=== PATIENT | male | born 1965 | race Caucasian/White ===

== ENCOUNTER 2017-11-21 07:10 | Inpatient (IN) | payer MEDICAID, SELFPAY ==
[2017-11-21] VITALS (30 sets, daily range): BP systolic 102–178; BP diastolic 50–126; PULSE 73–110; RESP 14–24; TEMP 36.2–36.7; O2SAT 95–100; BMI 32.4; BMI 33.5; BMI 33.6; BMI 32.3
--- NOTE | 2017-11-21 07:19 | EKG12_ITS ---
Test Reason : REPEAT-CP Blood Pressure : / mmHG Vent. Rate : 110 BPM Atrial Rate : 110 BPM P-R Int : 156 ms QRS Dur : 086 ms QT Int : 342 ms P-R-T Axes : 049 007 014 degrees QTc Int : 462 ms Sinus tachycardia Otherwise normal ECG Confirmed by MERRITT ANSARI, ETTA ([id number]), subeditor ANDRE DURAN ([id number]) on 11/25/2017 2:25:28 PM Referred By: VISHAL Confirmed By:ETTA BANG MD
--- NOTE | 2017-11-21 07:20 | EKG12_ITS ---
Test Reason : CP Blood Pressure : / mmHG Vent. Rate : 101 BPM Atrial Rate : 101 BPM P-R Int : 168 ms QRS Dur : 088 ms QT Int : 348 ms P-R-T Axes : 063 010 020 degrees QTc Int : 451 ms Sinus tachycardia Otherwise normal ECG Confirmed by MERRITT ANSARI, ETTA ([id number]), state editor ANDRE DURAN ([id number]) on 11/25/2017 2:25:56 PM Referred By: VISHAL Confirmed By:ETTA BANG MD
[2017-11-21] MEDS: 0.9% Normal Saline 1,000 ML 1000 ML IV (07:26)
--- NOTE | 2017-11-21 07:28 | RAD_ITS ---
STUDY: X-RAY CHEST REASON FOR EXAM: Male, 51 years old. Chest pain since last night TECHNIQUE: Single AP portable view of the chest. COMPARISON: None. FINDINGS: There are superimposed monitor leads. There is no demonstrated pneumothorax. The lungs are clear and expanded. There is no demonstrated pleural abnormality. Normal size heart. Normal mediastinum and bud. Normal visualized pulmonary arteries. Normal visualized aortic arch and descending thoracic aorta. Normal visualized thoracic spine. Normal visualized ribs, clavicles, and shoulders. There is no demonstrated abnormality of the visualized soft tissue structures of the upper abdomen. RAD/Chest 1 View (Portable) IMPRESSION: No pulmonary edema, congestive heart failure or confluent pneumonia. Electronically Signed: Fabiola Lund MD at 7:48 EDT , Service support ,
--- NOTE | 2017-11-21 07:32 | ED.VISSUMM ---
- ER Visit Summary Date of Service: 11/21/17 Chief Complaint: Chest pain History of Present Illness: The patient is a [address] Rowdy Davies. He reports that he does not have a primary care physician at this time. Patient reports that 11 PM yesterday while watching TV he had the onset of a left-sided chest pain. Is a continuous sharp pain that is 10 out of 10 in severity. Radiates into his scapula and up into his neck. It it is worsened by laying down or breathing. Is unchanged with exertion. Is relieved by massaging my back. He has been nauseated and short of breath with this. Patient denies any personal or family history of DVT. No recent travel. No ankle swelling or calf pain. Does report that he had 5 or 6 episodes of diarrhea yesterday. No blood in his stools or black tarry stools. Physical Examination: Vitals: Stable. Afebrile. General: Well-nourished and well-developed. Head: Normocephalic atraumatic. Neck: Supple, no lymphadenopathy. No JVD. Nontender. Cardiovascular: Regular rate and rhythm. No murmurs. Respiratory: No respiratory distress. Clear to auscultation bilaterally. Mild tenderness palpation to the left side of his chest that does reproduce his pain. Abdominal: Soft, nontender, nondistended, normal bowel sounds. No guarding, rebound, or peritoneal signs. Back: Nontender. Extremities: Nontender, no edema. Skin: Normal color, no rash. Neurologic: Alert and oriented ?3. Cranial nerves II through XII are intact. Normal strength and sensation. Psych: Normal affect. Test Results: EKG is sinus tachycardia at 101 with half a millimeter of ST elevation in leads I and aVL and V6. This is similar to prior EKGs in 2016 and 2017. He is normal. Chem-7 is more for sodium 134, CO2 20, BUN of 27, creatinine 1.70, glucose 112. Blood alcohol level 0. Troponin is 2.23. Emergency Department Course and Treatment: Patient had taken aspirin at home prior to arrival. He was given a dose of morphine and Zofran IV. He was given a GI cocktail. He was given sublingual nitroglycerin and his pain has improved. Treatment Plan: Patient was discussed with Dr. Martin. He asked that we hold off on giving him heparin or Brilinta at this time. He is going to be taken to the [facility] for further evaluation. Disposition: Admitted in serious condition. Impression: 1. Atypical chest pain. 2. Non-ST elevation PR. 3. STEPHEN score of 2. This note was generated with [employer] dictation software. It may contain incorrect words, spelling, and punctuation that were not noted in review of the chart prior to signing ED Disposition - Plan for ED Patient: Chief Complaint: Chest Pain Referrals: Desmond Tejeda MD [NON-STAFF] -
--- NOTE | 2017-11-21 07:36 | ED.DCSUM_ITS ---
- ER Visit Summary Date of Service: 11/21/17 Chief Complaint: Chest pain History of Present Illness: The patient is a [address] Rowdy Davies. He reports that he does not have a primary care physician at this time. Patient reports that 11 PM yesterday while watching TV he had the onset of a left-sided chest pain. Is a continuous sharp pain that is 10 out of 10 in severity. Radiates into his scapula and up into his neck. It it is worsened by laying down or breathing. Is unchanged with exertion. Is relieved by massaging my back. He has been nauseated and short of breath with this. Patient denies any personal or family history of DVT. No recent travel. No ankle swelling or calf pain. Does report that he had 5 or 6 episodes of diarrhea yesterday. No blood in his stools or black tarry stools. Physical Examination: Vitals: Stable. Afebrile. General: Well-nourished and well-developed. Head: Normocephalic atraumatic. Neck: Supple, no lymphadenopathy. No JVD. Nontender. Cardiovascular: Regular rate and rhythm. No murmurs. Respiratory: No respiratory distress. Clear to auscultation bilaterally. Mild tenderness palpation to the left side of his chest that does reproduce his pain. Abdominal: Soft, nontender, nondistended, normal bowel sounds. No guarding, rebound, or peritoneal signs. Back: Nontender. Extremities: Nontender, no edema. Skin: Normal color, no rash. Neurologic: Alert and oriented ?3. Cranial nerves II through XII are intact. Normal strength and sensation. Psych: Normal affect. Test Results: EKG is sinus tachycardia at 101 with half a millimeter of ST elevation in leads I and aVL and V6. This is similar to prior EKGs in 2016 and 2017. He is normal. Chem-7 is more for sodium 134, CO2 20, BUN of 27, creatinine 1.70, glucose 112. Blood alcohol level 0. Troponin is 2.23. Emergency Department Course and Treatment: Patient had taken aspirin at home prior to arrival. He was given a dose of morphine and Zofran IV. He was given a GI cocktail. He was given sublingual nitroglycerin and his pain has improved. Treatment Plan: Patient was discussed with Dr. Martin. He asked that we hold off on giving him heparin or Brilinta at this time. He is going to be taken to the [facility] for further evaluation. Disposition: Admitted in serious condition. Impression: 1. Atypical chest pain. 2. Non-ST elevation ME. 3. STEPHEN score of 2. This note was generated with [employer] dictation software. It may contain incorrect words, spelling, and punctuation that were not noted in review of the chart prior to signing ED Disposition - Plan for ED Patient: Chief Complaint: Chest Pain Referrals: Desmond Tejeda MD [NON-STAFF] -
[2017-11-21] MEDS: Morphine 4 MG/ML Syringe IV (07:39)
[2017-11-21] MEDS: Ondansetron 4 MG/2 ML Vial IV (07:39)
[2017-11-21 07:41] LABS: Absolute Lymphocyte Count 2.51 X10^3/ul (0.83-4.51); Absolute Neutrophil Count 5.6 X10^3/uL (2.0-7.7); Basophil# 0.02 X10^3/uL; Basophil% 0.2 % (0-1); Eosinophil# 0.17 X10^3/uL; Eosinophils% 1.9 % (0-5); Lymphocyte # 2.51 X10^3/ul (4.0); Lymphocyte % 27.5 % (19-41); Mean Platelet Vol. 9.5 fl (6.2-12.0); Monocyte# 0.79 X10^3/uL; Monocyte% 8.6 % (0-10); Neutrophil # 5.63 X10^3/uL (2.7-7.7); Neutrophil % 61.6 % (47-70); POSITIVE COUNT NO; POSITIVE DIFFERENTIAL NO; POSITIVE MORPHOLOGY NO; Platelet Count 228 K/mm3 (150-450); RBC Distribution Width CV 12.4 % (11.6-14.6); Red Blood Count 5.23 M/mm3 (4.6-6.2); White Blood Count 9.1 K/mm3 (4.4-11.0)
[2017-11-21 07:42] LABS: Hemoglobin 15.8 g/dl (13.0-16.5); Mean Corp Hgb Conc 35.1 g/gl (32-36); Mean Corpuscular Hgb 30.2 pg (27.0-32.0)
--- NOTE | 2017-11-21 07:42 | ED.RN ---
PT STATES HE TOOK [address] RODGERS NOTIFIED AND INSTRUCTED TO NOT GIVE ORDERED DOSE/
--- NOTE | 2017-11-21 07:52 | ED.RN ---
LAB CALLED TROPON[facility] 2.230. DR MARIN
[2017-11-21 07:53] LABS: Alcohol, Blood (Medical)-Serum < 3.0 mg/dL; Anion Gap 11 (5-15); BUN 27 mg/dL (7-18); BUN/Creat Ratio 15.9 RATIO (10-20); Calcium,Total 9.5 mg/dL (8.5-10.1); Chloride 103 mmol/L (98-107); EST Glomerular Filtration Rate 45 mL/min (>60); Est Glom Filt Rate - Afr Amer 55 mL/min (>60); Estimated Creatinine Clearance 53.68 ml/min; Glucose 112 mg/dL (74-106); Potassium 4.2 mmol/L (3.5-5.1); Sodium Level 134 mmol/L (136-145)
[2017-11-21 08:10] LABS: Erythrocyte Sedimentation Rate 13 mm/hr (0-20)
[2017-11-21 08:37] LABS: D-Dimer Quantitative (DVT/PE) < 0.27 FEU/ug/m (0.27-0.49)
--- NOTE | 2017-11-21 09:37 | CL.I_ITS ---
Patient Name: BETHANY MONTALVO Study Date: 11/21/2017 Performing: Chris Martin MD Ht: 70.07 inches 178 cm : 1965 Wt: 227.08 lbs 103 kg Age: 51 Gender: male BSA: 2.2 PROCEDURE(S) PERFORMED UT83-YQS/COR/LV IK36-MGU W OR WO PTCA, SINGLE CORONARY ARTERY CLINICAL PROFILE AND CO-MORBIDITIES Patient presents with NSTEMI for urgent cardiac cath Indications: ACS <= 24 hrs, Worsening Angina, Suspected CAD Heart Failure: None Stress/Imaging Stress/Image Study Performed: No Angina Classification Anginal Classification w/in 2 Weeks: No symptoms CAD Presentations: Unstable angina. Non-STEMI. Symptom onset Date/Time: 11/20/2017 22:00:00 Time Estimated Comorbidities/Risk Factors: Hypertension Dyslipidemia Family History of Premature CAD CONCLUSIONS Single vessel CAD of the occluded LCX most likely source of pt's chest pain. Normal LV size, wall motion,and systolic function Elevated Left Ventricular End Diastolic Pressure Successful PTCA/JUSTIN of the of occluded mid LCX with thrombectomy; utilizing a 2.5 x 12 Promus Synergy stent; 100%-->0%, no dissection. Pt had delayed presentation of chest pain with symptoms more c/w pericarditis. ST elevation on prese nting ECG was diffuse and did not reach criteria for STEMI alert. No reciprical changes on ECG. RECOMMENDATIONS Referred for immediate PCI Highly recommend quitting all tobacco products Follow up with primary deck mechanic Risk factor modification ASA Indefinitley Plavix for at least 12 months Routine post interventional care Refer for Outpatient Cardiac Rehab Manual sheath removal per protocol Follow up with Dr. Mario Becker for at least 12 months DESCRIPTION OF PROCEDURE The patient arrived to the procedure lab. The risks and benefits of the procedure as well as a full d escription of our services here and lack of surgical backup were fully explained to the patient and/o r their significant other prior to the catheterization. The Timeout was completed, verifying the ignacia ect patient and procedure. The patient's procedural site was prepped and draped in the usual fashion. Local anesthetic was given subcutaneously to right groin region with Lidocaine 2%. Using a modified Seldinger technique, arterial access was obtained via the right femoral artery, a 4Fr sheath was inse rted. Left Coronary Artery selective angiography was performed in multiple views using a 4 Fr. JL5 c atheter. Right Coronary Artery selective angiography was then performed in multiple views using a 4 F r. 3DRC catheter. Left Ventriculography was performed in OCAMPO projection using a 4 Fr. Pigtail cathete r. LV to AO pullback pressures were then recordedThe images were reviewed and options discussed. A de cision was then made to proceed with an Intervention, IVUS or other adjunct procedure. Arterial sheath was exchanged for a 6 Fr Sheath EBU 3.75 Guide catheter was inserted and engaged into the LCA. Runthrough Guide wire was advanced to the Circumflex. [place] AP inserted Pass # 1 [place] AP Removed PTCA balloon inflated at 8 atms for 10 secs Angiogram performed post balloon dilatation. Ang iogram performed post stent deployment.. Contrast was injected through the sheath and the Right Iliac and Femoral artery were assessed for possible closure device.. The arterial sheath was pulled and a Mynx closure device was deployed for hemostasis. CORONARY ANGIOGRAPHY DOMINANCE: Right Dominant LEFT HEART ASSESSMENT Left Ventricular Ejection Fraction: by LV Gram 60 % Normal Left Ventricular systolic function Elevated Left Ventricular End Diastolic Pressure Normal LV wall motion LEFT MAIN: Angiographically normal LEFT ANTERIOR DECENDING ARTERY: Mild luminal irregularities less than 30% CIRCUMFLEX ARTERY: MID CIRC: is occluded RIGHT CORONARY ARTERY: No significant disease noted INTERVENTION INFORMATION LESION SITE: Circumflex (Mid) Lesion Complexity: High/C, lesion at bifurcation: No, thrombus present: Yes, lesion length: 12 mm, cu lprit lesion: Yes Pre Stenosis: 100 % Pre intervention STEPHEN flow: 0 PROCEDURE: Thrombectomy, Drug Eluting Stent with pre dilatation. Post Stenosis: 0 % Post intervention STEPHEN flow: 3 Lesion Devices: Terumo .014 Runthrough Extra Floppy 180cm straight Medtronic 6 Fr EBU3.75 100cm Guide Catheter Medtronic 6 Fr. [place] AP Aspiration Catheter Ki Sci EMERGE MR 2.00x08 BALLOON Ki Sci Synergy MR JUSTIN 2.50x12 COMPLICATIONS No Complications PROCEDURE MEDICATIONS Oxygen: 2 L/min via nasal cannula Brilinta 180 mg PO @ 11/21/2017 08:53:52 Heparin 6000 unit(s) IV 11/21/2017 08:53:45 Nitro 200 mcg IC 11/21/2017 08:59:17 Nitro 200 mcg IC 11/21/2017 08:59:17 IV Bolus: .9 NaCl 700 ml total 11/21/2017 09:19:23 IV Fluids: .9 NaCl increased to WO ml/hr 11/21/2017 08:48:19 IV Fluids: .9 NaCl decreased to 150 ml/hr 11/21/2017 09:19:36 SUMMARY OF HEMODYNAMIC DATA Time AIR REST ECG 08:36:31 AO 89/70 (78) SA 08:47:33 AO 111/78 (93) 08:55:13 LV 133/-11, 24 09:10:38 LV 133/-13, 21 09:10:45 LVp 134/-11, 23 09:10:52 AOp 118/72 (91) 09:10:58 Signed By Chris Martin MD On 11/21/2017 09:36:56 Chris Martin MD
[2017-11-21 09:51] LABS: ACT Activated Clotting Time 202 sec (74-137)
--- NOTE | 2017-11-21 09:56 | EKG12_ITS ---
Test Reason : Blood Pressure : / mmHG Vent. Rate : 092 BPM Atrial Rate : 092 BPM P-R Int : 156 ms QRS Dur : 084 ms QT Int : 368 ms P-R-T Axes : 047 -08 016 degrees QTc Int : 455 ms Normal sinus rhythm Inferior infarct , age undetermined Abnormal ECG Confirmed by MERRITT ANSARI, ETTA ([id number]), editor book ANDRE DURAN ([id number]) on 11/25/2017 2:39:30 PM Referred By: AKBAR Confirmed By:ETTA BANG MD
[2017-11-21 10:09] LABS: Hematocrit 39.3 % (40-54); Hemoglobin 13.6 g/dl (13.0-16.5); Mean Corp Hgb Conc 34.6 g/gl (32-36); Mean Corpuscular Hgb 30.6 pg (27.0-32.0); Mean Corpuscular Volume 88.3 fL (80-94); Mean Platelet Vol. 9.4 fl (6.2-12.0); Platelet Count 117 K/mm3 (150-450); RBC Distribution Width CV 12.7 % (11.6-14.6); RBC Distribution Width SD 40.8 fl (35.1-43.9); Red Blood Count 4.45 M/mm3 (4.6-6.2); White Blood Count 10.2 K/mm3 (4.4-11.0)
[2017-11-21 10:11] LABS: Scan Indicated on CBC? Y/N NO
[2017-11-21 10:41] LABS: CPK Total, Creatine Kinase 1763 U/L (39-308)
[2017-11-21] MEDS: TICAGRELOR 90 MG TABLET 180 MG PO (10:57)
--- NOTE | 2017-11-21 12:45 | CRPHASE1 ---
Patient Data/Charges Contract Administration Coordinator:: Chris Martin Refer Phase II:: Yes Admit Date:: 11/21/17 Phase II Referral:: [facility] Start Phase II:: after follow up with Contract Administration Coordinator in office Phase I Charge:: Level I - Education Risk Factors/Lifestyle Smoking Status: Current every day smoker Hx Hypertension: Yes Hx Diabetes Mellitus Type 1: No Hx Diabetes Mellitus Type 2: No Hx Metabolic Disorders: Yes Hx Obesity: Yes Height: 1.78 m Weight:: 102.058 kg BMI: 32.3 Stress: Recent, Work-related ETOH: Yes Risk Factor for Sedentary Lifestyle: Highest Risk Family History: Heart Disease Phase I Education Given On:: [place], Nutrition, Antiplatelet medication, CHF, Smoking cessation Issues Affecting Care:: None Knowledge of Condition:: Yes Learning Preferences: Verbal, Written, Audio/Visual, Demonstration Hospital Course Presenting Symptoms:: Left chest, shoulder ache/pain. Medical/Surgical History Hypertension:: Yes Dyslipidemia:: Yes
--- NOTE | 2017-11-21 12:51 | CRPHASE1_ITS ---
Patient Data/Charges Clinical Biostatistics Director:: Chris Martin Refer Phase II:: Yes Admit Date:: 11/21/17 Phase II Referral:: [facility] Start Phase II:: after follow up with Clinical Biostatistics Director in office Phase I Charge:: Level I - Education Risk Factors/Lifestyle Smoking Status: Current every day smoker Hx Hypertension: Yes Hx Diabetes Mellitus Type 1: No Hx Diabetes Mellitus Type 2: No Hx Metabolic Disorders: Yes Hx Obesity: Yes Height: 1.78 m Weight:: 102.058 kg BMI: 32.3 Stress: Recent, Work-related ETOH: Yes Risk Factor for Sedentary Lifestyle: Highest Risk Family History: Heart Disease Phase I Education Given On:: [place], Nutrition, Antiplatelet medication, CHF, Smoking cessation Issues Affecting Care:: None Knowledge of Condition:: Yes Learning Preferences: Verbal, Written, Audio/Visual, Demonstration Hospital Course Presenting Symptoms:: Left chest, shoulder ache/pain. Medical/Surgical History Hypertension:: Yes Dyslipidemia:: Yes
--- NOTE | 2017-11-21 12:53 | CRPH1.INST_ITS ---
General Education CAD and cardiac anatomy and function:: Patient communicates acknowledgment, Needs reinforcement Explanation of diagnoses and procedures:: Patient communicates acknowledgment, Needs reinforcement Sign/Symptoms of LA:: Patient communicates acknowledgment, Needs reinforcement Antiplatelet therapy: Patient communicates acknowledgment, Needs reinforcement Proper use of NTG-SL: Patient communicates acknowledgment, Needs reinforcement Emergency procedures and activation of EMS: Patient communicates acknowledgment , Needs reinforcement Compliance of all prescribed medications: Patient communicates acknowledgment, Needs reinforcement Smoking Patient Nicotine/Smoking Risk Factors Are:: Cigarettes Recommendations Include:: Smoking cessation strategies/Smoking packet, Second- hand smoke recommendation, Participation in a smoking cessation program Nicotine/Smoking Response Code:: Patient communicates acknowledgment, Needs reinforcement Dyslipidemia Patient Dyslipidemia Risk Factors Are:: Total Cholesterol, Triglycerides, HDL, LDL Recommendations Include:: Lipid profile not available, Reviewed NCEP/ATP guidelines, Therapeutic Lifestyle Change dietary guidelines Dyslipidemia Response Code:: Patient communicates acknowledgment, Needs reinforcement Overweight/Obesity Patient Overweight/Obesity Risk Factors Are:: Obesity - > or = 30 Recommendations Include:: Weight loss of 5-10%, Reduced calorie diet, Exercise 5 -7 times/week Overweight/Obesity:: Patient communicates acknowledgment, Needs reinforcement Hypertension Recommendations Include:: Maintain BP <130/85, DASH dietary guidelines, Decrease /maintain normal body weight, Moderation of ETOH Hypertension:: Patient communicates acknowledgment, Needs reinforcement Heart Disease Patient Heart Disease Risk Factors Are:: Family history of heart disease < 65 years old Recommendations Include:: Educated family members of their risk, Educated family members of importance of prevention of heart disease Heart Disease Response Code:: Patient communicates acknowledgment, Needs reinforcement Diabetes Patient Diabetes Risk Factors Are:: No documented hx of diabetes Metabolic Syndrome Patient Metabolic Syndrome Risk Factors Are [3 of 5]:: Waist circumference > 35 [female] or 40 [male], High triglyceride >150, Hypertension, Low HDL <40 [ male] or < 50 [female] Recommendations Include:: Reinforce compliance to risk factor modifications, Encouraged follow-up with Primary Care Physician Metabolic Syndrome Response Code:: Patient communicates acknowledgment, Needs reinforcement Sedentary Patient Sedentary Risk Factors Are:: Lack of regular exercise Recommendations Include:: Aerobic exercise 5-7 times/week for 20-30 minutes continuously, Benefits of regular exercise, Discussed home walking program, Monitored Outpatient Cardiac Rehab Sedentary Response Code:: Patient communicates acknowledgment, Needs reinforcement Stress Recommendations Include:: Identification of stressors, and assessment of coping skills, Stress management techniques Stress Response Code:: Patient communicates acknowledgment, Needs reinforcement
--- NOTE | 2017-11-21 13:03 | HP.PCM_ITS ---
Problem List (1) NSTEMI (non-ST elevated myocardial infarction) Status: Acute (2) Obesity (BMI 30.0-34.9) Status: Chronic (3) Hyperlipidemia Status: Chronic Qualifiers: Hyperlipidemia type: unspecified Qualified Code(s): E78.5 - Hyperlipidemia , unspecified (4) Hypertension Status: Chronic Qualifiers: Hypertension type: essential hypertension Qualified Code(s): I10 - Essential (primary) hypertension (5) Chest pain Status: Acute Qualifiers: Chest pain type: unspecified Qualified Code(s): R07.9 - Chest pain, unspecified (6) Depression Status: Chronic Qualifiers: Depression Type: unspecified Qualified Code(s): F32.9 - Major depressive disorder, single episode, unspecified History of Present Illness Date of Admission: 11/21/17 Chief Complaint: Chest pain - 1 day The patient is a 51 year old male with past medical history of hypertension, hyperlipidemia, positive family history of CAD(mother, father, brother), depression comes in with complaints of chest pain since the night before admission. Patient states he was in his usual state of health and was watching TV when at 11 PM prior to admission, he had sudden onset of abdominal discomfort that was associated with some nausea and radiated to his left shoulder and interscapular region. This was described as pressure, not associated with diaphoresis or dizziness or palpitation. This abdominal discomfort seem to be worse when he lies down or take in deep breaths. It seems to get better when he massaged the shoulders. It got worse with exertion. He it persisted the whole night and he came to the ED. His vitals in the ED showed blood pressure 140/113, heart rate of 105, respiratory 24, temperature 97.2. Admitting blood work was remarkable for white cell count 1, Hb 16.8, platelet of 228. His d-dimer was less than 0.27. His sodium was 134, potassium 142, chloride 102, bicarbonate 20, anion gap is 11 , BUN was 27, creatinine is 1.72 (appears to be his baseline). EKG showed mild ST segment elevations in Lead I, II, aVL, V5 and V6. Initial troponin was 2.23. He was seen by cardiology and sent to the cardiac cath. Findings during the cardiac cath showed occluded nondominant left circumflex, thrombectomy was done, EF was normal, patient received a JUSTIN. Patient was seen post cardiac cath in the ICU. He looks depressed, admits to depression and is on Lexapro 10 mg p.o. daily, he follows up with Dr. Machuca in the counseling center. Past Medical History Past Medical History (Chronic Problems): Chronic Problems Depression (Chronic) Obesity (BMI 30.0-34.9) (Chronic) Hyperlipidemia (Chronic) Hypertension (Chronic) Alcohol abuse (Chronic) Allergies pseudoephedrine Adverse Reaction (Verified 11/21/17 07:16) Other CAUSES PROSTATE TO ENLARGE AND UNABLE TO URINATE Home Medications: Ambulatory Orders Medication Instructions Recorded Metoprolol Tartrate [Lopressor 50 mg PO BID 06/17/14 (beta mandy)] Omeprazole [Prilosec] 20 mg PO DAILY 06/17/14 Aspirin [Adult Low Dose Aspirin EC] 81 mg PO DAILY 06/17/16 Cyclobenzaprine [Flexeril] 10 mg PO PRN PRN 06/17/16 Losartan/Hydrochlorothiazide 1 each PO DAILY 06/17/16 [Losartan-Hctz 100-25 mg Tab] Nitroglycerin [Nitrostat] 0.4 mg SUBLINGUAL Q5M PRN 03/14/17 Amino Acids 700 mg PO 11/21/17 Atorvastatin Calcium 40 mg PO DAILY 11/21/17 L.acidoph,Paracasei, B.lactis 1 each PO 11/21/17 [Probiotic] Melatonin [Melatin] 3 mg PO 11/21/17 Surgical History: no surgical history Psychiatric History: No pertinent psych hx Smoking Status: Current every day smoker - *Family History Paternal History Items: Heart Disease - MD before age 55yrs Maternal History Items: Heart Disease - MD before age 55yrs Review of Systems Constitutional: Denies: Anorexia, Chills, Fever, Night Sweats, Malaise, Weakness , Weight Change Eyes: Denies: Blurred vision, Cataracts, Conjunctivae Inflammation, Pain, Redness HEENT: Denies: Difficulty Hearing, Difficulty Swallowing, Head Aches, Hearing Changes, Sinus Congestion, Sinus Drainage Cardiovascular: Reports: Chest Pain, Chest Pressure, Chest Tightness, Light Headedness. Denies: Orthopnea, Palpitations, Paroxysmal Noc. Dyspnea Respiratory: Reports: Shortness of Breath, Shortness of breath at rest, Shortness of breath upon exertion. Denies: Cough, Hemoptysis, Pleuritic Pain, Sputum production Gastrointestinal: Reports: Nausea. Denies: Abdominal Pain, Constipation, Hematemesis, Melena, Vomiting Genitourinary: Denies: Dysuria, Frequency, Incontinence Musculoskeletal: Denies: Arm Pain, Joint Pain, Joint stiffness, Joint swelling, Joint Tenderness Skin: Denies: Dryness, Jaundice, Rash, Wounds Neurological: Denies: Balance problems, Blurred vision, Difficulty swallowing, Focal weakness, Numbness, Tingling Psychiatric: Denies: Anxiety, Depression, Homicidal Ideations, Suicidal Ideations Hematologic/ Lymphatic: Denies: Easy Bruising, Easy Bleeding VTE Information - Inpt Only VTE Present on Admission: No VTE Pharm Prophylaxis ordered?: Yes Patient Problems: Active and Suspected Problems NSTEMI (non-ST elevated myocardial infarction) (Acute) - Physical Exam General: Alert, Oriented x3, Cooperative HEENT: Atraumatic, PERRLA, EOMI, Normocephalic Neck: Supple, No JVD, Negative Carotid Bruits Lungs: Clear to auscultation, Normal air movement Cardiovascular: Regular rate, No murmurs Abdomen: Bowel Sounds Present, Soft, Non Tender Extremities: No edema, Capillary Refill Less than 3 Seconds Skin: No rashes, No breakdown Musculoskeletal: No Tenderness to Palpation of Joints or Extremities Neurological: Cranial nerves II-XII grossly intact Psych/Mental Status: Normal Affect, Appropriate Vital Signs Temp Pulse Resp BP Pulse Ox 97.8 F 86 17 124/86 H 100 11/21/17 10:00 11/21/17 11:00 11/21/17 11:00 11/21/17 11:00 11/21/17 11:00 Oxygen Delivery Method Room Air Weight: 102.058 kg Body Mass Index (BMI) 33.5 Laboratory Tests Past 24 Hrs 11/21/17 11/21/17 10:05 10:05 WBC 10.2 RBC 4.45 L Hgb 13.6 Hct 39.3 L MCV 88.3 MCH 30.6 MCHC 34.6 RDW 12.7 RDW Differential 40.8 Plt Count 117 L MPV 9.4 Total Creatine Kinase 1763 H Assessment/Plan Active and Suspected Problems NSTEMI (non-ST elevated myocardial infarction) (Acute) 51 year old male with past medical history of hypertension, hyperlipidemia, positive family history of CAD(mother, father, brother), depression comes in with complaints of chest pain since the night before admission. 1. Acute NSTEMI, STEPHEN score of 5, status post cardiac cath, findings were occluded nondominant left circumflex artery, status post thrombectomy and JUSTIN, EF was normal, stable vitals, on aspirin, Brilinta, statins, mandy, EMILY inhibitor, managed currently in ICU per protocol, cardiology consulted, following, lipid profile and HbA1c in the morning. 2. Hypertension, controlled, continue on beta-mandy, EMILY inhibitor, hold home Losartan and hydrochlorothiazide 3. Hyperlipidemia, on statins, lipid profile in a.m. 4. Depression, patient appears to present with a flat affect, patient follows up with Dr. Machuca in the outpatient, on Lexapro 10 mg p.o. daily, will increase to 20 mg p.o. daily, pastoral care consult. 5. Obesity, diet and exercise recommended 6. Chronic nicotine use disorder, he smokes less than half a pack a day, smoking cessation recommended, will put on replacement with patch and gum as needed 7. DVT prophylaxis with Lovenox subcu Code Visit Inpatient E&M: 46754 Init Hosp L3
[2017-11-21] MEDS: Metoprolol Tartrate 25 MG Tablet 12.5 MG PO ×2 (14:44→21:41)
[2017-11-21] MEDS: Lisinopril 5 MG Tablet PO (14:45)
[2017-11-21 15:13] LABS: Hemoglobin A1c 5.6 % (4.2-6.3)
[2017-11-21 15:28] LABS: Hematocrit 39.2 % (40-54); Hemoglobin 13.4 g/dl (13.0-16.5); Mean Corp Hgb Conc 34.2 g/gl (32-36); Mean Corpuscular Hgb 30.5 pg (27.0-32.0); Mean Corpuscular Volume 89.1 fL (80-94); Mean Platelet Vol. 9.4 fl (6.2-12.0); Platelet Count 111 K/mm3 (150-450); RBC Distribution Width CV 12.9 % (11.6-14.6); RBC Distribution Width SD 41.7 fl (35.1-43.9); White Blood Count 7.7 K/mm3 (4.4-11.0)
[2017-11-21 15:33] LABS: Scan Indicated on CBC? Y/N NO
--- NOTE | 2017-11-21 15:51 | CHAPLAIN ---
Type of Pastoral Visit _x__ Initial Visit ___ Follow-up Visit ___ On-call Visit ___ General Patient Visit ___ Spiritual Assessment ___ Family Conference ___ Bereavement ___ Rapid Response ___ Code Blue ___ Other (describe below) Pastoral Care Referral From _x__ Patient ___ Family _x__ Nurse ___ Physician ___ Ear Nose Throat Physician ___ Lpn Medical Assistant ___ Other (describe below) Sacrament/Intervention _x__ Active listening ___ Anointing ___ Christianity ___ Bereavement ___ Communion ___ Christi exploration ___ _x__ Life review _x__ Prayer ___ Reconciliation ___ Sacrament of Sick _x__ Supportive presence ___ Wedding ___ Other (describe below) Pastoral Comments patient has exhibited high anxiety according to RN; RN asked pt if he would be willing to talk with the industrial plant custodian; patient agreed
[2017-11-21 16:07] LABS: CPK Total, Creatine Kinase 2160 U/L (39-308)
--- NOTE | 2017-11-21 16:38 | CASEMGMT ---
DC PLAN: home on discharge. F/U with PCP. Pritesh TSANGN RN ACM
[2017-11-21] MEDS: Escitalopram Oxalate 20 MG Tablet PO (18:01)
[2017-11-21] MEDS: MELATONIN 3 MG TABLET PO (21:41)
[2017-11-21] MEDS: TICAGRELOR 90 MG TABLET PO (21:41)
[2017-11-21] MEDS: Atorvastatin Calcium 80 MG Tablet PO (21:41)
[2017-11-21 22:09] LABS: Hematocrit 39.8 % (40-54); Hemoglobin 13.6 g/dl (13.0-16.5); Mean Corp Hgb Conc 34.2 g/gl (32-36); Mean Corpuscular Hgb 30.6 pg (27.0-32.0); Mean Corpuscular Volume 89.4 fL (80-94); Mean Platelet Vol. 9.7 fl (6.2-12.0); Platelet Count 118 K/mm3 (150-450); RBC Distribution Width SD 42.4 fl (35.1-43.9); Red Blood Count 4.45 M/mm3 (4.6-6.2); White Blood Count 8.3 K/mm3 (4.4-11.0)
[2017-11-21 22:10] LABS: Scan Indicated on CBC? Y/N NO
[2017-11-21 22:36] LABS: CPK Total, Creatine Kinase 1415 U/L (39-308)
[2017-11-22] VITALS (21 sets, daily range): BP systolic 89–139; BP diastolic 66–85; PULSE 67–91; RESP 14–18; TEMP 36.3–36.8; O2SAT 95–98
[2017-11-22] MEDS: 0.9% NaCl Peripheral Flush Adult/Peds IV (04:06)
[2017-11-22 04:18] LABS: Hemoglobin 13.9 g/dl (13.0-16.5); Mean Corp Hgb Conc 34.8 g/gl (32-36); Mean Corpuscular Hgb 31.2 pg (27.0-32.0); Mean Corpuscular Volume 89.9 fL (80-94); Mean Platelet Vol. 9.8 fl (6.2-12.0); Platelet Count 127 K/mm3 (150-450); RBC Distribution Width CV 12.9 % (11.6-14.6); RBC Distribution Width SD 41.5 fl (35.1-43.9); Red Blood Count 4.45 M/mm3 (4.6-6.2); White Blood Count 8.2 K/mm3 (4.4-11.0)
[2017-11-22 04:20] LABS: Scan Indicated on CBC? Y/N NO
[2017-11-22 04:31] LABS: Anion Gap 9 (5-15); BUN 20 mg/dL (7-18); BUN/Creat Ratio 13.9 RATIO (10-20); Calcium,Total 8.8 mg/dL (8.5-10.1); Chloride 106 mmol/L (98-107); Cholesterol 168 mg/dL (200); Creatinine, Serum 1.44 mg/dL (0.70-1.30); EST Glomerular Filtration Rate 55 mL/min (>60); Est Glom Filt Rate - Afr Amer 67 mL/min (>60); Estimated Creatinine Clearance 63.37 ml/min; Glucose 101 mg/dL (74-106); High Density Lipoprotein 15 mg/dL; Potassium 4.3 mmol/L (3.5-5.1); Sodium Level 139 mmol/L (136-145); Triglycerides 274 mg/dL; Very Low Density Lipoprotein 55 mg/dL (5-40)
--- NOTE | 2017-11-22 07:11 | PN_ITS ---
Patient Problems: Active and Suspected Problems NSTEMI (non-ST elevated myocardial infarction) (Acute) Subjective: Patient was seen and examined. No acute events overnight. Feels improved. Vitals have remained stable. No events on telemetry Objective: Physical Exam General: Alert, Oriented x3, Cooperative, not pale, not jaundiced HEENT: Atraumatic, PERRLA, EOMI, Normocephalic Neck: Supple, No JVD, Negative Carotid Bruits Lungs: Clear to auscultation, Normal air movement Cardiovascular: Regular rate, No murmurs Abdomen: Bowel Sounds Present, Soft, Non Tender Extremities: No edema, Capillary Refill Less than 3 Seconds Skin: No rashes, No breakdown Musculoskeletal: No Tenderness to Palpation of Joints or Extremities Neurological: Cranial nerves II-XII grossly intact Psych/Mental Status: Normal Affect, Appropriate Vitals/I&O's: Vital Signs Temp Pulse Resp BP Pulse Ox 97.9 F 67 14 106/85 H 96 11/22/17 00:00 11/22/17 06:00 11/22/17 06:00 11/22/17 06:00 11/22/17 06:00 Oxygen Delivery Method Room Air Weight: 101.4 kg Body Mass Index (BMI) 33.5 Intake and Output for Last 24 Hours 11/20/17 11/21/17 11/22/17 23:59 23:59 23:59 Intake Total 1640 / 1640 240 / 240 Output Total 1475 / 1475 600 / 600 Balance 165 / 165 -360 / -360 Laboratory Results 11/21/17 10:05: Total Creatine Kinase 1763 H 11/21/17 10:05: WBC 10.2, RBC 4.45 L, Hgb 13.6, Hct 39.3 L, MCV 88.3, MCH 30.6, MCHC 34.6, RDW 12.7, RDW Differential 40.8, Plt Count 117 L, MPV 9.4 11/21/17 10:05: Troponin I 57.40 H* 11/21/17 10:05: Hemoglobin A1c 5.6 11/21/17 15:16: Total Creatine Kinase 2160 H 11/21/17 15:16: WBC 7.7, RBC 4.40 L, Hgb 13.4, Hct 39.2 L, MCV 89.1, MCH 30.5, MCHC 34.2, RDW 12.9, RDW Differential 41.7, Plt Count 111 L, MPV 9.4 11/21/17 15:16: Troponin I 66.90 H* 11/21/17 21:50: Total Creatine Kinase 1415 H 11/21/17 21:50: WBC 8.3, RBC 4.45 L, Hgb 13.6, Hct 39.8 L, MCV 89.4, MCH 30.6, MCHC 34.2, RDW 13.0, RDW Differential 42.4, Plt Count 118 L, MPV 9.7 11/21/17 21:50: Troponin I 39.20 H* 11/22/17 04:05: Sodium 139, Potassium 4.3, Chloride 106, Carbon Dioxide 24.0, Anion Gap 9, BUN 20 H, Creatinine 1.44 H, Estim Creat Clear Calc 63.37, Est GFR (MDRD) Af Amer 67, Est GFR (MDRD) Non-Af 55 L, BUN/Creatinine Ratio 13.9, Glucose 101, Calcium 8.8, Triglycerides 274 H, Cholesterol 168, LDL Cholesterol 98, VLDL Cholesterol 55 H, HDL Cholesterol 15 L 11/22/17 04:05: WBC 8.2, RBC 4.45 L, Hgb 13.9, Hct 40.0, MCV 89.9, MCH 31.2, MCHC 34.8, RDW 12.9, RDW Differential 41.5, Plt Count 127 L, MPV 9.8 Current Medications Aspirin (Ecotrin) 81 mg PO DAILY@0800 [facility] Atorvastatin Calcium (Lipitor) 80 mg PO QHS [facility] Last Admin: 11/21/17 21:41 Dose: 80 mg Atropine Sulfate () 0.5 mg IV UD PRN PRN Reason: HR <50 bpm Diazepam (Valium) 5 mg PO Q6H PRN PRN PRN Reason: BACK SPASMS/ANXIETY Escitalopram Oxalate (Lexapro) 20 mg PO DAILY [facility] Last Admin: 11/21/17 18:01 Dose: 20 mg Lisinopril (Zestril) 5 mg PO DAILY [facility] Last Admin: 11/21/17 14:45 Dose: 5 mg Melatonin (Melatonin) 3 mg PO DAILY@1900 [facility] Last Admin: 11/21/17 21:41 Dose: 3 mg Metoclopramide HCl (Reglan) 5 mg IV Q6 PRN PRN Reason: NAUSEA/VOMITING Metoprolol Tartrate (Lopressor (Beta Kehinde)) 12.5 mg PO BID [facility] Last Admin: 11/21/17 21:41 Dose: 12.5 mg Nicotine (Nicoderm Cq (Pbkc)) 14 mg TRANSDERM. DAILY [facility] Nicotine Polacrilex (Rugby Nicotine (Bkc)) 2 mg PO Q2H PRN PRN PRN Reason: Nicotine Craving Nitroglycerin (Nitrostat) 0.4 mg SUBLINGUAL Q5M PRN PRN Reason: CARDIAC/CHEST PAIN Last Admin: 11/21/17 08:26 Dose: 0.4 mg Pantoprazole Sodium (Protonix) 20 mg PO DAILY [facility] Sodium Chloride () 5 - 30 ml IV UD PRN PRN Reason: SALINE FLUSH Last Admin: 11/22/17 04:06 Dose: 20 ml Sodium Chloride () 500 ml IV BOLUS PRN PRN Reason: VASO-VAGAL PROTOCOL Ticagrelor (Brilinta) 90 mg PO BID [facility] Last Admin: 11/21/17 21:41 Dose: 90 mg Medical Necessity - Tobacco Use Smoking Status: Current every day smoker Assessment/Plan Active and Suspected Problems NSTEMI (non-ST elevated myocardial infarction) (Acute) 51 year old male with past medical history of hypertension, hyperlipidemia, positive family history of CAD(mother, father, brother), depression comes in with complaints of chest pain since the night before admission. 1. Acute NSTEMI, STEPHEN score of 5, status post cardiac cath, findings were occluded nondominant left circumflex artery, status post thrombectomy and JUSTIN, EF was normal, stable vitals, on aspirin, Brilinta, statins, kehinde, EMILY inhibitor, managed currently in ICU per protocol, cardiology consulted, following, lipid profile and HbA1c in the morning. 2. Hypertension, controlled, continue on beta-kehinde, EMILY inhibitor, hold home Losartan and hydrochlorothiazide 3. LUZ MARIA on CKD stage 3, his creatinine appears to be gradually creeping up since 2013, last creatinine was 1.79 in 2017, creatinine improved 1.44 today, to trend this with repeat BMP in a.m. 4. Hyperlipidemia, uncontrolled, triglycerides are 274, total cholesterol 168, LDL 98, HDL is 15, started on statin, will need repeat lipid profile in 6 weeks. 5. Depression, on lexapro 20mg daily 6. Obesity, diet and exercise recommended 7. Chronic nicotine use disorder, on nicotine replacement with patch and gum as needed 8. DVT prophylaxis with Lovenox subcu 9. Disposition: Patient will be kept one more day in ICU under PCU status. Will be possibly discharged tomorrow. Code Visit Inpatient E&M: 95353 Subs Hosp L2
--- NOTE | 2017-11-22 08:26 | ECHOCS_ITS ---
Reason For Study: S/P HI Procedure This was a 2D Doppler, Color Flow transthoracic echocardiogram. Contrast injection was performed. Exam performed portable in ICU/CCU. Left Ventricle Normal size and thickness. The estimated ejection fraction is 60 %. Stage 1 diastolic dysfunction. Posterior-Basal: Mildly hypokinetic. Lateral-Basal: Mildly hypokinetic. Right Ventricle Normal size and thickness. Normal systolic function. Atria Normal left atrium. Normal right atrium. Normal atrial septum. Mitral Valve The mitral valve is structurally normal. No prolapse or stenosis seen. Tricuspid Valve Normal tricuspid valve. Trivial tricuspid valve insufficiency. Right ventricular systolic pressure estimated to be 29 mmHg. Aortic Valve Normal aortic valve. Trisinus/trileaflet aortic valve. Pulmonic Valve Normal pulmonic valve. Trivial pulmonic valve insufficiency. Great Vessels Normal aortic root. Normal arch. Normal inferior vena cava. Inferior vena cava collapse with sniff. Pericardium/Pleural No pericardial effusion. Medication Diluted definity 2.0ml given slow IV push to enhance endocardial definition. MMode/2D Measurements & Calculations LVIDd: 4.5 cm IVSd: 0.98 cm Ao root diam: 2.9 cm LVIDs: 3.3 cm LVPWd: 1.0 cm LA dimension: 3.6 cm RVDd: 3.4 cm FS: 26.9 % LAV(MOD-bp): 46.0 ml LA A4 area: 17.2 cm2 RA A4 area: 13.7 cm2 LAV(MOD-bp) Indexed: 21.0 ml/m2 LAV(MOD-sp2): 43.3 ml LAV(MOD-sp4): 43.1 ml Doppler Measurements & Calculations MV E max henry: 73.6 cm/sec Lat Peak E' Henry: 9.0 cm/sec Med Peak E' Henry: 8.0 cm/sec MV A max henry: 91.6 cm/sec E/E' lat: 8.2 E/E' med: 9.2 MV E/A: 0.80 Ao V2 max: 126.3 cm/sec LV V1 max: 97.2 cm/sec PA V2 max: 106.6 cm/sec Ao max P.4 mmHg LV V1 max P.8 mmHg TR max henry: 239.4 cm/sec TR max P.0 mmHg Interpretation Summary The estimated ejection fraction is 60 %. Stage 1 diastolic dysfunction. Posterior-Basal: Mildly hypokinetic Lateral-Basal: Mildly hypokinetic Trivial tricuspid valve insufficiency. Right ventricular systolic pressure estimated to be 29 mmHg. Compared to echo report dated 03/14/2017, LV function is about the same, with minimal new postero- lateral hypokinesis. Ordering Physician: Chris Martin MD Referring Physician: NO PCP Performed By: Vanessa Bolivar RDCS, RVT
[2017-11-22] MEDS: Escitalopram Oxalate 20 MG Tablet PO (08:56)
[2017-11-22] MEDS: Aspirin E.C. 81 MG Tablet PO (08:56)
[2017-11-22] MEDS: TICAGRELOR 90 MG TABLET PO ×2 (08:56→21:42)
[2017-11-22] MEDS: Metoprolol Tartrate 25 MG Tablet 12.5 MG PO ×2 (08:56→21:42)
[2017-11-22] MEDS: Pantoprazole Sodium 20 MG Tablet PO (08:57)
[2017-11-22] MEDS: Lisinopril 5 MG Tablet PO (08:57)
--- NOTE | 2017-11-22 08:59 | NURSING ---
Echo in progress
--- NOTE | 2017-11-22 09:15 | NURSING ---
PCU called, attempted to give report to [place], will call back
--- NOTE | 2017-11-22 09:29 | CASEMGMT ---
RN CM Note: DC Plan, home. Intro role of CM to patient in room. He is independent, no DME use. Discussed No PCP. Pt states he had been pt of Dr. Tejeda who has moved practice to [place]. PCP list given and questions answered. pt plans to call on dc, but will be f/u with cardiology on discharge. Scarlet TSANGN RN ACM
--- NOTE | 2017-11-22 09:56 | PN.CARD_ITS ---
Subjectve: Patient doing well this morning, no further chest pain. EKG has normalized. Telemetry negative. Right groin is clean/dry/intact. Hemoglobin and creatinine are within nominal limits. Peak troponin 66.9 and trending downwards. Objective: Vital Signs Temp Pulse Resp BP Pulse Ox 97.7 F L 80 18 109/66 95 11/22/17 09:49 11/22/17 09:49 11/22/17 09:49 11/22/17 09:49 11/22/17 09:49 Oxygen Delivery Method Room Air Weight: 223 lb 8.78 oz Body Mass Index (BMI) 33.5 Intake and Output for Last 24 Hours 11/20/17 11/21/17 11/22/17 23:59 23:59 23:59 Intake Total 1640 / 1640 240 / 240 Output Total 1475 / 1475 600 / 600 Balance 165 / 165 -360 / -360 General: Awake, Alert, Oriented x 3 HEENT: PERRL, EOMI, Sclera Non Icteric Neck: Supple, Good ROM, No Lymph Node Enlargement Lungs: Clear to auscultation Cardiovascular: Regular Rhythm, Normal S1, Normal S2, No Murmurs, No Rubs, No Gallops Vascular: No Carotid Bruits, Normal Femoral Pulses, Normal Radial Pulses, Normal Dorsalis Pedal Pulse, Normal Posterior Tibial Pulses Abdomen: Bowel Sounds Present, Soft, Non Tender, No HSM, No Organomegaly Extremities: No Cyanosis, No Clubbing, No edema Neurological: No Focal Motor or Sensory Deficit 11/21/17 10:05: WBC 10.2, RBC 4.45 L, Hgb 13.6, Hct 39.3 L, MCV 88.3, MCH 30.6, MCHC 34.6, RDW 12.7, RDW Differential 40.8, Plt Count 117 L, MPV 9.4 11/21/17 10:05: Troponin I 57.40 H* 11/21/17 10:05: Hemoglobin A1c 5.6 11/21/17 15:16: WBC 7.7, RBC 4.40 L, Hgb 13.4, Hct 39.2 L, MCV 89.1, MCH 30.5, MCHC 34.2, RDW 12.9, RDW Differential 41.7, Plt Count 111 L, MPV 9.4 11/21/17 15:16: Troponin I 66.90 H* 11/21/17 21:50: WBC 8.3, RBC 4.45 L, Hgb 13.6, Hct 39.8 L, MCV 89.4, MCH 30.6, MCHC 34.2, RDW 13.0, RDW Differential 42.4, Plt Count 118 L, MPV 9.7 11/21/17 21:50: Troponin I 39.20 H* 11/22/17 04:05: Sodium 139, Potassium 4.3, Chloride 106, Carbon Dioxide 24.0, Anion Gap 9, BUN 20 H, Creatinine 1.44 H, Est GFR (MDRD) Af Amer 67, Est GFR ( MDRD) Non-Af 55 L, BUN/Creatinine Ratio 13.9, Glucose 101, Calcium 8.8, Triglycerides 274 H, Cholesterol 168, LDL Cholesterol 98, VLDL Cholesterol 55 H , HDL Cholesterol 15 L 11/22/17 04:05: WBC 8.2, RBC 4.45 L, Hgb 13.9, Hct 40.0, MCV 89.9, MCH 31.2, MCHC 34.8, RDW 12.9, RDW Differential 41.5, Plt Count 127 L, MPV 9.8 Rhythm: EKG: ECHO: Pending Stress Test: Cardiac Cath: PCI: CT Surgery: Holter monitor: EPS: PPM: CXR: Chest CT Scan: Medical Necessity - Tobacco Use Smoking Status: Current every day smoker Assessment/Plan 1. Acute coronary syndrome: The patient presented with delayed presentation chest pain starting the night before, had subtle lateral ST segment elevation but did not reach criteria for STEMI, urgent catheterization demonstrated occluded left circumflex and underwent successful thrombectomy and angioplasty and stenting with drug-eluting stent. Peak troponin 66.9 and trending downwards. EKG and telemetry are normal. At this point I recommend continuing aspirin, Brilinta, beta-mandy, EMILY inhibitor. We will obtain a 2D echo with Doppler to document his LV function medially post procedure and repeat this in 3 months time after cardiac rehab. Recommend continuing the patient on telemetry monitoring for 1 more day, and then if there are no arrhythmias will proceed with discharge tomorrow morning. He will follow-up with me going forward. 2. Tobacco cessation: I strongly encouraged the patient to discontinue all tobacco related products. 3. Hyperlipidemia: Continue Lipitor therapy. Repeat lipid profile in 6 weeks time. 4. Thank you very much for the opportunity to participate in the cardiac care of your patient. Code Visit Inpatient E&M: 90435 Subs Hosp L2
--- NOTE | 2017-11-22 09:56 | EKG12_ITS ---
Test Reason : AM EKG Blood Pressure : / mmHG Vent. Rate : 072 BPM Atrial Rate : 072 BPM P-R Int : 154 ms QRS Dur : 082 ms QT Int : 408 ms P-R-T Axes : 060 000 027 degrees QTc Int : 446 ms Normal sinus rhythm Normal ECG When compared with ECG of 21-NOV-2017 09:46, MANUAL COMPARISON REQUIRED, DATA IS UNCONFIRMED Confirmed by MERRITT ANSARI, ETTA ([id number]), editor producer ANDRE DURAN ([id number]) on 11/25/2017 2:39:16 PM Referred By: AKBAR Confirmed By:ETTA BANG MD
[2017-11-22 11:08] LABS: Hematocrit 42.1 % (40-54); Hemoglobin 14.8 g/dl (13.0-16.5); Mean Corp Hgb Conc 35.2 g/gl (32-36); Mean Corpuscular Hgb 31.5 pg (27.0-32.0); Mean Corpuscular Volume 89.6 fL (80-94); Mean Platelet Vol. 9.9 fl (6.2-12.0); Platelet Count 145 K/mm3 (150-450); RBC Distribution Width CV 12.8 % (11.6-14.6); RBC Distribution Width SD 41.7 fl (35.1-43.9); White Blood Count 8.3 K/mm3 (4.4-11.0)
[2017-11-22 11:11] LABS: Scan Indicated on CBC? Y/N NO
[2017-11-22] MEDS: Atorvastatin Calcium 80 MG Tablet PO (21:41)
[2017-11-22] MEDS: MELATONIN 3 MG TABLET PO (21:41)
[2017-11-22] MEDS: diazePAM 5 MG Tablet PO (21:46)
[2017-11-23] VITALS (7 sets, daily range): BP systolic 124–139; BP diastolic 73–85; PULSE 73–112; RESP 18; TEMP 36.2–36.8; O2SAT 97–98
--- NOTE | 2017-11-23 05:55 | EKG12_ITS ---
Test Reason : AM EKG Blood Pressure : / mmHG Vent. Rate : 073 BPM Atrial Rate : 073 BPM P-R Int : 148 ms QRS Dur : 080 ms QT Int : 396 ms P-R-T Axes : 021 -09 058 degrees QTc Int : 436 ms Normal sinus rhythm Normal ECG When compared with ECG of 22-NOV-2017 05:02, MANUAL COMPARISON REQUIRED, DATA IS UNCONFIRMED Confirmed by MERRITT ANSARI, ETTA ([id number]), video news editor ANDRE DURAN ([id number]) on 11/27/2017 2:29:49 PM Referred By: DR WEBBER Confirmed By:ETTA BANG MD
[2017-11-23 07:26] LABS: Anion Gap 6 (5-15); BUN 19 mg/dL (7-18); BUN/Creat Ratio 14.5 RATIO (10-20); Calcium,Total 9.4 mg/dL (8.5-10.1); Chloride 101 mmol/L (98-107); Creatinine, Serum 1.31 mg/dL (0.70-1.30); EST Glomerular Filtration Rate 61 mL/min (>60); Est Glom Filt Rate - Afr Amer 74 mL/min (>60); Estimated Creatinine Clearance 69.66 ml/min; Glucose 99 mg/dL (74-106); Potassium 4.1 mmol/L (3.5-5.1); Sodium Level 136 mmol/L (136-145)
[2017-11-23] MEDS: Aspirin E.C. 81 MG Tablet PO (08:27)
--- NOTE | 2017-11-23 09:09 | DCINST_ITS ---
- Discharge Diagnoses Current Active Problems: Current Active and Chronic Problems NSTEMI (non-ST elevated myocardial infarction) (Acute) Depression (Chronic) Reason(s) for Visit for Discharge Instructions: Chest pain You will use the following diet at home:: Calorie/Carbohydrate Controlled ( specify 1200, 1400, etc) Your food should be the consistency of: Regular Your liquids should be the consistency of: Regular/Thin Discharge Activity: Return to Normal Activity Additional Instructions: Take all your medications as prescribed and follow-up as scheduled. Allergies/Adverse Reactions: Allergies pseudoephedrine Adverse Reaction (Verified 11/21/17 07:16) Other CAUSES PROSTATE TO ENLARGE AND UNABLE TO URINATE Medications to take at Discharge Omeprazole [Prilosec] 20 mg PO DAILY 06/17/14 Aspirin [Adult Low Dose Aspirin EC] 81 mg PO DAILY 06/17/16 Cyclobenzaprine [Flexeril] 10 mg PO PRN PRN 06/17/16 Nitroglycerin [Nitrostat] 0.4 mg SUBLINGUAL Q5M PRN 03/14/17 L.acidoph,Paracasei, B.lactis [Probiotic] 1 each PO 11/21/17 Melatonin [Melatin] 3 mg PO 11/21/17 Atorvastatin Calcium [Lipitor] 80 mg PO QHS #30 tab 11/23/17 Escitalopram Oxalate [Lexapro] 20 mg PO DAILY #30 tab 11/23/17 Lisinopril [Zestril] 5 mg PO DAILY #30 tab 11/23/17 Metoprolol Tartrate [Lopressor (beta mandy)] 12.5 mg PO BID #60 tab 11/23/17 Nicotine [Nicoderm] 14 mg TRANSDERM. DAILY #30 patch 11/23/17 Ticagrelor [Brilinta] 90 mg PO BID #30 tab 11/23/17 The following prescriptions were given: Atorvastatin Calcium [Lipitor] 80 mg PO QHS #30 tab Escitalopram Oxalate [Lexapro] 20 mg PO DAILY #30 tab Lisinopril [Zestril] 5 mg PO DAILY #30 tab Nicotine [Nicoderm] 14 mg TRANSDERM. DAILY #30 patch Metoprolol Tartrate [Lopressor (beta mandy)] 12.5 mg PO BID #60 tab Ticagrelor [Brilinta] 90 mg PO BID #30 tab Primary Care Physician: Desmond Tejeda MD [NON-STAFF] - Please follow up with your Primary Care Physician in: within 2 weeks Please Follow Up With: Chris Martin MD When: within 2 weeks or as scheduled When: Dr. Lewis within 2 weeks Proposed Discharge Date: 11/23/17
[2017-11-23] MEDS: Metoprolol Tartrate 25 MG Tablet 12.5 MG PO (10:10)
[2017-11-23] MEDS: Lisinopril 5 MG Tablet PO (10:11)
[2017-11-23] MEDS: TICAGRELOR 90 MG TABLET PO (10:11)
[2017-11-23] MEDS: Escitalopram Oxalate 20 MG Tablet PO (10:11)
[2017-11-23] MEDS: Pantoprazole Sodium 20 MG Tablet PO (10:11)
--- NOTE | 2017-11-23 10:30 | PCM.DC.SUM ---
Discharge Date and Diagnosis Date of Admission: 11/21/17 Date of Discharge: 11/23/17 - Primary Discharge Diagnosis Active and Suspected Problems NSTEMI (non-ST elevated myocardial infarction) (Acute) Hyperlipidemia - Secondary Discharge Diagnosis Chronic Problems Depression (Chronic) Obesity (BMI 30.0-34.9) (Chronic) Hyperlipidemia (Chronic) Hypertension (Chronic) Alcohol abuse (Chronic) Hospital Course and Treatment Imaging Results: Clinical Impression(s) from Imaging Studies Chest X-Ray 11/21/17 07:28 IMPRESSION: No pulmonary edema, congestive heart failure or confluent pneumonia. Electronically Signed: Fabiola Lund MD at 7:48 EDT , Service support , Cardiology Operations: None Procedures: None Summary of Care Provided: 51 year old male with past medical history of hypertension, hyperlipidemia, positive family history of CAD(mother, father, brother), depression comes in with complaints of chest pain since the night before admission. 1. Acute NSTEMI, STEPHEN score of 5, status post cardiac cath, findings were occluded nondominant left circumflex artery, status post thrombectomy and JUSTIN, EF was normal, stable vitals, on aspirin, Brilinta, statins, kehinde, YOSSI inhibitor, managed initially in ICU per protocol, cardiology consulted/ Patient continued to improve with no events on telemetry in PCU. He was discharged and asked to follow-up with cardiology in the outpatient as scheduled. 2. Hypertension, controlled, on beta-kehinde, YOSSI inhibitor, home Losartan and hydrochlorothiazide discontinued. 3. LUZ MARIA on CKD stage 3, improving, discharge CR was 1.31, will follow-up with PCP. 4. Hyperlipidemia, uncontrolled, triglycerides are 274, total cholesterol 168, LDL 98, HDL is 15, started on statin, will need repeat lipid profile in 6 weeks. 5. Depression, on lexapro 20mg daily 6. Obesity, diet and exercise recommended 7. Chronic nicotine use disorder, on nicotine replacement with patch and gum as needed Discharge Diet: Low fat/ Low Cholesterol, 2000 mg Sodium Diet Discharge Activity: Return to Normal Activity Home Medications: Medications to take at Discharge Omeprazole [Prilosec] 20 mg PO DAILY 06/17/14 Aspirin [Adult Low Dose Aspirin EC] 81 mg PO DAILY 06/17/16 Cyclobenzaprine [Flexeril] 10 mg PO PRN PRN 06/17/16 Nitroglycerin [Nitrostat] 0.4 mg SUBLINGUAL Q5M PRN 03/14/17 L.acidoph,Nati, B.lactis [Probiotic] 1 each PO 11/21/17 Melatonin [Melatin] 3 mg PO 11/21/17 Atorvastatin Calcium [Lipitor] 80 mg PO QHS #30 tab 11/23/17 Escitalopram Oxalate [Lexapro] 20 mg PO DAILY #30 tab 11/23/17 Lisinopril [Zestril] 5 mg PO DAILY #30 tab 11/23/17 Metoprolol Tartrate [Lopressor (beta kehinde)] 12.5 mg PO BID #60 tab 11/23/17 Nicotine [Nicoderm] 14 mg TRANSDERM. DAILY #30 patch 11/23/17 Ticagrelor [Brilinta] 90 mg PO BID #30 tab 11/23/17 Following Prescrptions Were Given to Patient: Atorvastatin Calcium [Lipitor] 80 mg PO QHS #30 tab Escitalopram Oxalate [Lexapro] 20 mg PO DAILY #30 tab Lisinopril [Zestril] 5 mg PO DAILY #30 tab Nicotine [Nicoderm] 14 mg TRANSDERM. DAILY #30 patch Metoprolol Tartrate [Lopressor (beta kehinde)] 12.5 mg PO BID #60 tab Ticagrelor [Brilinta] 90 mg PO BID #30 tab Primary Care Physician: Desmond Tejeda MD [NON-STAFF] - Please follow up with your Primary Care Physician in: within 2 weeks Please Follow Up With: Chris Martin MD When: within 2 weeks or as scheduled When: Dr. Lewis within 2 weeks Disposition: Home Minutes spent on discharge:: 45 Patient Condition:: Stable Medical Necessity - Tobacco Use Smoking Status: Current every day smoker Meaningful Use Info Meaningful Use Diagnoses (Choose all that apply): AMI - AMI Aspirin given w/in 24hrs of arrival?: Yes ASA at discharge?: Yes Statins at discharge?: Yes Yossi/ARB at discharge?: Yes Beta Kehinde at discharge?: Yes Done w/ Acute [place] measure.: Yes Code Visit Inpatient E&M: 87765 Disch Hosp
== END 2017-11-23 12:56 | disposition home or self-care (01) | DRG 116 ==
LOC: ED 07:41 → CLSP 08:18 → ICU 09:15 → CLSP 10:42 → PCU 11-22 09:47
PROVIDERS: Internal Medicine; Admitting Provider Internal Medicine Cardiovascular Disease; Emergency Provider Emergency Medicine; Visit Provider Internal Medicine Cardiovascular Disease
DX: I21.4 Non-ST elevation (NSTEMI) myocardial infarction (principal); N17.9 Acute kidney failure, unspecified; N18.3 Chronic kidney disease, stage 3 (moderate); F10.20 Alcohol dependence, uncomplicated; E66.9 Obesity, unspecified; E78.5 Hyperlipidemia, unspecified; F32.9 Major depressive disorder, single episode, unspecified; F17.210 Nicotine dependence, cigarettes, uncomplicated; I12.9 Hypertensive chronic kidney disease with stage 1 through stage 4 chronic kidney disease, or unspecified chronic kidney disease; K21.9 Gastro-esophageal reflux disease without esophagitis; Y90.0 Blood alcohol level of less than 20 mg/100 ml; Z68.33 Body mass index [BMI] 33.0-33.9, adult; Z79.82 Long term (current) use of aspirin; Z79.899 Other long term (current) drug therapy
CPT/HCPCS: 36415; 71045; 80048; 80061; 80320; 82550; 83036; 84484; 85025; 85027; 85347; 85379; 85652; 86140; 92928; 93005; 93306; 93458; 97802; 99285; C1760; J7030; Q9957; Q9967; A4216; C1725; C1757; C1769; C1887; C1894; C8929; C9600; G0480; J1327; J2405

== ENCOUNTER → 2017-11-26 11:20 | Outpatient (CLI) | payer MEDICAID, SELFPAY ==
[2017-11-21 12:50] VITALS: BMI 32.3
[2017-11-26 13:10] LABS: Anion Gap 8 (5-15); BUN 20 mg/dL (7-18); BUN/Creat Ratio 9.9 RATIO (10-20); Calcium,Total 9.5 mg/dL (8.5-10.1); Chloride 102 mmol/L (98-107); Creatinine, Serum 2.03 mg/dL (0.70-1.30); EST Glomerular Filtration Rate 37 mL/min (>60); Est Glom Filt Rate - Afr Amer 45 mL/min (>60); Glucose 103 mg/dL (74-106); Potassium 4.2 mmol/L (3.5-5.1); Sodium Level 137 mmol/L (136-145)
== END ==
PROVIDERS: Visit Provider Internal Medicine
DX: Z04.8 Encounter for examination and observation for other specified reasons (principal)
CPT/HCPCS: 36415; 80048

== ENCOUNTER → 2017-12-23 20:45 | Emergency (ER) | payer MEDICAID, SELFPAY ==
[2017-11-21 12:50] VITALS: BMI 32.3
--- NOTE | 2017-12-23 20:45 | DT_ITS ---
This patient was seen during an EMR downtime December 23, 2017 - December 30, 2017. This patient may have a combination of paper and electronic documentation or all paper documentation. All documentation is viewable within the e-chart portion of [facility] for each patient visit.
== END | disposition left against medical advice (07) ==
LOC: ED 12-25 14:57
PROVIDERS: Emergency Provider Emergency Medicine
DX: Z53.21 Procedure and treatment not carried out due to patient leaving prior to being seen by health care provider (principal)

== ENCOUNTER 2018-03-19 16:37 | Inpatient (IN) | payer MEDICAID, SELFPAY ==
[2017-11-21 12:50] VITALS: BMI 32.3
[2018-03-19 16:41] VITALS: BP 154/114; PULSE 113; RESP 18; TEMP 35.8; O2SAT 98; BMI 30.5
[2018-03-19 17:37] LABS: Absolute Lymphocyte Count 1.77 X10^3/ul (0.83-4.51); Absolute Neutrophil Count 4.2 X10^3/uL (2.0-7.7); Basophil# 0.01 X10^3/uL; Basophil% 0.1 % (0-1); Eosinophil# 0.18 X10^3/uL; Eosinophils% 2.7 % (0-5); Hematocrit 40.3 % (40-54); Hemoglobin 14.1 g/dl (13.0-16.5); Lymphocyte # 1.77 X10^3/ul (4.0); Lymphocyte % 26.3 % (19-41); Mean Corpuscular Hgb 31.9 pg (27.0-32.0); Mean Corpuscular Volume 91.2 fL (80-94); Mean Platelet Vol. 9.2 fl (6.2-12.0); Monocyte# 0.53 X10^3/uL; Monocyte% 7.9 % (0-10); Neutrophil # 4.24 X10^3/uL (2.7-7.7); Neutrophil % 62.9 % (47-70); Platelet Count 196 K/mm3 (150-450); RBC Distribution Width CV 13.2 % (11.6-14.6); RBC Distribution Width SD 43.8 fl (35.1-43.9); Red Blood Count 4.42 M/mm3 (4.6-6.2); White Blood Count 6.7 K/mm3 (4.4-11.0)
[2018-03-19 17:41] LABS: POSITIVE COUNT NO; POSITIVE DIFFERENTIAL NO; POSITIVE MORPHOLOGY NO
[2018-03-19 17:44] LABS: Anion Gap 12 (5-15); BUN 16 mg/dL (7-18); BUN/Creat Ratio 11.3 RATIO (10-20); Calcium,Total 8.2 mg/dL (8.5-10.1); Chloride 106 mmol/L (98-107); Creatinine, Serum 1.41 mg/dL (0.70-1.30); EST Glomerular Filtration Rate 56 mL/min (>60); Est Glom Filt Rate - Afr Amer 68 mL/min (>60); Glucose 87 mg/dL (74-106); Potassium 4.1 mmol/L (3.5-5.1); Sodium Level 140 mmol/L (136-145)
--- NOTE | 2018-03-19 17:44 | ED.RN ---
PT AMBULATED TO EMS DOOR, STOPPED BY SECURITY AND RESOURCE OFFICER. PT STATED I JUST NEED TO TAKE A CRAP. PT REDIRECTED TO BATHROOM.
[2018-03-19 17:55] LABS: Amphetamine Urine VISTA NEGATIVE (<1000 ng/mL); Barbiturate Urine VISTA NEGATIVE (< 200 ng/mL); Benzodiazepine Urine VISTA NEGATIVE (< 200 ng/mL); Cocaine Urine VISTA NEGATIVE (< 300 ng/mL); Ecstacy Urine VISTA NEGATIVE (< 500 ng/mL); Methadone Urine VISTA NEGATIVE (< 300 ng/mL); PCP Urine VISTA NEGATIVE (< 25 ng/mL); THC Urine VISTA POSITIVE (< 50 ng/mL); Vista UDS pH Range 5
--- NOTE | 2018-03-19 18:14 | ED.VISSUMM ---
- ER Visit Summary Date of Service: 03/19/18 Chief Complaint: Suicidal ideation History of Present Illness: The patient is a 52 M presenting with suicidal ideation. Patient states that he has sensation that the world is coming to an end. He states that this has come to him in multiple dreams. Today he decided that he did not want to watch the world end and put a crossbow in his mouth. His neighbor called the police. He was brought in by the police. He has history of previous suicide attempts. Physical Examination: Vitals are stable. Patient is afebrile. Alert no acute distress. HEENT exam is unremarkable. Neck is supple. Lungs are clear and equal bilaterally. Heart is regular rate and rhythm. Abdomen is soft nontender nondistended. Extremities are unremarkable. Skin is warm and dry. No focal neurologic deficit. Depressed affect, suicidal ideation Remainder of exam is unremarkable. Emergency Department Course and Treatment: CBC, chemistries unremarkable other than creatinine 1.41. Tox positive for THC. Alcohol 315. Patient will be observed until sober. Will discuss with the counseling center for evaluation. Disposition: Per counseling center Impression: Suicidal ideation This note was generated with [employer] dictation software. It may contain incorrect words, spelling, and punctuation that were not noted in review of the chart prior to signing ED Disposition - Plan for ED Patient: Chief Complaint: Suicidal Referrals: Care Physician,No Primary [Primary Care Provider] -
--- NOTE | 2018-03-19 18:17 | ED.RN ---
PT'S FATHER, SMILEY MONTALVO REQUESTS TO BE NOTIFIED IF PT IS TRANSFERRED OR DISCHARGED HOME. [phone], OK TO LEAVE MESSAGE.
[2018-03-19 18:18] VITALS: PULSE 91; RESP 16; O2SAT 97
[2018-03-19 19:03] VITALS: RESP 14
[2018-03-19] MEDS: LORazepam 1 MG Tablet PO (19:03)
[2018-03-19 21:54] VITALS: BP 111/72; PULSE 104; RESP 18; O2SAT 98
[2018-03-20] VITALS (20 sets, daily range): BP systolic 128–155; BP diastolic 81–101; PULSE 75–105; RESP 12–24; TEMP 36.1–37.2; O2SAT 96–100; BMI 30.6
--- NOTE | 2018-03-20 04:20 | ED.RN ---
CALLED [facility]. HIDE DYER STATED SHE WILL LET ALEXY KNOW PT NEEDS TO BE SEEN.
--- NOTE | 2018-03-20 05:01 | ED.RN ---
ALEXY FROM [facility] IS HERE TO SEE PT.
[2018-03-20] MEDS: LORazepam 2 MG/ML Syringe 1 MG IV ×2 (05:53→21:11)
[2018-03-20] MEDS: Escitalopram Oxalate 20 MG Tablet PO (06:05)
[2018-03-20] MEDS: Metoprolol Tartrate 25 MG Tablet 12.5 MG PO ×2 (06:05→21:14)
[2018-03-20] MEDS: Lisinopril 5 MG Tablet PO (06:06)
[2018-03-20] MEDS: Aspirin 81 MG TAB.CHEW PO (06:07)
[2018-03-20] MEDS: Clopidogrel Bisulfate 75 MG Tablet PO (06:07)
[2018-03-20] MEDS: Pantoprazole Sodium 20 MG Tablet PO (06:17)
--- NOTE | 2018-03-20 06:18 | ED.RN ---
HOSE STRIPPER IS AT THE BEDSIDE. DR. HOOKS ORDERED HIS HOME MEDICATIONS AND THOSE WERE GIVEN. REGULAR DIET ORDERED AND TRAY ORDERED FROM [facility]. THIS NURSE STILL NOTICES A FINE HAND TREMOR IN HIS BILATERAL HANDS. WILL SEE HOW HE DOES AND LET THE DOCTOR KNOW IF [facility] IS NOT LASTING.
--- NOTE | 2018-03-20 07:07 | ED.RN ---
BREAKFAST TRAY GIVEN TO PT. DENIES FURTHER NEEDS AT THIS TIME. CALL LIGHT IN REACH.
[2018-03-20 08:25] LABS: Absolute Lymphocyte Count 1.47 X10^3/ul (0.83-4.51); Absolute Neutrophil Count 5.1 X10^3/uL (2.0-7.7); Basophil# 0.02 X10^3/uL; Basophil% 0.3 % (0-1); Eosinophil# 0.11 X10^3/uL; Eosinophils% 1.5 % (0-5); Hematocrit 39.7 % (40-54); Hemoglobin 13.5 g/dl (13.0-16.5); Lymphocyte # 1.47 X10^3/ul (4.0); Lymphocyte % 20.2 % (19-41); Mean Corpuscular Hgb 31.4 pg (27.0-32.0); Mean Corpuscular Volume 92.3 fL (80-94); Mean Platelet Vol. 9.1 fl (6.2-12.0); Monocyte# 0.59 X10^3/uL; Monocyte% 8.1 % (0-10); Neutrophil # 5.07 X10^3/uL (2.7-7.7); Neutrophil % 69.8 % (47-70); Platelet Count 175 K/mm3 (150-450); RBC Distribution Width CV 13.4 % (11.6-14.6); RBC Distribution Width SD 44.6 fl (35.1-43.9); White Blood Count 7.3 K/mm3 (4.4-11.0)
--- NOTE | 2018-03-20 08:36 | PCM.HP.STD ---
Problem List (1) Suicidal ideation Status: Acute (2) Alcohol intoxication Status: Acute History of Present Illness Date of Admission: 03/20/18 Chief Complaint: suicidal ideations The patient is a 52 year old M with a history of CAD, depression, hyperlipidemia, hypertension and anxiety disorder. He was admitted via the ED with a complaitn of suicidal ideation. Her admitting ED note, patient was found with the Cortisporin his mouth by his neighbor after he said he believes the world was coming to an end. He said he had come to them and multiple dreams and so he did not want towards the water and put a course bowl in his mouth. His neighbor called the police and was brought in. He has several previous attempts at suicide. Patient also takes a lot of alcohol and states he drinks about 6-10 cans of beer a day. His last drink was yesterday he states he drank about 6 months. Alcohol level was above 300 on admission. He could not be admitted by mental health service on account of elevated alcohol levels will was admitted to be managed for alcohol detox and then to be seen by mental health crisis appetite was stable. At time of review vitals were temperature 97.7?F, blood pressure is 150/94, pulse rate of 97 and respiratory rate of 18. He has been admitted to be managed for his suicidal ideations and alcohol detox. [] Past Medical History Past Medical History (Chronic Problems): Chronic Problems Depression (Chronic) Obesity (BMI 30.0-34.9) (Chronic) Hyperlipidemia (Chronic) Hypertension (Chronic) Alcohol abuse (Chronic) Medical History: Medical History NSTEMI (non-ST elevated myocardial infarction) (Acute) I21.4 S/P PTCA/JUSTIN to LCx in November 2017; Depression (Chronic) F32.9 Obesity (BMI 30.0-34.9) (Chronic) E66.9 Hyperlipidemia (Chronic) E78.5 Hypertension (Chronic) I10 Alcohol abuse (Chronic) F10.10 Chest pain (Acute) R07.9 Allergies pseudoephedrine Adverse Reaction (Verified 03/19/18 16:40) Other CAUSES PROSTATE TO ENLARGE AND UNABLE TO URINATE Home Medications: Ambulatory Orders Medication Instructions Recorded Omeprazole [Prilosec] 20 mg PO DAILY 06/17/14 Aspirin [Adult Low Dose Aspirin EC] 81 mg PO DAILY 06/17/16 Cyclobenzaprine [Flexeril] 10 mg PO PRN PRN 06/17/16 Nitroglycerin [Nitrostat] 0.4 mg SUBLINGUAL Q5M PRN 03/14/17 L.acidoph,Paracasei, B.lactis 1 ea PO DAILY 11/21/17 [Probiotic] Melatonin [Melatin] 3 mg PO DAILY 11/21/17 Escitalopram Oxalate [Lexapro] 20 mg PO DAILY #30 tab 11/23/17 atorvastatin 80 mg tablet 80 mg PO QHS #30 tab 12/20/17 clopidogrel 75 mg tablet 75 mg PO QDAY #30 tab 12/20/17 lisinopril 5 mg tablet 5 mg PO DAILY #30 tab 12/20/17 metoprolol tartrate 25 mg tablet 12.5 mg PO BID #60 tab 12/20/17 Surgical History: Surgical History (Last Updated 12/20/17 @ 10:57 by Trudy Van) Stented coronary artery (Resolved) Z95.5 November [id number] at [facility] History of tonsillectomy (Resolved) Z90.89 Hx of eye surgery (Resolved) Z98.890 Surgical History: no surgical history Psychiatric History: No pertinent psych hx Smoking Status: Current every day smoker - *Family History Paternal Family History: Family History (Last Updated 12/20/17 @ 10:58 by Trudy Van) Mother CAD (coronary artery disease) Father CAD (coronary artery disease) Brother CAD (coronary artery disease) Myocardial infarction Sister CAD (coronary artery disease) History Items: Heart Disease - [place] before age 55yrs Maternal Family History: Family History (Last Updated 12/20/17 @ 10:58 by Trudy Van) Mother CAD (coronary artery disease) Father CAD (coronary artery disease) Brother CAD (coronary artery disease) Myocardial infarction Sister CAD (coronary artery disease) History Items: Heart Disease - [place] before age 55yrs Review of Systems Constitutional: Denies: Chills, Fever, Weight Change Eyes: Denies: Blurred vision HEENT: Denies: Head Aches, Sinus Congestion, Sinus Drainage Cardiovascular: Denies: Chest Pain, Heaviness, Light Headedness, Palpitations, Paroxysmal Noc. Dyspnea Respiratory: Denies: Cough, Shortness of Breath, Shortness of breath at rest, Sputum production, Wheezing Gastrointestinal: Denies: Abdominal Pain, Constipation, Diarrhea, Nausea, Vomiting Genitourinary: Denies: Dysuria, Frequency Musculoskeletal: Denies: Joint Pain, Joint Tenderness Skin: Denies: Rash, Wounds Neurological: Denies: Numbness, Tingling, Focal weakness Psychiatric: Denies: Anxiety, Depression, Homicidal Ideations, Suicidal Ideations Hematologic/ Lymphatic: Denies: Easy Bruising, Easy Bleeding VTE Information - Inpt Only VTE Present on Admission: No VTE Mechan Device Prophylaxis: None VTE Pharm Prophylaxis ordered?: Yes Patient Problems: Active and Suspected Problems Suicidal ideation (Acute) Alcohol intoxication (Acute) - Physical Exam General: Alert, Oriented x3, Cooperative, - - mild distress HEENT: Atraumatic, PERRLA, EOMI, Normocephalic Oral: Moist Mucosa Neck: Supple, No JVD, Negative Carotid Bruits Lungs: Clear to auscultation, Normal air movement, No rhonchi, No wheeze, No rales Cardiovascular: Regular rate, Regular Rhythm, Normal S1, Normal S2, No murmurs Abdomen: Bowel Sounds Present, Soft, Non Tender, Non-Distended, No Hepato-splenomegaly Extremities: No clubbing, No cyanosis, No edema, Capillary Refill Less than 3 Seconds Skin: No rashes, No breakdown Musculoskeletal: No Tenderness to Palpation of Joints or Extremities, No Muscle Wasting Lymphatic: No Cervical, Supraclavicular, or Inguinal Adenopathy Neurological: Cranial nerves II-XII grossly intact, Motor Exam 5/5 strength throughout Psych/Mental Status: Depressed, - - denies any suicidal ideation at time of review, but does admit to feeling depressed., Alert and oriented to time, place, person, mood and affect Vital Signs Temp Pulse Resp BP Pulse Ox 97.7 F L 97 18 150/94 H 100 03/20/18 06:53 03/20/18 06:53 03/20/18 06:53 03/20/18 06:53 03/20/18 06:53 Weight: 213 lb 13.574 oz Body Mass Index (BMI) 30.6 Laboratory Tests Past 24 Hrs 03/20/18 03/20/18 03/20/18 08:10 08:10 08:10 WBC 7.3 RBC 4.30 L Hgb 13.5 Hct 39.7 L MCV 92.3 MCH 31.4 MCHC 34.0 RDW 13.4 RDW Differential 44.6 H Plt Count 175 MPV 9.1 Immature Gran % (Auto) 0.100 Neut % (Auto) 69.8 Lymph % (Auto) 20.2 [place] % (Auto) 8.1 Eos % (Auto) 1.5 Baso % (Auto) 0.3 Absolute Neuts (auto) 5.1 Absolute Lymphs (auto) 1.47 Total Counted Not Reportable Sodium Pending Potassium Pending Chloride Pending Carbon Dioxide Pending Anion Gap Pending BUN Pending Creatinine Pending Est GFR (MDRD) Af Amer Pending Est GFR (MDRD) Non-Af Pending BUN/Creatinine Ratio Pending Glucose Pending Calcium Pending Phosphorus Pending Magnesium Pending Assessment/Plan All Active Problems Suicidal ideation (Acute) Alcohol intoxication (Acute) Atherosclerosis of coronary artery of [place] heart without angina pectoris (Acute) Stented coronary artery (Resolved) History of tonsillectomy (Resolved) Hx of eye surgery (Resolved) NSTEMI (non-ST elevated myocardial infarction) (Acute) Chest pain (Acute) 52-year-old male with a history of multiple suicide attempts, depression and anxiety as well as hypertension hyperlipidemia presenting with a complaint of suicidal ideation and was found to have elevated alcohol level. 1. Alcohol detox had 6 drinks yesterday; usually drinks ~ 6-10 cans of beer daily. alcohol level was >300 on admission alcohol withdrawal protocol with librium monitor CIWA score oral thiamine, folic acid and multivite daily will check Mg and potassium and replace as needed. 2. Suicidal ideation and attempt tried to kill himself with questionable yesterday as he felt the world was coming to 1 and answered and went to which to see the old component. Has tried suicide in the past. Denies access to guns. Admits to feeling depressed. Could not be admitted to mental health facility on account of elevated alcohol level. To detox from alcohol and to be evaluated by mental health crisis once medically stable. 3. Depression and anxiety on lexapro and trazodone. 4. Hypertension: on metoprolol. Will continue and monitor 5. Hyperlipidemia: on statin 6. CAD: on aspirin, plavix and statin. DVT prophylaxis: lovenox Code status: Full code. This note was generated with [employer] software. It may contain incorrect words, spelling, and punctuation that were not noted in checking the note before signing. Code Visit Inpatient E&M: 63735 Init Hosp L3
--- NOTE | 2018-03-20 08:40 | HP.PCM_ITS ---
Problem List (1) Suicidal ideation Status: Acute (2) Alcohol intoxication Status: Acute History of Present Illness Date of Admission: 03/20/18 Chief Complaint: suicidal ideations The patient is a 52 year old M with a history of CAD, depression, hyperlipidemia , hypertension and anxiety disorder. He was admitted via the ED with a complaitn of suicidal ideation. Her admitting ED note, patient was found with the Cortisporin his mouth by his neighbor after he said he believes the world was coming to an end. He said he had come to them and multiple dreams and so he did not want towards the water and put a course bowl in his mouth. His neighbor called the police and was brought in. He has several previous attempts at suicide. Patient also takes a lot of alcohol and states he drinks about 6-10 cans of beer a day. His last drink was yesterday he states he drank about 6 months. Alcohol level was above 300 on admission. He could not be admitted by mental health service on account of elevated alcohol levels will was admitted to be managed for alcohol detox and then to be seen by mental health crisis appetite was stable. At time of review vitals were temperature 97.7?F, blood pressure is 150/94, pulse rate of 97 and respiratory rate of 18. He has been admitted to be managed for his suicidal ideations and alcohol detox. [] Past Medical History Past Medical History (Chronic Problems): Chronic Problems Depression (Chronic) Obesity (BMI 30.0-34.9) (Chronic) Hyperlipidemia (Chronic) Hypertension (Chronic) Alcohol abuse (Chronic) Medical History: Medical History NSTEMI (non-ST elevated myocardial infarction) (Acute) I21.4 S/P PTCA/JUSTIN to LCx in November 2017; Depression (Chronic) F32.9 Obesity (BMI 30.0-34.9) (Chronic) E66.9 Hyperlipidemia (Chronic) E78.5 Hypertension (Chronic) I10 Alcohol abuse (Chronic) F10.10 Chest pain (Acute) R07.9 Allergies pseudoephedrine Adverse Reaction (Verified 03/19/18 16:40) Other CAUSES PROSTATE TO ENLARGE AND UNABLE TO URINATE Home Medications: Ambulatory Orders Medication Instructions Recorded Omeprazole [Prilosec] 20 mg PO DAILY 06/17/14 Aspirin [Adult Low Dose Aspirin EC] 81 mg PO DAILY 06/17/16 Cyclobenzaprine [Flexeril] 10 mg PO PRN PRN 06/17/16 Nitroglycerin [Nitrostat] 0.4 mg SUBLINGUAL Q5M PRN 03/14/17 L.acidoph,Paracasei, B.lactis 1 ea PO DAILY 11/21/17 [Probiotic] Melatonin [Melatin] 3 mg PO DAILY 11/21/17 Escitalopram Oxalate [Lexapro] 20 mg PO DAILY #30 tab 11/23/17 atorvastatin 80 mg tablet 80 mg PO QHS #30 tab 12/20/17 clopidogrel 75 mg tablet 75 mg PO QDAY #30 tab 12/20/17 lisinopril 5 mg tablet 5 mg PO DAILY #30 tab 12/20/17 metoprolol tartrate 25 mg tablet 12.5 mg PO BID #60 tab 12/20/17 Surgical History: Surgical History (Last Updated 12/20/17 @ 10:57 by Trudy Van) Stented coronary artery (Resolved) Z95.[id number] [facility] History of tonsillectomy (Resolved) Z90.89 Hx of eye surgery (Resolved) Z98.890 Surgical History: no surgical history Psychiatric History: No pertinent psych hx Smoking Status: Current every day smoker - *Family History Paternal Family History: Family History (Last Updated 12/20/17 @ 10:58 by Trudy Van) Mother CAD (coronary artery disease) Father CAD (coronary artery disease) Brother CAD (coronary artery disease) Myocardial infarction Sister CAD (coronary artery disease) History Items: Heart Disease - [place] before age 55yrs Maternal Family History: Family History (Last Updated 12/20/17 @ 10:58 by Trudy Van) Mother CAD (coronary artery disease) Father CAD (coronary artery disease) Brother CAD (coronary artery disease) Myocardial infarction Sister CAD (coronary artery disease) History Items: Heart Disease - [place] before age 55yrs Review of Systems Constitutional: Denies: Chills, Fever, Weight Change Eyes: Denies: Blurred vision HEENT: Denies: Head Aches, Sinus Congestion, Sinus Drainage Cardiovascular: Denies: Chest Pain, Heaviness, Light Headedness, Palpitations, Paroxysmal Noc. Dyspnea Respiratory: Denies: Cough, Shortness of Breath, Shortness of breath at rest, Sputum production, Wheezing Gastrointestinal: Denies: Abdominal Pain, Constipation, Diarrhea, Nausea, Vomiting Genitourinary: Denies: Dysuria, Frequency Musculoskeletal: Denies: Joint Pain, Joint Tenderness Skin: Denies: Rash, Wounds Neurological: Denies: Numbness, Tingling, Focal weakness Psychiatric: Denies: Anxiety, Depression, Homicidal Ideations, Suicidal Ideations Hematologic/ Lymphatic: Denies: Easy Bruising, Easy Bleeding VTE Information - Inpt Only VTE Present on Admission: No VTE Mechan Device Prophylaxis: None VTE Pharm Prophylaxis ordered?: Yes Patient Problems: Active and Suspected Problems Suicidal ideation (Acute) Alcohol intoxication (Acute) - Physical Exam General: Alert, Oriented x3, Cooperative, - - mild distress HEENT: Atraumatic, PERRLA, EOMI, Normocephalic Oral: Moist Mucosa Neck: Supple, No JVD, Negative Carotid Bruits Lungs: Clear to auscultation, Normal air movement, No rhonchi, No wheeze, No rales Cardiovascular: Regular rate, Regular Rhythm, Normal S1, Normal S2, No murmurs Abdomen: Bowel Sounds Present, Soft, Non Tender, Non-Distended, No Hepato- splenomegaly Extremities: No clubbing, No cyanosis, No edema, Capillary Refill Less than 3 Seconds Skin: No rashes, No breakdown Musculoskeletal: No Tenderness to Palpation of Joints or Extremities, No Muscle Wasting Lymphatic: No Cervical, Supraclavicular, or Inguinal Adenopathy Neurological: Cranial nerves II-XII grossly intact, Motor Exam 5/5 strength throughout Psych/Mental Status: Depressed, - - denies any suicidal ideation at time of review, but does admit to feeling depressed., Alert and oriented to time, place , person, mood and affect Vital Signs Temp Pulse Resp BP Pulse Ox 97.7 F L 97 18 150/94 H 100 03/20/18 06:53 03/20/18 06:53 03/20/18 06:53 03/20/18 06:53 03/20/18 06:53 Weight: 213 lb 13.574 oz Body Mass Index (BMI) 30.6 Laboratory Tests Past 24 Hrs 03/20/18 03/20/18 03/20/18 08:10 08:10 08:10 WBC 7.3 RBC 4.30 L Hgb 13.5 Hct 39.7 L MCV 92.3 MCH 31.4 MCHC 34.0 RDW 13.4 RDW Differential 44.6 H Plt Count 175 MPV 9.1 Immature Gran % (Auto) 0.100 Neut % (Auto) 69.8 Lymph % (Auto) 20.2 [place] % (Auto) 8.1 Eos % (Auto) 1.5 Baso % (Auto) 0.3 Absolute Neuts (auto) 5.1 Absolute Lymphs (auto) 1.47 Total Counted Not Reportable Sodium Pending Potassium Pending Chloride Pending Carbon Dioxide Pending Anion Gap Pending BUN Pending Creatinine Pending Est GFR (MDRD) Af Amer Pending Est GFR (MDRD) Non-Af Pending BUN/Creatinine Ratio Pending Glucose Pending Calcium Pending Phosphorus Pending Magnesium Pending Assessment/Plan All Active Problems Suicidal ideation (Acute) Alcohol intoxication (Acute) Atherosclerosis of coronary artery of [place] heart without angina pectoris ( Acute) Stented coronary artery (Resolved) History of tonsillectomy (Resolved) Hx of eye surgery (Resolved) NSTEMI (non-ST elevated myocardial infarction) (Acute) Chest pain (Acute) 52-year-old male with a history of multiple suicide attempts, depression and anxiety as well as hypertension hyperlipidemia presenting with a complaint of suicidal ideation and was found to have elevated alcohol level. 1. Alcohol detox * had 6 drinks yesterday; usually drinks ~ 6-10 cans of beer daily. * alcohol level was >300 on admission * alcohol withdrawal protocol with librium * monitor CIWA score * oral thiamine, folic acid and multivite daily * will check Mg and potassium and replace as needed. * 2. Suicidal ideation and attempt * tried to kill himself with questionable yesterday as he felt the world was coming to 1 and answered and went to which to see the old component. * Has tried suicide in the past. Denies access to guns. Admits to feeling depressed. * Could not be admitted to mental health facility on account of elevated alcohol level. To detox from alcohol and to be evaluated by mental health crisis once medically stable. * 3. Depression and anxiety * on lexapro and trazodone. * 4. Hypertension: on metoprolol. Will continue and monitor 5. Hyperlipidemia: on statin 6. CAD: on aspirin, plavix and statin. DVT prophylaxis: lovenox Code status: Full code. This note was generated with [employer] software. It may contain incorrect words, spelling, and punctuation that were not noted in checking the note before signing. Code Visit Inpatient E&M: 78945 Init Hosp L3
[2018-03-20 08:42] LABS: Anion Gap 12 (5-15); BUN 21 mg/dL (7-18); BUN/Creat Ratio 11.5 RATIO (10-20); Calcium,Total 8.5 mg/dL (8.5-10.1); Chloride 105 mmol/L (98-107); Creatinine, Serum 1.83 mg/dL (0.70-1.30); EST Glomerular Filtration Rate 42 mL/min (>60); Est Glom Filt Rate - Afr Amer 50 mL/min (>60); Estimated Creatinine Clearance 49.31 ml/min; Glucose 92 mg/dL (74-106); Magnesium 1.4 mg/dL (1.6-2.6); Phosphorus 2.5 mg/dL (2.5-4.9); Potassium 4.5 mmol/L (3.5-5.1); Sodium Level 140 mmol/L (136-145)
--- NOTE | 2018-03-20 09:36 | CASEMGMT ---
Crisis saw pt already in the emergency room. Pt now is in ICU, and is going through alcohol withdrawal. Crisis will need to see pt again once pt is through withdrawal and medically stable. CONSTANCE Whtie, BUSINESS SYSTEM MANAGER
[2018-03-20] MEDS: Lactated Ringers 1,000 ML 125 ML IV (10:06)
[2018-03-20] MEDS: chlordiazePOXIDE 25 MG Capsule 50 MG PO ×3 (10:06→20:12)
[2018-03-20] MEDS: Multivitamins,Therapeutic Tablet 1 TABLET PO (10:07)
[2018-03-20] MEDS: Folic Acid 1 MG Tablet PO (10:07)
[2018-03-20] MEDS: Thiamine Hydrochloride 100 MG Tablet PO (10:07)
[2018-03-20] MEDS: Enoxaparin 40 MG/0.4 ML Syringe SC (10:08)
[2018-03-20] MEDS: Acetaminophen 500 MG Tablet PO ×2 (17:10→21:12)
[2018-03-20] MEDS: MELATONIN 3 MG TABLET PO (21:14)
[2018-03-20] MEDS: Atorvastatin Calcium 80 MG Tablet PO (21:14)
[2018-03-20] MEDS: traZODone 50 MG Tablet PO (21:14)
[2018-03-21] VITALS (10 sets, daily range): BP systolic 115–172; BP diastolic 76–105; PULSE 76–105; RESP 10–21; TEMP 36.1–36.4; O2SAT 96–100
[2018-03-21] MEDS: chlordiazePOXIDE 25 MG Capsule 50 MG PO ×3 (02:26→18:11)
[2018-03-21] MEDS: 0.9% NaCl Peripheral Flush Adult/Peds IV (04:09)
[2018-03-21 04:19] LABS: Absolute Lymphocyte Count 1.55 X10^3/ul (0.83-4.51); Absolute Neutrophil Count 3.1 X10^3/uL (2.0-7.7); Basophil# 0.02 X10^3/uL; Basophil% 0.4 % (0-1); Eosinophil# 0.13 X10^3/uL; Eosinophils% 2.4 % (0-5); Hematocrit 38.9 % (40-54); Hemoglobin 13.1 g/dl (13.0-16.5); Lymphocyte # 1.55 X10^3/ul (4.0); Lymphocyte % 29.1 % (19-41); Mean Corp Hgb Conc 33.7 g/gl (32-36); Mean Corpuscular Hgb 31.3 pg (27.0-32.0); Mean Corpuscular Volume 93.1 fL (80-94); Mean Platelet Vol. 9.1 fl (6.2-12.0); Monocyte# 0.52 X10^3/uL; Monocyte% 9.8 % (0-10); Neutrophil % 58.1 % (47-70); Platelet Count 159 K/mm3 (150-450); RBC Distribution Width CV 13.3 % (11.6-14.6); RBC Distribution Width SD 44.9 fl (35.1-43.9); Red Blood Count 4.18 M/mm3 (4.6-6.2); White Blood Count 5.3 K/mm3 (4.4-11.0)
[2018-03-21 04:20] LABS: POSITIVE COUNT NO; POSITIVE DIFFERENTIAL NO; POSITIVE MORPHOLOGY NO
[2018-03-21 04:39] LABS: Anion Gap 9 (5-15); BUN 20 mg/dL (7-18); BUN/Creat Ratio 11.8 RATIO (10-20); Calcium,Total 8.3 mg/dL (8.5-10.1); Chloride 104 mmol/L (98-107); EST Glomerular Filtration Rate 45 mL/min (>60); Est Glom Filt Rate - Afr Amer 55 mL/min (>60); Estimated Creatinine Clearance 53.08 ml/min; Glucose 95 mg/dL (74-106); Potassium 4.6 mmol/L (3.5-5.1); Sodium Level 142 mmol/L (136-145)
--- NOTE | 2018-03-21 08:45 | NURSING ---
Dr Bishop stated pt is medically cleared and ok for crisis to come evaluate patient.
[2018-03-21 11:11] LABS: Magnesium 2.7 mg/dL (1.6-2.6)
[2018-03-21] MEDS: Folic Acid 1 MG Tablet PO (12:02)
[2018-03-21] MEDS: Multivitamins,Therapeutic Tablet 1 TABLET PO (12:02)
[2018-03-21] MEDS: Thiamine Hydrochloride 100 MG Tablet PO (12:02)
[2018-03-21] MEDS: Aspirin E.C. 81 MG Tablet PO (12:03)
[2018-03-21] MEDS: Metoprolol Tartrate 25 MG Tablet 12.5 MG PO (12:03)
[2018-03-21] MEDS: Escitalopram Oxalate 20 MG Tablet PO (12:03)
[2018-03-21] MEDS: Enoxaparin 40 MG/0.4 ML Syringe SC (12:03)
[2018-03-21] MEDS: Lisinopril 5 MG Tablet PO (12:04)
[2018-03-21] MEDS: Clopidogrel Bisulfate 75 MG Tablet PO (12:04)
--- NOTE | 2018-03-21 12:50 | PCM.PN.HOSP ---
Patient Problems: Active and Suspected Problems Suicidal ideation (Acute) Alcohol intoxication (Acute) Subjective: Patient seen and examined. He had an uneventful night. He still admits to being depressed but denies any suicidal ideation. Denies any fever or chills, and cough or chest pain, shortness of breath, abdominal pain, any diarrhea vomiting. 12 point Review of systems otherwise negative. Vitals/I&O's: Vital Signs Temp Pulse Resp BP Pulse Ox 97.6 F L 98 13 126/92 H 100 03/21/18 06:00 03/21/18 12:03 03/21/18 06:00 03/21/18 06:00 03/21/18 03:00 Oxygen Delivery Method Room Air Weight: 213 lb 13.574 oz Body Mass Index (BMI) 30.6 Intake and Output for Last 24 Hours 03/19/18 03/20/18 03/21/18 23:59 23:59 23:59 Intake Total 1801 / 1801 0 / 0 Output Total 0 / 0 Balance 1801 / 1801 0 / 0 General: Alert, Oriented x3, Cooperative HEENT: Atraumatic, PERRLA, EOMI, Normocephalic Oral: Moist Mucosa Neck: Supple, No JVD, Negative Carotid Bruits Lungs: Clear to auscultation, Normal air movement, No rhonchi, No wheeze, No rales Cardiovascular: Regular rate, Regular Rhythm, Normal S1, Normal S2, No murmurs Abdomen: Bowel Sounds Present, Soft, Non Tender, Non-Distended, No Hepato-splenomegaly Extremities: No clubbing, No cyanosis, No edema, Capillary Refill Less than 3 Seconds Skin: No rashes, No breakdown Musculoskeletal: No Tenderness to Palpation of Joints or Extremities Lymphatic: No Cervical, Supraclavicular, or Inguinal Adenopathy Neurological: Cranial nerves II-XII grossly intact, Neuro grossly intact, Motor Exam 5/5 strength throughout, - - has mild tremors of the UEs Psych/Mental Status: Depressed, Alert and oriented to time, place, person, mood and affect Laboratory Results 03/21/18 04:08: WBC 5.3, RBC 4.18 L, Hgb 13.1, Hct 38.9 L, MCV 93.1, MCH 31.3, MCHC 33.7, RDW 13.3, RDW Differential 44.9 H, Plt Count 159, MPV 9.1, Immature Gran % (Auto) 0.200, Neut % (Auto) 58.1, Lymph % (Auto) 29.1, [place] % (Auto) 9.8, Eos % (Auto) 2.4, Baso % (Auto) 0.4, Absolute Neuts (auto) 3.1, Absolute Lymphs (auto) 1.55, Total Counted Not Reportable 03/21/18 04:08: Sodium 142, Potassium 4.6, Chloride 104, Carbon Dioxide 29.0, Anion Gap 9, BUN 20 H, Creatinine 1.70 H, Estim Creat Clear Calc 53.08, Est GFR (MDRD) Af Amer 55 L, Est GFR (MDRD) Non-Af 45 L, BUN/Creatinine Ratio 11.8, Glucose 95, Calcium 8.3 L 03/21/18 04:08: Magnesium 2.7 H Current Medications Acetaminophen (Tylenol) 500 mg PO Q4H PRN PRN PRN Reason: Temp > 100.4 F Last Admin: 03/20/18 21:12 Dose: 500 mg Al Hydroxide/Mg Hydroxide (Mylanta Ii) 30 ml PO Q6H PRN PRN PRN Reason: Gastric burning Aspirin (Ecotrin) 81 mg PO DAILY [facility] Last Admin: 03/21/18 12:03 Dose: 81 mg Atorvastatin Calcium (Lipitor) 80 mg PO QHS [facility] Last Admin: 03/20/18 21:14 Dose: 80 mg Bisacodyl (Dulcolax) 10 mg RECTAL DAILY PRN PRN Reason: Constipation Chlordiazepoxide (Librium) 50 mg PO Q8H [facility] PRN Reason: Taper Stop: 03/23/18 09:59 Last Admin: 03/21/18 12:01 Dose: 50 mg Clopidogrel Bisulfate (Plavix) 75 mg PO DAILY [facility] Last Admin: 03/21/18 12:04 Dose: 75 mg Dicyclomine HCl (Bentyl) 20 mg PO Q6H PRN PRN PRN Reason: abdominal discomfort Enoxaparin Sodium (Lovenox) 40 mg SC DAILY@1000 [facility] Last Admin: 03/21/18 12:03 Dose: 40 mg Escitalopram Oxalate (Lexapro) 20 mg PO DAILY [facility] Last Admin: 03/21/18 12:03 Dose: 20 mg [facility]olic [facility] ([facility] Acid) [facility] Last Admin: 03/21/18 12:02 Dose: 1 mg Hydroxyzine Pamoate (Vistaril Pamoate Capsule) 50 mg PO Q6H PRN PRN PRN Reason: Mild Anxiety (score 1/3) Lisinopril (Zestril) 5 mg PO DAILY [facility] Last Admin: 03/21/18 12:04 Dose: 5 mg Loperamide HCl (Imodium) 2 - 4 mg PO UD PRN PRN Reason: LOOSE STOOLS Lorazepam (Ativan) 1 mg IV Q4H PRN PRN PRN Reason: Severe Anxiety Last Admin: 03/20/18 21:11 Dose: 1 mg Lorazepam (Ativan) 2 mg IV X1 PRN PRN Reason: Seizure Magnesium Hydroxide (Milk Of Magnesia) 30 ml PO DAILY PRN PRN PRN Reason: Constipation Melatonin (Melatonin) 3 mg PO QHS [facility] Last Admin: 03/20/18 21:14 Dose: 3 mg Methocarbamol (Methocarbamol) 750 mg PO Q6H PRN PRN PRN Reason: Muscle Aches Metoprolol Tartrate (Lopressor (Beta Kehinde)) 12.5 mg PO BID [facility] Last Admin: 03/21/18 12:03 Dose: 12.5 mg Multivitamins (Multivitamin) 1 tablet [facility] Last Admin: 03/21/18 12:02 Dose: 1 tablet Nitroglycerin (Nitrostat) 0.4 mg SUBLINGUAL Q5M PRN PRN Reason: Chest Pain Ondansetron HCl (Zofran Odt) 4 mg PO Q6H PRN PRN PRN Reason: NAUSEA Senna (Senokot) 1 tablet PO QHS PRN PRN Reason: Constipation Sodium Chloride () 5 - 30 ml IV UD PRN PRN Reason: SALINE FLUSH Last Admin: 03/21/18 04:09 Dose: 10 ml Thiamine HCl (Vitamin B1) [facility] Last Admin: 03/21/18 12:02 Dose: 100 mg Trazodone HCl (Desyrel) 50 mg PO QHS [facility] Last Admin: 03/20/18 21:14 Dose: 50 mg Medical Necessity - Tobacco Use Smoking Status: Current every day smoker Assessment/Plan All Active Problems Suicidal ideation (Acute) Alcohol intoxication (Acute) Atherosclerosis of coronary artery of [place] heart without angina pectoris (Acute) Stented coronary artery (Resolved) History of tonsillectomy (Resolved) Hx of eye surgery (Resolved) NSTEMI (non-ST elevated myocardial infarction) (Acute) Chest pain (Acute) 52-year-old male with a history of multiple suicide attempts, depression and anxiety as well as hypertension hyperlipidemia presenting with a complaint of suicidal ideation and was found to have elevated alcohol level. 1. Alcohol detox CIWA score was 0 at time of review. on alcohol withdrawal protocol with librium oral thiamine, folic acid and multivite daily Mg and potassium WNL 2. Suicidal ideation and attempt denies any suicidal ideation or homicidal ideation today. However, he admits to still feeling very depressed evaluated by mental health crises counselor- I spoke to counselor on the phone. Counselor stated that [facility] facility [facility] accept patient as he is in DTs. I explained to the counseled that patient was not into DTs as patient was not hypertensive, delirious nor tachycardic and did not have any other point to source DTs. Patient only has mild tremors of his upper extremities which is to be expected for somebody was been a chronic alcoholic for majority of his life. However, it appears that patient wont be accepted by Psychiatric facility despite his suicidal ideations and severe depression. patient to be evaluated daily by crisis counselor until they admit him to Psych facility. per assessment by crises counselor, patient is still suicidal. He also told me he is severely depressed. I feel that patient is not getting any help with these active issues of suicidal ideation and severe depression. In my opinion, patient needs to be urgently seen by psych unit for these active issues to be treated. I communicated my concerns to the business case analyst also, who will see if there is any way we can get any help for the patient with his suicidal ideation and depression. 3. hypomagnesemia: Mg was 1.4 and was replaced. Has now resolved. 4. Depression and anxiety on lexapro and trazodone. 5. Hypertension: on metoprolol. Will continue and monitor 6. Hyperlipidemia: on statin 7. CAD: on aspirin, plavix and statin. DVT prophylaxis: lovenox Code status: Full code. This note was generated with [email or web address] software. It may contain incorrect words, spelling, and punctuation that were not noted in checking the note before signing. Code Visit Inpatient E&M: 71971 Subs Hosp L3
[2018-03-21] MEDS: Acetaminophen 500 MG Tablet PO (15:54)
[2018-03-21 16:49] LABS: AST(SGOT) 55 U/L (15-37); Alanine Aminotransfer ALT/SGPT 71 U/L (16-61); Albumin, Serum 3.4 g/dL (3.2-5.0); Alkaline Phosphatase 76 U/L (45-117); Bilirubin, Direct 0.32 mg/dL (0.00-0.30); Globulin 3.5 g/dL (2.2-4.2); Protein, Total 6.9 g/dL (6.4-8.2)
--- NOTE | 2018-03-22 07:06 | PCM.DC.SUM ---
Discharge Date and Diagnosis Date of Admission: 03/20/18 Date of Discharge: 03/22/18 - Primary Discharge Diagnosis suicidal attempt severe depression alcohol intoxication - Secondary Discharge Diagnosis Chronic Problems Depression (Chronic) Obesity (BMI 30.0-34.9) (Chronic) Hyperlipidemia (Chronic) Hypertension (Chronic) Alcohol abuse (Chronic) Hospital Course and Treatment Imaging Results: Laboratory Tests 03/19/18 03/19/18 03/19/18 17:10 17:10 17:10 WBC 6.7 RBC 4.42 L Hgb 14.1 Hct 40.3 MCV 91.2 MCH 31.9 MCHC 35.0 RDW 13.2 RDW Differential 43.8 Plt Count 196 MPV 9.2 Immature Gran % (Auto) 0.100 Neut % (Auto) 62.9 Lymph % (Auto) 26.3 [place] % (Auto) 7.9 Eos % (Auto) 2.7 Baso % (Auto) 0.1 Absolute Neuts (auto) 4.2 Absolute Lymphs (auto) 1.77 Total Counted Not Reportable Sodium 140 Potassium 4.1 Chloride 106 Carbon Dioxide 22.0 Anion Gap 12 BUN 16 Creatinine 1.41 H Estim Creat Clear Calc 64.00 Est GFR (MDRD) Af Amer 68 Est GFR (MDRD) Non-Af 56 L BUN/Creatinine Ratio 11.3 Glucose 87 Calcium 8.2 L Phosphorus Magnesium Total Bilirubin Direct Bilirubin AST ALT Alkaline Phosphatase Total Protein Albumin Globulin Urine Opiates Screen Urine Methadone Screen Ur Barbiturates Screen Ur Phencyclidine Scrn Ur Amphetamines Screen U Methamphetamin-MDMA U Benzodiazepines Scrn Urine Cocaine Screen U Cannabinoids Screen Ur Drug Screen Comment Ethyl Alcohol 315.0 H* 03/19/18 03/20/18 03/20/18 17:20 05:40 08:10 WBC RBC Hgb Hct MCV MCH MCHC RDW RDW Differential Plt Count MPV Immature Gran % (Auto) Neut % (Auto) Lymph % (Auto) [place] % (Auto) Eos % (Auto) Baso % (Auto) Absolute Neuts (auto) Absolute Lymphs (auto) Total Counted Sodium Potassium Chloride Carbon Dioxide Anion Gap BUN Creatinine Estim Creat Clear Calc Est GFR (MDRD) Af Amer Est GFR (MDRD) Non-Af BUN/Creatinine Ratio Glucose Calcium Phosphorus 2.5 Magnesium 1.4 L Total Bilirubin Direct Bilirubin AST ALT Alkaline Phosphatase Total Protein Albumin Globulin Urine Opiates Screen NEGATIVE Urine Methadone Screen NEGATIVE Ur Barbiturates Screen NEGATIVE Ur Phencyclidine Scrn NEGATIVE Ur Amphetamines Screen NEGATIVE U Methamphetamin-MDMA NEGATIVE U Benzodiazepines Scrn NEGATIVE Urine Cocaine Screen NEGATIVE U Cannabinoids Screen POSITIVE H Ur Drug Screen Comment Ethyl Alcohol 40.0 03/20/18 03/20/18 03/21/18 08:10 08:10 04:08 WBC 7.3 5.3 RBC 4.30 L 4.18 L Hgb 13.5 13.1 Hct 39.7 L 38.9 L MCV 92.3 93.1 MCH 31.4 31.3 MCHC 34.0 33.7 RDW 13.4 13.3 RDW Differential 44.6 H 44.9 H Plt Count 175 159 MPV 9.1 9.1 Immature Gran % (Auto) 0.100 0.200 Neut % (Auto) 69.8 58.1 Lymph % (Auto) 20.2 29.1 [place] % (Auto) 8.1 9.8 Eos % (Auto) 1.5 2.4 Baso % (Auto) 0.3 0.4 Absolute Neuts (auto) 5.1 3.1 Absolute Lymphs (auto) 1.47 1.55 Total Counted Not Reportable Not Reportable Sodium 140 Potassium 4.5 Chloride 105 Carbon Dioxide 23.0 Anion Gap 12 BUN 21 H Creatinine 1.83 H Estim Creat Clear Calc 49.31 Est GFR (MDRD) Af Amer 50 L Est GFR (MDRD) Non-Af 42 L BUN/Creatinine Ratio 11.5 Glucose 92 Calcium 8.5 Phosphorus Magnesium Total Bilirubin Direct Bilirubin AST ALT Alkaline Phosphatase Total Protein Albumin Globulin Urine Opiates Screen Urine Methadone Screen Ur Barbiturates Screen Ur Phencyclidine Scrn Ur Amphetamines Screen U Methamphetamin-MDMA U Benzodiazepines Scrn Urine Cocaine Screen U Cannabinoids Screen Ur Drug Screen Comment Ethyl Alcohol 03/21/18 03/21/18 03/21/18 04:08 04:08 04:08 WBC RBC Hgb Hct MCV MCH MCHC RDW RDW Differential Plt Count MPV Immature Gran % (Auto) Neut % (Auto) Lymph % (Auto) [place] % (Auto) Eos % (Auto) Baso % (Auto) Absolute Neuts (auto) Absolute Lymphs (auto) Total Counted Sodium 142 Potassium 4.6 Chloride 104 Carbon Dioxide 29.0 Anion Gap 9 BUN 20 H Creatinine 1.70 H Estim Creat Clear Calc 53.08 Est GFR (MDRD) Af Amer 55 L Est GFR (MDRD) Non-Af 45 L BUN/Creatinine Ratio 11.8 Glucose 95 Calcium 8.3 L Phosphorus Magnesium 2.7 H Total Bilirubin 1.10 H Direct Bilirubin 0.32 H AST 55 H ALT 71 H Alkaline Phosphatase 76 Total Protein 6.9 Albumin 3.4 Globulin 3.5 Urine Opiates Screen Urine Methadone Screen Ur Barbiturates Screen Ur Phencyclidine Scrn Ur Amphetamines Screen U Methamphetamin-MDMA U Benzodiazepines Scrn Urine Cocaine Screen U Cannabinoids Screen Ur Drug Screen Comment Ethyl Alcohol Consultations 03/20/18 09:00 Consult: Mental Health/Crisis Routine Reason for consult?: Suicidal ideation and attempt Date Notified:: 03/20/18 Time notified:: 04:20 Operations: None Procedures: None Summary of Care Provided: The patient is a 52 year old M with a history of CAD, depression, hyperlipidemia, hypertension and anxiety disorder. He was admitted via the ED with a complaint of suicidal ideation. Per admitting ED note, patient was found with a crossbow in his mouth by his neighbor after he said he believes the world was coming to an end. He said had had multiple dreams to this effect and so he did not want to wait for the work to end; he therefore put a crossbow in his mouth to kill himself. His neighbor called the police and he was brought in. He has several previous attempts at suicide. Patient also takes a lot of alcohol and states he drinks about 6-10 cans of beer a day. His last drink was the day before admission, he states he drank about 6 cans of beer.. Alcohol level was above 300 on admission. He could not be admitted by mental health service on account of elevated alcohol levels will was admitted to be managed for alcohol detox and then to be seen by mental health crisis facility when he was stable. At time of review vitals were temperature 97.7?F, blood pressure is 150/94, pulse rate of 97 and respiratory rate of 18. He has been admitted to be managed for his suicidal ideations and alcohol detox. Patient remained suicidal and severely depressed. He was evaluated by mental health crisis who felt that he was still severely depressed and suicidal. However they could not initially place him in a psych facility because was told that he was in delirium tremens. Patient however had mild bilateral tremors. His CIWA score did fluctuate to around 0 at time of review 2 around 13-16 when he had not received his Librium. However I will stress to mental health team that it was urgent and the patient was evaluated for his main problem which was suicidal ideation and severe depression as he was not getting any care for that also [facility]. It was imperative that patient got into a psych facility that could take care of his alcohol detox as well as handle his suicidal and severe depression. Patient was eventually accepted into [facility] in [facility]. [] Discharge Diet: 2000 mg Sodium Diet Discharge Activity: Return to Normal Activity Weight Bearing Status: Weight bearing as tolerated Home Medications: Medications to take at Discharge Omeprazole [Prilosec] 20 mg PO DAILY 06/17/14 Aspirin [Adult Low Dose Aspirin EC] 81 mg PO DAILY 06/17/16 Cyclobenzaprine [Flexeril] 10 mg PO PRN PRN 06/17/16 Nitroglycerin [Nitrostat] 0.4 mg SUBLINGUAL Q5M PRN 03/14/17 L.acidoph,Paracasei, B.lactis [Probiotic] 1 ea PO DAILY 11/21/17 Melatonin [Melatin] 3 mg PO DAILY 11/21/17 Escitalopram Oxalate [Lexapro] 20 mg PO DAILY #30 tab 11/23/17 atorvastatin 80 mg tablet 80 mg PO QHS #30 tab 12/20/17 clopidogrel 75 mg tablet 75 mg PO QDAY #30 tab 12/20/17 lisinopril 5 mg tablet 5 mg PO DAILY #30 tab 12/20/17 metoprolol tartrate 25 mg tablet 12.5 mg PO BID #60 tab 12/20/17 Primary Care Physician: Care Physician,No Primary [Primary Care Provider] - Please follow up with your Primary Care Physician in: one week Disposition: Psych Hospital or Unit Minutes spent on discharge:: 35 Patient Condition:: Stable Medical Necessity - Tobacco Use Smoking Status: Current every day smoker Meaningful Use Info Meaningful Use Diagnoses (Choose all that apply): None applicable Code Visit Inpatient E&M: 60638 Disch Hosp
--- NOTE | 2018-03-22 11:31 | CASEMGMT ---
Pt was transferred to [facility] on 03/21/18. CONSTANCE White, RUBÉN
== END 2018-03-21 19:10 | disposition designated cancer center or children's hospital (05) | DRG 467 ==
LOC: ED 03-20 04:58 → ICU 03-20 07:16
PROVIDERS: Emergency Medicine; Family Medicine; Admitting Provider Student in an Organized Health Care Education/Training Program; Emergency Provider Emergency Medicine; Visit Provider Student in an Organized Health Care Education/Training Program
DX: R45.851 Suicidal ideations (principal); F10.229 Alcohol dependence with intoxication, unspecified; E83.42 Hypomagnesemia; I25.10 Atherosclerotic heart disease of native coronary artery without angina pectoris; E78.5 Hyperlipidemia, unspecified; I10 Essential (primary) hypertension; F41.9 Anxiety disorder, unspecified; Y90.8 Blood alcohol level of 240 mg/100 ml or more; E66.9 Obesity, unspecified; Z68.30 Body mass index [BMI] 30.0-30.9, adult; F17.200 Nicotine dependence, unspecified, uncomplicated
CPT/HCPCS: 80048; 80076; 80307; 80320; 83735; 84100; 85025; 93005; 99284; J7120; A4216; G0480

== ENCOUNTER → 2018-11-24 12:25 | Outpatient (CLI) | payer MEDICAID, SELFPAY ==
[2017-11-21 12:50] VITALS: BMI 32.3
[2018-09-29 13:01] VITALS: BMI 31.7
--- NOTE | 2018-11-24 12:28 | STEWCON_ITS ---
Reason For Study: Chest Pain Stress Results Protocol: Will Protocol Maximum Predicted HR: 169 bpm Target HR: 144 bpm % Maximum Predicted HR: 91 % Heart Stage Duration Rate BP Comment (mm:ss) (bpm) No Chest Pain; Diluted Definity 6 ML Given; Prior to Test, HR 133 BPM Sinus Tachycardia and BP 184/120-Patient Baseline 105 138/82Shaking/Anxious/Diaphoretic, Metoprolol 5 MG Given Slow IVP Per order; BP 138/82 and HR 105 BPM After Metoprolol Given Will Protocol 3:00 136 146/72No Chest Pain; Mild to Moderate Dyspnea; Anxious; Shaking Stage I Will Protocol 3:00 153 160/72No Chest Pain; Moderate to Severe Dyspnea; Anxious; Shaking Stage II Recovery 126 146/90No Chest Pain; No Dyspnea; Less Anxious Stress Duration: 6:00 mm:ss Maximum Stress HR: 153 bpm METS: 7 Baseline Echocardiogram Findings The estimated ejection fraction is 65 %. Stress Echo Wall motion Data Resting WM Intermediate WM Stress WM Resting Wall Motion Wall Motion Stress Lateral-Basal: Mildly No regional wall motion hypokinetic. abnormalities noted. EKG Data The baseline ECG displays normal sinus rhythm. The patient exercised according to the regular Will protocol for a total duration of 6:00. The maximum heart rate attained was 171 beats per minute. This was 101% of maximum predicted heart rate. The patient exercised into stage 3 of the Will protocol. During stress, there were no ST or T wave changes noted to suggest ischemia. No clinical angina was noted. No arrhythmias noted. Interpretation Summary The estimated ejection fraction is 65 %. Lateral-Basal: Mildly hypokinetic Normal, adequate, treadmill echocardiogram. Negative for ischemia by EKG and echocardiographic criteria. No anginal symptoms noted. No arrhythmias noted. Appropriate blood pressure response to exercise. Below average exercise capacity for age. Patient had baseline posterior lateral hypokinesis which augmented with exercise. Final LVEF is 75%. Decreased sensitivity due to poor echo windows requiring Definity agent. No complications. Recommend alternative mode of testing or cardiac catheterization if coronary artery disease is strongly suspected. The study was technically difficult. Contrast injection was performed. Ordering Physician: Chris Martin Referring Physician: Keren Kwon Performed By: Olivier Mckeon RCS
== END ==
PROVIDERS: Family Provider Registered Nurse; PCP Registered Nurse; Referring Provider Internal Medicine Cardiovascular Disease; Visit Provider Internal Medicine Cardiovascular Disease
DX: I25.10 Atherosclerotic heart disease of native coronary artery without angina pectoris (principal); I25.2 Old myocardial infarction; R07.9 Chest pain, unspecified; Z95.5 Presence of coronary angioplasty implant and graft
CPT/HCPCS: 93017; 93350; Q9957; A4216; C8928

== ENCOUNTER 2019-01-12 11:58 | Day surgery (SDC) | payer MEDICAID, SELFPAY ==
[2017-11-21 12:50] VITALS: BMI 32.3
[2018-09-29 13:01] VITALS: BMI 31.7
--- NOTE | 2019-01-08 18:28 | PCM.HP.BLA ---
History and Physical Date of Admission: 01/12/19 HISTORY AND PHYSICAL ? [address] Rol[address] Garcia 1965 ? REFERRING PHYSICIAN: ??Keren Kwon (Supervisor [employer]), * ? CHIEF COMPLAINT: ??Consult (Consult GERD/ diarrhea) ? HPI: The patient is a 52 year old male referred for endoscopy. ?Rd notes the following GI complaints:???Rd?denies abdominal pain.. ?Rd notes very occasional diarrhea. ??Rd denies?constipation. ?Rd denies?a change in bowel habits. ?Rd denies?melena. ?Rd denies?bright red blood per rectum. ???Rd denies?hemorrhoids. ? ? The patient??notes the following upper complaints:???Rd?denies true?abdominal pain. ???Rd?notes?heartburn. ??Rd denies?dysphagia. ?Rd denies?a history of ulcers/ peptic ulcer disease. ? ? Rd?has not?undergone prior endoscopy. ?His father was diagnosed with colon cancer at age 65 ? The patient is being seen by me today at the request of?Keren Kwon APRN.[employer]??for my opinion and advice regarding chronic reflux and a family history of colon cancer. ? The patient had a non-ST segment elevation myocardial infarction with a stent placed in September 2017. ?His signals collector/analyst is Dr. Martin. ?He is currently scheduled for a stress test but that had to be postponed. ?He is currently taking Brillenta?but that may be stopped after the stress test. ? The patient has a history of alcoholism. ?He drank up to 48 beers per week. ?He has now no longer drinking. ?He is taking a long injectable nalaxone?to like medication - Vivitrol - which is indicated to prevent remission for chronic alcohol abuser's and I understand is a partial opiate antagonist. ? ? PAST?MEDICAL?HISTORY PAST MEDICAL HISTORY Diagnosis Date ? Alcohol abuse ? ? CSF abnormal ? ? GERD (gastroesophageal reflux disease) ? ? HTN (hypertension) ? ? Syncope ? ? ? PAST?SURGICAL?HISTORY PAST SURGICAL HISTORY Procedure Laterality Date ? CRANIO/MAXILLO-FACIAL SURGERY ? 1989 ? orbital blow out fracture/ [place] ? PTCA SNGL VSSL LC ? 11/21/2017 ? JUSTIN left circ ? TONSILLECTOMY HX ? ? ? TREAT SHOULDERBLADE FRACTURE ? CURRENT?MEDICATIONS ? Current Outpatient Medications: naltrexone ER (VIVITROL) 380 mg injection Inject 380 mg intramuscularly one time only. peg 3350-Electrolytes (GOLYTELY) 236-22.74-6.74 -5.86 gram suspension Take 4,000 mL by mouth one time only for 1 dose. quetiapine fumarate (SEROQUEL ORAL) Take 75 mg by mouth. sertraline (ZOLOFT) 50 mg tablet Take 1 tablet by mouth once daily. metoprolol tartrate, short acting, (LOPRESSOR) 25 mg tablet Take 1 tablet by mouth twice daily. ticagrelor (BRILINTA) 90 mg tablet Take 1 tablet by mouth twice daily. cyclobenzaprine (FLEXERIL) 10 mg tablet Take 1 tablet by mouth once daily. thiamine (VITAMIN B1) 100 mg tablet Take 1 tablet by mouth once daily. acetaminophen (TYLENOL EXTRA STRENGTH) 500 mg tablet Take 1 tablet by mouth every 6 hours as needed for Pain. lisinopril (ZESTRIL, PRINIVIL) 5 mg tablet Take 1 tablet by mouth once daily. atorvastatin (LIPITOR) 80 mg tablet Take 1 tablet by mouth daily at bedtime. omeprazole (PRILOSEC) 20 mg capsule Take 1 capsule by mouth daily before breakfast. 1/2 hr before meal. nitroglycerin sublingual (NITROQUICK) 0.4 mg SL tablet Dissolve 1 tablet under the tongue as needed. FOR CHEST PAIN. IF NO RELIEF CALL 911 polyethylene glycol 3350 (MIRALAX) 17 gram/dose powder Take 17 g by mouth once daily. ? No current facility-administered medications for this visit.? ? ALLERGIES:?Sudafed [Pseudoephedrine] ? PERSONAL HISTORY:? SOCIAL?HISTORY Social History ??Socioeconomic History ?Marital status: Single ?Spouse name: Not on file ?Number of children: Not on file ?Years of education: Not on file ?Highest education level: Not on file ??Social Needs ?Financial resource strain: Not on file ?Food insecurity - worry: Not on file ?Food insecurity - inability: Not on file ?Transportation needs - medical: Not on file ?Transportation needs - non-medical: Not on file ??Occupational History ?Not on file ??Tobacco Use ?Smoking status: Former Smoker ?Packs/day: 0.50 ?Start date: 12/30/1983 ?Quit date: 05/30/2014 ?Years since quittin.4 ?Smokeless tobacco: Former User ?Types: Snuff ?Tobacco comment: Very few, very infrequently. Father smoked in childhood home. ??Substance and Sexual Activity ?Alcohol use: Yes ?Alcohol/week: 126.0 oz ?Types: 84 Cans of Beer (12oz) per week ?Comment: Binge drinking at times, worse with stress. ?Drug use: Yes ?Comment: Occassional marijuana, 03/2014. Huffed spray paint and glue briefly, ages [age]. Whippets in mid to late teens. TO ?Sexual activity: Never ??Other Topics ?Concerns: ?Not on file ??Social History Narrative ?Lives with his father. ?Since ~2006. 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 ? FAMILY HISTORY:? FAMILY?HISTORY FAMILY HISTORY Problem Relation Age of Onset ? Psychiatry Mother ? ? Heart Mother ?IN 53 ? Heart Father ?IN 51 ? Colon Cancer Father ? ? REVIEW OF SYMPTOMS: ??The review of systems data was entered by the nurse and reviewed by me ? There are no exam notes on file for this visit. ? ? PHYSICAL EXAMINATION: ? General: ?The patient is 52 year old male, well nourished, well hydrated in no acute distress. ?The patient is oriented to time, place, and person. ? VITALS:?Blood pressure 124/94, pulse 107, temperature 36.2 ?C (97.2 ?F), temperature source Temporal Artery, height 177.8 cm (5' 10), weight 100.2 kg (220 lb 12.8 oz), SpO2 98 %.?Body mass index is 31.68 kg/m?.? ? HEENT: ?Normal cephalic, ataumatic, pupils are equally round, sclera are anicteric, mucous membranes are moist, oropharynx is clear. ?Neck has no masses, asymmetry or lymphadenopathy. ?Thyroid is unremarkable. ? Respiratory: ?Clear to auscultation and percussion. ?Normal respiratory excursion and pattern. ? Cardiac: ?Examination is regular rate and rhythm. ? Abdominal exam: ?Soft, nontender, ?with no palpable masses. ?No hepatosplenomegaly. ?No palpable hernias. ? Rectal exam:?exam deferred ? Extremities: ?no clubbing, cyanosis or edema. ?No adenopathy. ? Other: ? LABORATORY VALUES: As Noted ? RADIOLOGIC STUDIES: ?As Noted ? Assessment ? IMPRESSION: Long-standing history of reflux, family history of colon cancer, previous IN, opiate antagonist use ? PLAN: ?I plan to perform upper and lower?endoscopy. ??We discussed the risks and benefits of the planned endoscopy. ?I have informed the patient that complications can occur including failure to complete the endoscopy and perforation. ?The patient had the opportunity to ask questions concerning the planned endoscopy. ?My staff has also explained the procedure to the patient in understandable terms and has given the patient printed material concerning the procedure. ?The patient freely consents to surgery. ? I plan to use golytely bowel preparation for endoscopy ? The patient has medical comorbidities for which I plan to perform the procedure under monitored anesthetic care. ? We'll plan for endoscopy following the patient's stress test and approval by Dr. Martin. ? Diagnoses:?(Z80.0) Family history of colon cancer in father ?(primary encounter diagnosis) (K21.9) Gastroesophageal reflux disease without esophagitis ? My findings have been communicated to??Doyle?via shared medical record. ?This note will be forwarded to Keren Kwon APRN.[employer]. ?? Return to Clinic: The patient is instructed to follow-up with me?after the testing has been completed. ? Deric Payton MD
--- NOTE | 2019-01-12 | IMM_PTH ---
PATIENT: BETHANY MONTALVO LOC: EN U#:[id number] AGE/SX: 53/M ROOM: RE01/12/[address]: Dr. Deric Payton MD : 1965 BED: DIS: 01/12/2019 SPEC #: [id number] RECD: 01/14/19 10:39 STATUS: MOISES REYael #: [id number] JEN: 01/12/19 00:[address]: Deric Payton DEPT: IMMUNOHISTOCHEMISTRY RECD BY: Mayda Encarnacion ENTERED: 01/14/19 10:40 SP TYPE: IMMUNO OTHR DR: Keren Kwon, XUAN Tissues: A - Stomach, NOS Procedures: H Pylori (initial) PHYSICIAN & INSTITUTION [place] [id number] SPECIMEN INFORMATION: Tissue Source: A - Antral biopsy Clinical Info: Reflux Specimen Number: [id number] CPT code: 87991 METHODOLOGY: Deparaffinized sections of prefer/formalin-fixed tissue or PAP/DQ stained slides are incubated with monoclonal/polyclonal antibodies/oligonucleotide probes. Localization is made via biotin free immunoperoxidase method. Appropriate controls are performed and reacted as expected. Results on target cell population are indicated in the following table: RESULTS: ANTIBODY / CLONE RESULT Block A H Pylori (polyclonal) negative These tests were developed and their performance characteristics determined by [facility]. They may not have been cleared or approved by the U.S. Food and Drug Administration. The FDA has determined that such clearance or approval is not necessary. INTERPRETATION: A. Antral biopsy: Negative for Helicobacter pylori organisms. FA:jono 01/14/19
[2019-01-12 12:42] VITALS: BP 144/88; PULSE 88; RESP 16; TEMP 36.3; O2SAT 100; BMI 30.1
--- NOTE | 2019-01-12 12:45 | GASB_PTH ---
PATIENT: BETHANY MONTALVO LOC: EN U#:[id number] AGE/SX: 53/M ROOM: RE01/12/[address]: Dr. Deric Payton MD : 1965 BED: DIS: 01/12/2019 SPEC #: [id number] RECD: 01/12/19 15:01 STATUS: MOISES MARY #: [id number] JEN: 01/12/19 12:[address]: Deric Payton DEPT: SURGICAL PATHOLOGY RECD BY: Ashok Gomez ENTERED: 01/13/19 09:30 SP TYPE: Gastric Bx OTHR DR: Keren Kwon, XUAN Tissues: A - Gastric mucous membrane B - Gastric fundus C - Gastric mucous membrane D - Ileum, NOS E - COLON BIOPSY F - COLON BIOPSY Procedures: Special Stain Group II Surgery Specimen Level IV Alcian Blue/PAS (control) HEADER OPERATION: Colonoscopy, EGD ([facility]) PRE-OP DIAGNOSIS: Reflux, family history colon cancer TISSUE SUBMITTED: A - Antral biopsy, B - Fundic polyp, C - GE junction biopsy, D - Terminal ileum biopsy, E - Random colonic biopsies, F - Polyps at 30 cm MICROSCOPIC DIAGNOSIS A. Stomach, antral biopsy: Gastric antral mucosa with no significant pathologic changes. Negative for Helicobacter pylori organisms. See comment. B. Fundic polyp: Fundic gland polyp. C. GE junction biopsy: Squamogastric GE junction mucosa with mild chronic inflammation. Special stain Alcian blue/PAS negative for intestinal goblet cells (Alvarenga's esophagus). Negative for dysplasia. D. Terminal ileum biopsy: Small bowel mucosa with mild chronic nonspecific inflammation in the lamina propria. Surface villi intact. E. Random colonic biopsies: Fragments of colonic mucosa with mild chronic nonspecific inflammation in the lamina propria. Negative for active colitis or dysplasia.. F. Polyp at 30 cm: Fragments of tubular adenoma and hyperplastic polyps. FA:jono 01/14/19 COMMENT A. The results of immunohistochemistry for Helicobacter pylori will be reported separately ([id number]). MICROSCOPIC DESCRIPTION Slides are reviewed. GROSS DESCRIPTION A - Received in fixative is one container labeled with the patient's name and designated antral biopsy. The specimen consists of a single pinkish-garcia biopsy fragment measuring up to 3 mm in greatest dimension. The specimen is totally submitted in one cassette. B - Received in fixative is one container labeled with the patient's name and designated fundic polyp. The specimen consists of a single pinkish-garcia biopsy fragment measuring up to 2 mm in greatest dimension. The specimen is totally submitted in one cassette. C - Received in fixative is one container labeled with the patient's name and designated GE junction biopsy. The specimen consists of a single pinkish-garcia biopsy fragment measuring up to 2 mm in greatest dimension. The specimen is totally submitted in one cassette. D - Received in fixative is one container labeled with the patient's name and designated terminal ileum biopsy. The specimen consists of a single pinkish-garcia biopsy fragment measuring up to 2 mm in greatest dimension. The specimen is totally submitted in one cassette. E - Received in fixative is one container labeled with the patient's name and designated random colonic biopsies. The specimen consists of two pinkish-garcia biopsy fragments measuring up to 3 mm in greatest dimension. The specimen is totally submitted in one cassette. F - Received in fixative is one container labeled with the patient's name and designated polyp at 30 cm. The specimen consists of multiple pinkish-garcia polypoid tissue fragments ranging from 2 to 3 mm in greatest dimension. The specimen is totally submitted in one cassette. / FA:jono 01/13/19 TC:1 CPT: 00000 x6, 17704
--- NOTE | 2019-01-12 13:50 | OP.ENDO_ITS ---
01/12/2019 Keren Kwon Re : Upper GI endoscopy procedure for Rd Garcia Dear Doyle This procedure was performed on Saturday, January 12, 2019. My impressions and recommendations are as follows: Impressions : - Normal examined jejunum. - Normal examined duodenum. - Gastritis. Biopsied. - A few gastric polyps. Resected and retrieved. - Mildly severe reflux esophagitis. Biopsied. Recommendations : - Return to physician planning assistant in 1 week. - Continue present medications. My findings are described in the full procedure note, which is enclosed. If I can be of further assistance, please feel free to contact me at Doctor phone number(s): , Work: . Sincerely, Deric Payton MD 01/12/2019 1:49:27 PM This report has been signed electronically.
[2019-01-12 13:51] VITALS: BP 101/63; BP 144/88; PULSE 86; RESP 16; TEMP 36.6; O2SAT 95
[2019-01-12 13:55] VITALS: BP 144/88; BP 99/66; PULSE 81; RESP 16; O2SAT 96
[2019-01-12 14:02] VITALS: BP 101/72; BP 144/88; PULSE 80; RESP 18; O2SAT 97
--- NOTE | 2019-01-12 14:03 | OP.ENDO_ITS ---
01/12/2019 Keren Kwon Re : Colonoscopy procedure for Rd Guadalupe Doyle This procedure was performed on Saturday, January 12, 2019. My impressions and recommendations are as follows: Impressions : - The examined portion of the ileum was normal. Biopsied. - The entire examined colon is normal. Biopsied. - Two small polyps at the recto-sigmoid colon, removed with a cold snare. Resected and retrieved. - The distal rectum and anal verge are normal on retroflexion view. - Diverticulosis in the sigmoid colon. Recommendations : - Discharge patient to home. - Resume previous diet. - Continue present medications. - Return to physician information technology assistant in 1 week. - Repeat colonoscopy is recommended. The colonoscopy date will be determined after pathology results from today's exam become available for review. My findings are described in the full procedure note, which is enclosed. If I can be of further assistance, please feel free to contact me at Doctor phone number(s): , Work: . Sincerely, Deric Payton MD 01/12/2019 2:03:20 PM This report has been signed electronically.
[2019-01-12 14:10] VITALS: BP 113/79; BP 144/88; PULSE 80; RESP 18; O2SAT 98
[2019-01-12 14:19] VITALS: BP 144/88
== END 2019-01-12 14:54 | disposition home or self-care (01) ==
LOC: EN 11:59 → AC 12:00
PROVIDERS: Family Provider Registered Nurse; PCP Registered Nurse; Referring Provider Surgery; Visit Provider Surgery
PROC: 0DJD8ZZ Inspection of Lower Intestinal Tract, Via Natural or Artificial Opening Endoscopic (ICD-10-PCS; CPT 45378; principal; 2019-01-12 12:40)
DX: K21.0 Gastro-esophageal reflux disease with esophagitis (principal); K29.70 Gastritis, unspecified, without bleeding; K31.7 Polyp of stomach and duodenum; D12.7 Benign neoplasm of rectosigmoid junction; K57.30 Diverticulosis of large intestine without perforation or abscess without bleeding; R10.84 Generalized abdominal pain; R19.7 Diarrhea, unspecified; I25.2 Old myocardial infarction; I10 Essential (primary) hypertension; N28.9 Disorder of kidney and ureter, unspecified; F32.9 Major depressive disorder, single episode, unspecified; F41.9 Anxiety disorder, unspecified; F12.90 Cannabis use, unspecified, uncomplicated; F10.20 Alcohol dependence, uncomplicated; Z95.5 Presence of coronary angioplasty implant and graft; Z79.899 Other long term (current) drug therapy; Z87.891 Personal history of nicotine dependence; Z80.0 Family history of malignant neoplasm of digestive organs
CPT/HCPCS: 43239; 45380; 45385; 88305; 88313; 88342; J7120

== ENCOUNTER 2019-02-09 14:55 | Emergency (ER) | payer MEDICAID, SELFPAY ==
[2017-11-21 12:50] VITALS: BMI 32.3
[2019-02-09 14:56] VITALS: BP 120/82; PULSE 109; RESP 18; TEMP 37.3; O2SAT 97; BMI 31.5
--- NOTE | 2019-02-09 17:00 | CT_ITS ---
STUDY: CT ABDOMEN AND PELVIS WITHOUT CONTRAST REASON FOR EXAM: Male, 53 years old. Pain RADIATION DOSAGE (If Supplied By Facility): DLP = ( 881.92 ) mGycm TECHNIQUE: Transaxial images were obtained from the dome of the diaphragm to the symphysis pubis without oral contrast, and without intravenous contrast. Sagittal and coronal images were reconstructed. Individualized dose optimization techniques were used for this CT. COMPARISON: None. FINDINGS: Evaluation of the abdominal viscera is limited in the absence of intravenous contrast. The visualized lung bases are clear. The visualized portions of the heart and pericardium are within normal limits. There are no calcified gallstones present. The liver demonstrates an unremarkable unenhanced appearance. The spleen is normal in size. The pancreas demonstrates an unremarkable unenhanced appearance. The adrenal glands are within normal limits. There are no obstructing renal stones. There is no hydronephrosis. Normal visualized stomach. There is no bowel obstruction or inflammation. The appendix is normal. The aorta is normal in caliber. There is no abdominal or pelvic free air, free fluid, fluid collection or lymphadenopathy. There are no destructive osseous lesions. CT/Abdomen/Pelvis without Cont IMPRESSION: No acute abdominal or pelvic pathology demonstrated on this noncontrast CT. Electronically Signed: Desmond Waldron, at 18:23 EDT Tel , Service support ,
--- NOTE | 2019-02-09 17:18 | ED.VISSUMM ---
- ER Visit Summary Date of Service: 02/09/19 Chief Complaint: Abdominal pain History of Present Illness: The patient is a 53 M who presents the emergency department with right lower quadrant abdominal pain. Patient states for the past week he has had pain in the right hip right lower quadrant. Is steadily worsened. Was intermittent but became constant last night. Radiate into his testicles. He last had Tylenol 1130. He gets Vivitrol injections last one was 1 month ago. No urinary symptoms. Last bowel movement was today. Nausea no vomiting. Physical Examination: Afebrile vital signs are stable Gen: Well-nourished well-developed Head: Normocephalic atraumatic Eyes: Perrl EOMI ENT: TMs clear no rhinorrhea moist mucous membranes Neck: Supple no lymphadenopathy no JVD nontender CVS: Regular rate rhythm no murmurs normal S1-S2 Respiratory: No distress clear to auscultation bilaterally chest nontender Abdomen: Soft tender palpation right lower quadrant nondistended normal bowel sounds no masses Back: Nontender Extremity: Nontender no edema Skin: Normal color no rash Neuro: alert orientated ?3 CN II-XII intact normal strength sensation reflexes gait cerebellar Psych: Normal affect normal mood Test Results: CBC sent chemistry showed a creatinine 1.32. Urinalysis negative. CT of the flank was negative hip x-rays negative Emergency Department Course and Treatment: Received Toradol for pain. I do not have a etiology for the patient's pain. However it has been present for at least a week and he is having a negative evaluation in the emergency department. I think he is safe for outpatient follow-up. Impression: 1. Acute abdominal pain 2. Left hip pain This note was generated with [employer] dictation software. It may contain incorrect words, spelling, and punctuation that were not noted in review of the chart prior to signing ED Disposition - Plan for ED Patient: Disposition: Home or Assisted Living Instructions: ABDOMINAL PAIN, Unkown Cause, (Male) Referrals: Keren Kwon NP-C [Primary Care Provider] - 1 Day for another exam Additional Instructions: Motrin 600 mg every 6-8 hours as needed for pain
[2019-02-09] MEDS: 0.9% Normal Saline 1,000 ML 250 ML IV (17:42)
[2019-02-09] MEDS: Ketorolac 30 MG/ML Syringe IV (17:43)
[2019-02-09] MEDS: Ondansetron 4 MG/2 ML Vial IV (17:43)
[2019-02-09 17:48] VITALS: BP 144/92; PULSE 85; RESP 16; O2SAT 97
[2019-02-09 17:51] LABS: Absolute Lymphocyte Count 2.04 X10^3/uL (0.83-4.51); Absolute Neutrophil Count 5.8 X10^3/uL (2.0-7.7); Basophil# 0.04 X10^3/uL; Basophil% 0.4 % (0-1); Eosinophil# 0.31 X10^3/uL; Eosinophils% 3.5 % (0-5); Hematocrit 49.3 % (40-54); Hemoglobin 16.9 g/dL (13.0-16.5); Lymphocyte # 2.04 X10^3/ul (4.0); Lymphocyte % 22.8 % (19-41); Mean Corp Hgb Conc 34.3 g/dL (32-36); Mean Corpuscular Hgb 30.7 pg (27.0-32.0); Mean Corpuscular Volume 89.5 fL (80-94); Mean Platelet Vol. 9.4 fl (6.2-12.0); Monocyte# 0.69 X10^3/uL; Monocyte% 7.7 % (0-10); NRBC Flagged by Analyzer 0 % (0-5); Neutrophil # 5.83 X10^3/uL (2.7-7.7); Neutrophil % 65.2 % (47-70); Platelet Count 169 K/mm3 (150-450); RBC Distribution Width SD 42.6 fl (35.1-43.9); Red Blood Count 5.51 M/mm3 (4.6-6.2)
[2019-02-09 17:58] LABS: Bacteria 0 SEEN /hpf (None Seen); Red Blood Cells-Urine 0 SEEN /hpf (0-5); Squamous Epithelial Cells - UA 0 SEEN /hpf (0-5)
[2019-02-09 18:02] LABS: Anion Gap 9 (5-15); BUN 17 mg/dL (7-18); BUN/Creat Ratio 12.9 RATIO (10-20); Calcium,Total 9.3 mg/dL (8.5-10.1); Chloride 103 mmol/L (98-107); Creatinine, Serum 1.32 mg/dL (0.70-1.30); EST Glomerular Filtration Rate 61 mL/min (>60); Est Glom Filt Rate - Afr Amer 73 mL/min (>60); Estimated Creatinine Clearance 67.59 ml/min; Glucose 104 mg/dL (74-106); Potassium 4.5 mmol/L (3.5-5.1); Sodium Level 140 mmol/L (136-145)
[2019-02-09 18:24] LABS: Color, Urine Yellow (Yellow); Glucose, Dipstick Normal (Normal); Ketone-Dipstick 5 mg/dl (Negative); Leukocyte Esterase-Dipstick 25 /ul (Negative); Nitrite-Dipstick Negative (Negative); Occult Blood-Urine 10 /ul (Negative); Protein-Dipstick 30 mg/dl (Negative); Urine Clarity Clear (Clear); Urine Urobilinogen 1 mg/dl (Normal)
[2019-02-09 18:25] LABS: Urine Bilirubin Dipstick 1 mg/dL (Negative); White Blood Cells 0-5 SEEN /hpf (0-5)
[2019-02-09 18:26] LABS: Hyaline Cast 0-5 SEEN /lpf (0-5); Mucous, Urine 3+ /hpf (<or=2+)
[2019-02-09 18:31] LABS: Calcium Oxalate Crystals Ur 1+ /hpf (<or=2+)
--- NOTE | 2019-02-09 18:47 | RAD_ITS ---
STUDY: X-RAY - PELVIS AND RIGHT HIP REASON FOR EXAM: Male, 53 years old. Right lower quadrant pain TECHNIQUE: 3 views of the pelvis and hip. COMPARISON: None. FINDINGS: There is a non-specific bowel gas pattern. Normal visualized soft tissue structures. Normal bilateral iliac wings, sacroiliac joints and visualized sacrum. Normal bilateral superior and inferior pubic rami. Normal pubic symphysis. Normal bilateral ischial tuberosities. Normal visualized femoral head. Normal acetabulum. Normal hip joint. Right femoral neck bone island noted. RAD/HIP, UNI W/ Pelvis 2-3 Views IMPRESSION: Normal x-ray examination of the pelvis and hip. Electronically Signed: Desmond Waldron, at 19:10 EDT Tel , Service support ,
[2019-02-09 19:03] VITALS: RESP 17
[2019-02-09 19:57] VITALS: BP 122/71; PULSE 68; RESP 17; O2SAT 98
== END 2019-02-09 19:58 | disposition home or self-care (01) ==
PROVIDERS: Emergency Provider Emergency Medicine; Family Provider Registered Nurse; PCP Registered Nurse
DX: R10.31 Right lower quadrant pain (principal); M25.551 Pain in right hip; I25.10 Atherosclerotic heart disease of native coronary artery without angina pectoris; I10 Essential (primary) hypertension; K21.9 Gastro-esophageal reflux disease without esophagitis; Z72.89 Other problems related to lifestyle; Z79.82 Long term (current) use of aspirin; Z79.899 Other long term (current) drug therapy
CPT/HCPCS: 73502; 74176; 80048; 81001; 85025; 96361; 96374; 96375; 99284; J7030; A4216; J2405

== ENCOUNTER 2019-05-28 13:33 | Emergency (ER) | payer MEDICAID, SELFPAY ==
[2017-11-21 12:50] VITALS: BMI 32.3
[2019-05-28 13:35] VITALS: BP 172/130; PULSE 104; RESP 20; TEMP 36.6; O2SAT 98; BMI 32.6
[2019-05-28 13:59] VITALS: BP 190/126; PULSE 105; RESP 14; TEMP 36.7; O2SAT 98
--- NOTE | 2019-05-28 14:01 | EKG12_ITS ---
Test Reason : GEN ILLNESS Blood Pressure : / mmHG Vent. Rate : 100 BPM Atrial Rate : 100 BPM P-R Int : 142 ms QRS Dur : 084 ms QT Int : 366 ms P-R-T Axes : 046 005 046 degrees QTc Int : 472 ms Normal sinus rhythm Normal ECG Confirmed by MERRITT ANSARI, ETTA ([id number]), associate entertainment editor SHAHID BARRON ([id number]) on 06/02/2019 2:34:11 PM Referred By: ALFREDITO Confirmed By:ETTA BANG MD
--- NOTE | 2019-05-28 14:04 | ED.VIS.GEN ---
History of Present Illness Chief Complaint: General Illness Detail of Chief Complaint: Cough, congestion, body aches Informant: Patient Onset: Days - 4 days Context: Gradual Onset Timing: Waxes and wanes Current Severity: Moderate Maximum Severity: Moderate Narrative: Patient presents with cough with yellow to green sputum. Congestion, generalized body aches. He denies fever. He states that he was at a bonfire the evening prior to symptom onset and believe that triggered his illness. He reportedly has a history of lung problems and states things like that tend to trigger his congestion and cough. He does have a history of COPD but does not use a inhalers regularly. He has history of coronary artery disease with one cardiac stent. Patient initially went to urgent care but was told to come to the emergency room secondary to his cardiac history. Past Medical History - Allergies and Home Meds Allergies/Adverse Reactions: Allergies pseudoephedrine Adverse Reaction (Verified 05/28/19 13:35) Other CAUSES PROSTATE TO ENLARGE AND UNABLE TO URINATE Primary Care Physician: Keren Kwon NP-C [Primary Care Provider] - 3-5 Days if not improving Prior records reviewed: Yes Past Medical History: - - Reviewed Surgical History: no surgical history Smoking Status: Former smoker Alcohol: Occasional - Family History Paternal Family History: Family History (Last Reviewed 09/29/18 @ 12:54 by Madisyn Moss) Mother CAD (coronary artery disease) Father CAD (coronary artery disease) Brother CAD (coronary artery disease) Myocardial infarction Sister CAD (coronary artery disease) Family History: Reports: Heart Disease Maternal Family History: Family History (Last Reviewed 09/29/18 @ 12:54 by Madisyn Moss) Mother CAD (coronary artery disease) Father CAD (coronary artery disease) Brother CAD (coronary artery disease) Myocardial infarction Sister CAD (coronary artery disease) Family History: Reports: Heart Disease Review of Systems General: Denies: Chills, Fever Eyes: Denies: Visual changes - bilaterally ENT: Denies: Bilateral ear pain Cardiovascular: Reports: Chest pain - Lungs feel tight Respiratory: Reports: Dyspnea, Cough, Sputum Gastrointestinal: Denies: Abdominal pain, Vomiting, Diarrhea Musculoskeletal: Reports: Myalgias. Denies: Swelling, Extremity Pain Skin: Denies: Rash Neurological: Denies: Headache Hematologic: Denies: Easy bruising Allergy: Denies: Uticaria Physical Exam Vital Signs/Narrative: Vital Signs Temp Pulse Resp BP Pulse Ox 05/28/19 13:59 98.0 F 105 H 14 190/126 H 98 05/28/19 13:35 98 F 104 H 20 H 172/130 H 98 Inital Vital Signs reviewed: Yes General: Well nourished, Well developed Head: Normocephalic ENT: Moist mucous membranes Neck: Supple Cardiovascular: Tachycardia Respiratory: Diminished - Slight diminished air movement throughout. No wheezes appreciated. Abdomen: Soft, Nontender Skin: Normal color Neurological: Alert, Oriented x3 Psychological: Normal affect Diagnostic/Tx/Re-eval Impressions Chest X-Ray 05/28/19 14:14 IMPRESSION: Mild increased interstitial markings at the lung bases suggestive of a viral infection. Follow-up is recommended. Electronically Signed: Jose F Restrepo, at 14:32 EST , Service support , 05/28/19 14:14 Chest 1 View (Portable) [RAD] Stat Laboratory Results 05/28/19 05/28/19 14:22 14:22 WBC 8.8 RBC 4.97 Hgb 15.4 Hct 45.4 MCV 91.3 MCH 31.0 MCHC 33.9 RDW Std Deviation 42.1 RDW Coeff of Rosalee 12.6 Plt Count 184 MPV 9.4 Immature Gran % (Auto) 0.200 Neut % (Auto) 71.3 H Lymph % (Auto) 15.7 L [place] % (Auto) 8.3 Eos % (Auto) 3.9 Baso % (Auto) 0.6 Absolute Neuts (auto) 6.3 Absolute Lymphs (auto) 1.38 Nucleated RBC % 0 Sodium 141 Potassium 4.2 Chloride 102 Carbon Dioxide 29.0 Anion Gap 10 BUN 17 Creatinine 1.28 Estim Creat Clear Calc 69.70 Est GFR (MDRD) Af Amer 76 Est GFR (MDRD) Non-Af 63 BUN/Creatinine Ratio 13.3 Glucose 94 Calcium 8.3 L Total Bilirubin 1.00 Direct Bilirubin 0.23 AST 69 H ALT 89 H Alkaline Phosphatase 132 H Troponin I < 0.015 Total Protein 7.4 Albumin 3.7 Globulin 3.7 - EKG Initial EKG Interpretation: Sinus Rhythm - Sinus at 100 with no acute ischemia. - Medical Decision Making Patient was given IV fluids and Toradol here. He was given a dose of labetalol for blood pressure. He was given a DuoNeb treatment. On repeat evaluation he does report and feeling improved. When I am in the room heart rate is 105, but I been watching him on the monitor at nurses station and heart rate had improved to 89. Systolic blood pressure is still 160. Test results are discussed with the patient. I believe he has a viral syndrome. He will be given a prescription for an inhaler and written off work today and tomorrow. Patient is comfortable with this plan. I did specifically asked the patient if he drinks alcohol. He does admit to this, but states it is been several days since his last drink. He states this does not feel like alcohol withdrawal and he has had similar illness to this several times in the past. ED Disposition - Plan for ED Patient: Disposition: Home or Assisted Living Diagnosis: Viral syndrome Instructions: VIRAL SYNDROME (Adult) Prescriptions: Ketorolac [Toradol] 10 mg PO Q6H PRN #14 tab PRN Reason: Pain Score 1-10/10 Prescription Printed Albuterol Inhaler [Ventolin Hfa] 1 - 2 puff INHALATION Q4H PRN PRN #1 inhaler PRN Reason: Wheezing Prescription Printed Referrals: Keren Kwon NP-C [Primary Care Provider] - 3-5 Days if not improving
--- NOTE | 2019-05-28 14:14 | RAD_ITS ---
STUDY: X-RAY CHEST REASON FOR EXAM: Male, 53 years old. Cough, chest congestion and body aches. TECHNIQUE: Single AP portable view of the chest. COMPARISON: Comparison is made with prior examination dated November 21, 2017. FINDINGS: EKG electrodes are seen. At this time, there is a mild degree of increased interstitial markings at the lung bases. This may represent viral type of infection. Follow-up is recommended. There is no demonstrated pleural abnormality. Normal size heart. Normal mediastinum and bud. Normal visualized pulmonary arteries. Normal visualized aortic arch and descending thoracic aorta. Normal visualized thoracic spine. Normal visualized ribs, clavicles, and shoulders. There is no demonstrated abnormality of the visualized soft tissue structures of the upper abdomen. RAD/Chest 1 View (Portable) IMPRESSION: Mild increased interstitial markings at the lung bases suggestive of a viral infection. Follow-up is recommended. Electronically Signed: Jose F Restrepo, at 14:32 EST , Service support ,
[2019-05-28 14:30] LABS: Absolute Lymphocyte Count 1.38 X10^3/uL (0.83-4.51); Absolute Neutrophil Count 6.3 X10^3/uL (2.0-7.7); Basophil# 0.05 X10^3/uL; Basophil% 0.6 % (0-1); Eosinophil# 0.34 X10^3/uL; Eosinophils% 3.9 % (0-5); Hematocrit 45.4 % (40-54); Hemoglobin 15.4 g/dL (13.0-16.5); Lymphocyte # 1.38 X10^3/ul (4.0); Lymphocyte % 15.7 % (19-41); Mean Corp Hgb Conc 33.9 g/dL (32-36); Mean Corpuscular Volume 91.3 fL (80-94); Mean Platelet Vol. 9.4 fl (6.2-12.0); Monocyte# 0.73 X10^3/uL; Monocyte% 8.3 % (0-10); NRBC Flagged by Analyzer 0 % (0-5); Neutrophil # 6.25 X10^3/uL (2.7-7.7); Neutrophil % 71.3 % (47-70); Platelet Count 184 K/mm3 (150-450); RBC Distribution Width CV 12.6 % (11.6-14.6); RBC Distribution Width SD 42.1 fl (35.1-43.9); Red Blood Count 4.97 M/mm3 (4.6-6.2); White Blood Count 8.8 K/mm3 (4.4-11.0)
[2019-05-28] MEDS: Ketorolac 30 MG/ML Syringe IV (14:46)
[2019-05-28] MEDS: 0.9% Normal Saline 1,000 ML 150 ML IV (14:46)
[2019-05-28 14:48] VITALS: BP 180/127; PULSE 104; RESP 15; TEMP 36.8; O2SAT 98
[2019-05-28 14:51] LABS: AST(SGOT) 69 U/L (15-37); Alanine Aminotransfer ALT/SGPT 89 U/L (16-61); Albumin, Serum 3.7 g/dL (3.2-5.0); Alkaline Phosphatase 132 U/L (45-117); Anion Gap 10 (5-15); BUN 17 mg/dL (7-18); BUN/Creat Ratio 13.3 RATIO (10-20); Bilirubin, Direct 0.23 mg/dL (0.00-0.30); Calcium,Total 8.3 mg/dL (8.5-10.1); Chloride 102 mmol/L (98-107); Creatinine, Serum 1.28 mg/dL (0.70-1.30); EST Glomerular Filtration Rate 63 mL/min (>60); Est Glom Filt Rate - Afr Amer 76 mL/min (>60); Globulin 3.7 g/dL (2.2-4.2); Glucose 94 mg/dL (74-106); Potassium 4.2 mmol/L (3.5-5.1); Protein, Total 7.4 g/dL (6.4-8.2); Sodium Level 141 mmol/L (136-145)
[2019-05-28 15:21] VITALS: PULSE 105; RESP 14; O2SAT 99
[2019-05-28] MEDS: Ipratropium/Albuterol Sulfate 3 ML AMPUL.NEB INHALATION (15:21)
[2019-05-28 16:28] VITALS: BP 163/93; PULSE 101; RESP 16; O2SAT 96
== END 2019-05-28 16:29 | disposition home or self-care (01) ==
PROVIDERS: Emergency Provider Emergency Medicine; Family Provider Registered Nurse; PCP Registered Nurse
DX: B34.9 Viral infection, unspecified (principal); J44.9 Chronic obstructive pulmonary disease, unspecified; I25.10 Atherosclerotic heart disease of native coronary artery without angina pectoris; Z95.5 Presence of coronary angioplasty implant and graft; Z87.891 Personal history of nicotine dependence
CPT/HCPCS: 71045; 80048; 80076; 84484; 85025; 93005; 94640; 96361; 96374; 96375; 99284; J7030; A4216

== ENCOUNTER 2019-05-31 03:02 | Inpatient (IN) | payer MEDICAID, SELFPAY ==
[2017-11-21 12:50] VITALS: BMI 32.3
[2019-05-31] VITALS (19 sets, daily range): BP systolic 159–191; BP diastolic 91–124; PULSE 103–119; RESP 18–22; TEMP 35.7–37.1; O2SAT 93–98; BMI 35.9; BMI 33.5; BMI 33.6
--- NOTE | 2019-05-31 03:07 | EKG12_ITS ---
Test Reason : Blood Pressure : / mmHG Vent. Rate : 110 BPM Atrial Rate : 110 BPM P-R Int : 136 ms QRS Dur : 080 ms QT Int : 366 ms P-R-T Axes : 063 019 055 degrees QTc Int : 495 ms Sinus tachycardia Otherwise normal ECG Confirmed by MERRITT ANSARI, ETTA ([id number]), commercial production editor ELIOT ESCOBEDO ([id number]) on 06/02/2019 2:13:32 PM Referred By: Abraham Sanches Confirmed By:ETTA BANG MD
--- NOTE | 2019-05-31 03:07 | RAD_ITS ---
STUDY: X-RAY CHEST REASON FOR EXAM: Male, 53 years old. Shortness of breath with cough. TECHNIQUE: PA and lateral views of the chest. COMPARISON: 11/21/2017. FINDINGS: The lungs are normally expanded with fullness of the central vessels and Evelyn B-lines compatible with early congestive heart failure. There is a minimal left-sided effusion. Normal size heart. Normal mediastinum and bud. Normal visualized pulmonary arteries. Normal visualized aortic arch and descending thoracic aorta. Normal visualized thoracic spine. Normal visualized ribs, clavicles, and shoulders. There is no demonstrated abnormality of the visualized soft tissue structures of the upper abdomen. RAD/Chest PA and Lateral IMPRESSION: Early congestive heart failure as described above. Differential diagnosis includes bilateral lower lobe pneumonia. Electronically Signed: Sherri Ybarra MD at 5:11 EST , Service support ,
[2019-05-31 03:23] LABS: Absolute Lymphocyte Count 1.67 X10^3/uL (0.83-4.51); Basophil# 0.03 X10^3/uL; Basophil% 0.5 % (0-1); Eosinophil# 0.31 X10^3/uL; Eosinophils% 4.8 % (0-5); Hematocrit 44.8 % (40-54); Hemoglobin 15.2 g/dL (13.0-16.5); Lymphocyte # 1.67 X10^3/ul (4.0); Lymphocyte % 25.8 % (19-41); Mean Corp Hgb Conc 33.9 g/dL (32-36); Mean Corpuscular Volume 91.2 fL (80-94); Mean Platelet Vol. 9.7 fl (6.2-12.0); Monocyte% 6.2 % (0-10); NRBC Flagged by Analyzer 0 % (0-5); Neutrophil # 4.04 X10^3/uL (2.7-7.7); Neutrophil % 62.4 % (47-70); Platelet Count 157 K/mm3 (150-450); RBC Distribution Width CV 12.7 % (11.6-14.6); RBC Distribution Width SD 42.3 fl (35.1-43.9); Red Blood Count 4.91 M/mm3 (4.6-6.2); White Blood Count 6.5 K/mm3 (4.4-11.0)
[2019-05-31] MEDS: predniSONE 20 MG Tablet 60 MG PO (03:25)
[2019-05-31] MEDS: Ipratropium/Albuterol Sulfate 3 ML AMPUL.NEB INHALATION (03:26)
[2019-05-31] MEDS: Albuterol 2.5 MG/3 ML VIAL.NEB. INHALATION ×2 (03:26)
[2019-05-31 04:05] LABS: Anion Gap 8 (5-15); BUN 19 mg/dL (7-18); BUN/Creat Ratio 13.9 RATIO (10-20); Calcium,Total 7.6 mg/dL (8.5-10.1); Chloride 108 mmol/L (98-107); Creatinine, Serum 1.37 mg/dL (0.70-1.30); EST Glomerular Filtration Rate 58 mL/min (>60); Est Glom Filt Rate - Afr Amer 70 mL/min (>60); Estimated Creatinine Clearance 65.13 ml/min; Glucose 106 mg/dL (74-106); Potassium 3.9 mmol/L (3.5-5.1); Sodium Level 144 mmol/L (136-145)
--- NOTE | 2019-05-31 04:47 | ED.VIS.GEN ---
History of Present Illness Chief Complaint: Shortness of Breath Narrative: Patient presenting for evaluation secondary to shortness of breath. Patient has an underlying history of COPD and coronary artery disease. Patient states that he has been developing some issues with shortness of breath cough and wheezing over the course the last week. He was seen in the emergency department a couple days ago, and was discharged with breathing treatments. Patient states that he woke up tonight and felt as if he was in severe respiratory distress. Upon EMS arrival he was noted to be hypoxic and diaphoretic. He was given breathing treatments was placed on supplemental oxygen and was brought to the emergency department. He denies any presence of chest pain associated with this. Denies any fevers. He does report that his shortness of breath is associated with wheezing. No nausea vomiting or diarrhea associated with this. Review of systems otherwise negative. Past Medical History - Allergies and Home Meds Allergies/Adverse Reactions: Allergies pseudoephedrine Adverse Reaction (Verified 05/31/19 03:09) Other CAUSES PROSTATE TO ENLARGE AND UNABLE TO URINATE Primary Care Physician: Keren Kwon NP-C [Primary Care Provider] - Past Medical History: - - COPD, coronary artery disease Surgical History: no surgical history Smoking Status: Former smoker - Family History Paternal Family History: Family History (Last Reviewed 09/29/18 @ 12:54 by Madisyn Moss) Mother CAD (coronary artery disease) Father CAD (coronary artery disease) Brother CAD (coronary artery disease) Myocardial infarction Sister CAD (coronary artery disease) Family History: Reports: Heart Disease Maternal Family History: Family History (Last Reviewed 09/29/18 @ 12:54 by Madisyn Moss) Mother CAD (coronary artery disease) Father CAD (coronary artery disease) Brother CAD (coronary artery disease) Myocardial infarction Sister CAD (coronary artery disease) Family History: Reports: Heart Disease Review of Systems All systems negative except as indicated General: Denies: Chills, Fever, Sweats Eyes: Denies: Visual changes - bilaterally, Diplopia ENT: Denies: Rhinorrhea, Sore throat Cardiovascular: Denies: Chest pain, Palpitations Respiratory: Reports: Dyspnea. Denies: Cough, Dyspnea on exertion Gastrointestinal: Denies: Abdominal pain, Nausea, Vomiting, Diarrhea, Melena, Hematochezia Genitourinary: Denies: Dysuria, Hematuria, Frequency Musculoskeletal: Denies: Back pain, Extremity Pain Skin: Denies: Rash, Wounds Neurological: Denies: Headache, Weakness, Numbness Psych: Denies: Depression Endocrine: Denies: Polyuria Hematologic: Denies: Easy bruising Allergy: Denies: Uticaria Physical Exam Vital Signs/Narrative: Vital Signs Temp Pulse Resp BP Pulse Ox 05/31/19 04:13 115 H 20 H 05/31/19 03:27 110 H 20 H 98 05/31/19 03:10 96.2 F L 05/31/19 03:03 96.2 F L 116 H 22 H 191/124 H 93 Inital Vital Signs reviewed: Yes General: Well nourished, Well developed, Acute Distress, - - Diaphoretic Head: Normocephalic, Atraumatic Eyes: Perrl, EOMI ENT: Moist mucous membranes, No rhinorrhea Neck: Supple, Nontender Cardiovascular: Regular rate, No murmurs, Tachycardia, - - 2+ radial pulses bilaterally symmetric Respiratory: Chest nontender, Wheezing, Decreased Air Movement. Negative for: Retractions Abdomen: Soft, Nontender, Nondistended, Normal bowel sounds Back: Nontender, Normal Inspection Extremities: Nontender, No edema Skin: Normal color, No rash Neurological: Alert, Oriented x3, Cranial nerves II-XII grossly intact, Normal Strength, Normal Sensation Psychological: Normal affect, Normal Mood Diagnostic/Tx/Re-eval Chest X-Ray - ED: 2 View, Read by ED Physician, Left Infiltrate - EKG Initial EKG Interpretation: - - Sinus tachycardia with a rate of [address] segments normal T waves no evidence of acute ischemia or arrhythmia - Medical Decision Making Patient presented secondary to shortness of breath. He did seem to have some obstructive lung disease upon presentation, he was given breathing treatments in the emergency department as well as prednisone. Patient's laboratory work-up is unremarkable, PA and lateral chest x-ray demonstrates evidence of left lower lobe infiltrate by my personal interpretation. Blood cultures and lactic acid were obtained, patient was given fluid resuscitation was started on Rocephin and azithromycin. Given the patient's hypoxia, pneumonia, and respiratory distress with COPD exacerbation I believe he requires admission. ED Disposition - Plan for ED Patient: Disposition: Acute Care [facility] Diagnosis: Community acquired pneumonia, Hypoxia, COPD exacerbation Referrals: Keren Kwon NP-C [Primary Care Provider] -
--- NOTE | 2019-05-31 04:49 | PCM.HP.STD ---
Problem List (1) Heart failure Status: Suspected (2) Hypoxia Status: Acute (3) Atherosclerosis of coronary artery of [place] heart without angina pectoris Status: Chronic (4) Stented coronary artery Status: Chronic Comment: November [id number] at [facility] (5) History of tonsillectomy Status: Chronic (6) Hx of eye surgery Status: Chronic (7) Depression Status: Chronic Qualifiers: Depression Type: unspecified Qualified Code(s): F32.9 - Major depressive disorder, single episode, unspecified (8) Obesity (BMI 30.0-34.9) Status: Chronic (9) Hyperlipidemia Status: Chronic Qualifiers: Hyperlipidemia type: unspecified Qualified Code(s): E78.5 - Hyperlipidemia, unspecified (10) Hypertension Status: Chronic Qualifiers: Hypertension type: essential hypertension Qualified Code(s): I10 - Essential (primary) hypertension (11) Alcohol abuse Status: Chronic History of Present Illness Date of Admission: 05/31/19 Chief Complaint: shortness of breath The patient is a 53 year old M with a significant history of COPD; hypertension; CAD status post coronary stent; former tobacco abuse and alcoholism who presented with shortness of breath that started few hours before presentation. Patient woke up very short of breath. His shortness of breath scared him to the point that he thought that he was going to . Associated with symptoms is a productive cough of greenish-yellow sputum. Further he reports some chills. He was noted to be hypoxic at the emergency department and required oxygen supplementation. Patient was also at our emergency department on 05/28/2019 where he was diagnosed with viral syndrome and he was given a prescription dose for Toradol and albuterol inhaler. Past Medical History Past Medical History (Chronic Problems): Chronic Problems (Last Reviewed 05/31/19 @ 05:57 by Abraham Sanches MD) Atherosclerosis of coronary artery of [place] heart without angina pectoris (Chronic) Stented coronary artery (Chronic) November [id number] at [facility] History of tonsillectomy (Chronic) Hx of eye surgery (Chronic) Depression (Chronic) Obesity (BMI 30.0-34.9) (Chronic) Hyperlipidemia (Chronic) Hypertension (Chronic) Alcohol abuse (Chronic) Medical History: Medical History (Last Reviewed 05/31/19 @ 07:44 by Abraham Sanches MD) NSTEMI (non-ST elevated myocardial infarction) (Inactive) I21.4 S/P PTCA/JUSTIN to LCx in November 2017; Depression (Chronic) F32.9 Obesity (BMI 30.0-34.9) (Chronic) E66.9 Hyperlipidemia (Chronic) E78.5 Hypertension (Chronic) I10 Alcohol abuse (Chronic) F10.10 Chest pain (Inactive) R07.9 Allergies pseudoephedrine Adverse Reaction (Verified 05/31/19 03:09) Other CAUSES PROSTATE TO ENLARGE AND UNABLE TO URINATE Home Medications: Ambulatory Orders Medication Instructions Recorded Omeprazole [Prilosec] 20 mg PO DAILY 06/17/14 Aspirin [Adult Low Dose Aspirin EC] 81 mg PO DAILY 06/17/16 cycloBENZAPRine HCl [Flexeril] 10 mg PO PRN PRN 06/17/16 Nitroglycerin (INPATIENT USE) 0.4 mg SUBLINGUAL Q5M PRN 03/14/17 [Nitrostat] L.acidoph,Paracasei, B.lactis 1 ea PO DAILY 11/21/17 [Probiotic] atorvastatin 80 mg tablet 80 mg PO QHS #30 tab 12/20/17 lisinopril 5 mg tablet 5 mg PO DAILY #30 tab 12/20/17 famotidine 20 mg tablet 20 mg PO DAILY 09/29/18 metoprolol tartrate 25 mg tablet 25 mg PO BID tab 09/29/18 quetiapine 50 mg tablet 50 mg PO QHS PRN tab 09/29/18 thiamine HCl (vitamin B1) 100 mg 100 mg PO DAILY 09/29/18 tablet Naltrexone Microspheres [Vivitrol] 380 mg IM QMONTH 01/12/19 Albuterol Inhaler [Ventolin Hfa] 1 - 2 puff INHALATION Q4H PRN PRN 05/28/19 #1 inhaler Buspirone HCl 10 mg PO TID 05/28/19 Ketorolac [Toradol] 10 mg PO Q6H PRN #14 tab 05/28/19 Sertraline HCl 100 mg PO DAILY 05/28/19 Surgical History: Surgical History (Last Reviewed 05/31/19 @ 07:44 by Abraham Sanches MD) Stented coronary artery (Chronic) Z95.5 November [id number] at [facility] History of tonsillectomy (Chronic) Z90.89 Hx of eye surgery (Chronic) Z98.890 Psychiatric History: No pertinent psych hx Lives: With Family Smoking Status: Former smoker Alcohol: Occasional - INCONSISTENT HISTORY. Goes to 180 and gets vivitrol - *Family History Paternal Family History: Family History (Last Reviewed 05/31/19 @ 05:59 by Abraham Sanches MD) Mother CAD (coronary artery disease) Father CAD (coronary artery disease) Brother CAD (coronary artery disease) Myocardial infarction Sister CAD (coronary artery disease) History Items: Heart Disease Maternal Family History: Family History (Last Reviewed 05/31/19 @ 05:59 by Abraham Sanches MD) Mother CAD (coronary artery disease) Father CAD (coronary artery disease) Brother CAD (coronary artery disease) Myocardial infarction Sister CAD (coronary artery disease) History Items: Heart Disease Review of Systems Constitutional: Reports: Chills. Denies: Fever HEENT: Denies: Head Aches, Sinus Congestion, Sinus Drainage Cardiovascular: Reports: Paroxysmal Noc. Dyspnea. Denies: Chest Pain, Palpitations Respiratory: Reports: Cough, Shortness of breath at rest, Sputum production Gastrointestinal: Denies: Abdominal Pain, Nausea, Vomiting Genitourinary: Denies: Dysuria Musculoskeletal: Denies: Joint Pain, Joint Tenderness Skin: Denies: Rash, Wounds Neurological: Denies: Numbness, Tingling, Focal weakness Psychiatric: Reports: Anxiety, Depression Hematologic/ Lymphatic: Denies: Easy Bruising, Easy Bleeding VTE Information - Inpt Only VTE Present on Admission: No VTE Mechan Device Prophylaxis: None VTE Pharm Prophylaxis ordered?: Yes Patient Problems: Active and Suspected Problems (Last Reviewed 05/31/19 @ 05:57 by Abraham Sanches MD) Hypoxia (Acute) Heart failure (Suspected) - Physical Exam Vitals/I&O's: Vital Signs Temp Pulse Resp BP Pulse Ox 96.2 F L 115 H 20 H 191/124 H 98 05/31/19 03:10 05/31/19 04:13 05/31/19 04:13 05/31/19 03:03 05/31/19 03:27 Oxygen Flow Rate (L/min) 4 Oxygen Delivery Method Nasal Cannula Weight: 113.6 kg Body Mass Index (BMI) 35.9 Finger Stick Blood Glucose 54 General: Alert, Oriented x3, Cooperative HEENT: Atraumatic, PERRLA, EOMI, Normocephalic Neck: Supple, No JVD, Negative Carotid Bruits Lungs: Diminished, Tachypneic, Wheezes - mild Cardiovascular: Normal S1, Normal S2, No murmurs, Tachycardic Abdomen: Bowel Sounds Present, Soft, Non Tender Extremities: No edema, Capillary Refill Less than 3 Seconds Skin: No rashes, No breakdown Musculoskeletal: No Tenderness to Palpation of Joints or Extremities Neurological: Cranial nerves II-XII grossly intact, - - Tremors Psych/Mental Status: Anxious Laboratory Results 05/31/19 03:12: WBC 6.5, RBC 4.91, Hgb 15.2, Hct 44.8, MCV 91.2, MCH 31.0, MCHC 33.9, RDW Std Deviation 42.3, RDW Coeff of Rosalee 12.7, Plt Count 157, MPV 9.7, Immature Gran % (Auto) 0.300, Neut % (Auto) 62.4, Lymph % (Auto) 25.8, [place] % (Auto) 6.2, Eos % (Auto) 4.8, Baso % (Auto) 0.5, Absolute Neuts (auto) 4.0, Absolute Lymphs (auto) 1.67, Nucleated RBC % 0 05/31/19 03:12: Sodium 144, Potassium 3.9, Chloride 108 H, Carbon Dioxide 28.0, Anion Gap 8, BUN 19 H, Creatinine 1.37 H, Estim Creat Clear Calc 65.13, Est GFR (MDRD) Af Amer 70, Est GFR (MDRD) Non-Af 58 L, BUN/Creatinine Ratio 13.9, Glucose 106, Calcium 7.6 L, Troponin I < 0.015 Current Medications Ceftriaxone Sodium (Rocephin) 1 gm in 50 mls @ 100 mls/hr IV X1 ONE Stop: 05/31/19 05:14 Azithromycin 500 mg/ Dextrose 255 mls @ 250 mls/hr IV X1 ONE Stop: 05/31/19 05:46 Sodium Chloride () 1,000 mls @ 999 mls/hr IV .Q1H1M MAGDA Stop: 05/31/19 06:50 Assessment/Plan All Active Problems (Last Reviewed 05/31/19 @ 05:57 by Abraham Sanches MD) Hypoxia (Acute) The patient is a 53 year old M with a significant history of COPD; hypertension; CAD status post coronary stent; former tobacco abuse and alcoholism who presented with shortness; and found to have tachycardia and tachypnea as well as wheezing and with radiographic evidence of bilateral infiltrates consistent with probable heart failure with different diagnosis as bilateral pneumonia. Probable new onset heart failure Patient with shortness of breath; hypoxic; tachycardia; and tachypnea and with radiographic evidence of a fullness of central vessels and Evelyn B-lines compatible with early congestive heart failure symptoms and with minimal left-sided effusion. Different diagnoses include bilateral lower lobe pneumonia. Patient was treated at the emergency department for probable COPD exacerbation and pneumonia. He received ceftriaxone and azithromycin. Also a normal saline bolus was ordered emergency department. Further he received steroids and breathing treatments. Will hold off treatment for pneumonia and COPD at this time although pneumonia remains on the differential diagnosis. Of note he does not have a fever nor leukocytosis. We will go ahead and give patient a one-time dose of Lasix 40 mg IV and potassium 40 mEq p.o. Will order BNP and echocardiogram. Will put patient on a fluid restriction for now. Strict intake and outputs and 2 g sodium diet ordered. If BNP is low consider resuming treatment for pneumonia. Lactic acid is pending. If lactic acid is elevated it will still not rule out heart failure. Patient already received 60 mg of prednisone at the emergency department for probable COPD as the patient. Will hold off further prednisone for now. Hypertensive urgency On presentation his blood pressure was not within goal. His systolic blood pressure was 191 and diastolic blood pressure was 124 Continue lisinopril and metoprolol. We will add PRN labetalol Hypocalcemia On presentation his calcium was 7.6 Will get albumin level. Alcoholism At the emergency department his statements on last time he drank alcohol was not consistent. Although earlier on he reported drinking alcohol a couple of months ago; on further probe he admitted drinking alcohol about a week ago. At his visit to the emergency department on 05/28/2019 emergency department doctor asked the patient whether he drinks alcohol. Per emergency department doctor's notes patient stated that it has been several days since he drank. We will continue on home thiamine On Vivitrol which he takes monthly next dose is 06/01/2019 at 180 CKD stage III Stable Depression and anxiety Scheduled buspirone and quetiapine prn continued DVT prophylaxis Subcutaneous Lovenox. Code Visit Inpatient E&M: 41944 Init Hosp L3
[2019-05-31] MEDS: 0.9% Normal Saline 1,000 ML 999 ML IV (05:13)
[2019-05-31] MEDS: Ceftriaxone 1 GM/50 ML BAG IV (05:13)
--- NOTE | 2019-05-31 05:44 | ECHOCS_ITS ---
Reason For Study: Dyspnea/SOB Procedure This was a 2D Doppler, Color Flow transthoracic echocardiogram. The study was technically difficult. Contrast injection was performed. Exam performed portable in patient room. Left Ventricle Normal LV size. Left ventricular systolic function is normal. The estimated ejection fraction is 60 %. No regional wall motion abnormalities noted. Right Ventricle Normal RV size. Normal systolic function. Atria Normal left atrium. Normal right atrium. Mitral Valve Normal mitral valve. Mild (1+) eccentric mitral valve insufficiency. Tricuspid Valve Normal tricuspid valve. Aortic Valve Trisinus/trileaflet aortic valve. Mild focal aortic valve calcification. Pulmonic Valve Normal pulmonic valve. Great Vessels Normal aortic root. The pulmonary artery is normal size. Normal inferior vena cava. Pericardium/Pleural No pericardial effusion. Medication Diluted definity 2ml given slow IV push to enhance endocardial definition. MMode/2D Measurements & Calculations LVIDd: 4.7 cm IVSd: 1.2 cm LA dimension: 4.2 cm LVIDs: 3.4 cm LVPWd: 1.1 cm RVDd: 3.4 cm FS: 27.6 % LAV(MOD-bp): 56.4 ml LA A4 area: 18.6 cm2 RA A4 area: 16.6 cm2 LAV(MOD-bp) Indexed: 24.6 ml/m2 LAV(MOD-sp2): 59.8 ml LAV(MOD-sp4): 50.7 ml Time Measurements MV dec time: 0.15 sec Doppler Measurements & Calculations MV E max henry: 93.2 cm/sec Lat Peak E' Henry: 10.9 cm/sec Med Peak E' Henry: 8.8 cm/sec MV A max henry: 95.9 cm/sec E/E' lat: 8.5 E/E' med: 10.5 MV E/A: 0.97 Ao V2 max: 113.2 cm/sec LV V1 max: 82.3 cm/sec MR max henry: 572.9 cm/sec Ao max P.1 mmHg LV V1 max P.7 mmHg MR max P.3 mmHg MR mean henry: 453.4 cm/sec MR mean P.0 mmHg MR VTI: 181.1 cm PA V2 max: 79.0 cm/sec Interpretation Summary Normal LV size. Left ventricular systolic function is normal. The estimated ejection fraction is 60 %. Contrast injection was performed. The study was technically difficult. Ordering Physician: Abraham Sanches Referring Physician: Abraham Sanches Performed By: Olivier Mckeon RCS
[2019-05-31 05:50] LABS: Lactic Acid 2.9 mmol/L (0.4-2.0)
[2019-05-31] MEDS: Furosemide 40 MG/4 ML Vial IV (06:42)
[2019-05-31 06:57] LABS: Alcohol, Blood (Medical)-Serum < 3.0 mg/dL
[2019-05-31 06:58] LABS: Albumin, Serum 3.1 g/dL (3.2-5.0); Anion Gap 7 (5-15); BUN 20 mg/dL (7-18); BUN/Creat Ratio 16.3 RATIO (10-20); Calcium,Total 7.5 mg/dL (8.5-10.1); Chloride 110 mmol/L (98-107); Creatinine, Serum 1.23 mg/dL (0.70-1.30); EST Glomerular Filtration Rate 66 mL/min (>60); Est Glom Filt Rate - Afr Amer 79 mL/min (>60); Estimated Creatinine Clearance 72.54 ml/min; Glucose 133 mg/dL (74-106); Sodium Level 142 mmol/L (136-145)
[2019-05-31 07:56] LABS: BNP,B-Type NATRIURETIC PEPTIDE 326.8 pg/mL (0-100)
--- NOTE | 2019-05-31 08:02 | PCM.PROGNOTE ---
Patient Problems: Active and Suspected Problems (Last Reviewed 05/31/19 @ 07:44 by Abraham Sanches MD) Hypoxia (Acute) Heart failure (Suspected) Subjective: 53-year-old male with a significant history of COPD, hypertension, CAD, PTCA/stent, tobacco dependence in remission and alcoholism (on Vivitrol) who presented to the emergency department at [facility] on 05/31/2019 complaining of shortness of breath. He also complained of a cough productive of greenish-yellow sputum. White blood cell count was normal with no left shift. Troponin was less than 0.015. BNP was elevated at 327. Chest x-ray was consistent with pulmonary edema. He was admitted to a monitored bed on PCU with a diagnosis of hypertensive urgency and congestive heart failure. All events since admission have been reviewed. Blood pressure is still uncontrolled and the most recent blood pressure was 184/113. He has been persistently tachycardic with a heart rate ranging from 1 10-1 19. He is currently 97% saturated on a 2 L nasal cannula. No urine output is recorded. He has given different stories as to when his last drink was. Tells me that the Vivitrol hs been effective in controlling his cravings. He admits to not taking the Buspar as prescribed. He takes it in the morning only. He last saw Dr. Martin in September and he has only seen him once in the office. He was to return in 6 months and this did not happen. He had a stress ECHO in November and is was negative for ischemia with a preserved EF pf 65%. His exercise tolerance was less than expected for age. He tells me that his doctor decreased the antihypertensives to protect his kidneys? He also tells me that he has been taking Mobic. - Physical Exam Vitals/I&O's: Vital Signs Temp Pulse Resp BP Pulse Ox 98.4 F 115 H 18 184/113 H 97 05/31/19 05:44 05/31/19 05:54 05/31/19 05:44 05/31/19 05:44 05/31/19 06:35 Oxygen Flow Rate (L/min) 2 Oxygen Delivery Method Nasal Cannula Weight: 234 lb Body Mass Index (BMI) 33.5 Finger Stick Blood Glucose 54 Intake and Output for Last 24 Hours 05/29/19 05/30/19 05/31/19 23:59 23:59 23:59 Intake Total 305 / 305 Balance 305 / 305 General: Alert, Oriented x3, Cooperative, - - seems as though he is being evasive. He is soft spoken and does not make good eye contact. HEENT: Atraumatic, PERRLA, EOMI, Normocephalic Oral: Moist Mucosa Neck: Supple, No Nodes, Trachea Midline Lungs: Clear to auscultation Cardiovascular: Regular Rhythm, Normal S1, Normal S2, No murmurs, No rub noted, No Gallop, Tachycardic Abdomen: Bowel Sounds Present, Soft, Non Tender, Non-Distended Extremities: No clubbing, No cyanosis, No edema Neurological: Cranial nerves II-XII grossly intact, Neuro grossly intact Psych/Mental Status: Appropriate, Anxious, Flat Affect Laboratory Results 05/31/19 03:12: WBC 6.5, RBC 4.91, Hgb 15.2, Hct 44.8, MCV 91.2, MCH 31.0, MCHC 33.9, RDW Std Deviation 42.3, RDW Coeff of Rosalee 12.7, Plt Count 157, MPV 9.7, Immature Gran % (Auto) 0.300, Neut % (Auto) 62.4, Lymph % (Auto) 25.8, Gallia % (Auto) 6.2, Eos % (Auto) 4.8, Baso % (Auto) 0.5, Absolute Neuts (auto) 4.0, Absolute Lymphs (auto) 1.67, Nucleated RBC % 0 05/31/19 03:12: Sodium 144, Potassium 3.9, Chloride 108 H, Carbon Dioxide 28.0, Anion Gap 8, BUN 19 H, Creatinine 1.37 H, Estim Creat Clear Calc 65.13, Est GFR (MDRD) Af Amer 70, Est GFR (MDRD) Non-Af 58 L, BUN/Creatinine Ratio 13.9, Glucose 106, Calcium 7.6 L, Troponin I < 0.015 05/31/19 04:50: Lactic Acid 2.9 H 05/31/19 06:10: Ethyl Alcohol < 3.0 05/31/19 06:10: B-Natriuretic Peptide 326.8 H 05/31/19 06:10: Sodium 142, Potassium 4.0, Chloride 110 H, Carbon Dioxide 25.0, Anion Gap 7, BUN 20 H, Creatinine 1.23, Estim Creat Clear Calc 72.54, Est GFR (MDRD) Af Amer 79, Est GFR (MDRD) Non-Af 66, BUN/Creatinine Ratio 16.3, Glucose 133 H, Calcium 7.5 L 05/31/19 06:10: Albumin 3.1 L Current Medications Acetaminophen (Tylenol) 650 mg PO Q6H PRN PRN PRN Reason: Pain Score 1-3/Temp > 100.7 F Aspirin (Ecotrin) 81 mg PO DAILY [facility] Atorvastatin Calcium (Lipitor) 80 mg PO QHS [facility] Buspirone HCl (Buspar) 10 mg PO TID [facility] Cyclobenzaprine HCl (Flexeril) 10 mg PO DAILY PRN PRN PRN Reason: Pain Score 1-10/10 Dextrose (D50w Syringe) 0 gm IV X1 PRN; Protocol PRN Reason: Hypoglycemia Enoxaparin Sodium (Lovenox) 40 mg SC DAILY@1000 [facility] Famotidine (Pepcid) 20 mg PO DAILY [facility] Glucagon () 1 mg IM .X1 PRN PRN Reason: Hypoglycemia Guaifenesin (Mucinex) 1,200 mg PO BID [facility] Sodium Chloride () 250 mls @ 15 mls/hr IV .[id number] PRN PRN Reason: Saline Flush Influenza Virus Vaccine Quadrival (Flucelvax /Fluzone ) 0.5 ml IM .ONCE ONE Stop: 05/31/19 10:01 Labetalol HCl (Trandate) 10 mg IV Q4H PRN PRN PRN Reason: SBP > 160 Lactobacillus Acidophilus (Acidophilus) 1 tablet PO DAILY [facility] Lisinopril (Zestril) 5 mg PO DAILY [facility] Metoprolol Tartrate (Lopressor (Beta Kehinde)) 25 mg PO BID [facility] Ondansetron HCl (Zofran) 4 mg IV Q8H PRN PRN PRN Reason: NAUSEA/VOMITING Pantoprazole Sodium (Protonix) 20 mg PO DAILY [facility] Quetiapine Fumarate (Seroquel) 50 mg PO QHS PRN PRN PRN Reason: INSOMNIA Sertraline HCl (Zoloft) 100 mg PO DAILY [facility] Sodium Chloride () 10 - 40 ml IV UD PRN PRN Reason: SALINE FLUSH Thiamine HCl (Vitamin B1) 100 mg PO DAILY [facility] Medical Necessity - Tobacco Use Smoking Status: Former smoker Assessment/Plan All Active Problems (Last Reviewed 05/31/19 @ 07:44 by Abraham Sanches MD) Hypoxia (Acute) Impressions 1. hypertensive emergency with acute diastolic CHF due to uncontrolled HTN. He is also tachycardic and I am suspicious that he may have alcohol withdrawal. Metoprolol has been increased to 50 mg BID and the lisinopril to 20 mg daily. Will give 1 mg of IV ativan now and 20 mg of Labetalol and recheck the BP in 1 hour. If he is still tachycardic and hypertensive will start the acute ETOH withdrawal protocol and start him on a CIWA scale. 2. ETOH dependence - in remission? supposedly taking Vivitrol. Giving different answers to different interviewers about when his last drink was. 3. hx of CAD with PTCA/JUSTIN to LCx in November 2017 4. hx of anxiety and depression with suicide attempts in the past. He was admitted in February of 2018 for a suicide attempt and was discharged to [facility] facility in [facility]. 5. HTN/HLD/COPD/obesity - chronic Prolonged Care Time: Additional care time for treatment, evaluation, stabilization, discussion with patient as well as family and consultants above initial 70 min progress note evaluation: 30 minutes Code Visit Procedures: 69993 Critial Care Addl 30 Min
[2019-05-31] MEDS: Aspirin E.C. 81 MG Tablet PO (08:27)
[2019-05-31] MEDS: Pantoprazole Sodium 20 MG Tablet PO (08:27)
[2019-05-31] MEDS: Lisinopril 20 MG Tablet PO (08:27)
[2019-05-31] MEDS: Metoprolol Tartrate 50 MG Tablet PO ×2 (08:27→21:19)
[2019-05-31] MEDS: guaiFENesin 1,200 MG Tablet 1200 MG PO ×2 (08:28→21:19)
[2019-05-31] MEDS: Famotidine 20 MG Tablet PO (08:28)
[2019-05-31] MEDS: Thiamine Hydrochloride 100 MG Tablet PO (08:28)
[2019-05-31] MEDS: Enoxaparin 40 MG/0.4 ML Syringe SC (08:28)
[2019-05-31] MEDS: Sertraline 100 MG Tablet PO (08:28)
[2019-05-31 09:08] LABS: Reflex Lactate? Y
[2019-05-31 10:03] LABS: Lactic Acid 4.7 mmol/L (0.4-2.0)
[2019-05-31] MEDS: LORazepam 2 MG/ML Syringe 1 MG IV ×3 (11:20→21:20)
[2019-05-31 11:25] LABS: Thyroid Stim Hormone (TSH) 1.54 uIU/mL (0.358-3.74)
[2019-05-31] MEDS: busPIRone 5 MG Tablet 10 MG PO ×2 (12:43→21:19)
[2019-05-31 13:07] LABS: Amphetamine Urine VISTA NEGATIVE (<1000 ng/mL); Barbiturate Urine VISTA NEGATIVE (< 200 ng/mL); Benzodiazepine Urine VISTA NEGATIVE (< 200 ng/mL); Cocaine Urine VISTA POSITIVE (< 300 ng/mL); Ecstacy Urine VISTA NEGATIVE (< 500 ng/mL); Methadone Urine VISTA NEGATIVE (< 300 ng/mL); PCP Urine VISTA NEGATIVE (< 25 ng/mL); THC Urine VISTA NEGATIVE (< 50 ng/mL); Vista UDS pH Range 5
[2019-05-31] MEDS: Labetalol 20 MG/4 ML Vial IV ×2 (16:59→21:20)
[2019-05-31] MEDS: Atorvastatin Calcium 80 MG Tablet PO (21:19)
[2019-06-01] VITALS (20 sets, daily range): BP systolic 155–193; BP diastolic 92–129; PULSE 66–106; RESP 16–22; TEMP 36.6–37.2; O2SAT 88–99
[2019-06-01] MEDS: busPIRone 5 MG Tablet 10 MG PO ×3 (05:11→22:58)
[2019-06-01] MEDS: Labetalol 20 MG/4 ML Vial IV ×3 (05:11→17:05)
[2019-06-01] MEDS: Metoprolol Tartrate 50 MG Tablet PO (08:14)
[2019-06-01] MEDS: Aspirin E.C. 81 MG Tablet PO (08:14)
[2019-06-01] MEDS: Enoxaparin 40 MG/0.4 ML Syringe SC (08:15)
[2019-06-01] MEDS: Famotidine 20 MG Tablet PO (08:16)
[2019-06-01] MEDS: guaiFENesin 1,200 MG Tablet 1200 MG PO ×2 (08:16→22:58)
[2019-06-01] MEDS: Pantoprazole Sodium 20 MG Tablet PO (08:17)
[2019-06-01] MEDS: Thiamine Hydrochloride 100 MG Tablet PO (08:17)
[2019-06-01] MEDS: Sertraline 100 MG Tablet PO (08:18)
[2019-06-01] MEDS: Lisinopril 20 MG Tablet PO (08:20)
[2019-06-01] MEDS: LORazepam 2 MG/ML Syringe 1 MG IV ×2 (08:20→14:04)
[2019-06-01] MEDS: 0.9% Saline Lock 10 ML Syringe IV ×2 (11:13→17:05)
--- NOTE | 2019-06-01 11:50 | CASEMGMT ---
RN CARLOS CANT HOOKER CM to room to meet with patient for initial transition planning/care coordination assessment. YONI GONZALEZ introduced self and role at [facility]. Pt voices understanding and consents to assessment at this time. Pt resting in bed in no distress at this time. Pt is A/O at this time and answers all questions appropriately. Care providers, pharmacy, and demographics verified at this time. PCP: Doyle @ [facility] Specialists: Mario--cardiology, Fito, GI specialist @ [facility] Aric (does not remember name). Goes to [facility] weekly. Sees psychiatrist @ the counseling center. Preferred Pharmacy: [facility] Insurance: [employer] Prescription Benefit: Yes Living Will/HPOA: States does not have LW or HCPOA and is interested in more information and with talking with AMAURI to complete paperwork. Hansa BAUGH, caitlin aware. LNOK: 2 sons. Father, [place] Living Arrangements: Lives with his father. Pt is independent and works full-time. Pt assists his father with household tasks and prepares meals for his father to have while he (pt) is at work. Transportation: Pt states drives self and states no transportation concerns at this time. DME: Denies using any DME and denies needs. HHC/SNF: No history of either and denies needs. No needs identified. States I was supposed to do Cardiac Rehab a couple of years ago after my heart surgery but I never ended up doing it. States he feels he would benefit from OP therapy, but is not sure if he can if will be able to schedule appts around his work schedule. Pt made aware he can be given script and take to facility of his choice and schedule appts on his own to arrange around his work schedule. Pt states he would like to do this and voices appreciation. Pt wishes to return home and states has no concerns with going home at time of discharge. CM to follow for any further discharge planning/needs. Pt voices no further concerns/needs at this time. Advised pt to ask for CM if any further questions/concerns/needs arise. Voices understanding. PT PLAN: Home w/OP therapy. PLAN: Home w/OP therapy--will need script prior to discharge. AMAURI consult for AD, +cocaine use, and ETOH use. AMAURI Santo, caitlin aware. Jose ALMODOVAR RN, CM .
--- NOTE | 2019-06-01 13:08 | CASEMGMT ---
Per RN CM patient wanted information about advance directives. Patient also has mental health and substance abuse diagnoses. SW met with patient, introduced self and role at [facility]. Patient is active with [facility] and [facility]. He denies need for any further resources. SW then mentioned advance directives and he said he was curious as to what they are. SW explained documents to patient. SW left the documents with patient and told him that if he decided he wanted to do them after he is discharged he can call in and schedule and appt to complete documents. AMAURI wrote down the phone number on his paper. Hansa INIGUEZ MSW
--- NOTE | 2019-06-01 14:21 | NURSING ---
DR MAR NOTIFIED BP 180/102 HE WILL MAKE CHANGES IN BLOOD PRESSURE MEDS
[2019-06-01] MEDS: amLODIPine 10 MG Tablet PO (14:45)
[2019-06-01] MEDS: Carvedilol 6.25 MG Tablet PO (14:45)
--- NOTE | 2019-06-01 17:08 | NURSING ---
dr pierre informed bp 187/118 after coreg & norvasc given received order to give labetal
--- NOTE | 2019-06-01 17:16 | PCM.PN.HOSP ---
Patient Problems: Active and Suspected Problems (Last Reviewed 05/31/19 @ 07:44 by Abraham Sanches MD) Hypoxia (Acute) Heart failure (Suspected) Subjective: Feeling better today, and denies any signs of alcohol withdrawal. Has no shortness of breath or chest pain at this time. Vitals/I&O's: Vital Signs Temp Pulse Resp BP Pulse Ox 98 F 100 18 170/113 H 95 06/01/19 09:00 06/01/19 14:45 06/01/19 10:16 06/01/19 14:45 06/01/19 14:45 Oxygen Flow Rate (L/min) 2 Oxygen Delivery Method Room Air Weight: 228 lb 6.382 oz Body Mass Index (BMI) 33.5 Finger Stick Blood Glucose 54 Intake and Output for Last 24 Hours 05/30/19 05/31/19 06/01/19 23:59 23:59 23:59 Intake Total 1625 / 1625 480 / 480 Output Total 3200 / 3200 400 / 400 Balance -1575 / -1575 80 / 80 General: Alert, Oriented x3, Cooperative, No apparent distress HEENT: Atraumatic, PERRLA, EOMI, Normocephalic Oral: Moist Mucosa Neck: Supple, No JVD Lungs: Clear to auscultation, Normal air movement, No rhonchi, No wheeze, No rales Cardiovascular: Regular rate, Regular Rhythm, Normal S1, Normal S2, No murmurs Abdomen: Soft, Non Tender, Non-Distended, No Hepato-splenomegaly Extremities: No edema, Capillary Refill Less than 3 Seconds Neurological: Neuro grossly intact, Sensory exam intact to light touch and pain Psych/Mental Status: Flat Affect, Restless Microbiology Past 72 Hours 05/31/19 06:35 Mucosa - Nose Respiratory Panel (PCR) - Final Laboratory Results 05/31/19 06:10: Vitamin D 25-Hydroxy 23.0 L Current Medications Acetaminophen (Tylenol) 650 mg PO Q6H PRN PRN PRN Reason: Pain Score 1-3/Temp > 100.7 F Amlodipine Besylate (Norvasc) 10 mg PO DAILY [facility] Last Admin: 06/01/19 14:45 Dose: 10 mg Documented by: Aspirin (Ecotrin) 81 mg PO DAILY [facility] Last Admin: 06/01/19 08:14 Dose: 81 mg Documented by: Atorvastatin Calcium (Lipitor) 80 mg PO QHS [facility] Last Admin: 05/31/19 21:19 Dose: 80 mg Documented by: Buspirone HCl (Buspar) 10 mg PO TID [facility] Last Admin: 06/01/19 13:53 Dose: 10 mg Documented by: Carvedilol (Coreg) 6.25 mg PO BID [facility] Last Admin: 06/01/19 14:45 Dose: 6.25 mg Documented by: Cyclobenzaprine HCl (Flexeril) 10 mg PO DAILY PRN PRN PRN Reason: Pain Score 1-10/10 Dextrose (D50w Syringe) 0 gm IV X1 PRN; Protocol PRN Reason: Hypoglycemia Enoxaparin Sodium (Lovenox) 40 mg SC DAILY@1000 [facility] Last Admin: 06/01/19 08:15 Dose: 40 mg Documented by: Famotidine (Pepcid) 20 mg PO DAILY [facility] Last Admin: 06/01/19 08:16 Dose: 20 mg Documented by: Glucagon () 1 mg IM .X1 PRN PRN Reason: Hypoglycemia Guaifenesin (Mucinex) 1,200 mg PO BID [facility] Last Admin: 06/01/19 08:16 Dose: 1,200 mg Documented by: Sodium Chloride () 250 mls @ 15 mls/hr IV .[id number] PRN PRN Reason: Saline Flush Labetalol HCl (Trandate) 20 mg IV Q4H PRN PRN PRN Reason: SBP > 160 Last Admin: 06/01/19 17:05 Dose: 20 mg Documented by: Lactobacillus Acidophilus (Acidophilus) 1 tablet PO DAILY [facility] Last Admin: 06/01/19 08:14 Dose: 1 tablet Documented by: Lisinopril (Zestril) 20 mg PO DAILY [facility] Last Admin: 06/01/19 08:20 Dose: 20 mg Documented by: Ondansetron HCl (Zofran) 4 mg IV Q8H PRN PRN PRN Reason: NAUSEA/VOMITING Pantoprazole Sodium (Protonix) 20 mg PO DAILY [facility] Last Admin: 06/01/19 08:17 Dose: 20 mg Documented by: Quetiapine Fumarate (Seroquel) 50 mg PO QHS PRN PRN PRN Reason: INSOMNIA Sertraline HCl (Zoloft) 100 mg PO DAILY [facility] Last Admin: 06/01/19 08:18 Dose: 100 mg Documented by: Sodium Chloride () 10 - 40 ml IV UD PRN PRN Reason: SALINE FLUSH Last Admin: 06/01/19 17:05 Dose: 10 ml Documented by: Thiamine HCl (Vitamin B1) 100 mg PO DAILY [facility] Last Admin: 06/01/19 08:17 Dose: 100 mg Documented by: STROKE Vital Signs/Narrative: Vital Signs Pulse BP Pulse Ox 06/01/19 14:45 100 170/113 H 95 06/01/19 14:00 66 06/01/19 13:58 101 H 180/102 H 96 Medical Necessity - Tobacco Use Smoking Status: Former smoker Assessment/Plan All Active Problems (Last Reviewed 05/31/19 @ 07:44 by Abraham Sanches MD) Hypoxia (Acute) 1. Hypertensive emergency with acute diastolic CHF/CAD with JUSTIN to LCx November 2017/HLD -His metoprolol was increased from 25 mg to 50 mg twice daily and his lisinopril was increased from 5 mg to 20 mg daily. He also received a dose of Ativan as well as PRN labetalol. -I will discontinue his metoprolol and change to Coreg 6.25 mg p.o. twice daily as well as add Norvasc. -Echo with normal EF, BNP was elevated on admission -We will continue to adjust blood pressure medications to control his hypertension. -Continue with aspirin and Lipitor. 2. Alcohol abuse/cocaine use/anxiety/depression -Because he is continued to have hypertension and tachycardia, will institute alcohol withdrawal protocol -Librium taper with CIWA scale -Ativan PRN -Plan will be for discharge back into [facility] -Continue with BuSpar, Zoloft, the Seroquel is PRN for any agitation and sleep difficulty. DVT: Lovenox Code Visit Inpatient E&M: 13177 Subs Hosp L2
[2019-06-01] MEDS: chlordiazePOXIDE 25 MG Capsule PO ×2 (17:42→23:06)
--- NOTE | 2019-06-01 19:02 | NURSING ---
bp down to 180/100 pt resting quietly, no distress noted
[2019-06-01] MEDS: Atorvastatin Calcium 80 MG Tablet PO (22:58)
[2019-06-02] VITALS (12 sets, daily range): BP systolic 117–168; BP diastolic 88–110; PULSE 83–109; RESP 14–18; TEMP 36.4–37.3; O2SAT 93–97
--- NOTE | 2019-06-02 02:57 | NURSING ---
Verbal report given to Mone Gold RN. She will resume care of patient at this time.
[2019-06-02] MEDS: busPIRone 5 MG Tablet 10 MG PO ×3 (06:00→20:57)
[2019-06-02] MEDS: chlordiazePOXIDE 25 MG Capsule PO ×3 (06:01→20:13)
[2019-06-02] MEDS: Thiamine Hydrochloride 100 MG Tablet PO (08:14)
[2019-06-02] MEDS: Sertraline 100 MG Tablet PO (08:16)
[2019-06-02] MEDS: Lisinopril 20 MG Tablet PO (08:16)
[2019-06-02] MEDS: amLODIPine 10 MG Tablet PO (08:16)
[2019-06-02] MEDS: Carvedilol 6.25 MG Tablet PO ×2 (08:16→20:57)
[2019-06-02] MEDS: Pantoprazole Sodium 20 MG Tablet PO (08:16)
[2019-06-02] MEDS: guaiFENesin 1,200 MG Tablet 1200 MG PO ×2 (08:17→20:58)
[2019-06-02] MEDS: Famotidine 20 MG Tablet PO (08:18)
[2019-06-02] MEDS: Enoxaparin 40 MG/0.4 ML Syringe SC (08:18)
[2019-06-02] MEDS: Aspirin E.C. 81 MG Tablet PO (08:18)
[2019-06-02] MEDS: Multivitamins,Therapeutic Tablet 1 TABLET PO (08:25)
[2019-06-02] MEDS: Folic Acid 1 MG Tablet PO (08:25)
--- NOTE | 2019-06-02 09:45 | PCM.PN.HOSP ---
Patient Problems: Active and Suspected Problems (Last Reviewed 05/31/19 @ 07:44 by Abraham Sanches MD) Hypoxia (Acute) Heart failure (Suspected) Subjective: Started on [place] protocol yesterday for possible alcohol withdrawal. His scores have ranged anywhere from 0 to a 9. Says that he is doing okay today. Vital signs appear to be stable today. Vitals/I&O's: Vital Signs Temp Pulse Resp BP Pulse Ox 97.7 F L 94 14 168/110 H 97 06/02/19 07:58 06/02/19 07:58 06/02/19 07:58 06/02/19 07:58 06/02/19 07:58 Oxygen Flow Rate (L/min) 2 Oxygen Delivery Method Room Air Weight: 226 lb 3.108 oz Body Mass Index (BMI) 33.5 Finger Stick Blood Glucose 54 Intake and Output for Last 24 Hours 05/31/19 06/01/19 06/02/19 23:59 23:59 23:59 Intake Total 1625 / 1625 1497 / 1497 Output Total 3200 / 3200 400 / 400 Balance -1575 / -1575 1097 / 1097 General: Alert, Oriented x3, Cooperative, No apparent distress HEENT: Atraumatic, PERRLA, EOMI, Normocephalic Oral: Moist Mucosa Neck: Supple, No JVD Lungs: Clear to auscultation, Normal air movement, No rhonchi, No wheeze, No rales Cardiovascular: Regular rate, Regular Rhythm, Normal S1, Normal S2, No murmurs Abdomen: Soft, Non Tender, Non-Distended, No Hepato-splenomegaly Extremities: No edema, Capillary Refill Less than 3 Seconds Neurological: Neuro grossly intact, Sensory exam intact to light touch and pain Psych/Mental Status: Flat Affect, Restless Microbiology Past 72 Hours 05/31/19 04:53 Blood Culture (Wb) - Anticubital Left Blood Culture - Preliminary No growth in 48 hours. 05/31/19 04:50 Blood Culture (Wb) - Anticubital Right Blood Culture - Preliminary No growth in 48 hours. 05/31/19 06:35 Mucosa - Nose Respiratory Panel (PCR) - Final Current Medications Acetaminophen (Tylenol) 650 mg PO Q6H PRN PRN PRN Reason: Pain Score 1-3/Temp > 100.7 F Amlodipine Besylate (Norvasc) 10 mg PO DAILY [facility] Last Admin: 06/02/19 08:16 Dose: 10 mg Documented by: Aspirin (Ecotrin) 81 mg PO DAILY [facility] Last Admin: 06/02/19 08:18 Dose: 81 mg Documented by: Atorvastatin Calcium (Lipitor) 80 mg PO QHS [facility] Last Admin: 06/01/19 22:58 Dose: 80 mg Documented by: Buspirone HCl (Buspar) 10 mg PO TID [facility] Last Admin: 06/02/19 06:00 Dose: 10 mg Documented by: Carvedilol (Coreg) 6.25 mg PO BID [facility] Last Admin: 06/02/19 08:16 Dose: 6.25 mg Documented by: Chlordiazepoxide (Librium) 50 mg PO Q6H [facility]; Taper Stop: 06/04/19 19:59 Last Admin: 06/02/19 06:01 Dose: 50 mg Documented by: Cyclobenzaprine HCl (Flexeril) 10 mg PO DAILY PRN PRN PRN Reason: Pain Score 1-10/10 Dextrose (D50w Syringe) 0 gm IV X1 PRN; Protocol PRN Reason: Hypoglycemia Dicyclomine HCl (Bentyl) 20 mg PO Q6H PRN PRN PRN Reason: abdominal discomfort Enoxaparin Sodium (Lovenox) 40 mg SC DAILY@1000 [facility] Last Admin: 06/02/19 08:18 Dose: 40 mg Documented by: Famotidine (Pepcid) 20 mg PO DAILY [facility] Last Admin: 06/02/19 08:18 Dose: 20 mg Documented by: [facility]) [facility] Stop: 06/04/19 08:01 Last Admin: 06/02/19 08:25 Dose: 1 mg Documented by: Glucagon () 1 mg IM .X1 PRN PRN Reason: Hypoglycemia Guaifenesin (Mucinex) 1,200 mg PO BID [facility] Last Admin: 06/02/19 08:17 Dose: 1,200 mg Documented by: Sodium Chloride () 250 mls @ 15 mls/hr IV .[id number] PRN PRN Reason: Saline Flush Labetalol HCl (Trandate) 20 mg IV Q4H PRN PRN PRN Reason: SBP > 160 Last Admin: 06/01/19 17:05 Dose: 20 mg Documented by: Lactobacillus Acidophilus (Acidophilus) 1 tablet PO DAILY [facility] Last Admin: 06/02/19 08:17 Dose: 1 tablet Documented by: Lisinopril (Zestril) 20 mg PO DAILY [facility] Last Admin: 06/02/19 08:16 Dose: 20 mg Documented by: Lorazepam (Ativan) 2 mg IV X1 PRN PRN Reason: Seizure Lorazepam (Ativan) 1 mg IV Q2H PRN PRN PRN Reason: Severe Anxiety Methocarbamol (Methocarbamol) 750 mg PO Q6H PRN PRN PRN Reason: Muscle Aches Mult[facility]itamins [facility]amin) [facility] Last Admin: 06/02/19 08:25 Dose: 1 tablet Documented by: Ondansetron HCl (Zofran) 4 mg IV Q8H PRN PRN PRN Reason: NAUSEA/VOMITING Pantoprazole Sodium (Protonix) 20 mg PO DAILY [facility] Last Admin: 06/02/19 08:16 Dose: 20 mg Documented by: Quetiapine Fumarate (Seroquel) 50 mg PO QHS PRN PRN PRN Reason: INSOMNIA Sertraline HCl (Zoloft) 100 mg PO DAILY [facility] Last Admin: 06/02/19 08:16 Dose: 100 mg Documented by: Sodium Chloride () 10 - 40 ml IV UD PRN PRN Reason: SALINE FLUSH Last Admin: 06/01/19 17:05 Dose: 10 ml Documented by: Thiamine HCl (Vitamin B1) 100 mg PO DAILY [facility] Last Admin: 06/02/19 08:14 Dose: 100 mg Documented by: STROKE Vital Signs/Narrative: Vital Signs Temp Pulse Resp BP Pulse Ox 06/02/19 07:58 97.7 F L 94 14 168/110 H 97 06/02/19 07:00 87 06/02/19 05:59 97.6 F L 96 16 159/106 H 95 Medical Necessity - Tobacco Use Smoking Status: Former smoker Assessment/Plan All Active Problems (Last Reviewed 05/31/19 @ 07:44 by Abraham Sanches MD) Hypoxia (Acute) 1. Hypertensive emergency with acute diastolic CHF/CAD with JUSTIN to LCx November 2017/HLD -his lisinopril was increased from 5 mg to 20 mg daily. He also received a dose of Ativan as well as PRN labetalol. -Continue with Coreg 6.25 mg p.o. twice daily as well as Norvasc -Echo with normal EF, BNP was elevated on admission -We will continue to adjust blood pressure medications to control his hypertension. -Continue with aspirin and Lipitor. 2. Alcohol abuse/cocaine use/anxiety/depression -Because he is continued to have hypertension and tachycardia, will institute alcohol withdrawal protocol -Librium taper with CIWA scale -Ativan PRN -Plan will be for discharge back into [facility] -Continue with BuSpar, Zoloft, the Seroquel is PRN for any agitation and sleep difficulty. DVT: Lovenox Code Visit Inpatient E&M: 88628 Subs Hosp L2
--- NOTE | 2019-06-02 11:57 | CASEMGMT ---
Social Work Palliative Care Screening Tool completed with pt score on 3. Referral not made at this time, will monitor and if pt condition deteriorates will reconsider consultation. MARSHALL Ratliff
[2019-06-02] MEDS: Atorvastatin Calcium 80 MG Tablet PO (20:58)
[2019-06-03] VITALS (12 sets, daily range): BP systolic 111–156; BP diastolic 72–95; PULSE 83–103; RESP 16–18; TEMP 36.8–37.1; O2SAT 93–98
[2019-06-03] MEDS: chlordiazePOXIDE 25 MG Capsule PO ×3 (05:04→20:50)
[2019-06-03] MEDS: busPIRone 5 MG Tablet 10 MG PO ×3 (05:04→20:50)
--- NOTE | 2019-06-03 09:06 | PCM.PN.HOSP ---
Patient Problems: Active and Suspected Problems (Last Reviewed 05/31/19 @ 07:44 by Abraham Sanches MD) Hypoxia (Acute) Heart failure (Suspected) Subjective: Says that he is feeling better, seems a little bit less restless today Vitals/I&O's: Vital Signs Temp Pulse Resp BP Pulse Ox 98.8 F 97 18 156/95 H 94 06/03/19 08:24 06/03/19 08:24 06/03/19 08:29 06/03/19 08:24 06/03/19 08:52 Oxygen Flow Rate (L/min) 2 Oxygen Delivery Method Room Air Weight: 220 lb 3.869 oz Body Mass Index (BMI) 33.5 Finger Stick Blood Glucose 54 Intake and Output for Last 24 Hours 06/01/19 06/02/19 06/03/19 23:59 23:59 23:59 Intake Total 1497 / 1497 720 / 720 30 / 30 Output Total 400 / 400 Balance 1097 / 1097 720 / 720 30 / 30 General: Alert, Oriented x3, Cooperative, No apparent distress HEENT: Atraumatic, PERRLA, EOMI, Normocephalic Oral: Moist Mucosa Neck: Supple, No JVD Lungs: Clear to auscultation, Normal air movement, No rhonchi, No wheeze, No rales Cardiovascular: Regular rate, Regular Rhythm, Normal S1, Normal S2, No murmurs Abdomen: Soft, Non Tender, Non-Distended, No Hepato-splenomegaly Extremities: No edema, Capillary Refill Less than 3 Seconds Neurological: Neuro grossly intact, Sensory exam intact to light touch and pain Psych/Mental Status: Flat Affect Microbiology Past 72 Hours 05/31/19 04:53 Blood Culture (Wb) - Anticubital Left Blood Culture - Preliminary No growth in 48 hours. 05/31/19 04:50 Blood Culture (Wb) - Anticubital Right Blood Culture - Preliminary No growth in 48 hours. 05/31/19 06:35 Mucosa - Nose Respiratory Panel (PCR) - Final Current Medications Acetaminophen (Tylenol) 650 mg PO Q6H PRN PRN PRN Reason: Pain Score 1-3/Temp > 100.7 F Amlodipine Besylate (Norvasc) 10 mg PO DAILY [facility] Last Admin: 06/02/19 08:16 Dose: 10 mg Documented by: Aspirin (Ecotrin) 81 mg PO DAILY [facility] Last Admin: 06/02/19 08:18 Dose: 81 mg Documented by: Atorvastatin Calcium (Lipitor) 80 mg PO QHS [facility] Last Admin: 06/02/19 20:58 Dose: 80 mg Documented by: Buspirone HCl (Buspar) 10 mg PO TID [facility] Last Admin: 06/03/19 05:04 Dose: 10 mg Documented by: Carvedilol (Coreg) 6.25 mg PO BID [facility] Last Admin: 06/02/19 20:57 Dose: 6.25 mg Documented by: Chlordiazepoxide (Librium) 50 mg PO Q8H [facility]; Taper Stop: 06/04/19 19:59 Last Admin: 06/03/19 05:04 Dose: 50 mg Documented by: Cyclobenzaprine HCl (Flexeril) 10 mg PO DAILY PRN PRN PRN Reason: Pain Score 1-10/10 Dextrose (D50w Syringe) 0 gm IV X1 PRN; Protocol PRN Reason: Hypoglycemia Dicyclomine HCl (Bentyl) 20 mg PO Q6H PRN PRN PRN Reason: abdominal discomfort Enoxaparin Sodium (Lovenox) 40 mg SC DAILY@1000 [facility] Last Admin: 06/02/19 08:18 Dose: 40 mg Documented by: Famotidine (Pepcid) 20 mg PO DAILY [facility] Last Admin: 06/02/19 08:18 Dose: 20 mg Documented by: [facility]) [facility] Stop: 06/04/19 08:01 Last Admin: 06/02/19 08:25 Dose: 1 mg Documented by: Glucagon () 1 mg IM .X1 PRN PRN Reason: Hypoglycemia Guaifenesin (Mucinex) 1,200 mg PO BID [facility] Last Admin: 06/02/19 20:58 Dose: 1,200 mg Documented by: Sodium Chloride () 250 mls @ 15 mls/hr IV .[id number] PRN PRN Reason: Saline Flush Labetalol HCl (Trandate) 20 mg IV Q4H PRN PRN PRN Reason: SBP > 160 Last Admin: 06/01/19 17:05 Dose: 20 mg Documented by: Lactobacillus Acidophilus (Acidophilus) 1 tablet PO DAILY [facility] Last Admin: 06/02/19 08:17 Dose: 1 tablet Documented by: Lisinopril (Zestril) 20 mg PO DAILY [facility] Last Admin: 06/02/19 08:16 Dose: 20 mg Documented by: Lorazepam (Ativan) 2 mg IV X1 PRN PRN Reason: Seizure Lorazepam (Ativan) 1 mg IV Q2H PRN PRN PRN Reason: Severe Anxiety Methocarbamol (Methocarbamol) 750 mg PO Q6H PRN PRN PRN Reason: Muscle Aches [facility]) [facility] Last Admin: 06/02/19 08:25 Dose: 1 tablet Documented by: Ondansetron HCl (Zofran) 4 mg IV Q8H PRN PRN PRN Reason: NAUSEA/VOMITING Pantoprazole Sodium (Protonix) 20 mg PO DAILY [facility] Last Admin: 06/02/19 08:16 Dose: 20 mg Documented by: Quetiapine Fumarate (Seroquel) 50 mg PO QHS PRN PRN PRN Reason: INSOMNIA Sertraline HCl (Zoloft) 100 mg PO DAILY [facility] Last Admin: 06/02/19 08:16 Dose: 100 mg Documented by: Sodium Chloride () 10 - 40 ml IV UD PRN PRN Reason: SALINE FLUSH Last Admin: 06/01/19 17:05 Dose: 10 ml Documented by: Thiamine HCl (Vitamin B1) 100 mg PO DAILY [facility] Last Admin: 06/02/19 08:14 Dose: 100 mg Documented by: STROKE Vital Signs/Narrative: Vital Signs Temp Pulse Resp BP Pulse Ox 06/03/19 08:52 94 06/03/19 08:29 18 06/03/19 08:24 98.8 F 97 18 156/95 H 94 06/03/19 07:28 83 Medical Necessity - Tobacco Use Smoking Status: Former smoker Assessment/Plan All Active Problems (Last Reviewed 05/31/19 @ 07:44 by Abraham Sanches MD) Hypoxia (Acute) 1. Hypertensive emergency with acute diastolic CHF/CAD with JUSTIN to LCx November 2017/HLD -his lisinopril was increased from 5 mg to 20 mg daily. He also received a dose of Ativan as well as PRN labetalol. -Continue with Coreg 6.25 mg p.o. twice daily as well as Norvasc -Echo with normal EF, BNP was elevated on admission -We will continue to adjust blood pressure medications to control his hypertension. -Continue with aspirin and Lipitor. 2. Alcohol abuse/cocaine use/anxiety/depression -He continues to be a little bit evasive in terms of what he drinks and how much he drinks, he told me that he drinks very rarely because he is on probation and has to get random blood alcohol level, however he tells the nurse that he 3 tall boys a day every day. -My concern is that because of how long he had been here prior to having started, and if I sent him home he would go through withdrawal -Librium taper with CIWA scale -Ativan PRN -Plan will be for discharge back into [facility] -Continue with BuSpar, Zoloft, the Seroquel is PRN for any agitation and sleep difficulty. DVT: Lovenox Code Visit Inpatient E&M: 83650 Subs Hosp L2
[2019-06-03] MEDS: Carvedilol 6.25 MG Tablet PO ×2 (09:31→20:50)
[2019-06-03] MEDS: Aspirin E.C. 81 MG Tablet PO (09:31)
[2019-06-03] MEDS: Folic Acid 1 MG Tablet PO (09:31)
[2019-06-03] MEDS: Multivitamins,Therapeutic Tablet 1 TABLET PO (09:31)
[2019-06-03] MEDS: guaiFENesin 1,200 MG Tablet 1200 MG PO ×2 (09:32→20:50)
[2019-06-03] MEDS: Enoxaparin 40 MG/0.4 ML Syringe SC (09:32)
[2019-06-03] MEDS: amLODIPine 10 MG Tablet PO (09:32)
[2019-06-03] MEDS: Lisinopril 20 MG Tablet PO (09:33)
[2019-06-03] MEDS: Thiamine Hydrochloride 100 MG Tablet PO (09:33)
[2019-06-03] MEDS: Sertraline 100 MG Tablet PO (09:33)
[2019-06-03] MEDS: Pantoprazole Sodium 20 MG Tablet PO (09:33)
[2019-06-03] MEDS: Famotidine 20 MG Tablet PO (09:33)
--- NOTE | 2019-06-03 13:50 | NURSING ---
Read and reviewed SN documentation
[2019-06-03] MEDS: Atorvastatin Calcium 80 MG Tablet PO (20:50)
[2019-06-03] MEDS: MELATONIN 3 MG TABLET PO (23:05)
[2019-06-04 00:30] VITALS: BP 112/64; PULSE 93; RESP 16; TEMP 36.6; O2SAT 92
[2019-06-04 03:00] VITALS: PULSE 88
[2019-06-04 04:30] VITALS: BP 105/64; PULSE 88; RESP 18; TEMP 36.4; O2SAT 95
[2019-06-04] MEDS: busPIRone 5 MG Tablet 10 MG PO (05:08)
[2019-06-04 06:34] LABS: Anion Gap 8 (5-15); BUN 33 mg/dL (7-18); BUN/Creat Ratio 24.4 RATIO (10-20); Chloride 102 mmol/L (98-107); Creatinine, Serum 1.35 mg/dL (0.70-1.30); EST Glomerular Filtration Rate 59 mL/min (>60); Est Glom Filt Rate - Afr Amer 71 mL/min (>60); Estimated Creatinine Clearance 66.09 ml/min; Glucose 104 mg/dL (74-106); Potassium 4.1 mmol/L (3.5-5.1); Sodium Level 136 mmol/L (136-145)
[2019-06-04 07:26] VITALS: PULSE 87
[2019-06-04 07:45] VITALS: O2SAT 92
[2019-06-04 08:43] VITALS: BP 117/79; PULSE 92; RESP 16; TEMP 36.4; O2SAT 100
[2019-06-04] MEDS: Multivitamins,Therapeutic Tablet 1 TABLET PO (08:47)
[2019-06-04] MEDS: Pantoprazole Sodium 20 MG Tablet PO (08:47)
[2019-06-04] MEDS: Folic Acid 1 MG Tablet PO (08:47)
[2019-06-04] MEDS: Lisinopril 20 MG Tablet PO (08:47)
[2019-06-04] MEDS: Sertraline 100 MG Tablet PO (08:48)
[2019-06-04] MEDS: Carvedilol 6.25 MG Tablet PO (08:48)
[2019-06-04] MEDS: Aspirin E.C. 81 MG Tablet PO (08:48)
[2019-06-04] MEDS: amLODIPine 10 MG Tablet PO (08:49)
[2019-06-04] MEDS: Famotidine 20 MG Tablet PO (08:49)
[2019-06-04] MEDS: guaiFENesin 1,200 MG Tablet 1200 MG PO (08:49)
[2019-06-04] MEDS: Thiamine Hydrochloride 100 MG Tablet PO (08:50)
[2019-06-04] MEDS: chlordiazePOXIDE 25 MG Capsule PO (08:52)
[2019-06-04] MEDS: Enoxaparin 40 MG/0.4 ML Syringe SC (08:54)
--- NOTE | 2019-06-04 11:36 | PCM.DC ---
- Discharge Diagnoses Current Active Problems: Current Active and Chronic Problems (Last Reviewed 05/31/19 @ 07:44 by Abraham Sanches MD) Hypoxia (Acute) You will use the following diet at home:: Regular Your food should be the consistency of: Regular Your liquids should be the consistency of: Regular/Thin Discharge Activity: Return to Normal Activity Call your doctor if you observe: Fever of 101 or Higher, Shortness of breath, Dizziness, Fainting spells, Swelling in the ankles, Chest pain, Increased palpitations (irregular heartbeat) Allergies/Adverse Reactions: Allergies pseudoephedrine Adverse Reaction (Verified 05/31/19 03:09) Other CAUSES PROSTATE TO ENLARGE AND UNABLE TO URINATE Medications to take at Discharge Omeprazole [Prilosec] 20 mg PO DAILY 06/17/14 Aspirin [Adult Low Dose Aspirin EC] 81 mg PO DAILY 06/17/16 cycloBENZAPRine HCl [Flexeril] 10 mg PO PRN PRN 06/17/16 Nitroglycerin (INPATIENT USE) [Nitrostat] 0.4 mg SUBLINGUAL Q5M PRN 03/14/17 L.acidoph,Paracasei, B.lactis [Probiotic] 1 ea PO DAILY 11/21/17 atorvastatin 80 mg tablet 80 mg PO QHS #30 tab 12/20/17 famotidine 20 mg tablet 20 mg PO DAILY 09/29/18 quetiapine 50 mg tablet 50 mg PO QHS PRN tab 09/29/18 thiamine HCl (vitamin B1) 100 mg tablet 100 mg PO DAILY 09/29/18 Naltrexone Microspheres [Vivitrol] 380 mg IM QMONTH 01/12/19 Albuterol Inhaler [Ventolin Hfa] 1 - 2 puff INHALATION Q4H PRN PRN #1 inhaler 05/28/19 Buspirone HCl 10 mg PO TID 05/28/19 Ketorolac [Toradol] 10 mg PO Q6H PRN #14 tab 05/28/19 Sertraline HCl 100 mg PO DAILY 05/28/19 Amlodipine [Norvasc] 10 mg PO DAILY #30 tab 06/04/19 Carvedilol [Coreg (Beta Kehinde)] 6.25 mg PO BID #60 tab 06/04/19 Lisinopril [Zestril] 10 mg PO DAILY #30 tab 06/04/19 The following prescriptions were given: Carvedilol [Coreg (Beta Kehinde)] 6.25 mg PO BID #60 tab Transmission Status: Pending to [facility] Amlodipine [Norvasc] 10 mg PO DAILY #30 tab Transmission Status: Pending to [facility] Primary Care Physician: Keren Kwon NP-C [Primary Care Provider] - Please follow up with your Primary Care Physician in: 3-5 days Test Results: Test results from this visit will be discussed in further detail at your follow-up appointment, if applicable.
--- NOTE | 2019-06-04 11:50 | PCM.DC.SUM ---
Discharge Date and Diagnosis - Problem List Patient Problems: Active and Suspected Problems (Last Reviewed 05/31/19 @ 07:44 by Abraham Sanches MD) Hypoxia (Acute) Heart failure (Suspected) Date of Admission: 05/31/19 Date of Discharge: 06/04/19 - Primary Discharge Diagnosis Active and Suspected Problems (Last Reviewed 05/31/19 @ 07:44 by Abraham Sanches MD) Hypoxia (Acute) Heart failure (Suspected) - Secondary Discharge Diagnosis Chronic Problems (Last Reviewed 05/31/19 @ 07:44 by Abraham Sanches MD) Atherosclerosis of coronary artery of [place] heart without angina pectoris (Chronic) Stented coronary artery (Chronic) November [id number] at [facility] History of tonsillectomy (Chronic) Hx of eye surgery (Chronic) Depression (Chronic) Obesity (BMI 30.0-34.9) (Chronic) Hyperlipidemia (Chronic) Hypertension (Chronic) Alcohol abuse (Chronic) Hospital Course and Treatment Imaging Results: CXR: IMPRESSION: Early congestive heart failure as described above. Differential diagnosis includes bilateral lower lobe pneumonia. Echo: Interpretation Summary Normal LV size. Left ventricular systolic function is normal. The estimated ejection fraction is 60 %. Contrast injection was performed. The study was technically difficult. Consults: None Operations: None Procedures: 2-D Echocardiogram Summary of Care Provided: Per HPI: The patient is a 53 year old M with a significant history of COPD; hypertension; CAD status post coronary stent; former tobacco abuse and alcoholism who presented with shortness of breath that started few hours before presentation. Patient woke up very short of breath. His shortness of breath scared him to the point that he thought that he was going to . Associated with symptoms is a productive cough of greenish-yellow sputum. Further he reports some chills. He was noted to be hypoxic at the emergency department and required oxygen supplementation. Patient was also at our emergency department on 05/28/2019 where he was diagnosed with viral syndrome and he was given a prescription dose for Toradol and albuterol inhaler. Hospital Course: 1. Hypertensive emergency with acute diastolic CHF/CAD with JUSTIN to LCx November 2017/XMK-16-nskf-old male who is been inconsistent about describing whether or not he is on alcohol and drugs or not. He initially came in with hypertensive emergency and what looked like CHF. His lisinopril was increased as was his metoprolol, and he was started on PRN labetalol. This can have a significant effect on his blood pressure so his medications were changed to Coreg 6.25 mg p.o. twice daily instead of the metoprolol, and Norvasc was added. He continued to have what appeared to be withdrawal-like symptoms given the fact that he was been very inconsistent with how much he drinks he was started on a CIWA protocol as well as a Librium taper. He is low pressure currently is in the 120s and he is feeling much better. He states that he had previously been on 20 mg lisinopril as an outpatient but he had renal problems with and therefore his primary care doctor had decreased him to 5 mg. On discharge we will decrease him to 10 mg of his lisinopril and continue with the Coreg instead of the metoprolol as well as the Norvasc. I did discuss with him that with a new additions to his blood pressure medication regimen, that if he were to get lightheaded or dizzy that he should discontinue the Norvasc. He will need to follow-up with his primary care doctor in 3 to 5 days and have a BMP as an outpatient to evaluate his kidney function. This was also discussed with him and he expressed understanding. 2. Alcohol withdrawal/cocaine use/anxiety/depression-he has been very inconsistent with how much he drinks, he tells me that he drinks very rarely however he told the nurse yesterday that he drinks 3 tall boys a day, and then he told the previous physician that he does not drink at all. It was felt that part of his tachycardia and hypertension was related to alcohol withdrawal since he tested positive for cocaine and admitted to some alcohol use. He was placed on alcohol withdrawal protocol which she tolerated very well. He feels much better today. He would like to continue on his Vivitrol though he states that he does continue to drink. Otherwise he will continue with his BuSpar, Zoloft, and Seroquel as needed. 3. His other medical diagnoses were evaluated and his home medications were continued where appropriate Patient Problems: Active and Suspected Problems (Last Reviewed 05/31/19 @ 07:44 by Abraham Sanches MD) Hypoxia (Acute) Heart failure (Suspected) - Physical Exam Vitals/I&O's: Vital Signs Temp Pulse Resp BP Pulse Ox 97.6 F L 92 16 117/79 100 06/04/19 08:43 06/04/19 08:43 06/04/19 08:43 06/04/19 08:43 06/04/19 08:43 Oxygen Flow Rate (L/min) 2 Oxygen Delivery Method Room Air Weight: 224 lb 3.362 oz Body Mass Index (BMI) 33.5 Finger Stick Blood Glucose 54 Intake and Output for Last 24 Hours 06/02/19 06/03/19 06/04/19 23:59 23:59 23:59 Intake Total 720 / 720 1445 / 1445 695 / 695 Output Total 1450 / 1450 Balance 720 / 720 -5 / -5 695 / 695 General: Alert, Oriented x3, Cooperative, No apparent distress HEENT: Atraumatic, PERRLA, EOMI, Normocephalic Oral: Moist Mucosa Neck: Supple, No JVD Lungs: Clear to auscultation, Normal air movement, No rhonchi, No wheeze, No rales Cardiovascular: Regular rate, Regular Rhythm, Normal S1, Normal S2, No murmurs Abdomen: Soft, Non Tender, Non-Distended, No Hepato-splenomegaly Extremities: No edema, Capillary Refill Less than 3 Seconds Neurological: Neuro grossly intact, Sensory exam intact to light touch and pain Psych/Mental Status: Flat Affect Microbiology Past 72 Hours 05/31/19 04:53 Blood Culture (Wb) - Anticubital Left Blood Culture - Preliminary No growth in 48 hours. 05/31/19 04:50 Blood Culture (Wb) - Anticubital Right Blood Culture - Preliminary No growth in 48 hours. Laboratory Results 06/04/19 06:05: Sodium 136, Potassium 4.1, Chloride 102, Carbon Dioxide 26.0, Anion Gap 8, BUN 33 H, Creatinine 1.35 H, Estim Creat Clear Calc 66.09, Est GFR (MDRD) Af Amer 71, Est GFR (MDRD) Non-Af 59 L, BUN/Creatinine Ratio 24.4 H, Glucose 104, Calcium 9.0 Current Medications Acetaminophen (Tylenol) 650 mg PO Q6H PRN PRN PRN Reason: Pain Score 1-3/Temp > 100.7 F Amlodipine Besylate (Norvasc) 10 mg PO DAILY [facility] Last Admin: 06/04/19 08:49 Dose: 10 mg Documented by: Aspirin (Ecotrin) 81 mg PO DAILY [facility] Last Admin: 06/04/19 08:48 Dose: 81 mg Documented by: Atorvastatin Calcium (Lipitor) 80 mg PO QHS [facility] Last Admin: 06/03/19 20:50 Dose: 80 mg Documented by: Buspirone HCl (Buspar) 10 mg PO TID [facility] Last Admin: 06/04/19 05:08 Dose: 10 mg Documented by: Carvedilol (Coreg) 6.25 mg PO BID [facility] Last Admin: 06/04/19 08:48 Dose: 6.25 mg Documented by: Chlordiazepoxide (Librium) 25 mg PO Q12H [facility]; Taper Stop: 06/04/19 19:59 Last Admin: 06/04/19 08:52 Dose: 25 mg Documented by: Cyclobenzaprine HCl (Flexeril) 10 mg PO DAILY PRN PRN PRN Reason: Pain Score 1-10/10 Dextrose (D50w Syringe) 0 gm IV X1 PRN; Protocol PRN Reason: Hypoglycemia Dicyclomine HCl (Bentyl) 20 mg PO Q6H PRN PRN PRN Reason: abdominal discomfort Enoxaparin Sodium (Lovenox) 40 mg SC DAILY@1000 [facility] Last Admin: 06/04/19 08:54 Dose: 40 mg Documented by: Famotidine (Pepcid) 20 mg PO DAILY [facility] Last Admin: 06/04/19 08:49 Dose: 20 mg Documented by: Glucagon () 1 mg IM .X1 PRN PRN Reason: Hypoglycemia Guaifenesin (Mucinex) 1,200 mg PO BID [facility] Last Admin: 06/04/19 08:49 Dose: 1,200 mg Documented by: Sodium Chloride () 250 mls @ 15 mls/hr IV .[id number] PRN PRN Reason: Saline Flush Labetalol HCl (Trandate) 20 mg IV Q4H PRN PRN PRN Reason: SBP > 160 Last Admin: 06/01/19 17:05 Dose: 20 mg Documented by: Lactobacillus Acidophilus (Acidophilus) 1 tablet PO DAILY [facility] Last Admin: 06/04/19 08:48 Dose: 1 tablet Documented by: Lisinopril (Zestril) 20 mg PO DAILY [facility] Last Admin: 06/04/19 08:47 Dose: 20 mg Documented by: Lorazepam (Ativan) 2 mg IV X1 PRN PRN Reason: Seizure Lorazepam (Ativan) 1 mg IV Q2H PRN PRN PRN Reason: Severe Anxiety Melatonin (Melatonin) 3 mg PO QHS PRN PRN Reason: SLEEP Last Admin: 06/03/19 23:05 Dose: 3 mg Documented by: Methocarbamol (Methocarbamol) 750 mg PO Q6H PRN PRN PRN Reason: Muscle Aches [facility]) [facility] Last Admin: 06/04/19 08:47 Dose: 1 tablet Documented by: Ondansetron HCl (Zofran) 4 mg IV Q8H PRN PRN PRN Reason: NAUSEA/VOMITING Pantoprazole Sodium (Protonix) 20 mg PO DAILY [facility] Last Admin: 06/04/19 08:47 Dose: 20 mg Documented by: Quetiapine Fumarate (Seroquel) 50 mg PO QHS PRN PRN PRN Reason: INSOMNIA Sertraline HCl (Zoloft) 100 mg PO DAILY [facility] Last Admin: 06/04/19 08:48 Dose: 100 mg Documented by: Sodium Chloride () 10 - 40 ml IV UD PRN PRN Reason: SALINE FLUSH Last Admin: 06/01/19 17:05 Dose: 10 ml Documented by: Thiamine HCl (Vitamin B1) 100 mg PO DAILY [facility] Last Admin: 06/04/19 08:50 Dose: 100 mg Documented by: Discharge Activity: Return to Normal Activity Call your doctor if you observe: Fever of 101 or Higher, Shortness of breath, Dizziness, Fainting spells, Swelling in the ankles, Chest pain, Increased palpitations (irregular heartbeat) Home Medications: Medications to take at Discharge Omeprazole [Prilosec] 20 mg PO DAILY 06/17/14 Aspirin [Adult Low Dose Aspirin EC] 81 mg PO DAILY 06/17/16 cycloBENZAPRine HCl [Flexeril] 10 mg PO PRN PRN 06/17/16 Nitroglycerin (INPATIENT USE) [Nitrostat] 0.4 mg SUBLINGUAL Q5M PRN 03/14/17 L.acidoph,Paracasei, B.lactis [Probiotic] 1 ea PO DAILY 11/21/17 atorvastatin 80 mg tablet 80 mg PO QHS #30 tab 12/20/17 famotidine 20 mg tablet 20 mg PO DAILY 09/29/18 quetiapine 50 mg tablet 50 mg PO QHS PRN tab 09/29/18 thiamine HCl (vitamin B1) 100 mg tablet 100 mg PO DAILY 09/29/18 Naltrexone Microspheres [Vivitrol] 380 mg IM QMONTH 01/12/19 Albuterol Inhaler [Ventolin Hfa] 1 - 2 puff INHALATION Q4H PRN PRN #1 inhaler 05/28/19 Buspirone HCl 10 mg PO TID 05/28/19 Ketorolac [Toradol] 10 mg PO Q6H PRN #14 tab 05/28/19 Sertraline HCl 100 mg PO DAILY 05/28/19 Amlodipine [Norvasc] 10 mg PO DAILY #30 tab 06/04/19 Carvedilol [Coreg (Beta Kehinde)] 6.25 mg PO BID #60 tab 06/04/19 Lisinopril [Zestril] 10 mg PO DAILY #30 tab 06/04/19 Following Prescrptions Were Given to Patient: Carvedilol [Coreg (Beta Kehinde)] 6.25 mg PO BID #60 tab Transmission Status: Received by [facility] Amlodipine [Norvasc] 10 mg PO DAILY #30 tab Transmission Status: Received by [facility] Primary Care Physician: Keren Kwon NP-C [Primary Care Provider] - Please follow up with your Primary Care Physician in: 3-5 days Please Follow Up With: Keren Kwon NP-C Disposition: Home Minutes spent on discharge:: 35 Patient Condition:: Stable Medical Necessity - Tobacco Use Smoking Status: Former smoker Meaningful Use Info Meaningful Use Diagnoses (Choose all that apply): None applicable Code Visit Inpatient E&M: 88003 Disch Hosp
--- NOTE | 2019-06-04 12:48 | PHA.DC.MC ---
Pharmacy Service has performed discharge medication reconciliation and counseling for this patient. 1. AMLODIPINE 10MG PO DAILY 2. CARVEDILOL 6.25MG PO BID The patient's discharge medication list was reviewed for discrepancies and discrepancies were resolved. Home Medications Omeprazole [Prilosec] 20 mg PO DAILY 06/17/14 Aspirin [Adult Low Dose Aspirin EC] 81 mg PO DAILY 06/17/16 cycloBENZAPRine HCl [Flexeril] 10 mg PO PRN PRN 06/17/16 Nitroglycerin (INPATIENT USE) [Nitrostat] 0.4 mg SUBLINGUAL Q5M PRN 03/14/17 L.acidoph,Paracasei, B.lactis [Probiotic] 1 ea PO DAILY 11/21/17 atorvastatin 80 mg tablet 80 mg PO QHS #30 tab 12/20/17 famotidine 20 mg tablet 20 mg PO DAILY 09/29/18 quetiapine 50 mg tablet 50 mg PO QHS PRN tab 09/29/18 thiamine HCl (vitamin B1) 100 mg tablet 100 mg PO DAILY 09/29/18 Naltrexone Microspheres [Vivitrol] 380 mg IM QMONTH 01/12/19 Albuterol Inhaler [Ventolin Hfa] 1 - 2 puff INHALATION Q4H PRN PRN #1 inhaler 05/28/19 Buspirone HCl 10 mg PO TID 05/28/19 Ketorolac [Toradol] 10 mg PO Q6H PRN #14 tab 05/28/19 Sertraline HCl 100 mg PO DAILY 05/28/19 Amlodipine [Norvasc] 10 mg PO DAILY #30 tab 06/04/19 Carvedilol [Coreg (Beta Kehinde)] 6.25 mg PO BID #60 tab 06/04/19 Lisinopril [Zestril] 10 mg PO DAILY #30 tab 06/04/19 The patient was counseled on the following discharge medications and changes in medications for homegoing were reviewed. The Reason for Use, instructions for use, and potential side effects were reviewed for all new medications. The patient's questions regarding all of their medications were answered. The patient was able to verbally demonstrate an understanding of their discharge medications.
--- NOTE | 2019-06-05 13:07 | CASEMGMT ---
YONI GONZALEZ Discharge Follow-Up Phone Call. Lace: 14 Strata: 4 Discharge Date: 06/04/19 Adm Dx: Probable Heart Failure Attempted discharge follow-up phone call. No answer. Message left for pt to return call to GREASE REMOVERSandra VALLEJO CM, if he has any questions/concerns about the discharge instructions, medications, or follow-up appts. Phone number provided. Jose ALMODOVAR RN, CM
== END 2019-06-04 13:32 | disposition home or self-care (01) | DRG 194 ==
LOC: ED 04:51 → MS3 05:40 → PCU 07:20
PROVIDERS: Internal Medicine; Admitting Provider Hospitalist; Emergency Provider Emergency Medicine; Family Provider Registered Nurse; PCP Registered Nurse; Referring Provider Hospitalist; Visit Provider Family Medicine
DX: I11.0 Hypertensive heart disease with heart failure (principal); I50.31 Acute diastolic (congestive) heart failure; I25.10 Atherosclerotic heart disease of native coronary artery without angina pectoris; R09.02 Hypoxemia; E78.5 Hyperlipidemia, unspecified; E66.9 Obesity, unspecified; J44.9 Chronic obstructive pulmonary disease, unspecified; Z23 Encounter for immunization; I16.1 Hypertensive emergency; F32.9 Major depressive disorder, single episode, unspecified; Z68.33 Body mass index [BMI] 33.0-33.9, adult; Z95.5 Presence of coronary angioplasty implant and graft; Z87.891 Personal history of nicotine dependence; F10.239 Alcohol dependence with withdrawal, unspecified; F14.90 Cocaine use, unspecified, uncomplicated; F41.9 Anxiety disorder, unspecified; B34.9 Viral infection, unspecified
CPT/HCPCS: 36415; 71045; 71046; 80048; 80076; 80307; 80320; 82040; 82306; 83605; 83880; 84443; 84484; 85025; 87040; 87633; 93005; 93306; 94640; 96361; 96374; 96375; 97162; 97165; 97530; 97535; 97803; 99251; 99284; 99285; J7030; Q9957; 90686; A4216; C8929; G0463; G0480; J1940

== ENCOUNTER → 2019-12-08 13:23 | Outpatient (CLI) | payer MEDICAID, SELFPAY ==
[2017-11-21 12:50] VITALS: BMI 32.3
[2019-05-31 05:48] VITALS: BMI 33.5
--- OUTSIDE RECORDS SUMMARY | 2020-05-03 13:31 | XMS RPT_ITS | CCD ---
:1965 External Reference #:[id number] Author Organization [facility] Care Team Providers Name Role Phone EILEEN, Alejandrina Unavailable Unavailable EILEEN, Alejandrina Unavailable Unavailable EILEEN Unavailable Unavailable EILEEN Unavailable Unavailable Ileana RSanjeev Unavailable Unavailable EILEEN Unavailable Unavailable EILEEN Unavailable Unavailable Ileana RSanjeev Unavailable Unavailable Doyle (Maia) Primary Care Provider Allergies Reported Allergen Reaction(s) Severity Date of Onset Location pseudoephedrine Other: See Comments 06-26-2016 - [facility] Translations: [ Other [place] PSEUDOEPHEDRINE, Repository PSEUDOEPHEDRINE] Medications Medication Name Sig Date Prescriber Location Acetaminophen acetaminophen (TYLENOL 09-04-2018 Rebecca Devries [facility] EXTRA STRENGTH) 500 mg (4419 5) tablet Take 1 tablet by mouth every 6 hours as needed for Pain. 24 tablet 0 09/04/2018 Active Comment: Take 1 tablet by mouth every 6 hours as needed for Pain. Albuterol albuterol HFA (VENTOLIN HFA) 11-25-2019 Keren Robles ) [facility] 90 mcg/actuation inhaler Doyle ([id number]) Inhale 2 Puffs as instructed every 4 hours as needed for Wheezing/Shortness of Breath. 1 Inhaler 5 11/25/2019 Active Comment: Inhale 2 Puffs as instructed every 4 hours as needed for Wheezing/Shortness of Breath. amLODIPine amLODIPine (NORVASC) 02-22-2020 - Keren Robles) [facility] 10 mg tablet 03-23-2020 Doyle ([id number]) Indications: Hypertension, essential Take 1 tablet by mouth once daily. 30 tablet 3 02/22/2020 03/23/2020 Active Comment: Take 1 tablet by mouth once daily. Aspirin aspirin, enteric coated 10-27-2019 Keren Robles) Eduardo goode [facility] (ECOTRIN LOW STRENGTH) (4419 5) 81 mg EC tablet Take 1 tablet by mouth once daily. 90 tablet 3 10/27/2019 Active Comment: Take 1 tablet by mouth once daily. atorvastatin atorvastatin (LIPITOR) 80 mg 10-27-2019 [facility] ([facility] ) [facility] tablet Indications: Doyle ([id number]) Hypertriglyceridemia Take 1 tablet by mouth daily at bedtime. 30 tablet 5 10/27/2019 Active Comment: Take 1 tablet by mouth daily at bedtime. benzonatate benzonatate (TESSALON 09-07-2019 Kerry Godoy (Bore [employer] [facility] PERLE) 100 mg capsule [facility]) Amanda ([id number] ) Indications: Viral URI with cough Take 2 capsules by mouth three times daily as needed. 42 capsule 0 09/07/2019 Active Comment: Take 2 capsules by mouth thr ee times daily as needed. buPROPion buPROPion XL (WELLBUTRIN 02-24-2015 [facility] Provider [facility] ([id number]) XL) 300 mg 24 hr tablet Take 1 tablet by mouth once daily. 0 02/24/2015 Active Comment: Take 1 tablet by mouth once daily. busPIRone busPIRone (BUSPAR) 10 02-18-2020 [facility]) [facility] mg tablet Take 1 tablet ([phone]) by mouth three times daily. 90 tablet 1 02/18/2020 Active Comment: Take 1 tablet by mouth three times daily. carvedilol carvedilol (COREG) 6.25 02-22-2020 [facility]) [facility] mg tablet Indications: Doyle ([id number] 5) Hypertension, essential Take 1 tablet by mouth twice daily. 60 tablet 3 02/22/2020 Active Comment: Take 1 tablet by mouth twice daily. cyclobenzaprine cyclobenzaprine 02-18-2020 [facility]) [facility] (FLEXERIL) 10 mg tablet [facility] (441 [id number]) Take 1 tablet by mouth once daily as needed. 30 tablet 0 02/18/2020 Active Comment: Take 1 tablet by mouth once daily as needed. fluticasone fluticasone (FLONASE) 50 09-07-2019 Kerry Godoy ([employer] [facility] mcg/actuation nasal [facility]) Amanda ([id number]) spray Indications: Viral URI with cough Use 2 Sprays in each nostril once daily. Rinse mouth after use. 1 Bottle 0 09/07/2019 Active Comment: Use 2 Sprays in each nostril once daily. Rinse mouth after use. L. gasseri-B. L. gasseri-B. 07-23-2019 Keren ([facility]) [place] [facility] bifidum-B longum bifidum-B longum [facility] ([id number]) (PROBIOTIC COLON (PROBIOTIC COLON SUPPORT) 1.5 billion SUPPORT) 1.5 billion cell cap cell cap Take by mouth. 0 07/23/2019 Active L. gasseri-B. bifidum-B 07-23-2019 [facility]) anne [facility] ([id number]) longum (PROBIOTIC COLON SUPPORT) 1.5 billion cell cap Take by mouth. 0 07/23/2019 Active Comment: Take by mouth. lansoprazole lansoprazole 02-18-2020 - [facility] (PREVACID) 30 mg 04-18-2020 ([id number]) capsule Indications: GERD without esophagitis Take 1 capsule by mouth once daily. 30 capsule 5 02/18/2020 04/18/2020 Active Comment: Take 1 capsule by mouth once daily. Lisinopril lisinopril (ZESTRIL, 10-27-2019 Keren ([facility]) [facility] PRINIVIL) 10 mg tablet [facility] (4419 5) Indications: Hypertension, essential Take 1 tablet by mouth once daily. 30 tablet 5 10/27/2019 Active Comment: Take 1 tablet by mouth once daily. Melatonin melatonin 3 mg tablet Take by [facility] Provide r [facility] ([id number]) mouth. 0 Active Comment: Take by mouth. meloxicam meloxicam (MOBIC) 15 mg 02-18-2020 [facility] ([facility]) [facility] tablet Indications: [facility] (85389) Acute right-sided low back pain without sciatica , Right hip pain Take 1 tablet by mouth once daily. With food. 30 tablet 1 02/18/2020 Active Comment: Take 1 tablet by mouth once daily. With food. Naltrexone naltrexone ER (VIVITROL) 380 mg [facility] Provi silver [facility] ([id number]) injection Inject 380 mg intramuscularly one time only. 0 Active Comment: Inject 380 mg intramuscularl y one time only. Nitroglycerin nitroglycerin sublingual 06-12-2019 [facility] ([facility]) [facility] (NITROQUICK) 0.4 mg SL Haagen (4419 5) tablet Indications: NSTEMI (non-ST elevated myocardial infarction) (HCC) Dissolve 1 tablet under the tongue as needed. FOR CHEST PAIN. IF NO RELIEF CALL 911 1 Bottle of 25 3 06/12/2019 Active Comment: Dissolve 1 tablet under the tongue as needed. FOR CHEST PAIN. IF NO RELIEF CALL 911 POLYETHYLENE GLYCOL polyethylene glycol 05-12-2019 Keren ([facility]) [facility] [phone] (MIRALAX) 17 Haagen ([id number]) gram/dose powder Indications: Constipation, unspecified constipation type Take 17 g by mouth once daily. 1 Bottle 1 05/12/2019 Active Comment: Take 17 g by mouth once jenny y. Sertraline sertraline (ZOLOFT) 02-18-2020 - Vida Resendez) [facility] 50 mg tablet 03-17-2020 Glenn ([id number]) Indications: Anxiety and depression Take 2 tablets by mouth once daily. 60 tablet 0 03/18/2020 Active Comment: Take 2 tablets by mouth once daily. 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 30 tablet 3 02/22/2020 Active Comment: Take 1 tablet by mouth once daily. traZODone traZODone (DESYREL) 50 02-18-2020 Keren ([facility]) [facility] mg tablet Indications: Haagen (4419 5) Chronic insomnia Take 1 tablet by mouth at bedtime as needed. 30 tablet 1 02/18/2020 Active Comment: Take 1 tablet by mouth at be dtime as needed. Problems Active Problems Category Problem Name Status Date Location Acute myocardial Myocardial infarction Active 11-29-2017 - [facility] infarction ([id number]) Alcohol-related Persistent alcohol abuse Active 02-05-2014 - [facility] disorders (14179) Anxiety disorders Mixed anxiety and depressive Active 014 - [facility] disorder (13743) Disorders of lipid Hypertriglyceridemia Active 02-05-2014 - [facility] metabolism (40559) Essential Essential (primary) Active 08-24-2006 - Babs remediosfl hypertension [facility] (56494) Occlusion or stenosis Occlusion and stenosis of Active 2019 - [facility] of precerebral bilateral carotid arteries (33535) arteries Other upper Seasonal allergy Active 02-05-2014 - [facility] linic respiratory disease (28156) Unclassified Unknown / UNK(Unknown) Active 09-10-2017 - [facility] (39285) Past or Other Problems Category Problem Name Status Date Location Abdominal hernia Inguinal hernia Completed 07-09-2016 - [facility] ([id number]) Coronary atherosclerosis Drug coated stent in Completed 11-30-19 - [facility] and other heart disease circumflex branch of (89991) left coronary artery Nonspecific chest pain Chest pain, Completed 09-10-2017 - [facility] (02792) Other diseases of kidney Renal impairment Completed 02-05-2014 - [facility] and ureters (60321) Other injuries and H/O: head injury Completed 02-05-2014 - [facility] conditions due to (39439) external causes Spondylosis; Acute low back pain Completed 03-16-2019 - [facility] intervertebral disc (08209) disorders; other back problems Results Result Name Value Range Unit Interpretation Flag Date Location obsolete on 2020-02 OBSOLETE Refill (FAMPWS) Normal 03-17-2020 [facility] BETHANY MONTALVO ([id number]) 1965 [facility] Time Provider Department ([id number]) 03/17/20 VARGAS JARQUIN FAMPWS During your visit today, we recorded the following informati on about you: Shubahm Barrios LPN 03/18/2020 11:43 AM Signed Last refill 02/18/20 Qty: 60 with 0 refills Last ov 12/25/19 Has appt 03/25/20 Shubham Barrios LPN Allergies As of Date: 03/17/2020 Noted Allergy Reaction SUDAFED (PSEUDOEPHEDRINE) 06/26/2016 14 - Other: See Comment s Comments: Prostate infection Date Reviewed: 12/25/2019 Reviewed by: Donna Richey LPN - Fully Assessed Reason for Visit: Refill Request [94] Visit Diagnosis:Anxiety and depression [F41.9, F32.9] Order(s):sertraline (ZOLOFT) 50 mg tabletTake 2 tablets by m outh once daily.Disp: 60 tabletRfl: 0 Prescriptions as of 03/17/2020 Sig: SERTRALINE 50 MG TABLET Take 2 tablets by mouth once * AMLODIPINE 10 MG TABLET Take 1 tablet by mouth once d* CARVEDILOL 6.25 MG TABLET Take 1 tablet by mouth twice * THIAMINE HCL (VITAMIN B1) 100* Take 1 tablet by mouth once d * CYCLOBENZAPRINE 10 MG TABLET Take 1 tablet by mouth once d* MELOXICAM 15 MG TABLET Take 1 tablet by mouth once d* TRAZODONE 50 MG TABLET Take 1 tablet by mouth at bed* BUSPIRONE 10 MG TABLET Take 1 tablet by mouth three * LANSOPRAZOLE 30 MG CAPSULE,DE* Take 1 capsule by mouth once * ALBUTEROL SULFATE HFA 90 MCG/* Inhale 2 Puffs as instructed * ASPIRIN 81 MG TABLET,DELAYED * Take 1 tablet by mouth once d * LISINOPRIL 10 MG TABLET Take 1 tablet by mouth once d* ATORVASTATIN 80 MG TABLET Take 1 tablet by mouth daily * FLUTICASONE PROPIONATE 50 MCG* Use 2 Sprays in each nostril * BENZONATATE 100 MG CAPSULE Take 2 capsules by mouth thre* PROBIOTIC COLON SUPPORT 1.5 B* Take by mouth. NITROGLYCERIN 0.4 MG SUBLINGU* Dissolve 1 tablet under the t * BUPROPION XL 300 MG 24 HR TAB Take 1 tablet by mouth once d* POLYETHYLENE GLYCOL 3350 17 G* Take 17 g by mouth once daily . MELATONIN 3 MG TABLET Take by mouth. NALTREXONE ER 380 MG INTRAMUS* Inject 380 mg intramuscularly * ACETAMINOPHEN 500 MG TABLET Take 1 tablet by mouth every * Problem List As Of Date 03/17/2020 Noted Resolved Moderate hypertension [I10] 08/24/2006 Anxiety and depression [F41.9, F32.9] 02/05/2014 Seasonal allergies [J30.2] 02/05/2014 Renal insufficiency [N28.9] 02/05/2014 History of skull fracture [Z87.81] 02/05/2014 Hypertriglyceridemia [E78.1] 02/05/2014 Chronic alcohol abuse [F10.10] 02/05/2014 Unilateral inguinal hernia without obstruction *07/09/2016 NSTEMI (non-ST elevated myocardial infarction) *11/29/2017 Presence of drug-eluting stent in left circumfl*11/29/2017 Acute right-sided low back pain without sciatic*03/16/2019 Bilateral carotid artery stenosis [I65.23] 01/14/2020 More... Prescriptions ordered this encounter Disp Refills Start End SERTRALINE 50 MG TABLET 60 t* 0 03/18/2020 Route: ORAL Sig: Take 2 tablets by mouth once daily. Medications Discontinued During This Encounter Prescriptions - sertraline (ZOLOFT) 50 mg tablet (Discontinued) Take 2 tablets by mouth once daily. Encounter Status:Closed by VIDA DREW MD on 0 obsolete on 2020-02 OBSOLETE Refill (CARDWS) Normal 02-21-2020 Efren [facility] BETHANY MONTALVO ([id number]) 1965 [facility] Date Time Provider Department ([id number]) 02/21/20 KEREN KWON) LAURENCE During your visit today, we recorded the following informati on about you: Donna Richey LPN 02/22/2020 9:46 AM Signed Patient phones requesting refills as follows: Pending Prescriptions Disp Refills AMLODIPINE 10 MG TABLET 30 tablet 3 Sig: Take 1 tablet by mouth once daily. AMBROCIO: No CARVEDILOL 6.25 MG TABLET 60 tablet 3 Sig: Take 1 tablet by mouth twice daily. AMBROCIO: No THIAMINE HCL (VITAMIN B1) 100 MG TABLET 30 tablet 3 Sig: Take 1 tablet by mouth once daily. AMBROCIO: No Please review and advise. Donna Kwon APRN.CNP 02/22/2020 10:11 AM Signed Script sent. Keren Kwon APRN.CNP Allergies As of Date: 02/21/2020 Noted Allergy Reaction SUDAFED (PSEUDOEPHEDRINE) 06/26/2016 14 - Other: See Comment s Comments: Prostate infection Date Reviewed: 12/25/2019 Reviewed by: Donna Richey LPN - Fully Assessed Reason for Visit: Refill Request [94] Visit Diagnoses:Hypertension, essential [I10] Chronic alcohol abuse [F10.10] Order(s):amLODIPine (NORVASC) 10 mg tabletTake 1 tablet by m outh once daily.Disp: 30 tabletRfl: 3 carvedilol (COREG) 6.25 mg tabletTake 1 tablet by mouth twic e daily.Disp: 60 tabletRfl: 3 thiamine (VITAMIN B1) 100 mg tabletTake 1 tablet by mouth on ce daily.Disp: 30 tabletRfl: 3 Prescriptions as of 02/21/2020 Sig: AMLODIPINE 10 MG TABLET Take 1 tablet by mouth once d* CARVEDILOL 6.25 MG TABLET Take 1 tablet by mouth twice * THIAMINE HCL (VITAMIN B1) 100* Take 1 tablet by mouth once d * CYCLOBENZAPRINE 10 MG TABLET Take 1 tablet by mouth once d* MELOXICAM 15 MG TABLET Take 1 tablet by mouth once d* TRAZODONE 50 MG TABLET Take 1 tablet by mouth at bed* BUSPIRONE 10 MG TABLET Take 1 tablet by mouth three * SERTRALINE 50 MG TABLET Take 2 tablets by mouth once * LANSOPRAZOLE 30 MG CAPSULE,DE* Take 1 capsule by mouth once * ALBUTEROL SULFATE HFA 90 MCG/* Inhale 2 Puffs as instructed * ASPIRIN 81 MG TABLET,DELAYED * Take 1 tablet by mouth once d * LISINOPRIL 10 MG TABLET Take 1 tablet by mouth once d* ATORVASTATIN 80 MG TABLET Take 1 tablet by mouth daily * FLUTICASONE PROPIONATE 50 MCG* Use 2 Sprays in each nostril * BENZONATATE 100 MG CAPSULE Take 2 capsules by mouth thre* PROBIOTIC COLON SUPPORT 1.5 B* Take by mouth. NITROGLYCERIN 0.4 MG SUBLINGU* Dissolve 1 tablet under the t * BUPROPION XL 300 MG 24 HR TAB Take 1 tablet by mouth once d* POLYETHYLENE GLYCOL 3350 17 G* Take 17 g by mouth once daily . MELATONIN 3 MG TABLET Take by mouth. NALTREXONE ER 380 MG INTRAMUS* Inject 380 mg intramuscularly * ACETAMINOPHEN 500 MG TABLET Take 1 tablet by mouth every * Problem List As Of Date 02/21/2020 Noted Resolved Moderate hypertension [I10] 08/24/2006 Anxiety and depression [F41.9, F32.9] 02/05/2014 Seasonal allergies [J30.2] 02/05/2014 Renal insufficiency [N28.9] 02/05/2014 History of skull fracture [Z87.81] 02/05/2014 Hypertriglyceridemia [E78.1] 02/05/2014 Chronic alcohol abuse [F10.10] 02/05/2014 Unilateral inguinal hernia without obstruction *07/09/2016 NSTEMI (non-ST elevated myocardial infarction) *11/29/2017 Presence of drug-eluting stent in left circumfl*11/29/2017 Acute right-sided low back pain without sciatic*03/16/2019 Bilateral carotid artery stenosis [I65.23] 01/14/2020 More... Prescriptions ordered this encounter Disp Refills Start End AMLODIPINE 10 MG TABLET 30 t* 3 02/22/2020 03/23/2020 Route: ORAL Sig: Take 1 tablet by mouth once daily. CARVEDILOL 6.25 MG TABLET 60 t* 3 02/22/2020 Route: ORAL Sig: Take 1 tablet by mouth twice daily. THIAMINE HCL (VITAMIN B1) 100 MG TAB* 30 t* 3 02/22/2020 Route: ORAL Sig: Take 1 tablet by mouth once daily. Medications Discontinued During This Encounter Prescriptions - amLODIPine (NORVASC) 10 mg tablet (Discontinued) Take 1 tablet by mouth once daily. - carvedilol (COREG) 6.25 mg tablet (Discontinued) Take 1 tablet by mouth twice daily. - thiamine (VITAMIN B1) 100 mg tablet (Discontinued) Take 1 tablet by mouth once daily. Encounter Status:Closed by KEREN KWON CNP on 02/22/20 obsolete on 2020-01 OBSOLETE Refill (CARDWS) Normal 02-18-2020 Efren li BETHANY Madsen ([id number]) 1965 [place] Date Time Provider Department ([id number]) 02/18/20 KEREN KWON (MAIA) CARDWS During your visit today, we recorded the following informati on about you: Mary Brockwalt Go 02/19/2020 9:10 AM Signed Patient has been identified by name and date of : Yes Pending Prescriptions Disp Refills CARVEDILOL 6.25 MG TABLET 60 tablet 3 Sig: Take 1 tablet by mouth twice daily. AMBROCIO: No RX INSTRUCTIONS: Patient aware RX will be sent to pharmacy. No need to notify patient. Mary Thompson APRN.CNP 02/19/2020 9:21 AM Signed The following approved medic ation requests have been transmitted electronically. Pending Prescriptions Disp Refills CARVEDILOL 6.25 MG TABLET 60 tablet 3 Sig: Take 1 tablet by mouth twice daily. AMBROCIO: No Janes Thompson APRN.CNP Allergies As of Date: 02/18/2020 Noted Allergy Reaction SUDAFED (PSEUDOEPHEDRINE) 06/26/2016 14 - Other: See Comment s Comments: Prostate infection Date Reviewed: 12/25/2019 Reviewed by: Donna Richey LPN - Fully Assessed Reason for Visit: Refill Request [94] Visit Diagnosis:Hypertension, essential [I10] Order(s):carvedilol (COREG) 6.25 mg tabletTake 1 tablet by m outh twice daily.Disp: 60 tabletRfl: 3 Prescriptions as of 02/18/2020 Sig: CARVEDILOL 6.25 MG TABLET Take 1 tablet by mouth twice * THIAMINE HCL (VITAMIN B1) 100* Take 1 tablet by mouth once d * CYCLOBENZAPRINE 10 MG TABLET Take 1 tablet by mouth once d* MELOXICAM 15 MG TABLET Take 1 tablet by mouth once d* TRAZODONE 50 MG TABLET Take 1 tablet by mouth at bed* BUSPIRONE 10 MG TABLET Take 1 tablet by mouth three * SERTRALINE 50 MG TABLET Take 2 tablets by mouth once * LANSOPRAZOLE 30 MG CAPSULE,DE* Take 1 capsule by mouth once * ALBUTEROL SULFATE HFA 90 MCG/* Inhale 2 Puffs as instructed * ASPIRIN 81 MG TABLET,DELAYED * Take 1 tablet by mouth once d * LISINOPRIL 10 MG TABLET Take 1 tablet by mouth once d* ATORVASTATIN 80 MG TABLET Take 1 tablet by mouth daily * FLUTICASONE PROPIONATE 50 MCG* Use 2 Sprays in each nostril * BENZONATATE 100 MG CAPSULE Take 2 capsules by mouth thre* PROBIOTIC COLON SUPPORT 1.5 B* Take by mouth. NITROGLYCERIN 0.4 MG SUBLINGU* Dissolve 1 tablet under the t * BUPROPION XL 300 MG 24 HR TAB Take 1 tablet by mouth once d* POLYETHYLENE GLYCOL 3350 17 G* Take 17 g by mouth once daily . MELATONIN 3 MG TABLET Take by mouth. NALTREXONE ER 380 MG INTRAMUS* Inject 380 mg intramuscularly * ACETAMINOPHEN 500 MG TABLET Take 1 tablet by mouth every * Problem List As Of Date 02/18/2020 Noted Resolved Moderate hypertension [I10] 08/24/2006 Anxiety and depression [F41.9, F32.9] 02/05/2014 Seasonal allergies [J30.2] 02/05/2014 Renal insufficiency [N28.9] 02/05/2014 History of skull fracture [Z87.81] 02/05/2014 Hypertriglyceridemia [E78.1] 02/05/2014 Chronic alcohol abuse [F10.10] 02/05/2014 Unilateral inguinal hernia without obstruction *07/09/2016 NSTEMI (non-ST elevated myocardial infarction) *11/29/2017 Presence of drug-eluting stent in left circumfl*11/29/2017 Acute right-sided low back pain without sciatic*03/16/2019 Bilateral carotid artery stenosis [I65.23] 01/14/2020 More... Prescriptions ordered this encounter Disp Refills Start End CARVEDILOL 6.25 MG TABLET 60 t* 3 02/19/2020 Route: ORAL Sig: Take 1 tablet by mouth twice daily. Medications Discontinued During This Encounter carvedilol (COREG) 6.25 mg tablet 60 t* 3 10/27/2019 02/19/2020 Route: ORAL Sig: Take 1 tablet by mouth twice daily. Disc: Reason for discontinue is not on file. Encounter Status:Closed by JANES THOMPSON CNP on 02/19/20 OBSOLETE Refill (CARDWS) Normal 02-18-2020 [facility] SELVINBETHANY Rolando ([id number]) 1965 [facility] Date Time Provider Department ([id number]) 02/18/20 KEREN KWON (MAIA) LAURENCE During your visit today, we recorded the following informati on about you: Mary Valencia Ma 02/19/2020 9:54 AM Signed Patient has been identified by name and date of : Yes Pending Prescriptions Disp Refills THIAMINE HCL (VITAMIN B1) 100 MG TABLET 30 tablet 3 Sig: Take 1 tablet by mouth once daily. AMBROCIO: No RX INSTRUCTIONS: Patient aware RX will be sent to pharmacy. No need to notify patient. Mary Thompson APRN.CNP 02/19/2020 10:04 AM Signed The following approved medic ation requests have been transmitted electronically. Pending Prescriptions Disp Refills THIAMINE HCL (VITAMIN B1) 100 MG TABLET 30 tablet 3 Sig: Take 1 tablet by mouth once daily. AMBROCIO: No Janes Thompson APRN.CNP Allergies As of Date: 02/18/2020 Noted Allergy Reaction SUDAFED (PSEUDOEPHEDRINE) 06/26/2016 14 - Other: See Comment s Comments: Prostate infection Date Reviewed: 12/25/2019 Reviewed by: Donna Richey LPN - Fully Assessed Reason for Visit: Refill Request [94] Visit Diagnosis:Chronic alcohol abuse [F10.10] Order(s):thiamine (VITAMIN B1) 100 mg tabletTake 1 tablet by mouth once daily.Disp: 30 tabletRfl: 3 Prescriptions as of 02/18/2020 Sig: CARVEDILOL 6.25 MG TABLET Take 1 tablet by mouth twice * THIAMINE HCL (VITAMIN B1) 100* Take 1 tablet by mouth once d * CYCLOBENZAPRINE 10 MG TABLET Take 1 tablet by mouth once d* MELOXICAM 15 MG TABLET Take 1 tablet by mouth once d* TRAZODONE 50 MG TABLET Take 1 tablet by mouth at bed* BUSPIRONE 10 MG TABLET Take 1 tablet by mouth three * SERTRALINE 50 MG TABLET Take 2 tablets by mouth once * LANSOPRAZOLE 30 MG CAPSULE,DE* Take 1 capsule by mouth once * ALBUTEROL SULFATE HFA 90 MCG/* Inhale 2 Puffs as instructed * ASPIRIN 81 MG TABLET,DELAYED * Take 1 tablet by mouth once d * LISINOPRIL 10 MG TABLET Take 1 tablet by mouth once d* ATORVASTATIN 80 MG TABLET Take 1 tablet by mouth daily * FLUTICASONE PROPIONATE 50 MCG* Use 2 Sprays in each nostril * BENZONATATE 100 MG CAPSULE Take 2 capsules by mouth thre* PROBIOTIC COLON SUPPORT 1.5 B* Take by mouth. NITROGLYCERIN 0.4 MG SUBLINGU* Dissolve 1 tablet under the t * BUPROPION XL 300 MG 24 HR TAB Take 1 tablet by mouth once d* POLYETHYLENE GLYCOL 3350 17 G* Take 17 g by mouth once daily . MELATONIN 3 MG TABLET Take by mouth. NALTREXONE ER 380 MG INTRAMUS* Inject 380 mg intramuscularly * ACETAMINOPHEN 500 MG TABLET Take 1 tablet by mouth every * Problem List As Of Date 02/18/2020 Noted Resolved Moderate hypertension [I10] 08/24/2006 Anxiety and depression [F41.9, F32.9] 02/05/2014 Seasonal allergies [J30.2] 02/05/2014 Renal insufficiency [N28.9] 02/05/2014 History of skull fracture [Z87.81] 02/05/2014 Hypertriglyceridemia [E78.1] 02/05/2014 Chronic alcohol abuse [F10.10] 02/05/2014 Unilateral inguinal hernia without obstruction *07/09/2016 NSTEMI (non-ST elevated myocardial infarction) *11/29/2017 Presence of drug-eluting stent in left circumfl*11/29/2017 Acute right-sided low back pain without sciatic*03/16/2019 Bilateral carotid artery stenosis [I65.23] 01/14/2020 More... Prescriptions ordered this encounter Disp Refills Start End THIAMINE HCL (VITAMIN B1) 100 MG TAB* 30 t* 3 02/19/2020 Route: ORAL Sig: Take 1 tablet by mouth once daily. Medications Discontinued During This Encounter thiamine (VITAMIN B1) 100 mg tablet 30 t* 3 02/18/2020 020 Route: ORAL Sig: Take 1 tablet by mouth once daily. Disc: Reason for discontinue is not on file. Encounter Status:Closed by JANES THOMPSON CNP on 02/19/20 OBSOLETE Refill (CARDWS) Normal 02-18-2020 Efren li [facility] BETHANY MONTALVO ([id number]) 1965 M [facility] Time Provider Department ([id number]) 02/18/20 KEREN KWON (MAIA) [place] During your visit today, we recorded the following informati on about you: Shubham Barrios LPN 02/18/2020 10:49 AM Signed Last refill vit B1 10/27/19 Qty: 30 with 3 refills Flexeril 11/25/19 Qty: 30 with 0 refills Mobic 11/25/19 Qty: 30 with 1 refill Trazodone 11/25/19 Qty: 30 with 1 refill Buspar 12/01/19 Qty: 90 with 1 refill Last ov 12/25/19 No appt scheduled Shubham Thompson APRN.CNP 02/18/2020 10:50 AM Signed The following approved medic ation requests have been transmitted electronically. Pending Prescriptions Disp Refills THIAMINE HCL (VITAMIN B1) 100 MG TABLET 30 tablet 3 Sig: Take 1 tablet by mouth once daily. AMBROCIO: No CYCLOBENZAPRINE 10 MG TABLET 30 tablet 0 Sig: Take 1 tablet by mouth once daily as needed. AMBROCIO: No MELOXICAM 15 MG TABLET 30 tablet 1 Sig: Take 1 tablet by mouth once daily. With food. AMBROCIO: No TRAZODONE 50 MG TABLET 30 tablet 1 Sig: Take 1 tablet by mouth at bedtime as needed. AMBROCIO: No BUSPIRONE 10 MG TABLET 90 tablet 1 Sig: Take 1 tablet by mouth three times daily. AMBROCIO: No Janes Thompson APRN.CNP Allergies As of Date: 02/18/2020 Noted Allergy Reaction SUDAFED (PSEUDOEPHEDRINE) 06/26/2016 14 - Other: See Comment s Comments: Prostate infection Date Reviewed: 12/25/2019 Reviewed by: Donna Richey LPN - Fully Assessed Reason for Visit: Refill Request [94] Visit Diagnoses:Chronic alcohol abuse [F10.10] Acute right-sided low back pain without sciatica [M54.5] Right hip pain [M25.551] Chronic insomnia [F51.04] Order(s):thiamine (VITAMIN B1) 100 mg tabletTake 1 tablet by mouth once daily.Disp: 30 tabletRfl: 3 cyclobenzaprine (FLEXERIL) 10 mg tabletTake 1 tablet by mout h once daily as needed.Disp: 30 tabletRfl: 0 meloxicam (MOBIC) 15 mg tabletTake 1 tablet by mouth once da kehinde. With food.Disp: 30 tabletRfl: 1 traZODone (DESYREL) 50 mg tabletTake 1 tablet by mouth at [facility] as needed.Disp: 30 tabletRfl: 1 busPIRone (BUSPAR) 10 mg tabletTake 1 tablet by mouth three times daily.Disp: 90 tabletRfl: 1 Prescriptions as of 02/18/2020 Sig: THIAMINE HCL (VITAMIN B1) 100* Take 1 tablet by mouth once d * CYCLOBENZAPRINE 10 MG TABLET Take 1 tablet by mouth once d* MELOXICAM 15 MG TABLET Take 1 tablet by mouth once d* TRAZODONE 50 MG TABLET Take 1 tablet by mouth at bed* BUSPIRONE 10 MG TABLET Take 1 tablet by mouth three * NIZATIDINE 150 MG CAPSULE Take 1 capsule by mouth twice* ALBUTEROL SULFATE HFA 90 MCG/* Inhale 2 Puffs as instructed * ASPIRIN 81 MG TABLET,DELAYED * Take 1 tablet by mouth once d * AMLODIPINE 10 MG TABLET Take 1 tablet by mouth once d* CARVEDILOL 6.25 MG TABLET Take 1 tablet by mouth twice * LISINOPRIL 10 MG TABLET Take 1 tablet by mouth once d* SERTRALINE 50 MG TABLET Take 2 tablets by mouth once * OMEPRAZOLE 20 MG CAPSULE,JAMILA* Take 1 capsule by mouth daily * ATORVASTATIN 80 MG TABLET Take 1 tablet by mouth daily * FLUTICASONE PROPIONATE 50 MCG* Use 2 Sprays in each nostril * BENZONATATE 100 MG CAPSULE Take 2 capsules by mouth thre* PROBIOTIC COLON SUPPORT 1.5 B* Take by mouth. NITROGLYCERIN 0.4 MG SUBLINGU* Dissolve 1 tablet under the t * BUPROPION XL 300 MG 24 HR TAB Take 1 tablet by mouth once d* POLYETHYLENE GLYCOL 3350 17 G* Take 17 g by mouth once daily . MELATONIN 3 MG TABLET Take by mouth. NALTREXONE ER 380 MG INTRAMUS* Inject 380 mg intramuscularly * ACETAMINOPHEN 500 MG TABLET Take 1 tablet by mouth every * Problem List As Of Date 02/18/2020 Noted Resolved Moderate hypertension [I10] 08/24/2006 Anxiety and depression [F41.9, F32.9] 02/05/2014 Seasonal allergies [J30.2] 02/05/2014 Renal insufficiency [N28.9] 02/05/2014 History of skull fracture [Z87.81] 02/05/2014 Hypertriglyceridemia [E78.1] 02/05/2014 Chronic alcohol abuse [F10.10] 02/05/2014 Unilateral inguinal hernia without obstruction *07/09/2016 NSTEMI (non-ST elevated myocardial infarction) *11/29/2017 Presence of drug-eluting stent in left circumfl*11/29/2017 Acute right-sided low back pain without sciatic*03/16/2019 Bilateral carotid artery stenosis [I65.23] 01/14/2020 More... Prescriptions ordered this encounter Disp Refills Start End THIAMINE HCL (VITAMIN B1) 100 MG TAB* 30 t* 3 02/18/2020 Route: ORAL Sig: Take 1 tablet by mouth once daily. CYCLOBENZAPRINE 10 MG TABLET 30 t* 0 02/18/2020 Route: ORAL Sig: Take 1 tablet by mouth once daily as needed. MELOXICAM 15 MG TABLET 30 t* 1 02/18/2020 Route: ORAL Sig: Take 1 tablet by mouth once daily. With food. TRAZODONE 50 MG TABLET 30 t* 1 02/18/2020 Route: ORAL Sig: Take 1 tablet by mouth at bedtime as needed. BUSPIRONE 10 MG TABLET 90 t* 1 02/18/2020 Route: ORAL Sig: Take 1 tablet by mouth three times daily. Medications Discontinued During This Encounter thiamine (VITAMIN B1) 100 mg tablet 30 t* 3 10/27/2019 02/18/20 Route: ORAL Sig: Take 1 tablet by mouth once daily. Disc: Reason for discontinue is not on file. cyclobenzaprine (FLEXERIL) 10 mg tab* 30 t* 0 11/25/20192019 Route: ORAL Sig: Take 1 tablet by mouth once daily as needed. Disc: Reason for discontinue is not on file. meloxicam (MOBIC) 15 mg tablet 30 t* 1 11/25/2019 02/18/2020 Route: ORAL Sig: Take 1 tablet by mouth once daily. With food. Disc: Reason for discontinue is not on file. traZODone (DESYREL) 50 mg tablet 30 t* 1 11/25/2019 02/18/2020 Route: ORAL Sig: Take 1 tablet by mouth at bedtime as needed. Disc: Reason for discontinue is not on file. busPIRone (BUSPAR) 10 mg tablet 90 t* 1 12/01/2019 02/18/2020 Route: ORAL Sig: Take 1 tablet by mouth three times daily. Disc: Reason for discontinue is not on file. Encounter Status:Closed by JANES THOMPSON CNP on 02/18/20 rene on 2020-02-12 RENE Telephone (FAMPWS) Normal 02-12-2020 [place] [facility] BETHANY MONTALVO ([id number]) 1965 [facility] Date Time Provider Department ([id number]) 02/12/20 [facility]MAIA[facility] During your visit today, we recorded the following informati on about you: Donna Richey LPN 02/12/2020 12:59 PM Signed Pt dropped off child support form to be filled out. Form given to provider for completion. Donna Kwon APRN.MAIA 02/16/2020 6:04 PM Signed Can please let patient know that I'm wor kate on his form. However, I need some additional information. Has he returned to work? He was also to follow-up with cardiology last month. C an we please get those records? (raphael). I also placed order for an at home sleep study, however, I don't see here that has been scheduled yet. Can we please see about that. VENKAT Armendariz LPN 02/17/2020 10:24 AM Signed TC to pt, left message to return call to office. *Pt did see Dr. Martin 01/10/20, OV note printed from [facility] and given to provider for review. Donna Yanez LPN 02/17/2020 11:14 AM Signed Pt. has not worked since June. He has not had a sleep st udy.. Needs referral to [facility] Marcia Yanez LPN 02/17/2020 11:16 AM Signed Referral faxed to ENT. Pt. also says he is depressed and h aving a hard time leaving his room. Marcia Kwon, RETAIL DEPARTMENT RESET.TRAWL NET MAKER 02/17/2020 1:02 PM Signed Then I think that we need to get him re- established with psychiatry/psychology to help us out. Is he doing any counseling? Has he been pa rticipating in AA meeting? I put a referral in for a behavioral health licensed social worker to help us out. In the meantime, does he think the sertraline needs increase d? Donna Richey LPN 02/17/2020 3:57 PM Signed TC to pt, left message to return call to office. Donna Hanna LPN 02/18/2020 2:36 PM Signed Patient returned call and went over notes from Keren godoy CLAIMS CONSULTANT with understanding. Patient said he is doing counseling once a week, is going to AA meeting few times a week. Patient said he has been taking Sertraline 50 mg one t ablet daily for a long time. [employer] rx 2 tablets daily, he said has never h ad rx for two daily. Patient said willing to increase dose, new rx to [facility] please. Patient also said his Nizatidine rx has been on backorder since November asking for replacement rx to [facility] for that medication christopher Jarquin, MSN RETAIL DEPARTMENT RESET.TRAWL NET MAKER 02/18/2020 3:17 PM Signed I am covering while Keren is out of the office the rest of this week. 1. Nizatadine (Axid) on back order. In it's place there was a script for Prilosec (Omeprazole) sent t o his pharmacy in October. To take Prilosec 20 mg one capsule daily 30 minutes before breakfast. 2. We can increase Zoloft, would recomme nd that he take 1 1/2 tablet=75 mg for one week, then increase to 2 hvvgjbc=144 mg thereafter. I sent a new script for 60 tabs to his pharmacy. Rec destinee he follow up with Keren in 3 weeks, sooner if needed. I did not give refills, he co uld get refills at his f/u appointment which can be a VV. Vargas Jarquin, MSN RETAIL DEPARTMENT RESET.MAIA Barrios LPN 02/18/2020 4:15 PM Signed Spoke with pt and advised him of Vargas's message , pt verbalizes understanding and repeats back correctly. Pt states he has been on P rilosec x 15 years and has been taking Pepcid with it and then Pepcid was on back o rder and was replaced with the nizatadine. Pt states it has been May since he has had this. They keep telling him it will be coming in and then it doesn't and is still on back order. Pt states pharm advised him to call provider t o see if there is something else he can be given. My Chart Zoom f/u appt scheduled at this time. Shubham Jarquin MSN RETAIL DEPARTMENT RESET.TRAWL NET MAKER 02/18/2020 4:24 PM Signed Unfortunately there is no other alternative H2 mandy to re place Axid or Pepcid because Zantac has been removed from pharmacy shelv es. Both of these medications are on back orde r. He either continues as he is and waits or we can switch the Prilosec to Protonix or Nexiu m or Prevacid, whichever his insurance will take. These are equival ent to Prilosec and in same class of medication. He is to stop Prilosec and use Lansoprazole 30 mg once daily. The following approved medic ation requests have been transmitted electronically. Signed Prescriptions Disp Refills sertraline (ZOLOFT) 50 mg tablet 60 tablet 0 Sig: Take 2 tablets by mouth once daily. AMBROCIO: No Authorizing Provider: VARGAS JARQUIN lansoprazole (PREVACID) 30 mg capsule 30 capsule 5 Sig: Take 1 capsule by mouth once daily. Authorizing Provider: VARGAS JARQUIN, MSN RETAIL DEPARTMENT RESET.MAIA Jarquin, MSN RETAIL DEPARTMENT RESET.MAIA Barrios LPN 02/18/2020 4:57 PM Signed Pt notified of Vargas's message and is aware Prevacid h as been sent to pharm. Pt will try this and stop taking the Prilosec. Message has margie barker routed to Keren as COURTNEY. Please leave encounter open until Keren lloyd a chance to review. Shubham Kwon APRN.MAIA 02/23/2020 12:41 PM Signed Noted. Form complete. Please return as requested. Keren Kwon APRN.MAIA Richey LPN 02/23/2020 12:58 PM Signed Form faxed. Donna Richey LPN Allergies As of Date: 02/12/2020 Noted Allergy Reaction SUDAFED (PSEUDOEPHEDRINE) 06/26/2016 14 - Other: See Comment s Comments: Prostate infection Date Reviewed: 12/25/2019 Reviewed by: Donna Richey LPN - Fully Assessed Reason for Visit: Forms [913] Primary Visit Diagnosis:Anxiety with depression [F41.8] Other Visit Diagnoses:Anxiety and depression [F41.9, F32.9] GERD without esophagitis [K21.9] Order(s):CONS[facility] TO [facility] [[id number]] Order #: [id number]: 1 sertraline (ZOLOFT) 50 mg tabletTake 2 tablets by mouth once daily.Disp: 60 tabletRfl: 0 lansoprazole (PREVACID) 30 mg capsuleTake 1 capsule by mouth once daily.Disp: 30 capsuleRfl: 5 Prescriptions as of 02/12/2020 Sig: SERTRALINE 50 MG TABLET Take 2 tablets by mouth once * LANSOPRAZOLE 30 MG CAPSULE,DE* Take 1 capsule by mouth once * X BUSPIRONE 10 MG TABLET Take 1 tablet by mouth three * ALBUTEROL SULFATE HFA 90 MCG/* Inhale 2 Puffs as instructed * X CYCLOBENZAPRINE 10 MG TABLET Take 1 tablet by mouth once d * X MELOXICAM 15 MG TABLET Take 1 tablet by mouth once d* X TRAZODONE 50 MG TABLET Take 1 tablet by mouth at bed* ASPIRIN 81 MG TABLET,DELAYED * Take 1 tablet by mouth once d * LISINOPRIL 10 MG TABLET Take 1 tablet by mouth once d* ATORVASTATIN 80 MG TABLET Take 1 tablet by mouth daily * X CARVEDILOL 6.25 MG TABLET Take 1 tablet by mouth twice * X THIAMINE HCL (VITAMIN B1) 100* Take 1 tablet by mouth once d* FLUTICASONE PROPIONATE 50 MCG* Use 2 Sprays in each nostril * BENZONATATE 100 MG CAPSULE Take 2 capsules by mouth thre* PROBIOTIC COLON SUPPORT 1.5 B* Take by mouth. NITROGLYCERIN 0.4 MG SUBLINGU* Dissolve 1 tablet under the t * BUPROPION XL 300 MG 24 HR TAB Take 1 tablet by mouth once d* POLYETHYLENE GLYCOL 3350 17 G* Take 17 g by mouth once daily . MELATONIN 3 MG TABLET Take by mouth. NALTREXONE ER 380 MG INTRAMUS* Inject 380 mg intramuscularly * ACETAMINOPHEN 500 MG TABLET Take 1 tablet by mouth every * Medication notes this encounter NIZATIDINE 150 MG CAPSULE >> Vargas Jarquin, MSN RETAIL DEPARTMENT RESET.TRAWL NET MAKER 02/18/2020 3:09 PM Been on back order Problem List As Of Date 02/12/2020 Noted Resolved Moderate hypertension [I10] 08/24/2006 Anxiety and depression [F41.9, F32.9] 02/05/2014 Seasonal allergies [J30.2] 02/05/2014 Renal insufficiency [N28.9] 02/05/2014 History of skull fracture [Z87.81] 02/05/2014 Hypertriglyceridemia [E78.1] 02/05/2014 Chronic alcohol abuse [F10.10] 02/05/2014 Unilateral inguinal hernia without obstruction *07/09/2016 NSTEMI (non-ST elevated myocardial infarction) *11/29/2017 Presence of drug-eluting stent in left circumfl*11/29/2017 Acute right-sided low back pain without sciatic*03/16/2019 Bilateral carotid artery stenosis [I65.23] 01/14/2020 More... Prescriptions ordered this encounter Disp Refills Start End SERTRALINE 50 MG TABLET 60 t* 0 02/18/2020 Route: ORAL Sig: Take 2 tablets by mouth once daily. LANSOPRAZOLE 30 MG CAPSULE,DELAYED R* 30 c* 5 02/18/2020 Route: ORAL Sig: Take 1 capsule by mouth once daily. Medications Discontinued During This Encounter Prescriptions - Nizatidine (AXID) 150 mg capsule (Discontinued) Take 1 capsule by mouth twice daily as needed. - sertraline (ZOLOFT) 50 mg tablet (Discontinued) Take 2 tablets by mouth once daily. - omeprazole (PRILOSEC) 20 mg capsule (Discontinued) Take 1 capsule by mouth daily before breakfast. 1/2 hr befor e meal. Encounter Status:Closed by SHUBHAM BARRIOS LPN on 02/18/20 cnpn on 2020-01-29 [facility] (F[facility]) Normal 01-29-2020 [place] [facility] BETHANY MONTALVO ([id number]) 1965 M [place] Date Time Provider Department ([id number]) 01/29/20 KEREN KWON ([facility] During your visit today, we recorded the following informati on about you: Keren Kwon APRN.TRAWL NET MAKER 01/29/2020 5:14 PM Signed Can please let patient know that I received his MRI results. His brain shows no acute/wor risome findings. If he is still having trouble with the headaches, incoordination, memory loss, etc, then we definitely can have him see neurology for further evaluation. It does look like he also has some fluid in one of the sinuses on the right -- probably related to some chr onic right sinusitis. Does he still use the flonase spray? If this is bothersome, we can also have h im see an ENT to see if there are any other treatment recommendations. Lana Chicas MA, XIOMARA 02/01/2020 8:36 AM Signed Unable to reach patient . Left Vm to return call to office. Please read below and advise. XIOMARA De Anda LPN 02/03/2020 9:30 AM Signed MC message sent, awaiting response. Donna Richey LPN 02/04/2020 3:11 PM Signed TC to pt, notified of provid er instructions. He states ran out of Flonase about 2-3 months ago. He would be willing to s ENT. Consult pending, please review and advise. Also, he states he would like to wait for Neuro until he see's ENT. Donna Mancia MD 02/04/2020 3:46 PM Signed Referral placed . Melina Jenae Pss 02/12/2020 9:17 AM Signed Patient is scheduling with [facility].Melina Bolivarvaughn Pss Allergies As of Date: 01/29/2020 Noted Allergy Reaction SUDAFED (PSEUDOEPHEDRINE) 06/26/2016 14 - Other: See Comment s Comments: Prostate infection Date Reviewed: 12/25/2019 Reviewed by: Donna Richey LPN - Fully Assessed Reason for Visit: Results [95] Primary Visit Diagnosis:Chronic sinusitis, unspecified locat ion [J32.9] Order(s):CONSULT TO ENT [9008] Order #: [id number]: 1 FUT URE Prescriptions as of 01/29/2020 Sig: BUSPIRONE 10 MG TABLET Take 1 tablet by mouth three * NIZATIDINE 150 MG CAPSULE Take 1 capsule by mouth twice* CYCLOBENZAPRINE 10 MG TABLET Take 1 tablet by mouth once d* ALBUTEROL SULFATE HFA 90 MCG/* Inhale 2 Puffs as instructed * MELOXICAM 15 MG TABLET Take 1 tablet by mouth once d* TRAZODONE 50 MG TABLET Take 1 tablet by mouth at bed* ASPIRIN 81 MG TABLET,DELAYED * Take 1 tablet by mouth once d * AMLODIPINE 10 MG TABLET Take 1 tablet by mouth once d* CARVEDILOL 6.25 MG TABLET Take 1 tablet by mouth twice * LISINOPRIL 10 MG TABLET Take 1 tablet by mouth once d* SERTRALINE 50 MG TABLET Take 2 tablets by mouth once * THIAMINE HCL (VITAMIN B1) 100* Take 1 tablet by mouth once d * OMEPRAZOLE 20 MG CAPSULE,JAMILA* Take 1 capsule by mouth daily * ATORVASTATIN 80 MG TABLET Take 1 tablet by mouth daily * FLUTICASONE PROPIONATE 50 MCG* Use 2 Sprays in each nostril * BENZONATATE 100 MG CAPSULE Take 2 capsules by mouth thre* PROBIOTIC COLON SUPPORT 1.5 B* Take by mouth. NITROGLYCERIN 0.4 MG SUBLINGU* Dissolve 1 tablet under the t * BUPROPION XL 300 MG 24 HR TAB Take 1 tablet by mouth once d* POLYETHYLENE GLYCOL 3350 17 G* Take 17 g by mouth once daily . MELATONIN 3 MG TABLET Take by mouth. NALTREXONE ER 380 MG INTRAMUS* Inject 380 mg intramuscularly * ACETAMINOPHEN 500 MG TABLET Take 1 tablet by mouth every * Problem List As Of Date 01/29/2020 Noted Resolved Moderate hypertension [I10] 08/24/2006 Anxiety and depression [F41.9, F32.9] 02/05/2014 Seasonal allergies [J30.2] 02/05/2014 Renal insufficiency [N28.9] 02/05/2014 History of skull fracture [Z87.81] 02/05/2014 Hypertriglyceridemia [E78.1] 02/05/2014 Chronic alcohol abuse [F10.10] 02/05/2014 Unilateral inguinal hernia without obstruction *07/09/2016 NSTEMI (non-ST elevated myocardial infarction) *11/29/2017 Presence of drug-eluting stent in left circumfl*11/29/2017 Acute right-sided low back pain without sciatic*03/16/2019 Bilateral carotid artery stenosis [I65.23] 01/14/2020 More... Encounter Status:Closed by KEREN KWON TRAWL NET MAKER on 02/08/20 progress on 2020-01 PROGRESS HNO ID: [id number] Normal 01-28-2020 [facility] Author: Omega Ramirez (Rt) [place] ([id number]) Service: ? Author Type: Funeral Service Practitioner/Embalmer Type: Progress Notes Filed: 01/28/2020 2:52 PM Note Text: Radiology Service Progress Note PATIENT NAME: Bethany Montalvo DATE OF SERVICE: January 28, 2020 TIME: 2:51 PM PATIENT IDENTITY VERIFICATION COMPLETED USING TWO (2) IDENTI FIERS: Name and Date of confirmed by patient verbally. FALL SCREENING: Has the patient had 2 falls in the last year or 1 fall with injury or currently using an Ambulatory Assistive Devic e (Walker, Cane, Wheelchair, Crutches, etc.)? No PATIENT GENDER DATA: Male PATIENT RELEVANT IMPLANT DATA REVIEWED: Yes RADIOLOGY DEPARTMENT: MR; Exam(s) Completed: Head: Routine B rain PERIPHERAL IV DATA: Not applicable SIGNED BY: RT Ashley January 28, 2020 2:51 PM mri brain wo ivcon on 2020-01-28 MRI BRAIN WO * * *Final Report* * * Normal 2020 [facility] IVCON DATE OF EXAM: Jan 28 2020 2:55PM [place] ([id number]) WRM [id number] - MRI BRAIN WO IVCON / PROCEDURE REASON: multiple diagnoses * * * * Physician Interpretation * * * * EXAMINATION: MRI BRAIN WO IVCON CLINICAL HISTORY: Chronic mixed headache syndrome Cognitive impairment, mild, so stated TECHNIQUE: Routine noncontrast MRI protocol including diffus ion images. MQ: [id number] COMPARISON: None. RESULT: Acute Change: There is no evidence of restricted diffusion t o suggest an acute infarct. Hemorrhage: No evidence of prior parenchymal hemorrhage on t he gradient echo images. Mass Lesion/ Mass Effect: No evidence of an intracranial mas s or extra-axial fluid collection. No significant mass effect. Chronic Change: Scattered punctate foci of increased T2 and FLAIR signal are noted in the supratentorial white matter which is a nons pecific finding, but likely represents minimal chronic microvascular ischemia. Parenchyma: No significant volume loss for age. The brain pa renchyma is otherwise within normal limits of signal intensity and mo rphology. Ventricles: Normal caliber and morphology. Skull Base: Hypothalamic and pituitary region are grossly no rmal. Craniocervical junction is normal. No significant marrow rep lacement process. Vasculature: Major intracranial arterial structures, and dur al venous sinuses show typical flow void, suggesting patency by spin e cho criteria. Other: Nonspecific moderate right and minimal left retained mastoid fluid. The paranasal sinuses are clear. Degenerative changes left TMJ. The orbits and extracranial soft tissues are unremarkable. IMPRESSION: No evidence of an acute intracranial process or mass effect. Minimal nonspecific supratentorial white matter changes with in expected limits for age. Left TMJ degenerative arthropathy. Nonspecific right mastoid effusion. Ophthalmology Assistant: PSCB Transcribe Date/Time: Jan 28 2020 3:43P Dictated by : ANNIE MCGRAW MD This examination was interpreted and the report reviewed and electronically signed by: ANNIE MCGRAW MD on Jan 28 2020 3:46PM EST [id number] vitamin b12 on 2019 Cobalamin (Vitamin B12) 304 934-6082 pg/mL Normal 2019 [facility] [Mass/Vol] [place] ([id number]) Comment: Performed By: #### CBCDIF, C MP, LIPB, MG1, TSH, B12, HBA1C ####[facility] [id number], [place] [phone] tsh on 2020-01-07 TSH Qn 0.976 0.270-4.200 uU/mL Normal 01-07-2020 [facility] ([id number]) Comment: Performed By: #### CBCDIF, C MP, LIPB, MG1, TSH, B12, HBA1C ####[facility], [place] [phone] magnesium on 01-06 Magnesium [Mass/Vol] 2.0 1.7-2.3 mg/dL Normal 0 [facility] ([id number]) Comment: Performed By: #### CBCDIF, C MP, LIPB, MG1, TSH, B12, HBA1C ####[place] [id number], [place] [phone] lipid panel, basic on 2020-01-07 Cholesterol [Mass/Vol] 181 <200 mg/dL Normal 020 [facility] ([id number]) Comment: Result Comment: <200 mg/dL, Desirable 200-239 mg/dL, Borderline hi gh >239 mg/dL, High Performed By: #### CBCDIF, C MP, LIPB, MG1, TSH, B12, HBA1C ####[facility], [place] [phone] Cholesterol in HDL [Mass/Vol] 21 >39 mg/dL Low 01-07-2020 [facility] ([id number]) Comment: Result Comment: 40-59 mg/dL, Acceptable >59 mg/dL, High: Negative ri sk factor for coronary heart disease <40 mg/dL, Low: Positive ris k factor for coronary heart disease Performed By: #### CBCDIF, C MP, LIPB, MG1, TSH, B12, HBA1C ####[place] [id number], [place] [phone] Cholesterol in LDL 118 <100 mg/dL High 01-07-2020 [facility] [Mass/Vol] ([id number]) Comment: Result Comment: <100 mg/dL, Optimal 100-129 mg/dL, Near optimal/ above optimal 130-159 mg/dL, Borderline hi gh 160-189 mg/dL, High >189 mg/dL, Very high Secondary prevention optimal LDL Cholesterol levels are recommended to be < 70 mg/dL Performed By: #### CBCDIF, C MP, LIPB, MG1, TSH, B12, HBA1C ####[facility] [id number], [place] [phone] Fasting Time 14 hrs Normal 01-07-[address] [facility] ([id number]) Comment: Performed By: #### CBCDIF, C MP, LIPB, MG1, TSH, B12, HBA1C ####[facility], [place] [phone] LDL:HDL Ratio 5.62 <2.54 High 01-07-2020 [facility] (91961) Comment: Result Comment: Reference: 1. National Cholesterol Educ ation Program ATP III Guideline At-A-Glance Quick Desk Reference: National Heart, Lung, and Blood Sugar [place]. National Institutes of Health. 2001: NIH Publication No. 01-3305. 2. An International Atherosc lerosis Society position paper: global recommendations for the management of dyslipidemia: executive summary, Atherosclerosis. 2014: 232(2):410-413. Performed By: #### CBCDIF, C MP, LIPB, MG1, TSH, B12, HBA1C ####[facility] [address], [place] [phone] Non HDL Cholesterol 160 <130 mg/dL High 01-07-2020 [facility] (18000) Comment: Result Comment: <130 mg/dL, Optimal 130-159 mg/dL, Near optimal/ above optimal 160-189 mg/dL, Borderline hi gh 190-219 mg/dL, High >219 mg/dL, Very high Secondary prevention optimal non HDL Cholesterol levels are recommended to be < 100 mg/dL Performed By: #### CBCDIF, C MP, LIPB, MG1, TSH, B12, HBA1C ####[facility], [place] [phone] TC:HDL Ratio 8.62 <5.10 High 01-07-[address] [facility] (70203) Comment: Performed By: #### CBCDIF, C MP, LIPB, MG1, TSH, B12, HBA1C ####[place] [id number], [place] [phone] Triglyceride [Mass/Vol] 209 <150 mg/dL High 2019 [facility] (77963) Comment: Result Comment: <150 mg/dL, Normal 150-199 mg/dL, Borderline hi gh 200-499 mg/dL, High >499 mg/dL, Very high Performed By: #### CBCDIF, C MP, LIPB, MG1, TSH, B12, HBA1C ####[place] [address], [place] [phone] VLDL Cholesterol 42 <30 mg/dL High 01-07-2020 [facility] (53923) Comment: Performed By: #### CBCDIF, C MP, LIPB, MG1, TSH, B12, HBA1C ####[place] [address], [place] [phone] hemoglobin a1c on 2 HbA1c (Bld) [Mass fraction] 4.8 4.3-5.6 % Normal [facility] (62503) Comment: Result Comment: [place] Flora betes Association guidelines indicate that patients with HgbA1c in the range 5.7-6.4% are at increased risk for development of diabetes, and intervention by lifestyle modification may be beneficial. HgbA1c greater o r equal to 6.5% is considered diagnostic of diabetes. Performed By: #### CBCDIF, C MP, LIPB, MG1, TSH, B12, HBA1C ####[place] [address], [place] [phone] HbA1c (Bld) [Mass fraction] 91 mg/dL Normal [facility] (90102) Comment: Result Comment: eAG: (Estima gissel average glucose) is a calculated value from HgbA1c and is manufacturing sales representative of the average blood glucose level in the last 2-3 month period. Performed By: #### CBCDIF, C MP, LIPB, MG1, TSH, B12, HBA1C ####[place] [address], [place] [phone] comp metabolic panel on 2020-01-07 Albumin [Mass/Vol] 4.7 3.9-4.9 g/dL Normal 01-07-2020 [facility] (87347) Comment: Performed By: #### CBCDIF, C MP, LIPB, MG1, TSH, B12, HBA1C ####[place] [address] [place], [place] [phone] ALP [Catalytic activity/Vol] 63 38-113 U/L Normal 0 01-07-2020 [facility] (26027) Comment: Performed By: #### CBCDIF, C MP, LIPB, MG1, TSH, B12, HBA1C ####[place] [address], [place] [phone] ALT [Catalytic activity/Vol] 56 10-54 U/L High 0 01-07-2020 [facility] (92736) Comment: Performed By: #### CBCDIF, C MP, LIPB, MG1, TSH, B12, HBA1C ####[place] [address], [place] [phone] Anion gap [Moles/Vol] 14 9-18 mmol/L Normal 01-07-20 [facility] (53637) Comment: Performed By: #### CBCDIF, C MP, LIPB, MG1, TSH, B12, HBA1C ####[place] [id number], [place] [phone] AST [Catalytic activity/Vol] 46 14-40 U/L High 0 01-07-2020 [facility] (71721) Comment: Performed By: #### CBCDIF, C MP, LIPB, MG1, TSH, B12, HBA1C ####[facility], [place] [phone] Bilirubin [Mass/Vol] 0.4 0.2-1.3 mg/dL Normal 0 [facility] (25749) Comment: Performed By: #### CBCDIF, C MP, LIPB, MG1, TSH, B12, HBA1C ####[place] [id number], [place] [phone] Calcium [Mass/Vol] 9.6 8.5-10.2 mg/dL Normal 01-07-2020 [facility] (67929) Comment: Performed By: #### CBCDIF, C MP, LIPB, MG1, TSH, B12, HBA1C ####[place] [address] [place], [place] [phone] Chloride [Moles/Vol] 104 97-105 mmol/L Normal 0 [facility] (18072) Comment: Performed By: #### CBCDIF, C MP, LIPB, MG1, TSH, B12, HBA1C ####[facility], [place] [phone] CO2 [Moles/Vol] 23 22-30 mmol/L Normal 01-07-2020 [facility] (83245) Comment: Performed By: #### CBCDIF, C MP, LIPB, MG1, TSH, B12, HBA1C ####[facility], [place] [phone] Creatinine [Mass/Vol] 1.19 0.73-1.22 mg/dL Normal 01-07-20 20 [facility] (21299) Comment: Performed By: #### CBCDIF, C MP, LIPB, MG1, TSH, B12, HBA1C ####[place] [id number] [place], [place] [phone] eGFR- Amer. >60 Normal 01-07-2020 [facility] (03139) Comment: Performed By: #### CBCDIF, C MP, LIPB, MG1, TSH, B12, HBA1C ####[facility] [address] [place], [place] [phone] GFR/1.73 sq M predicted >60 mL/min/{1.73_m2} Normal 01-07-2020 [facility] among non-blacks MDRD [place] (83621) (S/P/Bld) [Vol rate/Area] Comment: Result Comment: eGFR (Estima gissel GFR) Units of measure: mL/min/1.73 meters squared eGFR is derived from the ree xpressed MDRD Study equation using the following parameters: serum creatinine, age, gender and race. The creatinine assay has been calibrated to be traceable to IDMS. An eGFR <60 mL/min/1.73m2 fo r >3 months is consistent with chronic kidney disease. Refer to KDOQI guidelines for clinical interpretation. In patients with unstable re nal function, e.g. those with acute kidney injury, the eGFR may not accurately reflect actual GFR. Performed By: #### CBCDIF, C MP, LIPB, MG1, TSH, B12, HBA1C ####[facility] [address] [place], [place] [phone] Glucose [Mass/Vol] 101 74-99 mg/dL High 01-07-2020 [facility] (28390) Comment: Result Comment: The [place] Diabetes Association (ADA) provides guidance for cutoff values for fasting glucose and random glucose. The ADA defines fasting as no caloric intake for at least 8 hours. Fas ting plasma glucose results between 100 to 125 mg/dL indicate increased risk for diabetes (prediabetes). Fasting plasma glucose resul ts greater than or equal to 126 mg/dL meet the criteria for diagnosis of diabetes. In the absence of unequivocal hyperglycemia, results should be confirmed by repeat testing. In a patient with classic s ymptoms of hyperglycemia or hyperglycemic crisis, random plasma glucose results greater than or equal to 200 mg/dL meet the criteria for diagnosis of diabetes. Reference: Standards of [facility] Care in Diabetes 2016, [place] Diabetes Association. Diabetes Care. 2016.39(Suppl 1). Performed By: #### CBCDIF, C MP, LIPB, MG1, TSH, B12, HBA1C ####[facility], [place] [phone] Potassium [Moles/Vol] 4.7 3.7-5.1 mmol/L Normal 01-07-20 [facility] (02163) Comment: Performed By: #### CBCDIF, C MP, LIPB, MG1, TSH, B12, HBA1C ####[place] [address], [place] [phone] Protein [Mass/Vol] 7.6 6.3-8.0 g/dL Normal 01-07-2020 [facility] (06099) Comment: Performed By: #### CBCDIF, C MP, LIPB, MG1, TSH, B12, HBA1C ####[place] [address], [place] [phone] Sodium [Moles/Vol] 141 136-144 mmol/L Normal 01-07-2020 [facility] (98557) Comment: Performed By: #### CBCDIF, C MP, LIPB, MG1, TSH, B12, HBA1C ####[place] [address], [place] [phone] Urea nitrogen [Mass/Vol] 19 9-24 mg/dL Normal 01-06 [facility] (89560) Comment: Performed By: #### CBCDIF, C MP, LIPB, MG1, TSH, B12, HBA1C ####[place] [address], [place] [phone] cbc and differential on 2020-01-07 Abs Baso <0.03 <0.11 Normal 01-07-2020 [facility] (62278) Comment: Performed By: #### CBCDIF, C MP, LIPB, MG1, TSH, B12, HBA1C ####[facility], [place] [phone] Abs [place] 0.46 <0.87 k/uL Normal 01-07-2020 [facility] (59816) Comment: Performed By: #### CBCDIF, C MP, LIPB, MG1, TSH, B12, HBA1C ####[facility], [place] [phone] Abs Neut 3.18 1.45-7.50 k/uL Normal 01-07-2020 [facility] (40619) Comment: Performed By: #### CBCDIF, C MP, LIPB, MG1, TSH, B12, HBA1C ####[place] [address], [place] [phone] Absolute nRBC <0.01 <0.01 Normal 01-07-2020 [facility] (05244) Comment: Performed By: #### CBCDIF, C MP, LIPB, MG1, TSH, B12, HBA1C ####[place] [address], [place] [phone] Basophils/100 WBC (Bld) 0.4 % Normal 2019 [facility] (37220) Comment: Performed By: #### CBCDIF, C MP, LIPB, MG1, TSH, B12, HBA1C ####[place] [address], [place] [phone] DTYPE Auto Diff Normal 01-07-2020 [facility] (70589) Comment: Performed By: #### CBCDIF, C MP, LIPB, MG1, TSH, B12, HBA1C ####[place] [address], [place] [phone] Eosinophils (Bld) [#/Vol] 0.13 <0.46 k/uL Normal 12-20 [facility] (37714) Comment: Performed By: #### CBCDIF, C MP, LIPB, MG1, TSH, B12, HBA1C ####[place] [address], [place] [phone] Eosinophils/100 WBC (Bld) 2.4 % Normal 12-20 [facility] (35401) Comment: Performed By: #### CBCDIF, C MP, LIPB, MG1, TSH, B12, HBA1C ####[facility] [address], [place] [phone] Erythrocyte distribution 12.8 11.5-15.0 % Normal 01-06 [facility] width (RBC) [Ratio] [place] (85364) Comment: Performed By: #### CBCDIF, C MP, LIPB, MG1, TSH, B12, HBA1C ####[facility] [address], [place] [phone] Hematocrit (Bld) [Volume 48.1 39.0-51.0 % Normal 01-06 [facility] fraction] [place] (04283) Comment: Performed By: #### CBCDIF, C MP, LIPB, MG1, TSH, B12, HBA1C ####[facility] [address], [place] [phone] Hemoglobin (Bld) 16.1 13.0-17.0 g/dL Normal 01-07-2020 [facility] [Mass/Vol] [place] (95916) Comment: Performed By: #### CBCDIF, C MP, LIPB, MG1, TSH, B12, HBA1C ####[facility] [address], [place] [phone] Lymphocytes (Bld) [#/Vol] 1.55 1.00-4.00 k/uL Normal 12-20 [facility] (86134) Comment: Performed By: #### CBCDIF, C MP, LIPB, MG1, TSH, B12, HBA1C ####[facility] [address], [place] [phone] Lymphocytes/100 WBC (Bld) 29.0 % Normal 12-20 [facility] (72711) Comment: Performed By: #### CBCDIF, C MP, LIPB, MG1, TSH, B12, HBA1C ####[facility]level[address] [place], [place] [phone] MCH (RBC) [Entitic mass] 30.4 26.0-34.0 pG Normal 01-06 [facility] (29482) Comment: Performed By: #### CBCDIF, C MP, LIPB, MG1, TSH, B12, HBA1C ####[place] [address]level[address] [place], [place] [phone] MCHC (RBC) [Mass/Vol] 33.5 30.5-36.0 g/dL Normal 01-07-20 [facility] (67831) Comment: Performed By: #### CBCDIF, C MP, LIPB, MG1, TSH, B12, HBA1C ####[place] [address] [place], [place] [phone] MCV (RBC) [Entitic vol] 90.8 80.0-100.0 fL Normal 01-06 [facility] (73509) Comment: Performed By: #### CBCDIF, C MP, LIPB, MG1, TSH, B12, HBA1C ####[facility], [place] [phone] Monocytes/100 WBC (Bld) 8.6 % Normal 2019 [facility] (79138) Comment: Performed By: #### CBCDIF, C MP, LIPB, MG1, TSH, B12, HBA1C ####[facility], [place] [phone] Neutrophils/100 WBC (Bld) 59.6 % Normal 12-20 [facility] (01100) Comment: Performed By: #### CBCDIF, C MP, LIPB, MG1, TSH, B12, HBA1C ####[facility] [place], [place] [phone] NRBCs 0.0 0 /100 WBC Normal 01-07-2020 [facility] (61835) Comment: Performed By: #### CBCDIF, C MP, LIPB, MG1, TSH, B12, HBA1C ####[facility] [address], [place] [phone] Platelet mean volume 10.0 9.0-12.7 fL Normal 0 [facility] (Bld) [Entitic vol] [place] (03513) Comment: Performed By: #### CBCDIF, C MP, LIPB, MG1, TSH, B12, HBA1C ####[facility] [address], [place] [phone] Platelets (Bld) [#/Vol] 183 150-400 k/uL Normal 2019 [facility] (13955) Comment: Performed By: #### CBCDIF, C MP, LIPB, MG1, TSH, B12, HBA1C ####[place] [address], [place] [phone] RBC (Bld) [#/Vol] 5.30 4.20-6.00 m/uL Normal 01-07-2020 [facility] (23692) Comment: Performed By: #### CBCDIF, C MP, LIPB, MG1, TSH, B12, HBA1C ####[facility] [address], [place] [phone] WBC (Bld) [#/Vol] 5.34 3.70-11.00 k/uL Normal 01-07-2020 [facility] (06847) Comment: Performed By: #### CBCDIF, C MP, LIPB, MG1, TSH, B12, HBA1C ####[facility] [address], [place] [phone] progress on 2019-12 PROGRESS HNO ID: [id number] Normal 12-25-2019 [facility] Author: Keren (Firearms Specialist) anne [place] ([id number]) Service: ? Author Type: Nurse Practitioner Type: Progress Notes Filed: 12/25/2019 2:51 PM Note Text: Chief Complaint Patient presents with: Recheck: headache- not getting any better, no loss of vision , states head feels hot inside, This Team Access Model visit is a virtual encounter. It requ ired patient-provider interaction for the medical decision making as documented below. Patient was offered a virtual/telemedicine appointmen t in lieu of an office visit due to recommendations to reduce patient exp osure to COVID-19. HIPAA secured video was used for evaluation of this patient. Patient agrees to the visit: Yes Patient Location: 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 Headaches started about 5 weeks ago. Describes pain in the left side of the head. Reports this is the same side that he had a skull fracture in the 's. Constant headache with episodes of sharpness in the left. Pressure. Feels hot inside. Refers losing balance when he walks. Severe memory loss. I can't remember things that happened 1 5 minutes ago. Refers that he has trouble remember distance things, a s well. Denies any changes with his vision, but sometimes a little b lurry and eyes will water. He has an eye appt scheduled for early January. Refers that he does have light sensitivity. Refers feels nauseated almost all of the time. Refers consta nt. No vomiting. Takes tylenol for headaches. He is taking it every 8-10 hour s. He is taking daily. Refers that he did have a syncopal event. Refers it happened about a week prior to the covid test. The headache started afterwards. Refers he got up to walk to the refrigerator and he felt beg an with symptoms and passed out. Uncertain if he hit his head. Refers that he still has some chest burning and throat is so re. Occasionally chest pain. He thought previously that this was a lung issue, but since his chest xray is normal, now questioning i f it could be cardiac. He has a hx of a NSTEMI in 2018 with a JUSTIN to the left circ. He followed with [facility]. No palpitations. No swelling in the feet of ankles. No orthopnea. Has not seen cardiology in 1 1/2 years. Refers that he is very tired and weak. No energy. Some SOB. Sleeping a lot. Refers weight up 20#. Reports that he does snore loudly. Refers that he has been told in the past that he has had obs erved sleep apnea. He has never had a sleep study. He is attending virtual AA meetings. Refers that he has been clean for 6 months. Past medical history, appointments, medications, allergies r eviewed 12/25/2019 Previous Medical History PAST MEDICAL HISTORY Diagnosis Date - Alcohol abuse - CSF abnormal - GERD (gastroesophageal reflux disease) - HTN (hypertension) - Syncope Previous Surgical History PAST SURGICAL HISTORY Procedure Laterality Date - COLONOSCOP W/ OR W/O BRSH SPEC 01/12/2019 Colonoscopy - COLONOSCOPY BX SINGLE/MULTI 01/12/2019 - CRANIO/MAXILLO-FACIAL SURGERY 1989 orbital blow out fracture/ [place] - EGD W/O OR W/BRUSH/WASH 01/12/2019 EGD - PTCA SNGL VSSL LC 11/21/2017 JUSTIN left circ - TONSILLECTOMY HX - TREAT SHOULDERBLADE FRACTURE - UPPER GI ENDOSCPY, W/BIOPSY, SNGL OR MULT 01/12/2019 Family History FAMILY HISTORY Problem Relation Age of Onset - Psychiatry Mother - Heart Mother ME 53 - Heart Father ME 51 - Colon Cancer Father Patient Allergies ALLERGIES Allergen Reactions - Sudafed [Pseudoephe* Other: See Comments Prostate infection Current Medications Current Outpatient Medications on File Prior to Visit Medication Sig - busPIRone (BUSPAR) 10 mg tablet Take 1 tablet by mouth thr ee times daily. - Nizatidine (AXID) 150 mg capsule Take 1 capsule by mouth t wice daily as needed. - cyclobenzaprine (FLEXERIL) 10 mg tablet Take 1 tablet by m outh once daily as needed. - albuterol HFA (VENTOLIN HFA) 90 mcg/actuation inhaler Inha le 2 Puffs as instructed every 4 hours as needed for Wheezing/Shortness of Breath. - meloxicam (MOBIC) 15 mg tablet Take 1 tablet by mouth once daily. With food. - traZODone (DESYREL) 50 mg tablet Take 1 tablet by mouth at bedtime as needed. - aspirin, enteric coated (ECOTRIN LOW STRENGTH) 81 mg EC ta blet Take 1 tablet by mouth once daily. - amLODIPine (NORVASC) 10 mg tablet Take 1 tablet by mouth o nce daily. - carvedilol (COREG) 6.25 mg tablet Take 1 tablet by mouth t wice daily. - lisinopril (ZESTRIL, PRINIVIL) 10 mg tablet Take 1 tablet by mouth once daily. - sertraline (ZOLOFT) 50 mg tablet Take 2 tablets by mouth o nce daily. - thiamine (VITAMIN B1) 100 mg tablet Take 1 tablet by mouth once daily. - omeprazole (PRILOSEC) 20 mg capsule Take 1 capsule by mout h daily before breakfast. 1/2 hr before meal. - atorvastatin (LIPITOR) 80 mg tablet Take 1 tablet by mouth daily at bedtime. - fluticasone (FLONASE) 50 mcg/actuation nasal spray Use 2 S prays in each nostril once daily. Rinse mouth after use. - benzonatate (TESSALON PERLE) 100 mg capsule Take 2 capsule s by mouth three times daily as needed. - L. gasseri-B. bifidum-B longum (PROBIOTIC COLON SUPPORT) 1 .5 billion cell cap Take by mouth. - nitroglycerin sublingual (NITROQUICK) 0.4 mg SL tablet Dis solve 1 tablet under the tongue as needed. FOR CHEST PAIN. IF NO RELIEF KRISHNA L 911 - buPROPion XL (WELLBUTRIN XL) 300 mg 24 hr tablet Take 1 ta blet by mouth once daily. - polyethylene glycol 3350 (MIRALAX) 17 gram/dose powder José Antonio e 17 g by mouth once daily. - melatonin 3 mg tablet Take by mouth. - naltrexone ER (VIVITROL) 380 mg injection Inject 380 mg in tramuscularly one time only. - acetaminophen (TYLENOL EXTRA STRENGTH) 500 mg tablet Take 1 tablet by mouth every 6 hours as needed for Pain. No current facility-administered medications on file prior t o visit. Social History Social History Tobacco Use - Smoking status: Former Smoker Packs/day: 0.50 Start date: 12/30/1983 Last attempt to quit: 05/30/2014 Years since quittin.5 - Smokeless tobacco: Former User Types: Snuff - Tobacco comment: Very few, very infrequently. Father smoke d in childhood home. Substance Use Topics - Alcohol use: Yes Alcohol/week: 210.0 standard drinks Types: 84 Cans of Beer (12oz) per week Frequency: Monthly or less Drinks per session: 10 or more Binge frequency: Less than monthly Comment: Binge drinking at times, worse with stress. - Drug use: Yes Comment: Occassional marijuana, 03/2014. Huffed spray paint and glue briefly, ages 8-9. Whippets in mid to late teens. TO EXAM: There were no vitals taken for this visit. Limited exam as visit was completed over the virtual platfor m. Virtual visit completed using video, limited exam completed. Patient sounds or appears ill: No General Appearance: Well appearing, alert, in no acute distr ess, well-hydrated, well nourished. Skin: Skin color normal Head: Normocephalic. No facial swelling or redness. EENT: Eyes nonreddened. No discharge. External ears nonredde jeff and no swelling. Neck: No mass or lesions. No swelling. FROM Patient is not able to speak in complete sentences: No Patient has labored breathing: No. Patient is audibly coughing: No Psych: Attitude - cooperative, easily engaged in conversatio n Affect - Euthymic, normal mood Mental status: Alert. Speech is clear and fluent with good r epetition, comprehension Appearance - Normal hygiene and grooming appropriate Coordination: No abnormal or extraneous movements. Gait/Stance: Posture is normal. Health Maintenance List HIV SCREENING due on 1984 BP CONTROLLED (<130/80) due on 1984 LDL CHOLESTEROL due on 09/30/2019 SHINGRIX VACCINE(2 of 2) due on 11/10/2019 ANNUAL PCP TEAM CHRONIC DISEASE VISIT due on 11/30/2020 DIABETES SCREEN due on 10/28/2021 LIPID SCREEN due on 09/30/2023 COLORECTAL CANCER SCREENING,SEE MODIFIER due on 01/13/2024 DTAP,TDAP,TD(2 - Td) due on 07/10/2026 ONE PNEUMOVAX PRIOR TO AGE 65 Completed INFLUENZA Completed Data reviewed Last 5 Encounter BP Readings: Date: BP: 09/07/2019 122/80 07/23/2019 138/94 06/12/2019 149/93[Shane BP[ 05/28/2019 215/128 03/03/2019 133/73 BMI Readings from Last 5 Encounters: 09/07/19 : 32.46 kg/m? 07/23/19 : 31.85 kg/m? 06/12/19 : 33.58 kg/m? 05/28/19 : 32.49 kg/m? 03/03/19 : 31.71 kg/m? Last 5 Encounter Wt Readings: Date: Wt: 09/07/2019 102.6 kg (226 lb 3.2 oz) 07/23/2019 100.7 kg (222 lb) 06/12/2019 106.1 kg (234 lb) 05/28/2019 102.7 kg (226 lb 6.4 oz) 03/03/2019 100.2 kg (221 lb) Medication and allergy list reviewed, reconciled and updated 12/25/2019 ASSESSMENT/PLAN: 1. Chronic mixed headache syndrome - ICD9: 339.89, ICD10: G4 4.89 (primary diagnosis) + headache that reported started after a fall. + photosensitivity. + incoordination/ballance issues. + memory issues. Hx of skull fx. Will get MRI of brain. - MRI BRAIN WO IVCON - US CAROTID ARTERIES [facility] 2. Cognitive impairment, mild, so stated - ICD9: 331.83, ICD 10: G31.84 - MRI BRAIN WO IVCON - CBC + DIFF - COMP METABOLIC PANEL - TSH BLD - VITAMIN B12 BLOOD 3. Syncope, unspecified syncope type - ICD9: 780.2, ICD10: R 55 Will get carotid duplex. Follow-up with cardiology, as well. - US CAROTID ARTERIES [facility] - CBC + DIFF - COMP METABOLIC PANEL 4. Fatigue, unspecified type - ICD9: 780.79, ICD10: R53.83 Reported snores loudly and will wake up gasping. Refers that he has been told in the past that he quits breat judi in sleep. - HOME SLEEP APNEA TEST (HSAT) - CBC + DIFF - COMP METABOLIC PANEL - TSH BLD - HGB A1C 5. Snoring - ICD9: 786.09, ICD10: R06.83 Weight increasing - HOME SLEEP APNEA TEST (HSAT) 6. Hypertension, essential - ICD9: 401.9, ICD10: I10 - COMP METABOLIC PANEL 7. GERD without esophagitis - ICD9: 530.81, ICD10: K21.9 - MAGNESIUM BLD 8. Chest tightness - ICD9: 786.59, ICD10: R07.89 Phone call by nursing to [facility]. Appt scheduled for 12/31/2019. Discussed with patient to proceed to ER with any chest disco mfort/SOB. 9. Hypertriglyceridemia - ICD9: 272.1, ICD10: E78.1 - COMP METABOLIC PANEL - HGB A1C - LIPID PANEL BASIC Discussed treatment plan and patient voices understanding. Patient's questions answered appropriately. Medications and potential side effects were discussed and avel lopez voices understanding. VENKAT Armendariz on 2019-12-25 RENE Telephone (FAMPWS) Normal 12-25-2019 [place] [facility] BETHANY MONTALVO ([id number]) 1965 M [place] Date Time Provider Department ([id number]) 12/25/19 KEREN KWON) [facility] During your visit today, we recorded the following informati on about you: Keren Kwon APRN.CNP 12/25/2019 2:52 PM Signed Can we please help patient get set up for the following: MRI Carotid duplex Home sleep study. Thanks, VENKAT Armendariz 12/25/2019 3:15 PM Signed 1st attempt left message for patient to call back and luzma silva. Daisy Ying 01/08/2020 11:52 AM Signed 2nd attempt left message to call office back. Keren Kwon APRN.CNP 01/19/2020 10:17 AM Signed Had scheduled. Keren Kwon APRN.CNP Allergies As of Date: 12/25/2019 Noted Allergy Reaction SUDAFED (PSEUDOEPHEDRINE) 06/26/2016 14 - Other: See Comment s Comments: Prostate infection Date Reviewed: 12/25/2019 Reviewed by: Donna Richey LPN - Fully Assessed Reason for Visit: scheduling [Other] Prescriptions as of 12/25/2019 Sig: BUSPIRONE 10 MG TABLET Take 1 tablet by mouth three * NIZATIDINE 150 MG CAPSULE Take 1 capsule by mouth twice* CYCLOBENZAPRINE 10 MG TABLET Take 1 tablet by mouth once d* ALBUTEROL SULFATE HFA 90 MCG/* Inhale 2 Puffs as instructed * MELOXICAM 15 MG TABLET Take 1 tablet by mouth once d* TRAZODONE 50 MG TABLET Take 1 tablet by mouth at bed* ASPIRIN 81 MG TABLET,DELAYED * Take 1 tablet by mouth once d * AMLODIPINE 10 MG TABLET Take 1 tablet by mouth once d* CARVEDILOL 6.25 MG TABLET Take 1 tablet by mouth twice * LISINOPRIL 10 MG TABLET Take 1 tablet by mouth once d* SERTRALINE 50 MG TABLET Take 2 tablets by mouth once * THIAMINE HCL (VITAMIN B1) 100* Take 1 tablet by mouth once d * OMEPRAZOLE 20 MG CAPSULE,JAMILA* Take 1 capsule by mouth daily * ATORVASTATIN 80 MG TABLET Take 1 tablet by mouth daily * FLUTICASONE PROPIONATE 50 MCG* Use 2 Sprays in each nostril * BENZONATATE 100 MG CAPSULE Take 2 capsules by mouth thre* PROBIOTIC COLON SUPPORT 1.5 B* Take by mouth. NITROGLYCERIN 0.4 MG SUBLINGU* Dissolve 1 tablet under the t * BUPROPION XL 300 MG 24 HR TAB Take 1 tablet by mouth once d* POLYETHYLENE GLYCOL 3350 17 G* Take 17 g by mouth once daily . MELATONIN 3 MG TABLET Take by mouth. NALTREXONE ER 380 MG INTRAMUS* Inject 380 mg intramuscularly * ACETAMINOPHEN 500 MG TABLET Take 1 tablet by mouth every * Problem List As Of Date 12/25/2019 Noted Resolved Moderate hypertension [I10] 08/24/2006 Anxiety and depression [F41.9, F32.9] 02/05/2014 Seasonal allergies [J30.2] 02/05/2014 Renal insufficiency [N28.9] 02/05/2014 History of skull fracture [Z87.81] 02/05/2014 Hypertriglyceridemia [E78.1] 02/05/2014 Chronic alcohol abuse [F10.10] 02/05/2014 Unilateral inguinal hernia without obstruction *07/09/2016 NSTEMI (non-ST elevated myocardial infarction) *11/29/2017 Presence of drug-eluting stent in left circumfl*11/29/2017 Acute right-sided low back pain without sciatic*03/16/2019 Encounter Status:Closed by KEREN KWON CNP on 01/19/20 CNPN Telephone (FAMPWS) Normal 12-25-2019 [place] [facility] BETHANY MONTALVO ([id number]) 1965 M [facility] Time Provider Department ([id number]) 12/25/19 KEREN KWON ([employer]) BG During your visit today, we recorded the following informati on about you: Keren Kwon APRN.MAIA 12/25/2019 1:38 PM Signed Bethany has been having some symptoms of chest discomfort, SOB, fatigue. He has a hx of ME two years ago with stent. Known to Dr Sanjeev Noyola. Can we please try to get him re-set up. Donna Richey LPN 12/25/2019 2:20 PM Signed TC to [facility], spoke with Phyllis. Lloyd he states pt follows with Dr. Martin, transferred to [facility]. Appt scheduled with Dr. Martin for December 30 @ 2:45pm. Pt notified. Donna Richey LPN Allergies As of Date: 12/25/2019 Noted Allergy Reaction SUDAFED (PSEUDOEPHEDRINE) 06/26/2016 14 - Other: See Comment s Comments: Prostate infection Date Reviewed: 12/25/2019 Reviewed by: Donna Richey LPN - Fully Assessed Reason for Visit: Appointment [186] Prescriptions as of 12/25/2019 Sig: BUSPIRONE 10 MG TABLET Take 1 tablet by mouth three * NIZATIDINE 150 MG CAPSULE Take 1 capsule by mouth twice* CYCLOBENZAPRINE 10 MG TABLET Take 1 tablet by mouth once d* ALBUTEROL SULFATE HFA 90 MCG/* Inhale 2 Puffs as instructed * MELOXICAM 15 MG TABLET Take 1 tablet by mouth once d* TRAZODONE 50 MG TABLET Take 1 tablet by mouth at bed* ASPIRIN 81 MG TABLET,DELAYED * Take 1 tablet by mouth once d * AMLODIPINE 10 MG TABLET Take 1 tablet by mouth once d* CARVEDILOL 6.25 MG TABLET Take 1 tablet by mouth twice * LISINOPRIL 10 MG TABLET Take 1 tablet by mouth once d* SERTRALINE 50 MG TABLET Take 2 tablets by mouth once * THIAMINE HCL (VITAMIN B1) 100* Take 1 tablet by mouth once d * OMEPRAZOLE 20 MG CAPSULE,JAMILA* Take 1 capsule by mouth daily * ATORVASTATIN 80 MG TABLET Take 1 tablet by mouth daily * FLUTICASONE PROPIONATE 50 MCG* Use 2 Sprays in each nostril * BENZONATATE 100 MG CAPSULE Take 2 capsules by mouth thre* PROBIOTIC COLON SUPPORT 1.5 B* Take by mouth. NITROGLYCERIN 0.4 MG SUBLINGU* Dissolve 1 tablet under the t * BUPROPION XL 300 MG 24 HR TAB Take 1 tablet by mouth once d* POLYETHYLENE GLYCOL 3350 17 G* Take 17 g by mouth once daily . MELATONIN 3 MG TABLET Take by mouth. NALTREXONE ER 380 MG INTRAMUS* Inject 380 mg intramuscularly * ACETAMINOPHEN 500 MG TABLET Take 1 tablet by mouth every * Problem List As Of Date 12/25/2019 Noted Resolved Moderate hypertension [I10] 08/24/2006 Anxiety and depression [F41.9, F32.9] 02/05/2014 Seasonal allergies [J30.2] 02/05/2014 Renal insufficiency [N28.9] 02/05/2014 History of skull fracture [Z87.81] 02/05/2014 Hypertriglyceridemia [E78.1] 02/05/2014 Chronic alcohol abuse [F10.10] 02/05/2014 Unilateral inguinal hernia without obstruction *07/09/2016 NSTEMI (non-ST elevated myocardial infarction) *11/29/2017 Presence of drug-eluting stent in left circumfl*11/29/2017 Acute right-sided low back pain without sciatic*03/16/2019 Encounter Status:Closed by DONNA RICHEY LPN on 12/25/19 progress on 2019-11 PROGRESS HNO ID: [id number] Normal 12-08-2019 [facility] Author: Momo Wilson [place] Service: ? ([id number]) Author Type: ? Type: Progress Notes Filed: 12/08/2019 10:08 AM Note Text: [id number] Unable to reach pt Left Voice Message-Monitoring complete Routed to PCP for follow up Ruby, this is the [facility] calling. We are sorry we missed you, but your care is important to us . We would like to follow up on your MyChart [facility] [employer] re sponse. Please take a moment to complete the questionnaire daily. If any of your symptoms have worsened, please call you PCP o ffice to discuss. [facility] and NON [facility] patients may call: ? [facility] Nurse radiation oncology nurse at [phone] ? Their PCP Office Caregivers may call: ? [facility] Employee Hotline: [phone] ? [facility] Employee Boost appointment for 11/02 emotional support: [phone] If you are finding it more difficult to breathe, or more philomena rt of breath when walking or climbing stairs, please go to the nearest ED . SIGNATURE: Momo Wilson PATIENT NAME: Bethany Montalvo DATE: December 08, 2019 TIME: 10:06 AM cnptoutreach on CNPTOUTREACH Patient Outreach (EXEPMN) Normal 0 12-08-2019 [place] [facility] BETHANY MONTALVO ([id number]) 1965 [facility] Time Provider Department ([id number]) 12/08/19 MOMO WILSON (RN) EXEPMN During your visit today, we recorded the following informati on about you: Momo Wilson 12/08/2019 10:08 AM Signed [id number] Unable to reach pt Left Voice Message-Monitoring complete Routed to PCP for follow up Ruby, this is the [facility] calling. We are sorry we missed you, but your care is important to us . We would like to follow up on your MyChart [facility] [employer] re sponse. Please take a moment to complete the questionnaire daily. If any of your symptoms have worsened, please ca ll you PCP office to discuss. [facility] and NON [facility] patients may call: ? [facility] Nurse radiation oncology nurse at [phone] ? Their PCP Office Caregivers may call: ? [facility] Employee Hotline: [phone] ? [facility] Employee Boost appointment for 11/02 emotional support: [phone] If you are finding it more difficult to breathe, or more short of breath when walking or climbing stairs, please go to the nearest ED. SIGNATURE: Momo Wilson PATIENT NAME: Bethany Montalvo DATE: December 08, 2019 TIME: 10:06 AM Allergies As of Date: 12/08/2019 Noted Allergy Reaction SUDAFED (PSEUDOEPHEDRINE) 06/26/2016 14 - Other: See Comment s Comments: Prostate infection Date Reviewed: 09/07/2019 Reviewed by: Kerry Patel - Fully Assessed Reason for Visit: Covid Follow Up [2584] Cmt: Suspected, Day 14, Monitoring Co mplete Prescriptions as of 12/08/2019 Sig: BUSPIRONE 10 MG TABLET Take 1 tablet by mouth three * NIZATIDINE 150 MG CAPSULE Take 1 capsule by mouth twice* CYCLOBENZAPRINE 10 MG TABLET Take 1 tablet by mouth once d* ALBUTEROL SULFATE HFA 90 MCG/* Inhale 2 Puffs as instructed * MELOXICAM 15 MG TABLET Take 1 tablet by mouth once d* TRAZODONE 50 MG TABLET Take 1 tablet by mouth at bed* ASPIRIN 81 MG TABLET,DELAYED * Take 1 tablet by mouth once d * AMLODIPINE 10 MG TABLET Take 1 tablet by mouth once d* CARVEDILOL 6.25 MG TABLET Take 1 tablet by mouth twice * LISINOPRIL 10 MG TABLET Take 1 tablet by mouth once d* SERTRALINE 50 MG TABLET Take 2 tablets by mouth once * THIAMINE HCL (VITAMIN B1) 100* Take 1 tablet by mouth once d * OMEPRAZOLE 20 MG CAPSULE,JAMILA* Take 1 capsule by mouth daily * ATORVASTATIN 80 MG TABLET Take 1 tablet by mouth daily * FLUTICASONE PROPIONATE 50 MCG* Use 2 Sprays in each nostril * BENZONATATE 100 MG CAPSULE Take 2 capsules by mouth thre* PROBIOTIC COLON SUPPORT 1.5 B* Take by mouth. NITROGLYCERIN 0.4 MG SUBLINGU* Dissolve 1 tablet under the t * BUPROPION XL 300 MG 24 HR TAB Take 1 tablet by mouth once d* POLYETHYLENE GLYCOL 3350 17 G* Take 17 g by mouth once daily . MELATONIN 3 MG TABLET Take by mouth. NALTREXONE ER 380 MG INTRAMUS* Inject 380 mg intramuscularly * ACETAMINOPHEN 500 MG TABLET Take 1 tablet by mouth every * Problem List As Of Date 12/08/2019 Noted Resolved Moderate hypertension [I10] 08/24/2006 Anxiety and depression [F41.9, F32.9] 02/05/2014 Seasonal allergies [J30.2] 02/05/2014 Renal insufficiency [N28.9] 02/05/2014 History of skull fracture [Z87.81] 02/05/2014 Hypertriglyceridemia [E78.1] 02/05/2014 Chronic alcohol abuse [F10.10] 02/05/2014 Unilateral inguinal hernia without obstruction *07/09/2016 NSTEMI (non-ST elevated myocardial infarction) *11/29/2017 Presence of drug-eluting stent in left circumfl*11/29/2017 Acute right-sided low back pain without sciatic*03/16/2019 Encounter Status:Closed by MOMO WILSON on 12/08/19 cnpn on 2019-12-08 [facility] ([facility]) Normal 12-08-2019 [place] [facility] BETHANY MONTALVO ([id number]) 1965 [facility] Date Time Provider Department ([id number]) 12/08/19 KEREN KWON ([facility]) FAMPWS During your visit today, we recorded the following informati on about you: Rossana Jain RN 12/08/2019 8:55 AM Signed [facility] scheduling called, verified pt by name and birthdate. Pt is at their facility for COVID 19 test and they need an orde r. Printed order and faxed to [phone]. Rossana Jain RN Allergies As of Date: 12/08/2019 Noted Allergy Reaction SUDAFED (PSEUDOEPHEDRINE) 06/26/2016 14 - Other: See Comment s Comments: Prostate infection Date Reviewed: 09/07/2019 Reviewed by: Kerry Patel - Fully Assessed Reason for Visit: Orders [681] Prescriptions as of 12/08/2019 Sig: BUSPIRONE 10 MG TABLET Take 1 tablet by mouth three * NIZATIDINE 150 MG CAPSULE Take 1 capsule by mouth twice* CYCLOBENZAPRINE 10 MG TABLET Take 1 tablet by mouth once d* ALBUTEROL SULFATE HFA 90 MCG/* Inhale 2 Puffs as instructed * MELOXICAM 15 MG TABLET Take 1 tablet by mouth once d* TRAZODONE 50 MG TABLET Take 1 tablet by mouth at bed* ASPIRIN 81 MG TABLET,DELAYED * Take 1 tablet by mouth once d * AMLODIPINE 10 MG TABLET Take 1 tablet by mouth once d* CARVEDILOL 6.25 MG TABLET Take 1 tablet by mouth twice * LISINOPRIL 10 MG TABLET Take 1 tablet by mouth once d* SERTRALINE 50 MG TABLET Take 2 tablets by mouth once * THIAMINE HCL (VITAMIN B1) 100* Take 1 tablet by mouth once d * OMEPRAZOLE 20 MG CAPSULE,JAMILA* Take 1 capsule by mouth daily * ATORVASTATIN 80 MG TABLET Take 1 tablet by mouth daily * FLUTICASONE PROPIONATE 50 MCG* Use 2 Sprays in each nostril * BENZONATATE 100 MG CAPSULE Take 2 capsules by mouth thre* PROBIOTIC COLON SUPPORT 1.5 B* Take by mouth. NITROGLYCERIN 0.4 MG SUBLINGU* Dissolve 1 tablet under the t * BUPROPION XL 300 MG 24 HR TAB Take 1 tablet by mouth once d* POLYETHYLENE GLYCOL 3350 17 G* Take 17 g by mouth once daily . MELATONIN 3 MG TABLET Take by mouth. NALTREXONE ER 380 MG INTRAMUS* Inject 380 mg intramuscularly * ACETAMINOPHEN 500 MG TABLET Take 1 tablet by mouth every * Problem List As Of Date 12/08/2019 Noted Resolved Moderate hypertension [I10] 08/24/2006 Anxiety and depression [F41.9, F32.9] 02/05/2014 Seasonal allergies [J30.2] 02/05/2014 Renal insufficiency [N28.9] 02/05/2014 History of skull fracture [Z87.81] 02/05/2014 Hypertriglyceridemia [E78.1] 02/05/2014 Chronic alcohol abuse [F10.10] 02/05/2014 Unilateral inguinal hernia without obstruction *07/09/2016 NSTEMI (non-ST elevated myocardial infarction) *11/29/2017 Presence of drug-eluting stent in left circumfl*11/29/2017 Acute right-sided low back pain without sciatic*03/16/2019 Encounter Status:Closed by ROSSANA JAIN RN on 12/08/19 progress on 2019-11 PROGRESS HNO ID: [id number] Normal 12-03-2019 [facility] Author: Momo Wilson [place] Service: ? ([id number]) Author Type: ? Type: Progress Notes Filed: 12/03/2019 11:02 AM Note Text: Summary: Suspect Covid, Intake attempt x 2 [id number] Intake attempt x 2, will attempt call back on 12/07 (Day 14) Voice Message [employer], this is the [facility] calling. We are sorry we missed you, but your care is important to us . We would like to follow up on your MyChart [facility] [employer] [place]. Please take a moment to complete the questionnaire daily. If any of your symptoms have worsened, please call you PCP o ffice to discuss. [facility] and NON [facility]CF patients may call: ? [facility] Nurse radiation oncology nurse at [phone] ? Their PCP Office Caregivers may call: ? [facility] Employee Hotline: [phone] ? [facility] Employee Boost appointment for 11/02 emotional support: [phone] If you are finding it more difficult to breathe, or more philomena rt of breath when walking or climbing stairs, please go to the nearest ED . SIGNATURE: Momo Wilson PATIENT NAME: Bethany Montalvo DATE: December 03, 2019 TIME: 10:59 AM cnptoutreach on CNPTOUTREACH Patient Outreach (EXEPMN) Normal 0 12-03-2019 [place] [facility] BETHANY MONTALVO ([id number]) 1965 M [facility] Time Provider Department ([id number]) 12/03/19 MOMO WILSON (YONI) EXEPMN During your visit today, we recorded the following informati on about you: Momo Wilson 12/03/2019 11:02 AM Signed [id number] Intake attempt x 2, will attempt call back on 12/07 (Day 14) Voice Message Ruby, this is the [facility] calling. We are sorry we missed you, but your care is important to us . We would like to follow up on your MyChart [facility] [employer] [place]. Please take a moment to complete the questionnaire daily. If any of your symptoms have worsened, please ca ll you PCP office to discuss. [facility] and NON [facility] patients may call: ? [facility] Nurse radiation oncology nurse at [phone] ? Their PCP Office Caregivers may call: ? [facility] Employee Hotline: [phone] ? [facility] Employee Boost appointment for 11/02 emotional support: [phone] If you are finding it more difficult to breathe, or more short of breath when walking or climbing stairs, please go to the nearest ED. SIGNATURE: Momo Wilson PATIENT NAME: Bethany Montalvo DATE: December 03, 2019 TIME: 10:59 AM Allergies As of Date: 12/03/2019 Noted Allergy Reaction SUDAFED (PSEUDOEPHEDRINE) 06/26/2016 14 - Other: See Comment s Comments: Prostate infection Date Reviewed: 09/07/2019 Reviewed by: Kerry Patel - Fully Assessed Reason for Visit: Covid Follow Up [1686] Cmt: Suspect, Intake Prescriptions as of 12/03/2019 Sig: BUSPIRONE 10 MG TABLET Take 1 tablet by mouth three * NIZATIDINE 150 MG CAPSULE Take 1 capsule by mouth twice* CYCLOBENZAPRINE 10 MG TABLET Take 1 tablet by mouth once d* ALBUTEROL SULFATE HFA 90 MCG/* Inhale 2 Puffs as instructed * MELOXICAM 15 MG TABLET Take 1 tablet by mouth once d* TRAZODONE 50 MG TABLET Take 1 tablet by mouth at bed* ASPIRIN 81 MG TABLET,DELAYED * Take 1 tablet by mouth once d * AMLODIPINE 10 MG TABLET Take 1 tablet by mouth once d* CARVEDILOL 6.25 MG TABLET Take 1 tablet by mouth twice * LISINOPRIL 10 MG TABLET Take 1 tablet by mouth once d* SERTRALINE 50 MG TABLET Take 2 tablets by mouth once * THIAMINE HCL (VITAMIN B1) 100* Take 1 tablet by mouth once d * OMEPRAZOLE 20 MG CAPSULE,JAMILA* Take 1 capsule by mouth daily * ATORVASTATIN 80 MG TABLET Take 1 tablet by mouth daily * FLUTICASONE PROPIONATE 50 MCG* Use 2 Sprays in each nostril * BENZONATATE 100 MG CAPSULE Take 2 capsules by mouth thre* PROBIOTIC COLON SUPPORT 1.5 B* Take by mouth. NITROGLYCERIN 0.4 MG SUBLINGU* Dissolve 1 tablet under the t * BUPROPION XL 300 MG 24 HR TAB Take 1 tablet by mouth once d* POLYETHYLENE GLYCOL 3350 17 G* Take 17 g by mouth once daily . MELATONIN 3 MG TABLET Take by mouth. NALTREXONE ER 380 MG INTRAMUS* Inject 380 mg intramuscularly * ACETAMINOPHEN 500 MG TABLET Take 1 tablet by mouth every * Problem List As Of Date 12/03/2019 Noted Resolved Moderate hypertension [I10] 08/24/2006 Anxiety and depression [F41.9, F32.9] 02/05/2014 Seasonal allergies [J30.2] 02/05/2014 Renal insufficiency [N28.9] 02/05/2014 History of skull fracture [Z87.81] 02/05/2014 Hypertriglyceridemia [E78.1] 02/05/2014 Chronic alcohol abuse [F10.10] 02/05/2014 Unilateral inguinal hernia without obstruction *07/09/2016 NSTEMI (non-ST elevated myocardial infarction) *11/29/2017 Presence of drug-eluting stent in left circumfl*11/29/2017 Acute right-sided low back pain without sciatic*03/16/2019 Encounter Status:Closed by MOMO WILSON on 12/03/19 progress on 2019-11 PROGRESS HNO ID: [id number] Normal 12-02-2019 [facility] Author: Momo Wilson [place] Service: ? ([id number]) Author Type: ? Type: Progress Notes Filed: 12/02/2019 11:51 AM Note Text: [id number] Intake attempted, needs [facility] [employer] Day 8 since symptom onset Voice Message Ruby, this is the [facility] calling. We are sorry we missed you, but your care is important to us . We would like to follow up on your MyChart [facility] [employer] re sponse. Please take a moment to complete the questionnaire daily. If any of your symptoms have worsened, please call you PCP o ffice to discuss. [facility] and NON [facility] patients may call: ? [facility] Nurse radiation oncology nurse at [phone] ? Their PCP Office Caregivers may call: ? [facility] Employee Hotline: [phone] ? [facility] Employee Boost appointment for 11/02 emotional support: [phone] If you are finding it more difficult to breathe, or more philomena rt of breath when walking or climbing stairs, please go to the nearest ED . Disposition: Unable to reach, Left Voicemail - Continue Toni simon SIGNATURE: Momo Wilson PATIENT NAME: Bethany Montalvo DATE: December 02, 2019 TIME: 11:48 AM cnptoutreach on CNPTOUTREACH Patient Outreach (AMBCMG) Normal 0 12-02-2019 [place] [facility] BETHANY MONTALVO ([id number]) 1965 M [place] Date Time Provider Department () 12/02/19 [facility]L MTZ (RN[facility] During your visit today, we recorded the following informati on about you: Pearl Mtz, RN, RN 01/04/2020 3:00 AM Signed [facility] TRIGGERED OUTREACH FYI: Monitoring Call: Day 7 from symptom onset 11/25/19 Ruby, this is the [facility] calling, november I spe ak to Bethany Montalvo Patient identified by name and I'm calling you because we see your resp onse in [facility]. Can we discuss if you are getting better or worse and how we can work together to help you recover? Patient response in [facility] [employer] alerted COVID-19 outreach team: Worsening symptoms of SOB Weakness Appetite Diarrhea. Concerning result within [facility] [employer]: Temperature of 99.1 SOB worse Weakness worse. NOTE TO CAREGIVER: ANSWER TH E ?COVID Disposition QUESTION NOW IN THE ENCOUNTER. OUTCOME: COVID-19 Caregiver Monitoring COVID-19 Monitoring 12/02/2019 12/02/2019 Caregiver Entered Response Yes - Are you feeling short of breath today? Yes Yes Have you been able to perform your activities of daily asif ing today without shortness of breath? Yes No Are you having a cough today? Yes Yes Has it been worse over the past 24 hours? No No Are you vomiting? No No Are you experiencing diarrhea? Yes Yes Have you been able to stay hydrated? Yes Yes How is your appetite? Same Same Are you experiencing weakness today? Yes Yes Is the weakness new, better, the same, or worse than yesterd ay? Same Same Highest Temperature - last 24 hours? (Caregiver Entered) 99. 1 - Do you have a pulse oximeter / Oxygen Monitor at home No - Temperature (Patient Entered) (None) 99.1 SpO2 (Patient Entered) (None) (None) We would like to make sure you have what you need so that your basic needs are met- including your personal safety, fahad d, housing and medications?? Would you like to speak with a social work teamcenter consultant to help give you support for any of these needs? No - It can be normal to feel anxious or down during a time lik e this. Would you like to talk to a mental health professional abo ut how you have been feeling? No - NOTE TO CAREGIVER: AFTER ?COVID Disposit ion? FLOWSHEET COMPLETION PLEASE PLACE DOT PHRASE: (.COVIDDISPO) Travel Screening Question Response In the last month, have you been in contact with someone who was confirmed or suspected to have Coronavirus / COVID-19? No / Unsure Do you have any of the following symptoms? Abdominal pain;Chills;Cough;Diarrhea;Joint pain;Lo ss of taste;Muscle pain;Red eye;Severe headache;Shortness of breath;Sore throat;Weakness Have you traveled internationally in the last month? No Travel History Travel since 11/02/19 No documented travel since 11/02/19 Additional Travel Screening/COVID-19 Questions: Patient Outreach from 12/02/2019 in Internal Medicine COVID-19 Symptoms Start Date 11/25/19 We will continue to monitor your MyChart Care Companio n responses. Please be sure to respond daily. Disposition: (!) NURSE ONLY - Normal risk, increased sympt oms not requiring escalation, next day monitoring If you are worsening in any way please call your Prima ry Care Provider right away. [facility] and NON [facility]CF patients may call: ? [facility] Nurse radiation oncology nurse at [phone] ? Their PCP Office Caregivers may call: ? [facility] Employee Hotline: [phone] ? [facility] Employee Boost appointment for 11/02 emotional support: [phone] Patient verbalizes understanding of information provid ed. Denies any further questions at this time. Please visit CDC.gov website for any updated information about Coronavirus. You can also find information on the [facility] website. Additional information can be found on [facility] and [facility] web sites: https://www.cdc.gov/coronavirus/2019-nCoV/index.html [email or web address] SIGNATURE: Pearl Mtz RN PATIENT NAME: Bethany godoy DATE: December 02, 2019 TIME: 11:58 AM Allergies As of Date: 12/02/2019 Noted Allergy Reaction SUDAFED (PSEUDOEPHEDRINE) 06/26/2016 14 - Other: See Comment s Comments: Prostate infection Date Reviewed: 09/07/2019 Reviewed by: Kerry Patel - Fully Assessed Reason for Visit: Covid Follow Up [4439] Cmt: [facility] [employer] Esteban Benji audra Call Prescriptions as of 12/02/2019 Sig: BUSPIRONE 10 MG TABLET Take 1 tablet by mouth three * NIZATIDINE 150 MG CAPSULE Take 1 capsule by mouth twice* CYCLOBENZAPRINE 10 MG TABLET Take 1 tablet by mouth once d* ALBUTEROL SULFATE HFA 90 MCG/* Inhale 2 Puffs as instructed * MELOXICAM 15 MG TABLET Take 1 tablet by mouth once d* TRAZODONE 50 MG TABLET Take 1 tablet by mouth at bed* ASPIRIN 81 MG TABLET,DELAYED * Take 1 tablet by mouth once d * AMLODIPINE 10 MG TABLET Take 1 tablet by mouth once d* CARVEDILOL 6.25 MG TABLET Take 1 tablet by mouth twice * LISINOPRIL 10 MG TABLET Take 1 tablet by mouth once d* SERTRALINE 50 MG TABLET Take 2 tablets by mouth once * THIAMINE HCL (VITAMIN B1) 100* Take 1 tablet by mouth once d * OMEPRAZOLE 20 MG CAPSULE,JAMILA* Take 1 capsule by mouth daily * ATORVASTATIN 80 MG TABLET Take 1 tablet by mouth daily * FLUTICASONE PROPIONATE 50 MCG* Use 2 Sprays in each nostril * BENZONATATE 100 MG CAPSULE Take 2 capsules by mouth thre* PROBIOTIC COLON SUPPORT 1.5 B* Take by mouth. NITROGLYCERIN 0.4 MG SUBLINGU* Dissolve 1 tablet under the t * BUPROPION XL 300 MG 24 HR TAB Take 1 tablet by mouth once d* POLYETHYLENE GLYCOL 3350 17 G* Take 17 g by mouth once daily . MELATONIN 3 MG TABLET Take by mouth. NALTREXONE ER 380 MG INTRAMUS* Inject 380 mg intramuscularly * ACETAMINOPHEN 500 MG TABLET Take 1 tablet by mouth every * Problem List As Of Date 12/02/2019 Noted Resolved Moderate hypertension [I10] 08/24/2006 Anxiety and depression [F41.9, F32.9] 02/05/2014 Seasonal allergies [J30.2] 02/05/2014 Renal insufficiency [N28.9] 02/05/2014 History of skull fracture [Z87.81] 02/05/2014 Hypertriglyceridemia [E78.1] 02/05/2014 Chronic alcohol abuse [F10.10] 02/05/2014 Unilateral inguinal hernia without obstruction *07/09/2016 NSTEMI (non-ST elevated myocardial infarction) *11/29/2017 Presence of drug-eluting stent in left circumfl*11/29/2017 Acute right-sided low back pain without sciatic*03/16/2019 Encounter Status:Closed by MIRELA WRIGHT on 01/04/20 [facility] Outreach (EXEPMN) Normal 0 12-02-2019 [facility] BETHANY MONTALVO ([id number]) 1965 [facility] Date Time Provider Department ([id number]) 12/02/19 MOMO WILSON (RN) EXEPMN During your visit today, we recorded the following informati on about you: Momo Wilson 12/02/2019 11:51 AM Signed [id number] Intake attempted, needs [facility] [employer] Day 8 since symptom onset Voice Message Ruby, this is the [facility] calling. We are sorry we missed you, but your care is important to us . We would like to follow up on your MyChart [facility] [employer] re sponse. Please take a moment to complete the questionnaire daily. If any of your symptoms have worsened, please ca ll you PCP office to discuss. [facility] and [facility] patients may call: ? [facility] Nurse radiation oncology nurse at [phone] ? Their PCP Office Caregivers may call: ? [facility] Employee Hotline: [phone] ? [facility] Employee Boost appointment for 11/02 emotional support: [phone] If you are finding it more difficult to breathe, or more short of breath when walking or climbing stairs, please go to the nearest ED. Disposition: Unable to reach, Left Voicemail - Continue Toni alfred SIGNATURE: Bhavikterese Hai PATIENT NAME: Bethany Montalvo DATE: December 02, 2019 TIME: 11:48 AM Allergies As of Date: 12/02/2019 Noted Allergy Reaction SUDAFED (PSEUDOEPHEDRINE) 06/26/2016 14 - Other: See Comment s Comments: Prostate infection Date Reviewed: 09/07/2019 Reviewed by: Kerry Patel - Fully Assessed Reason for Visit: Covid Follow Up [4253] Cmt: Suspected, Outreach Intake Prescriptions as of 12/02/2019 Sig: BUSPIRONE 10 MG TABLET Take 1 tablet by mouth three * NIZATIDINE 150 MG CAPSULE Take 1 capsule by mouth twice* CYCLOBENZAPRINE 10 MG TABLET Take 1 tablet by mouth once d* ALBUTEROL SULFATE HFA 90 MCG/* Inhale 2 Puffs as instructed * MELOXICAM 15 MG TABLET Take 1 tablet by mouth once d* TRAZODONE 50 MG TABLET Take 1 tablet by mouth at bed* ASPIRIN 81 MG TABLET,DELAYED * Take 1 tablet by mouth once d * AMLODIPINE 10 MG TABLET Take 1 tablet by mouth once d* CARVEDILOL 6.25 MG TABLET Take 1 tablet by mouth twice * LISINOPRIL 10 MG TABLET Take 1 tablet by mouth once d* SERTRALINE 50 MG TABLET Take 2 tablets by mouth once * THIAMINE HCL (VITAMIN B1) 100* Take 1 tablet by mouth once d * OMEPRAZOLE 20 MG CAPSULE,JAMILA* Take 1 capsule by mouth daily * ATORVASTATIN 80 MG TABLET Take 1 tablet by mouth daily * FLUTICASONE PROPIONATE 50 MCG* Use 2 Sprays in each nostril * BENZONATATE 100 MG CAPSULE Take 2 capsules by mouth thre* PROBIOTIC COLON SUPPORT 1.5 B* Take by mouth. NITROGLYCERIN 0.4 MG SUBLINGU* Dissolve 1 tablet under the t * BUPROPION XL 300 MG 24 HR TAB Take 1 tablet by mouth once d* POLYETHYLENE GLYCOL 3350 17 G* Take 17 g by mouth once daily . MELATONIN 3 MG TABLET Take by mouth. NALTREXONE ER 380 MG INTRAMUS* Inject 380 mg intramuscularly * ACETAMINOPHEN 500 MG TABLET Take 1 tablet by mouth every * Problem List As Of Date 12/02/2019 Noted Resolved Moderate hypertension [I10] 08/24/2006 Anxiety and depression [F41.9, F32.9] 02/05/2014 Seasonal allergies [J30.2] 02/05/2014 Renal insufficiency [N28.9] 02/05/2014 History of skull fracture [Z87.81] 02/05/2014 Hypertriglyceridemia [E78.1] 02/05/2014 Chronic alcohol abuse [F10.10] 02/05/2014 Unilateral inguinal hernia without obstruction *07/09/2016 NSTEMI (non-ST elevated myocardial infarction) *11/29/2017 Presence of drug-eluting stent in left circumfl*11/29/2017 Acute right-sided low back pain without sciatic*03/16/2019 Encounter Status:Closed by MOMO WILSON on 12/02/19 progress on 2019-11 PROGRESS HNO ID: [id number] Normal 12-01-2019 [facility] Author: Keren (Firearms Specialist) Doyle Louie ([id number]) Service: ? Author Type: Nurse Practitioner Type: Progress Notes Filed: 12/01/2019 4:27 PM Note Text: Chief Complaint Patient presents with: Telemedicine This Team Access Model visit is a virtual encounter. It requ ired patient-provider interaction for the medical decision making as documented below. Patient was offered a virtual/telemedicine appointmen t in lieu of an office visit due to recommendations to reduce patient exp osure to COVID-19. HIPAA secured video was used for evaluation of this patient. Patient agrees to the visit: Yes Patient Location: [facility] Bethany Montalvo is a 53 year old male who is contacted alice roblero for a virtual visit This is an established patient of Dr. Keren Kwon APRN.TRAWL NET MAKER. Able to use video, but audio unsuccessful. Spoke via phone d leeroying video. 53 year old male with c/o URI sx since last Saturday. Sore throat: Yes. Runny/stuffy nose: Yes. Postnasal drip: No. Throat clearing: No. Sinus pain/ pressure: my whole head just hurts a lot. It fee ls hot inside. Teeth pain: broke a tooth. Headache Yes. Body aches Yes. Ear pain: Yes. Cough: Yes. Production: No. Fever: Yes. Tmax 99.3. Hx asthma Yes. Hx pneumonia Yes. Smoker: No. Stopped 15 months ago! 5 months without ETOH. OTC meds tried: coricidin. Criteria: ? Age > 60 years old - no ? Age < 36 months - no ? On immunosuppressive therapy - no ? Cancer - no ? End-stage renal disease on dialysis - no ? Diabetes - no ? Hypertension - yes ? Coronary artery disease - yes ? Heart failure reduced ejection fraction - no ? Lung disease - no ? HIV/AIDS - no ? Solid organ transplants - no ? Obesity - yes AND Symptoms consistent with influenza-like illness (any two of the following): ? Cough - yes ? Difficulty breathing - no ? Diarrhea - yes ? Fever - 99.3 ? Myalgia - yes ? Anosmia - no ? Loss of taste - altered taste. Everything tastes bland. Past medical history, appointments, medications, allergies r eviewed 12/01/2019 Previous Medical History PAST MEDICAL HISTORY Diagnosis Date - Alcohol abuse - CSF abnormal - GERD (gastroesophageal reflux disease) - HTN (hypertension) - Syncope Previous Surgical History PAST SURGICAL HISTORY Procedure Laterality Date - COLONOSCOP W/ OR W/O BRSH SPEC 01/12/2019 Colonoscopy - COLONOSCOPY BX SINGLE/MULTI 01/12/2019 - CRANIO/MAXILLO-FACIAL SURGERY 1989 orbital blow out fracture/ [place] - EGD W/O OR W/BRUSH/WASH 01/12/2019 EGD - PTCA SNGL VSSL LC 11/21/2017 JUSTIN left circ - TONSILLECTOMY HX - TREAT SHOULDERBLADE FRACTURE - UPPER GI ENDOSCPY, W/BIOPSY, SNGL OR MULT 01/12/2019 Family History FAMILY HISTORY Problem Relation Age of Onset - Psychiatry Mother - Heart Mother ME 53 - Heart Father ME 51 - Colon Cancer Father Patient Allergies ALLERGIES Allergen Reactions - Sudafed [Pseudoephe* Other: See Comments Prostate infection Current Medications Current Outpatient Medications on File Prior to Visit Medication Sig - Nizatidine (AXID) 150 mg capsule Take 1 capsule by mouth t wice daily as needed. - cyclobenzaprine (FLEXERIL) 10 mg tablet Take 1 tablet by m outh once daily as needed. - albuterol HFA (VENTOLIN HFA) 90 mcg/actuation inhaler Inha le 2 Puffs as instructed every 4 hours as needed for Wheezing/Shortness of Breath. - meloxicam (MOBIC) 15 mg tablet Take 1 tablet by mouth once daily. With food. - traZODone (DESYREL) 50 mg tablet Take 1 tablet by mouth at bedtime as needed. - aspirin, enteric coated (ECOTRIN LOW STRENGTH) 81 mg EC ta blet Take 1 tablet by mouth once daily. - amLODIPine (NORVASC) 10 mg tablet Take 1 tablet by mouth o nce daily. - carvedilol (COREG) 6.25 mg tablet Take 1 tablet by mouth t wice daily. - lisinopril (ZESTRIL, PRINIVIL) 10 mg tablet Take 1 tablet by mouth once daily. - sertraline (ZOLOFT) 50 mg tablet Take 2 tablets by mouth o nce daily. - thiamine (VITAMIN B1) 100 mg tablet Take 1 tablet by mouth once daily. - omeprazole (PRILOSEC) 20 mg capsule Take 1 capsule by mout h daily before breakfast. 1/2 hr before meal. - atorvastatin (LIPITOR) 80 mg tablet Take 1 tablet by mouth daily at bedtime. - fluticasone (FLONASE) 50 mcg/actuation nasal spray Use 2 S prays in each nostril once daily. Rinse mouth after use. - benzonatate (TESSALON PERLE) 100 mg capsule Take 2 capsule s by mouth three times daily as needed. - L. gasseri-B. bifidum-B longum (PROBIOTIC COLON SUPPORT) 1 .5 billion cell cap Take by mouth. - nitroglycerin sublingual (NITROQUICK) 0.4 mg SL tablet Dis solve 1 tablet under the tongue as needed. FOR CHEST PAIN. IF NO RELIEF KRISHNA L 911 - buPROPion XL (WELLBUTRIN XL) 300 mg 24 hr tablet Take 1 ta blet by mouth once daily. - busPIRone (BUSPAR) 10 mg tablet Take 1 tablet by mouth thr ee times daily. - polyethylene glycol 3350 (MIRALAX) 17 gram/dose powder José Antonio e 17 g by mouth once daily. - melatonin 3 mg tablet Take by mouth. - naltrexone ER (VIVITROL) 380 mg injection Inject 380 mg in tramuscularly one time only. - quetiapine fumarate (SEROQUEL ORAL) Take 75 mg by mouth. - acetaminophen (TYLENOL EXTRA STRENGTH) 500 mg tablet Take 1 tablet by mouth every 6 hours as needed for Pain. No current facility-administered medications on file prior t o visit. Social History Social History Tobacco Use - Smoking status: Former Smoker Packs/day: 0.50 Start date: 12/30/1983 Last attempt to quit: 05/30/2014 Years since quittin.5 - Smokeless tobacco: Former User Types: Snuff - Tobacco comment: Very few, very infrequently. Father smoke d in childhood home. Substance Use Topics - Alcohol use: Yes Alcohol/week: 210.0 standard drinks Types: 84 Cans of Beer (12oz) per week Frequency: Monthly or less Drinks per session: 10 or more Binge frequency: Less than monthly Comment: Binge drinking at times, worse with stress. - Drug use: Yes Comment: Occassional marijuana, 03/2014. Huffed spray paint and glue briefly, ages 8-9. Whippets in mid to late teens. TO EXAM: There were no vitals taken for this visit. Deferred physical exam as visit was completed over the phone /MyChart. Virtual visit completed using video, limited exam completed. General Appearance: Patient sounds or appears ill: No Skin: Skin color normal Head: Normocephalic Patient is not able to speak in complete sentences: No Patient has labored breathing: No. Patient is audibly coughing: No Psych: Attitude - cooperative, easily engaged in conversatio n Affect - Euthymic, normal mood Mental status: Alert. Speech is clear and fluent with good r epetition, comprehension Appearance - Normal hygiene and grooming appropriate Coordination: No abnormal or extraneous movements. Gait/Stance: Posture is normal. Health Maintenance List HIV SCREENING due on 1984 BP CONTROLLED (<130/80) due on 1984 LDL CHOLESTEROL due on 09/30/2019 SHINGRIX VACCINE(2 of 2) due on 11/10/2019 ANNUAL PCP TEAM CHRONIC DISEASE VISIT due on 07/23/2020 DIABETES SCREEN due on 10/28/2021 LIPID SCREEN due on 09/30/2023 COLORECTAL CANCER SCREENING,SEE MODIFIER due on 01/13/2024 DTAP,TDAP,TD(2 - Td) due on 07/10/2026 ONE PNEUMOVAX PRIOR TO AGE 65 Completed INFLUENZA Completed Data reviewed Last 5 Encounter BP Readings: Date: BP: 09/07/2019 122/80 07/23/2019 138/94 06/12/2019 149/93[Shane BP[ 05/28/2019 215/128 03/03/2019 133/73 BMI Readings from Last 5 Encounters: 09/07/19 : 32.46 kg/m? 07/23/19 : 31.85 kg/m? 06/12/19 : 33.58 kg/m? 05/28/19 : 32.49 kg/m? 03/03/19 : 31.71 kg/m? Last 5 Encounter Wt Readings: Date: Wt: 09/07/2019 102.6 kg (226 lb 3.2 oz) 07/23/2019 100.7 kg (222 lb) 06/12/2019 106.1 kg (234 lb) 05/28/2019 102.7 kg (226 lb 6.4 oz) 03/03/2019 100.2 kg (221 lb) Medication and allergy list reviewed, reconciled and updated 12/01/2019 Assessment: ASSESSMENT/PLAN: 1. URI, acute - ICD9: 465.9, ICD10: J06.9 (primary diagnosis ) - Symptomatic treatment with prn analgesia - Supportive care with fluids and rest - XR CHEST 2V FRONTAL/LAT 2. Cough - ICD9: 786.2, ICD10: R05 - XR CHEST 2V FRONTAL/LAT Placed order for chest xray, as has hx of pneumonia. However, discussed locations for currently getting a chest x ray. 3. Suspected COVID-19 virus infection - ICD9: , ICD10: Z20.8 28 Cannot r/o covid infection. Patient is high risk with multip le symptoms. Will refer to covid testing team for further recommendations . Pt is aware to treat symptoms and stay well hydrated. Self-quarantine. To the ER with any severe symptoms. - XR CHEST 2V FRONTAL/LAT Discussed treatment plan and patient voices understanding. Patient's questions answered appropriately. Medications and potential side effects were discussed and avel lopez voices understanding. Keren Kwon APRN.MAIA obsolete on 2019-11 OBSOLETE Refill (FAMPWS) Normal 12-01-2019 Efren veland [facility] BETHANY MONTALVO ([id number]) 1965 [facility] Time Provider Department ([id number]) 12/01/19 KEREN KWON (TRAWL NET MAKER) FAMPWS During your visit today, we recorded the following informati on about you: Allergies As of Date: 12/01/2019 Noted Allergy Reaction SUDAFED (PSEUDOEPHEDRINE) 06/26/2016 14 - Other: See Comment s Comments: Prostate infection Date Reviewed: 09/07/2019 Reviewed by: Kerry Patel - Fully Assessed Reason for Visit: Refill Request [94] Prescriptions as of 12/01/2019 Sig: BUSPIRONE 10 MG TABLET Take 1 tablet by mouth three * NIZATIDINE 150 MG CAPSULE Take 1 capsule by mouth twice* CYCLOBENZAPRINE 10 MG TABLET Take 1 tablet by mouth once d* ALBUTEROL SULFATE HFA 90 MCG/* Inhale 2 Puffs as instructed * MELOXICAM 15 MG TABLET Take 1 tablet by mouth once d* TRAZODONE 50 MG TABLET Take 1 tablet by mouth at bed* ASPIRIN 81 MG TABLET,DELAYED * Take 1 tablet by mouth once d * AMLODIPINE 10 MG TABLET Take 1 tablet by mouth once d* CARVEDILOL 6.25 MG TABLET Take 1 tablet by mouth twice * LISINOPRIL 10 MG TABLET Take 1 tablet by mouth once d* SERTRALINE 50 MG TABLET Take 2 tablets by mouth once * THIAMINE HCL (VITAMIN B1) 100* Take 1 tablet by mouth once d * OMEPRAZOLE 20 MG CAPSULE,JAMILA* Take 1 capsule by mouth daily * ATORVASTATIN 80 MG TABLET Take 1 tablet by mouth daily * FLUTICASONE PROPIONATE 50 MCG* Use 2 Sprays in each nostril * BENZONATATE 100 MG CAPSULE Take 2 capsules by mouth thre* PROBIOTIC COLON SUPPORT 1.5 B* Take by mouth. NITROGLYCERIN 0.4 MG SUBLINGU* Dissolve 1 tablet under the t * BUPROPION XL 300 MG 24 HR TAB Take 1 tablet by mouth once d* POLYETHYLENE GLYCOL 3350 17 G* Take 17 g by mouth once daily . MELATONIN 3 MG TABLET Take by mouth. NALTREXONE ER 380 MG INTRAMUS* Inject 380 mg intramuscularly * ACETAMINOPHEN 500 MG TABLET Take 1 tablet by mouth every * Problem List As Of Date 12/01/2019 Noted Resolved Moderate hypertension [I10] 08/24/2006 Anxiety and depression [F41.9, F32.9] 02/05/2014 Seasonal allergies [J30.2] 02/05/2014 Renal insufficiency [N28.9] 02/05/2014 History of skull fracture [Z87.81] 02/05/2014 Hypertriglyceridemia [E78.1] 02/05/2014 Chronic alcohol abuse [F10.10] 02/05/2014 Unilateral inguinal hernia without obstruction *07/09/2016 NSTEMI (non-ST elevated myocardial infarction) *11/29/2017 Presence of drug-eluting stent in left circumfl*11/29/2017 Acute right-sided low back pain without sciatic*03/16/2019 Encounter Status:Closed by MIKE LYNN MA on 12/01/19 cnpn on 2019-12-01 [facility] Normal 12-01-2019 [place] BETHANY Madsen ([id number]) 1965 [facility] Date Time Provider Department ([id number]) 12/01/19 SARAI GASCA) PUSHPA During your visit today, we recorded the following informati on about you: Sarai Gasca PA-C 12/01/2019 4:31 PM Signed Pt meets testing criteria fo r COVID-19 and test ordered. A member from [facility] will contact the pt with further details to schedule. Sarai Gasca PA-C COVID Hotline Patient Education: ? You meet criteria for COVID-19 (Novel Coronavirus) testi liliana. A member from [facility] will contact you regarding further detail s to schedule VIP time at the [facility]. If your med ical condition worsens, please contact your primary care provider. Steps to Follow: Isolation: You should follow the prevention steps below unti l a healthcare provider or local or [facility] department says you can return to your normal activities. Stay home except to get medical care ? People who are mildly ill with COVID-19 are able to isolate at home during their illness. ? You should restrict activities outside your home, except for getting medical care. ? Do not go to work, school, or public areas. Avoid using pu blic transportation, ride-sharing, taxis, or public air travel. Separate yourself from other people and animals in your home People: As much as possible, you should stay in a specific room and away from other people in your home. Also, you should use a separate b athroom, if available. Animals: You should restrict contact wit h pets and other animals while you are sick with COVID-19, just like you would around other peopl e. Although there have not been reports of pets or other a nimals becoming sick with COVID-19, it is still recommended that people sick wi th COVID-19 limit contact with animals until more information is known about the virus. When possible, have another member of your household care for your animals w hile you are sick. If you are sick with COVID-19, avoid contact with y our pet, including petting, snuggling, being kissed or licked, and sharing food. If you must care for your pet or be around animals while you are sick, wash your hands before an d after you interact with pets and wear a facemask. See COVID-19 and Kiera ellis for more information. Call ahead before visiting your doctor If you have a medical appointment, call the [facility] provider and tell them that you have or may have COVID-19. This will help the healthcare provider's office take steps to keep other people from getting infected or exposed. Personal Protection: You should wear a facemask when you are around other p eople (e.g., sharing a room or vehicle) or pets. If you are not able to wear a facemask (for example, because it causes trouble breathing), th en people who live with you should not stay in the same room with you, or they should wear a facemask if they enter your room. Cover your coughs and sneezes ? Cover your mouth and nose with a tissu e when you cough or sneeze. Throw used tissues in a lined trash can. Immediately wash y our hands with soap and water for at least 20 seconds or, if soap and water are not avai lable, clean your hands with an alcohol-based hand sanitiz er that contains at least 60% alcohol. ? Wash your hands often with soap and water for at least 20 seconds, especially after blowing your nose, coughing, or sneezing; going to the bathroom; and before eating or preparing food. If soap and michael er are not readily available, use an alcohol-based hand certification officer with at least 60% alco hol, covering all surfaces of your hands and rubbing them together until they feel dry. Soap and water are the best option if hands are visibly dirty. ? Avoid touching your eyes, nose, and mouth with unwashed cool nds. Avoid sharing personal household items ? You should not share dishe s, drinking glasses, cups, eating utensils, towels, or bedding with other people or pets in your home. After u sing these items, they should be washed thoroughly with soap and water. Clean all High-touch surfaces everyday ? High touch surfaces include counters, tabletops, doorknobs , bathroom fixtures, toilets, phones, keyboards, tablets, and bedside t vitaliy. Use a household cleaning spray or wipe, according to t he label instructions. Labels contain instructions for safe and effective use of the clean ing product including precautions you should take when applying the prod uct, such as wearing gloves and making sure you have good ventilation dur ing use of the product. Monitor your symptoms: ? Seek prompt medical attention if your illness is worsening (e.g., difficulty breathing). ? Before seeking care, call your healthcare provider and t ell them that you have, or are being evaluated for, COVID- 19. Put on a facemask before you enter the facility. These steps will help the healthcare pro vider's office to keep other people in the office or waiting room from gettin g infected or exposed. ? If you have a medical emergency and need to call 911, no tify the dispatch personnel that you have, or are being ev aluated for COVID-19. If possible, put on a facemask before emergency medical services arrive. Discontinuing home isolation: ? Patients with confirmed COVID-19 should remain under home isolation precautions until the risk o f secondary transmission to others is thought to be low. The decision to discont inue home isolation precautions should be made on a [id number] basis, in consultation with healthcare provid ers and state and local health departments. Close contacts (household members, intimate partners, and caregivers) should follow these recommendations: ? Close contacts should toni tor their health; they should call their healthcare provider right away if they develop symptoms suggestive of C OVID-19 (e.g., fever, cough, shortness of b reath) (see Interim [place] Guidance for Risk Assessment and Public Health Management of Persons with Potential Coronavirus Disease 2019 (COVID-19) Exposure in Travel-associated or Community Settin gs.) ? Make sure that you understand and can help the patient fol low their healthcare provider's instructions for m edication(s) and care. You should help the patient with basic needs in the home and provide support for getting groceries, prescriptions, and other personal needs. ? Monitor the patient's symptoms. If the patient is getting sicker, call their healthcare provider and tell them that the patient is being tested for COVID-19. This will help the healthcare provider's off ice take steps to keep other people in the office or waiting room from getting infe cted. Ask the healthcare provider to call the local or state health department for additional guidance. If the patient has a medical emergency and you nee d to call 911, notify the dispatch personnel that the patient h as, or is being evaluated for COVID-19. ? Household members should stay in another room or be separa gissel from the patient as much as possible. Household members should use a separate bedroom and bathroom, if available. ? Prohibit visitors who do not have an essential need to be in the home. ? Make sure that shared spaces in the home have good a ir flow, such as by an air conditioner or an opened window, weather permitting. ? Perform hand hygiene frequently. Wash your hands oft en with soap and water for at least 20 seconds or u se an alcohol-based hand certification officer that contains 60 to 95% alcohol, covering all surfaces of your cool nds and rubbing them together until they feel dry. Soap and water shou ld be used preferentially if hands are visibly dirty. ? Avoid touching your eyes, nose, and mouth with unwashed cool nds. ? The patient should wear a facemask when around other people. If the patient is not able to wear a facemask (for example, because it caus es trouble breathing), you, as the caregiver, shoul d wear a mask when you are in the same room as the patient. ? Wear a disposable facemask and gloves when you touch or have contact with the patient's blood, stool, or body fluids, such as saliva , sputum, nasal mucus, vomit, urine. o Throw out disposable facemasks and gloves after using th em. Do not reuse. o When removing personal protective equipment, first remove and dispose of gloves. Then, immediately cl vivek your hands with soap and water or alcohol-based hand certification officer. Next, remove and dispose of facemask, and immediately clean your hands again with soap and water or alcohol-based hand s anitizer. ? Avoid sharing household items with the patient. You should not share dishes, drinking glasses, cups, eati ng utensils, towels, bedding, or other items. After the patient uses these items, you should wash them thoroughl y ? Wash laundry thoroughly. o Immediately remove and wash clothes or bedding that have blood, stool, or body fluids on them. o Wear disposable gloves whi le handling soiled items and keep soiled items away from your body. Clean your hands (with s oap and water or an alcohol-based hand certification officer) immediately after removing your gloves. o Read and follow directions on labels of laundry or clothin g items and detergent. In general, using a normal laundry detergen t according to washing machine instructions and dry thoroughly using the warmest te mperatures recommended on the clothing label. ? Place all used disposable gloves, face masks, and other contaminated items in a lined container before disposing of them with other household waste. Clean your hands (with soap and wa ter or an alcohol-based hand certification officer) immediately after handling these items. Soap and water should be used preferentially if hands are visibly dirty. ? Discuss any additional questions with your [facility] or local health department or healthcare provider. Additional information Home healthcare personnel should refer to Interim Infection Prevention and Control Recommendations for Patients with Known or Patients Under Investigation for Coronavirus Disease 2019 (COVID-19) in a Healthcare Sett ing. Close contact is defined as? a) being within approximately 6 feet (2 meters) of a COVID-1 9 case for a prolonged period of time; close contact can occur while matteo ng for, living with, visiting, or sharing a health care waiting area or room with a COVID-19 case ? or ? b) having direct contact with infectious secreti ons of a COVID-19 case (e.g., being coughed on). Allergies As of Date: 12/01/2019 Noted Allergy Reaction SUDAFED (PSEUDOEPHEDRINE) 06/26/2016 14 - Other: See Comment s Comments: Prostate infection Date Reviewed: 09/07/2019 Reviewed by: Kerry Patel - Fully Assessed Reason for Visit: Covid-19 Hotline [7146] Primary Visit Diagnosis:Suspected COVID-19 virus infection [ Z20.828] Order(s):2019 CORONAVIRUS [SQCOVID] [facility] [id number] [facility] [[id number]] Order #: [id number] Prescriptions as of 12/01/2019 Sig: BUSPIRONE 10 MG TABLET Take 1 tablet by mouth three * NIZATIDINE 150 MG CAPSULE Take 1 capsule by mouth twice* CYCLOBENZAPRINE 10 MG TABLET Take 1 tablet by mouth once d* ALBUTEROL SULFATE HFA 90 MCG/* Inhale 2 Puffs as instructed * MELOXICAM 15 MG TABLET Take 1 tablet by mouth once d* TRAZODONE 50 MG TABLET Take 1 tablet by mouth at bed* ASPIRIN 81 MG TABLET,DELAYED * Take 1 tablet by mouth once d * AMLODIPINE 10 MG TABLET Take 1 tablet by mouth once d* CARVEDILOL 6.25 MG TABLET Take 1 tablet by mouth twice * LISINOPRIL 10 MG TABLET Take 1 tablet by mouth once d* SERTRALINE 50 MG TABLET Take 2 tablets by mouth once * THIAMINE HCL (VITAMIN B1) 100* Take 1 tablet by mouth once d * OMEPRAZOLE 20 MG CAPSULE,JAMILA* Take 1 capsule by mouth daily * ATORVASTATIN 80 MG TABLET Take 1 tablet by mouth daily * FLUTICASONE PROPIONATE 50 MCG* Use 2 Sprays in each nostril * BENZONATATE 100 MG CAPSULE Take 2 capsules by mouth thre* PROBIOTIC COLON SUPPORT 1.5 B* Take by mouth. NITROGLYCERIN 0.4 MG SUBLINGU* Dissolve 1 tablet under the t * BUPROPION XL 300 MG 24 HR TAB Take 1 tablet by mouth once d* POLYETHYLENE GLYCOL 3350 17 G* Take 17 g by mouth once daily . MELATONIN 3 MG TABLET Take by mouth. NALTREXONE ER 380 MG INTRAMUS* Inject 380 mg intramuscularly * ACETAMINOPHEN 500 MG TABLET Take 1 tablet by mouth every * Problem List As Of Date 12/01/2019 Noted Resolved Moderate hypertension [I10] 08/24/2006 Anxiety and depression [F41.9, F32.9] 02/05/2014 Seasonal allergies [J30.2] 02/05/2014 Renal insufficiency [N28.9] 02/05/2014 History of skull fracture [Z87.81] 02/05/2014 Hypertriglyceridemia [E78.1] 02/05/2014 Chronic alcohol abuse [F10.10] 02/05/2014 Unilateral inguinal hernia without obstruction *07/09/2016 NSTEMI (non-ST elevated myocardial infarction) *11/29/2017 Presence of drug-eluting stent in left circumfl*11/29/2017 Acute right-sided low back pain without sciatic*03/16/2019 Encounter Status:Closed by SARAI GASCA PA-C on 12/01/19 cnco on 2019-12-01 CNCO Letter Text Normal 12-01-2019 [facility] ([id number]) cnpn on 2019-11-30 CNPN Telephone (FAMPWS) Normal 11-30-2019 [place] [facility] BETHANY MONTALVO ([id number]) 1965 M [place] Date Time Provider Department ([id number]) 11/30/19 KEREN KWON ([employer] [employer]) BG During your visit today, we recorded the following informati on about you: Malia Durán MA 11/30/2019 9:03 AM Signed [facility] for Nizatidine appro rosalba from 10/28/2019-11/26/2020. Will send to scanning. Malia Durán MA Allergies As of Date: 11/30/2019 Noted Allergy Reaction SUDAFED (PSEUDOEPHEDRINE) 06/26/2016 14 - Other: See Comment s Comments: Prostate infection Date Reviewed: 09/07/2019 Reviewed by: Kerry Patel - Fully Assessed Reason for Visit: Insurance Authorization [[id number]] Cmt: Nizatidine AVEL approval Prescriptions as of 11/30/2019 Sig: NIZATIDINE 150 MG CAPSULE Take 1 capsule by mouth twice* CYCLOBENZAPRINE 10 MG TABLET Take 1 tablet by mouth once d* ALBUTEROL SULFATE HFA 90 MCG/* Inhale 2 Puffs as instructed * MELOXICAM 15 MG TABLET Take 1 tablet by mouth once d* TRAZODONE 50 MG TABLET Take 1 tablet by mouth at bed* ASPIRIN 81 MG TABLET,DELAYED * Take 1 tablet by mouth once d * AMLODIPINE 10 MG TABLET Take 1 tablet by mouth once d* CARVEDILOL 6.25 MG TABLET Take 1 tablet by mouth twice * LISINOPRIL 10 MG TABLET Take 1 tablet by mouth once d* SERTRALINE 50 MG TABLET Take 2 tablets by mouth once * THIAMINE HCL (VITAMIN B1) 100* Take 1 tablet by mouth once d * OMEPRAZOLE 20 MG CAPSULE,JAMILA* Take 1 capsule by mouth daily * ATORVASTATIN 80 MG TABLET Take 1 tablet by mouth daily * FLUTICASONE PROPIONATE 50 MCG* Use 2 Sprays in each nostril * BENZONATATE 100 MG CAPSULE Take 2 capsules by mouth thre* PROBIOTIC COLON SUPPORT 1.5 B* Take by mouth. NITROGLYCERIN 0.4 MG SUBLINGU* Dissolve 1 tablet under the t * BUPROPION XL 300 MG 24 HR TAB Take 1 tablet by mouth once d* BUSPIRONE 10 MG TABLET Take 1 tablet by mouth three * POLYETHYLENE GLYCOL 3350 17 G* Take 17 g by mouth once daily . MELATONIN 3 MG TABLET Take by mouth. NALTREXONE ER 380 MG INTRAMUS* Inject 380 mg intramuscularly * SEROQUEL ORAL Take 75 mg by mouth. ACETAMINOPHEN 500 MG TABLET Take 1 tablet by mouth every * Problem List As Of Date 11/30/2019 Noted Resolved Moderate hypertension [I10] 08/24/2006 Anxiety and depression [F41.9, F32.9] 02/05/2014 Seasonal allergies [J30.2] 02/05/2014 Renal insufficiency [N28.9] 02/05/2014 History of skull fracture [Z87.81] 02/05/2014 Hypertriglyceridemia [E78.1] 02/05/2014 Chronic alcohol abuse [F10.10] 02/05/2014 Unilateral inguinal hernia without obstruction *07/09/2016 NSTEMI (non-ST elevated myocardial infarction) *11/29/2017 Presence of drug-eluting stent in left circumfl*11/29/2017 Acute right-sided low back pain without sciatic*03/16/2019 Encounter Status:Closed by MALIA DURÁN MA on 11/30/19 [facility]) Normal 11-26-2019 [place] BETHANY Madsen ([id number]) 1965 [facility] Date Time Provider Department ([id number]) 11/26/19 KEREN KWON ([facility]) FAMPWS During your visit today, we recorded the following informati on about you: Rossana Jain RN 11/26/2019 11:47 AM Signed Gian pharmacist from [facility] called, v erified pt by name and birthdate. Gian states Pepcid is on backorder and pt will need a repla cement for medication. Please advie and send new rx Rossana Kwon APRN.[employer] [employer] 11/26/2019 2:27 PM Signed axid sent to the pharmacy. Keren Kwon APRN.MAIA Allergies As of Date: 11/26/2019 Noted Allergy Reaction SUDAFED (PSEUDOEPHEDRINE) 06/26/2016 14 - Other: See Comment s Comments: Prostate infection Date Reviewed: 09/07/2019 Reviewed by: Kerry Patel - Fully Assessed Reason for Visit: Medication Question [1478] Order(s):Nizatidine (AXID) 150 mg capsuleTake 1 capsul e by mouth twice daily as needed.Disp: 60 capsuleRfl: 2 Prescriptions as of 11/26/2019 Sig: NIZATIDINE 150 MG CAPSULE Take 1 capsule by mouth twice* CYCLOBENZAPRINE 10 MG TABLET Take 1 tablet by mouth once d* ALBUTEROL SULFATE HFA 90 MCG/* Inhale 2 Puffs as instructed * MELOXICAM 15 MG TABLET Take 1 tablet by mouth once d* TRAZODONE 50 MG TABLET Take 1 tablet by mouth at bed* ASPIRIN 81 MG TABLET,DELAYED * Take 1 tablet by mouth once d * AMLODIPINE 10 MG TABLET Take 1 tablet by mouth once d* CARVEDILOL 6.25 MG TABLET Take 1 tablet by mouth twice * LISINOPRIL 10 MG TABLET Take 1 tablet by mouth once d* SERTRALINE 50 MG TABLET Take 2 tablets by mouth once * THIAMINE HCL (VITAMIN B1) 100* Take 1 tablet by mouth once d * OMEPRAZOLE 20 MG CAPSULE,JAMILA* Take 1 capsule by mouth daily * ATORVASTATIN 80 MG TABLET Take 1 tablet by mouth daily * FLUTICASONE PROPIONATE 50 MCG* Use 2 Sprays in each nostril * BENZONATATE 100 MG CAPSULE Take 2 capsules by mouth thre* PROBIOTIC COLON SUPPORT 1.5 B* Take by mouth. NITROGLYCERIN 0.4 MG SUBLINGU* Dissolve 1 tablet under the t * BUPROPION XL 300 MG 24 HR TAB Take 1 tablet by mouth once d* BUSPIRONE 10 MG TABLET Take 1 tablet by mouth three * POLYETHYLENE GLYCOL 3350 17 G* Take 17 g by mouth once daily . MELATONIN 3 MG TABLET Take by mouth. NALTREXONE ER 380 MG INTRAMUS* Inject 380 mg intramuscularly * SEROQUEL ORAL Take 75 mg by mouth. ACETAMINOPHEN 500 MG TABLET Take 1 tablet by mouth every * Medication notes this encounter FAMOTIDINE 20 MG TABLET >> Keren Kwon APRN.CNP 11/26/2019 2:27 PM not available from pharmacy Problem List As Of Date 11/26/2019 Noted Resolved Moderate hypertension [I10] 08/24/2006 Anxiety and depression [F41.9, F32.9] 02/05/2014 Seasonal allergies [J30.2] 02/05/2014 Renal insufficiency [N28.9] 02/05/2014 History of skull fracture [Z87.81] 02/05/2014 Hypertriglyceridemia [E78.1] 02/05/2014 Chronic alcohol abuse [F10.10] 02/05/2014 Unilateral inguinal hernia without obstruction *07/09/2016 NSTEMI (non-ST elevated myocardial infarction) *11/29/2017 Presence of drug-eluting stent in left circumfl*11/29/2017 Acute right-sided low back pain without sciatic*03/16/2019 Prescriptions ordered this encounter Disp Refills Start End NIZATIDINE 150 MG CAPSULE 60 c* 2 11/26/2019 Route: ORAL Sig: Take 1 capsule by mouth twice daily as needed. Medications Discontinued During This Encounter famotidine (PEPCID) 20 mg tablet 60 t* 3 10/27/2019 11/26/2019 Route: ORAL Sig: Take 1 tablet by mouth twice daily as needed. Disc: Other Encounter Status:Closed by DONNA RICHEY LPN on 11/26/19 obsolete on 2019-11 OBSOLETE Refill (LAURENCE) Normal 11-24-2019 [facility] BETHANY Madsen ([id number]) 1965 [facility] Date Time Provider Department ([id number]) 11/24/19 KEREN KWON (MAIA) LAURENCE During your visit today, we recorded the following informati on about you: Mike Lynn Ma 11/25/2019 10:29 AM Signed KRISTEN: 07/23/2019 Patient's request for medication is as follows: Pending Prescriptions Disp Refills CYCLOBENZAPRINE 10 MG TABLET 30 tablet 0 Sig: Take 1 tablet by mouth once daily as needed. AMBROCIO: No ALBUTEROL SULFATE HFA 90 MCG/ACTUATION AEROSOL INHALER 1 Inh aler 5 Sig: Inhale 2 Puffs as instructed every 4 hours as needed fo r Wheezing/Shortness of Breath. AMBROCIO: No MELOXICAM 15 MG TABLET 30 tablet 1 Sig: Take 1 tablet by mouth once daily. With food. AMBROCIO: No TRAZODONE 50 MG TABLET 30 tablet 1 Sig: Take 1 tablet by mouth at bedtime as needed. AMBROCIO: No Please approve the above prescription(s) to electronic ally send to pharmacy. Mike Kwon APRN.CNP 11/25/2019 1:29 PM Signed Script sent. Keren Kwon APRN.CNP Allergies As of Date: 11/24/2019 Noted Allergy Reaction SUDAFED (PSEUDOEPHEDRINE) 06/26/2016 14 - Other: See Comment s Comments: Prostate infection Date Reviewed: 09/07/2019 Reviewed by: Kerry Patel - Fully Assessed Reason for Visit: Refill Request [94] Visit Diagnoses:Hypertension, essential [I10] Acute right-sided low back pain without sciatica [M54.5] Right hip pain [M25.551] Chronic insomnia [F51.04] Order(s):cyclobenzaprine (FLEXERIL) 10 mg tabletTake 1 tab let by mouth once daily as needed.Disp: 30 tabletRfl: 0 albuterol HFA (VENTOLIN HFA) 90 mcg/actuation inhalerInhale 2 Puffs as instructed every 4 hours as needed for Wheezing/Shortness of Breath.Disp: 1 InhalerRfl: 5 meloxicam (MOBIC) 15 mg tabletTake 1 tablet by mouth once da kehinde. With food.Disp: 30 tabletRfl: 1 traZODone (DESYREL) 50 mg tabletTake 1 tablet by mouth at be dtime as needed.Disp: 30 tabletRfl: 1 Prescriptions as of 11/24/2019 Sig: CYCLOBENZAPRINE 10 MG TABLET Take 1 tablet by mouth once d* ALBUTEROL SULFATE HFA 90 MCG/* Inhale 2 Puffs as instructed * MELOXICAM 15 MG TABLET Take 1 tablet by mouth once d* TRAZODONE 50 MG TABLET Take 1 tablet by mouth at bed* ASPIRIN 81 MG TABLET,DELAYED * Take 1 tablet by mouth once d * AMLODIPINE 10 MG TABLET Take 1 tablet by mouth once d* CARVEDILOL 6.25 MG TABLET Take 1 tablet by mouth twice * LISINOPRIL 10 MG TABLET Take 1 tablet by mouth once d* FAMOTIDINE 20 MG TABLET Take 1 tablet by mouth twice * SERTRALINE 50 MG TABLET Take 2 tablets by mouth once * THIAMINE HCL (VITAMIN B1) 100* Take 1 tablet by mouth once d * OMEPRAZOLE 20 MG CAPSULE,JAMILA* Take 1 capsule by mouth daily * ATORVASTATIN 80 MG TABLET Take 1 tablet by mouth daily * FLUTICASONE PROPIONATE 50 MCG* Use 2 Sprays in each nostril * BENZONATATE 100 MG CAPSULE Take 2 capsules by mouth thre* PROBIOTIC COLON SUPPORT 1.5 B* Take by mouth. NITROGLYCERIN 0.4 MG SUBLINGU* Dissolve 1 tablet under the t * BUPROPION XL 300 MG 24 HR TAB Take 1 tablet by mouth once d* BUSPIRONE 10 MG TABLET Take 1 tablet by mouth three * POLYETHYLENE GLYCOL 3350 17 G* Take 17 g by mouth once daily . MELATONIN 3 MG TABLET Take by mouth. NALTREXONE ER 380 MG INTRAMUS* Inject 380 mg intramuscularly * SEROQUEL ORAL Take 75 mg by mouth. ACETAMINOPHEN 500 MG TABLET Take 1 tablet by mouth every * Problem List As Of Date 11/24/2019 Noted Resolved Moderate hypertension [I10] 08/24/2006 Anxiety and depression [F41.9, F32.9] 02/05/2014 Seasonal allergies [J30.2] 02/05/2014 Renal insufficiency [N28.9] 02/05/2014 History of skull fracture [Z87.81] 02/05/2014 Hypertriglyceridemia [E78.1] 02/05/2014 Chronic alcohol abuse [F10.10] 02/05/2014 Unilateral inguinal hernia without obstruction *07/09/2016 NSTEMI (non-ST elevated myocardial infarction) *11/29/2017 Presence of drug-eluting stent in left circumfl*11/29/2017 Acute right-sided low back pain without sciatic*03/16/2019 Prescriptions ordered this encounter Disp Refills Start End CYCLOBENZAPRINE 10 MG TABLET 30 t* 0 11/25/2019 Route: ORAL Sig: Take 1 tablet by mouth once daily as needed. ALBUTEROL SULFATE HFA 90 MCG/ACTUATI* 1 In* 5 11/25/2019 Cmt: Generic or brand: dispense inhaler preferre d by patient/insurance unless AMBROCIO flag is selected. Route: INHALATION Sig: Inhale 2 Puffs as instructed every 4 hours as needed fo r Wheezing/Shortness of Breath. MELOXICAM 15 MG TABLET 30 t* 1 11/25/2019 Route: ORAL Sig: Take 1 tablet by mouth once daily. With food. TRAZODONE 50 MG TABLET 30 t* 1 11/25/2019 Route: ORAL Sig: Take 1 tablet by mouth at bedtime as needed. Medications Discontinued During This Encounter cyclobenzaprine (FLEXERIL) 10 mg tab* 30 t* 0 10/27/2019 Route: ORAL Sig: Take 1 tablet by mouth once daily as needed. Disc: Reason for discontinue is not on file. albuterol HFA (VENTOLIN HFA) 90 mcg/* 1 In* 5 10/27/2019 020 Cmt: Generic or brand: dispe nse inhaler preferred by patient/insurance unless AMBROCIO flag is selected. Route: INHALATION Sig: Inhale 2 Puffs as instr ucted every 4 hours as needed for Wheezing/Shortness of Breath. Disc: Reason for discontinue is not on file. meloxicam (MOBIC) 15 mg tablet 30 t* 1 10/27/2019 11/25/2019 Route: ORAL Sig: Take 1 tablet by mouth once daily. With food. Disc: Reason for discontinue is not on file. traZODone (DESYREL) 50 mg tablet 30 t* 1 10/27/2019 11/25/2019 Route: ORAL Sig: Take 1 tablet by mouth at bedtime as needed. Disc: Reason for discontinue is not on file. Encounter Status:Closed by KEREN KWON CNP on 11/25/19 cnpn on 2019-10-26 CNPN Telephone (FAMPWS) Normal 10-26-2019 [place] [facility] BETHANY MONTALVO ([id number]) 1965 [facility] Date Time Provider Department ([id number]) 10/26/19 KEREN KWON ([employer] [employer]) BG During your visit today, we recorded the following informati on about you: Vargas Rolon, RN, RN 10/26/2019 10:32 AM Signed Pt girlfrienAnju saleh calls stating pt has abdomi nal cramps and vomiting since yesterday. States pt last vomited about 20 minutes ago. Unab le to tolerate liquids at this time. Denies fever. States pt cool s SOB but that has been since a few weeks ago. Anju states pt only ate pizza yesterday th at was in the fridge x 1 week. Advised Anju to wait approx 1 hour since pt last vomited and offer a small amount of water (such as a tablespoon). If tolerated, offer another small amount after 15 minutes. Advised Anju to contact office if pt worsening or not urinating. Advised ER is also an option. Anju verbalizes understanding Romi Alcantar MD 10/26/2019 11:54 AM Signed I agree with the advice given Romi Alcantar MD Allergies As of Date: 10/26/2019 Noted Allergy Reaction SUDAFED (PSEUDOEPHEDRINE) 06/26/2016 14 - Other: See Comment s Comments: Prostate infection Date Reviewed: 09/07/2019 Reviewed by: Kerry Patel - Fully Assessed Reason for Visit: Vomiting [120] Prescriptions as of 10/26/2019 Sig: TRAZODONE 50 MG TABLET Take 1 tablet by mouth at bed* MELOXICAM 15 MG TABLET Take 1 tablet by mouth once d* FLUTICASONE PROPIONATE 50 MCG* Use 2 Sprays in each nostril * BENZONATATE 100 MG CAPSULE Take 2 capsules by mouth thre* ALBUTEROL SULFATE HFA 90 MCG/* Inhale 2 Puffs as instructed * PROBIOTIC COLON SUPPORT 1.5 B* Take by mouth. AMLODIPINE 10 MG TABLET Take 1 tablet by mouth once d* CARVEDILOL 6.25 MG TABLET Take 1 tablet by mouth twice * LISINOPRIL 10 MG TABLET Take 1 tablet by mouth once d* FAMOTIDINE 20 MG TABLET Take 1 tablet by mouth twice * SERTRALINE 50 MG TABLET Take 2 tablets by mouth once * CYCLOBENZAPRINE 10 MG TABLET Take 1 tablet by mouth once d* THIAMINE HCL (VITAMIN B1) 100* Take 1 tablet by mouth once d * OMEPRAZOLE 20 MG CAPSULE,JAMILA* Take 1 capsule by mouth daily * ATORVASTATIN 80 MG TABLET Take 1 tablet by mouth daily * NITROGLYCERIN 0.4 MG SUBLINGU* Dissolve 1 tablet under the t * BUPROPION XL 300 MG 24 HR TAB Take 1 tablet by mouth once d* BUSPIRONE 10 MG TABLET Take 1 tablet by mouth three * ASPIRIN 81 MG TABLET,DELAYED * Take 1 tablet by mouth once d * POLYETHYLENE GLYCOL 3350 17 G* Take 17 g by mouth once daily . MELATONIN 3 MG TABLET Take by mouth. NALTREXONE ER 380 MG INTRAMUS* Inject 380 mg intramuscularly * SEROQUEL ORAL Take 75 mg by mouth. ACETAMINOPHEN 500 MG TABLET Take 1 tablet by mouth every * Problem List As Of Date 10/26/2019 Noted Resolved Moderate hypertension [I10] 08/24/2006 Anxiety and depression [F41.9, F32.9] 02/05/2014 Seasonal allergies [J30.2] 02/05/2014 Renal insufficiency [N28.9] 02/05/2014 History of skull fracture [Z87.81] 02/05/2014 Hypertriglyceridemia [E78.1] 02/05/2014 Chronic alcohol abuse [F10.10] 02/05/2014 Unilateral inguinal hernia without obstruction *07/09/2016 NSTEMI (non-ST elevated myocardial infarction) *11/29/2017 Presence of drug-eluting stent in left circumfl*11/29/2017 Acute right-sided low back pain without sciatic*03/16/2019 Encounter Status:Closed by ROMI ALCANTAR MD on 10/26/19 obsolete on 2019-10 OBSOLETE Refill (LAURENCE) Normal 10-25-2019 [facility] BETHANY MONTALVO ([id number]) 1965 [facility] Date Time Provider Department ([id number]) 10/25/19 KEREN KWON (MAIA) LAURENCE During your visit today, we recorded the following informati on about you: Lorena Leon Ma 10/26/2019 12:21 PM Signed Last office visit: 07/23/19 F/u scheduled: no follow up Lorena Kwon APRN.CNP 10/27/2019 7:50 AM Signed Duplicate request. Keren Kwon APRN.CNP Allergies As of Date: 10/25/2019 Noted Allergy Reaction SUDAFED (PSEUDOEPHEDRINE) 06/26/2016 14 - Other: See Comment s Comments: Prostate infection Date Reviewed: 09/07/2019 Reviewed by: Kerry Patel - Fully Assessed Reason for Visit: Refill Request [94] Visit Diagnoses:Hypertension, essential [I10] GERD without esophagitis [K21.9] Anxiety and depression [F41.9, F32.9] Chronic alcohol abuse [F10.10] Hypertriglyceridemia [E78.1] Acute right-sided low back pain without sciatica [M54.5] Right hip pain [M25.551] Chronic insomnia [F51.04] Prescriptions as of 10/25/2019 Sig: X TRAZODONE 50 MG TABLET Take 1 tablet by mouth at bed* X MELOXICAM 15 MG TABLET Take 1 tablet by mouth once d* FLUTICASONE PROPIONATE 50 MCG* Use 2 Sprays in each nostril * BENZONATATE 100 MG CAPSULE Take 2 capsules by mouth thre* X ALBUTEROL SULFATE HFA 90 MCG/* Inhale 2 Puffs as instructe d * PROBIOTIC COLON SUPPORT 1.5 B* Take by mouth. NITROGLYCERIN 0.4 MG SUBLINGU* Dissolve 1 tablet under the t * X CARVEDILOL 6.25 MG TABLET Take 1 tablet by mouth twice * X LISINOPRIL 10 MG TABLET Take 1 tablet by mouth once d* X FAMOTIDINE 20 MG TABLET Take 1 tablet by mouth twice * X SERTRALINE 50 MG TABLET Take 2 tablets by mouth once * X CYCLOBENZAPRINE 10 MG TABLET Take 1 tablet by mouth once d * X THIAMINE HCL (VITAMIN B1) 100* Take 1 tablet by mouth once d* X OMEPRAZOLE 20 MG CAPSULE,JAMILA* Take 1 capsule by mouth ibis ly* X ATORVASTATIN 80 MG TABLET Take 1 tablet by mouth daily * BUPROPION XL 300 MG 24 HR TAB Take 1 tablet by mouth once d* BUSPIRONE 10 MG TABLET Take 1 tablet by mouth three * POLYETHYLENE GLYCOL 3350 17 G* Take 17 g by mouth once daily . X ASPIRIN 81 MG TABLET,DELAYED * Take 1 tablet by mouth once d* MELATONIN 3 MG TABLET Take by mouth. NALTREXONE ER 380 MG INTRAMUS* Inject 380 mg intramuscularly * SEROQUEL ORAL Take 75 mg by mouth. ACETAMINOPHEN 500 MG TABLET Take 1 tablet by mouth every * Problem List As Of Date 10/25/2019 Noted Resolved Moderate hypertension [I10] 08/24/2006 Anxiety and depression [F41.9, F32.9] 02/05/2014 Seasonal allergies [J30.2] 02/05/2014 Renal insufficiency [N28.9] 02/05/2014 History of skull fracture [Z87.81] 02/05/2014 Hypertriglyceridemia [E78.1] 02/05/2014 Chronic alcohol abuse [F10.10] 02/05/2014 Unilateral inguinal hernia without obstruction *07/09/2016 NSTEMI (non-ST elevated myocardial infarction) *11/29/2017 Presence of drug-eluting stent in left circumfl*11/29/2017 Acute right-sided low back pain without sciatic*03/16/2019 Encounter Status:Closed by KEREN KWON CNP on 10/27/19 OBSOLETE Refill (LAURENCE) Normal 10-25-2019 [facility] BETHANY Madsen ([id number]) 1965 [facility] Date Time Provider Department ([id number]) 10/25/19 KEREN KWON (MAIA) LAURENCE During your visit today, we recorded the following informati on about you: Kiara Mcguire LPN 10/26/2019 12:00 PM Signed Last office Patient phones requesting refills as follows: Pending Prescriptions Disp Refills ASPIRIN 81 MG TABLET,DELAYED RELEASE 90 tablet 3 Sig: Take 1 tablet by mouth once daily. AMBROCIO: No AMLODIPINE 10 MG TABLET 30 tablet 3 Sig: Take 1 tablet by mouth once daily. AMBROCIO: No CARVEDILOL 6.25 MG TABLET 60 tablet 3 Sig: Take 1 tablet by mouth twice daily. AMBROCIO: No LISINOPRIL 10 MG TABLET 30 tablet 5 Sig: Take 1 tablet by mouth once daily. AMBROCIO: No FAMOTIDINE 20 MG TABLET 60 tablet 3 Sig: Take 1 tablet by mouth twice daily as needed. AMBROCIO: No SERTRALINE 50 MG TABLET 30 tablet 5 Sig: Take 2 tablets by mouth once daily. AMBROCIO: No CYCLOBENZAPRINE 10 MG TABLET 90 tablet 1 Sig: Take 1 tablet by mouth once daily. AMBROCIO: No THIAMINE HCL (VITAMIN B1) 100 MG TABLET 30 tablet 3 Sig: Take 1 tablet by mouth once daily. AMBROCIO: No OMEPRAZOLE 20 MG CAPSULE,DELAYED RELEASE 30 capsule 5 Sig: Take 1 capsule by mouth daily before breakfast. 1/2 hr before meal. AMBROCIO: No ATORVASTATIN 80 MG TABLET 30 tablet 5 Sig: Take 1 tablet by mouth daily at bedtime. AMBROCIO: No ALBUTEROL SULFATE HFA 90 MCG/ACTUATION AEROSOL INHALER 1 Inh aler 5 Sig: Inhale 2 Puffs as instructed every 4 hours as needed fo r Wheezing/Shortness of Breath. AMBROCIO: No MELOXICAM 15 MG TABLET 30 tablet 1 Sig: Take 1 tablet by mouth once daily. With food. AMBROCIO: No TRAZODONE 50 MG TABLET 30 tablet 1 Sig: Take 1 tablet by mouth at bedtime as needed. AMBROCIO: No Please review and advise. Kiara Kwon APRN.CNP 10/27/2019 7:50 AM Signed Script sent. Keren Kwon APRN.CNP Allergies As of Date: 10/25/2019 Noted Allergy Reaction SUDAFED (PSEUDOEPHEDRINE) 06/26/2016 14 - Other: See Comment s Comments: Prostate infection Date Reviewed: 09/07/2019 Reviewed by: Kerry Patel - Fully Assessed Reason for Visit: Refill Request [94] Visit Diagnoses:Hypertension, essential [I10] GERD without esophagitis [K21.9] Anxiety and depression [F41.9, F32.9] Chronic alcohol abuse [F10.10] Hypertriglyceridemia [E78.1] Acute right-sided low back pain without sciatica [M54.5] Right hip pain [M25.551] Chronic insomnia [F51.04] Order(s):aspirin, enteric coated (ECOTRIN LOW [facility]) 81 mg EC tabletTake 1 tablet by mouth once daily.Disp: 90 tabletRfl: 3 amLODIPine (NORVASC) 10 mg tabletTake 1 tablet by mouth once daily.Disp: 30 tabletRfl: 3 carvedilol (COREG) 6.25 mg tabletTake 1 tablet by mouth twic e daily.Disp: 60 tabletRfl: 3 lisinopril (ZESTRIL, PRINIVIL) 10 mg tabletTake 1 tablet by mouth once daily.Disp: 30 tabletRfl: 5 famotidine (PEPCID) 20 mg tabletTake 1 tablet by mouth twice daily as needed.Disp: 60 tabletRfl: 3 sertraline (ZOLOFT) 50 mg tabletTake 2 tablets by mouth once daily.Disp: 30 tabletRfl: 5 cyclobenzaprine (FLEXERIL) 10 mg tabletTake 1 tablet by mout h once daily as needed.Disp: 30 tabletRfl: 0 thiamine (VITAMIN B1) 100 mg tabletTake 1 tablet by mouth on ce daily.Disp: 30 tabletRfl: 3 omeprazole (PRILOSEC) 20 mg capsuleTake 1 capsule by mouth d aily before breakfast. 1/2 hr before meal.Disp: 30 capsuleRfl: 5 atorvastatin (LIPITOR) 80 mg tabletTake 1 tablet by mouth da kehinde at bedtime.Disp: 30 tabletRfl: 5 albuterol HFA (VENTOLIN HFA) 90 mcg/actuation inhalerInhale 2 Puffs as instructed every 4 hours as needed for Wheezing/Shortness of Breath.Disp: 1 InhalerRfl: 5 meloxicam (MOBIC) 15 mg tabletTake 1 tablet by mouth once da kehinde. With food.Disp: 30 tabletRfl: 1 traZODone (DESYREL) 50 mg tabletTake 1 tablet by mouth at be dtime as needed.Disp: 30 tabletRfl: 1 Prescriptions as of 10/25/2019 Sig: ASPIRIN 81 MG TABLET,DELAYED * Take 1 tablet by mouth once d * AMLODIPINE 10 MG TABLET Take 1 tablet by mouth once d* CARVEDILOL 6.25 MG TABLET Take 1 tablet by mouth twice * LISINOPRIL 10 MG TABLET Take 1 tablet by mouth once d* FAMOTIDINE 20 MG TABLET Take 1 tablet by mouth twice * SERTRALINE 50 MG TABLET Take 2 tablets by mouth once * CYCLOBENZAPRINE 10 MG TABLET Take 1 tablet by mouth once d* THIAMINE HCL (VITAMIN B1) 100* Take 1 tablet by mouth once d * OMEPRAZOLE 20 MG CAPSULE,JAMILA* Take 1 capsule by mouth daily * ATORVASTATIN 80 MG TABLET Take 1 tablet by mouth daily * ALBUTEROL SULFATE HFA 90 MCG/* Inhale 2 Puffs as instructed * MELOXICAM 15 MG TABLET Take 1 tablet by mouth once d* TRAZODONE 50 MG TABLET Take 1 tablet by mouth at bed* FLUTICASONE PROPIONATE 50 MCG* Use 2 Sprays in each nostril * BENZONATATE 100 MG CAPSULE Take 2 capsules by mouth thre* PROBIOTIC COLON SUPPORT 1.5 B* Take by mouth. NITROGLYCERIN 0.4 MG SUBLINGU* Dissolve 1 tablet under the t * BUPROPION XL 300 MG 24 HR TAB Take 1 tablet by mouth once d* BUSPIRONE 10 MG TABLET Take 1 tablet by mouth three * POLYETHYLENE GLYCOL 3350 17 G* Take 17 g by mouth once daily . MELATONIN 3 MG TABLET Take by mouth. NALTREXONE ER 380 MG INTRAMUS* Inject 380 mg intramuscularly * SEROQUEL ORAL Take 75 mg by mouth. ACETAMINOPHEN 500 MG TABLET Take 1 tablet by mouth every * Problem List As Of Date 10/25/2019 Noted Resolved Moderate hypertension [I10] 08/24/2006 Anxiety and depression [F41.9, F32.9] 02/05/2014 Seasonal allergies [J30.2] 02/05/2014 Renal insufficiency [N28.9] 02/05/2014 History of skull fracture [Z87.81] 02/05/2014 Hypertriglyceridemia [E78.1] 02/05/2014 Chronic alcohol abuse [F10.10] 02/05/2014 Unilateral inguinal hernia without obstruction *07/09/2016 NSTEMI (non-ST elevated myocardial infarction) *11/29/2017 Presence of drug-eluting stent in left circumfl*11/29/2017 Acute right-sided low back pain without sciatic*03/16/2019 Prescriptions ordered this encounter Disp Refills Start End ASPIRIN 81 MG TABLET,DELAYED RELEASE 90 t* 3 10/27/2019 Route: ORAL Sig: Take 1 tablet by mouth once daily. AMLODIPINE 10 MG TABLET 30 t* 3 10/27/2019 11/26/2019 Route: ORAL Sig: Take 1 tablet by mouth once daily. CARVEDILOL 6.25 MG TABLET 60 t* 3 10/27/2019 Route: ORAL Sig: Take 1 tablet by mouth twice daily. LISINOPRIL 10 MG TABLET 30 t* 5 10/27/2019 Route: ORAL Sig: Take 1 tablet by mouth once daily. FAMOTIDINE 20 MG TABLET 60 t* 3 10/27/2019 Route: ORAL Sig: Take 1 tablet by mouth twice daily as needed. SERTRALINE 50 MG TABLET 30 t* 5 10/27/2019 Route: ORAL Sig: Take 2 tablets by mouth once daily. CYCLOBENZAPRINE 10 MG TABLET 30 t* 0 10/27/2019 Route: ORAL Sig: Take 1 tablet by mouth once daily as needed. THIAMINE HCL (VITAMIN B1) 100 MG TAB* 30 t* 3 10/27/2019 Route: ORAL Sig: Take 1 tablet by mouth once daily. OMEPRAZOLE 20 MG CAPSULE,DELAYED REL* 30 c* 5 10/27/2019 Route: ORAL Sig: Take 1 capsule by mouth daily before breakfast. 1/2 hr before meal. ATORVASTATIN 80 MG TABLET 30 t* 5 10/27/2019 Route: ORAL Sig: Take 1 tablet by mouth daily at bedtime. ALBUTEROL SULFATE HFA 90 MCG/ACTUATI* 1 In* 5 10/27/2019 Cmt: Generic or brand: dispense inhaler preferre d by patient/insurance unless AMBROCIO flag is selected. Route: INHALATION Sig: Inhale 2 Puffs as instructed every 4 hours as needed fo r Wheezing/Shortness of Breath. MELOXICAM 15 MG TABLET 30 t* 1 10/27/2019 Route: ORAL Sig: Take 1 tablet by mouth once daily. With food. TRAZODONE 50 MG TABLET 30 t* 1 10/27/2019 Route: ORAL Sig: Take 1 tablet by mouth at bedtime as needed. Medications Discontinued During This Encounter amLODIPine (NORVASC) 10 mg tablet 30 t* 3 06/12/2019 0 Route: ORAL Sig: Take 1 tablet by mouth once daily. Disc: Reason for discontinue is not on file. carvedilol (COREG) 6.25 mg tablet 60 t* 3 06/12/2019 0 Route: ORAL Sig: Take 1 tablet by mouth twice daily. Disc: Reason for discontinue is not on file. lisinopril (ZESTRIL, PRINIVIL) 10 mg* 30 t* 5 06/12/201910/26 Route: ORAL Sig: Take 1 tablet by mouth once daily. Disc: Reason for discontinue is not on file. famotidine (PEPCID) 20 mg tablet 60 t* 3 06/12/2019 10/27/2019 Route: ORAL Sig: Take 1 tablet by mouth twice daily as needed. Disc: Reason for discontinue is not on file. sertraline (ZOLOFT) 50 mg tablet 30 t* 5 06/12/2019 10/27/2019 Route: ORAL Sig: Take 2 tablets by mouth once daily. Disc: Reason for discontinue is not on file. cyclobenzaprine (FLEXERIL) 10 mg tab* 90 t* 1 06/12/201910/26 Route: ORAL Sig: Take 1 tablet by mouth once daily. Disc: Reason for discontinue is not on file. thiamine (VITAMIN B1) 100 mg tablet 30 t* 3 06/12/2019 020 Route: ORAL Sig: Take 1 tablet by mouth once daily. Disc: Reason for discontinue is not on file. omeprazole (PRILOSEC) 20 mg capsule 30 c* 5 06/12/2019 020 Route: ORAL Sig: Take 1 capsule by mouth daily before breakfast. 1/2 hr before meal. Disc: Reason for discontinue is not on file. atorvastatin (LIPITOR) 80 mg tablet 30 t* 5 06/12/2019 020 Route: ORAL Sig: Take 1 tablet by mouth daily at bedtime. Disc: Reason for discontinue is not on file. albuterol HFA (VENTOLIN HFA) 90 mcg/* 1 In* 5 08/19/20192019 Cmt: Generic or brand: dispe nse inhaler preferred by patient/insurance unless AMBROCIO flag is selected. Route: INHALATION Sig: Inhale 2 Puffs as instr ucted every 4 hours as needed for Wheezing/Shortness of Breath. Disc: Reason for discontinue is not on file. meloxicam (MOBIC) 15 mg tablet 30 t* 1 09/11/2019 10/27/2019 Route: ORAL Sig: Take 1 tablet by mouth once daily. With food. Disc: Reason for discontinue is not on file. traZODone (DESYREL) 50 mg tablet 30 t* 1 09/21/2019 10/27/2019 Route: ORAL Sig: Take 1 tablet by mouth at bedtime as needed. Disc: Reason for discontinue is not on file. aspirin, enteric coated (ECOTRIN LOW* 90 t* 3 05/12/201910/26 Route: ORAL Sig: Take 1 tablet by mouth once daily. Disc: Reason for discontinue is not on file. Encounter Status:Closed by KEREN KWON CNP on 10/27/19 obsolete on 2019-08 OBSOLETE Refill (FAMPWS) Normal 09-19-2019 [facility] BETHANY MONTALVO ([id number]) 1965 [facility] Time Provider Department ([id number]) 09/19/19 KEREN KWON (MAIA) FAMPWS During your visit today, we recorded the following informati on about you: Donna Richey LPN 09/21/2019 9:10 AM Signed Patient phones requesting refills as follows: Pending Prescriptions Disp Refills TRAZODONE 50 MG TABLET 30 tablet 1 Sig: Take 1 tablet by mouth at bedtime as needed. AMBROCIO: No Please review and advise. Donan Kwon APRN.CNP 09/21/2019 9:17 AM Signed Script sent. Keren Kwon APRN.CNP Allergies As of Date: 09/19/2019 Noted Allergy Reaction SUDAFED (PSEUDOEPHEDRINE) 06/26/2016 14 - Other: See Comment s Comments: Prostate infection Date Reviewed: 09/07/2019 Reviewed by: Kerry Patel - Fully Assessed Reason for Visit: Refill Request [94] Visit Diagnosis:Chronic insomnia [F51.04] Order(s):traZODone (DESYREL) 50 mg tabletTake 1 tablet by mouth at bedtime as needed.Disp: 30 tabletRfl: 1 Prescriptions as of 09/19/2019 Sig: TRAZODONE 50 MG TABLET Take 1 tablet by mouth at bed* MELOXICAM 15 MG TABLET Take 1 tablet by mouth once d* FLUTICASONE PROPIONATE 50 MCG* Use 2 Sprays in each nostril * BENZONATATE 100 MG CAPSULE Take 2 capsules by mouth thre* ALBUTEROL SULFATE HFA 90 MCG/* Inhale 2 Puffs as instructed * PROBIOTIC COLON SUPPORT 1.5 B* Take by mouth. CARVEDILOL 6.25 MG TABLET Take 1 tablet by mouth twice * LISINOPRIL 10 MG TABLET Take 1 tablet by mouth once d* FAMOTIDINE 20 MG TABLET Take 1 tablet by mouth twice * SERTRALINE 50 MG TABLET Take 2 tablets by mouth once * CYCLOBENZAPRINE 10 MG TABLET Take 1 tablet by mouth once d* THIAMINE HCL (VITAMIN B1) 100* Take 1 tablet by mouth once d * OMEPRAZOLE 20 MG CAPSULE,JAMILA* Take 1 capsule by mouth daily * ATORVASTATIN 80 MG TABLET Take 1 tablet by mouth daily * NITROGLYCERIN 0.4 MG SUBLINGU* Dissolve 1 tablet under the t * BUPROPION XL 300 MG 24 HR TAB Take 1 tablet by mouth once d* BUSPIRONE 10 MG TABLET Take 1 tablet by mouth three * ASPIRIN 81 MG TABLET,DELAYED * Take 1 tablet by mouth once d * POLYETHYLENE GLYCOL 3350 17 G* Take 17 g by mouth once daily . MELATONIN 3 MG TABLET Take by mouth. NALTREXONE ER 380 MG INTRAMUS* Inject 380 mg intramuscularly * SEROQUEL ORAL Take 75 mg by mouth. ACETAMINOPHEN 500 MG TABLET Take 1 tablet by mouth every * Problem List As Of Date 09/19/2019 Noted Resolved Moderate hypertension [I10] 08/24/2006 Anxiety and depression [F41.9, F32.9] 02/05/2014 Seasonal allergies [J30.2] 02/05/2014 Renal insufficiency [N28.9] 02/05/2014 History of skull fracture [Z87.81] 02/05/2014 Hypertriglyceridemia [E78.1] 02/05/2014 Chronic alcohol abuse [F10.10] 02/05/2014 Unilateral inguinal hernia without obstruction *07/09/2016 NSTEMI (non-ST elevated myocardial infarction) *11/29/2017 Presence of drug-eluting stent in left circumfl*11/29/2017 Acute right-sided low back pain without sciatic*03/16/2019 Prescriptions ordered this encounter Disp Refills Start End TRAZODONE 50 MG TABLET 30 t* 1 09/21/2019 Route: ORAL Sig: Take 1 tablet by mouth at bedtime as needed. Medications Discontinued During This Encounter traZODone (DESYREL) 50 mg tablet 30 t* 1 07/23/2019 09/21/2019 Route: ORAL Sig: Take 1 tablet by mouth at bedtime as needed. Disc: Reason for discontinue is not on file. Encounter Status:Closed by KEREN KWON CNP on 09/21/19 progress on 2019-08 PROGRESS HNO ID: [id number] Normal 09-15-2019 [facility] Author: Quyen Mazariegos LPN ([id number]) Service: ? Author Type: ? Type: Progress Notes Filed: 09/15/2019 1:37 PM Note Text: Patient presents for Shingrix vaccine. Denies any problems a t this time. Tolerated injection well. Quyen Mazariegos LPN cnnurse on [facility] Nurse Visit (FAMPWS) Normal 0 [place] [facility] BETHANY MONTALVO ([id number]) 1965 [facility] Date Time Provider Department ([id number]) 09/15/19 1:30 PM ME NURSE FAMPWS During your visit today, we recorded the following informati on about you: Quyen Mazariegos LPN 09/15/2019 1:37 PM Signed Patient presents for Shingrix vaccine. Denies any problems a t this time. Tolerated injection well. Quyen Mazariegos LPN Referring Provider: SELF [[id number]] Allergies As of Date: 09/15/2019 Noted Allergy Reaction SUDAFED (PSEUDOEPHEDRINE) 06/26/2016 14 - Other: See Comment s Comments: Prostate infection Date Reviewed: 09/07/2019 Reviewed by: Kerry Patel - Fully Assessed Reason for Visit: Imm/Inj [58] Primary Visit Diagnosis:Need for vaccination [Z23] Prescriptions as of 09/15/2019 Sig: MELOXICAM 15 MG TABLET Take 1 tablet by mouth once d* FLUTICASONE PROPIONATE 50 MCG* Use 2 Sprays in each nostril * BENZONATATE 100 MG CAPSULE Take 2 capsules by mouth thre* ALBUTEROL SULFATE HFA 90 MCG/* Inhale 2 Puffs as instructed * PROBIOTIC COLON SUPPORT 1.5 B* Take by mouth. TRAZODONE 50 MG TABLET Take 1 tablet by mouth at bed* AMLODIPINE 10 MG TABLET Take 1 tablet by mouth once d* CARVEDILOL 6.25 MG TABLET Take 1 tablet by mouth twice * LISINOPRIL 10 MG TABLET Take 1 tablet by mouth once d* FAMOTIDINE 20 MG TABLET Take 1 tablet by mouth twice * SERTRALINE 50 MG TABLET Take 2 tablets by mouth once * CYCLOBENZAPRINE 10 MG TABLET Take 1 tablet by mouth once d* THIAMINE HCL (VITAMIN B1) 100* Take 1 tablet by mouth once d * OMEPRAZOLE 20 MG CAPSULE,JAMILA* Take 1 capsule by mouth daily * ATORVASTATIN 80 MG TABLET Take 1 tablet by mouth daily * NITROGLYCERIN 0.4 MG SUBLINGU* Dissolve 1 tablet under the t * BUPROPION XL 300 MG 24 HR TAB Take 1 tablet by mouth once d* BUSPIRONE 10 MG TABLET Take 1 tablet by mouth three * ASPIRIN 81 MG TABLET,DELAYED * Take 1 tablet by mouth once d * POLYETHYLENE GLYCOL 3350 17 G* Take 17 g by mouth once daily . MELATONIN 3 MG TABLET Take by mouth. NALTREXONE ER 380 MG INTRAMUS* Inject 380 mg intramuscularly * SEROQUEL ORAL Take 75 mg by mouth. ACETAMINOPHEN 500 MG TABLET Take 1 tablet by mouth every * Problem List As Of Date 09/15/2019 Noted Resolved Moderate hypertension [I10] 08/24/2006 Anxiety and depression [F41.9, F32.9] 02/05/2014 Seasonal allergies [J30.2] 02/05/2014 Renal insufficiency [N28.9] 02/05/2014 History of skull fracture [Z87.81] 02/05/2014 Hypertriglyceridemia [E78.1] 02/05/2014 Chronic alcohol abuse [F10.10] 02/05/2014 Unilateral inguinal hernia without obstruction *07/09/2016 NSTEMI (non-ST elevated myocardial infarction) *11/29/2017 Presence of drug-eluting stent in left circumfl*11/29/2017 Acute right-sided low back pain without sciatic*03/16/2019 Letter Text Encounter Status:Closed by QUYEN MAZARIEGOS LPN on 09/15/19 obsolete on 2019-08 OBSOLETE Refill (FAMPWS) Normal 09-11-2019 [facility] BETHANY MONTALVO ([id number]) 1965 [facility] Date Time Provider Department ([id number]) 09/11/19 KEREN KWON (MAIA) FAMPWS During your visit today, we recorded the following informati on about you: Donna Richey LPN 09/11/2019 4:11 PM Signed Patient phones requesting refills as follows: Pending Prescriptions Disp Refills MELOXICAM 15 MG TABLET 30 tablet 1 Sig: Take 1 tablet by mouth once daily. With food. AMBROCIO: No Please review and advise. Donna Kwon APRN.CNP 09/11/2019 4:31 PM Signed Script sent. Keren Kwon APRN.CNP Allergies As of Date: 09/11/2019 Noted Allergy Reaction SUDAFED (PSEUDOEPHEDRINE) 06/26/2016 14 - Other: See Comment s Comments: Prostate infection Date Reviewed: 09/07/2019 Reviewed by: Kerry Patel - Fully Assessed Reason for Visit: Refill Request [94] Visit Diagnoses:Acute right-sided low back pain without scia benny [M54.5] Right hip pain [M25.551] Order(s):meloxicam (MOBIC) 15 mg tabletT cesar 1 tablet by mouth once daily. With food.Disp: 30 tabletRfl: 1 Prescriptions as of 09/11/2019 Sig: MELOXICAM 15 MG TABLET Take 1 tablet by mouth once d* MUCINEX 600 MG TABLET, EXTEND* Take 2 tablets by mouth twice * FLUTICASONE PROPIONATE 50 MCG* Use 2 Sprays in each nostril * PREDNISONE 20 MG TABLET Take 2 tablets by mouth once * BENZONATATE 100 MG CAPSULE Take 2 capsules by mouth thre* ALBUTEROL SULFATE HFA 90 MCG/* Inhale 2 Puffs as instructed * PROBIOTIC COLON SUPPORT 1.5 B* Take by mouth. TRAZODONE 50 MG TABLET Take 1 tablet by mouth at bed* AMLODIPINE 10 MG TABLET Take 1 tablet by mouth once d* CARVEDILOL 6.25 MG TABLET Take 1 tablet by mouth twice * LISINOPRIL 10 MG TABLET Take 1 tablet by mouth once d* FAMOTIDINE 20 MG TABLET Take 1 tablet by mouth twice * SERTRALINE 50 MG TABLET Take 2 tablets by mouth once * CYCLOBENZAPRINE 10 MG TABLET Take 1 tablet by mouth once d* THIAMINE HCL (VITAMIN B1) 100* Take 1 tablet by mouth once d * OMEPRAZOLE 20 MG CAPSULE,JAMILA* Take 1 capsule by mouth daily * ATORVASTATIN 80 MG TABLET Take 1 tablet by mouth daily * NITROGLYCERIN 0.4 MG SUBLINGU* Dissolve 1 tablet under the t * BUPROPION XL 300 MG 24 HR TAB Take 1 tablet by mouth once d* BUSPIRONE 10 MG TABLET Take 1 tablet by mouth three * ASPIRIN 81 MG TABLET,DELAYED * Take 1 tablet by mouth once d * POLYETHYLENE GLYCOL 3350 17 G* Take 17 g by mouth once daily . MELATONIN 3 MG TABLET Take by mouth. NALTREXONE ER 380 MG INTRAMUS* Inject 380 mg intramuscularly * SEROQUEL ORAL Take 75 mg by mouth. ACETAMINOPHEN 500 MG TABLET Take 1 tablet by mouth every * Problem List As Of Date 09/11/2019 Noted Resolved Moderate hypertension [I10] 08/24/2006 Anxiety and depression [F41.9, F32.9] 02/05/2014 Seasonal allergies [J30.2] 02/05/2014 Renal insufficiency [N28.9] 02/05/2014 History of skull fracture [Z87.81] 02/05/2014 Hypertriglyceridemia [E78.1] 02/05/2014 Chronic alcohol abuse [F10.10] 02/05/2014 Unilateral inguinal hernia without obstruction *07/09/2016 NSTEMI (non-ST elevated myocardial infarction) *11/29/2017 Presence of drug-eluting stent in left circumfl*11/29/2017 Acute right-sided low back pain without sciatic*03/16/2019 Prescriptions ordered this encounter Disp Refills Start End MELOXICAM 15 MG TABLET 30 t* 1 09/11/2019 Route: ORAL Sig: Take 1 tablet by mouth once daily. With food. Medications Discontinued During This Encounter meloxicam (MOBIC) 15 mg tablet 30 t* 1 06/12/2019 09/11/2019 Route: ORAL Sig: Take 1 tablet by mouth once daily. With food. Disc: Reason for discontinue is not on file. Encounter Status:Closed by KEREN KWON CNP on 09/11/19 cnpn on 2019-09-10 MAIAN Telephone (FAMPWS) Normal 09-10-2019 [place] [facility] BETHANY MONTALVO ([id number]) 1965 [facility] Date Time Provider Department ([id number]) 09/10/19 KEREN KWON (MAIA) FAMWS During your visit today, we recorded the following informati on about you: Quyen Mazariegos LPN 09/10/2019 9:43 AM Signed Patient scheduled for nurse visit 09/15/2019 to receive Shingrix vaccine. Please place order at this time. Quyen Kwon APRN.CNP 09/10/2019 3:02 PM Signed Order placed. Keren Kwon APRN.CNP Allergies As of Date: 09/10/2019 Noted Allergy Reaction SUDAFED (PSEUDOEPHEDRINE) 06/26/2016 14 - Other: See Comment s Comments: Prostate infection Date Reviewed: 09/07/2019 Reviewed by: Kerry Patel - Fully Assessed Reason for Visit: Orders [681] Primary Visit Diagnosis:Need for vaccination [Z23] Order(s):ZOSTER VACC RECOMBINANT,IM [[id number]] Order #: [id number] Prescriptions as of 09/10/2019 Sig: MUCINEX 600 MG TABLET, EXTEND* Take 2 tablets by mouth twice * FLUTICASONE PROPIONATE 50 MCG* Use 2 Sprays in each nostril * PREDNISONE 20 MG TABLET Take 2 tablets by mouth once * BENZONATATE 100 MG CAPSULE Take 2 capsules by mouth thre* X ALBUTEROL SULFATE HFA 90 MCG/* Inhale 2 Puffs as instructe d * PROBIOTIC COLON SUPPORT 1.5 B* Take by mouth. X TRAZODONE 50 MG TABLET Take 1 tablet by mouth at bed* NITROGLYCERIN 0.4 MG SUBLINGU* Dissolve 1 tablet under the t * X AMLODIPINE 10 MG TABLET Take 1 tablet by mouth once d* X CARVEDILOL 6.25 MG TABLET Take 1 tablet by mouth twice * X LISINOPRIL 10 MG TABLET Take 1 tablet by mouth once d* X FAMOTIDINE 20 MG TABLET Take 1 tablet by mouth twice * X MELOXICAM 15 MG TABLET Take 1 tablet by mouth once d* X SERTRALINE 50 MG TABLET Take 2 tablets by mouth once * X CYCLOBENZAPRINE 10 MG TABLET Take 1 tablet by mouth once d * X THIAMINE HCL (VITAMIN B1) 100* Take 1 tablet by mouth once d* X OMEPRAZOLE 20 MG CAPSULE,JAMILA* Take 1 capsule by mouth ibis ly* X ATORVASTATIN 80 MG TABLET Take 1 tablet by mouth daily * BUPROPION XL 300 MG 24 HR TAB Take 1 tablet by mouth once d* X BUSPIRONE 10 MG TABLET Take 1 tablet by mouth three * POLYETHYLENE GLYCOL 3350 17 G* Take 17 g by mouth once daily . X ASPIRIN 81 MG TABLET,DELAYED * Take 1 tablet by mouth once d* MELATONIN 3 MG TABLET Take by mouth. NALTREXONE ER 380 MG INTRAMUS* Inject 380 mg intramuscularly * X SEROQUEL ORAL Take 75 mg by mouth. ACETAMINOPHEN 500 MG TABLET Take 1 tablet by mouth every * Problem List As Of Date 09/10/2019 Noted Resolved Moderate hypertension [I10] 08/24/2006 Anxiety and depression [F41.9, F32.9] 02/05/2014 Seasonal allergies [J30.2] 02/05/2014 Renal insufficiency [N28.9] 02/05/2014 History of skull fracture [Z87.81] 02/05/2014 Hypertriglyceridemia [E78.1] 02/05/2014 Chronic alcohol abuse [F10.10] 02/05/2014 Unilateral inguinal hernia without obstruction *07/09/2016 NSTEMI (non-ST elevated myocardial infarction) *11/29/2017 Presence of drug-eluting stent in left circumfl*11/29/2017 Acute right-sided low back pain without sciatic*03/16/2019 Encounter Status:Closed by QUYEN MAZARIEGOS LPN on 02/25/20 progress on 2019-08 PROGRESS HNO ID: [id number] Normal 09-07-2019 [facility] Author: Kerry Patel [place] ([id number]) Service: ? Author Type: Nurse Practitioner Type: Progress Notes Filed: 09/07/2019 3:39 PM Note Text: Subjective HPI Bethany Montalvo is a 53 year old male who presents with sin us congestion, cough, chest congestion, myalgia, and headaches for the last 4 days. Cough is mostly dry. History of bronchitis and respiratory substan ce abuse. He has taken coricidin as needed. Also has an albuterol inhaler to use as needed which seems to help his symptoms. Denies shortness of breath, chest pain, or fever. Review of Systems Constitutional: Positive for malaise/fatigue. Negative for c hills and fever. HENT: Positive for congestion and sinus pain. Negative for e ar pain and sore throat. Respiratory: Positive for cough. Negative for sputum product ion, shortness of breath and wheezing. Cardiovascular: Negative for chest pain. Gastrointestinal: Negative for diarrhea and vomiting. Skin: Negative for itching and rash. Neurological: Positive for headaches. BP 122/80 Pulse 100 Temp 36.4 ?C (97.5 ?F) (Tympanic) Resp 16 Wt 102.6 kg (226 lb 3.2 oz) SpO2 98% BMI 32.46 kg/m? PAST MEDICAL HISTORY Diagnosis Date - Alcohol abuse - CSF abnormal - GERD (gastroesophageal reflux disease) - HTN (hypertension) - Syncope PAST SURGICAL HISTORY Procedure Laterality Date - COLONOSCOP W/ OR W/O BRSH SPEC 01/12/2019 Colonoscopy - COLONOSCOPY BX SINGLE/MULTI 01/12/2019 - CRANIO/MAXILLO-FACIAL SURGERY 1989 orbital blow out fracture/ [place] - EGD W/O OR W/BRUSH/WASH 01/12/2019 EGD - PTCA SNGL VSSL LC 11/21/2017 JUSTIN left circ - TONSILLECTOMY HX - TREAT SHOULDERBLADE FRACTURE - UPPER GI ENDOSCPY, W/BIOPSY, SNGL OR MULT 01/12/2019 ALLERGIES Sudafed [Pseudoephedrine] MEDICATIONS albuterol HFA (VENTOLIN HFA) 90 mcg/actuation inhaler Inhale 2 Puffs as instructed every 4 hours as needed for Wheezing/Shortness of Breath. L. gasseri-B. bifidum-B longum (PROBIOTIC COLON SUPPORT) 1.5 billion cell cap Take by mouth. traZODone (DESYREL) 50 mg tablet Take 1 tablet by mouth at b edtime as needed. amLODIPine (NORVASC) 10 mg tablet Take 1 tablet by mouth onc e daily. carvedilol (COREG) 6.25 mg tablet Take 1 tablet by mouth twi ce daily. lisinopril (ZESTRIL, PRINIVIL) 10 mg tablet Take 1 tablet by mouth once daily. famotidine (PEPCID) 20 mg tablet Take 1 tablet by mouth twic e daily as needed. meloxicam (MOBIC) 15 mg tablet Take 1 tablet by mouth once d aily. With food. sertraline (ZOLOFT) 50 mg tablet Take 2 tablets by mouth onc e daily. cyclobenzaprine (FLEXERIL) 10 mg tablet Take 1 tablet by rita th once daily. thiamine (VITAMIN B1) 100 mg tablet Take 1 tablet by mouth o nce daily. omeprazole (PRILOSEC) 20 mg capsule Take 1 capsule by mouth daily before breakfast. 1/2 hr before meal. atorvastatin (LIPITOR) 80 mg tablet Take 1 tablet by mouth d aily at bedtime. nitroglycerin sublingual (NITROQUICK) 0.4 mg SL tablet Disso lve 1 tablet under the tongue as needed. FOR CHEST PAIN. IF NO RELIEF KRISHNA L 911 buPROPion XL (WELLBUTRIN XL) 300 mg 24 hr tablet Take 1 tabl et by mouth once daily. busPIRone (BUSPAR) 10 mg tablet Take 1 tablet by mouth three times daily. aspirin, enteric coated (ECOTRIN LOW STRENGTH) 81 mg EC tabl et Take 1 tablet by mouth once daily. polyethylene glycol 3350 (MIRALAX) 17 gram/dose powder Take 17 g by mouth once daily. melatonin 3 mg tablet Take by mouth. naltrexone ER (VIVITROL) 380 mg injection Inject 380 mg intr amuscularly one time only. quetiapine fumarate (SEROQUEL ORAL) Take 75 mg by mouth. acetaminophen (TYLENOL EXTRA STRENGTH) 500 mg tablet Take 1 tablet by mouth every 6 hours as needed for Pain. FAMILY HISTORY Problem Relation Age of Onset - Psychiatry Mother - Heart Mother ME 53 - Heart Father ME 51 - Colon Cancer Father Social History Tobacco Use - Smoking status: Former Smoker Packs/day: 0.50 Start date: 12/30/1983 Last attempt to quit: 05/30/2014 Years since quittin.2 - Smokeless tobacco: Former User Types: Snuff - Tobacco comment: Very few, very infrequently. Father smoke d in childhood home. Substance Use Topics - Alcohol use: Yes Alcohol/week: 210.0 standard drinks Types: 84 Cans of Beer (12oz) per week Comment: Binge drinking at times, worse with stress. - Drug use: Yes Comment: Occassional marijuana, 03/2014. Huffed spray paint and glue briefly, ages 8-9. Whippets in mid to late teens. TO Objective Physical Exam Constitutional: He is oriented to person, place, and time an d well-developed, well-nourished, and in no distress. He appea rs not lethargic. He does not have a sickly appearance. HENT: Head: Normocephalic and atraumatic. Right Ear: Tympanic membrane is not erythematous and not bul ging. No middle ear effusion. Left Ear: Tympanic membrane is bulging. Tympanic membrane is not erythematous. No middle ear effusion. Nose: Mucosal edema and rhinorrhea present. Right sinus exhi bits frontal sinus tenderness. Right sinus exhibits no maxillary sinus te nderness. Left sinus exhibits frontal sinus tenderness. Left sinus exhibits no maxillary sinus tenderness. Mouth/Throat: Mucous membranes are not pale, not dry and not cyanotic. No posterior oropharyngeal edema or posterior oropharyngeal ruperto thema. Eyes: Conjunctivae are normal. Cardiovascular: Normal rate, regular rhythm, normal heart so unds and intact distal pulses. Exam reveals no gallop and no friction rub. No murmur heard. Pulmonary/Chest: Effort normal and breath sounds normal. No respiratory distress. He has no wheezes. He has no rales. He exhibits no tenderness. Musculoskeletal: General: No edema. Lymphadenopathy: He has no cervical adenopathy. Neurological: He is alert and oriented to person, place, and time. He appears not lethargic. Gait normal. Skin: Skin is warm and dry. No rash noted. He is not diaphor etic. ASSESSMENT/PLAN: 1. Viral URI with cough - ICD9: 465.9, ICD10: J06.9, B97.89 - Discussed viral etiology and rationale for treatment. - Symptomatic treatment with prn analgesia - Supportive care with fluids and rest - low suspicion for influenza given lack of fever - MUCINEX 600 MG TABLET, EXTENDED RELEASE - FLUTICASONE PROPIONATE 50 MCG/ACTUATION NASAL SPRAY,SUSPEN KALPANA - PREDNISONE 20 MG TABLET - BENZONATATE 100 MG CAPSULE Patient understands if he/she develops any shortness of carlene th, chest pain, or persistent fever, they should be taken to the ER im mediately or call 911. All of the above discussed with the patient in detail. Maria Victoria loza is in agreement with the above plan. Treatment and plan of care di scussed including course of treatment, possible medication side effe cts, and what to watch for in regards to worsening signs and symptoms. All questions addressed. Kerry Patel APRN.MAIA gorman on 2019-09-07 CNOV Office Visit (UCWSTR) Normal 09-07-[address] [place] [address] [facility] BETHANY MONTALVO ([id number]) 1965 [facility] Date Time Provider Department ([id number]) 09/07/19 2:30 PM KERRY PATEL WS During your visit today, we recorded the following informati on about you: Temperature Pulse Respiration Blood pressure 97.5 degrees 100/minute 16/minute 122/80 Weight 102.6 kg Kerry Patel APRN.TRAWL NET MAKER 09/07/2019 3:39 PM Signed Subjective HPI Bethanysha Montalvo is a 53 year old male who presents with sin us congestion, cough, chest congestion, myalgia, and headaches for the last 4 days. Cough is mostly dry. History of bronc hitis and respiratory substance abuse. He has taken coricidin as needed. Also cool s an albuterol inhaler to use as needed which seems to help his symptoms. Denies shortness of breath, chest pain , or fever. Review of Systems Constitutional: Positive for malaise/fatigue. Negative for chills and fever. HENT: Positive for congestion and sinus pain. Negative for ear pain and sore throat. Respiratory: Positive for cough. Negative for sp utum production, shortness of breath and wheezing. Cardiovascular: Negative for chest pain. Gastrointestinal: Negative for diarrhea and vomiting. Skin: Negative for itching and rash. Neurological: Positive for headaches. BP 122/80 Pulse 100 Temp 36.4 ?C (97.5 ?F) (Tympanic) Resp 16 Wt 102.6 kg (226 lb 3.2 oz) SpO2 98% BMI 32.46 kg/m? PAST MEDICAL HISTORY Diagnosis Date - Alcohol abuse - CSF abnormal - GERD (gastroesophageal reflux disease) - HTN (hypertension) - Syncope PAST SURGICAL HISTORY Procedure Laterality Date - COLONOSCOP W/ OR W/O BRSH SPEC 01/12/2019 Colonoscopy - COLONOSCOPY BX SINGLE/MULTI 01/12/2019 - CRANIO/MAXILLO-FACIAL SURGERY 1989 orbital blow out fracture/ [place] - EGD W/O OR W/BRUSH/WASH 01/12/2019 EGD - PTCA SNGL VSSL LC 11/21/2017 JUSTIN left circ - TONSILLECTOMY HX - TREAT SHOULDERBLADE FRACTURE - UPPER GI ENDOSCPY, W/BIOPSY, SNGL OR MULT 01/12/2019 ALLERGIES Sudafed [Pseudoephedrine] MEDICATIONS albuterol HFA (VENTOLIN HFA) 90 mcg/actuation inhaler Inhale 2 Puffs as instructed every 4 hours as needed for Wheezing/Shortness of Breath. L. gasseri-B. bifidum-B longum (PROBIOTIC COLON SUPPORT) 1.5 billion cell cap Take by mouth. traZODone (DESYREL) 50 mg tablet Take 1 tablet b y mouth at bedtime as needed. amLODIPine (NORVASC) 10 mg tablet Take 1 tablet by mouth onc e daily. carvedilol (COREG) 6.25 mg tablet Take 1 tablet by mouth twi ce daily. lisinopril (ZESTRIL, PRINIVIL) 10 mg tab let Take 1 tablet by mouth once daily. famotidine (PEPCID) 20 mg tablet Take 1 tablet by mouth twice daily as needed. meloxicam (MOBIC) 15 mg tablet Take 1 tablet by mouth once daily. With food. sertraline (ZOLOFT) 50 mg tablet Take 2 tablets by mouth onc e daily. cyclobenzaprine (FLEXERIL) 10 mg tablet Take 1 tablet by rita th once daily. thiamine (VITAMIN B1) 100 mg tablet Take 1 tablet by mouth o nce daily. omeprazole (PRILOSEC) 20 mg capsule Take 1 capsule by mouth daily before breakfast. 1/2 hr before meal. atorvastatin (LIPITOR) 80 mg tablet Take 1 tablet by m outh daily at bedtime. nitroglycerin sublingual (NITROQUICK) 0. 4 mg SL tablet Dissolve 1 tablet under the tongue as needed. FOR CHEST PAIN. IF NO RELIEF CALL 911 buPROPion XL (WELLBUTRIN XL) 300 mg 24 hr tablet Take 1 tablet by mouth once daily. busPIRone (BUSPAR) 10 mg tablet Take 1 tablet by mouth three times daily. aspirin, enteric coated (ECO DAVID LOW STRENGTH) 81 mg EC tablet Take 1 tablet by mouth once daily. polyethylene glycol 3350 (MIRALAX) 17 gr am/dose powder Take 17 g by mouth once daily. melatonin 3 mg tablet Take by mouth. naltrexone ER (VIVITROL) 380 mg injection Inject 380 mg in tramuscularly one time only. quetiapine fumarate (SEROQUEL ORAL) Take 75 mg by mouth. acetaminophen (TYLENOL EXTRA STRENGTH) 500 mg tablet Take 1 tablet by mouth every 6 hours as needed for Pain. FAMILY HISTORY Problem Relation Age of Onset - Psychiatry Mother - Heart Mother ME 53 - Heart Father ME 51 - Colon Cancer Father Social History Tobacco Use - Smoking status: Former Smoker Packs/day: 0.50 Start date: 12/30/1983 Last attempt to quit: 05/30/2014 Years since quittin.2 - Smokeless tobacco: Former User Types: Snuff - Tobacco comment: Very few, very infrequently. Father smoke d in childhood home. Substance Use Topics - Alcohol use: Yes Alcohol/week: 210.0 standard drinks Types: 84 Cans of Beer (12oz) per week Comment: Binge drinking at times, worse with stress. - Drug use: Yes Comment: Occassional marijuana, 03/2014. Huffed spray paint and glue briefly, ages 7-9. Whippets in mid to late teens. TO Objective Physical Exam Constitutional: He is oriented to person, place, and time and well-developed, well-nourished, and in no distress. He a ppears not lethargic. He does not have a sickly appearance. HENT: Head: Normocephalic and atraumatic. Right Ear: Tympanic membrane is not erythematous and not bulging. No middle ear effusion. Left Ear: Tympanic membrane is bulging. Tympanic membrane is not erythematous. No middle ear effusion. Nose: Mucosal edema and rhinorrhea prese nt. Right sinus exhibits frontal sinus tenderness. Right sinus exhibits no maxillary sinus tenderne ss. Left sinus exhibits frontal sinus tenderness. Left sinus exhibits no ma xillary sinus tenderness. Mouth/Throat: Mucous membranes are not pale, not dry and not cyanotic. No posterior oropharyngeal edema or posterior oropharyngeal ruperto thema. Eyes: Conjunctivae are normal. Cardiovascular: Normal rate, regular rhythm, normal heart sounds and intact distal pulses. Exam reveals no gallop and no friction rub. No murmur heard. Pulmonary/Chest: Effort normal and breath sounds normal. No respiratory distress. He has no wheezes. He has no rales. He exhibits no tenderness. Musculoskeletal: General: No edema. Lymphadenopathy: He has no cervical adenopathy. Neurological: He is alert and oriented to person , place, and time. He appears not lethargic. Gait normal. Skin: Skin is warm and dry. No rash noted. He is not diaphor etic. ASSESSMENT/PLAN: 1. Viral URI with cough - ICD9: 465.9, ICD10: J06.9, B97.89 - Discussed viral etiology and rationale for treatment. - Symptomatic treatment with prn analgesia - Supportive care with fluids and rest - low suspicion for influenza given lack of fever - MUCINEX 600 MG TABLET, EXTENDED RELEASE - FLUTICASONE PROPIONATE 50 MCG/ACTUATION NASAL SPRAY,SUSPEN KALPANA - PREDNISONE 20 MG TABLET - BENZONATATE 100 MG CAPSULE Patient understands if he/she develops a ny shortness of breath, chest pain, or persistent fever, they should be taken to the ER immediately or call 911. All of the above discussed with the pierce ent in detail. Patient is in agreement with the above plan. Treatment and plan of care discussed including course of treatment, possible medication side effects, and what to watch for in regards to worsening signs and symptoms. All questions addressed. VENKAT Lau APRN.CNP 09/07/2019 3:31 PM Signed RESPIRATORY INFECTION GENERAL INFORMATION: An upper respiratory tract infection, or cold, is a viral in fection of the airway passages. It can be caused by any one of almost 200 different viruses. Common symptoms include a runny or stuffy nose, sneezing, watery eyes, sore throat, cough, and slight fever. Colds are contagious, especially during the first 3 or 4 days and cannot be cured by antibiotics. They a re spread by coughs, sneezes, and direct contact, especially hand-to-cool nd. A respiratory tract infection usually clears up in a few days, but s ome people may be sick for a week or two. INSTRUCTIONS: 1. Be careful not to blow yo ur nose too hard because this may cause a nosebleed. 2. Use a cool-mist humidifier (vaporizer) to inc rease air moisture. This will make it easier for you to breathe. Do not use hot steam. 3. Rest as much as possible and get plenty of sleep. 4. Wash your hands often, especially after you blow your nos e. Cover your mouth and nose with a tissue when you sneeze or cough. 5. Drink plenty of clear fluids (8 glasses a day ) such as water, fruit juice, tea, clear soups, and carbonated beverages. CONTACT YOUR DOCTOR IF : 1. Your fever lasts more than 3 days. 2. You have a sore throat that gets worse or you see white or yellow spots in your throat. 3. Your cough gets worse or lasts more than 10 days. 4. You develop a rash anywhere on your skin. 5. You have an earache or a headache. 6. You have thick greenish or yellowish discharge from your nose. RETURN IMMEDIATELY IF: 1. You cough up thick yellow, green, amato, or bloody sputum. 2. You have difficulty breathing, pain in your chest, or y our skin or nails look amato or blue. 3. You have shaking chills or a temperature over 102 F (39 C ). Referring Provider: SELF [200] Allergies As of Date: 09/07/2019 Noted Allergy Reaction SUDAFED (PSEUDOEPHEDRINE) 06/26/2016 14 - Other: See Comment s Comments: Prostate infection Date Reviewed: 09/07/2019 Reviewed by: Kerry Patel - Fully Assessed Reason for Visit: Flu Like Symptoms [267] Cmt: cough, congestion, sinus, bod yaches and COOL x 4 days Primary Visit Diagnosis:Viral URI with cough [J06.9, B97.89] Order(s):guaiFENesin (MUCINEX) 600 mg 12 hr tabletTake 2 tab lets by mouth twice daily for 5 days.Disp: 20 tabletRfl: 0 fluticasone (FLONASE) 50 mcg/actuation nasal sprayUse 2 Spra ys in each nostril once daily. Rinse mouth after use.Disp: 1 Bottl eRfl: 0 predniSONE (DELTASONE) 20 mg tabletTake 2 tablets by mouth o nce daily for 5 days. Take daily with food.Disp: 10 tabletRfl: 0 benzonatate (TESSALON PERLE) 100 mg capsuleTake 2 capsules b y mouth three times daily as needed.Disp: 42 capsuleRfl: 0 Prescriptions as of 09/07/2019 Sig: ALBUTEROL SULFATE HFA 90 MCG/* Inhale 2 Puffs as instructed * PROBIOTIC COLON SUPPORT 1.5 B* Take by mouth. TRAZODONE 50 MG TABLET Take 1 tablet by mouth at bed* AMLODIPINE 10 MG TABLET Take 1 tablet by mouth once d* CARVEDILOL 6.25 MG TABLET Take 1 tablet by mouth twice * LISINOPRIL 10 MG TABLET Take 1 tablet by mouth once d* FAMOTIDINE 20 MG TABLET Take 1 tablet by mouth twice * MELOXICAM 15 MG TABLET Take 1 tablet by mouth once d* SERTRALINE 50 MG TABLET Take 2 tablets by mouth once * CYCLOBENZAPRINE 10 MG TABLET Take 1 tablet by mouth once d* THIAMINE HCL (VITAMIN B1) 100* Take 1 tablet by mouth once d * OMEPRAZOLE 20 MG CAPSULE,JAMILA* Take 1 capsule by mouth daily * ATORVASTATIN 80 MG TABLET Take 1 tablet by mouth daily * NITROGLYCERIN 0.4 MG SUBLINGU* Dissolve 1 tablet under the t * BUPROPION XL 300 MG 24 HR TAB Take 1 tablet by mouth once d* BUSPIRONE 10 MG TABLET Take 1 tablet by mouth three * ASPIRIN 81 MG TABLET,DELAYED * Take 1 tablet by mouth once d * POLYETHYLENE GLYCOL 3350 17 G* Take 17 g by mouth once daily . MELATONIN 3 MG TABLET Take by mouth. NALTREXONE ER 380 MG INTRAMUS* Inject 380 mg intramuscularly * SEROQUEL ORAL Take 75 mg by mouth. ACETAMINOPHEN 500 MG TABLET Take 1 tablet by mouth every * MUCINEX 600 MG TABLET, EXTEND* Take 2 tablets by mouth twice * FLUTICASONE PROPIONATE 50 MCG* Use 2 Sprays in each nostril * PREDNISONE 20 MG TABLET Take 2 tablets by mouth once * BENZONATATE 100 MG CAPSULE Take 2 capsules by mouth thre* Problem List As Of Date 09/07/2019 Noted Resolved Moderate hypertension [I10] 08/24/2006 Anxiety and depression [F41.9, F32.9] 02/05/2014 Seasonal allergies [J30.2] 02/05/2014 Renal insufficiency [N28.9] 02/05/2014 History of skull fracture [Z87.81] 02/05/2014 Hypertriglyceridemia [E78.1] 02/05/2014 Chronic alcohol abuse [F10.10] 02/05/2014 Unilateral inguinal hernia without obstruction *07/09/2016 NSTEMI (non-ST elevated myocardial infarction) *11/29/2017 Presence of drug-eluting stent in left circumfl*11/29/2017 Acute right-sided low back pain without sciatic*03/16/2019 Other instructions from your clinician: RESPIRATORY INFECTION GENERAL INFORMATION: An upper respiratory tract infection, or cold, is a viral in fection of the airway passages. It can be caused by any one of almost 200 d ifferent viruses. Common symptoms include a runny or stuffy nose, sne ezing, watery eyes, sore throat, cough, and slight fever. Colds are contag ious, especially during the first 3 or 4 days and cannot be cured by antibiotics. They are spread by coughs, sneezes, and direct contact, especially [id number]-my-mhxn. A respiratory tract infection usual ly clears up in a few days, but some people may be sick for a week or two . INSTRUCTIONS: 1. Be careful not to blow your nose too hard because this ma y cause a nosebleed. 2. Use a cool-mist humidifier (vaporizer) to increase air mo isture. This will make it easier for you to breathe. Do not use hot steam . 3. Rest as much as possible and get plenty of sleep. 4. Wash your hands often, especially after you blow your nos e. Cover your mouth and nose with a tissue when you sneeze or cough. 5. Drink plenty of clear fluids (8 glasses a day) such as wa ter, fruit juice, tea, clear soups, and carbonated beverages. CONTACT YOUR DOCTOR IF : 1. Your fever lasts more than 3 days. 2. You have a sore throat that gets worse or you see white o r yellow spots in your throat. 3. Your cough gets worse or lasts more than 10 days. 4. You develop a rash anywhere on your skin. 5. You have an earache or a headache. 6. You have thick greenish or yellowish discharge from your nose. RETURN IMMEDIATELY IF: 1. You cough up thick yellow, green, amato, or bloody sputum. 2. You have difficulty breathing, pain in your chest, or you r skin or nails look amato or blue. 3. You have shaking chills or a temperature over 102 F (39 C ). Prescriptions ordered this encounter Disp Refills Start End MUCINEX 600 MG TABLET, EXTENDED RELE* 20 t* 0 09/07/2019 Route: ORAL Sig: Take 2 tablets by mouth twice daily for 5 days. FLUTICASONE PROPIONATE 50 MCG/ACTUAT* 1 Florentin* 0 09/07/2019 Route: EACH NOSTRIL Sig: Use 2 Sprays in each nostril once daily. Rinse mouth af ter use. PREDNISONE 20 MG TABLET 10 t* 0 09/07/2019 09/12/2019 Route: ORAL Sig: Take 2 tablets by mouth once daily for 5 days. Take ibis ly with food. BENZONATATE 100 MG CAPSULE 42 c* 0 09/07/2019 Route: ORAL Sig: Take 2 capsules by mouth three times daily as needed. Letter Text Encounter Status:Closed by KERRY PATEL APRN.CNP on 09/07 obsolete on 2020-01 -29 OBSOLETE Refill (FAMPWS) Normal 08-19-2019 Efren li [facility] SELVINBETHANY M ([id number]) 1965 [facility] Time Provider Department ([id number]) 08/19/19 KEREN KWON (MAIA) FAMPWS During your visit today, we recorded the following informati on about you: Veronica Ventura Ma 08/19/2019 11:51 AM Signed Patient last visit with PCP 07/23/19 Follow up appointment scheduled no future appointment Veronica Kwon APRN.CNP 08/19/2019 3:32 PM Signed Script sent. Keren Kwon APRN.CNP Allergies As of Date: 08/19/2019 Noted Allergy Reaction SUDAFED (PSEUDOEPHEDRINE) 06/26/2016 14 - Other: See Comment s Comments: Prostate infection Date Reviewed: 07/23/2019 Reviewed by: Donna Richey LPN - Fully Assessed Reason for Visit: Refill Request [94] Order(s):albuterol HFA (VENTOLIN HFA) 90 mcg/actuation inhalerInhale 2 Puffs as instructed every 4 hours as needed for Wheezing/Shortness of Breath.Disp: 1 InhalerRfl: 5 Prescriptions as of 08/19/2019 Sig: ALBUTEROL SULFATE HFA 90 MCG/* Inhale 2 Puffs as instructed * PROBIOTIC COLON SUPPORT 1.5 B* Take by mouth. TRAZODONE 50 MG TABLET Take 1 tablet by mouth at bed* AMLODIPINE 10 MG TABLET Take 1 tablet by mouth once d* CARVEDILOL 6.25 MG TABLET Take 1 tablet by mouth twice * LISINOPRIL 10 MG TABLET Take 1 tablet by mouth once d* FAMOTIDINE 20 MG TABLET Take 1 tablet by mouth twice * MELOXICAM 15 MG TABLET Take 1 tablet by mouth once d* SERTRALINE 50 MG TABLET Take 2 tablets by mouth once * CYCLOBENZAPRINE 10 MG TABLET Take 1 tablet by mouth once d* THIAMINE HCL (VITAMIN B1) 100* Take 1 tablet by mouth once d * OMEPRAZOLE 20 MG CAPSULE,JAMILA* Take 1 capsule by mouth daily * ATORVASTATIN 80 MG TABLET Take 1 tablet by mouth daily * NITROGLYCERIN 0.4 MG SUBLINGU* Dissolve 1 tablet under the t * BUPROPION XL 300 MG 24 HR TAB Take 1 tablet by mouth once d* BUSPIRONE 10 MG TABLET Take 1 tablet by mouth three * ASPIRIN 81 MG TABLET,DELAYED * Take 1 tablet by mouth once d * POLYETHYLENE GLYCOL 3350 17 G* Take 17 g by mouth once daily . MELATONIN 3 MG TABLET Take by mouth. NALTREXONE ER 380 MG INTRAMUS* Inject 380 mg intramuscularly * SEROQUEL ORAL Take 75 mg by mouth. ACETAMINOPHEN 500 MG TABLET Take 1 tablet by mouth every * Problem List As Of Date 08/19/2019 Noted Resolved Moderate hypertension [I10] 08/24/2006 Anxiety and depression [F41.9, F32.9] 02/05/2014 Seasonal allergies [J30.2] 02/05/2014 Renal insufficiency [N28.9] 02/05/2014 History of skull fracture [Z87.81] 02/05/2014 Hypertriglyceridemia [E78.1] 02/05/2014 Chronic alcohol abuse [F10.10] 02/05/2014 Unilateral inguinal hernia without obstruction *07/09/2016 NSTEMI (non-ST elevated myocardial infarction) *11/29/2017 Presence of drug-eluting stent in left circumfl*11/29/2017 Acute right-sided low back pain without sciatic*03/16/2019 Prescriptions ordered this encounter Disp Refills Start End ALBUTEROL SULFATE HFA 90 MCG/ACTUATI* 1 In* 5 08/19/2019 Cmt: Generic or brand: dispense inhaler preferre d by patient/insurance unless AMBROCIO flag is selected. Route: INHALATION Sig: Inhale 2 Puffs as instructed every 4 hours as needed fo r Wheezing/Shortness of Breath. Medications Discontinued During This Encounter albuterol HFA (VENTOLIN HFA) 90 mcg/* 1 In* 0 06/12/201907/23 Cmt: Generic or brand: dispe nse inhaler preferred by patient/insurance unless AMBROCIO flag is selected. Route: INHALATION Sig: Inhale 2 Puffs as instr ucted every 4 hours as needed for Wheezing/Shortness of Breath. Disc: Reason for discontinue is not on file. Encounter Status:Closed by KEREN KWON CNP on 08/19/19 progress on 2019-07 PROGRESS HNO ID: [id number] Normal 07-23-2019 [facility] Author: Keren Robles) Doyle Louie ([id number]) Service: ? Author Type: Nurse Practitioner Type: Progress Notes Filed: 07/23/2019 2:33 PM Note Text: This is a 53 year old male who presents today with: Patient presents with: Recheck: follow up HISTORY OF PRESENT ILLNESS: Bethany Montalvo is a 53 year old male. Patient presents wit h: Recheck: follow up Having trouble with sleep. Refers that he doesn't want anything that would affect his s obriety. He will be up until 3-4 AM Not taking seroquel - just occasionally on weekends, as he f eels that it makes him too drowsy on the following day. He was using ambien, however he desires something that is no t a controlled substance. Refers eyes have been bothering him for about two weeks. Refers matted shut in the morning. Refers that they have been red and puffy. Watery and itchy. Vision intact. No eye pain. Had been having a lot of LE dependent edema when working and on his feet a lot. Was getting some numbness on the dorsal aspect of the foot a nd to the great toe. Swelling improved now. It has been improving. Refers that has been not able to go to the counseling center . Dismissed for missing appts. Getting buspar and zoloft and seroquel there. Will let us know when he needs refills. No further cocaine use -- refers that was an isolated incide nt. He reports that he had a brief relapse of ETOH He is now sober again -- has been to 7 meetings in 7 days. Admits that he knows these meetings are going to be part of his life and the people part of his family. Refers that he will be looking for a part-time job. PAST MEDICAL HISTORY: PAST MEDICAL HISTORY Diagnosis Date - Alcohol abuse - CSF abnormal - GERD (gastroesophageal reflux disease) - HTN (hypertension) - Syncope PAST SURGICAL HISTORY Procedure Laterality Date - COLONOSCOP W/ OR W/O BRSH SPEC 01/12/2019 Colonoscopy - COLONOSCOPY BX SINGLE/MULTI 01/12/2019 - CRANIO/MAXILLO-FACIAL SURGERY 1989 orbital blow out fracture/ [place] - EGD W/O OR W/BRUSH/WASH 01/12/2019 EGD - PTCA SNGL VSSL LC 11/21/2017 JUSTIN left circ - TONSILLECTOMY HX - TREAT SHOULDERBLADE FRACTURE - UPPER GI ENDOSCPY, W/BIOPSY, SNGL OR MULT 01/12/2019 ALLERGIES Sudafed [Pseudoephedrine] MEDICATIONS Current Outpatient Medications Medication Sig - amLODIPine (NORVASC) 10 mg tablet Take 1 tablet by mouth o nce daily. - carvedilol (COREG) 6.25 mg tablet Take 1 tablet by mouth t wice daily. - albuterol HFA (VENTOLIN HFA) 90 mcg/actuation inhaler Inha le 2 Puffs as instructed every 4 hours as needed for Wheezing/Shortness of Breath. - lisinopril (ZESTRIL, PRINIVIL) 10 mg tablet Take 1 tablet by mouth once daily. - famotidine (PEPCID) 20 mg tablet Take 1 tablet by mouth tw ice daily as needed. - meloxicam (MOBIC) 15 mg tablet Take 1 tablet by mouth once daily. With food. - sertraline (ZOLOFT) 50 mg tablet Take 2 tablets by mouth o nce daily. - cyclobenzaprine (FLEXERIL) 10 mg tablet Take 1 tablet by m outh once daily. - thiamine (VITAMIN B1) 100 mg tablet Take 1 tablet by mouth once daily. - omeprazole (PRILOSEC) 20 mg capsule Take 1 capsule by mout h daily before breakfast. 1/2 hr before meal. - atorvastatin (LIPITOR) 80 mg tablet Take 1 tablet by mouth daily at bedtime. - nitroglycerin sublingual (NITROQUICK) 0.4 mg SL tablet Dis solve 1 tablet under the tongue as needed. FOR CHEST PAIN. IF NO RELIEF KRISHNA L 911 - busPIRone (BUSPAR) 10 mg tablet Take 1 tablet by mouth thr ee times daily. - aspirin, enteric coated (ECOTRIN LOW STRENGTH) 81 mg EC ta blet Take 1 tablet by mouth once daily. - polyethylene glycol 3350 (MIRALAX) 17 gram/dose powder José Antonio e 17 g by mouth once daily. - melatonin 3 mg tablet Take by mouth. - naltrexone ER (VIVITROL) 380 mg injection Inject 380 mg in tramuscularly one time only. - quetiapine fumarate (SEROQUEL ORAL) Take 75 mg by mouth. - acetaminophen (TYLENOL EXTRA STRENGTH) 500 mg tablet Take 1 tablet by mouth every 6 hours as needed for Pain. - L. gasseri-B. bifidum-B longum (PROBIOTIC COLON SUPPORT) 1 .5 billion cell cap Take by mouth. - buPROPion XL (WELLBUTRIN XL) 300 mg 24 hr tablet Take 1 ta blet by mouth once daily. No current facility-administered medications for this visit. FAMILY HISTORY Problem Relation Age of Onset - Psychiatry Mother - Heart Mother ME 53 - Heart Father ME 51 - Colon Cancer Father Social History Tobacco Use - Smoking status: Former Smoker Packs/day: 0.50 Start date: 12/30/1983 Last attempt to quit: 05/30/2014 Years since quittin.1 - Smokeless tobacco: Former User Types: Snuff - Tobacco comment: Very few, very infrequently. Father smoke d in childhood home. Substance Use Topics - Alcohol use: Yes Alcohol/week: 210.0 standard drinks Types: 84 Cans of Beer (12oz) per week Comment: Binge drinking at times, worse with stress. - Drug use: Yes Comment: Occassional marijuana, 03/2014. Huffed spray paint and glue briefly, ages 8-9. Whippets in mid to late teens. TO EXAM: BP 138/94 Pulse 100 Resp 14 Wt 100.7 kg (222 lb) BMI 31.85 kg/m? PHYSICAL EXAM: General Appearance: Well appearing, alert, in no acute distr ess, well-hydrated, well nourished.. Skin: Skin color, texture, turgor normal, no suspicious rash es or lesions. Head: Normocephalic, no masses, lesions, tenderness or abnor malities. Eyes: Anicteric sclera. Pupils are equally round and reactiv e to light. Extraocular movements are intact. conjunctiva injected. Neck: Supple, no adenopathy; no bruits. Lungs: lungs clear to auscultation. No wheezing, rhonchi, ra les. Heart: RRR without murmur, gallop, or rubs. No ectopy. Extremities: No deformities, edema, skin discoloration, club gavin or cyanosis. Good capillary refill. Neurologic: Gait normal. ASSESSMENT/PLAN: 1. Hypertension, essential - ICD9: 401.9, ICD10: I10 (primar y diagnosis) Improved control. Parameters of monitoring explained to pierce ent. - Continue current medication(s) - Recommended regular aerobic exercise. - Recommend home blood pressure monitoring, to bring results in on next visit 2. Bacterial conjunctivitis - ICD9: 372.39, 041.9, ICD10: H1 0.9 - see medication orders - ERYTHROMYCIN 5 MG/GRAM (0.5 %) EYE OINTMENT 3. Leg swelling - ICD9: 729.81, ICD10: M79.89 Improved. Suspect numbness was secondary to compression of s hoe, which is improving. 4. Drug use - ICD9: 305.90, ICD10: F19.90 No further episodes. 5. Chronic alcohol abuse - ICD9: 305.00, ICD10: F10.10 Recent relapse, but sober for over a week now. Attending meetings. 6. Chronic insomnia - ICD9: 780.52, ICD10: F51.04 Will try prn trazodone. - TRAZODONE 50 MG TABLET Discussed treatment plan and patient voices understanding. Patient's questions answered appropriately. Medications and potential side effects were discussed and pa jessica voices understanding. Return to the office as scheduled or as needed for worsening /no improvement. VENKAT Armendariz on 2019-07-23 CNOV Office Visit (FAMPWS) Normal 07-23-[address] [place] [address] BETHANY Madsen ([id number]) 1965 [facility] Date Time Provider Department ([id number]) 07/23/19 1:00 PM KEREN KWON (MAIA) FAMPWS During your visit today, we recorded the following informati on about you: Pulse Respiration Blood pressure Weight 100/minute 14/minute 138/94 100.7 kg Keren Kwon APRN.CNP 07/23/2019 2:33 PM Signed This is a 53 year old male who presents today with: Patient presents with: Recheck: follow up HISTORY OF PRESENT ILLNESS: Bethany Montalvo is a 53 year old male. Patient presents wit h: Recheck: follow up Having trouble with sleep. Refers that he doesn't want anything that would affect his s obriety. He will be up until 3-4 AM Not taking seroquel - just occasionally on weekends, as he feels that it makes him too drowsy on the following day. He was using ambien, however he desires something that is no t a controlled substance. Refers eyes have been bothering him for about two weeks. Refers matted shut in the morning. Refers that they have been red and puffy. Watery and itchy. Vision intact. No eye pain. Had been having a lot of LE dependent edema when working and on his feet a lot. Was getting some numbness on the dorsal aspect of the foot and to the great toe. Swelling improved now. It has been improving. Refers that has been not able to go to the counseling center . Dismissed for missing appts. Getting buspar and zoloft and seroquel there. Will let us know when he needs refills. No further cocaine use -- refers that was an isolated incide nt. He reports that he had a brief relapse of ETOH He is now sober again -- has been to 7 meetings in 7 days. Admits that he knows these meetings are going to be pa rt of his life and the people part of his family. Refers that he will be looking for a part-time job. PAST MEDICAL HISTORY: PAST MEDICAL HISTORY Diagnosis Date - Alcohol abuse - CSF abnormal - GERD (gastroesophageal reflux disease) - HTN (hypertension) - Syncope PAST SURGICAL HISTORY Procedure Laterality Date - COLONOSCOP W/ OR W/O BRSH SPEC 01/12/2019 Colonoscopy - COLONOSCOPY BX SINGLE/MULTI 01/12/2019 - CRANIO/MAXILLO-FACIAL SURGERY 1989 orbital blow out fracture/ [place] - EGD W/O OR W/BRUSH/WASH 01/12/2019 EGD - PTCA SNGL VSSL LC 11/21/2017 JUSTIN left circ - TONSILLECTOMY HX - TREAT SHOULDERBLADE FRACTURE - UPPER GI ENDOSCPY, W/BIOPSY, SNGL OR MULT 01/12/2019 ALLERGIES Sudafed [Pseudoephedrine] MEDICATIONS Current Outpatient Medications Medication Sig - amLODIPine (NORVASC) 10 mg tablet Take 1 tablet by mouth o nce daily. - carvedilol (COREG) 6.25 mg tablet Take 1 tablet by mouth t wice daily. - albuterol HFA (VENTOLIN HFA) 90 mcg/actuation inhaler Inha le 2 Puffs as instructed every 4 hours as needed for Wheezing/Shortness of Breath. - lisinopril (ZESTRIL, PRINIVIL) 10 mg tablet Take 1 tablet by mouth once daily. - famotidine (PEPCID) 20 mg tablet Take 1 tablet by mouth tw ice daily as needed. - meloxicam (MOBIC) 15 mg tablet Take 1 tablet by mouth once daily. With food. - sertraline (ZOLOFT) 50 mg tablet Take 2 tablets by mouth o nce daily. - cyclobenzaprine (FLEXERIL) 10 mg tablet Take 1 table t by mouth once daily. - thiamine (VITAMIN B1) 100 mg tablet Take 1 tablet by mouth once daily. - omeprazole (PRILOSEC) 20 mg capsule Take 1 capsule by mout h daily before breakfast. 1/2 hr before meal. - atorvastatin (LIPITOR) 80 mg tablet Ta ke 1 tablet by mouth daily at bedtime. - nitroglycerin sublingual (NITROQUICK) 0.4 mg SL tablet Dis solve 1 tablet under the tongue as needed. FOR CHEST PAIN. IF NO RELIEF KRISHNA L 911 - busPIRone (BUSPAR) 10 mg tablet Take 1 tablet by mouth t hree times daily. - aspirin, enteric coated (ECOTRIN LOW S TRETH) 81 mg EC tablet Take 1 tablet by mouth once daily. - polyethylene glycol 3350 (MIRALAX) 17 gram/dose powder T cesar 17 g by mouth once daily. - melatonin 3 mg tablet Take by mouth. - naltrexone ER (VIVITROL) [address] 380 mg intramuscularly one time only. - quetiapine fumarate (SEROQUEL ORAL) Take 75 mg by mouth. - acetaminophen (TYLENOL EXTRA STRENGTH) 500 mg tablet Take 1 tablet by mouth every 6 hours as needed for Pain. - L. gasseri-B. bifidum-B lo ngum (PROBIOTIC COLON SUPPORT) 1.5 billion cell cap Take by mouth. - buPROPion XL (WELLBUTRIN XL) 300 mg 24 hr tablet Take 1 tablet by mouth once daily. No current facility-administered medications for this visit. FAMILY HISTORY Problem Relation Age of Onset - Psychiatry Mother - Heart Mother ME 53 - Heart Father ME 51 - Colon Cancer Father Social History Tobacco Use - Smoking status: Former Smoker Packs/day: 0.50 Start date: 12/30/1983 Last attempt to quit: 05/30/2014 Years since quittin.1 - Smokeless tobacco: Former User Types: Snuff - Tobacco comment: Very few, very infrequently. Father smoke d in childhood home. Substance Use Topics - Alcohol use: Yes Alcohol/week: 210.0 standard drinks Types: 84 Cans of Beer (12oz) per week Comment: Binge drinking at times, worse with stress. - Drug use: Yes Comment: Occassional marijuana, 03/2014. Huffed spray paint and glue briefly, ages 8-9. Whippets in mid to late teens. TO EXAM: BP 138/94 Pulse 100 Resp 14 Wt 100.7 kg (222 lb) BMI 31.85 kg/m? PHYSICAL EXAM: General Appearance: Well karyn earing, alert, in no acute distress, well-hydrated, well nourished.. Skin: Skin color, texture, turgor normal, no suspicious rash es or lesions. Head: Normocephalic, no masses, lesions, tenderness or abnor malities. Eyes: Anicteric sclera. Pupils are equally round and reactiv e to light. Extraocular movements are intact. conjunctiva injected. Neck: Supple, no adenopathy; no bruits. Lungs: lungs clear to auscultation. No wheezing, rhonchi, ra les. Heart: RRR without murmur, gallop, or rubs. No ectopy. Extremities: No deformities, edema, skin discolo ration, clubbing or cyanosis. Good capillary refill. Neurologic: Gait normal. ASSESSMENT/PLAN: 1. Hypertension, essential - ICD9: 401.9, ICD10: I10 (primar y diagnosis) Improved control. Parameters of monitoring explained to pierce ent. - Continue current medication(s) - Recommended regular aerobic exercise. - Recommend home blood pressure monitoring, to b ring results in on next visit 2. Bacterial conjunctivitis - ICD9: 372.39, 041.9, ICD10: H1 0.9 - see medication orders - ERYTHROMYCIN 5 MG/GRAM (0.5 %) EYE OINTMENT 3. Leg swelling - ICD9: 729.81, ICD10: M79.89 Improved. Suspect numbness was secondary to compression of s hoe, which is improving. 4. Drug use - ICD9: 305.90, ICD10: F19.90 No further episodes. 5. Chronic alcohol abuse - ICD9: 305.00, ICD10: F10.10 Recent relapse, but sober for over a week now. Attending meetings. 6. Chronic insomnia - ICD9: 780.52, ICD10: F51.04 Will try prn trazodone. - TRAZODONE 50 MG TABLET Discussed treatment plan and patient voices understanding. Patient's questions answered appropriately. Medications and potential side effects were discussed and pa tient voices understanding. Return to the office as scheduled or as needed for wor sening/no improvement. Keren Kwon APRN.MAIA Kwon APRN.MAIA 07/23/2019 1:35 PM Signed 1. Start the eye ointment. 2. Can try the trazodone at bedtime as needed for sleep. 3. Recheck in a month. Referring Provider: SELF [[id number]] Allergies As of Date: 07/23/2019 Noted Allergy Reaction SUDAFED (PSEUDOEPHEDRINE) 06/26/2016 14 - Other: See Comment s Comments: Prostate infection Date Reviewed: 07/23/2019 Reviewed by: Donna Richey LPN - Fully Assessed Reason for Visit: Recheck [92] Cmt: follow up Primary Visit Diagnosis:Hypertension, essential [I10] Other Visit Diagnoses:Bacterial conjunctivitis [H10.9] Leg swelling [M79.89] Drug use [F19.90] Chronic alcohol abuse [F10.10] Chronic insomnia [F51.04] Order(s):traZODone (DESYREL) 50 mg tabletTake 1 tablet by mouth at bedtime as needed.Disp: 30 tabletRfl: 1 erythromycin ophthalmic ointmentUse in both eyes daily at be dtime for 7 days.Disp: 3.5 gRfl: 0 Prescriptions as of 07/23/2019 Sig: AMLODIPINE 10 MG TABLET Take 1 tablet by mouth once d* CARVEDILOL 6.25 MG TABLET Take 1 tablet by mouth twice * ALBUTEROL SULFATE HFA 90 MCG/* Inhale 2 Puffs as instructed * LISINOPRIL 10 MG TABLET Take 1 tablet by mouth once d* FAMOTIDINE 20 MG TABLET Take 1 tablet by mouth twice * MELOXICAM 15 MG TABLET Take 1 tablet by mouth once d* SERTRALINE 50 MG TABLET Take 2 tablets by mouth once * CYCLOBENZAPRINE 10 MG TABLET Take 1 tablet by mouth once d* THIAMINE HCL (VITAMIN B1) 100* Take 1 tablet by mouth once d * OMEPRAZOLE 20 MG CAPSULE,JAMILA* Take 1 capsule by mouth daily * ATORVASTATIN 80 MG TABLET Take 1 tablet by mouth daily * NITROGLYCERIN 0.4 MG SUBLINGU* Dissolve 1 tablet under the t * BUSPIRONE 10 MG TABLET Take 1 tablet by mouth three * ASPIRIN 81 MG TABLET,DELAYED * Take 1 tablet by mouth once d * POLYETHYLENE GLYCOL 3350 17 G* Take 17 g by mouth once daily . MELATONIN 3 MG TABLET Take by mouth. NALTREXONE ER 380 MG INTRAMUS* Inject 380 mg intramuscularly * SEROQUEL ORAL Take 75 mg by mouth. ACETAMINOPHEN 500 MG TABLET Take 1 tablet by mouth every * PROBIOTIC COLON SUPPORT 1.5 B* Take by mouth. TRAZODONE 50 MG TABLET Take 1 tablet by mouth at bed* ERYTHROMYCIN 5 MG/GRAM (0.5 %* Use in both eyes daily at bed * BUPROPION XL 300 MG 24 HR TAB Take 1 tablet by mouth once d* Problem List As Of Date 07/23/2019 Noted Resolved Moderate hypertension [I10] 08/24/2006 Anxiety and depression [F41.9, F32.9] 02/05/2014 Seasonal allergies [J30.2] 02/05/2014 Renal insufficiency [N28.9] 02/05/2014 History of skull fracture [Z87.81] 02/05/2014 Hypertriglyceridemia [E78.1] 02/05/2014 Chronic alcohol abuse [F10.10] 02/05/2014 Unilateral inguinal hernia without obstruction *07/09/2016 NSTEMI (non-ST elevated myocardial infarction) *11/29/2017 Presence of drug-eluting stent in left circumfl*11/29/2017 Acute right-sided low back pain without sciatic*03/16/2019 Other instructions from your clinician: 1. Start the eye ointment. 2. Can try the trazodone at bedtime as needed for sleep. 3. Recheck in a month. Prescriptions ordered this encounter Disp Refills Start End TRAZODONE 50 MG TABLET 30 t* 1 07/23/2019 Route: ORAL Sig: Take 1 tablet by mouth at bedtime as needed. ERYTHROMYCIN 5 MG/GRAM (0.5 %) EYE O* 3.5 g 0 07/23/201903/2020 Route: BOTH EYES Sig: Use in both eyes daily at bedtime for 7 days. Encounter Status:Closed by KEREN KWON CNP on 07/23/19 progress on 2019-05 PROGRESS HNO ID: [id number] Normal 06-12-2019 [facility] Author: Keren (Maia) Doyle Louie ([id number]) Service: ? Author Type: Nurse Practitioner Type: Progress Notes Filed: 06/12/2019 5:55 PM Note Text: HPI/CC: Bethany Montalvo is a 53 year old male who presents to the office today for hospital follow-up. He was to [facility] c/o breathing problems. Admitted: 05/31/19 Discharged: 06/04/19 Dx: 1. hypoxia 2. Heart failure. Pt was in the ER on 05/28/19 and diagnosed w/ viral syndrome. He was given prescription dose of toradol and albuterol inha ler. On 05/31/19, woke with SOB. He called an ambulance. On EMS arrival, he was found to be hypoxic and diaphoretic. He reported a productive cough of greenish-yellow sputum and chills. Refers had antibiotics and breathing treatments while in the hospital. Refers blood pressure was elevated. Refers some of his medications were changed. Chest xray: Early congestive heart failure. Differential diagnosis includes bilateral lower lobe pneumon ia. Echo: Normal LV size Left ventricular systolic function is normal. EF 60% Upon record review, he initially came in with hypertensive e mergency and what looked like CHF. His lisinopril was increased, as well as his metoprolol. His medications were then changed from lopressor to coreg tw ice daily and norvasc. Per chart review, he was inconsistent about ETOH and drug us e. His serum ETOH was < 3. However he did test positive for geraldine lorenzo use. Because he appeared to have withdrawal-like symptoms and his inconsistency, he was placed on withdrawal protocol, as well as a Librium taper. He does continue to follow through the counseling center and . He has an upcoming appt scheduled. No fevers/chills. He is still using the inhaler. He still complains of some difficulty breathing. Refers that he does feels weak. Some bouts of coughing, throughout the day. 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 Does expectorate some phlegm -- refers yellow at first, but it is now clearing up. He denies any CP, palpitations, swelling. Eating/drinking okay. Moving bowels. Urinating okay. Had requested another appt with GI d/t having problems since colonoscopy. Refers increased gas. Refers malodorous. Refers that never had that problem since colonoscopy. He is still on the probiotics and eating a lot of yogurt. He refers that he did relapse. He hasn't been going to AA meetings. Reports that just doesn't get along with many there. He has started going to rastafarian. Hasn't spoken to railroad crossing protection maintainer th sj yet. 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 He does talk to someone there. He reports the cocaine use was an isolated incident because of an old girlfriend that was in town and she brought it. HISTORIES: PAST MEDICAL HISTORY Diagnosis Date - Alcohol abuse - CSF abnormal - GERD (gastroesophageal reflux disease) - HTN (hypertension) - Syncope PAST SURGICAL HISTORY Procedure Laterality Date - COLONOSCOP W/ OR W/O BRSH SPEC 01/12/2019 Colonoscopy - COLONOSCOPY BX SINGLE/MULTI 01/12/2019 - CRANIO/MAXILLO-FACIAL SURGERY 1989 orbital blow out fracture/ [place] - EGD W/O OR W/BRUSH/WASH 01/12/2019 EGD - PTCA SNGL VSSL LC 11/21/2017 JUSTIN left circ - TONSILLECTOMY HX - TREAT SHOULDERBLADE FRACTURE - UPPER GI ENDOSCPY, W/BIOPSY, SNGL OR MULT 01/12/2019 FAMILY HISTORY Problem Relation Age of Onset - Psychiatry Mother - Heart Mother ME 53 - Heart Father ME 51 - Colon Cancer Father Social History Tobacco Use - Smoking status: Former Smoker Packs/day: 0.50 Start date: 12/30/1983 Last attempt to quit: 05/30/2014 Years since quittin.0 - Smokeless tobacco: Former User Types: Snuff - Tobacco comment: Very few, very infrequently. Father smoke d in childhood home. Substance Use Topics - Alcohol use: Yes Alcohol/week: 210.0 standard drinks Types: 84 Cans of Beer (12oz) per week Comment: Binge drinking at times, worse with stress. - Drug use: Yes Comment: Occassional marijuana, 03/2014. Huffed spray paint and glue briefly, ages 8-9. Whippets in mid to late teens. TO Current Outpatient Medications on File Prior to Visit Medication Sig - buPROPion XL (WELLBUTRIN XL) 300 mg 24 hr tablet Take 1 ta blet by mouth once daily. - busPIRone (BUSPAR) 10 mg tablet Take 1 tablet by mouth thr ee times daily. - famotidine (PEPCID) 20 mg tablet Take 1 tablet by mouth tw ice daily as needed. - aspirin, enteric coated (ECOTRIN LOW STRENGTH) 81 mg EC ta blet Take 1 tablet by mouth once daily. - polyethylene glycol 3350 (MIRALAX) 17 gram/dose powder José Antonio e 17 g by mouth once daily. - meloxicam (MOBIC) 15 mg tablet Take 1 tablet by mouth once daily. With food. - lisinopril (ZESTRIL, PRINIVIL) 5 mg tablet Take 1 tablet b y mouth once daily. - melatonin 3 mg tablet Take by mouth. - sertraline (ZOLOFT) 50 mg tablet Take 2 tablets by mouth o nce daily. - metoprolol tartrate, short acting, (LOPRESSOR) 25 mg table t Take 1 tablet by mouth twice daily. - cyclobenzaprine (FLEXERIL) 10 mg tablet Take 1 tablet by m outh once daily. - thiamine (VITAMIN B1) 100 mg tablet Take 1 tablet by mouth once daily. - omeprazole (PRILOSEC) 20 mg capsule Take 1 capsule by mout h daily before breakfast. 1/2 hr before meal. - diclofenac sodium (VOLTAREN) 1 % topical gel Apply 2 g to affected area four times daily. - atorvastatin (LIPITOR) 80 mg tablet Take 1 tablet by mouth daily at bedtime. - nitroglycerin sublingual (NITROQUICK) 0.4 mg SL tablet Dis solve 1 tablet under the tongue as needed. FOR CHEST PAIN. IF NO RELIEF KRISHNA L 911 - naltrexone ER (VIVITROL) 380 mg injection Inject 380 mg in tramuscularly one time only. - quetiapine fumarate (SEROQUEL ORAL) Take 75 mg by mouth. - acetaminophen (TYLENOL EXTRA STRENGTH) 500 mg tablet Take 1 tablet by mouth every 6 hours as needed for Pain. No current facility-administered medications on file prior t o visit. ALLERGIES Allergen Reactions - Sudafed [Pseudoephe* Other: See Comments Prostate infection PHYSICAL EXAMINATION: BP 152/92 (BP Site: Left Arm, BP Position: Sitting, BP Cuff Size: Large Adult) Pulse 106 Temp 37.1 ?C (98.7 ?F) (Tympanic) Res p 16 Wt 106.1 kg (234 lb) SpO2 100% BMI 33.58 kg/m? General appearance: Well appearing, alert, in no acute distr ess, well-hydrated, well nourished. and teary at times. Skin: Skin color, texture, turgor normal, no suspicious rash es or lesions Head: Normocephalic, no masses, lesions, tenderness or abnor malities Eyes: Anicteric sclera. Extraocular movements are intact. Neck: Supple, no adenopathy; thyroid symmetric, normal size, no bruits Lungs: Lungs clear to auscultation. No wheezing, rhonchi, ra les Heart: RRR without murmur, gallop, or rubs. No ectopy Abdomen: Abdomen soft, non-tender. Bowel sounds normal. No m asses, organomegaly Extremities: No deformities, edema, skin discoloration, club gavin or cyanosis. Good capillary refill. Neuro: Gait normal. ASSESSMENT/PLAN: 1. Hypertension, essential - ICD9: 401.9, ICD10: I10 (primar y diagnosis) - suboptimal control - Continue current medication(s) He was unaware that his lisinopril dose was increased in the hospital. Increase to 10 mg. Recheck in a month w/ labs. - AMLODIPINE 10 MG TABLET - CARVEDILOL 6.25 MG TABLET - LISINOPRIL 10 MG TABLET 2. Acute right-sided low back pain without sciatica - ICD9: 724.2, ICD10: M54.5 - MELOXICAM 15 MG TABLET 3. Right hip pain - ICD9: 719.45, ICD10: M25.551 - MELOXICAM 15 MG TABLET 4. Anxiety and depression - ICD9: 300.00, 311, ICD10: F41.9, F32.9 - SERTRALINE 50 MG TABLET Continue per counseling center. 5. GERD without esophagitis - ICD9: 530.81, ICD10: K21.9 Refill: Encouraged to follow-up w/ GI. - FAMOTIDINE 20 MG TABLET - OMEPRAZOLE 20 MG CAPSULE,DELAYED RELEASE 6. Hypertriglyceridemia - ICD9: 272.1, ICD10: E78.1 Refill: - ATORVASTATIN 80 MG TABLET 7. NSTEMI (non-ST elevated myocardial infarction) (HCC) - IC D9: 410.70, ICD10: I21.4 Unsure how old his nitro is. Hasn't needed to take any. Refill: - NITROGLYCERIN 0.4 MG SUBLINGUAL TABLET Encouraged to follow-up w/ cardiology. 8. Chronic alcohol abuse - ICD9: 305.00, ICD10: F10.10 Continue: Encourage counseling. Continue w/ 180. - THIAMINE HCL (VITAMIN B1) 100 MG TABLET 9. Drug use - ICD9: 305.90, ICD10: F19.90 Pt reports cocaine use was an isolated incident. Continue care through 180. Discussed treatment plan and patient voices understanding. Patient's questions answered appropriately. Medications and potential side effects were discussed and avel lopez voices understanding. Return to the office as scheduled or as needed for worsening /no improvement. Keren Kwon APRN.MAIA gorman on 2019-06-12 CNOV Office Visit (FAMPWS) Normal 06-12-20 [place] BETHANY Madsen ([id number]) 1965 [facility] Date Time Provider Department ([id number]) 06/12/19 8:40 AM KEREN KWON (MAIA) FAMPWS During your visit today, we recorded the following informati on about you: Temperature Pulse Respiration Blood pressure 98.7 degrees 111/minute 16/minute 149/93 Weight 106.1 kg Keren Kwon RETAIL DEPARTMENT RESET.MAIA 06/12/2019 5:55 PM Signed HPI/CC: Bethany Montalvo is a 53 year old male who presents to the office today for hospital follow-up. He was to [facility] following c/o breathing problems. Admitted: 05/31/19 Discharged: 06/04/19 Dx: 1. hypoxia 2. Heart failure. Pt was in the ER on 05/28/19 and diagnosed w/ viral syndrome. He was given prescription dose of toradol and albuterol inha ler. On 05/31/19, woke with SOB. He called an ambulance. On EMS arrival, he was found to be hypoxic and diaphoretic. He reported a productive cough of greenish-yellow sputum and chills. Refers had antibiotics and breathing treatments while in the hospital. Refers blood pressure was elevated. Refers some of his medications were changed. Chest xray: Early congestive heart failure. Differential diagnosis includes bilateral lower lobe pneumon ia. Echo: Normal LV size Left ventricular systolic function is normal. EF 60% Upon record review, he initially came in with hy pertensive emergency and what looked like CHF. His lisinopril was increased, as well as his metoprolol. His medications were then changed from lopressor to coreg tw ice daily and norvasc. Per chart review, he was inconsistent about ETOH and drug us e. His serum ETOH was < 3. However he did test positive for geraldine lorenzo use. Because he appeared to have withdrawal-l toño symptoms and his inconsistency, he was placed on withdrawal protocol, as well as a Librium tape r. He does continue to follow through the counseling center and . He has an upcoming appt scheduled. No fevers/chills. He is still using the inhaler. He still complains of some difficulty breathing. Refers that he does feels weak. Some bouts of coughing, throughout the day. 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 Does expectorate some phlegm -- refers annika rios at first, but it is now clearing up. He denies any CP, palpitations, swelling. Eating/drinking okay. Moving bowels. Urinating okay. Had requested another appt with GI d/t having problems since colonoscopy. Refers increased gas. Refers malodorous. Refers that never had that problem since colonoscopy. He is still on the probiotics and eating a lot of yogurt. He refers that he did relapse. He hasn't been going to AA meetings. Reports that just doesn't get along with many there. He has started going to rastafarian. Hasn't spoken to railroad crossing protection maintainer chan gustafson yet. 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 He does talk to someone there. He reports the cocaine use was an isolated incident because of an old girlfriend that was in town and she brought it. HISTORIES: PAST MEDICAL HISTORY Diagnosis Date - Alcohol abuse - CSF abnormal - GERD (gastroesophageal reflux disease) - HTN (hypertension) - Syncope PAST SURGICAL HISTORY Procedure Laterality Date - COLONOSCOP W/ OR W/O BRSH SPEC 01/12/2019 Colonoscopy - COLONOSCOPY BX SINGLE/MULTI 01/12/2019 - CRANIO/MAXILLO-FACIAL SURGERY 1989 orbital blow out fracture/ [place] - EGD W/O OR W/BRUSH/WASH 01/12/2019 EGD - PTCA SNGL VSSL LC 11/21/2017 JUSTIN left circ - TONSILLECTOMY HX - TREAT SHOULDERBLADE FRACTURE - UPPER GI ENDOSCPY, W/BIOPSY, SNGL OR MULT 01/12/2019 FAMILY HISTORY Problem Relation Age of Onset - Psychiatry Mother - Heart Mother ME 53 - Heart Father ME 51 - Colon Cancer Father Social History Tobacco Use - Smoking status: Former Smoker Packs/day: 0.50 Start date: 12/30/1983 Last attempt to quit: 05/30/2014 Years since quittin.0 - Smokeless tobacco: Former User Types: Snuff - Tobacco comment: Very few, very infrequently. Father smoke d in childhood home. Substance Use Topics - Alcohol use: Yes Alcohol/week: 210.0 standard drinks Types: 84 Cans of Beer (12oz) per week Comment: Binge drinking at times, worse with stress. - Drug use: Yes Comment: Occassional marijuana, 03/2014. Huffed spray paint and glue briefly, ages 8-9. Whippets in mid to late teens. TO Current Outpatient Medications on File Prior to Visit Medication Sig - buPROPion XL (WELLBUTRIN XL) 300 mg 24 hr tablet Take 1 tablet by mouth once daily. - busPIRone (BUSPAR) 10 mg tablet Take 1 tablet by mouth t hree times daily. - famotidine (PEPCID) 20 mg tablet Take 1 tablet by mouth tw ice daily as needed. - aspirin, enteric coated (ECOTRIN LOW S TRENGTH) 81 mg EC tablet Take 1 tablet by mouth once daily. - polyethylene glycol 3350 (MIRALAX) 17 gram/dose powder T cesar 17 g by mouth once daily. - meloxicam (MOBIC) 15 mg tablet Take 1 tablet by mouth once daily. With food. - lisinopril (ZESTRIL, PRINI URVASHI) 5 mg tablet Take 1 tablet by mouth once daily. - melatonin 3 mg tablet Take by mouth. - sertraline (ZOLOFT) 50 mg tablet Take 2 tablets by mouth o nce daily. - metoprolol tartrate, short acting, (LO PRESSOR) 25 mg tablet Take 1 tablet by mouth twice daily. - cyclobenzaprine (FLEXERIL) 10 mg tablet Take 1 table t by mouth once daily. - thiamine (VITAMIN B1) 100 mg tablet Take 1 tablet by mouth once daily. - omeprazole (PRILOSEC) 20 mg capsule Take 1 capsule by mout h daily before breakfast. 1/2 hr before meal. - diclofenac sodium (VOLTAREN) 1 % topic al gel Apply 2 g to affected area four times daily. - atorvastatin (LIPITOR) 80 mg tablet Ta ke 1 tablet by mouth daily at bedtime. - nitroglycerin sublingual (NITROQUICK) 0.4 mg SL tablet Dis solve 1 tablet under the tongue as needed. FOR CHEST PAIN. IF NO RELIEF KRISHNA L 911 - naltrexone ER (VIVITROL) [address] 380 mg intramuscularly one time only. - quetiapine fumarate (SEROQUEL ORAL) Take 75 mg by mouth. - acetaminophen (TYLENOL EXTRA STRENGTH) 500 mg tablet Take 1 tablet by mouth every 6 hours as needed for Pain. No current facility-administered medications on file prior t o visit. ALLERGIES Allergen Reactions - Sudafed [Pseudoephe* Other: See Comments Prostate infection PHYSICAL EXAMINATION: BP 152/92 (BP Site: Left Arm, BP Positio n: Sitting, BP Cuff Size: Large Adult) Pulse 106 Temp 37.1 ?C (98.7 ?F) (Tympanic) Resp 16 Wt 106.1 kg (234 lb) SpO2 100% BMI 33.58 kg/m? General appearance: Well karyn earing, alert, in no acute distress, well-hydrated, well nourished. and teary at times. Skin: Skin color, texture, turgor normal, no suspicious rash es or lesions Head: Normocephalic, no masses, lesions, tenderness or abnor malities Eyes: Anicteric sclera. Extraocular movements are intact. Neck: Supple, no adenopathy; thyroid symmetric, normal size, no bruits Lungs: Lungs clear to auscultation. No wheezing, rhonchi, ra les Heart: RRR without murmur, gallop, or rubs. No ectopy Abdomen: Abdomen soft, non-t cub[place]. Bowel sounds normal. No masses, organomegaly Extremities: No deformities, edema, skin discolo ration, clubbing or cyanosis. Good capillary refill. Neuro: Gait normal. ASSESSMENT/PLAN: 1. Hypertension, essential - ICD9: 401.9, ICD10: I10 (primar y diagnosis) - suboptimal control - Continue current medication(s) He was unaware that his lisinopril dose was increased in the hospital. Increase to 10 mg. Recheck in a month w/ labs. - AMLODIPINE 10 MG TABLET - CARVEDILOL 6.25 MG TABLET - LISINOPRIL 10 MG TABLET 2. Acute right-sided low prakash k pain without sciatica - ICD9: 724.2, ICD10: M54.5 - MELOXICAM 15 MG TABLET 3. Right hip pain - ICD9: 719.45, ICD10: M25.551 - MELOXICAM 15 MG TABLET 4. Anxiety and depression - ICD9: 300.00, 311, ICD10: F41.9, F32.9 - SERTRALINE 50 MG TABLET Continue per counseling center. 5. GERD without esophagitis - ICD9: 530.81, ICD10: K21.9 Refill: Encouraged to follow-up w/ GI. - FAMOTIDINE 20 MG TABLET - OMEPRAZOLE 20 MG CAPSULE,DELAYED RELEASE 6. Hypertriglyceridemia - ICD9: 272.1, ICD10: E78.1 Refill: - ATORVASTATIN 80 MG TABLET 7. NSTEMI (non-ST elevated myocardial in farction) ([facility]) - ICD9: 410.70, ICD10: I21.4 Unsure how old his nitro is. Hasn't needed to take any. Refill: - NITROGLYCERIN 0.4 MG SUBLINGUAL TABLET Encouraged to follow-up w/ cardiology. 8. Chronic alcohol abuse - ICD9: 305.00, ICD10: F10.10 Continue: Encourage counseling. Continue w/ 180. - THIAMINE HCL (VITAMIN B1) 100 MG TABLET 9. Drug use - ICD9: 305.90, ICD10: F19.90 Pt reports cocaine use was an isolated incident. Continue care through 180. Discussed treatment plan and patient voices understanding. Patient's questions answered appropriately. Medications and potential side effects were discussed and avel lopez voices understanding. Return to the office as scheduled or as needed for wor sening/no improvement. Keren Kwon APRN.MAIA Kwon APRN.CNP 06/12/2019 9:46 AM Addendum 1. Reschedule w/ cardiology. 2. Reschedule w/ GI. 3. Same medications. 4. Increase the lisinopril to 10 mg daily -- new script sent in. 5. Return in a month for recheck. Referring Provider: SELF [[id number]] Allergies As of Date: 06/12/2019 Noted Allergy Reaction SUDAFED (PSEUDOEPHEDRINE) 06/26/2016 14 - Other: See Comment s Comments: Prostate infection Date Reviewed: 06/12/2019 Reviewed by: Jenny Paul LPN - Fully Assessed Reason for Visit: Recheck [92] Cmt: Hospital follow up pneumonia Primary Visit Diagnosis:Hypertension, essential [I10] Other Visit Diagnoses:Acute right-sided low back pain without sciatica [M54.5] Right hip pain [M25.551] Anxiety and depression [F41.9, F32.9] GERD without esophagitis [K21.9] Hypertriglyceridemia [E78.1] NSTEMI (non-ST elevated myocardial infarction) (HCC) [I21.4] Chronic alcohol abuse [F10.10] Drug use [F19.90] Order(s):amLODIPine (NORVASC) 10 mg tabletTake 1 tablet by m outh once daily.Disp: 30 tabletRfl: 3 carvedilol (COREG) 6.25 mg tabletTake 1 tablet by mouth twic e daily.Disp: 60 tabletRfl: 3 albuterol HFA (VENTOLIN HFA) 90 mcg/actuation inhalerInhale 2 Puffs as instructed every 4 hours as needed for Wheezing/Shortness of Breath.Disp: 1 InhalerRfl: 0 lisinopril (ZESTRIL, PRINIVIL) 10 mg tabletTake 1 tablet by mouth once daily.Disp: 30 tabletRfl: 5 famotidine (PEPCID) 20 mg tabletTake 1 tablet by mouth twice daily as needed.Disp: 60 tabletRfl: 3 meloxicam (MOBIC) 15 mg tabletTake 1 tablet by mouth once da kehinde. With food.Disp: 30 tabletRfl: 1 sertraline (ZOLOFT) 50 mg tabletTake 2 tablets by mouth once daily.Disp: 30 tabletRfl: 5 cyclobenzaprine (FLEXERIL) 10 mg tabletTake 1 tablet by mout h once daily.Disp: 90 tabletRfl: 1 thiamine (VITAMIN B1) 100 mg tabletTake 1 tablet by mouth on ce daily.Disp: 30 tabletRfl: 3 omeprazole (PRILOSEC) 20 mg capsuleTake 1 capsule by mouth d aily before breakfast. 1/2 hr before meal.Disp: 30 capsuleRfl: 5 atorvastatin (LIPITOR) 80 mg tabletTake 1 tablet by mouth da kehinde at bedtime.Disp: 30 tabletRfl: 5 nitroglycerin sublingual (NITROQUICK) 0.4 mg SL tabletDissol ve 1 tablet under the tongue as needed. FOR CHEST PAIN. IF NO REL IEF CALL 911Disp: 1 Bottle of 25Rfl: 3 Prescriptions as of 06/12/2019 Sig: FAMOTIDINE 20 MG TABLET Take 1 tablet by mouth twice * MELOXICAM 15 MG TABLET Take 1 tablet by mouth once d* SERTRALINE 50 MG TABLET Take 2 tablets by mouth once * CYCLOBENZAPRINE 10 MG TABLET Take 1 tablet by mouth once d* THIAMINE HCL (VITAMIN B1) 100* Take 1 tablet by mouth once d * OMEPRAZOLE 20 MG CAPSULE,JAMILA* Take 1 capsule by mouth daily * ATORVASTATIN 80 MG TABLET Take 1 tablet by mouth daily * NITROGLYCERIN 0.4 MG SUBLINGU* Dissolve 1 tablet under the t * BUPROPION XL 300 MG 24 HR TAB Take 1 tablet by mouth once d* BUSPIRONE 10 MG TABLET Take 1 tablet by mouth three * ASPIRIN 81 MG TABLET,DELAYED * Take 1 tablet by mouth once d * POLYETHYLENE GLYCOL 3350 17 G* Take 17 g by mouth once daily . MELATONIN 3 MG TABLET Take by mouth. NALTREXONE ER 380 MG INTRAMUS* Inject 380 mg intramuscularly * SEROQUEL ORAL Take 75 mg by mouth. ACETAMINOPHEN 500 MG TABLET Take 1 tablet by mouth every * AMLODIPINE 10 MG TABLET Take 1 tablet by mouth once d* CARVEDILOL 6.25 MG TABLET Take 1 tablet by mouth twice * ALBUTEROL SULFATE HFA 90 MCG/* Inhale 2 Puffs as instructed * LISINOPRIL 10 MG TABLET Take 1 tablet by mouth once d* Problem List As Of Date 06/12/2019 Noted Resolved Moderate hypertension [I10] 08/24/2006 Anxiety and depression [F41.9, F32.9] 02/05/2014 Seasonal allergies [J30.2] 02/05/2014 Renal insufficiency [N28.9] 02/05/2014 History of skull fracture [Z87.81] 02/05/2014 Hypertriglyceridemia [E78.1] 02/05/2014 Chronic alcohol abuse [F10.10] 02/05/2014 Unilateral inguinal hernia without obstruction *07/09/2016 NSTEMI (non-ST elevated myocardial infarction) *11/29/2017 Presence of drug-eluting stent in left circumfl*11/29/2017 Acute right-sided low back pain without sciatic*03/16/2019 Other instructions from your clinician: 1. Reschedule w/ cardiology. 2. Reschedule w/ GI. 3. Same medications. 4. Increase the lisinopril to 10 mg daily -- new script sent in. 5. Return in a month for recheck. Prescriptions ordered this encounter Disp Refills Start End AMLODIPINE 10 MG TABLET 30 t* 3 06/12/2019 07/12/2019 Route: ORAL Sig: Take 1 tablet by mouth once daily. CARVEDILOL 6.25 MG TABLET 60 t* 3 06/12/2019 Route: ORAL Sig: Take 1 tablet by mouth twice daily. ALBUTEROL SULFATE HFA 90 MCG/ACTUATI* 1 In* 0 06/12/2019 Cmt: Generic or brand: dispense inhaler preferre d by patient/insurance unless AMBROCIO flag is selected. Route: INHALATION Sig: Inhale 2 Puffs as instructed every 4 hours as needed fo r Wheezing/Shortness of Breath. LISINOPRIL 10 MG TABLET 30 t* 5 06/12/2019 Route: ORAL Sig: Take 1 tablet by mouth once daily. FAMOTIDINE 20 MG TABLET 60 t* 3 06/12/2019 Route: ORAL Sig: Take 1 tablet by mouth twice daily as needed. MELOXICAM 15 MG TABLET 30 t* 1 06/12/2019 Route: ORAL Sig: Take 1 tablet by mouth once daily. With food. SERTRALINE 50 MG TABLET 30 t* 5 06/12/2019 Route: ORAL Sig: Take 2 tablets by mouth once daily. CYCLOBENZAPRINE 10 MG TABLET 90 t* 1 06/12/2019 Route: ORAL Sig: Take 1 tablet by mouth once daily. THIAMINE HCL (VITAMIN B1) 100 MG TAB* 30 t* 3 06/12/2019 Route: ORAL Sig: Take 1 tablet by mouth once daily. OMEPRAZOLE 20 MG CAPSULE,DELAYED REL* 30 c* 5 06/12/2019 Route: ORAL Sig: Take 1 capsule by mouth daily before breakfast. 1/2 hr before meal. ATORVASTATIN 80 MG TABLET 30 t* 5 06/12/2019 Route: ORAL Sig: Take 1 tablet by mouth daily at bedtime. NITROGLYCERIN 0.4 MG SUBLINGUAL TABL* 1 Florentin* 3 06/12/2019 Route: SUBLINGUAL Sig: Dissolve 1 tablet under the tongue as needed. FOR CHEST PAIN. IF NO RELIEF CALL 911 Medications Discontinued During This Encounter metoprolol tartrate, short acting, (* 60 t* 5 02/26/201906/12 Route: ORAL Sig: Take 1 tablet by mouth twice daily. Disc: Other lisinopril (ZESTRIL, PRINIVIL) 5 mg * 30 t* 5 04/06/201905/23 Route: ORAL Sig: Take 1 tablet by mouth once daily. Disc: Dosage adjustment diclofenac sodium (VOLTAREN) 1 % top* 1 Tu* 1 01/29/201905/23 Route: TOPICAL Sig: Apply 2 g to affected area four times daily. Disc: Other famotidine (PEPCID) 20 mg tablet 3 02/26/2019 06/12/2019 Class: Historical Med Route: ORAL Sig: Take 1 tablet by mouth twice daily as needed. Disc: Reason for discontinue is not on file. meloxicam (MOBIC) 15 mg tablet 30 t* 1 05/12/2019 06/12/2019 Route: ORAL Sig: Take 1 tablet by mouth once daily. With food. Disc: Reason for discontinue is not on file. sertraline (ZOLOFT) 50 mg tablet 30 t* 5 02/26/2019 06/12/2019 Class: Historical Med Route: ORAL Sig: Take 2 tablets by mouth once daily. Disc: Reason for discontinue is not on file. cyclobenzaprine (FLEXERIL) 10 mg tab* 90 t* 1 02/26/201906/12 Route: ORAL Sig: Take 1 tablet by mouth once daily. Disc: Reason for discontinue is not on file. thiamine (VITAMIN B1) 100 mg tablet 30 t* 3 02/25/2019 019 Route: ORAL Sig: Take 1 tablet by mouth once daily. Disc: Reason for discontinue is not on file. omeprazole (PRILOSEC) 20 mg capsule 30 c* 5 01/29/20192018 Route: ORAL Sig: Take 1 capsule by mouth daily before breakfast. 1/2 hr before meal. Disc: Reason for discontinue is not on file. atorvastatin (LIPITOR) 80 mg tablet 30 t* 5 12/29/20182018 Route: ORAL Sig: Take 1 tablet by mouth daily at bedtime. Disc: Reason for discontinue is not on file. nitroglycerin sublingual (NITROQUICK* 1 Florentin* 3 12/29/201805/23 Route: SUBLINGUAL Sig: Dissolve 1 tablet under the tongue as needed. FOR CHEST PAIN. IF NO RELIEF CALL 911 Disc: Reason for discontinue is not on file. Letter Text Encounter Status:Closed by KEREN KWON CNP on 06/12/19 progress on 2019-05 PROGRESS HNO ID: [id number] Normal 06-01-2019 [facility] Author: Selin (Pt) Dexter Louie ([id number]) Service: ? Author Type: Physical Therapist Type: Progress Notes Filed: 06/01/2019 3:27 PM Note Text: 06/01/2019 [facility] PHYSICAL THERAPY DISCONTINUANCE OF CARE Plan of Care Period: Start of Care Date: 03/16/19 Last Visit Date: 03/16/2019 Therapy Program: Patient did not return for follow up care a s planned. Please refer to last visit note for interventions provided f or this episode of care. Assessment: Unable to formally assess goal achievement due to non-compli ance with therapy plan of care. Reason for Discontinuation of Care: Patient has not returned to therapy or scheduled additional follow-up appointments. Selin Renteria, PT progress on 2019-05 PROGRESS HNO ID: [id number] Normal 05-28-2019 [facility] Author: Kerry Patel [place] ([id number]) Service: ? Author Type: Nurse Practitioner Type: Progress Notes Filed: 05/28/2019 1:37 PM Note Text: Subjective HPI Bethany Montalvo is a 53 year old male who presents with mart[address] congestion, cough, body aches, and upset stomach. He has also had chest pressure and dizziness that started today. History of NSTEMI. BP elevated today, has had intermittent elevations with alcohol withdrawal but pierce ent says his last binge drinking episode was December 2018. He did have sudaf ed yesterday. Review of Systems Constitutional: Positive for malaise/fatigue. Negative for c hills and fever. HENT: Positive for congestion. Respiratory: Positive for cough and sputum production. Negat arpan for shortness of breath and wheezing. Cardiovascular: Positive for chest pain (pressure). Negative for leg swelling. Gastrointestinal: Negative for nausea and vomiting. Neurological: Positive for dizziness. Negative for tingling, sensory change, focal weakness, seizures, loss of consciousness and weakness. BP (!) 215/128 (BP Site: Right Arm, BP Position: Sitting, BP Cuff Size: Large Adult) Pulse 102 Temp 37.1 ?C (98.7 ?F) (Left Tymp anic) Resp 18 Wt 102.7 kg (226 lb 6.4 oz) SpO2 96% BMI 32.49 kg/m? PAST MEDICAL HISTORY Diagnosis Date - Alcohol abuse - CSF abnormal - GERD (gastroesophageal reflux disease) - HTN (hypertension) - Syncope PAST SURGICAL HISTORY Procedure Laterality Date - COLONOSCOP W/ OR W/O BRSH SPEC 01/12/2019 Colonoscopy - COLONOSCOPY BX SINGLE/MULTI 01/12/2019 - CRANIO/MAXILLO-FACIAL SURGERY 1990 orbital blow out fracture/ [place] - EGD W/O OR W/BRUSH/WASH 01/12/2019 EGD - PTCA SNGL VSSL LC 11/21/2017 JUSTIN left circ - TONSILLECTOMY HX - TREAT SHOULDERBLADE FRACTURE - UPPER GI ENDOSCPY, W/BIOPSY, SNGL OR MULT 01/12/2019 ALLERGIES Sudafed [Pseudoephedrine] MEDICATIONS buPROPion XL (WELLBUTRIN XL) 300 mg 24 hr tablet Take 1 tabl et by mouth once daily. busPIRone (BUSPAR) 10 mg tablet Take 1 tablet by mouth three times daily. famotidine (PEPCID) 20 mg tablet Take 1 tablet by mouth twic e daily as needed. aspirin, enteric coated (ECOTRIN LOW STRENGTH) 81 mg EC tabl et Take 1 tablet by mouth once daily. polyethylene glycol 3350 (MIRALAX) 17 gram/dose powder Take 17 g by mouth once daily. meloxicam (MOBIC) 15 mg tablet Take 1 tablet by mouth once d aily. With food. lisinopril (ZESTRIL, PRINIVIL) 5 mg tablet Take 1 tablet by mouth once daily. melatonin 3 mg tablet Take by mouth. metoprolol tartrate, short acting, (LOPRESSOR) 25 mg tablet Take 1 tablet by mouth twice daily. cyclobenzaprine (FLEXERIL) 10 mg tablet Take 1 tablet by rita th once daily. thiamine (VITAMIN B1) 100 mg tablet Take 1 tablet by mouth o nce daily. omeprazole (PRILOSEC) 20 mg capsule Take 1 capsule by mouth daily before breakfast. 1/2 hr before meal. diclofenac sodium (VOLTAREN) 1 % topical gel Apply 2 g to af fected area four times daily. atorvastatin (LIPITOR) 80 mg tablet Take 1 tablet by mouth d aily at bedtime. nitroglycerin sublingual (NITROQUICK) 0.4 mg SL tablet Disso lve 1 tablet under the tongue as needed. FOR CHEST PAIN. IF NO RELIEF KRISHNA L 911 naltrexone ER (VIVITROL) 380 mg injection Inject 380 mg intr amuscularly one time only. quetiapine fumarate (SEROQUEL ORAL) Take 75 mg by mouth. acetaminophen (TYLENOL EXTRA STRENGTH) 500 mg tablet Take 1 tablet by mouth every 6 hours as needed for Pain. sertraline (ZOLOFT) 50 mg tablet Take 2 tablets by mouth onc e daily. FAMILY HISTORY Problem Relation Age of Onset - Psychiatry Mother - Heart Mother ME 53 - Heart Father ME 51 - Colon Cancer Father Social History Tobacco Use - Smoking status: Former Smoker Packs/day: 0.50 Start date: 12/30/1983 Last attempt to quit: 05/30/2014 Years since quittin.9 - Smokeless tobacco: Former User Types: Snuff - Tobacco comment: Very few, very infrequently. Father smoke d in childhood home. Substance Use Topics - Alcohol use: Yes Alcohol/week: 210.0 standard drinks Types: 84 Cans of Beer (12oz) per week Comment: Binge drinking at times, worse with stress. - Drug use: Yes Comment: Occassional marijuana, 03/2014. Huffed spray paint and glue briefly, ages 8-9. Whippets in mid to late teens. TO Objective Physical Exam Constitutional: He is oriented to person, place, and time. H e has a sickly appearance. He appears distressed. HENT: Head: Normocephalic and atraumatic. Eyes: Conjunctivae are normal. Cardiovascular: Normal rate, regular rhythm, normal heart so unds and intact distal pulses. Exam reveals no gallop and no friction rub. No murmur heard. Pulmonary/Chest: Effort normal and breath sounds normal. No respiratory distress. He has no wheezes. He has no rales. He exhibits no tenderness. Abdominal: Soft. Bowel sounds are normal. He exhibits no dis tension. There is no tenderness. Musculoskeletal: He exhibits no edema. Lymphadenopathy: He has no cervical adenopathy. Neurological: He is alert and oriented to person, place, and time. Gait normal. Skin: Skin is warm and dry. No rash noted. He is not diaphor etic. ASSESSMENT/PLAN: 1. Hypertension, unspecified type - ICD9: 401.9, ICD10: I10 (primary diagnosis) 2. Chest pressure - ICD9: 786.59, ICD10: R07.89 3. Dizziness - ICD9: 780.4, ICD10: R42 4. History of non-ST elevation myocardial infarction (NSTEMI ) - ICD9: 412, ICD10: I25.2 Needs ED evaluation to rule out cardiovascular involvement A SAP given presentation and history. Patient to be transported to [facility] b y father. Patient observed getting into vehicle in the parking lot. Re port called to YONI Awad. All of the above discussed with the patient in detail. Maria Victoria lzoa is in agreement with the above plan. Kerry Patel APRN.TRAWL NET MAKER cnov on 2019-05-28 CNOV Office Visit ([facility]WSTR) Normal 05-28-20 [place] [facility] BETHANY MONTALVO ([id number]) 1965 [facility] Date Time Provider Department ([id number]) 05/28/19 1:00 PM KERRY PATEL [facility] During your visit today, we recorded the following informati on about you: Temperature Pulse Respiration Blood pressure 98.7 degrees 102/minute 18/minute 215/128 Weight 102.7 kg Kerry Patel, GERARDO.TRAWL NET MAKER 05/28/2019 1:37 PM Signed Subjective HPI Bethany Montalvo is a 53 year old male who presents with martita st congestion, cough, body aches, and upset stomach. He has also had chest pressure and dizziness that started today. History of NSTEMI. BP elevat ed today, has had intermittent elevations with alcohol withdrawal but patient says his last binge drinking episode was December 2018. He did have sudafed yesterda y. Review of Systems Constitutional: Positive for malaise/fatigue. Negative for chills and fever. HENT: Positive for congestion. Respiratory: Positive for cough and sputum produ ction. Negative for shortness of breath and wheezing. Cardiovascular: Positive for chest pain (pressure). Negative for leg swelling. Gastrointestinal: Negative for nausea and vomiting. Neurological: Positive for dizziness. Negative for tin gling, sensory change, focal weakness, seizures, loss of consciousness and weakness . BP (!) 215/128 (BP Site: Right Arm, BP Position: Sitting, BP Cuff Size: Large Adult) Pulse 102 Temp 37.1 ?C (98.7 ?F) (Left Tympanic) Resp 18 Wt 102.7 kg (226 lb 6.4 oz) SpO2 96% BMI 32.49 kg/m? PAST MEDICAL HISTORY Diagnosis Date - Alcohol abuse - CSF abnormal - GERD (gastroesophageal reflux disease) - HTN (hypertension) - Syncope PAST SURGICAL HISTORY Procedure Laterality Date - COLONOSCOP W/ OR W/O [facility] SPEC 01/12/2019 Colonoscopy - COLONOSCOPY BX SINGLE/MULTI 01/12/2019 - CRANIO/MAXILLO-FACIAL SURGERY 1989 orbital blow out fracture/ [place] - EGD W/O OR W/BRUSH/WASH 01/12/2019 EGD - PTCA SNGL VSSL LC 11/21/2017 JUSTIN left circ - TONSILLECTOMY HX - TREAT SHOULDERBLADE FRACTURE - UPPER GI ENDOSCPY, W/BIOPSY, SNGL OR MULT 01/12/2019 ALLERGIES Sudafed [Pseudoephedrine] MEDICATIONS buPROPion XL (WELLBUTRIN XL) 300 mg 24 hr tablet Take 1 tablet by mouth once daily. busPIRone (BUSPAR) 10 mg tablet Take 1 tablet by mouth three times daily. famotidine (PEPCID) 20 mg tablet Take 1 tablet by mouth twice daily as needed. aspirin, enteric coated (ECO DAVID LOW STRENGTH) 81 mg EC tablet Take 1 tablet by mouth once daily. polyethylene glycol 3350 (MIRALAX) 17 gr am/dose powder Take 17 g by mouth once daily. meloxicam (MOBIC) 15 mg tablet Take 1 tablet by mouth once daily. With food. lisinopril (ZESTRIL, PRINIVIL) 5 mg tablet Take 1 tablet by mouth once daily. melatonin 3 mg tablet Take by mouth. metoprolol tartrate, short acting, (LOPRESSOR) 25 mg t ablet Take 1 tablet by mouth twice daily. cyclobenzaprine (FLEXERIL) 10 mg tablet Take 1 tablet by rita th once daily. thiamine (VITAMIN B1) 100 mg tablet Take 1 tablet by mouth o nce daily. omeprazole (PRILOSEC) 20 mg capsule Take 1 capsule by mouth daily before breakfast. 1/2 hr before meal. diclofenac sodium (VOLTAREN) 1 % topical gel Apply 2 g to affected area four times daily. atorvastatin (LIPITOR) 80 mg tablet Take 1 tablet by m outh daily at bedtime. nitroglycerin sublingual (NITROQUICK) 0. 4 mg SL tablet Dissolve 1 tablet under the tongue as needed. FOR CHEST PAIN. IF NO RELIEF CALL 911 naltrexone ER (VIVITROL) 380 mg injection Inject 380 mg in tramuscularly one time only. quetiapine fumarate (SEROQUEL ORAL) Take 75 mg by mouth. acetaminophen (TYLENOL EXTRA STRENGTH) 500 mg tablet Take 1 tablet by mouth every 6 hours as needed for Pain. sertraline (ZOLOFT) 50 mg tablet Take 2 tablets by mouth onc e daily. FAMILY HISTORY Problem Relation Age of Onset - Psychiatry Mother - Heart Mother ME 53 - Heart Father [place] 51 - Colon Cancer Father Social History Tobacco Use - Smoking status: Former Smoker Packs/day: 0.50 Start date: 12/30/1983 Last attempt to quit: 05/30/2014 Years since quittin.9 - Smokeless tobacco: Former User Types: Snuff - Tobacco comment: Very few, very infrequently. Father smoke d in childhood home. Substance Use Topics - Alcohol use: Yes Alcohol/week: 210.0 standard drinks Types: 84 Cans of Beer (12oz) per week Comment: Binge drinking at times, worse with stress. - Drug use: Yes Comment: Occassional marijuana, 03/2014. Huffed spray paint and glue briefly, ages 8-9. Whippets in mid to late teens. TO Objective Physical Exam Constitutional: He is oriented to person, place, and time. H e has a sickly appearance. He appears distressed. HENT: Head: Normocephalic and atraumatic. Eyes: Conjunctivae are normal. Cardiovascular: Normal rate, regular rhythm, normal heart sounds and intact distal pulses. Exam reveals no gallop and no friction rub. No murmur heard. Pulmonary/Chest: Effort normal and breath sounds normal. No respiratory distress. He has no wheezes. He has no rales. He exhibits no tenderness. Abdominal: Soft. Bowel sounds are normal. He exh ibits no distension. There is no tenderness. Musculoskeletal: He exhibits no edema. Lymphadenopathy: He has no cervical adenopathy. Neurological: He is alert an d oriented to person, place, and time. Gait normal. Skin: Skin is warm and dry. No rash noted. He is not diaphor etic. ASSESSMENT/PLAN: 1. Hypertension, unspecified type - ICD9: 401.9, ICD10: I10 (primary diagnosis) 2. Chest pressure - ICD9: 786.59, ICD10: R07.89 3. Dizziness - ICD9: 780.4, ICD10: R42 4. History of non-ST elevation myocardial infarction (NSTEMI ) - ICD9: 412, ICD10: I25.2 Needs ED evaluation to rule out cardiovascular involvement A SAP given presentation and history. Patient to be transpor gissel to [facility] by father. Patient observed getting into vehicle in the parking lot . Report called to YONI Awad. All of the above discussed with the pierce ent in detail. Patient is in agreement with the above plan. Kerry Patel APRN.TRAWL NET MAKER Referring Provider: SELF [200] Allergies As of Date: 05/28/2019 Noted Allergy Reaction SUDAFED (PSEUDOEPHEDRINE) 06/26/2016 14 - Other: See Comment s Comments: Prostate infection Date Reviewed: 05/28/2019 Reviewed by: Kerry Patel - Fully Assessed Reason for Visit: URI [115] Cmt: with bodyaches x 6 days Primary Visit Diagnosis:Hypertension, unspecified type [I10] Other Visit Diagnoses:Chest pressure [R07.89] Dizziness [R42] History of non-ST elevation myocardial infarction (NSTEMI) [I25.2] Prescriptions as of 05/28/2019 Sig: BUPROPION XL 300 MG 24 HR TAB Take 1 tablet by mouth once d* BUSPIRONE 10 MG TABLET Take 1 tablet by mouth three * FAMOTIDINE 20 MG TABLET Take 1 tablet by mouth twice * ASPIRIN 81 MG TABLET,DELAYED * Take 1 tablet by mouth once d * POLYETHYLENE GLYCOL 3350 17 G* Take 17 g by mouth once daily . MELOXICAM 15 MG TABLET Take 1 tablet by mouth once d* LISINOPRIL 5 MG TABLET Take 1 tablet by mouth once d* MELATONIN 3 MG TABLET Take by mouth. METOPROLOL TARTRATE 25 MG TAB* Take 1 tablet by mouth twice * CYCLOBENZAPRINE 10 MG TABLET Take 1 tablet by mouth once d* THIAMINE HCL (VITAMIN B1) 100* Take 1 tablet by mouth once d * OMEPRAZOLE 20 MG CAPSULE,JAMILA* Take 1 capsule by mouth daily * DICLOFENAC 1 % TOPICAL GEL Apply 2 g to affected area fo* ATORVASTATIN 80 MG TABLET Take 1 tablet by mouth daily * NITROGLYCERIN 0.4 MG SUBLINGU* Dissolve 1 tablet under the t * NALTREXONE ER 380 MG INTRAMUS* Inject 380 mg intramuscularly * SEROQUEL ORAL Take 75 mg by mouth. ACETAMINOPHEN 500 MG TABLET Take 1 tablet by mouth every * SERTRALINE 50 MG TABLET Take 2 tablets by mouth once * Problem List As Of Date 05/28/2019 Noted Resolved Moderate hypertension [I10] INVALID FOR* Anxiety and depression [F41.9, F32.9] INVALID FOR* Seasonal allergies [J30.2] INVALID FOR* Renal insufficiency [N28.9] INVALID FOR* History of skull fracture [Z87.81] INVALID FOR* Hypertriglyceridemia [E78.1] INVALID FOR* Chronic alcohol abuse [F10.10] INVALID FOR* Unilateral inguinal hernia without obstruction *INVALID FOR* NSTEMI (non-ST elevated myocardial infarction) *INVALID FOR* Presence of drug-eluting stent in left circumfl*INVALID FOR* Acute right-sided low back pain without sciatic*INVALID FOR* Encounter Status:Closed by KERRY PATEL APRN.CNP on 05/28 obsolete on 2019-04 OBSOLETE Refill (LAURENCE) Normal 05-11-2019 [facility] BETHANY MONTALVO ([id number]) 1965 [facility] Time Provider Department ([id number]) 05/11/19 KEREN KWON (MAIA) LAURENCE During your visit today, we recorded the following informati on about you: Alejandrina Love LPN 05/12/2019 9:52 AM Signed Last office visit: 02/26/19 F/u scheduled: none Alejandrina Kwon APRN.CNP 05/12/2019 4:51 PM Signed Script sent. Keren Kwon APRN.CNP Allergies As of Date: 05/11/2019 Noted Allergy Reaction SUDAFED (PSEUDOEPHEDRINE) 06/26/2016 14 - Other: See Comment s Comments: Prostate infection Date Reviewed: 03/03/2019 Reviewed by: Jennyfer Jarquin Ma - Fully Assessed Reason for Visit: Refill Request [94] Visit Diagnoses:Constipation, unspecified constipation type [K59.00] Acute right-sided low back pain without sciatica [M54.5] Right hip pain [M25.551] Order(s):aspirin, enteric coated (ECOTRIN LOW ST RENGTH) 81 mg EC tabletTake 1 tablet by mouth once daily.Disp: 90 tabletRfl: 3 polyethylene glycol 3350 (MIRALAX) 17 gram/dose powderTake 1 7 g by mouth once daily.Disp: 1 BottleRfl: 1 meloxicam (MOBIC) 15 mg tabletTake 1 tablet by mouth once da kehinde. With food.Disp: 30 tabletRfl: 1 Prescriptions as of 05/11/2019 Sig: ASPIRIN 81 MG TABLET,DELAYED * Take 1 tablet by mouth once d * POLYETHYLENE GLYCOL 3350 17 G* Take 17 g by mouth once daily . MELOXICAM 15 MG TABLET Take 1 tablet by mouth once d* LISINOPRIL 5 MG TABLET Take 1 tablet by mouth once d* MELATONIN 3 MG TABLET Take by mouth. SERTRALINE 50 MG TABLET Take 2 tablets by mouth once * METOPROLOL TARTRATE 25 MG TAB* Take 1 tablet by mouth twice * CYCLOBENZAPRINE 10 MG TABLET Take 1 tablet by mouth once d* THIAMINE HCL (VITAMIN B1) 100* Take 1 tablet by mouth once d * OMEPRAZOLE 20 MG CAPSULE,JAMILA* Take 1 capsule by mouth daily * DICLOFENAC 1 % TOPICAL GEL Apply 2 g to affected area fo* ATORVASTATIN 80 MG TABLET Take 1 tablet by mouth daily * NITROGLYCERIN 0.4 MG SUBLINGU* Dissolve 1 tablet under the t * NALTREXONE ER 380 MG INTRAMUS* Inject 380 mg intramuscularly * SEROQUEL ORAL Take 75 mg by mouth. ACETAMINOPHEN 500 MG TABLET Take 1 tablet by mouth every * Problem List As Of Date 05/11/2019 Noted Resolved Moderate hypertension [I10] INVALID FOR* Anxiety and depression [F41.9, F32.9] INVALID FOR* Seasonal allergies [J30.2] INVALID FOR* Renal insufficiency [N28.9] INVALID FOR* History of skull fracture [Z87.81] INVALID FOR* Hypertriglyceridemia [E78.1] INVALID FOR* Chronic alcohol abuse [F10.10] INVALID FOR* Unilateral inguinal hernia without obstruction *INVALID FOR* NSTEMI (non-ST elevated myocardial infarction) *INVALID FOR* Presence of drug-eluting stent in left circumfl*INVALID FOR* Acute right-sided low back pain without sciatic*INVALID FOR* Prescriptions ordered this encounter Disp Refills Start End ASPIRIN 81 MG TABLET,DELAYED RELEASE 90 t* 3 05/12/2019 Route: ORAL Sig: Take 1 tablet by mouth once daily. POLYETHYLENE GLYCOL 3350 17 GRAM/DOS* 1 Florentin* 1 05/12/2019 Route: ORAL Sig: Take 17 g by mouth once daily. MELOXICAM 15 MG TABLET 30 t* 1 05/12/2019 Route: ORAL Sig: Take 1 tablet by mouth once daily. With food. Medications Discontinued During This Encounter aspirin, enteric coated (ECOTRIN LOW* 90 t* 3 12/29/201804/22 Route: ORAL Sig: Take 1 tablet by mouth once daily. Disc: Reason for discontinue is not on file. polyethylene glycol 3350 (MIRALAX) 1* 1 Florentin* 1 01/29/201904/22 Route: ORAL Sig: Take 17 g by mouth once daily. Disc: Reason for discontinue is not on file. meloxicam (MOBIC) 15 mg tablet 30 t* 1 02/26/2019 05/12/2019 Route: ORAL Sig: Take 1 tablet by mouth once daily. With food. Disc: Reason for discontinue is not on file. Encounter Status:Closed by KEREN KWON CNP on 05/12/19 obsolete on 2019-03 OBSOLETE Refill (FAMPWS) Normal 04-05-2019 [facility] BETHANY MONTALVO ([id number]) 1965 [facility] Date Time Provider Department ([id number]) 04/05/19 KEREN KWON (MAIA) FAMPWS During your visit today, we recorded the following informati on about you: Donna Richey LPN 04/06/2019 10:54 AM Signed Patient phones requesting refills as follows: Pending Prescriptions Disp Refills LISINOPRIL 5 MG TABLET 30 tablet 5 Sig: Take 1 tablet by mouth once daily. AMBROCIO: No Please review and advise. Donna Kwon APRN.CNP 04/06/2019 1:10 PM Signed Script sent. Keren Haagen, RETAIL DEPARTMENT RESET.TRAWL NET MAKER Allergies As of Date: 04/05/2019 Noted Allergy Reaction SUDAFED (PSEUDOEPHEDRINE) 06/26/2016 14 - Other: See Comment s Comments: Prostate infection Date Reviewed: 03/03/2019 Reviewed by: Jennyfer Jarquin Ma - Fully Assessed Reason for Visit: Refill Request [94] Visit Diagnosis:Moderate hypertension [I10] Order(s):lisinopril (ZESTRIL, PRINIVIL) 5 mg tabletTake 1 tablet by mouth once daily.Disp: 30 tabletRfl: 5 Prescriptions as of 04/05/2019 Sig: LISINOPRIL 5 MG TABLET Take 1 tablet by mouth once d* MELATONIN 3 MG TABLET Take by mouth. SERTRALINE 50 MG TABLET Take 2 tablets by mouth once * METOPROLOL TARTRATE 25 MG TAB* Take 1 tablet by mouth twice * CYCLOBENZAPRINE 10 MG TABLET Take 1 tablet by mouth once d* MELOXICAM 15 MG TABLET Take 1 tablet by mouth once d* THIAMINE HCL (VITAMIN B1) 100* Take 1 tablet by mouth once d * OMEPRAZOLE 20 MG CAPSULE,JAMILA* Take 1 capsule by mouth daily * POLYETHYLENE GLYCOL 3350 17 G* Take 17 g by mouth once daily . DICLOFENAC 1 % TOPICAL GEL Apply 2 g to affected area fo* ATORVASTATIN 80 MG TABLET Take 1 tablet by mouth daily * NITROGLYCERIN 0.4 MG SUBLINGU* Dissolve 1 tablet under the t * ASPIRIN 81 MG TABLET,DELAYED * Take 1 tablet by mouth once d * NALTREXONE ER 380 MG INTRAMUS* Inject 380 mg intramuscularly * SEROQUEL ORAL Take 75 mg by mouth. ACETAMINOPHEN 500 MG TABLET Take 1 tablet by mouth every * Problem List As Of Date 04/05/2019 Noted Resolved Moderate hypertension [I10] INVALID FOR* Anxiety and depression [F41.9, F32.9] INVALID FOR* Seasonal allergies [J30.2] INVALID FOR* Renal insufficiency [N28.9] INVALID FOR* History of skull fracture [Z87.81] INVALID FOR* Hypertriglyceridemia [E78.1] INVALID FOR* Chronic alcohol abuse [F10.10] INVALID FOR* Unilateral inguinal hernia without obstruction *INVALID FOR* NSTEMI (non-ST elevated myocardial infarction) *INVALID FOR* Presence of drug-eluting stent in left circumfl*INVALID FOR* Acute right-sided low back pain without sciatic*INVALID FOR* Prescriptions ordered this encounter Disp Refills Start End LISINOPRIL 5 MG TABLET 30 t* 5 04/06/2019 Route: ORAL Sig: Take 1 tablet by mouth once daily. Medications Discontinued During This Encounter lisinopril (ZESTRIL, PRINIVIL) 5 mg * 30 t* 5 01/29/201904/06 Route: ORAL Sig: Take 1 tablet by mouth once daily. Disc: Reason for discontinue is not on file. Encounter Status:Closed by KEREN KWON CNP on 04/06/19 cnco on 2017-09-26 Erythrocyte Letter TextDaarmin Rolando Normal 09-27-19 18 [facility] width [facility] 2017 [facility] [employer] [facility] [id number] [place], [place] [address]Yisyx: ([id number]) [phone]/02/2018CC# [id number] M [id number] [facility] [address]L[facility] Mr. Montalvo:We have been unsuccessful in reaching you by phone. Please call our office [phone] for further instructions. We have been trying to reach youregarding testing results and medication changes. Thank you.Sincerely,Cardiology Staff hosp on 2017-09-18 [facility] Get Medical Advice Normal 09-18-19 18 [place] ([facility]) BETHANY MONTALVO ([id number]) 1965 M Date Time Provider Department09/18/17 CANDELARIO ARELLANO During your Medical visit today, we recorded the following information about you:Candelario Arellano MD 09/19/2017 9:05 AM Center SignedDoes he have heart rat es?Lon Cancino, RN, RN 09/19/2017 9:06 AM SignedSent via ([id number]) iOmando.Tarun Cuello, RN, RN 09/20/2017 11:05 AM SignedLeft generic msg for patient to return call. See result note 09-18 as well.Ad tree Cuello, YONI, RN 09/25/2017 3:54 PM SignedPatient submitted heart rates, I have been unsuccessful getting hi m to call usregarding his result note.Candelario Arellano MD 09/25/2017 4:11 PM SignedBlood pressure and pul se are both high. Increase metoprolol to 100 milligramsin the morning and 50 in the evening. Call us with vital signs again in 2 weeks.Lon Cancino RN, RN 09/25/2017 4:18 PM SignedLeft generic msg for patient to return call.Tarun Cuello RN, RN 09/26/2017 10:10 AM SignedLeft generic msg for p atient to return call. Mailed letter to patient for himto contact us.Allergies As of Date: 09/18/2017 Noted Allergy ReactionSUDAFED (PSEUDOEPHEDRINE) 06/26/2016 14 - Other: See Comments Comments: Prostate infection Date Reviewed: 09/10/2017Reviewed by: India Bhatti - Fully AssessedPrescriptions as of 09/18/2017 Sig: OMEPRAZOLE 20 MG CAPSULE,JAMILA* Take 1 capsule by mouth once * ASPIRIN 81 MG TABLET,DELAYED * Take 1 tablet by mouth once d* CYCLOBENZAPRINE 10 MG TABLET Take 1 tablet by mouth once d* ESCITALOPRA M 20 MG TABLET Take 0.5 tablets by mouth onc* NITROGLYCERIN 0.4 MG SUBLINGU* Dissolve 1 tablet under the t* METOPROLOL SUCCINATE ER 50 MG* Take 2 tablets by mouth once * LOSARTAN 100 MG TABLET Take 1 tablet by m outh once d* SIMVASTATIN 40 MG TABLET Take 1 tablet by mouth daily * POLYETHYLENE GLYCOL 3350 17 G* Take 17 g by mouth once daily.Problem List As Of Date 09/18/2017 Noted Resolved Moderate hypertensi on [I10] INVALID FOR* Anxiety and depression [F41.8] INVALID FOR* Seasonal allergies [J30.2] INVALID FO R* Renal insufficiency [N28.9] INVALID FOR* History of skull fracture [Z87.81] INVALID FOR* Hypertriglyceri demia [E78.1] INVALID FOR* Chronic alcohol abuse [F10.10] INVALID FOR* Unilateral inguinal hernia w ithout obstruction *INVALID FOR* Status:Closed by TARUN CUELLO on 09/20/17 progress on 2017-08 PROGRESS HNO ID: [id number]: Candelario mcghee 09-10-2017 Babs Garcia: (none)Author Type: General PhysicianType: Progress NotesFiled: 09/10/2017 Medical 4:16 PMNote Text:PERTINENT CARDIAC Center HISTORYChest pain - atypicalSyncope - (07740) vasodepressorHTNHLADHERENCE TO GUIDELINESACE-I or ARB for HF with prior LVEF<40 (NQF 0081) - N/AASA or Plavix for ASHD (NQF 0067) - N/ABeta mandy for ASHD with prior ME or prior LVEF<40 (NQF 0070) - N/ABeta mandy for HF with prior LVEF<40 (NQF 0083) - N/AACE-I or ARB for ASHD with DM or prior LVEF<40 (NQF 0066) - N/AStatin therapy for ASHD or FHL or DM - metBMI documented and plan if >25 (NQF 0421) - lifestyle recommendation formTobacco use screening and referral (NQF 0028) - lifestyle recommendationformRecommendation for whole food, plant based diet - lifestyle recommendationformCLINICAL IMPRESSION/PLAN:Bethany Montalvo has atypical chest discomfort. He's had no recentepisodes. Stress test showed no evidence of ischemia.He's been encouraged to abstain from alcohol. I repeated the importance ofavoiding postural stress and keeping well hydrated.Blood pressures have been elevated recently, but he has been drinkingmore. We will check lipid profile, basic profile. I've asked him to checkblood pressures twice daily for the next week and call. We've can add asmall dose of Lasix which will help with his volume and blood pressure.I will see him in 6 months or as needed.Written and verbal health teaching given to patient, patient verbalizesunderstanding and agrees with treatment plan.This note was generated using enercast voice recognition system, and theremay be some incorrect words, spellings, and punctuation that were notnoted in checking the note before saving.DIAGNOSIS FOR VISIT:Chest painHypertensionHISTORY OF PRESENT ILLNESSDaarmin Montalvo returns for posthospital follow-up visit. He was recentlyadmitted with chest discomfort and elevated blood pressure. He was seen inconsultation. He was given follow-up visit but did not keep it.He's had no recurrent chest discomfort. He denies orthopnea and edema. Hehas been drinking more alcohol recently and his blood pressure has beenmore elevated. He denies syncope or palpitations, TIAs, amaurosis andclaudication.ALLERGIES:ALLERGIESAllergen Reactions- Sudafed [Pseudoephe* Other: See Comments Prostate infectionCURRENT OUTPATIENT MEDICATIONS:omeprazole (PRILOSEC) 20 mg capsule Take 1 capsule by mouth once daily.1/2 hr before meal.aspirin, enteric coated (ASPIR-81) 81 mg EC tablet Take 1 tablet by mouthonce daily.cyclobenzaprine (FLEXERIL) 10 mg tablet Take 1 tablet by mouth once daily.escitalopram oxalate (LEXAPRO) 20 mg tablet Take 0.5 tablets by mouth oncedaily.nitroglycerin sublingual (NITROQUICK) 0.4 mg SL tablet Dissolve 1 tabletunder the tongue as needed. FOR CHEST PAIN. IF NO RELIEF CALL 911metoprolol succinate ER (TOPROL XL) 50 mg 24 hr tablet Take 2 tablets bymouth once daily.losartan (COZAAR) 100 mg tablet Take 1 tablet by mouth once daily.simvastatin (ZOCOR) 40 mg tablet Take 1 tablet by mouth daily at bedtime.For cholesterols.polyethylene glycol 3350 (MIRALAX) 17 gram/dose powder Take 17 g by mouthonce daily.PHYSICAL EXAMINATION:VITAL SIGNS: BP 140/110 Pulse 64 Ht 5' 9 (1.75m) Wt 232 lb 6.4 oz(105.4kg) BMI 34.30 kg/(m2). Repeat blood pressure was 138/92Chest: Clear to percussion and auscultation. Trachea is midline. Airentry is equal. Cardiac: Regular rhythm. S1 and S2 are normal. PMI isnondisplaced. There is a soft S4 gallop. There is a soft systolicejection murmur. Carotids are brisk without bruits. JVP is less than 10cm. Abdomen: Soft and nontender. Obesity precludes adequate examination.There are no pulsatile masses or bruits. No liver enlargement. Bowelsounds are active. Extremities: Trace edema. Pulses are intact andsymmetrical.[facility] were reviewed. Stress test showed noevidence of ischemia. Ejection fraction was normal.Echocardiogram showed normal ejection fraction. There was no evidence ofacute coronary syndrome.Electronically Signed:Candelario [facility]llano [facility] 3:53 [facility]: Redd Tejeda MD cnov on 2017-09-10 CNOV Office Visit Normal 09-10-2017 [place] ([facility]) BETHANY MONTALVO ([id number]) 1965 Date Time Provider Department09/10/17 3:30 PM [facility] During your visit today, we recorded the following information about you: Pulse Blood pressure Weight Cente r Height 64/minute 140/110 105 .4 kg 1.753 Felipa Arellano MD 09/10/2017 4:16 PM SignedPERTINENT CARDIAC ( [id number]) HISTORYChest pain - atypical Syncope - vasodepressorHTNHLADHERENCE TO GUIDELINESACE-I or ARB for HF with prior LVEFANDlt;40 (NQF 0081 ) - N/AASA or Plavix for ASHD (NQF 0067) - N/ABeta mandy for ASHD with prior ME or prior LVEFANDlt;40 (NQ F 0070) - N/ABeta mandy for HF with prior LVEFANDlt;40 (NQF 0083) - N/AACE-I or ARB for ASHD with DM or p rior LVEFANDlt;40 (NQF 0066) - N/AStatin therapy for ASHD or FHL or DM - metBMI documented and plan i f ANDgt;25 (NQF 0421) - lifestyle recommendation formTobacco use screening and referral (NQF 0028) - lifest yle recommendation formRecommendation for whole food, plant based diet - lifestyle recommendation for mCLINICAL IMPRESSION/PLAN:Bethany Montalvo has atypical chest discomfort. He's had no recent episodes.Stres s test showed no evidence of ischemia.He's been encouraged to abstain from alcohol. I repeated the impo rtance ofavoiding postural stress and keeping well hydrated.Blood pressures have been elevated recently, but he has been drinking more. Weaugusto check lipid profile, basic profile. I've asked him to check bloo dpressures twice daily for the next week and call. We've can add a small dose ofLasix which will help with his volume and blood pressure.I will see him in 6 months or as needed.Written and verbal health teaching flavio uriostegui to patient, patient verbalizesunderstanding and agrees with treatment plan.This note was generated using enercast voice recognition system, and there may besome incorrect words, spellings, and punctuation t hat were not noted inchecking the note before saving.DIAGNOSIS FOR VISIT:Chest painHypertensionHISTORY OF P RESENT ILLNESSDaarmin Montalvo returns for posthospital follow-up visit. He was recentlyadmitted with ch est discomfort and elevated blood pressure. He was seen inconsultation. He was given follow-up visit but di d not keep it.He's had no recurrent chest discomfort. He denies orthopnea and edema. He hasbeen drinking m ore alcohol recently and his blood pressure has been moreelevated. He denies syncope or palpitations, TIA s, amaurosis and claudication.ALLERGIES:ALLERGIESAllergen Reactions- Sudafed [Pseudoephe* Other: See Comm ents Prostate infectionCURRENT OUTPATIENT MEDICATIONS:omeprazole (PRILOSEC) 20 mg capsule Take 1 capsule by mouth once daily. 1/2 hrbefore meal.aspirin, enteric coated (ASPIR-81) 81 mg EC tablet Take 1 tablet by m outh oncedaily.cyclobenzaprine (FLEXERIL) 10 mg tablet Take 1 tablet by mouth once daily.escitalopram oxal ate (LEXAPRO) 20 mg tablet Take 0.5 tablets by mouth oncedaily.nitroglycerin sublingual (NITROQUICK) 0.4 mg SL tablet Dissolve 1 tablet underthe tongue as needed. FOR CHEST PAIN. IF NO RELIEF CALL 911metoprolol succinate ER (TOPROL XL) 50 mg 24 hr tablet Take 2 tablets by mouthonce daily.losartan (COZAAR) 100 mg tablet Take 1 tablet by mouth once daily.simvastatin (ZOCOR) 40 mg tablet Take 1 tablet by mouth daily at bedtime. Forcholesterols.polyethylene glycol 3350 (MIRALAX) 17 gram/dose powder Take 17 g by mouth on cedaily.PHYSICAL EXAMINATION:VITAL SIGNS: BP 140/110 Pulse 64 Ht 5' 9ANDquot; (1.75m) Wt 232 l b 6.4 oz(105.4kg) BMI 34.30 kg/(m2). Repeat blood pressure was 138/92Chest: Clear to percussion and ausc ultation. Trachea is midline. Air entry isequal. Cardiac: Regular rhythm. S1 and S2 are normal. PMI is no ndisplaced.There is a soft S4 gallop. There is a soft systolic ejection murmur. Carotidsare brisk wi thout bruits. JVP is less than 10 cm. Abdomen: Soft andnontender. Obesity precludes adequate examinati on. There are no pulsatilemasses or bruits. No liver enlargement. Bowel sounds are active.Extremities: Trac e edema. Pulses are intact and symmetrical.[facility] were reviewed. Stress test showed no evidence ofischemia. Ejection fraction was normal.Echocardiogram showed normal ejection fraction. Th ere was no evidence of acutecoronary syndrome.Electronically Signed:Candelario Arellano MDBanner [facility] Westuary 2017 3:53 PMCC: Marjorie Cain MD 09/10/2017 3:55 PM SignedLIFESTYLE CHANGEA heal thy lifestyle is the most important component of your overall treatmentplan. Please give serious thought to the following areas and commit to makinglong term changes.EAT A WHOLE FOOD, PLANT BASED DIETThe nutritio n your body gets is more important than the medicine you take.What matters most is the overall way you eat. We encourage you to minimize theuse of animal products (which include dairy and all meats except f atty fish)and use whole, unprocessed plant foods to provide your protein, vitamins andother nutrients. We have a lot of information to share with you on this topic. We also hold Shared Medical Appointments, where you can come visit with in the company of other patients and spend over an hour talking a boutthe challenges of changing the way you eat. This is not a ANDquot;dietANDquot;.It is a way of life that you will keep with you.EXERCISE REGULARLYIt is not important to spend hours in the gym, l ifting weights and perspiringheavily. A total of 2- 3 hours per week of aerobic (causing you to bemoderately short of breath) exercise is sufficient to improve your health.Talk to us before you begin a new exerc ise program, if you have heart diseaseor experience shortness of breath or chest pain.REDUCE STRESSChro roberta emotional and physical stress leads to disease. Ways of reducingstress include meditation, visualiz ation, prayer, yoga and other forms ofrelaxation therapy. Consistency is the short. Find a technique that w orks foryou and do it every day.CULTIVATE RELATIONSHIPSLoneliness and isolation have a major negat arpan impact on health. Seek outothers who can love, care for and nurture you. Avoid hurtful relationships. MAINTAIN IDEAL BODY WEIGHTThe best way to do this is to do all the things above. Our bodies naturallyf ind the right weight if we keep moving and feed ourselves the right food. Ifyour BMI is greater than 2 5, we strongly recommend a referral to a weightmanagement program. Please speak to us or your family p hysician aboutavailable programs.AVOID NICOTINE IN ALL FORMSThis includes all tobacco products, whether ch ewed, smoked, vaped, or rubbed onthe skin. Smoking cessation programs, which can make use of tobaccosubst itutes, medications to suppress cravings and behavior management, areavailable. Please contact your family physician about programs in your area.Referring Provider: CANDELARIO ARELLANO [[id number]]Allergies A s of Date: 09/10/2017 Noted Allergy ReactionSUDAFED (PSEUDOEPHEDRINE) 06/26/2016 14 - Other: See C dave Comments: Prostate infectionDate Reviewed: 09/10/2017Reviewed by: India Reddy) Davy - Fully A Latoya for Visit: Follow Up [171]Primary Visit Diagnosis:Essential hypertension [I10] Other Vis it Diagnoses:Chest pain, unspecified type [R07.9] Hypertension, essential [I10]Order(s):LIPID PANEL BA SIC [SQLIPB] Order #: [id number] FUTURE ALT/SGPT [SQALT] Order #: [id number] FUTURE CK CREATINE KINASE [S QCK] Order #: [id number] FUTURE BASIC METABOLIC PNL [SQBMP] Order #: [id number] FUTUREPrescriptio ns as of 09/10/2017 Sig: OMEPRAZOLE 20 MG CAPSULE,JAMILA* Take 1 capsule by mouth once * ASPIRIN 81 MG T ABLET,DELAYED * Take 1 tablet by mouth once d* CYCLOBENZAPRINE 10 MG TABLET Take 1 tablet by mouth once d* ESCITALOPRAM 20 MG TABLET Take 0.5 tablets by mouth onc* NITROGLYCERIN 0.4 MG SUBLINGU* Dissolve 1 tabl et under the t* METOPROLOL SUCCINATE ER 50 MG* Take 2 tablets by mouth once * LOSARTAN 100 MG TABLET Take 1 tablet by mouth once d* SIMVASTATIN 40 MG TABLET Take 1 tablet by mouth daily * POLYETHYLENE GLYCOL 3350 17 G* Take 17 g by mouth once daily.Problem List As Of Date 09/10/2017 Noted Resolved Moderate hype rtension [I10] INVALID FOR* Anxiety and depression [F41.8] INVALID FOR* Seasonal allergies [J30.2] I NVALID FOR* Renal insufficiency [N28.9] INVALID FOR* History of skull fracture [Z87.81] INVALID FOR* Hypert riglyceridemia [E78.1] INVALID FOR* Chronic alcohol abuse [F10.10] INVALID FOR* Unilateral inguinal her kurt without obstruction *INVALID FOR* Other instructions from your clinician: LIFESTYLE CHANGE A healthy l ifestyle is the most important component of your overall treatment plan. Please give serious thought to the following areas and commit to making remote computer terminal operator changes. EAT A WHOLE FOOD, PLANT BASED DIET The n utrition your body gets is more important than the medicine you take. What matters most is the overall way you eat. We encourage you to minimize the use of animal products (which include dairy and all meats except fatty fish) and use whole, unprocessed plant foods to provide your protein, vitamins and other nutrients. We have a lot of information to share with you on this topic. We also hold Shared Medical Karyn ointments, where you can come visit with Dr. Arellano in the company of other patients and spend over an h our talking about the challenges of changing the way you eat. This is not a diet. It is a way of life that you will keep with you. EXERCISE REGULARLY It is not important to spend hours in the gym, lifting we ights and perspiring heavily. A total of 2-3 hours per week of aerobic (causing you to be moderatel y short of breath) exercise is sufficient to improve your health. Talk to us before you begin a new exerc ise program, if you have heart disease or experience shortness of breath or chest pain. REDUCE STRESS Lois pedro emotional and physical stress leads to disease. Ways of reducing stress include meditation, visualiz ation, prayer, yoga and other forms of relaxation therapy. Consistency is the short. Find a technique that w orks for you and do it every day. CULTIVATE RELATIONSHIPS Loneliness and isolation have a major negat arpan impact on health. Seek out others who can love, care for and nurture you. Avoid hurtful relationships. MAINTAIN IDEAL BODY WEIGHT The best way to do this is to do all the things above. Our bodies naturally find the right weight if we keep moving and feed ourselves the right food. If your BMI is greater than 25, we strongly recommend a referral to a weight management program. Please speak to us or your family physici an about available programs. AVOID NICOTINE IN ALL FORMS This includes all tobacco products, whether ch ewed, smoked, vaped, or rubbed on the skin. Smoking cessation programs, which can make use of tobacco subs titutes, medications to suppress cravings and behavior management, are available. [facility] contact [facility] about programs in your area. Status:Closed by CANDELARIO ARELLANO MD on Encounters Date Type Reason Provider Location 03-18-2018 Ambulatory CANDELARIO ARELLANO [facility] Olivia FAYETTE Ileana 09-10-2017 - Ambulatory Essential (primary) CANDELARIO brown 09-10-2017 hypertension EILEEN ARELLANO ([id number]) CANDELARIO Tejeda 03-10-2020 Patient encounter Congestive heart Ankit Elena Psycho logy procedure failure; nonhypertensive Comment: Consult ([facility] Pt Outreach F/ U) 03-17-2020 - Refill Mixed anxiety and [facility] 03-17-2020 depressive disorder Raphael Comment: Refill Request 03-10-2020 - 03-10-2020 Telemedicine consultation Keli dayana Parker [facility] with patient Procedures Procedure Name Date Provider Location Colonoscopy 01-12-2019 - 01-12-2019 [facility] ([id number]) Plan of Treatment Plan Description Date Location DTAP,TDAP,TD (2 - Td) DTAP,TDAP,TD (2 - Td) 07-10-2026 - [facility] 07-10-2026 ([id number]) LIPID SCREEN LIPID SCREEN 01-06-2025 - [facility] 01-06-2025 ([id number]) COLONOSCOPY COLONOSCOPY 01-13-2024 - [facility] 01-13-2024 ([id number]) DIABETES SCREEN DIABETES SCREEN 01-06-2023 - [facility] 01-06-2023 ([id number]) LDL CHOLESTEROL LDL CHOLESTEROL 01-06-2021 - [facility] 01-06-2021 ([id number]) ANNUAL PCP TEAM CHRONIC ANNUAL PCP TEAM CHRONIC 12-24-2020 - [facility] DISEASE VISIT DISEASE VISIT 12-24-2020 ([id number]) INFLUENZA (#1) INFLUENZA (#1) 2020 - [facility] 03-22-2020 ([id number]) SHINGRIX VACCINE (2 of SHINGRIX VACCINE (2 of 11-10-2019 - [facility] 2) 2) 11-10-2019 ([id number]) BP CONTROLLED (<130/80) BP CONTROLLED (<130/80) 1984 - [facility] 1984 ([id number]) HEPATITIS C SCREENING HEPATITIS C SCREENING 1984 - [facility] 1984 ([id number]) HIV SCREENING HIV SCREENING 1984 - [facility] 1984 ([id number]) no information [facility] ([id number]) Immunizations Vaccine Notes Status Date Location Influenza Seasonal influenza, (completed) 08-28-2018 - [facility] Inj Quadrivalent Age injectable, 08-28-2018 ([id number]) 3+ quadrivalent, contains preservative Influenza Seasonal influenza, seasonal, (completed) 05-20-2014 - [facility] Inj Age 3+ injectable 05-20-2014 ([id number]) Tdap (Age 7+) tetanus toxoid, (completed) 07-10-2016 - [facility] linic reduced diphtheria 07-10-2016 ([id number]) toxoid, and acellular pertussis vaccine, adsorbed Zoster Recombinant zoster vaccine (completed) 09-15-2019 - [facility] (Shingrix) recombinant 09-15-2019 ([id number]) Payers Payer Name Policy Number Location [employer] [id number] [facility] ([id number]) [employer] [id number] [facility] (44 195) The following information is from the original human readable contentNo Payer Records FoundNo Payer Records FoundNo Payer Records Found Social History Type Social History Date Location Description History of tobacco use Current smoker 12-30-1983 - [facility] 05-30-2014 ([id number]) History SDOH Social 4 12-01-2019 - [facility] Phone 12-01-2019 ([id number]) Cigarettes smoked 01-14-2020 - [facility] ic current (pack per day) - 01-14-2020 (26757) Reported Tobacco use and exposure Former user 01-14-2020 [facility] 01-14-2020 ([id number]) History of tobacco use Snuff User [facility] (44956) Alcohol intake [facility] (finding) 01-14-2020 (19183) History SDOH Alcohol 2 12-01-2019 - [facility] linic Frequency 12-01-2019 ([id number]) History SDOH Alcohol Std 5 12-01-2019 - [facility] Drinks 12-01-2019 (17018) Tobacco smoking status Former smoker 01-14-2020 - [facility] NHIS 01-14-2020 (60347) History SDOH Social 1 12-01-2019 - [facility] Get Together 12-01-2019 (33540) History SDOH Social 3 12-01-2019 - [facility] Muslim 12-01-2019 (95199) History SDOH Education 21 12-01-2019 - [facility] 12-01-2019 ([id number]) Tobacco Comment Very few, very 04-02-2014 - [facility] infrequently. Father 04-02-2014 (70796) smoked in childhood home. Alcohol Comment Binge drinking at times, 06-26-2016 - [facility] worse with stress. 06-26-2016 (38820) Sex Assigned At Male [facility] (58805) Exposure to SARS-CoV-2 Not sure [facility] (event) (79259) The following information is from the original human readable contentNo Social History Records FoundNo Social History Records FoundNo Social History Records FoundNo Social History Records FoundNo Social History Records Found Summary Purpose Family History No Family History Records FoundNo Family History Records FoundNo Family History Records Found Advance Directives No Advanced Directives Records FoundNo Advanced Directives Records FoundNo Advanced Directives Records Found Assessments Diagnosis Anxiety and depression Dysthymic disorder Additional Source Comments FOR RECORDS PERTAINING TO PATIENTS WHO ARE OR HAVE BEEN ENROLLED IN A CHEMICAL DEPENDENCY/SUBSTANCE ABUSE PROGRAM, SOME INFORMATION MAY BE OMITTED. This clinical summary was aggregated from multiple sources. Caution should be exercised in using it in the provision of clinical care. This summary normalizes information from multiple sources, and as a consequence, information in this document may materially changethe coding, format and clinical context of patient data. In addition, data may be omittedin some cases. CLINICAL DECISIONS SHOULD BE BASED ON THE PRIMARY CLINICAL RECORDS. [facility] provides no warranty or guarantee of the accuracy or completeness of information in this document. UNRECOGNIZED CONTENT PROVIDED BELOW FOR UNRECOGNIZED SECTION No Status Records FoundNo Status Records FoundNo Status Records Found UNRECOGNIZED CONTENT PROVIDED BELOW FOR UNRECOGNIZED SECTION INFORMATION SOURCE DATE CREATED AUTHOR AUTHOR'S ORGANIZATIO N 01/10/2018 [facility] DATE CREATED AUTHOR AUTHOR'S ORGANIZATIO N 01/10/2018 [facility] DATE CREATED AUTHOR AUTHOR'S ORGANIZATIO N 03/19/2020 [facility] UNRECOGNIZED CONTENT PROVIDED BELOW FOR UNRECOGNIZED SECTION Source Comments In the event this information is protected by the Federal Confidentiality of Alcohol and Drug Abuse Patient Records regulations: The Federal rules restrict any use of the information to criminally investigate or prosecute any alcohol or drug abuse patient.[facility] the event this information is protected by the Federal Confidentiality of Alcohol and Drug Abuse Patient Records regulations: The Federal rules restrict any use of the information to criminally investigate or prosecute any alcohol or drug abuse patient.[facility] UNRECOGNIZED CONTENT PROVIDED BELOW FOR UNRECOGNIZED SECTION Reason for Visit Reason Onset Date Comments Consult 03/10/2020 [facility] Pt Outreach F/U Reason Onset Date Comments Refill Request 03/17/2020 UNRECOGNIZED CONTENT PROVIDED BELOW FOR UNRECOGNIZED SECTION Miscellaneous Notes Telephone Encounter - Ankit Parker - 03/10/2020 9:47 AM EDT Behavioral Health Social Work Progress Note Patient identified for [facility] from: PCP(Keren Kwon CNP) Reason for referral: [facility] Resources: Psychiatry med management;Psychology - talk therapy;Substance abuse [facility] encounter type: Telephone Encounter Attempts to Outreach: 3 attempts Referral made: Psychiatry - External;Psychology - External Psychology-External referral type: Alcohol/Drug Treatment;Therapy Psychiatry-External referral type: Medication Management Reason for external referral: Patient seeking remote computer terminal operator support Final Disposition: Resources given(02-19-20 left , sent mychart msg with resources,msg read, 03-10-20 left , sent f/u mychart msg) Patient Discharged?: Yes Patient reported that caregiver was able to meet their needs today?: N/A [facility] attempted to contact Pt at [phone] for f/u -no answer -left vm to return call to [phone] or send mychart msg This is [facility]'s 3rd outreach to Pt 02-19-20 Left vm 02-19-20 Sent mychart msg with resources, msg read Pt has not responded [facility] will send f/u mychart msg No further contact is indicated at this time Pt has been provided resources in [place] msg, msg read Pt has been provided [facility]'s contact info CONSTANCE Parker March 10, 2020 documented in this encounterTelephone Encounter - Shubham Barrios LPN - 03/18/2020 11:43 AM EDTLast refill 02/18/20 Qty: 60 with 0 refills Last ov 12/25/19 Has appt 03/25/20 Shubham Barrios LPN documented in this encounter
== END ==
PROVIDERS: PCP Registered Nurse; Referring Provider Registered Nurse; Visit Provider Registered Nurse
DX: Z20.828 Contact with and (suspected) exposure to other viral communicable diseases (principal)
CPT/HCPCS: 87635; G2023; U0004

== ENCOUNTER → 2019-12-16 15:52 | Outpatient (CLI) | payer MEDICAID, SELFPAY ==
[2017-11-21 12:50] VITALS: BMI 32.3
[2019-05-31 05:48] VITALS: BMI 33.5
--- NOTE | 2019-12-16 15:58 | RAD_ITS ---
STUDY: X-RAY CHEST REASON FOR EXAM: Male, 53 years old. COUGH. NEGATIVE COVID TEST TECHNIQUE: PA and lateral views of the chest. COMPARISON: Comparison is made with prior examination dated May 31, 2019. FINDINGS: The lungs are clear and expanded. There is no demonstrated pleural abnormality. Normal size heart. Normal mediastinum and bud. Normal visualized pulmonary arteries. Normal visualized aortic arch and descending thoracic aorta. Normal visualized thoracic spine. Normal visualized ribs, clavicles, and shoulders. There is no demonstrated abnormality of the visualized soft tissue structures of the upper abdomen. RAD/Chest PA and Lateral IMPRESSION: Normal x-ray examination of the chest. Electronically Signed: Jose F Restrepo, at 15:20 EDT , Service support ,
--- OUTSIDE RECORDS SUMMARY | 2020-05-03 18:05 | XMS RPT_ITS | CCD ---
:1965 External Reference #:[id number] Author Organization [facility] Care Team Providers Name Role Phone EILEEN, Alejandrina Unavailable Unavailable EILEEN, Alejandrina Unavailable Unavailable EILEEN Unavailable Unavailable EILEEN Unavailable Unavailable Ileana RSanjeev Unavailable Unavailable EILEEN Unavailable Unavailable EILEEN Unavailable Unavailable Ileana RSanjeev Unavailable Unavailable Doyle (Maia) Primary Care Provider Allergies Reported Allergen Reaction(s) Severity Date of Onset Location pseudoephedrine Other: See Comments 06-26-2016 - [facility] Translations: [ Other Fowler PSEUDOEPHEDRINE, Repository PSEUDOEPHEDRINE] Medications Medication Name Sig Date Prescriber Location Acetaminophen acetaminophen (TYLENOL 09-04-2018 Rebecca Devries [facility] EXTRA STRENGTH) 500 mg (4419 5) tablet Take 1 tablet by mouth every 6 hours as needed for Pain. 24 tablet 0 09/04/2018 Active Comment: Take 1 tablet by mouth every 6 hours as needed for Pain. Albuterol albuterol HFA (VENTOLIN HFA) 11-25-2019 Keren Robles ) [facility] 90 mcg/actuation inhaler Doyle (44 195) Inhale 2 Puffs as instructed every 4 hours as needed for Wheezing/Shortness of Breath. 1 Inhaler 5 11/25/2019 Active Comment: Inhale 2 Puffs as instructed every 4 hours as needed for Wheezing/Shortness of Breath. amLODIPine amLODIPine (NORVASC) 02-22-2020 - Keren Robles) [facility] 10 mg tablet 03-23-2020 Doyle (93536) Indications: Hypertension, essential Take 1 tablet by mouth once daily. 30 tablet 3 02/22/2020 03/23/2020 Active Comment: Take 1 tablet by mouth once daily. Aspirin aspirin, enteric coated 10-27-2019 Keren Robles) Eduardo goode [facility] (ECOTRIN LOW STRENGTH) (4419 5) 81 mg EC tablet Take 1 tablet by mouth once daily. 90 tablet 3 10/27/2019 Active Comment: Take 1 tablet by mouth once daily. atorvastatin atorvastatin (LIPITOR) 80 mg 10-27-2019 [facility] ([facility] ) [facility] tablet Indications: Doyle (91367) Hypertriglyceridemia Take 1 tablet by mouth daily at bedtime. 30 tablet 5 10/27/2019 Active Comment: Take 1 tablet by mouth daily at bedtime. benzonatate benzonatate (TESSALON 09-07-2019 Kerry Godoy (Fuel Cell Repairer [facility] PERLE) 100 mg capsule [facility]) Amanda (54553 ) Indications: Viral URI with cough Take 2 capsules by mouth three times daily as needed. 42 capsule 0 09/07/2019 Active Comment: Take 2 capsules by mouth thr ee times daily as needed. buPROPion buPROPion XL (WELLBUTRIN 02-24-2015 [facility] Provider [facility] (31436) XL) 300 mg 24 hr tablet Take 1 tablet by mouth once daily. 0 02/24/2015 Active Comment: Take 1 tablet by mouth once daily. busPIRone busPIRone (BUSPAR) 10 02-18-2020 [facility]) [facility] mg tablet Take 1 tablet (441 95) by mouth three times daily. 90 tablet 1 02/18/2020 Active Comment: Take 1 tablet by mouth three times daily. carvedilol carvedilol (COREG) 6.25 02-22-2020 [facility]) [facility] mg tablet Indications: Doyle (4419 5) Hypertension, essential Take 1 tablet by mouth twice daily. 60 tablet 3 02/22/2020 Active Comment: Take 1 tablet by mouth twice daily. cyclobenzaprine cyclobenzaprine 02-18-2020 [facility]) [facility] (FLEXERIL) 10 mg tablet [facility] (441 95) Take 1 tablet by mouth once daily as needed. 30 tablet 0 02/18/2020 Active Comment: Take 1 tablet by mouth once daily as needed. fluticasone fluticasone (FLONASE) 50 09-07-2019 Kerry Godoy (Fuel Cell Repairer [facility] mcg/actuation nasal [facility]) Amanda (14415) spray Indications: Viral URI with cough Use 2 Sprays in each nostril once daily. Rinse mouth after use. 1 Bottle 0 09/07/2019 Active Comment: Use 2 Sprays in each nostril once daily. Rinse mouth after use. L. gasseri-B. L. gasseri-B. 07-23-2019 Keren ([facility]) [facility] bifidum-B longum bifidum-B longum [facility] (00990) (PROBIOTIC COLON (PROBIOTIC COLON SUPPORT) 1.5 billion SUPPORT) 1.5 billion cell cap cell cap Take by mouth. 0 07/23/2019 Active L. gasseri-B. bifidum-B 07-23-2019 [facility]) anne [facility] (30763) longum (PROBIOTIC COLON SUPPORT) 1.5 billion cell cap Take by mouth. 0 07/23/2019 Active Comment: Take by mouth. lansoprazole lansoprazole 02-18-2020 - Vargas Lloyd [facility] (PREVACID) 30 mg 04-18-2020 (16699) capsule Indications: GERD without esophagitis Take 1 capsule by mouth once daily. 30 capsule 5 02/18/2020 04/18/2020 Active Comment: Take 1 capsule by mouth once daily. Lisinopril lisinopril (ZESTRIL, 10-27-2019 Keren ([facility]) [facility] PRINIVIL) 10 mg tablet [facility] (4419 5) Indications: Hypertension, essential Take 1 tablet by mouth once daily. 30 tablet 5 10/27/2019 Active Comment: Take 1 tablet by mouth once daily. Melatonin melatonin 3 mg tablet Take by [facility] Provide r [facility] (58122) mouth. 0 Active Comment: Take by mouth. meloxicam meloxicam (MOBIC) 15 mg 02-18-2020 [facility] ([facility]) [facility] tablet Indications: [facility] (69024) Acute right-sided low back pain without sciatica , Right hip pain Take 1 tablet by mouth once daily. With food. 30 tablet 1 02/18/2020 Active Comment: Take 1 tablet by mouth once daily. With food. Naltrexone naltrexone ER (VIVITROL) 380 mg [facility] Provi silver [facility] (50237) injection Inject 380 mg intramuscularly one time only. 0 Active Comment: Inject 380 mg intramuscularl y one time only. Nitroglycerin nitroglycerin sublingual 06-12-2019 [facility] ([facility]) [facility] (NITROQUICK) 0.4 mg SL Haagen (4419 5) tablet Indications: NSTEMI (non-ST elevated myocardial infarction) (HCC) Dissolve 1 tablet under the tongue as needed. FOR CHEST PAIN. IF NO RELIEF CALL 911 1 Bottle of 25 3 06/12/2019 Active Comment: Dissolve 1 tablet under the tongue as needed. FOR CHEST PAIN. IF NO RELIEF CALL 911 POLYETHYLENE GLYCOL polyethylene glycol 05-12-2019 Keren ([facility]) [facility] [id number] (MIRALAX) 17 [facility]agen (31498) gram/dose powder Indications: Constipation, unspecified constipation type Take 17 g by mouth once daily. 1 Bottle 1 05/12/2019 Active Comment: Take 17 g by mouth once jenny y. Sertraline sertraline (ZOLOFT) 02-18-2020 - Vida Resendez) [facility] 50 mg tablet 03-17-2020 Glenn (20033) Indications: Anxiety and depression Take 2 tablets by mouth once daily. 60 tablet 0 03/18/2020 Active Comment: Take 2 tablets by mouth once daily. Thiamine thiamine (VITAMIN B1) 100 02-22-2020 Keren (Education Rep) [facility] mg tablet Indications: [facility]agen (4419 5) Chronic alcohol abuse Take 1 tablet by mouth once daily. 30 tablet 3 02/22/2020 Active Comment: Take 1 tablet by mouth once daily. traZODone traZODone (DESYREL) 50 02-18-2020 Keren ([facility]) [facility] mg tablet Indications: Haagen (4419 5) Chronic insomnia Take 1 tablet by mouth at bedtime as needed. 30 tablet 1 02/18/2020 Active Comment: Take 1 tablet by mouth at be dtime as needed. Problems Active Problems Category Problem Name Status Date Location Acute myocardial Myocardial infarction Active 11-29-2017 - [facility] infarction (01020) Alcohol-related Persistent alcohol abuse Active 02-05-2014 - [facility] disorders (39628) Anxiety disorders Mixed anxiety and depressive Active 014 - [facility] disorder (18982) Disorders of lipid Hypertriglyceridemia Active 02-05-2014 - [facility] metabolism (09553) Essential Essential (primary) Active 08-24-2006 - Babs remediosfl hypertension [facility] (40469) Occlusion or stenosis 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 carotid arteries (89259) arteries Other upper Seasonal allergy Active 02-05-2014 - [facility] linic respiratory disease (88818) Unclassified Unknown / UNK(Unknown) Active 09-10-2017 - [facility] (73990) Past or Other Problems Category Problem Name Status Date Location Abdominal hernia Inguinal hernia Completed 07-09-2016 - [facility] (29627) Coronary atherosclerosis Drug coated stent in Completed 11-30-19 - [facility] and other heart disease circumflex branch of (04772) left coronary artery Nonspecific chest pain Chest pain, Completed 09-10-2017 - [facility] (91827) Other diseases of kidney Renal impairment Completed 02-05-2014 - [facility] and ureters (88322) Other injuries and H/O: head injury Completed 02-05-2014 - [facility] conditions due to (67764) external causes Spondylosis; Acute low back pain Completed 03-16-2019 - [facility] intervertebral disc (63832) disorders; other back problems Results Result Name Value Range Unit Interpretation Flag Date Location obsolete on 2020-02 OBSOLETE Refill (FAMPWS) Normal 03-17-2020 [facility] BETHANY MONTALVO ([id number]) 1965 [facility] Time Provider Department (94169) 03/17/20 VARGAS JARQUIN FAMPWS During your visit today, we recorded the following informati on about you: Shubham Barrios LPN 03/18/2020 11:43 AM Signed Last [...] on 2020-02 OBSOLETE Refill (CARDWS) Normal 02-21-2020 Efern [facility] BETHANY MONTALVO ([id number]) 1965 [facility] Date Time Provider Department (83682) 02/21/20 KEREN KWON) LAURENCE During your visit [...] (CARDWS) Normal 02-18-2020 Efren li BETHANY Madsen ([id number]) 1965 [place] Date Time Provider Department (52871) 02/18/20 KEREN KWON (MAIA) CARDWS During your [...] Normal 02-18-2020 Efren li [facility] SELVINBETHANY Rolando ([id number]) 1965 [facility] Date Time Provider Department (25087) 02/18/20 KEREN KWON (MAIA) LAURENCE During your [...] OBSOLETE Refill (CARDWS) Normal 02-18-2020 Efren li [facility] BETHANY MONTALVO ([id number]) 1965 M [facility] Time Provider Department (27380) 02/18/20 KEREN KWON (MAIA) LAURENCE During your [...] mg tabletTake 1 tablet by mouth at [facility] as needed.Disp: 30 tabletRfl: 1 busPIRone (BUSPAR) [...] on 2020-02-12 RENE Telephone (FAMPWS) Normal 02-12-2020 [place] [facility] BETHANY MONTALVO ([id number]) 1965 [facility] Date Time Provider Department (41069) 02/12/20 [facility] During your visit today, we recorded the [...] Dr. Martin 01/10/20, OV note printed from [facility] and given to provider for review. Donna Yanez LPN 02/17/2020 11:14 AM Signed Pt. has not worked since June. He has not had a sleep st udy.. Needs referral to [facility] Marcia Yanez LPN 02/17/2020 11:16 AM Signed Referral faxed to ENT. Pt. also says he is depressed and h aving a hard time leaving his room. Marcia Kwon, TREE LOADER MEAT.CODING ADVISOR 02/17/2020 1:02 PM Signed Then I think that we need to get him re- established with psychiatry/psychology to help us out. Is he doing any counseling? Has he been pa rticipating in AA meeting? I put a referral in for a behavioral health outreach and education social worker to help us out. In the meantime, does he think the sertraline needs increase d? Donna Richey LPN 02/17/2020 3:57 PM Signed TC to pt, left message to return call to office. Donna Hanna LPN 02/18/2020 2:36 PM Signed Patient returned call and went over notes from Keren godoy DATABASE DBA with understanding. Patient said he is doing [...] dose, new rx to [facility] please. Patient also said his Nizatidine rx has been on backorder since November asking for replacement rx to [facility] for that medication christopher Jarquin, MSN TREE LOADER MEAT.CODING ADVISOR 02/18/2020 3:17 PM Signed I am covering [...] for one week, then increase to 2 texjebs=097 mg thereafter. I sent a new script for 60 tabs to his pharmacy. Rec destinee he follow up with Keren in 3 weeks, sooner if needed. I did not give refills, he co uld get refills at his f/u appointment which can be a VV. Vargas Jarquin, MSN TREE LOADER MEAT.MAIA Barrios LPN 02/18/2020 4:15 PM Signed Spoke [...] scheduled at this time. Shubham Jarquin MSN TREE LOADER MEAT.CODING ADVISOR 02/18/2020 4:24 PM Signed Unfortunately there is [...] once daily. Authorizing Provider: VARGAS JARQUIN, MSN TREE LOADER MEAT.MAIA Jarquin, MSN TREE LOADER MEAT.MAIA Barrios LPN 02/18/2020 4:57 PM Signed Pt [...] [facility] [[id number]] Order #: [id number]: 1 sertraline (ZOLOFT) 50 mg tabletTake 2 [...] 150 MG CAPSULE >> Vargas Jarquin, MSN TREE LOADER MEAT.CODING ADVISOR 02/18/2020 3:09 PM Been on back order [...] BARRIOS LPN on 02/18/20 cnpn on [facility]) Normal 01-29-2020 [place] [facility] BETHANY MONTALVO ([id number]) 1965 M [place] Date Time Provider Department (64967) 01/29/20 KEREN KWON ([facility]) [facility] During your visit today, we recorded the following informati on about you: Keren Kwon APRN.CODING ADVISOR 01/29/2020 5:14 PM Signed Can please let [...] 9:17 AM Signed Patient is scheduling with [facility].Melina Bolivarvaughn Pss Allergies As of Date: 01/29/2020 Noted Allergy Reaction SUDAFED (PSEUDOEPHEDRINE) 06/26/2016 14 - Other: See Comment s Comments: Prostate infection Date Reviewed: 12/25/2019 Reviewed by: Donna Richey LPN - Fully Assessed Reason for Visit: Results [95] Primary Visit Diagnosis:Chronic sinusitis, unspecified locat ion [J32.9] Order(s):CONSULT TO ENT [9008] Order #: [id number]: 1 FUT URE Prescriptions as of 01/29/2020 [...] 01/14/2020 More... Encounter Status:Closed by KEREN KWON CODING ADVISOR on 02/08/20 progress on 2020-01 PROGRESS HNO ID: [id number] Normal 01-28-2020 [facility] Author: Omega Ramirez (Rt) [place] ([id number]) Service: ? Author Type: Secondary Market Manager Type: Progress Notes Filed: 01/28/2020 2:52 PM [...] * *Final Report* * * Normal 2020 [facility] IVCON DATE OF EXAM: Jan 28 2020 2:55PM [place] ([id number]) WRM 0294 - MRI BRAIN WO IVCON [...] TMJ degenerative arthropathy. Nonspecific right mastoid effusion. Tire Setter: PSCB Transcribe Date/Time: Jan 28 2020 3:43P Dictated by : ANNIE MCGRAW MD This examination was interpreted and the report reviewed and electronically signed by: ANNIE MCGRAW MD on Jan 28 2020 3:46PM EST [id number] vitamin b12 on 2019 Cobalamin (Vitamin B12) 958 329-4937 pg/mL Normal 2019 [facility] [Mass/Vol] [place] (70967) Comment: Performed By: #### CBCDIF, C MP, LIPB, MG1, TSH, B12, HBA1C ####[facility] [id number], [place] [phone] tsh on 2020-01-07 TSH Qn 0.976 0.270-4.200 uU/mL Normal 01-07-2020 [facility] (06385) Comment: Performed By: #### CBCDIF, C MP, LIPB, MG1, TSH, B12, HBA1C ####[facility], [place] [phone] magnesium on 01-06 Magnesium [Mass/Vol] 2.0 1.7-2.3 mg/dL Normal 0 [facility] (20432) Comment: Performed By: #### CBCDIF, C MP, LIPB, MG1, TSH, B12, HBA1C ####[place] [id number], [place] [phone] lipid panel, basic on 2020-01-07 Cholesterol [Mass/Vol] 181 <200 mg/dL Normal 020 [facility] (48390) Comment: Result Comment: <200 mg/dL, Desirable 200-239 mg/dL, Borderline hi gh >239 mg/dL, High Performed By: #### CBCDIF, C MP, LIPB, MG1, TSH, B12, HBA1C ####[facility], [place] [phone] Cholesterol in HDL [Mass/Vol] 21 >39 mg/dL Low 01-07-2020 [facility] (11071) Comment: Result Comment: 40-59 mg/dL, Acceptable >59 mg/dL, High: Negative ri sk factor for coronary heart disease <40 mg/dL, Low: Positive ris k factor for coronary heart disease Performed By: #### CBCDIF, C MP, LIPB, MG1, TSH, B12, HBA1C ####[place] [id number], [place] [phone] Cholesterol in LDL 118 <100 mg/dL High 01-07-2020 [facility] [Mass/Vol] (07893) Comment: Result Comment: <100 mg/dL, Optimal 100-129 mg/dL, Near optimal/ above optimal 130-159 mg/dL, Borderline hi gh 160-189 mg/dL, High >189 mg/dL, Very high Secondary prevention optimal LDL Cholesterol levels are recommended to be < 70 mg/dL Performed By: #### CBCDIF, C MP, LIPB, MG1, TSH, B12, HBA1C ####[facility] [id number], [place] [phone] Fasting Time 14 hrs Normal 01-07-2020 [facility] (65343) Comment: Performed By: #### CBCDIF, C MP, LIPB, MG1, TSH, B12, HBA1C ####[facility], [place] [phone] LDL:HDL Ratio 5.62 <2.54 High 01-07-2020 [facility] (71310) Comment: Result Comment: Reference: 1. National Cholesterol Educ ation Program ATP III Guideline At-A-Glance Quick Desk Reference: National Heart, Lung, and Blood Lipan. National Institutes of Health. 2001: NIH Publication No. 01-3305. 2. An International Atherosc lerosis Society position paper: global recommendations for the management of dyslipidemia: executive summary, Atherosclerosis. 2014: 232(2):410-413. Performed By: #### CBCDIF, C MP, LIPB, MG1, TSH, B12, HBA1C ####[facility] [address], [place] [phone] Non HDL Cholesterol 160 <130 mg/dL High 01-07-2020 [facility] (98354) Comment: Result Comment: <130 mg/dL, Optimal 130-159 mg/dL, Near optimal/ above optimal 160-189 mg/dL, Borderline hi gh 190-219 mg/dL, High >219 mg/dL, Very high Secondary prevention optimal non HDL Cholesterol levels are recommended to be < 100 mg/dL Performed By: #### CBCDIF, C MP, LIPB, MG1, TSH, B12, HBA1C ####[facility], [place] [phone] TC:HDL Ratio 8.62 <5.10 High 01-07-2020 [facility] (36545) Comment: Performed By: #### CBCDIF, C MP, LIPB, MG1, TSH, B12, HBA1C ####[place] [id number], [place] [phone] Triglyceride [Mass/Vol] 209 <150 mg/dL High 2019 [facility] (15777) Comment: Result Comment: <150 mg/dL, Normal 150-199 mg/dL, Borderline hi gh 200-499 mg/dL, High >499 mg/dL, Very high Performed By: #### CBCDIF, C MP, LIPB, MG1, TSH, B12, HBA1C ####[place] [address], [place] [phone] VLDL Cholesterol 42 <30 mg/dL High 01-07-2020 [facility] (75513) Comment: Performed By: #### CBCDIF, C MP, LIPB, MG1, TSH, B12, HBA1C ####[place] [address], [place] [phone] hemoglobin a1c on 2 HbA1c (Bld) [Mass fraction] 4.8 4.3-5.6 % Normal [facility] (65736) Comment: Result Comment: [place] Flora betes Association guidelines indicate that patients with HgbA1c in the range 5.7-6.4% are at increased risk for development of diabetes, and intervention by lifestyle modification may be beneficial. HgbA1c greater o r equal to 6.5% is considered diagnostic of diabetes. Performed By: #### CBCDIF, C MP, LIPB, MG1, TSH, B12, HBA1C ####[place] [address], [place] [phone] HbA1c (Bld) [Mass fraction] 91 mg/dL Normal [facility] (68245) Comment: Result Comment: eAG: (Estima gissel average glucose) is a calculated value from HgbA1c and is patient registration representative of the average blood glucose level in the last 2-3 month period. Performed By: #### CBCDIF, C MP, LIPB, MG1, TSH, B12, HBA1C ####[place] [address], [place] [phone] comp metabolic panel on 2020-01-07 Albumin [Mass/Vol] 4.7 3.9-4.9 g/dL Normal 01-07-2020 [facility] (25652) Comment: Performed By: #### CBCDIF, C MP, LIPB, MG1, TSH, B12, HBA1C ####[place] [address] [place], [place] [phone] ALP [Catalytic activity/Vol] 63 38-113 U/L Normal 0 01-07-2020 [facility] (85778) Comment: Performed By: #### CBCDIF, C MP, LIPB, MG1, TSH, B12, HBA1C ####[place] [address], [place] [phone] ALT [Catalytic activity/Vol] 56 10-54 U/L High 0 01-07-2020 [facility] (54575) Comment: Performed By: #### CBCDIF, C MP, LIPB, MG1, TSH, B12, HBA1C ####[place] [address], [place] [phone] Anion gap [Moles/Vol] 14 9-18 mmol/L Normal 01-07-20 [facility] (48239) Comment: Performed By: #### CBCDIF, C MP, LIPB, MG1, TSH, B12, HBA1C ####[place] [id number], [place] [phone] AST [Catalytic activity/Vol] 46 14-40 U/L High 0 01-07-2020 [facility] (94308) Comment: Performed By: #### CBCDIF, C MP, LIPB, MG1, TSH, B12, HBA1C ####[facility], [place] [phone] Bilirubin [Mass/Vol] 0.4 0.2-1.3 mg/dL Normal 0 [facility] (34445) Comment: Performed By: #### CBCDIF, C MP, LIPB, MG1, TSH, B12, HBA1C ####[place] [id number], [place] [phone] Calcium [Mass/Vol] 9.6 8.5-10.2 mg/dL Normal 01-07-2020 [facility] (67432) Comment: Performed By: #### CBCDIF, C MP, LIPB, MG1, TSH, B12, HBA1C ####[place] [address] [place], [place] [phone] Chloride [Moles/Vol] 104 97-105 mmol/L Normal 0 [facility] (42755) Comment: Performed By: #### CBCDIF, C MP, LIPB, MG1, TSH, B12, HBA1C ####[facility], [place] [phone] CO2 [Moles/Vol] 23 22-30 mmol/L Normal 01-07-2020 [facility] (55850) Comment: Performed By: #### CBCDIF, C MP, LIPB, MG1, TSH, B12, HBA1C ####[facility], [place] [phone] Creatinine [Mass/Vol] 1.19 0.73-1.22 mg/dL Normal 01-07-20 20 [facility] (68561) Comment: Performed By: #### CBCDIF, C MP, LIPB, MG1, TSH, B12, HBA1C ####[place] [id number] [place], [place] [phone] eGFR- Amer. >60 Normal 01-07-2020 [facility] (46340) Comment: Performed By: #### CBCDIF, C MP, LIPB, MG1, TSH, B12, HBA1C ####[facility] [address] [place], [place] [phone] GFR/1.73 sq M predicted >60 mL/min/{1.73_m2} Normal 01-07-2020 [facility] among non-blacks MDRD [place] (09992) (S/P/Bld) [Vol rate/Area] Comment: Result Comment: eGFR [...] C MP, LIPB, MG1, TSH, B12, HBA1C ####[facility] [address] [place], [place] [phone] Glucose [Mass/Vol] 101 74-99 mg/dL High 01-07-2020 [facility] (46910) Comment: Result Comment: The [place] Diabetes Association (ADA) provides guidance for cutoff [...] for diagnosis of diabetes. Reference: Standards of [facility] Care in Diabetes 2016, [place] Diabetes Association. Diabetes Care. 2016.39(Suppl 1). Performed By: #### CBCDIF, C MP, LIPB, MG1, TSH, B12, HBA1C ####[facility], [place] [phone] Potassium [Moles/Vol] 4.7 3.7-5.1 mmol/L Normal 01-07-20 [facility] (60842) Comment: Performed By: #### CBCDIF, C MP, LIPB, MG1, TSH, B12, HBA1C ####[place] [id number], [place] [phone] Protein [Mass/Vol] 7.6 6.3-8.0 g/dL Normal 01-07-2020 [facility] (59859) Comment: Performed By: #### CBCDIF, C MP, LIPB, MG1, TSH, B12, HBA1C ####[place] [address], [place] [phone] Sodium [Moles/Vol] 141 136-144 mmol/L Normal 01-07-2020 [facility] (80220) Comment: Performed By: #### CBCDIF, C MP, LIPB, MG1, TSH, B12, HBA1C ####[place] [id number], [place] [phone] Urea nitrogen [Mass/Vol] 19 9-24 mg/dL Normal 01-06 [facility] (30833) Comment: Performed By: #### CBCDIF, C MP, LIPB, MG1, TSH, B12, HBA1C ####[place] [id number], [place] [phone] cbc and differential on 2020-01-07 Abs Baso <0.03 <0.11 Normal 01-07-2020 [facility] (41123) Comment: Performed By: #### CBCDIF, C MP, LIPB, MG1, TSH, B12, HBA1C ####[facility], [place] [phone] Abs Ray 0.46 <0.87 k/uL Normal 01-07-2020 [facility] (07128) Comment: Performed By: #### CBCDIF, C MP, LIPB, MG1, TSH, B12, HBA1C ####[facility], [place] [phone] Abs Neut 3.18 1.45-7.50 k/uL Normal 01-07-2020 [facility] (70149) Comment: Performed By: #### CBCDIF, C MP, LIPB, MG1, TSH, B12, HBA1C ####[place] [address], [place] [phone] Absolute nRBC <0.01 <0.01 Normal 01-07-2020 [facility] (98750) Comment: Performed By: #### CBCDIF, C MP, LIPB, MG1, TSH, B12, HBA1C ####[place] [address], [place] [phone] Basophils/100 WBC (Bld) 0.4 % Normal 2019 [facility] (89697) Comment: Performed By: #### CBCDIF, C MP, LIPB, MG1, TSH, B12, HBA1C ####[place] [address], [place] [phone] DTYPE Auto Diff Normal 01-07-2020 [facility] (94994) Comment: Performed By: #### CBCDIF, C MP, LIPB, MG1, TSH, B12, HBA1C ####[place] [address], [place] [phone] Eosinophils (Bld) [#/Vol] 0.13 <0.46 k/uL Normal 12-20 [facility] (48754) Comment: Performed By: #### CBCDIF, C MP, LIPB, MG1, TSH, B12, HBA1C ####[place] [address], [place] [phone] Eosinophils/100 WBC (Bld) 2.4 % Normal 12-20 [facility] (62840) Comment: Performed By: #### CBCDIF, C MP, LIPB, MG1, TSH, B12, HBA1C ####[facility] [address], [place] [phone] Erythrocyte distribution 12.8 11.5-15.0 % Normal 01-06 [facility] width (RBC) [Ratio] [place] (39498) Comment: Performed By: #### CBCDIF, C MP, LIPB, MG1, TSH, B12, HBA1C ####[facility] [address], [place] [phone] Hematocrit (Bld) [Volume 48.1 39.0-51.0 % Normal 01-06 [facility] fraction] [place] (47567) Comment: Performed By: #### CBCDIF, C MP, LIPB, MG1, TSH, B12, HBA1C ####[facility] [address], [place] [phone] Hemoglobin (Bld) 16.1 13.0-17.0 g/dL Normal 01-07-2020 [facility] [Mass/Vol] [place] (21324) Comment: Performed By: #### CBCDIF, C MP, LIPB, MG1, TSH, B12, HBA1C ####[facility] [address], [place] [phone] Lymphocytes (Bld) [#/Vol] 1.55 1.00-4.00 k/uL Normal 12-20 [facility] (22628) Comment: Performed By: #### CBCDIF, C MP, LIPB, MG1, TSH, B12, HBA1C ####[facility] [address], [place] [phone] Lymphocytes/100 WBC (Bld) 29.0 % Normal 12-20 [facility] (95155) Comment: Performed By: #### CBCDIF, C MP, LIPB, MG1, TSH, B12, HBA1C ####[facility], [place] [phone] MCH (RBC) [Entitic mass] 30.4 26.0-34.0 pG Normal 01-06 [facility] (79651) Comment: Performed By: #### CBCDIF, C MP, LIPB, MG1, TSH, B12, HBA1C ####[place] [id number], [place] [phone] MCHC (RBC) [Mass/Vol] 33.5 30.5-36.0 g/dL Normal 01-07-20 [facility] (83847) Comment: Performed By: #### CBCDIF, C MP, LIPB, MG1, TSH, B12, HBA1C ####[place] [address], [place] [phone] MCV (RBC) [Entitic vol] 90.8 80.0-100.0 fL Normal 01-06 [facility] (03955) Comment: Performed By: #### CBCDIF, C MP, LIPB, MG1, TSH, B12, HBA1C ####[facility], [place] [phone] Monocytes/100 WBC (Bld) 8.6 % Normal 2019 [facility] (73844) Comment: Performed By: #### CBCDIF, C MP, LIPB, MG1, TSH, B12, HBA1C ####[facility], [place] [phone] Neutrophils/100 WBC (Bld) 59.6 % Normal 12-20 [facility] (13120) Comment: Performed By: #### CBCDIF, C MP, LIPB, MG1, TSH, B12, HBA1C ####[facility], [place] [phone] NRBCs 0.0 0 /100 WBC Normal 01-07-2020 [facility] (79183) Comment: Performed By: #### CBCDIF, C MP, LIPB, MG1, TSH, B12, HBA1C ####[facility] [address], [place] [phone] Platelet mean volume 10.0 9.0-12.7 fL Normal 0 [facility] (Bld) [Entitic vol] [place] (47266) Comment: Performed By: #### CBCDIF, C MP, LIPB, MG1, TSH, B12, HBA1C ####[facility] [address], [place] [phone] Platelets (Bld) [#/Vol] 183 150-400 k/uL Normal 2019 [facility] (49702) Comment: Performed By: #### CBCDIF, C MP, LIPB, MG1, TSH, B12, HBA1C ####[place] [address], [place] [phone] RBC (Bld) [#/Vol] 5.30 4.20-6.00 m/uL Normal 01-07-2020 [facility] (89861) Comment: Performed By: #### CBCDIF, C MP, LIPB, MG1, TSH, B12, HBA1C ####[facility] [address], [place] [phone] WBC (Bld) [#/Vol] 5.34 3.70-11.00 k/uL Normal 01-07-2020 [facility] (23740) Comment: Performed By: #### CBCDIF, C MP, LIPB, MG1, TSH, B12, HBA1C ####[facility] [address], [place] [phone] progress on 2019-12 PROGRESS HNO ID: [id number] Normal 12-25-2019 [facility] Author: Keren (Education Rep) anne [place] ([id number]) Service: ? Author Type: Nurse Practitioner Type: [...] agrees to the visit: Yes Patient Location: [facility] Bethany Montalvo is a 53 year old male who is contacted alice roblero for a virtual visit This is an established patient of Dr. Keren Kwon APRN.CODING ADVISOR Reports: + head pain. Headaches started about [...] to the left circ. He followed with [facility]. No palpitations. No swelling in the [...] Onset - Psychiatry Mother - Heart Mother SC 53 - Heart Father SC 51 - Colon Cancer Father Patient Allergies [...] ICD10: R07.89 Phone call by nursing to [facility]. Appt scheduled for 12/31/2019. Discussed with [...] on 2019-12-25 RENE Telephone (FAMPWS) Normal 12-25-2019 [place] [facility] BETHANY MONTALVO ([id number]) 1965 M [place] Date Time Provider Department (78836) 12/25/19 KEREN KWON) [facility] During your visit today, we recorded the [...] on 01/19/20 CNPN Telephone (FAMPWS) Normal 12-25-2019 [facility] BETHANY MONTALVO ([id number]) 1965 M [facility] Time Provider Department (17295) 12/25/19 KEREN KWON (CODING ADVISOR) BG During your visit today, we recorded the following informati on about you: Keren Kwon APRN.MAIA 12/25/2019 1:38 PM Signed Bethany has been having some symptoms of chest discomfort, SOB, fatigue. 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 Known to Dr Sanjeev Noyola. Can we please try to get him re-set up. Donna Richey LPN 12/25/2019 2:20 PM Signed TC to [facility], spoke with Phyllis. Lloyd he states pt follows with Dr. Martin, transferred to [facility]. Appt scheduled with Dr. Martin for December [...] 12/25/19 progress on 2019-11 PROGRESS HNO ID: [id number] Normal 12-08-2019 [facility] Author: Momo Wilson [place] Service: ? ([id number]) Author Type: ? Type: Progress Notes Filed: 12/08/2019 10:08 AM Note Text: [id number] Unable to reach pt Left Voice Message-Monitoring complete Routed to PCP for follow up Ruby, this is the [facility] calling. We are sorry we missed you, but your care is important to us . We would like to follow up on your MyChart Traffic Operations Manager re sponse. Please take a moment to complete the questionnaire daily. If any of your symptoms have worsened, please call you PCP o ffice to discuss. [facility] and NON CCF patients may call: ? [facility] Nurse cotton picker at [phone] ? Their PCP Office Caregivers may call: ? [facility] Employee Hotline: [phone] ? [facility] Employee Boost appointment for 11/02 emotional support: [phone] If you are finding it more difficult to breathe, or more philomena rt of breath when walking or climbing stairs, please go to the nearest ED . SIGNATURE: Momo Wilson PATIENT NAME: eBthany Montalvo DATE: December 08, 2019 TIME: 10:06 AM cnptoutreach on CNPTOUTREACH Patient Outreach (EXEPMN) Normal 0 12-08-2019 [place] [facility] BETHANY MONTALVO ([id number]) 1965 [facility] Time Provider Department (87162) 12/08/19 MOMO WILSON (RN) EXEPMN During your visit today, we recorded the following informati on about you: Momo Wilson 12/08/2019 10:08 AM Signed [id number] Unable to reach pt Left Voice Message-Monitoring complete Routed to PCP for follow up Ruby, this is the [facility] calling. We are sorry we missed you, but your care is important to us . We would like to follow up on your MyChart Traffic Operations Manager re sponse. Please take a moment to complete the questionnaire daily. If any of your symptoms have worsened, please ca ll you PCP office to discuss. [facility] and NON CCF patients may call: ? [facility] Nurse cotton picker at [phone] ? Their PCP Office Caregivers may call: ? [facility] Employee Hotline: [phone] ? [facility] Employee Boost appointment for 11/02 emotional support: [phone] If you are finding it more difficult [...] Assessed Reason for Visit: Covid Follow Up [3373] Cmt: Suspected, Day 14, Monitoring Co mplete [...] MOMO WILSON on 12/08/19 [facility]npn on 2019[facility]12-[facility]) Normal 12-08-2019 [place] [facility] BETHANY MONTALVO ([id number]) 1965 [facility] Date Time Provider Department ([id number]) 12/08/19 KEREN KWON ([facility]) FAMPWS During your visit today, we recorded the following informati on about you: Rossana Jain RN 12/08/2019 8:55 AM Signed [facility] scheduling called, verified pt by name and birthdate. Pt is at their facility for COVID 19 test and they need an orde r. Printed order and faxed to [phone]. Rossana Jain RN Allergies As of Date: [...] 12/08/19 progress on 2019-11 PROGRESS HNO ID: [id number] Normal 12-03-2019 [facility] Author: Momo Wilson [place] Service: ? ([id number]) Author Type: ? Type: Progress Notes Filed: 12/03/2019 11:02 AM Note Text: Summary: Suspect Covid, Intake attempt x 2 [id number] Intake attempt x 2, will attempt call back on 12/07 (Day 14) Voice Message myThings, this is the [facility] calling. We are sorry we missed you, but your care is important to us . We would like to follow up on your MyChart Traffic Operations Manager clementina hope. Please take a moment to complete the questionnaire daily. If any of your symptoms have worsened, please call you PCP o ffice to discuss. CCF and NON CCF patients may call: ? [facility] Nurse cotton picker at [phone] ? Their PCP Office Caregivers may call: ? [facility] Employee Hotline: [phone] ? [facility] Employee Boost appointment for 11/02 emotional support: [phone] If you are finding it more difficult to breathe, or more philomena rt of breath when walking or climbing stairs, please go to the nearest ED . SIGNATURE: Momo Wilson PATIENT NAME: Bethany Montalvo DATE: December 03, 2019 TIME: 10:59 AM cnptoutreach on CNPTOUTREACH Patient Outreach (EXEPMN) Normal 0 12-03-2019 [place] [facility] BETHANY MONTALVO ([id number]) 1965 M [facility] Time Provider Department (20738) 12/03/19 MOMO WILSON (YONI) EXEPMN During your visit today, we recorded the following informati on about you: Momo Wilson 12/03/2019 11:02 AM Signed [id number] Intake attempt x 2, will attempt call back on 12/07 (Day 14) Voice Message Ruby, this is the [facility] calling. We are sorry we missed you, but your care is important to us . We would like to follow up on your MyChart Traffic Operations Manager clementina hope. Please take a moment to complete the questionnaire daily. If any of your symptoms have worsened, please ca ll you PCP office to discuss. C[facility] and NON CCF patients may call: ? [facility]CF Nurse cotton picker at [phone] ? Their PCP Office Caregivers may call: ? [facility] Employee Hotline: [phone] ? [facility] Employee Boost appointment for 11/02 emotional support: [phone] If you are finding it more difficult [...] Assessed Reason for Visit: Covid Follow Up [3080] Cmt: Suspect, Intake Prescriptions as of 12/03/2019 [...] 12/03/19 progress on 2019-11 PROGRESS HNO ID: [id number] Normal 12-02-2019 [facility] Author: Momo Wilson [place] Service: ? ([id number]) Author Type: ? Type: Progress Notes Filed: 12/02/2019 11:51 AM Note Text: [id number] Intake attempted, needs Traffic Operations Manager Day 8 since symptom onset Voice Message Ruby, this is the [facility] calling. We are sorry we missed you, but your care is important to us . We would like to follow up on your MyChart Traffic Operations Manager re sponse. Please take a moment to complete the questionnaire daily. If any of your symptoms have worsened, please call you PCP o ffice to discuss. [facility] and NON CCF patients may call: ? [facility] Nurse cotton picker at [phone] ? Their PCP Office Caregivers may call: ? [facility] Employee Hotline: [phone] ? [facility] Employee Boost appointment for 11/02 emotional support: [phone] If you are finding it more difficult to breathe, or more philomena rt of breath when walking or climbing stairs, please go to the nearest ED . Disposition: Unable to reach, Left Voicemail - Continue Toni simon SIGNATURE: Momo Wilson PATIENT NAME: Bethany Montalvo DATE: December 02, 2019 TIME: 11:48 AM cnptoutreach on CNPTOUTREACH Patient Outreach (AMBCMG) Normal 0 12-02-2019 [place] [facility] BETHANY MONTALVO ([id number]) 1965 M [place] Date Time Provider Department () 12/02/19 [facility]L MTZ (RN[facility] During your visit today, we recorded the following informati on about you: Pearl Mtz, RN, RN 01/04/2020 3:00 AM Signed [facility] TRIGGERED OUTREACH FYI: Monitoring Call: Day 7 from symptom onset 11/25/19 Ruby, this is the [facility] calling, november I spe ak to Bethany Montalvo Patient identified by name and I'm calling you because we see your resp onse in [facility]. Can we discuss if you are getting better or worse and how we can work together to help you recover? Patient response in [facility] Traffic Operations Manager alerted COVID-19 outreach team: Worsening symptoms of SOB Weakness Appetite Diarrhea. Concerning result within [facility] Traffic Operations Manager: Temperature of 99.1 SOB worse Weakness worse. [...] like to speak with a social work tractor driver teamster to help give you support for any [...] [facility]CF patients may call: ? [facility]CF Nurse cotton picker at [phone] ? Their PCP Office Caregivers may call: ? [facility] Employee Hotline: 319.727.1659 ? [facility] Employee Boost appointment for 11/02 emotional support: [phone] Patient verbalizes understanding of information provid ed. Denies any further questions at this time. Please visit CDC.gov website for any updated information about Coronavirus. You can also find information on the [facility] website. Additional information can be found on [facility] and [facility] web sites: https://www.cdc.gov/coronavirus/2019-nCoV/index.html https://[facility].org/coronavirus SIGNATURE: Pearl Mtz RN PATIENT NAME: Bethany godoy DATE: December 02, 2019 TIME: 11:58 AM Allergies As of Date: 12/02/2019 Noted Allergy Reaction SUDAFED (PSEUDOEPHEDRINE) 06/26/2016 14 - Other: See Comment s Comments: Prostate infection Date Reviewed: 09/07/2019 Reviewed by: Kerry Patel - Fully Assessed Reason for Visit: Covid Follow Up [5670] Cmt: Traffic Operations Manager Esteban Benji audra Call Prescriptions as of [...] Encounter Status:Closed by MIRELA WRIGHT [facility]04[facility] Patient Outreach (EXEPMN) Normal 0 12-02-2019 [facility] BETHANY MONTALVO ([id number]) 1965 [facility] Date Time Provider Department (88887) 12/02/19 MOMO WILSON (RN) EXEPMN During your visit today, we recorded the following informati on about you: Momo Wilson 12/02/2019 11:51 AM Signed [id number] Intake attempted, needs Traffic Operations Manager Day 8 since symptom onset Voice Message Ruby, this is the [facility] calling. We are sorry we missed you, but your care is important to us . We would like to follow up on your MyChart Traffic Operations Manager re sponse. Please take a moment to complete the questionnaire daily. If any of your symptoms have worsened, please ca ll you PCP office to discuss. [facility] and NON CCF patients may call: ? [facility] Nurse cotton picker at [phone] ? Their PCP Office Caregivers may call: ? [facility] Employee Hotline: [phone] ? [facility] Employee Boost appointment for 11/02 emotional support: [phone] If you are finding it more difficult [...] Assessed Reason for Visit: Covid Follow Up [1108] Cmt: Suspected, Outreach Intake Prescriptions as of [...] 12/02/19 progress on 2019-11 PROGRESS HNO ID: [id number] Normal 12-01-2019 [facility] Author: Keren (Education Rep) Doyle oLuie ([id number]) Service: ? Author Type: Nurse Practitioner Type: [...] agrees to the visit: Yes Patient Location: [facility] Bethany Montalvo is a 53 year old male who is contacted alice roblero for a virtual visit This is an established patient of Dr. Keren Kwon APRN.CODING ADVISOR. Able to use video, but audio unsuccessful. [...] Onset - Psychiatry Mother - Heart Mother SC 53 - Heart Father SC 51 - Colon Cancer Father Patient Allergies [...] OBSOLETE Refill (FAMPWS) Normal 12-01-2019 [facility] BETHANY MONTALVO ([id number]) 1965 [facility] Time Provider Department (15704) 12/01/19 KEREN KWON (CODING ADVISOR) FAMPWS During your visit today, we recorded [...] LYNN MA on 12/01/19 cnpn on 2019-12-01 [facility]COVHLD) Normal 12-01-2019 [place] BETHANY Madsen ([id number]) 1965 [facility] Date Time Provider Department (28732) 12/01/19 SARAI GASCA) PUSHPA During your visit [...] (Novel Coronavirus) testi liliana. A member from [facility] will contact you regarding further detail s to schedule VIP time at the [facility]. If your med ical condition worsens, please contact your primary care provider. Steps to Follow: Isolation: You should follow the prevention steps below unti l a healthcare provider or local or the [facility] department says you can return to your [...] you have a medical appointment, call the [facility] provider and tell them that you [...] not readily available, use an alcohol-based hand home management supervisor with at least 60% alco hol, covering [...] isolation precautions should be made on a qkih-wv-yhbh basis, in consultation with healthcare provid ers [...] seconds or u se an alcohol-based hand home management supervisor that contains 60 to 95% alcohol, covering [...] with soap and water or alcohol-based hand home management supervisor. Next, remove and dispose of facemask, and [...] oap and water or an alcohol-based hand home management supervisor) immediately after removing your gloves. o Read [...] and wa ter or an alcohol-based hand home management supervisor) immediately after handling these items. Soap and water should be used preferentially if hands are visibly dirty. ? Discuss any additional questions with [facility] or local health department or healthcare provider. [...] Fully Assessed Reason for Visit: Covid-19 Hotline [4406] Primary Visit Diagnosis:Suspected COVID-19 virus infection [ Z20.828] Order(s):2019 CORONAVIRUS [SQCOVID] [facility]: [id number] [facility] [5360550] Order #: [id number] Prescriptions as of 12/01/2019 Sig: BUSPIRONE [...] 2019-12-01 CNCO Letter Text Normal 12-01-2019 [facility] (13674) cnpn on 2019-11-30 CNPN Telephone (FAMPWS) Normal 11-30-2019 [place] [facility] BETHANY MONTALVO ([id number]) 1965 M [place] Date Time Provider Department (77593) 11/30/19 KEREN KWON (CODING ADVISOR) BG During your visit today, we recorded the following informati on about you: Malia Durán MA 11/30/2019 9:03 AM Signed [facility] for Nizatidine appro rosalba from [...] Status:Closed by MALIA DURÁN MA on 11/30/[facility]FAMP[facility]) Normal 11-26-2019 [place] BETHANY Madsen ([id number]) 1965 [facility] Date Time Provider Department (80355) 11/26/19 [facility]EN KWON ([facility]) FAMPWS During your visit today, we recorded the following informati on about you: Rossana Jain RN 11/26/2019 11:47 AM Signed Gian pharmacist from [facility] called, v erified pt by name and birthdate. Gian states Pepcid is on backorder and pt will need a repla cement for medication. Please advie and send new rx Rossana Kwon APRN.CODING ADVISOR 11/26/2019 2:27 PM Signed axid sent to [...] on 2019-11 OBSOLETE Refill (LAURENCE) Normal 11-24-2019 [facility] BETHANY Madsen ([id number]) 1965 [facility] Date Time Provider Department (76272) 11/24/19 KEREN KWON (MAIA) LAURENCE During your [...] on 2019-10-26 CNPN Telephone (FAMPWS) Normal 10-26-2019 [facility] BETHANY MONTALVO ([id number]) 1965 [facility] Date Time Provider Department (13851) 10/26/19 KEREN KWON (CODING ADVISOR) BG During your visit today, we recorded [...] Normal 10-25-2019 [facility] BETHANY MONTALVO ([id number]) 1965 [facility] Date Time Provider Department (28269) 10/25/19 KEREN KWON (MAIA) LAURENCE During your [...] on 10/27/19 OBSOLETE Refill (LAURENCE) Normal 10-25-2019 [facility] BETHANY Madsen ([id number]) 1965 [facility] Date Time Provider Department (30259) 10/25/19 KEREN KWON (MAIA) LAURENCE During your [...] [F51.04] Order(s):aspirin, enteric coated (ECOTRIN LOW [facility]) 81 mg EC tabletTake 1 tablet by [...] on 2019-08 OBSOLETE Refill (FAMPWS) Normal 09-19-2019 [facility] BETHANY MONTALVO ([id number]) 1965 [facility] Time Provider Department (25451) 09/19/19 KEREN KWON (MAIA) FAMPWS During your visit today, we recorded the following informati on about you: Donna Richey LPN 09/21/2019 9:10 AM Signed Patient phones requesting refills as follows: Pending Prescriptions Disp Refills TRAZODONE 50 MG TABLET 30 tablet 1 Sig: Take 1 tablet by mouth at bedtime as needed. AMBROCIO: No Please review and advise. Donna Kwon APRN.CNP 09/21/2019 9:17 AM Signed Script [...] 09/21/19 progress on 2019-08 PROGRESS HNO ID: [id number] Normal 09-15-2019 [facility] Author: Quyen Mazariegos LPN ([id number]) Service: ? Author Type: ? Type: Progress Notes Filed: 09/15/2019 1:37 PM Note Text: Patient presents for Shingrix vaccine. Denies any problems a t this time. Tolerated injection well. Quyen Mazariegos LPN [facility] (FAMPWS) Normal 0 [place] [facility] BETHANY MONTALVO ([id number]) 1965 [facility] Date Time Provider Department ([id number]) 09/15/19 1:30 PM SC NURSE FAMPWS During your visit today, we [...] OBSOLETE Refill (FAMPWS) Normal 09-11-2019 Efren veland [facility] BETHANY MONTALVO ([id number]) 1965 [facility] Date Time Provider Department ([id number]) 09/11/19 KEREN KWON (MAIA) FAMPWS During your [...] on 2019-09-10 MAIAN Telephone (FAMPWS) Normal 09-10-2019 [place] [facility] BETHANY MONTALVO ([id number]) 1965 [facility] Date Time Provider Department ([id number]) 09/10/19 KEREN KWON (MAIA) FAMWS During your [...] Diagnosis:Need for vaccination [Z23] Order(s):ZOSTER VACC RECOMBINANT,IM [[id number]] Order #: [id number] Prescriptions as of 09/10/2019 Sig: MUCINEX 600 [...] 02/25/20 progress on 2019-08 PROGRESS HNO ID: [id number] Normal 09-07-2019 [facility] Author: Kerry Patel [place] ([id number]) Service: ? Author Type: Nurse Practitioner Type: [...] Onset - Psychiatry Mother - Heart Mother SC 53 - Heart Father SC 51 - Colon Cancer Father Social History [...] 2019-09-07 CNOV Office Visit (UCWSTR) Normal 09-07-[address] [place] [address] [facility] BETHANY MONTALVO ([id number]) 1965 [facility] Date Time Provider Department ([id number]) 09/07/19 2:30 PM KERRY PATEL WS During your visit today, we recorded the following informati on about you: Temperature Pulse Respiration Blood pressure 97.5 degrees 100/minute 16/minute 122/80 Weight 102.6 kg Kerry Patel APRN.CODING ADVISOR 09/07/2019 3:39 PM Signed Subjective HPI Bethanysha [...] Onset - Psychiatry Mother - Heart Mother SC 53 - Heart Father SC 51 - Colon Cancer Father Social History [...] by coughs, sneezes, and direct contact, especially [id number]. A respiratory tract infection usual ly clears [...] OBSOLETE Refill (FAMPWS) Normal 08-19-2019 Efren li [facility] SELVINBETHANY M ([id number]) 1965 [facility] Time Provider Department ([id number]) 08/19/19 KEREN KWON (MAIA) FAMPWS During your [...] 08/19/19 progress on 2019-07 PROGRESS HNO ID: [id number] Normal 07-23-2019 [facility] Author: Keren Robles) Doyle Louie ([id number]) Service: ? Author Type: Nurse Practitioner Type: [...] Onset - Psychiatry Mother - Heart Mother SC 53 - Heart Father SC 51 - Colon Cancer Father Social History [...] 2019-07-23 CNOV Office Visit (FAMPWS) Normal 07-23-[address] [place] [address] BETHANY Madsen ([id number]) 1965 [facility] Date Time Provider Department ([id number]) 07/23/19 1:00 PM KEREN KWON (MAAI) FAMPWS During your visit today, we recorded [...] Onset - Psychiatry Mother - Heart Mother SC 53 - Heart Father SC 51 - Colon Cancer Father Social History [...] 07/23/19 progress on 2019-05 PROGRESS HNO ID: [id number] Normal 06-12-2019 [facility] Author: Keren (Maia) Doyle Louie ([id number]) Service: ? Author Type: Nurse Practitioner Type: Progress Notes Filed: 06/12/2019 5:55 PM Note Text: HPI/CC: Bethany Montalvo is a 53 year old male who presents to the office today for hospital follow-up. He was to [facility] c/o breathing problems. Admitted: 05/31/19 [...] many there. He has started going to jain. Hasn't spoken to cover seamer th sj yet. 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 He does talk to someone [...] Onset - Psychiatry Mother - Heart Mother SC 53 - Heart Father SC 51 - Colon Cancer Father Social History [...] 2019-06-12 CNOV Office Visit (FAMPWS) Normal 06-12-20 [place] BETHANY Madsen ([id number]) 1965 [facility] Date Time Provider Department ([id number]) 06/12/19 8:40 AM KEREN KWON (MAIA) FAMPWS During your visit today, we recorded the following informati on about you: Temperature Pulse Respiration Blood pressure 98.7 degrees 111/minute 16/minute 149/93 Weight 106.1 kg Keren Kwon TREE LOADER MEAT.MAIA 06/12/2019 5:55 PM Signed HPI/CC: Bethany Montalvo is a 53 year old male who presents to the office today for hospital follow-up. He was to [facility] following c/o breathing problems. Admitted: 05/31/19 [...] many there. He has started going to jain. Hasn't spoken to cover seamer chan gustafson yet. He continues to volunteer [...] Onset - Psychiatry Mother - Heart Mother SC 53 - Heart Father SC 51 - Colon Cancer Father Social History [...] 7. NSTEMI (non-ST elevated myocardial in farction) ([facility]) - ICD9: 410.70, ICD10: I21.4 Unsure how [...] 06/12/19 progress on 2019-05 PROGRESS HNO ID: [id number] Normal 06-01-2019 [facility] Author: Selin (Pt) Dexter Louie ([id number]) Service: ? Author Type: Physical Therapist Type: Progress Notes Filed: 06/01/2019 3:27 PM Note Text: 06/01/2019 [facility] PHYSICAL THERAPY DISCONTINUANCE [...] PT progress on 2019-05 PROGRESS HNO ID: [id number] Normal 05-28-2019 [facility] Author: Kerry Patel [place] ([id number]) Service: ? Author Type: Nurse Practitioner Type: [...] Onset - Psychiatry Mother - Heart Mother SC 53 - Heart Father SC 51 - Colon Cancer Father Social History [...] and history. Patient to be transported to [facility] b y father. Patient observed getting into vehicle in the parking lot. Re port called to YONI Awad. All of the above discussed with the patient in detail. Maria Victoria loza is in agreement with the above plan. Kerry Patel APRN.CODING ADVISOR cnov on 2019-05-28 CNOV Office Visit (UCWSTR) Normal 05-28-20 [place] [facility] BETHANY MONTALVO ([id number]) 1965 [facility] Date Time Provider Department ([id number]) 05/28/19 1:00 PM KERRY PATEL UCWSTR During your visit today, we recorded the following informati on about you: Temperature Pulse Respiration Blood pressure 98.7 degrees 102/minute 18/minute 215/128 Weight 102.7 kg Kerry Patel, GERARDO.CODING ADVISOR 05/28/2019 1:37 PM Signed Subjective HPI Bethany [...] Laterality Date - COLONOSCOP W/ OR W/O [facility] SPEC 01/12/2019 Colonoscopy - COLONOSCOPY BX SINGLE/MULTI [...] Onset - Psychiatry Mother - Heart Mother SC 53 - Heart Father SC 51 - Colon Cancer Father Social History [...] history. Patient to be transpor gissel to [facility] by father. Patient observed getting into vehicle in the parking lot . Report called to YONI Awad. All of the above discussed with the pierce ent in detail. Patient is in agreement with the above plan. Kerry Patel APRN.CODING ADVISOR Referring Provider: SELF [[id number]] Allergies As of [...] on 2019-04 OBSOLETE Refill (LAURENCE) Normal 05-11-2019 [facility] BETHANY MONTALVO ([id number]) 1965 [facility] Time Provider Department ([id number]) 05/11/19 KEREN KWON (MAIA) LAURENCE During your [...] on 2019-03 OBSOLETE Refill (FAMPWS) Normal 04-05-2019 [facility] BETHANY MONTALVO ([id number]) 1965 [facility] Date Time Provider Department ([id number]) 04/05/19 KEREN KWON (MAIA) FAMPWS During your [...] 1:10 PM Signed Script sent. Keren Haagen, TREE LOADER MEAT.CODING ADVISOR Allergies As of Date: 04/05/2019 Noted Allergy [...] Erythrocyte Letter TextDaarmin Rolando Normal 09-27-19 18 [facility] width [facility] 2017 [facility] [employer] [facility] [address] [place], [place] [address]Fgiif: (67103) [phone]/02/2018CC# [id number] M Omcxekt6399 [facility] [address]Gdkj Mr. Montalvo:We have been unsuccessful in reaching you by phone. Please call our office [phone] for further instructions. We have been trying to reach youregarding testing results and medication changes. Thank you.Sincerely,Cardiology Staff hosp on 2017-09-18 [facility] Get Medical Advice Normal 09-18-19 18 [place] (AGCARDWST) BETHANY MONTALVO ([id number]) 1965 M Date Time Provider Department09/18/17 CANDELARIO ARELLANO During your Medical visit today, we recorded the following information about you:Candelario Arellano MD 09/19/2017 9:05 AM Center SignedDoes he have heart rat es?Lon Cancino, RN, RN 09/19/2017 9:06 AM SignedSent via ([id number]) [employer].Tarun Cuello, RN, RN 09/20/2017 11:05 AM SignedLeft [...] 09/20/17 progress on 2017-08 PROGRESS HNO ID: [id number]: Candelario mcghee 09-10-2017 Babs Garcia: (none)Author Type: General PhysicianType: Progress NotesFiled: 09/10/2017 Medical 4:16 PMNote Text:PERTINENT CARDIAC Center HISTORYChest pain - atypicalSyncope - (35295) vasodepressorHTNHLADHERENCE TO GUIDELINESACE-I or ARB for HF with prior LVEF<40 (NQF 0081) - N/AASA or Plavix for ASHD (NQF 0067) - N/ABeta mandy for ASHD with prior SC or prior LVEF<40 (NQF 0070) - N/ABeta [...] with treatment plan.This note was generated using Connectloud voice recognition system, and theremay be some incorrect words, spellings, and punctuation that were notnoted in checking the note before saving.DIAGNOSIS FOR VISIT:Chest painHypertensionHISTORY OF PRESENT ILLNESSDaarmin Montlavo returns for posthospital follow-up visit. He was [...] Trace edema. Pulses are intact andsymmetrical.Records from [facility] were reviewed. Stress test showed noevidence of ischemia. Ejection fraction was normal.Echocardiogram showed normal ejection fraction. There was no evidence ofacute coronary syndrome.Electronically Signed:Candelario Arellano MDFlagstaff Medical Centeruary 2017 3:53 [facility]: Redd Tejeda MD cnov on 2017-09-10 CNOV Office Visit Normal 09-10-2017 [place] (AGCARDWST) BETHANY MONTALVO ([id number]) 1965 Date Time Provider Department09/10/17 3:30 PM [facility]ARIO [facility] During your visit today, we recorded the following information about you: Pulse Blood pressure Weight Cente r Height 64/minute 140/110 105 .4 kg 1.753 Felipa Arellano MD 09/10/2017 4:16 PM SignedPERTINENT CARDIAC ( 82180) HISTORYChest pain - atypical Syncope - vasodepressorHTNHLADHERENCE TO GUIDELINESACE-I or ARB for HF with prior LVEFANDlt;40 (NQF 0081 ) - N/AASA or Plavix for ASHD (NQF 0067) - N/ABeta mandy for ASHD with prior SC or prior LVEFANDlt;40 (NQ F 0070) - [...] with treatment plan.This note was generated using Connectloud voice recognition system, and there may besome [...] edema. Pulses are intact and symmetrical.Records from [facility] were reviewed. Stress test showed no evidence ofischemia. Ejection fraction was normal.Echocardiogram showed normal ejection fraction. Th ere was no evidence of acutecoronary syndrome.Electronically Signed:Candelario Arellano MDFlagstaff Medical Centeruary 2017 3:53 PMCC: Marjorie Cain MD 09/10/2017 [...] programs in your area.Referring Provider: CANDELARIO ARELLANO [[id number]]Allergies A s of Date: 09/10/2017 Noted Allergy ReactionSUDAFED (PSEUDOEPHEDRINE) 06/26/2016 14 - Other: See C dave Comments: Prostate infectionDate Reviewed: 09/10/2017Reviewed by: India Reddy) Davy - Fully A Latoya for Visit: Follow Up [171]Primary Visit Diagnosis:Essential hypertension [I10] Other Vis it Diagnoses:Chest pain, unspecified type [R07.9] Hypertension, essential [I10]Order(s):LIPID PANEL BA SIC [SQLIPB] Order #: [id number] FUTURE ALT/SGPT [SQALT] Order #: [id number] FUTURE CK CREATINE KINASE [S QCK] Order #: [id number] FUTURE BASIC METABOLIC PNL [SQBMP] Order #: [id number] FUTUREPrescriptio ns as of 09/10/2017 Sig: OMEPRAZOLE [...] the following areas and commit to making terminal carman changes. EAT A WHOLE FOOD, PLANT BASED [...] and behavior management, are available. Please contact [facility] family physician about programs in your area. Status:Closed by CANDELARIO ARELLANO MD on Encounters Date Type Reason Provider Location 03-18-2018 Ambulatory CANDELARIO ARELLANO Facility:[facility] Olivia ENGLEWOOD Ileana 09-10-2017 - Ambulatory Essential (primary) CANDELARIO brown 09-10-2017 hypertension EILEEN ARELLANO ([id number]) CANDELARIO Tejeda 03-10-2020 Patient encounter Congestive heart Ankit Elena Psycho logy procedure failure; nonhypertensive Comment: Consult ([facility] Pt Outreach F/ U) 03-17-2020 - Refill Mixed anxiety and [facility] 03-17-2020 depressive disorder Raphael Comment: Refill Request 03-10-2020 - 03-10-2020 Telemedicine consultation Keli dayana Parker [facility] with patient Procedures Procedure Name Date Provider Location Colonoscopy 01-12-2019 - 01-12-2019 [facility] ([id number]) Plan of Treatment Plan Description Date Location DTAP,TDAP,TD (2 - Td) DTAP,TDAP,TD (2 - Td) 07-10-2026 - [facility] 07-10-2026 ([id number]) LIPID SCREEN LIPID SCREEN 01-06-2025 - [facility] 01-06-2025 ([id number]) COLONOSCOPY COLONOSCOPY 01-13-2024 - [facility] 01-13-2024 ([id number]) DIABETES SCREEN DIABETES SCREEN 01-06-2023 - [facility] 01-06-2023 ([id number]) LDL CHOLESTEROL LDL CHOLESTEROL 01-06-2021 - [facility] 01-06-2021 (75830) ANNUAL PCP TEAM CHRONIC ANNUAL PCP TEAM CHRONIC 12-24-2020 - [facility] DISEASE VISIT DISEASE VISIT 12-24-2020 ([id number]) INFLUENZA (#1) INFLUENZA (#1) 2020 - [facility] 03-22-2020 (56096) SHINGRIX VACCINE (2 of SHINGRIX VACCINE (2 of 11-10-2019 - [facility] 2) 2) 11-10-2019 (80260) BP CONTROLLED (<130/80) BP CONTROLLED (<130/80) 1984 - [facility] 1984 (66744) HEPATITIS C SCREENING HEPATITIS C SCREENING 1984 - [facility] 1984 (43289) HIV SCREENING HIV SCREENING 1984 - [facility] 1984 (91834) no information [facility] (19925) Immunizations Vaccine Notes Status Date Location Influenza Seasonal influenza, (completed) 08-28-2018 - [facility] Inj Quadrivalent Age injectable, 08-28-2018 (11042) 3+ quadrivalent, contains preservative Influenza Seasonal influenza, seasonal, (completed) 05-20-2014 - [facility] Inj Age 3+ injectable 05-20-2014 (62463) Tdap (Age 7+) tetanus toxoid, (completed) 07-10-2016 - [facility] linic reduced diphtheria 07-10-2016 (67600) toxoid, and acellular pertussis vaccine, adsorbed Zoster Recombinant zoster vaccine (completed) 09-15-2019 - [facility] (Shingrix) recombinant 09-15-2019 (21390) Payers Payer Name Policy Number Location [employer] [id number] [facility] ([id number]) [employer] [id number] [facility] (44 195) The following information is from the original human readable contentNo Payer Records FoundNo Payer Records FoundNo Payer Records Found Social History Type Social History Date Location Description History of tobacco use Current smoker 12-30-1983 - [facility] 05-30-2014 (47258) History SDOH Social 4 12-01-2019 - [facility] inic Connections Phone 12-01-2019 (26337) Cigarettes smoked 01-14-2020 - [facility] ic current (pack per day) - 01-14-2020 (41886) Reported Tobacco use and exposure Former user 01-14-2020 [facility] 01-14-2020 (30318) History of tobacco use Snuff User [facility] (32563) Alcohol intake Current drinker of [facility]-14-2020 [facility] (finding) 01-14-2020 (17467) History SDOH Alcohol 2 12-01-2019 - [facility] linic Frequency 12-01-2019 (62850) History SDOH Alcohol Std 5 12-01-2019 - [facility] Drinks 12-01-2019 (65811) Tobacco smoking status Former smoker 01-14-2020 - [facility] NHIS 01-14-2020 (57087) History SDOH Social 1 12-01-2019 - [facility] Get Together 12-01-2019 (93333) History SDOH Social 3 12-01-2019 - [facility] Holiness 12-01-2019 (31588) History SDOH Education 21 12-01-2019 - [facility] 12-01-2019 (50003) Tobacco Comment Very few, very 04-02-2014 - [facility] infrequently. Father 04-02-2014 (16632) smoked in childhood home. Alcohol Comment Binge drinking at times, 06-26-2016 - [facility] worse with stress. 06-26-2016 (01297) Sex Assigned At Male [facility] (36566) Exposure to SARS-CoV-2 Not sure [facility] (event) (49086) The following information is from the original [...] BE BASED ON THE PRIMARY CLINICAL RECORDS. [facility] provides no warranty or guarantee of the accuracy or completeness of information in this document. UNRECOGNIZED CONTENT PROVIDED BELOW FOR UNRECOGNIZED SECTION No Status Records FoundNo Status Records FoundNo Status Records Found UNRECOGNIZED CONTENT PROVIDED BELOW FOR UNRECOGNIZED SECTION INFORMATION SOURCE DATE CREATED AUTHOR AUTHOR'S ORGANIZATIO N 01/10/2018 [facility] DATE CREATED AUTHOR AUTHOR'S ORGANIZATIO N 01/10/2018 [facility] DATE CREATED AUTHOR AUTHOR'S ORGANIZATIO N 03/19/2020 [facility] UNRECOGNIZED CONTENT PROVIDED BELOW FOR UNRECOGNIZED SECTION Source Comments In the event this information is protected by the Federal Confidentiality of Alcohol and Drug Abuse Patient Records regulations: The Federal rules restrict any use of the information to criminally investigate or prosecute any alcohol or drug abuse patient.[facility] the event this information is protected by the Federal Confidentiality of Alcohol and Drug Abuse Patient Records regulations: The Federal rules restrict any use of the information to criminally investigate or prosecute any alcohol or drug abuse patient.[facility] UNRECOGNIZED CONTENT PROVIDED BELOW FOR UNRECOGNIZED SECTION Reason for Visit Reason Onset Date Comments Consult 03/10/2020 [facility] Pt Outreach F/U Reason Onset Date Comments Refill Request 03/17/2020 UNRECOGNIZED CONTENT PROVIDED BELOW FOR UNRECOGNIZED SECTION Miscellaneous Notes Telephone Encounter - Ankit Parker - 03/10/2020 9:47 AM EDT Behavioral Health Social Work Progress Note Patient identified for [facility] from: PCP(Keren Kwon CNP) Reason for referral: [facility] Behavioral Health Resources: Psychiatry med management;Psychology - talk therapy;Substance abuse [facility] encounter type: Telephone Encounter Attempts to Outreach: 3 attempts Referral made: Psychiatry - External;Psychology - External Psychology-External referral type: Alcohol/Drug Treatment;Therapy Psychiatry-External referral type: Medication Management Reason for external referral: Patient seeking terminal carman support Final Disposition: Resources given(02-19-20 left , sent mychart msg with resources,msg read, 03-10-20 left , sent f/u mychart msg) Patient Discharged?: Yes Patient reported that caregiver was able to meet their needs today?: N/A [facility] attempted to contact Pt at [phone] for f/u -no answer -left vm to return call to [phone] or send mychart msg This is [facility]'s 3rd outreach to Pt 02-19-20 Left vm 02-19-20 Sent mychart msg with resources, msg read Pt has not responded [facility] will send f/u mychart msg No further contact is indicated at this time Pt has been provided resources in Azadihart msg, msg read Pt has been provided [facility]'s contact info CONSTANCE Parker March 10, 2020 documented in this encounterTelephone Encounter - Shubham Barrios LPN - 03/18/2020 11:43 AM EDTLast refill 02/18/20 Qty: 60 with 0 refills Last ov 12/25/19 Has appt 03/25/20 Shubham Barrios LPN documented in this encounter
== END ==
PROVIDERS: PCP Registered Nurse; Referring Provider Registered Nurse; Visit Provider Registered Nurse
DX: Z20.828 Contact with and (suspected) exposure to other viral communicable diseases (principal); J06.9 Acute upper respiratory infection, unspecified; R05 Cough
CPT/HCPCS: 71046

== ENCOUNTER → 2020-01-04 11:32 | Outpatient (CLI) | payer MEDICAID, SELFPAY ==
[2017-11-21 12:50] VITALS: BMI 32.3
[2019-12-31 14:18] VITALS: BMI 33.1
[2020-01-04 13:07] LABS: AST(SGOT) 29 U/L (15-37); Alanine Aminotransfer ALT/SGPT 50 U/L (16-61); Albumin, Serum 4.1 g/dL (3.2-5.0); Alkaline Phosphatase 73 U/L (45-117); Bilirubin, Direct 0.25 mg/dL (0.00-0.30); Cholesterol 215 mg/dL (200); High Density Lipoprotein 19 mg/dL; Protein, Total 8.1 g/dL (6.4-8.2); Triglycerides 338 mg/dL; Very Low Density Lipoprotein 68 mg/dL (5-40)
--- OUTSIDE RECORDS SUMMARY | 2020-05-08 13:34 | XMS RPT_ITS | CCD ---
:1965 External Reference #:[id number] Author Organization [facility] Care Team Providers Name Role Phone EILEEN, Alejandrina Unavailable Unavailable EILEEN, Alejandrina Unavailable Unavailable EILEEN Unavailable Unavailable EILEEN Unavailable Unavailable Ileana RSanjeev Unavailable Unavailable EILEEN Unavailable Unavailable EILEEN Unavailable Unavailable Ileana RSanjeev Unavailable Unavailable Doyle (Maia) Primary Care Provider Allergies Reported Allergen Reaction(s) Severity Date of Onset Location pseudoephedrine Other: See Comments 06-26-2016 - [facility] Translations: [ Other [place] PSEUDOEPHEDRINE, Repository PSEUDOEPHEDRINE] Medications Medication Name Sig Date Prescriber Location Acetaminophen acetaminophen (TYLENOL 09-04-2018 Rebecca Devries [facility] EXTRA STRENGTH) 500 mg (4419 5) tablet Take 1 tablet by mouth every 6 hours as needed for Pain. 24 tablet 0 09/04/2018 Active Comment: Take 1 tablet by mouth every 6 hours as needed for Pain. Albuterol albuterol HFA (VENTOLIN HFA) 11-25-2019 Keren Robles ) [facility] 90 mcg/actuation inhaler Doyle (44 195) Inhale 2 Puffs as instructed every 4 hours as needed for Wheezing/Shortness of Breath. 1 Inhaler 5 11/25/2019 Active Comment: Inhale 2 Puffs as instructed every 4 hours as needed for Wheezing/Shortness of Breath. amLODIPine amLODIPine (NORVASC) 02-22-2020 - Keren Robles) [facility] 10 mg tablet 03-23-2020 Doyle (73847) Indications: Hypertension, essential Take 1 tablet by mouth once daily. 30 tablet 3 02/22/2020 03/23/2020 Active Comment: Take 1 tablet by mouth once daily. Aspirin aspirin, enteric coated 10-27-2019 Keren Robles) Eduardo goode [facility] (ECOTRIN LOW STRENGTH) (4419 5) 81 mg EC tablet Take 1 tablet by mouth once daily. 90 tablet 3 10/27/2019 Active Comment: Take 1 tablet by mouth once daily. atorvastatin atorvastatin (LIPITOR) 80 mg 10-27-2019 [facility] ([facility] ) [facility] tablet Indications: Doyle (58508) Hypertriglyceridemia Take 1 tablet by mouth daily at bedtime. 30 tablet 5 10/27/2019 Active Comment: Take 1 tablet by mouth daily at bedtime. benzonatate benzonatate (TESSALON 09-07-2019 Kerry Godoy (Professor Of Biology [facility] PERLE) 100 mg capsule [facility]) Amanda (50235 ) Indications: Viral URI with cough Take 2 capsules by mouth three times daily as needed. 42 capsule 0 09/07/2019 Active Comment: Take 2 capsules by mouth thr ee times daily as needed. buPROPion buPROPion XL (WELLBUTRIN 02-24-2015 [facility] Provider [facility] (74929) XL) 300 mg 24 hr tablet Take 1 tablet by mouth once daily. 0 02/24/2015 Active Comment: Take 1 tablet by mouth once daily. busPIRone busPIRone (BUSPAR) 10 02-18-2020 [facility]) [facility] mg tablet Take 1 tablet (441 95) by mouth three times daily. 90 tablet 1 02/18/2020 Active Comment: Take 1 tablet by mouth three times daily. carvedilol carvedilol (COREG) 6.25 02-22-2020 [facility]) [facility] mg tablet Indications: Doyle (4419 5) Hypertension, essential Take 1 tablet by mouth twice daily. 60 tablet 3 02/22/2020 Active Comment: Take 1 tablet by mouth twice daily. cyclobenzaprine cyclobenzaprine 02-18-2020 [facility]) [facility] (FLEXERIL) 10 mg tablet [facility] (441 95) Take 1 tablet by mouth once daily as needed. 30 tablet 0 02/18/2020 Active Comment: Take 1 tablet by mouth once daily as needed. fluticasone fluticasone (FLONASE) 50 09-07-2019 Kerry Godoy (Professor Of Biology [facility] mcg/actuation nasal [facility]) Amanda (52931) spray Indications: Viral URI with cough Use 2 Sprays in each nostril once daily. Rinse mouth after use. 1 Bottle 0 09/07/2019 Active Comment: Use 2 Sprays in each nostril once daily. Rinse mouth after use. L. gasseri-B. L. gasseri-B. 07-23-2019 Keren ([facility]) [place] [facility] bifidum-B longum bifidum-B longum [facility] (37999) (PROBIOTIC COLON (PROBIOTIC COLON SUPPORT) 1.5 billion SUPPORT) 1.5 billion cell cap cell cap Take by mouth. 0 07/23/2019 Active L. gasseri-B. bifidum-B 07-23-2019 [facility]) anne [facility] (77209) longum (PROBIOTIC COLON SUPPORT) 1.5 billion cell cap Take by mouth. 0 07/23/2019 Active Comment: Take by mouth. lansoprazole lansoprazole 02-18-2020 - [facility]as [facility] (PREVACID) 30 mg 04-18-2020 (85627) capsule Indications: GERD without esophagitis Take 1 capsule by mouth once daily. 30 capsule 5 02/18/2020 04/18/2020 Active Comment: Take 1 capsule by mouth once daily. Lisinopril lisinopril (ZESTRIL, 10-27-2019 Keren ([facility]) [facility] PRINIVIL) 10 mg tablet [facility] (4419 5) Indications: Hypertension, essential Take 1 tablet by mouth once daily. 30 tablet 5 10/27/2019 Active Comment: Take 1 tablet by mouth once daily. Melatonin melatonin 3 mg tablet Take by [facility] Provide r [facility] (01350) mouth. 0 Active Comment: Take by mouth. meloxicam meloxicam (MOBIC) 15 mg 02-18-2020 [facility] ([facility]) [facility] tablet Indications: [facility] (03014) Acute right-sided low back pain without sciatica , Right hip pain Take 1 tablet by mouth once daily. With food. 30 tablet 1 02/18/2020 Active Comment: Take 1 tablet by mouth once daily. With food. Naltrexone naltrexone ER (VIVITROL) 380 mg [facility] Provi silver [facility] (60443) injection Inject 380 mg intramuscularly one time only. 0 Active Comment: Inject 380 mg intramuscularl y one time only. Nitroglycerin nitroglycerin sublingual 06-12-2019 [facility] ([facility]) [facility] (NITROQUICK) 0.4 mg SL [facility] (4419 5) tablet Indications: NSTEMI (non-ST elevated myocardial infarction) (HCC) Dissolve 1 tablet under the tongue as needed. FOR CHEST PAIN. IF NO RELIEF CALL 911 1 Bottle of 25 3 06/12/2019 Active Comment: Dissolve 1 tablet under the tongue as needed. FOR CHEST PAIN. IF NO RELIEF CALL 911 POLYETHYLENE GLYCOL polyethylene glycol 05-12-2019 Keren ([facility]) [facility] [id number] (MIRALAX) 17 [facility] (28614) gram/dose powder Indications: Constipation, unspecified constipation type Take 17 g by mouth once daily. 1 Bottle 1 05/12/2019 Active Comment: Take 17 g by mouth once jenny y. Sertraline sertraline (ZOLOFT) 02-18-2020 - Vida Resendez) [facility] 50 mg tablet 03-17-2020 Glenn (41101) Indications: Anxiety and depression Take 2 tablets by mouth once daily. 60 tablet 0 03/18/2020 Active Comment: Take 2 tablets by mouth once daily. Thiamine thiamine (VITAMIN B1) 100 02-22-2020 Keren (Elementary [employer] Director) [facility] mg tablet Indications: [facility] (4419 5) Chronic alcohol abuse Take 1 tablet by mouth once daily. 30 tablet 3 02/22/2020 Active Comment: Take 1 tablet by mouth once daily. traZODone traZODone (DESYREL) 50 02-18-2020 Keren ([facility]) [facility] mg tablet Indications: [facility]agen (4419 5) Chronic insomnia Take 1 tablet by mouth at bedtime as needed. 30 tablet 1 02/18/2020 Active Comment: Take 1 tablet by mouth at be dtime as needed. Problems Active Problems Category Problem Name Status Date Location Acute myocardial Myocardial infarction Active 11-29-2017 - [facility] infarction (60784) Alcohol-related Persistent alcohol abuse Active 02-05-2014 - [facility] disorders (85741) Anxiety disorders Mixed anxiety and depressive Active 014 - [facility] disorder (89667) Disorders of lipid Hypertriglyceridemia Active 02-05-2014 - [facility] metabolism (11149) Essential Essential (primary) Active 08-24-2006 - Babs remediosor hypertension [facility] (85453) Occlusion or stenosis 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 (24490) arteries Other upper Seasonal allergy Active 02-05-2014 - [facility] linic respiratory disease (88869) Unclassified Unknown / UNK(Unknown) Active 09-10-2017 - [facility] (13092) Past or Other Problems Category Problem Name Status Date Location Abdominal hernia Inguinal hernia Completed 07-09-2016 - [facility] (52702) Coronary atherosclerosis Drug coated stent in Completed 11-30-19 - [facility] and other heart disease circumflex branch of (38128) left coronary artery Nonspecific chest pain Chest pain, Completed 09-10-2017 - [facility] (00857) Other diseases of kidney Renal impairment Completed 02-05-2014 - [facility] and ureters (98414) Other injuries and H/O: head injury Completed 02-05-2014 - [facility] conditions due to (05066) external causes Spondylosis; Acute low back pain Completed 03-16-2019 - [facility] intervertebral disc (61116) disorders; other back problems Results Result Name Value Range Unit Interpretation Flag Date Location obsolete on 2020-02 OBSOLETE Refill (FAMPWS) Normal 03-17-[address] [facility] BETHANY MONTALVO ([id number]) 1965 [facility] Time Provider Department (23015) 03/17/20 VARGAS JARQUIN FAMPWS During your visit [...] 2020-02 OBSOLETE Refill (CARDWS) Normal 02-21-[address] [facility] BETHANY MONTALVO ([id number]) 1965 [facility] Date Time Provider Department (60565) 02/21/20 KEREN KWON) LAURENCE During your visit [...] (CARDWS) Normal 02-18-2020 Efren li BETHANY Madsen ([id number]) 1965 [place] Louie Date Time Provider Department (20890) 02/18/20 KEREN KWON (MAIA) CARDWS During your [...] Normal 02-18-2020 [facility] SELVINBETHANY Rolando ([id number]) 1965 [facility] Date Time Provider Department (64414) 02/18/20 KEREN KWON (MAIA) LAURENCE During your visit today, we recorded the following informati on about you: Mray Valencia Ma 02/19/2020 9:54 AM Signed Patient [...] OBSOLETE Refill (CARDWS) Normal 02-18-[address] [facility] BETHANY MONTALVO ([id number]) 1965 [facility] Time Provider Department (53368) 02/18/20 KEREN KWON (MAIA) LAURENCE During your [...] mg tabletTake 1 tablet by mouth at [facility] as needed.Disp: 30 tabletRfl: 1 busPIRone [...] on 2020-02-12 RENE Telephone (FAMPWS) Normal 02-12-[address] [place] [facility] BETHANY MONTALVO ([id number]) 1965 [facility] Date Time Provider Department (13187) 02/12/20 [facility] (MAIA) [facility] During your visit today, we recorded the [...] Dr. Martin 01/10/20, OV note printed from [facility] and given to provider for review. Donna Yanez LPN 02/17/2020 11:14 AM Signed Pt. has not worked since June. He has not had a sleep st udy.. Needs referral to [facility] Marcia Yanez LPN 02/17/2020 11:16 AM Signed Referral faxed to ENT. Pt. also says he is depressed and h aving a hard time leaving his room. Marcia Kwon, STILL CLEANER.ROUNDING MACHINE TENDER 02/17/2020 1:02 PM Signed Then I think that we need to get him re- established with psychiatry/psychology to help us out. Is he doing any counseling? Has he been pa rticipating in AA meeting? I put a referral in for a behavioral health social work nurse to help us out. In the meantime, does he think the sertraline needs increase d? Donna Richey LPN 02/17/2020 3:57 PM Signed TC to pt, left message to return call to office. Donna Hanna LPN 02/18/2020 2:36 PM Signed Patient returned call and went over notes from Keren godoy METAL BONDING ASSEMBLER with understanding. Patient said he is doing [...] dose, new rx to [facility] please. Patient also said his Nizatidine rx has been on backorder since November asking for replacement rx to [facility] for that medication christopher Jarquin, MSN STILL CLEANER.ROUNDING MACHINE TENDER 02/18/2020 3:17 PM Signed I am covering [...] for one week, then increase to 2 [id number]=787 mg thereafter. I sent a new script for 60 tabs to his pharmacy. Rec destinee he follow up with Keren in 3 weeks, sooner if needed. I did not give refills, he co uld get refills at his f/u appointment which can be a VV. Vargas Jarquin, MSN STILL CLEANER.MAIA Barrios LPN 02/18/2020 4:15 PM Signed Spoke [...] scheduled at this time. Shubham Jarquin MSN STILL CLEANER.ROUNDING MACHINE TENDER 02/18/2020 4:24 PM Signed Unfortunately there is [...] once daily. Authorizing Provider: VARGAS JARQUIN, MSN STILL CLEANER.MAIA Jarquin, MSN STILL CLEANER.MAIA Barrios LPN 02/18/2020 4:57 PM Signed Pt [...] [facility] [[id number]] Order #: [id number]: 1 sertraline (ZOLOFT) 50 mg tabletTake 2 [...] 150 MG CAPSULE >> Vargas Jarquin, MSN STILL CLEANER.ROUNDING MACHINE TENDER 02/18/2020 3:09 PM Been on back order [...] hr befor e meal. Encounter Status:Closed by SHBUHAM BARRIOS LPN on 02/18/20 [facility]npn [facility]) [facility] 01-29[facility] [place] [facility] BETHANY MONTALVO ([id number]) 1965 M [place] Date Time Provider Department (36007) 01/29/20 KEREN KWON ([facility]) [facility] During your visit today, we recorded the following informati on about you: Keren Kwon APRN.ROUNDING MACHINE TENDER 01/29/2020 5:14 PM Signed Can please let [...] 9:17 AM Signed Patient is scheduling with [facility].Melina Bolivarvaughn Pss Allergies As of Date: 01/29/2020 Noted Allergy Reaction SUDAFED (PSEUDOEPHEDRINE) 06/26/2016 14 - Other: See Comment s Comments: Prostate infection Date Reviewed: 12/25/2019 Reviewed by: Donna Richey LPN - Fully Assessed Reason for Visit: Results [95] Primary Visit Diagnosis:Chronic sinusitis, unspecified locat ion [J32.9] Order(s):CONSULT TO ENT [9008] Order #: [id number]: 1 FUT URE Prescriptions as of 01/29/2020 [...] 01/14/2020 More... Encounter Status:Closed by KEREN KWON ROUNDING MACHINE TENDER on 02/08/20 progress on 2020-01 PROGRESS HNO ID: [id number] Normal 01-28-2020 [facility] Author: Omega Ramirez (Rt) [place] (67145) Service: ? Author Type: Merchandising Coordinator Type: Progress Notes Filed: 01/28/2020 2:52 PM [...] * *Final Report* * * Normal 2020 [facility] IVCON DATE OF EXAM: Jan 28 2020 2:55PM [place] ([id number]) WRM 0294 - MRI BRAIN WO IVCON [...] TMJ degenerative arthropathy. Nonspecific right mastoid effusion. Flat Hammerer: PSCB Transcribe Date/Time: Jan 28 2020 3:43P Dictated by : ANNIE MCGRAW MD This examination was interpreted and the report reviewed and electronically signed by: ANNIE MCGRAW MD on Jan 28 2020 3:46PM EST [id number] vitamin b12 on 2019 Cobalamin (Vitamin B12) 459 251-7840 pg/mL Normal 2019 [facility] [Mass/Vol] [place] (93173) Comment: Performed By: #### CBCDIF, C MP, LIPB, MG1, TSH, B12, HBA1C ####[facility] [address], [place] [phone] tsh on 2020-01-07 TSH Qn 0.976 0.270-4.200 uU/mL Normal 01-07-2020 [facility] (49137) Comment: Performed By: #### CBCDIF, C MP, LIPB, MG1, TSH, B12, HBA1C ####[facility], [place] [phone] magnesium on 01-06 Magnesium [Mass/Vol] 2.0 1.7-2.3 mg/dL Normal 0 [facility] (59878) Comment: Performed By: #### CBCDIF, C MP, LIPB, MG1, TSH, B12, HBA1C ####[place] [address], [place] [phone] lipid panel, basic on 2020-01-07 Cholesterol [Mass/Vol] 181 <200 mg/dL Normal 020 [facility] (39297) Comment: Result Comment: <200 mg/dL, Desirable 200-239 mg/dL, Borderline hi gh >239 mg/dL, High Performed By: #### CBCDIF, C MP, LIPB, MG1, TSH, B12, HBA1C ####[facility], [place] [phone] Cholesterol in HDL [Mass/Vol] 21 >39 mg/dL Low 01-07-2020 [facility] (32251) Comment: Result Comment: 40-59 mg/dL, Acceptable >59 mg/dL, High: Negative ri sk factor for coronary heart disease <40 mg/dL, Low: Positive ris k factor for coronary heart disease Performed By: #### CBCDIF, C MP, LIPB, MG1, TSH, B12, HBA1C ####[place] [address], [place] [phone] Cholesterol in LDL 118 <100 mg/dL High 01-07-2020 [facility] [Mass/Vol] (36385) Comment: Result Comment: <100 mg/dL, Optimal 100-129 mg/dL, Near optimal/ above optimal 130-159 mg/dL, Borderline hi gh 160-189 mg/dL, High >189 mg/dL, Very high Secondary prevention optimal LDL Cholesterol levels are recommended to be < 70 mg/dL Performed By: #### CBCDIF, C MP, LIPB, MG1, TSH, B12, HBA1C ####[facility] [address], [place] [phone] Fasting Time 14 hrs Normal 01-07-2020 [facility] (21446) Comment: Performed By: #### CBCDIF, C MP, LIPB, MG1, TSH, B12, HBA1C ####[facility], [place] [phone] LDL:HDL Ratio 5.62 <2.54 High 01-07-2020 [facility] (46156) Comment: Result Comment: Reference: 1. National Cholesterol Educ ation Program ATP III Guideline At-A-Glance Quick Desk Reference: National Heart, Lung, and Blood [place]. National Institutes of Health. 2001: NIH Publication No. 01-3305. 2. An International Atherosc lerosis Society position paper: global recommendations for the management of dyslipidemia: executive summary, Atherosclerosis. 2014: 232(2):410-413. Performed By: #### CBCDIF, C MP, LIPB, MG1, TSH, B12, HBA1C ####[facility] [address], [place] [phone] Non HDL Cholesterol 160 <130 mg/dL High 01-07-2020 [facility] (88747) Comment: Result Comment: <130 mg/dL, Optimal 130-159 mg/dL, Near optimal/ above optimal 160-189 mg/dL, Borderline hi gh 190-219 mg/dL, High >219 mg/dL, Very high Secondary prevention optimal non HDL Cholesterol levels are recommended to be < 100 mg/dL Performed By: #### CBCDIF, C MP, LIPB, MG1, TSH, B12, HBA1C ####[facility], [place] [phone] TC:HDL Ratio 8.62 <5.10 High 01-07-2020 [facility] (50586) Comment: Performed By: #### CBCDIF, C MP, LIPB, MG1, TSH, B12, HBA1C ####[place] [address], [place] [phone] Triglyceride [Mass/Vol] 209 <150 mg/dL High 2019 [facility] (00049) Comment: Result Comment: <150 mg/dL, Normal 150-199 mg/dL, Borderline hi gh 200-499 mg/dL, High >499 mg/dL, Very high Performed By: #### CBCDIF, C MP, LIPB, MG1, TSH, B12, HBA1C ####[place] [address], [place] [phone] VLDL Cholesterol 42 <30 mg/dL High 01-07-2020 [facility] (50949) Comment: Performed By: #### CBCDIF, C MP, LIPB, MG1, TSH, B12, HBA1C ####[place] [address], [place] [phone] hemoglobin a1c on 2 HbA1c (Bld) [Mass fraction] 4.8 4.3-5.6 % Normal [facility] (18186) Comment: Result Comment: [place] Flora betes Association guidelines indicate that patients with HgbA1c in the range 5.7-6.4% are at increased risk for development of diabetes, and intervention by lifestyle modification may be beneficial. HgbA1c greater o r equal to 6.5% is considered diagnostic of diabetes. Performed By: #### CBCDIF, C MP, LIPB, MG1, TSH, B12, HBA1C ####[place] [address], [place] [phone] HbA1c (Bld) [Mass fraction] 91 mg/dL Normal [facility] (58649) Comment: Result Comment: eAG: (Estima gissel average glucose) is a calculated value from HgbA1c and is in home sales representative of the average blood glucose level in the last 2-3 month period. Performed By: #### CBCDIF, C MP, LIPB, MG1, TSH, B12, HBA1C ####[place] [address], [place] [phone] comp metabolic panel on 2020-01-07 Albumin [Mass/Vol] 4.7 3.9-4.9 g/dL Normal 01-07-2020 [facility] (49030) Comment: Performed By: #### CBCDIF, C MP, LIPB, MG1, TSH, B12, HBA1C ####[place] [address] [place], [place] [phone] ALP [Catalytic activity/Vol] 63 38-113 U/L Normal 0 01-07-2020 [facility] (24727) Comment: Performed By: #### CBCDIF, C MP, LIPB, MG1, TSH, B12, HBA1C ####[place] [address], [place] [phone] ALT [Catalytic activity/Vol] 56 10-54 U/L High 0 01-07-2020 [facility] (96048) Comment: Performed By: #### CBCDIF, C MP, LIPB, MG1, TSH, B12, HBA1C ####[place] [address], [place] [phone] Anion gap [Moles/Vol] 14 9-18 mmol/L Normal 01-07-20 [facility] (09075) Comment: Performed By: #### CBCDIF, C MP, LIPB, MG1, TSH, B12, HBA1C ####[place] [address], [place] [phone] AST [Catalytic activity/Vol] 46 14-40 U/L High 0 01-07-2020 [facility] (33455) Comment: Performed By: #### CBCDIF, C MP, LIPB, MG1, TSH, B12, HBA1C ####[facility], [place] [phone] Bilirubin [Mass/Vol] 0.4 0.2-1.3 mg/dL Normal 0 [facility] (25192) Comment: Performed By: #### CBCDIF, C MP, LIPB, MG1, TSH, B12, HBA1C ####[place] [address], [place] [phone] Calcium [Mass/Vol] 9.6 8.5-10.2 mg/dL Normal 01-07-2020 [facility] (80293) Comment: Performed By: #### CBCDIF, C MP, LIPB, MG1, TSH, B12, HBA1C ####[place] [address] [place], [place] [phone] Chloride [Moles/Vol] 104 97-105 mmol/L Normal 0 [facility] (42316) Comment: Performed By: #### CBCDIF, C MP, LIPB, MG1, TSH, B12, HBA1C ####[facility], [place] [phone] CO2 [Moles/Vol] 23 22-30 mmol/L Normal 01-07-[address] [facility] (27098) Comment: Performed By: #### CBCDIF, C MP, LIPB, MG1, TSH, B12, HBA1C ####[facility], [place] [phone] Creatinine [Mass/Vol] 1.19 0.73-1.22 mg/dL Normal 01-07-20 20 [facility] (65786) Comment: Performed By: #### CBCDIF, C MP, LIPB, MG1, TSH, B12, HBA1C ####[place] [address] [place], [place] [phone] eGFR- Amer. >60 Normal 01-07-2020 [facility] (13718) Comment: Performed By: #### CBCDIF, C MP, LIPB, MG1, TSH, B12, HBA1C ####[facility] [address] [place], [place] [phone] GFR/1.73 sq M predicted >60 mL/min/{1.73_m2} Normal 01-07-2020 [facility] among non-blacks MDRD [place] (71992) (S/P/Bld) [Vol rate/Area] Comment: Result Comment: eGFR [...] C MP, LIPB, MG1, TSH, B12, HBA1C ####[facility] [address] [place], [place] [phone] Glucose [Mass/Vol] 101 74-99 mg/dL High 01-07-2020 [facility] (57797) Comment: Result Comment: The [place] Diabetes Association (ADA) provides guidance for cutoff [...] for diagnosis of diabetes. Reference: Standards of [facility] Care in Diabetes 2016, [place] Diabetes Association. Diabetes Care. 2016.39(Suppl 1). Performed By: #### CBCDIF, C MP, LIPB, MG1, TSH, B12, HBA1C ####[facility], [place] [phone] Potassium [Moles/Vol] 4.7 3.7-5.1 mmol/L Normal 01-07-20 [facility] (75232) Comment: Performed By: #### CBCDIF, C MP, LIPB, MG1, TSH, B12, HBA1C ####[place] [address], [place] [phone] Protein [Mass/Vol] 7.6 6.3-8.0 g/dL Normal 01-07-2020 [facility] ([id number]) Comment: Performed By: #### CBCDIF, C MP, LIPB, MG1, TSH, B12, HBA1C ####[place] [address], [place] [phone] Sodium [Moles/Vol] 141 136-144 mmol/L Normal 01-07-2020 [facility] (75011) Comment: Performed By: #### CBCDIF, C MP, LIPB, MG1, TSH, B12, HBA1C ####[place] [id number], [place] [phone] Urea nitrogen [Mass/Vol] 19 9-24 mg/dL Normal 01-06 [facility] (63391) Comment: Performed By: #### CBCDIF, C MP, LIPB, MG1, TSH, B12, HBA1C ####[place] [address], [place] [phone] cbc and differential on 2020-01-07 Abs Baso <0.03 <0.11 Normal 01-07-2020 [facility] ([id number]) Comment: Performed By: #### CBCDIF, C MP, LIPB, MG1, TSH, B12, HBA1C ####[facility], [place] [phone] Abs [place] 0.46 <0.87 k/uL Normal 01-07-2020 [facility] ([id number]) Comment: Performed By: #### CBCDIF, C MP, LIPB, MG1, TSH, B12, HBA1C ####[facility], [place] [phone] Abs Neut 3.18 1.45-7.50 k/uL Normal 01-07-2020 [facility] (76582) Comment: Performed By: #### CBCDIF, C MP, LIPB, MG1, TSH, B12, HBA1C ####[place] [address], [place] [phone] Absolute nRBC <0.01 <0.01 Normal 01-07-2020 [facility] (62835) Comment: Performed By: #### CBCDIF, C MP, LIPB, MG1, TSH, B12, HBA1C ####[place] [address], [place] [phone] Basophils/100 WBC (Bld) 0.4 % Normal 2019 [facility] (34997) Comment: Performed By: #### CBCDIF, C MP, LIPB, MG1, TSH, B12, HBA1C ####[place] [address], [place] [phone] DTYPE Auto Diff Normal 01-07-2020 [facility] ([id number]) Comment: Performed By: #### CBCDIF, C MP, LIPB, MG1, TSH, B12, HBA1C ####[place] [address], [place] [phone] Eosinophils (Bld) [#/Vol] 0.13 <0.46 k/uL Normal 12-20 [facility] (28756) Comment: Performed By: #### CBCDIF, C MP, LIPB, MG1, TSH, B12, HBA1C ####[place] [address], [place] [phone] Eosinophils/100 WBC (Bld) 2.4 % Normal 12-20 [facility] (77754) Comment: Performed By: #### CBCDIF, C MP, LIPB, MG1, TSH, B12, HBA1C ####[facility] [address], [place] [phone] Erythrocyte distribution 12.8 11.5-15.0 % Normal 01-06 [facility] width (RBC) [Ratio] [place] (63048) Comment: Performed By: #### CBCDIF, C MP, LIPB, MG1, TSH, B12, HBA1C ####[facility] [address], [place] [phone] Hematocrit (Bld) [Volume 48.1 39.0-51.0 % Normal 01-06 [facility] fraction] [place] (44652) Comment: Performed By: #### CBCDIF, C MP, LIPB, MG1, TSH, B12, HBA1C ####[facility] [address], [place] [phone] Hemoglobin (Bld) 16.1 13.0-17.0 g/dL Normal 01-07-2020 [facility] [Mass/Vol] [place] (00242) Comment: Performed By: #### CBCDIF, C MP, LIPB, MG1, TSH, B12, HBA1C ####[facility] [address], [place] [phone] Lymphocytes (Bld) [#/Vol] 1.55 1.00-4.00 k/uL Normal 12-20 [facility] (52604) Comment: Performed By: #### CBCDIF, C MP, LIPB, MG1, TSH, B12, HBA1C ####[facility] [address], [place] [phone] Lymphocytes/100 WBC (Bld) 29.0 % Normal 12-20 [facility] (06084) Comment: Performed By: #### CBCDIF, C MP, LIPB, MG1, TSH, B12, HBA1C ####[facility]level[address], [place] [phone] MCH (RBC) [Entitic mass] 30.4 26.0-34.0 pG Normal 01-06 [facility] (46975) Comment: Performed By: #### CBCDIF, C MP, LIPB, MG1, TSH, B12, HBA1C ####[place] [address]level[place], [place] [phone] MCHC (RBC) [Mass/Vol] 33.5 30.5-36.0 g/dL Normal 01-07-20 [facility] (80628) Comment: Performed By: #### CBCDIF, C MP, LIPB, MG1, TSH, B12, HBA1C ####[place] [address], [place] [phone] MCV (RBC) [Entitic vol] 90.8 80.0-100.0 fL Normal 01-06 [facility] (24299) Comment: Performed By: #### CBCDIF, C MP, LIPB, MG1, TSH, B12, HBA1C ####[facility], [place] [phone] Monocytes/100 WBC (Bld) 8.6 % Normal 2019 [facility] (94186) Comment: Performed By: #### CBCDIF, C MP, LIPB, MG1, TSH, B12, HBA1C ####[facility], [place] [phone] Neutrophils/100 WBC (Bld) 59.6 % Normal 12-20 [facility] (93341) Comment: Performed By: #### CBCDIF, C MP, LIPB, MG1, TSH, B12, HBA1C ####[facility]levelL[place], [place] [phone] NRBCs 0.0 0 /100 WBC Normal 01-07-2020 [facility] (46761) Comment: Performed By: #### CBCDIF, C MP, LIPB, MG1, TSH, B12, HBA1C ####[facility] [address], [place] [phone] Platelet mean volume 10.0 9.0-12.7 fL Normal 0 [facility] (Bld) [Entitic vol] [place] (41673) Comment: Performed By: #### CBCDIF, C MP, LIPB, MG1, TSH, B12, HBA1C ####[facility] [address], [place] [phone] Platelets (Bld) [#/Vol] 183 150-400 k/uL Normal 2019 [facility] (88074) Comment: Performed By: #### CBCDIF, C MP, LIPB, MG1, TSH, B12, HBA1C ####[place] [address], [place] [phone] RBC (Bld) [#/Vol] 5.30 4.20-6.00 m/uL Normal 01-07-2020 [facility] (75858) Comment: Performed By: #### CBCDIF, C MP, LIPB, MG1, TSH, B12, HBA1C ####[facility] [address], [place] [phone] WBC (Bld) [#/Vol] 5.34 3.70-11.00 k/uL Normal 01-07-2020 [facility] (65948) Comment: Performed By: #### CBCDIF, C MP, LIPB, MG1, TSH, B12, HBA1C ####[facility] [address], [place] [phone] progress on 2019-12 PROGRESS HNO ID: [id number] Normal 12-25-2019 [facility] Author: Keren (Elementary School Director) anne [place] ([id number]) Service: ? Author Type: Nurse Practitioner Type: [...] agrees to the visit: Yes Patient Location: [facility] Bethany Montalvo is a 53 year old male who is contacted alice roblero for a virtual visit This is an established patient of Dr. Keren Kwon APRN.ROUNDING MACHINE TENDER Reports: + head pain. Headaches started about [...] to the left circ. He followed with [facility]. No palpitations. No swelling in the [...] Onset - Psychiatry Mother - Heart Mother MS 53 - Heart Father MS 51 - Colon Cancer Father Patient Allergies [...] ICD10: R07.89 Phone call by nursing to [facility]. Appt scheduled for 12/31/2019. Discussed with [...] on 2019-12-25 RENE Telephone (FAMPWS) Normal 12-25-[address] [place] [facility] BETHANY MONTALVO ([id number]) 1965 M [place] Date Time Provider Department (37398) 12/25/19 KEREN KWON) [facility] During your visit today, we recorded the [...] on 01/19/20 CNPN Telephone (FAMPWS) Normal 12-25-2019 [place] [facility] BETHANY MONTALVO ([id number]) 1965 M [facility] Time Provider Department (08897) 12/25/19 KEREN KWON (ROUNDING MACHINE TENDER) GB During your visit today, we recorded the following informati on about you: Keren Kwon APRN.MAIA 12/25/2019 1:38 PM Signed Bethany has been having some symptoms of chest discomfort, SOB, fatigue. He has a hx of MS two years ago with stent. Known to Dr Sanjeev Noyola. Can we please try to get him re-set up. Donna Richey LPN 12/25/2019 2:20 PM Signed TC to [facility], spoke with Phyllis. Lloyd he states pt follows with Dr. Martin, transferred to [facility]. Appt scheduled with Dr. Martin for December [...] 12/25/19 progress on 2019-11 PROGRESS HNO ID: [id number] Normal 12-08-2019 [facility] Author: Momo Wilson [place] Service: ? ([id number]) Author Type: ? Type: Progress Notes Filed: 12/08/2019 10:08 AM Note Text: [id number] Unable to reach pt Left Voice Message-Monitoring complete Routed to PCP for follow up Ruby, this is the [facility] calling. We are sorry we missed you, but your care is important to us . We would like to follow up on your MyChart Door Clamp Operator re sponse. Please take a moment to complete the questionnaire daily. If any of your symptoms have worsened, please call you PCP o ffice to discuss. [facility] and NON CCF patients may call: ? CCF Nurse cement or concrete finishing supervisor at [phone] ? Their PCP Office Caregivers may call: ? [facility] Employee Hotline: [phone] ? [facility] Employee Boost appointment for 11/02 emotional support: [phone] If you are finding it more difficult to breathe, or more philomena rt of breath when walking or climbing stairs, please go to the nearest ED . SIGNATURE: Momo Wilson PATIENT NAME: Bethany Montalvo DATE: December 08, 2019 TIME: 10:06 AM cnptoutreach on CNPTOUTREACH Patient Outreach (EXEPMN) Normal 0 12-08-[address] [place] [facility] BETHANY MONTALVO ([id number]) 1965 [facility] Time Provider Department ([id number]) 12/08/19 MOMO WILSON (RN) EXEPMN During your visit today, we recorded the following informati on about you: Momo Wilson 12/08/2019 10:08 AM Signed [id number] Unable to reach pt Left Voice Message-Monitoring complete Routed to PCP for follow up Ruby, this is the [facility] calling. We are sorry we missed you, but your care is important to us . We would like to follow up on your MyChart Door Clamp Operator re sponse. Please take a moment to complete the questionnaire daily. If any of your symptoms have worsened, please ca ll you PCP office to discuss. CCF and NON CCF patients may call: ? CCF Nurse cement or concrete finishing supervisor at [phone] ? Their PCP Office Caregivers may call: ? [facility] Employee Hotline: [phone] ? [facility] Employee Boost appointment for 11/02 emotional support: [phone] If you are finding it more difficult [...] Assessed Reason for Visit: Covid Follow Up [3102] Cmt: Suspected, Day 14, Monitoring Co mplete [...] MOMO WILSON on 12/08/19 [facility]npn [facility]) [facility]-08-[address] [place] [facility] BETHANY MONTALVO ([id number]) 1965 [facility] Date Time Provider Department ([id number]) 12/08/19 KEREN KWON ([facility]) FAMPWS During your visit today, we recorded the following informati on about you: Rossana Jain RN 12/08/2019 8:55 AM Signed [facility] scheduling called, verified pt by name and birthdate. Pt is at their facility for COVID 19 test and they need an orde r. Printed order and faxed to [phone]. Rossana Jain RN Allergies As of Date: [...] 12/08/19 progress on 2019-11 PROGRESS HNO ID: [id number] Normal 12-03-2019 [facility] Author: Momo Wilson [place] Service: ? ([id number]) Author Type: ? Type: Progress Notes Filed: 12/03/2019 11:02 AM Note Text: Summary: Suspect Covid, Intake attempt x 2 [id number] Intake attempt x 2, will attempt call back on 12/07 (Day 14) Voice Message COVEGA, this is the [facility] calling. We are sorry we missed you, but your care is important to us . We would like to follow up on your MyChart Door Clamp Operator clementina hope. Please take a moment to complete the questionnaire daily. If any of your symptoms have worsened, please call you PCP o ffice to discuss. CCF and NON CCF patients may call: ? CCF Nurse cement or concrete finishing supervisor at [phone] ? Their PCP Office Caregivers may call: ? [facility] Employee Hotline: [phone] ? [facility] Employee Boost appointment for 11/02 emotional support: [phone] If you are finding it more difficult to breathe, or more philomena rt of breath when walking or climbing stairs, please go to the nearest ED . SIGNATURE: Momo Wilson PATIENT NAME: Bethany Montalvo DATE: December 03, 2019 TIME: 10:59 AM cnptoutreach on CNPTOUTREACH Patient Outreach (EXEPMN) Normal 0 12-03-[address] [place] [facility] BETHANY MONTALVO ([id number]) 1965 M [facility] Time Provider Department ([id number]) 12/03/19 MOMO WILSON (YONI) EXEPMN During your visit today, we recorded the following informati on about you: Momo Wilson 12/03/2019 11:02 AM Signed [id number] Intake attempt x 2, will attempt call back on 12/07 (Day 14) Voice Message Ruby, this is the [facility] calling. We are sorry we missed you, but your care is important to us . We would like to follow up on your MyChart Door Clamp Operator clementina hope. Please take a moment to complete the questionnaire daily. If any of your symptoms have worsened, please ca ll you PCP office to discuss. CCF and NON CCF patients may call: ? CCF Nurse cement or concrete finishing supervisor at [phone] ? Their PCP Office Caregivers may call: ? [facility] Employee Hotline: [phone] ? [facility] Employee Boost appointment for 11/02 emotional support: [phone] If you are finding it more difficult [...] Assessed Reason for Visit: Covid Follow Up [8196] Cmt: Suspect, Intake Prescriptions as of 12/03/2019 [...] 12/03/19 progress on 2019-11 PROGRESS HNO ID: [id number] Normal 12-02-2019 [facility] Author: Momo Wilson [place] Service: ? ([id number]) Author Type: ? Type: Progress Notes Filed: 12/02/2019 11:51 AM Note Text: [id number] Intake attempted, needs Door Clamp Operator Day 8 since symptom onset Voice Message Ruby, this is the [facility] calling. We are sorry we missed you, but your care is important to us . We would like to follow up on your MyChart Door Clamp Operator re sponse. Please take a moment to complete the questionnaire daily. If any of your symptoms have worsened, please call you PCP o ffice to discuss. CCF and NON CCF patients may call: ? CCF Nurse cement or concrete finishing supervisor at [phone] ? Their PCP Office Caregivers may call: ? [facility]CF Employee Hotline: [phone] ? [facility]CF Employee Boost appointment for 11/02 emotional support: [phone] If you are finding it more difficult to breathe, or more philomena rt of breath when walking or climbing stairs, please go to the nearest ED . Disposition: Unable to reach, Left Voicemail - Continue Toni simon SIGNATURE: Momo Wilson PATIENT NAME: Bethany Montalvo DATE: December 02, 2019 TIME: 11:48 AM cnptoutreach on CNPTOUTREACH Patient Outreach (AMBCMG) Normal 0 12-02-[address] [place] [facility] BETHANY MONTALVO ([id number]) 1965 M [place] Date Time Provider Department () 12/02/19 PEARL MTZ (RN) [facility] During your visit today, we recorded the following informati on about you: Pearl Mtz, RN, RN 01/04/2020 3:00 AM Signed [facility] TRIGGERED OUTREACH FYI: Monitoring Call: Day 7 from symptom onset 11/25/19 Ruby, this is the [facility] calling, november I spe ak to Bethany Montalvo Patient identified by name and I'm calling you because we see your resp onse in [facility]. Can we discuss if you are getting better or worse and how we can work together to help you recover? Patient response in [facility] Door Clamp Operator alerted COVID-19 outreach team: Worsening symptoms of SOB Weakness Appetite Diarrhea. Concerning result within [facility] Door Clamp Operator: Temperature of 99.1 SOB worse Weakness worse. [...] like to speak with a social work steam station supervisor to help give you support for any [...] CCF patients may call: ? CCF Nurse cement or concrete finishing supervisor at [phone] ? Their PCP Office Caregivers may call: ? [facility] Employee Hotline: [phone] ? [facility] Employee Boost appointment for 11/02 emotional support: [phone] Patient verbalizes understanding of information provid ed. Denies any further questions at this time. Please visit CDC.gov website for any updated information about Coronavirus. You can also find information on the [facility] website. Additional information can be found on [facility] and [facility] web sites: https://www.cdc.gov/coronavirus/2019-nCoV/index.html [email or web address].org/coronavirus SIGNATURE: Pearl Mtz RN PATIENT NAME: Bethany godoy DATE: December 02, 2019 TIME: 11:58 AM Allergies As of Date: 12/02/2019 Noted Allergy Reaction SUDAFED (PSEUDOEPHEDRINE) 06/26/2016 14 - Other: See Comment s Comments: Prostate infection Date Reviewed: 09/07/2019 Reviewed by: Kerry Patel - Fully Assessed Reason for Visit: Covid Follow Up [5396] Cmt: Door Clamp Operator Esteban Benji audra Call Prescriptions as of [...] Encounter Status:Closed by MIRELA WRIGHT [facility]/04/[facility] Patient Outreach (EXEPMN) Normal 0 12-02-2019 [place] [facility] BETHANY MONTALVO ([id number]) 1965 [facility] Date Time Provider Department (51007) 12/02/19 MOMO WILSON (RN) EXEPMN During your visit today, we recorded the following informati on about you: Momo Wilson 12/02/2019 11:51 AM Signed [id number] Intake attempted, needs Door Clamp Operator Day 8 since symptom onset Voice Message Ruby, this is the [facility] calling. We are sorry we missed you, but your care is important to us . We would like to follow up on your MyChart Door Clamp Operator re sponse. Please take a moment to complete the questionnaire daily. If any of your symptoms have worsened, please ca ll you PCP office to discuss. CCF and NON CCF patients may call: ? CCF Nurse cement or concrete finishing supervisor at [phone] ? Their PCP Office Caregivers may call: ? [facility] Employee Hotline: [phone] ? [facility] Employee Boost appointment for 11/02 emotional support: [phone] If you are finding it more difficult [...] Assessed Reason for Visit: Covid Follow Up [8629] Cmt: Suspected, Outreach Intake Prescriptions as of [...] 12/02/19 progress on 2019-11 PROGRESS HNO ID: [id number] Normal 12-01-2019 [facility] Author: Keren (Elementary School Director) [place] ([id number]) Service: ? Author Type: Nurse Practitioner Type: [...] agrees to the visit: Yes Patient Location: [facility] Bethany Montalvo is a 53 year old male who is contacted alice roblero for a virtual visit This is an established patient of Dr. Keren Kwon APRN.ROUNDING MACHINE TENDER. Able to use video, but audio unsuccessful. [...] Onset - Psychiatry Mother - Heart Mother MS 53 - Heart Father MS 51 - Colon Cancer Father Patient Allergies [...] OBSOLETE Refill (FAMPWS) Normal 12-01-[address] [facility] BETHANY MONTALVO ([id number]) 1965 [facility] Time Provider Department ([id number]) 12/01/19 KEREN KWON (ROUNDING MACHINE TENDER) FAMPWS During your visit today, we recorded [...] LYNN MA on 12/01/19 cnpn on 2019-12-01 [facility]OV[facility]) Normal 12-01-2019 [place] BETHANY Madsen ([id number]) 1965 [facility] Date Time Provider Department (09248) 12/01/19 SARAI GASCA) PUSHPA During your visit [...] (Novel Coronavirus) testi liliana. A member from [facility] will contact you regarding further detail s to schedule VIP time at the [facility]. If your med ical condition worsens, please contact your primary care provider. Steps to Follow: Isolation: You should follow the prevention steps below unti l a healthcare provider or local or [facility] department says you can return to [...] wear a facemask. See COVID-19 and Kiera ellsi for more information. Call ahead before visiting your doctor If you have a medical appointment, call the [facility] provider and tell them that [...] not readily available, use an alcohol-based hand semiconductor processing technician with at least 60% alco hol, covering [...] isolation precautions should be made on a nzxz-qz-owxg basis, in consultation with healthcare provid ers [...] seconds or u se an alcohol-based hand semiconductor processing technician that contains 60 to 95% alcohol, covering [...] with soap and water or alcohol-based hand semiconductor processing technician. Next, remove and dispose of facemask, and [...] oap and water or an alcohol-based hand semiconductor processing technician) immediately after removing your gloves. o Read [...] and wa ter or an alcohol-based hand semiconductor processing technician) immediately after handling these items. Soap and water should be used preferentially if hands are visibly dirty. ? Discuss any additional questions with your [facility] or local health department or healthcare [...] Fully Assessed Reason for Visit: Covid-19 Hotline [6318] Primary Visit Diagnosis:Suspected COVID-19 virus infection [ Z20.828] Order(s):2019 CORONAVIRUS [SQCOVID] [facility]: [id number] [facility] [[id number]] Order #: [id number] Prescriptions as of 12/01/2019 Sig: BUSPIRONE [...] 2019-12-01 [facility] Letter Text Normal 12-01-2019 [facility] ([id number]) cnpn on 2019-11-30 CNPN Telephone (FAMPWS) Normal 11-30-[address] [place] [facility] BETHANY MONTALVO ([id number]) 1965 M [place] Date Time Provider Department (83663) 11/30/19 KEREN KWON (ROUNDING MACHINE TENDER) BG During your visit today, we recorded the following informati on about you: Malia Durán MA 11/30/2019 9:03 AM Signed [facility] PA for Nizatidine appro rosalba from [...] Status:Closed by MALIA DURÁN MA on [facility]/30/[facility]) Normal 11-26-2019 [place] BETHANY Madsen ([id number]) 1965 [facility] Date Time Provider Department (95994) 11/26/19 KEREN KWON ([facility]) FAMPWS During your visit today, we recorded the following informati on about you: Rossana Jain RN 11/26/2019 11:47 AM Signed Gian pharmacist from [facility] called, v erified pt by name and birthdate. Gian states Pepcid is on backorder and pt will need a repla cement for medication. Please advie and send new rx Rossana Kwon APRN.ROUNDING MACHINE TENDER 11/26/2019 2:27 PM Signed axid sent to [...] on 2019-11 OBSOLETE Refill (LAURENCE) Normal 11-24-2019 [facility] BETHANY Madsen ([id number]) 1965 [facility] Date Time Provider Department (13559) 11/24/19 KEREN KWON (MAIA) LAURENCE During your [...] on 2019-10-26 CNPN Telephone (FAMPWS) Normal 10-26-2019 [place] [facility] BETHANY MONTALVO ([id number]) 1965 [facility] Date Time Provider Department (58719) 10/26/19 KEREN KWON (ROUNDING MACHINE TENDER) BG During your visit today, we recorded [...] Normal 10-25-2019 [facility] BETHANY MONTALVO ([id number]) 1965 [facility] Date Time Provider Department (54022) 10/25/19 KEREN KWON (MAIA) LAURENCE During your [...] on 10/27/19 OBSOLETE Refill (LAURENCE) Normal 10-25-2019 [facility] BETHANY Madsen ([id number]) 1965 [facility] Date Time Provider Department (63569) 10/25/19 KEREN KWON (MAIA) LAURENCE During your [...] [F51.04] Order(s):aspirin, enteric coated (ECOTRIN LOW [facility]) 81 mg EC tabletTake 1 tablet by [...] on 2019-08 OBSOLETE Refill (FAMPWS) Normal 09-19-[address] [facility] BETHANY MONTALVO ([id number]) 1965 [facility] Time Provider Department ([id number]) 09/19/19 KEREN KWON (MAIA) FAMPWS During your [...] 09/21/19 progress on 2019-08 PROGRESS HNO ID: [id number] Normal 09-15-2019 [facility] Author: Quyen Mazariegos LPN ([id number]) Service: ? Author Type: ? Type: Progress Notes Filed: 09/15/2019 1:37 PM Note Text: Patient presents for Shingrix vaccine. Denies any problems a t this time. Tolerated injection well. Quyen Mazariegos LPN cnnurse on [facility] Nurse Visit (FAMPWS) Normal [address] [place] [facility] BETHANY MONTALVO ([id number]) 1965 [facility] Date Time Provider Department ([id number]) 09/15/19 1:30 PM MS NURSE FAMPWS During your visit today, we [...] OBSOLETE Refill (FAMPWS) Normal 09-11-[address] [facility] BETHANY MONTALVO ([id number]) 1965 [facility] Date Time Provider Department ([id number]) 09/11/19 KEREN KWON (MAIA) FAMPWS During your [...] on 2019-09-10 MAIAN Telephone (FAMPWS) Normal 09-10-[address] [place] [facility] BETHANY MONTALVO ([id number]) 1965 [facility] Date Time Provider Department ([id number]) 09/10/19 KEREN KWON (MAIA) FAMWS During your [...] Diagnosis:Need for vaccination [Z23] Order(s):ZOSTER VACC RECOMBINANT,IM [[id number]] Order #: [id number] Prescriptions as of 09/10/2019 Sig: MUCINEX 600 [...] 02/25/20 progress on 2019-08 PROGRESS HNO ID: [id number] Normal 09-07-2019 [facility] Author: Kerry Patel [place] ([id number]) Service: ? Author Type: Nurse Practitioner Type: [...] Onset - Psychiatry Mother - Heart Mother MS 53 - Heart Father MS 51 - Colon Cancer Father Social History [...] 2019-09-07 CNOV Office Visit (UCWSTR) Normal 09-07-[address] [place] [address] [facility] BETHANY MONTALVO ([id number]) 1965 [facility] Date Time Provider Department ([id number]) 09/07/19 2:30 PM KERRY PATEL WS During your visit today, we recorded the following informati on about you: Temperature Pulse Respiration Blood pressure 97.5 degrees 100/minute 16/minute 122/80 Weight 102.6 kg Kerry Patel APRN.ROUNDING MACHINE TENDER 09/07/2019 3:39 PM Signed Subjective HPI Bethanysha [...] Onset - Psychiatry Mother - Heart Mother MS 53 - Heart Father MS 51 - Colon Cancer Father Social History [...] by coughs, sneezes, and direct contact, especially [id number]. A respiratory tract infection usual ly clears [...] OBSOLETE Refill (FAMPWS) Normal 08-19-[address] [facility] SELVINBETHANY M ([id number]) 1965 [facility] Time Provider Department ([id number]) 08/19/19 KEREN KWON (MAIA) FAMPWS During your [...] 08/19/19 progress on 2019-07 PROGRESS HNO ID: [id number] Normal 07-23-2019 [facility] Author: Keren Robles) Doyle Louie ([id number]) Service: ? Author Type: Nurse Practitioner Type: [...] Onset - Psychiatry Mother - Heart Mother MS 53 - Heart Father MS 51 - Colon Cancer Father Social History [...] 2019-07-23 CNOV Office Visit (FAMPWS) Normal 07-23-[address] [place] [address] BETHANY Madsen ([id number]) 1965 [facility] Date Time Provider Department ([id number]) 07/23/19 1:00 PM KEREN KWON (MAIA) FAMPWS [...] Onset - Psychiatry Mother - Heart Mother MS 53 - Heart Father MS 51 - Colon Cancer Father Social History [...] for 7 days. Encounter Status:Closed by KEREN KWNO CNP on 07/23/19 progress on 2019-05 PROGRESS HNO ID: [id number] Normal 06-12-2019 [facility] Author: Keren (Maia) Doyle Louie ([id number]) Service: ? Author Type: Nurse Practitioner Type: Progress Notes Filed: 06/12/2019 5:55 PM Note Text: HPI/CC: Bethany Montalvo is a 53 year old male who presents to the office today for hospital follow-up. He was to [facility] c/o breathing problems. Admitted: 05/31/19 Discharged: [...] started going to jain. Hasn't spoken to medical delivery technician th sj yet. 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 He does talk to someone [...] Onset - Psychiatry Mother - Heart Mother MS 53 - Heart Father MS 51 - Colon Cancer Father Social History [...] 2019-06-12 CNOV Office Visit (FAMPWS) Normal 06-12-20 [place] BETHANY Madsen ([id number]) 1965 [facility] Date Time Provider Department ([id number]) 06/12/19 8:40 AM KEREN KWON (MAIA) FAMPWS During your visit today, we recorded the following informati on about you: Temperature Pulse Respiration Blood pressure 98.7 degrees 111/minute 16/minute 149/93 Weight 106.1 kg Keren Kwon STILL CLEANER.MAIA 06/12/2019 5:55 PM Signed HPI/CC: Bethany Montalvo is a 53 year old male who presents to the office today for hospital follow-up. He was to [facility] following c/o breathing problems. Admitted: 05/31/19 [...] started going to jain. Hasn't spoken to medical delivery technician chan gustafson yet. He continues to volunteer [...] Onset - Psychiatry Mother - Heart Mother MS 53 - Heart Father MS 51 - Colon Cancer Father Social History [...] 7. NSTEMI (non-ST elevated myocardial in farction) ([facility]) - ICD9: 410.70, ICD10: I21.4 Unsure how [...] 06/12/19 progress on 2019-05 PROGRESS HNO ID: [id number] Normal 06-01-2019 [facility] Author: Selin (Pt) Dexter Louie ([id number]) Service: ? Author Type: Physical Therapist Type: Progress Notes Filed: 06/01/2019 3:27 PM Note Text: 06/01/2019 [facility] PHYSICAL THERAPY [...] PT progress on 2019-05 PROGRESS HNO ID: [id number] Normal 05-28-2019 [facility] Author: Kerry Patel [place] ([id number]) Service: ? Author Type: Nurse Practitioner Type: [...] Onset - Psychiatry Mother - Heart Mother MS 53 - Heart Father MS 51 - Colon Cancer Father Social History [...] and history. Patient to be transported to [facility] b y father. Patient observed getting into vehicle in the parking lot. Re port called to YONI Awad. All of the above discussed with the patient in detail. Maria Victoria loza is in agreement with the above plan. Kerry Patel APRN.ROUNDING MACHINE TENDER cnov on 2019-05-28 CNOV Office Visit (UCWSTR) Normal 05-28-[address] [place] [facility] BETHANY MONTALVO ([id number]) 1965 [facility] Date Time Provider Department ([id number]) 05/28/19 1:00 PM KERRY PATEL UCWSTR During your visit today, we recorded the following informati on about you: Temperature Pulse Respiration Blood pressure 98.7 degrees 102/minute 18/minute 215/128 Weight 102.7 kg Kerry Patel, GERARDO.ROUNDING MACHINE TENDER 05/28/2019 1:37 PM Signed Subjective HPI Bethany [...] Laterality Date - COLONOSCOP W/ OR W/O [facility] SPEC 01/12/2019 Colonoscopy - COLONOSCOPY [...] Onset - Psychiatry Mother - Heart Mother MS 53 - Heart Father MS 51 - Colon Cancer Father Social History [...] history. Patient to be transpor gissel to [facility] by father. Patient observed getting into vehicle in the parking lot . Report called to YONI Awad. All of the above discussed with the pierce ent in detail. Patient is in agreement with the above plan. Kerry Patel APRN.ROUNDING MACHINE TENDER Referring Provider: SELF [[id number]] Allergies As of [...] on 2019-04 OBSOLETE Refill (LAURENCE) Normal 05-11-[address] [facility] BETHANY MONTALVO ([id number]) 1965 [facility] Time Provider Department ([id number]) 05/11/19 KEREN KWON (MAIA) LAURENCE During your [...] on 2019-03 OBSOLETE Refill (FAMPWS) Normal 04-05-[address] [facility] BETHANY MONTALVO ([id number]) 1965 [facility] Date Time Provider Department ([id number]) 04/05/19 KEREN KWON (MAIA) FAMPWS During your [...] 1:10 PM Signed Script sent. Keren Haagen, STILL CLEANER.ROUNDING MACHINE TENDER Allergies As of Date: 04/05/2019 Noted Allergy [...] Erythrocyte Letter TextDaarmin Rolando Normal 09-27-19 18 [place] [facility] width [facility] 2017 [facility]RBC[facility] [address] [place], [place] [address]Byhpc: ([id number]) [phone]/02/2018CC# [id number] M [id number] [facility] [address]Vjvc Mr. Montalvo:We have been unsuccessful in reaching you by phone. Please call our office [phone] for further instructions. We have been trying to reach youregarding testing results and medication changes. Thank you.Sincerely,Cardiology Staff hosp on 2017-09-18 [facility] Get Medical Advice Normal 09-18-19 18 [place] (AGCARDWST) BETHANY MONTALVO ([id number]) 1965 M Date Time Provider Department09/18/17 CANDELARIO ARELLANO During your Medical visit today, we recorded the following information about you:Candelario Arellano MD 09/19/2017 9:05 AM Center SignedDoes he have heart rat es?Lon Cancino, RN, RN 09/19/2017 9:06 AM SignedSent via ([id number]) [employer].Tarun Cuello, RN, RN 09/20/2017 11:05 AM SignedLeft [...] 09/20/17 progress on 2017-08 PROGRESS HNO ID: [id number]: Candelario mcghee 09-10-2017 Babs Garcia: (none)Author Type: General PhysicianType: Progress NotesFiled: 09/10/2017 Medical 4:16 PMNote Text:PERTINENT CARDIAC Center HISTORYChest pain - atypicalSyncope - ([id number]) vasodepressorHTNHLADHERENCE TO GUIDELINESACE-I or ARB for HF with prior LVEF<40 (NQF 0081) - N/AASA or Plavix for ASHD (NQF 0067) - N/ABeta mandy for ASHD with prior MS or prior LVEF<40 (NQF 0070) - N/ABeta [...] with treatment plan.This note was generated using GENELINK voice recognition system, and theremay be some [...] Trace edema. Pulses are intact andsymmetrical.Records from [facility] were reviewed. Stress test showed noevidence of ischemia. Ejection fraction was normal.Echocardiogram showed normal ejection fraction. There was no evidence ofacute coronary syndrome.Electronically Signed:Candelario Arellano [facility] Center[facility] 3:53 [facility]: Redd Tejeda MD cnov on 2017-09-10 CNOV Office Visit Normal 09-10-2017 [place] (AGCARDWST) BETHANY MONTALVO ([id number]) 1965 Date Time Provider Department09/10/17 3:[address] [facility] During your visit today, we recorded the following information about you: Pulse Blood pressure Weight Cente r Height 64/minute 140/110 105 .4 kg 1.753 Felipa Arellano MD 09/10/2017 4:16 PM SignedPERTINENT CARDIAC ( [id number]) HISTORYChest pain - atypical Syncope - vasodepressorHTNHLADHERENCE TO GUIDELINESACE-I or ARB for HF with prior LVEFANDlt;40 (NQF 0081 ) - N/AASA or Plavix for ASHD (NQF 0067) - N/ABeta mandy for ASHD with prior MS or prior LVEFANDlt;40 (NQ F 0070) - [...] with treatment plan.This note was generated using GENELINK voice recognition system, and there may besome [...] edema. Pulses are intact and symmetrical.Records from [facility] were reviewed. Stress test showed no evidence ofischemia. Ejection fraction was normal.Echocardiogram showed normal ejection fraction. Th ere was no evidence of acutecoronary syndrome.Electronically Signed:Candelario Arellano MDB[facility] Centeruary 2017 3:53 PMCC: Marjorie Cain [...] programs in your area.Referring Provider: CANDELARIO ARELLANO [[id number]]Allergies A s of Date: 09/10/2017 Noted Allergy ReactionSUDAFED (PSEUDOEPHEDRINE) 06/26/2016 14 - Other: See C dave Comments: Prostate infectionDate Reviewed: 09/10/2017Reviewed by: India Reddy) Davy - Fully A Latoya for Visit: Follow Up [171]Primary Visit Diagnosis:Essential hypertension [I10] Other Vis it Diagnoses:Chest pain, unspecified type [R07.9] Hypertension, essential [I10]Order(s):LIPID PANEL BA SIC [SQLIPB] Order #: [id number] FUTURE ALT/SGPT [SQALT] Order #: [id number] FUTURE CK CREATINE KINASE [S QCK] Order #: [id number] FUTURE BASIC METABOLIC PNL [SQBMP] Order #: [id number] FUTUREPrescriptio ns as of 09/10/2017 Sig: OMEPRAZOLE [...] the following areas and commit to making long goods drier changes. EAT A WHOLE FOOD, PLANT BASED [...] and behavior management, are available. Please contact [facility] family physician about programs in your area. Status:Closed by CANDELARIO ARELLANO MD on Encounters Date Type Reason Provider Location 03-18-2018 Ambulatory CANDELARIO ARELLANO Facility:[facility] Olivia WAUCHULA Ileana 09-10-2017 - Ambulatory Essential (primary) CANDELARIO brown 09-10-2017 hypertension EILEEN ARELLANO ([id number]) CANDELARIO Tejeda 03-10-2020 Patient encounter Congestive heart Ankit Elena Psycho logy procedure failure; nonhypertensive Comment: Consult ([facility] Pt Outreach F/ U) 03-17-2020 - Refill Mixed anxiety and [facility] 03-17-2020 depressive disorder Raphael Comment: Refill Request 03-10-2020 - 03-10-2020 Telemedicine consultation Keli dayana Parker [facility] with patient Procedures Procedure Name Date Provider Location Colonoscopy 01-12-2019 - 01-12-2019 [facility] ([id number]) Plan of Treatment Plan Description Date Location DTAP,TDAP,TD (2 - Td) DTAP,TDAP,TD (2 - Td) 07-10-2026 - [facility] 07-10-2026 (84351) LIPID SCREEN LIPID SCREEN 01-06-2025 - [facility] 01-06-2025 (35156) COLONOSCOPY COLONOSCOPY 01-13-2024 - [facility] 01-13-2024 (05315) DIABETES SCREEN DIABETES SCREEN 01-06-2023 - [facility] 01-06-2023 (98775) LDL CHOLESTEROL LDL CHOLESTEROL 01-06-2021 - [facility] 01-06-2021 (14561) ANNUAL PCP TEAM CHRONIC ANNUAL PCP TEAM CHRONIC 12-24-2020 - [facility] DISEASE VISIT DISEASE VISIT 12-24-2020 ([id number]) INFLUENZA (#1) INFLUENZA (#1) 2020 - [facility] 03-22-2020 (47021) SHINGRIX VACCINE (2 of SHINGRIX VACCINE (2 of 11-10-2019 - [facility] 2) 2) 11-10-2019 (41087) BP CONTROLLED (<130/80) BP CONTROLLED (<130/80) 1984 - [facility] 1984 (94754) HEPATITIS C SCREENING HEPATITIS C SCREENING 1984 - [facility] 1984 (42764) HIV SCREENING HIV SCREENING 1984 - [facility] 1984 (57911) no information [facility] (55330) Immunizations Vaccine Notes Status Date Location Influenza Seasonal influenza, (completed) 08-28-2018 - [facility] Inj Quadrivalent Age injectable, 08-28-2018 (72360) 3+ quadrivalent, contains preservative Influenza Seasonal influenza, seasonal, (completed) 05-20-2014 - [facility] Inj Age 3+ injectable 05-20-2014 (25104) Tdap (Age 7+) tetanus toxoid, (completed) 07-10-2016 - [facility] linic reduced diphtheria 07-10-2016 (34560) toxoid, and acellular pertussis vaccine, adsorbed Zoster Recombinant zoster vaccine (completed) 09-15-2019 - [facility] (Shingrix) recombinant 09-15-2019 (00551) Payers Payer Name Policy Number Location [employer] [id number] [facility] ([id number]) [employer] [id number] [facility] (44 195) The following information is from the original human readable contentNo Payer Records FoundNo Payer Records FoundNo Payer Records Found Social History Type Social History Date Location Description History of tobacco use Current smoker 12-30-1983 - [facility] 05-30-2014 (83420) History SDOH Social 4 12-01-2019 - [facility] Phone 12-01-2019 (69670) Cigarettes smoked 01-14-2020 - [facility] ic current (pack per day) - 01-14-2020 (46791) Reported Tobacco use and exposure Former user 01-14-2020 [facility] 01-14-2020 (64978) History of tobacco use Snuff User [facility] (88901) Alcohol intake Current drink[facility]-14[facility] 01-14-2020 (31566) History SDOH Alcohol 2 12-01-2019 - [facility] linic Frequency 12-01-2019 (16893) History SDOH Alcohol Std 5 12-01-2019 - [facility] Drinks 12-01-2019 (26634) Tobacco smoking status Former smoker 01-14-2020 - [facility] NHIS 01-14-2020 (72123) History SDOH Social 1 12-01-2019 - [facility] Get Together 12-01-2019 (66816) History SDOH Social 3 12-01-2019 - [facility] Gnosticist 12-01-2019 (36014) History SDOH Education 21 12-01-2019 - [facility] 12-01-2019 (93306) Tobacco Comment Very few, very 04-02-2014 - [facility] infrequently. Father 04-02-2014 (55384) smoked in childhood home. Alcohol Comment Binge drinking at times, 06-26-2016 - [facility] worse with stress. 06-26-2016 (20497) Sex Assigned At Male [facility] (21080) Exposure to SARS-CoV-2 Not sure [facility] (event) (57559) The following information is from the original [...] BE BASED ON THE PRIMARY CLINICAL RECORDS. [facility] provides no warranty or guarantee of the accuracy or completeness of information in this document. UNRECOGNIZED CONTENT PROVIDED BELOW FOR UNRECOGNIZED SECTION No Status Records FoundNo Status Records FoundNo Status Records Found UNRECOGNIZED CONTENT PROVIDED BELOW FOR UNRECOGNIZED SECTION INFORMATION SOURCE DATE CREATED AUTHOR AUTHOR'S ORGANIZATIO N 01/10/2018 [facility] DATE CREATED AUTHOR AUTHOR'S ORGANIZATIO N 01/10/2018 [facility] DATE CREATED AUTHOR AUTHOR'S ORGANIZATIO N 03/19/2020 [facility] UNRECOGNIZED CONTENT PROVIDED BELOW FOR UNRECOGNIZED SECTION Source Comments In the event this information is protected by the Federal Confidentiality of Alcohol and Drug Abuse Patient Records regulations: The Federal rules restrict any use of the information to criminally investigate or prosecute any alcohol or drug abuse patient.[facility] the event this information is protected by the Federal Confidentiality of Alcohol and Drug Abuse Patient Records regulations: The Federal rules restrict any use of the information to criminally investigate or prosecute any alcohol or drug abuse patient.[facility] UNRECOGNIZED CONTENT PROVIDED BELOW FOR UNRECOGNIZED SECTION Reason for Visit Reason Onset Date Comments Consult 03/10/2020 [facility] Pt Outreach F/U Reason Onset Date Comments Refill Request 03/17/2020 UNRECOGNIZED CONTENT PROVIDED BELOW FOR UNRECOGNIZED SECTION Miscellaneous Notes Telephone Encounter - Ankit Parker - 03/10/2020 9:47 AM EDT Behavioral Health Social Work Progress Note Patient identified for [facility] from: PCP(Keren Kwon CNP) Reason for referral: [facility] Behavioral Health Resources: Psychiatry med management;Psychology - talk therapy;Substance abuse [facility] encounter type: Telephone Encounter Attempts to Outreach: 3 attempts Referral made: Psychiatry - External;Psychology - External Psychology-External referral type: Alcohol/Drug Treatment;Therapy Psychiatry-External referral type: Medication Management Reason for external referral: Patient seeking long goods drier support Final Disposition: Resources given(02-19-20 left , sent mychart msg with resources,msg read, 03-10-20 left , sent f/u mychart msg) Patient Discharged?: Yes Patient reported that caregiver was able to meet their needs today?: N/A [facility] attempted to contact Pt at [phone] for f/u -no answer -left vm to return call to [phone] or send mychart msg This is [facility]'s 3rd outreach to Pt 02-19-20 Left vm 02-19-20 Sent mychart msg with resources, msg read Pt has not responded [facility] will send f/u mychart msg No further contact is indicated at this time Pt has been provided resources in [employer] msg, msg read Pt has been provided [facility]'s contact info CONSTANCE Parker March 10, 2020 documented in this encounterTelephone Encounter - Shubham Barrios LPN - 03/18/2020 11:43 AM EDTLast refill 02/18/20 Qty: 60 with 0 refills Last ov 12/25/19 Has appt 03/25/20 Shubham Barrios LPN documented in this encounter
== END ==
PROVIDERS: PCP Registered Nurse; Referring Provider Internal Medicine Cardiovascular Disease; Visit Provider Internal Medicine Cardiovascular Disease
DX: E78.5 Hyperlipidemia, unspecified (principal); I25.10 Atherosclerotic heart disease of native coronary artery without angina pectoris
CPT/HCPCS: 36415; 80061; 80076

== ENCOUNTER → 2020-02-22 15:33 | Outpatient (CLI) | payer MEDICAID, SELFPAY ==
[2017-11-21 12:50] VITALS: BMI 32.3
[2019-12-31 14:18] VITALS: BMI 33.1
== END ==
PROVIDERS: PCP Registered Nurse; Referring Provider Otolaryngology Otolaryngology/Facial Plastic Surgery; Visit Provider Otolaryngology Otolaryngology/Facial Plastic Surgery
DX: J32.9 Chronic sinusitis, unspecified (principal)
CPT/HCPCS: 87070; 87205

== ENCOUNTER → 2020-03-08 14:23 | Outpatient (CLI) | payer MEDICAID, SELFPAY ==
[2017-11-21 12:50] VITALS: BMI 32.3
[2019-12-31 14:18] VITALS: BMI 33.1
--- NOTE | 2020-03-08 14:25 | CT_ITS ---
STUDY: CT MAXILLOFACIAL SINUSES REASON FOR EXAM: Male, 54 years old. SINUSITIS RADIATION DOSAGE (If Supplied By Facility): CTDIvol = ( 33.45 ) mGy, DLP = ( 793.09 ) mGycm TECHNIQUE: The patient was scanned in a multi detector CT scanner. High resolution axial imaging was performed without the administration of intravenous contrast material. Sagittal and coronal images were reconstructed. Individualized dose optimization techniques were used for this CT. COMPARISON: None. FINDINGS: FRONTAL SINUSES: Normal aeration, without mucosal inflammatory disease. ETHMOIDAL SINUSES: Normal aeration, without mucosal inflammatory disease. MAXILLARY SINUSES: Normal aeration, without mucosal inflammatory disease. SPHENOIDAL SINUSES: Normal aeration, without mucosal inflammatory disease. There is patency of the bilateral maxillary infundibuli with normal uncinate processes, ethmoid bullae, and hiatus semilunaris. Normal bilateral middle turbinates. Normal bilateral inferior turbinates. Normal midline nasal septum. There is patency of the bilateral nasal airways. The visualized osseous structures are normal. The visualized bilateral orbital contents are normal. CT/Sinus/Facial Bone IMPRESSION: Normal CT examination of the maxillofacial sinuses. Electronically Signed: Ninoska Blanotn MD at 11:10 EDT Tel , Service support ,
== END ==
PROVIDERS: PCP Registered Nurse; Referring Provider Otolaryngology Otolaryngology/Facial Plastic Surgery; Visit Provider Otolaryngology Otolaryngology/Facial Plastic Surgery
DX: J32.9 Chronic sinusitis, unspecified (principal)
CPT/HCPCS: 70486

== ENCOUNTER → 2020-03-14 15:02 | Outpatient (CLI) | payer MEDICAID, SELFPAY ==
[2017-11-21 12:50] VITALS: BMI 32.3
[2019-12-31 14:18] VITALS: BMI 33.1
--- NOTE | 2020-03-14 15:03 | ECHOD_ITS ---
Reason For Study: CP Procedure This was a 2D Doppler, Color Flow transthoracic echocardiogram. Exam performed in department. Left Ventricle Normal size and thickness. The estimated ejection fraction is 65 %. Stage 1 diastolic dysfunction. No regional wall motion abnormalities noted. Right Ventricle Normal size and thickness. Normal systolic function. Atria Normal left atrium. Normal right atrium. Normal atrial septum. Mitral Valve The mitral valve is structurally normal. No prolapse or stenosis seen. Tricuspid Valve Normal tricuspid valve. Unable to estimate RV systolic pressure due to insufficient tricuspid regurgitant envelope. Aortic Valve Normal aortic valve. Trisinus/trileaflet aortic valve. Pulmonic Valve Normal pulmonic valve. Great Vessels Normal aortic root. Normal arch. Normal inferior vena cava. Inferior vena cava collapse with sniff. Pericardium/Pleural No pericardial effusion. MMode/2D Measurements & Calculations LVIDd: 3.2 cm IVSd: 1.1 cm LA dimension: 3.1 cm LVIDs: 2.2 cm LVPWd: 1.2 cm RVDd: 3.1 cm FS: 30.7 % LAV(MOD-bp): 36.1 ml LA A4 area: 14.4 cm2 RA A4 area: 12.7 cm2 LAV(MOD-bp) Indexed: 16.0 ml/m2 LAV(MOD-sp2): 37.3 ml LAV(MOD-sp4): 35.8 ml Time Measurements MV dec time: 0.16 sec Doppler Measurements & Calculations MV E max henry: 71.3 cm/sec Lat Peak E' Henry: 11.6 cm/sec Med Peak E' Henry: 7.5 cm/sec MV A max henry: 103.4 cm/sec E/E' lat: 6.1 E/E' med: 9.5 MV E/A: 0.69 MV V2 max: 107.4 cm/sec MV P1/2t max henry: 89.9 cm/sec Ao V2 max: 133.9 cm/sec MV max P.6 mmHg MV P1/2t: 49.2 msec Ao max P.2 mmHg MV V2 mean: 64.4 cm/sec MV dec slope: 535.8 cm/sec2 Ao V2 mean: 92.5 cm/sec MV mean P.9 mmHg MVA(P1/2t): 4.5 cm2 Ao mean P.9 mmHg MV V2 VTI: 18.1 cm Ao V2 VTI: 20.9 cm LV V1 max: 117.3 cm/sec PA V2 max: 97.3 cm/sec LV V1 max P.5 mmHg LV V1 mean P.1 mmHg LV V1 mean: 82.9 cm/sec LV V1 VTI: 21.0 cm Interpretation Summary The estimated ejection fraction is 65 %. Stage 1 diastolic dysfunction. Unable to estimate RV systolic pressure due to insufficient tricuspid regurgitant envelope. Compared to echo report dated 06/01/2019, no appreciable changes noted. The study was technically difficult. Ordering Physician: Chris Martin Referring Physician: Chris Martin Performed By: Olivier Mckeon RCS
== END ==
PROVIDERS: PCP Registered Nurse; Referring Provider Internal Medicine Cardiovascular Disease; Visit Provider Internal Medicine Cardiovascular Disease
DX: I25.10 Atherosclerotic heart disease of native coronary artery without angina pectoris (principal); R07.9 Chest pain, unspecified; E78.5 Hyperlipidemia, unspecified
CPT/HCPCS: 93306

== ENCOUNTER 2021-05-12 15:59 | Emergency (ER) | payer MEDICAID, SELFPAY ==
[2017-11-21 12:50] VITALS: BMI 32.3
[2021-05-12 15:59] VITALS: BP 201/118; PULSE 130; RESP 24; TEMP 36.1; O2SAT 97; BMI 30.6
--- NOTE | 2021-05-12 16:18 | CT_ITS ---
STUDY: CT ABDOMEN AND PELVIS WITH CONTRAST REASON FOR EXAM: Male, 55 years old. Abdominal pain and cramping diarrhea RADIATION DOSAGE (If Supplied By Facility): CTDIvol = ( 18.52 ) mGy, DLP = ( 2083.69 ) mGycm TECHNIQUE: CT images were obtained from the dome of the diaphragm to the symphysis pubis without oral contrast. IV 100mL Isovue-370 was administered. Sagittal and coronal images were reconstructed. Individualized dose optimization techniques were used for this CT. COMPARISON: 09 February 2019 FINDINGS: The visualized lung bases are unremarkable. The visualized portions of the heart are within normal limits. Liver is fatty infiltrated without focal lesions.. Normal gallbladder and extrahepatic biliary system. Normal spleen. Normal pancreas. Normal bilateral adrenal glands. Normal right kidney. Normal left kidney. There is no intestinal obstruction. There is moderately extensive diverticulitis in the left lower quadrant surrounding the sigmoid without abscess or perforation. Appendix is normal. Normal abdominal aorta. Normal inferior vena cava. Normal retroperitoneum. Normal urinary bladder. Normal abdominal wall. Normal osseous structures. CT/Abdomen/Pelvis W IV Cont ONLY IMPRESSION: 1. Sigmoid diverticulitis, no abscess or perforation. 2. Hepatic steatosis. Hepatology referral advised. Electronically Signed: Nivia Acharya MD at 18:12 EDT Tel , Service support ,
--- NOTE | 2021-05-12 16:18 | EKG12_ITS ---
Test Reason : Blood Pressure : / mmHG Vent. Rate : 104 BPM Atrial Rate : 104 BPM P-R Int : 140 ms QRS Dur : 084 ms QT Int : 342 ms P-R-T Axes : 054 -08 037 degrees QTc Int : 449 ms Sinus tachycardia Confirmed by KATHY ANSARI, EVI ([id number]), editor managing director ELIOT ESCOBEDO ([id number]) on 05/17/2021 9:45:24 AM Referred By: TANNER/BREE Confirmed By:VEI CHAVEZ MD
--- NOTE | 2021-05-12 16:25 | EDS_ITS ---
HPI History of Present Illness Chief Complaint: General Illness Informant: patient Narrative Narrative: Patient presents with about 3 or so days of symptoms. At first he only stated today. But as I get more details this has been going on for 3 or 4 days. He has lower abdominal cramping and discomfort. He has had subjective fevers and chills. He does not have runny nose. He has a rare chronic cough but is not short of breath. He has no chest pain. He has not gotten a Covid shot. He states he is not eating and drinking much because he is nauseated. It does hurt somewhat to move his bowels. They have been soft. No blood has been seen. He denies abdominal surgery. No history of diverticular disease. No change in medicines. [facility] Medical History (Updated 05/12/21 @ 19:[address] Al Polk MD) Alcohol abuse Chest pain Depression Hyperlipidemia Hypertension NSTEMI (non-ST elevated myocardial infarction) Obesity (BMI 30.0-34.9) Home Medications omeprazole 20 mg PO DAILY 06/17/14 [History Last Taken 01/12/19 10:30 20 MG] aspirin 81 mg PO DAILY 06/17/16 [History Last Taken 11/21/17 04:30] cyclobenzaprine 10 mg PO PRN PRN 06/17/16 [History Last Taken 11/21/17 02:00] nitroglycerin 0.4 mg SUBLINGUAL Q5M PRN 03/14/17 [History Last Taken 11/20/17 23:30] L.acidoph, paracasei,B. lactis 1 ea PO DAILY 11/21/17 [History Last Taken 11/20/17 22:00] atorvastatin 80 mg tablet 80 mg PO QHS #30 tab 12/20/17 [Rx Last Taken Unknown] famotidine 20 mg tablet 20 mg PO DAILY 09/29/18 [History Last Taken 01/12/19 10: 30 20 MG] quetiapine 50 mg tablet 75 mg PO QHS PRN tab 09/29/18 [History Last Taken Unknown] thiamine HCl (vitamin B1) 100 mg tablet 100 mg PO DAILY 09/29/18 [History Last Taken Unknown] naltrexone microspheres 380 mg IM QMONTH 01/12/19 [History Last Taken Unknown] albuterol sulfate 1 - 2 puff INHALATION Q4H PRN PRN #1 inhaler 05/28/19 [Rx Last Taken Unknown] buspirone 10 mg PO TID 05/28/19 [History Last Taken Unknown] sertraline 50 mg PO DAILY 05/28/19 [History Last Taken Unknown] amlodipine 10 mg PO DAILY #30 tab 06/04/19 [Rx Last Taken Unknown] carvedilol 12.5 mg tablet 12.5 mg PO BID #60 tab 12/31/19 [Rx Last Taken Unknown] lisinopril 10 mg tablet 10 mg PO DAILY 12/31/19 [History Last Taken Unknown] melatonin 3 mg tablet 3 mg PO HS PRN 12/31/19 [History Last Taken Unknown] amoxicillin-pot clavulanate [Augmentin] 1 tab PO BID #20 tab 05/12/21 [Rx Last Taken Unknown] metoprolol tartrate 25 mg PO BID 05/12/21 [History Last Taken Unknown] ondansetron 4 mg PO Q8H PRN #10 tab 05/12/21 [Rx Last Taken Unknown] polyethylene glycol 3350 [Miralax] 17 g PO DAILY 05/12/21 [History Last Taken Unknown] ticagrelor 90 mg PO BID 05/12/21 [History Last Taken Unknown] Allergy/AdvReac Type Severity Reaction Status Date / Time pseudoephedrine AdvReac Other Verified 05/12/21 16:43 Family History Mother CAD (coronary artery disease) Father CAD (coronary artery disease) Brother CAD (coronary artery disease) Myocardial infarction Sister CAD (coronary artery disease) Surgical History History of tonsillectomy Hx of eye surgery Stented coronary artery Social History Smoking Status: Former smoker alcohol intake: former year quit: 2019 substance use type: former substance user Date of last use: 5 weeks ago caffeine: Yes Type: coffee Number of servings: 2 what type of physical activity do you participate in: none ROS ROS ED Constitutional Constitutional ED: Reports chills, fever(s) and subjective; Denies sweats Eyes Eyes: Denies blurry vision ENT ENT ED: Reports rhinorrhea; Denies sore throat Cardiovascular Cardiovascular: Denies chest pain or palpitations Respiratory/Chest Respiratory/Chest: Reports cough; Denies dyspnea or sputum Gastrointestinal Gastrointestinal: Reports abdominal pain, diarrhea and nausea; Denies constipation, melena or vomiting Genitourinary Genitourinary ED: Denies dysuria or hematuria Musculoskeletal Musculoskeletal: Denies arthralgias, back pain or neck pain Integumentary Denies rash Neurologic Neurologic: Denies headache(s) or weakness Psychiatric Psychiatric: Reports depression Endocrine Endocrinology: Denies polydipsia or polyuria Allergic/Immunologic Allergic/Immunologic ED: Denies mouth swelling or urticaria EXAM Physical Exam Const Vital Signs: 05/12/21 15:59 05/12/21 16:44 05/12/21 17:59 Temperature 96.9 F L 99.3 F H Temperature Source Temporal Oral Pulse Rate 130 H 99 90 Respiratory Rate 24 H 24 H Respiratory Effort Normal Respiratory Pattern Normal Blood Pressure 201/118 H 142/92 H 148/88 H Blood Pressure Mean 145 108 108 Pulse Ox 97 98 Oxygen Delivery Method Room Air Room Air 05/12/21 19:54 05/12/21 20:16 Temperature Temperature Source Pulse Rate 91 98 Respiratory Rate 16 Respiratory Effort Respiratory Pattern Blood Pressure 137/85 H 163/98 H Blood Pressure Mean 102 Pulse Ox Oxygen Delivery Method Patient looks slightly uncomfortable. He looks like he does not feel well. Positive well nourished and well developed General Appearance ED: well developed HEENT Reports dry mucous membranes; Denies moist mucous membranes Negative for trauma or tenderness Mouth ED: Yes dry mucous membranes Mouth: dry mucous membranes Eyes General Eye ED: Negative for pale conjunctiva Neck no JVD Chest Wall inspection of chest normal Resp normal respiratory effort and clear to auscultation bilaterally Effort and Inspection: Negative for pain with movement Auscultation: Negative for rales, rhonchi or wheezes Cardio regular rhythm Rate: tachycardic GI normal to inspection, nondistended, normoactive bowel sounds GI Narrative: Patient does have some lower abdominal tenderness that seems to be more prominent on the left than the right. No inguinal tenderness or fullness. Palpation: soft Back/Spine no CVA tenderness Neuro oriented x3 Sensorium / Orientation: alert Psych mental status grossly normal Skin no rashes or lesions noted and no wounds MDM MDM MDM Narrative Medical decision making narrative: Patient does have findings consistent with diverticulitis. This was suspected clinically. His white count is normal. Hemoglobin is normal. Electrolytes are okay. He has a slight bump in his liver function test. However, he has had these in the past. This is not new. He does not have pain in the right upper quadrant. Lactate is normal. Patient is feeling better after treatment here. He has no nausea. CAT scan does show the diverticulitis but without abscess or perforation. Plan will be to get him home on antibiotics. We discussed reasons to return. Lab Data Attestation: I reviewed the patient's lab results. Labs: Laboratory Results - last 24 hr 05/12/21 05/12/21 05/12/21 16:30 16:30 16:30 WBC 8.5 RBC 4.59 L Hgb 15.7 Hct 42.7 MCV 93.0 MCH 34.2 H MCHC 36.8 H RDW Std Deviation 40.2 RDW Coeff of [place] 11.8 Plt Count 136 L MPV 9.6 Immature Gran % (Auto) 0.400 Neut % (Auto) 73.0 H Lymph % (Auto) 13.7 L [place] % (Auto) 12.0 H Eos % (Auto) 0.7 Baso % (Auto) 0.2 Absolute Neuts (auto) 6.2 Absolute Lymphs (auto) 1.17 Nucleated RBC % 0 Sodium 136 Potassium 3.7 Chloride 102 Carbon Dioxide 23.0 Anion Gap 11 BUN 15 Creatinine 1.11 Estim Creat Clear Calc 78.55 Est GFR (MDRD) Af Amer 89 Est GFR (MDRD) Non-Af 73 BUN/Creatinine Ratio 13.5 Glucose 120 H Lactic Acid 1.6 Calcium 8.9 Total Bilirubin 1.20 H AST 51 H ALT 70 H Alkaline Phosphatase 90 Total Protein 7.6 Albumin 3.6 Globulin 4.0 Albumin/Globulin Ratio 0.9 Lipase 98 Urine Color Urine Clarity Urine pH Ur Specific [place] Urine Protein Urine Glucose (UA) Urine Ketones Urine Occult Blood Urine Nitrite Urine Bilirubin Urine Urobilinogen Ur Leukocyte Esterase Urine RBC Urine WBC Ur Squamous Epith Cells Urine Bacteria Urine Mucus 05/12/21 17:17 WBC RBC Hgb Hct MCV MCH MCHC RDW Std Deviation RDW Coeff of [place] Plt Count MPV Immature Gran % (Auto) Neut % (Auto) Lymph % (Auto) [place] % (Auto) Eos % (Auto) Baso % (Auto) Absolute Neuts (auto) Absolute Lymphs (auto) Nucleated RBC % Sodium Potassium Chloride Carbon Dioxide Anion Gap BUN Creatinine Estim Creat Clear Calc Est GFR (MDRD) Af Amer Est GFR (MDRD) Non-Af BUN/Creatinine Ratio Glucose Lactic Acid Calcium Total Bilirubin AST ALT Alkaline Phosphatase Total Protein Albumin Globulin Albumin/Globulin Ratio Lipase Urine Color Yellow Urine Clarity Clear Urine pH 6.0 Ur Specific [place] 1.020 Urine Protein Negative Urine Glucose (UA) Normal Urine Ketones Negative Urine Occult Blood Negative Urine Nitrite Negative Urine Bilirubin Negative Urine Urobilinogen 1 H Ur Leukocyte Esterase Negative Urine RBC 0 SEEN Urine WBC 0 SEEN Ur Squamous Epith Cells 0 SEEN Urine Bacteria 0 SEEN Urine Mucus 0 SEEN Radiography Diagnostic Testing: Clinical Impression(s) from Imaging Studies Abdomen/Pelvis CT 05/12/21 16:18 IMPRESSION: 1. Sigmoid diverticulitis, no abscess or perforation. 2. Hepatic steatosis. Hepatology referral advised. Electronically Signed: Nivia Acharya MD at 18:12 EDT Tel , Service support , Discharge Plan Triage Chief Complaint: General Illness ED Provider: Al Polk Dx/Rx/DC Orders Clinical Impression: Diverticulitis Instructions: ED Diverticulitis Prescriptions: New ondansetron 4 mg tablet,disintegrating 4 mg PO Q8H PRN (Reason: nausea and vomiting) Qty: 10 RF: 0 amoxicillin-pot clavulanate [Augmentin] 875-125 mg tablet 1 tab PO BID Qty: 20 RF: 0 No Action atorvastatin 80 mg tablet 80 mg PO QHS Qty: 30 RF: 12 quetiapine [Seroquel] 50 mg tablet 75 mg PO QHS PRN (Reason: Insomnia) RF: 0 famotidine 20 mg tablet 20 mg PO DAILY RF: 0 thiamine HCl (vitamin B1) 100 mg tablet 100 mg PO DAILY RF: 0 melatonin 3 mg tablet 3 mg PO HS PRNRF: 0 lisinopril 10 mg tablet 10 mg PO DAILY RF: 0 carvedilol 12.5 mg tablet 12.5 mg PO BID Qty: 60 RF: 11 omeprazole 20 MG capsule 20 mg PO DAILY RF: 0 cyclobenzaprine 10 MG tablet 10 mg PO PRN PRN (Reason: Pain) RF: 0 aspirin 81 MG tablet,delayed release (DR/EC) 81 mg PO DAILY RF: 0 nitroglycerin 0.4 MG tablet 0.4 mg SUBLINGUAL Q5M PRN (Reason: Chest Pain) RF: 0 L.acidoph, robei,B. lactis 1 EACH capsule 1 ea PO DAILY RF: 0 naltrexone microspheres 380 MG suspension,extended rel recon 380 mg IM QMONTH RF: 0 sertraline 100 MG tablet 50 mg PO DAILY RF: 0 buspirone 10 MG tablet 10 mg PO TID RF: 0 albuterol sulfate 1 INHALER inhaler 1 - 2 puff inhalation Q4H PRN PRN (Reason: Wheezing) Qty: 1 RF: 0 amlodipine 10 MG tablet 10 mg PO DAILY Qty: 30 RF: 0 polyethylene glycol 3350 [Miralax] 17 gram/dose Powder 17 g PO DAILY RF: 0 metoprolol tartrate 25 mg Tablet 25 mg PO BID RF: 0 ticagrelor 90 mg Tablet 90 mg PO BID RF: 0 Primary Care Provider: Chris Martin Referrals: Chris Martin MD [Primary Care Provider] - 3-5 Days if not improving Disposition Disposition: Home, Self Care Discharge Date/Time: 05/12/21 20:21
[2021-05-12] MEDS: Morphine 4 MG/ML Syringe IV (16:29)
[2021-05-12] MEDS: 0.9% Normal Saline 1,000 ML 1000 ML IV (16:29)
[2021-05-12] MEDS: Ondansetron 4 MG/2 ML Vial IV (16:29)
--- NOTE | 2021-05-12 16:42 | NURSING ---
ACCEPTED AT [facility].
[2021-05-12 16:44] VITALS: BP 142/92; PULSE 99; RESP 24; TEMP 37.4; O2SAT 98
[2021-05-12 16:50] LABS: Absolute Lymphocyte Count 1.17 X10^3/uL (0.83-4.51); Absolute Neutrophil Count 6.2 X10^3/uL (2.0-7.7); Basophil# 0.02 X10^3/uL; Basophil% 0.2 % (0-1); Eosinophil# 0.06 X10^3/uL; Eosinophils% 0.7 % (0-5); Hematocrit 42.7 % (40-54); Hemoglobin 15.7 g/dL (13.0-16.5); Lymphocyte # 1.17 X10^3/ul (0.83-4.51); Lymphocyte % 13.7 % (19-41); Mean Corp Hgb Conc 36.8 g/dL (32-36); Mean Corpuscular Hgb 34.2 pg (27.0-32.0); Mean Platelet Vol. 9.6 fl (6.2-12.0); Monocyte# 1.02 X10^3/uL; NRBC Flagged by Analyzer 0 % (0-5); Neutrophil # 6.22 X10^3/uL (2.7-7.7); Platelet Count 136 K/mm3 (150-450); RBC Distribution Width CV 11.8 % (11.6-14.6); RBC Distribution Width SD 40.2 fl (35.1-43.9); Red Blood Count 4.59 M/mm3 (4.6-6.2); White Blood Count 8.5 K/mm3 (4.4-11.0)
[2021-05-12 17:01] LABS: ALB/GLOB Ratio 0.9 RATIO (0.9-2.4); AST(SGOT) 51 U/L (15-37); Alanine Aminotransfer ALT/SGPT 70 U/L (16-61); Albumin, Serum 3.6 g/dL (3.2-5.0); Alkaline Phosphatase 90 U/L (45-117); Anion Gap 11 (5-15); BUN 15 mg/dL (7-18); BUN/Creat Ratio 13.5 RATIO (10-20); Calcium,Total 8.9 mg/dL (8.5-10.1); Chloride 102 mmol/L (98-107); Creatinine, Serum 1.11 mg/dL (0.70-1.30); EST Glomerular Filtration Rate 73 mL/min (>60); Est Glom Filt Rate - Afr Amer 89 mL/min (>60); Estimated Creatinine Clearance 78.55 ml/min; Glucose 120 mg/dL (74-106); Lipase 98 U/L (73-393); Potassium 3.7 mmol/L (3.5-5.1); Protein, Total 7.6 g/dL (6.4-8.2); Sodium Level 136 mmol/L (136-145)
[2021-05-12 17:03] LABS: Lactic Acid 1.6 mmol/L (0.4-1.9)
[2021-05-12 17:27] LABS: Bacteria 0 SEEN /hpf (None Seen); Mucous, Urine 0 SEEN /hpf (<or=2+); Red Blood Cells-Urine 0 SEEN /hpf (0-5); Squamous Epithelial Cells - UA 0 SEEN /hpf (0-5); White Blood Cells 0 SEEN /hpf (0-5)
[2021-05-12 17:29] LABS: Color, Urine Yellow (Yellow); Glucose, Dipstick Normal (Normal); Ketone-Dipstick Negative (Negative); Leukocyte Esterase-Dipstick Negative /ul (Negative); Nitrite-Dipstick Negative (Negative); Occult Blood-Urine Negative /ul (Negative); Protein-Dipstick Negative (Negative); Urine Bilirubin Dipstick Negative (Negative); Urine Clarity Clear (Clear); Urine Urobilinogen 1 mg/dl (Normal)
[2021-05-12 17:59] VITALS: BP 148/88; PULSE 90
[2021-05-12 19:54] VITALS: BP 137/85; PULSE 91
[2021-05-12 20:16] VITALS: BP 163/98; PULSE 98; RESP 16
== END 2021-05-12 20:21 | disposition home or self-care (01) ==
PROVIDERS: Emergency Provider Emergency Medicine; PCP Internal Medicine Cardiovascular Disease
DX: K57.32 Diverticulitis of large intestine without perforation or abscess without bleeding (principal); I25.2 Old myocardial infarction; E78.5 Hyperlipidemia, unspecified; F32.9 Major depressive disorder, single episode, unspecified; I10 Essential (primary) hypertension; Z87.891 Personal history of nicotine dependence; Z79.899 Other long term (current) drug therapy
CPT/HCPCS: 74177; 80053; 81001; 83605; 83690; 85025; 93005; 96361; 96365; 96375; 99283; J7030; J7050; Q9967; A4216; J2405

== ENCOUNTER 2021-11-08 17:41 | Emergency (ER) | payer MEDICAID, SELFPAY ==
[2017-11-21 12:50] VITALS: BMI 32.3
[2021-11-08 17:43] VITALS: BP 129/80; PULSE 103; RESP 18; TEMP 36.3; O2SAT 97; BMI 33.0
--- NOTE | 2021-11-08 18:06 | CT_ITS ---
STUDY: CT Abdomen And Pelvis W/O Contrast Injection 11/08/2021 7:05 PM REASON FOR EXAM: Male, 55 years old. ABDOMINAL PAIN Pain LLQ TECHNIQUE: Transaxial images were obtained without oral contrast, and without intravenous contrast. Individualized dose optimization techniques were used for this CT. COMPARISON: May 12 2021 5:21pm FINDINGS: The visualized lung bases are unremarkable. The visualized portions of the heart are within normal limits. Normal liver. Normal gallbladder and extrahepatic biliary system. Normal spleen. Normal pancreas. Normal bilateral adrenal glands. No acute findings of the right kidney. No acute findings of the left kidney. Normal visualized stomach. Normal small intestine. There are multiple colonic diverticula consistent with diverticulosis. The appendix is visualized and appears normal. There are calcifications of the abdominal aorta. This is consistent for atherosclerotic disease. There is no abdominal aortic aneurysm. Normal inferior vena cava. Subcentimeter mesenteric lymph nodes. Normal urinary bladder. There is an umbilical hernia containing fat. There are diffuse degenerative changes of the visualized lumbar spine. IMPRESSION: (NOT LISTED IN ORDER OF SIGNIFICANCE) There are multiple colonic diverticula consistent with diverticulosis. There are no acute findings. Other findings as above. Electronically Signed: Sergio Prabhakar MD at 19:08 EDT , CT/Abdomen/Pelvis without Cont
--- NOTE | 2021-11-08 18:06 | EKG12_ITS ---
Test Reason : DYSRHYTHMIA Blood Pressure : / mmHG Vent. Rate : 095 BPM Atrial Rate : 095 BPM P-R Int : 142 ms QRS Dur : 080 ms QT Int : 366 ms P-R-T Axes : 036 001 040 degrees QTc Int : 459 ms Normal sinus rhythm Inferior infarct , age undetermined Abnormal ECG Confirmed by TEENA ANSARI, KIRSTEN ([id number]), website/blog editor ELIOT ESCOBEDO ([id number]) on 11/09/2021 12:49:53 P M Referred By: ESAU Confirmed By:JORY DICKINSON MD
--- NOTE | 2021-11-08 18:13 | EX.ED.DYSGE1 ---
HPI History of Present Illness Chief Complaint: Abn Labs Informant: patient Narrative Narrative: Patient was sent in because of high potassium. The numbers are unknown to us or him, they were done yesterday, then repeated today and he was sent in because they are still high. He states in the past year or 2 he has had COVID 3 times. In order to get back on his usual prescriptions, he was advised that he needs a physical and blood work, so he went in simply for that. He denies any trouble urinating. He denies any recent chest pain or shortness of breath. He had a remote NSTEMI. Also states he had diverticulitis in June which was 4 months ago. He was treated with antibiotics, the pain went away and for the past 2 or 3 weeks has been back and relatively mild. Denies any diarrhea bright blood per rectum or melena. No nausea, vomiting, fevers. States he has a history of renal insufficiency, he has not required care from a physical therapy professor yet. [facility] Medical History (Updated 11/08/21 @ 19:[address] Abdoulaye Wesley MD) Alcohol abuse Chest pain Depression Hyperlipidemia Hypertension NSTEMI (non-ST elevated myocardial infarction) Obesity (BMI 30.0-34.9) Home Medications omeprazole 20 mg PO DAILY 06/17/14 [History Last Taken 01/12/19 10:30 20 MG] aspirin 81 mg PO DAILY 06/17/16 [History Last Taken 11/21/17 04:30] cyclobenzaprine 10 mg PO PRN PRN 06/17/16 [History Last Taken 11/21/17 02:00] nitroglycerin 0.4 mg SUBLINGUAL Q5M PRN 03/14/17 [History Last Taken 11/20/17 23:30] L.acidoph, paracasei,B. lactis 1 ea PO DAILY 11/21/17 [History Last Taken 11/20/17 22:00] atorvastatin 80 mg tablet 80 mg PO QHS #30 tab 12/20/17 [Rx Last Taken Unknown] famotidine 20 mg tablet 20 mg PO DAILY 09/29/18 [History Last Taken 01/12/19 10:30 20 MG] quetiapine 50 mg tablet 75 mg PO QHS PRN tab 09/29/18 [History Last Taken Unknown] thiamine HCl (vitamin B1) 100 mg tablet 100 mg PO DAILY 09/29/18 [History Last Taken Unknown] naltrexone microspheres 380 mg IM QMONTH 01/12/19 [History Last Taken Unknown] albuterol sulfate 1 - 2 puff INHALATION Q4H PRN PRN #1 inhaler 05/28/19 [Rx Last Taken Unknown] buspirone 10 mg PO TID 05/28/19 [History Last Taken Unknown] sertraline 50 mg PO DAILY 05/28/19 [History Last Taken Unknown] amlodipine 10 mg PO DAILY #30 tab 06/04/19 [Rx Last Taken Unknown] carvedilol 12.5 mg tablet 12.5 mg PO BID #60 tab 12/31/19 [Rx Last Taken Unknown] lisinopril 10 mg tablet 10 mg PO DAILY 12/31/19 [History Last Taken Unknown] melatonin 3 mg tablet 3 mg PO HS PRN 12/31/19 [History Last Taken Unknown] amoxicillin-pot clavulanate [Augmentin] 1 tab PO BID #20 tab 05/12/21 [Rx Last Taken Unknown] metoprolol tartrate 25 mg PO BID 05/12/21 [History Last Taken Unknown] ondansetron 4 mg PO Q8H PRN #10 tab 05/12/21 [Rx Last Taken Unknown] polyethylene glycol 3350 [Miralax] 17 g PO DAILY 05/12/21 [History Last Taken Unknown] ticagrelor 90 mg PO BID 05/12/21 [History Last Taken Unknown] Allergy/AdvReac Type Severity Reaction Status Date / Time pseudoephedrine AdvReac Other Verified 11/08/21 17:45 Family History Mother CAD (coronary artery disease) Father CAD (coronary artery disease) Brother CAD (coronary artery disease) Myocardial infarction Sister CAD (coronary artery disease) Surgical History History of tonsillectomy Hx of eye surgery Stented coronary artery Social History Smoking Status: Former smoker alcohol intake: former year quit: 2018 substance use type: former substance user Date of last use: 5 weeks ago caffeine: Yes Type: coffee Number of servings: 2 what type of physical activity do you participate in: none ROS ROS ED Constitutional Constitutional ED: Denies chills or fever(s) Eyes Eyes: Denies change in vision or diplopia ENT ENT ED: Denies rhinorrhea or sore throat Cardiovascular Cardiovascular: Denies chest pain or palpitations Respiratory/Chest Respiratory/Chest: Denies cough or dyspnea Gastrointestinal Gastrointestinal: Reports abdominal pain; Denies diarrhea, nausea or vomiting Genitourinary Genitourinary ED: Denies dysuria or hematuria Musculoskeletal Musculoskeletal: Denies back pain or neck pain Integumentary Denies abscess or rash Neurologic Neurologic: Denies headache(s), paresthesias or weakness Psychiatric Psychiatric: Denies anxiety or suicidal thoughts EXAM Physical Exam Const Vital Signs: 11/08/21 17:43 Temperature 97.4 F L Temperature Source Temporal Pulse Rate 103 H Respiratory Rate 18 Blood Pressure 129/80 H Blood Pressure Mean 96 Pulse Ox 97 Oxygen Delivery Method Room Air Positive well nourished, well developed and obese General Appearance ED: well developed and NAD Nutritional Appearance: obese HEENT Reports moist mucous membranes normocephalic and atraumatic Eyes PERRL and EOMs intact bilaterally Neck full ROM and supple Resp normal respiratory effort and clear to auscultation bilaterally Cardio regular rate, regular rhythm and no murmurs GI non-distended GI Narrative: Mild-moderate tenderness medial aspect of the left lower quadrant close to the umbilicus but not occluding it. No hernias. Outward inspection is normal. Auscultation: normoactive bowel sounds Palpation: soft Back/Spine no CVA tenderness General Back: other FROM Extremity normal to inspection General Extremety ED: Negative for edema, pulses abnormal or tenderness General Extremity: Negative for edema or pulses abnormal Neuro oriented x3, CN's II-XII intact bilaterally and no sensory deficits noted Sensorium / Orientation: awake and alert Motor Exam: strength 5/5 throughout Skin no rashes or lesions noted and no wounds MDM MDM MDM Narrative Medical decision making narrative: Patient does have LUZ MARIA compared with the labs last April, however his potassium here is reading just within normal limits at 5.1 which is the high end of normal, and this is even with mild hemolysis indicating that his actual potassium level is probably a bit lower. Also, his creatinine last April appear to be a bit of an anomaly, the majority of his measurements are between 1 and 2, some as high as 2.9. Additionally, his EKG shows no signs of hyperkalemia. His urinalysis is normal and dilute. While the patient was here, we did a CT of the abdomen and pelvis since he was having recurrent pain that felt like diverticulitis. Diverticulosis was noted without signs of diverticulitis or any other acute abnormality. I think he can be discharged home to follow-up closely. He is urinating normally and his urinalysis is unremarkable. I discussed with with Dr. Elias regarding his lab results and disposition. Lab Data Attestation: I reviewed the patient's lab results. Labs: Laboratory Results - last 24 hr 11/08/21 11/08/21 11/08/21 18:20 18:20 18:20 WBC 8.1 RBC 4.39 L Hgb 14.8 Hct 41.8 MCV 95.2 H MCH 33.7 H MCHC 35.4 RDW Std Deviation 41.9 RDW Coeff of [place] 12.0 Plt Count 142 L MPV 9.4 Immature Gran % (Auto) 0.100 Neut % (Auto) 64.3 Lymph % (Auto) 26.5 [place] % (Auto) 7.2 Eos % (Auto) 1.5 Baso % (Auto) 0.4 Absolute Neuts (auto) 5.2 Absolute Lymphs (auto) 2.13 Nucleated RBC % 0 Sodium 135 L Potassium 5.1 Chloride 103 Carbon Dioxide 26.0 Anion Gap 6 BUN 14 Creatinine 1.56 H Estim Creat Clear Calc 55.89 Est GFR (MDRD) Af Amer 60 Est GFR (MDRD) Non-Af 49 L BUN/Creatinine Ratio 9.0 L Glucose 98 Calcium 8.5 Urine Color Yellow Urine Clarity Clear Urine pH 5.0 Ur Specific [place] 1.005 Urine Protein Negative Urine Glucose (UA) Normal Urine Ketones Negative Urine Occult Blood Negative Urine Nitrite Negative Urine Bilirubin Negative Urine Urobilinogen Normal Ur Leukocyte Esterase Negative Urine RBC 0 SEEN Urine WBC 0 SEEN Ur Squamous Epith Cells 0 SEEN Urine Bacteria 0 SEEN Urine Mucus 0 SEEN Radiography Diagnostic Testing: Clinical Impression(s) from Imaging Studies Abdomen/Pelvis CT 11/08/21 18:06 EKG Initial EKG: Attestation: I personally reviewed and interpreted this EKG as follows: Interpretation: Sinus Rhythm (95) and No Acute Injury Pattern Comments: Inferior Q waves. Narrow QRS, no AV block, no peaked T waves. Prior EKG tracings: available for review Prior: Unchanged Discharge Plan Triage Chief Complaint: Abn Labs ED Provider: Abdoulaye Wesley Dx/Rx/DC Orders Clinical Impression: LUZ MARIA (acute kidney injury), Abdominal pain, left lower quadrant, CRI (chronic renal insufficiency) Instructions: Acute Kidney Failure Dc Prescriptions: No Action atorvastatin 80 mg tablet 80 mg PO QHS Qty: 30 RF: 12 quetiapine [Seroquel] 50 mg tablet 75 mg PO QHS PRN (Reason: Insomnia) RF: 0 famotidine 20 mg tablet 20 mg PO DAILY RF: 0 thiamine HCl (vitamin B1) 100 mg tablet 100 mg PO DAILY RF: 0 melatonin 3 mg tablet 3 mg PO HS PRNRF: 0 lisinopril 10 mg tablet 10 mg PO DAILY RF: 0 carvedilol 12.5 mg tablet 12.5 mg PO BID Qty: 60 RF: 11 omeprazole 20 MG capsule 20 mg PO DAILY RF: 0 cyclobenzaprine 10 MG tablet 10 mg PO PRN PRN (Reason: Pain) RF: 0 aspirin 81 MG tablet,delayed release (DR/EC) 81 mg PO DAILY RF: 0 nitroglycerin 0.4 MG tablet 0.4 mg SUBLINGUAL Q5M PRN (Reason: Chest Pain) RF: 0 L.acidoph, paracasei,B. lactis 1 EACH capsule 1 ea PO DAILY RF: 0 naltrexone microspheres 380 MG suspension,extended rel recon 380 mg IM QMONTH RF: 0 sertraline 100 MG tablet 50 mg PO DAILY RF: 0 buspirone 10 MG tablet 10 mg PO TID RF: 0 albuterol sulfate 1 INHALER inhaler 1 - 2 puff inhalation Q4H PRN PRN (Reason: Wheezing) Qty: 1 RF: 0 amlodipine 10 MG tablet 10 mg PO DAILY Qty: 30 RF: 0 polyethylene glycol 3350 [Miralax] 17 gram/dose Powder 17 g PO DAILY RF: 0 metoprolol tartrate 25 mg Tablet 25 mg PO BID RF: 0 ticagrelor 90 mg Tablet 90 mg PO BID RF: 0 ondansetron 4 mg tablet,disintegrating 4 mg PO Q8H PRN (Reason: nausea and vomiting) Qty: 10 RF: 0 amoxicillin-pot clavulanate [Augmentin] 875-125 mg tablet 1 tab PO BID Qty: 20 RF: 0 Primary Care Provider: Pema Yang Referrals: Keren Kwon BOOK ILLUSTRATOR, BOOK ILLUSTRATOR-C [NON-STAFF] - As soon as possible Disposition Disposition: Home, Self Care Discharge Date/Time: 11/08/21 19:54
[2021-11-08 18:25] LABS: Bacteria 0 SEEN /hpf (None Seen); Mucous, Urine 0 SEEN /hpf (<or=2+); Red Blood Cells-Urine 0 SEEN /hpf (0-5); Squamous Epithelial Cells - UA 0 SEEN /hpf (0-5); White Blood Cells 0 SEEN /hpf (0-5)
[2021-11-08 18:27] LABS: Color, Urine Yellow (Yellow); Glucose, Dipstick Normal (Normal); Ketone-Dipstick Negative (Negative); Leukocyte Esterase-Dipstick Negative /ul (Negative); Nitrite-Dipstick Negative (Negative); Occult Blood-Urine Negative /ul (Negative); Protein-Dipstick Negative (Negative); Specific Gravity, Urine 1.005 (1.002-1.030); Urine Bilirubin Dipstick Negative (Negative); Urine Clarity Clear (Clear); Urine Urobilinogen Normal (Normal)
[2021-11-08 18:28] LABS: Absolute Lymphocyte Count 2.13 X10^3/uL (0.83-4.51); Absolute Neutrophil Count 5.2 X10^3/uL (2.0-7.7); Basophil# 0.03 X10^3/uL; Basophil% 0.4 % (0-1); Eosinophil# 0.12 X10^3/uL; Eosinophils% 1.5 % (0-5); Hematocrit 41.8 % (40-54); Hemoglobin 14.8 g/dL (13.0-16.5); Lymphocyte # 2.13 X10^3/ul (0.83-4.51); Lymphocyte % 26.5 % (19-41); Mean Corp Hgb Conc 35.4 g/dL (32-36); Mean Corpuscular Hgb 33.7 pg (27.0-32.0); Mean Corpuscular Volume 95.2 fL (80-94); Mean Platelet Vol. 9.4 fl (6.2-12.0); Monocyte# 0.58 X10^3/uL; Monocyte% 7.2 % (0-10); NRBC Flagged by Analyzer 0 % (0-5); Neutrophil # 5.18 X10^3/uL (2.7-7.7); Neutrophil % 64.3 % (47-70); Platelet Count 142 K/mm3 (150-450); RBC Distribution Width SD 41.9 fl (35.1-43.9); Red Blood Count 4.39 M/mm3 (4.6-6.2); White Blood Count 8.1 K/mm3 (4.4-11.0)
[2021-11-08 18:40] LABS: Anion Gap 6 (5-15); BUN 14 mg/dL (7-18); Calcium,Total 8.5 mg/dL (8.5-10.1); Chloride 103 mmol/L (98-107); Creatinine, Serum 1.56 mg/dL (0.70-1.30); EST Glomerular Filtration Rate 49 mL/min (>60); Est Glom Filt Rate - Afr Amer 60 mL/min (>60); Estimated Creatinine Clearance 55.89 ml/min; Glucose 98 mg/dL (74-106); Potassium 5.1 mmol/L (3.5-5.1); Sodium Level 135 mmol/L (136-145)
== END 2021-11-08 19:54 | disposition home or self-care (01) ==
PROVIDERS: Emergency Provider Emergency Medicine; PCP Pediatrics; Visit Provider Emergency Medicine
DX: N17.9 Acute kidney failure, unspecified (principal); R10.32 Left lower quadrant pain; N18.9 Chronic kidney disease, unspecified; E66.9 Obesity, unspecified; I25.2 Old myocardial infarction; Z86.16 Personal history of COVID-19; Z87.891 Personal history of nicotine dependence
CPT/HCPCS: 74176; 80048; 81001; 85025; 93005; 99284

== ENCOUNTER 2023-01-02 08:47 | Emergency (ER) | payer MEDICAID, SELFPAY ==
[2017-11-21 12:50] VITALS: BMI 32.3
[2023-01-02 08:48] VITALS: BP 196/145; PULSE 102; RESP 18; TEMP 36; O2SAT 98; BMI 28.4
--- NOTE | 2023-01-02 09:01 | CT_ITS ---
STUDY: CT ABDOMEN AND PELVIS WITHOUT CONTRAST REASON FOR EXAM: Male, 57 years old. Chest pain dizziness. Nausea and vomiting. RADIATION DOSAGE (If Supplied By Facility): CTDIvol = ( 8.40 ) mGy, DLP = ( 447.11 ) mGycm TECHNIQUE: Transaxial images were obtained from the dome of the diaphragm to the symphysis pubis without oral contrast, and without intravenous contrast. Sagittal and coronal images were reconstructed. Individualized dose optimization techniques were used for this CT. COMPARISON: Comparison is made with prior study dated November 08, 2021 FINDINGS: The visualized lung bases are unremarkable. The visualized portions of the heart are within normal limits. There is decreased attenuation of the liver consistent with steatosis. Mild hepatomegaly. Normal gallbladder and extrahepatic biliary system. There is mild splenomegaly. Normal pancreas. Normal bilateral adrenal glands. Normal right kidney. Normal left kidney. Normal visualized stomach. Normal small intestine. There are multiple colonic diverticula consistent with diverticulosis. The appendix is visualized and appears normal. There is scattered atherosclerotic calcification of the abdominal aorta, without a demonstrated aneurysm. Normal inferior vena cava. Normal retroperitoneum. Normal urinary bladder. There is a right-sided inguinal hernia containing adipose tissue. There are mild degenerative changes of the visualized lumbar spine. CT/Abdomen/Pelvis without Cont IMPRESSION: Mild hepatomegaly and splenomegaly. Diffuse fatty infiltration of the liver. Scattered sigmoid diverticula. Electronically Signed: Jose F Restrepo MD at 9:48 EDT ,
--- NOTE | 2023-01-02 09:01 | EKG12_ITS ---
Test Reason : CP Blood Pressure : / mmHG Vent. Rate : 091 BPM Atrial Rate : 091 BPM P-R Int : 142 ms QRS Dur : 076 ms QT Int : 386 ms P-R-T Axes : 063 -05 031 degrees QTc Int : 474 ms Poor data quality, interpretation may be adversely affected Normal sinus rhythm Cannot rule out Inferior infarct , age undetermined Abnormal ECG Confirmed by TEENA ANSARI, KIRSTEN ([id number]), editorial manager ELIOT ESCOBEDO ([id number]) on 01/04/2023 10:07:55 A M Referred By: ESAU Confirmed By:JORY DICKINSON MD
--- NOTE | 2023-01-02 09:03 | EDS_ITS ---
HPI History of Present Illness Chief Complaint: Chest Pain Informant: patient Narrative Narrative: 57-year-old male not been feeling well lately presenting with 3 days of vomiting, abdominal pain, left-sided chest sharp nonpleuritic pain, a little trouble breathing and some wheezing when he is dyspneic, and diarrhea. He states the vomiting and diarrhea have been around 10 or less times per day, no blood. He denies any known fevers. He has runny nose, congestion, cough but states that is not new or worse in the past 3 days and he has that chronically, perhaps due to seasonal allergies. He cannot remember if the abdominal pain or the vomiting started first. The abdominal pain has been in the left side. No trouble urinating. No recent travel out of the area, pain or swelling in the leg, history of DVT or PE. No recent hospitalization or surgery. [facility] Medical History (Updated 01/02/23 @ 11:[address] Abdoulaye Wesley MD) Alcohol abuse Chest pain Depression Hyperlipidemia Hypertension NSTEMI (non-ST elevated myocardial infarction) Obesity (BMI 30.0-34.9) Home Medications omeprazole 20 mg capsule,delayed release 20 mg PO DAILY heart burn 06/17/14 [History Last Taken 01/12/19 10:30 20 MG] aspirin 81 mg tablet,delayed release 81 mg PO DAILY heart 06/17/16 [History Last Taken 11/21/17 04:30] cyclobenzaprine 10 mg tablet 10 mg PO PRN PRN Pain 06/17/16 [History Last Taken 11/21/17 02:00] L.acidoph, paracasei,B. lactis 10 billion cell capsule 1 ea PO DAILY supplement 11/21/17 [History Last Taken 11/20/17 22:00] atorvastatin 80 mg tablet 80 mg PO QHS #30 tabs 12/20/17 [Rx Last Taken Unknown] albuterol sulfate 90 mcg/actuation aerosol inhaler 1 - 2 puff inhalation Q4H PRN PRN Wheezing ##1 05/28/19 [Rx Last Taken Unknown] buspirone 10 mg tablet 10 mg PO TID depression 05/28/19 [History Last Taken Unknown] sertraline 100 mg tablet 50 mg PO DAILY depression 05/28/19 [History Last Taken Unknown] amlodipine 10 mg tablet 10 mg PO DAILY #30 tabs 06/04/19 [Rx Last Taken Unknown] lisinopril 10 mg tablet 10 mg PO DAILY 12/31/19 [History Last Taken Unknown] ondansetron 4 mg disintegrating tablet 4 mg PO Q8H PRN nausea and vomiting #10 tabs 05/12/21 [Rx Last Taken Unknown] carvedilol 12.5 mg tablet 6.25 mg PO BID 12/24/22 [History Last Taken Unknown] nitroglycerin 0.4 mg sublingual tablet 0.4 mg sublingual Q5M PRN Chest Pain #25 tabs 12/24/22 [Rx Last Taken Unknown] trazodone 50 mg tablet 50 mg PO DAILY 12/24/22 [History Last Taken Unknown] dicyclomine 10 mg capsule 20 mg PO Q6H PRN abdominal pain #20 CAPSULES 01/02/23 [Rx Last Taken Unknown] ondansetron 4 mg disintegrating tablet 8 mg PO Q8H PRN PRN Nausea #20 tabs 01/02/23 [Rx Last Taken Unknown] Allergy/AdvReac Type Severity Reaction Status Date / Time No Known Allergies Allergy Verified 12/24/22 09:33 Family History Mother CAD (coronary artery disease) Father CAD (coronary artery disease) Brother CAD (coronary artery disease) Myocardial infarction Sister CAD (coronary artery disease) Surgical History History of tonsillectomy Hx of eye surgery Stented coronary artery Social History Smoking Status: Former smoker alcohol intake: former year quit: 2019 substance use type: former substance user Date of last use: 5 weeks ago caffeine: Yes Type: coffee Number of servings: 2 what type of physical activity do you participate in: none ROS ROS ED Constitutional Constitutional ED: Reports fatigue and malaise; Denies chills or fever(s) Eyes Eyes: Denies change in vision or diplopia ENT ENT ED: Reports nasal congestion and rhinorrhea; Denies ear pain or sore throat Cardiovascular Cardiovascular: Reports chest pain; Denies palpitations or racing heartbeat Respiratory/Chest Respiratory/Chest: Reports cough and dyspnea Gastrointestinal Gastrointestinal: Reports abdominal pain, diarrhea, nausea and vomiting; Denies hematemesis, hematochezia or melena Genitourinary Genitourinary ED: Denies dysuria or hematuria Musculoskeletal Musculoskeletal: Denies back pain or neck pain Integumentary Denies abscess or rash Neurologic Neurologic: Denies headache(s), paresthesias or weakness Psychiatric Psychiatric: Denies anxiety or suicidal thoughts EXAM Physical Exam Const Vital Signs: 01/02/23 08:48 01/02/23 08:59 01/02/23 11:14 Temperature 96.8 F L Temperature Source Temporal Pulse Rate 102 H 82 Respiratory Rate 18 16 Respiratory Effort Normal Non-Labored Blood Pressure 196/145 H 131/86 H Blood Pressure Mean 162 Pulse Ox 98 97 Oxygen Delivery Method Room Air Positive well nourished and well developed General Appearance ED: well developed and NAD HEENT Reports moist mucous membranes normocephalic and atraumatic Eyes PERRL and EOMs intact bilaterally Neck full ROM and supple Resp normal respiratory effort and clear to auscultation bilaterally Cardio regular rate, regular rhythm and no murmurs GI non-distended GI Narrative: Tender throughout the left side without guarding or rebound, otherwise benign nontender. Auscultation: normoactive bowel sounds Palpation: soft Back/Spine no CVA tenderness General Back: other FROM Extremity normal to inspection General Extremety ED: Negative for edema, pulses abnormal or tenderness General Extremity: Negative for edema or pulses abnormal Neuro oriented x3, CN's II-XII intact bilaterally and no sensory deficits noted Sensorium / Orientation: awake and alert Motor Exam: strength 5/5 throughout Psych Mood & Affect: anxious Skin no rashes or lesions noted and no wounds MDM MDM MDM Narrative Medical decision making narrative: Patient's EKG is unremarkable, I performed a CT of his abdomen and pelvis given the pain and tenderness he was having throughout the left side and a history of diverticulosis, there is no diverticulitis seen, I reviewed the images and their interpretation and I agree with it, basically nothing acute but diverticulosis is noted. His chest x-ray is normal 2 views of my interpretation, radiology was in agreement there as well, the rest of his labs are unremarkable. He does have a mild elevated creatinine, but nothing that needs acutely admitted to the hospital. Supportive care advised, I will prescribe him some dicyclomine and Zofran which was given here along with some fluids, I suspect this is all viral given lack of findings on ancillary testing and symptoms in multiple areas and feeling poorly and sick. Given that his oxygen saturations are 98% on room air, and he states he has been wheezing at times when he is dyspneic, I do not think he needs to have an emergent work-up for PE right now. Radiology noted a left perihilar nodule and recommends CT for further evaluation. This does not need to be done emergently, I discussed this with the patient and need for follow-up. Lab Data Attestation: I reviewed the patient's lab results. Labs: Laboratory Results - last 24 hr 01/02/23 01/02/23 09:03 09:03 WBC 4.2 L RBC 4.85 Hgb 15.7 Hct 45.4 MCV 93.6 MCH 32.4 H MCHC 34.6 RDW Std Deviation 42.9 RDW Coeff of [place] 12.5 Plt Count 117 L MPV 9.3 Immature Gran % (Auto) 0.000 Neut % (Auto) 68.4 Lymph % (Auto) 22.7 [place] % (Auto) 7.3 Eos % (Auto) 0.9 Baso % (Auto) 0.7 Absolute Neuts (auto) 2.9 Absolute Lymphs (auto) 0.96 Nucleated RBC % 0 Sodium 136 Potassium 4.6 Chloride 100 Carbon Dioxide 28.0 Anion Gap 8 BUN 11 Creatinine 1.41 H Estim Creat Clear Calc 60.40 Est GFR (MDRD) Af Amer 67 Est GFR (MDRD) Non-Af 55 L BUN/Creatinine Ratio 7.8 L Glucose 110 H Calcium 8.9 Troponin I High Sens 9 Radiography Diagnostic Testing: Clinical Impression(s) from Imaging Studies Abdomen/Pelvis CT 01/02/23 09:01 IMPRESSION: Mild hepatomegaly and splenomegaly. Diffuse fatty infiltration of the liver. Scattered sigmoid diverticula. Electronically Signed: Jose F Restrepo MD at 9:48 EDT , Chest X-Ray 01/02/23 09:07 IMPRESSION: Questionable 8.9 mm x 7.2 mm spiculated nodule in the left perihilar region. Correlation with the CT of the chest is recommended. Electronically Signed: Jose F Restrepo MD at 9:50 EDT , Rhythm Strip Rhythm Strip: Sinus Rhythm Rate: 95 Ectopy: None EKG Initial EKG: Attestation: I personally reviewed and interpreted this EKG as follows: Interpretation: Sinus Rhythm and No Acute Injury Pattern Discharge Plan Triage Chief Complaint: Chest Pain ED Provider: Abdoulaye Wesley Dx/Rx/DC Orders Clinical Impression: Nausea vomiting and diarrhea, Left sided abdominal pain, Non-cardiac chest pain, Pulmonary nodule Instructions: Viral Gastroenteritis, ED Pulmonary Nodule, Solitary Prescriptions: New ondansetron [ondansetron] 4 mg tablet,disintegrating 8 mg PO Q8H PRN PRN (Reason: Nausea) Qty: 20 0RF dicyclomine 10 mg capsule 20 mg PO Q6H PRN (Reason: abdominal pain) Qty: 20 0RF No Action atorvastatin 80 mg tablet 80 mg PO QHS Qty: 30 12RF lisinopril 10 mg tablet 10 mg PO DAILY carvedilol 12.5 mg tablet 6.25 mg PO BID Rx Instructions: must administer with a meal/food trazodone 50 mg tablet 50 mg PO DAILY nitroglycerin 0.4 mg tablet, sublingual 0.4 mg SUBLINGUAL Q5M PRN (Reason: Chest Pain) Qty: 25 3RF omeprazole 20 MG capsule 20 mg PO DAILY Label Comments: REFLUX cyclobenzaprine 10 MG tablet 10 mg PO PRN PRN (Reason: Pain) aspirin 81 MG tablet,delayed release (DR/EC) 81 mg PO DAILY L.acidoph, paracasei,B. lactis 1 EACH capsule 1 ea PO DAILY sertraline 100 MG tablet 50 mg PO DAILY Label Comments: Take 1 tablet once a day. buspirone 10 MG tablet 10 mg PO TID Label Comments: Take 1 tablet by mouth three times a day albuterol sulfate 1 INHALER inhaler 1 - 2 puff inhalation Q4H PRN PRN (Reason: Wheezing) Qty: 1 0RF amlodipine 10 MG tablet 10 mg PO DAILY Qty: 30 0RF ondansetron 4 mg tablet,disintegrating 4 mg PO Q8H PRN (Reason: nausea and vomiting) Qty: 10 0RF Primary Care Provider: Keren Kwon NP Referrals: Alejandro Leon DO [Med Staff - Active Staff] - (call for follow up appt regarding lung nodule seen on chest XRay) Pema Yang MD [Non-Staff] - 3-5 Days if not improving Disposition Disposition: Home, Self Care Discharge Date/Time: 01/02/23 11:15
--- NOTE | 2023-01-02 09:07 | RAD_ITS ---
STUDY: X-RAY CHEST REASON FOR EXAM: Male, 57 years old. Chest pain, sob TECHNIQUE: PA and lateral views of the chest. COMPARISON: Comparison is made with prior study dated December 16, 2019. FINDINGS: EKG electrodes are seen. Questionable 8.9 mm x 7.2 mm spiculated nodule in the left perihilar region. There is no demonstrated pleural abnormality. Normal size heart. Normal mediastinum and bud. Normal visualized pulmonary arteries. Normal visualized aortic arch and descending thoracic aorta. Normal visualized thoracic spine. Normal visualized ribs, clavicles, and shoulders. There is no demonstrated abnormality of the visualized soft tissue structures of the upper abdomen. RAD/Chest PA and Lateral IMPRESSION: Questionable 8.9 mm x 7.2 mm spiculated nodule in the left perihilar region. Correlation with the CT of the chest is recommended. Electronically Signed: Jose F Restrepo MD at 9:50 EDT ,
[2023-01-02 09:08] LABS: Absolute Lymphocyte Count 0.96 X10^3/uL (0.83-4.51); Absolute Neutrophil Count 2.9 X10^3/uL (2.0-7.7); Basophil# 0.03 X10^3/uL; Basophil% 0.7 % (0-1); Eosinophil# 0.04 X10^3/uL; Eosinophils% 0.9 % (0-5); Hematocrit 45.4 % (40-54); Hemoglobin 15.7 g/dL (13.0-16.5); Lymphocyte # 0.96 X10^3/ul (0.83-4.51); Lymphocyte % 22.7 % (19-41); Mean Corp Hgb Conc 34.6 g/dL (32-36); Mean Corpuscular Hgb 32.4 pg (27.0-32.0); Mean Corpuscular Volume 93.6 fL (80-94); Mean Platelet Vol. 9.3 fl (6.2-12.0); Monocyte# 0.31 X10^3/uL; Monocyte% 7.3 % (0-10); NRBC Flagged by Analyzer 0 % (0-5); Neutrophil # 2.88 X10^3/uL (2.7-7.7); Neutrophil % 68.4 % (47-70); Platelet Count 117 K/mm3 (150-450); RBC Distribution Width CV 12.5 % (11.6-14.6); RBC Distribution Width SD 42.9 fl (35.1-43.9); Red Blood Count 4.85 M/mm3 (4.6-6.2); White Blood Count 4.2 K/mm3 (4.4-11.0)
[2023-01-02] MEDS: Ondansetron 4 MG/2 ML Vial IV (09:10)
[2023-01-02] MEDS: 0.9% Normal Saline 1,000 ML 1000 ML IV (09:10)
[2023-01-02 09:36] LABS: Anion Gap 8 (5-15); BUN 11 mg/dL (7-18); BUN/Creat Ratio 7.8 RATIO (10-20); Calcium,Total 8.9 mg/dL (8.5-10.1); Chloride 100 mmol/L (98-107); Creatinine, Serum 1.41 mg/dL (0.70-1.30); EST Glomerular Filtration Rate 55 mL/min (>60); Est Glom Filt Rate - Afr Amer 67 mL/min (>60); Glucose 110 mg/dL (74-106); Potassium 4.6 mmol/L (3.5-5.1); Sodium Level 136 mmol/L (136-145); Troponin-I HS 9 pg/mL (3.0-78.0)
[2023-01-02 11:14] VITALS: BP 131/86; PULSE 82; RESP 16; O2SAT 97
== END 2023-01-02 11:15 | disposition home or self-care (01) ==
PROVIDERS: Emergency Provider Emergency Medicine; PCP Registered Nurse; Visit Provider Emergency Medicine
DX: R11.2 Nausea with vomiting, unspecified (principal); R19.7 Diarrhea, unspecified; R07.89 Other chest pain; R91.1 Solitary pulmonary nodule; I25.2 Old myocardial infarction; Z95.5 Presence of coronary angioplasty implant and graft; Z87.891 Personal history of nicotine dependence
CPT/HCPCS: 71046; 74176; 80048; 84484; 85025; 93005; 96361; 96374; 99282; J7030; A4216; J2405

== ENCOUNTER → 2023-01-17 | Outpatient (CLI) | payer MEDICAID, SELFPAY ==
[2017-11-21 12:50] VITALS: BMI 32.3
--- NOTE | 2023-01-17 14:51 | CT_ITS ---
STUDY: CT CHEST WITHOUT CONTRAST REASON FOR EXAM: Male, 57 years old. Lung Nodule RADIATION DOSAGE (If Supplied By Facility): CTDIvol = ( 9.94 ) mGy, DLP = ( 370.47 ) mGycm TECHNIQUE: Transaxial imaging was performed without the administration of intravenous contrast material. Multiplanar coronal and sagittal images were reformatted. Individualized dose optimization techniques were used for this CT. COMPARISON: Comparison is made with prior chest radiograph dated January 02, 2023. FINDINGS: CHEST Mild degree of emphysematous changes. Linear scarring at the right lung apex. No pulmonary nodule is seen. The finding on the chest radiograph most likely represents superimposition of tissue. There is no demonstrated pleural abnormality. There are calcifications of the coronary arteries. There are multiple small lymph nodes within the mediastinum, which are normal in size and morphology most compatible with reactive lymph hyperplasia. Normal hilar regions. Normal unenhanced pulmonary arteries. There is atherosclerotic calcification of the aortic arch. There are multi-level degenerative changes of the thoracic spine. There is no demonstrated abnormality of the visualized upper abdomen. CT/Chest without Contrast IMPRESSION: Mild degree of changes no nodule is seen. Electronically Signed: Jose F Restrepo MD at 15:24 EDT ,
== END | disposition home or self-care (01) ==
PROVIDERS: PCP Registered Nurse; Referring Provider Internal Medicine Critical Care Medicine; Visit Provider Internal Medicine Critical Care Medicine
DX: R91.1 Solitary pulmonary nodule (principal)
CPT/HCPCS: 71250

== ENCOUNTER → 2023-02-11 | Outpatient (CLI) | payer MEDICAID, SELFPAY ==
[2017-11-21 12:50] VITALS: BMI 32.3
--- NOTE | 2023-02-11 11:28 | STRESSREP_ITS ---
Stress Test Report Date: 02/11/2023 Procedure: Exercise tolerance test/imaging study Indications: Chest pain Consent: Per the patient Procedure: The patient exercised on a Will protocol for 6 achieving a peak heart rate of 164 bpm (100% predicted maximal heart rate) with a peak blood pressure 220/112 mmHg and a peak MET capacity of 7.0 METs. The baseline ECG demonstrated normal sinus rhythm. The peak exercise ECG demonstrated no ischemic changes. There were no cardiac dysrhythmias pretest, during exercise, or recovery. The functional capacity was considered average. There was no complaint of chest discomfort during exercise or recovery. The examination was discontinued secondary to target heart rate being achieved. The patient was injected with 14.1 mCi of technetium 99m Cardiolite and subsequently rest SPECT Cardiolite nuclear imaging was obtained in the horizontal long, vertical long, and short axis views. Post-exercise, the patient was injected with 44.7 mCi of technetium 99m Cardiolite and subsequently stress SPECT Cardiolite nuclear imaging was obtained in the horizontal long, vertical long, and short axis views. A gated Cardiolite study at peak stress was obtained. Rest and stress SPECT Cardiolite nuclear imaging status post realignment, normalization, and attenuation correction, demonstrates moderate-sized fixed perfusion defect of the basal lateral wall. The gated Cardiolite study demonstrates myocardial thickening and inward wall motion. The reported LVEF is 54%. Impression: 1. Technically adequate (percent predicted maximal heart rate greater than 85%) exercise tolerance test 2. Peak exercise ECG with no ischemic changes 3. There were no cardiac dysrhythmias pretest, during exercise, or recovery 4. Rest and stress SPECT Cardiolite nuclear imaging demonstrate a fixed perfusion defect of the basal lateral wall suggestive of previous nontransmural infarct. 5. The gated Cardiolite study reports an LVEF of 54%. 6. Hypertensive response to exercise. This note was generated with [employer] software. It may contain incorrect words, spelling, and punctuation that were not noted in checking the note before signing.
== END | disposition home or self-care (01) ==
LOC: CVS 06:25
PROVIDERS: PCP Registered Nurse; Referring Provider Nurse Practitioner Gerontology; Visit Provider Nurse Practitioner Gerontology
DX: R07.9 Chest pain, unspecified (principal); Z95.5 Presence of coronary angioplasty implant and graft
CPT/HCPCS: 78452; 93017; A9500; A4216

== ENCOUNTER → 2023-04-01 | Outpatient (CLI) | payer MEDICAID, SELFPAY ==
[2017-11-21 12:50] VITALS: BMI 32.3
[2023-04-01 16:08] LABS: Absolute Lymphocyte Count 1.28 X10^3/uL (0.83-4.51); Absolute Neutrophil Count 4.5 X10^3/uL (2.0-7.7); Basophil# 0.01 X10^3/uL; Basophil% 0.2 % (0-1); Eosinophil# 0.05 X10^3/uL; Eosinophils% 0.8 % (0-5); Hematocrit 40.5 % (40-54); Hemoglobin 13.3 g/dL (13.0-16.5); Lymphocyte # 1.28 X10^3/ul (0.83-4.51); Lymphocyte % 20.3 % (19-41); Mean Corp Hgb Conc 32.8 g/dL (32-36); Mean Corpuscular Hgb 32.4 pg (27.0-32.0); Mean Corpuscular Volume 98.8 fL (80-94); Mean Platelet Vol. 9.5 fl (6.2-12.0); Monocyte# 0.45 X10^3/uL; Monocyte% 7.1 % (0-10); NRBC Flagged by Analyzer 0 % (0-5); Neutrophil # 4.51 X10^3/uL (2.7-7.7); Neutrophil % 71.3 % (47-70); Platelet Count 118 K/mm3 (150-450); RBC Distribution Width CV 12.8 % (11.6-14.6); RBC Distribution Width SD 46.5 fl (35.1-43.9); White Blood Count 6.3 K/mm3 (4.4-11.0)
[2023-04-01 17:14] LABS: AST(SGOT) 52 U/L (15-37); Alanine Aminotransfer ALT/SGPT 54 U/L (16-61); Albumin, Serum 3.8 g/dL (3.2-5.0); Alkaline Phosphatase 146 U/L (45-117); Anion Gap 9 (5-15); BUN 11 mg/dL (7-18); BUN/Creat Ratio 8.3 RATIO (10-20); Calcium,Total 9.1 mg/dL (8.5-10.1); Chloride 100 mmol/L (98-107); Creatinine, Serum 1.32 mg/dL (0.70-1.30); EST Glomerular Filtration Rate 60 mL/min (>60); Est Glom Filt Rate - Afr Amer 72 mL/min (>60); Globulin 3.7 g/dL (2.2-4.2); Glucose 93 mg/dL (74-106); Potassium 3.5 mmol/L (3.5-5.1); Protein, Total 7.5 g/dL (6.4-8.2); Sodium Level 136 mmol/L (136-145); Thyroid Stim Hormone (TSH) 1.08 uIU/mL (0.358-3.74)
--- NOTE | 2023-04-02 16:24 | PFTCOMP_ITS ---
COMPLETE PULMONARY FUNCTION TEST INTERPRETATION Brief HPI: Patient is a 57-year-old male, currently under the care of Dr. Leon, who presents to [facility] for complete pulmonary function tests secondary to diagnosis of COPD. Respiratory therapist reports good effort and reproducible results. Interpretation: Forced expiration spirometry shows a mild large airways obstructive ventilatory defect with an FEV1 of 93% predicted. There is a significant bronchodilator response in FEV1 by strict ATS criteria. Spirograms are of good quality and plateau slowly, indicating slowly emptying areas of the lungs. The respiratory flow volume loop shows decreased expiratory flow rates at all lung volumes consistent with airway obstruction. Lung volumes by body plethysmography show a normal total lung capacity at 6.19 L, 87% predicted. All other lung volumes are within normal limits. Diffusion capacity by carbon monoxide is normal at 93% predicted. The airway resistance is slightly elevated. No previous pulmonary function tests were available for review. Impression: Fully reversible mild large airways obstructive ventilatory defect with preserved lung volumes and diffusion capacity
== END | disposition home or self-care (01) ==
PROVIDERS: Internal Medicine Cardiovascular Disease; PCP Registered Nurse; Referring Provider Internal Medicine Critical Care Medicine; Visit Provider Internal Medicine Critical Care Medicine
DX: J44.9 Chronic obstructive pulmonary disease, unspecified (principal); I77.9 Disorder of arteries and arterioles, unspecified; N18.9 Chronic kidney disease, unspecified; I25.2 Old myocardial infarction; I25.10 Atherosclerotic heart disease of native coronary artery without angina pectoris
CPT/HCPCS: 36415; 80053; 84443; 85025; 94060; 94726; 94729

== ENCOUNTER 2023-05-13 10:51 | Inpatient (IN) | payer MEDICAID, SELFPAY ==
[2017-11-21 12:50] VITALS: BMI 32.3
[2023-05-13] VITALS (10 sets, daily range): BP systolic 137–158; BP diastolic 86–120; PULSE 97–139; RESP 12–20; TEMP 36–37.3; O2SAT 94–99; BMI 28.3; BMI 27.8
--- NOTE | 2023-05-13 11:18 | EX.ED.DYSGE1 ---
HPI <XUAN Nicole - Last Filed: 05/13/23 16:30> History of Present Illness Chief Complaint: Nausea/Vomiting/Diarrhea Narrative Narrative: Patient is a 57-year-old male with a history of COPD, hypertension, hyperlipidemia, alcohol abuse who presents to the emergency department with 4 days of nausea, vomiting, diarrhea. Patient states he feels dehydrated, he has the shakes. I did ask him if he shakes if he does not drink, he denies. Patient his last drink was Saturday. He states he has pain throughout his entire abdomen especially his lower back. He states that he is dehydrated, he is having muscle cramps and is here for evaluation. PFSH <XUAN Nicole - Last Filed: 05/13/23 16:30> PFSH Medical History Alcohol abuse Alcohol intoxication Atherosclerosis of coronary artery of [place] heart without angina pectoris Chest pain Chest pain Community acquired pneumonia COPD (chronic obstructive pulmonary disease) COPD exacerbation Depression WILSON (dyspnea on exertion) Fatigue Heart failure Hyperlipidemia Hypertension Hypoxia Lung nodule NSTEMI (non-ST elevated myocardial infarction) Obesity (BMI 30.0-34.9) Suicidal ideation Thrombocytopenia Tobacco use Home Medications omeprazole 20 mg capsule,delayed release 20 mg PO DAILY heart burn 06/17/14 [History Last Taken 01/12/19 10:30 20 MG] aspirin 81 mg tablet,delayed release 81 mg PO DAILY heart 06/17/16 [History Last Taken 11/21/17 04:30] cyclobenzaprine 10 mg tablet 10 mg PO PRN PRN Pain 06/17/16 [History Last Taken 11/21/17 02:00] L.acidoph, paracasei,B. lactis 10 billion cell capsule 1 ea PO DAILY supplement 11/21/17 [History Last Taken 11/20/17 22:00] atorvastatin 80 mg tablet 80 mg PO QHS #30 tabs 12/20/17 [Rx Last Taken Unknown] albuterol sulfate 90 mcg/actuation aerosol inhaler 1 - 2 puff inhalation Q4H PRN PRN Wheezing ##1 05/28/19 [Rx Last Taken Unknown] buspirone 10 mg tablet 10 mg PO TID depression 05/28/19 [History Last Taken Unknown] sertraline 100 mg tablet 50 mg PO DAILY depression 05/28/19 [History Last Taken Unknown] amlodipine 10 mg tablet 10 mg PO DAILY #30 tabs 06/04/19 [Rx Last Taken Unknown] lisinopril 10 mg tablet 10 mg PO DAILY 12/31/19 [History Last Taken Unknown] ondansetron 4 mg disintegrating tablet 4 mg PO Q8H PRN nausea and vomiting #10 tabs 05/12/21 [Rx Last Taken Unknown] carvedilol 12.5 mg tablet 6.25 mg PO BID 12/24/22 [History Last Taken Unknown] nitroglycerin 0.4 mg sublingual tablet 0.4 mg sublingual Q5M PRN Chest Pain #25 tabs 12/24/22 [Rx Last Taken Unknown] trazodone 50 mg tablet 50 mg PO QHS 12/24/22 [History Last Taken Unknown] dicyclomine 10 mg capsule 20 mg (2 x 10 mg) PO Q6H PRN abdominal pain #20 CAPSULES 01/02/23 [Rx Last Taken Unknown] ezetimibe 10 mg tablet 10 mg PO DAILY 04/01/23 [History Last Taken Unknown] magnesium oxide 400 mg (241.3 mg magnesium) tablet 400 mg PO BID 04/01/23 [History Last Taken Unknown] Allergy/AdvReac Type Severity Reaction Status Date / Time No Known Allergies Allergy Verified 05/13/23 10:52 Family History Mother CAD (coronary artery disease) Father CAD (coronary artery disease) Brother CAD (coronary artery disease) Myocardial infarction Sister CAD (coronary artery disease) Surgical History History of tonsillectomy Hx of eye surgery Stented coronary artery Social History Smoking Status: Former smoker alcohol intake: former year quit: 2019 substance use type: former substance user Date of last use: 8 weeks ago caffeine: Yes Type: coffee Number of servings: 2 what type of physical activity do you participate in: none ROS <XUAN Nicole - Last Filed: 05/13/23 16:30> ROS ED ROS Narrative Constitutional: Negative for fever, weight loss, weakness. Positive for chills Eyes: Negative for vision loss, vision change, double vision ENT: Negative for any sore throat, ear pain, congestion Cardiovascular: Negative for any chest pain, tightness, palpitations Respiratory: Negative for any cough, sputum production, hemoptysis, dyspnea, dyspnea on exertion, orthopnea Gastrointestinal: Negative for any constipation, blood in stool, blood in vomit. Positive for abdominal pain, nausea and vomiting : Negative for any urinary frequency, dysuria, retention, blood in urine Muscle skeletal: Negative for any muscle joint pain, stiffness, arthralgias, neck pain, back pain. Positive for myalgias, muscle cramps Neurological: Negative for any headache, syncope, numbness or tingling, dizziness Skin: Negative for any rashes, lumps, itching, abrasions, lacerations Psychiatric: Negative for any depression, anxiety, stress, suicidal ideation, homicidal ideation Hematologic: Negative for any easy bruising, excessive bruising, easy bleeding Allergies: Negative for any eczema, hives, rash EXAM <XUAN Nicole - Last Filed: 05/13/23 16:30> Physical Exam Narrative Exam Narrative: Vital signs reviewed. Patient does appear to be in mild distress. Patient does have slight shaking, HEET: Head normocephalic atraumatic, TMs clear bilaterally. Posterior pharynx is clear, dry mucous membranes. Nares clear bilaterally. Neck: Supple with no lymphadenopathy or tenderness. No signs of meningismus, negative jolt sign. Cardiac: Tachycardic rate no murmurs gallops or rubs, equal peripheral pulses bilaterally. Respiratory: Lungs clear to auscultation bilaterally. No chest tenderness. Abdomen: Soft, nondistended. No abdominal bruit or pulsatile masses. No hepatosplenomegaly. Patient has tenderness throughout abdominal exam, some areas there seems to be an extreme response to slight palpation. Active bowel sounds in all quadrants Extremities: No peripheral edema, no signs of gross trauma or deformity. Active full range of motion of all extremities. Neuro: Cranial nerves II through XII intact, no focal neurological deficits. Skin: Clean dry and intact with no rash, purpura, petechiae, vesicles or pustules. Backs/flank: No CVA tenderness, no midline spinal tenderness, no deformity. Psych: Normal mood and affect. No SI, HI or acute psychosis. Const Vital Signs: 05/13/23 10:52 05/13/23 11:45 05/13/23 12:44 Temperature 96.8 F L 97.9 F Temperature Source Temporal Oral Pulse Rate 139 H 121 H 112 H Respiratory Rate 20 H 17 14 Blood Pressure 148/120 H 147/119 H 137/91 H Blood Pressure Mean 129 128 106 Pulse Ox 94 99 97 Oxygen Delivery Method Room Air Room Air Room Air 05/13/23 14:32 05/13/23 16:07 Temperature 98.7 F Temperature Source Oral Pulse Rate 105 H 105 H Respiratory Rate 18 18 Blood Pressure 146/86 H 144/94 H Blood Pressure Mean 106 110 Pulse Ox 96 95 Oxygen Delivery Method Room Air Room Air <Dr. Maggy Tucker DO - Last Filed: 05/13/23 17:15> Physical Exam Const Vital Signs: 05/13/23 10:52 05/13/23 11:45 05/13/23 12:44 Temperature 96.8 F L 97.9 F Temperature Source Temporal Oral Pulse Rate 139 H 121 H 112 H Respiratory Rate 20 H 17 14 Blood Pressure 148/120 H 147/119 H 137/91 H Blood Pressure Mean 129 128 106 Pulse Ox 94 99 97 Oxygen Delivery Method Room Air Room Air Room Air 05/13/23 14:32 05/13/23 16:07 Temperature 98.7 F Temperature Source Oral Pulse Rate 105 H 105 H Respiratory Rate 18 18 Blood Pressure 146/86 H 144/94 H Blood Pressure Mean 106 110 Pulse Ox 96 95 Oxygen Delivery Method Room Air Room Air MDM <XUAN Nicole - Last Filed: 05/13/23 16:30> [facility] Lab Data Labs: Laboratory Results - last 24 hr 05/13/23 05/13/23 05/13/23 11:35 13:00 15:50 WBC 6.4 RBC 4.93 Hgb 16.1 Hct 47.8 MCV 97.0 H MCH 32.7 H MCHC 33.7 RDW Std Deviation 44.6 H RDW Coeff of [place] 12.4 Plt Count 111 L MPV 9.9 Immature Gran % (Auto) 0.300 Neut % (Auto) 72.9 H Lymph % (Auto) 18.4 L [place] % (Auto) 7.6 Eos % (Auto) 0.3 Baso % (Auto) 0.5 Absolute Neuts (auto) 4.7 Absolute Lymphs (auto) 1.18 Nucleated RBC % 0 Sodium 138 Potassium 4.2 Chloride 101 Carbon Dioxide 23.0 Anion Gap 14 BUN 11 Creatinine 1.89 H Estim Creat Clear Calc 45.06 Est GFR (MDRD) Af Amer 48 L Est GFR (MDRD) Non-Af 39 L BUN/Creatinine Ratio 5.8 L Glucose 129 H Lactic Acid 3.5 H* 0.4 Calcium 9.2 Total Bilirubin 4.20 H AST 255 H ALT 197 H Alkaline Phosphatase 207 H Total Protein 8.3 H Albumin 4.1 Globulin 4.2 Albumin/Globulin Ratio 1.0 Lipase 56 Urine Color SEE COMMENT BELOW Urine Clarity Clear Urine pH 5.0 Ur Specific [place] 1.020 Urine Protein 100 H Urine Glucose (UA) Normal Urine Ketones 15 H Urine Occult Blood 10 H Urine Nitrite Negative Urine Bilirubin 3 H Urine Urobilinogen 8 H Ur Leukocyte Esterase 25 H Urine RBC 0 SEEN Urine WBC 0-5 SEEN Ur Squamous Epith Cells 0 SEEN Urine Bacteria 0 SEEN Hyaline Casts >100 SEEN Urine Mucus 0 SEEN Ethyl Alcohol < 3.0 Radiography Diagnostic Testing: Clinical Impression(s) from Imaging Studies Abdomen/Pelvis CT 05/13/23 12:28 IMPRESSION: Diffuse fatty infiltration of the liver. Hepatomegaly. Sludge is seen within the gallbladder lumen. Calcifications within the pancreas suggestive of chronic pancreatitis. Sigmoid diverticulosis. Electronically Signed: Jose F Restrepo MD at 13:51 EDT , Gallbladder Ultrasound 05/13/23 13:57 IMPRESSION: Hepatomegaly and fatty infiltration of the liver. Small gallbladder polyp. Electronically Signed: Jose F Restrepo MD at 15:51 EDT , Treatment and Re-Evaluation :: Patient is in no obvious respiratory distress, patient does have some shaking full body, this could be secondary to alcohol withdrawal. Patient did have some pain in his abdomen, does not look dry, dehydrated on initial evaluation. Patient is will receive multiple laboratory values including CBC, CMP, lipase, lactic, alcohol, patient will receive CT scan of the abdomen pelvis. Differential diagnosis includes alcohol withdrawal, gastroenteritis, pancreatitis, diverticulitis. Patient received 2 L of normal saline, IV Zofran, Ativan, fentanyl. Patient's laboratory values show a normal CBC, patient's chemistries showed some dehydration with acute kidney insufficiency with a creatinine of 1.89, on April 01, 2023, the creatinine is 1.32, this is significant drop. Patient's lactic acid was 3.5, patient's alcohol was negative. Patient does have some transaminitis with elevated bilirubin with a total bilirubin of 4.20, AST of 255, ALT of 197 with an alkaline phosphatase of 207. Patient did receive a CT scan of the abdomen pelvis, this was without contrast secondary to the renal sufficiency. This showed diffuse fatty infiltration of liver. Hepatomegaly a, sludge is seen within the gallbladder lumen. Calcifications within the pancreas which is of chronic pancreatitis. Patient then received a right upper quadrant ultrasound. This showed hepatomegaly, small gallbladder polyp. At this time, patient will need to be admitted to the hospital for dehydration, alcohol withdrawal. I spoke with hospitalist, patient will be admitted for full MedSurg. <Dr. Maggy Tucker, DO - Last Filed: 05/13/23 17:15> [facility] Lab Data Labs: Laboratory Results - last 24 hr 05/13/23 05/13/23 05/13/23 11:35 13:00 15:50 WBC 6.4 RBC 4.93 Hgb 16.1 Hct 47.8 MCV 97.0 H MCH 32.7 H MCHC 33.7 RDW Std Deviation 44.6 H RDW Coeff of [place] 12.4 Plt Count 111 L MPV 9.9 Immature Gran % (Auto) 0.300 Neut % (Auto) 72.9 H Lymph % (Auto) 18.4 L [place] % (Auto) 7.6 Eos % (Auto) 0.3 Baso % (Auto) 0.5 Absolute Neuts (auto) 4.7 Absolute Lymphs (auto) 1.18 Nucleated RBC % 0 Sodium 138 Potassium 4.2 Chloride 101 Carbon Dioxide 23.0 Anion Gap 14 BUN 11 Creatinine 1.89 H Estim Creat Clear Calc 45.06 Est GFR (MDRD) Af Amer 48 L Est GFR (MDRD) Non-Af 39 L BUN/Creatinine Ratio 5.8 L Glucose 129 H Lactic Acid 3.5 H* 0.4 Calcium 9.2 Total Bilirubin 4.20 H AST 255 H ALT 197 H Alkaline Phosphatase 207 H Total Protein 8.3 H Albumin 4.1 Globulin 4.2 Albumin/Globulin Ratio 1.0 Lipase 56 Urine Color SEE COMMENT BELOW Urine Clarity Clear Urine pH 5.0 Ur Specific [place] 1.020 Urine Protein 100 H Urine Glucose (UA) Normal Urine Ketones 15 H Urine Occult Blood 10 H Urine Nitrite Negative Urine Bilirubin 3 H Urine Urobilinogen 8 H Ur Leukocyte Esterase 25 H Urine RBC 0 SEEN Urine WBC 0-5 SEEN Ur Squamous Epith Cells 0 SEEN Urine Bacteria 0 SEEN Hyaline Casts >100 SEEN Urine Mucus 0 SEEN Ethyl Alcohol < 3.0 Radiography Diagnostic Testing: Clinical Impression(s) from Imaging Studies Abdomen/Pelvis CT 05/13/23 12:28 IMPRESSION: Diffuse fatty infiltration of the liver. Hepatomegaly. Sludge is seen within the gallbladder lumen. Calcifications within the pancreas suggestive of chronic pancreatitis. Sigmoid diverticulosis. Electronically Signed: Jose F Restrepo MD at 13:51 EDT , Gallbladder Ultrasound 05/13/23 13:57 IMPRESSION: Hepatomegaly and fatty infiltration of the liver. Small gallbladder polyp. Electronically Signed: Jose F Restrepo MD at 15:51 EDT , Treatment and Re-Evaluation :: Patient is in no obvious respiratory distress, patient does have some shaking full body, this could be secondary to alcohol withdrawal. Patient did have some pain in his abdomen, does not look dry, dehydrated on initial evaluation. Patient is will receive multiple laboratory values including CBC, CMP, lipase, lactic, alcohol, patient will receive CT scan of the abdomen pelvis. Differential diagnosis includes alcohol withdrawal, gastroenteritis, pancreatitis, diverticulitis. Patient received 2 L of normal saline, IV Zofran, Ativan, fentanyl. Patient's laboratory values show a normal CBC, patient's chemistries showed some dehydration with acute kidney insufficiency with a creatinine of 1.89, on April 01, 2023, the creatinine is 1.32, this is significant drop. Patient's lactic acid was 3.5, patient's alcohol was negative. Patient does have some transaminitis with elevated bilirubin with a total bilirubin of 4.20, AST of 255, ALT of 197 with an alkaline phosphatase of 207. Patient did receive a CT scan of the abdomen pelvis, this was without contrast secondary to the renal sufficiency. This showed diffuse fatty infiltration of liver. Hepatomegaly a, sludge is seen within the gallbladder lumen. Calcifications within the pancreas which is of chronic pancreatitis. Patient then received a right upper quadrant ultrasound. This showed hepatomegaly, small gallbladder polyp. At this time, patient will need to be admitted to the hospital for dehydration, alcohol withdrawal. I spoke with hospitalist, patient will be admitted for full MedSurg. I have personally performed a face to face assessment of the patient and have reviewed the MARY Note. I performed a substantive portion of the visit including all aspects of the following. My short findings include: History is patient is a 57-year-old male with history of coronary artery disease, heart failure, alcoholism, alcoholic hepatitis and obesity presenting with worsening nausea, vomiting, lower abdominal pain and tremor. On arrival patient is mildly hypertensive, tachycardic and tremulous. Clinically appears dehydrated however and also concerned about acute alcohol withdraw since he has not been able to drink for couple days due to his GI symptoms. Differential for the GI symptoms include but are not limited to pancreatitis, diverticulitis and bowel obstruction. Patient does have improvement in symptoms with IV fluids, fentanyl and Ativan. He is mentating appropriately. He is amenable to considering inpatient detox as well at this time. He does have an LUZ MARIA and worsening transaminitis. I suspect this worsening transaminitis and bilirubin is actually more associated with his vomiting and dehydration. He does not have findings distant with acute cholecystitis or choledocholithiasis on his CT/ultrasound. CT also does not show any findings consistent with acute diverticulitis or other acute abnormality. Patient will be admitted for further hydration and treatment of alcohol withdrawal symptoms. He is agreeable this plan of care. Case discussed with Dr. Bennett for admission. Other additions or changes: [None] Discharge Plan Dx/Rx/DC Orders Clinical Impression: Acute dehydration, Alcohol withdrawal, Abdominal pain, Acidosis, lactic Disposition Disposition: Acute Care Hospital [facility] Discharge Date/Time: 05/13/23 17:11
[2023-05-13] MEDS: LORazepam 2 MG/ML Syringe 1 MG IV ×2 (11:42→14:11)
[2023-05-13] MEDS: Ondansetron 4 MG/2 ML Vial IV (11:42)
[2023-05-13] MEDS: 0.9% Normal Saline (1000mL) 1,000 ML 1000 ML IV (11:42)
[2023-05-13] MEDS: fentaNYL 100 MCG/2 ML Ampul 50 MCG IV (11:43)
[2023-05-13 11:50] LABS: Absolute Lymphocyte Count 1.18 X10^3/uL (0.83-4.51); Absolute Neutrophil Count 4.7 X10^3/uL (2.0-7.7); Basophil# 0.03 X10^3/uL; Basophil% 0.5 % (0-1); Eosinophil# 0.02 X10^3/uL; Eosinophils% 0.3 % (0-5); Hematocrit 47.8 % (40-54); Hemoglobin 16.1 g/dL (13.0-16.5); Lymphocyte # 1.18 X10^3/ul (0.83-4.51); Lymphocyte % 18.4 % (19-41); Mean Corp Hgb Conc 33.7 g/dL (32-36); Mean Corpuscular Hgb 32.7 pg (27.0-32.0); Mean Platelet Vol. 9.9 fl (6.2-12.0); Monocyte# 0.49 X10^3/uL; Monocyte% 7.6 % (0-10); NRBC Flagged by Analyzer 0 % (0-5); Neutrophil # 4.69 X10^3/uL (2.7-7.7); Neutrophil % 72.9 % (47-70); Platelet Count 111 K/mm3 (150-450); RBC Distribution Width CV 12.4 % (11.6-14.6); RBC Distribution Width SD 44.6 fl (35.1-43.9); Red Blood Count 4.93 M/mm3 (4.6-6.2); White Blood Count 6.4 K/mm3 (4.4-11.0)
[2023-05-13 12:11] LABS: Alcohol, Blood (Medical)-Serum < 3.0 mg/dL
[2023-05-13 12:17] LABS: AST(SGOT) 255 U/L (15-37); Alanine Aminotransfer ALT/SGPT 197 U/L (16-61); Albumin, Serum 4.1 g/dL (3.2-5.0); Alkaline Phosphatase 207 U/L (45-117); Anion Gap 14 (5-15); BUN 11 mg/dL (7-18); BUN/Creat Ratio 5.8 RATIO (10-20); Calcium,Total 9.2 mg/dL (8.5-10.1); Chloride 101 mmol/L (98-107); Creatinine, Serum 1.89 mg/dL (0.70-1.30); EST Glomerular Filtration Rate 39 mL/min (>60); Est Glom Filt Rate - Afr Amer 48 mL/min (>60); Estimated Creatinine Clearance 45.06 ml/min; Globulin 4.2 g/dL (2.2-4.2); Glucose 129 mg/dL (74-106); Lipase 56 U/L (13-75); Potassium 4.2 mmol/L (3.5-5.1); Protein, Total 8.3 g/dL (6.4-8.2); Sodium Level 138 mmol/L (136-145)
[2023-05-13 12:22] LABS: Lactic Acid 3.5 mmol/L (0.4-1.9)
--- NOTE | 2023-05-13 12:28 | CT_ITS ---
STUDY: CT ABDOMEN AND PELVIS WITHOUT CONTRAST REASON FOR EXAM: Male, 57 years old. 3 day history of abdominal pain with nausea and vomiting. RADIATION DOSAGE (If Supplied By Facility): CTDIvol = ( 13.31 ) mGy, DLP = ( 668.17 ) mGycm TECHNIQUE: Transaxial images were obtained from the dome of the diaphragm to the symphysis pubis without oral contrast, and without intravenous contrast. Sagittal and coronal images were reconstructed. Individualized dose optimization techniques were used for this CT. COMPARISON: Comparison is made with prior study January 02, 2023. FINDINGS: The visualized lung bases are unremarkable. The visualized portions of the heart are within normal limits. There is decreased attenuation of the liver consistent with steatosis. Borderline hepatomegaly. Sludge is seen within the gallbladder lumen. Normal spleen. There are pancreatic calcifications in the distribution of the ducts consistent with chronic pancreatitis. Normal bilateral adrenal glands. Normal right kidney. Normal left kidney. Normal visualized stomach. Normal small intestine. There are multiple colonic diverticula consistent with diverticulosis. The appendix is visualized and appears normal. There is scattered atherosclerotic calcification of the abdominal aorta, without a demonstrated aneurysm. Normal inferior vena cava. Normal retroperitoneum. Diffuse bladder wall thickening. There is a right-sided inguinal hernia containing adipose tissue. There are mild degenerative changes of the visualized lumbar spine. CT/Abdomen/Pelvis without Cont IMPRESSION: Diffuse fatty infiltration of the liver. Hepatomegaly. Sludge is seen within the gallbladder lumen. Calcifications within the pancreas suggestive of chronic pancreatitis. Sigmoid diverticulosis. Electronically Signed: Jose F Restrepo MD at 13:51 EDT ,
[2023-05-13] MEDS: 0.9% Normal Saline (1000mL) 1,000 ML 999 ML IV (12:43)
[2023-05-13 13:07] LABS: Bacteria 0 SEEN /hpf (None Seen); Mucous, Urine 0 SEEN /hpf (<or=2+); Red Blood Cells-Urine 0 SEEN /hpf (0-5); Squamous Epithelial Cells - UA 0 SEEN /hpf (0-5)
[2023-05-13 13:16] LABS: Glucose, Dipstick Normal (Normal); Ketone-Dipstick 15 mg/dl (Negative); Leukocyte Esterase-Dipstick 25 /ul (Negative); Nitrite-Dipstick Negative (Negative); Occult Blood-Urine 10 /ul (Negative); Protein-Dipstick 100 mg/dl (Negative); Urine Clarity Clear (Clear); Urine Urobilinogen 8 mg/dl (Normal)
[2023-05-13 13:18] LABS: Color, Urine SEE COMMENT BELOW (Yellow); Urine Bilirubin Dipstick 3 mg/dL (Negative)
[2023-05-13 13:22] LABS: Hyaline Cast >100 SEEN /lpf (0-5)
[2023-05-13 13:23] LABS: White Blood Cells 0-5 SEEN /hpf (0-5)
--- NOTE | 2023-05-13 13:57 | US_ITS ---
STUDY: ABDOMINAL ULTRASOUND - RIGHT UPPER QUADRANT REASON FOR VISIT: Male, 57 years old vomiting, transaminitis TECHNIQUE: Ultrasound evaluation of the right upper quadrant was performed with real-time and static amato-scale imaging. TECHNICAL QUALITY: Adequate. COMPARISON: None. FINDINGS: Liver: The liver is enlarged and measures 21.8 cm. There is increased echogenicity consistent with fatty infiltration. The bile ducts are within normal limits. There is hepatic color flow. The direction of portal flow is hepatopetal. There is no demonstrated mass lesion. Gallbladder: Normal distended gallbladder. The gallbladder wall measures 1 mm. There is a negative sonographic Hernandez''s sign. There is no pericholecystic fluid. There are no gallstones. Findings suggestive of a 5 mm x 6 mm x 3 mm gallbladder polyp. Common Bile Duct (C.B.D.): The common bile duct measures 3.8 mm. Pancreas: Normal size of the head, body and tail of the pancreas. There is normal echogenicity of the pancreas. There is no demonstrated pancreatic mass or cyst. Right Kidney: Normal size of the right kidney. The right kidney measures 10.9 cm x 4.3 cm x 5.3 cm. Normal renal cortex. The right cortex measures 1.2 cm. There is no demonstrated renal mass or cyst. There is no right hydronephrosis. US/Gallbladder IMPRESSION: Hepatomegaly and fatty infiltration of the liver. Small gallbladder polyp. Electronically Signed: Jose F Restrepo MD at 15:51 EDT ,
[2023-05-13 15:40] LABS: Reflex Lactate? Y
--- NOTE | 2023-05-13 16:06 | NURSING ---
MED SURG MARIBEL DEHYDRATION, LACTIC ACIDOSIS, ALCOHOL WITHDRAWAL, CHRONIC PANCREATITIS
--- NOTE | 2023-05-13 16:15 | HP.PCM.HOS_ITS ---
HPI - General General Date of Admission: 05/13/23 Date of Service: 05/13/23 Chief Complaint: Acute alcohol withdrawal/nausea vomiting HPI Narrative BETHANY MONTALVO, is a 57 M who presented to the emergency department at [facility] on 05/13/2023 with about 3 to 4 days of nausea vomiting and diarrhea. The patient reported that he drinks about 4-6 beers a day of higher percentage alcohol. Typically 8% of 12 ounce beers. He stopped drinking about 3 days ago but quit due to having nausea vomiting and diarrhea. He states he has not been able to keep anything orally down and feels fairly dehydrated. He states just in general he has not felt well. He has no respiratory symptoms. He denies any fever or chills. He has no identifiable sick contacts and lives with a roommate who is not ill. He has no history of C. difficile and has not recently been on antibiotics. He does attest to some mild abdominal pain on the lateral aspects of his abdomen but no focal complaints. He states that it seems to get worse when he needs to have a bowel movement however this does not help relieve his symptoms. His last bowel movement was prior to presentation and he had 1 emesis while in the emergency department. He does admit to feeling a bit better since he is got some IV fluids. He states its been at least 2 days since he has had anything to eat or drink. He has not been able to keep his medications down on a regular basis either. He has quit drinking previously and did get somewhat shaky but did not have symptoms like this. Given the fact that his symptoms started before he stopped drinking I do not suspect this is entirely related to alcohol withdrawal. He is interested in the ramp program however. Vital signs on presentation show a temperature of 96.8, heart rate was initially 139 however with IV fluids he has trended down and is 105, initial blood pressure was 148/20, respiratory rate initially was 20 but has improved to 18 and oxygen saturations are 94 to 99% on room air. He appears to be mildly hemoconcentrated on his CBC. The only significant abnormality is a platelet count of 111,000 and it does appear he has chronic thrombocytopenia. His chemistry panel reveals a normal BUN however his serum creatinine is elevated at 1.89 (baseline serum creatinine appears to run between 1.3 and 1.55). His LFTs are elevated with an AST of 255 and ALT of 197. His alk phos was 207 and his bilirubin is 4.20. His lactic acid initially was elevated at 3.5 however repeat after hydration has improved to 0.4. His lipase was normal at 56. His urine showed ketones in urine urobilinogen with an elevated urine bilirubin but was otherwise unremarkable for any signs of infection. He does have hyaline casts. Abdominal CT was overall unremarkable for any acute findings. A gallbladder ultrasound was also performed given sludge identified on CT and showed only hepatomegaly with fatty infiltration of liver and a small gallbladder polyp. [facility] Medical History Alcohol abuse Alcohol intoxication Anxiety Asthma Atherosclerosis of coronary artery of robinson heart without angina pectoris Chest pain Chest pain Community acquired pneumonia COPD (chronic obstructive pulmonary disease) COPD exacerbation Depression WILSON (dyspnea on exertion) Fatigue Former smoker GERD (gastroesophageal reflux disease) GI bleed Heart failure Hyperlipidemia Hypertension Hypoxia Irregular heart beat Kidney disease Lung nodule Myocardial infarct NSTEMI (non-ST elevated myocardial infarction) Obesity (BMI 30.0-34.9) Sleep apnea Suicidal ideation Thrombocytopenia TIA (transient ischemic attack) Tobacco use Home Medications omeprazole 20 mg capsule,delayed release 20 mg PO DAILY heart burn 06/17/14 [History Last Taken 01/12/19 10:30 20 MG] aspirin 81 mg tablet,delayed release 81 mg PO DAILY heart 06/17/16 [History Last Taken 11/21/17 04:30] cyclobenzaprine 10 mg tablet 10 mg PO PRN PRN Pain 06/17/16 [History Last Taken 11/21/17 02:00] L.acidoph, paracasei,B. lactis 10 billion cell capsule 1 ea PO DAILY supplement 11/21/17 [History Last Taken 11/20/17 22:00] atorvastatin 80 mg tablet 80 mg PO QHS #30 tabs 12/20/17 [Rx Last Taken Unknown] albuterol sulfate 90 mcg/actuation aerosol inhaler 1 - 2 puff inhalation Q4H PRN PRN Wheezing ##1 05/28/19 [Rx Last Taken Unknown] buspirone 10 mg tablet 10 mg PO TID depression 05/28/19 [History Last Taken Unknown] sertraline 100 mg tablet 50 mg PO DAILY depression 05/28/19 [History Last Taken Unknown] amlodipine 10 mg tablet 10 mg PO DAILY #30 tabs 06/04/19 [Rx Last Taken Unknown] lisinopril 10 mg tablet 10 mg PO DAILY 12/31/19 [History Last Taken Unknown] ondansetron 4 mg disintegrating tablet 4 mg PO Q8H PRN nausea and vomiting #10 tabs 05/12/21 [Rx Last Taken Unknown] carvedilol 12.5 mg tablet 6.25 mg PO BID 12/24/22 [History Last Taken Unknown] nitroglycerin 0.4 mg sublingual tablet 0.4 mg sublingual Q5M PRN Chest Pain #25 tabs 12/24/22 [Rx Last Taken Unknown] trazodone 50 mg tablet 50 mg PO QHS 12/24/22 [History Last Taken Unknown] dicyclomine 10 mg capsule 20 mg (2 x 10 mg) PO Q6H PRN abdominal pain #20 CAPSULES 01/02/23 [Rx Last Taken Unknown] ezetimibe 10 mg tablet 10 mg PO DAILY 04/01/23 [History Last Taken Unknown] magnesium oxide 400 mg (241.3 mg magnesium) tablet 400 mg PO BID 04/01/23 [History Last Taken Unknown] Allergy/AdvReac Type Severity Reaction Status Date / Time No Known Allergies Allergy Verified 05/13/23 10:52 Family History Mother CAD (coronary artery disease) Father CAD (coronary artery disease) Brother CAD (coronary artery disease) Myocardial infarction Sister CAD (coronary artery disease) Surgical History History of coronary artery stent placement History of tonsillectomy Hx of eye surgery Stented coronary artery Social History (Updated 05/13/23 @ 20:[address] Lorena Bennett DO) household members: friend(s) housing: apartment Smoking Status: Former smoker alcohol intake: current alcohol intake frequency: 3 or more drinks per day substance use type: former substance user Date of last use: 8 weeks ago caffeine: Yes Type: coffee Number of servings: 2 what type of physical activity do you participate in: none ROS Constitutional Constitutional: Reports anorexia, malaise and weakness; Denies change in weight, chills, fatigue, fever(s), night sweats or other Eyes Eyes: Denies blurry vision, change in eye color, change in vision, discharge from eye(s), double vision, erythema, eye pain, loss of vision or other ENT HEENT: Denies abnormal hearing, dysphagia, ear pain, epistaxis, headache(s), hearing loss, nasal congestion, nasal discharge, post nasal drip, sinus pressure, sore throat or other Cardiovascular Cardiovascular: Denies chest pain, claudication, dyspnea on exertion, edema, lightheadedness, orthopnea, palpitations, paroxysmal nocturnal dyspnea, rapid heart rate, syncope or other Respiratory/Chest Respiratory/Chest: Denies cough, dyspnea, excessive phlegm production, hemoptysis, productive cough, shortness of breath at rest, shortness of breath with exertion, wheezing or other Gastrointestinal Gastrointestinal: Reports abdominal pain, diarrhea, nausea and vomiting; Denies coffee ground emesis, constipation, dyspepsia, hematemesis, hematochezia, loose stools, melena or other Genitourinary Genitourinary: Reports other Details: Decreased urinary output ; Denies burning urination, difficulty urinating, dysuria, hematuria, nocturia, urinary frequency, urinary hesitancy, urinary incontinence or urinary urgency Musculoskeletal Musculoskeletal: Denies arthralgias, back pain, joint pain, joint stiffness, joint swelling, myalgias, neck pain or other Neurologic Neurologic: Denies abnormal gait, abnormal speech, confusion, disequilibrium, dizziness, focal weakness, headache(s), numbness, paresthesias, seizure-like activity, seizures, syncope, tingling, tremor(s) or other Psychiatric Psychiatric: Denies anxiety, depression, homicidal ideation, suicidal ideation or other Endocrine Endocrinology: Denies change in body appearance, cold intolerance, excessive sweating, heat intolerance, polydipsia, polyuria or other Hematologic/Lymphatic Hematologic/Lymphatic: Denies anemia, easy bleeding, easy bruising, lymphadenopathy or other Allergic/Immunologic Allergic/Immunologic: Denies rhinitis, hives, eczemia, asthma or other Vital Signs Vital Signs Vital Signs: 05/13/23 10:52 05/13/23 11:45 05/13/23 12:44 Temperature 96.8 F L 97.9 F Temperature Source Temporal Oral Pulse Rate 139 H 121 H 112 H Respiratory Rate 20 H 17 14 Blood Pressure 148/120 H 147/119 H 137/91 H Blood Pressure Mean 129 128 106 Pulse Ox 94 99 97 Oxygen Delivery Method Room Air Room Air Room Air 05/13/23 14:32 05/13/23 16:07 Temperature 98.7 F Temperature Source Oral Pulse Rate 105 H 105 H Respiratory Rate 18 18 Blood Pressure 146/86 H 144/94 H Blood Pressure Mean 106 110 Pulse Ox 96 95 Oxygen Delivery Method Room Air Room Air Weight Weight: 89.494 kg Body Mass Index (BMI) 28.3 Physical Exam Const alert, oriented x3, no apparent distress and well nourished Constitutional Narrative: Overweight, middle-aged, ill-appearing, white male, appears sick but nontoxic, pleasant General Appearance: cooperative HEENT normocephalic, head/scalp atraumatic and hearing grossly normal bilaterally HEENT Narrative: Dukas membranes are mildly dry, Mallampati is 3, no thrush, dentition is fair Eyes PERRL, EOMs intact bilaterally and conjunctivae normal Eyes Narrative: No scleral icterus identified Neck no lymphadenopathy and supple Resp normal respiratory effort, no retractions, no use of accessory muscles and clear to auscultation bilaterally Auscultation: Negative for rales, rhonchi or wheezes Cardio regular rhythm, S1 normal heart sound, S2 normal heart sound, no murmurs, no rub, no gallops and no clicks Cardio Narrative: Mildly tachycardic GI normal to inspection, nondistended, normoactive bowel sounds and soft to palpation GI Narrative: Mild diffuse tenderness Extremity no clubbing, cyanosis or edema Extremity Narrative: Pedal pulses are 2+ Skin no rashes or lesions noted, no wounds, skin turgor normal, no jaundice, no petechiae and no mottling Neuro oriented x3, CN's II-XII intact bilaterally, moves all extremities and no focal motor deficits Speech: speech normal Psych Psych Narrative: Affect is mildly flattened patient appears somewhat depressed however appropriate for current medical situation with regards to how he is feeling Results Lab / Micro Data 05/13/23 11:35 05/13/23 11:35 Labs: Laboratory Results - last 24 hr 05/13/23 11:35: WBC 6.4, RBC 4.93, Hgb 16.1, Hct 47.8, MCV 97.0 H, MCH 32.7 H, MCHC 33.7, RDW Std Deviation 44.6 H, RDW Coeff of Rosalee 12.4, Plt Count 111 L, MPV 9.9, Immature Gran % (Auto) 0.300, Neut % (Auto) 72.9 H, Lymph % (Auto) 18.4 L, [place] % (Auto) 7.6, Eos % (Auto) 0.3, Baso % (Auto) 0.5, Absolute Neuts (auto) 4.7, Absolute Lymphs (auto) 1.18, Nucleated RBC % 0, Sodium 138, Potassium 4.2, Chloride 101, Carbon Dioxide 23.0, Anion Gap 14, BUN 11, Creatinine 1.89 H, Estim Creat Clear Calc 45.06, Est GFR (MDRD) Af Amer 48 L, Est GFR (MDRD) Non-Af 39 L, BUN/Creatinine Ratio 5.8 L, Glucose 129 H, Lactic Acid 3.5 H*, Calcium 9.2, Total Bilirubin 4.20 H, AST 255 H, ALT 197 H, Alkaline Phosphatase 207 H, Total Protein 8.3 H, Albumin 4.1, Globulin 4.2, Albumin/Globulin Ratio 1.0, Lipase 56, Ethyl Alcohol < 3.0 05/13/23 13:00: Urine Color SEE COMMENT BELOW, Urine Clarity Clear, Urine pH 5.0, Ur Specific [place] 1.020, Urine Protein 100 H, Urine Glucose (UA) Normal, Urine Ketones 15 H, Urine Occult Blood 10 H, Urine Nitrite Negative, Urine Bilirubin 3 H, Urine Urobilinogen 8 H, Ur Leukocyte Esterase 25 H, Urine RBC 0 SEEN, Urine WBC 0-5 SEEN, Ur Squamous Epith Cells 0 SEEN, Urine Bacteria 0 SEEN, Hyaline Casts >100 SEEN, Urine Mucus 0 SEEN Radiology Impression Abdomen/Pelvis CT 05/13/23 12:28 IMPRESSION: Diffuse fatty infiltration of the liver. Hepatomegaly. Sludge is seen within the gallbladder lumen. Calcifications within the pancreas suggestive of chronic pancreatitis. Sigmoid diverticulosis. Electronically Signed: Jose F Restrepo MD at 13:51 EDT , Gallbladder Ultrasound 05/13/23 13:57 IMPRESSION: Hepatomegaly and fatty infiltration of the liver. Small gallbladder polyp. Electronically Signed: Jose F Restrepo MD at 15:51 EDT , Assessment & Plan Assessment/Plan (1) Alcohol withdrawal: (2) LUZ MARIA (acute kidney injury): (3) Alcoholic hepatitis: (4) Dehydration: (5) Nausea vomiting and diarrhea: (6) Transaminitis: (7) Hyperbilirubinemia: PLAN: Plan Nausea/vomiting/abdominal pain -We will check for enteric pathogens and C. difficile -CT of the abdomen pelvis as well as ultrasound of the right upper quadrant are unimpressive other than he has hepatosteatosis and a gallbladder polyp -IV fluids at 100 cc/h with LR -As needed antiemetics -Clear liquid diet and advance as tolerated -Highly suspect viral gastroenteritis based on presentation Hyperbilirubinemia/transaminitis -Significant elevations may be related to alcohol use and dehydration -We will trend -Patient does have documented history of substance abuse so if these do not improve or resolved may want to consider checking hepatitis panel -Ultrasound shows hepatosteatosis LUZ MARIA on CKD stage IIIa secondary to dehydration -Baseline serum creatinine seems to run between 1.3 and 1.5 -IV hydration as above -Serum creatinine admission was 1.89 -Hold home lisinopril for now and reinitiate once renal function improves -Avoid nephrotoxins as able Lactic acidosis -Initially 3.5 but responded well to fluid boluses -Suspect related to acute dehydration Alcohol abuse with pending withdrawal -Patient does have some symptoms consistent with alcohol withdrawal -Admits to drinking 4-6 beers daily and does tremor if he does not drink however is never had full-blown detox -Patient does drink higher alcohol percentage beer -As needed medication for symptom management -Has never been through alcohol detox previously -Phenobarbital taper -Thiamine and folate -180 consultation CAD/HPL/HTN -History of previous coronary stent -Continue home amlodipine -Continue home aspirin -Continue home neck-continue home carvedilol next continue home Zetia -Hold lisinopril with renal function elevation GERD -Continue PPI COPD -I do not see any history of PFTs however he does have a documented history of COPD -Unclear if these were done elsewhere -Continue home inhalers -Would recommend outpatient follow-up for PFTs if not previously been done -Patient does have positive history of tobacco History of tobacco abuse -Remote -Recommend ongoing cessation Depression -Continue home medication DVT prophylaxis -Low risk -Recommend early ambulation protocol CODE STATUS Full code Charges/Coding Visit Charges Inpatient E&M: 46336 Init Hosp L2
[2023-05-13 16:35] LABS: Lactic Acid 0.4 mmol/L (0.4-1.9)
[2023-05-13] MEDS: LORazepam 2 MG/ML Syringe IV (18:44)
[2023-05-13] MEDS: Gabapentin 300 MG Capsule PO (18:45)
[2023-05-13] MEDS: Lactated Ringers 1,000 ML 100 ML IV (18:45)
[2023-05-13] MEDS: Phenobarbital 32.4 MG Tablet 64.8 MG PO ×2 (18:48→22:57)
[2023-05-13] MEDS: LORazepam 1 MG Tablet 2 MG PO (20:53)
[2023-05-13] MEDS: Carvedilol 6.25 MG Tablet PO (22:57)
[2023-05-13] MEDS: busPIRone 5 MG Tablet 10 MG PO (22:57)
[2023-05-13] MEDS: Atorvastatin Calcium 80 MG Tablet PO (22:57)
[2023-05-13] MEDS: traZODone 100 MG Tablet PO (23:07)
[2023-05-14 03:51] VITALS: BP 123/83; PULSE 90; RESP 18; TEMP 36.6; O2SAT 96
[2023-05-14] MEDS: Phenobarbital 32.4 MG Tablet 64.8 MG PO ×6 (03:52→22:18)
[2023-05-14] MEDS: hydrOXYzine PAM 25 MG Capsule 50 MG PO ×2 (03:52→22:18)
[2023-05-14] MEDS: Lactated Ringers 1,000 ML 100 ML IV ×2 (03:53→14:57)
[2023-05-14 06:42] VITALS: BP 143/95; PULSE 83; RESP 18; TEMP 36.6; O2SAT 96
[2023-05-14] MEDS: busPIRone 5 MG Tablet 10 MG PO ×3 (06:44→22:18)
[2023-05-14 07:36] LABS: Absolute Lymphocyte Count 1.52 X10^3/uL (0.83-4.51); Absolute Neutrophil Count 2.5 X10^3/uL (2.0-7.7); Basophil# 0.02 X10^3/uL; Basophil% 0.4 % (0-1); Eosinophil# 0.08 X10^3/uL; Eosinophils% 1.8 % (0-5); Hematocrit 34.6 % (40-54); Hemoglobin 11.5 g/dL (13.0-16.5); Lymphocyte # 1.52 X10^3/ul (0.83-4.51); Lymphocyte % 34.1 % (19-41); Mean Corp Hgb Conc 33.2 g/dL (32-36); Mean Corpuscular Hgb 33.5 pg (27.0-32.0); Mean Corpuscular Volume 100.9 fL (80-94); Mean Platelet Vol. 9.8 fl (6.2-12.0); Monocyte# 0.34 X10^3/uL; Monocyte% 7.6 % (0-10); NRBC Flagged by Analyzer 0 % (0-5); Neutrophil # 2.49 X10^3/uL (2.7-7.7); Neutrophil % 55.9 % (47-70); POSITIVE COUNT YES; Platelet Count 75 K/mm3 (150-450); RBC Distribution Width CV 12.7 % (11.6-14.6); RBC Distribution Width SD 46.6 fl (35.1-43.9); Red Blood Count 3.43 M/mm3 (4.6-6.2); White Blood Count 4.5 K/mm3 (4.4-11.0)
[2023-05-14 07:38] LABS: Differential Indicated SCAN CRITERIA MET
[2023-05-14 08:17] LABS: Platelet Estimate MOD DEC (ADEQ)
[2023-05-14 08:31] VITALS: O2SAT 96
[2023-05-14 08:35] LABS: ALB/GLOB Ratio 0.9 RATIO (0.9-2.4); AST(SGOT) 148 U/L (15-37); Alanine Aminotransfer ALT/SGPT 123 U/L (16-61); Alkaline Phosphatase 144 U/L (45-117); Anion Gap 6 (5-15); BUN 12 mg/dL (7-18); BUN/Creat Ratio 8.8 RATIO (10-20); Calcium,Total 7.6 mg/dL (8.5-10.1); Chloride 106 mmol/L (98-107); Creatinine, Serum 1.37 mg/dL (0.70-1.30); EST Glomerular Filtration Rate 57 mL/min (>60); Est Glom Filt Rate - Afr Amer 69 mL/min (>60); Estimated Creatinine Clearance 62.17 ml/min; Globulin 3.3 g/dL (2.2-4.2); Glucose 105 mg/dL (74-106); Magnesium 1.3 mg/dL (1.6-2.6); Phosphorus 2.5 mg/dL (2.5-4.9); Potassium 3.6 mmol/L (3.5-5.1); Protein, Total 6.3 g/dL (6.4-8.2); Sodium Level 138 mmol/L (136-145)
--- NOTE | 2023-05-14 10:09 | PCM.PN.HOSP ---
Subjective Subjective Resting comfortably, no issues overnight. CIWA score of 3 so far is only had 2 bowel movements but he was having some episodes of diarrhea at home Objective Data Objective Data Vital Signs: Vital Signs Temp Pulse Resp BP Pulse Ox O2 Del Method 97.9 F 83 18 143/95 H 96 Room Air 05/14/23 06:42 05/14/23 06:42 05/14/23 06:42 05/14/23 06:42 05/14/23 08:31 05/14/23 08:31 Oxygen Delivery Method Room Air Weight: 193 lb 9.054 oz Body Mass Index (BMI) 27.8 Intake & Output: Intake and Output for Last 24 Hours 05/13/23 05/14/23 05/15/23 03:59 03:59 03:59 Intake Total 3833.33 / 3833.33 300 / 300 Balance 3833.33 / 3833.33 300 / 300 Lab / Micro Data 05/14/23 06:30 05/14/23 06:30 Labs: Laboratory Results - last 24 hr 05/13/23 11:35: WBC 6.4, RBC 4.93, Hgb 16.1, Hct 47.8, MCV 97.0 H, MCH 32.7 H, MCHC 33.7, RDW Std Deviation 44.6 H, RDW Coeff of Rosalee 12.4, Plt Count 111 L, MPV 9.9, Immature Gran % (Auto) 0.300, Neut % (Auto) 72.9 H, Lymph % (Auto) 18.4 L, [place] % (Auto) 7.6, Eos % (Auto) 0.3, Baso % (Auto) 0.5, Absolute Neuts (auto) 4.7, Absolute Lymphs (auto) 1.18, Nucleated RBC % 0, Sodium 138, Potassium 4.2, Chloride 101, Carbon Dioxide 23.0, Anion Gap 14, BUN 11, Creatinine 1.89 H, Estim Creat Clear Calc 45.06, Est GFR (MDRD) Af Amer 48 L, Est GFR (MDRD) Non-Af 39 L, BUN/Creatinine Ratio 5.8 L, Glucose 129 H, Lactic Acid 3.5 H*, Calcium 9.2, Total Bilirubin 4.20 H, AST 255 H, ALT 197 H, Alkaline Phosphatase 207 H, Total Protein 8.3 H, Albumin 4.1, Globulin 4.2, Albumin/Globulin Ratio 1.0, Lipase 56, Ethyl Alcohol < 3.0 05/13/23 13:00: Urine Color SEE COMMENT BELOW, Urine Clarity Clear, Urine pH 5.0, Ur Specific [place] 1.020, Urine Protein 100 H, Urine Glucose (UA) Normal, Urine Ketones 15 H, Urine Occult Blood 10 H, Urine Nitrite Negative, Urine Bilirubin 3 H, Urine Urobilinogen 8 H, Ur Leukocyte Esterase 25 H, Urine RBC 0 SEEN, Urine WBC 0-5 SEEN, Ur Squamous Epith Cells 0 SEEN, Urine Bacteria 0 SEEN, Hyaline Casts >100 SEEN, Urine Mucus 0 SEEN 05/13/23 15:50: Lactic Acid 0.4 05/14/23 06:30: WBC 4.5, RBC 3.43 L, Hgb 11.5 L, Hct 34.6 L, MCV 100.9 H, MCH 33.5 H, MCHC 33.2, RDW Std Deviation 46.6 H, RDW Coeff of Rosalee 12.7, Plt Count 75 L, MPV 9.8, Immature Gran % (Auto) 0.200, Neut % (Auto) 55.9, Lymph % (Auto) 34.1, [place] % (Auto) 7.6, Eos % (Auto) 1.8, Baso % (Auto) 0.4, Absolute Neuts (auto) 2.5, Absolute Lymphs (auto) 1.52, Nucleated RBC % 0, Platelet Estimate MOD DEC, Sodium 138, Potassium 3.6, Chloride 106, Carbon Dioxide 26.0, Anion Gap 6, BUN 12, Creatinine 1.37 H, Estim Creat Clear Calc 62.17, Est GFR (MDRD) Af Amer 69, Est GFR (MDRD) Non-Af 57 L, BUN/Creatinine Ratio 8.8 L, Glucose 105, Calcium 7.6 L, Phosphorus 2.5, Magnesium 1.3 L, Total Bilirubin 2.20 H, AST 148 H, ALT 123 H, Alkaline Phosphatase 144 H, Total Protein 6.3 L, Albumin 3.0 L, Globulin 3.3, Albumin/Globulin Ratio 0.9 Radiography Diagnostic Testing: Radiology Impression Abdomen/Pelvis CT 05/13/23 12:28 IMPRESSION: Diffuse fatty infiltration of the liver. Hepatomegaly. Sludge is seen within the gallbladder lumen. Calcifications within the pancreas suggestive of chronic pancreatitis. Sigmoid diverticulosis. Electronically Signed: Jose F Restrepo MD at 13:51 EDT , Gallbladder Ultrasound 05/13/23 13:57 IMPRESSION: Hepatomegaly and fatty infiltration of the liver. Small gallbladder polyp. Electronically Signed: Jose F Restrepo MD at 15:51 EDT , Physical Exam Narrative General: Alert, Oriented x3, Cooperative, No apparent distress HEENT: Atraumatic, PERRLA, EOMI, Normocephalic Oral: Moist Mucosa Neck: Supple, No JVD Lungs: Clear to auscultation, Normal air movement, No rhonchi, No wheeze, No rales Cardiovascular: Regular rate, Regular Rhythm, Normal S1, Normal S2, No murmurs Abdomen: Soft, Non Tender, Non-Distended, No Hepato-splenomegaly Extremities: No edema, Capillary Refill Less than 3 Seconds Skin: No rashes, No breakdown Musculoskeletal: No Tenderness to Palpation of Joints or Extremities Neurological: Cranial nerves II-XII grossly intact, Motor Exam 5/5 strength throughout, Sensory exam intact to light touch and pain Psych/Mental Status: Flat Assessment & Plan Assessment/Plan (1) Alcohol withdrawal: (2) LUZ MARIA (acute kidney injury): (3) Alcoholic hepatitis: (4) Dehydration: (5) Nausea vomiting and diarrhea: (6) Transaminitis: (7) Hyperbilirubinemia: PLAN: Plan 1. Acute alcohol withdrawal with nausea vomiting and elevated LFTs/depression ? His elevated LFTs are likely related to his alcohol abuse as he does have signs of chronic pancreatitis on the CT scan ? His diarrhea is also likely related to his alcohol abuse though enteric pathogen and C. difficile testing is pending ? Continue with the alcohol withdrawal protocol ? No LUZ MARIA on admission, can discontinue IV fluids ? Transaminitis is improving ? We will have him follow-[facility] with [facility] for discharge planning ? Continue with his home mental health 2. CAD status post stent/HTN/HLD ? Blood pressures are stable ? Can resume his home blood pressure medications ? Can likely resume his lisinopril if necessary ? We will monitor and make adjustments as necessary 3. GERD ? Stable ? Continue with PPI DVT: Ambulation Charges/Coding Visit Charges Inpatient E&M: 80381 Subs Hosp L2
[2023-05-14] MEDS: amLODIPine 10 MG Tablet PO (10:52)
[2023-05-14] MEDS: Gabapentin 300 MG Capsule PO (10:52)
[2023-05-14] MEDS: Folic Acid 1 MG Tablet PO (10:54)
[2023-05-14] MEDS: Sertraline 50 MG Tablet PO (10:54)
[2023-05-14] MEDS: Thiamine Hydrochloride 100 MG Tablet PO (10:54)
[2023-05-14] MEDS: Aspirin E.C. 81 MG Tablet PO (10:54)
[2023-05-14] MEDS: Ezetimibe 10 MG Tablet PO (10:54)
[2023-05-14] MEDS: Pantoprazole Sodium 20 MG Tablet PO (10:55)
[2023-05-14] MEDS: Carvedilol 6.25 MG Tablet PO ×2 (10:55→22:18)
[2023-05-14 11:03] VITALS: BP 125/88; PULSE 101; RESP 18; TEMP 36.7; O2SAT 96
--- NOTE | 2023-05-14 11:47 | CASEMGMT ---
YONI GONZALEZ DC Planning Assessment: Face to Face with patient for initial transition planning/care coordination assessment. This YONI GONZALEZ introduced self and role at [facility], pt voices understanding and is agreeable to participating in assessment. Pt alert but states he is tired. Pt lying down with eyes closed through most of the interaction. Care providers, pharmacy,?and demographics verified. Admitting dx: n/v/d, possible gastroenteritis, LUZ MARIA, ETOH hepatitis? PCP: Keren Kwon NP Specialists: [facility], Dr. 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 Preferred Pharmacy: [email or web address] Insurance: [employer] Prescription Benefit:?yes Living Will/HPOA: none LNOK: Pt states he has two children but does not want them listed as contacts at time. Friend Anju Maravilla Living Arrangements: Pt lives with a roommate in a single story apartment with one step to enter. Pt states he is independent with ADLs and states the apartment is too small which makes caring for himself challenging. Pt states he would like to get a bigger apartment. Pt states his roommate is in worse shape than I am and is unable to assist him if needed at discharge. Transportation: Pt states he drives DME: Pt states he has his dad's cane and walker available if needed. States there is a grab bar by the toilet. HHC/SNF: Pt denies any previous providers. ? Plan: Pt's plan/goal is to return home at discharge. Pt denies any needs other than a larger apartment at this time. Pt denies being connected to [facility] for assistance. Will continue to follow and assist with DC planning needs as identified. Silas Youngblood RN CM
[2023-05-14] MEDS: Influenza Virus Vac Quad 23-24 60 MCG/0.5 ML SYRINGE IM (11:50)
[2023-05-14 15:05] VITALS: BP 121/84; PULSE 93; RESP 16; TEMP 36.8; O2SAT 97
[2023-05-14 22:15] VITALS: BP 144/87; PULSE 92; RESP 16; TEMP 36.9; O2SAT 98
[2023-05-14] MEDS: Atorvastatin Calcium 80 MG Tablet PO (22:18)
[2023-05-14] MEDS: traZODone 100 MG Tablet PO (22:18)
[2023-05-14] MEDS: Loperamide 2 MG Capsule PO (22:23)
[2023-05-14] MEDS: Dicyclomine 10 MG Capsule 20 MG PO (22:23)
[2023-05-14] MEDS: Acetaminophen 325 MG Tablet 650 MG PO (22:24)
[2023-05-15] VITALS (7 sets, daily range): BP systolic 119–169; BP diastolic 86–106; PULSE 79–86; RESP 16–18; TEMP 36.6–37; O2SAT 95–99
[2023-05-15] MEDS: Lactated Ringers 1,000 ML 100 ML IV ×3 (00:56→23:09)
[2023-05-15] MEDS: Phenobarbital 32.4 MG Tablet 64.8 MG PO ×6 (03:36→22:12)
[2023-05-15] MEDS: Gabapentin 300 MG Capsule PO (03:36)
[2023-05-15] MEDS: busPIRone 5 MG Tablet 10 MG PO ×3 (06:21→22:12)
[2023-05-15 07:28] LABS: AST(SGOT) 85 U/L (15-37); Alanine Aminotransfer ALT/SGPT 87 U/L (16-61); Albumin, Serum 2.7 g/dL (3.2-5.0); Alkaline Phosphatase 118 U/L (45-117); Anion Gap 5 (5-15); BUN 8 mg/dL (7-18); BUN/Creat Ratio 7.3 RATIO (10-20); Calcium,Total 7.7 mg/dL (8.5-10.1); Chloride 105 mmol/L (98-107); Creatinine, Serum 1.09 mg/dL (0.70-1.30); EST Glomerular Filtration Rate 74 mL/min (>60); Est Glom Filt Rate - Afr Amer 90 mL/min (>60); Estimated Creatinine Clearance 78.13 ml/min; Globulin 2.8 g/dL (2.2-4.2); Glucose 97 mg/dL (74-106); Potassium 3.4 mmol/L (3.5-5.1); Protein, Total 5.5 g/dL (6.4-8.2); Sodium Level 137 mmol/L (136-145)
[2023-05-15] MEDS: Thiamine Hydrochloride 100 MG Tablet PO (09:16)
[2023-05-15] MEDS: Aspirin E.C. 81 MG Tablet PO (09:17)
[2023-05-15] MEDS: Pantoprazole Sodium 20 MG Tablet PO (09:17)
[2023-05-15] MEDS: Folic Acid 1 MG Tablet PO (09:17)
[2023-05-15] MEDS: Sertraline 50 MG Tablet PO (09:18)
[2023-05-15] MEDS: Ezetimibe 10 MG Tablet PO (09:18)
[2023-05-15] MEDS: amLODIPine 10 MG Tablet PO (09:19)
[2023-05-15] MEDS: Carvedilol 6.25 MG Tablet PO ×2 (09:19→22:12)
[2023-05-15] MEDS: Acetaminophen 325 MG Tablet 650 MG PO ×2 (11:12→18:20)
--- NOTE | 2023-05-15 11:20 | PCM.PN.HOSP ---
Subjective Subjective CIWA score of 2 this morning Objective Data Objective Data Vital Signs: Vital Signs Temp Pulse Resp BP Pulse Ox O2 Del Method 98.1 F 86 16 169/106 H 98 Room Air 05/15/23 09:23 05/15/23 09:23 05/15/23 09:23 05/15/23 09:23 05/15/23 09:26 05/15/23 09:26 Oxygen Delivery Method Room Air Weight: 193 lb 9.054 oz Body Mass Index (BMI) 27.8 Intake & Output: Intake and Output for Last 24 Hours 05/14/23 05/15/23 05/16/23 03:59 03:59 03:59 Intake Total 3833.33 / 3833.33 3498.33 / 3498.33 650 / 650 Balance 3833.33 / 3833.33 3498.33 / 3498.33 650 / 650 Lab / Micro Data 05/14/23 06:30 05/15/23 06:45 Labs: Laboratory Results - last 24 hr 05/15/23 06:45: Sodium 137, Potassium 3.4 L, Chloride 105, Carbon Dioxide 27.0, Anion Gap 5, BUN 8, Creatinine 1.09, Estim Creat Clear Calc 78.13, Est GFR (MDRD) Af Amer 90, Est GFR (MDRD) Non-Af 74, BUN/Creatinine Ratio 7.3 L, Glucose 97, Calcium 7.7 L, Total Bilirubin 1.60 H, AST 85 H, ALT 87 H, Alkaline Phosphatase 118 H, Total Protein 5.5 L, Albumin 2.7 L, Globulin 2.8, Albumin/Globulin Ratio 1.0 Micro: Microbiology 05/13/23 22:57 Stool Enteric Bacteriology - Final 05/13/23 22:57 Stool C. difficile GDH Antigen & Toxins - Final 05/13/23 22:57 Stool C. difficile DNA Amplification - Final Physical Exam Narrative General: Alert, Oriented x3, Cooperative, No apparent distress HEENT: Atraumatic, PERRLA, EOMI, Normocephalic Oral: Moist Mucosa Neck: Supple, No JVD Lungs: Clear to auscultation, Normal air movement, No rhonchi, No wheeze, No rales Cardiovascular: Regular rate, Regular Rhythm, Normal S1, Normal S2, No murmurs Abdomen: Soft, Non Tender, Non-Distended, No Hepato-splenomegaly Extremities: No edema, Capillary Refill Less than 3 Seconds Skin: No rashes, No breakdown Musculoskeletal: No Tenderness to Palpation of Joints or Extremities Neurological: Cranial nerves II-XII grossly intact, Motor Exam 5/5 strength throughout, Sensory exam intact to light touch and pain Psych/Mental Status: Flat Assessment & Plan Assessment/Plan (1) Alcohol withdrawal: (2) LUZ MARIA (acute kidney injury): (3) Alcoholic hepatitis: (4) Dehydration: (5) Nausea vomiting and diarrhea: (6) Transaminitis: (7) Hyperbilirubinemia: PLAN: Plan 1. Acute alcohol withdrawal with nausea vomiting and elevated LFTs/depression ? His elevated LFTs are likely related to his alcohol abuse as he does have signs of chronic pancreatitis on the CT scan ?Enteric pathogen panel is negative, C. difficile shows colonization with no active toxin production ? Continue with the alcohol withdrawal protocol ? No LUZ MARIA on admission, can discontinue IV fluids ? Transaminitis is improving ? We will have him follow-up with 180 for discharge planning ? Continue with his home mental health 2. CAD status post stent/HTN/HLD ? Blood pressures are stable ? Can resume his home blood pressure medications ? Can likely resume his lisinopril if necessary ? We will monitor and make adjustments as necessary 3. GERD ? Stable ? Continue with PPI DVT: Ambulation Charges/Coding Visit Charges Inpatient E&M: 97352 Subs Hosp L2
[2023-05-15] MEDS: Magnesium Sulfate 2 GM in Dextrose 5%-Water (100mL Bag) 100 ML IV (12:00)
[2023-05-15] MEDS: Loperamide 2 MG Capsule PO (18:20)
[2023-05-15] MEDS: Atorvastatin Calcium 80 MG Tablet PO (22:12)
[2023-05-15] MEDS: Dicyclomine 10 MG Capsule 20 MG PO (22:13)
[2023-05-15] MEDS: traZODone 100 MG Tablet PO (22:13)
[2023-05-16 03:32] VITALS: BP 135/91; PULSE 82; RESP 16; TEMP 36.4; O2SAT 97
[2023-05-16] MEDS: Loperamide 2 MG Capsule PO (03:33)
[2023-05-16] MEDS: Phenobarbital 32.4 MG Tablet 64.8 MG PO ×2 (03:33→08:52)
[2023-05-16] MEDS: busPIRone 5 MG Tablet 10 MG PO (06:40)
[2023-05-16 07:27] LABS: Anion Gap 5 (5-15); BUN 5 mg/dL (7-18); BUN/Creat Ratio 5.1 RATIO (10-20); Calcium,Total 7.8 mg/dL (8.5-10.1); Chloride 107 mmol/L (98-107); Creatinine, Serum 0.98 mg/dL (0.70-1.30); EST Glomerular Filtration Rate 84 mL/min (>60); Est Glom Filt Rate - Afr Amer 101 mL/min (>60); Glucose 92 mg/dL (74-106); Magnesium 1.6 mg/dL (1.6-2.6); Phosphorus 3.1 mg/dL (2.5-4.9); Potassium 3.7 mmol/L (3.5-5.1); Sodium Level 139 mmol/L (136-145)
[2023-05-16 08:50] VITALS: BP 177/112; PULSE 85; RESP 18; TEMP 37.1; O2SAT 99
[2023-05-16] MEDS: Carvedilol 6.25 MG Tablet PO (08:52)
[2023-05-16] MEDS: amLODIPine 10 MG Tablet PO (08:52)
[2023-05-16] MEDS: Sertraline 50 MG Tablet PO (08:52)
[2023-05-16] MEDS: Lactated Ringers 1,000 ML 100 ML IV (08:52)
[2023-05-16] MEDS: Pantoprazole Sodium 20 MG Tablet PO (08:52)
[2023-05-16] MEDS: Thiamine Hydrochloride 100 MG Tablet PO (08:52)
[2023-05-16] MEDS: Aspirin E.C. 81 MG Tablet PO (08:52)
[2023-05-16] MEDS: Ezetimibe 10 MG Tablet PO (08:52)
[2023-05-16] MEDS: Folic Acid 1 MG Tablet PO (08:52)
[2023-05-16] MEDS: Acetaminophen 325 MG Tablet 650 MG PO (08:59)
[2023-05-16 10:16] VITALS: BP 142/98; PULSE 76; RESP 18; TEMP 36.6; O2SAT 97
--- NOTE | 2023-05-16 11:08 | PCM.DC ---
Discharge Instructions Diet Discharge Diet: Low fat / Low cholesterol Activity Discharge Activity: Return to Normal Activity Dressing / Incision Call your doctor if you observe: Fever of 101 or Higher, Shortness of breath, Dizziness, Fainting spells, Swelling in the ankles, Chest pain and Increased palpitations (irregular heartbeat) Follow Up Care Test Results: Test results from this visit will be discussed in further detail at your follow-up appointment, if applicable. Discharge Plan Admission Admit Date/Time: 05/13/23 16:10 Attending Provider: Shakeel Valera Primary Care Provider: Keren Kwon NP Consulting Providers: Lorena Bennett Instructions Additional Instructions / Restrictions: Follow-up with your PCP in 3 to 5 days to obtain outpatient lab work to monitor your liver function as well as your kidney function. Discharge Orders/Prescriptions Prescriptions: Continued atorvastatin 80 mg tablet 80 mg PO QHS Qty: 30 12RF carvedilol 12.5 mg tablet 6.25 mg PO BID Rx Instructions: must administer with a meal/food trazodone 50 mg tablet 50 mg PO QHS nitroglycerin 0.4 mg tablet, sublingual 0.4 mg SUBLINGUAL Q5M PRN (Reason: Chest Pain) Qty: 25 3RF ezetimibe 10 mg tablet 10 mg PO DAILY magnesium oxide 400 mg (241.3 mg magnesium) tablet 400 mg PO BID omeprazole 20 MG capsule 20 mg PO DAILY Patient Comments: REFLUX cyclobenzaprine 10 MG tablet 10 mg PO PRN PRN (Reason: Pain) aspirin 81 MG tablet,delayed release (DR/EC) 81 mg PO DAILY L.acidoph, paracasei,B. lactis 1 EACH capsule 1 ea PO DAILY sertraline 100 MG tablet 50 mg PO DAILY Patient Comments: Take 1 tablet once a day. buspirone 10 MG tablet 10 mg PO TID Patient Comments: Take 1 tablet by mouth three times a day albuterol sulfate 1 INHALER inhaler 1 - 2 puff inhalation Q4H PRN PRN (Reason: Wheezing) Qty: 1 0RF amlodipine 10 MG tablet 10 mg PO DAILY Qty: 30 0RF ondansetron 4 mg tablet,disintegrating 4 mg PO Q8H PRN (Reason: nausea and vomiting) Qty: 10 0RF dicyclomine 10 mg capsule 20 mg PO Q6H PRN (Reason: abdominal pain) Qty: 20 0RF Held lisinopril 10 mg tablet 10 mg PO DAILY Hold Instructions: Resume on 05/20/23. Referrals / Follow Up: Keren Kwon NP, [employer] [Primary Care Provider] - Within 1 Week Disposition Disposition (needs filled in before D/C Order can be placed): Home, Self Care
[2023-05-16 11:50] VITALS: BP 142/104; PULSE 88; RESP 18; TEMP 36.8; O2SAT 99
--- NOTE | 2023-05-16 14:11 | PCM.DC.SUM ---
Providers Date of Admission: 05/13/23 Primary Care Physician: XUAN Armendariz Reason For Visit: ETOH DETOX AND NAUSEA/VOMITING Diagnosis Discharge Diagnosis (1) Alcohol withdrawal: Status: Acute Code(s): F10.939 - Alcohol use, unspecified with withdrawal, unspecified (2) LUZ MARIA (acute kidney injury): Status: Acute Code(s): N17.9 - Acute kidney failure, unspecified (3) Alcoholic hepatitis: Status: Acute Code(s): K70.10 - Alcoholic hepatitis without ascites (4) Dehydration: Status: Acute Code(s): E86.0 - Dehydration (5) Nausea vomiting and diarrhea: Status: Acute Code(s): R11.2 - Nausea with vomiting, unspecified; R19.7 - Diarrhea, unspecified (6) Transaminitis: Status: Acute Code(s): R74.01 - Elevation of levels of liver transaminase levels (7) Hyperbilirubinemia: Status: Acute Code(s): E80.6 - Other disorders of bilirubin metabolism Plan 1. Acute alcohol withdrawal with nausea vomiting and elevated LFTs/depression ? His elevated LFTs are likely related to his alcohol abuse as he does have signs of chronic pancreatitis on the CT scan ?Enteric pathogen panel is negative, C. difficile shows colonization with no active toxin production ? Continue with the alcohol withdrawal protocol ? No LUZ MARIA on admission, can discontinue IV fluids ? Transaminitis is improving ? We will have him follow-up with 180 for discharge planning ? Continue with his home mental health 2. CAD status post stent/HTN/HLD ? Blood pressures are stable ? Can resume his home blood pressure medications ? Can likely resume his lisinopril if necessary ? We will monitor and make adjustments as necessary 3. GERD ? Stable ? Continue with PPI DVT: Ambulation Medications at Discharge Home Medications omeprazole 20 mg capsule,delayed release 20 mg PO DAILY heart burn 06/17/14 aspirin 81 mg tablet,delayed release 81 mg PO DAILY heart 06/17/16 cyclobenzaprine 10 mg tablet 10 mg PO PRN PRN Pain 06/17/16 L.acidoph, paracasei,B. lactis 10 billion cell capsule 1 ea PO DAILY supplement 11/21/17 atorvastatin 80 mg tablet 80 mg PO QHS #30 tabs 12/20/17 albuterol sulfate 90 mcg/actuation aerosol inhaler 1 - 2 puff inhalation Q4H PRN PRN Wheezing ##1 05/28/19 buspirone 10 mg tablet 10 mg PO TID depression 05/28/19 sertraline 100 mg tablet 50 mg PO DAILY depression 05/28/19 amlodipine 10 mg tablet 10 mg PO DAILY #30 tabs 06/04/19 lisinopril 10 mg tablet 10 mg PO DAILY 12/31/19 ondansetron 4 mg disintegrating tablet 4 mg PO Q8H PRN nausea and vomiting #10 tabs 05/12/21 carvedilol 12.5 mg tablet 6.25 mg PO BID 12/24/22 nitroglycerin 0.4 mg sublingual tablet 0.4 mg sublingual Q5M PRN Chest Pain #25 tabs 12/24/22 trazodone 50 mg tablet 50 mg PO QHS 12/24/22 dicyclomine 10 mg capsule 20 mg (2 x 10 mg) PO Q6H PRN abdominal pain #20 CAPSULES 01/02/23 ezetimibe 10 mg tablet 10 mg PO DAILY 04/01/23 magnesium oxide 400 mg (241.3 mg magnesium) tablet 400 mg PO BID 04/01/23 Hospital Course Operations None Procedures None Summary of Care Provided Minutes Spent on Discharge: 33 Hospital Course: Per HPI: BETHANY MONTALVO, is a 57 M who presented to the emergency department at [facility] on 05/13/2023 with about 3 to 4 days of nausea vomiting and diarrhea. The patient reported that he drinks about 4-6 beers a day of higher percentage alcohol. Typically 8% of 12 ounce beers. He stopped drinking about 3 days ago but quit due to having nausea vomiting and diarrhea. He states he has not been able to keep anything orally down and feels fairly dehydrated. He states just in general he has not felt well. He has no respiratory symptoms. He denies any fever or chills. He has no identifiable sick contacts and lives with a roommate who is not ill. He has no history of C. difficile and has not recently been on antibiotics. He does attest to some mild abdominal pain on the lateral aspects of his abdomen but no focal complaints. He states that it seems to get worse when he needs to have a bowel movement however this does not help relieve his symptoms. His last bowel movement was prior to presentation and he had 1 emesis while in the emergency department. He does admit to feeling a bit better since he is got some IV fluids. He states its been at least 2 days since he has had anything to eat or drink. He has not been able to keep his medications down on a regular basis either. He has quit drinking previously and did get somewhat shaky but did not have symptoms like this. Given the fact that his symptoms started before he stopped drinking I do not suspect this is entirely related to alcohol withdrawal. He is interested in the ramp program however. Vital signs on presentation show a temperature of 96.8, heart rate was initially 139 however with IV fluids he has trended down and is 105, initial blood pressure was 148/20, respiratory rate initially was 20 but has improved to 18 and oxygen saturations are 94 to 99% on room air. He appears to be mildly hemoconcentrated on his CBC. The only significant abnormality is a platelet count of 111,000 and it does appear he has chronic thrombocytopenia. His chemistry panel reveals a normal BUN however his serum creatinine is elevated at 1.89 (baseline serum creatinine appears to run between 1.3 and 1.55). His LFTs are elevated with an AST of 255 and ALT of 197. His alk phos was 207 and his bilirubin is 4.20. His lactic acid initially was elevated at 3.5 however repeat after hydration has improved to 0.4. His lipase was normal at 56. His urine showed ketones in urine urobilinogen with an elevated urine bilirubin but was otherwise unremarkable for any signs of infection. He does have hyaline casts. Abdominal CT was overall unremarkable for any acute findings. A gallbladder ultrasound was also performed given sludge identified on CT and showed only hepatomegaly with fatty infiltration of liver and a small gallbladder polyp. Hospital Course: 1. Acute alcohol withdrawal with nausea vomiting and elevated LFTs/depression?57-year-old male presented to the hospital with diarrhea that started about 3 days prior to admission at the same time that he developed some nausea and vomiting and diarrhea. Denies any sick contacts but likely has a viral etiology for this. LFTs were elevated consistent with his alcoholism which have improved as he no longer drinks alcohol while here in the hospital. We did attempt to get him into rehab however he refused and would like to continue drinking. I discussed with him that alcohol can be dehydrating and so to drink water in between his alcohol intake. C. difficile testing was negative, it simply showed colonization with no active toxin production and enteric pathogen panel was also negative. He feels much better today and I discussed with him the plan for discharge she expressed understanding the risk benefits of going home and would like to go home today. He is still adamant about not quitting drinking. 2. Coronary artery disease status post stent, hypertension, hyperlipidemia, GERD are all chronic medical conditions which complicate his care. His home medications were continued where appropriate Physical Exam Narrative General: Alert, Oriented x3, Cooperative, No apparent distress HEENT: Atraumatic, PERRLA, EOMI, Normocephalic Oral: Moist Mucosa Neck: Supple, No JVD Lungs: Clear to auscultation, Normal air movement, No rhonchi, No wheeze, No rales Cardiovascular: Regular rate, Regular Rhythm, Normal S1, Normal S2, No murmurs Abdomen: Soft, Non Tender, Non-Distended, No Hepato-splenomegaly Extremities: No edema, Capillary Refill Less than 3 Seconds Skin: No rashes, No breakdown Musculoskeletal: No Tenderness to Palpation of Joints or Extremities Neurological: Cranial nerves II-XII grossly intact, Motor Exam 5/5 strength throughout, Sensory exam intact to light touch and pain Psych/Mental Status: Flat Weight / BMI Weight Weight: 193 lb 9.054 oz Body Mass Index (BMI) 27.8 ABG / Lab / Microbiology Data 05/14/23 06:30 05/16/23 06:30 Laboratory: Laboratory Results - last 24 hr 05/16/23 06:30: Sodium 139, Potassium 3.7, Chloride 107, Carbon Dioxide 27.0, Anion Gap 5, BUN 5 L, Creatinine 0.98, Estim Creat Clear Calc 86.90, Est GFR (MDRD) Af Amer 101, Est GFR (MDRD) Non-Af 84, BUN/Creatinine Ratio 5.1 L, Glucose 92, Calcium 7.8 L, Phosphorus 3.1, Magnesium 1.6 Microbiology: Microbiology 05/13/23 22:57 Stool Enteric Bacteriology - Final 05/13/23 22:57 Stool C. difficile GDH Antigen & Toxins - Final 05/13/23 22:57 Stool C. difficile DNA Amplification - Final D/C Instructions Discharge Diet: Low fat / Low cholesterol Call your doctor if you observe: Fever of 101 or Higher, Shortness of breath, Dizziness, Fainting spells, Swelling in the ankles, Chest pain and Increased palpitations (irregular heartbeat) Meaningful Use Info Meaningful Use Diagnoses (Choose all that apply): None applicable Discharge Plan Admission Admit Date/Time: 05/13/23 16:10 Attending Provider: Shakeel Valera Primary Care Provider: Keren Kwon NP Consulting Providers: Lorena Bennett Instructions Additional Instructions / Restrictions: Follow-up with your PCP in 3 to 5 days to obtain outpatient lab work to monitor your liver function as well as your kidney function. Discharge Orders/Prescriptions Prescriptions: Continued atorvastatin 80 mg tablet 80 mg PO QHS Qty: 30 12RF carvedilol 12.5 mg tablet 6.25 mg PO BID Rx Instructions: must administer with a meal/food trazodone 50 mg tablet 50 mg PO QHS nitroglycerin 0.4 mg tablet, sublingual 0.4 mg SUBLINGUAL Q5M PRN (Reason: Chest Pain) Qty: 25 3RF ezetimibe 10 mg tablet 10 mg PO DAILY magnesium oxide 400 mg (241.3 mg magnesium) tablet 400 mg PO BID omeprazole 20 MG capsule 20 mg PO DAILY Patient Comments: REFLUX cyclobenzaprine 10 MG tablet 10 mg PO PRN PRN (Reason: Pain) aspirin 81 MG tablet,delayed release (DR/EC) 81 mg PO DAILY L.acidoph, paracasei,B. lactis 1 EACH capsule 1 ea PO DAILY sertraline 100 MG tablet 50 mg PO DAILY Patient Comments: Take 1 tablet once a day. buspirone 10 MG tablet 10 mg PO TID Patient Comments: Take 1 tablet by mouth three times a day albuterol sulfate 1 INHALER inhaler 1 - 2 puff inhalation Q4H PRN PRN (Reason: Wheezing) Qty: 1 0RF amlodipine 10 MG tablet 10 mg PO DAILY Qty: 30 0RF ondansetron 4 mg tablet,disintegrating 4 mg PO Q8H PRN (Reason: nausea and vomiting) Qty: 10 0RF dicyclomine 10 mg capsule 20 mg PO Q6H PRN (Reason: abdominal pain) Qty: 20 0RF Held lisinopril 10 mg tablet 10 mg PO DAILY Hold Instructions: Resume on 05/20/23. Referrals / Follow Up: Keren Kwon NP, [employer] [Primary Care Provider] - 05/21/23 2:00 pm (Please arrive by 1:45.) Disposition Disposition (needs filled in before D/C Order can be placed): Home, Self Care Charges/Coding Visit Charges Inpatient E&M: 14860 Disch Hosp >30min
== END 2023-05-16 12:15 | disposition home or self-care (01) | DRG 775 ==
LOC: ED 11:32 → MS3 16:17
PROVIDERS: Nurse Practitioner; Admitting Provider Internal Medicine; Emergency Provider Emergency Medicine; PCP Registered Nurse; Visit Provider Family Medicine
DX: F10.239 Alcohol dependence with withdrawal, unspecified (principal); K86.0 Alcohol-induced chronic pancreatitis; K70.10 Alcoholic hepatitis without ascites; N18.31 Chronic kidney disease, stage 3a; I12.9 Hypertensive chronic kidney disease with stage 1 through stage 4 chronic kidney disease, or unspecified chronic kidney disease; F32.A Depression, unspecified; E86.0 Dehydration; E78.5 Hyperlipidemia, unspecified; I25.10 Atherosclerotic heart disease of native coronary artery without angina pectoris; K21.9 Gastro-esophageal reflux disease without esophagitis; I25.2 Old myocardial infarction; Y90.0 Blood alcohol level of less than 20 mg/100 ml; A08.4 Viral intestinal infection, unspecified; Z95.5 Presence of coronary angioplasty implant and graft; Z79.82 Long term (current) use of aspirin; Z79.899 Other long term (current) drug therapy; Z86.73 Personal history of transient ischemic attack (TIA), and cerebral infarction without residual deficits; Z87.891 Personal history of nicotine dependence; Z23 Encounter for immunization
CPT/HCPCS: 36415; 74176; 76705; 80048; 80053; 81001; 82077; 83605; 83690; 83735; 84100; 85025; 87493; 87506; 94668; 97802; 99252; 99284; J7030; J7120; 90686; A4216; G0463; J2405

== ENCOUNTER → 2023-10-14 | Outpatient (CLI) | payer MEDICAID, SELFPAY ==
[2017-11-21 12:50] VITALS: BMI 32.3
[2023-10-14 14:24] LABS: Hematocrit 43.3 % (40-54); Hemoglobin 14.9 g/dL (13.0-16.5); Mean Corp Hgb Conc 34.4 g/dL (32-36); Mean Corpuscular Hgb 32.8 pg (27.0-32.0); Mean Corpuscular Volume 95.4 fL (80-94); Mean Platelet Vol. 9.3 fl (6.2-12.0); Platelet Count 145 K/mm3 (150-450); RBC Distribution Width SD 45.4 fl (35.1-43.9); Red Blood Count 4.54 M/mm3 (4.6-6.2)
[2023-10-14 14:49] LABS: ALB/GLOB Ratio 1.1 RATIO (0.9-2.4); AST(SGOT) 55 U/L (15-37); Alanine Aminotransfer ALT/SGPT 47 U/L (16-61); Albumin, Serum 3.9 g/dL (3.2-5.0); Alkaline Phosphatase 80 U/L (45-117); Anion Gap 3 (5-15); BUN 12 mg/dL (7-18); BUN/Creat Ratio 8.1 RATIO (10-20); Calcium,Total 9.4 mg/dL (8.5-10.1); Chloride 102 mmol/L (98-107); Creatinine, Serum 1.49 mg/dL (0.70-1.30); EST Glomerular Filtration Rate 52 mL/min (>60); Est Glom Filt Rate - Afr Amer 63 mL/min (>60); Globulin 3.4 g/dL (2.2-4.2); Glucose 97 mg/dL (74-106); Potassium 4.8 mmol/L (3.5-5.1); Protein, Total 7.3 g/dL (6.4-8.2); Sodium Level 137 mmol/L (136-145)
== END | disposition home or self-care (01) ==
LOC: LAB 13:52
PROVIDERS: Referring Provider Internal Medicine Cardiovascular Disease; Visit Provider Internal Medicine Cardiovascular Disease
DX: I25.10 Atherosclerotic heart disease of native coronary artery without angina pectoris (principal); K70.10 Alcoholic hepatitis without ascites; N18.9 Chronic kidney disease, unspecified; I77.9 Disorder of arteries and arterioles, unspecified; R07.9 Chest pain, unspecified; R06.09 Other forms of dyspnea
CPT/HCPCS: 36415; 80053; 85027

== ENCOUNTER 2024-07-23 12:06 | Emergency (ER) | payer MEDICAID, SELFPAY ==
[2017-11-21 12:50] VITALS: BMI 32.3
[2024-07-23 12:07] VITALS: BP 154/131; PULSE 136; RESP 22; TEMP 36.2; O2SAT 98
--- NOTE | 2024-07-23 12:10 | RAD_ITS ---
STUDY: X-RAY - RIGHT TIBIA AND FIBULA REASON FOR EXAM: Male, 58 years old. FALL TECHNIQUE: 2 view(s) of the tibia and fibula were obtained. COMPARISON: None. FINDINGS: Normal visualized tibia. Normal visualized fibula. There is no demonstrated acute fracture. The soft tissue structures are unremarkable. RAD/Tibia & Fibula 2 Views IMPRESSION: Normal x-ray examination of the tibia and fibula. Electronically Signed: Sherwin Iyer MD at 13:22 EST ,
--- NOTE | 2024-07-23 12:10 | RAD_ITS ---
STUDY: X-RAY - RIGHT ANKLE REASON FOR EXAM: Male, 58 years old. FALL TECHNIQUE: view(s) of the ankle. COMPARISON: None. FINDINGS: Normal visualized distal tibia and fibula. Normal medial and lateral malleoli. Normal tibiotalar articulation and ankle mortise. Normal visualized talus and calcaneus. The visualized subtalar, talonavicular, calcaneocuboid and tarsal articulations are normal. There is no demonstrated fracture. The soft tissue structures are unremarkable. RAD/Ankle min 3 Views IMPRESSION: Normal x-ray examination of the ankle. Electronically Signed: Sherwin Iyer MD at 13:19 EST ,
--- NOTE | 2024-07-23 12:10 | RAD_ITS ---
STUDY: X-RAY RIGHT FOOT, GREAT TOE REASON FOR EXAM: Male, 58 years old. PATIENT WAS ON A LADDER WHEN IT WENT OUT FROM UNDER HIM. LAND ON HIS FEET APPROXIMATELY 5 FOOT DROP. DENIES LOC AND NOT ON BLOOD THINNERS. TECHNIQUE: 3 view(s) of the forefoot/toe were obtained. COMPARISON: None. FINDINGS: Normal phalanges of the forefoot. Normal visualized aspects of the metatarsal bones. Normal metatarsophalangeal (M.T.P) joint. Normal interphalangeal joints. Normal phalanges and interphalangeal joints. There is no demonstrated fracture. The soft tissue structures are unremarkable. RAD/Toe(s) Min 2 Views IMPRESSION: 1. Normal x-ray of the toe. Electronically Signed: Sherwin Iyer MD at 13:28 EST ,
--- NOTE | 2024-07-23 12:10 | RAD_ITS ---
STUDY: X-RAY - RIGHT FOOT CLINICAL: Male, 58 years old. FALL TECHNIQUE: view(s) of the foot. COMPARISON: None. FINDINGS: Normal talus, calcaneus, and tarsal bones. Normal visualized subtalar, talonavicular, calcaneocuboid, tarsal and tarsometatarsal articulations. Normal metatarsi. Normal metatarsophalangeal joint of the great toe. Normal tibial and fibular sesamoid bones. Normal interphalangeal joint of the great toe. Normal phalanges of the great toe. Normal second through fifth metatarsophalangeal joints. Normal interphalangeal joints and phalanges of the lesser toes. The soft tissue structures are unremarkable. RAD/Foot min 3 Views IMPRESSION: Normal x-ray examination of the foot. Electronically Signed: Sherwin Iyer MD at 13:27 EST ,
--- NOTE | 2024-07-23 12:30 | RAD_ITS ---
STUDY: X-RAY - LEFT ANKLE REASON FOR EXAM: Male, 58 years old. FALL TECHNIQUE: 3 view(s) of the ankle. COMPARISON: None. FINDINGS: Normal visualized distal tibia and fibula. Mild cortical spurring at the undersurface and tip of the medial malleolus. No fracture or displaced bony fragment is present. Normal lateral malleolus. Normal tibiotalar articulation and ankle mortise. Normal visualized talus and calcaneus. The visualized subtalar, talonavicular, calcaneocuboid and tarsal articulations are normal. The soft tissue structures are unremarkable. RAD/Ankle min 3 Views IMPRESSION: No demonstrated fracture of the left ankle. Electronically Signed: Sherwin Iyer MD at 13:27 EST ,
--- NOTE | 2024-07-23 12:30 | RAD_ITS ---
STUDY: X-RAY - LEFT FOOT CLINICAL: Male, 58 years old. FALL TECHNIQUE: 3 view(s) of the foot. COMPARISON: None. FINDINGS: Normal talus, calcaneus, and tarsal bones. Normal visualized subtalar, talonavicular, calcaneocuboid, tarsal and tarsometatarsal articulations. Normal metatarsi. Normal metatarsophalangeal joint of the great toe. Normal tibial and fibular sesamoid bones. Normal interphalangeal joint of the great toe. Normal phalanges of the great toe. Normal second through fifth metatarsophalangeal joints. Normal interphalangeal joints and phalanges of the lesser toes. The soft tissue structures are unremarkable. There is no demonstrated fracture. RAD/Foot min 3 Views IMPRESSION: Normal x-ray examination of the foot. Electronically Signed: Sherwin Iyer MD at 13:19 EST ,
--- NOTE | 2024-07-23 12:30 | RAD_ITS ---
STUDY: X-RAY - LEFT TIBIA AND FIBULA REASON FOR EXAM: Male, 58 years old. PATIENT WAS ON A LADDER WHEN IT WENT OUT FROM UNDER HIM. LAND ON HIS FEET APPROXIMATELY 5 FOOT DROP. DENIES LOC AND NOT ON BLOOD THINNERS. TECHNIQUE: 2 view(s) of the tibia and fibula were obtained. COMPARISON: None. FINDINGS: Normal visualized tibia. Normal visualized fibula. There is no demonstrated acute fracture. The soft tissue structures are unremarkable. RAD/Tibia & Fibula 2 Views IMPRESSION: Normal x-ray examination of the tibia and fibula. Electronically Signed: Sherwin Iyer MD at 13:22 EST ,
--- NOTE | 2024-07-23 15:16 | EX.ED.DYSGE1 ---
HPI History of Present Illness Chief Complaint: Lower Extremity Injury [facility] Medical History Personal history of colon polyps, unspecified Family history of malignant neoplasm of colon in father Anxiety Kidney disease GERD (gastroesophageal reflux disease) GI bleed Sleep apnea Former smoker Asthma Irregular heart beat Myocardial infarct TIA (transient ischemic attack) Abdominal pain Alcohol withdrawal Acute dehydration Nausea & vomiting Dehydration Alcoholic hepatitis Thrombocytopenia LUZ MARIA (acute kidney injury) Alcohol withdrawal Carotid artery disease Chronic kidney disease History of non-ST elevation myocardial infarction (NSTEMI) Coronary artery disease COPD (chronic obstructive pulmonary disease) Lung nodule Tobacco use WILSON (dyspnea on exertion) Fatigue Chest pain Heart failure COPD exacerbation Hypoxia Community acquired pneumonia Alcohol intoxication Suicidal ideation Atherosclerosis of coronary artery of [place] heart without angina pectoris Depression NSTEMI (non-ST elevated myocardial infarction) Obesity (BMI 30.0-34.9) Hyperlipidemia Hypertension Alcohol abuse Chest pain Home Medications ?Medication ?Instructions ?Recorded ?Last Taken ?Type omeprazole 20 mg capsule,delayed 20 mg PO DAILY heart burn 06/17/14 01/12/19 10:30 History release 20 MG nitroglycerin 0.4 mg sublingual 0.4 mg sublingual Q5M PRN Chest 12/24/22 Unknown Rx tablet Pain #25 tabs trazodone 50 mg tablet 50 mg PO QHS 12/24/22 Unknown History aspirin 81 mg tablet,delayed 81 mg PO DAILY heart #90 tabs 10/14/23 Unknown Rx release atorvastatin 40 mg tablet 40 mg PO QHS #90 tabs 10/14/23 Unknown Rx buspirone 10 mg tablet 5 mg PO TID depression 10/14/23 Unknown History carvedilol 3.125 mg tablet 3.125 mg PO BID #180 tabs 10/14/23 Unknown Rx cyclobenzaprine 10 mg tablet 10 mg PO DAILY PRN Pain 10/14/23 Unknown History folic acid 1 mg tablet 1 mg PO DAILY 10/14/23 Unknown History magnesium oxide 400 mg (241.3 mg 400 mg PO DAILY 10/14/23 Unknown History magnesium) tablet thiamine HCl (vitamin B1) 100 mg 100 mg PO DAILY 10/14/23 Unknown History tablet bisacodyl 5 mg tablet,delayed 5 mg PO ONCE colonoscopy prep #8 06/29/24 Unknown Rx release tabs omega-3 fatty acids 1,250 mg 1,250 mg PO QDAY 06/29/24 Unknown History capsule polyethylene glycol 3350 17 238 g PO ONCE colonoscopy prep 06/29/24 Unknown Rx gram/dose oral powder #238 grams Allergy/AdvReac Type Severity Reaction Status Date / Time No Known Allergies Allergy Verified 07/23/24 12:10 Family History Mother CAD (coronary artery disease) Father CAD (coronary artery disease) Colon cancer, Onset Age: 53 At 53yrs Brother CAD (coronary artery disease) Myocardial infarction Sister CAD (coronary artery disease) Surgical History Hx of colonoscopy History of coronary artery stent placement Stented coronary artery History of tonsillectomy Hx of eye surgery Social History (Updated 06/29/24 @ 14:05 by Sherine Mobley) household members: significant other housing: apartment current occupational status: employed current occupation: [employer] Smoking Status: Former smoker alcohol intake: current alcohol intake frequency: 3 or more drinks per day substance use type: former substance user caffeine: Yes Type: coffee Number of servings: 2 what type of physical activity do you participate in: none EXAM Physical Exam Const Vital Signs: 07/23/24 12:07 07/23/24 15:37 Temperature 97.1 F L Temperature Source Temporal Pulse Rate 136 H 110 H Respiratory Rate 22 H 20 H Blood Pressure 154/131 H 170/110 H Blood Pressure Mean 138 130 Pulse Ox 98 99 Oxygen Delivery Method Room Air Room Air MDM MDM MDM Narrative Medical decision making narrative: HISTORY OF PRESENT ILLNESS: 58-year-old male presents after fall from ladder. He notes this occurred on Saturday, 5 days prior to arrival. Notes that his ladder went out from under him. He states he fell approximately 5 feet. He injured bilateral legs. He denies back pain, head trauma or loss of consciousness. Denies upper extremity pain, chest pain abdominal pain or pain in his hips or pelvis. REVIEW OF SYSTEMS: Pertinent positives: Leg pain Pertinent negatives: Hip pain, back pain PHYSICAL EXAM: Nursing triage notes reviewed, Vital signs reviewed Primary Survey Airway: Intact Breathing: Bilateral breath sounds Circulation: Palpable bilateral femorals, Palpable bilateral radial, Palpable bilateral DP and Palpable bilateral PT Disability / Spine precautions GCS Score: Eye Openin Verbal Response: 5 Motor Response: 6 Secondary Survey Constitutional: Please see MDM Head: Atraumatic, Midface stable, NO jaw malocclusion, No Cephalohematoma, and No Lacerations noted Eye: Pupils equal round and reactive to light, Extraocular muscles intact and No periorbital ecchymosis or stepoff, no evidence of entrapment ENT: Oropharynx clear, no lacerations, no hemotympanum, no raccoon eyes or rosales sign Cervical spine / Neck: No cervical spine bony tenderness, crepitance, or stepoff deformity Trachea midline Lungs: Clear to auscultation, No asymmetric rise and No crepitus, no flail chest Cardiac: Regular rate and rhythm and No murmurs Abdomen: Soft, Nontender and No rebound Pelvis: Pelvis stable to compression : No evidence of genital injury Back: No midline bony tenderness to thoracic/lumbar/sacral spines Neuro: At baseline, intact strength and sensation in bilateral upper and lower extremities. 2+ patellar reflexes bilaterally. Extremities: NO gross Deformities, TTP over bilateral a ankles and feet, but intact joint range of motion of the slightly limited by pain Psych: Normal affect Nursing triage notes reviewed, Vital signs reviewed MEDICAL DECISION MAKING: Chief Complaint: Bilateral leg pain External records reviewed: Reviewed problem list, prior imaging Factors affecting care: Hypertension, hyperlipidemia, depression Social determinants of health: n history of alcohol abuse History obtained from others: none Consults: none [facility] Narrative: Patient was initially hypertensive with blood pressure 154/131, tachycardic with a pulse of 136, is otherwise afebrile and nontoxic-appearing. Is in no distress. Primary secondary trauma surveys concerning for lower extremity injuries. There is no sign of head trauma, axial skeletal injury with no spinal step-offs deformities. No obvious deformities of the arms or legs. Patient with full range of motion all joints although lower extremity ankles, knees are limited by pain. I considered the following differential diagnosis: Fractures of the bilateral lower extremities from the tibia down to the toes. X-rays were obtained per triage prior to my evaluation secondary to poor department of dynamics including high volume and high acuity. ALL IMAGES (IF OBTAINED) HAVE BEEN PERSONALLY REVIEWED AND INTERPRETED BY MYSELF. X-rays were read and reviewed personally myself and showed no evidence of obvious fractures or dislocations in the left foot, ankle, tibia-fibula or the right foot, ankle, toes or tibia and fibula. The patient was ambulated here without difficulty Repeat vital signs showed improvement of heart rate to 110 The patient and/or family, caregivers express understanding. The patient and/or family, caregivers agrees with the plan. Shared decision making: I will have a discussion with the patient and or visitors regarding risk/benefits of further testing or admission. They will be made aware of of the risk/benefits inherent in this decision they will be given the opportunity to voice understanding. Total critical care time today provided was at least 0 minutes. This excludes separately billable procedures. Critical care time (if documented) is secondary to the patient having high probability of clinically significant/life threatening deterioration in the patient's condition which required my urgent intervention. Impression: 1. Acute bilateral leg contusion 2. Acute bilateral knee contusion Dispo: Discharge This note was generated with [employer] dictation software. It may contain incorrect words, spelling, and punctuation that were not noted in review of the chart prior to signing. Radiography Diagnostic Testing: Clinical Impression(s) from Imaging Studies Ankle X-Ray 07/23/24 12:10 IMPRESSION: Normal x-ray examination of the ankle. Electronically Signed: Sherwin Iyer MD at 13:19 EST , Foot X-Ray 07/23/24 12:10 IMPRESSION: Normal x-ray examination of the foot. Electronically Signed: Sherwin Iyer MD at 13:27 EST , Tibia/Fibula X-Ray 07/23/24 12:10 IMPRESSION: Normal x-ray examination of the tibia and fibula. Electronically Signed: Sherwin Iyer MD at 13:22 EST , Toe X-Ray 07/23/24 12:10 IMPRESSION: 1. Normal x-ray of the toe. Electronically Signed: Sherwin Iyer MD at 13:28 EST Reading Location ID and State: [address] [place] [address] , Service support , Ankle X-Ray 07/23/24 12:30 IMPRESSION: No demonstrated fracture of the left ankle. Electronically Signed: Sherwin Iyer MD at 13:27 EST Reading Location ID and State: [address] [place] [address] , Service support , Foot X-Ray 07/23/24 12:30 IMPRESSION: Normal x-ray examination of the foot. Electronically Signed: Sherwin Iyer MD at 13:19 EST Reading Location ID and State: [address] [place] [address] , Service support , Tibia/Fibula X-Ray 07/23/24 12:30 IMPRESSION: Normal x-ray examination of the tibia and fibula. Electronically Signed: Sherwin Iyer MD at 13:22 EST Reading Location ID and State: [address] [place] [address] , Service support , Discharge Plan Triage Chief Complaint: Lower Extremity Injury ED Provider: Nik Campbell Dx/Rx/DC Orders Prescriptions: No Action trazodone 50 mg tablet 50 mg PO QHS nitroglycerin 0.4 mg tablet, sublingual 0.4 mg SUBLINGUAL Q5M PRN (Reason: Chest Pain) Qty: 25 3RF magnesium oxide 400 mg (241.3 mg magnesium) tablet 400 mg PO DAILY thiamine HCl (vitamin B1) 100 mg tablet 100 mg PO DAILY folic acid 1 mg tablet 1 mg PO DAILY aspirin 81 mg tablet,delayed release (DR/EC) 81 mg PO DAILY Qty: 90 3RF atorvastatin 40 mg tablet 40 mg PO QHS Qty: 90 3RF carvedilol 3.125 mg tablet 3.125 mg PO BID Qty: 180 3RF Rx Instructions: must administer with a meal/food omega-3 fatty acids 1,250 mg capsule 1,250 mg PO QDAY polyethylene glycol 3350 17 gram/dose powder 238 g PO ONCE Qty: 238 0RF Rx Instructions: Take per prep instructions bisacodyl 5 mg tablet,delayed release (DR/EC) 5 mg PO ONCE Qty: 8 0RF Rx Instructions: Take per prep instructions omeprazole 20 MG capsule 20 mg PO DAILY Patient Comments: REFLUX cyclobenzaprine 10 mg tablet 10 mg PO DAILY PRN (Reason: Pain) buspirone 10 mg tablet 5 mg PO TID Patient Comments: Take 1 tablet by mouth three times a day Primary Care Provider: Keren Kwon NP Referrals: Keren Kwon NP, [facility]DL[facility]NAGER[facility] [Primary Care Provider] - Print Language: Senegalese
[2024-07-23] MEDS: Acetaminophen 325 MG Tablet 650 MG PO (15:31)
[2024-07-23] MEDS: Ibuprofen 200 MG Tablet 400 MG PO (15:31)
[2024-07-23 15:37] VITALS: BP 170/110; PULSE 110; RESP 20; O2SAT 99
[2024-07-23 16:00] VITALS: BP 170/110; PULSE 110; RESP 20; TEMP 36.8; O2SAT 99
--- NOTE | 2024-07-23 16:01 | ED.RN ---
DR BOBO AWARE OF ELEVATED BP. NO NEW ORDERS
== END 2024-07-23 16:01 | disposition home or self-care (01) ==
LOC: ED 15:49
PROVIDERS: Emergency Provider Emergency Medicine; PCP Registered Nurse; Referring Provider Emergency Medicine; Visit Provider Emergency Medicine
DX: S80.11XA Contusion of right lower leg, initial encounter (principal); J44.9 Chronic obstructive pulmonary disease, unspecified; I10 Essential (primary) hypertension; S80.12XA Contusion of left lower leg, initial encounter; S80.01XA Contusion of right knee, initial encounter; S80.02XA Contusion of left knee, initial encounter; W11.XXXA Fall on and from ladder, initial encounter; F41.9 Anxiety disorder, unspecified; K21.9 Gastro-esophageal reflux disease without esophagitis; I25.2 Old myocardial infarction; I25.10 Atherosclerotic heart disease of native coronary artery without angina pectoris; F32.A Depression, unspecified; E78.5 Hyperlipidemia, unspecified; E66.9 Obesity, unspecified; G47.30 Sleep apnea, unspecified; Z95.5 Presence of coronary angioplasty implant and graft; Z87.01 Personal history of pneumonia (recurrent); Z86.73 Personal history of transient ischemic attack (TIA), and cerebral infarction without residual deficits; Z79.82 Long term (current) use of aspirin; Z79.899 Other long term (current) drug therapy; Z87.898 Personal history of other specified conditions; Z87.891 Personal history of nicotine dependence
CPT/HCPCS: 73590; 73610; 73630; 73660; 99283

== ENCOUNTER 2025-03-03 19:11 | Inpatient (IN) | payer MEDICAID, SELFPAY ==
[2017-11-21 12:50] VITALS: BMI 32.3
[2025-03-03] VITALS (9 sets, daily range): BP systolic 83–124; BP diastolic 55–76; PULSE 93–111; RESP 16–25; TEMP 36.2–36.9; O2SAT 97–99; BMI 31.0; BMI 31.5
[2025-03-03] MEDS: 0.9% Normal Saline (1000mL) 1,000 ML 1000 ML IV ×2 (19:40→20:40)
--- NOTE | 2025-03-03 19:44 | EX.ED.DYSGE1 ---
HPI History of Present Illness Chief Complaint: Chest Pain Informant: patient Narrative Narrative: Presents to the ED for evaluation of headache, dizziness, chest pain since yesterday after leaving work. He worked his first full day yesterday a lot of heavy labor. States he was warm he was drinking water. He had 1/2-day prior to that. At the end of the day headache with dizziness and spinning. Intermittent chest pain. He states he did not urinate yesterday. Today urinated once. History of coronary disease 1 stent in 2018. No diabetes history. Has history of CKD. He states last couple days has had nonbloody loose stools. No recent antibiotics. Prior similar symptoms: No PFSH PFSH Medical History Personal history of colon polyps, unspecified Family history of malignant neoplasm of colon in father Anxiety Kidney disease GERD (gastroesophageal reflux disease) GI bleed Sleep apnea Former smoker Asthma Irregular heart beat Myocardial infarct TIA (transient ischemic attack) Abdominal pain Alcohol withdrawal Acute dehydration Nausea & vomiting Dehydration Alcoholic hepatitis Thrombocytopenia LUZ MARIA (acute kidney injury) Alcohol withdrawal Carotid artery disease Chronic kidney disease History of non-ST elevation myocardial infarction (NSTEMI) Coronary artery disease COPD (chronic obstructive pulmonary disease) Lung nodule Tobacco use WILSON (dyspnea on exertion) Fatigue Chest pain Heart failure COPD exacerbation Hypoxia Community acquired pneumonia Alcohol intoxication Suicidal ideation Atherosclerosis of coronary artery of [place] heart without angina pectoris Depression NSTEMI (non-ST elevated myocardial infarction) Obesity (BMI 30.0-34.9) Hyperlipidemia Hypertension Alcohol abuse Chest pain Home Medications ?Medication ?Instructions ?Recorded ?Last Taken ?Type omeprazole 20 mg capsule,delayed 20 mg PO DAILY heart burn 06/17/14 01/12/19 10:30 History release 20 MG nitroglycerin 0.4 mg sublingual 0.4 mg sublingual Q5M PRN Chest 12/24/22 Unknown Rx tablet Pain #25 tabs cyclobenzaprine 10 mg tablet 10 mg PO DAILY PRN Pain 10/14/23 Unknown History folic acid 1 mg tablet 1 mg PO DAILY 10/14/23 Unknown History magnesium oxide 400 mg (241.3 mg 400 mg PO DAILY 10/14/23 Unknown History magnesium) tablet thiamine HCl (vitamin B1) 100 mg 100 mg PO DAILY 10/14/23 Unknown History tablet buspirone 7.5 mg tablet 7.5 mg PO TID 09/29/24 Unknown History carvedilol 25 mg tablet 25 mg PO BID 09/29/24 Unknown History lisinopril 10 mg tablet 10 mg PO QDAY 09/29/24 Unknown History trazodone 50 mg tablet 100 mg PO QHS 09/29/24 Unknown History aspirin 81 mg tablet,delayed 81 mg PO DAILY heart #90 tabs 10/27/24 Unknown Rx release atorvastatin 40 mg tablet 40 mg PO QHS #90 tabs 10/27/24 Unknown Rx cyanocobalamin (vitamin B-12) 100 100 mcg PO DAILY 01/28/25 Unknown History mcg tablet (Vitamin B-12) multivitamin (Daily Multi-Vitamin 1 tab PO DAILY 01/28/25 Unknown History tablet) Allergy/AdvReac Type Severity Reaction Status Date / Time pseudoephedrine AdvReac Mild prostate Verified 03/03/25 19:15 infections Family History Mother CAD (coronary artery disease) Father CAD (coronary artery disease) Colon cancer, Onset Age: 53 At 53yrs Brother CAD (coronary artery disease) Myocardial infarction Sister CAD (coronary artery disease) Surgical History Hx of colonoscopy History of coronary artery stent placement Stented coronary artery History of tonsillectomy Hx of eye surgery Social History household members: significant other housing: apartment current occupational status: employed current occupation: [employer] Smoking Status: Former smoker alcohol intake: current alcohol intake frequency: 3 or more drinks per day substance use type: former substance user caffeine: Yes Type: coffee Number of servings: 2 what type of physical activity do you participate in: none ROS ROS ED Constitutional Constitutional ED: Denies chills, fever(s) or sweats ENT ENT ED: Denies sore throat Cardiovascular Cardiovascular: Denies chest pain, leg edema, palpitations or racing heartbeat Respiratory/Chest Respiratory/Chest: Denies cough, dyspnea or dyspnea on exertion Gastrointestinal Gastrointestinal: Denies abdominal pain, diarrhea, nausea or vomiting Genitourinary Genitourinary ED: Reports other Details: Decreased urine output ; Denies dysuria, hematuria or urinary frequency Musculoskeletal Musculoskeletal: Denies back pain, extremity pain or neck pain Integumentary Denies rash or wounds Neurologic Neurologic: Reports headache(s) and other Details: Dizziness ; Denies paresthesias or weakness EXAM Physical Exam Const Vital Signs: 03/03/25 19:12 03/03/25 19:12 03/03/25 19:12 Temperature 98.0 F Temperature Source Temporal Pulse Rate 111 H Respiratory Rate 16 Respiratory Effort Normal Non-Labored Blood Pressure 119/66 83/60 L Blood Pressure Mean 83 67 Pulse Ox 99 Oxygen Delivery Method Room Air 03/03/25 19:26 03/03/25 20:12 03/03/25 20:48 Temperature Temperature Source Pulse Rate 100 101 H Respiratory Rate 18 25 H Respiratory Effort Blood Pressure 98/65 87/55 L 110/71 Blood Pressure Mean 76 65 84 Pulse Ox 98 97 Oxygen Delivery Method Room Air Room Air 03/03/25 21:00 03/03/25 21:11 Temperature 98.4 F Temperature Source Pulse Rate 96 96 Respiratory Rate 25 H 25 H Respiratory Effort Blood Pressure 110/68 110/68 Blood Pressure Mean 82 82 Pulse Ox 97 99 Oxygen Delivery Method Room Air Positive well nourished and well developed General Appearance ED: well developed and NAD HEENT Reports dry mucous membranes HEENT Narrative: Mild dry mucosal membranes normocephalic and atraumatic Mouth ED: Yes dry mucous membranes Mouth: dry mucous membranes Eyes General Eye ED: Yes normal appearance of both eyes Neck full ROM Chest Wall Chest: Negative for tenderness Resp normal respiratory effort and normal air movement Effort and Inspection: symmetric chest movement; Negative for respiratory distress Cardio regular rhythm and no murmurs Rate: tachycardic Peripheral Pulses: pulses 2+ throughout GI normal to inspection, nondistended, normoactive bowel sounds and non-tender Palpation: Negative for guarding or rebound tenderness present Extremity normal to inspection General Extremety ED: Negative for edema or tenderness General Extremity: Negative for edema Neuro oriented x3, CN's II-XII intact bilaterally and no sensory deficits noted Sensorium / Orientation: awake and alert Skin no rashes or lesions noted and no wounds MDM MDM MDM Narrative Medical decision making narrative: Interventions / MDM: Differential diagnosis: Acute kidney injury, dehydration, rhabdomyolysis, alcohol use Diagnosis considered but do not suspect: N/A My EKG interpretation: Sinus rate of 107, no ST or T wave changes. QTc 461. Imaging independently reviewed and interpreted by myself: CT brain: No acute process. Chest x-ray 1 view: No acute process also read by radiology. External documents reviewed: Creatinine in September 2023 was 1.49. Test considered but not ordered:N/A ED course: Patient history is concerning for heat exhaustion leading to vertigo symptoms headache. Presenting blood pressure in the 70s heart rate 107. 2 L of fluid was ordered. Will check labs and cardiac enzymes. EKG with no acute concerns. CT angiogram head and neck due to vertiginous symptoms which started over 24 hours ago. Will give IV Reglan. 2024: Creatinine returned at 5.32 GFR of 12. His angiogram was canceled will order noncontrast CT brain. Fluids are running. Added CPK for possible rhabdomyolysis with his heat exhaustion. 2049: After 2 L of fluids systolic pressure 110. CK returned at 825, however with acute kidney injury, will run continuous fluid at 200 cc/h. Initial troponin was 13, repeat pending. I discussed with hospitalist Dr. Meyers for admission. He did request alcohol be added. From discussion with nursing earlier patient reported took 1 drink as he was nervous of coming in. Patient admitted to PCU. Re-evaluation: stable Disposition discussed with patient/family/significant other: Patient Case discussed with consulting clinician: Hospitalist This note was generated with [email or web address] dictation software. It may contain incorrect words, spelling, and punctuation that were not noted in checking the note before signing. Lab Data Attestation: I reviewed the patient's lab results. Labs: Laboratory Results - last 24 hr 03/03/25 03/03/25 19:25 21:13 WBC 15.2 H RBC 4.52 L Hgb 14.5 Hct 39.9 L MCV 88.3 MCH 32.1 H MCHC 36.3 H RDW Std Deviation 39.5 RDW Coeff of [place] 12.2 Plt Count 156 MPV 10.3 Immature Gran % (Auto) 0.300 Neut % (Auto) 67.7 Lymph % (Auto) 22.6 Andrews % (Auto) 8.0 Eos % (Auto) 1.2 Baso % (Auto) 0.2 Absolute Neuts (auto) 10.3 H Absolute Lymphs (auto) 3.44 Nucleated RBC % 0 Sodium 130 L Potassium 3.7 Chloride 91 L Carbon Dioxide 16.4 L Anion Gap 23 H BUN 42 H Creatinine 5.32 H Estim Creat Clear Calc 17.79 L Est GFR (MDRD) Non-Af 12 L BUN/Creatinine Ratio 8.0 L Glucose 80 Calcium 9.1 Magnesium 2.0 Total Creatine Kinase 825 H Troponin T High Sens 13 Ethyl Alcohol 117.0 H Radiography Diagnostic Testing: Clinical Impression(s) from Imaging Studies Brain CT 03/03/25 20:24 IMPRESSION: No acute intracranial abnormality. Reading Location: [id number] Chest X-Ray 03/03/25 21:30 IMPRESSION: No acute chest findings. [facility] Dis[facility] Disposition Disposition: Acute Care Hospital [facility] Discharge Date/Time: 03/03/25 22:07
[2025-03-03 19:54] LABS: Hematocrit 39.9 % (40-54); Hemoglobin 14.5 g/dL (13.0-16.5); Immature Granulocytes Count 0.040 X10^3/uL (0.0-0.0); Mean Corp Hgb Conc 36.3 g/dL (32-36); Mean Corpuscular Volume 88.3 fL (80-94); Mean Platelet Vol. 10.3 fl (6.2-12.0); NRBC Flagged by Analyzer 0 % (0-5); Platelet Count 156 K/mm3 (150-450); RBC Distribution Width CV 12.2 % (11.6-14.6); RBC Distribution Width SD 39.5 fl (35.1-43.9); Red Blood Count 4.52 M/mm3 (4.6-6.2); White Blood Count 15.2 K/mm3 (4.4-11.0)
[2025-03-03 20:06] LABS: Troponin T High Sensitivity 13 ng/L (<=22)
[2025-03-03 20:21] LABS: Anion Gap 23 (5-15); BUN 42 mg/dL (4-19); BUN/Creat Ratio 8.0 RATIO (10-20); Calcium,Total 9.1 mg/dL (7.6-11.0); Carbon Dioxide 16.4 mmol/L (21.0-32.0); Chloride 91 mmol/L (98-108); Estimated Creatinine Clearance 17.79 ml/min (50-250); Glucose 80 mg/dL (70-99); Potassium 3.7 mmol/L (3.3-5.1)
--- NOTE | 2025-03-03 20:24 | CT_ITS ---
PROCEDURE: BRAIN/HEAD WITHOUT CONTRAST 03/03/2025 REASON FOR EXAM: DIZZY TECHNIQUE: BRAIN/HEAD WITHOUT CONTRAST Coronal and Sagittal reconstruction series were provided. One or more dose reduction techniques were used (e.g., Automated exposure control, adjustment of the mA and/or kV according to patient size, use of iterative reconstruction technique. RADIATION DOSE SUMMARY: CTDlvol: 44.99 mGy DLP: 846.73 mGycm COMPARISON: None. FINDINGS: No acute intracranial hemorrhage, extra-axial collection, mass effect or evidence of acute infarct. Ventricles and subarachnoid spaces are normal in size. Orbital contents are unremarkable. Intact skull base and calvarium. Well-aerated paranasal sinuses. Small amount of nonspecific dependent fluid within the right mastoid air cells. CT/Brain/Head without Contrast IMPRESSION: No acute intracranial abnormality. Reading Location: [id number]
[2025-03-03 20:53] LABS: CPK Total, Creatine Kinase 825 U/L (24-195)
[2025-03-03] MEDS: 0.9% Normal Saline (1000mL) 1,000 ML 200 ML IV ×2 (20:59→22:52)
--- OUTSIDE RECORDS SUMMARY | 2025-03-03 21:02 | XMS RPT_ITS | CCD ---
Author Organization [facility] CliniSyde Care Team Providers Care Universal Banker Name Role Phone EILEEN, CANDELARIO E Unavailable Unavailable EILEEN, CANDELARIO E Unavailable Unavailable EILEEN, CANDELARIO Unavailable Unavailable EILEEN, CANDELARIO Unavailable Unavailable Desmond Tejeda Unavailable Unavailable EILEEN, CANDELARIO Unavailable Unavailable EILEEN, CANDELARIO Unavailable Unavailable Desmond Tejeda Unavailable Unavailable Haagen PLANT GENERAL MANAGER.DIGITAL SALES MANAGER, [facility] Primary Care Provider Haagen PLANT GENERAL MANAGER.DIGITAL SALES MANAGER, [facility] Primary Care Provider Haagen PLANT GENERAL MANAGER.DIGITAL SALES MANAGER, [facility] Primary Care Provider Haagen PLANT GENERAL MANAGER.DIGITAL SALES MANAGER, [facility] Primary Care Provider Dr. Pema Yang Primary Care Provider Dr. Pema Yang Referring Provider Brayden CHIEF CONTROLLER, CHIEF CONTROLLER-C Vani Attending Provider Doyle CHIEF CONTROLLER, CHIEF CONTROLLER-C [facility] Primary Care Provider [phone] Doyle CHIEF CONTROLLER, CHIEF CONTROLLER-C Keren Referring Provider Dr. Alejandro Leon Attending Provider Brayden GARRISON, CHIEF CONTROLLER-C Vani Referring Provider Brayden GARRISON, CHIEF CONTROLLER-C Vani Other Provider Dr. Casey Brewer Attending Provider Dr. Alejandro Leon Referring Provider Dr. Alejandro Leon Other Provider Dr. Will Virk Attending Provider [phone] Doyle CHIEF CONTROLLER, CHIEF CONTROLLER-C [facility] Primary Care Provider [phone] Haagen CHIEF CONTROLLER, CHIEF CONTROLLER-C Keren Referring Provider Dr. Maggy Tucker Emergency Provider Dr. Lorena Bennett Admit Provider Dr. Lorena Bennett Attending Provider Dr. Lorena Bennett Other Provider Dr. Shakeel Valera Attending Provider Dr. Shakeel Valera Other Provider Haagen CHIEF CONTROLLER, CHIEF CONTROLLER-C Keren Primary Care Provider [phone] Haagen CHIEF CONTROLLER, CHIEF CONTROLLER-C Keren Referring Provider Dr. Casey Brewer Attending Provider Haagen PLANT GENERAL MANAGER.DIGITAL SALES MANAGER, Keren Primary Care Provider Haagen PLANT GENERAL MANAGER.DIGITAL SALES MANAGER, Keren Primary Care Provider Suppan PLANT GENERAL MANAGER.DIGITAL SALES MANAGER, Kathe A Unavailable [phone] Mikhail Mancia MD Unavailable Suppan PLANT GENERAL MANAGER.DIGITAL SALES MANAGER, Kathe A Unavailable Suppan PLANT GENERAL MANAGER.DIGITAL SALES MANAGER, Kathe A Unavailable [phone] Suppan PLANT GENERAL MANAGER.CHRISTIANA, Kathe A Unavailable Mikhail Mancia MD Unavailable Sherine Mobley Attending Unavailable Haagen CHIEF CONTROLLER, Keren Primary Care Unavailable Haagen CHIEF CONTROLLER, Keren Primary Care Unavailable Shannan Nik Attending Unavailable Shannan, Nik Referring Unavailable Julius Lovell Attending Unavailable Haagen CHIEF CONTROLLER, Keren Primary Care Unavailable Haagen CHIEF CONTROLLER, Keren Referring Unavailable Friend, Julius Attending Unavailable Haagen CHIEF CONTROLLER, Keren Primary Care Unavailable Estrella Avelar Attending Unavailable Haagen CHIEF CONTROLLER, Keren Referring Unavailable Haagen CHIEF CONTROLLER, Keren Primary Care Unavailable HAAGEN, KEREN Primary Care Unavailable HAAGEN, KEREN Primary Care Unavailable MOOMAW, ROSA Referring Unavailable HAAGEN, KEREN Primary Care Unavailable HAAGEN, KEREN Referring Unavailable HAAGEN, KEREN Primary Care Unavailable HAAGEN, KEREN Attending Unavailable HAAGEN, KEREN Primary Care Unavailable HAAGEN, KEREN Attending Unavailable HAAGEN, KEREN Primary Care Unavailable HAAGEN, KEREN Attending Unavailable HAAGEN, KEREN Primary Care Unavailable HAAGEN, KEREN Referring Unavailable CHRIS DEVLIN Attending Unavailable HAAGEN, KEREN Primary Care Unavailable HAAGEN, KEREN Attending Unavailable HAAGEN, KEREN Primary Care Unavailable HAAGEN, KEREN Referring Unavailable HAAGEN, KEREN Primary Care Unavailable HAAGEN, KEREN Referring Unavailable HAAGEN, KEREN Primary Care Unavailable HAAGEN, KEREN Referring Unavailable HAAGEN, KEREN Primary Care Unavailable HAAGEN, KEREN Attending Unavailable HAAGEN, KEREN Primary Care Unavailable HAAGEN, KEREN Referring Unavailable HAAGEN, KEREN Primary Care Unavailable HAAGEN, KEREN Referring Unavailable HAAGEN, KEREN Attending Unavailable HAAGEN, KEREN Primary Care Unavailable HAAGEN, KEREN Referring Unavailable JUAREZ HERNÁNDEZ Attending Unavailable HAAGEN, KEREN Primary Care Unavailable CHRIS DEVLIN Referring Unavailable HAAGEN, KEREN Primary Care Unavailable HAAGEN, KEREN Referring Unavailable ALMA DELIA GARZA Attending Unavailable HAAGEN, KEREN Primary Care Unavailable HAAGEN, KEREN Primary Care Unavailable DESMOND DUNCAN Referring Unavailable GARY HUTTON Attending Unavailable [facility] Primary Care Unavailable Allergies Allergy Classification Reported Allergen(s) Allergy Type Date of Onset Reaction(s) Facility (20 sources) pseudoephedrine; Translations: [PSEUDOEPHEDRINE ] Drug Allergy Other: See Comments [facility] Other [place] [facility]ository Medications Current Medications Medication Drug Class(es) Dates Sig (Normalized) Sig (Original) aspirin 81 mg delayed release oral tablet (20 sources) Platelet Aggregation Inhibitor, Nonsteroidal Anti-inflammatory Drug Start: 06-17-2016 End: 06-12-2024 take 1 tablet by mouth once daily aspirin, enteric coated (ECOTRIN LOW STRENGTH) 81 mg EC tablet Indications: Coronary artery disease due to lipid rich plaque Take 1 tablet by mouth once daily. 90 tablet 3 06/12/2024 Active Comment on above: Take 1 tablet by rita th once daily. atorvastatin 40 mg oral tablet (20 sources) HMG-CoA Reductase Inhibitor Start: 06-12-2024 take 1 tablet by mouth once daily at bedtime atorvastatin (LIPITOR) 40 mg tablet Indications: Hypertriglyceridemia , Coronary artery disease due to lipid rich plaque Take 1 tablet by mouth daily at bedtime. 90 tablet 3 06/12/2024 Active Start: 10-14-2023 take 40 mg by mouth at bedtime Atorvastatin Active 40 MG PO AT BEDTIME 90 October 14, 2023 12:00am Start: 11-23-2017 End: 06-12-2024 take 1 tablet by mouth once daily at bedtime atorvastatin (LIPITOR) 80 mg tablet Indications: Hypertriglyceridemia Take 1 tablet by mouth daily at bedtime. 30 tablet 5 02/23/2022 06/12/2024 Discontinued Start: 03-15-2017 End: 11-23-2017 take 40 mg by mouth once daily Atorvastatin Calcium Discontinued 40 MG PO DAILY November 21, 2017 10:26am November 23, 2017 9:08am Comment on above: Take 1 tablet by rita th daily at bedtime. benzocaine 15 mg / menthol 3.6 mg oral lozenge (20 sources) Standardized Chemical Allergen Start: benzocaine-menthol (CEPACOL) 15-3.6 mg lozg Use 1 Lozenge as instructed every 2 hours as needed. 60 Lozenge 07/09/2024 Active busPIRone hydrochloride 7.5 mg oral tablet (20 sources) Start: End: take 1 tablet by mouth three times daily busPIRone (BUSPAR) 7.5 mg tablet Indications: Anxiety and depression Take 1 tablet by mouth three times a day. 90 tablet 2 12/22/2024 Active Start: 10-14-2023 take 5 mg by mouth t hree times daily Buspirone Active 5 MG PO THREE TIMES A DAY October 14, 2023 1:25pm Start: 11-01-2021 End: 09-28-2024 take 1 tablet by mouth three times daily as needed busPIRone (BUSPAR) 5 mg tablet Indications: Anxiety and depression Take 1 tablet by mouth three times a day as needed. 90 tablet 1 07/21/2024 09/28/2024 Discontinued Start: 05-28-2019 End: 10-14-2023 take 10 mg by mouth three times daily Buspirone Discontinued 10 MG PO THREE TIMES A DAY May 28, 2019 1:00am October 14, 2023 1:27pm Comment on above: Take 1 tablet by rita th three times daily as needed. Take 1 tablet by riat th three times daily. carvedilol 25 mg oral tablet (20 sources) alpha-Adrenergic Mandy, beta-Adrenergic Mandy Start: 08-31-2024 End: 01-19-2025 take 1 tablet by mouth twice daily carvedilol (COREG) 25 mg tablet Take 1 tablet by mouth two times a day. 60 tablet 1 01/19/2025 Active Start: 08-24-2024 End: 08-31-2024 take 1 tablet by mouth twice daily carvedilol (COREG) 12.5 mg tablet Indications: Hypertension, unspecified type Take 1 tablet by mouth two times a day. 60 tablet 1 08/24/2024 08/31/2024 Discontinued Start: 08-11-2024 End: 08-24-2024 take 1 tablet by mouth twice daily carvedilol (COREG) 6.25 mg tablet Indications: Moderate hypertension Take 1 tablet by mouth two times a day. 60 tablet 2 08/11/2024 08/24/2024 Discontinued (Dosage adjustment) Start: 06-12-2024 End: 08-11-2024 take 1 tablet by mouth twice daily carvedilol (COREG) 3.125 mg tablet Indications: Coronary artery disease due to lipid rich plaque Take 1 tablet by mouth two times a day. 180 tablet 3 06/12/2024 08/11/2024 Discontinued Start: 10-14-2023 take 3.125 mg by rita th twice daily at mealtime Carvedilol Active 3.125 MG PO TWICE A DAY 180 October 14, 2023 12:00am must administer with a meal/food Start: 01-21-2023 End: 06-12-2024 take 12.5 mg by mouth twice daily at mealtime Carvedilol Discontinued 12.5 MG PO TWICE A DAY October 14, 2023 1:25pm October 14, 2023 1:40pm must administer with a meal/food Start: 12-24-2022 End: 10-14-2023 take 6.25 mg by mouth twice daily at mealtime Carvedilol Discontinued 6.25 MG PO TWICE A DAY December 24, 2022 9:34am October 14, 2023 1:27pm must administer with a meal/food Start: 11-01-2021 End: 01-21-2023 take 1 tablet by mouth twice daily carvedilol (COREG) 3.125 mg tablet Indications: Chest pain, unspecified type , 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 Take 1 tablet by mouth twice daily. 60 tablet 1 11/01/2021 02/23/2022 Discontinued Start: 07-26-2020 End: 11-01-2021 take 1 tablet by mouth twice daily carvedilol (COREG) 6.25 mg tablet Indications: Hypertension, essential Take 1 tablet by mouth twice daily. 60 tablet 3 07/26/2020 11/01/2021 Discontinued (Other) Start: 12-31-2019 End: 12-24-2022 take 12.5 mg by mouth twice daily at mealtime Carvedilol Discontinued 12.5 MG PO TWICE A DAY 60 December 31, 2019 12:00am December 24, 2022 9:39am must administer with a meal/food Start: 06-04-2019 End: 12-31-2019 take 6.25 mg by mouth twice daily Carvedilol Discontinued 6.25 MG PO TWICE A DAY 60 June 04, 2019 1:00am December 31, 2019 2:56pm Comment on above: Take 1 tablet by rita twice daily. cyclobenzaprine hydrochloride 10 mg oral tablet (20 sources) Muscle Relaxant Start: 06-17-20 16 End: 02-02-20 take 1 tablet by mouth once daily as needed cyclobenzaprine (FLEXERIL) 10 mg tablet Indications: Acute right-sided low back pain without sciatica Take 1 tablet by mouth once daily as needed. 30 tablet 3 02/01/2025 Active Comment on above: Take 1 tablet by rita once daily as needed. doxycycline hyclate 100 mg oral tablet (2 sources) Tetracycline-cla ss Drug Start: 02-24-20 End: 03-05-20 take 1 tablet by mouth twice daily doxycycline (VIBRA-TABS) 100 mg tablet Indications: Sinobronchitis Take 1 tablet by mouth twice daily for 10 days. 20 tablet 0 02/23/2022 03/05/2022 Active Comment on above: Take 1 tablet by rita twice daily for 10 days. folic acid 1 mg oral tablet (20 sources) Start: 11-02-19 End: 11-25-19 25 take 1 tablet by mouth once daily folic acid 1 mg tablet Indications: Chronic alcohol abuse Take 1 tablet by mouth once daily. 30 tablet 5 11/24/2024 Active Comment on above: Take 1 tablet by rita once daily. L.Acidoph, Paracasei,B. Lactis (7 sources) Start: 11-22-19 L.Acidoph, Paracasei,B. Lactis Active 1 EACH PO DAILY November 21, 2017 10:26am Start: 11-21-2017 End: 10-14-2023 L.Acidoph, Paracasei,B. Lact is Discontinued 1 EACH PO DAILY November 21, 2017 12:00am October 14, 2023 1:26pm Start: 11-21-2017 L.Acidoph, Par acasei,B. Lactis Active 1 EACH PO DAILY November 21, 2017 12:00am lisinopril 10 mg oral tablet (20 sources) Angiotensin Converting Enzyme Inhibitor Start: 08-24-2024 End: 01-19-2025 take 1 tablet by mouth once daily lisinopril (ZESTRIL) 10 mg tablet Indications: Hypertension, unspecified type Take 1 tablet by mouth once daily. 30 tablet 1 01/19/2025 Active Start: 12-31-2019 End: 06-12-2024 take 1 tablet by mouth once daily lisinopril (ZESTRIL) 10 mg tablet Indications: Hypertension, essential Take 1 tablet by mouth once daily. 30 tablet 1 11/05/2022 06/12/2024 Discontinued (Other) Start: 06-04-2019 End: 12-31-2019 take 10 mg by mouth once daily Lisinopril Discontinued 10 MG PO DAILY June 04, 2019 12:35pm December 31, 2019 2:37pm Start: 11-23-2017 End: 06-04-2019 take 5 mg by mouth once daily Lisinopril Discontinued 5 MG PO DAILY December 20, 2017 11:29am June 04, 2019 12:36pm Comment on above: Take 1 tablet by [facility] once daily. magnesium oxide 400 mg oral capsule (20 sources) Start: 10-14-2023 take 400 mg by mouth once daily Magnesium Oxide Active 400 MG PO DAILY October 14, 2023 1:26pm Start: 04-01-2023 End: 10-14-2023 take 400 mg by mouth twice daily Magnesium Oxide Discontinued 400 MG PO TWICE A DAY April 01, 2023 12:00am October 14, 2023 1:27pm Start: 02-05-2023 End: 11-24-2024 take 1 capsule by mouth three times daily magnesium oxide 400 mg magnesium cap Indications: Hypomagnesemia Take 1 capsule by mouth three times a day. 90 capsule 5 11/24/2024 Active Start: 11-06-2022 End: 01-24-2023 take 1 capsule by mouth once daily magnesium oxide 400 mg magnesium cap Indications: Hypomagnesemia Take 1 capsule by mouth once daily. 30 capsule 1 11/06/2022 01/24/2023 Discontinued Comment on above: Take 1 capsule by mo uth once daily. Take 1 capsule by mo uth three times daily. nitroglycerin 0.4 mg sublingual tablet (14 sources) Nitrate Vasodilator Start: 05-24-2020 End: 11-01-2021 nitroglycerin sublingual (NITROQUICK) 0.4 mg SL tablet Indications: NSTEMI (non-ST elevated myocardial infarction) (HCC) Dissolve 1 tablet under the tongue as needed. FOR CHEST PAIN. IF NO RELIEF CALL 911 1 Bottle of 25 3 05/24/2020 11/01/2021 Discontinued (Other) Start: 03-14-2017 End: 12-24-2022 Nitroglycerin Active 0.4 MG SL Q5M December 24, 2022 9:45am Comment on above: Dissolve 1 tablet un silver the tongue as needed. FOR CHEST PAIN. IF NO RELIEF CALL 911 omeprazole 20 mg delayed release oral capsule (20 sources) Proton Pump Inhibitor Start: 4 End: 4 take 1 capsule by mouth once daily before breakfast omeprazole (PRILOSEC) 20 mg capsule Indications: GERD without esophagitis Take 1 capsule by mouth daily before breakfast. 1/2 hr before meal. 90 capsule 3 06/12/2024 Active Comment on above: Take 1 capsule by mo uth daily before breakfast. 1/2 hr before meal. predniSONE 10 mg oral tablet (14 sources) Start: 5 End: predniSONE (DELTASONE) 10 mg tablet Indications: Foot pain, left , Acute pain of left knee Take 4 tabs daily x 3 days, then 3 tabs x 3 days, 2 tabs x 3 days, then 1 tab x3 days with food. 30 tablet 12/11/2024 12/23/2024 Active Start: 08-11-2024 End: 09-02-2024 predniSONE (DELTASONE) 10 mg tablet Take 4 tabs daily x 3 days, then 3 tabs x 3 days, 2 tabs x 3 days, then 1 tab x3 days with food. 30 tablet 08/21/2024 09/02/2024 Active Start: 06-25-2022 End: 07-04-2022 predniSONE (DELTASONE) 10 mg tablet Indications: Foot pain, right Take 4 tabs daily for 3 days, then 2 tabs daily for 3 days, then 1 tab daily for 3 days with food. 21 tablet 0 06/25/2022 07/04/2022 Active Start: 02-19-2022 End: 02-24-2022 take 1 tablet by mouth once daily predniSONE (DELTASONE) 20 mg tablet Indications: URI, acute Take 1 tablet by mouth once daily for 5 days. 5 tablet 0 02/19/2022 02/24/2022 Active Comment on above: Take 1 tablet by rita once daily for 5 days. Take 4 tabs daily fo r 3 days, then 2 tabs daily for 3 days, then 1 tab daily for 3 days with food. regadenoson (LEXISCAN) 0.4 mg/5 mL syrg (1 source) Start: 11-02-19 End: 11-02-19 regadenoson (LEXISCAN) 0.4 mg/5 mL syrg Indications: Chest pain, unspecified type Inject 5 mL intravenously one time only for 1 dose. Give IV push over 10 seconds and follow with 5 ml of normal saline 5 mL 0 11/01/2021 11/01/2021 Active Comment on above: Inject 5 mL intraven ously one time only for 1 dose. Give IV push over 10 seconds and follow with 5 ml of normal saline thiamine 100 mg oral tablet (20 sources) Start: 09-30-19 End: 11-25-19 take 1 tablet by mouth once daily thiamine (VITAMIN B1) 100 mg tablet Indications: Chronic alcohol abuse Take 1 tablet by mouth once daily. 30 tablet 5 11/24/2024 Active Comment on above: Take 1 tablet by rita once daily. traZODone hydrochloride 100 mg oral tablet (20 sources) Serotonin Reuptake Inhibitor Start: 09-29-19 take 1 tablet by mouth once daily at bedtime traZODone (DESYREL) 100 mg tablet Indications: Chronic insomnia Take 1 tablet by mouth daily at bedtime. 90 tablet 1 09/28/2024 Active Start: 10-26-2020 End: 09-28-2024 take 1 tablet by mouth at bedtime as needed traZODone (DESYREL) 50 mg tablet Indications: Chronic insomnia Take 1 tablet by mouth at bedtime as needed. 30 tablet 5 06/12/2024 09/28/2024 Discontinued Comment on above: Take 1 tablet by rita th at bedtime as needed. triamcinolone acetonide 0.001 mg/mg topical ointment (2 sources) Corticosteroid Start: 02-23-2022 End: 03-09-2022 triamcinolone acetonide (KENALOG) 0.1 % ointment Indications: Dermatitis Apply to affected area twice daily for 14 days. 15 g 0 02/23/2022 03/09/2022 Active Comment on above: Apply to affected ar ea twice daily for 14 days. Completed/Discontinued Medications Medication Drug Class(es) Dates Sig (Normalized) Sig (Original) acetaminophen 500 mg oral tablet (1 source) Start: 09-04-2018 End: 11-01-2021 take 1 tablet by mouth every six hours as needed acetaminophen (TYLENOL EXTRA STRENGTH) 500 mg tablet Take 1 tablet by mouth every 6 hours as needed for Pain. 24 tablet 0 09/04/2018 11/01/2021 Discontinued (Other) Comment on above: Take 1 tablet by rita th every 6 hours as needed for Pain. [id number] 200 actuat albuterol 0.09 mg/actuat metered dose inhaler (14 sources) beta2-Adrenergic Agonist Start: 10-26-2020 End: 11-01-2021 take 2 puff(s) by inhalation every four hours as needed for wheezing albuterol HFA (VENTOLIN HFA) 90 mcg/actuation inhaler Inhale 2 Puffs as instructed every 4 hours as needed for Wheezing/Shortness of Breath. 18 g 1 10/26/2020 11/01/2021 Discontinued (Other) Start: 05-28-2019 End: 03-25-2024 take 1 puff(s) by inhalation every four hours Albuterol Sulfate Discontinued 2 PUFF INHALATION Q4H 8.5 January 09, 2023 12:00am April 01, 2023 2:10pm administer with spacer Comment on above: Inhale 2 Puffs as in structed every 4 hours as needed for Wheezing/Shortness of Breath. Amino Acids (7 sources) Start: 11-21-2017 End: 11-23-2017 Amino Acids Discontinued 700 MG PO November 21, 2017 10:26am November 23, 2017 9:07am Start: 11-21-2017 End: 11-23-2017 Amino Acids Discontinued 700 MG PO November 21, 2017 12:00am November 23, 2017 9:07am amLODIPine 5 mg oral tablet (13 sources) Dihydropyridine Calcium Channel Mandy Start: 01-21-2023 End: 06-12-2024 take 5 mg by mouth once daily Amlodipine Discontinued 5 MG PO DAILY October 14, 2023 12:00am October 14, 2023 1:39pm Start: 06-04-2019 End: 10-14-2023 take 10 mg by mouth once daily Amlodipine Discontinued 10 MG PO DAILY June 04, 2019 1:00am October 14, 2023 1:24pm Comment on above: Take 1 tablet by rita once daily. amoxicillin 875 mg / clavulanate 125 mg oral tablet (7 sources) Penicillin-class Antibacterial Start: 021 End: take 1 tablet by mouth twice daily Amoxicillin-Pot Clavulanate (Augmentin) 875-125 mg tablet Discontinued 1 TABLET PO TWICE A DAY May 12, 2021 12:00am December 24, 2022 9:35am benzonatate 100 mg oral capsule (1 source) Non-narcotic Antitussive Start: 020 End: 022 take 2 capsules by mouth three times daily as needed benzonatate (TESSALON PERLE) 100 mg capsule Indications: Viral URI with cough Take 2 capsules by mouth three times daily as needed. 42 capsule 0 09/07/2019 11/01/2021 Discontinued (Other) Comment on above: Take 2 capsules by m outh three times daily as needed. betamethasone 3 mg/ml / betamethasone acetate 3 mg/ml injectable suspension (2 sources) Corticosteroid Start: 025 End: betamethasone acetate-betamethason e sodium phosphate 6 mg injection (CELESTONE) Start: 10-07-2024 End: 10-07-2024 6 mg, Injection - FOR ORTHO USE ONLY, ONCE, 1 dose, Starting on Sat10/07/24 at 1403, Until Sat10/07/24 at 1403 30 ml bupivacaine hydrochloride 5 mg/ml injection (2 sources) Amide Local Anesthetic Start: 10-07-2024 End: 10-07-2024 BUPivacaine (PF) 0.5 % (5 mg/mL) 2 mL injection Start: 10-07-2024 End: 10-07-2024 2 mL, Injection - FOR ORTHO USE ONLY, ONCE, 1 dose, Starting on Sat10/07/24 at 1403, Until Sat10/07/24 at 1403 24 hr buPROPion hydrochloride 300 mg extended release oral tablet (1 source) Aminoketone Start: 02-24-2015 End: 11-01-2021 take 1 tablet by mouth once daily buPROPion XL (WELLBUTRIN XL) 300 mg 24 hr tablet Take 1 tablet by mouth once daily. 0 02/24/2015 11/01/2021 Discontinued (Other) Comment on above: Take 1 tablet by rita once daily. clopidogrel 75 mg oral tablet (20 sources) [id number] Platelet Inhibitor Start: 11-27-2017 End: 09-29-2018 take 1 tablet by mouth once daily Clopidogrel (Plavix) 75 mg tablet Discontinued 75 MG PO daily December 20, 2017 11:29am September 29, 2018 1:00pm dicyclomine hydrochloride 10 mg oral capsule (6 sources) Anticholinergic Start: 01-02-2023 End: 10-14-2023 take 20 mg by mouth every six hours Dicyclomine Discontinued 20 MG PO EVERY 6 HOURS January 02, 2023 11:00am October 14, 2023 1:26pm ezetimibe 10 mg oral tablet (20 sources) Dietary Cholesterol Absorption Inhibitor Start: 11-09-2021 End: 06-12-2024 take 10 mg by mouth once daily Ezetimibe Discontinued 10 MG PO DAILY April 01, 2023 12:00am October 14, 2023 1:41pm Comment on above: Take 1 tablet by rita th once daily. famotidine 20 mg oral tablet (7 sources) Histamine-2 Receptor Antagonist Start: 09-29-2018 End: 12-24-2022 take 20 mg by mouth once daily Famotidine Discontinued 20 MG PO DAILY September 29, 2018 12:00am December 24, 2022 9:34am fluticasone propionate 0.05 mg/actuat metered dose nasal spray (1 source) Corticosteroid Start: 09-07-2019 End: 11-01-2021 take 2 spray(s) by mouth once daily fluticasone (FLONASE) 50 mcg/actuation nasal spray Indications: Viral URI with cough Use 2 Sprays in each nostril once daily. Rinse mouth after use. 1 Bottle 0 09/07/2019 11/01/2021 Discontinued (Other) Comment on above: Use 2 Sprays in each nostril once daily. Rinse mouth after use. hydroCHLOROthiazide 25 mg / losartan potassium 100 mg oral tablet (7 sources) Thiazide Diuretic, Angiotensin 2 Receptor Mandy Start: 06-17-2016 End: 11-23-2017 Losartan-Hydroch lorothiazide Discontinued 1 EACH PO DAILY June 17, 2016 1:00am November 23, 2017 9:07am 2 ml ketorolac tromethamine 30 mg/ml injection (9 sources) Nonsteroidal Anti-inflammatory Drug, Cyclooxygenase Inhibitor Start: 08-11-2024 End: 08-11-2024 keTORolac 60 mg injection (Toradol) Start: 08-11-2024 End: 08-11-2024 60 mg, INTRAMUSCULAR, ONCE, 1 dose, On Sat08/11/24 at 1400, Ketorolac (Toradol) is indicated for the short-term (up to 5 days) management of moderately severe acute pain. Continuation of ketorolac (Toradol) beyond 5 days increases the risk of developing serious adverse events. Please verify the duration of therapy for ketorolac (Toradol). Start: 05-28-2019 End: 12-31-2019 take 10 mg by mouth every six hours Ketorolac Discontinued 10 MG PO EVERY 6 HOURS May 28, 2019 5:11pm December 31, 2019 2:36pm L. gasseri-B. bifidum-B longum (PROBIOTIC COLON SUPPORT) 1.5 billion cell cap (1 source) Start: 07-23-2019 End: 11-01-2021 L. gasseri-B. bifidum-B longum (PROBIOTIC COLON SUPPORT) 1.5 billion cell cap Take by mouth. 0 07/23/2019 11/01/2021 Discontinued (Other) Comment on above: Take by mouth. lansoprazole 30 mg delayed release oral capsule (1 source) Proton Pump Inhibitor Start: 08-24-2020 End: 11-01-2021 take 1 capsule by mouth once daily lansoprazole (PREVACID) 30 mg capsule Indications: GERD without esophagitis Take 1 capsule by mouth once daily. 30 capsule 5 08/24/2020 11/01/2021 Discontinued (Other) Comment on above: Take 1 capsule by mo [facility] once daily. 10 ml lidocaine hydrochloride 10 mg/ml injection (2 sources) Antiarrhythmic, Amide Local Anesthetic Start: 10-07-2024 End: 10-07-2024 lidocaine (PF) 10 mg/mL (1 %) 2 mL injection (XYLOCAINE) Start: 10-07-2024 End: 10-07-2024 2 mL, Injection - FOR ORTHO USE ONLY, ONCE, 1 dose, Starting on Sat10/07/24 at 1403, Until Sat10/07/24 at 1403 melatonin 3 mg oral tablet (15 sources) Start: 12-31-2019 End: 12-24-2022 take 3 mg by mouth at bedtime Melatonin Discontinued 3 MG PO BEDTIME December 31, 2019 12:00am December 24, 2022 9:37am Start: 11-21-2017 End: 09-29-2018 take 3 mg by mouth once daily Melatonin Discontinued 3 MG PO DAILY November 21, 2017 12:00am September 29, 2018 12:59pm Comment on above: Take by mouth. meloxicam 15 mg oral tablet (1 source) Nonsteroidal Anti-inflammatory Drug Start: 1 End: 2 take 1 tablet by mouth once daily at mealtime meloxicam (MOBIC) 15 mg tablet Indications: Acute right-sided low back pain without sciatica , Right hip pain Take 1 tablet by mouth once daily. With food. 30 tablet 1 10/26/2020 11/01/2021 Discontinued (Other) Comment on above: [facility] With food. metoprolol tartrate 25 mg oral tablet (20 sources) beta-Adrenergic Mandy Start: End: take 25 mg by mouth twice daily Metoprolol Tartrate Discontinued 25 MG PO TWICE A DAY May 12, 2021 12:00am December 24, 2022 9:37am Start: 09-29-2018 End: 06-04-2019 take 25 mg by mouth twice daily Metoprolol Tartrate Discontinued 25 MG PO TWICE A DAY September 29, 2018 12:59pm June 04, 2019 12:35pm Start: 11-23-2017 End: 09-29-2018 take 12.5 mg by mouth twice daily Metoprolol Tartrate Discontinued 12.5 MG PO TWICE A DAY 60 December 20, 2017 11:30am September 29, 2018 1:00pm Start: 06-17-2014 End: 11-23-2017 take 50 mg by mouth twice daily Metoprolol Tartrate Discontinued 50 MG PO TWICE A DAY June 17, 2014 1:00am November 23, 2017 9:07am naltrexone 380 mg injection (7 sources) Opioid Antagonist Start: 01-12-2019 End: 12-24-2022 inject 380 mg by intramuscular injection every month Naltrexone Microspheres Discontinued 380 MG IM EVERY MONTH January 12, 2019 12:00am December 24, 2022 9:37am 24 hr nicotine 0.583 mg/hr transdermal system (7 sources) Cholinergic Nicotinic Agonist Start: 11-23-2017 End: 12-20-2017 Nicotine Discontinued 14 MG TRANSDERM. DAILY 30 November 23, 2017 12:00am December 20, 2017 11:28am ondansetron 4 mg disintegrating oral tablet (13 sources) Serotonin-3 Receptor Antagonist Start: 01-02-2023 End: 04-01-2023 take 8 mg by mouth every eight hours as needed Ondansetron Discontinued 8 MG PO EVERY 8 HOURS NEEDED January 02, 2023 12:00am April 01, 2023 2:12pm Start: 05-12-2021 End: 10-14-2023 take 4 mg by mouth every eight hours Ondansetron Discontinued 4 MG PO Q8H May 12, 2021 12:00am October 14, 2023 1:26pm polyethylene glycol 3350 21140 mg powder for oral solution (8 sources) Osmotic Laxative Start: 05-12-2019 End: 12-24-2022 Polyethylene Glycol 3350 (Miralax) 17 gram/dose Powder Discontinued 17 GM PO DAILY May 12, 2021 12:00am December 24, 2022 9:36am Comment on above: Take 17 g by mouth o nce daily. QUEtiapine 50 mg oral tablet (8 sources) Atypical Antipsychotic Start: 11-01-2021 End: 11-01-2021 take 1 tablet by mouth twice daily QUEtiapine (SEROQUEL) 50 mg tablet Take 1 tablet by mouth twice daily. 0 11/01/2021 11/01/2021 Discontinued (Other) Start: 09-29-2018 End: 12-24-2022 Quetiapine (Seroquel) 50 mg tablet Discontinued 75 MG PO AT BEDTIME September 29, 2018 12:00am December 24, 2022 9:36am Comment on above: Take 1 tablet by rita th twice daily. sertraline 50 mg oral tablet (20 sources) Serotonin Reuptake Inhibitor Start: 02-23-2022 End: 06-12-2024 take 1 tablet by mouth once daily sertraline (ZOLOFT) 50 mg tablet Indications: Anxiety and depression One pill by mouth daily 30 tablet 5 02/23/2022 06/12/2024 Discontinued (Other) Start: 11-01-2021 End: 02-23-2022 sertraline (ZOLOFT) 50 mg ta blet Indications: Anxiety and depression 1/2 pill daily X 1 week; then increase to a whole pill daily. 30 tablet 1 11/01/2021 02/23/2022 Discontinued Start: 10-26-2020 End: 11-01-2021 take 2 tablets by mouth once daily sertraline (ZOLOFT) 50 mg tablet Indications: Anxiety and depression Take 2 tablets by mouth once daily. 60 tablet 0 10/26/2020 11/01/2021 Discontinued (Other) Start: 05-28-2019 take 50 mg by mouth once daily Sertraline Active 50 MG PO DAILY May 28, 2019 1:00am Comment on above: 1/2 pill daily X 1 w [place]; then increase to a whole pill daily. Take 2 tablets by mo uth once daily. One pill by mouth da kehinde simvastatin 40 mg oral tablet (7 sources) HMG-CoA Reductase Inhibitor Start: 6 End: 7 take 1 tablet by mouth at bedtime Simvastatin Discontinued 1 TABLET PO AT BEDTIME June 17, 2016 1:00am March 15, 2017 10:48am ticagrelor 90 mg oral tablet (14 sources) Start: 1 End: 3 take 90 mg by mouth twice daily Ticagrelor Discontinued 90 MG PO TWICE A DAY May 12, 2021 12:00am December 24, 2022 9:38am Start: 11-23-2017 End: 12-20-2017 take 90 mg by mouth twice daily Ticagrelor Discontinued 90 MG PO TWICE A DAY November 23, 2017 12:00am December 20, 2017 11:21am Problems Active Problems Problem Classification Problem Date Documented Da te Episodic/Chronic Abdominal pain (20 sources) Left lower quadrant pain; Translations: [Left lower quadrant pain] Onset: 5 11-16-2021 Episodic Acute and unspecified renal failure (12 sources) Injury of kidney; Translations: [Acute kidney failure, unspecified] 11-16-2021 Episodic Acute myocardial infarction (20 sources) Myocardial infarction; Translations: [Non-ST elevation (NSTEMI) myocardial infarction] Onset: 8 11-29-2017 Chronic Alcohol-related disorders (20 sources) Persistent alcohol abuse ; Translations: [Alcohol abuse, uncomplicated] Onset: 4 Chronic Alcohol-related disorders (7 sources) Alcohol intoxication; Translations: [Alcohol use, unspecified with intoxication, unspecified] 05-31-2019 Episodic Allergic reactions (1 source) Inflammatory dermatosis; Translations: [Dermatitis, unspecified] Episodic Anxiety disorders (20 sources) Mixed anxiety and depressive disorder; Translations: [Anxiety disorder, unspecified] Onset: 4 Chronic Chronic kidney disease (15 sources) Chronic renal insufficiency; Translations: [Chronic kidney disease, unspecified] 11-16-2021 Chronic Chronic obstructive pulmonary disease and bronchiectasis (20 sources) Acute exacerbation of chronic obstructive airways disease; Translations: [Chronic obstructive pulmonary disease with (acute) exacerbation] 01-09-2023 Chronic Coagulation and hemorrhagic disorders (1 source) Thrombocytopenic disorder; Translations: [Thrombocytopenia, unspecified] Chronic Coronary atherosclerosis and other heart disease (20 sources) Coronary atherosclerosis; Translations: [Atherosclerotic heart disease of [place] coronary artery without angina pectoris] Onset: 5 05-31-2019 Chronic Deficiency and other anemia (1 source) Increased hemoglobin; Translations: [Other hemoglobinopathies] 08-07-2024 Chronic Deficiency and other anemia (1 source) Other hemoglobinopathies; Translations: [Elevated hemoglobin (HCC)] Onset: 5 Chronic Diabetes mellitus without complication (1 source) Increased glucose level; Translations: [Other abnormal glucose] Episodic Disorders of lipid metabolism (20 sources) Hypertriglyceridemia; Translations: [Pure hyperglyceridemia] Onset: 4 Chronic Diverticulosis and diverticulitis (8 sources) Diverticulitis; Translations: [Diverticulitis of intestine, part unspecified, without perforation or abscess without bleeding] Chronic Esophageal disorders (20 sources) Gastroesophageal reflux disease without esophagitis; Translations: [Gastro-esophageal reflux disease without esophagitis] Onset: 3 Chronic Essential hypertension (20 sources) Essential (primary) hypertension; Translations: [Essential hypertension] Onset: 7 Chronic Gout and other crystal arthropathies (2 sources) Gouty arthritis of left knee; Translations: [Gout, unspecified] Onset: 5 08-24-2024 Chronic Hyperplasia of prostate (1 source) Benign prostatic hypertrophy with outflow obstruction; Translations: [Benign prostatic hyperplasia with lower urinary tract symptoms] 09-28-2024 Chronic Influenza (1 source) Influenza-like illness; Translations: [Influenza due to unidentified influenza virus with other respiratory manifestations] 04-08-2023 Episodic Malaise and fatigue (9 sources) Fatigue; Translations: [Other fatigue] Episodic Miscellaneous mental health disorders (6 sources) Chronic insomnia; Translations: [Psychophysiologic insomnia] Onset: 4 Chronic Mood disorders (10 sources) Depressive disorder; Translations: [Depression] Onset: 5 03-20-2018 Chronic Mood disorders (1 source) Mood disorders; Translations: [Anxiety and depression] Onset: 4 Nausea and vomiting (13 sources) Nausea, vomiting and diarrhea; Translations: [Nausea with vomiting, unspecified] 01-10-2023 Episodic Nonspecific chest pain (20 sources) Chest pain, unspecified; Translations: [Chest pain] Onset: 8 Episodic Occlusion or stenosis of precerebral arteries (20 sources) Bilateral stenosis of carotid arteries; Translations: [Occlusion and stenosis of bilateral carotid arteries] Onset: 0 Chronic Other and unspecified benign neoplasm (1 source) History of polyp of colon; Translations: [Hx of colonic polyps] 06-22-2024 Episodic Other circulatory disease (4 sources) Disorder of carotid artery; Translations: [Disorder of arteries and arterioles, unspecified] 04-01-2023 Chronic Other circulatory disease (4 sources) Disorder of arteries and arterioles, unspecified; Translations: [Unspecified disorders of arteries and arterioles] 04-01-2023 Chronic Other connective tissue disease (1 source) Pain in right foot; Translations: [Pain in right foot] Episodic Other connective tissue disease (1 source) Medial epicondylitis of right humerus; Translations: [Medial epicondylitis, right elbow] 10-07-2024 Episodic Other connective tissue disease (1 source) Pain in left foot; Translations: [Foot pain, left] Onset: Episodic Other diseases of kidney and ureters (1 source) Abnormal renal function; Translations: [Disorder of kidney and ureter, unspecified] Episodic Other gastrointestinal disorders (1 source) Diarrhea; Translations: [Diarrhea, unspecified] 02-09-2025 Episodic Other gastrointestinal disorders (1 source) Diarrhea, unspecified; Translations: [Diarrhea, unspecified type] Onset: Episodic Other injuries and conditions due to external causes (2 sources) Injury of right elbow region; Translations: [Unspecified injury of right elbow, initial encounter] 07-09-2024 Episodic Other liver diseases (1 source) Fatty (change of) liver, not elsewhere classified; Translations: [Fatty (change of) liver, not elsewhere classified] Onset: Chronic Other liver diseases (1 source) Elevated liver enzymes level; Translations: [Abnormal levels of other serum enzymes] Episodic Other liver diseases (3 sources) Enzyme level - finding; Translations: [Elevated transaminase measurement] 05-13-2023 Episodic Other liver diseases (4 sources) Alkaline phosphatase raised; Translations: [Abnormal levels of other serum enzymes] 08-07-2024 Episodic Other liver diseases (3 sources) Hepatosplenomegaly; Translations: [Hepatomegaly with splenomegaly, not elsewhere classified] 08-29-2024 Episodic Other lower respiratory disease (1 source) Snoring; Translations: [Snoring] Episodic Other lower respiratory disease (7 sources) Hypoxia; Translations: [Hypoxemia] 05-31-2019 Episodic Other lower respiratory disease (1 source) Cough; Translations: [Acute cough] Episodic Other lower respiratory disease (6 sources) Dyspnea on exertion; Translations: [Other forms of dyspnea] 12-24-2022 Episodic Other lower respiratory disease (12 sources) Nodule of lung; Translations: [Solitary pulmonary nodule] 01-09-2023 Episodic Other lower respiratory disease (3 sources) Other forms of dyspnea; Translations: [Other respiratory abnormalities] 12-24-2022 Episodic Other lower respiratory disease (2 sources) Solitary pulmonary nodule; Translations: [Solitary pulmonary nodule] 01-09-2023 Episodic Other lower respiratory disease (2 sources) Cough; Translations: [Acute cough] 07-13-2024 Episodic Other non-traumatic joint disorders (3 sources) Pain in elbow; Translations: [Pain in right elbow] 09-29-2024 Episodic Other nutritional; endocrine; and metabolic disorders (7 sources) Obese class I; Translations: [Obesity, unspecified] 03-20-2018 Chronic Other nutritional; endocrine; and metabolic disorders (3 sources) Hypomagnesemia; Translations: [Hypomagnesemia] Chronic Other nutritional; endocrine; and metabolic disorders (2 sources) Hyperbilirubinemia; Translations: [Other disorders of bilirubin metabolism] 05-13-2023 Chronic Other nutritional; endocrine; and metabolic disorders (1 source) Other disorders of bilirubin metabolism; Translations: [Jaundice, unspecified, not of ] 05-16-2023 Chronic Other nutritional; endocrine; and metabolic disorders (1 source) Hypomagnesemia; Translations: [Hypomagnesemia] Onset: 5 Chronic Other upper respiratory disease (20 sources) Seasonal allergy; Translations: [Other seasonal allergic rhinitis] Onset: 4 02-05-2014 Chronic Other upper respiratory infections (1 source) Chronic sinusitis; Translations: [Chronic sinusitis, unspecified] Chronic Other upper respiratory infections (2 sources) Acute upper respiratory infection; Translations: [Acute upper respiratory infection, unspecified] Episodic Pneumonia (except that caused by tuberculosis or sexually transmitted disease) (7 sources) Community acquired pneumonia; Translations: [Pneumonia, unspecified organism] 05-31-2019 Episodic Residual codes; unclassified (1 source) Generalized aches and pains; Translations: [Pain, unspecified] Episodic Residual codes; unclassified (1 source) Influenza-like symptoms; Translations: [Other general symptoms and signs] Episodic Residual codes; unclassified (6 sources) Tobacco use and exposure - finding; Translations: [Tobacco use] 12-24-2022 Episodic Residual codes; unclassified (2 sources) Tobacco use; Translations: [Tobacco use disorder] 12-24-2022 Episodic Residual codes; unclassified (2 sources) Noncompliance with medication regimen; Translations: [Noncompliance with medication regimen] 10-14-2023 Episodic Residual codes; unclassified (1 source) History of eye AND/OR adnexa surgery; Translations: [Other specified postprocedural states] 05-24-2023 Episodic Residual codes; unclassified (1 source) Family history of cancer of colon; Translations: [Family history of malignant neoplasm of digestive organs] 06-22-2024 Episodic Substance-related disorders (2 sources) Nicotine dependence; Translations: [Nicotine dependence, unspecified, uncomplicated] 10-14-2023 Chronic Suicide and intentional self-inflicted injury (7 sources) Suicidal thoughts; Translations: [Suicidal ideations] 05-31-2019 Episodic Unclassified (1 source) Unknown / UNK(Unknown) Onset: 8 Unclassified (1 source) Acute cough; Translations: [Acute cough] Onset: 4 Unclassified (1 source) Acute right-sided low back pain without sciatica; Translations: [Acute right-sided low back pain without sciatica] Onset: 9 Viral infection (8 sources) Viral disease; Translations: [Viral infection, unspecified] 05-29-2019 Episodic Past or Other Problems Problem Classification Problem Date Documented Da te Episodic/Chronic Abdominal hernia (20 sources) Inguinal hernia; Translations: [Unilateral inguinal hernia, without obstruction or gangrene, not specified as recurrent] Onset: 07-09-2016 07-09-2016 Episodic Biliary tract disease (1 source) Cholesterolosis of gallbladder; Translations: [Cholesterolosis of gallbladder] Onset: 09-29-2024 Episodic Coronary atherosclerosis and other heart disease (20 sources) Drug coated stent in circumflex branch of left coronary artery; Translations: [Presence of coronary angioplasty implant and graft] Onset: 11-29-2017 Episodic Fluid and electrolyte disorders (18 sources) Hyperkalemia; Translations: [Hyperkalemia] Onset: 08-11-2024 Episodic Immunizations and screening for infectious disease (2 sources) Viral screening status; Translations: [Encounter for screening for other viral diseases] Onset: 06-12-2024 Episodic Other connective tissue disease (1 source) Pain in right leg; Translations: [Pain in right leg] Onset: 08-17-2024 Episodic Other diseases of kidney and ureters (20 sources) Renal impairment; Translations: [Disorder of kidney and ureter, unspecified] Onset: 02-05-2014 Episodic Other gastrointestinal disorders (1 source) Heartburn; Translations: [Heartburn] Onset: 09-29-2024 Episodic Other injuries and conditions due to external causes (20 sources) H/O: head injury; Translations: [Personal history of (healed) traumatic fracture] Onset: 02-05-2014 02-05-2014 Episodic Other injuries and conditions due to external causes (1 source) Unspecified injury of right elbow, initial encounter; Translations: [Injury of right elbow, initial encounter] Onset: 07-09-2024 Episodic Other liver diseases (1 source) Abnormal levels of other serum enzymes; Translations: [Elevated alkaline phosphatase level] Onset: 08-11-2024 Episodic Other non-traumatic joint disorders (6 sources) Pain in left knee; Translations: [Pain in joint, lower leg] Onset: 08-11-2024 08-11-2024 Episodic Other non-traumatic joint disorders (1 source) Pain in right elbow; Translations: [Elbow pain, right] Onset: 10-07-2024 Episodic Other screening for suspected conditions (not mental disorders or infectious disease) (15 sources) Patient encounter status; Translations: [Encounter for screening for cardiovascular disorders] Onset: 06-12-2024 Episodic Spondylosis; intervertebral disc disorders; other back problems (20 sources) Acute low back pain; Translations: [Acute right-sided low back pain without sciatica] Onset: 03-16-2019 Episodic Results Test Name Value Interpretation Reference Range Facility [facility] 02-09-2025 CNOV Office Visit ([facility]) BETHANY MONTALVO ([id number]) 1965 M Date Time Provider Department 02/09/25 2:45 PM GARY HUTTON WOEMILY During your visit today, we recorded the following information about you: Temperature Pulse Respiration Blood pressure 98.6 degrees 77/minute 16/minute 122/78 Weight 96.3 kg Gary Hutton PA 02/09/2025 2:34 PM Signed [facility] Subjective Bethany Montalvo is a 59 year old male. Patient presents with: Flu Like Symptoms: Upset stomach, dizzy and nausea, diarrhea x 3 days HPI Flu-Like Symptoms: - Onset a few days ago. - Congestion and cough, especially when lying down. - Roommate experiencing similar symptoms since Saturday. - Denies fever. Diarrhea: - 3 episodes today; initially black liquid yesterday, returning to normal color today. - No hematochezia noted today. - No recent use of Pepto-Bismol. - Taking [id number] cold and flu medication. - Vomiting early Saturday morning; none yesterday or today. - Denies eating anything out of the ordinary recently. - Reports dizziness. Abdominal Pain: - Describes abdomen as feeling tossed and turned. - No appetite. - History of stomach ulcers; takes Pepcid 20 mg daily. - Scheduled for a colonoscopy next month; missed previous appointment 3 months ago. - History of diverticulitis. - Taking aspirin. Review of Systems Constitutional: (+) malaise, (+) dehydration, (-) fever Ears/Nose/Mouth/Throat: (+) nasal congestion Respiratory: (+) cough Gastrointestinal: (+) diarrhea, (+) black stool, (+) abdominal pain, (+) decreased appetite, (-) vomiting Neurological: (+) dizziness Objective BP 122/78 Pulse 77 Temp 37 ?C (98.6 ?F) (Tympanic) Resp 16 Wt 96.3 kg (212 lb 4.9 oz) SpO2 98% BMI 30.46 kg/m? Physical Exam Vitals and nursing note reviewed. Constitutional: General: He is not in acute distress. Appearance: Normal appearance. He is not toxic-appearing. HENT: Mouth/Throat: Mouth: Mucous membranes are moist. Cardiovascular: Rate and Rhythm: Normal rate and regular rhythm. Pulmonary: Effort: Pulmonary effort is normal. Breath sounds: Normal breath sounds. Abdominal: General: Abdomen is flat. Palpations: Abdomen is soft. Tenderness: There is abdominal tenderness in the left lower quadrant. There is guarding. Skin: General: Skin is warm and dry. Neurological: Mental Status: He is alert. General: No acute distress, oral mucosa dry. Abd: Exquisite tenderness in the left lower quadrant, tenderness in the right lower quadrant and epigastric region. { 1. Diarrhea, unspecified type (R19.7) 2. Lower abdominal pain (R10.30) - Patient presents with multiple episodes of diarrhea, including one with melena, and significant lower abdominal tenderness on examination. - Differential diagnoses include diverticulitis and upper GI bleed, especially given the patient's history of stomach ulcers and current use of aspirin. - Referred to the emergency room for further evaluation, including blood work and abdominal imaging, to rule out serious conditions. and Recording using [employer] software for draft documentation of the visit was discussed with the patient/authorized sales representative [employer]; all questions welcomed and answered. Patient/authorized sales representative [employer] agreed to proceed Disposition The patient was other (comment) (sent to er). Procedures Allergies As of Date: 02/09/2025 Noted Allergy Reaction SUDAFED (PSEUDOEPHEDRINE) 06/26/2016 14 - Other: See Comments Comments: Prostate infection Date Reviewed: 02/09/2025 Reviewed by: Melina Stafford LPN - Fully Assessed Reason for Visit: Flu Like Symptoms [267] Cmt: Upset stomach, dizzy and nausea, diarrhea x 3 days Primary Visit Diagnosis:Lower abdominal pain [R10.30] Other Visit Diagnosis:Diarrhea, unspecified type [R19.7] Prescriptions as of 02/09/2025 - cyclobenzaprine (FLEXERIL) 10 mg tablet Take 1 tablet by mouth once daily as needed. - lisinopril (ZESTRIL) 10 mg tablet Take 1 tablet by mouth once daily. - carvedilol (COREG) 25 mg tablet Take 1 tablet by mouth two times a day. - busPIRone (BUSPAR) 7.5 mg tablet Take 1 tablet by mouth three times a day. - magnesium oxide 400 mg magnesium cap Take 1 capsule by mouth three times a day. - folic acid 1 mg tablet Take 1 tablet by mouth once daily. - thiamine (VITAMIN B1) 100 mg tablet Take 1 tablet by mouth once daily. - traZODone (DESYREL) 100 mg tablet Take 1 tablet by mouth daily at bedtime. - benzocaine-menthol (CEPACOL) 15-3.6 mg lozg Use 1 Lozenge as instructed every 2 hours as needed. - atorvastatin (LIPITOR) 40 mg tablet Take 1 tablet by mouth daily at bedtime. - aspirin, enteric coated (ECOTRIN LOW STRENGTH) 81 mg EC tablet Take 1 tablet by mouth once daily. - omeprazole (PRILOSEC) 20 mg capsule Take 1 capsule by mouth jenny (more content not included)... Normal [facility]OV[facility] 12-11-2024 CN Office Visit ([facility] ) SELVINBETHANY ([id number]) 1965 M Date Time Provider Department 12/11/24 2:20 PM KEREN KWON During your visit today, we recorded the following information about you: Pulse Respiration Blood pressure 72/minute 16/minute 130/82 Keren Kwon APRN.CNP 12/11/2024 4:39 PM Signed This is a 58 year old male who presents today with: Patient presents with: Recheck: Follow up HISTORY OF PRESENT ILLNESS: Bethanyabbie Montalvo is a 58 year old male. Patient presents with: Recheck: Follow up Bethany is a 58 years old present with foot pain and knee pain from the fall from June of 2024. Pt tried taking tylenol and ibuprofen with no relief. In the morning the pain gets worse, sometimes the pain wakes the pt up in the morning. States pain 5/10 and describes pain as aching now but in the morning sharp and stabbing. Unable to do Activity of daily living. Describes pain in the medial ankle area and the lateral MCP area. Knee pain Previously had knee pain that started several days after his fall. Suspected gouty in nature. Continues with pain, but no redness, swelling, increased warmth (as previously). HTN: Stable BP. No chest pain. Compliant with medication regimen. CAD: No CP. Depression and Anxiety - pt states he lives with his friend and does not have a home or a job -pt feels hopeless from time to time - pt is on trazodone and buspirone PAST MEDICAL HISTORY: PAST MEDICAL HISTORY Diagnosis Date Alcohol abuse Anxiety and depression 07/09/2016 Bilateral carotid artery stenosis 01/14/2020 40-59% bilateral. Chronic alcohol abuse Chronic insomnia Coronary artery disease due to lipid rich plaque CSF abnormal Current severe episode of major depressive disorder without psychotic features, unspecified whether recurrent (HCC) Essential hypertension GERD (gastroesophageal reflux disease) GERD with esophagitis 01/29/2019 HTN (hypertension) Hypertriglyceridemia Hypomagnesemia Moderate hypertension Renal insufficiency Syncope Tubular adenoma of colon 01/29/2019 PAST SURGICAL HISTORY Procedure Laterality Date COLONOSCOPY FLX DX W/COLLJ SPEC WHEN PFRMD 01/12/2019 Colonoscopy CRANIO/MAXILLO-FACIAL SURGERY 1989 orbital blow out fracture/ [place] ESOPHAGOGASTRODUODENOSCOPY TRANSORAL DIAGNOSTIC 01/12/2019 EGD PTCA SNGL VSSL LC 11/21/2017 JUSTIN left circ TONSILLECTOMY HX TREAT SHOULDERBLADE FRACTURE UPPER GI ENDOSCPY, W/BIOPSY, SNGL OR MULT 01/12/2019 ALLERGIES Sudafed [Pseudoephedrine] MEDICATIONS Current Outpatient Medications Medication Sig magnesium oxide 400 mg magnesium cap Take 1 capsule by mouth three times a day. folic acid 1 mg tablet Take 1 tablet by mouth once daily. lisinopril (ZESTRIL) 10 mg tablet Take 1 tablet by mouth once daily. thiamine (VITAMIN B1) 100 mg tablet Take 1 tablet by mouth once daily. carvedilol (COREG) 25 mg tablet Take 1 tablet by mouth two times a day. cyclobenzaprine (FLEXERIL) 10 mg tablet Take 1 tablet by mouth once daily as needed. busPIRone (BUSPAR) 7.5 mg tablet Take 1 tablet by mouth three times a day. traZODone (DESYREL) 100 mg tablet Take 1 tablet by mouth daily at bedtime. benzocaine-menthol (CEPACOL) 15-3.6 mg lozg Use 1 Lozenge as instructed every 2 hours as needed. atorvastatin (LIPITOR) 40 mg tablet Take 1 tablet by mouth daily at bedtime. aspirin, enteric coated (ECOTRIN LOW STRENGTH) 81 mg EC tablet Take 1 tablet by mouth once daily. omeprazole (PRILOSEC) 20 mg capsule Take 1 capsule by mouth daily before breakfast. 1/2 hr before meal. No current facility-administered medications for this visit. FAMILY HISTORY Problem Relation Age of Onset Psychiatry Mother Heart Mother NM 53 Heart Father [place] 51 Colon Cancer Father other (Heart stent) Sister No Known Problems Sister No Known Problems Sister Heart Brother other (Transgender) Brother No Known Problems Brother No Known Problems Maternal Grandmother No Known Problems Maternal Grandfather No Known Problems Paternal Grandmother No Known Problems Paternal Grandfather Social History Tobacco Use Smoking status: Former Current packs/day: 0.00 Average packs/day: 0.5 packs/day for 30.4 years (15.2 ttl pk-yrs) Types: Cigarettes Start date: 12/30/1983 Quit date: 05/30/2014 Years since quittin.5 Smokeless tobacco: Former Types: Chew Quit date: 09/07/2024 Tobacco comments: Very few, very infrequently. Father smoked in childhood home. Vaping Use Vaping status: Former Substances: Nicotine, Flavoring Devices: Disposable Substance Use Topics Alcohol use: Yes Alcohol/week: 12.0 standard drinks of alcohol Types: 12 Cans of Beer (12oz) per week Comment: Binge drinking at times, worse with stress. Drug use: Yes Types: Marijuana Comment: Occassional marijuana, 03/2014. Cipriano (more content not included)... Normal [facility] Additional Injectionson 03- Juarez Hernández V, DO 10/07/2024 2:09 PM Additional Injections for medial epicondylitis 10/07/2024 2:03 PM The procedure site was prepped in the usual sterile fashion. Medications: 6 mg betamethasone acetate-betamethasone sodium phosphate 6 mg/mL Anesthetics: 2 mL lidocaine (PF) 10 mg/mL (1 %); 2 mL BUPivacaine (PF) 0.5 % (5 mg/mL) Outcome: tolerated well, no immediate complications Post-injection instructions were reviewed with the patient and the patient voiced understanding of these instructions. Informed Consent Consent Obtained: Verbal [place] Protocol SIGN IN TIME OUT [facility] CNOVon 10-07-2024 CNOV Office Visit (FRWS ) BETHANY MONTALVO ([id number]) 1965 M Date Time Provider Department 10/07/24 1:30 PM JUAREZ HERNÁNDEZ V [facility] During your visit today, we recorded the following information about you: Bethany Owens MA 10/07/2024 2:09 PM Signed AMB ROOMING INTAKE FLOWSHEET DATA Pain Pain Level: 7 Pain Location: Elbow-Right Description: Aching, Burning, Sharp, Sore Duration Amount of Time: 3 Duration Units: Months Frequency: Intermittent Intervention/Comfort measure: Medication, Relaxation, Support surface Patient here today for right elbow pain off and on since June 2024. He fell and slammed his elbow into a stainless steel work station. He is right hand dominant. Does not work outside the home. X-ray on 07/09/2024. Juarez Hernández V, DO 10/07/2024 2:09 PM Signed SERVICE DATE: October 07, 2024 PCP: Keren Kwon APRN.DIGITAL SALES MANAGER Subjective Patient ID: Bethany is a 58 year old male. Chief Complaint: Patient presents with: Right elbow pain PAIN EVALUATION 10/04/2024 1227 10/05/2024 1721 Pain Level: 7 7 Pain Location: Elbow-Right Elbow-Right Description: Aching;Burning;Sharp;Sore Aching;Burning;Sharp;Sore Duration Amount of Time: 3 3 Duration Units: Months Months Frequency: Intermittent Intermittent Intervention/Comfort measure: Medication;Relaxation;Support surface Medication;Relaxation;Support surface HPI Patient presents today with right medial elbow pain x 3 months. He states he hit his elbow on a piece of stainless steel several months ago since that time he has been having pain along the medial aspect of the elbow. 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 Chronic alcohol abuse Chronic insomnia Coronary artery disease due to lipid rich plaque CSF abnormal Current severe episode of major depressive disorder without psychotic features, unspecified whether recurrent (HCC) Essential hypertension GERD (gastroesophageal reflux disease) GERD with esophagitis 01/29/2019 HTN (hypertension) Hypertriglyceridemia Hypomagnesemia Moderate hypertension Renal insufficiency Syncope Tubular adenoma of colon 01/29/2019 PAST SURGICAL HISTORY Procedure Laterality Date COLONOSCOPY FLX DX W/COLLJ SPEC WHEN PFRMD 01/12/2019 Colonoscopy CRANIO/MAXILLO-FACIAL SURGERY 1989 orbital blow out fracture/ [place] ESOPHAGOGASTRODUODENOSCOPY TRANSORAL DIAGNOSTIC 01/12/2019 EGD PTCA SNGL VSSL LC 11/21/2017 JUSTIN left circ TONSILLECTOMY HX TREAT SHOULDERBLADE FRACTURE UPPER GI ENDOSCPY, W/BIOPSY, SNGL OR MULT 01/12/2019 FAMILY HISTORY Problem Relation Age of Onset Psychiatry Mother Heart Mother NM 53 Heart Father NM 51 Colon Cancer Father other (Heart stent) Sister No Known Problems Sister No Known Problems Sister Heart Brother other (Transgender) Brother No Known Problems Brother No Known Problems Maternal Grandmother No Known Problems Maternal Grandfather No Known Problems Paternal Grandmother No Known Problems Paternal Grandfather Social History Tobacco Use Smoking status: Former Current packs/day: 0.00 Average packs/day: 0.5 packs/day for 30.4 years (15.2 ttl pk-yrs) Types: Cigarettes Start date: 12/30/1983 Quit date: 05/30/2014 Years since quittin.3 Smokeless tobacco: Former Types: Chew Quit date: 09/07/2024 Tobacco comments: Very few, very infrequently. Father smoked in childhood home. Vaping Use Vaping status: Former Substances: Nicotine, Flavoring Devices: Disposable Substance Use Topics Alcohol use: Yes Alcohol/week: 12.0 standard drinks of alcohol Types: 12 Cans of Beer (12oz) per week Comment: Binge drinking at times, worse with stress. Drug use: Yes Types: Marijuana Comment: Occassional marijuana, 03/2014. Huffed spray paint and glue briefly, ages 8-9. Whippets in mid to late teens. TO ALLERGIES Allergen Reactions Sudafed [Pseudoephe* Other: See Comments Prostate infection MEDICATIONS: cyclobenzaprine (FLEXERIL) 10 mg tablet Take 1 tablet by mouth once daily as needed. carvedilol (COREG) 25 mg tablet Take 1 tablet by mouth two times a day. lisinopril (ZESTRIL) 10 mg tablet Take 1 tablet by mouth once daily. busPIRone (BUSPAR) 7.5 mg tablet Take 1 tablet by mouth three times a day. traZODone (more content not included)... Normal [facility] Free PSA [Mass/Vol]on 2024 Free PSA/Total PSA [Mass fraction] 14 % Normal [facility] Comment on above: Order Comment: Speci men Type: BLOOD SPECIMENOrdering Facility: [facility] Address: [address] [place] [address] Result Comment: Tota l and free PSA test methodology used is the Electrochemiluminescence Immunoassay by [employer]. Total or free PSA values by differing methodologies cannot be interchanged. The below table lists the probability of finding prostate cancer upon needle biopsy, for men 50 years or older and total PSA concentrations from 4.0-10.0 ng/mL. Results should be interpreted within the broader clinical context. Free PSA(%) 50-59 years 60-69 years >69 years <11 49.2% 57.5% 64.5% 11-18 26.9% 33.9% 40.8% 19-25 18.3% 23.9% 29.7% >25 9.1% 12.2% 15.8% Performed By: #### 1 0886-0 ####[facility] LABCLIA [id number] [place] [address] [place] Prostate specific Ag [Mass/Vol] 4.14 ng/mL High <2.60 [facility] Comment on above: Order Comment: Speci men Type: BLOOD SPECIMENOrdering Facility: [facility] Address: [address] [place] [address] Result Comment: Guera delarosa PSA test methodology used is the Electrochemiluminescence Immunoassay by [employer]. Total PSA values by differing methodologies cannot be interchanged. For an individual patient, the significance of a PSA level should be interpreted in a broad clinical context, including age, race, family history, digital rectal exam, prostate size, results of prior testing (prostate biopsy, free PSA, PCA3), and use of 5-alpha reductase inhibitors. Considering the high incidence of asymptomatic cancer in the general population that may not pose an ultimate risk to a patient, the decision to recommend urological evaluation or prostate biopsy should be individualized after consideration of all these factors. REFERENCE: Darryn Bertrand M.D., M.P.H., Valentino Benavidez M.D., Ph.D., Mikhail Lopez M.D., Lindsay Aguilar, M.P.H., Marcelle Garcia, Sc.D. Effect of Verification Bias on Screening for Prostate Cancer by Measurement of Prostatic Specific Antigen. N Engl J Med 2003,349:335-42. Performed By: #### 1 0886-0 ####[facility] LABCLIA [id number] [place] [address] [place] Gastroenterology Visit Repor ton 09-29-2024 Gastroenterology Visit Report [facility] Gastroenterology [address] [place] [address] OFFICE VISIT Date of Service: 09/29/24 MR#: [id number] Acct: [id number] Name: BETHANY MONTALVO Rep #: [id number] 1965 Provider: XUAN cochran Age/Sex: 58/M Location[place] [facility] [place] Status: Signed Intake Vital Signs 07/23/24 12:07 09/29/24 14:11 Height 5 ft 10 in 5 ft 10 in Weight: 206 lb 8 oz BMI 29.6 BP 110/75 Respiration 16 Pulse 113 H Pulse Oximetry (%) 96 Oxygen Delivery Method room air Intake Visit Reasons: Gastroesophageal reflux disease (GERD) Chief Complaint: SOB and cough 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: No Is patient in pain?: No Allergies pseudoephedrine Adverse Reaction (Mild, Verified 09/29/24 14:01) prostate infections Medications ???Medication ???Instructions ???Recorded ???Confirmed ???Type omeprazole 20 mg capsule,delayed 20 mg PO DAILY heart burn 06/17/14 09/29/24 History release nitroglycerin 0.4 mg sublingual 0.4 mg sublingual Q5M PRN Chest 09/29/24 Rx tablet Pain #25 tabs aspirin 81 mg tablet,delayed 81 mg PO DAILY heart #90 tabs 09/2009/29/24 Rx release atorvastatin 40 mg tablet 40 mg PO QHS #90 tabs 10/14/2306/15 Rx cyclobenzaprine 10 mg tablet 10 mg PO DAILY PRN Pain 10/14/23 0 09/29/24 History folic acid 1 mg tablet 1 mg PO DAILY 10/14/23 09/29/24 Hi story magnesium oxide 400 mg (241.3 mg 400 mg PO DAILY 10/14/23 09/29/24 History magnesium) tablet thiamine HCl (vitamin B1) 100 mg 100 mg PO DAILY 10/14/23 09/29/24 History tablet bisacodyl 5 mg tablet,delayed 5 mg PO ONCE colonoscopy prep #8 1 08/30/23 09/29/24 Rx release tabs benzocaine 15 mg-menthol 3.6 mg 1 sophia mucous membrane Q2H PRN 09/1909/29/24 History lozenges buspirone 10 mg tablet 7.5 mg PO TID depression 09/29/24 09/29/24 History buspirone 7.5 mg tablet 7.5 mg PO TID 09/29/24 09/29/24 Hi story carvedilol 25 mg tablet 25 mg PO BID 09/29/24 09/29/24 His tory lisinopril 10 mg tablet 10 mg PO QDAY 09/29/24 09/29/24 Hi story trazodone 50 mg tablet 100 mg PO QHS 09/29/24 09/29/24 Hi story Nurse's Note: Has occasional acid reflux. Some diarrhea. [facility] Medical History Personal history of colon polyps, unspecified Family history of malignant neoplasm of colon in father Anxiety Kidney disease GERD (gastroesophageal reflux disease) GI bleed Sleep apnea Former smoker Asthma Irregular heart beat Myocardial infarct TIA (transient ischemic attack) Abdominal pain Alcohol withdrawal Acute dehydration Nausea vomiting Dehydration Alcoholic hepatitis Thrombocytopenia LUZ MARIA (acute kidney injury) Alcohol withdrawal Carotid artery disease Chronic kidney disease History of non-ST elevation myocardial infarction (NSTEMI) Coronary artery disease COPD (chronic obstructive pulmonary disease) Lung nodule Tobacco use WILSON (dyspnea on exertion) Fatigue Chest pain Heart failure COPD exacerbation Hypoxia Community acquired pneumonia Alcohol intoxication Suicidal ideation Atherosclerosis of coronary artery of [place] heart without angina pectoris Depression NSTEMI (non-ST elevated myocardial infarction) Obesity (BMI 30.0-34.9) Hyperlipidemia Hypertension Alcohol abuse Chest pain Surgical History Hx of colonoscopy History of coronary artery stent placement Stented coronary artery History of tonsillectomy Hx of eye surgery Family History Mother CAD (coronary artery disease) Father CAD (coronary artery disease) Colon cancer, Onset Age: 53 At 53yrs Brother CAD (coronary artery disease) Myocardial infarction Sister CAD (coronary artery disease) Social History household members: significant other housing: apartment current occupational status: employed current occupation: [employer] Smoking Status: Former smoker alcohol intake: current alcohol intake frequency: 3 or more drinks per day substance use type: former substance user caffeine: Yes Type: coffee Number of servings: 2 what type of physical activity do you participate in: none HPI HPI Chief Complaint: SOB and cough Details: BETHANY MONTALVO, is a 58 M who presents to the office today for 10/14/2023 PLT 145, creat 1.49, AST 55 ABD US 05/13/2023 Hepatomegaly and fatty infiltration of the liver. Small gallbladder polyp. - HB and reflux is well controlled on prilosec 20mg once daily - has been on a PPI for the past 20 years - uncertain if he ever had an EGD in the past - denies dysphagia - occasional caffeine intake - former smoker - qu (more content not included)... Normal [facility] CNOVon 09-28-2024 CNOV Office Visit (FAMPWS ) BETHANY MONTALVO ([id number]) 1965 M Date Time Provider Department 09/28/24 3:40 PM [facility] your visit today, we recorded the following information about you: Pulse Respiration Blood pressure Weight 113/minute 16/minute 122/80 92.1 kg Keren Kwon APRN.DIGITAL SALES MANAGER 09/29/2024 1:38 PM Signed This is a 58 year old male who presents today with: Patient presents with: Follow Up: 4 week BP HISTORY OF PRESENT ILLNESS: Bethany Montalvo is a 58 year old male. Patient presents with: Follow Up: 4 week BP Elevated alk phos. Fatty liver. Has appt with [facility] tomorrow. Needs referral to GI faxed. Right elbow pain. Seen in urgent care in June. Started after banged the elbow at work. Had an xray in June, which was normal. Continues with swelling/pain. Right-handed. Anxiety Interested in increasing the buspar. Currently taking 5 mg three times daily as needed. Continues w/ anxiety. Insomnia Trazodone 50 mg does not seem to be working as well for patient any longer. Questioning increase. ETOH Continues to work on cutting back. HTN: BP much improved. No side effects to medication. Tolerating well. Elevated PSA Had appt w/ urology earlier today. PAST MEDICAL HISTORY: PAST MEDICAL HISTORY Diagnosis Date Alcohol abuse Anxiety and depression 07/09/2016 Bilateral carotid artery stenosis 01/14/2020 40-59% bilateral. Chronic alcohol abuse Chronic insomnia Coronary artery disease due to lipid rich plaque CSF abnormal Current severe episode of major depressive disorder without psychotic features, unspecified whether recurrent (HCC) Essential hypertension GERD (gastroesophageal reflux disease) GERD with esophagitis 01/29/2019 HTN (hypertension) Hypertriglyceridemia Hypomagnesemia Moderate hypertension Renal insufficiency Syncope Tubular adenoma of colon 01/29/2019 PAST SURGICAL HISTORY Procedure Laterality Date COLONOSCOPY FLX DX W/COLLJ SPEC WHEN PFRMD 01/12/2019 Colonoscopy CRANIO/MAXILLO-FACIAL SURGERY 1989 orbital blow out fracture/ [place] ESOPHAGOGASTRODUODENOSCOPY TRANSORAL DIAGNOSTIC 01/12/2019 EGD PTCA SNGL VSSL LC 11/21/2017 JUSTIN left circ TONSILLECTOMY HX TREAT SHOULDERBLADE FRACTURE UPPER GI ENDOSCPY, W/BIOPSY, SNGL OR MULT 01/12/2019 ALLERGIES Sudafed [Pseudoephedrine] MEDICATIONS Current Outpatient Medications Medication Sig carvedilol (COREG) 25 mg tablet Take 1 tablet by mouth two times a day. lisinopril (ZESTRIL) 10 mg tablet Take 1 tablet by mouth once daily. busPIRone (BUSPAR) 5 mg tablet Take 1 tablet by mouth three times a day as needed. benzocaine-menthol (CEPACOL) 15-3.6 mg lozg Use 1 Lozenge as instructed every 2 hours as needed. atorvastatin (LIPITOR) 40 mg tablet Take 1 tablet by mouth daily at bedtime. aspirin, enteric coated (ECOTRIN LOW STRENGTH) 81 mg EC tablet Take 1 tablet by mouth once daily. omeprazole (PRILOSEC) 20 mg capsule Take 1 capsule by mouth daily before breakfast. 1/2 hr before meal. magnesium oxide 400 mg magnesium cap Take 1 capsule by mouth three times a day. thiamine (VITAMIN B1) 100 mg tablet Take 1 tablet by mouth once daily. folic acid 1 mg tablet Take 1 tablet by mouth once daily. traZODone (DESYREL) 50 mg tablet Take 1 tablet by mouth at bedtime as needed. cyclobenzaprine (FLEXERIL) 10 mg tablet Take 1 tablet by mouth once daily as needed. No current facility-administered medications for this visit. FAMILY HISTORY Problem Relation Age of Onset Psychiatry Mother Heart Mother NM 53 Heart Father [place] 51 Colon Cancer Father other (Heart stent) Sister No Known Problems Sister No Known Problems Sister Heart Brother other (Transgender) Brother No Known Problems Brother No Known Problems Maternal Grandmother No Known Problems Maternal Grandfather No Known Problems Paternal Grandmother No Known Problems Paternal Grandfather Social History Tobacco Use Smoking status: Former Current packs/day: 0.00 Average packs/day: 0.5 packs/day for 30.4 years (15.2 ttl pk-yrs) Types: Cigarettes Start date: 12/30/1983 Quit date: 05/30/2014 Years since quittin.3 Smokeless tobacco: Former Types: Chew Quit date: 09/07/2024 Tobacco comments: Very few, very infrequently. Father smoked in childhood home. Vaping Use Vaping status: Former Substances: Nicotine, Flavoring Devices: Disposable Substance Use Topics Alcohol use: Yes Alcohol/week: 12.0 standard drinks of alcohol Types: 12 Cans of Beer (12oz) per week Comment: Binge drinking at times, worse with stress. Drug use: Yes Types: Marijuana Comment: Occassional marijuana, 03/2014. Huffed spray paint and glue briefly, ages 8-9. Whippets in mid to late teens. TO EXAM: BP 122/80 Pulse 113 Resp 16 Wt 92.1 kg (203 lb) SpO2 96% BMI 29.13 kg/m? (more content not included)... [facility] BETH[facility] MONTALVO ([id number]) 1965 M Date Time Provider Department 09/28/24 2:00 PM CHRIS DEVLIN UROLEVAR During your visit today, we recorded the following information about you: Temperature Pulse Respiration Blood pressure 96.9 degrees 80/minute 18/minute 118/80 Weight Height 91.2 kg 1.778 m Lindsay Fonseca LPN 09/28/2024 1:06 PM Signed Verified name and date of . CC Post Void Residual HPI: Ana hardin is here now for an appointment with Xavier Perez APRN, DNP Procedure: Explained procedure to patient and verbalizes understanding. Performed a PVR. Patient urinated and instructed to empty bladder as much as possible just prior to having PVR done using bladder ultrasound scanner. Results of scan: 0 mL The patient tolerated the procedure well. Plan: Appointment with Chris. Chris Devlin APRN.MARLY VILLEDA 09/28/2024 1:00 PM Addendum Check a Free PSA blood test. No ejaculation or strenuous exercise 48 hours prior to PSA blood test. Will send [facility] message with result Pending PSA results consider MRI of Prostate. follow up in 1 month for urinary symptoms. Discussed the implications/etiologies of elevated PSA. Discussed possible causes of elevated PSA: including BPH, recent ejaculation, normal aging, prostatitis (infection/inflammation), UTI, Urinary retention and prostate cancer. Talked about approaches which would include surveillance with PSA rechecks at regular intervals, MRI of prostate followed by biopsy, or standard TRUS Bx. After discussing the pros and cons of each approach we decided to proceed with PSA BLOOD TEST Preparation for a Prostate-Specific Antigen (PSA) Blood Test The PSA blood test is a routine screening test for prostate cancer. While there is typically no special preparation required, here are some general guidelines to ensure accurate results: 1. Do not have your PSA level checked if you have had a recent urinary tract infection or prostate procedure within the past 30 days. 2. Avoid Sexual Activity: Refrain from ejaculation for 48 hours before the test. This is because sexual activity can temporarily increase PSA levels. 3. Avoid Strenuous Exercise: Avoid vigorous exercise for 24 hours before the test, as it can also raise PSA levels. The PSA blood test is used to screen for prostate cancer. It is not an exact test (because other things can cause the PSA to be high), but the general principle is that the higher the number, the higher the risk of prostate cancer. The lower the number, the lower the risk of prostate cancer. Usually a cut-off of ?4? is used. This means that traditionally if a PSA is less than 4, it is normal and if it is higher than 4 it is not normal. Having said that, the [facility] uses a lower cut-off of 2.59, so it the PSA is higher than 2.59, it is flagged as being high in the system. In reality, there is no one value of PSA that is totally protective against prostate cancer. The higher the number, the higher the risk. The lower the number, the lower the risk. Prostate Cancer Risk based off of PSA levels: PSA < or = 1.0 ng/mL 8.8% Risk of prostate cancer on biopsy PSA 1.1 - 2.0 ng/mL 17.0% Risk of prostate cancer on biopsy PSA 2.1 - 3.0 ng/mL 23.9% Risk of prostate cancer on biopsy PSA 3.1 - 4.0 ng/mL 26.9% Risk of prostate cancer on biopsy PSA 4.1 -10.0 ng/mL 47.0% Risk of prostate cancer on biopsy PSA >10.0 ng/mL 58.2% Risk of prostate cancer on biopsy Return to the clinic or seek care at Express/Urgent Care for any worsening signs or symptoms: such as fevers, chills, worsening pain, gross blood in urine or worsening urinary symptoms. For severe symptoms seek care at the closest ER. Plan of care, medicaiton side effects and management reviewed with patient. Healthy Habits: Recommend regular physical activity, nutrition and healthy eating habits. Consume a variety of foods every day focusing on fruits, vegetables and lean meats). Eat foods low in fat, saturated fat and cholesterol. Eat a limited amount of salt and sodium. Drink adequate amounts of water and limit sugary drinks. Exercise portion control in meal selection. Establish a mindset of a wellness approach to health. Thank you for allowing me to provide your care today. I look forward to seeing you again and maintaining your health. Chris Devlin DNP, CHRISTIANA Department of Urology [facility] Chris Devlin APRN.MARLY VILLEDA 09/28/2024 1:06 PM Signed [facility] PSA/PROSTATE EVALUATION HISTORY AND PHYSICAL EXAM PATIENT: Bethany Montalvo (58 year old) PCP: Keren Kwon APRN.CHRISTIANA REFERRING Provider: Keren Kwon APRN.C* === Consultation requested by Dr. Keren Kwon [id number] [facility] [id number] for an opinion regarding Elevated PSA and my final recommendations will be co (more content not included)... Normal [facility] UA DIP, URINE (POC)on 2024 BILIRUBIN UA (POCT) Negative Negative [facility] CLARITY UA (POCT) Slightly Cloudy Cl [facility] COLOR UA (POCT) Dark [facility] GLUCOSE UA (POCT) Negative Negative mg/dL [facility] Hemoglobin Ql (U) Negative Negative [facility] KETONE UA (POCT) Negative Negative mg/dL [facility] LEUKOCYTES [facility] (POCT) Negative [facility]) Negative Negative [facility] PH UA (POCT) 5.5 4.5 - 8.0 [facility] Protein Ql (U) Negative Negative mg/dL [facility] SPECIFIC GRAVITY UA (POCT) 1.025 1.005 - 1.030 [facility] UROBILINOGEN UA (POCT) 0.2 Normal E.U./dL [facility] Location:[facility], [address] , [place], [place], [id number] [place] [address] POINT OF CARE [facility] Valdo 09-25-2024 ISAIAS Telephone (UROLWS) BETHANY MONTALVO ([id number]) 1965 M Date Time Provider Department 09/25/24 CHRIS DEVLIN During your visit today, we recorded the following information about you: Lindsay Fonseca LPN 09/25/2024 1:03 PM Signed Called patient regarding appointment on Saturday due to provider having a meeting between [phone]. Patient offered times to come into clinic and will come in at 1230 for appointment. HARMONY Nino Daniel, APRN.CNP, DNP 09/25/2024 2:36 PM Signed Noted. Chris Devlin APRN.CNP, DNP Allergies As of Date: 09/25/2024 Noted Allergy Reaction SUDAFED (PSEUDOEPHEDRINE) 06/26/2016 14 - Other: See Comments Comments: Prostate infection Date Reviewed: 08/31/2024 Reviewed by: Donna Richey LPN - Fully Assessed Reason for Visit: Appointment [186] Prescriptions as of 09/25/2024 - carvedilol (COREG) 25 mg tablet Take 1 tablet by mouth two times a day. - lisinopril (ZESTRIL) 10 mg tablet Take 1 tablet by mouth once daily. - busPIRone (BUSPAR) 5 mg tablet Take 1 tablet by mouth three times a day as needed. - benzocaine-menthol (CEPACOL) 15-3.6 mg lozg Use 1 Lozenge as instructed every 2 hours as needed. - atorvastatin (LIPITOR) 40 mg tablet Take 1 tablet by mouth daily at bedtime. - aspirin, enteric coated (ECOTRIN LOW STRENGTH) 81 mg EC tablet Take 1 tablet by mouth once daily. - omeprazole (PRILOSEC) 20 mg capsule Take 1 capsule by mouth daily before breakfast. 1/2 hr before meal. - magnesium oxide 400 mg magnesium cap Take 1 capsule by mouth three times a day. - thiamine (VITAMIN B1) 100 mg tablet Take 1 tablet by mouth once daily. - folic acid 1 mg tablet Take 1 tablet by mouth once daily. - traZODone (DESYREL) 50 mg tablet Take 1 tablet by mouth at bedtime as needed. - cyclobenzaprine (FLEXERIL) 10 mg tablet Take 1 tablet by mouth once daily as needed. Problem List As Of Date 09/25/2024 Noted Resolved Moderate hypertension [I10] 08/24/2006 Anxiety and depression [F41.9, F32.A] 02/05/2014 Seasonal allergies [J30.2] 02/05/2014 Renal insufficiency [N28.9] 02/05/2014 History of skull fracture [Z87.81] 02/05/2014 Hypertriglyceridemia [E78.1] 02/05/2014 Chronic alcohol abuse [F10.10] 02/05/2014 Unilateral inguinal hernia without obstruction *07/09/2016 NSTEMI (non-ST elevated myocardial infarction) *11/29/2017 Presence of drug-eluting stent in left circumfl*11/29/2017 Acute right-sided low back pain without sciatic*03/16/2019 Bilateral carotid artery stenosis [I65.23] 01/14/2020 GERD without esophagitis [K21.9] 11/05/2022 Encounter Status:Closed by LINDSAY FONSECA on 09/25/24 [facility] CNOVon 08-31-2024 CNOV Office Visit (FAMPWS ) BETHANY MONTALVO ([id number]) 1965 M Date Time Provider Department 08/31/24 3:20 PM KEREN KWON During your visit today, we recorded the following information about you: Pulse Respiration Blood pressure 114/minute 16/minute 153/97 Keren Kwon APRN.DIGITAL SALES MANAGER 08/31/2024 8:46 PM Signed This is a 58 year old male who presents today with: Patient presents with: Recheck: 1 week follow up HISTORY OF PRESENT ILLNESS: Bethany Montalvo is a 58 year old male. Patient presents with: Recheck: 1 week follow up HTN: Patient is compliant with meds Yes Monitors bp at home: No. Denies side effects: sometimes will get lightheaded when standing up. Chest pain: No. Dyspnea: No. Edema: No. Palpitations: No. Syncope: No. Headache: No. Dizziness: No. 4 beers last night ETOH use Considering treatment for alcohol Has been drinking daily Has been dealing with a lot of mental health issues On the verge of homelessness Lost his job recently due to knee pain. Thoughts of not wanting to wake up the next morning Does not have current plans to end his life Denies current SI/HI Currently taking Buspar, sometimes it helps Used to follow with psychiatric at the counseling center at [place] Is interested and agreeable to following with a counselor again at [place]. Left knee pain has been a lot better PAST MEDICAL HISTORY: PAST MEDICAL HISTORY Diagnosis Date Alcohol abuse Anxiety and depression 07/09/2016 Bilateral carotid artery stenosis 01/14/2020 40-59% bilateral. Chronic alcohol abuse Chronic insomnia Coronary artery disease due to lipid rich plaque CSF abnormal GERD (gastroesophageal reflux disease) GERD with esophagitis 01/29/2019 HTN (hypertension) Hypertriglyceridemia Hypomagnesemia Moderate hypertension Renal insufficiency Syncope Tubular adenoma of colon 01/29/2019 PAST SURGICAL HISTORY Procedure Laterality Date COLONOSCOPY FLX DX W/COLLJ SPEC WHEN PFRMD 01/12/2019 Colonoscopy CRANIO/MAXILLO-FACIAL SURGERY 1989 orbital blow out fracture/ [place] ESOPHAGOGASTRODUODENOSCOPY TRANSORAL DIAGNOSTIC 01/12/2019 EGD PTCA SNGL VSSL LC 11/21/2017 JUSTIN left circ TONSILLECTOMY HX TREAT SHOULDERBLADE FRACTURE UPPER GI ENDOSCPY, W/BIOPSY, SNGL OR MULT 01/12/2019 ALLERGIES Sudafed [Pseudoephedrine] MEDICATIONS Current Outpatient Medications Medication Sig carvedilol (COREG) 12.5 mg tablet Take 1 tablet by mouth two times a day. lisinopril (ZESTRIL) 10 mg tablet Take 1 tablet by mouth once daily. predniSONE (DELTASONE) 10 mg tablet Take 4 tabs daily x 3 days, then 3 tabs x 3 days, 2 tabs x 3 days, then 1 tab x3 days with food. busPIRone (BUSPAR) 5 mg tablet Take 1 tablet by mouth three times a day as needed. benzocaine-menthol (CEPACOL) 15-3.6 mg lozg Use 1 Lozenge as instructed every 2 hours as needed. atorvastatin (LIPITOR) 40 mg tablet Take 1 tablet by mouth daily at bedtime. aspirin, enteric coated (ECOTRIN LOW STRENGTH) 81 mg EC tablet Take 1 tablet by mouth once daily. omeprazole (PRILOSEC) 20 mg capsule Take 1 capsule by mouth daily before breakfast. 1/2 hr before meal. magnesium oxide 400 mg magnesium cap Take 1 capsule by mouth three times a day. thiamine (VITAMIN B1) 100 mg tablet Take 1 tablet by mouth once daily. folic acid 1 mg tablet Take 1 tablet by mouth once daily. traZODone (DESYREL) 50 mg tablet Take 1 tablet by mouth at bedtime as needed. cyclobenzaprine (FLEXERIL) 10 mg tablet Take 1 tablet by mouth once daily as needed. No current facility-administered medications for this visit. FAMILY HISTORY Problem Relation Age of Onset Psychiatry Mother Heart Mother [place] 53 Heart Father [place] 51 Colon Cancer Father Social History Tobacco Use Smoking status: Former Current packs/day: 0.00 Average packs/day: 0.5 packs/day for 30.4 years (15.2 ttl pk-yrs) Types: Cigarettes Start date: 12/30/1983 Quit date: 05/30/2014 Years since quittin.2 Smokeless tobacco: Current Types: Chew Tobacco comments: Very few, very infrequently. Father smoked in childhood home. Vaping Use Vaping status: Never Used Substance Use Topics Alcohol use: Yes Alcohol/week: 84.0 standard drinks of alcohol Types: 84 Cans of Beer (12oz) per week Comment: Binge drinking at times, worse with stress. Drug use: Yes Types: Marijuana Comment: Occassional marijuana, 03/2014. Huffed spray paint and glue briefly, ages 8-9. Whippets in mid to late teens. TO REVIEW OF SYSTEMS PAIN ASSESSMENT: Negative for pain, history of chronic pain, or current treatment for a chronic pain condition. GENERAL: No weight loss, malaise or fevers HEENT: Negative for frequent or significant headaches, No changes in hearing or vision, no nose bleeds or other nasal problems RESPIRATORY: Negative for cough, hemoptysis, wheezing, COPD, (more content not included)... Normal [facility] 08-28-2024 [facility] Telephone ([facility]) BETHANY MONTALVO ([id number]) 1965 Date Time Provider Department 08/28/24 KEREN KWON [facility] During your visit today, we recorded the following information about you: Keren Kwon APRN.DIGITAL SALES MANAGER 08/28/2024 3:37 PM Signed Can please let patient know that I received his ultrasound results. It was consistent with fatty liver. However, it also is showing that his liver and spleen are enlarged. I would like to have him see gastroenterology for further evaluation of this. Donna Richey LPN 08/28/2024 4:04 PM Signed Phoned pt, no answer, unable to leave message d/t voicemail not set up yet. HARMONY Forrester Jamie, LPN 08/31/2024 3:35 PM Signed Pt notified of results/provider instructions at today. Donna Richey LPN Allergies As of Date: 08/28/2024 Noted Allergy Reaction SUDAFED (PSEUDOEPHEDRINE) 06/26/2016 14 - Other: See Comments Comments: Prostate infection Date Reviewed: 08/24/2024 Reviewed by: Donna Richey LPN - Fully Assessed Reason for Visit: Results [95] Primary Visit Diagnosis:Hepatosplenomegaly [R16.2] Order(s):CONSULT TO GASTROENTEROLOGY [9003] Order #: [id number]: 1 FUTURE Prescriptions as of 08/31/2024 - carvedilol (COREG) 12.5 mg tablet Take 1 tablet by mouth two times a day. - lisinopril (ZESTRIL) 10 mg tablet Take 1 tablet by mouth once daily. - predniSONE (DELTASONE) 10 mg tablet Take 4 tabs daily x 3 days, then 3 tabs x 3 days, 2 tabs x 3 days, then 1 tab x3 days with food. - busPIRone (BUSPAR) 5 mg tablet Take 1 tablet by mouth three times a day as needed. - benzocaine-menthol (CEPACOL) 15-3.6 mg lozg Use 1 Lozenge as instructed every 2 hours as needed. - atorvastatin (LIPITOR) 40 mg tablet Take 1 tablet by mouth daily at bedtime. - aspirin, enteric coated (ECOTRIN LOW STRENGTH) 81 mg EC tablet Take 1 tablet by mouth once daily. - omeprazole (PRILOSEC) 20 mg capsule Take 1 capsule by mouth daily before breakfast. 1/2 hr before meal. - magnesium oxide 400 mg magnesium cap Take 1 capsule by mouth three times a day. - thiamine (VITAMIN B1) 100 mg tablet Take 1 tablet by mouth once daily. - folic acid 1 mg tablet Take 1 tablet by mouth once daily. - traZODone (DESYREL) 50 mg tablet Take 1 tablet by mouth at bedtime as needed. - cyclobenzaprine (FLEXERIL) 10 mg tablet Take 1 tablet by mouth once daily as needed. Problem List As Of Date 08/28/2024 Noted Resolved Moderate hypertension [I10] 08/24/2006 Anxiety and depression [F41.9, F32.A] 02/05/2014 Seasonal allergies [J30.2] 02/05/2014 Renal insufficiency [N28.9] 02/05/2014 History of skull fracture [Z87.81] 02/05/2014 Hypertriglyceridemia [E78.1] 02/05/2014 Chronic alcohol abuse [F10.10] 02/05/2014 Unilateral inguinal hernia without obstruction *07/09/2016 NSTEMI (non-ST elevated myocardial infarction) *11/29/2017 Presence of drug-eluting stent in left circumfl*11/29/2017 Acute right-sided low back pain without sciatic*03/16/2019 Bilateral carotid artery stenosis [I65.23] 01/14/2020 GERD without esophagitis [K21.9] 11/05/2022 Encounter Status:Closed by DONNA RICHEY on 08/31/24 Normal [facility] No Panel Informationon 08-27 IMPRESSION: 1. Fatty liver. Small hypoechoic area in the liver adjacent to the gallbladder probably represents an area of focal fatty sparing. 2. Hepatosplenomegaly Numberer And Wirer: JOHN Transcribe Date/Time: Aug 27 2024 4:28P Dictated by : CRISTIAN BENZ DO This examination was interpreted and the report reviewed and electronically signed by: CRISTIAN BENZ DO on Aug 27 2024 4:31PM [facility] DIVISION OF RADIOLOGY No Panel InformationOrdered By: Ccf Provider on 08-27-2024 [facility] US ABD RIGHT UPPER QUADRANTo n 08-27-2024 US ABD RIGHT UPPER QUADRANT * * *Final Report* * * DATE OF EXAM: Aug 27 2024 2:16PM [facility] 1032 - US ABD RIGHT UPPER QUADRANT / PROCEDURE REASON: Elevated alkaline phosphatase level * * * * Physician Interpretation * * * * EXAMINATION: RIGHT UPPER QUADRANT ULTRASOUND /ULTRASOUND SPLEEN HISTORY: Elevated alkaline phosphatase level Elevated alk phos. + ETOH use. TECHNIQUE: Sonography of the right upper quadrant was performed. Images were obtained and stored in a permanent archive. MQ: URUQ_1 COMPARISON: 10/17/2018 RESULT: Pancreas: Pancreas not well seen due to overlying bowel gas. Liver: Measures 18.1 cm Echogenicity: Heterogeneous Surface contour: Smooth Lesions: None seen Biliary: No intrahepatic bile duct dilatation CBD: Normal in size at the hilum. Gallbladder: -Contents: No stones or sludge -Wall: No gallbladder wall thickening -Other: No pericholecystic edema Right Kidney: Grossly unremarkable Ascites: No ascites is seen Spleen: Measures 15.7 cm Main portal vein: Unremarkable IMPRESSION: 1. Fatty liver. Small hypoechoic area in the liver adjacent to the gallbladder probably represents an area of focal fatty sparing. 2. Hepatosplenomegaly Numberer And Wirer: JOHN Transcribe Date/Time: Aug 27 2024 4:28P Dictated by : CRISTIAN BENZ DO This examination was interpreted and the report reviewed and electronically signed by: CRISTIAN BENZ DO on Aug 27 2024 4:31PM EST [id number] Normal [facility] US ABD SPLEEN - NBon 025 * * *Final Report* * * DATE OF EXAM: Aug 27 2024 2:16PM [facility] 1232 - US ABD SPLEEN -NB / PROCEDURE REASON: Elevated alkaline phosphatase level * * * * Physician Interpretation * * * * EXAMINATION: RIGHT UPPER QUADRANT ULTRASOUND /ULTRASOUND SPLEEN HISTORY: Elevated alkaline phosphatase level Elevated alk phos. + ETOH use. TECHNIQUE: Sonography of the right upper quadrant was performed. Images were obtained and stored in a permanent archive. MQ: URUQ_1 COMPARISON: 10/17/2018 RESULT: Pancreas: Pancreas not well seen due to overlying bowel gas. Liver: Measures 18.1 cm Echogenicity: Heterogeneous Surface contour: Smooth Lesions: None seen Biliary: No intrahepatic bile duct dilatation CBD: Normal in size at the hilum. Gallbladder: -Contents: No stones or sludge -Wall: No gallbladder wall thickening -Other: No pericholecystic edema Right Kidney: Grossly unremarkable Ascites: No ascites is seen Spleen: Measures 15.7 cm Main portal vein: Unremarkable DIVISION OF RADIOLOGY Provider, [facility] - 08/27/2024 * * *Final Report* * * DATE OF EXAM: Aug 27 2024 2:16PM U 1232 - US ABD SPLEEN -NB / PROCEDURE REASON: Elevated alkaline phosphatase level * * * * Physician Interpretation * * * * EXAMINATION: RIGHT UPPER QUADRANT ULTRASOUND /ULTRASOUND SPLEEN HISTORY: Elevated alkaline phosphatase level Elevated alk phos. + ETOH use. TECHNIQUE: Sonography of the right upper quadrant was performed. Images were obtained and stored in a permanent archive. MQ: URUQ_1 COMPARISON: 10/17/2018 RESULT: Pancreas: Pancreas not well seen due to overlying bowel gas. Liver: Measures 18.1 cm Echogenicity: Heterogeneous Surface contour: Smooth Lesions: None seen Biliary: No intrahepatic bile duct dilatation CBD: Normal in size at the hilum. Gallbladder: -Contents: No stones or sludge -Wall: No gallbladder wall thickening -Other: No pericholecystic edema Right Kidney: Grossly unremarkable Ascites: No ascites is seen Spleen: Measures 15.7 cm Main portal vein: Unremarkable IMPRESSION IMPRESSION: 1. Fatty liver. Small hypoechoic area in the liver adjacent to the gallbladder probably represents an area of focal fatty sparing. 2. Hepatosplenomegaly Numberer And Wirer: [facility] Transcribe Date/Time: Aug 27 2024 4:28P Dictated by : CRISTIAN BENZ DO This examination was interpreted and the report reviewed and electronically signed by: CRISTIAN BENZ DO on Aug 27 2024 4:31PM EST [facility] Radiology Study observation (narrative) [facility] US ABD SPLEEN -NBon 08-27-19 US ABD SPLEEN -NB * * *Final Report* * * DATE OF EXAM: Aug 27 2024 2:16PM [facility] 1232 - US ABD SPLEEN -NB / PROCEDURE REASON: Elevated alkaline phosphatase level * * * * Physician Interpretation * * * * EXAMINATION: RIGHT UPPER QUADRANT ULTRASOUND /ULTRASOUND SPLEEN HISTORY: Elevated alkaline phosphatase level Elevated alk phos. + ETOH use. TECHNIQUE: Sonography of the right upper quadrant was performed. Images were obtained and stored in a permanent archive. MQ: URUQ_1 COMPARISON: 10/17/2018 RESULT: Pancreas: Pancreas not well seen due to overlying bowel gas. Liver: Measures 18.1 cm Echogenicity: Heterogeneous Surface contour: Smooth Lesions: None seen Biliary: No intrahepatic bile duct dilatation CBD: Normal in size at the hilum. Gallbladder: -Contents: No stones or sludge -Wall: No gallbladder wall thickening -Other: No pericholecystic edema Right Kidney: Grossly unremarkable Ascites: No ascites is seen Spleen: Measures 15.7 cm Main portal vein: Unremarkable IMPRESSION: 1. Fatty liver. Small hypoechoic area in the liver adjacent to the gallbladder probably represents an area of focal fatty sparing. 2. Hepatosplenomegaly Numberer And Wirer: [facility] Transcribe Date/Time: Aug 27 2024 4:28P Dictated by : CRISTIAN BENZ DO This examination was interpreted and the report reviewed and electronically signed by: CRISTIAN BENZ DO on Aug 27 2024 4:31PM EST [id number] Normal [facility] US Abdomen RUQon 08-27-2024 * * *Final Report* * * DATE OF EXAM: Aug 27 2024 2:16PM [facility] 1032 - US ABD RIGHT UPPER QUADRANT / PROCEDURE REASON: Elevated alkaline phosphatase level * * * * Physician Interpretation * * * * EXAMINATION: RIGHT UPPER QUADRANT ULTRASOUND /ULTRASOUND SPLEEN HISTORY: Elevated alkaline phosphatase level Elevated alk phos. + ETOH use. TECHNIQUE: Sonography of the right upper quadrant was performed. Images were obtained and stored in a permanent archive. MQ: URUQ_1 COMPARISON: 10/17/2018 RESULT: Pancreas: Pancreas not well seen due to overlying bowel gas. Liver: Measures 18.1 cm Echogenicity: Heterogeneous Surface contour: Smooth Lesions: None seen Biliary: No intrahepatic bile duct dilatation CBD: Normal in size at the hilum. Gallbladder: -Contents: No stones or sludge -Wall: No gallbladder wall thickening -Other: No pericholecystic edema Right Kidney: Grossly unremarkable Ascites: No ascites is seen Spleen: Measures 15.7 cm Main portal vein: Unremarkable DIVISION OF RADIOLOGY Provider, [facility] - 08/27/2024 * * *Final Report* * * DATE OF EXAM: Aug 27 2024 2:16PM [facility] 1032 - US ABD RIGHT UPPER QUADRANT / PROCEDURE REASON: Elevated alkaline phosphatase level * * * * Physician Interpretation * * * * EXAMINATION: RIGHT UPPER QUADRANT ULTRASOUND /ULTRASOUND SPLEEN HISTORY: Elevated alkaline phosphatase level Elevated alk phos. + ETOH use. TECHNIQUE: Sonography of the right upper quadrant was performed. Images were obtained and stored in a permanent archive. MQ: URUQ_1 COMPARISON: 10/17/2018 RESULT: Pancreas: Pancreas not well seen due to overlying bowel gas. Liver: Measures 18.1 cm Echogenicity: Heterogeneous Surface contour: Smooth Lesions: None seen Biliary: No intrahepatic bile duct dilatation CBD: Normal in size at the hilum. Gallbladder: -Contents: No stones or sludge -Wall: No gallbladder wall thickening -Other: No pericholecystic edema Right Kidney: Grossly unremarkable Ascites: No ascites is seen Spleen: Measures 15.7 cm Main portal vein: Unremarkable IMPRESSION IMPRESSION: 1. Fatty liver. Small hypoechoic area in the liver adjacent to the gallbladder probably represents an area of focal fatty sparing. 2. Hepatosplenomegaly Numberer And Wirer: [facility] Transcribe Date/Time: Aug 27 2024 4:28P Dictated by : CRISTIAN BENZ DO This examination was interpreted and the report reviewed and electronically signed by: CRISTIAN BENZ DO on Aug 27 2024 4:31PM EST [facility] Radiology Study observation (narrative) [facility] CNOVon 08-24-2024 CNOV Office Visit (FAMPWS ) BETHANY MONTALVO ([id number]) 1965 M Date Time Provider Department 08/24/24 11:20 AM KEREN KWON During your visit today, we recorded the following information about you: Pulse Respiration Blood pressure 132/minute 16/minute 179/117 Keren Kwon APRN.DIGITAL SALES MANAGER 08/24/2024 12:45 PM Signed This is a 58 year old male who presents today with: Patient presents with: Recheck: Follow up L knee pain HISTORY OF PRESENT ILLNESS: Bethanyabbie Montalvo is a 58 year old male. Patient presents with: Recheck: Follow up L knee pain Pt presents today to follow-up on the left knee pain. Was seen 08/11. Suspected gout. Started prednisone, however misunderstood directions. Refers that the prednisone did help with the symptoms. Swelling and pain improved. Still with some pain around the kneecap. Gait is better. Knee xray couldn't conclusively r/o fx. Cut back ETOH. Had one yesterday and one on Saturday. Going to be getting back into the 12 step program. Has ultrasound scheduled 08/27. HTN BP continues to be quite elevated today. At last visit, we increased his carvedilol to 6.25 mg BID. No side effects and reports that he has been compliant with this. Elevated PSA: Has appt scheduled with urology in September. PAST MEDICAL HISTORY: PAST MEDICAL HISTORY Diagnosis Date Alcohol abuse Anxiety and depression 07/09/2016 Bilateral carotid artery stenosis 01/14/2020 40-59% bilateral. Chronic alcohol abuse Chronic insomnia Coronary artery disease due to lipid rich plaque CSF abnormal GERD (gastroesophageal reflux disease) GERD with esophagitis 01/29/2019 HTN (hypertension) Hypertriglyceridemia Hypomagnesemia Moderate hypertension Renal insufficiency Syncope Tubular adenoma of colon 01/29/2019 PAST SURGICAL HISTORY Procedure Laterality Date COLONOSCOPY FLX DX W/COLLJ SPEC WHEN PFRMD 01/12/2019 Colonoscopy CRANIO/MAXILLO-FACIAL SURGERY 1989 orbital blow out fracture/ [place] ESOPHAGOGASTRODUODENOSCOPY TRANSORAL DIAGNOSTIC 01/12/2019 EGD PTCA SNGL VSSL LC 11/21/2017 JUSTIN left circ TONSILLECTOMY HX TREAT SHOULDERBLADE FRACTURE UPPER GI ENDOSCPY, W/BIOPSY, SNGL OR MULT 01/12/2019 ALLERGIES Sudafed [Pseudoephedrine] MEDICATIONS Current Outpatient Medications Medication Sig predniSONE (DELTASONE) 10 mg tablet Take 4 tabs daily x 3 days, then 3 tabs x 3 days, 2 tabs x 3 days, then 1 tab x3 days with food. carvedilol (COREG) 6.25 mg tablet Take 1 tablet by mouth two times a day. busPIRone (BUSPAR) 5 mg tablet Take 1 tablet by mouth three times a day as needed. benzocaine-menthol (CEPACOL) 15-3.6 mg lozg Use 1 Lozenge as instructed every 2 hours as needed. atorvastatin (LIPITOR) 40 mg tablet Take 1 tablet by mouth daily at bedtime. aspirin, enteric coated (ECOTRIN LOW STRENGTH) 81 mg EC tablet Take 1 tablet by mouth once daily. omeprazole (PRILOSEC) 20 mg capsule Take 1 capsule by mouth daily before breakfast. 1/2 hr before meal. magnesium oxide 400 mg magnesium cap Take 1 capsule by mouth three times a day. thiamine (VITAMIN B1) 100 mg tablet Take 1 tablet by mouth once daily. folic acid 1 mg tablet Take 1 tablet by mouth once daily. traZODone (DESYREL) 50 mg tablet Take 1 tablet by mouth at bedtime as needed. cyclobenzaprine (FLEXERIL) 10 mg tablet Take 1 tablet by mouth once daily as needed. No current facility-administered medications for this visit. FAMILY HISTORY Problem Relation Age of Onset Psychiatry Mother Heart Mother NM 53 Heart Father [place] 51 Colon Cancer Father Social History Tobacco Use Smoking status: Former Current packs/day: 0.00 Average packs/day: 0.5 packs/day for 30.4 years (15.2 ttl pk-yrs) Types: Cigarettes Start date: 12/30/1983 Quit date: 05/30/2014 Years since quittin.2 Smokeless tobacco: Current Types: Chew Tobacco comments: Very few, very infrequently. Father smoked in childhood home. Vaping Use Vaping status: Never Used Substance Use Topics Alcohol use: Yes Alcohol/week: 84.0 standard drinks of alcohol Types: 84 Cans of Beer (12oz) per week Comment: Binge drinking at times, worse with stress. Drug use: Yes Types: Marijuana Comment: Occassional marijuana, 03/2014. Huffed spray paint and glue briefly, ages 8-9. Whippets in mid to late teens. TO EXAM: BP 174/100 Pulse (!) 132 Resp 16 SpO2 97% PHYSICAL EXAM: General Appearance: Well appearing, alert, in no acute distress, well-hydrated, well nourished.. Skin: Skin color, texture, turgor normal, no suspicious rashes or lesions. Head: Normocephalic, no masses, lesions, tenderness or abnormalities. Eyes: Anicteric sclera. Extraocular movements are intact. . Lungs: Lungs clear to auscultation. No wheezing, rhonchi, rales.. Heart: RRR without murmur, gallop, or rubs. No ectopy. Tachycardic. Extremities: left knee w (more content not included)... Normal [facility] Valdo 08-12-2024 [facility] Telephone (FAMPWS) BETHANY MONTALVO ([id number]) 1965 M Date Time Provider Department 08/12[facility] During your visit today, we recorded the following information about you: Keren Kwon APRN.CHRISTIANA 08/12/2024 1:01 PM Addendum Can please let patient know that I received most of his labs back. His uric acid level is elevated, so it does make it suspicious that he is having a flare of gout. The prednisone should help with this. His PSA continues to be elevated. We do need to send him to urology to have this further evaluated. The referral is placed, please help schedule. I'm still waiting on one of the lab tests and the xray results. Keren Kwon APRN.Donna Stanton LPN 08/12/2024 1:47 PM Signed Pt notified of results/provider response. He verbalized understanding. Please assist pt with scheduling Urology appt. HARMONY Forrester Christy, APRN.CHRISTIANA 08/14/2024 4:44 PM Signed Can please let patient know that I received the additional lab results and xray results. His alk phos elevation is coming from his liver. I would like to have him get a liver ultrasound to view his liver. His knee xray is also back. They did see an area that could represent an area that is a healing fracture. How is the knee feeling since on the prednisone? Donna Richey LPN 08/14/2024 4:53 PM Signed TC to pt, no answer, unable to leave message. Donna Richey LPN 08/19/2024 4:36 PM Signed MC message sent. HARMONY Forrester Christy, APRN.CHRISTIANA 08/21/2024 3:23 PM Signed I sent in another script for the prednisone. If using a lot of tylenol that could also lead to an elevation in the liver enzymes. However, we should still get the imaging. Please keep appt for Saturday so we can recheck the knee. Donna Richey LPN 08/21/2024 3:32 PM Signed Pt notified. He verbalized understanding. Donna Richey LPN Allergies As of Date: 08/12/2024 Noted Allergy Reaction SUDAFED (PSEUDOEPHEDRINE) 06/26/2016 14 - Other: See Comments Comments: Prostate infection Date Reviewed: 08/11/2024 Reviewed by: Donna Richey LPN - Fully Assessed Reason for Visit: Results [95] Primary Visit Diagnosis:Elevated PSA [R97.20] Other Visit Diagnosis:Elevated alkaline phosphatase level [R74.8] Order(s):CONSULT TO UROLOGY [9041] Order #: [id number]: 1 FUTURE US ABD RIGHT UPPER QUADRANT [[id number]] Order #: [id number] FUTURE predniSONE (DELTASONE) 10 mg tabletTake 4 tabs daily x 3 days, then 3 tabs x 3 days, 2 tabs x 3 days, then 1 tab x3 days with food.Disp: 30 tabletRfl: 0 Prescriptions as of 08/21/2024 - predniSONE (DELTASONE) 10 mg tablet Take 4 tabs daily x 3 days, then 3 tabs x 3 days, 2 tabs x 3 days, then 1 tab x3 days with food. - carvedilol (COREG) 6.25 mg tablet Take 1 tablet by mouth two times a day. - busPIRone (BUSPAR) 5 mg tablet Take 1 tablet by mouth three times a day as needed. - benzocaine-menthol (CEPACOL) 15-3.6 mg lozg Use 1 Lozenge as instructed every 2 hours as needed. - atorvastatin (LIPITOR) 40 mg tablet Take 1 tablet by mouth daily at bedtime. - aspirin, enteric coated (ECOTRIN LOW STRENGTH) 81 mg EC tablet Take 1 tablet by mouth once daily. - omeprazole (PRILOSEC) 20 mg capsule Take 1 capsule by mouth daily before breakfast. 1/2 hr before meal. - magnesium oxide 400 mg magnesium cap Take 1 capsule by mouth three times a day. - thiamine (VITAMIN B1) 100 mg tablet Take 1 tablet by mouth once daily. - folic acid 1 mg tablet Take 1 tablet by mouth once daily. - traZODone (DESYREL) 50 mg tablet Take 1 tablet by mouth at bedtime as needed. - cyclobenzaprine (FLEXERIL) 10 mg tablet Take 1 tablet by mouth once daily as needed. Problem List As Of Date 08/12/2024 Noted Resolved Moderate hypertension [I10] 08/24/2006 Anxiety and depression [F41.9, F32.A] 02/05/2014 Seasonal allergies [J30.2] 02/05/2014 Renal insufficiency [N28.9] 02/05/2014 History of skull fracture [Z87.81] 02/05/2014 Hypertriglyceridemia [E78.1] 02/05/2014 Chronic alcohol abuse [F10.10] 02/05/2014 Unilateral inguinal hernia without obstruction *07/09/2016 NSTEMI (non-ST elevated myocardial infarction) *11/29/2017 Presence of drug-eluting stent in left circumfl*11/29/2017 Acute right-sided low back pain without sciatic*03/16/2019 Bilateral carotid artery stenosis [I65.23] 01/14/2020 GERD without esophagitis [K21.9] 11/05/2022 Prescriptions ordered this encounter Disp Refills Start End PREDNISONE 10 MG TABLET 30 t* 0 08/21/2024 09/02/2024 Sig: Take 4 tabs daily x 3 days, then 3 tabs x 3 days, 2 tabs x 3 days, then 1 tab x3 days with food. Medications Discontinued During This Encounter Prescriptions - predniSONE (DELTASONE) 10 mg tablet (Discontinued) Take 4 tabs daily x 3 days, then 3 tabs x 3 days, 2 tabs x 3 days, then 1 tab x3 days with food. Encounter (more content not included)... Normal [facility] ALKALINE PHOSPHATASE ISOENZY MES (P)on 08-11-2024 ALK PHOS BONE % 27.2 % Normal 10.7-68.3 [facility] Comment on above: Order Comment: Speci men Type: BLOOD SPECIMENOrdering Facility: [facility] Address: [address] [place] [address] Performed By: #### A LKISOP ####[facility] LABCLIA [id number] [place] [address] [place] ALK PHOS LIVER % 72.8 % Normal 26.0-86.2 [facility] Comment on above: Order Comment: Speci men Type: BLOOD SPECIMENOrdering Facility: [facility] Address: [address] [place] [address] Performed By: #### A LKISOP ####[facility] LABCLIA [id number] [place] [address] [place] BONE FRACTION 39.2 U/L Normal 12.9-52.6 [facility] Comment on above: Order Comment: Speci men Type: BLOOD SPECIMENOrdering Facility: [facility] Address: [address] [place] [address] Performed By: #### A LKISOP ####[facility] LABCLIA [id number] [place] [address] [place] INTESTINE FRACTION 0.0 U/L Normal 0.0-16.3 [facility] Comment on above: Order Comment: Speci men Type: BLOOD SPECIMENOrdering Facility: [facility] Address: [address] [place] [address] Performed By: #### A LKISOP ####[facility] LABCLIA [id number] [place] [address] [place] LIVER FRACTION 104.8 U/L High 16.0-69.3 [facility] Comment on above: Order Comment: Speci men Type: BLOOD SPECIMENOrdering Facility: [facility] Address: [address] [place] [address] Performed By: #### A LKISOP ####[facility] LABCLIA [id number] [place] [address] [place] Neutrophils/100 WBC (Bld) 0.0 % Normal 0.0-24.2 [facility] Comment on above: Order Comment: Speci men Type: BLOOD SPECIMENOrdering Facility: [facility] Address: [address] [place] [address] Performed By: #### A LKISOP ####[facility] LABIA [id number] [place] [address] [place] ALP SerPl-cCncon 08-11-2024 ALP [Catalytic activity/Vol] 144 U/L High 38-113 [facility] Comment on above: Order Comment: Speci men Type: BLOOD SPECIMENOrdering Facility: [facility] Address: [address] [place] [address] Performed By: #### 6 768-6 ####[facility] LABCLIA [id number] [place] [id number] [place] Basic metabolic 2000 panelon 08-11-2024 Anion gap [Moles/Vol] 18 mmol/L High 8-15 [facility] Comment on above: Order Comment: Speci men Type: BLOOD SPECIMENOrdering Facility: [facility] Address: [address] [place] [address] Performed By: #### 1 988-5, 3084-1, 49459-4, 47117-3 ####[facility] LABIA [id number] [place] [address] [place] Calcium [Mass/Vol] 9.0 mg/dL Normal 8.5-10.2 [facility] Comment on above: Order Comment: Speci men Type: BLOOD SPECIMENOrdering Facility: [facility] Address: [address] [place] [address] Performed By: #### 1 988-5, 3084-1, 73708-6, 82598-6 ####[facility] LABIA [id number] [place] [address] [place] Chloride [Moles/Vol] 97 mmol/L Low 98-107 [facility] Comment on above: Order Comment: Speci men Type: BLOOD SPECIMENOrdering Facility: [facility] Address: [address] [place], [place] [address] Performed By: #### 1 988-5, 3084-1, 31417-9, 94841-1 ####[facility] LABCLIA [id number] [place] [id number] [place] CO2 [Moles/Vol] 21 mmol/L Low 22-30 [facility] Comment on above: Order Comment: Speci men Type: BLOOD SPECIMENOrdering Facility: [facility] Address: [address] [place] [id number] Performed By: #### 1 988-5, 3084-1, 34650-4, 00858-0 ####[facility] LABIA [id number] [address] [address] [place] Creatinine [Mass/Vol] 1.16 mg/dL Normal 0.73-1.22 [facility] Comment on above: Order Comment: Speci men Type: BLOOD SPECIMENOrdering Facility: [facility] Address: [address] [place] [address] Performed By: #### 1 988-5, 3084-1, 99824-0, 14362-0 ####[facility] [id number] [place] [address] [place] Creatinine and Glomerular filtration rate.predicted panel (S/P/Bld) 73 mL/min/1.73m??? Normal >=60 [facility] Comment on above: Order Comment: Speci men Type: BLOOD SPECIMENOrdering Facility: [facility] Address: [address] [place] [address] Result Comment: Misty mated Glomerular Filtration Rate (eGFR) is calculated using the 2020 CKD-EPI creatinine equation. This equation utilizes serum creatinine, sex, and age as parameters. The creatinine assay has traceable calibration to isotope dilution-mass spectrometry. Refer to KDIGO guidelines for clinical interpretation. In patients with unstable renal function, e.g. those with acute kidney injury, the eGFR may not accurately reflect actual GFR. Performed By: #### 1 988-5, 3084-1, 48169-6, 08591-8 ####[facility] LABIA [id number] [place] [address] [place] Glucose [Mass/Vol] 109 mg/dL High 74-99 [facility] Comment on above: Order Comment: Speci men Type: BLOOD SPECIMENOrdering Facility: [facility] Address: [address] [place] [address] Result Comment: The [place] [employer] (ADA) provides guidance for cutoff values for fasting glucose and random glucose. The ADA defines fasting as no caloric intake for at least 8 hours. Fasting plasma glucose results between 100 to 125 mg/dL indicate increased risk for diabetes (prediabetes). Fasting plasma glucose results greater than or equal to 126 mg/dL meet the criteria for diagnosis of diabetes. In the absence of unequivocal hyperglycemia, results should be confirmed by repeat testing. In a patient with classic symptoms of hyperglycemia or hyperglycemic crisis, random plasma glucose results greater than or equal to 200 mg/dL meet the criteria for diagnosis of diabetes. Reference: Standards of Medical Care in Diabetes 2016, [place] [employer]. Diabetes Care. 2016.39(Suppl 1). Performed By: #### 1 988-5, 3084-1, 93026-7, 34089-8 ####[facility] LABCLIA [id number] [place] [address] [place] Potassium [Moles/Vol] 4.6 mmol/L Normal 3.7-5.1 [facility] Comment on above: Order Comment: Speci men Type: BLOOD SPECIMENOrdering Facility: [facility] Address: [address] [place] [address] Performed By: #### 1 988-5, 3084-1, 31605-5, 08437-1 ####[facility] LABIA [id number] [place] [address] [place] Sodium [Moles/Vol] 136 mmol/L Normal 136-144 [facility] Comment on above: Order Comment: Speci men Type: BLOOD SPECIMENOrdering Facility: [facility] Address: [address] [place] [address] Performed By: #### 1 988-5, 3084-1, 15077-3, 63381-7 ####[facility] LABCLIA [id number] [place] [address] [place] Urea nitrogen [Mass/Vol] 9 mg/dL Normal 9-24 [facility] Comment on above: Order Comment: Speci men Type: BLOOD SPECIMENOrdering Facility: [facility] Address: [address] [place] [address] Performed By: #### 1 988-5, 3084-1, 85847-6, 59332-2 ####[facility] LABCLIA [id number] [place] [address] [place] CBC W Auto Differential pane l (Bld)on 08-11-2024 Basophils (Bld) [#/Vol] 0.03 10*3/uL Normal <0.11 [facility] Comment on above: Order Comment: Speci men Type: BLOOD SPECIMENOrdering Facility: [facility] Address: [address] [place] [address] Performed By: #### 4 537-7, 19850-4 ####[facility] LABCLIA [id number] [place] [address] [place] Basophils/100 WBC (Bld) 0.4 % Normal [facility] Comment on above: Order Comment: Speci men Type: BLOOD SPECIMENOrdering Facility: [facility] Address: [address] [place] [address] Performed By: #### 4 537-7, 76732-4 ####[facility] LABCLIA [id number] [place] [address] [place] Differential cell count method Nom (Bld) Auto Normal [facility] Comment on above: Order Comment: Speci men Type: BLOOD SPECIMENOrdering Facility: [facility] Address: [address] [place] [address] Performed By: #### 4 537-7, 13624-2 ####[facility] LABCLIA [id number] [place] [address] [place] Eosinophils (Bld) [#/Vol] 0.06 10*3/uL Normal <0.46 [facility] Comment on above: Order Comment: Speci men Type: BLOOD SPECIMENOrdering Facility: [facility] Address: [address] [place] [address] Performed By: #### 4 537-7, 62277-4 ####[facility] LABCLIA [id number] [place] [address] [place] Eosinophils/100 WBC (Bld) 0.9 % Normal [facility] Comment on above: Order Comment: Speci men Type: BLOOD SPECIMENOrdering Facility: [facility] Address: [address] [place] [address] Performed By: #### 4 537-7, 41768-0 ####[facility] LABCLIA [id number] [place] [address] [place] Erythrocyte distribution width (RBC) [Ratio] 11.4 % Low 11.5-15.0 [facility] Comment on above: Order Comment: Speci men Type: BLOOD SPECIMENOrdering Facility: [facility] Address: [address] [place] [address] Performed By: #### 4 537-7, 24982-6 ####[facility] LABCLIA [id number] [place] [address] [place] Hematocrit (Bld) [Volume fraction] 43.6 % Normal 39.0-51.0 [facility] Comment on above: Order Comment: Speci men Type: BLOOD SPECIMENOrdering Facility: [facility] Address: [address] [place] [address] Performed By: #### 4 537-7, 37711-2 ####[facility] LABCLIA [id number] [place] [address] [place] Hemoglobin (Bld) [Mass/Vol] 15.6 g/dL Normal 13.0-17.0 [facility] Comment on above: Order Comment: Speci men Type: BLOOD SPECIMENOrdering Facility: [facility] Address: [address] [place] [address] Performed By: #### 4 537-7, 06358-3 ####[facility] LABCLIA [id number] [place] [address] [place] Immature granulocytes (Bld) [#/Vol] 10*3/uL Normal <0.10 [facility] Comment on above: Order Comment: Speci men Type: BLOOD SPECIMENOrdering Facility: [facility] Address: [address] [place] [address] Performed By: #### 4 537-7, 26197-5 ####[facility] LABCLIA [id number] [place] [address] [place] Immature granulocytes/100 WBC (Bld) 0.1 % Normal [facility] Comment on above: Order Comment: Speci men Type: BLOOD SPECIMENOrdering Facility: [facility] Address: [address] [place] [address] Performed By: #### 4 537-7, 47211-6 ####[facility] LABCLIA [id number] [place] [address] [place] Lymphocytes (Bld) [#/Vol] 1.12 10*3/uL Normal 1.00-4.00 [facility] Comment on above: Order Comment: Speci men Type: BLOOD SPECIMENOrdering Facility: [facility] Address: [address] [place] [address] Performed By: #### 4 537-7, 67732-4 ####[facility] LABCLIA [id number] [place] [address] [place] Lymphocytes/100 WBC (Bld) 16.8 % Normal [facility] Comment on above: Order Comment: Speci men Type: BLOOD SPECIMENOrdering Facility: [facility] Address: [address] [place] [address] Performed By: #### 4 537-7, 13037-3 ####[facility] LABCLIA [id number] [place] [address] [place] MCH (RBC) [Entitic mass] 34.0 pg Normal 26.0-34.0 [facility] Comment on above: Order Comment: Speci men Type: BLOOD SPECIMENOrdering Facility: [facility] Address: [address] [place] [address] Performed By: #### 4 537-7, 33778-4 ####[facility] LABCLIA [id number] [place] [address] [place] MCHC (RBC) [Mass/Vol] 35.8 g/dL Normal 30.5-36.0 [facility] Comment on above: Order Comment: Speci men Type: BLOOD SPECIMENOrdering Facility: [facility] Address: [address] [place] [address] Performed By: #### 4 537-7, 02538-4 ####[facility] LABCLIA [id number] [place] [address] [place] MCV (RBC) [Entitic vol] 95.0 fL Normal 80.0-100.0 [facility] Comment on above: Order Comment: Speci men Type: BLOOD SPECIMENOrdering Facility: [facility] Address: [address] [place] [address] Performed By: #### 4 537-7, 75161-1 ####[facility] LABCLIA [id number] [place] [address] [place] Monocytes (Bld) [#/Vol] 0.44 10*3/uL Normal <0.87 [facility] Comment on above: Order Comment: Speci men Type: BLOOD SPECIMENOrdering Facility: [facility] Address: [address] [place] [address] Performed By: #### 4 537-7, 97634-4 ####[facility] LABCLIA [id number] [place] [address] [place] Monocytes/100 WBC (Bld) 6.6 % Normal [facility] Comment on above: Order Comment: Speci men Type: BLOOD SPECIMENOrdering Facility: [facility] Address: [address] [place] [address] Performed By: #### 4 537-7, 71203-1 ####[facility] LABCLIA [id number] [place] [address] [place] Neutrophils (Bld) [#/Vol] 5.01 10*3/uL Normal 1.45-7.50 [facility] Comment on above: Order Comment: Speci men Type: BLOOD SPECIMENOrdering Facility: [facility] Address: [address] [place] [address] Performed By: #### 4 537-7, 64960-1 ####[facility] LABCLIA [id number] [place] [address] [place] Neutrophils/100 WBC (Bld) 75.2 % Normal [facility] Comment on above: Order Comment: Speci men Type: BLOOD SPECIMENOrdering Facility: [facility] Address: [address] [place] [address] Performed By: #### 4 537-7, 40002-5 ####[facility] LABCLIA [id number] [place] [address] [place] Nucleated RBC (Bld) [#/Vol] 10*3/uL Normal <0.01 [facility] Comment on above: Order Comment: Speci men Type: BLOOD SPECIMENOrdering Facility: [facility] Address: [address] [place] [address] Performed By: #### 4 537-7, 49803-6 ####[facility] LABCLIA [id number] [place] [address] [place] Nucleated RBC/100 WBC (Bld) [Ratio] 0.0 /100 WBC Normal [facility] Comment on above: Order Comment: Speci men Type: BLOOD SPECIMENOrdering Facility: [facility] Address: [address] [place] [address] Performed By: #### 4 537-7, 01053-5 ####[facility] LABCLIA [id number] [address] [address] [place] Platelet mean volume (Bld) [Entitic vol] 10.3 fL Normal 9.0-12.7 [facility] Comment on above: Order Comment: Speci men Type: BLOOD SPECIMENOrdering Facility: [facility] Address: [address] [place] [address] Performed By: #### 4 537-7, 14189-2 ####[facility] LABIA [id number] [place] [address] [place] Platelets (Bld) [#/Vol] 136 10*3/uL Low 150-400 [facility] Comment on above: Order Comment: Speci men Type: BLOOD SPECIMENOrdering Facility: [facility] Address: [address] [place] [address] Performed By: #### 4 537-7, 05314-5 ####[facility] LABIA [id number] [place] [address] [place] RBC (Bld) [#/Vol] 4.59 10*6/uL Normal 4.20-6.00 [facility] Comment on above: Order Comment: Speci men Type: BLOOD SPECIMENOrdering Facility: [facility] Address: [address] [place] [address] Performed By: #### 4 537-7, 60022-9 ####[facility] LABIA [id number] [place] [id number] [place] WBC (Bld) [#/Vol] 6.67 10*3/uL Normal 3.70-11.00 [facility] Comment on above: Order Comment: Speci men Type: BLOOD SPECIMENOrdering Facility: [facility] Address: [address] [place] [address] Performed By: #### 4 537-7, 87157-5 ####[facility] LABIA [id number] [address] [address] [place] CNOVon 08-11-2024 CNOV Office Visit (FAMPWS ) BETHANY MONTALVO ([id number]) 1965 M Date Time Provider Department 08/11/24 1:00 PM KEREN KWON During your visit today, we recorded the following information about you: Temperature Pulse Respiration Blood pressure 99.9 degrees 120/minute 16/minute 162/86 Keren Kwon APRN.DIGITAL SALES MANAGER 08/11/2024 2:07 PM Signed This is a 58 year old male who presents today with: Patient presents with: ER F/U: [facility] ER f/u 07/23/24 dx: L knee pain HISTORY OF PRESENT ILLNESS: Bethany Montalvo is a 58 year old male. Patient presents with: ER F/U: [facility] ER f/u 07/23/24 dx: L knee pain Pt presents today for ER follow-up. He was seen in the ER on 07/23/24 after an injury that happened 5 days prior to presentation. In the ER, per the documentation, he mostly had pain over his bilateral ankles and feet. Range of motion was intact except for slightly limited by pain. He had x-rays of the left foot, ankle, tib-fib and the right foot, ankle, toes, tib-fib. Per their ER chart, no evidence of obvious fracture or dislocations. Refers that severe leg pain. Cannot get the leg comfortable. Refers that it started when he fell off ladder. Refers that he fell onto the concrete floor. Landed on left foot. Refers that they didn't xray his knee. Refers that the knee pain actually started/worsened about 3 days after his ER visit. Was advised to take tylenol and ibuprofen for the knee pain. Refers that now he is having pain that shoots into his hip and groin. Refers that the knee is swollen. Continues w/ ETOH use. 3 - 16 ounces of 8% ETOH nightly. Refers that he lost his job d/t injury. Refers that his girlfriend shattered her ankle a few months ago -- so also trying to take care of her. PAST MEDICAL HISTORY: PAST MEDICAL HISTORY Diagnosis Date Alcohol abuse Anxiety and depression 07/09/2016 Bilateral carotid artery stenosis 01/14/2020 40-59% bilateral. Chronic alcohol abuse Chronic insomnia Coronary artery disease due to lipid rich plaque CSF abnormal GERD (gastroesophageal reflux disease) GERD with esophagitis 01/29/2019 HTN (hypertension) Hypertriglyceridemia Hypomagnesemia Moderate hypertension Renal insufficiency Syncope Tubular adenoma of colon 01/29/2019 PAST SURGICAL HISTORY Procedure Laterality Date COLONOSCOPY FLX DX W/COLLJ SPEC WHEN PFRMD 01/12/2019 Colonoscopy CRANIO/MAXILLO-FACIAL SURGERY 1989 orbital blow out fracture/ [place]ordo ESOPHAGOGASTRODUODENOSCOPY TRANSORAL DIAGNOSTIC 01/12/2019 EGD PTCA SNGL VSSL LC 11/21/2017 JUSTIN left circ TONSILLECTOMY HX TREAT SHOULDERBLADE FRACTURE UPPER GI ENDOSCPY, W/BIOPSY, SNGL OR MULT 01/12/2019 ALLERGIES Sudafed [Pseudoephedrine] MEDICATIONS Current Outpatient Medications Medication Sig busPIRone (BUSPAR) 5 mg tablet Take 1 tablet by mouth three times a day as needed. benzocaine-menthol (CEPACOL) 15-3.6 mg lozg Use 1 Lozenge as instructed every 2 hours as needed. atorvastatin (LIPITOR) 40 mg tablet Take 1 tablet by mouth daily at bedtime. carvedilol (COREG) 3.125 mg tablet Take 1 tablet by mouth two times a day. aspirin, enteric coated (ECOTRIN LOW STRENGTH) 81 mg EC tablet Take 1 tablet by mouth once daily. omeprazole (PRILOSEC) 20 mg capsule Take 1 capsule by mouth daily before breakfast. 1/2 hr before meal. magnesium oxide 400 mg magnesium cap Take 1 capsule by mouth three times a day. thiamine (VITAMIN B1) 100 mg tablet Take 1 tablet by mouth once daily. folic acid 1 mg tablet Take 1 tablet by mouth once daily. traZODone (DESYREL) 50 mg tablet Take 1 tablet by mouth at bedtime as needed. cyclobenzaprine (FLEXERIL) 10 mg tablet Take 1 tablet by mouth once daily as needed. No current facility-administered medications for this visit. FAMILY HISTORY Problem Relation Age of Onset Psychiatry Mother Heart Mother NM 53 Heart Father [place] 51 Colon Cancer Father Social History Tobacco Use Smoking status: Former Current packs/day: 0.00 Average packs/day: 0.5 packs/day for 30.4 years (15.2 ttl pk-yrs) Types: Cigarettes Start date: 12/30/1983 Quit date: 05/30/2014 Years since quittin.2 Smokeless tobacco: Current Types: Chew Tobacco comments: Very few, very infrequently. Father smoked in childhood home. Vaping Use Vaping status: Never Used Substance Use Topics Alcohol use: Yes Alcohol/week: 84.0 standard drinks of alcohol Types: 84 Cans of Beer (12oz) per week Comment: Binge drinking at times, worse with stress. Drug use: Yes Types: Marijuana Comment: Occassional marijuana, 03/2014. Huffed spray paint and glue briefly, ages 8-9. Whippets in mid to late teens. TO EXAM: BP 162/86 Pulse 120 Resp 16 SpO2 98% PHYSICAL EXAM: General Appearance: Well appearing, alert, in no acute distress, well-hydrated, well nourished. Uncomfortable. Skin: Skin color, te (more content not included)... Normal [facility] CRP SerPl-mCncon 08-11-2024 CRP [Mass/Vol] 0.5 mg/dL Normal <0.9 [facility] Comment on above: Order Comment: Speci men Type: BLOOD SPECIMENOrdering Facility: [facility] Address: [address] [place] [address] Performed By: #### 1 988-5, 3084-1, 93827-7, 45591-0 ####[facility] LABCLIA [id number] [facility] [id number] [address] [place] ESR Westergren method (Bld) [Velocity]on 08-11-2024 ESR (Bld) [Velocity] 9 mm/h Normal 0-15 [facility] Comment on above: Order Comment: Speci men Type: BLOOD SPECIMENOrdering Facility: [facility] Address: [address] [place] [address] Performed By: #### 4 537-7, 26777-8 ####[facility] LABIA [id number] [place] [address] [place] Free PSA [Mass/Vol]on 2024 Free PSA/Total PSA [Mass fraction] 10 % Normal [facility] Comment on above: Order Comment: Speci men Type: BLOOD SPECIMENOrdering Facility: [facility] Address: [address] [place] [address] Result Comment: Tota l and free PSA test methodology used is the Electrochemiluminescence Immunoassay by [employer]. Total or free PSA values by differing methodologies cannot be interchanged. The below table lists the probability of finding prostate cancer upon needle biopsy, for men 50 years or older and total PSA concentrations from 4.0-10.0 ng/mL. Results should be interpreted within the broader clinical context. Free PSA(%) 50-59 years 60-69 years >69 years <11 49.2% 57.5% 64.5% 11-18 26.9% 33.9% 40.8% 19-25 18.3% 23.9% 29.7% >25 9.1% 12.2% 15.8% Performed By: #### 1 988-5, 3084-1, 18987-3, 91356-9 ####[facility] LABCLIA [id number] [place] [address] [place] Prostate specific Ag [Mass/Vol] 4.05 ng/mL High <2.60 [facility] Comment on above: Order Comment: Speci men Type: BLOOD SPECIMENOrdering Facility: [facility] Address: [address] [place] [address] Result Comment: Tota l PSA test methodology used is the Electrochemiluminescence Immunoassay by [employer]. Total PSA values by differing methodologies cannot be interchanged. For an individual patient, the significance of a PSA level should be interpreted in a broad clinical context, including age, race, family history, digital rectal exam, prostate size, results of prior testing (prostate biopsy, free PSA, PCA3), and use of 5-alpha reductase inhibitors. Considering the high incidence of asymptomatic cancer in the general population that may not pose an ultimate risk to a patient, the decision to recommend urological evaluation or prostate biopsy should be individualized after consideration of all these factors. REFERENCE: Darryn Bertrand M.D., M.P.H., Valentino Benavidez M.D., Ph.D., Mikhail Lopez M.D., Lindsay Aguilar, M.P.H., Marcelle Garcia Sc.D. Effect of Verification Bias on Screening for Prostate Cancer by Measurement of Prostatic Specific Antigen. N Engl J Med 2003,349:335-42. Performed By: #### 1 988-5, 3084-1, 32670-2, 97976-9 ####[facility] LABIA [id number] [place] [address] [place] Osmolality Uron 08-11-2024 Osmolality (U) [Osmolality] 163 mosm/kg Normal 50-1200 [facility] Comment on above: Order Comment: Speci men Type: URINE SPECIMENOrdering Facility: [facility] Address: [address] [place] [address] Performed By: #### 2 695-5 ####[facility] [id number] [place] [address] [place] Sodium ?Tm Ur-sCncon 025 Sodium Unsp time (U) [Moles/Vol] 30 mmol/L Normal 14-216 [facility] Comment on above: Order Comment: Speci men Type: URINE SPECIMENOrdering Facility: [facility] Address: [address] [place] [address] Performed By: #### 3 5678-2 ####[facility] LABIA [id number] [place] [address] [place] Urate SerPl-mCncon 5 Urate [Mass/Vol] 9.9 mg/dL High 4.0-8.1 [facility] Comment on above: Order Comment: Speci men Type: BLOOD SPECIMENOrdering Facility: [facility] Address: [address] [place] [address] Performed By: #### 1 988-5, 3084-1, 50305-2, 25246-8 ####[facility] LABCLIA [id number] [address] [id number] [address] [place] XR KNEE 4V AP/PA BOTH+LAT/ME R LTon 08-11-2024 XR KNEE 4V AP/PA BOTH+LAT/NELLIE LT * * *Final Report* * * DATE OF EXAM: Aug 11 2024 2:35PM WOX 5202 - XR KNEE 4V AP/PA BOTH+LAT/NELLIE LT / PROCEDURE REASON: Acute pain of left knee * * * * Physician Interpretation * * * * KNEE RADIOGRAPHS - LEFT HISTORY: Acute pain of left knee TECHNOLOGIST PROVIDED HISTORY (if applicable): Acute left knee pain after fall off of ladder at the end of June. TECHNIQUE: XR KNEE 4V AP/PA BOTH+LAT/NELLIE LT COMPARISON: None available RESULT: Left knee: No radiolucent fracture line. Linear sclerosis at the proximal tibial metaphysis noted and could reflect healing fracture given the subacute injury. Joint spaces are preserved. No evidence for joint effusion. IMPRESSION: 1. Indeterminate area of linear sclerosis proximal tibial metaphysis as above. If patient's symptoms continue, cross-sectional imaging/MRI can be performed for further evaluation Numberer And Wirer: JOHN Transcribe Date/Time: Aug 13 2024 4:59P Dictated by : MIN GUTIERREZ MD This examination was interpreted and the report reviewed and electronically signed by: MIN GUTIERREZ MD on Aug 13 2024 5:02PM EST [id number] Normal [facility] CNPNon 08-07-2024 CNPN Telephone (FAMPWS) BETHANY MONTALVO ([id number]) 1965 M Date Time Provider Department 08/07/24 KEREN KWON During your visit today, we recorded the following information about you: Keren Kwon APRN.CHRISTIANA 08/07/2024 3:34 PM Signed Can please let patient know that I received his test results. The carotid ultrasound showed no changes. The labwork had a few things that were a little off. His sodium was a little low. Sometimes we can see this with alcohol intake. However, I would like to r/o other causes. I put some orders in for additional labwork. His alk phos was also elevated. This is an enzyme that comes from either a liver source or bone source. I went ahead and put an additional test in for this, as well, to verify the source. His prostate enzyme was a little elevated. I also put in some repeat labwork for this as well. His triglyceride level has also crept up some. Ways to help lower triglycerides include: 1. Regular exercise. 2. Weight loss. 3. Avoid simple carbohydrates (sugar and foods made with white flour). 4. Choose healthier sources of fats (avoid red meats and fried foods). Trade saturated fat found in meats for healthier fat found in plants. 5. Limit alcohol. Orders are in. Donna Richey LPN 08/07/2024 4:05 PM Signed Pt notified. He verbalized understanding. Donna Richey LPN Allergies As of Date: 08/07/2024 Noted Allergy Reaction SUDAFED (PSEUDOEPHEDRINE) 06/26/2016 14 - Other: See Comments Comments: Prostate infection Date Reviewed: 07/13/2024 Reviewed by: Rosa Wade APRN.DIGITAL SALES MANAGER - Fully Assessed Reason for Visit: Results [95] Primary Visit Diagnosis:Hyponatremia [E87.1] Other Visit Diagnoses:Elevated alkaline phosphatase level [R74.8] Elevated PSA [R97.20] Elevated hemoglobin (HCC) [D58.2] Order(s):BASIC METABOLIC PANEL [SQBMP] Order #: [id number] FUTURE SODIUM RANDOM URINE [SQUNAR] Order #: [id number] FUTURE OSMOLALITY URINE [SQUOSM] Order #: [id number] FUTURE ALK PHOS ISOENZYM BL [SQALKISO] Order #: [id number] FUTURE PROSTATE SPECIFIC ANTIGEN, FREE [SQPSATF] Order #: [id number] FUTURE COMPLETE BLOOD COUNT AND DIFFERENTIAL [SQCBCDIF] Order #: [id number] FUTURE Prescriptions as of 08/07/2024 - busPIRone (BUSPAR) 5 mg tablet Take 1 tablet by mouth three times a day as needed. - benzocaine-menthol (CEPACOL) 15-3.6 mg lozg Use 1 Lozenge as instructed every 2 hours as needed. - atorvastatin (LIPITOR) 40 mg tablet Take 1 tablet by mouth daily at bedtime. - carvedilol (COREG) 3.125 mg tablet Take 1 tablet by mouth two times a day. - aspirin, enteric coated (ECOTRIN LOW STRENGTH) 81 mg EC tablet Take 1 tablet by mouth once daily. - omeprazole (PRILOSEC) 20 mg capsule Take 1 capsule by mouth daily before breakfast. 1/2 hr before meal. - magnesium oxide 400 mg magnesium cap Take 1 capsule by mouth three times a day. - thiamine (VITAMIN B1) 100 mg tablet Take 1 tablet by mouth once daily. - folic acid 1 mg tablet Take 1 tablet by mouth once daily. - traZODone (DESYREL) 50 mg tablet Take 1 tablet by mouth at bedtime as needed. - cyclobenzaprine (FLEXERIL) 10 mg tablet Take 1 tablet by mouth once daily as needed. Problem List As Of Date 08/07/2024 Noted Resolved Moderate hypertension [I10] 08/24/2006 Anxiety and depression [F41.9, F32.A] 02/05/2014 Seasonal allergies [J30.2] 02/05/2014 Renal insufficiency [N28.9] 02/05/2014 History of skull fracture [Z87.81] 02/05/2014 Hypertriglyceridemia [E78.1] 02/05/2014 Chronic alcohol abuse [F10.10] 02/05/2014 Unilateral inguinal hernia without obstruction *07/09/2016 NSTEMI (non-ST elevated myocardial infarction) *11/29/2017 Presence of drug-eluting stent in left circumfl*11/29/2017 Acute right-sided low back pain without sciatic*03/16/2019 Bilateral carotid artery stenosis [I65.23] 01/14/2020 GERD without esophagitis [K21.9] 11/05/2022 Encounter Status:Closed by DONNA RICHEY on 08/07/24 Normal [facility] CBC W Auto Differential pane l (Bld)on 08-05-2024 Basophils (Bld) [#/Vol] 0.04 10*3/uL Normal <0.11 [facility] Comment on above: Order Comment: Speci men Type: BLOOD SPECIMENOrdering Facility: [facility] Address: [address] [place] [address] Performed By: #### 5 7021-8 ####[facility] [id number] [place] [address] [place] Basophils/100 WBC (Bld) 0.4 % Normal [facility] Comment on above: Order Comment: Speci men Type: BLOOD SPECIMENOrdering Facility: [facility] Address: [address] [place] [address] Performed By: #### 5 7021-8 ####[facility] [id number] [place] [address] [place] Differential cell count method Nom (Bld) Auto Normal [facility] Comment on above: Order Comment: Speci men Type: BLOOD SPECIMENOrdering Facility: [facility] Address: [address] [place] [address] Performed By: #### 5 7021-8 ####[facility] [id number] [place] [address] [place] Eosinophils (Bld) [#/Vol] 0.09 10*3/uL Normal <0.46 [facility] Comment on above: Order Comment: Speci men Type: BLOOD SPECIMENOrdering Facility: [facility] Address: [address] [place] [address] Performed By: #### 5 7021-8 ####[facility] [id number] [place] [address] [place] Eosinophils/100 WBC (Bld) 0.9 % Normal [facility] Comment on above: Order Comment: Speci men Type: BLOOD SPECIMENOrdering Facility: [facility] Address: [address] [place] [address] Performed By: #### 5 7021-8 ####[facility] [id number] [place] [address] [place] Erythrocyte distribution width (RBC) [Ratio] 11.7 % Normal 11.5-15.0 [facility] Comment on above: Order Comment: Speci men Type: BLOOD SPECIMENOrdering Facility: [facility] Address: [address] [place] [address] Performed By: #### 5 7021-8 ####[facility] [id number] [place] [address] [place] Hematocrit (Bld) [Volume fraction] 49.8 % Normal 39.0-51.0 [facility] Comment on above: Order Comment: Speci men Type: BLOOD SPECIMENOrdering Facility: [facility] Address: [address] [place] [address] Performed By: #### 5 7021-8 ####[facility] [id number] [place] [address] [place] Hemoglobin (Bld) [Mass/Vol] 18.0 g/dL High 13.0-17.0 [facility] Comment on above: Order Comment: Speci men Type: BLOOD SPECIMENOrdering Facility: [facility] Address: [address] [place] [address] Performed By: #### 5 7021-8 ####[facility] [id number] [place] [address] [place] Immature granulocytes (Bld) [#/Vol] 0.08 10*3/uL Normal <0.10 [facility] Comment on above: Order Comment: Speci men Type: BLOOD SPECIMENOrdering Facility: [facility] Address: [address] [place] [address] Performed By: #### 5 7021-8 ####[facility] [id number] [place] [address] [place] Immature granulocytes/100 WBC (Bld) 0.8 % Normal [facility] Comment on above: Order Comment: Speci men Type: BLOOD SPECIMENOrdering Facility: [facility] Address: [address] [place] [address] Performed By: #### 5 7021-8 ####[facility] [id number] [place] [address] [place] Lymphocytes (Bld) [#/Vol] 1.71 10*3/uL Normal 1.00-4.00 [facility] Comment on above: Order Comment: Speci men Type: BLOOD SPECIMENOrdering Facility: [facility] Address: [address] [place] [address] Performed By: #### 5 7021-8 ####[facility] [id number] [place] [address] [place] Lymphocytes/100 WBC (Bld) 17.6 % Normal [facility] Comment on above: Order Comment: Speci men Type: BLOOD SPECIMENOrdering Facility: [facility] Address: [address] [place] [address] Performed By: #### 5 7021-8 ####[facility] [id number] [place] [address] [place] MCH (RBC) [Entitic mass] 33.6 pg Normal 26.0-34.0 [facility] Comment on above: Order Comment: Speci men Type: BLOOD SPECIMENOrdering Facility: [facility] Address: [address] [place] [address] Performed By: #### 5 7021-8 ####[facility] [id number] [place] [address] [place] MCHC (RBC) [Mass/Vol] 36.1 g/dL High 30.5-36.0 [facility] Comment on above: Order Comment: Speci men Type: BLOOD SPECIMENOrdering Facility: [facility] Address: [address] [place] [address] Performed By: #### 5 7021-8 ####[facility] [id number] [place] [address] [place] MCV (RBC) [Entitic vol] 93.1 fL Normal 80.0-100.0 [facility] Comment on above: Order Comment: Speci men Type: BLOOD SPECIMENOrdering Facility: [facility] Address: [address] [place] [address] Performed By: #### 5 7021-8 ####[facility] [id number] [place] [address] [place] Monocytes (Bld) [#/Vol] 0.58 10*3/uL Normal <0.87 [facility] Comment on above: Order Comment: Speci men Type: BLOOD SPECIMENOrdering Facility: [facility] Address: [address] [place] [address] Performed By: #### 5 7021-8 ####[facility] [id number] [place] [address] [place] Monocytes/100 WBC (Bld) 6.0 % Normal [facility] Comment on above: Order Comment: Speci men Type: BLOOD SPECIMENOrdering Facility: [facility] Address: [address] [place] [address] Performed By: #### 5 7021-8 ####[facility] [id number] [place] [address] [place] Neutrophils (Bld) [#/Vol] 7.19 10*3/uL Normal 1.45-7.50 [facility] Comment on above: Order Comment: Speci men Type: BLOOD SPECIMENOrdering Facility: [facility] Address: [address] [place] [address] Performed By: #### 5 7021-8 ####[facility] [id number] [place] [address] [place] Neutrophils/100 WBC (Bld) 74.3 % Normal [facility] Comment on above: Order Comment: Speci men Type: BLOOD SPECIMENOrdering Facility: [facility] Address: [address] [place] [address] Performed By: #### 5 7021-8 ####[facility] [id number] [place] [address] [place] Nucleated RBC (Bld) [#/Vol] 10*3/uL Normal <0.01 [facility] Comment on above: Order Comment: Speci men Type: BLOOD SPECIMENOrdering Facility: [facility] Address: [address] [place] [address] Performed By: #### 5 7021-8 ####[facility] [id number] [place] [address] [place] Nucleated RBC/100 WBC (Bld) [Ratio] 0.0 /100 WBC Normal [facility] Comment on above: Order Comment: Speci men Type: BLOOD SPECIMENOrdering Facility: [facility] Address: [address] [place] [address] Performed By: #### 5 7021-8 ####[facility] [id number] [place] [address] [place] Platelet mean volume (Bld) [Entitic vol] 9.5 fL Normal 9.0-12.7 [facility] Comment on above: Order Comment: Speci men Type: BLOOD SPECIMENOrdering Facility: [facility] Address: [address] [place] [address] Performed By: #### 5 7021-8 ####[facility] RAPHAEL KASEYNCFLAKITAA [id number] [place] [address] [place] Platelets (Bld) [#/Vol] 184 10*3/uL Normal 150-400 [facility] Comment on above: Order Comment: Speci men Type: BLOOD SPECIMENOrdering Facility: [facility] Address: [address] [place] [address] Performed By: #### 5 7021-8 ####[facility] KASEYNCLIA [id number] [place] [address] [place] RBC (Bld) [#/Vol] 5.35 10*6/uL Normal 4.20-6.00 [facility] Comment on above: Order Comment: Speci men Type: BLOOD SPECIMENOrdering Facility: [facility] Address: [address] [place] [address] Performed By: #### 5 7021-8 ####[facility] MARY CARMENJENNERNCLIA [id number] [place] [address] [place] WBC (Bld) [#/Vol] 9.69 10*3/uL Normal 3.70-11.00 [facility] Comment on above: Order Comment: Speci men Type: BLOOD SPECIMENOrdering Facility: [facility] Address: [address] [place] [address] Performed By: #### 5 7021-8 ####[facility]ITALNCLIA [id number] [place] [address] [place] [facility] [place] Comprehensive metabolic 2000 panelon 08-05-2024 Albumin [Mass/Vol] 4.7 g/dL Normal 3.9-4.9 [facility] Comment on above: Order Comment: Speci men Type: BLOOD SPECIMENOrdering Facility: [facility] Address: [address] [place] [address] Performed By: #### 2 4323-8, ####[facility] RAPHAEL MILLTOWNCLIA [id number] [place] [address] [place] ALP [Catalytic activity/Vol] 169 U/L High 38-113 [facility] Comment on above: Order Comment: Speci men Type: BLOOD SPECIMENOrdering Facility: [facility] Address: [address] [place] [address] Performed By: #### 2 4323-8, ####[facility] MILLTOWNCLIA [id number] [place] [address] [place] ALT [Catalytic activity/Vol] 42 U/L Normal 10-54 [facility] Comment on above: Order Comment: Speci men Type: BLOOD SPECIMENOrdering Facility: [facility] Address: [address] [place] [address] Performed By: #### 2 4323-8, ####[facility] MILLTOWNCLIA [id number] [place] [address] [place] Anion gap [Moles/Vol] 11 mmol/L Normal 8-15 [facility] Comment on above: Order Comment: Speci men Type: BLOOD SPECIMENOrdering Facility: [facility] Address: [address] [place] [address] Performed By: #### 2 4323-8, ####[facility] MILLTOWNCLIA [id number] [place] [address] [place] AST [Catalytic activity/Vol] 70 U/L High 14-40 [facility] Comment on above: Order Comment: Speci men Type: BLOOD SPECIMENOrdering Facility: [facility] Address: [address] [place] [address] Performed By: #### 2 4323-8, ####[facility] MILLTOWNCLIA [id number] [place] [address] [place] Bilirubin [Mass/Vol] 0.7 mg/dL Normal 0.2-1.3 [facility] Comment on above: Order Comment: Speci men Type: BLOOD SPECIMENOrdering Facility: [facility] Address: [address] [place] [address] Performed By: #### 2 4323-8, ####[facility] MILLWNCLIA [id number] [place] [address] [place] Calcium [Mass/Vol] 10.3 mg/dL High 8.5-10.2 [facility] Comment on above: Order Comment: Speci men Type: BLOOD SPECIMENOrdering Facility: [facility] Address: [address] [place] [address] Performed By: #### 2 4323-8, ####[facility] HOSPITALWKASSANDRALIA [id number] [place] [address] [place] Chloride [Moles/Vol] 94 mmol/L Low 98-107 [facility] Comment on above: Order Comment: Speci men Type: BLOOD SPECIMENOrdering Facility: [facility] Address: [address] [place] [address] Performed By: #### 2 4323-8, ####[facility] MILLTOWNCLIA [id number] [place] [address] [place] CO2 [Moles/Vol] 27 mmol/L Normal 22-30 [facility] Comment on above: Order Comment: Speci men Type: BLOOD SPECIMENOrdering Facility: [facility] Address: [address] [place] [address] Performed By: #### 2 4323-8, ####[facility] MILLTOWNCLIA [id number] [place] [address] [place] Creatinine [Mass/Vol] 1.26 mg/dL High 0.73-1.22 [facility] Comment on above: Order Comment: Chirag jeffrey Type: BLOOD SPECIMENOrdering Facility: [facility] Address: [address] [place] [address] Performed By: #### 2 4323-8, ####[facility] HOSPITALNCLI [id number] [place] [address] [place] Creatinine and Glomerular filtration rate.predicted panel (S/P/Bld) 67 mL/min/1.73m??? Normal >=60 [facility] Comment on above: Order Comment: Chirag jeffrey Type: BLOOD SPECIMENOrdering Facility: [facility] Address: [address] [place] [address] Result Comment: Misty mated Glomerular Filtration Rate (eGFR) is calculated using the 2020 CKD-EPI creatinine equation. This equation utilizes serum creatinine, sex, and age as parameters. The creatinine assay has traceable calibration to isotope dilution-mass spectrometry. Refer to KDIGO guidelines for clinical interpretation. In patients with unstable renal function, e.g. those with acute kidney injury, the eGFR may not accurately reflect actual GFR. Performed By: #### 2 4323-8, ####[facility] HOSPITALNCLIA [id number] [place] [address] [place] Glucose [Mass/Vol] 112 mg/dL High 74-99 [facility] Comment on above: Order Comment: Chirag jeffrey Type: BLOOD SPECIMENOrdering Facility: [facility] Address: [address] [place] [address] Result Comment: The [place] Diabetes Association (ADA) provides guidance for cutoff values for fasting glucose and random glucose. The ADA defines fasting as no caloric intake for at least 8 hours. Fasting plasma glucose results between 100 to 125 mg/dL indicate increased risk for diabetes (prediabetes). Fasting plasma glucose results greater than or equal to 126 mg/dL meet the criteria for diagnosis of diabetes. In the absence of unequivocal hyperglycemia, results should be confirmed by repeat testing. In a patient with classic symptoms of hyperglycemia or hyperglycemic crisis, random plasma glucose results greater than or equal to 200 mg/dL meet the criteria for diagnosis of diabetes. Reference: Standards of Medical Care in Diabetes 2016, [place] [employer] Association. Diabetes Care. 2016.39(Suppl 1). Performed By: #### 2 432-8, ####[facility] HOSPITALLIPrachi [id number] [place] [address] [place] Potassium [Moles/Vol] 4.8 mmol/L Normal 3.7-5.1 [facility] Comment on above: Order Comment: Speci men Type: BLOOD SPECIMENOrdering Facility: [facility] Address: [address] [place], [place] [address] Performed By: #### 2 4323-02, ####[facility] [id number] [place] [address] [place] Protein [Mass/Vol] 8.0 g/dL Normal 6.3-8.0 [facility] Comment on above: Order Comment: Speci men Type: BLOOD SPECIMENOrdering Facility: [facility] Address: [address] [place], [place] [address] Performed By: #### 2 4323-02, ####[facility] [id number] [place] [address] [place] Sodium [Moles/Vol] 132 mmol/L Low 136-144 [facility] Comment on above: Order Comment: Speci men Type: BLOOD SPECIMENOrdering Facility: [facility] Address: [address] [place] [address] Performed By: #### 2 432-, ####[facility] [id number] [place] [address] [place] Urea nitrogen [Mass/Vol] 11 mg/dL Normal 9-24 [facility] Comment on above: Order Comment: Speci men Type: BLOOD SPECIMENOrdering Facility: [facility] Address: [address] [place] [address] Performed By: #### 2 4323-8, 48670-6 ####[facility] [id number] [place] [address] [place] [facility] 25 Folate [Mass/Vol] ng/mL Normal >4.7 [facility] Comment on above: Order Comment: Speci men Type: BLOOD SPECIMENOrdering Facility: [facility] Address: [address] [place] [address] Result Comment: A re sult of > 20 ng/mL is not necessarily indicative of a pathologic or treatable condition: it reflects a limitation of the test methodology. Assay reference range: 4.8 to 24.2 ng/mL. Suitable for detection of folate deficiency. Reference: Folate III (Folate III) [package insert V 1.0 Azerbaijani]. [facility], [place], [place]: May 2015. Performed By: #### 2 132-9, 8 ####[facility] LABCLIA [id number] [place] [address] [place]#### 60494-2 ####[facility] LABCLIA [id number] [facility] [place] [address] [place] [facility] [id number] [place] [address] [place] Lipid 1996 panelon 5 Cholesterol [Mass/Vol] 218 mg/dL High <200 [facility] Comment on above: Order Comment: Speci men Type: BLOOD SPECIMENOrdering Facility: [facility] Address: [address] [place] [address] Result Comment: <200 mg/dL, Desirable 200-239 mg/dL, Borderline high >239 mg/dL, High Performed By: #### 2 132-9, 2283-8 ####[facility] LABCLIA [id number] [place] [address] [place]#### 41815-0 ####[facility] LABCLIA [id number] [address] [id number] [place] [address] [place] Cholesterol in HDL [Mass/Vol] 29 mg/dL Low >39 [facility] Comment on above: Order Comment: Speci men Type: BLOOD SPECIMENOrdering Facility: [facility] Address: [address] [place] [address] Result Comment: 40-5 9 mg/dL, Acceptable >59 mg/dL, High: Negative risk factor for coronary heart disease <40 mg/dL, Low: Positive risk factor for coronary heart disease Performed By: #### 2 132-9, 2283-8 ####[facility] LABCLIA [id number] [place] [address] [place]#### 89107-7 ####[facility] LABCLIA [id number] [address] [id number] [place] [address] [place] Cholesterol in LDL [Mass/Vol] 124 mg/dL High <100 [facility] Comment on above: Order Comment: Speci men Type: BLOOD SPECIMENOrdering Facility: [facility] Address: [address] [place] [address] Result Comment: <100 mg/dL, Optimal 100-129 mg/dL, Near optimal/above optimal 130-159 mg/dL, Borderline high 160-189 mg/dL, High >189 mg/dL, Very high Secondary prevention optimal LDL Cholesterol levels are recommended to be < 70 mg/dL Performed By: #### 2 132-9, 228-8 ####[facility] LABCLIA [id number] [address] [place]#### 51607-3 ####[facility] LABCLIA [id number] [address] [id number] [address] [place] [facility] Cholesterol in LDL/Cholesterol in HDL [Mass ratio] 4.28 {ratio} High <2.54 [facility] Comment on above: Order Comment: Speci men Type: BLOOD SPECIMENOrdering Facility: [facility] Address: [address] [place] [address] Result Comment: Refe venessa: 1. National Cholesterol Education Program ATP III Guideline At-A-Glance Quick Desk Reference: National Heart, Lung, and Blood Cleaton. National Institutes of Health. 2001: NIH Publication No. 01-3305. 2. An International Atherosclerosis Society position paper: global recommendations for the management of dyslipidemia: executive summary, Atherosclerosis. 2014: 232(2):410-413. Performed By: #### 2 132-9, 2283-8 ####[facility] LABCLIA [id number] [place] [address] [place]#### 33686-4 ####[facility] LABCLIA [id number] [address] [id number] [place] [address] [place] Cholesterol in VLDL [Mass/Vol] 65 mg/dL High <30 [facility] Comment on above: Order Comment: Speci men Type: BLOOD SPECIMENOrdering Facility: [facility] Address: [address] [place] [address] Performed By: #### 2 132-9, 2283-8 ####[facility] LABCLIA [id number] [place] [address] [place]#### 17106-2 ####[facility] LABCLIA [id number] [address] [id number] [place] [address] [place] Cholesterol non HDL [Mass/Vol] 189 mg/dL High <130 [facility] Comment on above: Order Comment: Speci men Type: BLOOD SPECIMENOrdering Facility: [facility] Address: [address] [place] [address] Result Comment: <130 mg/dL, Optimal 130-159 mg/dL, Near optimal/above optimal 160-189 mg/dL, Borderline high 190-219 mg/dL, High >219 mg/dL, Very high Secondary prevention optimal non HDL Cholesterol levels are recommended to be <100 mg/dL Performed By: #### 2 132-9, 2283-8 ####[facility] LABCLIA [id number] [place] [address] [place]#### 84472-3 ####[facility] LABCLIA [id number] [address] STATES [facility] [id number] [place] [address] [place] Cholesterol.total/Cho lesterol in HDL [Mass ratio] 7.52 {ratio} High <5.10 [facility] Comment on above: Order Comment: Speci men Type: BLOOD SPECIMENOrdering Facility: [facility] Address: [address] [place] [address] Performed By: #### 2 132-9, 2283-8 ####[facility] LABCLIA [id number] [place] [address] [place]#### 43406-0 ####[facility] LABCLIA [id number] [address] STATES OF [facility] [id number] [place] [address] [place] FASTING TIME 12 hrs Normal [facility] Comment on above: Order Comment: Speci men Type: BLOOD SPECIMENOrdering Facility: [facility] Address: [address] [place] [address] Performed By: #### 2 132-9, 4-8 ####[facility] LABCLIA [id number] [place] [address] [place]#### 25438-6 ####[facility] LABCLIA [id number] [place] [address] [place] [facility] [id number] [place] [address] [place] Triglyceride [Mass/Vol] 324 mg/dL High <150 [facility] Comment on above: Order Comment: Speci men Type: BLOOD SPECIMENOrdering Facility: [facility] Address: [address] [place] [address] Result Comment: <150 mg/dL, Normal 150-199 mg/dL, Borderline high 200-499 mg/dL, High >499 mg/dL, Very high Performed By: #### 2 132-9, 8 ####[facility] LABCLIA [id number] [place] [address] [place]#### 95160-4 ####[facility] LABCLIA [id number] [place] [address] [place] [facility] [id number] [place] [address] [place] Magnesium SerPl-ncon 08-05 Magnesium [Mass/Vol] 1.8 mg/dL Normal 1.7-2.3 [facility] Comment on above: Order Comment: Speci men Type: BLOOD SPECIMENOrdering Facility: [facility] Address: [address] [place] [address] Performed By: #### 2 4323-8, 24232-7 ####[facility] [id number] [place] [address] [place] PSA/PROSTATE SPECIFIC ANTIGE N SCREENINGon 08-05-2024 Prostate specific Ag [Mass/Vol] 4.82 ng/mL High <2.60 [facility] Comment on above: Order Comment: Speci men Type: BLOOD SPECIMENOrdering Facility: [facility] Address: [address] [place] [address] Result Comment: Tota l PSA test methodology used is the Electrochemiluminescence Immunoassay by [facility]. Total PSA values by differing methodologies cannot be interchanged. For an individual patient, the significance of a PSA level should be interpreted in a broad clinical context, including age, race, family history, digital rectal exam, prostate size, results of prior testing (prostate biopsy, free PSA, PCA3), and use of 5-alpha reductase inhibitors. Considering the high incidence of asymptomatic cancer in the general population that may not pose an ultimate risk to a patient, the decision to recommend urological evaluation or prostate biopsy should be individualized after consideration of all these factors. REFERENCE: Darryn Bertrand M.D., M.P.H., Valentino Benavidez M.D., Ph.D., Mikhail Lopez M.D., Lindsay Aguilar, M.P.H., Marcelle Garcia, Sc.Manan. Effect of Verification Bias on Screening for Prostate Cancer by Measurement of Prostatic Specific Antigen. N Engl J Med 2003,349:335-42. Performed By: #### P SAS1 ####[facility] LABCLIA [id number] [place] [address] [place] US CAROTID ARTERIES MARYANNE VAS LABon 08-05-2024 US CAROTID ARTERIES MARYANNE VAS LAB Non-Invasive Vascular Laboratory [facility] Carotid Duplex Bilateral/Complete Date of service/time: 08/05/2024 12:23:41 PM Name: MR. BETHANY MONTALVO Date of : 1965 Age: 58 years Gender: M Clinical Indication Follow-up study on a patient with known carotid disease. TECHNIQUE -------- A carotid duplex ultrasound examination was performed, including grayscale imaging and color Doppler and spectral Doppler examination of the below mentioned arteries. FINDINGS -------- RIGHT SIDE Common carotid artery: Origin: PSV: 115 cm/s. EDV: 27 cm/s. Proximal: PSV: 81 cm/s. EDV: 18 cm/s. Mid: PSV: 62 cm/s. EDV: 18 cm/s. Distal: PSV: 55 cm/s. EDV: 18 cm/s. Internal carotid artery: Origin: PSV: 78 cm/s. EDV: 23 cm/s. Proximal: PSV: 71 cm/s. EDV: 26 cm/s. Mid: PSV: 64 cm/s. EDV: 27 cm/s. Distal: PSV: 53 cm/s. EDV: 19 cm/s. Mild heterogeneous plaque at origin. ICA/CCA Ratio: 1.4 External carotid artery: Origin: PSV: 80 cm/s. EDV: 13 cm/s. Subclavian artery: Origin: PSV: 150 cm/s. EDV: 0 cm/s. Mild heterogeneous plaque at origin. Innominate artery: PSV: 95 cm/s. EDV: 10 cm/s. Vertebral artery: PSV: 40 cm/s. EDV: 15 cm/s. LEFT SIDE Common carotid artery: Proximal: PSV: 93 cm/s. EDV: 23 cm/s. Mid: PSV: 88 cm/s. EDV: 25 cm/s. Distal: PSV: 77 cm/s. EDV: 21 cm/s. Internal carotid artery: Origin: PSV: 72 cm/s. EDV: 24 cm/s. Proximal: PSV: 48 cm/s. EDV: 17 cm/s. Mid: PSV: 81 cm/s. EDV: 37 cm/s. Distal: PSV: 52 cm/s. EDV: 20 cm/s. Mild heterogeneous plaque from origin to proximal. ICA/CCA Ratio: 0.9 External carotid artery: Origin: PSV: 69 cm/s. EDV: 14 cm/s. Subclavian artery: Proximal: PSV: 104 cm/s. EDV: 0 cm/s. Vertebral artery: PSV: 29 cm/s. EDV: 8 cm/s. IMPRESSION Please note: the new carotid interpretation criteria are used as recommended by [employer]. When compared with the prior study, of 11/22/2022 no significant change is noted on the right side and no significant change is noted on the left side. RIGHT SIDE Internal carotid artery: <50% stenosis consistent with mild carotid artery disease. Vertebral artery: Patent and antegrade flow noted. Subclavian artery: Plaque visualized without evidence of hemodynamically significant stenosis. LEFT SIDE Internal carotid artery: <50% stenosis consistent with mild carotid artery disease. Vertebral artery: Patent and antegrade flow noted. Subclavian artery: Patent. Technologist: Lizzie Stephenson RVT [facility] Ordering physician: KEREN KWON Interpreting physician: NEFTALI Luna DO Final CC [employer] [facility] Image : [id number] goDynamicsSISUID See Link below for Image Normal [facility] Vit B12 [facility] 15-2 025 Cobalamin (Vitamin B12) [Mass/Vol] 366 pg/mL Normal 232-1245 [facility] Comment on above: Order Comment: Speci men Type: BLOOD SPECIMENOrdering Facility: [facility] Address: [address] [place] [address] Performed By: #### 2 132-9, 2284-8 ####[facility] LABCLIA [id number] [place] [address] [place]#### 36455-4 ####[facility] LABCLIA [id number] [place] [address] [facility] [id number] [place] [address] [facility] Ankle min 3 Viewson 07-23-19 Ankle min 3 Views [facility] Imaging Services [address] [place] [address] Ankle min 3 Views MR#: [id number] Acct: [id number] Name: BETHANY MONTALVO Rep #: [id number] : 1965 M 58 From: Sherwin wells MD PCP: XUAN Armendariz Status: PRE ER Study: Ankle min 3 Views Date of Exam: 07/23/24 Exam# [id number] Ordering Dr: Provider,Junaid P. [id number] STUDY: X-RAY - LEFT ANKLE REASON FOR EXAM: Male, 58 years old. FALL TECHNIQUE: 3 view(s) of the ankle. COMPARISON: None. FINDINGS: Normal visualized distal tibia and fibula. Mild cortical spurring at the undersurface and tip of the medial malleolus. No fracture or displaced bony fragment is present. Normal lateral malleolus. Normal tibiotalar articulation and ankle mortise. Normal visualized talus and calcaneus. The visualized subtalar, talonavicular, calcaneocuboid and tarsal articulations are normal. The soft tissue structures are unremarkable. RAD/Ankle min 3 Views IMPRESSION: No demonstrated fracture of the left ankle. Electronically Signed: Sherwin Iyer MD at 13:27 EST Reading Location ID and State: [facility] / [place] , Service support , CC: XUAN Kwon; ED PHYSICIAN PROVIDER [employer]rer And Wirer: Signed Normal [facility] Ankle min 3 Views [facility] Imaging Services [address] [place] [address] Ankle min 3 Views MR#: [id number] Acct: [id number] Name: BETHANY MONTALVO Rep #: [id number] : 1965 M 58 From: Sherwin wells MD PCP: XUAN Armendariz Status: PRE ER Study: Ankle min 3 Views Date of Exam: 07/23/24 Exam# [id number] Ordering Dr: Jordan,Junaid P. [id number] STUDY: X-RAY - RIGHT ANKLE REASON FOR EXAM: Male, 58 years old. FALL TECHNIQUE: view(s) of the ankle. COMPARISON: None. FINDINGS: Normal visualized distal tibia and fibula. Normal medial and lateral malleoli. Normal tibiotalar articulation and ankle mortise. Normal visualized talus and calcaneus. The visualized subtalar, talonavicular, calcaneocuboid and tarsal articulations are normal. There is no demonstrated fracture. The soft tissue structures are unremarkable. RAD/Ankle min 3 Views IMPRESSION: Normal x-ray examination of the ankle. Electronically Signed: Sherwin Iyer MD at 13:19 EST Reading Location ID and State: [facility] / [place] , Service support , CC: XUAN Kwon; ED PHYSICIAN PROVIDER Num[employer]rer And Wirer: Signed Normal [facility] Emergency Department Summary on 07-23-2024 Emergency Department Summary [facility] Medical Records Department [address] [place] [address] Emergency Department Summary 07/23/24 MR#: [id number] Acct: [id number] Name: BETHANY MONTALVO Rep #: [id number] : 1965 58 From: Nik Campbell DO PCP: XUAN Armendariz Status:DEP ER Location: ED HPI History of Present Illness Chief Complaint: Lower Extremity Injury [facility] Medical History Personal history of colon polyps, unspecified Family history of malignant neoplasm of colon in father Anxiety Kidney disease GERD (gastroesophageal reflux disease) GI bleed Sleep apnea Former smoker Asthma Irregular heart beat Myocardial infarct TIA (transient ischemic attack) Abdominal pain Alcohol withdrawal Acute dehydration Nausea vomiting Dehydration Alcoholic hepatitis Thrombocytopenia LUZ MARIA (acute kidney injury) Alcohol withdrawal Carotid artery disease Chronic kidney disease History of non-ST elevation myocardial infarction (NSTEMI) Coronary artery disease COPD (chronic obstructive pulmonary disease) Lung nodule Tobacco use WILSON (dyspnea on exertion) Fatigue Chest pain Heart failure COPD exacerbation Hypoxia Community acquired pneumonia Alcohol intoxication Suicidal ideation Atherosclerosis of coronary artery of [place] heart without angina pectoris Depression NSTEMI (non-ST elevated myocardial infarction) Obesity (BMI 30.0-34.9) Hyperlipidemia Hypertension Alcohol abuse Chest pain Home Medications ???Medication ???Instructions ???Recorded ???Last Taken ???Type omeprazole 20 mg capsule,delayed 20 mg PO DAILY heart burn 06/17/14 01/12/19 10:30 History release 20 MG nitroglycerin 0.4 mg sublingual 0.4 mg sublingual Q5M PRN Chest 12/24/22 Unknown Rx tablet Pain #25 tabs trazodone 50 mg tablet 50 mg PO QHS 12/24/22 Unknown History aspirin 81 mg tablet,delayed 81 mg PO DAILY heart #90 tabs 10/14/23 Unknown Rx release atorvastatin 40 mg tablet 40 mg PO QHS #90 tabs 10/14/23 Unknown Rx buspirone 10 mg tablet 5 mg PO TID depression 10/14/23 Unknown History carvedilol 3.125 mg tablet 3.125 mg PO BID #180 tabs 10/14/23 Unknown Rx cyclobenzaprine 10 mg tablet 10 mg PO DAILY PRN Pain 10/14/23 Unknown History folic acid 1 mg tablet 1 mg PO DAILY 10/14/23 Unknown History magnesium oxide 400 mg (241.3 mg 400 mg PO DAILY 10/14/23 Unknown History magnesium) tablet thiamine HCl (vitamin B1) 100 mg 100 mg PO DAILY 10/14/23 Unknown History tablet bisacodyl 5 mg tablet,delayed 5 mg PO ONCE colonoscopy prep #8 06/29/24 Unknown Rx release tabs omega-3 fatty acids 1,250 mg 1,250 mg PO QDAY 06/29/24 Unknown History capsule polyethylene glycol 3350 17 238 g PO ONCE colonoscopy prep 06/29/24 Unknown Rx gram/dose oral powder #238 grams Allergy/AdvReac Type Severity Reaction Status Date / Time No Known Allergies Allergy Verified 07/23/24 12:10 Family History Mother CAD (coronary artery disease) Father CAD (coronary artery disease) Colon cancer, Onset Age: 53 At 53yrs Brother CAD (coronary artery disease) Myocardial infarction Sister CAD (coronary artery disease) Surgical History Hx of colonoscopy History of coronary artery stent placement Stented coronary artery History of tonsillectomy Hx of eye surgery Social History (Updated 06/29/24 @ 14:05 by Sherine Mobley) household members: significant other housing: apartment current occupational status: employed current occupation: [employer] Smoking Status: Former smoker alcohol intake: current alcohol intake frequency: 3 or more drinks per day substance use type: former substance user caffeine: Yes Type: coffee Number of servings: 2 what type of physical activity do you participate in: none EXAM Physical Exam Const Vital Signs: 07/23/24 12:07 07/23/24 15:37 Temperature 97.1 F L Temperature Source Temporal Pulse Rate 136 H 110 H Respiratory Rate 22 H 20 H Blood Pressure 154/131 H 170/110 H Blood Pressure Mean 138 130 Pulse Ox 98 99 Oxygen Delivery Method Room Air Room Air MDM MDM MDM Narrative Medical decision making narrative: HISTORY OF PRESENT ILLNESS: 58-year-old male presents after fall from ladder. He notes this occurred on Saturday, 5 days prior to arrival. Notes that his ladder went out from under him. He states he fell approximately 5 feet. He injured bilateral legs. He denies back pain, head trauma or loss of consciousness. Denies upper extremity pain, chest pain abdominal pain or pain in his hips or pelvis. REVIEW OF SYSTEMS: Pertinent positives: Leg pain Pertinent negatives: Hip pain, back pain PHYSICAL EXAM: Nursing (more content not included)... Normal [facility] Foot min 3 Viewson 5 Foot min 3 Views [facility] Imaging Services [address] [place] [id number] Foot min 3 Views MR#: [id number] Acct: [id number] Name: BETHANY MONTALVO Rep #: [id number] : 1965 M 58 From: Sherwin wells MD PCP: XUAN Armendariz Status: PRE ER Study: Foot min 3 Views Date of Exam: 07/23/24 Exam# [id number] Ordering Dr: Junaid Ortega [id number] STUDY: X-RAY - LEFT FOOT CLINICAL: Male, 58 years old. FALL TECHNIQUE: 3 view(s) of the foot. COMPARISON: None. FINDINGS: Normal talus, calcaneus, and tarsal bones. Normal visualized subtalar, talonavicular, calcaneocuboid, tarsal and tarsometatarsal articulations. Normal metatarsi. Normal metatarsophalangeal joint of the great toe. Normal tibial and fibular sesamoid bones. Normal interphalangeal joint of the great toe. Normal phalanges of the great toe. Normal second through fifth metatarsophalangeal joints. Normal interphalangeal joints and phalanges of the lesser toes. The soft tissue structures are unremarkable. There is no demonstrated fracture. RAD/Foot min 3 Views IMPRESSION: Normal x-ray examination of the foot. Electronically Signed: Sherwin Iyer MD at 13:19 EST Reading Location ID and State: [facility] / [place] , Service support , CC: XUAN Kwon; ED PHYSICIAN PROVIDER Numberer And Wirer: Signed Normal [facility] Foot min 3 Views [facility] Imaging Services [address], [place] [address] Foot min 3 Views MR#: [id number] Acct: [id number] Name: BETHANY MONTALVO Rep #: [id number] : 1965 M 58 From: Sherwin wells MD PCP: XUAN Armendariz Status: PRE ER Study: Foot min 3 Views Date of Exam: 07/23/24 Exam# [id number] Ordering Dr: Jordan,Junaid P. [id number] STUDY: X-RAY - RIGHT FOOT CLINICAL: Male, 58 years old. FALL TECHNIQUE: view(s) of the foot. COMPARISON: None. FINDINGS: Normal talus, calcaneus, and tarsal bones. Normal visualized subtalar, talonavicular, calcaneocuboid, tarsal and tarsometatarsal articulations. Normal metatarsi. Normal metatarsophalangeal joint of the great toe. Normal tibial and fibular sesamoid bones. Normal interphalangeal joint of the great toe. Normal phalanges of the great toe. Normal second through fifth metatarsophalangeal joints. Normal interphalangeal joints and phalanges of the lesser toes. The soft tissue structures are unremarkable. RAD/Foot min 3 Views IMPRESSION: Normal x-ray examination of the foot. Electronically Signed: Sherwin Iyer MD at 13:27 EST Reading Location ID and State: [address] [place] [address] , Service support , CC: XUAN Kwon; ED PHYSICIAN PROVIDER Numberer And Wirer: Signed Normal [facility] Tibia Fibula 2 Viewson 07-23 Tibia Fibula 2 Views [facility] Imaging Services [address], [place] [address] Tibia Fibula 2 Views MR#: [id number] Acct: [id number] Name: BETHANY MONTALVO Rep #: [id number] : 1965 M 58 From: Sherwin wells MD PCP: XUAN Armendariz Status: PRE ER Study: Tibia Fibula 2 Views Date of Exam: 07/23/24 Exam# [id number] Ordering Dr: Junaid Ortega [id number] STUDY: X-RAY - LEFT TIBIA AND FIBULA REASON FOR EXAM: Male, 58 years old. PATIENT WAS ON A LADDER WHEN IT WENT OUT FROM UNDER HIM. LAND ON HIS FEET APPROXIMATELY 5 FOOT DROP. DENIES LOC AND NOT ON BLOOD THINNERS. TECHNIQUE: 2 view(s) of the tibia and fibula were obtained. COMPARISON: None. FINDINGS: Normal visualized tibia. Normal visualized fibula. There is no demonstrated acute fracture. The soft tissue structures are unremarkable. RAD/Tibia Fibula 2 Views IMPRESSION: Normal x-ray examination of the tibia and fibula. Electronically Signed: Sherwin Iyer MD at 13:22 EST Reading Location ID and State: [address] [place] [address] , Service support , CC: CHIEF CONTROLLER-Ang Kwon; ED PHYSICIAN PROVIDER Numberer And Wirer: Signed Normal [facility] Tibia Fibula 2 Views [facility] Imaging Services [address] [place] [id number] Tibia Fibula 2 Views MR#: [id number] Acct: [id number] Name: BETHANY MONTALVO Rep #: [id number] : 1965 M 58 From: Sherwin wells MD PCP: XUAN Armendariz Status: PRE ER Study: Tibia Fibula 2 Views Date of Exam: 07/23/24 Exam# [id number] Ordering Dr: Provider,Ed P. [id number] STUDY: X-RAY - RIGHT TIBIA AND FIBULA REASON FOR EXAM: Male, 58 years old. FALL TECHNIQUE: 2 view(s) of the tibia and fibula were obtained. COMPARISON: None. FINDINGS: Normal visualized tibia. Normal visualized fibula. There is no demonstrated acute fracture. The soft tissue structures are unremarkable. RAD/Tibia Fibula 2 Views IMPRESSION: Normal x-ray examination of the tibia and fibula. Electronically Signed: Sherwin Iyer MD at 13:22 EST Reading Location ID and State: [address] [place] [address] , Service support , CC: XUAN Kwon; ED PHYSICIAN PROVIDER Numberer And Wirer: Signed Normal [facility] Toe(s) Min 2 Viewson 025 Toe(s) Min 2 Views [facility] Imaging Services [address] [place] [address] Toe(s) Min 2 Views MR#: [id number] Acct: [id number] Name: BETHANY MONTALVO Rep #: [id number] : 1965 M 58 From: Sherwin wells MD PCP: XUAN Armendariz Status: PRE ER Study: Toe(s) Min 2 Views Date of Exam: 07/23/24 Exam# [id number] Ordering Dr: Jordan,Ed P. [id number] STUDY: X-RAY RIGHT FOOT, GREAT TOE REASON FOR EXAM: Male, 58 years old. PATIENT WAS ON A LADDER WHEN IT WENT OUT FROM UNDER HIM. LAND ON HIS FEET APPROXIMATELY 5 FOOT DROP. DENIES LOC AND NOT ON BLOOD THINNERS. TECHNIQUE: 3 view(s) of the forefoot/toe were obtained. COMPARISON: None. FINDINGS: Normal phalanges of the forefoot. Normal visualized aspects of the metatarsal bones. Normal metatarsophalangeal (M.T.P) joint. Normal interphalangeal joints. Normal phalanges and interphalangeal joints. There is no demonstrated fracture. The soft tissue structures are unremarkable. RAD/Toe(s) Min 2 Views IMPRESSION: 1. Normal x-ray of the toe. Electronically Signed: Sherwin Iyer MD at 13:28 EST Reading Location ID and State: [facility] / [place] , Service support , CC: XUAN Kwon; ED PHYSICIAN PROVIDER Numberer And Wirer: Signed Paul [facility] 07-13-2024 [facility] BETHANY MONTALVO ([id number]) 1965 M Date Time Provider Department 07/13/24 2:30 PM ROSA WADE [facility] During your visit today, we recorded the following information about you: Temperature Pulse Respiration Blood pressure 98.8 degrees 111/minute 18/minute 150/86 Weight 94.3 kg Rosa Wade APRN.CNP 07/13/2024 2:36 PM Signed This note was created using NoteWriter. Subjective Bethany Montalvo is a 58 year old male. HPI Pt has had a sore throat, body aches and nausea. Sore throat started about a week ago the other symptoms started a few days ago. Review of Systems Constitutional: Negative for fever. Respiratory: Positive for cough. Objective BP 150/86 Pulse 111 Temp 37.1 ?C (98.8 ?F) (Tympanic) Resp 18 Wt 94.3 kg (207 lb 14.3 oz) SpO2 97% BMI 29.00 kg/m? Physical Exam Vitals and nursing note reviewed. Constitutional: General: He is not in acute distress. Appearance: Normal appearance. He is not ill-appearing. HENT: Head: Normocephalic. Mouth/Throat: Mouth: Mucous membranes are moist. Pharynx: Posterior oropharyngeal erythema present. No oropharyngeal exudate. Eyes: Conjunctiva/sclera: Conjunctivae normal. Cardiovascular: Rate and Rhythm: Normal rate and regular rhythm. Pulmonary: Effort: Pulmonary effort is normal. Breath sounds: Normal breath sounds. Musculoskeletal: General: Normal range of motion. Cervical back: Normal range of motion. Skin: General: Skin is warm and dry. Neurological: General: No focal deficit present. Mental Status: He is alert. Psychiatric: Mood and Affect: Mood normal. Behavior: Behavior normal. Assessment and Plan ASSESSMENT/PLAN: 1. Acute cough - ICD9: 786.2, ICD10: R05.1 Patient's chest x-ray was unremarkable. He was swabbed for COVID however if he would test positive patient is out of the window for treatment. I discussed with him that his symptoms seem more viral in origin and recommended [id number] cough and cold medication and follow-up with PCP. - XR CHEST 2V FRONTAL/LAT - COVID AND INFLUENZA A/B AND RSV PCR, ROUTINE Rosa Wade APRN.DIGITAL SALES MANAGER Allergies As of Date: 07/13/2024 Noted Allergy Reaction SUDAFED (PSEUDOEPHEDRINE) 06/26/2016 14 - Other: See Comments Comments: Prostate infection Date Reviewed: 07/13/2024 Reviewed by: Rosa Wade APRN.DIGITAL SALES MANAGER - Fully Assessed Reason for Visit: Sore Throat [200] Cmt: ST, bodyaches and nausea x 1 week Primary Visit Diagnosis:Acute cough [R05.1] Order(s):XR CHEST 2V FRONTAL/LAT [[id number]] Order #: [id number] FUTURE COVID AND INFLUENZA A/B AND RSV PCR, ROUTINE [facility] Order #: [id number]. #:[id number] Prescriptions as of 07/13/2024 - atorvastatin (LIPITOR) 40 mg tablet Take 1 tablet by mouth daily at bedtime. - carvedilol (COREG) 3.125 mg tablet Take 1 tablet by mouth two times a day. - busPIRone (BUSPAR) 5 mg tablet Take 1 tablet by mouth three times a day as needed. - benzocaine-menthol (CEPACOL) 15-3.6 mg lozg Use 1 Lozenge as instructed every 2 hours as needed. - atorvastatin (LIPITOR) 40 mg tablet Take 1 tablet by mouth daily at bedtime. - carvedilol (COREG) 3.125 mg tablet Take 1 tablet by mouth two times a day. - aspirin, enteric coated (ECOTRIN LOW STRENGTH) 81 mg EC tablet Take 1 tablet by mouth once daily. - omeprazole (PRILOSEC) 20 mg capsule Take 1 capsule by mouth daily before breakfast. 1/2 hr before meal. - magnesium oxide 400 mg magnesium cap Take 1 capsule by mouth three times a day. - thiamine (VITAMIN B1) 100 mg tablet Take 1 tablet by mouth once daily. - folic acid 1 mg tablet Take 1 tablet by mouth once daily. - traZODone (DESYREL) 50 mg tablet Take 1 tablet by mouth at bedtime as needed. - cyclobenzaprine (FLEXERIL) 10 mg tablet Take 1 tablet by mouth once daily as needed. Problem List As Of Date 07/13/2024 Noted Resolved Moderate hypertension [I10] 08/24/2006 Anxiety and depression [F41.9, F32.A] 02/05/2014 Seasonal allergies [J30.2] 02/05/2014 Renal insufficiency [N28.9] 02/05/2014 History of skull fracture [Z87.81] 02/05/2014 Hypertriglyceridemia [E78.1] 02/05/2014 Chronic alcohol abuse [F10.10] 02/05/2014 Unilateral inguinal hernia without obstruction *07/09/2016 NSTEMI (non-ST elevated myocardial infarction) *11/29/2017 Presence of drug-eluting stent in left circumfl*11/29/2017 Acute right-sided low back pain without sciatic*03/16/2019 Bilateral carotid artery stenosis [I65.23] 01/14/2020 GERD without esophagitis [K21.9] 11/05/2022 Letter Text Encounter Status:Closed by ROSA WADE on 07/13/24 Normal [facility] COVID AND INFLUENZA A/B AND RSV PCR, ROUTINEon 07-13-2024 SARS-CoV-2 (COVID-19) RNA ABBY+probe Ql (Unsp spec) SARS-COV-2 (AGENT OF COVID-19) RNA: Not detected INFLUENZA A RNA: Not detected INFLUENZA B RNA: Not detected RESPIRATORY SYNCYTIAL VIRUS (RSV) RNA: Not detected Normal [facility] Comment on above: Performed By: #### C VFLRS ####[facility] LABCLIA [id number] [address] [place] XR CHEST 2V FRONTAL/LATon XR CHEST 2V FRONTAL/LAT * * *Final Report* * * DATE OF EXAM: Jul 13 2024 2:06PM WOX [id number] - XR CHEST 2V FRONTAL/LAT / PROCEDURE REASON: Acute cough * * * * Physician Interpretation * * * * EXAMINATION: CHEST RADIOGRAPH (2 VIEW FRONTAL and LATERAL) CLINICAL HISTORY: Acute cough MQ: XC2_6 EXAM DATE/TIME: 07/13/2024 2:06 PM COMPARISON: 02/19/2022 RESULT: Lines, tubes, and devices: None. Lungs and pleura: No consolidation. No lung mass. No pleural effusion. No pneumothorax. Cardiomediastinal silhouette: Normal cardiomediastinal silhouette. Bones and soft tissues: Unremarkable. IMPRESSION: No acute radiographic abnormality. Numberer And Wirer: PSCB Transcribe Date/Time: Jul 13 2024 2:08P Dictated by : DIPESH STEELE MD This examination was interpreted and the report reviewed and electronically signed by: DIPESH STEELE MD on Jul 13 2024 2:08PM EST [id number] Normal [facility] XR Chest PA and Lateralon IMPRESSION: No acute radiographic abnormality. Numberer And Wirer: PSCB Transcribe Date/Time: Jul 13 2024 2:08P Dictated by : DIPESH STEELE MD This examination was interpreted and the report reviewed and electronically signed by: DIPESH STEELE MD on Jul 13 2024 2:08PM [facility] DIVISION OF RADIOLOGY * * *Final Report* * * DATE OF EXAM: Jul 13 2024 2:06PM WOX 5291 - XR CHEST 2V FRONTAL/LAT / PROCEDURE REASON: Acute cough * * * * Physician Interpretation * * * * EXAMINATION: CHEST RADIOGRAPH (2 VIEW FRONTAL & LATERAL) CLINICAL HISTORY: Acute cough MQ: XC2_6 EXAM DATE/TIME: 07/13/2024 2:06 PM COMPARISON: 02/19/2022 RESULT: Lines, tubes, and devices: None. Lungs and pleura: No consolidation. No lung mass. No pleural effusion. No pneumothorax. Cardiomediastinal silhouette: Normal cardiomediastinal silhouette. Bones and soft tissues: Unremarkable. DIVISION OF RADIOLOGY Provider, [facility] - 07/13/2024 * * *Final Report* * * DATE OF EXAM: Jul 13 2024 2:06PM WOX 5291 - XR CHEST 2V FRONTAL/LAT / PROCEDURE REASON: Acute cough * * * * Physician Interpretation * * * * EXAMINATION: CHEST RADIOGRAPH (2 VIEW FRONTAL & LATERAL) CLINICAL HISTORY: Acute cough MQ: XC2_6 EXAM DATE/TIME: 07/13/2024 2:06 PM COMPARISON: 02/19/2022 RESULT: Lines, tubes, and devices: None. Lungs and pleura: No consolidation. No lung mass. No pleural effusion. No pneumothorax. Cardiomediastinal silhouette: Normal cardiomediastinal silhouette. Bones and soft tissues: Unremarkable. IMPRESSION IMPRESSION: No acute radiographic abnormality. Numberer And Wirer: PSCB Transcribe Date/Time: Jul 13 2024 2:08P Dictated by : DIPESH STEELE MD This examination was interpreted and the report reviewed and electronically signed by: DIPESH STEELE MD on Jul 13 2024 2:08PM [facility] Radiology Study observation (narrative) [facility] XR Chest PA and LateralOrder ed By: [facility] Provider on 07-13-2024 [facility]OV[facility] 07-09-2024 [facility] Office Visit ([facility] ) BETHANY MONTALVO ([id number]) 1965 M Date Time Provider Department 07/09/24 5:00 PM DESMOND DUNCAN [facility] During your visit today, we recorded the following information about you: Temperature Pulse Respiration Blood pressure 98.4 degrees 98/minute 18/minute 128/78 Weight 97.2 kg Desmond Duncan, GERARDO.DIGITAL SALES MANAGER 07/09/2024 6:04 PM Signed Subjective HPI Nontoxic-appearing male presents urgent care chief complaint sore throat body aches chills headache cough. Duration of symptoms few days. Associated symptoms listed above. Additionally has had right elbow injury for about 1 week. States he struck his elbow on a rail at work. Presents today for evaluation. Oopon-xfkp-[id number]. Denies any other injuries. OTC medications none recently. Past medical history prescription medications allergies reviewed. .Patient presents with: Elbow Injury: Right, hit railing at working, pain x 1 week Sore Throat: X 1 week PAST MEDICAL HISTORY Diagnosis Date Alcohol abuse Anxiety and depression 07/09/2016 Bilateral carotid artery stenosis 01/14/2020 40-59% bilateral. Chronic alcohol abuse Chronic insomnia Coronary artery disease due to lipid rich plaque CSF abnormal GERD (gastroesophageal reflux disease) GERD with esophagitis 01/29/2019 HTN (hypertension) Hypertriglyceridemia Hypomagnesemia Moderate hypertension Renal insufficiency Syncope Tubular adenoma of colon 01/29/2019 PAST SURGICAL HISTORY Procedure Laterality Date COLONOSCOPY FLX DX W/COLLJ SPEC WHEN PFRMD 01/12/2019 Colonoscopy CRANIO/MAXILLO-FACIAL SURGERY 1989 orbital blow out fracture/ [place] ESOPHAGOGASTRODUODENOSCOPY TRANSORAL DIAGNOSTIC 01/12/2019 EGD PTCA SNGL VSSL LC 11/21/2017 JUSTIN left circ TONSILLECTOMY HX TREAT SHOULDERBLADE FRACTURE UPPER GI ENDOSCPY, W/BIOPSY, SNGL OR MULT 01/12/2019 ALLERGIES Sudafed [Pseudoephedrine] MEDICATIONS atorvastatin (LIPITOR) 40 mg tablet Take 1 tablet by mouth daily at bedtime. carvedilol (COREG) 3.125 mg tablet Take 1 tablet by mouth two times a day. aspirin, enteric coated (ECOTRIN LOW STRENGTH) 81 mg EC tablet Take 1 tablet by mouth once daily. omeprazole (PRILOSEC) 20 mg capsule Take 1 capsule by mouth daily before breakfast. 1/2 hr before meal. busPIRone (BUSPAR) 5 mg tablet Take 1 tablet by mouth three times a day as needed. magnesium oxide 400 mg magnesium cap Take 1 capsule by mouth three times a day. thiamine (VITAMIN B1) 100 mg tablet Take 1 tablet by mouth once daily. folic acid 1 mg tablet Take 1 tablet by mouth once daily. traZODone (DESYREL) 50 mg tablet Take 1 tablet by mouth at bedtime as needed. cyclobenzaprine (FLEXERIL) 10 mg tablet Take 1 tablet by mouth once daily as needed. FAMILY HISTORY Problem Relation Age of Onset Psychiatry Mother Heart Mother [place] 53 Heart Father [place] 51 Colon Cancer Father Social History Tobacco Use Smoking status: Former Current packs/day: 0.00 Average packs/day: 0.5 packs/day for 30.4 years (15.2 ttl pk-yrs) Types: Cigarettes Start date: 12/30/1983 Quit date: 05/30/2014 Years since quittin.1 Smokeless tobacco: Current Types: Chew Tobacco comments: Very few, very infrequently. Father smoked in childhood home. Vaping Use Vaping status: Never Used Substance Use Topics Alcohol use: Yes Alcohol/week: 84.0 standard drinks of alcohol Types: 84 Cans of Beer (12oz) per week Comment: Binge drinking at times, worse with stress. Drug use: Yes Types: Marijuana Comment: Occassional marijuana, 03/2014. Huffed spray paint and glue briefly, ages 8-9. Whippets in mid to late teens. TO BP 128/78 (BP Site: Left Arm, BP Position: Sitting) Pulse 98 Temp 36.9 ?C (98.4 ?F) Resp 18 Wt 97.2 kg (214 lb 4.6 oz) SpO2 97% BMI 29.89 kg/m? Review of Systems Constitutional: Positive for malaise/fatigue. Negative for chills and fever. HENT: Positive for congestion and sore throat. Negative for ear discharge, ear pain and sinus pain. Eyes: Negative for blurred vision, pain, discharge and redness. Respiratory: Positive for cough. Negative for hemoptysis, sputum production, shortness of breath, wheezing and stridor. Cardiovascular: Negative for chest pain. Gastrointestinal: Negative for abdominal pain, diarrhea, nausea and vomiting. Musculoskeletal: Positive for joint pain and myalgias. Skin: Negative for itching and rash. Neurological: Negative for dizziness and headaches. Objective Physical Exam Constitutional: General: He is not in acute distress. Appearance: He is not diaphoretic. HENT: Head: Normocephalic. Jaw: No trismus, tenderness, swelling or pain on movement. Nose: Congestion present. Mouth/Throat: Mouth: Mucous membranes are moist. Pharynx: Oropharynx is clear. Uvula midline. Posterior oropharyngeal erythema present. No pharyngeal swel (more content not included)... Normal [facility] 07-09-2024 [facility] Telephone ([facility]) BETHANY MONTALVO ([id number]) 1965 M Date Time Provider Department 07/09/24 DESMOND DUNCAN [facility] During your visit today, we recorded the following information about you: Desmond Duncan APRN.CNP 07/09/2024 6:03 PM Signed Please inform patient that x-ray is normal. Follow-up with orthopedics if symptoms persist. VENKAT Smith Gillian, OCCA 07/09/2024 6:26 PM Signed TC no answer. Unable to leave VM d/t mailbox not set up. Please try again later. ERIC Capone Brandi, LPN 07/10/2024 7:22 PM Signed Unable to reach pt on 2nd attempt due to no VM being set up. HARMONY Gorman Sabrina, MA 07/12/2024 3:05 PM Signed Pt was notified of the results. Pt verbalized understanding. Ariela Avelar MA Allergies As of Date: 07/09/2024 Noted Allergy Reaction SUDAFED (PSEUDOEPHEDRINE) 06/26/2016 14 - Other: See Comments Comments: Prostate infection Date Reviewed: 07/09/2024 Reviewed by: Desmond Duncan APRN.DIGITAL SALES MANAGER - Fully Assessed Reason for Visit: Results [95] Prescriptions as of 07/12/2024 - busPIRone (BUSPAR) 5 mg tablet Take 1 tablet by mouth three times a day as needed. - benzocaine-menthol (CEPACOL) 15-3.6 mg lozg Use 1 Lozenge as instructed every 2 hours as needed. - atorvastatin (LIPITOR) 40 mg tablet Take 1 tablet by mouth daily at bedtime. - carvedilol (COREG) 3.125 mg tablet Take 1 tablet by mouth two times a day. - aspirin, enteric coated (ECOTRIN LOW STRENGTH) 81 mg EC tablet Take 1 tablet by mouth once daily. - omeprazole (PRILOSEC) 20 mg capsule Take 1 capsule by mouth daily before breakfast. 1/2 hr before meal. - magnesium oxide 400 mg magnesium cap Take 1 capsule by mouth three times a day. - thiamine (VITAMIN B1) 100 mg tablet Take 1 tablet by mouth once daily. - folic acid 1 mg tablet Take 1 tablet by mouth once daily. - traZODone (DESYREL) 50 mg tablet Take 1 tablet by mouth at bedtime as needed. - cyclobenzaprine (FLEXERIL) 10 mg tablet Take 1 tablet by mouth once daily as needed. Problem List As Of Date 07/09/2024 Noted Resolved Moderate hypertension [I10] 08/24/2006 Anxiety and depression [F41.9, F32.A] 02/05/2014 Seasonal allergies [J30.2] 02/05/2014 Renal insufficiency [N28.9] 02/05/2014 History of skull fracture [Z87.81] 02/05/2014 Hypertriglyceridemia [E78.1] 02/05/2014 Chronic alcohol abuse [F10.10] 02/05/2014 Unilateral inguinal hernia without obstruction *07/09/2016 NSTEMI (non-ST elevated myocardial infarction) *11/29/2017 Presence of drug-eluting stent in left circumfl*11/29/2017 Acute right-sided low back pain without sciatic*03/16/2019 Bilateral carotid artery stenosis [I65.23] 01/14/2020 GERD without esophagitis [K21.9] 11/05/2022 Encounter Status:Closed by ARIELA AVELAR on 07/12/24 Normal [facility] STREP A MOLECULAR (POC)on Procedural Control Valid [facility] Strep A (POCT) Negative Negative [facility] XR ELBOW 3V AP/LAT/OTHER RTo n 07-09-2024 XR ELBOW 3V AP/LAT/OTHER RT * * *Final Report* * * DATE OF EXAM: Jul 09 2024 5:17PM WOX 5325 - XR ELBOW 3V AP/LAT/OTHER RT / PROCEDURE REASON: Injury of right elbow, initial encounter * * * * Physician Interpretation * * * * RIGHT ELBOW X-RAY SERIES HISTORY: Injury of right elbow, initial encounter TECHNIQUE: PA, lateral and oblique views. COMPARISON: None available. RESULT: No fracture, dislocation or destructive changes. Joint spaces and articular surfaces are preserved. There are enthesophytes involving the medial/lateral epicondyles and olecranon No joint effusion is identified. IMPRESSION: No acute osseous abnormalities are identified. Numberer And Wirer: JOHN Transcribe Date/Time: Jul 09 2024 5:59P Dictated by : MICHELA KESSLER MD This examination was interpreted and the report reviewed and electronically signed by: MICHELA KESSLER MD on Jul 09 2024 6:01PM EST [id number] Normal [facility] XR Elbow - right AP and Late ral and obliqueon 07-09-2024 IMPRESSION: No acute osseous abnormalities are identified. Numberer And Wirer: [facility] Transcribe Date/Time: Jul 09 2024 5:59P Dictated by : MICHELA KESSLER MD This examination was interpreted and the report reviewed and electronically signed by: MICHELA KESSLER MD on Jul 09 2024 6:01PM EST DIVISION OF RADIOLOGY * * *Final Report* * * DATE OF EXAM: Jul 09 2024 5:17PM WOX 5325 - XR ELBOW 3V AP/LAT/OTHER RT / PROCEDURE REASON: Injury of right elbow, initial encounter * * * * Physician Interpretation * * * * RIGHT ELBOW X-RAY SERIES HISTORY: Injury of right elbow, initial encounter TECHNIQUE: PA, lateral and oblique views. COMPARISON: None available. RESULT: No fracture, dislocation or destructive changes. Joint spaces and articular surfaces are preserved. There are enthesophytes involving the medial/lateral epicondyles and olecranon No joint effusion is identified. DIVISION OF RADIOLOGY [facility] * * *Final Report* * * DATE OF EXAM: Jul 09 2024 5:17PM WOX 5325 - XR ELBOW 3V AP/LAT/OTHER RT / PROCEDURE REASON: Injury of right elbow, initial encounter * * * * Physician Interpretation * * * * RIGHT ELBOW X-RAY SERIES HISTORY: Injury of right elbow, initial encounter TECHNIQUE: PA, lateral and oblique views. COMPARISON: None available. RESULT: No fracture, dislocation or destructive changes. Joint spaces and articular surfaces are preserved. There are enthesophytes involving the medial/lateral epicondyles and olecranon No joint effusion is identified. IMPRESSION IMPRESSION: No acute osseous abnormalities are identified. Numberer And Wirer: [facility] Transcribe Date/Time: Jul 09 2024 5:59P Dictated by : MICHELA KESSLER MD This examination was interpreted and the report reviewed and electronically signed by: MICHELA KESSLER MD on Jul 09 2024 6:01PM EST [facility] Radiology Study observation (narrative) [facility] XR Elbow - right AP and Late ral and obliqueOrdered By: [facility] Provider on 07-09-2024 [facility] CNOVon 06-22-2024 CNOV Office Visit (GENSWS ) BETHANY MONTALVO ([id number]) 1965 M Date Time Provider Department 06/22/24 4:00 PM ALMA DELIA GARZA [facility] During your visit today, we recorded the following information about you: Temperature Pulse Blood pressure Weight 98.9 degrees 107/minute 142/92 98.2 kg Height 1.803 m Alma Delia Garza APRN.CNP 06/22/2024 4:31 PM Signed HISTORY AND PHYSICAL Bethany Montalvo : 1965 REFERRING PHYSICIAN: Keren Kwon [address] [facility] [address] CHIEF COMPLAINT: Patient presents with: Consult: colonoscopy HPI: Bethany is a 58 year old male referred for endoscopy. Bethany notes due for screening colonoscopy, family hx of colon cancer in father AND personal hx of polyps (2019). Bethany denies abdominal pain.. Bethany denies diarrhea. Bethany denies constipation. Bethany denies a change in bowel habits. Bethany denies melena. Bethany denies bright red blood per rectum. Bethany denies hemorrhoids. Bethany notes a distant history of heartburn. -well controlled on Prilosec Bethany denies dysphagia. Bethany denies a history of ulcers/ peptic ulcer disease. Bethany notes family history of colon issues. Father with colon cancer Bethany has a hx of alcoholism, currently drinking 6, 5.5% beers every other day. Hx of CAD with stent placement in 2018. Denies CP, SOB, dizziness, palpitations, syncope, edema, recent hospitalizations. Last ECHO 2022 with EF of 54% and no ischemia. Follows with [facility]. Bethany notes he is under a lot of stress currently- his partner was discharged early from rehab for an ankle fx and he is her primary caregiver. Bethany has undergone prior endoscopy. Last EGD AND colonoscopy 12/[address] Payton at [facility]. Sedation: MAC EGD Impression: -Normal examined jejunum -Normal examined duodenum -Gastritis. Biopsied. -A few gastric polyps. Resected AND retrieved. -Mildly severe reflux esophagitis. Biopsied. COLONOSCOPY Impression: -The examined portion of the ileum was normal. Biopsied. -The entire examined colon is normal. Biopsied. -Two small polyps at the recto-sigmoid colon, removed with a cold snare. Resected AND retrieved. -The distal rectum and anal verge are normal on retroflexion view. -Diverticulosis in the sigmoid colon. Pathology demonstrated gastric mucosa with no significant pathologic changes, fundic gland polyp, negative testing for H. Pylori. Biopsies from the gastro-esophageal junction showed mild chronic inflammation, negative for intestinal goblet cells, negative for dysplasia. Terminal ileum biopsy showed small bowel mucosa with mild chronic nonspecific inflammation in the lamina propria. Random colonic biopsies showed mild chronic nonspecific inflammation in the lamina propria, negative for active colitis or dysplasia. Polyp tissue demonstrated fragments of tubular adenoma and hyperplastic polyps. Current Outpatient Medications Medication Sig atorvastatin (LIPITOR) 40 mg tablet Take 1 tablet by mouth daily at bedtime. carvedilol (COREG) 3.125 mg tablet Take 1 tablet by mouth two times a day. aspirin, enteric coated (ECOTRIN LOW STRENGTH) 81 mg EC tablet Take 1 tablet by mouth once daily. omeprazole (PRILOSEC) 20 mg capsule Take 1 capsule by mouth daily before breakfast. 1/2 hr before meal. busPIRone (BUSPAR) 5 mg tablet Take 1 tablet by mouth three times a day as needed. magnesium oxide 400 mg magnesium cap Take 1 capsule by mouth three times a day. thiamine (VITAMIN B1) 100 mg tablet Take 1 tablet by mouth once daily. folic acid 1 mg tablet Take 1 tablet by mouth once daily. traZODone (DESYREL) 50 mg tablet Take 1 tablet by mouth at bedtime as needed. cyclobenzaprine (FLEXERIL) 10 mg tablet Take 1 tablet by mouth once daily as needed. No current facility-administered medications for this visit. ALLERGIES: Sudafed [Pseudoephedrine] PAST MEDICAL HISTORY Diagnosis Date Alcohol abuse Anxiety and depression 07/09/2016 Bilateral carotid artery stenosis 01/14/2020 40-59% bilateral. Chronic alcohol abuse Chronic insomnia Coronary artery disease due to lipid rich plaque CSF abnormal GERD (gastroesophageal reflux disease) GERD with esophagitis 01/29/2019 HTN (hypertension) Hypertriglyceridemia Hypomagnesemia Moderate hypertension Renal insufficiency Syncope Tubular adenoma of colon 01/29/2019 PAST SURGICAL HISTORY Procedure Laterality Date COLONOSCOPY FLX DX W/COLLJ SPEC WHEN PFRMD 01/12/2019 Colonoscopy CRANIO/MAXILLO-FACIAL SURGERY 1989 orbital blow out fracture/ [place]ordo ESOPHAGOGASTRODUODENOSCOPY TRANSORAL DIAGNOSTIC 01/12/2019 EGD PTCA SNGL VSSL LC 11/21/2017 JUSTIN left circ TONSILLECTOMY HX TREAT SHOULDERBLADE FRACTURE UPPER GI ENDOSCPY, W/BIOPSY, SNGL OR MULT 01/12/2019 FAMILY HISTORY Problem Relation Age of Onset Psychiatry Mother Heart Mother (more content not included)... [facility] ([facility]) BETHANY MONTALVO ([id number]) 1965 Date Time Provider Department 06/22/24 ALMA DELIA GARZA [facility] During your visit today, we recorded the following information about you: Alma Delia Garza APRN.DIGITAL SALES MANAGER 06/22/2024 4:30 PM Signed Please fax GI consult to Dr. Lovell at [facility]. Thank you, Alma Delia Garza APRN.Jaret Pinto MA 06/23/2024 4:48 PM Signed Faxed as requested. Jaret Paulino MA Allergies As of Date: 06/22/2024 Noted Allergy Reaction SUDAFED (PSEUDOEPHEDRINE) 06/26/2016 14 - Other: See Comments Comments: Prostate infection Date Reviewed: 06/22/2024 Reviewed by: Alma Delia Garza APRN.DIGITAL SALES MANAGER - Fully Assessed Prescriptions as of 06/23/2024 - atorvastatin (LIPITOR) 40 mg tablet Take 1 tablet by mouth daily at bedtime. - carvedilol (COREG) 3.125 mg tablet Take 1 tablet by mouth two times a day. - aspirin, enteric coated (ECOTRIN LOW STRENGTH) 81 mg EC tablet Take 1 tablet by mouth once daily. - omeprazole (PRILOSEC) 20 mg capsule Take 1 capsule by mouth daily before breakfast. 1/2 hr before meal. - busPIRone (BUSPAR) 5 mg tablet Take 1 tablet by mouth three times a day as needed. - magnesium oxide 400 mg magnesium cap Take 1 capsule by mouth three times a day. - thiamine (VITAMIN B1) 100 mg tablet Take 1 tablet by mouth once daily. - folic acid 1 mg tablet Take 1 tablet by mouth once daily. - traZODone (DESYREL) 50 mg tablet Take 1 tablet by mouth at bedtime as needed. - cyclobenzaprine (FLEXERIL) 10 mg tablet Take 1 tablet by mouth once daily as needed. Problem List As Of Date 06/22/2024 Noted Resolved Moderate hypertension [I10] 08/24/2006 Anxiety and depression [F41.9, F32.A] 02/05/2014 Seasonal allergies [J30.2] 02/05/2014 Renal insufficiency [N28.9] 02/05/2014 History of skull fracture [Z87.81] 02/05/2014 Hypertriglyceridemia [E78.1] 02/05/2014 Chronic alcohol abuse [F10.10] 02/05/2014 Unilateral inguinal hernia without obstruction *07/09/2016 NSTEMI (non-ST elevated myocardial infarction) *11/29/2017 Presence of drug-eluting stent in left circumfl*11/29/2017 Acute right-sided low back pain without sciatic*03/16/2019 Bilateral carotid artery stenosis [I65.23] 01/14/2020 GERD without esophagitis [K21.9] 11/05/2022 Encounter Status:Closed by JARET PAULINO on 06/23/24 [facility] CNOVon 06-12-2024 [facility] B[facility] MONTALVO ([id number]) 1965 M Date Time Provider Department 06/12/24 2:40 PM [facility] During your visit today, we recorded the following information about you: Pulse Respiration Blood pressure Weight 82/minute 16/minute 130/92 97.1 kg Keren Kwon APRN.CHRISTIANA 06/12/2024 5:54 PM Signed This is a 58 year old male who presents today with: Patient presents with: Recheck: Medication refills HISTORY OF PRESENT ILLNESS: Bethanyabbie Montalvo is a 58 year old male. Patient presents with: Recheck: Medication refills Pt presents today for recheck. He needs refills. Refers that he has been taking his carvedilol, atorvastatin, and ASA. Out of everything else. Anxiety Weaned off of the sertraline. Has been off for about 1 1/2 months. States if he missed a dose of the sertraline, it would affect his ability to work. Still has some buspar that he takes intermittently. Denies SI/HI. ETOH 6 drinks of every other day (5.5% ETOH beer). Trying to work on decreasing ETOH. CAD: Denies any chest pain/SOB. Following with [facility]. Last appt in September. GERD: Stable on PPI. PAST MEDICAL HISTORY: PAST MEDICAL HISTORY Diagnosis Date Alcohol abuse Bilateral carotid artery stenosis 01/14/2020 40-59% bilateral. CSF abnormal GERD (gastroesophageal reflux disease) HTN (hypertension) Syncope PAST SURGICAL HISTORY Procedure Laterality Date COLONOSCOPY BX SINGLE/MULTI 01/12/2019 COLONOSCOPY FLX DX W/COLLJ SPEC WHEN PFRMD 01/12/2019 Colonoscopy CRANIO/MAXILLO-FACIAL SURGERY 1989 orbital blow out fracture/ [place] ESOPHAGOGASTRODUODENOSCOPY TRANSORAL DIAGNOSTIC 01/12/2019 EGD PTCA SNGL VSSL LC 11/21/2017 JUSTIN left circ TONSILLECTOMY HX TREAT SHOULDERBLADE FRACTURE UPPER GI ENDOSCPY, W/BIOPSY, SNGL OR MULT 01/12/2019 ALLERGIES Sudafed [Pseudoephedrine] MEDICATIONS Current Outpatient Medications Medication Sig magnesium oxide 400 mg magnesium cap Take 1 capsule by mouth three times daily. carvedilol (COREG) 12.5 mg tablet Take 1 tablet by mouth twice daily. cyclobenzaprine (FLEXERIL) 10 mg tablet Take 1 tablet by mouth once daily as needed. omeprazole (PRILOSEC) 20 mg capsule Take 1 capsule by mouth daily before breakfast. 1/2 hr before meal. traZODone (DESYREL) 50 mg tablet Take 1 tablet by mouth at bedtime as needed. busPIRone (BUSPAR) 5 mg tablet Take 1 tablet by mouth three times daily as needed. atorvastatin (LIPITOR) 80 mg tablet Take 1 tablet by mouth daily at bedtime. thiamine (VITAMIN B1) 100 mg tablet Take 1 tablet by mouth once daily. sertraline (ZOLOFT) 50 mg tablet One pill by mouth daily aspirin, enteric coated (ECOTRIN LOW STRENGTH) 81 mg EC tablet Take 1 tablet by mouth once daily. amLODIPine (NORVASC) 5 mg tablet Take 1 tablet by mouth once daily. ezetimibe (ZETIA) 10 mg tablet Take 1 tablet by mouth once daily. lisinopril (ZESTRIL) 10 mg tablet Take 1 tablet by mouth once daily. folic acid 1 mg tablet Take 1 tablet by mouth once daily. No current facility-administered medications for this visit. FAMILY HISTORY Problem Relation Age of Onset Psychiatry Mother Heart Mother [place] 53 Heart Father [place] 51 Colon Cancer Father Social History Tobacco Use Smoking status: Former Current packs/day: 0.00 Average packs/day: 0.5 packs/day for 30.4 years (15.2 ttl pk-yrs) Types: Cigarettes Start date: 12/30/1983 Quit date: 05/30/2014 Years since quittin.0 Smokeless tobacco: Current Types: Chew Tobacco comments: Very few, very infrequently. Father smoked in childhood home. Substance Use Topics Alcohol use: Yes Alcohol/week: 84.0 standard drinks of alcohol Types: 84 Cans of Beer (12oz) per week Comment: Binge drinking at times, worse with stress. Drug use: Yes Types: Marijuana Comment: Occassional marijuana, 03/2014. Huffed spray paint and glue briefly, ages 8-9. Whippets in mid to late teens. TO EXAM: BP 130/92 Pulse 82 Resp 16 Wt 97.1 kg (214 lb) SpO2 96% BMI 30.98 kg/m? PHYSICAL EXAM: General Appearance: Well appearing, alert, in no acute distress, well-hydrated, well nourished.. Skin: Skin color, texture, turgor normal, no suspicious rashes or lesions. Head: Normocephalic, no masses, lesions, tenderness or abnormalities. Eyes: Anicteric sclera. Pupils are equally round and reactive to light. Extraocular movements are intact. . Neck: Supple, no adenopathy; thyroid symmetric, normal size, no bruits. Lungs: Lungs clear to auscultation. No wheezing, rhonchi, rales.. Heart: RRR without murmur, gallop, or rubs. No ectopy. Extremities: No deformities, edema, skin discoloration, clubbing or cyanosis. Good capillary refill. . Neurologic: Gait normal ASSESSMENT/PLAN: 1. Coronary artery disease due to lipid rich plaque - ICD9: 414.00, 414.3, ICD10: I25.10, I25. (more content not included)... Normal [facility]ie Basophil percentageOrdered B y: Casey Brewer on 10-14-2023 Bilirubin [Mass/Vol] 0.70 mg/dL 0.20-1.00 [facility] Comment on above: For patients on eltr ombopag therapy, use of Dimension [place] TBIL is not recommended. Chloride [Moles/Vol] 102 mmol/L 98-107 [facility] Glucose [Mass/Vol] 97 mg/dL 74-106 [facility] Hemoglobin (Bld) [Mass/Vol] 14.9 g/dL 13.0-16.5 [facility] Potassium [Moles/Vol] 4.8 mmol/L 3.5-5.1 [facility] Protein [Mass/Vol] 7.3 g/dL 6.4-8.2 [facility] Sodium [Moles/Vol] 137 mmol/L 136-145 [facility] WBC (Bld) [#/Vol] 6.0 10*3/uL 4.4-11.0 [facility] Determination of erythrocyte mean corpuscular volume (MCV)Ordered By: Casey Brewer on 10-14-2023 MCV (RBC) [Entitic vol] 95.4 fL 80-94 [facility] Erythrocyte distribution wid th ratioOrdered By: Caseymanan Brewer on 10-14-2023 Erythrocyte distribution width (RBC) [Ratio] 13.0 % 11.6-14.6 [facility] Erythrocyte distribution wid th standard deviationOrdered By: Caseymanan Brewer on 10-14-2023 Erythrocyte distribution width (RBC) [Entitic vol] 45.4 fL 35.1-43.9 [facility] Hematocrit Auto (Bld) [Volum e fraction]Ordered By: Caseymanan Brewer on 10-14-2023 Hematocrit (Bld) [Volume fraction] 43.3 % 40-54 [facility] Laboratory - Chemistry and C hemistry - challengeOrdered By: Casey Brewer on 10-14-2023 Albumin/Globulin [Mass ratio] 1.1 {ratio} 0.9-2.4 [facility] ALP [Catalytic activity/Vol] 80 U/L 45-117 [facility] ALT [Catalytic activity/Vol] 47 U/L 16-61 [facility] CO2 [Moles/Vol] 32.0 mmol/L 21.0-32.0 [facility] Globulin (S) [Mass/Vol] 3.4 g/dL 2.2-4.2 [facility] Urea nitrogen/Creatinine [Mass ratio] 8.1 mg/mg 10-20 [facility] Laboratory - Hematology and Cell countsOrdered By: Casey Brewer on 10-14-2023 MCH (RBC) [Entitic mass] 32.8 pg 27.0-32.0 [facility] MCHC (RBC) [Mass/Vol] 34.4 g/dL 32-36 [facility] Platelet mean volume (Bld) [Entitic vol] 9.3 fL 6.2-12.0 [facility] Platelets (Bld) [#/Vol] 145 10*3/uL 150-450 [facility] No Panel InformationOrdered By: Casey Brewer on 10-14-2023 Estimated GFR (MDRD) Amer 63 mL/min >60 [facility] Comment on above: GFR Calc Estimated GFR (MDRD) Non-Af Amer 52 mL/min >60 [facility] Comment on above: Non- GFR Calc RBC Auto (Bld) [#/Vol]Ordere d By: Casey Brewer on 10-14-2023 RBC (Bld) [#/Vol] 4.54 10*6/uL 4.6-6.2 [facility] Serum or plasma calcium raina urement (mass/volume)Ordered By: Casey Brewer on 10-14-2023 Calcium [Mass/Vol] 9.4 mg/dL 8.5-10.1 [facility] Serum or plasma creatinine m easurement (mass/volume)Ordered By: Casey Brewer on 10-14-2023 Creatinine [Mass/Vol] 1.49 mg/dL 0.70-1.30 [facility] Comment on above: The validity of the calculated GFR & GFRAA in patients over 70 years has not been determined. Clinical correlation is essential. Serum or plasma urea nitroge n measurement (mass/volume)Ordered By: Casey Brewer on 10-14-2023 Urea nitrogen [Mass/Vol] 12 mg/dL 7-18 [facility] Thin prep Papanicolaou smear with manual screeningOrdered By: Casey Brewer on 10-14-2023 Thin prep Papanicolaou smear with manual screening 3.9 g/dL 3.2-5.0 [facility] Thin prep Papanicolaou smear with manual screening 55 U/L 15-37 [facility] Thin prep Papanicolaou smear with manual screening 3 5-15 [facility] Basophil percentageOrdered B y: Shakeel Valera on 05-16-2023 Basophil percentage 3.1 mg/dL 2.5-4.9 [facility] Chloride [Moles/Vol] 107 mmol/L 98-107 [facility] Glucose [Mass/Vol] 92 mg/dL 74-106 [facility] Potassium [Moles/Vol] 3.7 mmol/L 3.5-5.1 [facility] Sodium [Moles/Vol] 139 mmol/L 136-145 [facility] Laboratory - Chemistry and C hemistry - challengeOrdered By: Shakeel Valera on 05-16-2023 CO2 [Moles/Vol] 27.0 mmol/L 21.0-32.0 [facility] Magnesium [Mass/Vol] 1.6 mg/dL 1.6-2.6 [facility] Urea nitrogen/Creatinine [Mass ratio] 5.1 mg/mg 10-20 [facility] No Panel InformationOrdered By: Shakeel Valera on 05-16-2023 Estimated Creatinine Clearance Calc 86.90 ml/min [facility] Estimated GFR (MDRD) Amer 101 mL/min >60 [facility] Comment on above: GFR Calc Estimated GFR (MDRD) Non-Af Amer 84 mL/min >60 [facility] Comment on above: Non- GFR Calc Serum or plasma calcium raina urement (mass/volume)Ordered By: Shakeel Valera on 05-16-2023 Calcium [Mass/Vol] 7.8 mg/dL 8.5-10.1 [facility] Serum or plasma creatinine m easurement (mass/volume)Ordered By: Shakeel Valera on 05-16-2023 Creatinine [Mass/Vol] 0.98 mg/dL 0.70-1.30 [facility] Comment on above: The validity of the calculated GFR & GFRAA in patients over 70 years has not been determined. Clinical correlation is essential. Serum or plasma urea nitroge n measurement (mass/volume)Ordered By: Shakeel Valera on 05-16-2023 Urea nitrogen [Mass/Vol] 5 mg/dL 7-18 [facility] Thin prep Papanicolaou smear with manual screeningOrdered By: Shakeel Valera on 05-16-2023 Thin prep Papanicolaou smear with manual screening 5 5-15 [facility] Basophil percentageOrdered B y: Shakeel Valera on 05-15-2023 Bilirubin [Mass/Vol] 1.60 mg/dL 0.20-1.00 [facility] Comment on above: For patients on eltr ombopag therapy, use of Dimension [employer] TBIL is not recommended. Protein [Mass/Vol] 5.5 g/dL 6.4-8.2 [facility] Laboratory - Chemistry and C hemistry - challengeOrdered By: Shakeel Valera on 05-15-2023 ALP [Catalytic activity/Vol] 118 U/L 45-117 [facility] ALT [Catalytic activity/Vol] 87 U/L 16-61 [facility] Globulin (S) [Mass/Vol] 2.8 g/dL 2.2-4.2 [facility] Serum or plasma albumin raina urement (mass/volume)Ordered By: Shakeel Valera on 05-15-2023 Albumin [Mass/Vol] 2.7 g/dL 3.2-5.0 [facility] Serum or plasma albumin/glob ulin mass ratioOrdered By: Shakeel Valera on 05-15-2023 Albumin/Globulin [Mass ratio] 1.0 {ratio} 0.9-2.4 [facility] Thin prep Papanicolaou smear with manual screeningOrdered By: Shakeel Valera on 05-15-2023 Thin prep Papanicolaou smear with manual screening 85 U/L 15-37 [facility] Absolute lymphocyte countOrd ered By: Lorena Bennett on 05-14-2023 Lymphocytes Auto (Unsp spec) [#/Vol] 1.52 10*3/uL 0.83-4.51 [facility] Basophil percentageOrdered B y: Lorena Bennett on 05-14-2023 Basophils/100 WBC (Bld) 0.4 % 0-1 [facility] Eosinophils/100 WBC (Bld) 1.8 % 0-5 [facility] Neutrophils (Bld) [#/Vol] 2.5 10*3/uL 2.0-7.7 [facility] Neutrophils/100 WBC (Bld) 55.9 % 47-70 [facility] WBC (Bld) [#/Vol] 4.5 10*3/uL 4.4-11.0 [facility] Blood erythrocytes count (nu mber/volume)Ordered By: Lorena Bennett on 05-14-2023 RBC (Bld) [#/Vol] 3.43 10*6/uL 4.6-6.2 [facility] Blood hemoglobin measurement (mass/volume)Ordered By: Lorena Bennett on 05-14-2023 Hemoglobin (Bld) [Mass/Vol] 11.5 g/dL 13.0-16.5 [facility] Blood lymphocytes/100 leukoc ytesOrdered By: Lorena Bennett on 05-14-2023 Lymphocytes/100 WBC (Bld) 34.1 % 19-41 [facility] Blood monocytes/100 leukocyt esOrdered By: Lorena Bennett on 05-14-2023 Monocytes/100 WBC (Bld) 7.6 % 0-10 [facility] Blood platelet adequacy dete ction by light microscopyOrdered By: Lorena Bennett on 05-14-2023 Platelets LM Ql (Bld) MOD DEC ADEQ [facility] Blood platelet mean volumeOr dered By: Lorena Bennett on 05-14-2023 Platelet mean volume (Bld) [Entitic vol] 9.8 fL 6.2-12.0 [facility] Determination of erythrocyte mean corpuscular volume (MCV)Ordered By: Lorena Bennett on 10-24-2023 MCV (RBC) [Entitic vol] 100.9 fL 80-94 [facility] Hematocrit Auto (Bld) [Volum e fraction]Ordered By: Lorena Bennett on 05-14-2023 Hematocrit (Bld) [Volume fraction] 34.6 % 40-54 [facility] Laboratory - Hematology and Cell countsOrdered By: Lorena Bennett on 05-14-2023 Erythrocyte distribution width (RBC) [Entitic vol] 46.6 fL 35.1-43.9 [facility] Erythrocyte distribution width (RBC) [Ratio] 12.7 % 11.6-14.6 [facility] Immature granulocytes/100 WBC (Bld) 0.200 % 0.0-0.9 [facility] Comment on above: IG% - Immature Granu locytes (promyelocytes, myelocytes and metamyelocytes) > 1% indicates that a LEFT SHIFT is Present. MCH (RBC) [Entitic mass] 33.5 pg 27.0-32.0 [facility] Nucleated RBC/100 WBC (Bld) [Ratio] 0 % 0-5 [facility] MCHC Auto (RBC) [Mass/Vol]Or dered By: Lorena Bennett on 05-14-2023 MCHC (RBC) [Mass/Vol] 33.2 g/dL 32-36 [facility] Platelets bldOrdered By: Angeles Bennett on 05-14-2023 Platelets (Bld) [#/Vol] 75 10*3/uL 150-450 [facility] Absolute lymphocyte countOrd ered By: Jaun Sazn on 05-13-2023 Lymphocytes Auto (Unsp spec) [#/Vol] 1.18 10*3/uL 0.83-4.51 [facility] Basophil percentageOrdered B y: Jaun Sanz on 05-13-2023 Lactate [Moles/Vol] 0.4 mmol/L 0.4-2.0 [facility] Basophil percentage 0-5 SEEN /hpf 0-5 [facility] Basophils/100 WBC (Bld) 0.5 % 0-1 [facility] Bilirubin [Mass/Vol] 4.20 mg/dL 0.20-1.00 [facility] Comment on above: For patients on eltr ombopag therapy, use of Dimension Ge[employer] TBIL is not recommended. Chloride [Moles/Vol] 101 mmol/L 98-107 [facility] Eosinophils/100 WBC (Bld) 0.3 % 0-5 [facility] Glucose [Mass/Vol] 129 mg/dL 74-106 [facility] Comment on above: Fasting Glucose resu lt greater than or equal to 126 mg/dL suggests DIABETES MELLITUS per A.D.A. criteria. Neutrophils (Bld) [#/Vol] 4.7 10*3/uL 2.0-7.7 [facility] Neutrophils/100 WBC (Bld) 72.9 % 47-70 [facility] Potassium [Moles/Vol] 4.2 mmol/L 3.5-5.1 [facility] Comment on above: Moderate Hemolysis, Result may be falsely increased. Protein [Mass/Vol] 8.3 g/dL 6.4-8.2 [facility] Sodium [Moles/Vol] 138 mmol/L 136-145 [facility] WBC (Bld) [#/Vol] 6.4 10*3/uL 4.4-11.0 [facility] Bilirubin Test strip Ql (U)O rdered By: Jaun Sanz on 05-13-2023 Bilirubin Ql (U) 3 mg/dL Negative [facility] Comment on above: COLOR OF URINE MAY A FFECT DIPSTICK RESULTS. Blood erythrocytes count (nu mber/volume)Ordered By: Jaun Sanz on 05-13-2023 RBC (Bld) [#/Vol] 4.93 10*6/uL 4.6-6.2 [facility] Blood hemoglobin measurement (mass/volume)Ordered By: Jaun Sanz on 05-13-2023 Hemoglobin (Bld) [Mass/Vol] 16.1 g/dL 13.0-16.5 [facility] Blood lymphocytes/100 leukoc ytesOrdered By: Jaun Sanz on 05-13-2023 Lymphocytes/100 WBC (Bld) 18.4 % 19-41 [facility] Blood monocytes/100 leukocyt esOrdered By: Jaun Sanz on 05-13-2023 Monocytes/100 WBC (Bld) 7.6 % 0-10 [facility] Blood platelet mean volumeOr dered By: Jaun Sanz on 05-13-2023 Platelet mean volume (Bld) [Entitic vol] 9.9 fL 6.2-12.0 [facility] Determination of erythrocyte mean corpuscular volume (MCV)Ordered By: Jaun Sanz on 05-13-2023 MCV (RBC) [Entitic vol] 97.0 fL 80-94 [facility] Hematocrit Auto (Bld) [Volum e fraction]Ordered By: Jaun Sanz on 05-13-2023 Hematocrit (Bld) [Volume fraction] 47.8 % 40-54 [facility] Hyaline casts LM.LPF (Urine sed) [#/Area]Ordered By: Jaun Sanz on 05-13-2023 Hyaline casts (Urine sed) [#/Area] /[LPF] 0-5 [facility] Ketones Test strip Ql (U)Ord ered By: Jaun Sanz on 05-13-2023 Ketones Ql (U) 15 mg/dl Negative [facility] Laboratory - Chemistry and C hemistry - challengeOrdered By: Jaun Sanz on 05-13-2023 ALP [Catalytic activity/Vol] 207 U/L 45-117 [facility] ALT [Catalytic activity/Vol] 197 U/L 16-61 [facility] CO2 [Moles/Vol] 23.0 mmol/L 21.0-32.0 [facility] Globulin (S) [Mass/Vol] 4.2 g/dL 2.2-4.2 [facility] Lipase [Catalytic activity/Vol] 56 U/L 13-75 [facility] Comment on above: Please note:LIPASE r evised reference range effective 22. New Lipase methodology. Expected to produce lower values than the previous assay method. NEW Reference Range: 13 - 75 U/L Urea nitrogen/Creatinine [Mass ratio] 5.8 mg/mg 10-20 [facility] Laboratory - Hematology and Cell countsOrdered By: Jaun Sanz on 05-13-2023 Erythrocyte distribution width (RBC) [Entitic vol] 44.6 fL 35.1-43.9 [facility] Erythrocyte distribution width (RBC) [Ratio] 12.4 % 11.6-14.6 [facility] Immature granulocytes/100 WBC (Bld) 0.300 % 0.0-0.9 [facility] Comment on above: IG% - Immature Granu locytes (promyelocytes, myelocytes and metamyelocytes) > 1% indicates that a LEFT SHIFT is Present. MCH (RBC) [Entitic mass] 32.7 pg 27.0-32.0 [facility] Nucleated RBC/100 WBC (Bld) [Ratio] 0 % 0-5 [facility] MCHC Auto (RBC) [Mass/Vol]Or dered By: Jaun Sanz on 05-13-2023 MCHC (RBC) [Mass/Vol] 33.7 g/dL 32-36 [facility] Mucus LM Ql (Urine sed)Order ed By: Jaun Sanz on 05-13-2023 Mucus Ql (Urine sed) 0 SEEN /hpf [facility] Nitrite Test strip Ql (U)Ord ered By: Jaun Sanz on 05-13-2023 Nitrite Ql (U) Negative Negative [facility] No Panel InformationOrdered By: Jaun Sanz on 05-13-2023 Estimated Creatinine Clearance Calc 45.06 ml/min [facility] Estimated GFR (MDRD) Amer 48 mL/min >60 [facility] Comment on above: GFR Calc Estimated GFR (MDRD) Non-Af Amer 39 mL/min >60 [facility] Comment on above: Non- GFR Calc Ethyl Alcohol Level < 3.0 mg/dL [facility] Comment on above: The serum:whole bloo d ethanol ratio is approximately 1.14and varies slightly with hematocrit. Medical Alcohol reference interval and critical value innon-tolerant individuals; 50 - 100 Impairment 100 Intoxication 100 - 250 Severe Poisoning 250 - 400 Deep/possible fatal coma Platelets bldOrdered By: Mary Alice Sanz on 05-13-2023 Platelets (Bld) [#/Vol] 111 10*3/uL 150-450 [facility] Protein Test strip Ql (U)Ord ered By: Jaun Sanz on 05-13-2023 Protein Ql (U) 100 mg/dl Negative [facility] Serum or plasma albumin raina urement (mass/volume)Ordered By: Jaun Sanz on 05-13-2023 Albumin [Mass/Vol] 4.1 g/dL 3.2-5.0 [facility] Serum or plasma albumin/glob ulin mass ratioOrdered By: Jaun Sanz on 05-13-2023 Albumin/Globulin [Mass ratio] 1.0 {ratio} 0.9-2.4 [facility] Serum or plasma calcium raina urement (mass/volume)Ordered By: Jaun Sanz on 05-13-2023 Calcium [Mass/Vol] 9.2 mg/dL 8.5-10.1 [facility] Serum or plasma creatinine m easurement (mass/volume)Ordered By: Jaun Sanz on 05-13-2023 Creatinine [Mass/Vol] 1.89 mg/dL 0.70-1.30 [facility] Comment on above: The validity of the calculated GFR & GFRAA in patients over 70 years has not been determined. Clinical correlation is essential. Serum or plasma urea nitroge n measurement (mass/volume)Ordered By: Jaun Sanz on 05-13-2023 Urea nitrogen [Mass/Vol] 11 mg/dL 7-18 [facility] Squamous epithelial cells de tection in urine sediment by light microscopyOrdered By: Jaun Sanz on 05-13-2023 Epithelial cells.squamous LM Ql (Urine sed) 0 SEEN /hpf 0-5 [facility] Stool enteric pathogen panel by probe and target amplification methodOrdered By: Lorena Bennett on 05-13-2023 Gastrointestinal pathogens panel ABBY+probe (Stl) [facility] Thin prep Papanicolaou smear with manual screeningOrdered By: Jaun Sanz on 05-13-2023 Thin prep Papanicolaou smear with manual screening 255 U/L 15-37 [facility] Comment on above: Moderate Hemolysis, Result may be falsely increased. Thin prep Papanicolaou smear with manual screening 14 5-15 [facility] Urine blood detectionOrdered By: Jaun Sanz on 05-13-2023 RBC Ql (U) 10 /ul Negative [facility] RBC Ql (U) 0 SEEN /hpf 0-5 [facility] Urine clarityOrdered By: Mary Alice Sanz on 05-13-2023 Clarity (U) Clear Clear [facility] Urine color determinationOrd ered By: Jaun Sanz on 05-13-2023 Color (U) SEE COMMENT BELOW Yellow [facility] Comment on above: Visual Urine Color: ORANGE Urine glucose detectionOrder ed By: Jaun Sanz on 05-13-2023 Glucose Ql (U) Normal mg/dl Normal [facility] Urine leukocyte esterase det ection by dipstickOrdered By: Jaun Sanz on 05-13-2023 Leukocyte esterase Test strip Ql (U) 25 /ul Negative [facility] Urine pHOrdered By: Jaun scott on 05-13-2023 pH (U) 5.0 [pH] 5.0 - 8.0 [facility] Urine sediment bacteria coun t by microscopy (number/high power field)Ordered By: Jaun Sanz on 05-13-2023 Bacteria LM.HPF (Urine sed) [#/Area] 0 /[HPF] None Seen [facility] Urine specific gravity measu rementOrdered By: Jaun Sanz on 05-13-2023 Specific gravity (U) [Rel density] 1.020 1.002-1.03 0 [facility] Urobilinogen Auto test strip Ql (U)Ordered By: Jaun Sanz on 05-13-2023 Urobilinogen Ql (U) 8 mg/dl Normal [facility] Absolute lymphocyte countOrd ered By: Casey Brewer on 04-01-2023 Lymphocytes Auto (Unsp spec) [#/Vol] 1.28 10*3/uL 0.83-4.51 [facility] Basophil percentageOrdered B y: Casey Brewer on 04-01-2023 Basophils/100 WBC (Bld) 0.2 % 0-1 [facility] Bilirubin [Mass/Vol] 1.70 mg/dL 0.20-1.00 [facility] Comment on above: For patients on eltr ombopag therapy, use of Dimension Geismar TBIL is not recommended. Chloride [Moles/Vol] 100 mmol/L 98-107 [facility] Eosinophils/100 WBC (Bld) 0.8 % 0-5 [facility] Glucose [Mass/Vol] 93 mg/dL 74-106 [facility] Neutrophils (Bld) [#/Vol] 4.5 10*3/uL 2.0-7.7 [facility] Neutrophils/100 WBC (Bld) 71.3 % 47-70 [facility] Potassium [Moles/Vol] 3.5 mmol/L 3.5-5.1 [facility] Protein [Mass/Vol] 7.5 g/dL 6.4-8.2 [facility] Sodium [Moles/Vol] 136 mmol/L 136-145 [facility] WBC (Bld) [#/Vol] 6.3 10*3/uL 4.4-11.0 [facility] Blood erythrocytes count (nu mber/volume)Ordered By: Casey Brewer on 04-01-2023 RBC (Bld) [#/Vol] 4.10 10*6/uL 4.6-6.2 [facility] Blood hemoglobin measurement (mass/volume)Ordered By: Casey Brewer on 04-01-2023 Hemoglobin (Bld) [Mass/Vol] 13.3 g/dL 13.0-16.5 [facility] Blood lymphocytes/100 leukoc ytesOrdered By: Caseymanan Brewer on 04-01-2023 Lymphocytes/100 WBC (Bld) 20.3 % 19-41 [facility] Blood monocytes/100 leukocyt esOrdered By: Caseymanan Brewer on 04-01-2023 Monocytes/100 WBC (Bld) 7.1 % 0-10 [facility] Blood platelet mean volumeOr dered By: Casey Brewer on 04-01-2023 Platelet mean volume (Bld) [Entitic vol] 9.5 fL 6.2-12.0 [facility] Determination of erythrocyte mean corpuscular volume (MCV)Ordered By: Casey Brewer on 04-01-2023 MCV (RBC) [Entitic vol] 98.8 fL 80-94 [facility] Hematocrit Auto (Bld) [Volum e fraction]Ordered By: Caseymanan Brewer on 04-01-2023 Hematocrit (Bld) [Volume fraction] 40.5 % 40-54 [facility] Laboratory - Chemistry and C hemistry - challengeOrdered By: Casey Brewer on 04-01-2023 ALP [Catalytic activity/Vol] 146 U/L 45-117 [facility] ALT [Catalytic activity/Vol] 54 U/L 16-61 [facility] CO2 [Moles/Vol] 27.0 mmol/L 21.0-32.0 [facility] Globulin (S) [Mass/Vol] 3.7 g/dL 2.2-4.2 [facility] Urea nitrogen/Creatinine [Mass ratio] 8.3 mg/mg 10-20 [facility] Laboratory - Hematology and Cell countsOrdered By: Casey Brewer on 04-01-2023 Erythrocyte distribution width (RBC) [Entitic vol] 46.5 fL 35.1-43.9 [facility] Erythrocyte distribution width (RBC) [Ratio] 12.8 % 11.6-14.6 [facility] Immature granulocytes/100 WBC (Bld) 0.300 % 0.0-0.9 [facility] Comment on above: IG% - Immature Granu locytes (promyelocytes, myelocytes and metamyelocytes) > 1% indicates that a LEFT SHIFT is Present. MCH (RBC) [Entitic mass] 32.4 pg 27.0-32.0 [facility] Nucleated RBC/100 WBC (Bld) [Ratio] 0 % 0-5 [facility] MCHC Auto (RBC) [Mass/Vol]Or dered By: Casey Brewer on 04-01-2023 MCHC (RBC) [Mass/Vol] 32.8 g/dL 32-36 [facility] No Panel InformationOrdered By: Casey Brewer on 04-01-2023 Estimated GFR (MDRD) Amer 72 mL/min >60 [facility] Comment on above: GFR Calc Estimated GFR (MDRD) Non-Af Amer 60 mL/min >60 [facility] Comment on above: Non- GFR Calc Thyroid Stimulating Hormone (TSH) 1.08 uIU/mL 0.358-3.74 [facility] Platelets bldOrdered By: Valdemar Brewer on 04-01-2023 Platelets (Bld) [#/Vol] 118 10*3/uL 150-450 [facility] Serum or plasma albumin raina urement (mass/volume)Ordered By: Casey Brewer on 04-01-2023 Albumin [Mass/Vol] 3.8 g/dL 3.2-5.0 [facility] Serum or plasma albumin/glob ulin mass ratioOrdered By: Casey Brewer on 04-01-2023 Albumin/Globulin [Mass ratio] 1.0 {ratio} 0.9-2.4 [facility] Serum or plasma calcium raina urement (mass/volume)Ordered By: Casey Brewer on 04-01-2023 Calcium [Mass/Vol] 9.1 mg/dL 8.5-10.1 [facility] Serum or plasma creatinine m easurement (mass/volume)Ordered By: Casey Brewer on 04-01-2023 Creatinine [Mass/Vol] 1.32 mg/dL 0.70-1.30 [facility] Comment on above: The validity of the calculated GFR & GFRAA in patients over 70 years has not been determined. Clinical correlation is essential. Serum or plasma urea nitroge n measurement (mass/volume)Ordered By: Casey Brewer on 04-01-2023 Urea nitrogen [Mass/Vol] 11 mg/dL 7-18 [facility] Thin prep Papanicolaou smear with manual screeningOrdered By: Casey Brewer on 04-01-2023 Thin prep Papanicolaou smear with manual screening 52 U/L 15-37 [facility] Thin prep Papanicolaou smear with manual screening 9 5-15 [facility] CBC W Auto Differential pane l (Bld)on 01-22-2023 Basophils (Bld) [#/Vol] 0.03 10*3/uL <0.11 k/uL [facility] Basophils/100 WBC (Bld) 0.4 % [facility] Differential cell count method Nom (Bld) Auto [facility] Eosinophils (Bld) [#/Vol] 0.07 10*3/uL <0.46 k/uL [facility] Eosinophils/100 WBC (Bld) 1.0 % [facility] Erythrocyte distribution width (RBC) [Ratio] 13.2 % 11.5 - 15.0 % [facility] Hematocrit (Bld) [Volume fraction] 38.6 % Low 39.0 - 51.0 % [facility] Hemoglobin (Bld) [Mass/Vol] 13.0 g/dL 13.0 - 17.0 g/dL [facility] Immature granulocytes (Bld) [#/Vol] <0.10 k/uL [facility] Immature granulocytes/100 WBC (Bld) 0.3 % [facility] Lymphocytes (Bld) [#/Vol] 1.33 10*3/uL 1.00 - 4.00 k/uL [facility] Lymphocytes/100 WBC (Bld) 19.3 % [facility] MCH (RBC) [Entitic mass] 32.3 pg 26.0 - 34.0 pg [facility] MCHC (RBC) [Mass/Vol] 33.7 g/dL 30.5 - 36.0 g/dL [facility] MCV (RBC) [Entitic vol] 95.8 fL 80.0 - 100.0 fL [facility] Monocytes (Bld) [#/Vol] 0.63 10*3/uL <0.87 k/uL [facility] Monocytes/100 WBC (Bld) 9.2 % [facility] Neutrophils (Bld) [#/Vol] 4.80 10*3/uL 1.45 - 7.50 k/uL [facility] Neutrophils/100 WBC (Bld) 69.8 % [facility] Nucleated RBC (Bld) [#/Vol] <0.01 k/uL [facility] Nucleated RBC/100 WBC (Bld) [Ratio] 0.0 /100 WBC [facility] Platelet mean volume (Bld) [Entitic vol] 10.1 fL 9.0 - 12.7 fL [facility] Platelets (Bld) [#/Vol] 146 10*3/uL Low 150 - 400 k/uL [facility] RBC (Bld) [#/Vol] 4.03 10*6/uL Low 4.20 - 6.00 m/uL [facility] WBC (Bld) [#/Vol] 6.88 10*3/uL 3.70 - 11.00 k/uL [facility] Hepatic function 2000 panelo n 01-22-2023 Albumin [Mass/Vol] 4.4 g/dL 3.9 - 4.9 g/dL [facility] ALP [Catalytic activity/Vol] 136 U/L High 38 - 113 [facility] ALT [Catalytic activity/Vol] 112 U/L High 10 - 54 [facility] AST [Catalytic activity/Vol] 169 U/L High 14 - 40 U/L [facility] Bilirubin [Mass/Vol] 0.6 mg/dL 0.2 - 1 .3 mg/dL [facility] Bilirubin.conjugated [Mass/Vol] 0.2 mg/dL High <0.2 mg/dL [facility] Protein [Mass/Vol] 6.6 g/dL 6.3 - 8.0 g/dL [facility] MAGNESIUM BLDon 01-22-2023 Magnesium [Mass/Vol] 1.5 mg/dL Low 1.7 - 2 .3 mg/dL [facility] Absolute lymphocyte countOrd ered By: Abdoulaye Wesley on 01-02-2023 Lymphocytes Auto (Unsp spec) [#/Vol] 0.96 10*3/uL 0.83-4.51 [facility] Basophil percentageOrdered B y: Abdoulaye Wesley on 01-02-2023 Basophils/100 WBC (Bld) 0.7 % 0-1 [facility] Chloride [Moles/Vol] 100 mmol/L 98-107 [facility] Eosinophils/100 WBC (Bld) 0.9 % 0-5 [facility] Glucose [Mass/Vol] 110 mg/dL 74-106 [facility] Comment on above: Fasting Glucose resu lt from 100 to 125 mg/dL suggests IMPAIRED HOMEOSTASIS per A.D.A. criteria. Neutrophils (Bld) [#/Vol] 2.9 10*3/uL 2.0-7.7 [facility] Neutrophils/100 WBC (Bld) 68.4 % 47-70 [facility] Potassium [Moles/Vol] 4.6 mmol/L 3.5-5.1 [facility] Comment on above: Moderate Hemolysis, Result may be falsely increased. Sodium [Moles/Vol] 136 mmol/L 136-145 [facility] WBC (Bld) [#/Vol] 4.2 10*3/uL 4.4-11.0 [facility] Blood erythrocytes count (nu mber/volume)Ordered By: Abdoulaye Wesley on 01-02-2023 RBC (Bld) [#/Vol] 4.85 10*6/uL 4.6-6.2 [facility] Blood hemoglobin measurement (mass/volume)Ordered By: Abdoulaye Wesley on 01-02-2023 Hemoglobin (Bld) [Mass/Vol] 15.7 g/dL 13.0-16.5 [facility] Blood lymphocytes/100 leukoc ytesOrdered By: Abdoulaye Wesley on 01-02-2023 Lymphocytes/100 WBC (Bld) 22.7 % 19-41 [facility] Blood monocytes/100 leukocyt esOrdered By: Abdoulaye Wesley on 01-02-2023 Monocytes/100 WBC (Bld) 7.3 % 0-10 [facility] Blood platelet mean volumeOr dered By: Abdoulaye Wesley on 01-02-2023 Platelet mean volume (Bld) [Entitic vol] 9.3 fL 6.2-12.0 [facility] Determination of erythrocyte mean corpuscular volume (MCV)Ordered By: Abdoulaye Wesley on 01-02-2023 MCV (RBC) [Entitic vol] 93.6 fL 80-94 [facility] Hematocrit Auto (Bld) [Volum e fraction]Ordered By: Abdoulaye Wesley on 01-02-2023 Hematocrit (Bld) [Volume fraction] 45.4 % 40-54 [facility] Laboratory - Chemistry and C hemistry - challengeOrdered By: Abdoulaye Wesley on 01-02-2023 CO2 [Moles/Vol] 28.0 mmol/L 21.0-32.0 [facility] Urea nitrogen/Creatinine [Mass ratio] 7.8 mg/mg 10-20 [facility] Laboratory - Hematology and Cell countsOrdered By: Abdoulaye Wesley on 01-02-2023 Erythrocyte distribution width (RBC) [Entitic vol] 42.9 fL 35.1-43.9 [facility] Erythrocyte distribution width (RBC) [Ratio] 12.5 % 11.6-14.6 [facility] Immature granulocytes/100 WBC (Bld) 0.000 % 0.0-0.9 [facility] Comment on above: IG% - Immature Granu locytes (promyelocytes, myelocytes and metamyelocytes) > 1% indicates that a LEFT SHIFT is Present. MCH (RBC) [Entitic mass] 32.4 pg 27.0-32.0 [facility] Nucleated RBC/100 WBC (Bld) [Ratio] 0 % 0-5 [facility] MCHC Auto (RBC) [Mass/Vol]Or dered By: Abdoulaye Wesley on 01-02-2023 MCHC (RBC) [Mass/Vol] 34.6 g/dL 32-36 [facility] No Panel InformationOrdered By: Abdoulaye Wesley on 01-02-2023 Estimated Creatinine Clearance Calc 60.40 ml/min [facility] Estimated GFR (MDRD) Amer 67 mL/min >60 [facility] Comment on above: GFR Calc Estimated GFR (MDRD) Non-Af Amer 55 mL/min >60 [facility] Comment on above: Non- GFR Calc Troponin I High Sensitivity 9 pg/mL 3.0-78.0 [facility] Comment on above: Please Note: New Michelle t Units and Gender Specific Reference Ranges. For more information see Policy Stat Procedure [employer] High Sensitivity Troponin (TNIH) and attachments. Platelets bldOrdered By: Jack Wesley on 01-02-2023 Platelets (Bld) [#/Vol] 117 10*3/uL 150-450 [facility] Serum or plasma calcium raina urement (mass/volume)Ordered By: Abdoulaye Wesley on 01-02-2023 Calcium [Mass/Vol] 8.9 mg/dL 8.5-10.1 [facility] Serum or plasma creatinine m easurement (mass/volume)Ordered By: Abdoulaye Wesley on 01-02-2023 Creatinine [Mass/Vol] 1.41 mg/dL 0.70-1.30 [facility] Comment on above: The validity of the calculated GFR & GFRAA in patients over 70 years has not been determined. Clinical correlation is essential. Serum or plasma urea nitroge n measurement (mass/volume)Ordered By: Abdoulaye Wesley on 01-02-2023 Urea nitrogen [Mass/Vol] 11 mg/dL 7-18 [facility] Thin prep Papanicolaou smear with manual screeningOrdered By: Abdoulaye Wesley on 01-02-2023 Thin prep Papanicolaou smear with manual screening 8 - [facility] CBC W Auto Differential pane l (Bld)on 11-05-2022 Basophils (Bld) [#/Vol] <0.11 k/uL [facility] Basophils/100 WBC (Bld) 0.3 % [facility] Differential cell count method Nom (Bld) Auto [facility] Eosinophils (Bld) [#/Vol] 0.11 10*3/uL <0.46 k/uL [facility] Eosinophils/100 WBC (Bld) 1.7 % [facility] Erythrocyte distribution width (RBC) [Ratio] 12.1 % 11.5 - 15.0 % [facility] Hematocrit (Bld) [Volume fraction] 39.4 % 39.0 - 51.0 % [facility] Hemoglobin (Bld) [Mass/Vol] 14.4 g/dL 13.0 - 17.0 g/dL [facility] Immature granulocytes (Bld) [#/Vol] <0.10 k/uL [facility] Immature granulocytes/100 WBC (Bld) 0.2 % [facility] Lymphocytes (Bld) [#/Vol] 1.50 10*3/uL 1.00 - 4.00 k/uL [facility] Lymphocytes/100 WBC (Bld) 23.0 % [facility] MCH (RBC) [Entitic mass] 33.3 pg 26.0 - 34.0 pg [facility] MCHC (RBC) [Mass/Vol] 36.5 g/dL High 30.5 - 36.0 g/dL [facility] MCV (RBC) [Entitic vol] 91.2 fL 80.0 - 100.0 fL [facility] Monocytes (Bld) [#/Vol] 0.53 10*3/uL <0.87 k/uL [facility] Monocytes/100 WBC (Bld) 8.1 % [facility] Neutrophils (Bld) [#/Vol] 4.35 10*3/uL 1.45 - 7.50 k/uL [facility] Neutrophils/100 WBC (Bld) 66.7 % [facility] Nucleated RBC (Bld) [#/Vol] <0.01 k/uL [facility] Nucleated RBC/100 WBC (Bld) [Ratio] 0.0 /100 WBC [facility] Platelet mean volume (Bld) [Entitic vol] 10.0 fL 9.0 - 12.7 fL [facility] Platelets (Bld) [#/Vol] 141 10*3/uL Low 150 - 400 k/uL [facility] RBC (Bld) [#/Vol] 4.32 10*6/uL 4.20 - 6.00 m/uL [facility] WBC (Bld) [#/Vol] 6.52 10*3/uL 3.70 - 11.00 k/uL [facility] HEP C AB IA W/CONF SCRNon HCV Ab Ql (S) Negative Negative [facility] XR FOOT GENERAL 3V AP/LAT/OB L RIGHTon 06-25-2022 [facility] XR Foot - right AP and Later al and obliqueon 06-25-2022 IMPRESSION: No radiographic evidence of acute osseous injury [employer] Wirer: [facility] Transcribe Date/Time: Jun 25 2022 6:19P Dictated by : OMID RENEE MD This examination was interpreted and the report reviewed and electronically signed by: OMID RENEE MD on Jun 25 2022 6:20PM EST DIVISION OF RADIOLOGY * * *Final Report* * * DATE OF EXAM: Jun 25 2022 6:17PM WOX 5337 - XR FOOT 3V AP/LAT/OBL RT / PROCEDURE REASON: Foot pain, right * * * * Physician Interpretation * * * * TITLE: XR FOOT 3V AP/LAT/OBL RT CLINICAL INDICATION: Pain TECHNIQUE: 3 view radiographic study of the right foot COMPARISON: None FINDINGS: No acute fracture or dislocation identified. Dorsal calcaneal enthesophyte. Joint spaces preserved. DIVISION OF RADIOLOGY Provider, [facility] - 06/25/2022 * * *Final Report* * * DATE OF EXAM: Jun 25 2022 6:17PM WOX 5337 - XR FOOT 3V AP/LAT/OBL RT / PROCEDURE REASON: Foot pain, right * * * * Physician Interpretation * * * * TITLE: XR FOOT 3V AP/LAT/OBL RT CLINICAL INDICATION: Pain TECHNIQUE: 3 view radiographic study of the right foot COMPARISON: None FINDINGS: No acute fracture or dislocation identified. Dorsal calcaneal enthesophyte. Joint spaces preserved. IMPRESSION IMPRESSION: No radiographic evidence of acute osseous injury [employer] Transcribe Date/Time: Jun 25 2022 6:19P Dictated by : OMID RENEE MD This examination was interpreted and the report reviewed and electronically signed by: OMID RENEE MD on Jun 25 2022 6:20PM EST [facility] Radiology Study observation (narrative) [facility] XR Foot - right AP and Later al and obliqueOrdered By: Ccf Provider on 06-25-2022 [facility] XR CHEST 2V FRONTAL/LATon [facility] XR Chest PA and Lateralon IMPRESSION: Within normal limits. No acute radiographic abnormality. [employer]: JOHN Transcribe Date/Time: Feb 19 2022 3:43P Dictated by : EITAN SCHWARTZ MD This examination was interpreted and the report reviewed and electronically signed by: EITAN SCHWARTZ MD on Feb 19 2022 3:44PM EST ZZZ_DO_NOT _USE_DIVIS ION OF RADIOLOGY * * *Final Report* * * DATE OF EXAM: Feb 19 2022 3:41PM WOX 5291 - XR CHEST 2V FRONTAL/LAT / PROCEDURE REASON: Acute cough * * * * Physician Interpretation * * * * EXAMINATION: CHEST RADIOGRAPH (2 VIEW FRONTAL & LATERAL), 02/19/2022 CLINICAL HISTORY: Acute cough MQ: XC2_6 EXAM DATE/TIME: 02/19/2022 3:41 PM COMPARISON: 10/28/2018 RESULT: Lines, tubes, and devices: None. Lungs and pleura: The lungs are clear. No pleural effusion. No pneumothorax. Cardiomediastinal silhouette: Normal cardiomediastinal silhouette. Bones and soft tissues: Mild degenerative changes in the lower thoracic spine. ZZZ_DO_NOT _USE_DIVIS ION OF RADIOLOGY Provider, [facility] - 02/19/2022 * * *Final Report* * * DATE OF EXAM: Feb 19 2022 3:41PM WOX 5291 - XR CHEST 2V FRONTAL/LAT / PROCEDURE REASON: Acute cough * * * * Physician Interpretation * * * * EXAMINATION: CHEST RADIOGRAPH (2 VIEW FRONTAL & LATERAL), 02/19/2022 CLINICAL HISTORY: Acute cough MQ: XC2_6 EXAM DATE/TIME: 02/19/2022 3:41 PM COMPARISON: 10/28/2018 RESULT: Lines, tubes, and devices: None. Lungs and pleura: The lungs are clear. No pleural effusion. No pneumothorax. Cardiomediastinal silhouette: Normal cardiomediastinal silhouette. Bones and soft tissues: Mild degenerative changes in the lower thoracic spine. IMPRESSION IMPRESSION: Within normal limits. No acute radiographic abnormality. [employer]: JOHN Transcribe Date/Time: Feb 19 2022 3:43P Dictated by : EITAN SCHWARTZ MD This examination was interpreted and the report reviewed and electronically signed by: EITAN SCHWARTZ MD on Feb 19 2022 3:44PM EST [facility] Radiology Study observation (narrative) [facility] XR Chest PA and LateralOrder ed By: Ccf Provider on 02-19-2022 [facility] Absolute lymphocyte counton 11-08-2021 Lymphocytes Auto (Unsp spec) [#/Vol] 2.13 10*3/uL 0.83-4.51 [facility] Work Phone: Basophil percentageon 2021 Basophil percentage 0 SEEN /hpf [facility] Work Phone: Basophils/100 WBC (Bld) 0.4 % 0-1 [facility] Work Phone: Chloride [Moles/Vol] 103 mmol/L 98-107 [facility] Work Phone: Eosinophils/100 WBC (Bld) 1.5 % 0-5 [facility] Work Phone: Glucose [Mass/Vol] 98 mg/dL 74-106 [facility] Work Phone: Neutrophils (Bld) [#/Vol] 5.2 10*3/uL 2.0-7.7 [facility] Work Phone: Neutrophils/100 WBC (Bld) 64.3 % 47-70 [facility] Work Phone: Potassium [Moles/Vol] 5.1 mmol/L 3.5-5.1 [facility] Work Phone: Comment on above: Slight Hemolysis, Re sult may be falsely increased. Sodium [Moles/Vol] 135 mmol/L 136-145 [facility] Work Phone: WBC (Bld) [#/Vol] 8.1 10*3/uL 4.4-11.0 [facility] Work Phone: Bilirubin Test strip Ql (U)o n 11-08-2021 Bilirubin Ql (U) Negative Negative [facility] Work Phone: Blood erythrocytes count (nu mber/volume)on 11-08-2021 RBC (Bld) [#/Vol] 4.39 10*6/uL 4.6-6.2 [facility] Work Phone: [phone] Blood hemoglobin measurement (mass/volume)on 11-08-2021 Hemoglobin (Bld) [Mass/Vol] 14.8 g/dL 13.0-16.5 [facility] Work Phone: Blood lymphocytes/100 leukoc yteson 11-08-2021 Lymphocytes/100 WBC (Bld) 26.5 % 19-41 [facility] Work Phone: Blood monocytes/100 leukocyt eson 11-08-2021 Monocytes/100 WBC (Bld) 7.2 % 0-10 [facility] Work Phone: [phone] Blood platelet mean volumeon 11-08-2021 Platelet mean volume (Bld) [Entitic vol] 9.4 fL 6.2-12.0 [facility] Work Phone: Determination of erythrocyte mean corpuscular volume (MCV)on 11-08-2021 MCV (RBC) [Entitic vol] 95.2 fL 80-94 [facility] Work Phone: [phone] Hematocrit Auto (Bld) [Volum e fraction]on 11-08-2021 Hematocrit (Bld) [Volume fraction] 41.8 % 40-54 [facility] Work Phone: [phone] Ketones Test strip Ql (U)on 11-08-2021 Ketones Ql (U) Negative Negative [facility] Work Phone: Laboratory - Chemistry and C hemistry - challengeon 11-08-2021 CO2 [Moles/Vol] 26.0 mmol/L 21.0-32.0 [facility] Work Phone: [phone] Urea nitrogen/Creatinine [Mass ratio] 9.0 mg/mg 10-20 [facility] Work Phone: [phone] Laboratory - Hematology and Cell countson 11-08-2021 Erythrocyte distribution width (RBC) [Entitic vol] 41.9 fL 35.1-43.9 [facility] Work Phone: Erythrocyte distribution width (RBC) [Ratio] 12.0 % 11.6-14.6 [facility] Work Phone: Immature granulocytes/100 WBC (Bld) 0.100 % 0.0-0.9 [facility] Work Phone: Comment on above: IG% - Immature Granu locytes (promyelocytes, myelocytes and metamyelocytes) > 1% indicates that a LEFT SHIFT is Present. MCH (RBC) [Entitic mass] 33.7 pg 27.0-32.0 [facility] Work Phone: Nucleated RBC/100 WBC (Bld) [Ratio] 0 % 0-5 [facility] Work Phone: MCHC Auto (RBC) [Mass/Vol]on 11-08-2021 MCHC (RBC) [Mass/Vol] 35.4 g/dL 32-36 [facility] Work Phone: Mucus LM Ql (Urine sed)on Mucus Ql (Urine sed) 0 SEEN /hpf [facility] Work Phone: Nitrite Test strip Ql (U)on 11-08-2021 Nitrite Ql (U) Negative Negative [facility] Work Phone: No Panel Informationon 11-08 Estimated Creatinine Clearance Calc 55.89 ml/min [facility] Work Phone: Estimated GFR (MDRD) Amer 60 mL/min >60 [facility] Work Phone: Comment on above: GFR Calc Estimated GFR (MDRD) Non-Af Amer 49 mL/min >60 [facility] Work Phone: Comment on above: Non- GFR Calc Platelets bldon 11-08-2021 Platelets (Bld) [#/Vol] 142 10*3/uL 150-450 [facility] Work Phone: Protein Test strip Ql (U)on 11-08-2021 Protein Ql (U) Negative Negative [facility] Work Phone: Serum or plasma calcium raina urement (mass/volume)on 11-08-2021 Calcium [Mass/Vol] 8.5 mg/dL 8.5-10.1 [facility] Work Phone: Serum or plasma creatinine m easurement (mass/volume)on 11-08-2021 Creatinine [Mass/Vol] 1.56 mg/dL 0.70-1.30 [facility] Work Phone: Comment on above: The validity of the calculated GFR & GFRAA in patients over 70 years has not been determined. Clinical correlation is essential. Serum or plasma urea nitroge n measurement (mass/volume)on 11-08-2021 Urea nitrogen [Mass/Vol] 14 mg/dL 7-18 [facility] Work Phone: Squamous epithelial cells de tection in urine sediment by light microscopyon 11-08-2021 Epithelial cells.squamous LM Ql (Urine sed) 0 SEEN /hpf [facility] Work Phone: Thin prep Papanicolaou smear with manual screeningon 11-08-2021 Thin prep Papanicolaou smear with manual screening 6 5-15 [facility] Work Phone: Urine blood detectionon 10-21 RBC Ql (U) Negative Negative [facility] Work Phone: RBC Ql (U) 0 SEEN /hpf [facility] Work Phone: Urine clarityon 11-08-2021 Clarity (U) Clear Clear [facility] Work Phone: Urine color determinationon 11-08-2021 Color (U) Yellow Yellow [facility] Work Phone: Urine glucose detectionon Glucose Ql (U) Normal mg/dl Normal [facility] Work Phone: Urine leukocyte esterase det ection by dipstickon 11-08-2021 Leukocyte esterase Test strip Ql (U) Negative Negative [facility] Work Phone: Urine pHon 11-08-2021 pH (U) 5.0 [pH] [facility] Work Phone: Urine sediment bacteria coun t by microscopy (number/high power field)on 11-08-2021 Bacteria LM.HPF (Urine sed) [#/Area] 0 /[HPF] None Seen [facility] Work Phone: Urine specific gravity measu rementon 11-08-2021 Specific gravity (U) [Rel density] 1.005 [facility] Work Phone: Urobilinogen Auto test strip Ql (U)on 11-08-2021 Urobilinogen Ql (U) Normal mg/dl Normal [facility] Work Phone: CNCOon 09-26-2017 Erythrocyte distribution width Auto Ratio (RBC) Letter TextBethany MontalvoDoctors Hospital [address] [address] [place], [place] [address]Cigml: [phone]# [id number] Rolando St[address] [facility] [address]Ojqk Mr. Montalvo:We have been unsuccessful in reaching you by phone. Please call our office [phone] for further instructions. We have been trying to reach youregarding testing results and medication changes. Thank you.Sincerely,Cardiology Staff [facility] HOSP 09-18-2017 [facility] Medical Advic e (AGCARDWST) ----BETHANY MONTALVO ([id number]) 1965 MDate Time Provider Department09/18/17 CANDELARIO ARELLANO During your visit today, we recorded the following information about you:Candelario Arellano MD 09/19/2017 9:05 AM SignedDoes he have heart rates?Lon Cancino, YONI, RN 09/19/2017 9:06 AM SignedSent via [employer].Tarun Cuello RN, RN 09/20/2017 11:05 AM SignedLeft generic msg for patient to return call. See result note 09-18 as well.Tarun Cuello RN, RN 09/25/2017 3:54 PM SignedPatient submitted heart rates, I have been unsuccessful getting him to call usregarding his result note.Candelario Arellano MD 09/25/2017 4:11 PM SignedBlood pressure and pulse are both high. Increase metoprolol to 100 milligramsin the morning and 50 in the evening. Call us with vital signs again in 2 weeks.Lon Cancino RN, RN 09/25/2017 4:18 PM SignedLeft generic msg for patient to return call.Tarun Cuello RN, RN 09/26/2017 10:10 AM SignedLeft generic msg for patient to return call. Mailed letter to patient for himto contact us.Allergies As of Date: 09/18/2017 Noted Allergy ReactionSUDAFED (PSEUDOEPHEDRINE) 06/26/2016 14 - Other: See Comments Comments: Prostate infectionDate Reviewed: 09/10/2017Reviewed by: India Bhatti - Fully [...] As Of Date 09/18/2017 Noted Resolved Moderate hypertension [I10] INVALID FOR* Anxiety and depression [F41.8] INVALID FOR* Seasonal allergies [J30.2] INVALID FOR* Renal insufficiency [N28.9] INVALID FOR* History of skull fracture [Z87.81] INVALID FOR* Hypertriglyceridemia [E78.1] INVALID FOR* Chronic alcohol abuse [F10.10] INVALID FOR* Unilateral inguinal hernia without obstruction *INVALID FOR* Status:Closed by TARUN CUELLO on 09/20/17 [facility] CNOVon 09-10-2017 CNOV Office Visit (AGCARDWST) ----BETHANY MONTALVO ([id number]) 1965 MDate Time Provider Department09/10/17 3:30 PM CANDELARIO ARELLANO AGCARDWST During your visit today, we recorded the following information about you: Pulse Blood pressure Weight Height 64/minute 140/110 105.4 kg 1.753 Felipa Arellano MD 09/10/2017 4:16 PM SignedPERTINENT CARDIAC HISTORYChest pain - atypicalSyncope - vasodepressorHTNHLADHERENCE TO GUIDELINESACE-I or ARB for HF with prior LVEFANDlt;40 (NQF 0081) - N/AASA or Plavix for ASHD (NQF 0067) - N/ABeta mandy for ASHD with prior NM or prior LVEFANDlt;40 (NQF 0070) - N/ABeta mandy for HF with prior LVEFANDlt;40 (NQF 0083) - N/AACE-I or ARB for ASHD with DM or prior LVEFANDlt;40 (NQF 0066) - N/AStatin therapy for ASHD or FHL or DM - metBMI documented and plan if ANDgt;25 (NQF 0421) - lifestyle recommendation formTobacco use screening and referral (NQF 0028) - lifestyle recommendation formRecommendation for whole food, plant based diet - lifestyle recommendation formCLINICAL IMPRESSION/PLAN:Bethany Montalvo has atypical chest discomfort. He's had no recent episodes.Stress test showed no evidence of ischemia.He's been encouraged to abstain from alcohol. I repeated the importance ofavoiding postural stress and keeping well hydrated.Blood pressures have been elevated recently, but he has been drinking more. Wewill check lipid profile, basic profile. I've asked him to check bloodpressures twice daily for the next week and call. We've can add a small dose ofLasix which will help with his volume and blood pressure.I will see him in 6 months or as needed.Written and verbal health teaching given to patient, patient verbalizesunderstanding and agrees with treatment plan.This note was generated using [employer] voice recognition system, and there may besome incorrect words, spellings, and punctuation that were not noted inchecking the note before saving.DIAGNOSIS FOR VISIT:Chest painHypertensionHISTORY OF PRESENT ILLNESSDaarmin Montalvo returns for posthospital follow-up visit. He was recentlyadmitted with chest discomfort and elevated blood pressure. He was seen inconsultation. He was given follow-up visit but did not keep it.He's had no recurrent chest discomfort. He denies orthopnea and edema. He hasbeen drinking more alcohol recently and his blood pressure has been moreelevated. He denies syncope or palpitations, TIAs, amaurosis and claudication.ALLERGIES:ALLERG IESAllergen Reactions- Sudafed [Pseudoephe* Other: See Comments Prostate infectionCURRENT OUTPATIENT MEDICATIONS:omeprazole (PRILOSEC) 20 mg capsule Take 1 capsule by mouth once daily. 1/2 hrbefore meal.aspirin, enteric coated (ASPIR-81) 81 mg EC tablet Take 1 tablet by mouth oncedaily.cyclobenzaprine (FLEXERIL) 10 mg tablet Take 1 [...] gram/dose powder Take 17 g by mouth oncedaily.PHYSICAL EXAMINATION:VITAL SIGNS: BP 140/110 Pulse 64 Ht 5' 9ANDquot; (1.75m) Wt 232 lb 6.4 oz(105.4kg) BMI 34.30 kg/(m2). Repeat blood pressure was 138/92Chest: Clear to percussion and auscultation. Trachea is midline. Air entry isequal. Cardiac: Regular rhythm. S1 and S2 are normal. PMI is nondisplaced.There is a soft S4 gallop. There is a soft systolic ejection murmur. Carotidsare brisk without bruits. JVP is less than 10 cm. Abdomen: Soft andnontender. Obesity precludes adequate examination. There are no pulsatilemasses or bruits. No liver enlargement. Bowel sounds are active.Extremities: Trace edema. Pulses are intact and symmetrical.[facility] were reviewed. Stress test showed no evidence ofischemia. Ejection fraction was normal.Echocardiogram showed normal ejection fraction. There was no evidence of acutecoronary syndrome.Electronically Signed:Candelario Arellano MDValleywise [facility]ale[facility] 2017 3:53 PMCC: Marjorie Cain MD 09/10/2017 3:55 PM SignedLIFESTYLE CHANGEA healthy lifestyle is the most important component of your overall treatmentplan. Please give serious thought to the following areas and commit to makinglong term changes.EAT A WHOLE FOOD, PLANT BASED DIETThe nutrition your body gets is more important than the medicine you take.What matters most is the overall way you eat. We encourage you to minimize theuse of animal products (which include dairy and all meats except fatty fish)and use whole, unprocessed plant foods to provide your protein, vitamins andother nutrients. We have a lot of information to share with you on this topic. We also hold Shared Medical Appointments, where you can come visit with in the company of other patients and spend over an hour talking aboutthe challenges of changing the way you eat. This is not a ANDquot;dietANDquot;.It is a way of life that you will keep with you.EXERCISE REGULARLYIt is not important to spend hours in the gym, lifting weights and perspiringheavily. A total of 2-3 hours per week of aerobic (causing you to bemoderately short of breath) exercise is sufficient to improve your health.Talk to us before you begin a new exercise program, if you have heart diseaseor experience shortness of breath or chest pain.REDUCE STRESSChronic emotional and physical stress leads to disease. Ways of reducingstress include meditation, visualization, prayer, yoga and other forms ofrelaxation therapy. Consistency is the short. Find a technique that works foryou and do it every day.CULTIVATE RELATIONSHIPSLoneliness and isolation have a major negative impact on health. Seek outothers who can love, care for and nurture you. Avoid hurtful relationships.MAINTAIN IDEAL BODY WEIGHTThe best way to do this is to do all the things above. Our bodies naturallyfind the right weight if we keep moving and feed ourselves the right food. Ifyour BMI is greater than 25, we strongly recommend a referral to a weightmanagement program. Please speak to us or your family physician aboutavailable programs.AVOID NICOTINE IN ALL FORMSThis includes all tobacco products, whether chewed, smoked, vaped, or rubbed onthe skin. Smoking cessation programs, which can make use of tobaccosubstitutes, medications to suppress cravings and behavior management, areavailable. Please contact your family physician about programs in your area.Referring Provider: CANDELARIO ARELLANO [[id number]]Allergies As of Date: 09/10/2017 Noted Allergy ReactionSUDAFED (PSEUDOEPHEDRINE) 06/26/2016 14 - Other: See Comments Comments: Prostate infectionDate Reviewed: 09/10/2017Reviewed by: India Bhatti - Fully AssessedReason for Visit: Follow Up [171]Primary Visit Diagnosis:Essential hypertension [I10] Other Visit Diagnoses:Chest pain, unspecified type [R07.9] Hypertension, essential [I10]Order(s):LIPID PANEL BASIC [SQLIPB] Order #: [id number] FUTURE ALT/SGPT [SQALT] Order #: [id number] FUTURE CK CREATINE KINASE [SQCK] Order #: [id number] FUTURE BASIC METABOLIC PNL [SQBMP] Order #: [id number] FUTUREPrescriptions as of 09/10/2017 Sig: OMEPRAZOLE 20 MG [...] As Of Date 09/10/2017 Noted Resolved Moderate hypertension [I10] INVALID FOR* Anxiety and depression [F41.8] INVALID FOR* Seasonal allergies [J30.2] INVALID FOR* Renal insufficiency [N28.9] INVALID FOR* History of skull fracture [Z87.81] INVALID FOR* Hypertriglyceridemia [E78.1] INVALID FOR* Chronic alcohol abuse [F10.10] INVALID FOR* Unilateral inguinal hernia without obstruction *INVALID FOR* Other instructions from your clinician: LIFESTYLE CHANGE A healthy lifestyle is the most important component of your overall treatment plan. Please give serious thought to the following areas and commit to making senior living changes. EAT A WHOLE FOOD, PLANT BASED DIET The nutrition your body gets is more important than [...] Appointments, where you can come visit with Dr. Arellano in the company of other patients and spend over an hour talking about the challenges of changing the way you eat. This is not a diet. It is a way of life that you will keep with you. EXERCISE REGULARLY It is not important to spend hours in the gym, lifting weights and perspiring heavily. A total of 2-3 hours per week of aerobic (causing you to be moderately short of breath) exercise is sufficient to improve your health. Talk to us before you begin a new exercise program, if you have heart disease or experience shortness of breath or chest pain. REDUCE STRESS Chronic emotional and physical stress leads to disease. Ways of reducing stress include meditation, visualization, prayer, yoga and other forms of relaxation therapy. Consistency is the short. Find a technique that works for you and do it every day. CULTIVATE RELATIONSHIPS Loneliness and isolation have a major negative impact on health. Seek out others who [...] Please speak to us or your family physician about available programs. AVOID NICOTINE IN ALL FORMS This includes all tobacco products, whether chewed, smoked, vaped, or rubbed on the skin. Smoking cessation programs, which can make use of tobacco substitutes, medications to suppress cravings and behavior management, are available. Please contact your family physician about programs in your area. Status:Closed by CANDELARIO ARELLANO MD on 09/10/17 [facility] PROGRESSon 09-10-2017 PROGRESS HNO ID: [id number] thor: Candelario Garcia: (none)Author Type: PhysicianType: Progress NotesFiled: 09/10/2017 4:16 PMNote Text:PERTINENT CARDIAC HISTORYChest pain - atypicalSyncope - vasodepressorHTNHLADHERENCE TO GUIDELINESACE-I or ARB for HF with prior LVEF<40 (NQF 0081) - N/AASA or Plavix for ASHD (NQF 0067) - N/ABeta mandy for ASHD with prior NM or prior LVEF<40 (NQF 0070) - N/ABeta mandy for HF with prior LVEF<40 (NQF 0083) - N/AACE-I or ARB for ASHD with DM or prior LVEF<40 (NQF 0066) - N/AStatin therapy for ASHD or FHL or DM - metBMI documented and plan if >25 (NQF 0421) - lifestyle recommendation formTobacco use screening and referral (NQF 0028) - lifestyle recommendationformRecommendat ion for whole food, plant based diet - [...] with treatment plan.This note was generated using HipLogiq voice recognition system, and theremay be some [...] He denies syncope or palpitations, TIAs, amaurosis andclaudication.ALLERGIES:ALL ERGIESAllergen Reactions- Sudafed [Pseudoephe* Other: See Comments Prostate [...] Trace edema. Pulses are intact andsymmetrical.[facility] from [facility] were reviewed. Stress test showed noevidence of ischemia. Ejection fraction was normal.Echocardiogram showed normal ejection fraction. There was no evidence ofacute coronary syndrome.Electronically Signed:Candelario Arellano MDFebruary 2017 3:53 PMCC: Redd Tejeda MD [facility] Vital Signs Date Time Vital Sign Value Performing Clinician Facility 02-09-2025 14:12-0400 Body mass index (BMI) [Ratio] 30.46 kg/m2 Gary VALLECILLO Work Phone: [facility] 02-09-2025 14:12040 Body temperature 98.6 [degF] Gary Sandersongg PA Work Phone: [facility] 02-09-2025 14:12040 Body weight 96.3 kg Gary Hutton PA Work Phone: [facility] 02-09-2025 14:12040 Diastolic blood pressure 78 mm[Hg] Gary Absjgg PA Work Phone: [facility] 02-09-2025 14:120400 Heart rate 77 /min Krislyn Aberegg PA Work Phone: [facility] 02-09-2025 14:12-0400 Respiratory rate 16 /min Krislyn Aberegg PA Work Phone: [facility] 02-09-2025 14:12-0400 SaO2% (BldA) [Mass fraction] 98 % Krislyn Aberegg PA Work Phone: [facility] 02-09-2025 14:12-0400 Systolic blood pressure 122 mm[Hg] Krislyn Aberegg PA Work Phone: [facility] 09-28-2024 15:34-0400 Body mass index (BMI) [Ratio] 29.13 kg/m2 Keren Kwon PLANT GENERAL MANAGER.DIGITAL SALES MANAGER Work Phone: [facility] 09-28-2024 15:34-0400 Body weight 92.08 kg Keren Kwon PLANT GENERAL MANAGER.DIGITAL SALES MANAGER Work Phone: [facility] 09-28-2024 15:34-0400 Diastolic blood pressure 80 mm[Hg] Keren Kwon PLANT GENERAL MANAGER.DIGITAL SALES MANAGER Work Phone: [facility] 09-28-2024 15:34-0400 Heart rate 113 /min Keren Kwon PLANT GENERAL MANAGER.DIGITAL SALES MANAGER Work Phone: [facility] 09-28-2024 15:34-0400 Respiratory rate 16 /min Keren Kwon PLANT GENERAL MANAGER.DIGITAL SALES MANAGER Work Phone: [facility] 09-28-2024 15:34-0400 SaO2% (BldA) [Mass fraction] 96 % Keren Kwon PLANT GENERAL MANAGER.DIGITAL SALES MANAGER Work Phone: [facility] 09-28-2024 15:34-0400 Systolic blood pressure 122 mm[Hg] Keren Haagen PLANT GENERAL MANAGER.DIGITAL SALES MANAGER Work Phone: [facility] 09-28-2024 12:32-0400 Body height 177.8 cm Chris Devlin PLANT GENERAL MANAGER.DIGITAL SALES MANAGER, DNP Work Phone: [facility] 09-28-2024 12:32-0400 Body mass index (BMI) [Ratio] 28.84 kg/m2 Chris Devlin APRN.DIGITAL SALES MANAGER, DNP Work Phone: [facility] 09-28-2024 12:32-0400 Body temperature 96.91 [degF] Chris Devlin APRN.DIGITAL SALES MANAGER, DNP Work Phone: [facility] 09-28-2024 12:32-0400 Body weight 91.17 kg Chris Devlin APRN.DIGITAL SALES MANAGER, DNP Work Phone: [facility] 09-28-2024 12:32-0400 Diastolic blood pressure 80 mm[Hg] Chris Devlin APRN.DIGITAL SALES MANAGER, DNP Work Phone: [facility] 09-28-2024 12:32-0400 Heart rate 80 /min Chris Devlin APRN.DIGITAL SALES MANAGER, DNP Work Phone: [facility] 09-28-2024 12:32-0400 Respiratory rate 18 /min Chris Devlin APRN.DIGITAL SALES MANAGER, DNP Work Phone: [facility] 09-28-2024 12:32-0400 SaO2% (BldA) [Mass fraction] 94 % Chris Devlin APRN.DIGITAL SALES MANAGER, DNP Work Phone: [facility] 09-28-2024 12:32-0400 Systolic blood pressure 118 mm[Hg] Chris Devlin APRN.DIGITAL SALES MANAGER, DNP Work Phone: [facility] 08-31-2024 15:33-0500 Diastolic blood pressure 97 mm[Hg] Keren Kwon APRN.DIGITAL SALES MANAGER Work Phone: [facility] 08-31-2024 15:33-0500 Heart rate 114 /min Keren Menchacaagen PLANT GENERAL MANAGER.DIGITAL SALES MANAGER Work Phone: [facility] 08-31-2024 15:33-0500 Systolic blood pressure 153 mm[Hg] Keren Haagen PLANT GENERAL MANAGER.DIGITAL SALES MANAGER Work Phone: [facility] 08-31-2024 15:25-0500 Respiratory rate 16 /min Keren Kwon APRN.DIGITAL SALES MANAGER Work Phone: [facility] 08-31-2024 15:25-0500 SaO2% (BldA) [Mass fraction] 98 % Keren Haagen PLANT GENERAL MANAGER.DIGITAL SALES MANAGER Work Phone: [facility] 08-24-2024 12:07-0500 Diastolic blood pressure 117 mm[Hg] Keren Haagen PLANT GENERAL MANAGER.DIGITAL SALES MANAGER Work Phone: [facility] Comment on above: CHARLENE BP 08-24-2024 12:07-0500 Heart rate 132 /min Keren Haagen PLANT GENERAL MANAGER.DIGITAL SALES MANAGER Work Phone: [facility] 08-24-2024 12:07-0500 Systolic blood pressure 179 mm[Hg] Keren Haagen PLANT GENERAL MANAGER.DIGITAL SALES MANAGER Work Phone: [facility] Comment on above: CHARLENE BP 08-24-2024 11:27-0500 Respiratory rate 16 /min Keren Haagen PLANT GENERAL MANAGER.DIGITAL SALES MANAGER Work Phone: [facility] 08-24-2024 11:27-0500 SaO2% (BldA) [Mass fraction] 97 % Keren Haagen PLANT GENERAL MANAGER.DIGITAL SALES MANAGER Work Phone: [facility] 08-11-2024 14:03-0500 Body temperature 99.9 [degF] Keren Haagen PLANT GENERAL MANAGER.DIGITAL SALES MANAGER Work Phone: [facility] 08-11-2024 13:43-0500 Diastolic blood pressure 86 mm[Hg] Keren Haagen PLANT GENERAL MANAGER.DIGITAL SALES MANAGER Work Phone: [facility] 08-11-2024 13:43-0500 Systolic blood pressure 162 mm[Hg] Keren Haagen PLANT GENERAL MANAGER.DIGITAL SALES MANAGER Work Phone: [facility] 08-11-2024 13:03-0500 Heart rate 120 /min Keren Haagen PLANT GENERAL MANAGER.DIGITAL SALES MANAGER Work Phone: [facility] 08-11-2024 13:03-0500 Respiratory rate 16 /min Keren Haagen PLANT GENERAL MANAGER.DIGITAL SALES MANAGER Work Phone: [facility] 08-11-2024 13:03-0500 SaO2% (BldA) [Mass fraction] 98 % Keren Haagen PLANT GENERAL MANAGER.DIGITAL SALES MANAGER Work Phone: [facility] 07-13-2024 13:38-0500 Body mass index (BMI) [Ratio] 29 kg/m2 Rosa Moomaw PLANT GENERAL MANAGER.DIGITAL SALES MANAGER Work Phone: [facility] 07-13-2024 13:38-0500 Body temperature 98.8 [degF] Rosa Moomaw PLANT GENERAL MANAGER.DIGITAL SALES MANAGER Work Phone: [facility] 07-13-2024 13:38-0500 Body weight 94.3 kg Rosa Moomaw PLANT GENERAL MANAGER.DIGITAL SALES MANAGER Work Phone: [facility] 07-13-2024 13:38-0500 Diastolic blood pressure 86 mm[Hg] Rosa Moomaw PLANT GENERAL MANAGER.DIGITAL SALES MANAGER Work Phone: [facility] 07-13-2024 13:38-0500 Heart rate 111 /min Rosa Moomaw PLANT GENERAL MANAGER.DIGITAL SALES MANAGER Work Phone: [facility] 07-13-2024 13:38-0500 Respiratory rate 18 /min Rosa Moomaw PLANT GENERAL MANAGER.DIGITAL SALES MANAGER Work Phone: [facility] 07-13-2024 13:38-0500 SaO2% (BldA) [Mass fraction] 97 % Rosa Moomaw PLANT GENERAL MANAGER.DIGITAL SALES MANAGER Work Phone: [facility] 07-13-2024 13:38-0500 Systolic blood pressure 150 mm[Hg] Rosa Moomaw PLANT GENERAL MANAGER.DIGITAL SALES MANAGER Work Phone: [facility] 07-09-2024 16:56-0500 Body mass index (BMI) [Ratio] 29.89 kg/m2 [facility] PL[employer] GENERAL MANAGER.DIGITAL SALES MANAGER Work Phone: [facility] 07-09-2024 16:56-0500 Body temperature 98.4 [degF] [facility] PLANT GENERAL MANAGER.DIGITAL SALES MANAGER Work Phone: [facility] 07-09-2024 16:56-0500 Body weight 97.2 kg [facility] PLANT GENERAL MANAGER.DIGITAL SALES MANAGER Work Phone: [facility] 07-09-2024 16:56-0500 Diastolic blood pressure 78 mm[Hg] Desmond Pendlebury PLANT GENERAL MANAGER.DIGITAL SALES MANAGER Work Phone: [facility] 07-09-2024 16:56-0500 Heart rate 98 /min Desmond Zhoujayne PLANT GENERAL MANAGER.DIGITAL SALES MANAGER Work Phone: [facility] 07-09-2024 16:56-0500 Respiratory rate 18 /min Desmond Neidaricardojayne PLANT GENERAL MANAGER.DIGITAL SALES MANAGER Work Phone: [facility] 07-09-2024 16:56-0500 SaO2% (BldA) [Mass fraction] 97 % Desmond Neidaricardojayne PLANT GENERAL MANAGER.DIGITAL SALES MANAGER Work Phone: [facility] 07-09-2024 16:56-0500 Systolic blood pressure 128 mm[Hg] Desmond Carrasquillolejayne PLANT GENERAL MANAGER.DIGITAL SALES MANAGER Work Phone: [facility] 06-22-2024 16:06-0500 Body height 180.3 cm Alma Delia Larry PLANT GENERAL MANAGER.DIGITAL SALES MANAGER Work Phone: [facility] 06-22-2024 16:06-0500 Body mass index (BMI) [Ratio] 30.2 kg/m2 Alma Delia Larry PLANT GENERAL MANAGER.DIGITAL SALES MANAGER Work Phone: [facility] 06-22-2024 16:06-0500 Body temperature 98.91 [degF] Alma Delia Larry PLANT GENERAL MANAGER.DIGITAL SALES MANAGER Work Phone: [facility] 06-22-2024 16:06-0500 Body weight 98.2 kg Alma Delia Larry PLANT GENERAL MANAGER.DIGITAL SALES MANAGER Work Phone: [facility] 06-22-2024 16:06-0500 Diastolic blood pressure 92 mm[Hg] Alma Delia Larry PLANT GENERAL MANAGER.DIGITAL SALES MANAGER Work Phone: [facility] 06-22-2024 16:06-0500 Heart rate 107 /min Alma Delia Larry PLANT GENERAL MANAGER.DIGITAL SALES MANAGER Work Phone: [facility] 06-22-2024 16:06-0500 SaO2% (BldA) [Mass fraction] 94 % Alma Delia Larry PLANT GENERAL MANAGER.DIGITAL SALES MANAGER Work Phone: [facility] 06-22-2024 16:06-0500 Systolic blood pressure 142 mm[Hg] Alma Delia Blair PLANT GENERAL MANAGER.DIGITAL SALES MANAGER Work Phone: [facility] 06-12-2024 14:44-0500 Body mass index (BMI) [Ratio] 30.98 kg/m2 Keren Kwon PLANT GENERAL MANAGER.DIGITAL SALES MANAGER Work Phone: [facility] 06-12-2024 14:44-0500 Body weight 97.07 kg Keren Kwon PLANT GENERAL MANAGER.DIGITAL SALES MANAGER Work Phone: [facility] 06-12-2024 14:44-0500 Diastolic blood pressure 92 mm[Hg] Keren Kwon PLANT GENERAL MANAGER.DIGITAL SALES MANAGER Work Phone: [facility] 06-12-2024 14:44-0500 Heart rate 82 /min Keren Kwon PLANT GENERAL MANAGER.DIGITAL SALES MANAGER Work Phone: [facility] 06-12-2024 14:44-0500 Respiratory rate 16 /min Keren Kwon PLANT GENERAL MANAGER.DIGITAL SALES MANAGER Work Phone: [facility] 06-12-2024 14:44-0500 SaO2% (BldA) [Mass fraction] 96 % Keren Kwon PLANT GENERAL MANAGER.DIGITAL SALES MANAGER Work Phone: [facility] 06-12-2024 14:44-0500 Systolic blood pressure 130 mm[Hg] Keren Kwon PLANT GENERAL MANAGER.DIGITAL SALES MANAGER Work Phone: [facility] 10-14-2023 13:19-0400 Body height 177.8 cm CHIEF CONTROLLER-C Keren Kwon CHIEF CONTROLLER Work Phone: [facility] 10-14-2023 13:19-0400 Body mass index (BMI) [Ratio] 27.9 kg/m2 CHIEF CONTROLLER-C Keren Kwon CHIEF CONTROLLER Work Phone: [facility] 10-14-2023 13:19-0400 Body weight 88.45 kg CHIEF CONTROLLER-C Keren Kwon CHIEF CONTROLLER Work Phone: [facility] 10-14-2023 13:19-0400 Diastolic blood pressure 91 mm[Hg] CHIEF CONTROLLER-C Keren Kwon CHIEF CONTROLLER Work Phone: [facility] 10-14-2023 13:19-0400 Heart rate 90 /min CHIEF CONTROLLER-C Keren Kwon CHIEF CONTROLLER Work Phone: [facility] 10-14-2023 13:19-0400 Respiratory rate 18 /min CHIEF CONTROLLER-C Keren Nikolaianne CHIEF CONTROLLER Work Phone: [facility] 10-14-2023 13:19-0400 Systolic blood pressure 132 mm[Hg] CHIEF CONTROLLER-C Keren Kwon CHIEF CONTROLLER Work Phone: [facility] 05-16-2023 11:50-0400 Body temperature 98.3 [degF] CHIEF CONTROLLER-C Vani Owen CHIEF CONTROLLER Work Phone: [facility] 05-16-2023 11:50-0400 Diastolic blood pressure 104 mm[Hg] CHIEF CONTROLLER-C Vani Owen CHIEF CONTROLLER Work Phone: [facility] 05-16-2023 11:50-0400 Heart rate 88 /min CHIEF CONTROLLER-C Vani Owen CHIEF CONTROLLER Work Phone: [facility] 05-16-2023 11:50-0400 Respiratory rate 18 /min CHIEF CONTROLLER-C Vani Owen CHIEF CONTROLLER Work Phone: [facility] 05-16-2023 11:50-0400 SaO2% (BldA) [Mass fraction] 99 % CHIEF CONTROLLER-Ang Owen CHIEF CONTROLLER Work Phone: [facility] 05-16-2023 11:50-0400 Systolic blood pressure 142 mm[Hg] CHIEF CONTROLLER-C Vani Owen CHIEF CONTROLLER Work Phone: [facility] 05-14-2023 16:04-0400 Body height 177.8 cm CHIEF CONTROLLER-Ang Owen CHIEF CONTROLLER Work Phone: [facility] 05-14-2023 16:04-0400 Body weight 87.8 kg CHIEF CONTROLLER-Ang Owen CHIEF CONTROLLER Work Phone: [facility] 05-13-2023 17:41-0400 Body mass index (BMI) [Ratio] 27.8 kg/m2 CHIEF CONTROLLER-C Vani Owen CHIEF CONTROLLER Work Phone: [facility] 05-13-2023 16:27-0400 Body temperature 98.7 [degF] CHIEF CONTROLLER-C Vani Owen CHIEF CONTROLLER Work Phone: [facility] 05-13-2023 16:27-0400 Diastolic blood pressure 94 mm[Hg] CHIEF CONTROLLER-C Vani Owen CHIEF CONTROLLER Work Phone: [facility] 05-13-2023 16:27-0400 Heart rate 105 /min CHIEF CONTROLLER-C Vani Owen CHIEF CONTROLLER Work Phone: [facility] 05-13-2023 16:27-0400 Respiratory rate 18 /min CHIEF CONTROLLER-C Vani Owen CHIEF CONTROLLER Work Phone: [facility] 05-13-2023 16:27-0400 SaO2% (BldA) [Mass fraction] 95 % CHIEF CONTROLLER-C Vani Owen CHIEF CONTROLLER Work Phone: [facility] 05-13-2023 16:27-0400 Systolic blood pressure 144 mm[Hg] CHIEF CONTROLLER-C Vani Owen CHIEF CONTROLLER Work Phone: [facility] 05-13-2023 10:52-0400 Body height 177.8 cm CHIEF CONTROLLER-C Vani Owen CHIEF CONTROLLER Work Phone: [facility] 05-13-2023 10:52-0400 Body mass index (BMI) [Ratio] 28.3 kg/m2 CHIEF CONTROLLER-C Vani Owen CHIEF CONTROLLER Work Phone: [facility] 05-13-2023 10:52-0400 Body weight 89.49 kg CHIEF CONTROLLER-C Vani Owen CHIEF CONTROLLER Work Phone: [facility] 04-08-2023 09:32-0400 Body temperature 98.49 [degF] Henry Morrow MD Work Phone: [facility] 04-08-2023 09:32-0400 Body weight 94.26 kg Henry Morrow MD Work Phone: [facility] 04-08-2023 09:32-0400 Diastolic blood pressure 119 mm[Hg] Henry Morrow MD Work Phone: [facility] 04-08-2023 09:32-0400 Heart rate 89 /min Henry Morrow MD Work Phone: [facility] 04-08-2023 09:32-0400 Respiratory rate 20 /min Henry Morrow MD Work Phone: [facility] 04-08-2023 09:32-0400 SaO2% (BldA) [Mass fraction] 98 % Henry Morrow MD Work Phone: [facility] 04-08-2023 09:32-0400 Systolic blood pressure 198 mm[Hg] Henry Morrow MD Work Phone: [facility] 04-01-2023 14:06-0400 Body height 177.[address] Pema Yang Work Phone: [facility] 04-01-2023 14:06-0400 Body mass index (BMI) [Ratio] 29.8 kg/m2 Dr. Pema Yang Work Phone: [facility] 04-01-2023 14:06-0400 Body weight 94.[address] Pema Yang Work Phone: [facility] 04-01-2023 14:06-0400 Diastolic blood pressure 103 mm[Hg] Dr. Pema Yang Work Phone: [facility] 04-01-2023 14:06-0400 Heart rate 91 /min Dr. Pema Yang Work Phone: [facility] 04-01-2023 14:06-0400 Respiratory rate 20 /min Dr. Pema Yang Work Phone: [facility] 04-01-2023 14:06-0400 Systolic blood pressure 181 mm[Hg] Dr. Pema Yang Work Phone: [facility] 01-21-2023 15:27-0400 Diastolic blood pressure 103 mm[Hg] Keren Kwon APRN.CNP Work Phone: [facility] 01-21-2023 15:27-0400 Heart rate 91 /min Keren Kwon PLANT GENERAL MANAGER.DIGITAL SALES MANAGER Work Phone: [facility] 01-21-2023 15:27-0400 Systolic blood pressure 159 mm[Hg] Keren Kwon PLANT GENERAL MANAGER.DIGITAL SALES MANAGER Work Phone: [facility] 01-21-2023 14:22-0400 Body weight 92.53 kg Keren Kwon PLANT GENERAL MANAGER.DIGITAL SALES MANAGER Work Phone: [facility] 01-21-2023 14:22-0400 Respiratory rate 16 /min Keren Kwon PLANT GENERAL MANAGER.DIGITAL SALES MANAGER Work Phone: [facility] 01-21-2023 14:22-0400 SaO2% (BldA) [Mass fraction] 97 % Keren Kwon PLANT GENERAL MANAGER.DIGITAL SALES MANAGER Work Phone: [facility] 01-09-2023 06:35-0400 Body height 177.[address] Pema Yang Work Phone: [facility] 01-09-2023 06:35-0400 Body mass index (BMI) [Ratio] 28.4 kg/m2 Dr. Pema Yang Work Phone: [facility] 01-09-2023 06:35-0400 Body temperature 97.2 [degF] Dr. Pema Yang Work Phone: [facility] 01-09-2023 06:35-0400 Body weight 89.[address] Pema Yang Work Phone: [facility] 01-09-2023 06:35-0400 Diastolic blood pressure 107 mm[Hg] Dr. Pema Yang Work Phone: [facility] 01-09-2023 06:35-0400 Heart rate 91 /min Dr. Pema Yang Work Phone: [facility] 01-09-2023 06:35-0400 Respiratory rate 18 /min Dr. Pema Yang Work Phone: [facility] 01-09-2023 06:35-0400 SaO2% (BldA) [Mass fraction] 97 % Dr. Pema Yang Work Phone: [facility] 01-09-2023 06:35-0400 Systolic blood pressure 173 mm[Hg] Dr. Pema Yang Work Phone: [facility] 01-02-2023 11:14-0400 Diastolic blood pressure 86 mm[Hg] Dr. Pema Yang Work Phone: [facility] 01-02-2023 11:14-0400 Heart rate 82 /min Dr. Pema Yang Work Phone: [facility] 01-02-2023 11:14-0400 Respiratory rate 16 /min Dr. Pema Yang Work Phone: [facility] 01-02-2023 11:14-0400 SaO2% (BldA) [Mass fraction] 97 % Dr. Pema Yang Work Phone: [facility] 01-02-2023 11:14-0400 Systolic blood pressure 131 mm[Hg] Dr. Pema Yang Work Phone: [facility] 01-02-2023 08:48-0400 Body mass index (BMI) [Ratio] 28.4 kg/m2 Dr. Pema Yang Work Phone: [facility] 01-02-2023 08:48-0400 Body temperature 96.8 [degF] Dr. Pema Yang Work Phone: [facility] 01-02-2023 08:48-0400 Body weight 89.[address] Pema Yang Work Phone: [facility] 12-24-2022 09:20-0400 Body mass index (BMI) [Ratio] 27.9 kg/m2 Dr. Pema Yang Work Phone: [facility] 12-24-2022 09:20-0400 Body weight 88.[address] Pema Yang Work Phone: [facility] 12-24-2022 09:20-0400 Diastolic blood pressure 100 mm[Hg] Dr. Pema Yang Work Phone: [facility] 12-24-2022 09:20-0400 Heart rate 96 /min Dr. Pema Yang Work Phone: [facility] 12-24-2022 09:20-0400 Respiratory rate 18 /min Dr. Pema Yang Work Phone: [facility] 12-24-2022 09:20-0400 SaO2% (BldA) [Mass fraction] 98 % Dr. Pema Yang Work Phone: [facility] 12-24-2022 09:20-0400 Systolic blood pressure 146 mm[Hg] Dr. Pema Yang Work Phone: [facility] 11-05-2022 13:39-0400 Body weight 93.44 kg Keren Haagen PLANT GENERAL MANAGER.DIGITAL SALES MANAGER Work Phone: [facility] 11-05-2022 13:39-0400 Diastolic blood pressure 102 mm[Hg] Keren Haagen PLANT GENERAL MANAGER.DIGITAL SALES MANAGER Work Phone: [facility] 11-05-2022 13:39-0400 Heart rate 76 /min Keren Haagen PLANT GENERAL MANAGER.DIGITAL SALES MANAGER Work Phone: [facility] 11-05-2022 13:39-0400 Respiratory rate 18 /min Keren Haagen PLANT GENERAL MANAGER.DIGITAL SALES MANAGER Work Phone: [facility] 11-05-2022 13:39-0400 SaO2% (BldA) [Mass fraction] 97 % Keren Haagen PLANT GENERAL MANAGER.DIGITAL SALES MANAGER Work Phone: [facility] 11-05-2022 13:39-0400 Systolic blood pressure 158 mm[Hg] Keren Haagen PLANT GENERAL MANAGER.DIGITAL SALES MANAGER Work Phone: [facility] 06-25-2022 17:52-0500 Body temperature 98.49 [degF] Ziggy Itz PLANT GENERAL MANAGER.DIGITAL SALES MANAGER Work Phone: [facility] 06-25-2022 17:52-0500 Body weight 98.88 kg Ziggy Itz PLANT GENERAL MANAGER.DIGITAL SALES MANAGER Work Phone: [facility] 06-25-2022 17:52-0500 Diastolic blood pressure 72 mm[Hg] Ziggy Itz PLANT GENERAL MANAGER.DIGITAL SALES MANAGER Work Phone: [facility] 06-25-2022 17:52-0500 Heart rate 122 /min Ziggy Itz PLANT GENERAL MANAGER.DIGITAL SALES MANAGER Work Phone: [facility] 06-25-2022 17:52-0500 Respiratory rate 20 /min Ziggy Itz PLANT GENERAL MANAGER.DIGITAL SALES MANAGER Work Phone: [facility] 06-25-2022 17:52-0500 SaO2% (BldA) [Mass fraction] 98 % Ziggy Itz PLANT GENERAL MANAGER.DIGITAL SALES MANAGER Work Phone: [facility] 06-25-2022 17:52-0500 Systolic blood pressure 122 mm[Hg] Ziggy Itz PLANT GENERAL MANAGER.DIGITAL SALES MANAGER Work Phone: [facility] 06-05-2022 13:38-0500 Body temperature 98.01 [degF] Rebecca Jaycob PLANT GENERAL MANAGER.DIGITAL SALES MANAGER Work Phone: [facility] 06-05-2022 13:38-0500 Body weight 97.98 kg Rebecca Jaycob PLANT GENERAL MANAGER.DIGITAL SALES MANAGER Work Phone: [facility] 06-05-2022 13:38-0500 Diastolic blood pressure 82 mm[Hg] Rebecca Jaycob PLANT GENERAL MANAGER.DIGITAL SALES MANAGER Work Phone: [facility] 06-05-2022 13:38-0500 Heart rate 92 /min Rebecca Jaycob PLANT GENERAL MANAGER.DIGITAL SALES MANAGER Work Phone: [facility] 06-05-2022 13:38-0500 Respiratory rate 16 /min Rebecca Jaycob PLANT GENERAL MANAGER.DIGITAL SALES MANAGER Work Phone: [facility] 06-05-2022 13:38-0500 SaO2% (BldA) [Mass fraction] 98 % Rebecca Devries PLANT GENERAL MANAGER.DIGITAL SALES MANAGER Work Phone: [facility] 06-05-2022 13:38-0500 Systolic blood pressure 132 mm[Hg] Rebecca Jaycob PLANT GENERAL MANAGER.DIGITAL SALES MANAGER Work Phone: [facility] 02-23-2022 09:18-0400 Body weight 92.99 kg Kreen Haagen PLANT GENERAL MANAGER.DIGITAL SALES MANAGER Work Phone: [facility] 02-23-2022 09:18-0400 Diastolic blood pressure 100 mm[Hg] Keren Haagen PLANT GENERAL MANAGER.DIGITAL SALES MANAGER Work Phone: [facility] 02-23-2022 09:18-0400 Heart rate 114 /min Keren Haagen PLANT GENERAL MANAGER.DIGITAL SALES MANAGER Work Phone: [facility] 02-23-2022 09:18-0400 SaO2% (BldA) [Mass fraction] 98 % Keren Kwon PLANT GENERAL MANAGER.DIGITAL SALES MANAGER Work Phone: [facility] 02-23-2022 09:18-0400 Systolic blood pressure 150 mm[Hg] Keren Haagen PLANT GENERAL MANAGER.DIGITAL SALES MANAGER Work Phone: [facility] 02-19-2022 15:00-0400 Body temperature 98.2 [degF] Ziggy Mobley PLANT GENERAL MANAGER.DIGITAL SALES MANAGER Work Phone: [facility] 02-19-2022 15:00-0400 Body weight 92.44 kg Ziggy Mobley PLANT GENERAL MANAGER.DIGITAL SALES MANAGER Work Phone: [facility] 02-19-2022 15:00-0400 Diastolic blood pressure 110 mm[Hg] Ziggy Itz PLANT GENERAL MANAGER.DIGITAL SALES MANAGER Work Phone: [facility] 02-19-2022 15:00-0400 Heart rate 93 /min Ziggy Itz PLANT GENERAL MANAGER.DIGITAL SALES MANAGER Work Phone: [facility] 02-19-2022 15:00-0400 Respiratory rate 21 /min Ziggy Mobley PLANT GENERAL MANAGER.DIGITAL SALES MANAGER Work Phone: [facility] 02-19-2022 15:00-0400 SaO2% (BldA) [Mass fraction] 100 % Ziggy Mobley PLANT GENERAL MANAGER.DIGITAL SALES MANAGER Work Phone: [facility] 02-19-2022 15:00-0400 Systolic blood pressure 150 mm[Hg] Ziggy Mobley PLANT GENERAL MANAGER.DIGITAL SALES MANAGER Work Phone: [facility] 11-15-2021 13:43-0400 Diastolic blood pressure 92 mm[Hg] Keren Haagen PLANT GENERAL MANAGER.DIGITAL SALES MANAGER Work Phone: [facility] 11-15-2021 13:43-0400 Heart rate 97 /min Keren Haagen PLANT GENERAL MANAGER.DIGITAL SALES MANAGER Work Phone: [facility] 11-15-2021 13:43-0400 Respiratory rate 18 /min Keren Haagen PLANT GENERAL MANAGER.DIGITAL SALES MANAGER Work Phone: [facility] 11-15-2021 13:43-0400 SaO2% (BldA) [Mass fraction] 97 % Keren Menchacaagen PLANT GENERAL MANAGER.DIGITAL SALES MANAGER Work Phone: [facility] 11-15-2021 13:43-0400 Systolic blood pressure 118 mm[Hg] Keren Haagen PLANT GENERAL MANAGER.DIGITAL SALES MANAGER Work Phone: [facility] 11-08-2021 17:43-0400 Body height 177.8 cm [facility] Work Phone: 11-08-2021 17:43-0400 Body mass index (BMI) [Ratio] 33 kg/m2 [facility] Work Phone: 11-08-2021 17:43-0400 Body temperature 97.4 [degF] [facility] Work Phone: 11-08-2021 17:43-0400 Body weight 104.32 kg [facility] Work Phone: 11-08-2021 17:43-0400 Diastolic blood pressure 80 mm[Hg] [facility] Work Phone: 11-08-2021 17:43-0400 Heart rate 103 /min [facility] Work Phone: 11-08-2021 17:43-0400 Respiratory rate 18 /min [facility] Work Phone: 11-08-2021 17:43-0400 SaO2% (BldA) [Mass fraction] 97 % [facility] Work Phone: 11-08-2021 17:43-0400 Systolic blood pressure 129 mm[Hg] [facility] Work Phone: 11-01-2021 15:31-0400 Body height 177 cm Keren Haagen PLANT GENERAL MANAGER.DIGITAL SALES MANAGER Work Phone: [facility] 11-01-2021 15:31-0400 Body weight 96.62 kg Keren Haagen PLANT GENERAL MANAGER.DIGITAL SALES MANAGER Work Phone: [facility] 11-01-2021 15:31-0400 Diastolic blood pressure 96 mm[Hg] Keren Haagen PLANT GENERAL MANAGER.DIGITAL SALES MANAGER Work Phone: [facility] 11-01-2021 15:31-0400 Heart rate 103 /min Keren Haagen PLANT GENERAL MANAGER.DIGITAL SALES MANAGER Work Phone: [facility] 11-01-2021 15:31-0400 Respiratory rate 18 /min Keren Haagen PLANT GENERAL MANAGER.DIGITAL SALES MANAGER Work Phone: [facility] 11-01-2021 15:31-0400 SaO2% (BldA) [Mass fraction] 96 % Keren Haagen PLANT GENERAL MANAGER.DIGITAL SALES MANAGER Work Phone: [facility] 11-01-2021 15:31-0400 Systolic blood pressure 118 mm[Hg] Keren Haagen PLANT GENERAL MANAGER.DIGITAL SALES MANAGER Work Phone: [facility] Encounters Encounter Date Encounter Type Care Provider Facility Start: 03-29-2025 ambulatory Julius Lovell Facility :[facility] Start: 02-09-2025 End: 02-09-2025 Patient encounter procedure Gary VALLECILLO Work Phone: [facility] [place] Comment on above: Lower abdominal pain (Primary Dx); Diarrhea, unspecified type Start: 02-09-2025 End: 02-09-2025 ambulatory GARY HUTTON Facility:[facility] Start: 02-01-2025 End: 02-01-2025 Refill Keren Haagen PLANT GENERAL MANAGER.DIGITAL SALES MANAGER Work Phone: [facility] Comment on above: Refill Request Start: 01-19-2025 End: 01-19-2025 Refill Keren Haagen PLANT GENERAL MANAGER.DIGITAL SALES MANAGER Work Phone: [facility] Comment on above: Refill Request Start: 12-22-2024 End: 12-22-2024 Refill Keren Haagen PLANT GENERAL MANAGER.DIGITAL SALES MANAGER Work Phone: [facility] Comment on above: Refill Request Start: 12-11-2024 End: 12-11-2024 ambulatory [facility] Facility:[facility] Start: 11-30-2024 ambulatory Julius Lovell Facility :[facility] Start: 11-24-2024 End: 11-24-2024 Refill Keren Haagen PLANT GENERAL MANAGER.DIGITAL SALES MANAGER Work Phone: [facility] Comment on above: Refill Request Start: 10-08-2024 End: 12-08-2024 Follow-up encounter Chris Devlin APRN.DIGITAL SALES MANAGER, DNP Work Phone: Urology Start: 10-07-2024 End: 10-07-2024 [facility] Facility:[facility] Start: 10-07-2024 End: 10-07-2024 Patient encounter procedure Juarez Hernández DO Work Phone: [facility] Comment on above: Medial epicondylitis , right elbow (Primary Dx); Elbow pain, right Start: 10-02-2024 End: 10-02-2024 Refill Keren Haagen PLANT GENERAL MANAGER.DIGITAL SALES MANAGER Work Phone: [facility] Comment on above: Refill Request Start: 09-29-2024 End: 09-29-2024 Refill Keren Haagen PLANT GENERAL MANAGER.DIGITAL SALES MANAGER Work Phone: [facility] Comment on above: Refill Request Start: 09-28-2024 End: 09-28-2024 ambulatory [facility] Facility:[facility] Start: 09-28-2024 End: 09-28-2024 Office outpatient visit 25 minutes Chris Devlin APRN.MARLY VILLEDA Work Phone: Urology Comment on above: Elevated PSA (Primar y Dx); BPH with obstruction/lower urinary tract symptoms; ETOH abuse Hypertension, essent ial (Primary Dx); Elbow pain, right; Alcohol abuse; Current severe episode of major depressive disorder without psychotic features, unspecified whether recurrent (HCC); Hepatosplenomegaly; Hypertension, unspecified type; Elevated PSA; Anxiety and depression; Chronic insomnia Start: 09-28-2024 End: 09-28-2024 ambulatory [facility] Facility:[facility] Start: 09-25-2024 End: 09-25-2024 Telephone encounter Chris Devlin APRN.CNP, DNP Work Phone: Urology Comment on above: Appointment Start: 08-31-2024 End: 08-31-2024 Office outpatient visit 25 minutes Keren Kwon APRN.CNP Work Phone: [facility] [place] Comment on above: Hypertension, essent ial (Primary Dx); Current severe episode of major depressive disorder without psychotic features, unspecified whether recurrent (HCC); Alcohol abuse; Acute pain of left knee Start: 08-31-2024 End: 08-31-2024 [facility] Facility:[facility] Start: 08-28-2024 End: 08-31-2024 Telephone encounter Keren Kwon APRN.CNP Work Phone: [facility] [place] Comment on above: Results Start: 08-27-2024 End: 08-27-2024 ambulatory [facility] Facility:[facility] Start: 08-27-2024 End: 08-27-2024 Subsequent hospital visit by physician [facility] Work Phone: Radiology Comment on above: Elevated alkaline ph osphatase level [R74.8] Start: 08-24-2024 End: 08-24-2024 Office outpatient visit 25 minutes Keren Kwon APRN.CNP Work Phone: [facility] [place] Comment on above: Acute pain of left k nee (Primary Dx); Hx of non-ST elevation myocardial infarction (NSTEMI); Hypertension, unspecified type; Elevated alkaline phosphatase level; Elevated PSA; Acute gout of left knee, unspecified cause; Chronic alcohol abuse Start: 08-24-2024 End: 08-24-2024 ambulatory KEREN ANNE Facility:[facility] Start: 08-19-2024 End: 08-20-2024 Refill Keren Kwon APRN.DIGITAL SALES MANAGER Work Phone: [facility] [place] Comment on above: Refill Request Start: 08-12-2024 End: 08-21-2024 Telephone encounter Keren Kwon APRN.DIGITAL SALES MANAGER Work Phone: [facility] [place] Comment on above: Results Start: 08-11-2024 End: 08-11-2024 Subsequent hospital visit by physician [facility] [place] Work Phone: Radiology Comment on above: Acute pain of left k nee [M25.562] Start: 08-11-2024 End: 08-11-2024 Office outpatient visit 25 minutes Keren Kwon APRN.DIGITAL SALES MANAGER Work Phone: [facility] [place] Comment on above: Acute pain of left k nee (Primary Dx); Moderate hypertension Start: 08-11-2024 End: 08-11-2024 [facility] Start: 08-07-2024 End: 08-07-2024 Telephone encounter Keren Kwon APRN.DIGITAL SALES MANAGER Work Phone: [facility] Comment on above: Results Start: 08-05-2024 End: 08-05-2024 ambulatory [facility] Facility:[facility] Start: 07-23-2024 End: 07-23-2024 Emergency department patient visit Keren Kwon NP Facility:[facility] Start: 07-21-2024 End: 07-21-2024 Refill Keren Kwon APRN.DIGITAL SALES MANAGER Work Phone: [facility] [place] Comment on above: Refill Request Start: 07-13-2024 End: 07-13-2024 ambulatory No Pcp PLANT GENERAL MANAGER [facility] Start: 07-13-2024 End: 07-13-2024 Patient encounter procedure No Pcp PLANT GENERAL MANAGER [facility] Comment on above: Acute cough (Primary Dx) Start: 07-13-2024 End: 07-13-2024 Subsequent hospital visit by physician [facility] [place] Work Phone: Radiology Comment on above: Acute cough [R05.1] Start: 07-10-2024 End: 07-10-2024 Refill Keren Kwon APRN.CNP Work Phone: [facility] [place] Comment on above: Refill Request Start: 07-09-2024 End: 07-09-2024 Subsequent hospital visit by physician X[facility] [place] Work Phone: Radiology Comment on above: Injury of right elbo w, initial encounter [S59.901A] Start: 07-09-2024 End: 07-09-2024 [facility] Facility:[facility] Start: 07-09-2024 End: 07-09-2024 Office outpatient visit 15 minutes Desmond Duncan APRN.DIGITAL SALES MANAGER Work Phone: [facility] Comment on above: Sore throat (Primary Dx); Injury of right elbow, initial encounter; Viral illness Start: 07-09-2024 End: 07-12-2024 Telephone encounter Desmond Duncan APRN.DIGITAL SALES MANAGER Work Phone: [facility] Comment on above: Results Start: 06-29-2024 ambulatory [facility] Facility:[facility] Start: 06-22-2024 End: 06-22-2024 ambulatory [facility] Facility:[facility] Start: 06-22-2024 End: 06-22-2024 Patient encounter procedure Alma Delia Garza APRN.DIGITAL SALES MANAGER Work Phone: General Surgery Comment on above: Family hx of colon c ancer (Primary Dx); Screening for colon cancer; Hx of colonic polyps Start: 06-22-2024 End: 06-23-2024 Telephone encounter Alma Delia Garza APRN.DIGITAL SALES MANAGER Work Phone: General Surgery Start: 06-12-2024 End: 06-12-2024 Office outpatient visit 25 minutes Keren Haagen PLANT GENERAL MANAGER.DIGITAL SALES MANAGER Work Phone: [facility] [place] Comment on above: Coronary artery dise ase due to lipid rich plaque (Primary Dx); Encounter for immunization; Hypertriglyceridemia; GERD without esophagitis; Anxiety and depression; Hypomagnesemia; Chronic alcohol abuse; Chronic insomnia; Acute right-sided low back pain without sciatica; Moderate hypertension; Screening for prostate cancer; Screening for colon cancer; Bilateral carotid artery stenosis Start: 06-12-2024 End: 06-12-2024 ambulatory KEREN KWON Facility:[facility] Start: 10-14-2023 End: 10-14-2023 ambulatory CHIEF CONTROLLER-C Keren Kwon CHIEF CONTROLLER Work Phone: [facility] Work Phone: Start: 10-14-2023 End: 10-14-2023 Patient encounter procedure CHIEF CONTROLLER-C Keren Kwon CHIEF CONTROLLER Work Phone: [facility] Work Phone: Start: 05-15-2023 Non-patient / Non-visit CHIEF CONTROLLER-C Harjinder Owen NP Work Phone: [facility] Work Phone: Start: 05-14-2023 Non-patient / Non-visit CHIEF CONTROLLER-C Harjinder Owen CHIEF CONTROLLER Work Phone: [facility] Work Phone: Start: 05-13-2023 Non-patient / Non-visit CHIEF CONTROLLER-C Harjinder Owen CHIEF CONTROLLER Work Phone: [facility] Work Phone: Start: 05-13-2023 End: 05-16-2023 Evaluation and management of inpatient CHIEF CONTROLLER-C Vani Owen CHIEF CONTROLLER Work Phone: [facility]-Medical Surgical 3 Work Phone: Start: 04-09-2023 Telephone encounter Henry Espinosa MD Work Phone: Urgent Care Comment on above: Results Start: 04-08-2023 End: 04-08-2023 Patient encounter procedure Henry Morrow MD Work Phone: [facility] Comment on above: Influenza-like illne ss (Primary Dx); Hypertension, essential Start: 04-02-2023 Non-patient / Non-visit Dr. Alberto Yang Work Phone: [facility] Start: 04-01-2023 End: 04-01-[address] Pema Yang Work Phone: [facility] Work Phone: Start: 04-01-2023 End: 04-01-[address] Pema Yang Work Phone: [facility] Work Phone: Start: 02-11-2023 Non-patient / Non-visit Dr. Alberto Yang Work Phone: [facility] Start: 02-11-2023 End: 02-11-[address] Pema Yang Work Phone: [facility] Work Phone: Start: 02-11-2023 End: 02-11-[address] Pema Yang Work Phone: [facility] Work Phone: Start: 01-21-2023 End: 01-21-2023 Office outpatient visit 25 minutes Keren Kwon APRN.CNP Work Phone: [facility] Comment on above: Chest pain, unspecif ied type (Primary Dx); 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; Acute right-sided low back pain without sciatica; Hypertension, essential; Thrombocytopenia (HCC); Chronic alcohol abuse Start: 01-17-2023 End: 01-17-[address] Pema Yang Work Phone: [facility] Work Phone: Start: 01-17-2023 End: 01-17-[address] Pema Yang Work Phone: [facility]-Cat Scan, [facility] Work Phone: Start: 01-09-2023 End: 01-09-[address] Pema Yang Work Phone: [facility]-Pulmonary Medicine [facility] Work Phone: Start: 01-02-2023 End: 01-02-2023 Emergency department patient visit Dr. Pema Yang Work Phone: [facility]Emergency Department Work Phone: Start: 12-26-2022 Telephone encounter Keren rodríguez APRN.DIGITAL SALES MANAGER Work Phone: [facility] Comment on above: Results Start: 12-24-2022 End: 12-24-[address] Pema Yang Work Phone: [facility] Work Phone: Start: 11-05-2022 End: 11-05-2022 Office outpatient visit 25 minutes Keren Kwon APRN.DIGITAL SALES MANAGER Work Phone: [facility] Comment on above: Hypertension, essent ial (Primary Dx); GERD without esophagitis; Acute right-sided low back pain without sciatica; Anxiety and depression; Hypertriglyceridemia; Chronic alcohol abuse; 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; Renal insufficiency; Special screening examination for viral disease; Chronic insomnia; Bilateral carotid artery stenosis Start: 06-25-2022 End: 06-25-2022 Subsequent hospital visit by physician Xr [facility] Work Phone: Radiology Comment on above: Foot pain, right [M7 9.671] Start: 06-25-2022 End: 06-25-2022 Patient encounter procedure Ziggy Mobley APRN.DIGITAL SALES MANAGER Work Phone: [facility] Comment on above: Foot pain, right (Pr imary Dx) Start: 06-05-2022 End: 06-05-2022 Patient encounter procedure Rebecca Devries GERARDO.DIGITAL SALES MANAGER Work Phone: [facility] Comment on above: Body aches (Primary Dx); Flu-like symptoms Start: 03-28-2022 Refill Keren Kwon APRN.DIGITAL SALES MANAGER Work Phone: [facility] Comment on above: Refill Request Start: 02-23-2022 Telephone encounter Mikhail Mancia MD Work Phone: [facility] Comment on above: Results Start: 02-23-2022 End: 02-23-2022 Office outpatient visit 15 minutes Keren Kwon APRN.DIGITAL SALES MANAGER Work Phone: [facility] Comment on above: Sinobronchitis (Prim braeden Dx); Anxiety and depression; Hypertension, essential; Hypertriglyceridemia; Chronic alcohol abuse; Chest pain, unspecified type; 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; Chronic insomnia; GERD without esophagitis; Acute right-sided low back pain without sciatica; Dermatitis Start: 02-19-2022 End: 02-19-2022 Subsequent hospital visit by physician Xr [facility] Work Phone: Radiology Comment on above: Acute cough [R05.1] Start: 02-19-2022 End: 02-19-2022 Patient encounter procedure Ziggy King GERARDO.DIGITAL SALES MANAGER Work Phone: [facility] Comment on above: Acute cough (Primary Dx); Hypertension, essential; URI, acute Start: 11-15-2021 End: 11-15-2021 Patient encounter procedure Keren Kwon APRN.DIGITAL SALES MANAGER Work Phone: [facility] [place] Comment on above: Upper back pain (Mary danish Dx); Function kidney decreased Start: 11-09-2021 Telephone encounter Rolando Young PA-C Work Phone: [facility] Comment on above: Results report from [facility] Start: 11-08-2021 End: 11-08-2021 Emergency department patient visit [facility]Emergency Department Start: 11-08-2021 ambulatory Haris Dawkins RN [facility] Start: 11-08-2021 Patient encounter procedure Haris Dawkins RN NURSE MANAGER IN[employer]STRUCTURE Comment on above: Referral Request Start: 11-08-2021 Telephone encounter Keren rodríguez APRN.CHRISTIANA Work Phone: [facility] [place] Comment on above: Results Start: 11-01-2021 End: 11-01-2021 Patient encounter procedure Keren Kwon APRN.CHRISTIANA Work Phone: [facility] [place] Comment on above: Chest pain, unspecif ied type (Primary Dx); GERD without esophagitis; Anxiety and depression; Fatigue, unspecified type; Snoring; Hypertension, essential; Chronic alcohol abuse; 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; Renal insufficiency; Acute right-sided low back pain without sciatica; Bilateral carotid artery stenosis; Elevated glucose; Hypertriglyceridemia; Chronic insomnia; Diverticulitis; Encounter for screening for cardiovascular disorders Start: 03-18-2018 Ambulatory CANDELARIO ARELLANO Facility :[facility] Start: 09-10-2017 End: 09-10-2017 [facility] Procedures Date Procedure Procedure Detail Performing Clinician Start: 10-07-2024 Injection single tendon origin/insertion Juarez Hernández DO Work Phone: Start: 09-28-2024 Urnls dip stick/tablet rgnt auto w/o microscopy Chris Devlin PLANT GENERAL MANAGER.DIGITAL SALES MANAGER, DNP Work Phone: Start: 08-27-2024 Us abdominal real time w/image limited Keren Kwon APRN.DIGITAL SALES MANAGER Work Phone: Start: 08-05-2024 Lipid 1996 panel - Serum or Plasma Keren Kwon APRN.DIGITAL SALES MANAGER Work Phone: Start: 07-13-2024 Radiologic exam chest 2 views Rosa Moomajodie PLANT GENERAL MANAGER.DIGITAL SALES MANAGER Work Phone: Start: 07-09-2024 Radex elbow complete minimum 3 views Desmond Duncan PLANT GENERAL MANAGER.DIGITAL SALES MANAGER Work Phone: Start: 07-09-2024 STREP A MOLECULAR (POC) Rocio Messina PLANT GENERAL MANAGER.DIGITAL SALES MANAGER Work Phone: Start: 05-13-2023 Nucleic acid assay CHIEF CONTROLLER-C Vani Owen N P Work Phone: Start: 05-13-2023 US scan of gallbladder CHIEF CONTROLLER-C Vani lloyd CHIEF CONTROLLER Work Phone: Start: 05-13-2023 CT of abdomen and pelvis without contrast CHIEF CONTROLLER-C Vani Owen CHIEF CONTROLLER Work Phone: Start: 02-11-2023 Radionuclide imaging of perfusion of myocardium under exercise stress Dr. Pema Yang Work Phone: Start: 01-17-2023 CT of chest without contrast Dr. Pema Yang Work Phone: Start: 01-02-2023 Plain chest X-ray Dr. Pema Yang Work Phone: Start: 01-02-2023 CT of abdomen and pelvis without contrast Dr. Pema Yang Work Phone: Start: 11-05-2022 Lipid 1996 panel - Serum or Plasma Henry Morrow MD Work Phone: Start: 06-25-2022 Radex foot complete minimum 3 views Ziggy Mobley APRN.DIGITAL SALES MANAGER Work Phone: Start: 02-19-2022 Radiologic exam chest 2 views Ziggy Mobley APRN.DIGITAL SALES MANAGER Work Phone: Start: 11-08-2021 CT of abdomen and pelvis without contrast Start: 01-12-2019 Colonoscopy Keren Kwon APRN.DIGITAL SALES MANAGER Work Phone: H/O: surgery Hx of eye surgery History of tonsillectomy History of tonsi llectomy Plan of Treatment Date Care Activity Detail Author Start: 12-30-2031 Pneumococcal vaccination Pneumococcal Vaccine (3 of 3 - PPSV23 or PCV20) [facility] Start: 10-07-2029 Prostate specific antigen measurement Prostate Cancer Screening Discussion [facility] Start: 08-11-2029 Prostate specific antigen measurement Prostate Cancer Screening Discussion [facility] Start: 08-05-2029 Lipid panel Lipid Screening [facility] Start: 08-05-2029 Prostate specific antigen measurement Prostate Cancer Screening Discussion [facility] Start: 11-06-2027 Lipid 1996 panel - Serum or Plasma Lipid Screening [facility] Start: 11-06-2027 Lipid panel Lipid Screening [facility] Start: 11-06-2027 LIPID SCREEN LIPID SCREEN [facility] Start: 08-11-2027 Diabetes Screening Diabetes Screening [facility] Start: 08-05-2027 Diabetes Screening Diabetes Screening [facility] Start: 02-21-2027 LIPID SCREEN LIPID SCREEN [facility] Start: 11-07-2026 LIPID SCREEN LIPID SCREEN [facility] Start: 07-10-2026 Urine microalbumin profile [facility] Start: 12-11-2025 Annual PCP Team Chronic Disease Visit Annual PCP Team Chronic Disease Visit [facility] Start: 11-05-2025 DIABETES SCREEN DIABETES SCREEN [facility] Start: 11-05-2025 Diabetes Screening Diabetes Screening [facility] Start: 09-28-2025 Annual PCP Team Chronic Disease Visit Annual PCP Team Chronic Disease Visit [facility] Start: 08-31-2025 Annual PCP Team Chronic Disease Visit Annual PCP Team Chronic Disease Visit [facility] Start: 08-24-2025 Annual PCP Team Chronic Disease Visit Annual PCP Team Chronic Disease Visit [facility] Start: 08-11-2025 Annual PCP Team Chronic Disease Visit Annual PCP Team Chronic Disease Visit [facility] Start: 08-05-2025 Hepatitis B surface antibody level LDL Cholesterol [facility] Start: 07-09-2025 BP Controlled (<130/80) BP Controlled (<130/80) [facility] Start: 06-14-2025 End: 06-14-2025 Patient encounter procedure 06/14/2025 2:40 PM EST Office Visit Family Juanito Masterson [address] [place] [id number] Keren Kwon, PLANT GENERAL MANAGER.DIGITAL SALES MANAGER [address] [place] [address] 6 month follow up/Annual Family [facility] Comment on above: 6 month follow up/Annual Start: 06-12-2025 Annual PCP Team Chronic Disease Visit Annual PCP Team Chronic Disease Visit [facility] Start: 06-12-2025 HIV screening HIV Screening [facility] Comment on above: Postponed from 1984 (Declined at t his time) Start: 03-22-2025 Influenza vaccination Influ[facility] Vaccine (#[facility]) [facility] Start: 01-06-2025 LIPID SCREEN LIPID SCREEN [facility] Start: 12-21-2024 End: 03-22-2025 Prostate Specific Ag Free [Mass/volume] in Serum or Plasma PROSTATE SPECIFIC ANTIGEN, FREE Lab Routine Elevated PSA Expected: 12/21/2024, Expires: 03/22/2025 [facility] Work Phone: Comment on above: Expected: 12/21/2024, Expires: Start: 12-11-2024 End: 12-11-2024 Patient encounter procedure 12/11/2024 2:20 PM EDT Office Visit [facility] [address] [place] [address] Keren Kwon, PLANT GENERAL MANAGER.DIGITAL SALES MANAGER [address] [place] [address] Follow up visit. [facility] Comment on above: Follow up visit. Start: 12-01-2024 End: 12-01-2024 Patient encounter procedure 12/01/2024 2:40 PM EDT Office Visit [facility] [place] [address] [place] [address] Keren Kwon, PLANT GENERAL MANAGER.DIGITAL SALES MANAGER [address] [facility] [place] [address] Follow up from injury [facility] Comment on above: Follow up from injury Start: 11-30-2024 End: 11-30-2024 Patient encounter procedure 11/30/2024 1:00 PM EDT Office Visit Urology [address] [place] [facility] [place] [address] Chris Devlin, PLANT GENERAL MANAGER.DIGITAL SALES MANAGER, DNP [address] [place] [address] 1 month f/u- BPH, Elevated PSA Urology Comment on above: 1 month f/u- BPH, Elevated PSA Start: 11-07-2024 DIABETES SCREEN DIABETES SCREEN [facility] Start: 11-02-2024 End: 11-02-2024 Patient encounter procedure 11/02/2024 1:00 PM EDT [facility] [address] [place] [address] Keren Kwon APRN.DIGITAL SALES MANAGER [address] [place] [address] 3 month follow up Family Juanito Masterson Comment on above: 3 month follow up Start: 10-07-2024 End: 10-07-2024 Patient encounter procedure 10/07/2024 1:30 PM EDT Office Visit Family [facility] [address] [place] [address] Juarez Hernández V, DO [address] [place] [address] Elbow pain, right [M25.521] Family Juanito Masterson Comment on above: Elbow pain, right [M25.521] Start: 09-29-2024 End: 2024 Prostate Specific Ag Free [Mass/volume] in Serum or Plasma PROSTATE SPECIFIC ANTIGEN, FREE Lab Routine Elevated PSA Expected: 09/29/2024, Expires: 2024 [facility] Comment on above: Expected: 09/29/2024, Expires: Start: 09-28-2024 End: 09-28-2024 Patient encounter procedure Urology Comment on above: Elevated PSA [R97.20] 4 week BP check Elevated PSA. Patien t to come in at 1230. [facility] Start: 08-31-2024 End: 08-31-2024 Patient encounter procedure 08/31/2024 3:20 PM EST Office Visit Family Juanito Masterson [address] [facility] [place] [address] Keren Kwon APRN.DIGITAL SALES MANAGER [address] [facility] [place] [address] 1 week BP check [facility] Juanito Masterson Comment on above: 1 week BP check Start: 08-27-2024 End: 08-27-2024 Patient encounter procedure 08/27/2024 1:45 PM EST Appointment Radiology [address] [place] [address] Elevated alkaline phosphatase level [R74.8] Radiology Comment on above: Elevated alkaline phosphatase level [R74 .8] Start: 08-24-2024 End: 08-24-2024 Patient encounter procedure 08/24/2024 11:20 AM EST Office Visit [facility] [address] [place] [address] Keren Kwon APRN.DIGITAL SALES MANAGER [address] [place] [address] f/u left knee pain [facility] Comment on above: f/u left knee pain Start: 08-11-2024 End: 11-10-2024 C reactive protein [Mass/volume] in Serum or Plasma [facility] Comment on above: Expected: 08/11/2024, Expires: Start: 08-11-2024 End: 11-10-2024 Erythrocyte sedimentation rate [facility] Comment on above: Expected: 08/11/2024, Expires: Start: 08-11-2024 End: 11-10-2024 Urate [Mass/volume] in Serum or Plasma [facility] Comment on above: Expected: 08/11/2024, Expires: Start: 08-11-2024 End: 08-11-2024 Patient encounter procedure 08/11/2024 1:00 PM EST Office Visit [facility] [place] [address] [place] [address] Keren Kwon, PLANT GENERAL MANAGER.DIGITAL SALES MANAGER [address] [place] [address] [facility] 07/23/24 dx: L knee pain after falling from ladder [facility] Comment on above: [facility] ER 07/23/24 dx: L knee pain after fall ing from ladder Start: 08-07-2024 End: 11-06-2024 ALK PHOS ISOENZYM BL ALK PHOS ISOENZYM BL Lab Routine Elevated alkaline phosphatase level Expected: 08/07/2024, Expires: 11/06/2024 [facility] Comment on above: Expected: 08/07/2024, Expires: Start: 08-07-2024 End: 11-06-2024 Basic metabolic 2000 panel - Serum or Plasma BASIC METABOLIC PANEL Lab Routine Hyponatremia Expected: 08/07/2024, Expires: 11/06/2024 [facility] Work Phone: Comment on above: Expected: 08/07/2024, Expires: Start: 08-07-2024 End: 11-06-2024 CBC W Auto Differential panel - Blood COMPLETE BLOOD COUNT AND DIFFERENTIAL Lab Routine Elevated hemoglobin (HCC) Expected: 08/07/2024, Expires: 11/06/2024 [facility] Comment on above: Expected: 08/07/2024, Expires: Start: 08-07-2024 End: 11-06-2024 Osmolality of Urine OSMOLALITY URINE Lab Routine Hyponatremia Expected: 08/07/2024, Expires: 11/06/2024 [facility] Comment on above: Expected: 08/07/2024, Expires: Start: 08-07-2024 End: 11-06-2024 Prostate Specific Ag Free [Mass/volume] in Serum or Plasma PROSTATE SPECIFIC ANTIGEN, FREE Lab Routine Elevated PSA Expected: 08/07/2024, Expires: 11/06/2024 [facility] Comment on above: Expected: 08/07/2024, Expires: Start: 08-07-2024 End: 11-06-2024 Sodium [Moles/volume] in Urine collected for unspecified duration SODIUM RANDOM URINE Lab Routine Hyponatremia Expected: 08/07/2024, Expires: 11/06/2024 [facility] Comment on above: Expected: 08/07/2024, Expires: Start: 08-05-2024 End: 08-05-2024 Patient encounter procedure 08/05/2024 12:30 PM EST Office Visit [facility] [address] [place] [address] Bilateral carotid artery stenosis [I65.23] [facility] Comment on above: Bilateral carotid artery stenosis [I65.2 3] Start: 07-08-2024 End: 07-08-2024 Patient encounter procedure 07/08/2024 3:30 PM EST Office Visit [facility] [address] [place] [address] Bilateral carotid artery stenosis [I65.23] [facility] Comment on above: Bilateral carotid artery stenosis [I65.2 3] Start: 06-22-2024 End: 06-22-2024 Patient encounter procedure 06/22/2024 4:00 PM EST Office Visit General Surgery [address] [place] [address] Alma Delia Garza APRN.DIGITAL SALES MANAGER [address] [place] [address] Screening for colon cancer [Z12.11] General Surgery Comment on above: Screening for colon cancer [Z12.11] Start: 06-12-2024 End: 09-11-2024 CBC W Auto Differential panel - Blood COMPLETE BLOOD COUNT AND DIFFERENTIAL Lab Routine Moderate hypertension Expected: 06/12/2024, Expires: 09/11/2024 [facility] Work Phone: Comment on above: Expected: 06/12/2024, Expires: Start: 06-12-2024 End: 09-11-2024 Cobalamin (Vitamin B12) [Mass/volume] in Serum or Plasma VITAMIN B12 Lab Routine Chronic alcohol abuse Expected: 06/12/2024, Expires: 09/11/2024 [facility] Comment on above: Expected: 06/12/2024, Expires: Start: 06-12-2024 End: 09-11-2024 Comprehensive metabolic 2000 panel - Serum or Plasma COMPREHENSIVE METABOLIC PANEL Lab Routine Moderate hypertension Expected: 06/12/2024, Expires: 09/11/2024 [facility] Comment on above: Expected: 06/12/2024, Expires: Start: 06-12-2024 End: 09-11-2024 Folate [Mass/volume] in Serum or Plasma FOLATE, SERUM Lab Routine Chronic alcohol abuse Expected: 06/12/2024, Expires: 09/11/2024 [facility] Comment on above: Expected: 06/12/2024, Expires: Start: 06-12-2024 End: 09-11-2024 Lipid 1996 panel - Serum or Plasma LIPID PANEL BASIC Lab Routine Hypertriglyceridemia Coronary artery disease due to lipid rich plaque Expected: 06/12/2024, Expires: 09/11/2024 [facility] Comment on above: Expected: 06/12/2024, Expires: Start: 06-12-2024 End: 09-11-2024 Magnesium [Mass/volume] in Serum or Plasma MAGNESIUM Lab Routine Hypomagnesemia Chronic alcohol abuse Expected: 06/12/2024, Expires: 09/11/2024 [facility] Comment on above: Expected: 06/12/2024, Expires: Start: 06-12-2024 End: 09-11-2024 PSA/PROSTATE SPECIFIC ANTIGEN SCREENING PSA/PROSTATE SPECIFIC ANTIGEN SCREENING Lab Routine Screening for prostate cancer Expected: 06/12/2024, Expires: 09/11/2024 [facility] Comment on above: Expected: 06/12/2024, Expires: Start: 03-22-2024 Covid-19 Vaccine ( season) Covid-19 Vaccine () [facility] Start: 03-22-2024 Influenza vaccination Influenza Vaccine (#1) [facility] Start: 01-22-2024 ANNUAL PCP TEAM CHRONIC DISEASE VISIT ANNUAL PCP TEAM CHRONIC DISEASE VISIT [facility] Start: 01-13-2024 Colonoscopy COLONOSCOPY [facility] Start: 01-13-2024 COLORECTAL CANCER SCREENING COLORECTAL CANCER SCREENING [facility] Start: 01-13-2024 Screening for malignant neoplasm of colon [facility] Start: 11-06-2023 ANNUAL PCP TEAM CHRONIC DISEASE VISIT ANNUAL PCP TEAM CHRONIC DISEASE VISIT [facility] Start: 11-06-2023 COVID-19 VACCINE (#1) COVID-19 VACCINE (#1) [facility] Comment on above: Postponed from 06/30/1967 (Declined at t his time) Start: 11-06-2023 HEPATITIS B (1 of 3 - 3-dose series) HEPATITIS B (1 of 3 - 3-dose series) [facility] Comment on above: Postponed from 1966 (Declined at t his time) Start: 11-06-2023 Hepatitis B Vaccine (1 of 3 - 3-dose series) Hepatitis B Vaccine (1 of 3 - 3-dose series) [facility] Comment on above: Postponed from 1966 (Declined at t his time) Start: 11-06-2023 HIV SCREENING HIV SCREENING [facility] Comment on above: Postponed from 1984 (Declined at t his time) Start: 11-06-2023 PROSTATE CANCER SCREENING DISCUSSION PROSTATE CANCER SCREENING DISCUSSION [facility] Comment on above: Postponed from 2021 (Declined at t his time) Start: 06-25-2023 BP CONTROLLED (<130/80) BP CONTROLLED (<130/80) [facility] Start: 05-16-2023 Patient discharge [facility] Start: 05-13-2023 Ambulation without limitation [facility] Start: 05-13-2023 Assessment of risk of venous thromboembolism [facility] Start: 05-13-2023 Inhalation therapy procedure [facility] Start: 05-13-2023 Insertion of catheter into peripheral vein [facility] Start: 05-13-2023 Measuring intake and output [facility] Start: 05-13-2023 Oxygen therapy [facility] Start: 05-13-2023 Providing care according to standard [facility] Start: 05-13-2023 Referral to service [facility] Start: 05-13-2023 End: 05-13-2023 [facility] Start: 05-13-2023 Following clinical pathway protocol [facility] Start: 05-13-2023 Verification routine [facility] Start: 05-13-2023 Admission procedure [facility] Start: 05-13-2023 Hospital admission, emergency, from emergency room, medical nature [facility] Start: 05-13-2023 [facility] Start: 05-13-2023 Consultation [facility] Start: 05-13-2023 Patient referral to dietitian [facility] Start: 03-22-2023 Influenza vaccination [facility] Start: 02-23-2023 ANNUAL PCP TEAM CHRONIC DISEASE VISIT ANNUAL PCP TEAM CHRONIC DISEASE VISIT [facility] Start: 01-21-2023 End: 03-23-2023 Cobalamin (Vitamin B12) [Mass/volume] in Serum or Plasma [facility] Work Phone: Comment on above: Expected: 01/21/2023, Expires: 3 Start: 01-21-2023 End: 03-23-2023 Folate [Mass/volume] in Serum or Plasma [facility] Work Phone: Comment on above: Expected: 01/21/2023, Expires: 3 Start: 01-06-2023 DIABETES SCREEN DIABETES SCREEN [facility] Start: 11-15-2022 ANNUAL PCP TEAM CHRONIC DISEASE VISIT ANNUAL PCP TEAM CHRONIC DISEASE VISIT [facility] Start: 11-05-2022 End: 01-05-2023 Comprehensive metabolic 2000 panel - Serum or Plasma [facility] Work Phone: Comment on above: Expected: 11/05/2022, Expires: 3 Start: 11-05-2022 End: 01-05-2023 Lipid 1996 panel - Serum or Plasma [facility] Work Phone: Comment on above: Expected: 11/05/2022, Expires: 3 Start: 11-05-2022 End: 01-05-2023 Magnesium [Mass/volume] in Serum or Plasma [facility] Work Phone: Comment on above: Expected: 11/05/2022, Expires: 3 Start: 11-01-2022 ANNUAL PCP TEAM CHRONIC DISEASE VISIT ANNUAL PCP TEAM CHRONIC DISEASE VISIT [facility] Start: 06-05-2022 End: 06-19-2022 Influenza virus A and B RNA and SARS-CoV-2 (COVID-19) N gene panel - Respiratory specimen by ABBY with probe detection COVID WITH FLUA+B, ROUTINE Microbiology Routine Body aches Flu-like symptoms Expected: 06/05/2022, Expires: 06/19/2022 [facility] Work Phone: Comment on above: Expected: 06/05/2022, Expires: 2 Start: 03-22-2022 Influenza vaccination [facility] Start: 02-08-2022 End: 04-10-2022 CK CREATINE KINASE CK CREATINE KINASE Lab Routine NSTEMI (non-ST elevated myocardial infarction) (HCC) Hypertriglyceridemia Hyperlipidemia, mixed Expected: 02/08/2022, Expires: 04/10/2022 [facility] Work Phone: Comment on above: Expected: 02/08/2022, Expires: 2 Start: 02-08-2022 End: 04-10-2022 LIPID PANEL BASIC LIPID PANEL BASIC Lab Routine NSTEMI (non-ST elevated myocardial infarction) (HCC) Hypertriglyceridemia Hyperlipidemia, mixed Expected: 02/08/2022, Expires: 04/10/2022 [facility] Work Phone: Comment on above: Expected: 02/08/2022, Expires: 2 Start: 2021 PROSTATE CANCER SCREENING DISCUSSION PROSTATE CANCER SCREENING DISCUSSION [facility] Start: 2021 Prostate specific antigen measurement Prostate Cancer Screening Discussion [facility] Start: 11-15-2021 End: 01-15-2022 Comprehensive metabolic 2000 panel - Serum or Plasma COMP METABOLIC PANEL Lab Routine Function kidney decreased Expected: 11/15/2021, Expires: 01/15/2022 [facility] Work Phone: Comment on above: Expected: 11/15/2021, Expires: 2 Start: 11-09-2021 End: 01-09-2022 POTASSIUM BLD POTASSIUM BLD Lab STAT Serum potassium elevated Expected: 11/09/2021, Expires: 01/09/2022 [facility] Work Phone: Comment on above: Expected: 11/09/2021, Expires: 2 Start: 11-01-2021 End: 01-01-2022 CBC W Auto Differential panel - Blood CBC + DIFF Lab Routine Fatigue, unspecified type Expected: 11/01/2021, Expires: 01/01/2022 [facility] Work Phone: Comment on above: Expected: 11/01/2021, Expires: 2 Start: 11-01-2021 End: 01-01-2022 Comprehensive metabolic 2000 panel - Serum or Plasma COMP METABOLIC PANEL Lab Routine Hypertension, essential Renal insufficiency Expected: 11/01/2021, Expires: 01/01/2022 [facility] Work Phone: Comment on above: Expected: 11/01/2021, Expires: 2 Start: 11-01-2021 End: 01-01-2022 FERRITIN BLD FERRITIN BLD Lab Routine Fatigue, unspecified type Expected: 11/01/2021, Expires: 01/01/2022 [facility] Work Phone: Comment on above: Expected: 11/01/2021, Expires: 2 Start: 11-01-2021 End: 01-01-2022 Folate [Mass/volume] in Serum or Plasma FOLATE SERUM Lab Routine Fatigue, unspecified type Chronic alcohol abuse Expected: 11/01/2021, Expires: 01/01/2022 [facility] Work Phone: Comment on above: Expected: 11/01/2021, Expires: 2 Start: 11-01-2021 End: 01-01-2022 Hemoglobin A1c/Hemoglobin.total in Blood HGB A1C Lab Routine Elevated glucose Expected: 11/01/2021, Expires: 01/01/2022 [facility] Work Phone: Comment on above: Expected: 11/01/2021, Expires: 2 Start: 11-01-2021 End: 01-01-2022 IRON + TIBC IRON + TIBC Lab Routine Fatigue, unspecified type Expected: 11/01/2021, Expires: 01/01/2022 [facility] Work Phone: Comment on above: Expected: 11/01/2021, Expires: 2 Start: 11-01-2021 End: 01-01-2022 LIPID PANEL BASIC LIPID PANEL BASIC Lab Routine 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 Expected: 11/01/2021, Expires: 01/01/2022 [facility] Work Phone: Comment on above: Expected: 11/01/2021, Expires: 2 Start: 11-01-2021 End: 01-01-2022 Magnesium [Mass/volume] in Serum or Plasma MAGNESIUM BLD Lab Routine GERD without esophagitis Chronic alcohol abuse Expected: 11/01/2021, Expires: 01/01/2022 [facility] Work Phone: Comment on above: Expected: 11/01/2021, Expires: 2 Start: 11-01-2021 End: 11-01-2022 SARS-CoV-2 (COVID-19) RNA [Presence] in Respiratory specimen by ABBY with probe detection PRE-PROCEDURE & PRE-OPERATIVE COVID Microbiology Routine Chest pain, unspecified type Expected: 11/01/2021, Expires: 11/01/2022 [facility] Work Phone: Comment on above: Expected: 11/01/2021, Expires: 3 Start: 11-01-2021 End: 01-01-2022 Thyrotropin [Units/volume] in Serum or Plasma TSH BLD Lab Routine Fatigue, unspecified type Expected: 11/01/2021, Expires: 01/01/2022 [facility] Work Phone: Comment on above: Expected: 11/01/2021, Expires: 2 Start: 11-01-2021 End: 01-01-2022 VITAMIN B12 BLOOD VITAMIN B12 BLOOD Lab Routine Fatigue, unspecified type Expected: 11/01/2021, Expires: 01/01/2022 [facility] Work Phone: Comment on above: Expected: 11/01/2021, Expires: 2 Start: 05-17-2021 Pneumococcal Vaccine: 50+ (3 of 3 - PCV20 or PCV21) Pneumococcal Vaccine: 50+ (3 of 3 - PCV20 or PCV21) [facility] Start: 11-10-2019 SHINGRIX VACCINE (2 of 2) SHINGRIX VACCINE (2 of 2) [facility] Start: 12-06-2018 FECAL OCCULT BLOOD FECAL OCCULT BLOOD [facility] Start: 12-06-2018 Screening for malignant neoplasm of colon Fecal Occult Blood [facility] Start: 05-17-2017 PNEUMOCOCCAL (2 - PCV) PNEUMOCOCCAL (2 - PCV) [facility] Start: 05-17-2017 Pneumococcal vaccination Pneumococcal Vaccine (2 - PCV) [facility] Start: 12-30-2011 COLOGUARD (FIT-DNA) COLOGUARD (FIT-DNA) [facility] Start: 12-30-[address] COLONOGRAPHY [facility] Start: 12-30-2011 Screening for malignant neoplasm of colon [facility] Start: 12-30-2011 SIGMOIDOSCOPY SIGMOIDOSCOPY [facility] Start: 1985 Hepatitis B Vaccine (1 of 3 - 19+ 3-dose series) Hepatitis B Vaccine (1 of 3 - 19+ 3-dose series) [facility] Start: 1984 BP CONTROLLED (<130/80) BP CONTROLLED (<130/80) [facility] in Start: 1984 HEPATITIS C SCREENING HEPATITIS C SCREENING [facility] Start: 1984 HIV SCREENING HIV SCREENING [facility] Start: 1984 HIV screening HIV Screening [facility] Start: 12-30-1971 COVID-19 VACCINE (1) COVID-19 VACCINE (1) [facility] Start: 06-30-1967 COVID-19 VACCINE (#1) COVID-19 VACCINE (#1) [facility] Start: 1966 HEPATITIS B (1 of 3 - 3-dose series) HEPATITIS B (1 of 3 - 3-dose series) [facility] COVID & INFLUENZA A/ B & RSV PCR, ROUTINE COVID & INFLUENZA A/B & RSV PCR, ROUTINE Microbiology Routine Acute cough 07/13/2024 3:21 PM EST [facility] Work Phone: End: 11-01-2022 ECG COMPLETE ECG COMPLETE ECG Routine Chest pain, unspecified type 1 Occurrences starting 11/01/2021 until 11/01/2022 [facility] Work Phone: Comment on above: 1 Occurrences starting 11/01/2021 until 11/01/2022 Influenza virus A an d B RNA and SARS-CoV-2 (COVID-19) N gene panel - Respiratory specimen by ABBY with probe detection COVID WITH FLUA+B, ROUTINE Microbiology Routine Acute cough Ordered: 02/19/2022 [facility] Work Phone: Comment on above: Ordered: 02/19/2022 Influenza virus A an d B RNA and SARS-CoV-2 (COVID-19) N gene panel - Respiratory specimen by ABBY with probe detection COVID & INFLUENZA A/B NAAT, ROUTINE Microbiology Routine Influenza-like illness 04/08/2023 9:47 AM EDT [facility] Work Phone: Lipid 1996 panel - Serum or Plasma [facility] Measurement of respiratory function [facility] NM CARDIAC PERF STRESS/PHARM NM CARDIAC PERF STRESS/PHARM Radiology Routine Chest pain, unspecified type Encounter for screening for cardiovascular disorders Ordered: 11/01/2021 [facility] Work Phone: Comment on above: Ordered: 11/01/2021 Patient Education [facility] Work Phone: Patient referral [facility] Work Phone: POST VOID RESIDUAL POST VOID RES IDUAL Procedures Routine Elevated PSA BPH with obstruction/lower urinary tract symptoms Ordered: 09/28/2024 [facility] Work Phone: Comment on above: Ordered: 09/28/2024 Radionuclide imaging of perfusion of myocardium under exercise stress [facility] End: 01-25-2024 US ABD RIGHT UPPER QUADRANT US ABD RIGHT UPPER QUADRANT Radiology Routine Elevated liver enzymes 1 Occurrences starting 12/26/2022 until 01/25/2024 [facility] Work Phone: Comment on above: 1 Occurrences starting 12/26/2022 until 01/25/2024 End: 09-13-2025 US Abdomen RUQ US ABD RIGHT UPPER QUADRANT Radiology Routine Elevated alkaline phosphatase level 1 Occurrences starting 08/14/2024 until 09/13/2025 [facility] Work Phone: Comment on above: 1 Occurrences starting 08/14/2024 until 09/13/2025 End: 06-12-2025 US Carotid arteries - bilateral US CAROTID ARTERIES [facility] Routine Bilateral carotid artery stenosis 1 Occurrences starting 06/12/2024 until 06/12/2025 [facility] Comment on above: 1 Occurrences starting 06/12/2024 until 06/12/2025 End: 11-01-2022 [facility] CAROTID [facility]ERIES [facility] US CAROTID ARTERIES [facility] Lab Routine Bilateral carotid artery stenosis 1 Occurrences starting 11/01/2021 until 11/01/2022 [facility] Work Phone: Comment on above: 1 Occurrences starting 11/01/2021 until 11/01/2022 End: 11-06-2023 US CAROTID ARTERIES [facility] US CAROTID ARTERIES [facility] Lab Routine Bilateral carotid artery stenosis 1 Occurrences starting 11/05/2022 until 11/06/2023 [facility] Work Phone: Comment on above: 1 Occurrences starting 11/05/2022 until 11/06/2023 [facility] End: 09-10-2025 XR Knee - left 4 Views XR KNEE GENERAL 4V AP BOTH/PA BOTH/LAT/MERC LEFT Radiology Routine Acute pain of left knee 1 Occurrences starting 08/11/2024 until 09/10/2025 [facility] Work Phone: Comment on above: 1 Occurrences starting 08/11/2024 until 09/10/2025 XR Knee - left 4 Views XR KNEE G ENERAL 4V AP BOTH/PA BOTH/LAT/MERC LEFT Radiology Routine Acute pain of left knee 08/11/2024 2:35 PM EST [facility] Immunizations Immunization Date Immunization Notes Care Provider Bolivar ervin 06-12-2024 influenza, seasonal, injectable Keren Kwon PLANT GENERAL MANAGER.DIGITAL SALES MANAGER Work Phone: [facility] 06-12-2024 influenza virus vacc ine, unspecified formulation Keren Kwon PLANT GENERAL MANAGER.DIGITAL SALES MANAGER Work Phone: [facility] 05-14-2023 influenza, injectabl e, quadrivalent, preservative free CHIEF CONTROLLER-C Vani Owen CHIEF CONTROLLER Work Phone: [facility] 09-15-2019 zoster vaccine recombinant Keren Kwon PLANT GENERAL MANAGER.DIGITAL SALES MANAGER Work Phone: [facility] Work Phone: 06-01-2019 influenza, injectabl e, quadrivalent, preservative free Dr. Pema Yang Work Phone: [facility] 06-01-2019 influenza, seasonal, injectable [facility] 06-01-2019 influenza virus vacc ine, unspecified formulation Henry Morrow MD Work Phone: [facility] 08-28-2018 influenza, injectabl e, quadrivalent, contains preservative Keren Kwon PLANT GENERAL MANAGER.DIGITAL SALES MANAGER Work Phone: [facility] 06-24-2017 Influenza virus vaccine [facility] 07-10-2016 tetanus toxoid, redu adriana diphtheria toxoid, and acellular pertussis vaccine, adsorbed Keren Kwon PLANT GENERAL MANAGER.DIGITAL SALES MANAGER Work Phone: [facility] 05-17-2016 pneumococcal polysaccharide vaccine, 23 valent Ziggy Mobley PLANT GENERAL MANAGER.DIGITAL SALES MANAGER Work Phone: [facility] 04-25-2015 pneumococcal conjuga te vaccine, 13 valent [facility] 05-20-2014 influenza, seasonal, injectable Keren Kwon PLANT GENERAL MANAGER.DIGITAL SALES MANAGER Work Phone: [facility] Work Phone: Payers Date Payer Category Payer Self-pay [id number] 2014 Medicaid [id number] 2014 Medicaid [facility] MEDICAID [id number] 2014-Present [phone] [address] [place] [address] Medicaid [id number] 2014 Medicaid [id number] 2014 Unknown [id number] Unknown [id number] Unknown [id number] Unknown [id number] Unknown [id number] Unknown [id number] Social History Date Type Detail Facility Start: 07-24-2016 End: 09-28-2024 Tobacco smoking status NHIS Ex-smoker [facility] Start: 12-30-1983 End: 05-30-2014 History of tobacco use Current smoker [facility] Start: 07-24-2016 End: 11-22-2022 Cigarettes smoked current (pack per day) - Reported 0.5 [facility] Start: 07-24-2016 End: 06-12-2024 Tobacco use and exposure User of smokeless tobacco [facility] End: 09-07-2024 History of tobacco use Chews Tobacco [facility] Start: 11-01-2021 End: 02-09-2025 Alcohol intake Current drinker of alcohol (finding) [facility] Start: 12-01-2019 End: 11-05-2022 History SDOH Alcohol Frequency 2 [facility] Start: 12-01-2019 End: 11-05-2022 History SDOH Alcohol Std Drinks 5 [facility] Start: 06-26-2016 History SDOH Alcohol Comment Binge drinking at times, worse with stress. [facility] Start: 12-01-2019 End: 11-05-2022 History SDOH Social Connections Phone 4 [facility] Start: 12-01-2019 End: 11-05-2022 History SDOH Social Connections Get Together 1 [facility] Start: 12-01-2019 End: 11-05-2022 History SDOH Social Connections [employer] 3 [facility] Start: 12-01-2019 Education 21 [facility] Start: 04-02-2014 End: 06-05-2022 Tobacco Comment Very few, very infrequently. Father smoked in childhood home. [facility] Start: 1965 Sex Assigned At Male [facility] Start: 11-08-2021 End: 10-14-2023 Tobacco smoking status KYIS Unknown if ever smoked [facility] Start: 05-31-2019 Occasional [facility] Start: 05-31-2019 With Family [facility] Start: 10-28-2021 End: 02-20-2022 Exposure to SARS-CoV-2 (event) Not sure [facility] Start: 02-20-2022 End: 11-05-2022 History SDOH Alcohol Frequency 98 [facility] Start: 12-30-1983 End: 05-30-2014 History of tobacco use Cigarette Smoker [facility] Start: 05-26-2022 End: 06-05-2022 Exposure to SARS-CoV-2 (event) Yes [facility] Start: 03-14-2017 Marijuana [facility] Start: 03-14-2017 Non-smoker [facility] Start: 11-05-2022 End: 11-22-2022 Social connection and isolation panel [facility] Do you belong to any clubs or organizations such as caodaism groups, unions, fraternal or athletic groups, or school groups? No [facility] Are you now , , , , never or living with a partner? Refused [facility] How often to you hav e a drink containing alcohol? 4 or more times a week [facility] How many standard dr inks containing alcohol do you have on a typical day? 3 or 4 [facility] How often do you hav e 6 or more drinks on 1 occasion? Weekly [facility] How hard is it for y ou to pay for the very basics like food, housing, medical care, and heating Not very hard [facility] Adult Depression Screening Assessment 2 [facility] Do you feel stress - tense, restless, nervous, or anxious, or unable to sleep at night because your mind is troubled all the time - these days [OSQ] Rather much [facility] (I/We) worried wheth er (my/our) food would run out before (I/we) got money to buy more. Sometimes true [facility] Start: 10-24-2018 Gender identity Identifies as male gender (finding) [facility] Start: 10-24-2018 Sexual orientation Heterosexual (finding) [facility] Are you now , , , , never or living with a partner? [facility] How hard is it for y ou to pay for the very basics like food, housing, medical care, and heating Hard [facility] (I/We) worried wheth er (my/our) food would run out before (I/we) got money to buy more. Never true [facility] How often to you hav e a drink containing alcohol? 2-4 times a month [facility] How often do you hav e 6 or more drinks on 1 occasion? Monthly [facility] How hard is it for y ou to pay for the very basics like food, housing, medical care, and heating Very hard [facility] Do you feel stress - tense, restless, nervous, or anxious, or unable to sleep at night because your mind is troubled all the time - these days [OSQ] Very much [facility] Start: 09-28-2024 Tobacco use and exposure Former smokeless tobacco user [facility] Goals Date Patient Goal Desired Activity /State Functional Status Date Assessment Result Facility 05-16-2023 Functional status Amb[facility] Work Phone: 02-26-2015 Are you deaf, or do you have serious difficulty hearing No 02/26/2015 2:13 PM Nicole Harley LPN No [facility] 02-26-2015 Are you blind, or do you have serious difficulty seeing, even when wearing glasses No 02/26/2015 2:13 PM Nicole Harley LPN No [facility] 02-26-2015 Do you have serious difficulty walking or climbing stairs No 02/26/2015 2:13 PM Nicole Harley LPN No [facility] 02-26-2015 Do you have difficul ty dressing or bathing No 02/26/2015 2:13 PM Nicole Harley LPN No [facility] 02-26-2015 Because of a physica l, mental, or emotional condition, do you have difficulty doing errands alone such as visiting a physician's office or shopping No 02/26/2015 2:13 PM EDNicole Daniel LPN No [facility] Mental Status Date Assessment Result Facility 05-16-2023 Cognitive function Voice/Name [facility] Work Phone: 01-02-2023 Cognitive function Voice/Name [facility] Work Phone: 11-08-2021 Cognitive function Level Of Cons ciousness Awake;Alert;Appropriate;Fol lows Commands [facility] Work Phone: 02-26-2015 Because of a physica l, mental, or emotional condition, do you have serious difficulty concentrating, remembering, or making decisions No 02/26/2015 2:13 PM EDT Nicole Anglin LPN No [facility] Clinical Notes 11-01-2021 to 02-09-2025 Gary Hutton PA - 02/09/2025 2:32 PM EDTTelephone Encounter - Sheela Carrlilo RN - 02/01/2025 2:38 PM EDTTelephone Encounter - Sheela Carrillo RN - 02/01/2025 2:38 PM EDTPatient Instructions Note Date & Type Note Facility 02-09-2025 Note HNO ID: [id number] Author: GARY HUTTON PA Service: ? Author Type: Physician Granulating Blender Type: Progress Notes Filed: 02/09/2025 14:34 Note Text: URGENT CARE [facility] Bethany Montalvo is a 59 year old male. Patient presents with: Flu Like Symptoms: Upset stomach, dizzy and nausea, diarrhea x 3 days HPI Flu-Like Symptoms: - Onset a few days ago. - Congestion and cough, especially when lying down. - Roommate experiencing similar symptoms since Saturday. - Denies fever. Diarrhea: - 3 episodes today; initially black liquid yesterday, returning to normal color today. - No hematochezia noted today. - No recent use of Pepto-Bismol. - Taking xavv-zxm-drcygxo cold and flu medication. - Vomiting early Saturday morning; none yesterday or today. - Denies eating anything out of the ordinary recently. - Reports dizziness. Abdominal Pain: - Describes abdomen as feeling tossed and turned. - No appetite. - History of stomach ulcers; takes Pepcid 20 mg daily. - Scheduled for a colonoscopy next month; missed previous appointment 3 months ago. - History of diverticulitis. - Taking aspirin. Review of Systems Constitutional: (+) malaise, (+) dehydration, (-) fever Ears/Nose/Mouth/Throat: (+) nasal congestion Respiratory: (+) cough Gastrointestinal: (+) diarrhea, (+) black stool, (+) abdominal pain, (+) decreased appetite, (-) vomiting Neurological: (+) dizziness Objective BP 122/78 Pulse 77 Temp 37 ?C (98.6 ?F) (Tympanic) Resp 16 Wt 96.3 kg (212 lb 4.9 oz) SpO2 98% BMI 30.46 kg/m? Physical Exam Vitals and nursing note reviewed. Constitutional: General: He is not in acute distress. Appearance: Normal appearance. He is not toxic-appearing. HENT: Mouth/Throat: Mouth: Mucous membranes are moist. Cardiovascular: Rate and Rhythm: Normal rate and regular rhythm. Pulmonary: Effort: Pulmonary effort is normal. Breath sounds: Normal breath sounds. Abdominal: General: Abdomen is flat. Palpations: Abdomen is soft. Tenderness: There is abdominal tenderness in the left lower quadrant. There is guarding. Skin: General: Skin is warm and dry. Neurological: Mental Status: He is alert. General: No acute distress, oral mucosa dry. Abd: Exquisite tenderness in the left lower quadrant, tenderness in the right lower quadrant and epigastric region. { 1. Diarrhea, unspecified type (R19.7) 2. Lower abdominal pain (R10.30) - Patient presents with multiple episodes of diarrhea, including one with melena, and significant lower abdominal tenderness on examination. - Differential diagnoses include diverticulitis and upper GI bleed, especially given the patient's history of stomach ulcers and current use of aspirin. - Referred to the emergency room for further evaluation, including blood work and abdominal imaging, to rule out serious conditions. and Recording using ambient [employer] software for draft documentation of the visit was discussed with the patient/authorized sales representative rural power; all questions welcomed and answered. Patient/authorized sales representative rural [employer] agreed to proceed Disposition The patient was other (comment) (sent to er). Procedures [facility] 02-09-2025 History of Present illness Narrative [facility]RGENT CARE [facility] Bethany Montalvo is a 59 year old male. Patient presents with: Flu Like Symptoms: Upset stomach, dizzy and nausea, diarrhea x 3 days HPI Flu-Like Symptoms: - Onset a few days ago. - Congestion and cough, especially when lying down. - Roommate experiencing similar symptoms since Saturday. - Denies fever. Diarrhea: - 3 episodes today; initially black liquid yesterday, returning to normal color today. - No hematochezia noted today. - No recent use of Pepto-Bismol. - Taking itgi-ytb-ipcmxbo cold and flu medication. - Vomiting early Saturday morning; none yesterday or today. - Denies eating anything out of the ordinary recently. - Reports dizziness. Abdominal Pain: - Describes abdomen as feeling tossed and turned. - No appetite. - History of stomach ulcers; takes Pepcid 20 mg daily. - Scheduled for a colonoscopy next month; missed previous appointment 3 months ago. - History of diverticulitis. - Taking aspirin. Review of Systems Constitutional: (+) malaise, (+) dehydration, (-) fever Ears/Nose/Mouth/Throat: (+) nasal congestion Respiratory: (+) cough Gastrointestinal: (+) diarrhea, (+) black stool, (+) abdominal pain, (+) decreased appetite, (-) vomiting Neurological: (+) dizziness Objective BP 122/78 Pulse 77 Temp 37 C (98.6 F) (Tympanic) Resp 16 Wt 96.3 kg (212 lb 4.9 oz) SpO2 98% BMI 30.46 kg/m Physical Exam Vitals and nursing note reviewed. Constitutional: General: He is not in acute distress. Appearance: Normal appearance. He is not toxic-appearing. HENT: Mouth/Throat: Mouth: Mucous membranes are moist. Cardiovascular: Rate and Rhythm: Normal rate and regular rhythm. Pulmonary: Effort: Pulmonary effort is normal. Breath sounds: Normal breath sounds. Abdominal: General: Abdomen is flat. Palpations: Abdomen is soft. Tenderness: There is abdominal tenderness in the left lower quadrant. There is guarding. Skin: General: Skin is warm and dry. Neurological: Mental Status: He is alert. General: No acute distress, oral mucosa dry. Abd: Exquisite tenderness in the left lower quadrant, tenderness in the right lower quadrant and epigastric region. { 1. Diarrhea, unspecified type (R19.7) 2. Lower abdominal pain (R10.30) - Patient presents with multiple episodes of diarrhea, including one with melena, and significant lower abdominal tenderness on examination. - Differential diagnoses include diverticulitis and upper GI bleed, especially given the patient's history of stomach ulcers and current use of aspirin. - Referred to the emergency room for further evaluation, including blood work and abdominal imaging, to rule out serious conditions. and Recording using [employer] software for draft documentation of the visit was discussed with the patient/authorized sales representative rural power; all questions welcomed and answered. Patient/authorized sales representative rural power agreed to proceed Disposition The patient was other (comment) (sent to er). Procedures documented in this encounter [facility] 02-01-2025 Telephone encounter Note The patient has been identified by name and date of : Yes Caregiver verified no other encounters exist for this prescription request: Yes Caregiver confirmed with patient/requestor that no other refills are due, in the near future, with this provider at this time: Yes The last office visit in the department: 12/11/2024 Does the patient have a future office visit with this provider/department: Yes 06/14/2025 Requested Prescriptions Pending Prescriptions Disp Refills cyclobenzaprine (FLEXERIL) 10 mg tablet 30 tablet 3 Sig: Take 1 tablet by mouth once daily as needed. Sheela Carrillo RN [facility] 02-01-2025 Miscellaneous Notes The patient has been identified by name and date of : Yes Caregiver verified no other encounters exist for this prescription request: Yes Caregiver confirmed with patient/requestor that no other refills are due, in the near future, with this provider at this time: Yes The last office visit in the department: 12/11/2024 Does the patient have a future office visit with this provider/department: Yes 06/14/2025 Requested Prescriptions Pending Prescriptions Disp Refills cyclobenzaprine (FLEXERIL) 10 mg tablet 30 tablet 3 Sig: Take 1 tablet by mouth once daily as needed. Sheela Carrillo RN documented in this encounter [facility] 01-19-2025 Telephone encounter Note The patient has been identified by name and date of : Yes Caregiver verified no other encounters exist for this prescription request: Yes Caregiver confirmed with patient/requestor that no other refills are due, in the near future, with this provider at this time: Yes The last office visit in the department: 12/11/2024 Does the patient have a future office visit with this provider/department: Yes 06/14/2025 Requested Prescriptions Pending Prescriptions Disp Refills lisinopril (ZESTRIL) 10 mg tablet 30 tablet 1 Sig: Take 1 tablet by mouth once daily. carvedilol (COREG) 25 mg tablet 60 tablet 1 Sig: Take 1 tablet by mouth two times a day. Sheela Carrillo RN [facility] 01-19-2025 Miscellaneous Notes The patient has been identified by name and date of : Yes Caregiver verified no other encounters exist for this prescription request: Yes Caregiver confirmed with patient/requestor that no other refills are due, in the near future, with this provider at this time: Yes The last office visit in the department: 12/11/2024 Does the patient have a future office visit with this provider/department: Yes 06/14/2025 Requested Prescriptions Pending Prescriptions Disp Refills lisinopril (ZESTRIL) 10 mg tablet 30 tablet 1 Sig: Take 1 tablet by mouth once daily. carvedilol (COREG) 25 mg tablet 60 tablet 1 Sig: Take 1 tablet by mouth two times a day. Sheela Carrillo RN documented in this encounter [facility] 12-22-2024 Telephone encounter Note Prescription Refill Information The patient has been identified by name and date of : Yes Caregiver verified no other encounters exist for this prescription request: Yes Caregiver confirmed with patient/requestor that no other refills are due, in the near future, with this provider at this time: Yes The last office visit in the department: 12-11-24 Does the patient have a future office visit with this provider/department: Yes Requested Prescriptions Pending Prescriptions Disp Refills busPIRone (BUSPAR) 7.5 mg tablet 90 tablet 2 Sig: Take 1 tablet by mouth three times a day. Adeline Goss December 22, 2024 9:24 AM [facility] 12-22-2024 Miscellaneous Notes Prescription Refill Information The patient has been identified by name and date of : Yes Caregiver verified no other encounters exist for this prescription request: Yes Caregiver confirmed with patient/requestor that no other refills are due, in the near future, with this provider at this time: Yes The last office visit in the department: 12-11-24 Does the patient have a future office visit with this provider/department: Yes Requested Prescriptions Pending Prescriptions Disp Refills busPIRone (BUSPAR) 7.5 mg tablet 90 tablet 2 Sig: Take 1 tablet by mouth three times a day. Adeline Goss December 22, 2024 9:24 AM documented in this encounter [facility] 12-11-2024 Note HNO ID: [id number] Author: KEREN KWON APRN.DIGITAL SALES MANAGER Service: ? Author Type: Nurse Practitioner Type: Progress Notes Filed: 12/11/2024 16:39 Note Text: This is a 58 year old male who presents today with: Patient presents with: Recheck: Follow up HISTORY OF PRESENT ILLNESS: Bethany Montalvo is a 58 year old male. Patient presents with: Recheck: Follow up Bethany is a 58 years old present with foot pain and knee pain from the fall from June of 2024. Pt tried taking tylenol and ibuprofen with no relief. In the morning the pain gets worse, sometimes the pain wakes the pt up in the morning. States pain 5/10 and describes pain as aching now but in the morning sharp and stabbing. Unable to do Activity of daily living. Describes pain in the medial ankle area and the lateral MCP area. Knee pain Previously had knee pain that started several days after his fall. Suspected gouty in nature. Continues with pain, but no redness, swelling, increased warmth (as previously). HTN: Stable BP. No chest pain. Compliant with medication regimen. CAD: No CP. Depression and Anxiety - pt states he lives with his friend and does not have a home or a job -pt feels hopeless from time to time - pt is on trazodone and buspirone PAST MEDICAL HISTORY: PAST MEDICAL HISTORY Diagnosis Date Alcohol abuse Anxiety and depression 07/09/2016 Bilateral carotid artery stenosis 01/14/2020 40-59% bilateral. Chronic alcohol abuse Chronic insomnia Coronary artery disease due to lipid rich plaque CSF abnormal Current severe episode of major depressive disorder without psychotic features, unspecified whether recurrent (HCC) Essential hypertension GERD (gastroesophageal reflux disease) GERD with esophagitis 01/29/2019 HTN (hypertension) Hypertriglyceridemia Hypomagnesemia Moderate hypertension Renal insufficiency Syncope Tubular adenoma of colon 01/29/2019 PAST SURGICAL HISTORY Procedure Laterality Date COLONOSCOPY FLX DX W/COLLJ SPEC WHEN PFRMD 01/12/2019 Colonoscopy CRANIO/MAXILLO-FACIAL SURGERY 1989 orbital blow out fracture/ [place] ESOPHAGOGASTRODUODENOSCOPY TRANSORAL DIAGNOSTIC 01/12/2019 EGD PTCA SNGL VSSL LC 11/21/2017 JUSTIN left circ TONSILLECTOMY HX TREAT SHOULDERBLADE FRACTURE UPPER GI ENDOSCPY, W/BIOPSY, SNGL OR MULT 01/12/2019 ALLERGIES Sudafed [Pseudoephedrine] MEDICATIONS Current Outpatient Medications Medication Sig magnesium oxide 400 mg magnesium cap Take 1 capsule by mouth three times a day. folic acid 1 mg tablet Take 1 tablet by mouth once daily. lisinopril (ZESTRIL) 10 mg tablet Take 1 tablet by mouth once daily. thiamine (VITAMIN B1) 100 mg tablet Take 1 tablet by mouth once daily. carvedilol (COREG) 25 mg tablet Take 1 tablet by mouth two times a day. cyclobenzaprine (FLEXERIL) 10 mg tablet Take 1 tablet by mouth once daily as needed. busPIRone (BUSPAR) 7.5 mg tablet Take 1 tablet by mouth three times a day. traZODone (DESYREL) 100 mg tablet Take 1 tablet by mouth daily at bedtime. benzocaine-menthol (CEPACOL) 15-3.6 mg lozg Use 1 Lozenge as instructed every 2 hours as needed. atorvastatin (LIPITOR) 40 mg tablet Take 1 tablet by mouth daily at bedtime. aspirin, enteric coated (ECOTRIN LOW STRENGTH) 81 mg EC tablet Take 1 tablet by mouth once daily. omeprazole (PRILOSEC) 20 mg capsule Take 1 capsule by mouth daily before breakfast. 1/2 hr before meal. No current facility-administered medications for this visit. FAMILY HISTORY Problem Relation Age of Onset Psychiatry Mother Heart Mother NM 53 Heart Father NM 51 Colon Cancer Father other (Heart stent) Sister No Known Problems Sister No Known Problems Sister Heart Brother other (Transgender) Brother No Known Problems Brother No Known Problems Maternal Grandmother No Known Problems Maternal Grandfather No Known Problems Paternal Grandmother No Known Problems Paternal Grandfather Social History Tobacco Use Smoking status: Former Current packs/day: 0.00 Average packs/day: 0.5 packs/day for 30.4 years (15.2 ttl pk-yrs) Types: Cigarettes Start date: 12/30/1983 Quit date: 05/30/2014 Years since quittin.5 Smokeless tobacco: Former Types: Chew Quit date: 09/07/2024 Tobacco comments: Very few, very infrequently. Father smoked in childhood home. Vaping Use Vaping status: Former Substances: Nicotine, Flavoring Devices: Disposable Substance Use Topics Alcohol use: Yes Alcohol/week: 12.0 standard drinks of alcohol Types: 12 Cans of Beer (12oz) per week Comment: Binge drinking at times, worse with stress. Drug use: Yes Types: Marijuana Comment: Occassional marijuana, 03/2014. Huffed spray paint and glue briefly, ages 8-9. Whippets in mid to late teens. TO REVIEW OF SYSTEMS PAIN ASSESSMENT: Negative for pain, history of chronic pain, or current treatment for a chronic pain condition. GENERAL: No weight loss, malaise or fe (more content not included)... [facility] 11-24-2024 Telephone encounter Note Prescription Refill Information The patient has been identified by name and date of : Yes Caregiver verified no other encounters exist for this prescription request: Yes Caregiver confirmed with patient/requestor that no other refills are due, in the near future, with this provider at this time: Yes The last office visit in the department: 10-02-24 Does the patient have a future office visit with this provider/department: No Requested Prescriptions Pending Prescriptions Disp Refills magnesium oxide 400 mg magnesium cap 90 capsule 5 Sig: Take 1 capsule by mouth three times a day. folic acid 1 mg tablet 30 tablet 5 Sig: Take 1 tablet by mouth once daily. lisinopril (ZESTRIL) 10 mg tablet 30 tablet 1 Sig: Take 1 tablet by mouth once daily. thiamine (VITAMIN B1) 100 mg tablet 30 tablet 5 Sig: Take 1 tablet by mouth once daily. carvedilol (COREG) 25 mg tablet 60 tablet 1 Sig: Take 1 tablet by mouth two times a day. Adeline Goss November 24, 2024 9:09 AM [facility] 11-24-2024 Miscellaneous Notes Prescription Refill Information The patient has been identified by name and date of : Yes Caregiver verified no other encounters exist for this prescription request: Yes Caregiver confirmed with patient/requestor that no other refills are due, in the near future, with this provider at this time: Yes The last office visit in the department: 10-02-24 Does the patient have a future office visit with this provider/department: No Requested Prescriptions Pending Prescriptions Disp Refills magnesium oxide 400 mg magnesium cap 90 capsule 5 Sig: Take 1 capsule by mouth three times a day. folic acid 1 mg tablet 30 tablet 5 Sig: Take 1 tablet by mouth once daily. lisinopril (ZESTRIL) 10 mg tablet 30 tablet 1 Sig: Take 1 tablet by mouth once daily. thiamine (VITAMIN B1) 100 mg tablet 30 tablet 5 Sig: Take 1 tablet by mouth once daily. carvedilol (COREG) 25 mg tablet 60 tablet 1 Sig: Take 1 tablet by mouth two times a day. Adeline Love [facility] November 24, 2024 9:09 AM documented in this encounter [facility] 10-07-2024 Note HNO ID: [id number] Author: JUAREZ HERNÁNDEZ, DO Service: ? Author Type: Physician Type: Progress Notes Filed: 10/07/2024 14:09 Note Text: SERVICE DATE: October 07, 2024 PCP: Keren Kwon APRN.DIGITAL SALES MANAGER Subjective Patient ID: Bethany is a 58 year old male. Chief Complaint: Patient presents with: Right elbow pain PAIN EVALUATION 10/04/2024 1227 10/05/2024 1721 Pain Level: 7 7 Pain Location: Elbow-Right Elbow-Right Description: Aching;Burning;Sharp;Sore Aching;Burning;Sharp;Sore Duration Amount of Time: 3 3 Duration Units: Months Months Frequency: Intermittent Intermittent Intervention/Comfort measure: Medication;Relaxation;Support surface Medication;Relaxation;Support surface HPI Patient presents today with right medial elbow pain x 3 months. He states he hit his elbow on a piece of stainless steel several months ago since that time he has been having pain along the medial aspect of the elbow. 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 Chronic alcohol abuse Chronic insomnia Coronary artery disease due to lipid rich plaque CSF abnormal Current severe episode of major depressive disorder without psychotic features, unspecified whether recurrent (HCC) Essential hypertension GERD (gastroesophageal reflux disease) GERD with esophagitis 01/29/2019 HTN (hypertension) Hypertriglyceridemia Hypomagnesemia Moderate hypertension Renal insufficiency Syncope Tubular adenoma of colon 01/29/2019 PAST SURGICAL HISTORY Procedure Laterality Date COLONOSCOPY FLX DX W/COLLJ SPEC WHEN PFRMD 01/12/2019 Colonoscopy CRANIO/MAXILLO-FACIAL SURGERY 1989 orbital blow out fracture/ [place] ESOPHAGOGASTRODUODENOSCOPY TRANSORAL DIAGNOSTIC 01/12/2019 EGD PTCA SNGL VSSL LC 11/21/2017 JUSTIN left circ TONSILLECTOMY HX TREAT SHOULDERBLADE FRACTURE UPPER GI ENDOSCPY, W/BIOPSY, SNGL OR MULT 01/12/2019 FAMILY HISTORY Problem Relation Age of Onset Psychiatry Mother Heart Mother NM 53 Heart Father NM 51 Colon Cancer Father other (Heart stent) Sister No Known Problems Sister No Known Problems Sister Heart Brother other (Transgender) Brother No Known Problems Brother No Known Problems Maternal Grandmother No Known Problems Maternal Grandfather No Known Problems Paternal Grandmother No Known Problems Paternal Grandfather Social History Tobacco Use Smoking status: Former Current packs/day: 0.00 Average packs/day: 0.5 packs/day for 30.4 years (15.2 ttl pk-yrs) Types: Cigarettes Start date: 12/30/1983 Quit date: 05/30/2014 Years since quittin.3 Smokeless tobacco: Former Types: Chew Quit date: 09/07/2024 Tobacco comments: Very few, very infrequently. Father smoked in childhood home. Vaping Use Vaping status: Former Substances: Nicotine, Flavoring Devices: Disposable Substance Use Topics Alcohol use: Yes Alcohol/week: 12.0 standard drinks of alcohol Types: 12 Cans of Beer (12oz) per week Comment: Binge drinking at times, worse with stress. Drug use: Yes Types: Marijuana Comment: Occassional marijuana, 03/2014. Huffed spray paint and glue briefly, ages 8-9. Whippets in mid to late teens. TO ALLERGIES Allergen Reactions Sudafed [Pseudoephe* Other: See Comments Prostate infection MEDICATIONS: cyclobenzaprine (FLEXERIL) 10 mg tablet Take 1 tablet by mouth once daily as needed. carvedilol (COREG) 25 mg tablet Take 1 tablet by mouth two times a day. lisinopril (ZESTRIL) 10 mg tablet Take 1 tablet by mouth once daily. busPIRone (BUSPAR) 7.5 mg tablet Take 1 tablet by mouth three times a day. traZODone (DESYREL) 100 mg tablet Take 1 tablet by mouth daily at bedtime. benzocaine-menthol (CEPACOL) 15-3.6 mg lozg Use 1 Lozenge as instructed every 2 hours as needed. atorvastatin (LIPITOR) 40 mg tablet Take 1 tablet by mouth daily at bedtime. aspirin, enteric coated (ECOTRIN LOW STRENGTH) 81 mg EC tablet Take 1 tablet by mouth once daily. omeprazole (PRILOSEC) 20 mg capsule Take 1 capsule by mouth daily before breakfast. 1/2 hr before meal. magnesium oxide 400 mg magnesium cap Take 1 capsule by mouth three times a day. thiamine (VITAMIN B1) 100 mg tablet Take 1 tablet by mouth once daily. folic acid 1 mg tablet Take 1 tablet by mouth once daily. Allergies, medications, past surgical history, family history and past medical (more content not included)... [facility] 10-07-2024 History of Present illness Narrative Associated Order(s): Additional Injections Post-Procedure Diagnose(s): Medial epicondylitis, right elbow Images from the original note were not included. SERVICE DATE: October 07, 2024 PCP: Keren Kwon APRN.DIGITAL SALES MANAGER Subjective Patient ID: Bethany is a 58 year old male. Chief Complaint: Patient presents with: Right elbow pain PAIN EVALUATION 10/04/2024 1227 10/05/2024 1721 Pain Level: 7 7 Pain Location: Elbow-Right Elbow-Right Description: Aching;Burning;Sharp;Sore Aching;Burning;Sharp;Sore Duration Amount of Time: 3 3 Duration Units: Months Months Frequency: Intermittent Intermittent Intervention/Comfort measure: Medication;Relaxation;Support surface Medication;Relaxation;Support surface HPI Patient presents today with right medial elbow pain x 3 months. He states he hit his elbow on a piece of stainless steel several months ago since that time he has been having pain along the medial aspect of the elbow. 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 Chronic alcohol abuse Chronic insomnia Coronary artery disease due to lipid rich plaque CSF abnormal Current severe episode of major depressive disorder without psychotic features, unspecified whether recurrent (HCC) Essential hypertension GERD (gastroesophageal reflux disease) GERD with esophagitis 01/29/2019 HTN (hypertension) Hypertriglyceridemia Hypomagnesemia Moderate hypertension Renal insufficiency Syncope Tubular adenoma of colon 01/29/2019 PAST SURGICAL HISTORY Procedure Laterality Date COLONOSCOPY FLX DX W/COLLJ SPEC WHEN PFRMD 01/12/2019 Colonoscopy CRANIO/MAXILLO-FACIAL SURGERY 1989 orbital blow out fracture/ [place] ESOPHAGOGASTRODUODENOSCOPY TRANSORAL DIAGNOSTIC 01/12/2019 EGD PTCA SNGL VSSL LC 11/21/2017 JUSTIN left circ TONSILLECTOMY HX TREAT SHOULDERBLADE FRACTURE UPPER GI ENDOSCPY, W/BIOPSY, SNGL OR MULT 01/12/2019 FAMILY HISTORY Problem Relation Age of Onset Psychiatry Mother Heart Mother NM 53 Heart Father NM 51 Colon Cancer Father other (Heart stent) Sister No Known Problems Sister No Known Problems Sister Heart Brother other (Transgender) Brother No Known Problems Brother No Known Problems Maternal Grandmother No Known Problems Maternal Grandfather No Known Problems Paternal Grandmother No Known Problems Paternal Grandfather Social History Tobacco Use Smoking status: Former Current packs/day: 0.00 Average packs/day: 0.5 packs/day for 30.4 years (15.2 ttl pk-yrs) Types: Cigarettes Start date: 12/30/1983 Quit date: 05/30/2014 Years since quittin.3 Smokeless tobacco: Former Types: Chew Quit date: 09/07/2024 Tobacco comments: Very few, very infrequently. Father smoked in childhood home. Vaping Use Vaping status: Former Substances: Nicotine, Flavoring Devices: Disposable Substance Use Topics Alcohol use: Yes Alcohol/week: 12.0 standard drinks of alcohol Types: 12 Cans of Beer (12oz) per week Comment: Binge drinking at times, worse with stress. Drug use: Yes Types: Marijuana Comment: Occassional marijuana, 03/2014. Huffed spray paint and glue briefly, ages 7-9. Whippets in mid to late teens. TO ALLERGIES Allergen Reactions Sudafed [Pseudoephe* Other: See Comments Prostate infection MEDICATIONS: cyclobenzaprine (FLEXERIL) 10 mg tablet Take 1 tablet by mouth once daily as needed. carvedilol (COREG) 25 mg tablet Take 1 tablet by mouth two times a day. lisinopril (ZESTRIL) 10 mg tablet Take 1 tablet by mouth once daily. busPIRone (BUSPAR) 7.5 mg tablet Take 1 tablet by mouth three times a day. traZODone (DESYREL) 100 mg tablet Take 1 tablet by mouth daily at bedtime. benzocaine-menthol (CEPACOL) 15-3.6 mg lozg Use 1 Lozenge as instructed every 2 hours as needed. atorvastatin (LIPITOR) 40 mg tablet Take 1 tablet by mouth daily at bedtime. aspirin, enteric coated (ECOTRIN LOW STRENGTH) 81 mg EC tablet Take 1 tablet by mouth once daily. omeprazole (PRILOSEC) 20 mg capsule Take 1 capsule by mouth daily before breakfast. 1/2 hr before meal. magnesium oxide 400 mg magnesium cap Take 1 capsule by mouth three times a day. thiamine (VITAMIN B1) 100 mg tablet Take 1 tablet by mouth once daily. folic acid 1 mg tablet Take 1 tablet by mouth once daily. Allergies, medications, past surgical history, family history and past medical history were reviewed per this encounter. Objective Ortho Exam 58-year-old male pleasant and cooperative with exam. Evaluation of the right elbow shows soft tissue swelling over the medial epicondyle with tenderness to palpation as well as with elbow and forearm rotation. Review of x-ray from July 09, 2024 shows no acute abnormality but there are in e on both the medial and lateral epicondyle. Assessment/Plan ASSESSMENT Diagnosis (M77.01) Medial epicondylitis, right elbow (primary encounter diagnosis) (M25.521) Elbow pain, right Plan: CONSULT TO ORTHOPAEDICS Office Visit on 10/07/24 CONSULT TO ORTHOPAEDICS PLAN Discussed options for treatment. Will do a medial epicondyle injection followed by short-term splinting. Additional Injections for medial epicondylitis 10/07/2024 2:03 PM The procedure site was prepped in the usual sterile fashion. Medications: 6 mg betamethasone acetate-betamethasone sodium phosphate 6 mg/mL Anesthetics: 2 mL lidocaine (PF) 10 mg/mL (1 %); 2 mL BUPivacaine (PF) 0.5 % (5 mg/mL) Outcome: tolerated well, no immediate complications Post-injection instructions were reviewed with the patient and the patient voiced understanding of these instructions. Informed Consent Consent Obtained: Verbal [place] Protocol SIGN IN TIME OUT 4 inch x 12 inch fiberglass padded splint applied with Yossi wrap. Patient instructed to keep the splint in place over the next 4 days. He may remove for cleaning. FOLLOW-UP: No follow-ups on file. SIGNATURE: Juarez Hernández DO PATIENT NAME: Bethany Montalvo DATE: October 07, 2024 TIME: 2:01 PM AMB ROOMING INTAKE FLOWSHEET DATA Pain Pain Level: 7 Pain Location: Elbow-Right Description: Aching, Burning, Sharp, Sore Duration Amount of Time: 3 Duration Units: Months Frequency: Intermittent Intervention/Comfort measure: Medication, Relaxation, Support surface Patient here today for right elbow pain off and on since June 2024. He fell and slammed his elbow into a stainless steel work station. He is right hand dominant. Does not work outside the home. X-ray on 07/09/2024. documented in this encounter [facility] 10-07-2024 Note HNO ID: [id number] Author: BETHANY OWENS MA Service: ? Author Type: Cook Larder Type: Progress Notes Filed: 10/07/2024 14:09 Note Text: AMB ROOMING INTAKE FLOWSHEET DATA Pain Pain Level: 7 Pain Location: Elbow-Right Description: Aching, Burning, Sharp, Sore Duration Amount of Time: 3 Duration Units: Months Frequency: Intermittent Intervention/Comfort measure: Medication, Relaxation, Support surface Patient here today for right elbow pain off and on since June 2024. He fell and slammed his elbow into a stainless steel work station. He is right hand dominant. Does not work outside the home. X-ray on 07/09/2024. [facility] 10-02-2024 Telephone encounter Note The patient has been identified by name and date of : Yes Caregiver verified no other encounters exist for this prescription request: Yes Caregiver confirmed with patient/requestor that no other refills are due, in the near future, with this provider at this time: Yes The last office visit in the department: 09/28/2024 Does the patient have a future office visit with this provider/department: Yes 11/02/2024 Requested Prescriptions Pending Prescriptions Disp Refills cyclobenzaprine (FLEXERIL) 10 mg tablet 30 tablet 3 Sig: Take 1 tablet by mouth once daily as needed. Danya Hanna LPN October 02, 2024 9:08 AM [facility] 10-02-2024 Miscellaneous Notes The patient has been identified by name and date of : Yes Caregiver verified no other encounters exist for this prescription request: Yes Caregiver confirmed with patient/requestor that no other refills are due, in the near future, with this provider at this time: Yes The last office visit in the department: 09/28/2024 Does the patient have a future office visit with this provider/department: Yes 11/02/2024 Requested Prescriptions Pending Prescriptions Disp Refills cyclobenzaprine (FLEXERIL) 10 mg tablet 30 tablet 3 Sig: Take 1 tablet by mouth once daily as needed. Danya Hanan LPN October 02, 2024 9:08 AM documented in this encounter [facility] 09-29-2024 Telephone encounter Note Prescription Refill Information The patient has been identified by name and date of : Yes Caregiver verified no other encounters exist for this prescription request: Yes Caregiver confirmed with patient/requestor that no other refills are due, in the near future, with this provider at this time: Yes The last office visit in the department: 09-28-24 Does the patient have a future office visit with this provider/department: Yes Requested Prescriptions Pending Prescriptions Disp Refills carvedilol (COREG) 25 mg tablet 60 tablet 1 Sig: Take 1 tablet by mouth two times a day. lisinopril (ZESTRIL) 10 mg tablet 30 tablet 1 Sig: Take 1 tablet by mouth once daily. Adeline Goss September 29, 2024 8:29 AM [facility] 09-29-2024 Miscellaneous Notes Prescription Refill Information The patient has been identified by name and date of : Yes Caregiver verified no other encounters exist for this prescription request: Yes Caregiver confirmed with patient/requestor that no other refills are due, in the near future, with this provider at this time: Yes The last office visit in the department: 09-28-24 Does the patient have a future office visit with this provider/department: Yes Requested Prescriptions Pending Prescriptions Disp Refills carvedilol (COREG) 25 mg tablet 60 tablet 1 Sig: Take 1 tablet by mouth two times a day. lisinopril (ZESTRIL) 10 mg tablet 30 tablet 1 Sig: Take 1 tablet by mouth once daily. Adeline Goss September 29, 2024 8:29 AM documented in this encounter [facility] 09-28-2024 Instructions Keren Kwon APRN.CHRISTIANA - 09/28/2024 4:10 PM EDT Increase the buspar to 7.5 mg three times daily. Increase the trazodone to 100 mg at bedtime. Schedule with ortho. Keep appt with GI. Recheck in 3 months. documented in this encounter [facility] 09-28-2024 Note HNO ID: [id number] Author: KEREN KWON APRN.CHRISTIANA Service: ? Author Type: Nurse Practitioner Type: Progress Notes Filed: 09/29/2024 13:38 Note Text: This is a 58 year old male who presents today with: Patient presents with: Follow Up: 4 week BP HISTORY OF PRESENT ILLNESS: Bethany Montalvo is a 58 year old male. Patient presents with: Follow Up: 4 week BP Elevated alk phos. Fatty liver. Has appt with [facility] tomorrow. Needs referral to GI faxed. Right elbow pain. Seen in urgent care in June. Started after banged the elbow at work. Had an xray in June, which was normal. Continues with swelling/pain. Right-handed. Anxiety Interested in increasing the buspar. Currently taking 5 mg three times daily as needed. Continues w/ anxiety. Insomnia Trazodone 50 mg does not seem to be working as well for patient any longer. Questioning increase. ETOH Continues to work on cutting back. HTN: BP much improved. No side effects to medication. Tolerating well. Elevated PSA Had appt w/ urology earlier today. PAST MEDICAL HISTORY: PAST MEDICAL HISTORY Diagnosis Date Alcohol abuse Anxiety and depression 07/09/2016 Bilateral carotid artery stenosis 01/14/2020 40-59% bilateral. Chronic alcohol abuse Chronic insomnia Coronary artery disease due to lipid rich plaque CSF abnormal Current severe episode of major depressive disorder without psychotic features, unspecified whether recurrent (HCC) Essential hypertension GERD (gastroesophageal reflux disease) GERD with esophagitis 01/29/2019 HTN (hypertension) Hypertriglyceridemia Hypomagnesemia Moderate hypertension Renal insufficiency Syncope Tubular adenoma of colon 01/29/2019 PAST SURGICAL HISTORY Procedure Laterality Date COLONOSCOPY FLX DX W/COLLJ SPEC WHEN PFRMD 01/12/2019 Colonoscopy CRANIO/MAXILLO-FACIAL SURGERY 1989 orbital blow out fracture/ [place] ESOPHAGOGASTRODUODENOSCOPY TRANSORAL DIAGNOSTIC 01/12/2019 EGD PTCA SNGL VSSL LC 11/21/2017 JUSTIN left circ TONSILLECTOMY HX TREAT SHOULDERBLADE FRACTURE UPPER GI ENDOSCPY, W/BIOPSY, SNGL OR MULT 01/12/2019 ALLERGIES Sudafed [Pseudoephedrine] MEDICATIONS Current Outpatient Medications Medication Sig carvedilol (COREG) 25 mg tablet Take 1 tablet by mouth two times a day. lisinopril (ZESTRIL) 10 mg tablet Take 1 tablet by mouth once daily. busPIRone (BUSPAR) 5 mg tablet Take 1 tablet by mouth three times a day as needed. benzocaine-menthol (CEPACOL) 15-3.6 mg lozg Use 1 Lozenge as instructed every 2 hours as needed. atorvastatin (LIPITOR) 40 mg tablet Take 1 tablet by mouth daily at bedtime. aspirin, enteric coated (ECOTRIN LOW STRENGTH) 81 mg EC tablet Take 1 tablet by mouth once daily. omeprazole (PRILOSEC) 20 mg capsule Take 1 capsule by mouth daily before breakfast. 1/2 hr before meal. magnesium oxide 400 mg magnesium cap Take 1 capsule by mouth three times a day. thiamine (VITAMIN B1) 100 mg tablet Take 1 tablet by mouth once daily. folic acid 1 mg tablet Take 1 tablet by mouth once daily. traZODone (DESYREL) 50 mg tablet Take 1 tablet by mouth at bedtime as needed. cyclobenzaprine (FLEXERIL) 10 mg tablet Take 1 tablet by mouth once daily as needed. No current facility-administered medications for this visit. FAMILY HISTORY Problem Relation Age of Onset Psychiatry Mother Heart Mother NM 53 Heart Father [place] 51 Colon Cancer Father other (Heart stent) Sister No Known Problems Sister No Known Problems Sister Heart Brother other (Transgender) Brother No Known Problems Brother No Known Problems Maternal Grandmother No Known Problems Maternal Grandfather No Known Problems Paternal Grandmother No Known Problems Paternal Grandfather Social History Tobacco Use Smoking status: Former Current packs/day: 0.00 Average packs/day: 0.5 packs/day for 30.4 years (15.2 ttl pk-yrs) Types: Cigarettes Start date: 12/30/1983 Quit date: 05/30/2014 Years since quittin.3 Smokeless tobacco: Former Types: Chew Quit date: 09/07/2024 Tobacco comments: Very few, very infrequently. Father smoked in childhood home. Vaping Use Vaping status: Former Substances: Nicotine, Flavoring Devices: Disposable Substance Use Topics Alcohol use: Yes Alcohol/week: 12.0 standard drinks of alcohol Types: 12 Cans of Beer (12oz) per week Comment: Binge drinking at times, worse with stress. Drug use: Yes Types: Marijuana Comment: Occassional marijuana, 03/2014. Huffed spray paint and glue briefly, ages 8-9. Whippets in mid to late teens. TO EXAM: BP 122/80 Pulse 113 Resp 16 Wt 92.1 kg (203 lb) SpO2 96% BMI 29.13 kg/m? PHYSICAL EXAM: General Appearance: Well appearing, alert, in no acute distress, well-hydrated, well nourished.. Skin: Skin color, texture, turgor normal, no suspicious rashes or lesions. Head: Normocephalic, no masses, lesions, tenderness or abnormalities. (more content not included)... [facility] 09-28-2024 History of Present illness Narrative This is a 58 year old male who presents today with: Patient presents with: Follow Up: 4 week BP HISTORY OF PRESENT ILLNESS: Bethany Montalvo is a 58 year old male. Patient presents with: Follow Up: 4 week BP Elevated alk phos. Fatty liver. Has appt with [facility] tomorrow. Needs referral to GI faxed. Right elbow pain. Seen in urgent care in June. Started after banged the elbow at work. Had an xray in June, which was normal. Continues with swelling/pain. Right-handed. Anxiety Interested in increasing the buspar. Currently taking 5 mg three times daily as needed. Continues w/ anxiety. Insomnia Trazodone 50 mg does not seem to be working as well for patient any longer. Questioning increase. ETOH Continues to work on cutting back. HTN: BP much improved. No side effects to medication. Tolerating well. Elevated PSA Had appt w/ urology earlier today. PAST MEDICAL HISTORY: PAST MEDICAL HISTORY Diagnosis Date Alcohol abuse Anxiety and depression 07/09/2016 Bilateral carotid artery stenosis 01/14/2020 40-59% bilateral. Chronic alcohol abuse Chronic insomnia Coronary artery disease due to lipid rich plaque CSF abnormal Current severe episode of major depressive disorder without psychotic features, unspecified whether recurrent (HCC) Essential hypertension GERD (gastroesophageal reflux disease) GERD with esophagitis 01/29/2019 HTN (hypertension) Hypertriglyceridemia Hypomagnesemia Moderate hypertension Renal insufficiency Syncope Tubular adenoma of colon 01/29/2019 PAST SURGICAL HISTORY Procedure Laterality Date COLONOSCOPY FLX DX W/COLLJ SPEC WHEN PFRMD 01/12/2019 Colonoscopy CRANIO/MAXILLO-FACIAL SURGERY 1989 orbital blow out fracture/ [place] ESOPHAGOGASTRODUODENOSCOPY TRANSORAL DIAGNOSTIC 01/12/2019 EGD PTCA SNGL VSSL LC 11/21/2017 JUSTIN left circ TONSILLECTOMY HX TREAT SHOULDERBLADE FRACTURE UPPER GI ENDOSCPY, W/BIOPSY, SNGL OR MULT 01/12/2019 ALLERGIES Sudafed [Pseudoephedrine] MEDICATIONS Current Outpatient Medications Medication Sig carvedilol (COREG) 25 mg tablet Take 1 tablet by mouth two times a day. lisinopril (ZESTRIL) 10 mg tablet Take 1 tablet by mouth once daily. busPIRone (BUSPAR) 5 mg tablet Take 1 tablet by mouth three times a day as needed. benzocaine-menthol (CEPACOL) 15-3.6 mg lozg Use 1 Lozenge as instructed every 2 hours as needed. atorvastatin (LIPITOR) 40 mg tablet Take 1 tablet by mouth daily at bedtime. aspirin, enteric coated (ECOTRIN LOW STRENGTH) 81 mg EC tablet Take 1 tablet by mouth once daily. omeprazole (PRILOSEC) 20 mg capsule Take 1 capsule by mouth daily before breakfast. 1/2 hr before meal. magnesium oxide 400 mg magnesium cap Take 1 capsule by mouth three times a day. thiamine (VITAMIN B1) 100 mg tablet Take 1 tablet by mouth once daily. folic acid 1 mg tablet Take 1 tablet by mouth once daily. traZODone (DESYREL) 50 mg tablet Take 1 tablet by mouth at bedtime as needed. cyclobenzaprine (FLEXERIL) 10 mg tablet Take 1 tablet by mouth once daily as needed. No current facility-administered medications for this visit. FAMILY HISTORY Problem Relation Age of Onset Psychiatry Mother Heart Mother NM 53 Heart Father NM 51 Colon Cancer Father other (Heart stent) Sister No Known Problems Sister No Known Problems Sister Heart Brother other (Transgender) Brother No Known Problems Brother No Known Problems Maternal Grandmother No Known Problems Maternal Grandfather No Known Problems Paternal Grandmother No Known Problems Paternal Grandfather Social History Tobacco Use Smoking status: Former Current packs/day: 0.00 Average packs/day: 0.5 packs/day for 30.4 years (15.2 ttl pk-yrs) Types: Cigarettes Start date: 12/30/1983 Quit date: 05/30/2014 Years since quittin.3 Smokeless tobacco: Former Types: Chew Quit date: 09/07/2024 Tobacco comments: Very few, very infrequently. Father smoked in childhood home. Vaping Use Vaping status: Former Substances: Nicotine, Flavoring Devices: Disposable Substance Use Topics Alcohol use: Yes Alcohol/week: 12.0 standard drinks of alcohol Types: 12 Cans of Beer (12oz) per week Comment: Binge drinking at times, worse with stress. Drug use: Yes Types: Marijuana Comment: Occassional marijuana, 03/2014. Huffed spray paint and glue briefly, ages 7-9. Whippets in mid to late teens. TO EXAM: BP 122/80 Pulse 113 Resp 16 Wt 92.1 kg (203 lb) SpO2 96% BMI 29.13 kg/m PHYSICAL EXAM: General Appearance: Well appearing, alert, in no acute distress, well-hydrated, well nourished.. Skin: Skin color, texture, turgor normal, no suspicious rashes or lesions. Head: Normocephalic, no masses, lesions, tenderness or abnormalities. Eyes: Anicteric sclera. Extraocular movements are intact. . Neck: Supple, no adenopathy; thyroid symmetric, normal size, no bruits. Lungs: Lungs clear to auscultation. No wheezing, rhonchi, rales.. Heart: RRR without murmur, gallop, or rubs. No ectopy. Extremities: No deformities, edema, skin discoloration, clubbing or cyanosis. Good capillary refill. Swelling and tenderness at the right medial epicondyle. Discomfort with supination/pronation. Neurologic: Gait normal. ASSESSMENT/PLAN: 1. Hypertension, essential - ICD9: 401.9, ICD10: I10 (primary diagnosis) - Controlled Much improved. - Continue current medications - Recommend home blood pressure monitoring, to bring results to next visit - Encouraged sodium restriction, DASH or Mediterranean diet - Recommend regular aerobic exercise 2. Elbow pain, right - ICD9: 719.42, ICD10: M25.521 - CONSULT TO ORTHOPAEDICS 3. Alcohol abuse - ICD9: 305.00, ICD10: F10.10 Continue on decreasing intake. 4. Hepatosplenomegaly - ICD9: 571.8, ICD10: R16.2 Has appt w/ GI 09/29. 5. Hypertension, unspecified type - ICD9: 401.9, ICD10: I10 - Controlled - Continue current medications - Recommend home blood pressure monitoring, to bring results to next visit - Encouraged sodium restriction, DASH or Mediterranean diet - Recommend regular aerobic exercise 6. Elevated PSA - ICD9: 790.93, ICD10: R97.20 Continue per urology. 7. Anxiety and depression - ICD9: 300.00, 311, ICD10: F41.9, F32.A Increase: - BUSPIRONE 7.5 MG TABLET 8. Chronic insomnia - ICD9: 780.52, ICD10: F51.04 Increase: - TRAZODONE 100 MG TABLET Discussed treatment plan and patient voices understanding. Patient's questions answered appropriately. Medications and potential side effects were discussed and patient voices understanding. Return to the office as scheduled or as needed for worsening/no improvement. Keren Kwon APRN.CNP The patient indicates understanding of these issues and agrees with the plan. documented in this encounter [facility] 09-28-2024 History of Present illness Narrative Images from the original note were not included. [facility] PSA/PROSTATE EVALUATION HISTORY AND PHYSICAL EXAM PATIENT: Bethany Montalvo (58 year old) PCP: Keren Kwon APRN.CNP REFERRING Provider: Keren Kwon APRN.C* Consultation requested by Dr. Keren Kwon [id number] [facility] [id number] for an opinion regarding Elevated PSA and my final recommendations will be communicated back to the requesting physician by way of shared Medical record or letter via US mail. CC: Elevated PSA HPI: The patient is 58 year old and is referred for evaluation of elevated PSA. Past Med Hx: ETOH abuse, HTN, HLD, GERD, NSTEMI, CAD Recent PSA elevation was noted to be 4.05 ng/mL. Free PSA of 10%. Prior studies include PSA of 4.82 in 2024 No prior Bx or MRI of prostate Family Hx: Renal Cancers: None Bladder Cancer: None Prostate cancer: None PRESENTING HISTORY: Hematuria: none Obstructive voiding symptoms: weak stream and incomplete emptying. Irritative voiding symptoms: frequency, urgency, and nocturia Urinary retention: no Urinary incontinence: no Urinary tract infection: no Patient Entered Questionnaires: INTERNATIONAL PROSTATE SYMPTOM SCORE (I-PSS) 1)INCOMPLETE EMPTYING Over the past month, how often have you had a sensation of not emptying your bladder completely after you finished urinating? SCORE: 4- More than half the time 2)FREQUENCY Over the past month, how often have you had to urinate again less than two hours after you finished urinating? SCORE: 4- More than half the time 3)INTERMITTENCY Over the past month, how often have you found you stopped and started again several times when you urinated? SCORE: 4- More than half the time 4)URGENCY Over the past month, how often have you found it difficult to postpone urination? SCORE: 4- More than half the time 5)WEAK STREAM Over the past month, how often have you had a weak stream? SCORE: 4- More than half the time 6)STRAINING Over the past month, how often have you had to push or strain to begin urination SCORE: 3- About half the time 7)NOCTURIA Over the past month, how many times did you most typically get up to urinate from the time you went to bed at night until the time you get up in the morning? SCORE:2 TOTAL I-PSS SCORE: 25 QUALITY OF LIFE DUE TO URINARY SYMPTOMS If you were to spend the rest of yur life with your urinary condition just the way it is now, how would you feel about that? 3- Mixed- equally satisfied and dissatisfied PROMIS Global Health 06/01/2023 06/10/2024 09/25/2024 PROMIS Global Health Scale Physical Health Percentile 10 10 7 Mental Health Percentile 3 2 1 Patient-reported Percentiles provide an indication of how the patient's score ranks in relation to the general population. Higher percentile rankings indicate better function/quality of life. 50th percentile is the average of the general population and indicates half of respondents had a worse score. MEDICATIONS: Current Outpatient Medications Medication Sig carvedilol (COREG) 25 mg tablet Take 1 tablet by mouth two times a day. lisinopril (ZESTRIL) 10 mg tablet Take 1 tablet by mouth once daily. busPIRone (BUSPAR) 5 mg tablet Take 1 tablet by mouth three times a day as needed. atorvastatin (LIPITOR) 40 mg tablet Take 1 tablet by mouth daily at bedtime. aspirin, enteric coated (ECOTRIN LOW STRENGTH) 81 mg EC tablet Take 1 tablet by mouth once daily. omeprazole (PRILOSEC) 20 mg capsule Take 1 capsule by mouth daily before breakfast. 1/2 hr before meal. magnesium oxide 400 mg magnesium cap Take 1 capsule by mouth three times a day. thiamine (VITAMIN B1) 100 mg tablet Take 1 tablet by mouth once daily. folic acid 1 mg tablet Take 1 tablet by mouth once daily. traZODone (DESYREL) 50 mg tablet Take 1 tablet by mouth at bedtime as needed. cyclobenzaprine (FLEXERIL) 10 mg tablet Take 1 tablet by mouth once daily as needed. benzocaine-menthol (CEPACOL) 15-3.6 mg lozg Use 1 Lozenge as instructed every 2 hours as needed. No current facility-administered medications for this visit. HISTORY: PAST MEDICAL HISTORY Diagnosis Date Alcohol abuse Anxiety and depression 07/09/2016 Bilateral carotid artery stenosis 01/14/2020 40-59% bilateral. Chronic alcohol abuse Chronic insomnia Coronary artery disease due to lipid rich plaque CSF abnormal Current severe episode of major depressive disorder without psychotic features, unspecified whether recurrent (HCC) Essential hypertension GERD (gastroesophageal reflux disease) GERD with esophagitis 01/29/2019 HTN (hypertension) Hypertriglyceridemia Hypomagnesemia Moderate hypertension Renal insufficiency Syncope Tubular adenoma of colon 01/29/2019 PAST SURGICAL HISTORY Procedure Laterality Date COLONOSCOPY FLX DX W/COLLJ SPEC WHEN PFRMD 01/12/2019 Colonoscopy CRANIO/MAXILLO-FACIAL SURGERY 1989 orbital blow out fracture/ [place] ESOPHAGOGASTRODUODENOSCOPY TRANSORAL DIAGNOSTIC 01/12/2019 EGD PTCA SNGL VSSL LC 11/21/2017 JUSTIN left circ TONSILLECTOMY HX TREAT SHOULDERBLADE FRACTURE UPPER GI ENDOSCPY, W/BIOPSY, SNGL OR MULT 01/12/2019 FAMILY HISTORY Problem Relation Age of Onset Psychiatry Mother Heart Mother NM 53 Heart Father NM 51 Colon Cancer Father other (Heart stent) Sister No Known Problems Sister No Known Problems Sister Heart Brother other (Transgender) Brother No Known Problems Brother No Known Problems Maternal Grandmother No Known Problems Maternal Grandfather No Known Problems Paternal Grandmother No Known Problems Paternal Grandfather Social History Tobacco Use Smoking status: Former Current packs/day: 0.00 Average packs/day: 0.5 packs/day for 30.4 years (15.2 ttl pk-yrs) Types: Cigarettes Start date: 12/30/1983 Quit date: 05/30/2014 Years since quittin.3 Smokeless tobacco: Current Types: Chew Tobacco comments: Very few, very infrequently. Father smoked in childhood home. Vaping Use Vaping status: Former Substances: Nicotine, Flavoring Devices: Disposable Substance Use Topics Alcohol use: Yes Alcohol/week: 12.0 standard drinks of alcohol Types: 12 Cans of Beer (12oz) per week Comment: Binge drinking at times, worse with stress. Drug use: Yes Types: Marijuana Comment: Occassional marijuana, 03/2014. Huffed spray paint and glue briefly, ages [age]. [facility] in mid to late teens. TO LABS: Latest Ref Rng 09/28/2024 GLUCOSE UA (POCT) Negative mg/dL Negative BILIRUBIN UA (POCT) Negative Negative KETONE UA (POCT) Negative mg/dL Negative SPECIFIC GRAVITY UA (POCT) 1.005 - 1.030 1.025 HEMOGLOBIN/BLOOD UA (POCT) Negative Negative PH UA (POCT) 4.5 - 8.0 5.5 PROTEIN UA (POCT) Negative mg/dL Negative UROBILINOGEN UA (POCT) Normal E.U./dL 0.2 NITRITE UA (POCT) Negative Negative LEUKOCYTES UA (POCT) Negative Negative COLOR UA (POCT) Dark yellow CLARITY UA (POCT) Slightly Cloudy Creatinine Creatinine Date Value Ref Range Status 08/11/2024 1.16 0.73 - 1.22 mg/dL Final 08/05/2024 1.26 (H) 0.73 - 1.22 mg/dL Final 11/05/2022 1.13 0.73 - 1.22 mg/dL Final 11/07/2021 1.48 (H) 0.73 - 1.22 mg/dL Final PSA PSA (ng/mL) Date Value 08/11/2024 4.05 PSA Screening (ng/mL) Date Value 08/05/2024 4.82 OFFICE DATA: POST-VOID RESIDUAL BLADDER VOLUME: YES, 0 cc IMAGING Review of Systems: PAIN ASSESSMENT: CURRENTLY HAVING NO PAIN GENERAL: No weight loss, malaise or fevers GI: No nausea, vomiting MUSCULOSKELETAL: Negative for generalized joint pain SKIN: Negative for rash HEMATOLOGY/LYMPHOLOGY: Negative for swollen nodes All other systems reviewed and noncontributory PHYSICAL EXAMINATION: Participation of a fellow, resident, medical student, or advanced practice provider student in performing the sensitive examination was discussed with the patient or authorized sales representative rural power. The patient or authorized sales representative rural power has agreed to proceed with the sensitive examination. (Sensitive examination includes inspection and/or palpation of the breasts, pelvis, prostate and anorectal regions) VITALS: BP 118/80 (BP Site: Left Arm, BP Position: Sitting, BP Cuff Size: Regular Adult) Pulse 80 Temp 36.1 C (96.9 F) (Temporal) Resp 18 Ht 177.8 cm (5' 10) Wt 91.2 kg (201 lb) SpO2 94% BMI 28.84 kg/m GENERAL: alert, no distress, normal affect RESPIRATORY: normal effort ABDOMEN: soft, non-tender GENITAL: - SCROTUM: no rashes, no edema RECTAL: approximately 50 g prostate, no nodules PELVIC FLOOR: good tone, no tenderness EXTREMITIES: normal SKIN: normal NEUROLOGIC: normal ASSESSMENT and PLAN 1. Elevated PSA - ICD9: 790.93, ICD10: R97.20 (primary diagnosis) 58 year old and is referred for evaluation of elevated PSA. Past Med Hx: ETOH abuse, HTN, HLD, GERD, NSTEMI, CAD Recent PSA elevation was noted to be 4.05 ng/mL. Free PSA of 10%. Prior studies include PSA of 4.82 in 2024 No prior Bx or MRI of prostate Discussed the implications/etiologies of elevated PSA. Discussed possible causes of elevated PSA: including BPH, recent ejaculation, normal aging, prostatitis (infection/inflammation), UTI, Urinary retention and prostate cancer. Talked about approaches which would include surveillance with PSA rechecks at regular intervals, MRI of prostate followed by biopsy, or standard TRUS Bx. After discussing the pros and cons of each approach we decided to proceed with PSA. - UA normal/MAI Normal/No FHX of prostate cancer PVR = 0ml UA neg Free PSA = 10% Plan: - recheck Free PSA - Consider Prostate MRI followed by planned fusion biopsy. - UA DIP, URINE (POC) - POST VOID RESIDUAL - FREE PSA 2. BPH with obstruction/lower urinary tract symptoms - ICD9: 600.01, 599.69, ICD10: N40.1, N13.8 Discussed option trial of Flomax Will reassess at follow up follow up in 1 month - UA DIP, URINE (POC) - POST VOID RESIDUAL 3. ETOH abuse - ICD9: 305.00, ICD10: F10.10 Recommend to decrease ETOH consumption Seek BH therapy. follow up with PCP Chris Devlin DNP, CHRISTIANA Department of Urology [facility] Verified name and date of . CC Post Void Residual HPI: P atient is here now for an appointment with Xavier Perez APRN, DNP Procedure: Explained procedure to patient and verbalizes understanding. Performed a PVR. Patient urinated and instructed to empty bladder as much as possible just prior to having PVR done using bladder ultrasound scanner. Results of scan: 0 mL The patient tolerated the procedure well. Plan: Appointment with Chris. documented in this encounter [facility] 09-28-2024 Note HNO ID: [id number] Author: CHRIS DEVLIN APRN.MARLY VILLEDA Service: ? Author Type: Nurse Practitioner Type: Progress Notes Filed: 09/28/2024 13:06 Note Text: [facility] PSA/PROSTATE EVALUATION HISTORY AND PHYSICAL EXAM PATIENT: Bethany Montalvo (58 year old) PCP: Keren Kwon APRN.DIGITAL SALES MANAGER REFERRING Provider: Keren Kwon APRN.C* Consultation requested by Dr. Keren Kwon [phone] [facility] [id number] for an opinion regarding Elevated PSA and my final recommendations will be communicated back to the requesting physician by way of shared Medical record or letter via US mail. CC: Elevated PSA HPI: The patient is 58 year old and is referred for evaluation of elevated PSA. Past Med Hx: ETOH abuse, HTN, HLD, GERD, NSTEMI, CAD Recent PSA elevation was noted to be 4.05 ng/mL. Free PSA of 10%. Prior studies include PSA of 4.82 in 2024 No prior Bx or MRI of prostate Family Hx: Renal Cancers: None Bladder Cancer: None Prostate cancer: None PRESENTING HISTORY: Hematuria: none Obstructive voiding symptoms: weak stream and incomplete emptying. Irritative voiding symptoms: frequency, urgency, and nocturia Urinary retention: no Urinary incontinence: no Urinary tract infection: no Patient Entered Questionnaires: INTERNATIONAL PROSTATE SYMPTOM SCORE (I-PSS) 1)INCOMPLETE EMPTYING Over the past month, how often have you had a sensation of not emptying your bladder completely after you finished urinating? SCORE: 4- More than half the time 2)FREQUENCY Over the past month, how often have you had to urinate again less than two hours after you finished urinating? SCORE: 4- More than half the time 3)INTERMITTENCY Over the past month, how often have you found you stopped and started again several times when you urinated? SCORE: 4- More than half the time 4)URGENCY Over the past month, how often have you found it difficult to postpone urination? SCORE: 4- More than half the time 5)WEAK STREAM Over the past month, how often have you had a weak stream? SCORE: 4- More than half the time 6)STRAINING Over the past month, how often have you had to push or strain to begin urination SCORE: 3- About half the time 7)NOCTURIA Over the past month, how many times did you most typically get up to urinate from the time you went to bed at night until the time you get up in the morning? SCORE:2 TOTAL I-PSS SCORE: 25 QUALITY OF LIFE DUE TO URINARY SYMPTOMS If you were to spend the rest of yur life with your urinary condition just the way it is now, how would you feel about that? 3- Mixed- equally satisfied and dissatisfied PROMIS Global Health 06/01/2023 06/10/2024 09/25/2024 PROMIS Global Health Scale Physical Health Percentile 10 10 7 Mental Health Percentile 3 2 1 Patient-reported Percentiles provide an indication of how the patient's score ranks in relation to the general population. Higher percentile rankings indicate better function/quality of life. 50th percentile is the average of the general population and indicates half of respondents had a worse score. MEDICATIONS: Current Outpatient Medications Medication Sig carvedilol (COREG) 25 mg tablet Take 1 tablet by mouth two times a day. lisinopril (ZESTRIL) 10 mg tablet Take 1 tablet by mouth once daily. busPIRone (BUSPAR) 5 mg tablet Take 1 tablet by mouth three times a day as needed. atorvastatin (LIPITOR) 40 mg tablet Take 1 tablet by mouth daily at bedtime. aspirin, enteric coated (ECOTRIN LOW STRENGTH) 81 mg EC tablet Take 1 tablet by mouth once daily. omeprazole (PRILOSEC) 20 mg capsule Take 1 capsule by mouth daily before breakfast. 1/2 hr before meal. magnesium oxide 400 mg magnesium cap Take 1 capsule by mouth three times a day. thiamine (VITAMIN B1) 100 mg tablet Take 1 tablet by mouth once daily. folic acid 1 mg tablet Take 1 tablet by mouth once daily. traZODone (DESYREL) 50 mg tablet Take 1 tablet by mouth at bedtime as needed. cyclobenzaprine (FLEXERIL) 10 mg tablet Take 1 tablet by mouth once daily as needed. benzocaine-menthol (CEPACOL) 15-3.6 mg lozg Use 1 Lozenge as instructed every 2 hours as needed. No current facility-administered medications for this visit. HISTORY: PAST MEDICAL HISTORY Diagnosis Date Alcohol abuse Anxiety and depression 07/09/2016 Bilateral carotid artery stenosis 01/14/2020 40-59% bilateral. Chronic alcohol abuse Chronic insomnia Coronary artery disease due to lipid rich plaque CSF abnormal Current severe episode of major depressive disorder without psychotic features, unspecified whether recurrent (HCC) Essential hypertension GERD (gastroesophageal reflux disease) GERD with esophagitis 01/29/2019 HTN (hypertension) Hypertriglyceridemia Hypomagnesemia Moderate hypertension Renal insufficiency Syncope Tubular adenoma of colon 01/29/2019 PAST SURGICAL HISTORY (more content not included)... [facility] 09-28-2024 Instructions Chris Devlin APRN.MARLY VILLEDA - 09/28/2024 12:33 PM EDT Check a Free PSA blood test. No ejaculation or strenuous exercise 48 hours prior to PSA blood test. Will send [facility] message with result Pending PSA results consider MRI of Prostate. follow up in 1 month for urinary symptoms. Discussed the implications/etiologies of elevated PSA. Discussed possible causes of elevated PSA: including BPH, recent ejaculation, normal aging, prostatitis (infection/inflammation), UTI, Urinary retention and prostate cancer. Talked about approaches which would include surveillance with PSA rechecks at regular intervals, MRI of prostate followed by biopsy, or standard TRUS Bx. After discussing the pros and cons of each approach we decided to proceed with PSA BLOOD TEST Preparation for a Prostate-Specific Antigen (PSA) Blood Test The PSA blood test is a routine screening test for prostate cancer. While there is typically no special preparation required, here are some general guidelines to ensure accurate results: 1. Do not have your PSA level checked if you have had a recent urinary tract infection or prostate procedure within the past 30 days. 2. Avoid Sexual Activity: Refrain from ejaculation for 48 hours before the test. This is because sexual activity can temporarily increase PSA levels. 3. Avoid Strenuous Exercise: Avoid vigorous exercise for 24 hours before the test, as it can also raise PSA levels. The PSA blood test is used to screen for prostate cancer. It is not an exact test (because other things can cause the PSA to be high), but the general principle is that the higher the number, the higher the risk of prostate cancer. The lower the number, the lower the risk of prostate cancer. Usually a cut-off of 4 is used. This means that traditionally if a PSA is less than 4, it is normal and if it is higher than 4 it is not normal. Having said that, the [facility] uses a lower cut-off of 2.59, so it the PSA is higher than 2.59, it is flagged as being high in the system. In reality, there is no one value of PSA that is totally protective against prostate cancer. The higher the number, the higher the risk. The lower the number, the lower the risk. Prostate Cancer Risk based off of PSA levels: PSA < or = 1.0 ng/mL 8.8% Risk of prostate cancer on biopsy PSA 1.1 - 2.0 ng/mL 17.0% Risk of prostate cancer on biopsy PSA 2.1 - 3.0 ng/mL 23.9% Risk of prostate cancer on biopsy PSA 3.1 - 4.0 ng/mL 26.9% Risk of prostate cancer on biopsy PSA 4.1 -10.0 ng/mL 47.0% Risk of prostate cancer on biopsy PSA >10.0 ng/mL 58.2% Risk of prostate cancer on biopsy Return to the clinic or seek care at [facility] for any worsening signs or symptoms: such as fevers, chills, worsening pain, gross blood in urine or worsening urinary symptoms. For severe symptoms seek care at the closest ER. Plan of care, medicaiton side effects and management reviewed with patient. Healthy Habits: Recommend regular physical activity, nutrition and healthy eating habits. Consume a variety of foods every day focusing on fruits, vegetables and lean meats). Eat foods low in fat, saturated fat and cholesterol. Eat a limited amount of salt and sodium. Drink adequate amounts of water and limit sugary drinks. Exercise portion control in meal selection. Establish a mindset of a wellness approach to health. Thank you for allowing me to provide your care today. I look forward to seeing you again and maintaining your health. Chris Devlin DNP, CHRISTIANA Department of Urology [facility] documented in this encounter [facility] 09-28-2024 Note HNO ID: [id number] Author: LINDSAY FONSECA LPN Service: ? Author Type: LICENSED NURSE Type: Progress Notes Filed: 09/28/2024 13:06 Note Text: Verified name and date of . CC Post Void Residual HPI: P wilfred is here now for an appointment with Xavier Perez APRN, DNP Procedure: Explained procedure to patient and verbalizes understanding. Performed a PVR. Patient urinated and instructed to empty bladder as much as possible just prior to having PVR done using bladder ultrasound scanner. Results of scan: 0 mL The patient tolerated the procedure well. Plan: Appointment with Chris. [facility] 09-25-2024 Telephone encounter Note Noted. Chris Devlin APRN.MARLY VILLEDA [facility] Work Phone: 09-25-2024 Miscellaneous Notes Noted. Chris Devlin APRN.CNP, DNP Called patient regarding appointment on Saturday due to provider having a meeting between [phone]. Patient offered times to come into clinic and will come in at 1230 for appointment. Lindsay Fonseca LPN documented in this encounter [facility] 09-25-2024 Telephone encounter Note Called patient regarding appointment on Saturday due to provider having a meeting between [phone]. Patient offered times to come into clinic and will come in at 1230 for appointment. Lindsay Fonseca LPN [facility] 08-31-2024 Instructions Keren Kwon APRN.CNP - 08/31/2024 4:16 PM EST Start taking 25mg of Carvedilol Make an appointment with counseling center at [place] Follow up in 4 weeks or sooner as needed documented in this encounter [facility] 08-31-2024 Telephone encounter Note Pt notified of results/provider instructions at [facility] today. Donna Richey LPN [facility] 08-31-2024 Miscellaneous Notes Pt notified of results/provider instructions at [facility] today. Donna Richey LPN Phoned pt, no answer, unable to leave message d/t voicemail not set up yet. Donna Richey LPN Can please let patient know that I received his ultrasound results. It was consistent with fatty liver. However, it also is showing that his liver and spleen are enlarged. I would like to have him see gastroenterology for further evaluation of this. documented in this encounter [facility] 08-31-2024 Note HNO ID: [id number] Author: KEREN KWON APRN.CHRISTIANA Service: ? Author Type: Nurse Practitioner Type: Progress Notes Filed: 08/31/2024 20:46 Note Text: This is a 58 year old male who presents today with: Patient presents with: Recheck: 1 week follow up HISTORY OF PRESENT ILLNESS: Bethany Montalvo is a 58 year old male. Patient presents with: Recheck: 1 week follow up HTN: Patient is compliant with meds Yes Monitors bp at home: No. Denies side effects: sometimes will get lightheaded when standing up. Chest pain: No. Dyspnea: No. Edema: No. Palpitations: No. Syncope: No. Headache: No. Dizziness: No. 4 beers last night ETOH use Considering treatment for alcohol Has been drinking daily Has been dealing with a lot of mental health issues On the verge of homelessness Lost his job recently due to knee pain. Thoughts of not wanting to wake up the next morning Does not have current plans to end his life Denies current SI/HI Currently taking Buspar, sometimes it helps Used to follow with psychiatric at the counseling center at [place] Is interested and agreeable to following with a counselor again at [place]. Left knee pain has been a lot better PAST MEDICAL HISTORY: PAST MEDICAL HISTORY Diagnosis Date Alcohol abuse Anxiety and depression 07/09/2016 Bilateral carotid artery stenosis 01/14/2020 40-59% bilateral. Chronic alcohol abuse Chronic insomnia Coronary artery disease due to lipid rich plaque CSF abnormal GERD (gastroesophageal reflux disease) GERD with esophagitis 01/29/2019 HTN (hypertension) Hypertriglyceridemia Hypomagnesemia Moderate hypertension Renal insufficiency Syncope Tubular adenoma of colon 01/29/2019 PAST SURGICAL HISTORY Procedure Laterality Date COLONOSCOPY FLX DX W/COLLJ SPEC WHEN PFRMD 01/12/2019 Colonoscopy CRANIO/MAXILLO-FACIAL SURGERY 1989 orbital blow out fracture/ [place] ESOPHAGOGASTRODUODENOSCOPY TRANSORAL DIAGNOSTIC 01/12/2019 EGD PTCA SNGL VSSL LC 11/21/2017 JUSTIN left circ TONSILLECTOMY HX TREAT SHOULDERBLADE FRACTURE UPPER GI ENDOSCPY, W/BIOPSY, SNGL OR MULT 01/12/2019 ALLERGIES Sudafed [Pseudoephedrine] MEDICATIONS Current Outpatient Medications Medication Sig carvedilol (COREG) 12.5 mg tablet Take 1 tablet by mouth two times a day. lisinopril (ZESTRIL) 10 mg tablet Take 1 tablet by mouth once daily. predniSONE (DELTASONE) 10 mg tablet Take 4 tabs daily x 3 days, then 3 tabs x 3 days, 2 tabs x 3 days, then 1 tab x3 days with food. busPIRone (BUSPAR) 5 mg tablet Take 1 tablet by mouth three times a day as needed. benzocaine-menthol (CEPACOL) 15-3.6 mg lozg Use 1 Lozenge as instructed every 2 hours as needed. atorvastatin (LIPITOR) 40 mg tablet Take 1 tablet by mouth daily at bedtime. aspirin, enteric coated (ECOTRIN LOW STRENGTH) 81 mg EC tablet Take 1 tablet by mouth once daily. omeprazole (PRILOSEC) 20 mg capsule Take 1 capsule by mouth daily before breakfast. 1/2 hr before meal. magnesium oxide 400 mg magnesium cap Take 1 capsule by mouth three times a day. thiamine (VITAMIN B1) 100 mg tablet Take 1 tablet by mouth once daily. folic acid 1 mg tablet Take 1 tablet by mouth once daily. traZODone (DESYREL) 50 mg tablet Take 1 tablet by mouth at bedtime as needed. cyclobenzaprine (FLEXERIL) 10 mg tablet Take 1 tablet by mouth once daily as needed. No current facility-administered medications for this visit. FAMILY HISTORY Problem Relation Age of Onset Psychiatry Mother Heart Mother NM 53 Heart Father [place] 51 Colon Cancer Father Social History Tobacco Use Smoking status: Former Current packs/day: 0.00 Average packs/day: 0.5 packs/day for 30.4 years (15.2 ttl pk-yrs) Types: Cigarettes Start date: 12/30/1983 Quit date: 05/30/2014 Years since quittin.2 Smokeless tobacco: Current Types: Chew Tobacco comments: Very few, very infrequently. Father smoked in childhood home. Vaping Use Vaping status: Never Used Substance Use Topics Alcohol use: Yes Alcohol/week: 84.0 standard drinks of alcohol Types: 84 Cans of Beer (12oz) per week Comment: Binge drinking at times, worse with stress. Drug use: Yes Types: Marijuana Comment: Occassional marijuana, 03/2014. Huffed spray paint and glue briefly, ages 8-9. [employer] in mid to late teens. TO REVIEW OF SYSTEMS PAIN ASSESSMENT: Negative for pain, history of chronic pain, or current treatment for a chronic pain condition. GENERAL: No weight loss, malaise or fevers HEENT: Negative for frequent or significant headaches, No changes in hearing or vision, no nose bleeds or other nasal problems RESPIRATORY: Negative for cough, hemoptysis, wheezing, COPD, dyspnea or shortness of breath CARDIOVASCULAR: Negative for chest pain, leg swelling, hypertension, CHF or palpitations GI: No nausea, vomiting, or diarrhea : No history of dysuria, frequency or incontinence All other reviewed and negativ (more content not included)... [facility] 08-31-2024 History of Present illness Narrative This is a 58 year old male who presents today with: Patient presents with: Recheck: 1 week follow up HISTORY OF PRESENT ILLNESS: Bethany Marshall Selvin is a 58 year old male. Patient presents with: Recheck: 1 week follow up HTN: Patient is compliant with meds Yes Monitors bp at home: No. Denies side effects: sometimes will get lightheaded when standing up. Chest pain: No. Dyspnea: No. Edema: No. Palpitations: No. Syncope: No. Headache: No. Dizziness: No. 4 beers last night ETOH use Considering treatment for alcohol Has been drinking daily Has been dealing with a lot of mental health issues On the verge of homelessness Lost his job recently due to knee pain. Thoughts of not wanting to wake up the next morning Does not have current plans to end his life Denies current SI/HI Currently taking Buspar, sometimes it helps Used to follow with psychiatric at the counseling center at [place] Is interested and agreeable to following with a counselor again at [place]. Left knee pain has been a lot better PAST MEDICAL HISTORY: PAST MEDICAL HISTORY Diagnosis Date Alcohol abuse Anxiety and depression 07/09/2016 Bilateral carotid artery stenosis 01/14/2020 40-59% bilateral. Chronic alcohol abuse Chronic insomnia Coronary artery disease due to lipid rich plaque CSF abnormal GERD (gastroesophageal reflux disease) GERD with esophagitis 01/29/2019 HTN (hypertension) Hypertriglyceridemia Hypomagnesemia Moderate hypertension Renal insufficiency Syncope Tubular adenoma of colon 01/29/2019 PAST SURGICAL HISTORY Procedure Laterality Date COLONOSCOPY FLX DX W/COLLJ SPEC WHEN PFRMD 01/12/2019 Colonoscopy CRANIO/MAXILLO-FACIAL SURGERY 1989 orbital blow out fracture/ [place] ESOPHAGOGASTRODUODENOSCOPY TRANSORAL DIAGNOSTIC 01/12/2019 EGD PTCA SNGL VSSL LC 11/21/2017 JUSTIN left circ TONSILLECTOMY HX TREAT SHOULDERBLADE FRACTURE UPPER GI ENDOSCPY, W/BIOPSY, SNGL OR MULT 01/12/2019 ALLERGIES Sudafed [Pseudoephedrine] MEDICATIONS Current Outpatient Medications Medication Sig carvedilol (COREG) 12.5 mg tablet Take 1 tablet by mouth two times a day. lisinopril (ZESTRIL) 10 mg tablet Take 1 tablet by mouth once daily. predniSONE (DELTASONE) 10 mg tablet Take 4 tabs daily x 3 days, then 3 tabs x 3 days, 2 tabs x 3 days, then 1 tab x3 days with food. busPIRone (BUSPAR) 5 mg tablet Take 1 tablet by mouth three times a day as needed. benzocaine-menthol (CEPACOL) 15-3.6 mg lozg Use 1 Lozenge as instructed every 2 hours as needed. atorvastatin (LIPITOR) 40 mg tablet Take 1 tablet by mouth daily at bedtime. aspirin, enteric coated (ECOTRIN LOW STRENGTH) 81 mg EC tablet Take 1 tablet by mouth once daily. omeprazole (PRILOSEC) 20 mg capsule Take 1 capsule by mouth daily before breakfast. 1/2 hr before meal. magnesium oxide 400 mg magnesium cap Take 1 capsule by mouth three times a day. thiamine (VITAMIN B1) 100 mg tablet Take 1 tablet by mouth once daily. folic acid 1 mg tablet Take 1 tablet by mouth once daily. traZODone (DESYREL) 50 mg tablet Take 1 tablet by mouth at bedtime as needed. cyclobenzaprine (FLEXERIL) 10 mg tablet Take 1 tablet by mouth once daily as needed. No current facility-administered medications for this visit. FAMILY HISTORY Problem Relation Age of Onset Psychiatry Mother Heart Mother NM 53 Heart Father NM 51 Colon Cancer Father Social History Tobacco Use Smoking status: Former Current packs/day: 0.00 Average packs/day: 0.5 packs/day for 30.4 years (15.2 ttl pk-yrs) Types: Cigarettes Start date: 12/30/1983 Quit date: 05/30/2014 Years since quittin.2 Smokeless tobacco: Current Types: Chew Tobacco comments: Very few, very infrequently. Father smoked in childhood home. Vaping Use Vaping status: Never Used Substance Use Topics Alcohol use: Yes Alcohol/week: 84.0 standard drinks of alcohol Types: 84 Cans of Beer (12oz) per week Comment: Binge drinking at times, worse with stress. Drug use: Yes Types: Marijuana Comment: Occassional marijuana, 03/2014. Huffed spray paint and glue briefly, ages 8-9. [facility] in mid to late teens. TO REVIEW OF SYSTEMS PAIN ASSESSMENT: Negative for pain, history of chronic pain, or current treatment for a chronic pain condition. GENERAL: No weight loss, malaise or fevers HEENT: Negative for frequent or significant headaches, No changes in hearing or vision, no nose bleeds or other nasal problems RESPIRATORY: Negative for cough, hemoptysis, wheezing, COPD, dyspnea or shortness of breath CARDIOVASCULAR: Negative for chest pain, leg swelling, hypertension, CHF or palpitations GI: No nausea, vomiting, or diarrhea : No history of dysuria, frequency or incontinence All other reviewed and negative other than HPI. EXAM: BP 153/97 Pulse 114 Resp 16 SpO2 98% PHYSICAL EXAM: General Appearance: Well appearing, alert, in no acute distress, well-hydrated, well nourished.. Head: Normocephalic, no masses, lesions, tenderness or abnormalities. Eyes: Anicteric sclera. Pupils are equally round and reactive to light. Extraocular movements are intact. . Ears: External ears normal, canals clear. Nose/Sinuses: Nares normal, septum midline, mucosa normal, no drainage or sinus tenderness. Oropharynx: Lips, mucosa, and tongue normal, teeth and gums normal, oropharynx normal. Neck: Supple, no adenopathy; thyroid symmetric, normal size, no bruits. Lungs: Lungs clear to auscultation. No wheezing, rhonchi, rales.. Heart: RRR without murmur, gallop, or rubs. No ectopy. ASSESSMENT/PLAN: 1. Hypertension, essential - ICD9: 401.9, ICD10: I10 (primary diagnosis) Improving. - Uncontrolled - Increased carvedilol to 25 mg - Recommend home blood pressure monitoring, to bring results to next visit - Encouraged sodium restriction, DASH or Mediterranean diet - Recommend regular aerobic exercise - Counseled patient on alcohol cessation - Discussed risk factors of uncontrolled HTN - Discussed emergent signs and symptoms such as increased headache, blurred vision, dizziness, chest pain, SOB - Follow up in 4 weeks for hypertension visit 2. Current severe episode of major depressive disorder without psychotic features, unspecified whether recurrent (HCC) - ICD9: 296.23, ICD10: F32.2 - Uncontrolled - Patient decision to stay on current medication regimen - Counseled patient on benefits of seeing mental health counselor - Counseled patient on alcohol cessation - Discussed with patient any thoughts of SI/HI to go to ER 3. Alcohol abuse - ICD9: 305.00, ICD10: F10.10 - Counseled patient on alcohol cessation - Discussed treatment options for detox 4. Acute pain of left knee - ICD9: 719.46, ICD10: M25.562 - Well controlled - Symptoms improved with course of steroids Return to the office as scheduled or as needed for worsening/no improvement. Discussed treatment plan and patient voices understanding. Patient's questions answered appropriately. Medications and potential side effects were discussed and patient voices understanding. Keren Kwon APRN.CHRISTIANA The patient indicates understanding of these issues and agrees with the plan. documented in this encounter [facility] 08-28-2024 Telephone encounter Note Phoned pt, no answer, unable to leave message d/t voicemail not set up yet. Donna Richey LPN [facility] 08-28-2024 Telephone encounter Note Can please let patient know that I received his ultrasound results. It was consistent with fatty liver. However, it also is showing that his liver and spleen are enlarged. I would like to have him see gastroenterology for further evaluation of this. [facility] 08-27-2024 History of Present illness Narrative Radiology Service Progress Note PATIENT NAME: Bethany Montalvo DATE OF SERVICE: August 27, 2024 TIME: 2:17 PM PATIENT IDENTITY VERIFICATION COMPLETED USING TWO (2) IDENTIFIERS: Name and Date of confirmed by patient verbally. FALL SCREENING: Has the patient had 2 falls in the last year or 1 fall with injury or currently using an Ambulatory Assistive Device (Walker, Cane, Wheelchair, Crutches, etc.)? No PATIENT GENDER DATA: Assigned male at PATIENT RELEVANT IMPLANT DATA REVIEWED: Not Applicable PATIENT PRESENTS WITH AN IMPLANTABLE OR ATTACHED SLIP DUMPER: No RADIOLOGY DEPARTMENT: Ultrasound PERIPHERAL IV DATA: Not applicable SIGNED BY: Trixie Palencia RDMS August 27, 2024 2:17 PM documented in this encounter [facility] 08-27-2024 Miscellaneous Notes Ultrasound of the liver shows fatty liver. Spleen and liver are slightly enlarged. Please follow diet low in saturated fat by eliminating fried foods and choosing only lean meat/skim dairy products. Also, avoid excessive use of [id number] products that contain ibuprofen, acetaminophen, naproxen, or alcohol. documented in this encounter [facility] 08-27-2024 Note HNO ID: [id number] Author: TRIXIE PALENCIA RDMS Service: ? Author Type: Prop Attendant Type: Progress Notes Filed: 08/27/2024 14:17 Note Text: Radiology Service Progress Note PATIENT NAME: Bethany Montalvo DATE OF SERVICE: August 27, 2024 TIME: 2:17 PM PATIENT IDENTITY VERIFICATION COMPLETED USING TWO (2) IDENTIFIERS: Name and Date of confirmed by patient verbally. FALL SCREENING: Has the patient had 2 falls in the last year or 1 fall with injury or currently using an Ambulatory Assistive Device (Walker, Cane, Wheelchair, Crutches, etc.)? No PATIENT GENDER DATA: Assigned male at PATIENT RELEVANT IMPLANT DATA REVIEWED: Not Applicable PATIENT PRESENTS WITH AN IMPLANTABLE OR ATTACHED SLIP DUMPER: No RADIOLOGY DEPARTMENT: Ultrasound PERIPHERAL IV DATA: Not applicable SIGNED BY: Trixie Palencia RDMS August 27, 2024 2:17 PM [facility] 08-27-2024 Progress note Formatting of t his note might be different from the original. Ultrasound of the liver shows fatty liver. Spleen and liver are slightly enlarged. Please follow diet low in saturated fat by eliminating fried foods and choosing only lean meat/skim dairy products. Also, avoid excessive use of [id number]-[id number] products that contain ibuprofen, acetaminophen, naproxen, or alcohol. [facility] 08-24-2024 Instructions Keren Kwon APRN.CNP - 08/24/2024 12:13 PM EST Increase the carvedilol to 12.5 mg twice daily. Restart the lisinopril 10 mg daily. Recheck in 1 week. documented in this encounter [facility] 08-24-2024 Note HNO ID: [id number] Author: KEREN KWON APRN.DIGITAL SALES MANAGER Service: ? Author Type: Nurse Practitioner Type: Progress Notes Filed: 08/24/2024 12:45 Note Text: This is a 58 year old male who presents today with: Patient presents with: Recheck: Follow up L knee pain HISTORY OF PRESENT ILLNESS: Bethany Montalvo is a 58 year old male. Patient presents with: Recheck: Follow up L knee pain Pt presents today to follow-up on the left knee pain. Was seen 08/11. Suspected gout. Started prednisone, however misunderstood directions. Refers that the prednisone did help with the symptoms. Swelling and pain improved. Still with some pain around the kneecap. Gait is better. Knee xray couldn't conclusively r/o fx. Cut back ETOH. Had one yesterday and one on Saturday. Going to be getting back into the 12 step program. Has ultrasound scheduled 08/27. HTN BP continues to be quite elevated today. At last visit, we increased his carvedilol to 6.25 mg BID. No side effects and reports that he has been compliant with this. Elevated PSA: Has appt scheduled with urology in September. PAST MEDICAL HISTORY: PAST MEDICAL HISTORY Diagnosis Date Alcohol abuse Anxiety and depression 07/09/2016 Bilateral carotid artery stenosis 01/14/2020 40-59% bilateral. Chronic alcohol abuse Chronic insomnia Coronary artery disease due to lipid rich plaque CSF abnormal GERD (gastroesophageal reflux disease) GERD with esophagitis 01/29/2019 HTN (hypertension) Hypertriglyceridemia Hypomagnesemia Moderate hypertension Renal insufficiency Syncope Tubular adenoma of colon 01/29/2019 PAST SURGICAL HISTORY Procedure Laterality Date COLONOSCOPY FLX DX W/COLLJ SPEC WHEN PFRMD 01/12/2019 Colonoscopy CRANIO/MAXILLO-FACIAL SURGERY 1989 orbital blow out fracture/ [place] ESOPHAGOGASTRODUODENOSCOPY TRANSORAL DIAGNOSTIC 01/12/2019 EGD PTCA SNGL VSSL LC 11/21/2017 JUSTIN left circ TONSILLECTOMY HX TREAT SHOULDERBLADE FRACTURE UPPER GI ENDOSCPY, W/BIOPSY, SNGL OR MULT 01/12/2019 ALLERGIES Sudafed [Pseudoephedrine] MEDICATIONS Current Outpatient Medications Medication Sig predniSONE (DELTASONE) 10 mg tablet Take 4 tabs daily x 3 days, then 3 tabs x 3 days, 2 tabs x 3 days, then 1 tab x3 days with food. carvedilol (COREG) 6.25 mg tablet Take 1 tablet by mouth two times a day. busPIRone (BUSPAR) 5 mg tablet Take 1 tablet by mouth three times a day as needed. benzocaine-menthol (CEPACOL) 15-3.6 mg lozg Use 1 Lozenge as instructed every 2 hours as needed. atorvastatin (LIPITOR) 40 mg tablet Take 1 tablet by mouth daily at bedtime. aspirin, enteric coated (ECOTRIN LOW STRENGTH) 81 mg EC tablet Take 1 tablet by mouth once daily. omeprazole (PRILOSEC) 20 mg capsule Take 1 capsule by mouth daily before breakfast. 1/2 hr before meal. magnesium oxide 400 mg magnesium cap Take 1 capsule by mouth three times a day. thiamine (VITAMIN B1) 100 mg tablet Take 1 tablet by mouth once daily. folic acid 1 mg tablet Take 1 tablet by mouth once daily. traZODone (DESYREL) 50 mg tablet Take 1 tablet by mouth at bedtime as needed. cyclobenzaprine (FLEXERIL) 10 mg tablet Take 1 tablet by mouth once daily as needed. No current facility-administered medications for this visit. FAMILY HISTORY Problem Relation Age of Onset Psychiatry Mother Heart Mother NM 53 Heart Father [place] 51 Colon Cancer Father Social History Tobacco Use Smoking status: Former Current packs/day: 0.00 Average packs/day: 0.5 packs/day for 30.4 years (15.2 ttl pk-yrs) Types: Cigarettes Start date: 12/30/1983 Quit date: 05/30/2014 Years since quittin.2 Smokeless tobacco: Current Types: Chew Tobacco comments: Very few, very infrequently. Father smoked in childhood home. Vaping Use Vaping status: Never Used Substance Use Topics Alcohol use: Yes Alcohol/week: 84.0 standard drinks of alcohol Types: 84 Cans of Beer (12oz) per week Comment: Binge drinking at times, worse with stress. Drug use: Yes Types: Marijuana Comment: Occassional marijuana, 03/2014. Huffed spray paint and glue briefly, ages 8-9. Whippets in mid to late teens. TO EXAM: BP 174/100 Pulse (!) 132 Resp 16 SpO2 97% PHYSICAL EXAM: General Appearance: Well appearing, alert, in no acute distress, well-hydrated, well nourished.. Skin: Skin color, texture, turgor normal, no suspicious rashes or lesions. Head: Normocephalic, no masses, lesions, tenderness or abnormalities. Eyes: Anicteric sclera. Extraocular movements are intact. . Lungs: Lungs clear to auscultation. No wheezing, rhonchi, rales.. Heart: RRR without murmur, gallop, or rubs. No ectopy. Tachycardic. Extremities: left knee with swelling and redness that are improved. Still with some increased warmth. Neurologic: Gait normal. ASSESSMENT/PLAN: 1. Acute pain of left knee - ICD9: 719.46, ICD10: M25.562 (primary diagnosis) On prednisone. Reports significantly improv (more content not included)... [facility] 08-24-2024 History of Present illness Narrative This is a 58 year old male who presents today with: Patient presents with: Recheck: Follow up L knee pain HISTORY OF PRESENT ILLNESS: Bethany Montalvo is a 58 year old male. Patient presents with: Recheck: Follow up L knee pain Pt presents today to follow-up on the left knee pain. Was seen 08/11. Suspected gout. Started prednisone, however misunderstood directions. Refers that the prednisone did help with the symptoms. Swelling and pain improved. Still with some pain around the kneecap. Gait is better. Knee xray couldn't conclusively r/o fx. Cut back ETOH. Had one yesterday and one on Saturday. Going to be getting back into the 12 step program. Has ultrasound scheduled 08/27. HTN BP continues to be quite elevated today. At last visit, we increased his carvedilol to 6.25 mg BID. No side effects and reports that he has been compliant with this. Elevated PSA: Has appt scheduled with urology in September. PAST MEDICAL HISTORY: PAST MEDICAL HISTORY Diagnosis Date Alcohol abuse Anxiety and depression 07/09/2016 Bilateral carotid artery stenosis 01/14/2020 40-59% bilateral. Chronic alcohol abuse Chronic insomnia Coronary artery disease due to lipid rich plaque CSF abnormal GERD (gastroesophageal reflux disease) GERD with esophagitis 01/29/2019 HTN (hypertension) Hypertriglyceridemia Hypomagnesemia Moderate hypertension Renal insufficiency Syncope Tubular adenoma of colon 01/29/2019 PAST SURGICAL HISTORY Procedure Laterality Date COLONOSCOPY FLX DX W/COLLJ SPEC WHEN PFRMD 01/12/2019 Colonoscopy CRANIO/MAXILLO-FACIAL SURGERY 1989 orbital blow out fracture/ [place] ESOPHAGOGASTRODUODENOSCOPY TRANSORAL DIAGNOSTIC 01/12/2019 EGD PTCA SNGL VSSL LC 11/21/2017 JUSTIN left circ TONSILLECTOMY HX TREAT SHOULDERBLADE FRACTURE UPPER GI ENDOSCPY, W/BIOPSY, SNGL OR MULT 01/12/2019 ALLERGIES Sudafed [Pseudoephedrine] MEDICATIONS Current Outpatient Medications Medication Sig predniSONE (DELTASONE) 10 mg tablet Take 4 tabs daily x 3 days, then 3 tabs x 3 days, 2 tabs x 3 days, then 1 tab x3 days with food. carvedilol (COREG) 6.25 mg tablet Take 1 tablet by mouth two times a day. busPIRone (BUSPAR) 5 mg tablet Take 1 tablet by mouth three times a day as needed. benzocaine-menthol (CEPACOL) 15-3.6 mg lozg Use 1 Lozenge as instructed every 2 hours as needed. atorvastatin (LIPITOR) 40 mg tablet Take 1 tablet by mouth daily at bedtime. aspirin, enteric coated (ECOTRIN LOW STRENGTH) 81 mg EC tablet Take 1 tablet by mouth once daily. omeprazole (PRILOSEC) 20 mg capsule Take 1 capsule by mouth daily before breakfast. 1/2 hr before meal. magnesium oxide 400 mg magnesium cap Take 1 capsule by mouth three times a day. thiamine (VITAMIN B1) 100 mg tablet Take 1 tablet by mouth once daily. folic acid 1 mg tablet Take 1 tablet by mouth once daily. traZODone (DESYREL) 50 mg tablet Take 1 tablet by mouth at bedtime as needed. cyclobenzaprine (FLEXERIL) 10 mg tablet Take 1 tablet by mouth once daily as needed. No current facility-administered medications for this visit. FAMILY HISTORY Problem Relation Age of Onset Psychiatry Mother Heart Mother NM 53 Heart Father NM 51 Colon Cancer Father Social History Tobacco Use Smoking status: Former Current packs/day: 0.00 Average packs/day: 0.5 packs/day for 30.4 years (15.2 ttl pk-yrs) Types: Cigarettes Start date: 12/30/1983 Quit date: 05/30/2014 Years since quittin.2 Smokeless tobacco: Current Types: Chew Tobacco comments: Very few, very infrequently. Father smoked in childhood home. Vaping Use Vaping status: Never Used Substance Use Topics Alcohol use: Yes Alcohol/week: 84.0 standard drinks of alcohol Types: 84 Cans of Beer (12oz) per week Comment: Binge drinking at times, worse with stress. Drug use: Yes Types: Marijuana Comment: Occassional marijuana, 03/2014. Huffed spray paint and glue briefly, ages 7-9. Whippets in mid to late teens. TO EXAM: BP 174/100 Pulse (!) 132 Resp 16 SpO2 97% PHYSICAL EXAM: General Appearance: Well appearing, alert, in no acute distress, well-hydrated, well nourished.. Skin: Skin color, texture, turgor normal, no suspicious rashes or lesions. Head: Normocephalic, no masses, lesions, tenderness or abnormalities. Eyes: Anicteric sclera. Extraocular movements are intact. . Lungs: Lungs clear to auscultation. No wheezing, rhonchi, rales.. Heart: RRR without murmur, gallop, or rubs. No ectopy. Tachycardic. Extremities: left knee with swelling and redness that are improved. Still with some increased warmth. Neurologic: Gait normal. ASSESSMENT/PLAN: 1. Acute pain of left knee - ICD9: 719.46, ICD10: M25.562 (primary diagnosis) On prednisone. Reports significantly improved, but not completely resolved. Discussed considering MRI to r/o fx; however patient would like to hold off for now to see if continues to improve. 2. Hx of non-ST elevation myocardial infarction (NSTEMI) - ICD9: 412, ICD10: I25.2 Has not followed up with cardiology in over a year. - CONSULT TO CARDIOLOGY 3. Hypertension, unspecified type - ICD9: 401.9, ICD10: I10 - Uncontrolled - Improving control Will go ahead and increase the carvedilol to 12.5 mg twice daily. Restart lisinopril. Recheck in 1 week. - CARVEDILOL 12.5 MG TABLET - LISINOPRIL 10 MG TABLET 4. Elevated alkaline phosphatase level - ICD9: 790.5, ICD10: R74.8 Has ultrasound schedule. 5. Elevated PSA - ICD9: 790.93, ICD10: R97.20 Has appt with urology scheduled. 6. Acute gout of left knee, unspecified cause - ICD9: 274.01, ICD10: M10.9 Improved. Discussed possibly starting allopurinol to help lower uric acid level. 7. Chronic alcohol abuse - ICD9: 305.00, ICD10: F10.10 Continue to cut back ETOH use. Discussed treatment plan and patient voices understanding. Patient's questions answered appropriately. Medications and potential side effects were discussed and patient voices understanding. Return to the office as scheduled or as needed for worsening/no improvement. Keren Kwon APRN.CHRISTIANA documented in this encounter [facility] 08-21-2024 Telephone encounter Note Pt notified. He verbalized understanding. Donna Richey LPN [facility] 08-21-2024 Miscellaneous Notes Pt notified. He verbalized understanding. Donna Richey LPN I sent in another script for the prednisone. If using a lot of tylenol that could also lead to an elevation in the liver enzymes. However, we should still get the imaging. Please keep appt for Saturday so we can recheck the knee. MC message sent. Donna Richey LPN TC to pt, no answer, unable to leave message. Can please let patient know that I received the additional lab results and xray results. His alk phos elevation is coming from his liver. I would like to have him get a liver ultrasound to view his liver. His knee xray is also back. They did see an area that could represent an area that is a healing fracture. How is the knee feeling since on the prednisone? Pt notified of results/provider response. He verbalized understanding. Please assist pt with scheduling Urology appt. Donna Richey LPN Can please let patient know that I received most of his labs back. His uric acid level is elevated, so it does make it suspicious that he is having a flare of gout. The prednisone should help with this. His PSA continues to be elevated. We do need to send him to urology to have this further evaluated. The referral is placed, please help schedule. I'm still waiting on one of the lab tests and the xray results. Keren Kwon APRN.CHRISTIANA documented in this encounter [facility] 08-21-2024 Telephone encounter Note I sent in another script for the prednisone. If using a lot of tylenol that could also lead to an elevation in the liver enzymes. However, we should still get the imaging. Please keep appt for Saturday so we can recheck the knee. [facility] 08-20-2024 Telephone encounter Note Called and scheduled pt for Thursday 08/24 at 1120 am with Keren Kwon. Pt states he was done with his bubble pack of Prednisone at least 3 days ago. Attempted to discuss with pt about how he took medication and he states he took it as directed. Pt got irritated when asked again about how he took it. Per directions and number of pills, pt should still have a pill to take on 08/21 and a pill on 08/22. But pt states he completed them at least 3 days ago. [facility] 08-20-2024 Miscellaneous Notes Called and scheduled pt for Thursday 08/24 at 1120 am with Keren Kwon. Pt states he was done with his bubble pack of Prednisone at least 3 days ago. Attempted to discuss with pt about how he took medication and he states he took it as directed. Pt got irritated when asked again about how he took it. Per directions and number of pills, pt should still have a pill to take on 08/21 and a pill on 08/22. But pt states he completed them at least 3 days ago. Attempted to reach pt by phone and no voicemail set up. Try later. Jaret Love LPN There should be a couple days left of the medication. If the symptoms are returning, we should have him back in because we are likely going to need to move forward with getting an MRI. Keren Kwon APRN.CHRISTIANA Prescription Refill Information The patient has been identified by name and date of : Yes Caregiver verified no other encounters exist for this prescription request: Yes Caregiver confirmed with patient/requestor that no other refills are due, in the near future, with this provider at this time: Yes The last office visit in the department: 08/11/24 Does the patient have a future office visit with this provider/department: No Patient Comment: The medication helped a lot, but now, the condition is coming back. I have been avoiding certain foods per the recommendations from the discharge papers and I've been avoiding alcohol intake. Thank you Requested Prescriptions Pending Prescriptions Disp Refills predniSONE (DELTASONE) 10 mg tablet 30 tablet 0 Sig: Take 4 tabs daily x 3 days, then 3 tabs x 3 days, 2 tabs x 3 days, then 1 tab x3 days with food. Donna Richey LPN August 19, 2024 1:14 PM documented in this encounter [facility] 08-20-2024 Telephone encounter Note Attempted to reach pt by phone and no voicemail set up. Try later. Jaret Love LPN [facility] 08-19-2024 Telephone encounter Note There should be a couple days left of the medication. If the symptoms are returning, we should have him back in because we are likely going to need to move forward with getting an MRI. Keren Kwon APRN.DIGITAL SALES MANAGER [facility] 08-19-2024 Telephone encounter Note MC message sent. Donna Richey LPN [facility] 08-19-2024 Telephone encounter Note Prescription Refill Information The patient has been identified by name and date of : Yes Caregiver verified no other encounters exist for this prescription request: Yes Caregiver confirmed with patient/requestor that no other refills are due, in the near future, with this provider at this time: Yes The last office visit in the department: 08/11/24 Does the patient have a future office visit with this provider/department: No Patient Comment: The medication helped a lot, but now, the condition is coming back. I have been avoiding certain foods per the recommendations from the discharge papers and I've been avoiding alcohol intake. Thank you Requested Prescriptions Pending Prescriptions Disp Refills predniSONE (DELTASONE) 10 mg tablet 30 tablet 0 Sig: Take 4 tabs daily x 3 days, then 3 tabs x 3 days, 2 tabs x 3 days, then 1 tab x3 days with food. Donna Richey LPN August 19, 2024 1:14 PM [facility] 08-14-2024 Telephone encounter Note TC to pt, no answer, unable to leave message. [facility] 08-14-2024 Telephone encounter Note Can please let patient know that I received the additional lab results and xray results. His alk phos elevation is coming from his liver. I would like to have him get a liver ultrasound to view his liver. His knee xray is also back. They did see an area that could represent an area that is a healing fracture. How is the knee feeling since on the prednisone? [facility] 08-12-2024 Telephone encounter Note Pt notified of results/provider response. He verbalized understanding. Please assist pt with scheduling Urology appt. Donna Richey LPN [facility] 08-12-2024 Telephone encounter Note Can please let patient know that I received most of his labs back. His uric acid level is elevated, so it does make it suspicious that he is having a flare of gout. The prednisone should help with this. His PSA continues to be elevated. We do need to send him to urology to have this further evaluated. The referral is placed, please help schedule. I'm still waiting on one of the lab tests and the xray results. Keren Kwon APRN.DIGITAL SALES MANAGER [facility] 08-11-2024 History of Present illness Narrative Radiology Service Progress Note PATIENT NAME: Bethany Montalvo DATE OF SERVICE: August 11, 2024 TIME: 2:10 PM PATIENT IDENTITY VERIFICATION COMPLETED USING TWO (2) IDENTIFIERS: Name and Date of confirmed by patient verbally. FALL SCREENING: Has the patient had 2 falls in the last year or 1 fall with injury or currently using an Ambulatory Assistive Device (Walker, Cane, Wheelchair, Crutches, etc.)? No PATIENT GENDER DATA: Assigned male at PATIENT RELEVANT IMPLANT DATA REVIEWED: Yes PATIENT PRESENTS WITH AN IMPLANTABLE OR ATTACHED SLIP DUMPER: No RADIOLOGY DEPARTMENT: General X-ray: Exam(s) Completed: Lower Extremity X-Ray(s): Knee, AP / Lat / Tunne / Merchant Left PERIPHERAL IV DATA: Not applicable SIGNED BY: RT Satnam(Herman) August 11, 2024 2:10 PM documented in this encounter [facility] 08-11-2024 Note HNO ID: [id number] Author: WENDY ROBLES RT(R) Service: ? Author Type: Prop Attendant Type: Progress Notes Filed: 08/11/2024 14:34 Note Text: Radiology Service Progress Note PATIENT NAME: Bethany Montalvo DATE OF SERVICE: August 11, 2024 TIME: 2:10 PM PATIENT IDENTITY VERIFICATION COMPLETED USING TWO (2) IDENTIFIERS: Name and Date of confirmed by patient verbally. FALL SCREENING: Has the patient had 2 falls in the last year or 1 fall with injury or currently using an Ambulatory Assistive Device (Walker, Cane, Wheelchair, Crutches, etc.)? No PATIENT GENDER DATA: Assigned male at PATIENT RELEVANT IMPLANT DATA REVIEWED: Yes PATIENT PRESENTS WITH AN IMPLANTABLE OR ATTACHED SLIP DUMPER: No RADIOLOGY DEPARTMENT: General X-ray: Exam(s) Completed: Lower Extremity X-Ray(s): Knee, AP / Lat / Tunne / Merchant Left PERIPHERAL IV DATA: Not applicable SIGNED BY: Wendy Robles, RT(R) August 11, 2024 2:10 PM [facility] 08-11-2024 Instructions Keren Kwon APRN.CHRISTIANA - 08/11/2024 1:31 PM EST Get the xray. Get the labs. Start the prednisone. The prednisone taper will be 4 tablets for 3 days; 3 tablets for 3 days; 2 tablets for 3 days; then 1 tablet for 3 days. Please do no use other anti-inflammatories (like ibuprofen, aleve, naproxen, etc) while you are on this medication. documented in this encounter [facility] 08-11-2024 Note HNO ID: [id number] Author: KEREN KWON APRN.CHRISTIANA Service: ? Author Type: Nurse Practitioner Type: Progress Notes Filed: 08/11/2024 14:07 Note Text: This is a 58 year old male who presents today with: Patient presents with: ER F/U: [facility] ER f/u 07/23/24 dx: L knee pain HISTORY OF PRESENT ILLNESS: Bethany Montalvo is a 58 year old male. Patient presents with: ER F/U: [facility] ER f/u 07/23/24 dx: L knee pain Pt presents today for ER follow-up. He was seen in the ER on 07/23/24 after an injury that happened 5 days prior to presentation. In the ER, per the documentation, he mostly had pain over his bilateral ankles and feet. Range of motion was intact except for slightly limited by pain. He had x-rays of the left foot, ankle, tib-fib and the right foot, ankle, toes, tib-fib. Per their ER chart, no evidence of obvious fracture or dislocations. Refers that severe leg pain. Cannot get the leg comfortable. Refers that it started when he fell off ladder. Refers that he fell onto the concrete floor. Landed on left foot. Refers that they didn't xray his knee. Refers that the knee pain actually started/worsened about 3 days after his ER visit. Was advised to take tylenol and ibuprofen for the knee pain. Refers that now he is having pain that shoots into his hip and groin. Refers that the knee is swollen. Continues w/ ETOH use. 3 - 16 ounces of 8% ETOH nightly. Refers that he lost his job d/t injury. Refers that his girlfriend shattered her ankle a few months ago -- so also trying to take care of her. PAST MEDICAL HISTORY: PAST MEDICAL HISTORY Diagnosis Date Alcohol abuse Anxiety and depression 07/09/2016 Bilateral carotid artery stenosis 01/14/2020 40-59% bilateral. Chronic alcohol abuse Chronic insomnia Coronary artery disease due to lipid rich plaque CSF abnormal GERD (gastroesophageal reflux disease) GERD with esophagitis 01/29/2019 HTN (hypertension) Hypertriglyceridemia Hypomagnesemia Moderate hypertension Renal insufficiency Syncope Tubular adenoma of colon 01/29/2019 PAST SURGICAL HISTORY Procedure Laterality Date COLONOSCOPY FLX DX W/COLLJ SPEC WHEN PFRMD 01/12/2019 Colonoscopy CRANIO/MAXILLO-FACIAL SURGERY 1989 orbital blow out fracture/ [place] ESOPHAGOGASTRODUODENOSCOPY TRANSORAL DIAGNOSTIC 01/12/2019 EGD PTCA SNGL VSSL LC 11/21/2017 JUSTIN left circ TONSILLECTOMY HX TREAT SHOULDERBLADE FRACTURE UPPER GI ENDOSCPY, W/BIOPSY, SNGL OR MULT 01/12/2019 ALLERGIES Sudafed [Pseudoephedrine] MEDICATIONS Current Outpatient Medications Medication Sig busPIRone (BUSPAR) 5 mg tablet Take 1 tablet by mouth three times a day as needed. benzocaine-menthol (CEPACOL) 15-3.6 mg lozg Use 1 Lozenge as instructed every 2 hours as needed. atorvastatin (LIPITOR) 40 mg tablet Take 1 tablet by mouth daily at bedtime. carvedilol (COREG) 3.125 mg tablet Take 1 tablet by mouth two times a day. aspirin, enteric coated (ECOTRIN LOW STRENGTH) 81 mg EC tablet Take 1 tablet by mouth once daily. omeprazole (PRILOSEC) 20 mg capsule Take 1 capsule by mouth daily before breakfast. 1/2 hr before meal. magnesium oxide 400 mg magnesium cap Take 1 capsule by mouth three times a day. thiamine (VITAMIN B1) 100 mg tablet Take 1 tablet by mouth once daily. folic acid 1 mg tablet Take 1 tablet by mouth once daily. traZODone (DESYREL) 50 mg tablet Take 1 tablet by mouth at bedtime as needed. cyclobenzaprine (FLEXERIL) 10 mg tablet Take 1 tablet by mouth once daily as needed. No current facility-administered medications for this visit. FAMILY HISTORY Problem Relation Age of Onset Psychiatry Mother Heart Mother NM 53 Heart Father NM 51 Colon Cancer Father Social History Tobacco Use Smoking status: Former Current packs/day: 0.00 Average packs/day: 0.5 packs/day for 30.4 years (15.2 ttl pk-yrs) Types: Cigarettes Start date: 12/30/1983 Quit date: 05/30/2014 Years since quittin.2 Smokeless tobacco: Current Types: Chew Tobacco comments: Very few, very infrequently. Father smoked in childhood home. Vaping Use Vaping status: Never Used Substance Use Topics Alcohol use: Yes Alcohol/week: 84.0 standard drinks of alcohol Types: 84 Cans of Beer (12oz) per week Comment: Binge drinking at times, worse with stress. Drug use: Yes Types: Marijuana Comment: Occassional marijuana, 03/2014. Huffed spray paint and glue briefly, ages [age]. [employer] in mid to late teens. TO EXAM: BP 162/86 Pulse 120 Resp 16 SpO2 98% PHYSICAL EXAM: General Appearance: Well appearing, alert, in no acute distress, well-hydrated, well nourished. Uncomfortable. Skin: Skin color, texture, turgor normal, no suspicious rashes or lesions. Head: Normocephalic, no masses, lesions, tenderness or abnormalities. Eyes: Anicteric sclera. Extremities: left knee with mild redness, mild swelling. + increased warmth. Tender to light touch and patient guarding (more content not included)... [facility] 08-11-2024 History of Present illness Narrative This is a 58 year old male who presents today with: Patient presents with: ER F/U: [facility] ER f/u 07/23/24 dx: L knee pain HISTORY OF PRESENT ILLNESS: Bethany Montalvo is a 58 year old male. Patient presents with: ER F/U: [facility] ER f/u 07/23/24 dx: L knee pain Pt presents today for ER follow-up. He was seen in the ER on 07/23/24 after an injury that happened 5 days prior to presentation. In the ER, per the documentation, he mostly had pain over his bilateral ankles and feet. Range of motion was intact except for slightly limited by pain. He had x-rays of the left foot, ankle, tib-fib and the right foot, ankle, toes, tib-fib. Per their ER chart, no evidence of obvious fracture or dislocations. Refers that severe leg pain. Cannot get the leg comfortable. Refers that it started when he fell off ladder. Refers that he fell onto the concrete floor. Landed on left foot. Refers that they didn't xray his knee. Refers that the knee pain actually started/worsened about 3 days after his ER visit. Was advised to take tylenol and ibuprofen for the knee pain. Refers that now he is having pain that shoots into his hip and groin. Refers that the knee is swollen. Continues w/ ETOH use. 3 - 16 ounces of 8% ETOH nightly. Refers that he lost his job d/t injury. Refers that his girlfriend shattered her ankle a few months ago -- so also trying to take care of her. PAST MEDICAL HISTORY: PAST MEDICAL HISTORY Diagnosis Date Alcohol abuse Anxiety and depression 07/09/2016 Bilateral carotid artery stenosis 01/14/2020 40-59% bilateral. Chronic alcohol abuse Chronic insomnia Coronary artery disease due to lipid rich plaque CSF abnormal GERD (gastroesophageal reflux disease) GERD with esophagitis 01/29/2019 HTN (hypertension) Hypertriglyceridemia Hypomagnesemia Moderate hypertension Renal insufficiency Syncope Tubular adenoma of colon 01/29/2019 PAST SURGICAL HISTORY Procedure Laterality Date COLONOSCOPY FLX DX W/COLLJ SPEC WHEN PFRMD 01/12/2019 Colonoscopy CRANIO/MAXILLO-FACIAL SURGERY 1989 orbital blow out fracture/ [place] ESOPHAGOGASTRODUODENOSCOPY TRANSORAL DIAGNOSTIC 01/12/2019 EGD PTCA SNGL VSSL LC 11/21/2017 JUSTIN left circ TONSILLECTOMY HX TREAT SHOULDERBLADE FRACTURE UPPER GI ENDOSCPY, W/BIOPSY, SNGL OR MULT 01/12/2019 ALLERGIES Sudafed [Pseudoephedrine] MEDICATIONS Current Outpatient Medications Medication Sig busPIRone (BUSPAR) 5 mg tablet Take 1 tablet by mouth three times a day as needed. benzocaine-menthol (CEPACOL) 15-3.6 mg lozg Use 1 Lozenge as instructed every 2 hours as needed. atorvastatin (LIPITOR) 40 mg tablet Take 1 tablet by mouth daily at bedtime. carvedilol (COREG) 3.125 mg tablet Take 1 tablet by mouth two times a day. aspirin, enteric coated (ECOTRIN LOW STRENGTH) 81 mg EC tablet Take 1 tablet by mouth once daily. omeprazole (PRILOSEC) 20 mg capsule Take 1 capsule by mouth daily before breakfast. 1/2 hr before meal. magnesium oxide 400 mg magnesium cap Take 1 capsule by mouth three times a day. thiamine (VITAMIN B1) 100 mg tablet Take 1 tablet by mouth once daily. folic acid 1 mg tablet Take 1 tablet by mouth once daily. traZODone (DESYREL) 50 mg tablet Take 1 tablet by mouth at bedtime as needed. cyclobenzaprine (FLEXERIL) 10 mg tablet Take 1 tablet by mouth once daily as needed. No current facility-administered medications for this visit. FAMILY HISTORY Problem Relation Age of Onset Psychiatry Mother Heart Mother NM 53 Heart Father NM 51 Colon Cancer Father Social History Tobacco Use Smoking status: Former Current packs/day: 0.00 Average packs/day: 0.5 packs/day for 30.4 years (15.2 ttl pk-yrs) Types: Cigarettes Start date: 12/30/1983 Quit date: 05/30/2014 Years since quittin.2 Smokeless tobacco: Current Types: Chew Tobacco comments: Very few, very infrequently. Father smoked in childhood home. Vaping Use Vaping status: Never Used Substance Use Topics Alcohol use: Yes Alcohol/week: 84.0 standard drinks of alcohol Types: 84 Cans of Beer (12oz) per week Comment: Binge drinking at times, worse with stress. Drug use: Yes Types: Marijuana Comment: Occassional marijuana, 03/2014. Huffed spray paint and glue briefly, ages 8-9. [facility] in mid to late teens. TO EXAM: BP 162/86 Pulse 120 Resp 16 SpO2 98% PHYSICAL EXAM: General Appearance: Well appearing, alert, in no acute distress, well-hydrated, well nourished. Uncomfortable. Skin: Skin color, texture, turgor normal, no suspicious rashes or lesions. Head: Normocephalic, no masses, lesions, tenderness or abnormalities. Eyes: Anicteric sclera. Extremities: left knee with mild redness, mild swelling. + increased warmth. Tender to light touch and patient guarding knee limiting assessment. Neurologic: requiring wheelchair and walker in office today for mobility. ASSESSMENT/PLAN: 1. Acute pain of left knee - ICD9: 719.46, ICD10: M25.562 Concern for injury vs gout vs infection. Had CBC on 08/05 with normal white count. ETOH use certainly could be causing a gouty flare. Will check inflammatory markers and uric acid. Will get xray to r/o injury with the recent fall. Will give shot of toradol today. Start prednisone taper -- voices that he won't be getting from pharmacy until tomorrow. - XR KNEE GENERAL 4V AP BOTH/PA BOTH/LAT/MERC LEFT - URIC ACID - SEDIMENTATION RATE, WESTERGREN - C-REACTIVE PROTEIN - KETOROLAC 60 MG/2 ML INTRAMUSCULAR SOLUTION 2. Moderate hypertension - ICD9: 401.9, ICD10: I10 - Uncontrolled - Increase carvedilol - Recommend home blood pressure monitoring, to bring results to next visit - Encouraged sodium restriction, DASH or Mediterranean diet - Recommend regular aerobic exercise - CARVEDILOL 6.25 MG TABLET Recheck in 1 month. Discussed treatment plan and patient voices understanding. Patient's questions answered appropriately. Medications and potential side effects were discussed and patient voices understanding. Return to the office as scheduled or as needed for worsening/no improvement. Keren Kwon APRN.DIGITAL SALES MANAGER documented in this encounter [facility] 08-07-2024 Telephone encounter Note Pt notified. He verbalized understanding. Donna Richey LPN [facility] 08-07-2024 Miscellaneous Notes Pt notified. He verbalized understanding. Donna Richey LPN Can please let patient know that I received his test results. The carotid ultrasound showed no changes. The labwork had a few things that were a little off. His sodium was a little low. Sometimes we can see this with alcohol intake. However, I would like to r/o other causes. I put some orders in for additional labwork. His alk phos was also elevated. This is an enzyme that comes from either a liver source or bone source. I went ahead and put an additional test in for this, as well, to verify the source. His prostate enzyme was a little elevated. I also put in some repeat labwork for this as well. His triglyceride level has also crept up some. Ways to help lower triglycerides include: 1. Regular exercise. 2. Weight loss. 3. Avoid simple carbohydrates (sugar and foods made with white flour). 4. Choose healthier sources of fats (avoid red meats and fried foods). Trade saturated fat found in meats for healthier fat found in plants. 5. Limit alcohol. Orders are in. documented in this encounter [facility] 08-07-2024 Telephone encounter Note Can please let patient know that I received his test results. The carotid ultrasound showed no changes. The labwork had a few things that were a little off. His sodium was a little low. Sometimes we can see this with alcohol intake. However, I would like to r/o other causes. I put some orders in for additional labwork. His alk phos was also elevated. This is an enzyme that comes from either a liver source or bone source. I went ahead and put an additional test in for this, as well, to verify the source. His prostate enzyme was a little elevated. I also put in some repeat labwork for this as well. His triglyceride level has also crept up some. Ways to help lower triglycerides include: 1. Regular exercise. 2. Weight loss. 3. Avoid simple carbohydrates (sugar and foods made with white flour). 4. Choose healthier sources of fats (avoid red meats and fried foods). Trade saturated fat found in meats for healthier fat found in plants. 5. Limit alcohol. Orders are in. [facility] 07-21-2024 Telephone encounter Note The following approved medication requests have been transmitted electronically. Requested Prescriptions Pending Prescriptions Disp Refills busPIRone (BUSPAR) 5 mg tablet 90 tablet 1 Sig: Take 1 tablet by mouth three times a day as needed. Kathe Pierre APRN.CNP [facility] 07-21-2024 Miscellaneous Notes The following approved medication requests have been transmitted electronically. Requested Prescriptions Pending Prescriptions Disp Refills busPIRone (BUSPAR) 5 mg tablet 90 tablet 1 Sig: Take 1 tablet by mouth three times a day as needed. Kathe Pierre APRN.CNP Change of pharmacy Patient has been identified by name and date of : Yes Pharmacy phones for refill(s): Requested Prescriptions Pending Prescriptions Disp Refills busPIRone (BUSPAR) 5 mg tablet 90 tablet 1 Sig: Take 1 tablet by mouth three times a day as needed. Date of last office visit in primary care: 06/12/2024 Date of next office visit in primary care: Visit date not found Please advise. Thank you. Melyssa Ruiz. documented in this encounter [facility] 07-21-2024 Telephone encounter Note Change of pharmacy [facility] 07-21-2024 Telephone encounter Note Patient has been identified by name and date of : Yes Pharmacy phones for refill(s): Requested Prescriptions Pending Prescriptions Disp Refills busPIRone (BUSPAR) 5 mg tablet 90 tablet 1 Sig: Take 1 tablet by mouth three times a day as needed. Date of last office visit in primary care: 06/12/2024 Date of next office visit in primary care: Visit date not found Please advise. Thank you. Melyssa Ruiz. [facility] 07-13-2024 History of Present illness Narrative Radiology Service Progress Note PATIENT NAME: Bethany Montalvo DATE OF SERVICE: July 13, 2024 TIME: 2:00 PM PATIENT IDENTITY VERIFICATION COMPLETED USING TWO (2) IDENTIFIERS: Name and Date of confirmed by patient verbally. FALL SCREENING: Has the patient had 2 falls in the last year or 1 fall with injury or currently using an Ambulatory Assistive Device (Walker, Cane, Wheelchair, Crutches, etc.)? No PATIENT GENDER DATA: Male PATIENT RELEVANT IMPLANT DATA REVIEWED: Not Applicable PATIENT PRESENTS WITH AN IMPLANTABLE OR ATTACHED SLIP DUMPER: No RADIOLOGY DEPARTMENT: General X-ray: Exam(s) Completed: Chest X-Ray PERIPHERAL IV DATA: Not applicable SIGNED BY: PAOLA Andino) July 13, 2024 2:00 PM documented in this encounter [facility] 07-13-2024 Note HNO ID: [id number] Author: BULMARO PAPPAS RT(Herman) Service: Radiology Author Type: Technologist Type: Progress Notes Filed: 07/13/2024 14:07 Note Text: Radiology Service Progress Note PATIENT NAME: Bethany Montalvo DATE OF SERVICE: July 13, 2024 TIME: 2:00 PM PATIENT IDENTITY VERIFICATION COMPLETED USING TWO (2) IDENTIFIERS: Name and Date of confirmed by patient verbally. FALL SCREENING: Has the patient had 2 falls in the last year or 1 fall with injury or currently using an Ambulatory Assistive Device (Walker, Cane, Wheelchair, Crutches, etc.)? No PATIENT GENDER DATA: Male PATIENT RELEVANT IMPLANT DATA REVIEWED: Not Applicable PATIENT PRESENTS WITH AN IMPLANTABLE OR ATTACHED SLIP DUMPER: No RADIOLOGY DEPARTMENT: General X-ray: Exam(s) Completed: Chest X-Ray PERIPHERAL IV DATA: Not applicable SIGNED BY: Bulmaro Pappas, RT(R) July 13, 2024 2:00 PM [facility] 07-13-2024 Note HNO ID: [id number] Author: ROSA WADE APRN.CHRISTIANA Service: ? Author Type: Nurse Practitioner Type: Progress Notes Filed: 07/13/2024 14:36 Note Text: This note was created using Expert Planetriter. Subjective Bethany Montalvo is a 58 year old male. HPI Pt has had a sore throat, body aches and nausea. Sore throat started about a week ago the other symptoms started a few days ago. Review of Systems Constitutional: Negative for fever. Respiratory: Positive for cough. Objective BP 150/86 Pulse 111 Temp 37.1 ?C (98.8 ?F) (Tympanic) Resp 18 Wt 94.3 kg (207 lb 14.3 oz) SpO2 97% BMI 29.00 kg/m? Physical Exam Vitals and nursing note reviewed. Constitutional: General: He is not in acute distress. Appearance: Normal appearance. He is not ill-appearing. HENT: Head: Normocephalic. Mouth/Throat: Mouth: Mucous membranes are moist. Pharynx: Posterior oropharyngeal erythema present. No oropharyngeal exudate. Eyes: Conjunctiva/sclera: Conjunctivae normal. Cardiovascular: Rate and Rhythm: Normal rate and regular rhythm. Pulmonary: Effort: Pulmonary effort is normal. Breath sounds: Normal breath sounds. Musculoskeletal: General: Normal range of motion. Cervical back: Normal range of motion. Skin: General: Skin is warm and dry. Neurological: General: No focal deficit present. Mental Status: He is alert. Psychiatric: Mood and Affect: Mood normal. Behavior: Behavior normal. Assessment and Plan ASSESSMENT/PLAN: 1. Acute cough - ICD9: 786.2, ICD10: R05.1 Patient's chest x-ray was unremarkable. He was swabbed for COVID however if he would test positive patient is out of the window for treatment. I discussed with him that his symptoms seem more viral in origin and recommended [id number] cough and cold medication and follow-up with PCP. - XR CHEST 2V FRONTAL/LAT - COVID AND INFLUENZA A/B AND RSV PCR, ROUTINE Rosa Wade APRN.CHRISTIANA [facility] 12-23-2024 History of Present illness Narrative This note was created using Personalter. Subjective Bethany Montalvo is a 58 year old male. HPI Pt has had a sore throat, body aches and nausea. Sore throat started about a week ago the other symptoms started a few days ago. Review of Systems Constitutional: Negative for fever. Respiratory: Positive for cough. Objective BP 150/86 Pulse 111 Temp 37.1 C (98.8 F) (Tympanic) Resp 18 Wt 94.3 kg (207 lb 14.3 oz) SpO2 97% BMI 29.00 kg/m Physical Exam Vitals and nursing note reviewed. Constitutional: General: He is not in acute distress. Appearance: Normal appearance. He is not ill-appearing. HENT: Head: Normocephalic. Mouth/Throat: Mouth: Mucous membranes are moist. Pharynx: Posterior oropharyngeal erythema present. No oropharyngeal exudate. Eyes: Conjunctiva/sclera: Conjunctivae normal. Cardiovascular: Rate and Rhythm: Normal rate and regular rhythm. Pulmonary: Effort: Pulmonary effort is normal. Breath sounds: Normal breath sounds. Musculoskeletal: General: Normal range of motion. Cervical back: Normal range of motion. Skin: General: Skin is warm and dry. Neurological: General: No focal deficit present. Mental Status: He is alert. Psychiatric: Mood and Affect: Mood normal. Behavior: Behavior normal. Assessment and Plan ASSESSMENT/PLAN: 1. Acute cough - ICD9: 786.2, ICD10: R05.1 Patient's chest x-ray was unremarkable. He was swabbed for COVID however if he would test positive patient is out of the window for treatment. I discussed with him that his symptoms seem more viral in origin and recommended [id number] cough and cold medication and follow-up with PCP. - XR CHEST 2V FRONTAL/LAT - COVID & INFLUENZA A/B & RSV PCR, ROUTINE Rosa Wade APRN.CHRISTIANA documented in this encounter [facility] 07-13-2024 Note HNO ID: [id number] Author: ?, ?, ? Service: ? Author Type: ? Type: Progress Notes Filed: 07/13/2024 13:34 Note Text: POPULATION HEALTH NAVIGATION OUTREACH Action/FYI [facility] [place] Support: Called pt to schedule an appt in ORQ. Spoke w/ pt, Will call back later to schedule appt. Patient stated that he was currently at the urgent care, with flu like symptoms Reason for Outreach Care Gap/HCC or Scheduling Wellness Visits Care Gaps due: N/A Patient Contacted: Spoke to patient/parent/or legal guardian Patient identified by name and : No Navigation Signature: Chico Gonzalez July 13, 2024 1:34 PM [facility] 07-13-2024 History of Present illness Narrative POPULATION HEALTH NAVIGATION OUTREACH Action/[facility] Support: Called pt to schedule an appt in ORQ. Spoke w/ pt, Will call back later to schedule appt. Patient stated that he was currently at the urgent care, with flu like symptoms Reason for Outreach Care Gap/HCC or Scheduling Wellness Visits Care Gaps due: N/A Patient Contacted: Spoke to patient/parent/or legal guardian Patient identified by name and : No Navigation Signature: Chico Gonzalez July 13, 2024 1:34 PM documented in this encounter [facility] 07-13-2024 Note Patient Outreach (NE TNAV) BETHANY MONTALVO ([id number]) 1965 M Date Time Provider Department 07/13/24 NO PCP NETNAV During your visit today, we recorded the following information about you: Chico Gonzalez 07/13/2024 1:34 PM Signed POPULATION HEALTH NAVIGATION OUTREACH Action/[facility] Support: Called pt to schedule an appt in ORQ. Spoke w/ pt, Will call back later to schedule appt. Patient stated that he was currently at the urgent care, with flu like symptoms Reason for Outreach Care Gap/HCC or Scheduling Wellness Visits Care Gaps due: N/A Patient Contacted: Spoke to patient/parent/or legal guardian Patient identified by name and : No Navigation Signature: Chico Gonzalez July 13, 2024 1:34 PM Allergies As of Date: 07/13/2024 Noted Allergy Reaction SUDAFED (PSEUDOEPHEDRINE) 06/26/2016 14 - Other: See Comments Comments: Prostate infection Date Reviewed: 07/09/2024 Reviewed by: Desmond Duncan APRN.DIGITAL SALES MANAGER - Fully Assessed Prescriptions as of 07/13/2024 - busPIRone (BUSPAR) 5 mg tablet Take 1 tablet by mouth three times a day as needed. - benzocaine-menthol (CEPACOL) 15-3.6 mg lozg Use 1 Lozenge as instructed every 2 hours as needed. - atorvastatin (LIPITOR) 40 mg tablet Take 1 tablet by mouth daily at bedtime. - carvedilol (COREG) 3.125 mg tablet Take 1 tablet by mouth two times a day. - aspirin, enteric coated (ECOTRIN LOW STRENGTH) 81 mg EC tablet Take 1 tablet by mouth once daily. - omeprazole (PRILOSEC) 20 mg capsule Take 1 capsule by mouth daily before breakfast. 1/2 hr before meal. - magnesium oxide 400 mg magnesium cap Take 1 capsule by mouth three times a day. - thiamine (VITAMIN B1) 100 mg tablet Take 1 tablet by mouth once daily. - folic acid 1 mg tablet Take 1 tablet by mouth once daily. - traZODone (DESYREL) 50 mg tablet Take 1 tablet by mouth at bedtime as needed. - cyclobenzaprine (FLEXERIL) 10 mg tablet Take 1 tablet by mouth once daily as needed. Problem List As Of Date 07/13/2024 Noted Resolved Moderate hypertension [I10] 08/24/2006 Anxiety and depression [F41.9, F32.A] 02/05/2014 Seasonal allergies [J30.2] 02/05/2014 Renal insufficiency [N28.9] 02/05/2014 History of skull fracture [Z87.81] 02/05/2014 Hypertriglyceridemia [E78.1] 02/05/2014 Chronic alcohol abuse [F10.10] 02/05/2014 Unilateral inguinal hernia without obstruction *07/09/2016 NSTEMI (non-ST elevated myocardial infarction) *11/29/2017 Presence of drug-eluting stent in left circumfl*11/29/2017 Acute right-sided low back pain without sciatic*03/16/2019 Bilateral carotid artery stenosis [I65.23] 01/14/2020 GERD without esophagitis [K21.9] 11/05/2022 Encounter Status:Closed by CHICO GONZALEZ Prachi on 07/13/24 [facility] 07-12-2024 Telephone encounter Note Pt was notified of the results. Pt verbalized understanding. Ariela Avelar MA [facility] 07-12-2024 Miscellaneous Notes Pt was notified of the results. Pt verbalized understanding. Ariela Avelar MA Unable to reach pt on 2nd attempt due to no VM being set up. Sera Claire LPN TC no answer. Unable to leave VM d/t mailbox not set up. Please try again later. ERIC Capone Please inform patient that x-ray is normal. Follow-up with orthopedics if symptoms persist. Desmond Duncan APRN.DIGITAL SALES MANAGER documented in this encounter [facility] 07-10-2024 Telephone encounter Note Unable to reach pt on 2nd attempt due to no VM being set up. Sera Claire LPN [facility] 07-10-2024 Telephone encounter Note Pharmacy just filled last script. This would be for future. [facility] 07-10-2024 Miscellaneous Notes Pharmacy just filled last script. This would be for future. [facility] Prescription Refill Information The patient has been identified by name and date of : Yes Caregiver verified no other encounters exist for this prescription request: Yes Caregiver confirmed with patient/requestor that no other refills are due, in the near future, with this provider at this time: Yes The last office visit in the department: 06-12-24 Does the patient have a future office visit with this provider/department: No Requested Prescriptions Pending Prescriptions Disp Refills busPIRone (BUSPAR) 5 mg tablet 90 tablet 1 Sig: Take 1 tablet by mouth three times a day as needed. Estrella Goss July 10, 2024 11:52 AM documented in this encounter [facility] 07-10-2024 Telephone encounter Note Prescription Refill Information The patient has been identified by name and date of : Yes Caregiver verified no other encounters exist for this prescription request: Yes Caregiver confirmed with patient/requestor that no other refills are due, in the near future, with this provider at this time: Yes The last office visit in the department: 06-12-24 Does the patient have a future office visit with this provider/department: No Requested Prescriptions Pending Prescriptions Disp Refills busPIRone (BUSPAR) 5 mg tablet 90 tablet 1 Sig: Take 1 tablet by mouth three times a day as needed. Estrella Goss July 10, 2024 11:52 AM [facility] 07-09-2024 Telephone encounter Note TC no answer. Unable to leave VM d/t mailbox not set up. Please try again later. ERIC Capone [facility] 07-09-2024 Telephone encounter Note Please inform patient that x-ray is normal. Follow-up with orthopedics if symptoms persist. Desmond Duncan APRN.CNP [facility] 07-09-2024 History of Present illness Narrative Radiology Service Progress Note PATIENT NAME: Bethany Montalvo DATE OF SERVICE: July 09, 2024 TIME: 5:07 PM PATIENT IDENTITY VERIFICATION COMPLETED USING TWO (2) IDENTIFIERS: Name and Date of confirmed by patient verbally. FALL SCREENING: Has the patient had 2 falls in the last year or 1 fall with injury or currently using an Ambulatory Assistive Device (Walker, Cane, Wheelchair, Crutches, etc.)? No PATIENT GENDER DATA: Male PATIENT RELEVANT IMPLANT DATA REVIEWED: Yes PATIENT PRESENTS WITH AN IMPLANTABLE OR ATTACHED SLIP DUMPER: No RADIOLOGY DEPARTMENT: General X-ray: Exam(s) Completed: Upper Extremity X-Ray(s): Elbow, right PERIPHERAL IV DATA: Not applicable SIGNED BY: RT Satnam(Herman) July 09, 2024 5:07 PM documented in this encounter [facility] 07-09-2024 Note HNO ID: [id number] Author: WENDY ROBLES RT(Herman) Service: ? Author Type: Prop Attendant Type: Progress Notes Filed: 07/09/2024 17:16 Note Text: Radiology Service Progress Note PATIENT NAME: Bethany Montalvo DATE OF SERVICE: July 09, 2024 TIME: 5:07 PM PATIENT IDENTITY VERIFICATION COMPLETED USING TWO (2) IDENTIFIERS: Name and Date of confirmed by patient verbally. FALL SCREENING: Has the patient had 2 falls in the last year or 1 fall with injury or currently using an Ambulatory Assistive Device (Walker, Cane, Wheelchair, Crutches, etc.)? No PATIENT GENDER DATA: Male PATIENT RELEVANT IMPLANT DATA REVIEWED: Yes PATIENT PRESENTS WITH AN IMPLANTABLE OR ATTACHED SLIP DUMPER: No RADIOLOGY DEPARTMENT: General X-ray: Exam(s) Completed: Upper Extremity X-Ray(s): Elbow, right PERIPHERAL IV DATA: Not applicable SIGNED BY: RT Satnam(R) July 09, 2024 5:07 PM [facility] 07-09-2024 Note HNO ID: [id number] Author: DESMOND DUNCAN APRN.DIGITAL SALES MANAGER Service: ? Author Type: Nurse Practitioner Type: Progress Notes Filed: 07/09/2024 18:04 Note Text: Subjective HPI Nontoxic-appearing male presents urgent care chief complaint sore throat body aches chills headache cough. Duration of symptoms few days. Associated symptoms listed above. Additionally has had right elbow injury for about 1 week. States he struck his elbow on a rail at work. Presents today for evaluation. [id number]. Denies any other injuries. OTC medications none recently. Past medical history prescription medications allergies reviewed. .Patient presents with: Elbow Injury: Right, hit railing at working, pain x 1 week Sore Throat: X 1 week PAST MEDICAL HISTORY Diagnosis Date Alcohol abuse Anxiety and depression 07/09/2016 Bilateral carotid artery stenosis 01/14/2020 40-59% bilateral. Chronic alcohol abuse Chronic insomnia Coronary artery disease due to lipid rich plaque CSF abnormal GERD (gastroesophageal reflux disease) GERD with esophagitis 01/29/2019 HTN (hypertension) Hypertriglyceridemia Hypomagnesemia Moderate hypertension Renal insufficiency Syncope Tubular adenoma of colon 01/29/2019 PAST SURGICAL HISTORY Procedure Laterality Date COLONOSCOPY FLX DX W/COLLJ SPEC WHEN PFRMD 01/12/2019 Colonoscopy CRANIO/MAXILLO-FACIAL SURGERY 1989 orbital blow out fracture/ [place] ESOPHAGOGASTRODUODENOSCOPY TRANSORAL DIAGNOSTIC 01/12/2019 EGD PTCA SNGL VSSL LC 11/21/2017 JUSTIN left circ TONSILLECTOMY HX TREAT SHOULDERBLADE FRACTURE UPPER GI ENDOSCPY, W/BIOPSY, SNGL OR MULT 01/12/2019 ALLERGIES Sudafed [Pseudoephedrine] MEDICATIONS atorvastatin (LIPITOR) 40 mg tablet Take 1 tablet by mouth daily at bedtime. carvedilol (COREG) 3.125 mg tablet Take 1 tablet by mouth two times a day. aspirin, enteric coated (ECOTRIN LOW STRENGTH) 81 mg EC tablet Take 1 tablet by mouth once daily. omeprazole (PRILOSEC) 20 mg capsule Take 1 capsule by mouth daily before breakfast. 1/2 hr before meal. busPIRone (BUSPAR) 5 mg tablet Take 1 tablet by mouth three times a day as needed. magnesium oxide 400 mg magnesium cap Take 1 capsule by mouth three times a day. thiamine (VITAMIN B1) 100 mg tablet Take 1 tablet by mouth once daily. folic acid 1 mg tablet Take 1 tablet by mouth once daily. traZODone (DESYREL) 50 mg tablet Take 1 tablet by mouth at bedtime as needed. cyclobenzaprine (FLEXERIL) 10 mg tablet Take 1 tablet by mouth once daily as needed. FAMILY HISTORY Problem Relation Age of Onset Psychiatry Mother Heart Mother NM 53 Heart Father NM 51 Colon Cancer Father Social History Tobacco Use Smoking status: Former Current packs/day: 0.00 Average packs/day: 0.5 packs/day for 30.4 years (15.2 ttl pk-yrs) Types: Cigarettes Start date: 12/30/1983 Quit date: 05/30/2014 Years since quittin.1 Smokeless tobacco: Current Types: Chew Tobacco comments: Very few, very infrequently. Father smoked in childhood home. Vaping Use Vaping status: Never Used Substance Use Topics Alcohol use: Yes Alcohol/week: 84.0 standard drinks of alcohol Types: 84 Cans of Beer (12oz) per week Comment: Binge drinking at times, worse with stress. Drug use: Yes Types: Marijuana Comment: Occassional marijuana, 03/2014. Huffed spray paint and glue briefly, ages 8-9. Whippets in mid to late teens. TO BP 128/78 (BP Site: Left Arm, BP Position: Sitting) Pulse 98 Temp 36.9 ?C (98.4 ?F) Resp 18 Wt 97.2 kg (214 lb 4.6 oz) SpO2 97% BMI 29.89 kg/m? Review of Systems Constitutional: Positive for malaise/fatigue. Negative for chills and fever. HENT: Positive for congestion and sore throat. Negative for ear discharge, ear pain and sinus pain. Eyes: Negative for blurred vision, pain, discharge and redness. Respiratory: Positive for cough. Negative for hemoptysis, sputum production, shortness of breath, wheezing and stridor. Cardiovascular: Negative for chest pain. Gastrointestinal: Negative for abdominal pain, diarrhea, nausea and vomiting. Musculoskeletal: Positive for joint pain and myalgias. Skin: Negative for itching and rash. Neurological: Negative for dizziness and headaches. Objective Physical Exam Constitutional: General: He is not in acute distress. Appearance: He is not diaphoretic. HENT: Head: Normocephalic. Jaw: No trismus, tenderness, swelling or pain on movement. Nose: Congestion present. Mouth/Throat: Mouth: Mucous membranes are moist. Pharynx: Oropharynx is clear. Uvula midline. Posterior oropharyngeal erythema present. No pharyngeal swelling, oropharyngeal exudate or uvula swelling. Eyes: Conjunctiva/sclera: Conjunctivae normal. Pupils: Pupils are equal, round, and reactive to light. Cardiovascular: Rate and Rhythm: Normal rate and regular rhythm. Heart sounds: Normal heart sounds. Pulmonary: Effort: Pulmonary effort (more content not included)... [facility] 07-09-2024 History of Present illness Narrative Subjective HPI Nontoxic-appearing male presents urgent care chief complaint sore throat body aches chills headache cough. Duration of symptoms few days. Associated symptoms listed above. Additionally has had right elbow injury for about 1 week. States he struck his elbow on a rail at work. Presents today for evaluation. [id number]. Denies any other injuries. OTC medications none recently. Past medical history prescription medications allergies reviewed. .Patient presents with: Elbow Injury: Right, hit railing at working, pain x 1 week Sore Throat: X 1 week PAST MEDICAL HISTORY Diagnosis Date Alcohol abuse Anxiety and depression 07/09/2016 Bilateral carotid artery stenosis 01/14/2020 40-59% bilateral. Chronic alcohol abuse Chronic insomnia Coronary artery disease due to lipid rich plaque CSF abnormal GERD (gastroesophageal reflux disease) GERD with esophagitis 01/29/2019 HTN (hypertension) Hypertriglyceridemia Hypomagnesemia Moderate hypertension Renal insufficiency Syncope Tubular adenoma of colon 01/29/2019 PAST SURGICAL HISTORY Procedure Laterality Date COLONOSCOPY FLX DX W/COLLJ SPEC WHEN PFRMD 01/12/2019 Colonoscopy CRANIO/MAXILLO-FACIAL SURGERY 1989 orbital blow out fracture/ [place] ESOPHAGOGASTRODUODENOSCOPY TRANSORAL DIAGNOSTIC 01/12/2019 EGD PTCA SNGL VSSL LC 11/21/2017 JUSTIN left circ TONSILLECTOMY HX TREAT SHOULDERBLADE FRACTURE UPPER GI ENDOSCPY, W/BIOPSY, SNGL OR MULT 01/12/2019 ALLERGIES Sudafed [Pseudoephedrine] MEDICATIONS atorvastatin (LIPITOR) 40 mg tablet Take 1 tablet by mouth daily at bedtime. carvedilol (COREG) 3.125 mg tablet Take 1 tablet by mouth two times a day. aspirin, enteric coated (ECOTRIN LOW STRENGTH) 81 mg EC tablet Take 1 tablet by mouth once daily. omeprazole (PRILOSEC) 20 mg capsule Take 1 capsule by mouth daily before breakfast. 1/2 hr before meal. busPIRone (BUSPAR) 5 mg tablet Take 1 tablet by mouth three times a day as needed. magnesium oxide 400 mg magnesium cap Take 1 capsule by mouth three times a day. thiamine (VITAMIN B1) 100 mg tablet Take 1 tablet by mouth once daily. folic acid 1 mg tablet Take 1 tablet by mouth once daily. traZODone (DESYREL) 50 mg tablet Take 1 tablet by mouth at bedtime as needed. cyclobenzaprine (FLEXERIL) 10 mg tablet Take 1 tablet by mouth once daily as needed. FAMILY HISTORY Problem Relation Age of Onset Psychiatry Mother Heart Mother NM 53 Heart Father NM 51 Colon Cancer Father Social History Tobacco Use Smoking status: Former Current packs/day: 0.00 Average packs/day: 0.5 packs/day for 30.4 years (15.2 ttl pk-yrs) Types: Cigarettes Start date: 12/30/1983 Quit date: 05/30/2014 Years since quittin.1 Smokeless tobacco: Current Types: Chew Tobacco comments: Very few, very infrequently. Father smoked in childhood home. Vaping Use Vaping status: Never Used Substance Use Topics Alcohol use: Yes Alcohol/week: 84.0 standard drinks of alcohol Types: 84 Cans of Beer (12oz) per week Comment: Binge drinking at times, worse with stress. Drug use: Yes Types: Marijuana Comment: Occassional marijuana, 03/2014. Huffed spray paint and glue briefly, ages 7-9. Whippets in mid to late teens. TO BP 128/78 (BP Site: Left Arm, BP Position: Sitting) Pulse 98 Temp 36.9 C (98.4 F) Resp 18 Wt 97.2 kg (214 lb 4.6 oz) SpO2 97% BMI 29.89 kg/m Review of Systems Constitutional: Positive for malaise/fatigue. Negative for chills and fever. HENT: Positive for congestion and sore throat. Negative for ear discharge, ear pain and sinus pain. Eyes: Negative for blurred vision, pain, discharge and redness. Respiratory: Positive for cough. Negative for hemoptysis, sputum production, shortness of breath, wheezing and stridor. Cardiovascular: Negative for chest pain. Gastrointestinal: Negative for abdominal pain, diarrhea, nausea and vomiting. Musculoskeletal: Positive for joint pain and myalgias. Skin: Negative for itching and rash. Neurological: Negative for dizziness and headaches. Objective Physical Exam Constitutional: General: He is not in acute distress. Appearance: He is not diaphoretic. HENT: Head: Normocephalic. Jaw: No trismus, tenderness, swelling or pain on movement. Nose: Congestion present. Mouth/Throat: Mouth: Mucous membranes are moist. Pharynx: Oropharynx is clear. Uvula midline. Posterior oropharyngeal erythema present. No pharyngeal swelling, oropharyngeal exudate or uvula swelling. Eyes: Conjunctiva/sclera: Conjunctivae normal. Pupils: Pupils are equal, round, and reactive to light. Cardiovascular: Rate and Rhythm: Normal rate and regular rhythm. Heart sounds: Normal heart sounds. Pulmonary: Effort: Pulmonary effort is normal. No tachypnea, accessory muscle usage or respiratory distress. Breath sounds: Normal breath sounds. No stridor. No wheezing, rhonchi or rales. Abdominal: General: There is no distension. Palpations: Abdomen is soft. Tenderness: There is no abdominal tenderness. There is no guarding or rebound. Musculoskeletal: Right elbow: Swelling present. No deformity, effusion or lacerations. Tenderness present in radial head. Right forearm: Normal. Cervical back: Normal range of motion and neck supple. No edema, erythema, rigidity or tenderness. No pain with movement. Normal range of motion. Comments: No breaks in skin. No evidence of infection. Lymphadenopathy: Cervical: No cervical adenopathy. Skin: General: Skin is warm and dry. Neurological: Mental Status: He is alert and oriented to person, place, and time. ASSESSMENT/PLAN: 1. Sore throat - ICD9: 462, ICD10: J02.9 (primary diagnosis) - STREP A MOLECULAR (POC) 2. Injury of right elbow, initial encounter - ICD9: 959.3, ICD10: S59.901A - XR ELBOW SPECIAL VIEWS AP/LAT/OTHER RIGHT 3. Viral illness - ICD9: 079.99, ICD10: B34.9 IMPRESSION: No acute osseous abnormalities are identified. No evidence of bacterial infection on today's assessment. X-ray of elbow is unremarkable. Treat as contusion. Treat as viral illness. Patient was educated on supportive therapies. Patient will follow up with primary care provider as needed. Patient was instructed to immediately proceed to emergency room for any new, worsening, or symptoms lasting longer than anticipated. The patient's clinical presentation is otherwise unremarkable at this time. Based on exam and clinical finding, the patient is stable for discharge. Plan of care was discussed with patient. Patient verbalizes understanding and agrees to plan of care. This note was generated using [employer] software. It may contain errors in wording, punctuation, or spelling. Desmond Duncan APRN.CHRISTIANA documented in this encounter [facility] 06-23-2024 Telephone encounter Note Faxed as requested. Jaret Paulino MA [facility] 06-23-2024 Miscellaneous Notes Faxed as requested. Jaret Paulino MA Please fax GI consult to Dr. Lovell at [facility]. Thank you, Alma Delia Garza APRN.DIGITAL SALES MANAGER documented in this encounter [facility] 06-22-2024 Telephone encounter Note Please fax GI consult to Dr. Lovell at [facility]. Thank you, Alma Delia Garza APRN.DIGITAL SALES MANAGER [facility] Work Phone: 06-22-2024 Nurse Note REVIEW OF SYSTEMS: General: The patient NOTES fatigue, denies weight loss, NOTES weight gain, denies feeling hot, and denies feelings of cold. Eyes: The patient denies glaucoma, NOTES eye injury/surgery, does wear glasses or contacts. Ear/Nose/Throat: The patient NOTES allergies, denies hayfever, denies ear infections, and denies bloody noses. Cardiovascular: The patient denies chest pain, NOTES heart disease, NOTES high blood pressure,NOTES cardiac stent, NOTES prior heart attack, denies irregular heart beat, NOTES high cholesterol, NOTES poor circulation, denies heart failure, other cardiac issues, denies claudication, NOTES cold feet, denies peripheral arterial stent. Respiratory: The patient denies tuberculosis, denies pneumonia, NOTES frequent cough, denies pulmonary embolism, NOTES shortness of breath, and denies coughing up blood. Gastrointestinal: The patient denies difficulty swallowing, NOTES acid reflux, denies ulcers, denies vomiting, denies jaundice/hepatitis, denies gallbladder problems, denies black or tarry stools, denies hemorrhoids, denies bleeding from rectum, denies diverticulitis, denies constipation, denies diarrhea, denies loss of stool control, and denies hernias. Kidney/Bladder: The patient denies kidney stones, denies urine infections, and NOTES renal issufficiency. Skin: The patient denies a history of skin cancer, denies bleeding/changing moles, and denies a history of skin rash. Neurologic: The patient denies a history of epilepsy/convulsions, denies headaches, denies head/spinal injuries, and denies stroke/TIA. Psychiatric: The patient denies psychiatric medications, denies depression, and denies voices, denies substance abuse. Endocrine: The patient denies thyroid disorders, denies diabetes, and denies hormonal problems. Hematologic: The patient denies a history of bruising, denies bleeding, and denies anemia, denies blood clots. Infections: The patient denies a history of measles and mumps, denies rheumatic fever, and denies sexually transmitted diseases. Musculoskeletal: The patient denies back pain/injury, denies back problems, denies sciatica, denies knee/foot trouble, denies arthritis, or denies gout. When was patient's last Mammogram screening? N/A Last Colonoscopy: 01/12/2019 Leanna Wilburn RN [facility] 06-22-2024 Nurse Note REVIEW OF SYSTEMS: General: The patient NOTES fatigue, denies weight loss, NOTES weight gain, denies feeling hot, and denies feelings of cold. Eyes: The patient denies glaucoma, NOTES eye injury/surgery, does wear glasses or contacts. Ear/Nose/Throat: The patient NOTES allergies, denies hayfever, denies ear infections, and denies bloody noses. Cardiovascular: The patient denies chest pain, NOTES heart disease, NOTES high blood pressure,NOTES cardiac stent, NOTES prior heart attack, denies irregular heart beat, NOTES high cholesterol, NOTES poor circulation, denies heart failure, other cardiac issues, denies claudication, NOTES cold feet, denies peripheral arterial stent. Respiratory: The patient denies tuberculosis, denies pneumonia, NOTES frequent cough, denies pulmonary embolism, NOTES shortness of breath, and denies coughing up blood. Gastrointestinal: The patient denies difficulty swallowing, NOTES acid reflux, denies ulcers, denies vomiting, denies jaundice/hepatitis, denies gallbladder problems, denies black or tarry stools, denies hemorrhoids, denies bleeding from rectum, denies diverticulitis, denies constipation, denies diarrhea, denies loss of stool control, and denies hernias. Kidney/Bladder: The patient denies kidney stones, denies urine infections, and NOTES renal issufficiency. Skin: The patient denies a history of skin cancer, denies bleeding/changing moles, and denies a history of skin rash. Neurologic: The patient denies a history of epilepsy/convulsions, denies headaches, denies head/spinal injuries, and denies stroke/TIA. Psychiatric: The patient denies psychiatric medications, denies depression, and denies voices, denies substance abuse. Endocrine: The patient denies thyroid disorders, denies diabetes, and denies hormonal problems. Hematologic: The patient denies a history of bruising, denies bleeding, and denies anemia, denies blood clots. Infections: The patient denies a history of measles and mumps, denies rheumatic fever, and denies sexually transmitted diseases. Musculoskeletal: The patient denies back pain/injury, denies back problems, denies sciatica, denies knee/foot trouble, denies arthritis, or denies gout. When was patient's last Mammogram screening? N/A Last Colonoscopy: 01/12/2019 Leanna Wilburn RN documented in this encounter [facility] 06-22-2024 History of Present illness Narrative HISTORY AND PHYSICAL Bethany Montalvo : 1965 REFERRING PHYSICIAN: Keren Prescott [facility] [id number] CHIEF COMPLAINT: Patient presents with: Consult: colonoscopy HPI: Bethany is a 58 year old male referred for endoscopy. Bethany notes due for screening colonoscopy, family hx of colon cancer in father & personal hx of polyps (2019). Bethany denies abdominal pain.. Bethany denies diarrhea. Bethany denies constipation. Bethnay denies a change in bowel habits. Bethany denies melena. Bethany denies bright red blood per rectum. Bethany denies hemorrhoids. Bethany notes a distant history of heartburn. -well controlled on Prilosec Bethany denies dysphagia. Bethany denies a history of ulcers/ peptic ulcer disease. Bethany notes family history of colon issues. Father with colon cancer Bethany has a hx of alcoholism, currently drinking 6, 5.5% beers every other day. Hx of CAD with stent placement in 2018. Denies CP, SOB, dizziness, palpitations, syncope, edema, recent hospitalizations. Last ECHO 2022 with EF of 54% and no ischemia. Follows with [facility]. Bethany notes he is under a lot of stress currently- his partner was discharged early from rehab for an ankle fx and he is her primary caregiver. Bethany has undergone prior endoscopy. Last EGD & colonoscopy 12/[address] Payton at [facility]. Sedation: MAC EGD Impression: -Normal examined jejunum -Normal examined duodenum -Gastritis. Biopsied. -A few gastric polyps. Resected & retrieved. -Mildly severe reflux esophagitis. Biopsied. COLONOSCOPY Impression: -The examined portion of the ileum was normal. Biopsied. -The entire examined colon is normal. Biopsied. -Two small polyps at the recto-sigmoid colon, removed with a cold snare. Resected & retrieved. -The distal rectum and anal verge are normal on retroflexion view. -Diverticulosis in the sigmoid colon. Pathology demonstrated gastric mucosa with no significant pathologic changes, fundic gland polyp, negative testing for H. Pylori. Biopsies from the gastro-esophageal junction showed mild chronic inflammation, negative for intestinal goblet cells, negative for dysplasia. Terminal ileum biopsy showed small bowel mucosa with mild chronic nonspecific inflammation in the lamina propria. Random colonic biopsies showed mild chronic nonspecific inflammation in the lamina propria, negative for active colitis or dysplasia. Polyp tissue demonstrated fragments of tubular adenoma and hyperplastic polyps. Current Outpatient Medications Medication Sig atorvastatin (LIPITOR) 40 mg tablet Take 1 tablet by mouth daily at bedtime. carvedilol (COREG) 3.125 mg tablet Take 1 tablet by mouth two times a day. aspirin, enteric coated (ECOTRIN LOW STRENGTH) 81 mg EC tablet Take 1 tablet by mouth once daily. omeprazole (PRILOSEC) 20 mg capsule Take 1 capsule by mouth daily before breakfast. 1/2 hr before meal. busPIRone (BUSPAR) 5 mg tablet Take 1 tablet by mouth three times a day as needed. magnesium oxide 400 mg magnesium cap Take 1 capsule by mouth three times a day. thiamine (VITAMIN B1) 100 mg tablet Take 1 tablet by mouth once daily. folic acid 1 mg tablet Take 1 tablet by mouth once daily. traZODone (DESYREL) 50 mg tablet Take 1 tablet by mouth at bedtime as needed. cyclobenzaprine (FLEXERIL) 10 mg tablet Take 1 tablet by mouth once daily as needed. No current facility-administered medications for this visit. ALLERGIES: Sudafed [Pseudoephedrine] PAST MEDICAL HISTORY Diagnosis Date Alcohol abuse Anxiety and depression 07/09/2016 Bilateral carotid artery stenosis 01/14/2020 40-59% bilateral. Chronic alcohol abuse Chronic insomnia Coronary artery disease due to lipid rich plaque CSF abnormal GERD (gastroesophageal reflux disease) GERD with esophagitis 01/29/2019 HTN (hypertension) Hypertriglyceridemia Hypomagnesemia Moderate hypertension Renal insufficiency Syncope Tubular adenoma of colon 01/29/2019 PAST SURGICAL HISTORY Procedure Laterality Date COLONOSCOPY FLX DX W/COLLJ SPEC WHEN PFRMD 01/12/2019 Colonoscopy CRANIO/MAXILLO-FACIAL SURGERY 1989 orbital blow out fracture/ [place] ESOPHAGOGASTRODUODENOSCOPY TRANSORAL DIAGNOSTIC 01/12/2019 EGD PTCA SNGL VSSL LC 11/21/2017 JUSTIN left circ TONSILLECTOMY HX TREAT SHOULDERBLADE FRACTURE UPPER GI ENDOSCPY, W/BIOPSY, SNGL OR MULT 01/12/2019 FAMILY HISTORY Problem Relation Age of Onset Psychiatry Mother Heart Mother NM 53 Heart Father NM 51 Colon Cancer Father Social History Tobacco Use Smoking status: Former Current packs/day: 0.00 Average packs/day: 0.5 packs/day for 30.4 years (15.2 ttl pk-yrs) Types: Cigarettes Start date: 12/30/1983 Quit date: 05/30/2014 Years since quittin.0 Smokeless tobacco: Current Types: Chew Tobacco comments: Very few, very infrequently. Father smoked in childhood home. Vaping Use Vaping status: Never Used Substance Use Topics Alcohol use: Yes Alcohol/week: 84.0 standard drinks of alcohol Types: 84 Cans of Beer (12oz) per week Comment: Binge drinking at times, worse with stress. Drug use: Yes Types: Marijuana Comment: Occassional marijuana, 03/2014. Huffed spray paint and glue briefly, ages 8-9. Whippets in mid to late teens. TO REVIEW OF SYMPTOMS: The review of systems data was entered by the nurse and reviewed by vt Nursing Notes: Leanna Wilburn RN 06/22/2024 4:06 PM Signed REVIEW OF SYSTEMS: General: The patient NOTES fatigue, denies weight loss, NOTES weight gain, denies feeling hot, and denies feelings of cold. Eyes: The patient denies glaucoma, NOTES eye injury/surgery, does wear glasses or contacts. Ear/Nose/Throat: The patient NOTES allergies, denies hayfever, denies ear infections, and denies bloody noses. Cardiovascular: The patient denies chest pain, NOTES heart disease, NOTES high blood pressure,NOTES cardiac stent, NOTES prior heart attack, denies irregular heart beat, NOTES high cholesterol, NOTES poor circulation, denies heart failure, other cardiac issues, denies claudication, NOTES cold feet, denies peripheral arterial stent. Respiratory: The patient denies tuberculosis, denies pneumonia, NOTES frequent cough, denies pulmonary embolism, NOTES shortness of breath, and denies coughing up blood. Gastrointestinal: The patient denies difficulty swallowing, NOTES acid reflux, denies ulcers, denies vomiting, denies jaundice/hepatitis, denies gallbladder problems, denies black or tarry stools, denies hemorrhoids, denies bleeding from rectum, denies diverticulitis, denies constipation, denies diarrhea, denies loss of stool control, and denies hernias. Kidney/Bladder: The patient denies kidney stones, denies urine infections, and NOTES renal issufficiency. Skin: The patient denies a history of skin cancer, denies bleeding/changing moles, and denies a history of skin rash. Neurologic: The patient denies a history of epilepsy/convulsions, denies headaches, denies head/spinal injuries, and denies stroke/TIA. Psychiatric: The patient denies psychiatric medications, denies depression, and denies voices, denies substance abuse. Endocrine: The patient denies thyroid disorders, denies diabetes, and denies hormonal problems. Hematologic: The patient denies a history of bruising, denies bleeding, and denies anemia, denies blood clots. Infections: The patient denies a history of measles and mumps, denies rheumatic fever, and denies sexually transmitted diseases. Musculoskeletal: The patient denies back pain/injury, denies back problems, denies sciatica, denies knee/foot trouble, denies arthritis, or denies gout. When was patient's last Mammogram screening? N/A Last Colonoscopy: 01/12/2019 Leanna Wilburn RN PHYSICAL EXAMINATION: General: The patient is 58 year old, male well nourished, well hydrated in no acute distress. The patient is oriented to time, place, and person. VITALS: Blood pressure 142/92, pulse 107, temperature 37.2 C (98.9 F), height 180.3 cm (5' 11), weight 98.2 kg (216 lb 8 oz), SpO2 94%. Body mass index is 30.2 kg/m . HEENT: Normal cephalic, ataumatic, pupils are equally round, sclera are anicteric, mucous membranes are moist, oropharynx is clear. Neck has no masses, asymmetry or lymphadenopathy. Respiratory: Clear to auscultation and percussion. Normal respiratory excursion and pattern. Cardiac: Examination is regular rate and rhythm. Normal S1/S2 Abdominal exam: Soft, nontender, with no palpable masses. No hepatosplenomegaly. No palpable hernias. Extremities: no clubbing, cyanosis or edema. No adenopathy. LABORATORY VALUES: As Noted RADIOLOGIC STUDIES: As Noted Assessment IMPRESSION: screen for colon cancer, history of colon polyps, family history of colon cancer PLAN: I have reviewed my findings with the surgeon. Will plan for lower endoscopy. We discussed the risks and benefits of the planned endoscopy. I have informed the patient that complications can occur including failure to complete the endoscopy and perforation. Bethany had the opportunity to ask questions concerning the planned endoscopy. My staff has also explained the procedure to the patient in understandable terms and has given the patient printed material concerning the procedure. Bethany freely consents to surgery. I plan to use Golytely bowel preparation I have explained to the patient the difference between IV conscious sedation and MAC anesthesia - and I have offered either, according to the patient's wishes. I have explained that with IV conscious sedation there is no anesthesia provider available and therefore there is a limitation of the amount of IV medications that can be given and that the patient may wake up in the middle of the procedure and/or experience pain/discomfort during the procedure. Further discussion was done and the patient was given the opportunity to ask questions and all questions were answered. Bethany chooses MAC anesthesia. We discussed traveling to [place] for this. He states he wants to stay local. I discussed the risk of under sedation in the ASC d/t his alcohol use and he declined stating he wants to be completely out. I will fax a referral to [facility], if it doesn't work out then we will plan for [facility] in [place]. He is agreeable. Bethany was counseled that if there are changes in his/her medical condition, to let the office know if surgery should proceed. If there are changes in patient's medical condition from time of this encounter to the day of the procedure that preclude anesthesia, patient may have procedure cancelled for patient's safety. Diagnoses: (Z80.0) Family hx of colon cancer (primary encounter diagnosis) (Z12.11) Screening for colon cancer (Z86.0100) Hx of colonic polyps Consultation requested by Keren Kwon CNP for an opinion regarding colon cancer screening. My final recommendations will be communicated back to the requesting physician by way of shared Medical record or letter to requesting physician via US mail. Portions of this documentation were copied and pasted from previous office visit notes in order to provide a cohesive continuity of the history. The note has been reviewed and edited and updated as necessary. Alma Delia Garza APRN.CHRISTIANA documented in this encounter [facility] 06-22-2024 Note HNO ID: [id number] Author: ALMA DELIA GARZA APRN.CNP Service: ? Author Type: Nurse Practitioner Type: Progress Notes Filed: 06/22/2024 16:31 Note Text: HISTORY AND PHYSICAL Bethany Montalvo : 1965 REFERRING PHYSICIAN: Keren Kwon [address] [facility] [address] CHIEF COMPLAINT: Patient presents with: Consult: colonoscopy HPI: Bethany is a 58 year old male referred for endoscopy. Bethany notes due for screening colonoscopy, family hx of colon cancer in father AND personal hx of polyps (2019). Bethany denies abdominal pain.. Bethany denies diarrhea. Bethany denies constipation. Bethany denies a change in bowel habits. Bethany denies melena. Bethany denies bright red blood per rectum. Bethany denies hemorrhoids. Bethany notes a distant history of heartburn. -well controlled on Prilosec Bethany denies dysphagia. Bethany denies a history of ulcers/ peptic ulcer disease. Bethany notes family history of colon issues. Father with colon cancer Bethany has a hx of alcoholism, currently drinking 6, 5.5% beers every other day. Hx of CAD with stent placement in 2018. Denies CP, SOB, dizziness, palpitations, syncope, edema, recent hospitalizations. Last ECHO 2022 with EF of 54% and no ischemia. Follows with [facility]. Bethany notes he is under a lot of stress currently- his partner was discharged early from rehab for an ankle fx and he is her primary caregiver. Bethany has undergone prior endoscopy. Last EGD AND colonoscopy 12/[address] Payton at [facility]. Sedation: MAC EGD Impression: -Normal examined jejunum -Normal examined duodenum -Gastritis. Biopsied. -A few gastric polyps. Resected AND retrieved. -Mildly severe reflux esophagitis. Biopsied. COLONOSCOPY Impression: -The examined portion of the ileum was normal. Biopsied. -The entire examined colon is normal. Biopsied. -Two small polyps at the recto-sigmoid colon, removed with a cold snare. Resected AND retrieved. -The distal rectum and anal verge are normal on retroflexion view. -Diverticulosis in the sigmoid colon. Pathology demonstrated gastric mucosa with no significant pathologic changes, fundic gland polyp, negative testing for H. Pylori. Biopsies from the gastro-esophageal junction showed mild chronic inflammation, negative for intestinal goblet cells, negative for dysplasia. Terminal ileum biopsy showed small bowel mucosa with mild chronic nonspecific inflammation in the lamina propria. Random colonic biopsies showed mild chronic nonspecific inflammation in the lamina propria, negative for active colitis or dysplasia. Polyp tissue demonstrated fragments of tubular adenoma and hyperplastic polyps. Current Outpatient Medications Medication Sig atorvastatin (LIPITOR) 40 mg tablet Take 1 tablet by mouth daily at bedtime. carvedilol (COREG) 3.125 mg tablet Take 1 tablet by mouth two times a day. aspirin, enteric coated (ECOTRIN LOW STRENGTH) 81 mg EC tablet Take 1 tablet by mouth once daily. omeprazole (PRILOSEC) 20 mg capsule Take 1 capsule by mouth daily before breakfast. 1/2 hr before meal. busPIRone (BUSPAR) 5 mg tablet Take 1 tablet by mouth three times a day as needed. magnesium oxide 400 mg magnesium cap Take 1 capsule by mouth three times a day. thiamine (VITAMIN B1) 100 mg tablet Take 1 tablet by mouth once daily. folic acid 1 mg tablet Take 1 tablet by mouth once daily. traZODone (DESYREL) 50 mg tablet Take 1 tablet by mouth at bedtime as needed. cyclobenzaprine (FLEXERIL) 10 mg tablet Take 1 tablet by mouth once daily as needed. No current facility-administered medications for this visit. ALLERGIES: Sudafed [Pseudoephedrine] PAST MEDICAL HISTORY Diagnosis Date Alcohol abuse Anxiety and depression 07/09/2016 Bilateral carotid artery stenosis 01/14/2020 40-59% bilateral. Chronic alcohol abuse Chronic insomnia Coronary artery disease due to lipid rich plaque CSF abnormal GERD (gastroesophageal reflux disease) GERD with esophagitis 01/29/2019 HTN (hypertension) Hypertriglyceridemia Hypomagnesemia Moderate hypertension Renal insufficiency Syncope Tubular adenoma of colon 01/29/2019 PAST SURGICAL HISTORY Procedure Laterality Date COLONOSCOPY FLX DX W/COLLJ SPEC WHEN PFRMD 01/12/2019 Colonoscopy CRANIO/MAXILLO-FACIAL SURGERY 1989 orbital blow out fracture/ [place] ESOPHAGOGASTRODUODENOSCOPY TRANSORAL DIAGNOSTIC 01/12/2019 EGD PTCA SNGL VSSL LC 11/21/2017 JUSTIN left circ TONSILLECTOMY HX TREAT SHOULDERBLADE FRACTURE UPPER GI ENDOSCPY, W/BIOPSY, SNGL OR MULT 01/12/2019 FAMILY HISTORY Problem Relation Age of Onset Psychiatry Mother Heart Mother NM 53 Heart Father NM 51 Colon Cancer Father Social History Tobacco Use Smoking status: Former Current packs/day: 0.00 Average packs/day: 0.5 packs/day for 30.4 years (15.2 ttl pk-yrs) Types: Cigarettes Start date: 12/30/1983 Quit date: 05/30/2014 Years since quittin (more content not included)... [facility] 06-12-2024 Instructions Keren Kwon APRN.CNP - 06/12/2024 3:29 PM EST Get labs. Schedule w/ gen surgery. Schedule carotid ultrasound. Recheck in 6 months. documented in this encounter [facility] 06-12-2024 Note HNO ID: [id number] Author: KEREN KWON APRN.CNP Service: ? Author Type: Nurse Practitioner Type: Progress Notes Filed: 06/12/2024 17:54 Note Text: This is a 58 year old male who presents today with: Patient presents with: Recheck: Medication refills HISTORY OF PRESENT ILLNESS: Bethany Montalvo is a 58 year old male. Patient presents with: Recheck: Medication refills Pt presents today for recheck. He needs refills. Refers that he has been taking his carvedilol, atorvastatin, and ASA. Out of everything else. Anxiety Weaned off of the sertraline. Has been off for about 1 1/2 months. States if he missed a dose of the sertraline, it would affect his ability to work. Still has some buspar that he takes intermittently. Denies SI/HI. ETOH 6 drinks of every other day (5.5% ETOH beer). Trying to work on decreasing ETOH. CAD: Denies any chest pain/SOB. Following with [facility]. Last appt in September. GERD: Stable on PPI. PAST MEDICAL HISTORY: PAST MEDICAL HISTORY Diagnosis Date Alcohol abuse Bilateral carotid artery stenosis 01/14/2020 40-59% bilateral. CSF abnormal GERD (gastroesophageal reflux disease) HTN (hypertension) Syncope PAST SURGICAL HISTORY Procedure Laterality Date COLONOSCOPY BX SINGLE/MULTI 01/12/2019 COLONOSCOPY FLX DX W/COLLJ SPEC WHEN PFRMD 01/12/2019 Colonoscopy CRANIO/MAXILLO-FACIAL SURGERY 1989 orbital blow out fracture/ [place] ESOPHAGOGASTRODUODENOSCOPY TRANSORAL DIAGNOSTIC 01/12/2019 EGD PTCA SNGL VSSL LC 11/21/2017 JUSTIN left circ TONSILLECTOMY HX TREAT SHOULDERBLADE FRACTURE UPPER GI ENDOSCPY, W/BIOPSY, SNGL OR MULT 01/12/2019 ALLERGIES Sudafed [Pseudoephedrine] MEDICATIONS Current Outpatient Medications Medication Sig magnesium oxide 400 mg magnesium cap Take 1 capsule by mouth three times daily. carvedilol (COREG) 12.5 mg tablet Take 1 tablet by mouth twice daily. cyclobenzaprine (FLEXERIL) 10 mg tablet Take 1 tablet by mouth once daily as needed. omeprazole (PRILOSEC) 20 mg capsule Take 1 capsule by mouth daily before breakfast. 1/2 hr before meal. traZODone (DESYREL) 50 mg tablet Take 1 tablet by mouth at bedtime as needed. busPIRone (BUSPAR) 5 mg tablet Take 1 tablet by mouth three times daily as needed. atorvastatin (LIPITOR) 80 mg tablet Take 1 tablet by mouth daily at bedtime. thiamine (VITAMIN B1) 100 mg tablet Take 1 tablet by mouth once daily. sertraline (ZOLOFT) 50 mg tablet One pill by mouth daily aspirin, enteric coated (ECOTRIN LOW STRENGTH) 81 mg EC tablet Take 1 tablet by mouth once daily. amLODIPine (NORVASC) 5 mg tablet Take 1 tablet by mouth once daily. ezetimibe (ZETIA) 10 mg tablet Take 1 tablet by mouth once daily. lisinopril (ZESTRIL) 10 mg tablet Take 1 tablet by mouth once daily. folic acid 1 mg tablet Take 1 tablet by mouth once daily. No current facility-administered medications for this visit. FAMILY HISTORY Problem Relation Age of Onset Psychiatry Mother Heart Mother NM 53 Heart Father NM 51 Colon Cancer Father Social History Tobacco Use Smoking status: Former Current packs/day: 0.00 Average packs/day: 0.5 packs/day for 30.4 years (15.2 ttl pk-yrs) Types: Cigarettes Start date: 12/30/1983 Quit date: 05/30/2014 Years since quittin.0 Smokeless tobacco: Current Types: Chew Tobacco comments: Very few, very infrequently. Father smoked in childhood home. Substance Use Topics Alcohol use: Yes Alcohol/week: 84.0 standard drinks of alcohol Types: 84 Cans of Beer (12oz) per week Comment: Binge drinking at times, worse with stress. Drug use: Yes Types: Marijuana Comment: Occassional marijuana, 03/2014. Huffed spray paint and glue briefly, ages [age]. [facility] in mid to late teens. TO EXAM: BP 130/92 Pulse 82 Resp 16 Wt 97.1 kg (214 lb) SpO2 96% BMI 30.98 kg/m? PHYSICAL EXAM: General Appearance: Well appearing, alert, in no acute distress, well-hydrated, well nourished.. Skin: Skin color, texture, turgor normal, no suspicious rashes or lesions. Head: Normocephalic, no masses, lesions, tenderness or abnormalities. Eyes: Anicteric sclera. Pupils are equally round and reactive to light. Extraocular movements are intact. . Neck: Supple, no adenopathy; thyroid symmetric, normal size, no bruits. Lungs: Lungs clear to auscultation. No wheezing, rhonchi, rales.. Heart: RRR without murmur, gallop, or rubs. No ectopy. Extremities: No deformities, edema, skin discoloration, clubbing or cyanosis. Good capillary refill. . Neurologic: Gait normal ASSESSMENT/PLAN: 1. Coronary artery disease due to lipid rich plaque - ICD9: 414.00, 414.3, ICD10: I25.10, I25.83 (primary diagnosis) Stable. Continue per cardiology. - ATORVASTATIN 40 MG TABLET - CARVEDILOL 3.125 MG TABLET - ASPIRIN 81 MG TABLET,DELAYED RELEASE 2. Encounter for immunization - ICD9: V03.89, ICD10: Z23 - INFLUENZA VACCINE, AGE 6MO-64YR, TRIVALENT (more content not included)... [facility] 06-12-2024 History of Present illness Narrative This is a 58 year old male who presents today with: Patient presents with: Recheck: Medication refills HISTORY OF PRESENT ILLNESS: Bethany Montalvo is a 58 year old male. Patient presents with: Recheck: Medication refills Pt presents today for recheck. He needs refills. Refers that he has been taking his carvedilol, atorvastatin, and ASA. Out of everything else. Anxiety Weaned off of the sertraline. Has been off for about 1 1/2 months. States if he missed a dose of the sertraline, it would affect his ability to work. Still has some buspar that he takes intermittently. Denies SI/HI. ETOH 6 drinks of every other day (5.5% ETOH beer). Trying to work on decreasing ETOH. CAD: Denies any chest pain/SOB. Following with [facility]. Last appt in September. GERD: Stable on PPI. PAST MEDICAL HISTORY: PAST MEDICAL HISTORY Diagnosis Date Alcohol abuse Bilateral carotid artery stenosis 01/14/2020 40-59% bilateral. CSF abnormal GERD (gastroesophageal reflux disease) HTN (hypertension) Syncope PAST SURGICAL HISTORY Procedure Laterality Date COLONOSCOPY BX SINGLE/MULTI 01/12/2019 COLONOSCOPY FLX DX W/COLLJ SPEC WHEN PFRMD 01/12/2019 Colonoscopy CRANIO/MAXILLO-FACIAL SURGERY 1989 orbital blow out fracture/ [place] ESOPHAGOGASTRODUODENOSCOPY TRANSORAL DIAGNOSTIC 01/12/2019 EGD PTCA SNGL VSSL LC 11/21/2017 JUSTIN left circ TONSILLECTOMY HX TREAT SHOULDERBLADE FRACTURE UPPER GI ENDOSCPY, W/BIOPSY, SNGL OR MULT 01/12/2019 ALLERGIES Sudafed [Pseudoephedrine] MEDICATIONS Current Outpatient Medications Medication Sig magnesium oxide 400 mg magnesium cap Take 1 capsule by mouth three times daily. carvedilol (COREG) 12.5 mg tablet Take 1 tablet by mouth twice daily. cyclobenzaprine (FLEXERIL) 10 mg tablet Take 1 tablet by mouth once daily as needed. omeprazole (PRILOSEC) 20 mg capsule Take 1 capsule by mouth daily before breakfast. 1/2 hr before meal. traZODone (DESYREL) 50 mg tablet Take 1 tablet by mouth at bedtime as needed. busPIRone (BUSPAR) 5 mg tablet Take 1 tablet by mouth three times daily as needed. atorvastatin (LIPITOR) 80 mg tablet Take 1 tablet by mouth daily at bedtime. thiamine (VITAMIN B1) 100 mg tablet Take 1 tablet by mouth once daily. sertraline (ZOLOFT) 50 mg tablet One pill by mouth daily aspirin, enteric coated (ECOTRIN LOW STRENGTH) 81 mg EC tablet Take 1 tablet by mouth once daily. amLODIPine (NORVASC) 5 mg tablet Take 1 tablet by mouth once daily. ezetimibe (ZETIA) 10 mg tablet Take 1 tablet by mouth once daily. lisinopril (ZESTRIL) 10 mg tablet Take 1 tablet by mouth once daily. folic acid 1 mg tablet Take 1 tablet by mouth once daily. No current facility-administered medications for this visit. FAMILY HISTORY Problem Relation Age of Onset Psychiatry Mother Heart Mother NM 53 Heart Father NM 51 Colon Cancer Father Social History Tobacco Use Smoking status: Former Current packs/day: 0.00 Average packs/day: 0.5 packs/day for 30.4 years (15.2 ttl pk-yrs) Types: Cigarettes Start date: 12/30/1983 Quit date: 05/30/2014 Years since quittin.0 Smokeless tobacco: Current Types: Chew Tobacco comments: Very few, very infrequently. Father smoked in childhood home. Substance Use Topics Alcohol use: Yes Alcohol/week: 84.0 standard drinks of alcohol Types: 84 Cans of Beer (12oz) per week Comment: Binge drinking at times, worse with stress. Drug use: Yes Types: Marijuana Comment: Occassional marijuana, 03/2014. Huffed spray paint and glue briefly, ages 8-9. [employer] in mid to late teens. TO EXAM: BP 130/92 Pulse 82 Resp 16 Wt 97.1 kg (214 lb) SpO2 96% BMI 30.98 kg/m PHYSICAL EXAM: General Appearance: Well appearing, alert, in no acute distress, well-hydrated, well nourished.. Skin: Skin color, texture, turgor normal, no suspicious rashes or lesions. Head: Normocephalic, no masses, lesions, tenderness or abnormalities. Eyes: Anicteric sclera. Pupils are equally round and reactive to light. Extraocular movements are intact. . Neck: Supple, no adenopathy; thyroid symmetric, normal size, no bruits. Lungs: Lungs clear to auscultation. No wheezing, rhonchi, rales.. Heart: RRR without murmur, gallop, or rubs. No ectopy. Extremities: No deformities, edema, skin discoloration, clubbing or cyanosis. Good capillary refill. . Neurologic: Gait normal ASSESSMENT/PLAN: 1. Coronary artery disease due to lipid rich plaque - ICD9: 414.00, 414.3, ICD10: I25.10, I25.83 (primary diagnosis) Stable. Continue per cardiology. - ATORVASTATIN 40 MG TABLET - CARVEDILOL 3.125 MG TABLET - ASPIRIN 81 MG TABLET,DELAYED RELEASE 2. Encounter for immunization - ICD9: V03.89, ICD10: Z23 - INFLUENZA VACCINE, AGE 6MO-64YR, TRIVALENT (AFLURIA, FLULAVAL, FLUVIRIN, FLUZONE) 3. Hypertriglyceridemia - ICD9: 272.1, ICD10: E78.1 - Control undetermined, due for labs - Continue current medications - Counseled on healthy diet and regular exercise - ATORVASTATIN 40 MG TABLET - LIPID PANEL, NONFASTING 4. GERD without esophagitis - ICD9: 530.81, ICD10: K21.9 Controlled on PPI. - OMEPRAZOLE 20 MG CAPSULE,DELAYED RELEASE 5. Anxiety and depression - ICD9: 300.00, 311, ICD10: F41.9, F32.A Stable. Continue buspar. - BUSPIRONE 5 MG TABLET 6. Hypomagnesemia - ICD9: 275.2, ICD10: E83.42 Due for surveillance. - MAGNESIUM 400 MG ( MAGNESIUM OXIDE) CAPSULE - MAGNESIUM 7. Chronic alcohol abuse - ICD9: 305.00, ICD10: F10.10 Working on decreasing intake. - THIAMINE HCL (VITAMIN B1) 100 MG TABLET - FOLIC ACID 1 MG TABLET - FOLATE, SERUM - VITAMIN B12 - MAGNESIUM 8. Chronic insomnia - ICD9: 780.52, ICD10: F51.04 Refill: - TRAZODONE 50 MG TABLET 9. Acute right-sided low back pain without sciatica - ICD9: 724.2, ICD10: M54.50 Refill: - CYCLOBENZAPRINE 10 MG TABLET 10. Moderate hypertension - ICD9: 401.9, ICD10: I10 Fair control Continue current medication. - COMPLETE BLOOD COUNT AND DIFFERENTIAL - COMPREHENSIVE METABOLIC PANEL 11. Screening for prostate cancer - ICD9: V76.44, ICD10: Z12.5 - PSA/PROSTATE SPECIFIC ANTIGEN SCREENING 12. Screening for colon cancer - ICD9: V76.51, ICD10: Z12.11 - CONSULT TO GENERAL SURGERY 13. Bilateral carotid artery stenosis - ICD9: 433.10, 433.30, ICD10: I65.23 Due for surveillance. - US CAROTID ARTERIES [facility] Discussed treatment plan and patient voices understanding. Patient's questions answered appropriately. Medications and potential side effects were discussed and patient voices understanding. Return to the office as scheduled or as needed for worsening/no improvement. Keren Kwon APRN.DIGITAL SALES MANAGER documented in this encounter [facility] 05-15-2023 Progress note Note Date/Time May 15, 2023 11:24am [facility] Medical Records Department [address] [place] [id number] Progress Note - Hospitalist 05/15/23 1120 MR#: [id number] Acct: [id number] Name: BETHANY MONTALVO Rep #:[id number] : 1965 57 From: Shakeel rendon MD PCP: Keren Kwon CHIEF CONTROLLER-C Status:ADM I N Location: [place] [address] Subjective Subjective CIWA score of 2 this morning Objective Data Objective Data Vital Signs: Vital Signs Temp Pulse Resp BP Pulse Ox O2 Del Method 98.1 F 86 16 169/106 H 98 Room Air 05/15/23 09:23 05/15/23 09:23 05/15/23 09:23 05/15/23 09:23 05/15/23 09:26 05/15/23 09:26 Oxygen Delivery Method Room Air Weight: 193 lb 9.054 oz Body Mass Index (BMI) 27.8 Intake & Output: Intake and Output for Last 24 Hours 05/14/23 05/15/23 05/16/23 03:59 03:59 03:59 Intake Total 3833.33 / 3833.33 3498.33 / 3498.33 650 / 650 Balance 3833.33 / 3833.33 3498.33 / 3498.33 650 / 650 Lab / Micro Data 05/14/23 06:30 05/15/23 06:45 Labs: Laboratory Results - last 24 hr 05/15/23 06:45: Sodium 137, Potassium 3.4 L, Chloride 105, Carbon Dioxide 27.0, Anion Gap 5, BUN 8, Creatinine 1.09, Estim Creat Clear Calc 78.13, Est GFR (MDRD) Af Amer 90, Est GFR (MDRD) Non-Af 74, BUN/Creatinine Ratio 7.3 L, [id number], Calcium 7.7 L, Total Bilirubin 1.60 H, AST 85 H, ALT 87 H, Alkaline Phosphatase 118 H, Total Protein 5.5 L, Albumin 2.7 L, Globulin 2.8, Albumin/Globulin Ratio 1.0 Micro: Microbiology 05/13/23 22:57 Stool Enteric Bacteriology - Final 05/13/23 22:57 Stool C. difficile GDH Antigen & Toxins - Final 05/13/23 22:57 Stool C. difficile DNA Amplification - Final Physical Exam Narrative General: Alert, Oriented x3, Cooperative, No apparent distress HEENT: Atraumatic, PERRLA, EOMI, Normocephalic Oral: Moist Mucosa Neck: Supple, No JVD Lungs: Clear to auscultation, Normal air movement, No rhonchi, No wheeze, No rales Cardiovascular: Regular rate, Regular Rhythm, Normal S1, Normal S2, No murmurs Abdomen: Soft, Non Tender, Non-Distended, No Hepato-splenomegaly Extremities: No edema, Capillary Refill Less than 3 Seconds Skin: No rashes, No breakdown Musculoskeletal: No Tenderness to Palpation of Joints or Extremities Neurological: Cranial nerves II-XII grossly intact, Motor Exam 5/5 strength throughout, Sensory exam intact to light touch and pain Psych/Mental Status: Flat Assessment & Plan Assessment/Plan (1) Alcohol withdrawal: (2) LUZ MARIA (acute kidney injury): (3) Alcoholic hepatitis: (4) Dehydration: (5) Nausea vomiting and diarrhea: (6) Transaminitis: (7) Hyperbilirubinemia: PLAN: Plan 1. Acute alcohol withdrawal with nausea vomiting and elevated LFTs/depression ? His elevated LFTs are likely related to his alcohol abuse as he does have signs of chronic pancreatitis on the CT scan ?Enteric pathogen panel is negative, C. difficile shows colonization with no active toxin production ? Continue with the alcohol withdrawal protocol ? No LUZ MARIA on admission, can discontinue IV fluids ? Transaminitis is improving ? We will have him follow-up with 180 for discharge planning ? Continue with his home mental health 2. CAD status post stent/HTN/HLD ? Blood pressures are stable ? Can resume his home blood pressure medications ? Can likely resume his lisinopril if necessary ? We will monitor and make adjustments as necessary 3. GERD ? Stable ? Continue with PPI DVT: Ambulation Charges/Coding Visit Charges Inpatient E&M: 92156 Subs Hosp L2 05/15/23 1124 <Electronically signed by Shakeel Valera MD> Cosigner Signature (if applicable): CC: ~ Signed [facility] Work Phone: 1(205) 629-326310-24-2023 Progress note Author Shakeel Valera [facility] May 14, 2023 10:17am Note Date/Time May 14, 2023 1 0:17am [facility] Medical Records Department [address] [place] [id number] Progress Note - Hospitalist 05/14/23 1009 MR#: [id number] Acct: [id number] Name: BETHANY MONTALVO Rep #:[id number] : 1965 57 From: Shakeel rendon MD PCP: Keren Kwon NP-C Status:ADM I N [place] [facility] [place] [id number] Subjective Subjective Resting comfortably, no issues overnight. CIWA score of 3 so far is only had 2 bowel movements but he was having some episodes of diarrhea at home Objective Data Objective Data Vital Signs: Vital Signs Temp Pulse Resp BP Pulse Ox O2 Del Method 97.9 F 83 18 143/95 H 96 Room Air 05/14/23 06:42 05/14/23 06:42 05/14/23 06:42 05/14/23 06:42 05/14/23 08:31 05/14/23 08:31 Oxygen Delivery Method Room Air Weight: 193 lb 9.054 oz Body Mass Index (BMI) 27.8 Intake & Output: Intake and Output for Last 24 Hours 05/13/23 05/14/23 05/15/23 03:59 03:59 03:59 Intake Total 3833.33 / 3833.33 300 / 300 Balance 3833.33 / 3833.33 300 / 300 Lab / Micro Data 05/14/23 06:30 05/14/23 06:30 Labs: Laboratory Results - last 24 hr 05/13/23 11:35: WBC 6.4, RBC 4.93, Hgb 16.1, Hct 47.8, MCV 97.0 H, MCH 32.7 H, MCHC 33.7, RDW Std Deviation 44.6 H, RDW Coeff of Ros[place] 12.4, Plt Count 111 L, MPV9.9, Immature Gran % (Auto) 0.300, Neut % (Auto) 72.9 H, Lymph % (Auto) 18.4 L, Kay % (Auto) 7.6, Eos % (Auto) 0.3, Baso % (Auto) 0.5, Absolute Neuts (auto) 4.7, Absolute Lymphs (auto) 1.18, Nucleated RBC % 0, Sodium 138, Potassium 4.2, Chloride 101, Carbon Dioxide 23.0, Anion Gap 14, BUN 11, Creatinine 1.89 H, Estim Creat Clear Calc 45.06, Est GFR (MDRD) Af Amer 48 L, Est GFR (MDRD) Non-Af39 L, BUN/Creatinine Ratio 5.8 L, Glucose 129 H, Lactic Acid 3.5 H*, Calcium 9.2, Total Bilirubin 4.20 H, AST 255 H, ALT 197 H, Alkaline Phosphatase 207 H, Total Protein 8.3 H, Albumin 4.1, Globulin 4.2, Albumin/Globulin Ratio 1.0, Lipase 56, Ethyl Alcohol < 3.0 05/13/23 13:00: Urine Color SEE COMMENT BELOW, Urine Clarity Clear, Urine pH 5.0, Ur Specific [place] 1.020, Urine Protein 100 H, Urine Glucose (UA) Normal, Urine Ketones 15 H, Urine Occult Blood 10 H, Urine Nitrite Negative, Urine Bilirubin 3 H, Urine Urobilinogen 8 H, Ur Leukocyte Esterase 25 H, Urine RBC 0 SEEN, Urine WBC 0-5 SEEN, Ur Squamous Epith Cells 0 SEEN, Urine Bacteria 0 SEEN,Hyaline Casts >100 SEEN, Urine Mucus 0 SEEN 05/13/23 15:50: Lactic Acid 0.4 05/14/23 06:30: WBC 4.5, RBC 3.43 L, Hgb 11.5 L, Hct 34.6 L, MCV 100.9 H, MCH 33.5 H, MCHC 33.2, RDW Std Deviation 46.6 H, RDW Coeff of [place]ale[place] 12.7, Plt Count 75L, MPV 9.8, Immature Gran % (Auto) 0.200, Neut % (Auto) 55.9, Lymph % (Auto) 34.1, Kay % (Auto) 7.6, Eos % (Auto) 1.8, Baso % (Auto) 0.4, Absolute Neuts (auto) 2.5, Absolute Lymphs (auto) 1.52, Nucleated RBC % 0, Platelet Estimate MOD DEC, Sodium 138, Potassium 3.6, Chloride 106, Carbon Dioxide 26.0, Anion Gap6, BUN 12, Creatinine 1.37 H, Estim Creat Clear Calc 62.17, Est GFR (MDRD) Af Amer 69, Est GFR (MDRD) Non-Af 57 L, BUN/Creatinine Ratio 8.8 L, Glucose 105, Calcium 7.6 L, Phosphorus 2.5, Magnesium 1.3 L, Total Bilirubin 2.20 H, AST 148 H, ALT 123 H, Alkaline Phosphatase 144 H, Total Protein 6.3 L, Albumin 3.0 L, Globulin 3.3, Albumin/Globulin Ratio 0.9 Radiography Diagnostic Testing: Radiology Impression Abdomen/Pelvis CT 05/13/23 12:28 IMPRESSION: Diffuse fatty infiltration of the liver. Hepatomegaly. Sludge is seen within the gallbladder lumen. Calcifications within the pancreas suggestive of chronic pancreatitis. Sigmoid diverticulosis. Electronically Signed: Jose F Restrepo MD at 13:51 EDT , Gallbladder Ultrasound 05/13/23 13:57 IMPRESSION: Hepatomegaly and fatty infiltration of the liver. Small gallbladder polyp. Electronically Signed: Jose F Restrepo MD at 15:51 EDT , Physical Exam Narrative General: Alert, Oriented x3, Cooperative, No apparent distress HEENT: Atraumatic, PERRLA, EOMI, Normocephalic Oral: Moist Mucosa Neck: Supple, No JVD Lungs: Clear to auscultation, Normal air movement, No rhonchi, No wheeze, No rales Cardiovascular: Regular rate, Regular Rhythm, Normal S1, Normal S2, No murmurs Abdomen: Soft, Non Tender, Non-Distended, No Hepato-splenomegaly Extremities: No edema, Capillary Refill Less than 3 Seconds Skin: No rashes, No breakdown Musculoskeletal: No Tenderness to Palpation of Joints or Extremities Neurological: Cranial nerves II-XII grossly intact, Motor Exam 5/5 strength throughout, Sensory exam intact to light touch and pain Psych/Mental Status: Flat Assessment & Plan Assessment/Plan (1) Alcohol withdrawal: (2) LUZ MARIA (acute kidney injury): (3) Alcoholic hepatitis: (4) Dehydration: (5) Nausea vomiting and diarrhea: (6) Transaminitis: (7) Hyperbilirubinemia: PLAN: Plan 1. Acute alcohol withdrawal with nausea vomiting and elevated LFTs/depression ? His elevated LFTs are likely related to his alcohol abuse as he does have signs of chronic pancreatitis on the CT scan ? His diarrhea is also likely related to his alcohol abuse though enteric pathogen and C. difficile testing is pending ? Continue with the alcohol withdrawal protocol ? No LUZ MARIA on admission, can discontinue IV fluids ? Transaminitis is improving ? We will have him follow-up with 180 for discharge planning ? Continue with his home mental health 2. CAD status post stent/HTN/HLD ? Blood pressures are stable ? Can resume his home blood pressure medications ? Can likely resume his lisinopril if necessary ? We will monitor and make adjustments as necessary 3. GERD ? Stable ? Continue with PPI DVT: Ambulation Charges/Coding Visit Charges Inpatient E&M: 34990 Subs Hosp L2 05/14/23 1017 <Electronically signed by Shakeel Valera MD> Cosigner Signature (if applicable): CC: ~ Signed [facility] Work Phone: 1(587) 766-577110-23-2023 History and physical note Author Lorena Bennett [facility] May 13, 2023 8:28pm Note Date/Time May 13, 2023 4 :17pm [facility] Medical Records Department [address] [place] [address] H&P Exam - Hospitalist 05/13/23 1615 MR#: [id number] Acct: [id number] Name: BETHANY MONTALVO Rep #:[id number] : 1965 57 From: Lorena Bennett DO PCP: XUAN Armendariz Status:ADM I N Location: [facility] [place] [id number] HPI - General General Date of Admission: 05/13/23 Date of Service: 05/13/23 Chief Complaint: Acute alcohol withdrawal/nausea vomiting HPI Narrative BETHANY MONTALVO, is a 57 M who presented to the emergency department at [facility] on 05/13/2023 with about 3 to 4 days of nausea vomiting and diarrhea. The patient reported that he drinks about 4-6 beers a day of higher percentage alcohol. Typically 8% of 12 ounce beers. He stopped drinking about 3 days ago but quit due to having nausea vomiting and diarrhea. He states he has not been able to keep anything orally down and feels fairly dehydrated. He states just in general he has not felt well. He has no respiratory symptoms. He denies any fever or chills. He has no identifiable sick contacts and lives with a roommate who is not ill. He has no history of C. difficile and has not recently been on antibiotics. He does attest to some mild abdominal pain on thelateral aspects of his abdomen but no focal complaints. He states that it seemsto get worse when he needs to have a bowel movement however this does not help relieve his symptoms. His last bowel movement was prior to presentation and he had 1 emesis while in the emergency department. He does admit to feeling a bit better since he is got some IV fluids. He states its been at least 2 days sincehe has had anything to eat or drink. He has not been able to keep his medications down on a regular basis either. He has quit drinking previously anddid get somewhat shaky but did not have symptoms like this. Given the fact thathis symptoms started before he stopped drinking I do not suspect this is entirely related to alcohol withdrawal. He is interested in the ramp program however. Vital signs on presentation show a temperature of 96.8, heart rate was [id number] however with IV fluids he has trended down and is 105, initial blood pressure was 148/20, respiratory rate initially was 20 but has improved to 18 and oxygen saturations are 94 to 99% on room air. He appears to be mildly hemoconcentrated on his CBC. The only significant abnormality is a platelet count of 111,000 and it does appear he has chronic thrombocytopenia. His chemistry panel reveals a normal BUN however his serum creatinine is elevated at1.89 (baseline serum creatinine appears to run between 1.3 and 1.55). His LFTs are elevated with an AST of 255 and ALT of 197. His alk phos was 207 and his bilirubin is 4.20. His lactic acid initially was elevated at 3.5 however repeatafter hydration has improved to 0.4. His lipase was normal at 56. His urine showed ketones in urine urobilinogen with an elevated urine bilirubin but was otherwise unremarkable for any signs of infection. He does have hyaline casts. Abdominal CT was overall unremarkable for any acute findings. A gallbladder ultrasound was also performed given sludge identified on CT and showed only hepatomegaly with fatty infiltration of liver and a small gallbladder polyp. PFSH Medical History Alcohol abuse Alcohol intoxication Anxiety Asthma Atherosclerosis of coronary artery of [place] heart without angina pectoris Chest pain Chest pain Community acquired pneumonia COPD (chronic obstructive pulmonary disease) COPD exacerbation Depression WILSON (dyspnea on exertion) Fatigue Former smoker GERD (gastroesophageal reflux disease) GI bleed Heart failure Hyperlipidemia Hypertension Hypoxia Irregular heart beat Kidney disease Lung nodule Myocardial infarct NSTEMI (non-ST elevated myocardial infarction) Obesity (BMI 30.0-34.9) Sleep apnea Suicidal ideation Thrombocytopenia TIA (transient ischemic attack) Tobacco use Home Medications omeprazole 20 mg capsule,delayed release 20 mg PO DAILY heart burn 06/17/14 [History Last Taken 01/12/19 10:30 20 MG] aspirin 81 mg tablet,delayed release 81 mg PO DAILY heart 06/17/16 [History Last Taken 11/21/17 04:30] cyclobenzaprine 10 mg tablet 10 mg PO PRN PRN Pain 06/17/16 [History Last Taken 11/21/17 02:00] L.acidoph, paracasei,B. lactis 10 billion cell capsule 1 ea PO DAILY supplement 11/21/17 [History Last Taken 11/20/17 22:00] atorvastatin 80 mg tablet 80 mg PO QHS #30 tabs 12/20/17 [Rx Last Taken Unknown] albuterol sulfate 90 mcg/actuation aerosol inhaler 1 - 2 puff inhalation Q4H PRNPRN Wheezing ##1 05/28/19 [Rx Last Taken Unknown] buspirone 10 mg tablet 10 mg PO TID depression 05/28/19 [History Last Taken Unknown] sertraline 100 mg tablet 50 mg PO DAILY depression 05/28/19 [History Last Taken Unknown] amlodipine 10 mg tablet 10 mg PO DAILY #30 tabs 06/04/19 [Rx Last Taken Unknown] lisinopril 10 mg tablet 10 mg PO DAILY 12/31/19 [History Last Taken Unknown] ondansetron 4 mg disintegrating tablet 4 mg PO Q8H PRN nausea and vomiting #10 tabs 05/12/21 [Rx Last Taken Unknown] carvedilol 12.5 mg tablet 6.25 mg PO BID 12/24/22 [History Last Taken Unknown] nitroglycerin 0.4 mg sublingual tablet 0.4 mg sublingual Q5M PRN Chest Pain #25 tabs 12/24/22 [Rx Last Taken Unknown] trazodone 50 mg tablet 50 mg PO QHS 12/24/22 [History Last Taken Unknown] dicyclomine 10 mg capsule 20 mg (2 x 10 mg) PO Q6H PRN abdominal pain #20 CAPSULES 01/02/23 [Rx Last Taken Unknown] ezetimibe 10 mg tablet 10 mg PO DAILY 04/01/23 [History Last Taken Unknown] magnesium oxide 400 mg (241.3 mg magnesium) tablet 400 mg PO BID 04/01/23 [History Last Taken Unknown] Allergy/AdvReac Type Severity Reaction Status Date / Time No Known Allergies Allergy Verified 05/13/23 10:52 Family History Mother CAD (coronary artery disease) Father CAD (coronary artery disease) Brother CAD (coronary artery disease) Myocardial infarction Sister CAD (coronary artery disease) Surgical History History of coronary artery stent placement History of tonsillectomy Hx of eye surgery Stented coronary artery Social History (Updated 05/13/23 @ 20:[address] Lorena Bennett DO) household members: friend(s) housing: apartment Smoking Status: Former smoker alcohol intake: current alcohol intake frequency: 3 or more drinks per day substance use type: former substance user Date of last use: 8 weeks ago caffeine: Yes Type: coffee Number of servings: 2 what type of physical activity do you participate in: none ROS Constitutional Constitutional: Reports anorexia, malaise and weakness; Denies change in weight,chills, fatigue, fever(s), night sweats or other Eyes Eyes: Denies blurry vision, change in eye color, change in vision, discharge from eye(s), double vision, erythema, eye pain, loss of vision or other ENT HEENT: Denies abnormal hearing, dysphagia, ear pain, epistaxis, headache(s), hearing loss, nasal congestion, nasal discharge, post nasal drip, sinus pressure, sore throat or other Cardiovascular Cardiovascular: Denies chest pain, claudication, dyspnea on exertion, edema, lightheadedness, orthopnea, palpitations, paroxysmal nocturnal dyspnea, rapid heart rate, syncope or other Respiratory/Chest Respiratory/Chest: Denies cough, dyspnea, excessive phlegm production, hemoptysis, productive cough, shortness of breath at rest, shortness of breath with exertion, wheezing or other Gastrointestinal Gastrointestinal: Reports abdominal pain, diarrhea, nausea and vomiting; Denies coffee ground emesis, constipation, dyspepsia, hematemesis, hematochezia, loose stools, melena or other Genitourinary Genitourinary: Reports other Details: Decreased urinary output ; Denies burning urination, difficulty urinating, dysuria, hematuria, nocturia, urinary frequency, urinary hesitancy, urinary incontinence or urinary urgency Musculoskeletal Musculoskeletal: Denies arthralgias, back pain, joint pain, joint stiffness, joint swelling, myalgias, neck pain or other Neurologic Neurologic: Denies abnormal gait, abnormal speech, confusion, disequilibrium, dizziness, focal weakness, headache(s), numbness, paresthesias, seizure-like activity, seizures, syncope, tingling, tremor(s) or other Psychiatric Psychiatric: Denies anxiety, depression, homicidal ideation, suicidal ideation or other Endocrine Endocrinology: Denies change in body appearance, cold intolerance, excessive sweating, heat intolerance, polydipsia, polyuria or other Hematologic/Lymphatic Hematologic/Lymphatic: Denies anemia, easy bleeding, easy bruising, lymphadenopathy or other Allergic/Immunologic Allergic/Immunologic: Denies rhinitis, hives, eczemia, asthma or other Vital Signs Vital Signs Vital Signs: 05/13/23 10:52 05/13/23 11:45 05/13/23 12:44 Temperature 96.8 F L 97.9 F Temperature Source Temporal Oral Pulse Rate 139 H 121 H 112 H Respiratory Rate 20 H 17 14 Blood Pressure 148/120 H 147/119 H 137/91 H Blood Pressure Mean 129 128 106 Pulse Ox 94 99 97 Oxygen Delivery Method Room Air Room Air Room Air 05/13/23 14:32 05/13/23 16:07 Temperature 98.7 F Temperature Source Oral Pulse Rate 105 H 105 H Respiratory Rate 18 18 Blood Pressure 146/86 H 144/94 H Blood Pressure Mean 106 110 Pulse Ox 96 95 Oxygen Delivery Method Room Air Room Air Weight Weight: 89.494 kg Body Mass Index (BMI) 28.3 Physical Exam Const alert, oriented x3, no apparent distress and well nourished Constitutional Narrative: Overweight, middle-aged, ill-appearing, white male, appears sick but nontoxic, pleasant General Appearance: cooperative HEENT normocephalic, head/scalp atraumatic and hearing grossly normal bilaterally HEENT Narrative: Dukas membranes are mildly dry, Mallampati is 3, no thrush, dentition is fair Eyes PERRL, EOMs intact bilaterally and conjunctivae normal Eyes Narrative: No scleral icterus identified Neck no lymphadenopathy and supple Resp normal respiratory effort, no retractions, no use of accessory muscles and clearto auscultation bilaterally Auscultation: Negative for rales, rhonchi or wheezes Cardio regular rhythm, S1 normal heart sound, S2 normal heart sound, no murmurs, no rub, no gallops and no clicks Cardio Narrative: Mildly tachycardic GI normal to inspection, nondistended, normoactive bowel sounds and soft to palpation GI Narrative: Mild diffuse tenderness Extremity no clubbing, cyanosis or edema Extremity Narrative: Pedal pulses are 2+ Skin no rashes or lesions noted, no wounds, skin turgor normal, no jaundice, no petechiae and no mottling Neuro oriented x3, CN's II-XII intact bilaterally, moves all extremities and no focal motor deficits Speech: speech normal Psych Psych Narrative: Affect is mildly flattened patient appears somewhat depressed however appropriate for current medical situation with regards to how he is feeling Results Lab / Micro Data 05/13/23 11:35 05/13/23 11:35 Labs: Laboratory Results - last 24 hr 05/13/23 11:35: WBC 6.4, RBC 4.93, Hgb 16.1, Hct 47.8, MCV 97.0 H, MCH 32.7 H, MCHC 33.7, RDW Std Deviation 44.6 H, RDW Coeff of Rosalee 12.4, Plt Count 111 L, MPV9.9, Immature Gran % (Auto) 0.300, Neut % (Auto) 72.9 H, Lymph % (Auto) 18.4 L, Kay % (Auto) 7.6, Eos % (Auto) 0.3, Baso % (Auto) 0.5, Absolute Neuts (auto) 4.7, Absolute Lymphs (auto) 1.18, Nucleated RBC % 0, Sodium 138, Potassium 4.2, Chloride 101, Carbon Dioxide 23.0, Anion Gap 14, BUN 11, Creatinine 1.89 H, Estim Creat Clear Calc 45.06, Est GFR (MDRD) Af Amer 48 L, Est GFR (MDRD) Non-Af39 L, BUN/Creatinine Ratio 5.8 L, Glucose 129 H, Lactic Acid 3.5 H*, Calcium 9.2, Total Bilirubin 4.20 H, AST 255 H, ALT 197 H, Alkaline Phosphatase 207 H, Total Protein 8.3 H, Albumin 4.1, Globulin 4.2, Albumin/Globulin Ratio 1.0, Lipase 56, Ethyl Alcohol < 3.0 05/13/23 13:00: Urine Color SEE COMMENT BELOW, Urine Clarity Clear, Urine pH 5.0, Ur Specific [place] 1.020, Urine Protein 100 H, Urine Glucose (UA) Normal, Urine Ketones 15 H, Urine Occult Blood 10 H, Urine Nitrite Negative, Urine Bilirubin 3 H, Urine Urobilinogen 8 H, Ur Leukocyte Esterase 25 H, Urine RBC 0 SEEN, Urine WBC 0-5 SEEN, Ur Squamous Epith Cells 0 SEEN, Urine Bacteria 0 SEEN,Hyaline Casts >100 SEEN, Urine Mucus 0 SEEN Radiology Impression Abdomen/Pelvis CT 05/13/23 12:28 IMPRESSION: Diffuse fatty infiltration of the liver. Hepatomegaly. Sludge is seen within the gallbladder lumen. Calcifications within the pancreas suggestive of chronic pancreatitis. Sigmoid diverticulosis. Electronically Signed: Jose F Restrepo MD at 13:51 EDT , Gallbladder Ultrasound 05/13/23 13:57 IMPRESSION: Hepatomegaly and fatty infiltration of the liver. Small gallbladder polyp. Electronically Signed: Jose F Restrepo MD at 15:51 EDT , Assessment & Plan Assessment/Plan (1) Alcohol withdrawal: (2) LUZ MARIA (acute kidney injury): (3) Alcoholic hepatitis: (4) Dehydration: (5) Nausea vomiting and diarrhea: (6) Transaminitis: (7) Hyperbilirubinemia: PLAN: Plan Nausea/vomiting/abdominal pain -We will check for enteric pathogens and C. difficile -CT of the abdomen pelvis as well as ultrasound of the right upper quadrant are unimpressive other than he has hepatosteatosis and a gallbladder polyp -IV fluids at 100 cc/h with LR -As needed antiemetics -Clear liquid diet and advance as tolerated -Highly suspect viral gastroenteritis based on presentation Hyperbilirubinemia/transaminitis -Significant elevations may be related to alcohol use and dehydration -We will trend -Patient does have documented history of substance abuse so if these do not improve or resolved may want to consider checking hepatitis panel -Ultrasound shows hepatosteatosis LUZ MARIA on CKD stage IIIa secondary to dehydration -Baseline serum creatinine seems to run between 1.3 and 1.5 -IV hydration as above -Serum creatinine admission was 1.89 -Hold home lisinopril for now and reinitiate once renal function improves -Avoid nephrotoxins as able Lactic acidosis -Initially 3.5 but responded well to fluid boluses -Suspect related to acute dehydration Alcohol abuse with pending withdrawal -Patient does have some symptoms consistent with alcohol withdrawal -Admits to drinking 4-6 beers daily and does tremor if he does not drink howeveris never had full-blown detox -Patient does drink higher alcohol percentage beer -As needed medication for symptom management -Has never been through alcohol detox previously -Phenobarbital taper -Thiamine and folate -180 consultation CAD/HPL/HTN -History of previous coronary stent -Continue home amlodipine -Continue home aspirin -Continue home neck-continue home carvedilol next continue home Zetia -Hold lisinopril with renal function elevation GERD -Continue PPI COPD -I do not see any history of PFTs however he does have a documented history of COPD -Unclear if these were done elsewhere -Continue home inhalers -Would recommend outpatient follow-up for PFTs if not previously been done -Patient does have positive history of tobacco History of tobacco abuse -Remote -Recommend ongoing cessation Depression -Continue home medication DVT prophylaxis -Low risk -Recommend early ambulation protocol CODE STATUS Full code Charges/Coding Visit Charges Inpatient E&M: 63405 Init Hosp L2 05/13/232027 <Electronically signed by Lorena Bennett DO> Cosigner Signature (if applicable): CC: XUAN Kwon; Dr. Lorena Bennett DO~ Signed [facility] Work Phone: 1(894) 722-174610-23-2023 Discharge summary Author Maggy [facility] May 13, 2023 5:15pm Note Date/Time May 13, 2023 1 1:19am [facility] Medical Records Department [address] [place] [id number] Emergency Department Summary 05/13/23 MR#: [id number] Acct: [id number] Name: BETHANY MONTALVO Rep #:[id number] : 1965 57 From: Jaun GOVEA PCP: XUAN Armendariz Status:ADM I N Location[place] [facility] [place] [id number] HPI <XUAN Nicole - Last Filed: 05/13/23 16:30> History of Present Illness Chief Complaint: Nausea/Vomiting/Diarrhea Narrative Narrative: Patient is a 57-year-old male with a history of COPD, hypertension, hyperlipidemia, alcohol abuse who presents to the emergency department with 4 days of nausea, vomiting, diarrhea. Patient states he feels dehydrated, he has the shakes. I did ask him if he shakes if he does not drink, he denies. Patient his last drink was Saturday. He states he has pain throughout his entire abdomen especially his lower back. He states that he is dehydrated, he is having muscle cramps and is here for evaluation. [facility] <XUAN Nicole - Last Filed: 05/13/23 16:30> [facility] Medical History Alcohol abuse Alcohol intoxication Atherosclerosis of coronary artery of [place] heart without angina pectoris Chest pain Chest pain Community acquired pneumonia COPD (chronic obstructive pulmonary disease) COPD exacerbation Depression WILSON (dyspnea on exertion) Fatigue Heart failure Hyperlipidemia Hypertension Hypoxia Lung nodule NSTEMI (non-ST elevated myocardial infarction) Obesity (BMI 30.0-34.9) Suicidal ideation Thrombocytopenia Tobacco use Home Medications omeprazole 20 mg capsule,delayed release 20 mg PO DAILY heart burn 06/17/14 [History Last Taken 01/12/19 10:30 20 MG] aspirin 81 mg tablet,delayed release 81 mg PO DAILY heart 06/17/16 [History Last Taken 11/21/17 04:30] cyclobenzaprine 10 mg tablet 10 mg PO PRN PRN Pain 06/17/16 [History Last Taken 11/21/17 02:00] L.acidoph, paracasei,B. lactis 10 billion cell capsule 1 ea PO DAILY supplement 11/21/17 [History Last Taken 11/20/17 22:00] atorvastatin 80 mg tablet 80 mg PO QHS #30 tabs 12/20/17 [Rx Last Taken Unknown] albuterol sulfate 90 mcg/actuation aerosol inhaler 1 - 2 puff inhalation Q4H PRNPRN Wheezing ##1 05/28/19 [Rx Last Taken Unknown] buspirone 10 mg tablet 10 mg PO TID depression 05/28/19 [History Last Taken Unknown] sertraline 100 mg tablet 50 mg PO DAILY depression 05/28/19 [History Last Taken Unknown] amlodipine 10 mg tablet 10 mg PO DAILY #30 tabs 06/04/19 [Rx Last Taken Unknown] lisinopril 10 mg tablet 10 mg PO DAILY 12/31/19 [History Last Taken Unknown] ondansetron 4 mg disintegrating tablet 4 mg PO Q8H PRN nausea and vomiting #10 tabs 05/12/21 [Rx Last Taken Unknown] carvedilol 12.5 mg tablet 6.25 mg PO BID 12/24/22 [History Last Taken Unknown] nitroglycerin 0.4 mg sublingual tablet 0.4 mg sublingual Q5M PRN Chest Pain #25 tabs 12/24/22 [Rx Last Taken Unknown] trazodone 50 mg tablet 50 mg PO QHS 12/24/22 [History Last Taken Unknown] dicyclomine 10 mg capsule 20 mg (2 x 10 mg) PO Q6H PRN abdominal pain #20 CAPSULES 01/02/23 [Rx Last Taken Unknown] ezetimibe 10 mg tablet 10 mg PO DAILY 04/01/23 [History Last Taken Unknown] magnesium oxide 400 mg (241.3 mg magnesium) tablet 400 mg PO BID 04/01/23 [History Last Taken Unknown] Allergy/AdvReac Type Severity Reaction Status Date / Time No Known Allergies Allergy Verified 05/13/23 10:52 Family History Mother CAD (coronary artery disease) Father CAD (coronary artery disease) Brother CAD (coronary artery disease) Myocardial infarction Sister CAD (coronary artery disease) Surgical History History of tonsillectomy Hx of eye surgery Stented coronary artery Social History Smoking Status: Former smoker alcohol intake: former year quit: 2019 substance use type: former substance user Date of last use: 8 weeks ago caffeine: Yes Type: coffee Number of servings: 2 what type of physical activity do you participate in: none ROS <XUAN Nicole - Last Filed: 05/13/23 16:30> ROS ED ROS Narrative Constitutional: Negative for fever, weight loss, weakness. Positive for chills Eyes: Negative for vision loss, vision change, double vision ENT: Negative for any sore throat, ear pain, congestion Cardiovascular: Negative for any chest pain, tightness, palpitations Respiratory: Negative for any cough, sputum production, hemoptysis, dyspnea, dyspnea on exertion, orthopnea Gastrointestinal: Negative for any constipation, blood in stool, blood in vomit. Positive for abdominal pain, nausea and vomiting : Negative for any urinary frequency, dysuria, retention, blood in urine Muscle skeletal: Negative for any muscle joint pain, stiffness, arthralgias, neck pain, back pain. Positive for myalgias, muscle cramps Neurological: Negative for any headache, syncope, numbness or tingling, dizziness Skin: Negative for any rashes, lumps, itching, abrasions, lacerations Psychiatric: Negative for any depression, anxiety, stress, suicidal ideation, homicidal ideation Hematologic: Negative for any easy bruising, excessive bruising, easy bleeding Allergies: Negative for any eczema, hives, rash EXAM <XUAN Nicole - Last Filed: 05/13/23 16:30> Physical Exam Narrative Exam Narrative: Vital signs reviewed. Patient does appear to be in mild distress. Patient does have slight shaking, HEET: Head normocephalic atraumatic, TMs clear bilaterally. Posterior pharynx is clear, dry mucous membranes. Nares clear bilaterally. Neck: Supple with no lymphadenopathy or tenderness. No signs of meningismus, negative jolt sign. Cardiac: Tachycardic rate no murmurs gallops or rubs, equal peripheral pulses bilaterally. Respiratory: Lungs clear to auscultation bilaterally. No chest tenderness. Abdomen: Soft, nondistended. No abdominal bruit or pulsatile masses. No hepatosplenomegaly. Patient has tenderness throughout abdominal exam, some areas there seems to be an extreme response to slight palpation. Active bowel sounds in all quadrants Extremities: No peripheral edema, no signs of gross trauma or deformity. Activefull range of motion of all extremities. Neuro: Cranial nerves II through XII intact, no focal neurological deficits. Skin: Clean dry and intact with no rash, purpura, petechiae, vesicles or pustules. Backs/flank: No CVA tenderness, no midline spinal tenderness, no deformity. Psych: Normal mood and affect. No SI, HI or acute psychosis. Const Vital Signs: 05/13/23 10:52 05/13/23 11:45 05/13/23 12:44 Temperature 96.8 F L 97.9 F Temperature Source Temporal Oral Pulse Rate 139 H 121 H 112 H Respiratory Rate 20 H 17 14 Blood Pressure 148/120 H 147/119 H 137/91 H Blood Pressure Mean 129 128 106 Pulse Ox 94 99 97 Oxygen Delivery Method Room Air Room Air Room Air 05/13/23 14:32 05/13/23 16:07 Temperature 98.7 F Temperature Source Oral Pulse Rate 105 H 105 H Respiratory Rate 18 18 Blood Pressure 146/86 H 144/94 H Blood Pressure Mean 106 110 Pulse Ox 96 95 Oxygen Delivery Method Room Air Room Air <Dr. Maggy Tucker DO - Last Filed: 05/13/23 17:15> Physical Exam Const Vital Signs: 05/13/23 10:52 05/13/23 11:45 05/13/23 12:44 Temperature 96.8 F L 97.9 F Temperature Source Temporal Oral Pulse Rate 139 H 121 H 112 H Respiratory Rate 20 H 17 14 Blood Pressure 148/120 H 147/119 H 137/91 H Blood Pressure Mean 129 128 106 Pulse Ox 94 99 97 Oxygen Delivery Method Room Air Room Air Room Air 05/13/23 14:32 05/13/23 16:07 Temperature 98.7 F Temperature Source Oral Pulse Rate 105 H 105 H Respiratory Rate 18 18 Blood Pressure 146/86 H 144/94 H Blood Pressure Mean 106 110 Pulse Ox 96 95 Oxygen Delivery Method Room Air Room Air MDM <XUAN Nicole - Last Filed: 05/13/23 16:30> [facility] Lab Data Labs: Laboratory Results - last 24 hr 05/13/23 05/13/23 05/13/23 11:35 13:00 15:50 WBC 6.4 RBC 4.93 Hgb 16.1 Hct 47.8 MCV 97.0 H MCH 32.7 H MCHC 33.7 RDW Std Deviation 44.6 H RDW Coeff of [place]ale[place] 12.4 Plt Count 111 L MPV 9.9 Immature Gran % (Auto) 0.300 Neut % (Auto) 72.9 H Lymph % (Auto) 18.4 L Kay % (Auto) 7.6 Eos % (Auto) 0.3 Baso % (Auto) 0.5 Absolute Neuts (auto) 4.7 Absolute Lymphs (auto) 1.18 Nucleated RBC % 0 Sodium 138 Potassium 4.2 Chloride 101 Carbon Dioxide 23.0 Anion Gap 14 BUN 11 Creatinine 1.89 H Estim Creat Clear Calc 45.06 Est GFR (MDRD) Af Amer 48 L Est GFR (MDRD) Non-Af 39 L BUN/Creatinine Ratio 5.8 L Glucose 129 H Lactic Acid 3.5 H* 0.4 Calcium 9.2 Total Bilirubin 4.20 H AST 255 H ALT 197 H Alkaline Phosphatase 207 H Total Protein 8.3 H Albumin 4.1 Globulin 4.2 Albumin/Globulin Ratio 1.0 Lipase 56 Urine Color SEE COMMENT BELOW Urine Clarity Clear Urine pH 5.0 Ur Specific [place] 1.020 Urine Protein 100 H Urine Glucose (UA) Normal Urine Ketones 15 H Urine Occult Blood 10 H Urine Nitrite Negative Urine Bilirubin 3 H Urine Urobilinogen 8 H Ur Leukocyte Esterase 25 H Urine RBC 0 SEEN Urine WBC 0-5 SEEN Ur Squamous Epith Cells 0 SEEN Urine Bacteria 0 SEEN Hyaline Casts >100 SEEN Urine Mucus 0 SEEN Ethyl Alcohol < 3.0 Radiography Diagnostic Testing: Clinical Impression(s) from Imaging Studies Abdomen/Pelvis CT 05/13/23 12:28 IMPRESSION: Diffuse fatty infiltration of the liver. Hepatomegaly. Sludge is seen within the gallbladder lumen. Calcifications within the pancreas suggestive of chronic pancreatitis. Sigmoid diverticulosis. Electronically Signed: Jose F Restrepo MD at 13:51 EDT , Gallbladder Ultrasound 05/13/23 13:57 IMPRESSION: Hepatomegaly and fatty infiltration of the liver. Small gallbladder polyp. Electronically Signed: Jose F Restrepo MD at 15:51 EDT , Treatment and Re-Evaluation :: Patient is in no obvious respiratory distress, patient does have some shaking full body, this could be secondary to alcohol withdrawal. Patient did have somepain in his abdomen, does not look dry, dehydrated on initial evaluation. Patient is will receive multiple laboratory values including CBC, CMP, lipase, lactic, alcohol, patient will receive CT scan of the abdomen pelvis. Differential diagnosis includes alcohol withdrawal, gastroenteritis, pancreatitis, diverticulitis. Patient received 2 L of normal saline, IV Zofran,Ativan, fentanyl. Patient's laboratory values show a normal CBC, patient's chemistries showed somedehydration with acute kidney insufficiency with a creatinine of 1.89, on April 01, 2023, the creatinine is 1.32, this is significant drop. Patient'slactic acid was 3.5, patient's alcohol was negative. Patient does have some transaminitis with elevated bilirubin with a total bilirubin of 4.20, AST of 255, ALT of 197 with an alkaline phosphatase of 207. Patient did receive a CT scan of the abdomen pelvis, this was without contrast secondary to the renal sufficiency. This showed diffuse fatty infiltration of liver. Hepatomegaly a, sludge is seen within the gallbladder lumen. Calcifications within the pancreaswhich is of chronic pancreatitis. Patient then received a right upper quadrant ultrasound. This showed hepatomegaly, small gallbladder polyp. At this time, patient will need to be admitted to the hospital for dehydration, alcohol withdrawal. I spoke with hospitalist, patient will be admitted for full MedSurg. <Dr. Maggy Tucker, DO - Last Filed: 05/13/23 17:15> [facility] Lab Data Labs: Laboratory Results - last 24 hr 05/13/23 05/13/23 05/13/23 11:35 13:00 15:50 WBC 6.4 RBC 4.93 Hgb 16.1 Hct 47.8 MCV 97.0 H MCH 32.7 H MCHC 33.7 RDW Std Deviation 44.6 H RDW Coeff of [place] 12.4 Plt Count 111 L MPV 9.9 Immature Gran % (Auto) 0.300 Neut % (Auto) 72.9 H Lymph % (Auto) 18.4 L Kay % (Auto) 7.6 Eos % (Auto) 0.3 Baso % (Auto) 0.5 Absolute Neuts (auto) 4.7 Absolute Lymphs (auto) 1.18 Nucleated RBC % 0 Sodium 138 Potassium 4.2 Chloride 101 Carbon Dioxide 23.0 Anion Gap 14 BUN 11 Creatinine 1.89 H Estim Creat Clear Calc 45.06 Est GFR (MDRD) Af Amer 48 L Est GFR (MDRD) Non-Af 39 L BUN/Creatinine Ratio 5.8 L Glucose 129 H Lactic Acid 3.5 H* 0.4 Calcium 9.2 Total Bilirubin 4.20 H AST 255 H ALT 197 H Alkaline Phosphatase 207 H Total Protein 8.3 H Albumin 4.1 Globulin 4.2 Albumin/Globulin Ratio 1.0 Lipase 56 Urine Color SEE COMMENT BELOW Urine Clarity Clear Urine pH 5.0 Ur Specific [place] 1.020 Urine Protein 100 H Urine Glucose (UA) Normal Urine Ketones 15 H Urine Occult Blood 10 H Urine Nitrite Negative Urine Bilirubin 3 H Urine Urobilinogen 8 H Ur Leukocyte Esterase 25 H Urine RBC 0 SEEN Urine WBC 0-5 SEEN Ur Squamous Epith Cells 0 SEEN Urine Bacteria 0 SEEN Hyaline Casts >100 SEEN Urine Mucus 0 SEEN Ethyl Alcohol < 3.0 Radiography Diagnostic Testing: Clinical Impression(s) from Imaging Studies Abdomen/Pelvis CT 05/13/23 12:28 IMPRESSION: Diffuse fatty infiltration of the liver. Hepatomegaly. Sludge is seen within the gallbladder lumen. Calcifications within the pancreas suggestive of chronic pancreatitis. Sigmoid diverticulosis. Electronically Signed: Jose F Restrepo MD at 13:51 EDT , Gallbladder Ultrasound 05/13/23 13:57 IMPRESSION: Hepatomegaly and fatty infiltration of the liver. Small gallbladder polyp. Electronically Signed: Jose F Restrepo MD at 15:51 EDT , Treatment and Re-Evaluation :: Patient is in no obvious respiratory distress, patient does have some shaking full body, this could be secondary to alcohol withdrawal. Patient did have somepain in his abdomen, does not look dry, dehydrated on initial evaluation. Patient is will receive multiple laboratory values including CBC, CMP, lipase, lactic, alcohol, patient will receive CT scan of the abdomen pelvis. Differential diagnosis includes alcohol withdrawal, gastroenteritis, pancreatitis, diverticulitis. Patient received 2 L of normal saline, IV Zofran,Ativan, fentanyl. Patient's laboratory values show a normal CBC, patient's chemistries showed somedehydration with acute kidney insufficiency with a creatinine of 1.89, on April 01, 2023, the creatinine is 1.32, this is significant drop. Patient'slactic acid was 3.5, patient's alcohol was negative. Patient does have some transaminitis with elevated bilirubin with a total bilirubin of 4.20, AST of 255, ALT of 197 with an alkaline phosphatase of 207. Patient did receive a CT scan of the abdomen pelvis, this was without contrast secondary to the renal sufficiency. This showed diffuse fatty infiltration of liver. Hepatomegaly a, sludge is seen within the gallbladder lumen. Calcifications within the pancreaswhich is of chronic pancreatitis. Patient then received a right upper quadrant ultrasound. This showed hepatomegaly, small gallbladder polyp. At this time, patient will need to be admitted to the hospital for dehydration, alcohol withdrawal. I spoke with hospitalist, patient will be admitted for full MedSurg. I have personally performed a face to face assessment of the patient and have reviewed the MARY Note. I performed a substantive portion of the visit including all aspects of the following. My short findings include: History is patient is a 57-year-old male with history of coronary artery disease, heart failure, alcoholism, alcoholic hepatitis and obesity presenting with worsening nausea, vomiting, lower abdominal pain and tremor. On arrival patient is mildly hypertensive, tachycardic and tremulous. Clinically appears dehydrated however and also concerned about acute alcohol withdraw since he has not been able to drink for couple days due to his GI symptoms. Differential forthe GI symptoms include but are not limited to pancreatitis, diverticulitis and bowel obstruction. Patient does have improvement in symptoms with IV fluids, fentanyl and Ativan. He is mentating appropriately. He is amenable to considering inpatient detox aswell at this time. He does have an LUZ MARIA and worsening transaminitis. I suspect this worsening transaminitis and bilirubin is actually more associated with his vomiting and dehydration. He does not have findings distant with acute cholecystitis or choledocholithiasis on his CT/ultrasound. CT also does not show any findings consistent with acute diverticulitis or other acute abnormality. Patient will be admitted for further hydration and treatment of alcohol withdrawal symptoms. He is agreeable this plan of care. Case discussedwith Dr. Bennett for admission. Other additions or changes: [None] Discharge Plan Dx/Rx/DC Orders Clinical Impression: Acute dehydration, Alcohol withdrawal, Abdominal pain, Acidosis, lactic Disposition Disposition: Acute Care Hospital [facility] Discharge Date/Time: 05/13/23 17:11 What to do if you have Problems For any increased pain, shortness of breath, bleeding, nausea or vomiting, chest pain, or any unexpected problems, contact your Primary Care Provider. Call [facility] ([phone]) or report to the closest Emergency Room. Call 911 if necessary. 05/13/23 1630 <Electronically signed by Jaun GOVEA> Cosigner Signature (if applicable): 05/13/23 1715 <Electronically signed by Maggy Tucker DO> CC: XUAN Kwon ~ Signed [facility] Work Phone: [phone] 235-676709-19-2023 Miscellaneous Notes* Telephone Encounter - India Coleman RN - 04/09/2023 1:22 PM EDT Pt called and is notified of providers results and instructions. Pt voices understanding. Provider message from lab results: You tested negative for COVID and Influenza. If you were tested because you were having symptoms, please monitor these symptoms and for any worrisome symptoms, please call your primary care provideror schedule a visit with [facility]. India Coleman RN documented in this encounterBl[facility] History of Present illness Narrative* Henry Morrow MD - 04/08/2023 9:35 AM EDT Patient presents with: Cough: ST, diarrhea, bodyaches x2 days HPI: Feeling sick for 3 days. His roommate is sick with URI symptoms also. Positive symptoms: Cough, Sore throat, Body Aches, Diarrhea, some Shortness of breath/Wheezing, Nasal Congestion, Rhinorrhea, Chills, Malaise, Fatigue, Headache, Nausea, food does not taste right Negative symptoms: Chest pain, OTC: Cold Medicine coricidin HBP PAST MEDICAL HISTORY Diagnosis Date Alcohol abuse Bilateral carotid artery stenosis 01/14/2020 40-59% bilateral. CSF abnormal GERD (gastroesophageal reflux disease) HTN (hypertension) Syncope MEDICATIONS: Current Outpatient Medications Medication Sig magnesium oxide 400 mg magnesium cap Take 1 capsule by mouth three times daily. carvedilol (COREG) 12.5 mg tablet Take 1 tablet by mouth twice daily. amLODIPine (NORVASC) 5 mg tablet Take 1 tablet by mouth once daily. cyclobenzaprine (FLEXERIL) 10 mg tablet Take 1 tablet by mouth once daily as needed. ezetimibe (ZETIA) 10 mg tablet Take 1 tablet by mouth once daily. omeprazole (PRILOSEC) 20 mg capsule Take 1 capsule by mouth daily before breakfast. 1/2 hr before meal. lisinopril (ZESTRIL) 10 mg tablet Take 1 tablet by mouth once daily. traZODone (DESYREL) 50 mg tablet Take 1 tablet by mouth at bedtime as needed. busPIRone (BUSPAR) 5 mg tablet Take 1 tablet by mouth three times daily as needed. atorvastatin (LIPITOR) 80 mg tablet Take 1 tablet by mouth daily at bedtime. thiamine (VITAMIN B1) 100 mg tablet Take 1 tablet by mouth once daily. sertraline (ZOLOFT) 50 mg tablet One pill by mouth daily folic acid 1 mg tablet Take 1 tablet by mouth once daily. aspirin, enteric coated (ECOTRIN LOW STRENGTH) 81 mg EC tablet Take 1 tablet by mouth once daily. No current facility-administered medications for this visit. ALLERGIES: ALLERGIES Allergen Reactions Sudafed [Pseudoephe* Other: See Comments Prostate infection VITALS: BP 198/119 Pulse 89 Temp 36.9 C (98.5 F) Resp 20 Wt 94.3 kg (207 lb 12.8 oz) SpO2 98% BMI 30.09 kg/m Last 4 Encounter BP Readings: Date: BP: 04/08/2023 198/119 01/21/2023 159/103[CHARLENE BP[ 11/05/2022 158/102 06/25/2022 122/72 PHYSICAL EXAM: GEN: mildly ill appearing, tremulous HEENT: PERRL, EOMI, conjunctiva injected Ears: canals clear. TMs without erythema, bulge, or effusion Sinuses: pressure over maxillary sinuses Throat: moist mucous membranes, mild erythema, no exudate Neck: supple, no thyromegaly, no lymphadenopathy HEART: regular rate and rhythm, no murmurs LUNGS: clear to auscultation, no wheezes or crackles, no increased WOB Component Latest Ref Rng & Units 11/05/2022 eGFR >=60 mL/min/1.73m 77 ASSESSMENT/PLAN: 1. Influenza-like illness - ICD9: 487.1, ICD10: J11.1 (primary diagnosis) - suspect viral URI, differential includes COVID-19. - Discussed supportive care treatment with home isolation, rest, cold medicine, and analgesia. - Red flags to seek further treatment include chest pain, shortness of breath, and lethargy; in theER if severe. - COVID & INFLUENZA A/B NAAT, ROUTINE - He would like to take antiviral medication if positive for COVID. He will hold lipitor and trazodone tonight and continue to hold for 8 days if prescribed paxlovid. 2. Hypertension, essential - ICD9: 401.9, ICD10: I10 - Uncontrolled - Home blood pressure readings are being recorded and sent to cardiology. Henry Morrow MD documented in this encounterBl[facility] Procedure [facility]07-03-2023 Instructions* Patient Instructions* Keren Kwon APRN.CNP - 01/21/2023 3:12 PM EDT Get labwork. Restart the amlodipine 5 mg daily. Reschedule the stress testing. Recheck in a month. documented in this encounterBl[facility] History of Present illness Narrative* Keren Kwon APRN.CNP - 01/21/2023 2:49 PM EDT This is a 57 year old male who presents today with: Patient presents with: ER F/U: [facility] ER 01/02/23 dx: viral gastroenteritis; pulmonary nodule HISTORY OF PRESENT ILLNESS: Bethany Montalvo is a 57 year old male. Patient presents with: ER F/U: [facility] ER 01/02/23 dx: viral gastroenteritis; pulmonary nodule Pt presents today for ER follow-up. Refers that he went to the ER on 01/02/23 after 3 days fof vomiting, abdominal pain, left sided chest sharp non pleuritic pain, a little trouble breathing , and some wheezing. Had some dyspnea and diarrhea. Had CT of the abdomen/pelvis. No diverticulitis. Chest xray -- possible pulmonary nodule. Mild elevated creatinine on the labs. Given dicyclomine and zofran, as well as fluids. He did follow-up with Dr. Leon. He had a CT done on 01/17 -- no nodule noted. He has a return visit with Dr. Leon in February. Refers that he has been following with cardiology. Continues to get a left sided chest pain. Was supposed to have a stress test this morning, but couldn't make it. Continues to drink, but reports less, but did not give an amount. PAST MEDICAL HISTORY: PAST MEDICAL HISTORY Diagnosis Date Alcohol abuse Bilateral carotid artery stenosis 01/14/2020 40-59% bilateral. CSF abnormal GERD (gastroesophageal reflux disease) HTN (hypertension) Syncope PAST SURGICAL HISTORY Procedure Laterality Date COLONOSCOPY BX SINGLE/MULTI 01/12/2019 COLONOSCOPY FLX DX W/COLLJ SPEC WHEN PFRMD 01/12/2019 Colonoscopy CRANIO/MAXILLO-FACIAL SURGERY 1989 orbital blow out fracture/ [place] ESOPHAGOGASTRODUODENOSCOPY TRANSORAL DIAGNOSTIC 01/12/2019 EGD PTCA SNGL VSSL LC 11/21/2017 JUSTIN left circ TONSILLECTOMY HX TREAT SHOULDERBLADE FRACTURE UPPER GI ENDOSCPY, W/BIOPSY, SNGL OR MULT 01/12/2019 ALLERGIES Sudafed [Pseudoephedrine] MEDICATIONS Current Outpatient Medications Medication Sig magnesium oxide 400 mg magnesium cap Take 1 capsule by mouth once daily. ezetimibe (ZETIA) 10 mg tablet Take 1 tablet by mouth once daily. omeprazole (PRILOSEC) 20 mg capsule Take 1 capsule by mouth daily before breakfast. 1/2 hr before meal. cyclobenzaprine (FLEXERIL) 10 mg tablet Take 1 tablet by mouth once daily as needed. lisinopril (ZESTRIL) 10 mg tablet Take 1 tablet by mouth once daily. traZODone (DESYREL) 50 mg tablet Take 1 tablet by mouth at bedtime as needed. busPIRone (BUSPAR) 5 mg tablet Take 1 tablet by mouth three times daily as needed. atorvastatin (LIPITOR) 80 mg tablet Take 1 tablet by mouth daily at bedtime. thiamine (VITAMIN B1) 100 mg tablet Take 1 tablet by mouth once daily. sertraline (ZOLOFT) 50 mg tablet One pill by mouth daily carvedilol (COREG) 3.125 mg tablet Take 1 tablet by mouth twice daily. folic acid 1 mg tablet Take 1 tablet by mouth once daily. aspirin, enteric coated (ECOTRIN LOW STRENGTH) 81 mg EC tablet Take 1 tablet by mouth once daily. No current facility-administered medications for this visit. FAMILY HISTORY Problem Relation Age of Onset Psychiatry Mother Heart Mother NM 53 Heart Father NM 51 Colon Cancer Father Social History Tobacco Use Smoking status: Former Packs/day: 0.50 Types: Cigarettes Start date: 12/30/1983 Quit date: 05/30/2014 Years since quittin.6 Smokeless tobacco: Current Types: Chew Tobacco comments: Very few, very infrequently. Father smoked in childhood home. Substance Use Topics Alcohol use: Yes Alcohol/week: 210.0 standard drinks Types: 84 Cans of Beer (12oz) per week Comment: Binge drinking at times, worse with stress. Drug use: Yes Types: Marijuana Comment: Occassional marijuana, 03/2014. Huffed spray paint and glue briefly, ages [age]. Whippets inmid to late teens. TO EXAM: BP 186/110 Pulse 93 Resp 16 Wt 92.5 kg (204 lb) SpO2 97% BMI 29.54 kg/m 159/103 PHYSICAL EXAM: General Appearance: Well appearing, alert, in no acute distress, well-hydrated, well nourished.. Skin: Skin color, texture, turgor normal, no suspicious rashes or lesions. Head: Normocephalic, no masses, lesions, tenderness or abnormalities. Eyes: Anicteric sclera. Pupils are equally round and reactive to light. Extraocular movements are intact. . Lungs: Lungs clear to auscultation. No wheezing, rhonchi, rales.. Heart: RRR without murmur, gallop, or rubs. No ectopy. Extremities: No deformities, edema, skin discoloration, clubbing or cyanosis. Good capillary refill. . Neurologic: Gait normal. ASSESSMENT/PLAN: 1. Chest pain, unspecified type - ICD9: 786.50, ICD10: R07.9 (primary diagnosis) Pt encouraged to reschedule his stress test, per cardiology. - CARVEDILOL 12.5 MG TABLET 2. 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 - ICD9: V45.82, ICD10: Z95.5 - CARVEDILOL 12.5 MG TABLET 3. Acute right-sided low back pain without sciatica - ICD9: 724.2, ICD10: M54.50 - CYCLOBENZAPRINE 10 MG TABLET 4. Hypertension, essential - ICD9: 401.9, ICD10: I10 - Uncontrolled - Start amlodipine - Recommend home blood pressure monitoring, to bring results to next visit - Encouraged sodium restriction, DASH or Mediterranean diet - Recommend regular aerobic exercise - AMLODIPINE 5 MG TABLET 5. Thrombocytopenia (HCC) - ICD9: 287.5, ICD10: D69.6 - CBC + DIFF - FOLATE SERUM 6. Chronic alcohol abuse - ICD9: 305.00, ICD10: F10.10 Cessation encouraged. - VITAMIN B12 BLOOD Discussed treatment plan and patient voices understanding. Patient's questions answered appropriately. Medications and potential side effects were discussed and patient voices understanding. Return to the office as scheduled or as needed for worsening/no improvement. Keren Kwon APRN.CHRISTIANA documented in this encounterBl[facility] Miscellaneous Notes* Telephone Encounter - Richelle Demarco LPN - 12/26/2022 5:40 PM EDT Patient notified of results, verbalizes understanding of instructions. Pt stated he has been drinking above moderate alcohol. And is taking his magnesium daily. iRchelle Demarco LPN * Telephone Encounter - Keren Kwon APRN.CNP - 12/26/2022 5:25 PM EDT Can please let patient know that I received his lab results. His liver enzymes were elevated. How has alcohol intake been? His magnesium was also low. Has he been taking his magnesium daily? If so, let's please increase this to twice daily. Lets have him schedule a liver ultrasound. Please repeat labs next week. Orders are in. documented in this encounterBlanchard [facility]04-17-2023 Instructions* Patient Instructions* Keren Kwon APRN.CNP - 11/05/2022 2:12 PM EDT Get fasting labwork. Follow-up with cardiology. Restart lisinopril. Recheck in a month. Schedule carotid ultrasound. Check with insurance re: shingrix and pneumonia shot. documented in this encounterBlanchard [facility]04-17-2023 History of Present illness Narrative* Keren Kwon APRN.CHRISTIANA - 11/05/2022 1:42 PM EDT This is a 56 year old male who presents today with: Patient presents with: Recheck: Medication follow up/refills HISTORY OF PRESENT ILLNESS: Bethany Montalvo is a 56 year old male. Patient presents with: Recheck: Medication follow up/refills Pt presents today for recheck. ETOH abuse Admits that he started drinking again. Refers detoxed at home this weekend. Refers that he is staying with a friend. 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 Likes his job -- has been there since last year. Trying to get back on track. Planning on attending AA meetings. CAD Has appt 12/21 with [facility]. No new heartpain/sob. HTN: Patient is compliant with meds Yes -- but out of lisinopril X 1 week. Monitors bp at home: occasionally at home. Denies side effects: Yes. Chest pain: occasionally -- refers was having some anxiety. Refers heart pain not very often. Dyspnea: occasionally. Edema: No. Palpitations: No. Syncope: occasionally. Headache: Yes. Dizziness: difficult to answer d/t usually intoxicated. . Mood: Hasn't been following with psychiatry. Refers that he has been weaning off the sertraline and buspar. Taking 1/2 tab every other day. Refers mood has been good. PAST MEDICAL HISTORY: PAST MEDICAL HISTORY Diagnosis Date Alcohol abuse Bilateral carotid artery stenosis 01/14/2020 40-59% bilateral. CSF abnormal GERD (gastroesophageal reflux disease) HTN (hypertension) Syncope PAST SURGICAL HISTORY Procedure Laterality Date COLONOSCOPY BX SINGLE/MULTI 01/12/2019 COLONOSCOPY FLX DX W/COLLJ SPEC WHEN PFRMD 01/12/2019 Colonoscopy CRANIO/MAXILLO-FACIAL SURGERY 1989 orbital blow out fracture/ [place] ESOPHAGOGASTRODUODENOSCOPY TRANSORAL DIAGNOSTIC 01/12/2019 EGD PTCA SNGL VSSL LC 11/21/2017 JUSTIN left circ TONSILLECTOMY HX TREAT SHOULDERBLADE FRACTURE UPPER GI ENDOSCPY, W/BIOPSY, SNGL OR MULT 01/12/2019 ALLERGIES Sudafed [Pseudoephedrine] MEDICATIONS Current Outpatient Medications Medication Sig lisinopril (ZESTRIL, PRINIVIL) 10 mg tablet Take 1 tablet by mouth once daily. cyclobenzaprine (FLEXERIL) 10 mg tablet Take 1 tablet by mouth once daily as needed. busPIRone (BUSPAR) 5 mg tablet Take 1 tablet by mouth three times daily as needed. ezetimibe (ZETIA) 10 mg tablet Take 1 tablet by mouth once daily. atorvastatin (LIPITOR) 80 mg tablet Take 1 tablet by mouth daily at bedtime. thiamine (VITAMIN B1) 100 mg tablet Take 1 tablet by mouth once daily. sertraline (ZOLOFT) 50 mg tablet One pill by mouth daily carvedilol (COREG) 3.125 mg tablet Take 1 tablet by mouth twice daily. traZODone (DESYREL) 50 mg tablet Take 1 tablet by mouth at bedtime as needed. folic acid 1 mg tablet Take 1 tablet by mouth once daily. omeprazole (PRILOSEC) 20 mg capsule Take 1 capsule by mouth daily before breakfast. 1/2 hr before meal. aspirin, enteric coated (ECOTRIN LOW STRENGTH) 81 mg EC tablet Take 1 tablet by mouth once daily. No current facility-administered medications for this visit. FAMILY HISTORY Problem Relation Age of Onset Psychiatry Mother Heart Mother NM 53 Heart Father NM 51 Colon Cancer Father Social History Tobacco Use Smoking status: Former Packs/day: 0.50 Types: Cigarettes Start date: 12/30/1983 Quit date: 05/30/2014 Years since quittin.4 Smokeless tobacco: Current Types: Chew Tobacco comments: Very few, very infrequently. Father smoked in childhood home. Substance Use Topics Alcohol use: Yes Alcohol/week: 210.0 standard drinks Types: 84 Cans of Beer (12oz) per week Comment: Binge drinking at times, worse with stress. Drug use: Yes Types: Marijuana Comment: Occassional marijuana, 03/2014. Huffed spray paint and glue briefly, ages 8-9. Whippets inmid to late teens. TO EXAM: BP 158/102 Pulse 76 Resp 18 Wt 93.4 kg (206 lb) SpO2 97% BMI 29.83 kg/m PHYSICAL EXAM: General Appearance: Well appearing, alert, in no acute distress, well-hydrated, well nourished. Skin: Skin color, texture, turgor normal, no suspicious rashes or lesions. Head: Normocephalic, no masses, lesions, tenderness or abnormalities. Eyes: Anicteric sclera. Extraocular movements are intact. Neck: Supple, no adenopathy; thyroid symmetric, normal size, no bruits. Lungs: Lungs clear to auscultation. No wheezing, rhonchi, rales.. Heart: RRR without murmur, gallop, or rubs. No ectopy. Abdomen: Abdomen soft, non-tender. Bowel sounds normal. No masses, organomegaly. Extremities: No deformities, edema, skin discoloration, clubbing or cyanosis. Good capillary refill. Neurologic: Gait normal. ASSESSMENT/PLAN: 1. Hypertension, essential - ICD9: 401.9, ICD10: I10 (primary diagnosis) - suboptimal control -- ran out of lisinopril a week ago. - Continue current medication(s) - Recommended regular aerobic exercise. - Recommend home blood pressure monitoring, to bring results in on next visit - Goal of BP <130/80 - COMP METABOLIC PANEL - MAGNESIUM BLD - LISINOPRIL 10 MG TABLET Restart lisinopril and recheck in 1 month. 2. GERD without esophagitis - ICD9: 530.81, ICD10: K21.9 - CBC + DIFF - MAGNESIUM BLD - OMEPRAZOLE 20 MG CAPSULE,DELAYED RELEASE 3. Acute right-sided low back pain without sciatica - ICD9: 724.2, ICD10: M54.50 - CYCLOBENZAPRINE 10 MG TABLET 4. Anxiety and depression - ICD9: 300.00, 311, ICD10: F41.9, F32.A Has been stable. He has been weaning off the sertraline and buspar. Continue to monitor. 5. Hypertriglyceridemia - ICD9: 272.1, ICD10: E78.1 Get labs. He reports that he has been taking the atorvastatin. Needs refill of zetia. - LIPID PANEL BASIC 6. Chronic alcohol abuse - ICD9: 305.00, ICD10: F10.10 Encouraged sobriety. Restart meetings. - CBC + DIFF 7. 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 - ICD9: V45.82, ICD10: Z95.5 Follow-up with cardiology, as planned. - EZETIMIBE 10 MG TABLET 8. Renal insufficiency - ICD9: 593.9, ICD10: N28.9 Due for recheck. - COMP METABOLIC PANEL 9. Special screening examination for viral disease - ICD9: V73.99, ICD10: Z11.59 - HEP C AB IA W/CONF SCRN 10. Chronic insomnia - ICD9: 780.52, ICD10: F51.04 Refill: - TRAZODONE 50 MG TABLET 11. Bilateral carotid artery stenosis - ICD9: 433.10, 433.30, ICD10: I65.23 Due for surveillance. - US CAROTID ARTERIES [facility] Discussed treatment plan and patient voices understanding. Patient's questions answered appropriately. Medications and potential side effects were discussed and patient voices understanding. Return to the office as scheduled or as needed for worsening/no improvement. Keren Kwon APRN.CHRISTIANA This note was partially generated using [employer]Logiq voice recognition system. Note was reviewed for accuracy. There may be minor misspellings or grammar miscues with [employer]Logiq voice recognition. documented in this encounterBlanchard [facility]12-05-2022 History of Present illness Narrative* Bulmaro Pappas RT(R) - 06/25/2022 6:10 PM EST Radiology Service Progress Note PATIENT NAME: Bethany Montalvo DATE OF SERVICE: June 25, 2022 TIME: 6:06 PM PATIENT IDENTITY VERIFICATION COMPLETED USING TWO (2) IDENTIFIERS: Name and Date of confirmedby patient verbally. FALL SCREENING: Has the patient had 2 falls in the last year or 1 fall with injury or currently using an Ambulatory Assistive Device (Walker, Cane, Wheelchair, Crutches, etc.)? No PATIENT GENDER DATA: Male PATIENT RELEVANT IMPLANT DATA REVIEWED: Not Applicable RADIOLOGY DEPARTMENT: General X-ray: Exam(s) Completed: Lower Extremity X- Ray(s): Foot, Right PERIPHERAL IV DATA: Not applicable SIGNED BY: RT Thu(R) June 25, 2022 6:06 PM documented in this encounterBlanchard Valley [facility]12-05-2022 History of Present illness Narrative* Ziggy Mobley APRN.DIGITAL SALES MANAGER - 06/25/2022 6:04 PM EST Images from the original note were not included. Subjective HPI HPI Bethany Montalvo is a 56 year old male who presents today for CC of foot pain. This started 4 days ago/hit wall. Has tried otc medication for relief. Symptoms are worsened by walking. Some tingling. Denies numbness and prior right foot injury. Not diabetic. .Patient presents with: Pain (foot): x 4 days, hit wall with back of foot PAST MEDICAL HISTORY Diagnosis Date Alcohol abuse Bilateral carotid artery stenosis 01/14/2020 40-59% bilateral. CSF abnormal GERD (gastroesophageal reflux disease) HTN (hypertension) Syncope PAST SURGICAL HISTORY Procedure Laterality Date COLONOSCOPY BX SINGLE/MULTI 01/12/2019 COLONOSCOPY FLX DX W/COLLJ SPEC WHEN PFRMD 01/12/2019 Colonoscopy CRANIO/MAXILLO-FACIAL SURGERY 1989 orbital blow out fracture/ [place] ESOPHAGOGASTRODUODENOSCOPY TRANSORAL DIAGNOSTIC 01/12/2019 EGD PTCA SNGL VSSL LC 11/21/2017 JUSTIN left circ TONSILLECTOMY HX TREAT SHOULDERBLADE FRACTURE UPPER GI ENDOSCPY, W/BIOPSY, SNGL OR MULT 01/12/2019 ALLERGIES Sudafed [Pseudoephedrine] MEDICATIONS lisinopril (ZESTRIL, PRINIVIL) 10 mg tablet Take 1 tablet by mouth once daily. cyclobenzaprine (FLEXERIL) 10 mg tablet Take 1 tablet by mouth once daily as needed. busPIRone (BUSPAR) 5 mg tablet Take 1 tablet by mouth three times daily as needed. ezetimibe (ZETIA) 10 mg tablet Take 1 tablet by mouth once daily. atorvastatin (LIPITOR) 80 mg tablet Take 1 tablet by mouth daily at bedtime. thiamine (VITAMIN B1) 100 mg tablet Take 1 tablet by mouth once daily. sertraline (ZOLOFT) 50 mg tablet One pill by mouth daily carvedilol (COREG) 3.125 mg tablet Take 1 tablet by mouth twice daily. traZODone (DESYREL) 50 mg tablet Take 1 tablet by mouth at bedtime as needed. folic acid 1 mg tablet Take 1 tablet by mouth once daily. omeprazole (PRILOSEC) 20 mg capsule Take 1 capsule by mouth daily before breakfast. 1/2 hr before meal. aspirin, enteric coated (ECOTRIN LOW STRENGTH) 81 mg EC tablet Take 1 tablet by mouth once daily. FAMILY HISTORY Problem Relation Age of Onset Psychiatry Mother Heart Mother NM 53 Heart Father NM 51 Colon Cancer Father Social History Tobacco Use Smoking status: Former Packs/day: 0.50 Types: Cigarettes Start date: 12/30/1983 Quit date: 05/30/2014 Years since quittin.0 Smokeless tobacco: Current Types: Chew Tobacco comments: Very few, very infrequently. Father smoked in childhood home. Substance Use Topics Alcohol use: Yes Alcohol/week: 210.0 standard drinks Types: 84 Cans of Beer (12oz) per week Comment: Binge drinking at times, worse with stress. Drug use: Yes Types: Marijuana Comment: Occassional marijuana, 03/2014. Huffed spray paint and glue briefly, ages [age]. WhCarZenets inmid to late teens. TO ROS Objective Blood pressure 122/72, pulse (!) 122, temperature 36.9 C (98.5 F), resp. rate 20, weight 98.9 kg (218 lb), SpO2 98 %. Physical Exam Constitutional: General: He is not in acute distress. Appearance: He is not toxic-appearing or diaphoretic. HENT: Head: Normocephalic and atraumatic. Cardiovascular: Pulses: Dorsalis pedis pulses are 1+ on the right side. Posterior tibial pulses are 1+ on the right side. Pulmonary: Effort: Pulmonary effort is normal. No accessory muscle usage or respiratory distress. Musculoskeletal: Right ankle: Right Achilles Tendon: No tenderness or defects. Velez's test negative. Feet: Neurological: Mental Status: He is alert and oriented to person, place, and time. ASSESSMENT/PLAN: 1. Foot pain, right - ICD9: 729.5, ICD10: M79.671 -no bony abnormality noted on xray -Rest, Ice, Compression, Elevation discussed -follow up with primary care if symptoms persist/worsen in 10-14 days - XR FOOT GENERAL 3V AP/LAT/OBL RIGHT IMPRESSION: No radiographic evidence of acute osseous injury Dictated by : OMID RENEE MD - PREDNISONE 10 MG TABLET Ziggy Mobley APRN.CNP documented in this encounterBlanchard Valley [facility]11-15-2022 Instructions* Patient Instructions* Rebecca Devries APRN.CNP - 06/05/2022 1:57 PM EST covid test ordered You will be notified in 12-24 hours, results available on [facility] until covid results are back If covid positive needs virtual visit for antivirals Rest, increase water intake Salt water gargles, chloraseptic spray or lozenges as needed for sore throat. Warm beverages, honey. Nasal saline spray as needed Cool mist humidifier at night Tylenol (generic acetaminophen) 500 mg-2 tabs every 8 hrs. as needed for fever and aches Aleve 1 twice a day as needed for pain, short term use. * Seek medical care immediately, call 911, go to ER if you have chest pain, difficulty breathing, shortness of breath, inability to swallow. documented in this encounterBlanchard Valley [facility]11-15-2022 History of Present illness Narrative* Rebecca Devries APRN.CNP - 06/05/2022 1:56 PM EST Subjective The history is provided by the patient. No language specialist was used. HPI Bethany Montalvo is a 56 year old male who presents today for CC of body aches, chills, nausea,and diarrhea for 2 days. He was exposed to covid last week. He has used tylenol with short term relief. Also needs refill on lisinopril BP 132/82 Pulse 92 Temp 36.7 C (98 F) Resp 16 Wt 98 kg (216 lb) SpO2 98% BMI 31.27 kg/m Social History Tobacco Use Smoking status: Former Packs/day: 0.50 Types: Cigarettes Start date: 12/30/1983 Quit date: 05/30/2014 Years since quittin.0 Smokeless tobacco: Current Types: Chew Tobacco comments: Very few, very infrequently. Father smoked in childhood home. Substance Use Topics Alcohol use: Yes Alcohol/week: 210.0 standard drinks Types: 84 Cans of Beer (12oz) per week Comment: Binge drinking at times, worse with stress. Drug use: Yes Types: Marijuana Comment: Occassional marijuana, 03/2014. Huffed spray paint and glue briefly, ages 8-9. Whippets inmid to late teens. TO PAST MEDICAL HISTORY Diagnosis Date Alcohol abuse Bilateral carotid artery stenosis 01/14/2020 40-59% bilateral. CSF abnormal GERD (gastroesophageal reflux disease) HTN (hypertension) Syncope I have confirmed and edited as necessary, the [facility] Review of Systems Constitutional: Positive for chills, fever and malaise/fatigue. HENT: Negative for congestion, ear pain, sinus pain and sore throat. Respiratory: Negative for cough, sputum production, shortness of breath and wheezing. Cardiovascular: Negative for chest pain. Gastrointestinal: Positive for diarrhea. Negative for abdominal pain, nausea and vomiting. Musculoskeletal: Negative for myalgias. Neurological: Negative for headaches. Objective Physical Exam Vitals and nursing note reviewed. Constitutional: Appearance: He is not toxic-appearing. HENT: Head: Normocephalic and atraumatic. Right Ear: Tympanic membrane, ear canal and external ear normal. Left Ear: Tympanic membrane, ear canal and external ear normal. Nose: No mucosal edema, congestion or rhinorrhea. Right Sinus: No maxillary sinus tenderness or frontal sinus tenderness. Left Sinus: No maxillary sinus tenderness or frontal sinus tenderness. Mouth/Throat: Pharynx: Uvula midline. No oropharyngeal exudate or posterior oropharyngeal erythema. Tonsils: No tonsillar abscesses. Cardiovascular: Rate and Rhythm: Normal rate and regular rhythm. Heart sounds: Normal heart sounds. Pulmonary: Effort: Pulmonary effort is normal. Breath sounds: Normal breath sounds. No decreased breath sounds, wheezing, rhonchi or rales. Abdominal: General: Abdomen is protuberant. Bowel sounds are increased. There is no distension. Palpations: Abdomen is soft. Tenderness: There is generalized abdominal tenderness (mild). Lymphadenopathy: Head: Right side of head: No submental, submandibular, tonsillar or preauricular adenopathy. Left side of head: No submental, submandibular, tonsillar or preauricular adenopathy. Cervical: No cervical adenopathy. Right cervical: No superficial cervical adenopathy. Left cervical: No superficial cervical adenopathy. Neurological: Mental Status: He is alert. ASSESSMENT/PLAN: 1. Body aches - ICD9: 780.96, ICD10: R52 (primary diagnosis) - COVID WITH FLUA+B, ROUTINE 2. Flu-like symptoms - ICD9: 780.99, ICD10: R68.89 - COVID WITH FLUA+B, ROUTINE If covid positive needs virtual visit for antivirals Home isolation Testing ordered Comfort measures discussed - see patient instructions. When to seek higher level of care Notified in 12-24 hours with results, [facility] Diagnosis and treatment plan were discussed and questions were answered to the patient's satisfaction. Pt acknowledged understanding of concepts and follow up plan. Specific signs and symptoms that would indicate the need for higher level of care were discussed indetail warranting prompt ER evaluation. Rebecca Devries APRN.CHRISTIANA documented in this encounterBlanchard Valley [facility]09-07-2022 Miscellaneous Notes* Telephone Encounter - Richelle Demarco LPN - 03/28/2022 3:18 PM EDT Patient phones requesting refills as follows: Requested Prescriptions Pending Prescriptions Disp Refills cyclobenzaprine (FLEXERIL) 10 mg tablet 30 tablet 0 Sig: Take 1 tablet by mouth once daily as needed. KRISTEN-02/23/22 Labs-02/21/22 NOV-none med filled 02/23/22 Please review and advise. Richelle Demarco LPN documented in this encounterBlanchard Valley [facility]08-05-2022 Miscellaneous Notes* Telephone Encounter - Natividad Salas Cma - 02/23/2022 9:59 AM EDT Called and lab was added Natividad Salas Cma * Telephone Encounter - Mikhail Mancia MD - 02/23/2022 8:33 AM EDT Ck was normal.. it appears lipid was ordered for same but I do not think it was done? If not done, can it be added on? documented in this encounterBlanchard Valley [facility]08-05-2022 Instructions* Patient Instructions* Keren Kwon APRN.CNP - 02/23/2022 9:42 AM EDT 1. Schedule w/ cardiology. 2. Start the doxycycline -- twice daily X 10 days. 3. Use the cream to the arm twice daily for up to 2 weeks. 4. Recheck in 1 month. documented in this encounterBlanchard Valley [facility]08-05-2022 History of Present illness Narrative* Keren Kwon APRN.CNP - 02/23/2022 9:32 AM EDT This is a 56 year old male who presents today with: Patient presents with: urgent care follow up HISTORY OF PRESENT ILLNESS: Bethany Montalvo is a 56 year old male. Patient presents with: urgent care follow up Pt presents today for urgent care follow-up. 1 month since smoked. 1 week since drank. Schedule to start a new job on 03/05. Feels like he has a handle on his addiction. URI Symptoms started Saturday. Went to urgent care on Saturday. Xray normal. He is taking mucinex, tylenol. Took last prednisone this morning. Refers + chest congestion. Weakness. Painful to breath. Headache. Coughing out mucus. + drainage. Also complains of a dry itchy rash on the left forearm. Thinks maybe from sun exposure. Has tried hydrocortisone. PAST MEDICAL HISTORY: PAST MEDICAL HISTORY Diagnosis Date Alcohol abuse Bilateral carotid artery stenosis 01/14/2020 40-59% bilateral. CSF abnormal GERD (gastroesophageal reflux disease) HTN (hypertension) Syncope PAST SURGICAL HISTORY Procedure Laterality Date COLONOSCOPY BX SINGLE/MULTI 01/12/2019 COLONOSCOPY FLX DX W/COLLJ SPEC WHEN PFRMD 01/12/2019 Colonoscopy CRANIO/MAXILLO-FACIAL SURGERY 1989 orbital blow out fracture/ [place] ESOPHAGOGASTRODUODENOSCOPY TRANSORAL DIAGNOSTIC 01/12/2019 EGD PTCA SNGL VSSL LC 11/21/2017 JUSTIN left circ TONSILLECTOMY HX TREAT SHOULDERBLADE FRACTURE UPPER GI ENDOSCPY, W/BIOPSY, SNGL OR MULT 01/12/2019 ALLERGIES Sudafed [Pseudoephedrine] MEDICATIONS Current Outpatient Medications Medication Sig lisinopril (ZESTRIL, PRINIVIL) 10 mg tablet Take 1 tablet by mouth once daily. predniSONE (DELTASONE) 20 mg tablet Take 1 tablet by mouth once daily for 5 days. ezetimibe (ZETIA) 10 mg tablet Take 1 tablet by mouth once daily. thiamine (VITAMIN B1) 100 mg tablet Take 1 tablet by mouth once daily. cyclobenzaprine (FLEXERIL) 10 mg tablet Take 1 tablet by mouth once daily as needed. sertraline (ZOLOFT) 50 mg tablet 1/2 pill daily X 1 week; then increase to a whole pill daily. atorvastatin (LIPITOR) 80 mg tablet Take 1 tablet by mouth daily at bedtime. carvedilol (COREG) 3.125 mg tablet Take 1 tablet by mouth twice daily. aspirin, enteric coated (ECOTRIN LOW STRENGTH) 81 mg EC tablet Take 1 tablet by mouth once daily. traZODone (DESYREL) 50 mg tablet Take 1 tablet by mouth at bedtime as needed. folic acid 1 mg tablet Take 1 tablet by mouth once daily. busPIRone (BUSPAR) 5 mg tablet Take 1 tablet by mouth three times daily as needed. omeprazole (PRILOSEC) 20 mg capsule Take 1 capsule by mouth daily before breakfast. 1/2 hr before meal. No current facility-administered medications for this visit. FAMILY HISTORY Problem Relation Age of Onset Psychiatry Mother Heart Mother NM 53 Heart Father NM 51 Colon Cancer Father Social History Tobacco Use Smoking status: Former Smoker Packs/day: 0.50 Start date: 12/30/1983 Quit date: 05/30/2014 Years since quittin.7 Smokeless tobacco: Current User Types: Chew Tobacco comment: Very few, very infrequently. Father smoked in childhood home. Substance Use Topics Alcohol use: Yes Alcohol/week: 210.0 standard drinks Types: 84 Cans of Beer (12oz) per week Comment: Binge drinking at times, worse with stress. Drug use: Yes Types: Marijuana Comment: Occassional marijuana, 03/2014. Huffed spray paint and glue briefly, ages 8-9. Whippets inmid to late teens. TO EXAM: BP 150/100 Pulse 114 Wt 93 kg (205 lb) SpO2 98% BMI 29.68 kg/m PHYSICAL EXAM: General Appearance: Well appearing, alert, in no acute distress, well-hydrated, well nourished.. Skin: Skin color, texture, turgor normal, no suspicious rashes or lesions. Dry rash on the left forearm. Head: Normocephalic, no masses, lesions, tenderness or abnormalities. Eyes: Anicteric sclera. Pupils are equally round and reactive to light. Extraocular movements are intact. . Ears: External ears normal, canals clear, Normal TMs bilaterally. Oropharynx: Lips, mucosa, and tongue normal, teeth and gums normal, oropharynx normal and + drainage. Neck: Supple, no adenopathy Lungs: Lungs clear to auscultation. No wheezing, rhonchi, rales.. Heart: RRR without murmur, gallop, or rubs. No ectopy. Neurologic: Gait normal. ASSESSMENT/PLAN: 1. Sinobronchitis - ICD9: 473.9, 490, ICD10: J32.9, J40 (primary diagnosis) - Will begin treatment with Doxycycline - The patient should also be given OTC decongestants prn for the first 5-7 days of treatment. - Supportive care with plenty of fluids, rest, and analgesia prn. - DOXYCYCLINE HYCLATE 100 MG TABLET 2. Anxiety and depression - ICD9: 300.00, 311, ICD10: F41.9, F32.A Refill: - BUSPIRONE 5 MG TABLET - SERTRALINE 50 MG TABLET 3. Hypertension, essential - ICD9: 401.9, ICD10: I10 Refill: - LISINOPRIL 10 MG TABLET 4. Hypertriglyceridemia - ICD9: 272.1, ICD10: E78.1 Refill: - ATORVASTATIN 80 MG TABLET 5. Chronic alcohol abuse - ICD9: 305.00, ICD10: F10.10 - THIAMINE HCL (VITAMIN B1) 100 MG TABLET - FOLIC ACID 1 MG TABLET 6. Chest pain, unspecified type - ICD9: 786.50, ICD10: R07.9 Refill: - CARVEDILOL 3.125 MG TABLET 7. 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 - ICD9: V45.82, ICD10: Z95.5 Refill: - CARVEDILOL 3.125 MG TABLET - ASPIRIN 81 MG TABLET,DELAYED RELEASE 8. Chronic insomnia - ICD9: 780.52, ICD10: F51.04 Refill: - TRAZODONE 50 MG TABLET 9. GERD without esophagitis - ICD9: 530.81, ICD10: K21.9 Refill: - OMEPRAZOLE 20 MG CAPSULE,DELAYED RELEASE 10. Acute right-sided low back pain without sciatica - ICD9: 724.2, ICD10: M54.50 Refill: - CYCLOBENZAPRINE 10 MG TABLET 11. Dermatitis - ICD9: 692.9, ICD10: L30.9 start - TRIAMCINOLONE ACETONIDE 0.1 % TOPICAL OINTMENT Discussed treatment plan and patient voices understanding. Patient's questions answered appropriately. Medications and potential side effects were discussed and patient voices understanding. Return to the office as scheduled or as needed for worsening/no improvement. Keren Kwon APRN.CNP The patient indicates understanding of these issues and agrees with the plan. documented in this encounterBl[facility] History of Present illness Narrative* Bulmaro Pappas RT(R) - 02/19/2022 3:40 PM EDT Radiology Service Progress Note PATIENT NAME: Bethany Montalvo DATE OF SERVICE: February 19, 2022 TIME: 3:29 PM PATIENT IDENTITY VERIFICATION COMPLETED USING TWO (2) IDENTIFIERS: Name and Date of confirmedby patient verbally. FALL SCREENING: Has the patient had 2 falls in the last year or 1 fall with injury or currently using an Ambulatory Assistive Device (Walker, Cane, Wheelchair, Crutches, etc.)? No PATIENT GENDER DATA: Male PATIENT RELEVANT IMPLANT DATA REVIEWED: Not Applicable RADIOLOGY DEPARTMENT: General X-ray: Exam(s) Completed: Chest X-Ray PERIPHERAL IV DATA: Not applicable SIGNED BY: RT Thu(R) February 19, 2022 3:29 PM documented in this encounterBlanchard [facility] History of Present illness Narrative* Ziggy Mobley APRN.DIGITAL SALES MANAGER - 02/19/2022 3:25 PM EDT Subjective HPI HPI Bethany Montalvo is a 56 year old male who presents today for CC of cough, congestion, st. Thisstarted 2 days ago. Has tried nothing for relief. Symptoms are worsened by nothing. Risk factors smoker. Hx of copd, asthma. Not vaccinated for covid. Has been out of lisinopril for 1 week. .Patient presents with: Chest Congestion: cough, sore throat, bodyaches x 2 days PAST MEDICAL HISTORY Diagnosis Date Alcohol abuse Bilateral carotid artery stenosis 01/14/2020 40-59% bilateral. CSF abnormal GERD (gastroesophageal reflux disease) HTN (hypertension) Syncope PAST SURGICAL HISTORY Procedure Laterality Date COLONOSCOPY BX SINGLE/MULTI 01/12/2019 COLONOSCOPY FLX DX W/COLLJ SPEC WHEN PFRMD 01/12/2019 Colonoscopy CRANIO/MAXILLO-FACIAL SURGERY 1989 orbital blow out fracture/ [place] ESOPHAGOGASTRODUODENOSCOPY TRANSORAL DIAGNOSTIC 01/12/2019 EGD PTCA SNGL VSSL LC 11/21/2017 JUSTIN left circ TONSILLECTOMY HX TREAT SHOULDERBLADE FRACTURE UPPER GI ENDOSCPY, W/BIOPSY, SNGL OR MULT 01/12/2019 ALLERGIES Sudafed [Pseudoephedrine] MEDICATIONS ezetimibe (ZETIA) 10 mg tablet Take 1 tablet by mouth once daily. thiamine (VITAMIN B1) 100 mg tablet Take 1 tablet by mouth once daily. cyclobenzaprine (FLEXERIL) 10 mg tablet Take 1 tablet by mouth once daily as needed. sertraline (ZOLOFT) 50 mg tablet 1/2 pill daily X 1 week; then increase to a whole pill daily. atorvastatin (LIPITOR) 80 mg tablet Take 1 tablet by mouth daily at bedtime. carvedilol (COREG) 3.125 mg tablet Take 1 tablet by mouth twice daily. aspirin, enteric coated (ECOTRIN LOW STRENGTH) 81 mg EC tablet Take 1 tablet by mouth once daily. traZODone (DESYREL) 50 mg tablet Take 1 tablet by mouth at bedtime as needed. folic acid 1 mg tablet Take 1 tablet by mouth once daily. busPIRone (BUSPAR) 5 mg tablet Take 1 tablet by mouth three times daily as needed. omeprazole (PRILOSEC) 20 mg capsule Take 1 capsule by mouth daily before breakfast. 1/2 hr before meal. FAMILY HISTORY Problem Relation Age of Onset Psychiatry Mother Heart Mother NM 53 Heart Father NM 51 Colon Cancer Father Social History Tobacco Use Smoking status: Former Smoker Packs/day: 0.50 Start date: 12/30/1983 Quit date: 05/30/2014 Years since quittin.7 Smokeless tobacco: Current User Types: Chew Tobacco comment: Very few, very infrequently. Father smoked in childhood home. Substance Use Topics Alcohol use: Yes Alcohol/week: 210.0 standard drinks Types: 84 Cans of Beer (12oz) per week Comment: Binge drinking at times, worse with stress. Drug use: Yes Types: Marijuana Comment: Occassional marijuana, 03/2014. Huffed spray paint and glue briefly, ages [age]. Whippets inmid to late teens. TO Review of Systems Constitutional: Positive for chills and malaise/fatigue. Negative for fever. HENT: Positive for congestion and sore throat. Negative for ear pain and nosebleeds. Respiratory: Positive for cough. Negative for shortness of breath and wheezing. Cardiovascular: Positive for chest pain (with cough). Musculoskeletal: Negative for neck pain. Skin: Negative for itching and rash. Objective Blood pressure 150/110, pulse 93, temperature 36.8 C (98.2 F), resp. rate 21, weight 92.4 kg (203 lb 12.8 oz), SpO2 100 %. Physical Exam Constitutional: General: He is not in acute distress. Appearance: He is not toxic-appearing or diaphoretic. HENT: Head: Normocephalic and atraumatic. Cardiovascular: Rate and Rhythm: Normal rate and regular rhythm. Heart sounds: Normal heart sounds, S1 normal and S2 normal. Pulmonary: Effort: Pulmonary effort is normal. Breath sounds: Wheezing (scattered bilat) present. No decreased breath sounds, rhonchi or rales. Neurological: Mental Status: He is alert and oriented to person, place, and time. Gait: Gait is intact. ASSESSMENT/PLAN: 1. Acute cough - ICD9: 786.2, ICD10: R05.1 (primary diagnosis) Suspect viral uri - XR CHEST 2V FRONTAL/LAT - COVID WITH FLUA+B, ROUTINE 2. Hypertension, essential - ICD9: 401.9, ICD10: I10 Reports out of lisinopril as of 1 week ago Will reorder lisinopril and schedule f/u with pcp/walked to ps[facility] to schedule appointment. - - LISINOPRIL 10 MG TABLET 3. URI, acute - ICD9: 465.9, ICD10: J06.9 Take lisinopril first, if bp less than 140/80 take prednisone. - Discussed viral etiology and rationale for treatment. - Symptomatic treatment with prn analgesia - Supportive care with fluids and rest - Follow up in 3-5 days if symptoms persist or sooner if worsening of symptoms Discussed quarantine, social distancing otc medications discussed Push fluids -If you experience chest pain/shortness of breath go to ER - PREDNISONE 20 MG TABLET Agrees to plan Ziggy Mobley APRN.CNP documented in this encounterBlanch[facility]04-27-[facility] Instructions* Patient Instructions* Keren Kwon APRN.CNP - 11/15/2021 2:16 PM EDT 1. Continue the same medications. 2. Get the previously ordered testing/referrals scheduled. 3. Keep advancing fluids and return next week -- well hydrated to repeat labs. 4. Recheck in a month -- sooner if needed. documented in this encounterBl[facility]04-27-[facility] History of Present illness Narrative* Keren Kwon APRN.CNP - 11/15/2021 1:52 PM EDT This is a 55 year old male who presents today with: No chief complaint on file. HISTORY OF PRESENT ILLNESS: Bethany Montalvo is a 55 year old male. No chief complaint on file. Pt presents today with complaint of not feeling that great. Pain in the right back. Refers can be real sharp with certain movements. Has been going on the last 4-5 days. Had the stomach bug the day after the ER. Still with some diarrhea, but not as bad. He has been trying to get water down. Back pain started when he started with the GI bug. He did go to the ER on 11/08 d/t elevated potassium at the office K was 5.1 in the ER. Urine in the ER was normal. Creatinine was elevated. While at the ER, he also was concerned about potential return of diverticulitis and had a CT while in the ER, which was normal. CT normal - umbilcal hernia containing fat, degenerative changes in the lumbar spine. Colonic diverticuli. PAST MEDICAL HISTORY: PAST MEDICAL HISTORY Diagnosis Date Alcohol abuse Bilateral carotid artery stenosis 01/14/2020 40-59% bilateral. CSF abnormal GERD (gastroesophageal reflux disease) HTN (hypertension) Syncope PAST SURGICAL HISTORY Procedure Laterality Date COLONOSCOPY BX SINGLE/MULTI 01/12/2019 COLONOSCOPY FLX DX W/COLLJ SPEC WHEN PFRMD 01/12/2019 Colonoscopy CRANIO/MAXILLO-FACIAL SURGERY 1989 orbital blow out fracture/ [place] ESOPHAGOGASTRODUODENOSCOPY TRANSORAL DIAGNOSTIC 01/12/2019 EGD PTCA SNGL VSSL LC 11/21/2017 JUSTIN left circ TONSILLECTOMY HX TREAT SHOULDERBLADE FRACTURE UPPER GI ENDOSCPY, W/BIOPSY, SNGL OR MULT 01/12/2019 ALLERGIES Sudafed [Pseudoephedrine] MEDICATIONS Current Outpatient Medications Medication Sig ezetimibe (ZETIA) 10 mg tablet Take 1 tablet by mouth once daily. thiamine (VITAMIN B1) 100 mg tablet Take 1 tablet by mouth once daily. cyclobenzaprine (FLEXERIL) 10 mg tablet Take 1 tablet by mouth once daily as needed. sertraline (ZOLOFT) 50 mg tablet 1/2 pill daily X 1 week; then increase to a whole pill daily. atorvastatin (LIPITOR) 80 mg tablet Take 1 tablet by mouth daily at bedtime. carvedilol (COREG) 3.125 mg tablet Take 1 tablet by mouth twice daily. aspirin, enteric coated (ECOTRIN LOW STRENGTH) 81 mg EC tablet Take 1 tablet by mouth once daily. traZODone (DESYREL) 50 mg tablet Take 1 tablet by mouth at bedtime as needed. folic acid 1 mg tablet Take 1 tablet by mouth once daily. busPIRone (BUSPAR) 5 mg tablet Take 1 tablet by mouth three times daily as needed. omeprazole (PRILOSEC) 20 mg capsule Take 1 capsule by mouth daily before breakfast. 1/2 hr before meal. No current facility-administered medications for this visit. FAMILY HISTORY Problem Relation Age of Onset Psychiatry Mother Heart Mother NM 53 Heart Father NM 51 Colon Cancer Father Social History Tobacco Use Smoking status: Former Smoker Packs/day: 0.50 Start date: 12/30/1983 Quit date: 05/30/2014 Years since quittin.4 Smokeless tobacco: Current User Types: Chew Tobacco comment: Very few, very infrequently. Father smoked in childhood home. Substance Use Topics Alcohol use: Yes Alcohol/week: 210.0 standard drinks Types: 84 Cans of Beer (12oz) per week Comment: Binge drinking at times, worse with stress. Drug use: Yes Types: Marijuana Comment: Occassional marijuana, 03/2014. Huffed spray paint and glue briefly, ages 8-9. Whippets inmid to late teens. TO EXAM: BP 118/92 Pulse 97 Resp 18 SpO2 97% PHYSICAL EXAM: General Appearance: Well appearing, alert, in no acute distress, well-hydrated, well nourished.. Skin: Skin color, texture, turgor normal, no suspicious rashes or lesions. Head: Normocephalic, no masses, lesions, tenderness or abnormalities. Eyes: Anicteric sclera. Pupils are equally round and reactive to light. Extraocular movements are intact. . Back:no pain to palpation of vertebrae, good flexion and extension, good range of motion, + muscle tenderness in the bilateral flank area -- R>L. Lungs: Lungs clear to auscultation. No wheezing, rhonchi, rales.. Heart: RRR without murmur, gallop, or rubs. No ectopy. Neurologic: Gait normal. ASSESSMENT/PLAN: 1. Upper back pain - ICD9: 724.5, ICD10: M54.9 (primary diagnosis) Flank pain. Suspect from vomiting. Can continue Tylenol. Avoid NSAIDs due to decreased kidney function. Can also use ice and moist heat to the area. 2. Function kidney decreased - ICD9: 593.9, ICD10: N28.9 Repeat labs next week when GI symptoms improved and better hydrated. - COMP METABOLIC PANEL Continue to work on pushing fluids. Discussed treatment plan and patient voices understanding. Patient's questions answered appropriately. Medications and potential side effects were discussed and patient voices understanding. Return to the office as scheduled or as needed for worsening/no improvement. Keren Kwon APRN.CHRISTAINA The patient indicates understanding of these issues and agrees with the plan. This note was partially generated using [employer] voice recognition system. Note was reviewed for accuracy. There may be minor misspellings or grammar miscues with Dragon voice recognition. documented in this encounterBlanchard [facility]04-22-2022 Miscellaneous Notes* Telephone Encounter - Donna Richey LPN - 11/10/2021 9:38 AM EDT See other phone note from 11/09. Pt notified of provider instructions. He was supposed to return to lab for redraw. No labs drawn at this time. Donna Richey LPN * Telephone Encounter - Richelle Demarco LPN - 11/09/2021 3:13 PM EDT Obtained [facility] reports and put on her desk for tomorrow. She is out today. 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 Paolo Wesley at [facility] regarding patient visit in EMERGENCY DEPARTMENT. He has a potassium of 5.1 in the EMERGENCY DEPARTMENT as well as a creatinine serum of 1.56. He wastreated with IVF and d/c home to follow up with primary care team. FYI to Keren Kwon CNP to address with patient Jared Elias DO documented in this encounterBlanchard Valley [facility]04-21-2022 Miscellaneous Notes* Telephone Encounter - Omega Lennon - 11/09/2021 2:12 PM EDT Patient notified. Patient will be into lab before 5 today to repeat. * Telephone Encounter - Rolando Young PA-C - 11/09/2021 1:29 PM EDT Unfortunately yes. Thanks, Kurt Yuong PA-C * Telephone Encounter - Omega Lennon - 11/09/2021 1:20 PM EDT Pt was instructed to go to ED 11/08. Patient went & per DOC TE 11/08/21 Hospitalist reported potassium was 5.1 & creatinine serum was 1.56. Treated with IVF & d/c home to F/U with PCP. Does patient still need to repeat potassium at this time? Kurt please review & advise. * Telephone Encounter - Rolando Young PA-C - 11/09/2021 12:13 PM EDT Please advise from IWTt message: Needs to come in today to repeat potassium as dangerously high but likely from hemolysis. Adding Ezetimibe for cholesterol Recheck labs in 3 months Telephone on 11/09/21 LIPID PANEL BASIC CK CREATINE KINASE POTASSIUM BLD The following approved medication requests have been transmitted electronically. Signed Prescriptions Disp Refills ezetimibe (ZETIA) 10 mg tablet 30 tablet 5 Sig: Take 1 tablet by mouth once daily. Authorizing Provider: Rolando YOUNG PA-C Message to patient: Folate (folic acid) is low I would recommend supplementing daily and sent in a prescription Sources of folic acid: Dark green leafy vegetables (turnip greens, spinach, milton lettuce, asparagus, Armstrong sprouts, broccoli) Beans. Peanuts. Phoenix seeds. Fresh fruits, fruit juices. Whole grains. Liver. Seafood. Cholesterol remains moderately elevated on maximum atorvastatin, and triglycerides are also elevated which is another risk factor for heart disease in diabetics Goal for LDL is < 70. Goal for triglceride is < 150 Please review below for dietary management I would recommend adding Ezetimibe (Zetia) and recheck levels in 3 months. Orders were placed. Your renal function is off. BUN is in the upper range indicating you are on the dry side- Please push fluids with water, non-caffeinated and non-alcoholic beverages. Creatinine is your renal function estimate and is also high but may improve with increased fluids. The potassium is very high and I suspect related to breakage of cells in right hand within the specimen. I would recommend that we repeat this immediately to make sure its not at the listed level. Orders were placed to do that today please. Your other numbers look good. 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 CHRISTIANA Conferenced through to the affiliate line for further assistance. documented in this [facility]04-20-2022 Miscellaneous Notes* Telephone Encounter - Donna Richey LPN - 11/08/2021 4:01 PM EDT TC to pt, notified of provider instructions. He verbalized understanding. Donna Richey LPN * Telephone Encounter - Keren Kwon APRN.CHRISTIANA - 11/08/2021 3:57 PM EDT Can please let patient know that I received a recheck potassium level. It is still critically high.He needs to go to the emergency room as soon as possible (now) for treatment. Keren Kwon APRN.CNP documented in this encounterBlanchard Valley [facility]04-13-2022 Instructions* Patient Instructions* Keren Kwon APRN.CNP - 11/01/2021 4:07 PM EDT 1. Get fasting labs. 2. Schedule carotid ultrasound. 3. Schedule stress test. 4. Schedule w/ GI. 5. Schedule with cardiology. 6. Schedule w/ psychiatry. 7. Recheck in 2-3 weeks. 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 Has not been in for several years. Trying to get health back on track. Anxiety/depression. Bummed out. Supposed to go back to work. Anxious about that. Refers that hasn't followed with psychiatry in over a year. States that he feels like a slug. Does have some anxiety as he recently had to put his father in a home. Refers that he has been having more episodes of chest pain. This comes and go. Refers that he gets it 2-3 times a week. Length of time can vary -- sometimes an hour and sometimes not that long. Has felt palpitations. No diaphoresis. Pain doesn't go anywhere besides the chest. No n/v with pain. Hasn't followed with cardiology in a couple of years. In the ER in May with diverticulitis. That was the first time he had diverticulitis. Refers that he continues to get some intermittent pain associated w/ this. Continues with some diarrhea. Refers that he has had covid a few times. Refers that he didn't get tested. Has never been hospitalized. He does admit to drinking again. Admits to malt drinks every few days. He also is using marijuana daily. PAST MEDICAL HISTORY: PAST MEDICAL HISTORY Diagnosis Date Alcohol abuse Bilateral carotid artery stenosis 01/14/2020 40-59% bilateral. CSF abnormal GERD (gastroesophageal reflux disease) HTN (hypertension) Syncope PAST SURGICAL HISTORY Procedure Laterality Date COLONOSCOPY BX SINGLE/MULTI 01/12/2019 COLONOSCOPY FLX DX W/COLLJ SPEC WHEN PFRMD 01/12/2019 Colonoscopy CRANIO/MAXILLO-FACIAL SURGERY 1989 orbital blow out fracture/ [place] ESOPHAGOGASTRODUODENOSCOPY TRANSORAL DIAGNOSTIC 01/12/2019 EGD PTCA SNGL VSSL LC 11/21/2017 JUSTIN left circ TONSILLECTOMY HX TREAT SHOULDERBLADE FRACTURE UPPER GI ENDOSCPY, W/BIOPSY, SNGL OR MULT 01/12/2019 ALLERGIES Sudafed [Pseudoephedrine] MEDICATIONS Current Outpatient Medications Medication Sig QUEtiapine (SEROQUEL) 50 mg tablet Take 1 tablet by mouth twice daily. thiamine (VITAMIN B1) 100 mg tablet Take 1 tablet by mouth once daily. albuterol HFA (VENTOLIN HFA) 90 mcg/actuation inhaler Inhale 2 Puffs as instructed every 4 hours asneeded for Wheezing/Shortness of Breath. busPIRone (BUSPAR) 10 mg tablet Take 1 tablet by mouth three times daily. cyclobenzaprine (FLEXERIL) 10 mg tablet Take 1 tablet by mouth once daily as needed. sertraline (ZOLOFT) 50 mg tablet Take 2 tablets by mouth once daily. lisinopril (ZESTRIL, PRINIVIL) 10 mg tablet Take 1 tablet by mouth once daily. atorvastatin (LIPITOR) 80 mg tablet Take 1 tablet by mouth daily at bedtime. amLODIPine (NORVASC) 10 mg tablet Take 1 tablet by mouth once daily. carvedilol (COREG) 6.25 mg tablet Take 1 tablet by mouth twice daily. nitroglycerin sublingual (NITROQUICK) 0.4 mg SL tablet Dissolve 1 tablet under the tongue as needed. FOR CHEST PAIN. IF NO RELIEF CALL 911 aspirin, enteric coated (ECOTRIN LOW STRENGTH) 81 mg EC tablet Take 1 tablet by mouth once daily. fluticasone (FLONASE) 50 mcg/actuation nasal spray Use 2 Sprays in each nostril once daily. Rinse mouth after use. L. gasseri-B. bifidum-B longum (PROBIOTIC COLON SUPPORT) 1.5 billion cell cap Take by mouth. melatonin 3 mg tablet Take by mouth. acetaminophen (TYLENOL EXTRA STRENGTH) 500 mg tablet Take 1 tablet by mouth every 6 hours as neededfor Pain. meloxicam (MOBIC) 15 mg tablet Take 1 tablet by mouth once daily. With food. traZODone (DESYREL) 50 mg tablet Take 1 tablet by mouth at bedtime as needed. lansoprazole (PREVACID) 30 mg capsule Take 1 capsule by mouth once daily. benzonatate (TESSALON PERLE) 100 mg capsule Take 2 capsules by mouth three times daily as needed. buPROPion XL (WELLBUTRIN XL) 300 mg 24 hr tablet Take 1 tablet by mouth once daily. polyethylene glycol 3350 (MIRALAX) 17 gram/dose powder Take 17 g by mouth once daily. No current facility-administered medications for this visit. FAMILY HISTORY Problem Relation Age of Onset Psychiatry Mother Heart Mother NM 53 Heart Father NM 51 Colon Cancer Father Social History Tobacco Use Smoking status: Former Smoker Packs/day: 0.50 Start date: 12/30/1983 Quit date: 05/30/2014 Years since quittin.4 Smokeless tobacco: Current User Types: Chew Tobacco comment: Very few, very infrequently. Father smoked in childhood home. Substance Use Topics Alcohol use: Yes Alcohol/week: 210.0 standard drinks Types: 84 Cans of Beer (12oz) per week Comment: Binge drinking at times, worse with stress. Drug use: Yes Types: Marijuana Comment: Occassional marijuana, 03/2014. Huffed spray paint and glue briefly, ages 8-9. Whippets inmid to late teens. TO EXAM: BP 118/96 Pulse 103 Resp 18 Ht 177 cm (5' 9.69) Wt 96.6 kg (213 lb) SpO2 96% BMI 30.84kg/m PHYSICAL EXAM: General Appearance: Well appearing, alert, in no acute distress, well-hydrated, well nourished.. Skin: Skin color, texture, turgor normal, no suspicious rashes or lesions. Head: Normocephalic, no masses, lesions, tenderness or abnormalities. Eyes: Anicteric sclera. Pupils are equally round and reactive to light. Extraocular movements are intact. . Ears: External ears normal, canals clear. Oropharynx: Lips, mucosa, and tongue normal, teeth and gums normal, oropharynx normal. Neck: Supple, no adenopathy; thyroid symmetric, normal size, no bruits. Lungs: Lungs clear to auscultation. No wheezing, rhonchi, rales.. Heart: RRR without murmur, gallop, or rubs. No ectopy. Abdomen: Abdomen soft, non-tender. Bowel sounds normal. No masses, organomegaly. Extremities: No deformities, edema, skin discoloration, clubbing or cyanosis. Good capillary refill. . Neurologic: Gait normal. ASSESSMENT/PLAN: 1. Chest pain, unspecified type - ICD9: 786.50, ICD10: R07.9 (primary diagnosis) Chest pain of unclear etiology, patient with significant risk factor(s) of Hypertension, Hyperlipidemia and history of CAD - Stress testing- see orders - Referral to Cardiology - ECG COMPLETE - SR with no ST changes. Similar to previous. - CARVEDILOL 3.125 MG TABLET - CONSULT TO CARDIOLOGY - [place] CARDIAC PERF STRESS/PHARM - PRE-PROCEDURE & PRE-OPERATIVE COVID - LEXISCAN 0.4 MG/5 ML INTRAVENOUS SYRINGE - INSERT IV ([place]) - IV DISCONTINUE He previously followed with with [facility], however he would like to get established with [facility]. Referral placed. We will go ahead and order stress testing. He is aware to proceed to the emergency room with any sustained chest pain or chest pain accompanied by other symptoms. He has been off of all of his medications however does admit that he has been taking his daily aspirin. We will go ahead and start a low-dose carvedilol. We will hold off on other blood pressure medications at this time since blood pressure is controlled. 2. GERD without esophagitis - ICD9: 530.81, ICD10: K21.9 Restart omeprazole. - MAGNESIUM BLD - OMEPRAZOLE 20 MG CAPSULE,DELAYED RELEASE 3. Anxiety and depression - ICD9: 300.00, 311, ICD10: F41.9, F32.A Restart sertraline. 1/2 pill daily X 1 week; then increase to a whole pill daily. Use BuSpar as needed. Discussed getting reestablished or returning to psychiatry. Patient is in agreement. - SERTRALINE 50 MG TABLET - BUSPIRONE 5 MG TABLET 4. Fatigue, unspecified type - ICD9: 780.79, ICD10: R53.83 - CBC + DIFF - FOLATE SERUM - TSH BLD - IRON + TIBC - FERRITIN BLD - VITAMIN B12 BLOOD 5. Snoring - ICD9: 786.09, ICD10: R06.83 Discussed possible sleep study. Does not think that he would be able to tolerate CPAP treatment. He will consider sleep study. 6. Hypertension, essential - ICD9: 401.9, ICD10: I10 - fair control Restart carvedilol today. - COMP METABOLIC PANEL 7. Chronic alcohol abuse - ICD9: 305.00, ICD10: F10.10 - FOLATE SERUM - MAGNESIUM BLD - THIAMINE HCL (VITAMIN B1) 100 MG TABLET - FOLIC ACID 1 MG TABLET 8. 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 - ICD9: V45.82, ICD10: Z95.5 - LIPID PANEL BASIC - CARVEDILOL 3.125 MG TABLET - ASPIRIN 81 MG TABLET,DELAYED RELEASE - CONSULT TO CARDIOLOGY 9. Renal insufficiency - ICD9: 593.9, ICD10: N28.9 - COMP METABOLIC PANEL 10. Acute right-sided low back pain without sciatica - ICD9: 724.2, ICD10: M54.50 - CYCLOBENZAPRINE 10 MG TABLET 11. Bilateral carotid artery stenosis - ICD9: 433.10, 433.30, ICD10: I65.23 Last imaging was 2 years ago. We will go ahead and recheck this now. - US CAROTID ARTERIES [facility] 12. Elevated glucose - ICD9: 790.29, ICD10: R73.09 - HGB A1C 13. Hypertriglyceridemia - ICD9: 272.1, ICD10: E78.1 We will get fasting lipids. Restart atorvastatin high-dose. - ATORVASTATIN 80 MG TABLET 14. Chronic insomnia - ICD9: 780.52, ICD10: F51.04 - TRAZODONE 50 MG TABLET 15. Diverticulitis - ICD9: 562.11, ICD10: K57.92 - CONSULT TO GASTROENTEROLOGY 16. Encounter for screening for cardiovascular disorders - ICD9: V81.2, ICD10: Z13.6 - [place] CARDIAC PERF STRESS/PHARM We will go ahead and get stress testing due to symptoms in patient known to have history of non-STEMI as well as drug-eluting stent in the left circumflex. Unable to exercise due to pain, deconditioning, and dizziness. Discussed treatment plan and patient voices understanding. Patient's questions answered appropriately. Medications and potential side effects were discussed and patient voices understanding. Return to the office as scheduled or as needed for worsening/no improvement. Plan to recheck in 2 - 3 weeks. Sooner if needed. Keren Kwon APRN.CNP The patient indicates understanding of these issues and agrees with the plan. This note was partially generated using [employer] voice recognition system. Note was reviewed for accuracy. There may be minor misspellings or grammar miscues with [employer] voice recognition. I spent a total of 60 minutes on the date of the service which included preparing to see the patient, [id number] patient care, completing clinical documentation, obtaining and/or reviewing separately obtained history, performing a medically appropriate examination, counseling and educating the pat ient/family/caregiver, ordering medications, tests, or procedures and care coordination (not separately reported). [facility] Author Shakeel Valera [facility] May 16, 2023 11:11am Note Date/Time May 16, 2023 1 1:08am [facility] Medical Records Department [address] [place] [id number] Instructions for Home/Discharge Instructions 05/16/23 1108 MR#: [id number] Acct: [id number] Name: BETHANY MONTALVO Rep #:[id number] : 1965 57 From: Shakeel rendon MD PCP: XUAN Armendariz Status:ADM I N Discharge Instructions Diet Discharge Diet: Low fat / Low cholesterol Activity Discharge Activity: Return to Normal Activity Dressing / Incision Call your doctor if you observe: Fever of 101 or Higher, Shortness of breath, Dizziness, Fainting spells, Swelling in the ankles, Chest pain and Increased palpitations (irregular heartbeat) Follow Up Care Test Results: Test results from this visit will be discussed in further detail at your follow- up appointment, if applicable. Discharge Plan Admission Admit Date/Time: 05/13/23 16:10 Attending Provider: Shakeel Valera Primary Care Provider: Keren Kwon NP Consulting Providers: Lorena Bennett Instructions Additional Instructions / Restrictions: Follow-up with your PCP in 3 to 5 days to obtain outpatient lab work to monitor your liver function as well as your kidney function. Discharge Orders/Prescriptions Prescriptions: Continued atorvastatin 80 mg tablet 80 mg PO QHS Qty: 30 12RF carvedilol 12.5 mg tablet 6.25 mg PO BID Rx Instructions: must administer with a meal/food trazodone 50 mg tablet 50 mg PO QHS nitroglycerin 0.4 mg tablet, sublingual 0.4 mg SUBLINGUAL Q5M PRN (Reason: Chest Pain) Qty: 25 3RF ezetimibe 10 mg tablet 10 mg PO DAILY magnesium oxide 400 mg (241.3 mg magnesium) tablet 400 mg PO BID omeprazole 20 MG capsule 20 mg PO DAILY Patient Comments: REFLUX cyclobenzaprine 10 MG tablet 10 mg PO PRN PRN (Reason: Pain) aspirin 81 MG tablet,delayed release (DR/EC) 81 mg PO DAILY L.acidoph, paracasei,B. lactis 1 EACH capsule 1 ea PO DAILY sertraline 100 MG tablet 50 mg PO DAILY Patient Comments: Take 1 tablet once a day. buspirone 10 MG tablet 10 mg PO TID Patient Comments: Take 1 tablet by mouth three times a day albuterol sulfate 1 INHALER inhaler 1 - 2 puff inhalation Q4H PRN PRN (Reason: Wheezing) Qty: 1 0RF amlodipine 10 MG tablet 10 mg PO DAILY Qty: 30 0RF ondansetron 4 mg tablet,disintegrating 4 mg PO Q8H PRN (Reason: nausea and vomiting) Qty: 10 0RF dicyclomine 10 mg capsule 20 mg PO Q6H PRN (Reason: abdominal pain) Qty: 20 0RF Held lisinopril 10 mg tablet 10 mg PO DAILY Hold Instructions: Resume on 05/20/23. Referrals / Follow Up: Haagen,Keren CHIEF CONTROLLER, CHIEF CONTROLLER-C [Primary Care Provider] - Within 1 Week Disposition Disposition (needs filled in before D/C Order can be placed): Home, Self Care 05/16/23 1111<Electronically signed by Shakeel Valera MD>Shakeel Valera MD CC: XUAN Kwon; Dr. Lorena Bennett, DO ~ Signed [facility] Work Phone: Evaluation note* Diagnosis Chest pain, unspecified type- Primary GERD without esophagitis Esophageal reflux Anxiety and depression Dysthymic disorder Fatigue, unspecified type Snoring Other dyspnea and respiratory abnormality Hypertension, essential Unspecified essential hypertension Chronic alcohol abuse Alcohol abuse, unspecified 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 Renal insufficiency Unspecified disorder of kidney and ureter Acute right-sided low back pain without sciatica Bilateral carotid artery stenosis Occlusion and stenosis of carotid artery without mention of cerebral infarction Elevated glucose Other abnormal glucose Hypertriglyceridemia Pure hyperglyceridemia Chronic insomnia Insomnia, unspecified Diverticulitis Diverticulitis of colon (without mention of hemorrhage) Encounter for screening for cardiovascular disorders Screening for other and unspecified cardiovascular conditions documented [facility] this [facility] noteNo assessment information availableWEast [facility] Work Phone: Evaluation note* Diagnosis Serum potassium elevated- Primary Hyperpotassemia NSTEMI (non-ST elevated myocardial infarction) (HCC) Acute myocardial infarction, subendocardial infarction, episode of care unspecified Hypertriglyceridemia Pure hyperglyceridemia Hyperlipidemia, mixed Mixed hyperlipidemia [facility] Upper back pain- Primary Function kidney decreased Unspecified disorder of kidney and ureter [facility] Diagnosis Acute cough- Primary Hypertension, essential Unspecified essential hypertension URI, acute Acute upper respiratory infections of unspecified site [facility] Diagnosis Sinobronchitis- Primary Unspecified sinusitis (chronic) Anxiety and depression Dysthymic disorder Hypertension, essential Unspecified essential hypertension Hypertriglyceridemia Pure hyperglyceridemia Chronic alcohol abuse Alcohol abuse, unspecified Chest pain, unspecified type 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 Chronic insomnia Insomnia, unspecified GERD without esophagitis Esophageal reflux Acute right-sided low back pain without sciatica Dermatitis Contact dermatitis and other eczema, due to unspecified cause [facility] this [facility]* Diagnosis Anxiety and depression Dysthymic disorder Hypertension, essential Unspecified essential hypertension Hypertriglyceridemia Pure hyperglyceridemia Chronic alcohol abuse Alcohol abuse, unspecified 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 Acute right-sided low back pain without sciatica documented [facility] this [facility]* Diagnosis Body aches- Primary Generalized pain Flu-like symptoms Other general symptoms [facility] this [facility]* Diagnosis Foot pain, right- Primary Pain in limb documented [facility] this [facility]* Diagnosis Hypertension, essential- Primary Unspecified essential hypertension GERD without esophagitis Esophageal reflux Acute right-sided low back pain without sciatica Anxiety and depression Dysthymic disorder Hypertriglyceridemia Pure hyperglyceridemia Chronic alcohol abuse Alcohol abuse, unspecified 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 Renal insufficiency Unspecified disorder of kidney and ureter Special screening examination for viral disease Special screening examination for unspecified viral disease Chronic insomnia Insomnia, unspecified Bilateral carotid artery stenosis Occlusion and stenosis of carotid artery without mention of cerebral infarction documented [facility]* Diagnosis Chest pain, unspecified type- Primary 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 Acute right-sided low back pain without sciatica Hypertension, essential Unspecified essential hypertension Thrombocytopenia (HCC) Thrombocytopenia, unspecified Chronic alcohol abuse Alcohol abuse, unspecified [facility]* Diagnosis Onset Date Resolution Status Chest pain acute WIL[place] (dyspnea on exertion) [place] Fatigue acute Tobacco use acute Hyperlipidemia chronic Hypertension chronic Stented coronary artery synchronizer roberta Lung nodule acute COPD (chronic obstructive pulmonary disease) chronic [facility] Work Phone: Evaluation note* Diagnosis Elevated liver enzymes- Primary Other nonspecific abnormal serum enzyme levels Hypomagnesemia Disorders of magnesium metabolism [facility]* Diagnosis Onset Date Resolution Status Chest pain acute WIL[place] (dyspnea on exertion) [place] Hyperlipidemia chronic Hypertension chronic Stented coronary artery synchronizer roberta COPD (chronic obstructive pulmonary disease) chronic Carotid artery disease chron ic Chronic kidney disease chron ic COPD (chronic obstructive pulmonary disease) chronic Coronary artery disease synchronizer roberta Hyperlipidemia chronic Hypertension chronic History of non-ST elevation myocardial infarction (NSTEMI) resolved [facility] Work Phone: Evaluation note* Diagnosis Influenza-like illness- Primary Influenza with other respiratory manifestations Hypertension, essential Unspecified essential hypertension [facility] Diagnosis Onset Date Resolution Status Carotid artery disease chron ic Chronic kidney disease chron ic COPD (chronic obstructive pulmonary disease) chronic Coronary artery disease synchronizer roberta Hyperlipidemia chronic Hypertension chronic History of non-ST elevation myocardial infarction (NSTEMI) resolved Abdominal pain acute Acidosis, lactic acute Acute dehydration acute LUZ MARIA (acute kidney injury) [place] Alcohol withdrawal acute Alcoholic hepatitis acute Dehydration acute Nausea & vomiting acute [facility] Work Phone: Evaluation note* Diagnosis Onset Date Resolution Status Carotid artery disease chron ic Chronic kidney disease chron ic COPD (chronic obstructive pulmonary disease) chronic Coronary artery disease synchronizer roberta Hyperlipidemia chronic Hypertension chronic History of non-ST elevation myocardial infarction (NSTEMI) resolved Abdominal pain acute Acidosis, lactic acute Acute dehydration acute LUZ MARIA (acute kidney injury) [place] Alcohol withdrawal acute Alcoholic hepatitis acute Dehydration acute Hyperbilirubinemia acute Nausea vomiting and diarrhea acute Transaminitis acute [facility] Work Phone: Evaluation note* Diagnosis Onset Date Resolution Status Noncompliance with medications acute Carotid artery disease chron ic Chronic kidney disease chron ic COPD (chronic obstructive pulmonary disease) chronic Coronary artery disease synchronizer roberta Hyperlipidemia chronic Hypertension chronic Nicotine dependence chronic History of non-ST elevation myocardial infarction (NSTEMI) resolved [facility] Work Phone: Evaluation note* Diagnosis Coronary artery disease due to lipid rich plaque- Primary Encounter for immunization Need for other specified prophylactic vaccination against single bacterial disease Hypertriglyceridemia Pure hyperglyceridemia GERD without esophagitis Esophageal reflux Anxiety and depression Dysthymic disorder Hypomagnesemia Disorders of magnesium metabolism Chronic alcohol abuse Alcohol abuse, unspecified Chronic insomnia Insomnia, unspecified Acute right-sided low back pain without sciatica Moderate hypertension Unspecified essential hypertension Screening for prostate cancer Special screening for malignant neoplasm of prostate Screening for colon cancer Special screening for malignant neoplasms, colon Bilateral carotid artery stenosis Occlusion and stenosis of carotid artery without mention of cerebral infarction [facility] Diagnosis Family hx of colon cancer- Primary Family history of malignant neoplasm of gastrointestinal tract Screening for colon cancer Special screening for malignant neoplasms, colon Hx of colonic polyps Personal history of colonic polyps documented [facility] Diagnosis Sore throat- Primary Acute pharyngitis Injury of right elbow, initial encounter Viral illness Unspecified viral infection, in conditions classified elsewhere and of unspecified site Injury of right elbow, initial encounter [facility] of right elbow, initial encounter [facility] Diagnosis Anxiety and depression Dysthymic disorder [facility] Diagnosis Acute cough- Primary Acute cough [facility] Diagnosis Acute cough [facility] Diagnosis Anxiety and depression Dysthymic disorder [facility] Diagnosis Hyponatremia- Primary Hyposmolality and/or hyponatremia Elevated alkaline phosphatase level Other nonspecific abnormal serum enzyme levels Elevated PSA Elevated prostate specific antigen (PSA) Elevated hemoglobin (HCC) Other hemoglobinopathies [facility] Diagnosis Acute pain of left knee- Primary Moderate hypertension Unspecified essential hypertension [facility] Diagnosis Acute pain of left knee [facility] Diagnosis Acute pain of left knee [facility] Elevated PSA- Primary Elevated prostate specific antigen (PSA) Elevated alkaline phosphatase level Other nonspecific abnormal serum enzyme levels [facility] Diagnosis Acute pain of left knee- Primary Hx of non-ST elevation myocardial infarction (NSTEMI) Old myocardial infarction Hypertension, unspecified type Elevated alkaline phosphatase level Other nonspecific abnormal serum enzyme levels Elevated PSA Elevated prostate specific antigen (PSA) Acute gout of left knee, unspecified cause Chronic alcohol abuse Alcohol abuse, unspecified [facility] Diagnosis Elevated alkaline phosphatase level Other nonspecific abnormal serum enzyme levels [facility] Diagnosis Hepatosplenomegaly- Primary Other chronic nonalcoholic liver disease [facility] Diagnosis Hypertension, essential- Primary Unspecified essential hypertension Current severe episode of major depressive disorder without psychotic features, unspecified whether recurrent (HCC) Alcohol abuse Alcohol abuse, unspecified Acute pain of left knee [facility] Diagnosis Elevated PSA- Primary Elevated prostate specific antigen (PSA) BPH with obstruction/lower urinary tract symptoms Hypertrophy of prostate with urinary obstruction and other lower urinary tract symptoms (LUTS) ETOH abuse Alcohol abuse, unspecified documented in this encounter [facility] note* Diagnosis Hypertension, essential- Primary Unspecified essential hypertension Elbow pain, right Pain in joint, upper arm Alcohol abuse Alcohol abuse, unspecified Current severe episode of major depressive disorder without psychotic features, unspecified whether recurrent (HCC) Hepatosplenomegaly Other chronic nonalcoholic liver disease Hypertension, unspecified type Elevated PSA Elevated prostate specific antigen (PSA) Anxiety and depression Dysthymic disorder Chronic insomnia Insomnia, unspecified documented in this encounter [facility] note* Diagnosis Hypertension, unspecified type documented in this encounter [facility] note* Diagnosis Acute right-sided low back pain without sciatica documented in this encounter [facility] note* Diagnosis Medial epicondylitis, right elbow- Primary Elbow pain, right Pain in joint, upper arm documented in this encounter [facility] note* Diagnosis Hypomagnesemia Disorders of magnesium metabolism Chronic alcohol abuse Alcohol abuse, unspecified Hypertension, unspecified type documented in this encounter [facility] note* Diagnosis Elevated PSA- Primary Elevated prostate specific antigen (PSA) documented in this encounter [facility] note* Diagnosis Hypertension, unspecified type documented in this encounter [facility] note* Diagnosis Acute right-sided low back pain without sciatica documented in this encounter [facility] note* Diagnosis Lower abdominal pain- Primary Abdominal pain, other specified site Diarrhea, unspecified type documented in this encounter [facility] for referral (narrative)* Diagnostic Procedure Only (Routine) - Pending Review Specialty Diagnoses / Procedures Referred By Contac t Referred To Contact [facility]LE[facility]CTIONAL [facility]AGING Diagnoses Chest pain, unspecified type Encounter for screening for cardiovascular disorders Procedures NM CARDIAC PERF STRESS/PHARM MYOCARDIAL SPECT MULTIPLE STUDIES Keren Kwon APRN.CNP [address] [place] [address] Molecular & Functional Imaging [address] [place] [address] Referral ID Status Reason Start Date Expiration Date Visits Requested Visits Authorized [id number] Pending Review Auto-Generat ed Referral 11/01/2021 12/01/2022 1 1 * Consult, Test, Treat (Routine) - Authorized Specialty Diagnoses / Procedures Referred By Contac t Referred To Contact Gastroenterology Diagnoses Diverticulitis Procedures CONSULT TO GASTROENTEROLOGY OFFICE/OUTPATIENT [facility] 60-74 MINUTES Keren Kwon APRN.DIGITAL SALES MANAGER [address] [place] [address] Referral ID Status Reason Start Date Expiration Date Visits Requested Visits Authorized [id number] Authorized PCP Requested Referral 11/01/2021 11/01/2022 1 1 * Consult, Test, Treat (Routine) - Authorized Specialty Diagnoses / Procedures Referred By Contac t Referred To Contact Cardiology Diagnoses Chest pain, unspecified type 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 Procedures CONSULT TO CARDIOLOGY OFFICE/OUTPATIENT [facility] 60-74 MINUTES Keren Kwon APRN.DIGITAL SALES MANAGER [address] [place] [address] Referral ID Status Reason Start Date Expiration Date Visits Requested Visits Authorized [id number] Authorized PCP Requested Referral 11/01/2021 11/01/2022 1 1 * Outpatient Procedure (Routine) - Pending Review Specialty Diagnoses / Procedures Referred By Contac t Referred To Contact [facility] Diagnoses Bilateral carotid artery stenosis Procedures US CAROTID ARTERIES [facility] DUPLEX SCAN EXTRACRANIAL ART COMPL BI STUDY Keren Kwon APRN.DIGITAL SALES MANAGER [address] [place] [address] [facility] [address] [place] [address] Referral ID Status Reason Start Date Expiration Date Visits Requested Visits Authorized [id number] Pending Review Auto-Generat ed Referral 11/01/2021 11/01/2022 1 1 * Outpatient Procedure (Routine) - Closed Specialty Diagnoses / Procedures Referred By Contac t Referred To Contact [facility] Diagnoses Chest pain, unspecified type Procedures ECG COMPLETE ECG ROUTINE ECG W/LEAST 12 LDS W/I&R Keren Kwon APRN.DIGITAL SALES MANAGER [address] [place] [address] [facility] [place] [facility] [address] [place] [id number] Referral ID Status Reason Start Date Expiration Date V isits Requested Visits Authorized [id number] Closed Auto-Generate d Referral 11/01/2021 11/01/2022 1 1 [facility] for referral (narrative)* Diagnostic Procedure Only (Urgent) - Closed Specialty Diagnoses / Procedures Referred By Contac t Referred To Contact XR IMAGING Diagnoses Foot pain, right Procedures XR FOOT GENERAL 3V AP/LAT/OBL RIGHT RADEX FOOT COMPLETE MINIMUM 3 VIEWS Ziggy Mobley APRN.DIGITAL SALES MANAGER [address] [place] [address] Xr Imaging Referral ID Status Reason Start Date Expiration Date V isits Requested Visits Authorized [id number] Closed Auto-Generate d Referral 06/25/2022 07/25/2023 1 1 [facility] for referral (narrative)* Outpatient Procedure (Routine) - Authorized Specialty Diagnoses / Procedures Referred By Contac t Referred To [facility] Diagnoses Bilateral carotid artery stenosis Procedures US CAROTID ARTERIES [facility] DUPLEX SCAN EXTRACRANIAL ART COMPL BI STUDY Keren Kwon APRN.DIGITAL SALES MANAGER [address] [place] [address] [facility] [address] [place] [address] Referral ID Status Reason Start Date Expiration Date Visits Requested Visits Authorized [id number] Authorized Auto-Generat ed Referral 11/05/2022 11/05/2023 1 1 * Medication Prior Authorization - Closed Specialty Diagnoses / Procedures Referred By Contac t Referred To Contact Diagnoses 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 Keren Kwon APRN.DIGITAL SALES MANAGER [address] [place] [address] Referral ID Status Reason Start Date Expiration Date Visits Re quested Visits Authorized [id number] Closed 1 1 [facility] for referral (narrative)* Diagnostic Procedure Only (Routine) - Pending Review Specialty Diagnoses / Procedures Referred By Contac t Referred To Contact US IMAGING Diagnoses Elevated liver enzymes Procedures US ABD RIGHT UPPER QUADRANT US ABDOMINAL REAL TIME W/IMAGE LIMITED Keren Kwon APRN.DIGITAL SALES MANAGER [address] [place] [address] Us Imaging Referral ID Status Reason Start Date Expiration Date Visits Requested Visits Authorized [id number] Pending Review Auto-Generat ed Referral 12/26/2022 01/25/2024 1 1 [facility] for referral (narrative)* Outpatient Procedure (Routine) - Authorized Specialty Diagnoses / Procedures Referred By Contac t Referred To [facility] Diagnoses Bilateral carotid artery stenosis Procedures US CAROTID ARTERIES [facility] DUPLEX SCAN EXTRACRANIAL ART COMPL BI STUDY Keren Kwon APRN.DIGITAL SALES MANAGER [address] [place] [address] [facility] [address] [place] [address] Referral ID Status Reason Start Date Expiration Date Visits Requested Visits Authorized [id number] Authorized Auto-Generat ed Referral 4 06/12/2025 1 1 * Consult, Test, Treat (Routine) - Authorized Specialty Diagnoses / Procedures Referred By Contac t Referred To Contact General Surgery Diagnoses Screening for colon cancer Procedures CONSULT TO GENERAL SURGERY OFFICE/OUTPATIENT [facility] 60 MINUTES Keren Kwon APRN.DIGITAL SALES MANAGER [address] [place] [address] Referral ID Status Reason Start Date Expiration Date Visits Requested Visits Authorized [id number] Authorized PCP Requested Referral 06/12/2025 1 1 [facility] for referral (narrative)* Diagnostic Procedure Only (Urgent) - Closed Specialty Diagnoses / Procedures Referred By Contac t Referred To Contact XR IMAGING Diagnoses Injury of right elbow, initial encounter Procedures XR ELBOW SPECIAL VIEWS AP/LAT/OTHER RIGHT RADEX ELBOW COMPLETE MINIMUM 3 VIEWS Desmond Duncan APRN.DIGITAL SALES MANAGER [address] [place] [address] [place] [address] Referral ID Status Reason Start Date Expiration Date V isits Requested Visits Authorized [id number] Closed Auto-Generate d Referral 07/09/2024 08/08/2025 1 1 [facility] for referral (narrative)* Diagnostic Procedure Only (Routine) - Closed Specialty Diagnoses / Procedures Referred By Contac t Referred To Contact XR IMAGING Diagnoses Acute pain of left knee Procedures XR KNEE GENERAL 4V AP BOTH/PA BOTH/LAT/MERC LEFT RADIOLOGIC EXAM KNEE COMPLETE 4/MORE VIEWS Keren Kwon APRN.DIGITAL SALES MANAGER [address] [place] [address] [place] [address] Referral ID Status Reason Start Date Expiration Date V isits Requested Visits Authorized [id number] Closed Auto-Generate d Referral 08/11/2024 09/10/2025 1 1 [facility] for referral (narrative)* Diagnostic Procedure Only (Routine) - Authorized Specialty Diagnoses / Procedures Referred By Contac t Referred To Contact US IMAGING Diagnoses Elevated alkaline phosphatase level Procedures US ABD RIGHT UPPER QUADRANT US ABDOMINAL REAL TIME W/IMAGE LIMITED Keren Kwon APRN.DIGITAL SALES MANAGER [address] [place] [address] [place] [address] Referral ID Status Reason Start Date Expiration Date Visits Requested Visits Authorized [id number] Authorized Auto-Generat ed Referral 08/14/2024 09/13/2025 1 1 * Consult, Test, Treat (Routine) - Authorized Specialty Diagnoses / Procedures Referred By Contac t Referred To Contact Urology Diagnoses Elevated PSA Procedures CONSULT TO UROLOGY OFFICE/OUTPATIENT [facility] 60 MINUTES Keren Kwon APRN.DIGITAL SALES MANAGER [address] [place] [address] Referral ID Status Reason Start Date Expiration Date Visits Requested Visits Authorized [id number] Authorized PCP Requested Referral 08/12/2024 08/12/2025 1 1 [facility] for referral (narrative)* Diagnostic Procedure Only (Routine) - Closed Specialty Diagnoses / Procedures Referred By Contac t Referred To Contact US IMAGING Diagnoses Elevated alkaline phosphatase level Procedures US ABD RIGHT UPPER QUADRANT US ABDOMINAL REAL TIME W/IMAGE LIMITED Keren Kwon APRN.DIGITAL SALES MANAGER [address] [place] [address] [place] [address] Referral ID Status Reason Start Date Expiration Date V isits Requested Visits Authorized [id number] Closed Auto-Generate d Referral 08/14/2024 09/13/2025 1 1 [facility] for visit Narrative* Diagnostic Procedure Only (Urgent) - Closed Specialty Diagnoses / Procedures Referred By Contac t Referred To Contact XR IMAGING Diagnoses Foot pain, right Procedures XR FOOT GENERAL 3V AP/LAT/OBL RIGHT RADEX FOOT COMPLETE MINIMUM 3 VIEWS Ziggy Mobley APRN.DIGITAL SALES MANAGER [address] [place] [address] [place] [address] Referral ID Status Reason Start Date Expiration Date V isits Requested Visits Authorized [id number] Closed Auto-Generate d Referral 06/25/2022 07/25/2023 1 1 [facility] for visit Narrative* Diagnostic Procedure Only (Urgent) - Closed Specialty Diagnoses / Procedures Referred By Contac t Referred To Contact XR IMAGING Diagnoses Injury of right elbow, initial encounter Procedures XR ELBOW SPECIAL VIEWS AP/LAT/OTHER RIGHT RADEX ELBOW COMPLETE MINIMUM 3 VIEWS Desmond Duncan, PLANT GENERAL MANAGER.DIGITAL SALES MANAGER [address] [place] [address] [place] [address] Referral ID Status Reason Start Date Expiration Date V isits Requested Visits Authorized [id number] Closed Auto-Generate d Referral 07/09/2024 08/08/2025 1 1 [facility] Diagnostic Procedure Only (Routine) - Closed Specialty Diagnoses / Procedures Referred By Contac t Referred To Contact XR IMAGING Diagnoses Acute pain of left knee Procedures XR KNEE GENERAL 4V AP BOTH/PA BOTH/LAT/MERC LEFT RADIOLOGIC EXAM KNEE COMPLETE 4/MORE VIEWS Keren Kwon, PLANT GENERAL MANAGER.DIGITAL SALES MANAGER [address] [place] [address] [place] [address] Referral ID Status Reason Start Date Expiration Date V isits Requested Visits Authorized [id number] Closed Auto-Generate d Referral 08/11/2024 09/10/2025 1 1 [facility] Summary Purpose Family History No Family History Records Found Relationship Condition Age at Onset Recorded Date/T diallo mother Coronary artery disease Unknown father Coronary artery disease Unknown brother Coronary artery disease Unknown Myocardial infarction Unknown sister Coronary artery disease Unknown Advance Directives No Advanced Directives Records Found Advance Directive Response Recorded Date/ Time Advance Directives No January 12 12:30pm Living Will No November 08, 2021 6:00pm Power of Photographer No November 08 6:00pm Advance Directive Response Recorded Date/ Time Advance Directives No January 12 12:30pm Living Will No January 02, 2023 8:59am Power of Photographer No January 02 8:59am Advance Directive Response Recorded Date/ Time Advance Directives No January 12 12:30pm Living Will No May 13 11:47am Power of Photographer No May 13, 2023 11:47am Advance Directive Response Recorded Date/ Time Advance Directives No January 12 12:30pm Living Will No May 13 5:41pm Power of Photographer No May 13, 2023 5:41pm Chief Complaint and Reason for Visit Chief Complaint HIGH K Chief Complaint OVERDUE VISIT PREV. AKBAR COMPLAINT Lung Nodule LUNG NODULE Reason for Visit Chest pain WILSON (dyspnea on exertion) Fatigue Tobacco use Hyperlipidemia Hypertension Stented coronary artery Lung nodule COPD (chronic obstructive pulmonary disease) Chief Complaint OVERDUE VISIT PREV. AKBAR COMPLAINT Lung Nodule LUNG NODULE CHEST PAIN, WILSON, CHEST PAIN, WILSON, Reason for Visit Chest pain WILSON (dyspnea on exertion) Fatigue Tobacco use Hyperlipidemia Hypertension Stented coronary artery Lung nodule COPD (chronic obstructive pulmonary disease) Chief Complaint OVERDUE VISIT PREV. AKBAR COMPLAINT Lung Nodule LUNG NODULE CHEST PAIN, WILSON, CHEST PAIN, WILSON, COPD 3 M FU COPD Reason for Visit Chest pain WILSON (dyspnea on exertion) Hyperlipidemia Hypertension Stented coronary artery COPD (chronic obstructive pulmonary disease) Carotid artery disease Chronic kidney disease COPD (chronic obstructive pulmonary disease) Coronary artery disease Hyperlipidemia Hypertension History of non-ST elevation myocardial infarction (NSTEMI) Chief Complaint LUNG NODULE CHEST PAIN, WILSON, CHEST PAIN, WILSON, COPD 3 M FU COPD ETOH DETOX AND NAUSEA/VOMITING Reason for Visit Carotid artery disea se Chronic kidney disease COPD (chronic obstructive pulmonary disease) Coronary artery disease Hyperlipidemia Hypertension History of non-ST elevation myocardial infarction (NSTEMI) Abdominal pain Acidosis, lactic Acute dehydration LUZ MARIA (acute kidney injury) Alcohol withdrawal Alcoholic hepatitis Dehydration Nausea & vomiting Chief Complaint LUNG NODULE CHEST PAIN, WILSON, CHEST PAIN, WILSON, COPD 3 M FU COPD ETOH DETOX AND NAUSEA/VOMITING ETOH DETOX AND NAUSEA/VOMITING ETOH DETOX AND NAUSEA/VOMITING ETOH DETOX AND NAUSEA/VOMITING Reason for Visit Carotid artery disea se Chronic kidney disease COPD (chronic obstructive pulmonary disease) Coronary artery disease Hyperlipidemia Hypertension History of non-ST elevation myocardial infarction (NSTEMI) Abdominal pain Acidosis, lactic Acute dehydration LUZ MARIA (acute kidney injury) Alcohol withdrawal Alcoholic hepatitis Dehydration Hyperbilirubinemia Nausea vomiting and diarrhea Transaminitis Chief Complaint 6 M FU EORDERS Reason for Visit Noncompliance with m edications Carotid artery disease Chronic kidney disease COPD (chronic obstructive pulmonary disease) Coronary artery disease Hyperlipidemia Hypertension Nicotine dependence History of non-ST elevation myocardial infarction (NSTEMI) Health Concerns Infection Onset Date Last Indicated Resolved Time COVID-19 Rule-Out 06/05/2022 06/05/2022 Reason for Referral Specialty Diagnoses / Procedures Referred By Contac t Referred To Contact Gastroenterology Diagnoses Screening for colon cancer Procedures CONSULT TO GASTROENTEROLOGY OFFICE/OUTPATIENT [facility] 60 MINUTES Alma Delia Garza, PLANT GENERAL MANAGER.DIGITAL SALES MANAGER [address] [facility] [place] [address] Referral ID Status Reason Start Date Expiration Date Visits Requested Visits Authorized [id number] Authorized PCP Requested Referral 06/22/2024 06/22/2025 1 1 Specialty Diagnoses / Procedures Referred By Contac t Referred To Contact Orthopedics Diagnoses Injury of right elbow, initial encounter Procedures CONSULT TO ORTHOPAEDICS OFFICE/OUTPATIENT [facility] 60 MINUTES Desmond Duncan, PLANT GENERAL MANAGER.DIGITAL SALES MANAGER [address] [place] [address] Referral ID Status Reason Start Date Expiration Date Visits Requested Visits Authorized [id number] Authorized PCP Requested Referral 07/09/2025 1 1 Specialty Diagnoses / Procedures Referred By Contac t Referred To Contact XR IMAGING Diagnoses Injury of right elbow, initial encounter Procedures XR ELBOW SPECIAL VIEWS AP/LAT/OTHER RIGHT RADEX ELBOW COMPLETE MINIMUM 3 VIEWS Desmond Duncan, PLANT GENERAL MANAGER.DIGITAL SALES MANAGER [address] [facility] [place] [address] [place] [address] Referral ID Status Reason Start Date Expiration Date V isits Requested Visits Authorized [id number] Closed Auto-Generate d Referral 07/09/2024 08/08/2025 1 1 Specialty Diagnoses / Procedures Referred By Contac t Referred To Contact Cardiology Diagnoses Hx of non-ST elevation myocardial infarction (NSTEMI) Procedures CONSULT TO CARDIOLOGY OFFICE/OUTPATIENT [facility] 60 MINUTES Keren Kwon, PLANT GENERAL MANAGER.DIGITAL SALES MANAGER [address] [place] [address] Referral ID Status Reason Start Date Expiration Date Visits Requested Visits Authorized [id number] Authorized PCP Requested Referral 08/24/2024 08/24/2025 1 1 Additional Source Comments (unrecognized sect ion and content) No Status Records FoundNo Status Records FoundNo Status Records FoundNo Status Records Found INFORMATION SOURCE (unrecogn ized section and content) DATE CREATED AUTHOR 01/10/2018 [facility] DATE CREATED AUTHOR AUTHOR'S ORGANIZ ATION 01/10/2018 [facility] DATE CREATED AUTHOR AUTHOR'S ORGANIZ ATION 02/01/2025 [facility] DATE CREATED AUTHOR AUTHOR'S ORGANIZ ATION 02/11/2025 [facility] Source Comments (unrecognize d section and content) In the event this informatio n is protected by the Federal Confidentiality of Alcohol and Drug Abuse Patient Records regulations: The Federal rules restrict any use of the information to criminally investigate or prosecute any alcohol or drug abuse patient.[facility] the event this information is protected by the Federal Confidentiality of Alcohol and Drug Abuse Patient Records regulations: The Federal rules restrict any use of the information to criminally investigate or prosecute any alcohol or drug abuse patient.[facility] the event this information is protected by the Federal Confidentiality of Alcohol and Drug Abuse Patient Records regulations: The Federal rules restrict any use of the information to criminally investigate or prosecute any alcohol or drug abuse patient.[facility] Hospital[facility] the event this information is protected by the Federal Confidentiality of Alcohol and Drug Abuse Patient Records regulations: The Federal rules restrict any use of the information to criminally investigate or prosecute any alcohol or drug abuse patient.[facility] Hospital[facility] the event this information is protected by the Federal Confidentiality of Alcohol and Drug Abuse Patient Records regulations: The Federal rules restrict any use of the information to criminally investigate or prosecute any alcohol or drug abuse patient.[facility] Hospital[facility] the event this information is protected by the Federal Confidentiality of Alcohol and Drug Abuse Patient Records regulations: The Federal rules restrict any use of the information to criminally investigate or prosecute any alcohol or drug abuse patient.[facility] Hospital[facility] the event this information is protected by the Federal Confidentiality of Alcohol and Drug Abuse Patient Records regulations: The Federal rules restrict any use of the information to criminally investigate or prosecute any alcohol or drug abuse patient.[facility] Hospital[facility] the event this information is protected by the Federal Confidentiality of Alcohol and Drug Abuse Patient Records regulations: The Federal rules restrict any use of the information to criminally investigate or prosecute any alcohol or drug abuse patient.[facility] HospitalIn the event this information is protected by the Federal Confidentiality of Alcohol and Drug Abuse Patient Records regulations: The Federal rules restrict any use of the information to criminally investigate or prosecute any alcohol or drug abuse patient.[facility] HospitalIn the event this information is protected by the Federal Confidentiality of Alcohol and Drug Abuse Patient Records regulations: The Federal rules restrict any use of the information to criminally investigate or prosecute any alcohol or drug abuse patient.[facility] HospitalIn the event this information is protected by the Federal Confidentiality of Alcohol and Drug Abuse Patient Records regulations: The Federal rules restrict any use of the information to criminally investigate or prosecute any alcohol or drug abuse patient.[facility] HospitalIn the event this information is protected by the Federal Confidentiality of Alcohol and Drug Abuse Patient Records regulations: The Federal rules restrict any use of the information to criminally investigate or prosecute any alcohol or drug abuse patient.[facility] HospitalIn the event this information is protected by the Federal Confidentiality of Alcohol and Drug Abuse Patient Records regulations: The Federal rules restrict any use of the information to criminally investigate or prosecute any alcohol or drug abuse patient.[facility] HospitalIn the event this information is protected by the Federal Confidentiality of Alcohol and Drug Abuse Patient Records regulations: The Federal rules restrict any use of the information to criminally investigate or prosecute any alcohol or drug abuse patient.[facility] HospitalIn the event this information is protected by the Federal Confidentiality of Alcohol and Drug Abuse Patient Records regulations: The Federal rules restrict any use of the information to criminally investigate or prosecute any alcohol or drug abuse patient.[facility] HospitalIn the event this information is protected by the Federal Confidentiality of Alcohol and Drug Abuse Patient Records regulations: The Federal rules restrict any use of the information to criminally investigate or prosecute any alcohol or drug abuse patient.[facility] HospitalIn the event this information is protected by the Federal Confidentiality of Alcohol and Drug Abuse Patient Records regulations: The Federal rules restrict any use of the information to criminally investigate or prosecute any alcohol or drug abuse patient.[facility] HospitalIn the event this information is protected by the Federal Confidentiality of Alcohol and Drug Abuse Patient Records regulations: The Federal rules restrict any use of the information to criminally investigate or prosecute any alcohol or drug abuse patient.[facility] HospitalIn the event this information is protected by the Federal Confidentiality of Alcohol and Drug Abuse Patient Records regulations: The Federal rules restrict any use of the information to criminally investigate or prosecute any alcohol or drug abuse patient.[facility] HospitalIn the event this information is protected by the Federal Confidentiality of Alcohol and Drug Abuse Patient Records regulations: The Federal rules restrict any use of the information to criminally investigate or prosecute any alcohol or drug abuse patient.[facility] HospitalIn the event this information is protected by the Federal Confidentiality of Alcohol and Drug Abuse Patient Records regulations: The Federal rules restrict any use of the information to criminally investigate or prosecute any alcohol or drug abuse patient.[facility] HospitalIn the event this information is protected by the Federal Confidentiality of Alcohol and Drug Abuse Patient Records regulations: The Federal rules restrict any use of the information to criminally investigate or prosecute any alcohol or drug abuse patient.[facility] HospitalIn the event this information is protected by the Federal Confidentiality of Alcohol and Drug Abuse Patient Records regulations: The Federal rules restrict any use of the information to criminally investigate or prosecute any alcohol or drug abuse patient.[facility] HospitalIn the event this information is protected by the Federal Confidentiality of Alcohol and Drug Abuse Patient Records regulations: The Federal rules restrict any use of the information to criminally investigate or prosecute any alcohol or drug abuse patient.[facility] HospitalIn the event this information is protected by the Federal Confidentiality of Alcohol and Drug Abuse Patient Records regulations: The Federal rules restrict any use of the information to criminally investigate or prosecute any alcohol or drug abuse patient.[facility] HospitalIn the event this information is protected by the Federal Confidentiality of Alcohol and Drug Abuse Patient Records regulations: The Federal rules restrict any use of the information to criminally investigate or prosecute any alcohol or drug abuse patient.[facility] HospitalIn the event this information is protected by the Federal Confidentiality of Alcohol and Drug Abuse Patient Records regulations: The Federal rules restrict any use of the information to criminally investigate or prosecute any alcohol or drug abuse patient.[facility] HospitalIn the event this information is protected by the Federal Confidentiality of Alcohol and Drug Abuse Patient Records regulations: The Federal rules restrict any use of the information to criminally investigate or prosecute any alcohol or drug abuse patient.[facility] HospitalIn the event this information is protected by the Federal Confidentiality of Alcohol and Drug Abuse Patient Records regulations: The Federal rules restrict any use of the information to criminally investigate or prosecute any alcohol or drug abuse patient.[facility] HospitalIn the event this information is protected by the Federal Confidentiality of Alcohol and Drug Abuse Patient Records regulations: The Federal rules restrict any use of the information to criminally investigate or prosecute any alcohol or drug abuse patient.[facility] HospitalIn the event this information is protected by the Federal Confidentiality of Alcohol and Drug Abuse Patient Records regulations: The Federal rules restrict any use of the information to criminally investigate or prosecute any alcohol or drug abuse patient.[facility] HospitalIn the event this information is protected by the Federal Confidentiality of Alcohol and Drug Abuse Patient Records regulations: The Federal rules restrict any use of the information to criminally investigate or prosecute any alcohol or drug abuse patient.[facility] HospitalIn the event this information is protected by the Federal Confidentiality of Alcohol and Drug Abuse Patient Records regulations: The Federal rules restrict any use of the information to criminally investigate or prosecute any alcohol or drug abuse patient.[facility] HospitalIn the event this information is protected by the Federal Confidentiality of Alcohol and Drug Abuse Patient Records regulations: The Federal rules restrict any use of the information to criminally investigate or prosecute any alcohol or drug abuse patient.[facility] HospitalIn the event this information is protected by the Federal Confidentiality of Alcohol and Drug Abuse Patient Records regulations: The Federal rules restrict any use of the information to criminally investigate or prosecute any alcohol or drug abuse patient.[facility] HospitalIn the event this information is protected by the Federal Confidentiality of Alcohol and Drug Abuse Patient Records regulations: The Federal rules restrict any use of the information to criminally investigate or prosecute any alcohol or drug abuse patient.[facility] HospitalIn the event this information is protected by the Federal Confidentiality of Alcohol and Drug Abuse Patient Records regulations: The Federal rules restrict any use of the information to criminally investigate or prosecute any alcohol or drug abuse patient.[facility] HospitalIn the event this information is protected by the Federal Confidentiality of Alcohol and Drug Abuse Patient Records regulations: The Federal rules restrict any use of the information to criminally investigate or prosecute any alcohol or drug abuse patient.[facility] HospitalIn the event this information is protected by the Federal Confidentiality of Alcohol and Drug Abuse Patient Records regulations: The Federal rules restrict any use of the information to criminally investigate or prosecute any alcohol or drug abuse patient.[facility] HospitalIn the event this information is protected by the Federal Confidentiality of Alcohol and Drug Abuse Patient Records regulations: The Federal rules restrict any use of the information to criminally investigate or prosecute any alcohol or drug abuse patient.[facility] HospitalIn the event this information is protected by the Federal Confidentiality of Alcohol and Drug Abuse Patient Records regulations: The Federal rules restrict any use of the information to criminally investigate or prosecute any alcohol or drug abuse patient.[facility] HospitalIn the event this information is protected by the Federal Confidentiality of Alcohol and Drug Abuse Patient Records regulations: The Federal rules restrict any use of the information to criminally investigate or prosecute any alcohol or drug abuse patient.[facility] HospitalIn the event this information is protected by the Federal Confidentiality of Alcohol and Drug Abuse Patient Records regulations: The Federal rules restrict any use of the information to criminally investigate or prosecute any alcohol or drug abuse patient.[facility] HospitalIn the event this information is protected by the Federal Confidentiality of Alcohol and Drug Abuse Patient Records regulations: The Federal rules restrict any use of the information to criminally investigate or prosecute any alcohol or drug abuse patient.[facility] HospitalIn the event this information is protected by the Federal Confidentiality of Alcohol and Drug Abuse Patient Records regulations: The Federal rules restrict any use of the information to criminally investigate or prosecute any alcohol or drug abuse patient.[facility] HospitalIn the event this information is protected by the Federal Confidentiality of Alcohol and Drug Abuse Patient Records regulations: The Federal rules restrict any use of the information to criminally investigate or prosecute any alcohol or drug abuse patient.[facility] HospitalIn the event this information is protected by the Federal Confidentiality of Alcohol and Drug Abuse Patient Records regulations: The Federal rules restrict any use of the information to criminally investigate or prosecute any alcohol or drug abuse patient.[facility] HospitalIn the event this information is protected by the Federal Confidentiality of Alcohol and Drug Abuse Patient Records regulations: The Federal rules restrict any use of the information to criminally investigate or prosecute any alcohol or drug abuse patient.[facility] HospitalIn the event this information is protected by the Federal Confidentiality of Alcohol and Drug Abuse Patient Records regulations: The Federal rules restrict any use of the information to criminally investigate or prosecute any alcohol or drug abuse patient.[facility] HospitalIn the event this information is protected by the Federal Confidentiality of Alcohol and Drug Abuse Patient Records regulations: The Federal rules restrict any use of the information to criminally investigate or prosecute any alcohol or drug abuse patient.[facility] HospitalIn the event this information is protected by the Federal Confidentiality of Alcohol and Drug Abuse Patient Records regulations: The Federal rules restrict any use of the information to criminally investigate or prosecute any alcohol or drug abuse patient.[facility] Reason for Visit (unrecogniz ed section and content) Reason Comments Physical needs medication ref ills; c/o senior living covid effects, had covid 3x's; was not hospitalized Reason Comments Results Reason Comments Referral Request Reason Comments report from [facility] ER Reason Comments Chest Congestion cough, sore throat, bodyaches x 2 days Reason Comments urgent care follow up Reason Onset Date Comments Refill Request 03/28/2022 Reason Comments Diarrhea chills, gi upset, he adache and bodyaches x 1 day Reason Comments Pain (foot) x 4 days, hit wall w ith back of foot Reason Comments Recheck Medication follow up /refills Reason Comments ER F/U [facility] ER 01/02/23 dx: v iral gastroenteritis; pulmonary nodule Reason Comments Results Reason Comments Cough ST, diarrhea, bodyac hes x2 days Reason Comments Recheck Medication refills Reason Comments Consult colonoscopy Specialty Diagnoses / Procedures Referred By Corbin soler Referred To Contact General Surgery Diagnoses Screening for colon cancer Procedures CONSULT TO GENERAL SURGERY OFFICE/OUTPATIENT [facility] 60 MINUTES Keren Kwon, GERARDO.DIGITAL SALES MANAGER [address] [place] [address] Referral ID Status Reason Start Date Expiration Date V isits Requested Visits Authorized [id number] Closed PCP Requested Referral 06/12/2024 06/12/2025 1 1 Reason Comments Elbow Injury Right, hit railing a t working, pain x 1 week Sore Throat X 1 week Reason Onset Date Comments Refill Request 07/10/2024 Reason Comments Sore Throat ST, bodyaches and na usea x 1 week Reason Onset Date Comments Refill Request 07/21/2024 Reason Comments ER F/U [facility] ER f/u 07/23/24 dx : L knee pain Reason Onset Date Comments Refill Request 08/19/2024 Reason Comments Results Reason Comments Recheck Follow up L knee gabrielle n Reason Comments Radiology US Specialty Diagnoses / Procedures Referred By Contac t Referred To Contact US IMAGING Diagnoses Elevated alkaline phosphatase level Procedures US ABD RIGHT UPPER QUADRANT US ABDOMINAL REAL TIME W/IMAGE LIMITED Keren Kwon, GERARDO.DIGITAL SALES MANAGER [address] [place] [address] [place] [id number] Referral ID Status Reason Start Date Expiration Date V isits Requested Visits Authorized [id number] Closed Auto-Generate d Referral 08/14/2024 09/13/2025 1 1 Reason Comments Recheck 1 week follow up Reason Comments Appointment Reason Comments Consult Elevated PSA Specialty Diagnoses / Procedures Referred By Contac t Referred To Contact Urology Diagnoses Elevated PSA Procedures CONSULT TO UROLOGY OFFICE/OUTPATIENT [facility] 60 MINUTES Keren Kwon, GERARDO.DIGITAL SALES MANAGER [address] [place] [address] Phone: tel: fax: Referral ID Status Reason Start Date Expiration Date V isits Requested Visits Authorized [id number] Closed PCP Requested Referral 08/12/2024 08/12/2025 1 1 Reason Comments Follow Up 4 week BP Reason Onset Date Comments Refill Request 09/29/2024 Reason Onset Date Comments Refill Request 10/02/2024 Reason Comments Right elbow pain Specialty Diagnoses / Procedures Referred By Contac t Referred To Contact Orthopedics Diagnoses Elbow pain, right Procedures CONSULT TO ORTHOPAEDICS OFFICE/OUTPATIENT COUNT INCLUDES THE [facility] MDM 60 MINUTES Keren Kwon, PLANT GENERAL MANAGER.DIGITAL SALES MANAGER [address] [place] [address] Phone: tel: fax: Referral ID Status Reason Start Date Expiration Date V isits Requested Visits Authorized [id number] Closed PCP Requested Referral 09/28/2024 09/28/2025 1 1 Reason Onset Date Comments Refill Request 11/24/2024 Reason Onset Date Comments Refill Request 12/22/2024 Reason Onset Date Comments Refill Request 01/19/2025 Reason Onset Date Comments Refill Request 02/01/2025 Reason Comments Flu Like Symptoms Upset stomach, dizzy and nausea, diarrhea x 3 days Care Teams (unrecognized sec tion and content) [employer] Relationship Specialty Start Date End Date Keren Kwon, PLANT GENERAL MANAGER.DIGITAL SALES MANAGER [address] [place] [address] PCP - General Family Practice 08/28/18 [employer]er Relationship Specialty Start Date End Date Keren Kwon, PLANT GENERAL MANAGER.DIGITAL SALES MANAGER [address] [place] [address] PCP - General Family Practice 08/28/18 [employer]er Relationship Specialty Start Date End Date Keren Kwon, PLANT GENERAL MANAGER.DIGITAL SALES MANAGER [address] [place] [address] PCP - General Family Practice 08/28/18 [employer]er Relationship Specialty Start Date End Date Keren Kwon, PLANT GENERAL MANAGER.DIGITAL SALES MANAGER [address] [place] [address] PCP - General Family Practice 08/28/18 [employer]er Relationship Specialty Start Date End Date Keren Kwon, PLANT GENERAL MANAGER.DIGITAL SALES MANAGER [address] [place] [address] PCP - General Family Practice 08/28/18 [employer]er Relationship Specialty Start Date End Date Keren Kwon, PLANT GENERAL MANAGER.DIGITAL SALES MANAGER [address] [place] [address] PCP - General Family Practice 08/28/18 [employer] Banker Relationship Specialty Start Date End Date Keren Kwon, PLANT GENERAL MANAGER.DIGITAL SALES MANAGER [address] [place] [address] PCP - General Family Practice 08/28/18 Universal [employer]er Relationship Specialty Start Date End Date Haanne, Keren, PLANT GENERAL MANAGER.DIGITAL SALES MANAGER [address] [place] [address] PCP - General Family Practice 08/28/18 [employer]er Relationship Specialty Start Date End Date Haanne, Keren, PLANT GENERAL MANAGER.DIGITAL SALES MANAGER [address] [place] [address] PCP - General Family Practice 08/28/18 [employer]er Relationship Specialty Start Date End Date Haanne, Keren, PLANT GENERAL MANAGER.DIGITAL SALES MANAGER [address] [place] [address] PCP - General Family Medicine 08/28/18 Universal [employer]er Relationship Specialty Start Date End Date Doyle, Keren, PLANT GENERAL MANAGER.DIGITAL SALES MANAGER [address] [place] [address] PCP - General Family Medicine 08/28/18 Universal [employer]er Relationship Specialty Start Date End Date Nikolai, Keren, PLANT GENERAL MANAGER.DIGITAL SALES MANAGER [address] [place] [address] PCP - General Family Medicine 08/28/18 [employer] Relationship Specialty Start Date End Date Keren Kwon, PLANT GENERAL MANAGER.DIGITAL SALES MANAGER [address] [place] [address] PCP - General Family Medicine 08/28/18 Team Status: Active Member Role Status Dates Keren Kwon CHIEF CONTROLLER, CHIEF CONTROLLER-C Family Provider Active Keren Kwon CHIEF CONTROLLER, CHIEF CONTROLLER-C Primary Care Provider Active Team Status: Inactive Member Role Status Dates Dr. Pema Yang MD Primary Care Provider, Refer ring Provider Active Min An CHIEF CONTROLLER, CHIEF CONTROLLER-C Active Vani Owen CHIEF CONTROLLER, CHIEF CONTROLLER-C Attending Provider Active Team Status: Inactive Member Role Status Dates Keren Kwon CHIEF CONTROLLER, CHIEF CONTROLLER-C Primary Care Provider, Referri ng Provider Active Dr. Alejandro Leon DO Attending Provider Active Team Status: Inactive Member Role Status Dates Dr. Abdoulaye Wesley MD Attending Provider, Emergency Provider Active Keren Kwon CHIEF CONTROLLER, CHIEF CONTROLLER-C Primary Care Provider Active Team Status: Inactive Member Role Status Dates Keren Kwon CHIEF CONTROLLER, CHIEF CONTROLLER-C Primary Care Provider Active Dr. Alejandro Leon , DO Attending Provider, Referring Pro vider Active [employer] Relationship Specialty Start Date End Date , PLANT GENERAL MANAGER.DIGITAL SALES MANAGER [address] [place] [address] PCP - General Family Medicine 08/28/18 Team Status: Active Member Role Status Dates Vani Owen CHIEF CONTROLLER, CHIEF CONTROLLER-C Referring Provider, Other Provi silver Active Keren Kwon CHIEF CONTROLLER, CHIEF CONTROLLER-C Primary Care Provider Active Dr. Casey Brewer MD Attending Provider Active Team Status: Inactive Member Role Status Dates Vani Owen CHIEF CONTROLLER, CHIEF CONTROLLER-C Attending Provider, Referring P rovider Active Keren Kwon CHIEF CONTROLLER, CHIEF CONTROLLER-C Primary Care Provider Active Team Status: Inactive Member Role Status Dates Keren Kwon CHIEF CONTROLLER, CHIEF CONTROLLER-C Primary Care Provider, Referri ng Provider Active Dr. Casey Brewer MD Attending Provider Active Team Status: Active Member Role Status Dates Keren Kwon CHIEF CONTROLLER, CHIEF CONTROLLER-C Primary Care Provider Active Dr. Alejandro Leon , Referring Provider, Other Provide r Active Dr. Will Virk MD Attending Provider Active [employer] Relationship Specialty Start Date End Date OctN.DIGITAL SALES MANAGER [address] [place] [address] PCP - General Family Medicine 08/28/18 [employer]er Relationship Specialty Start Date End Date , PLANT GENERAL MANAGER.DIGITAL SALES MANAGER [address] [place] [address] PCP - General Family Medicine 08/28/18 Team Status: Active Member Role Status Dates Keren Kwon CHIEF CONTROLLER, CHIEF CONTROLLER-C Primary Care Provider Active Dr. Maggy Tucker DO Emergency Provider Active Dr. Lorena Bennett DO Admit Provider, Attending Provide r Active Team Status: Active Member Role Status Dates Keren Kwon CHIEF CONTROLLER, CHIEF CONTROLLER-C Primary Care Provider Active Dr. Maggy Tucker , DO Emergency Provider Active Dr. Lorena Bennett , DO Admit Provider, Att ending Provider, Other Provider Active Team Status: Active Member Role Status Dates Keren Kwon CHIEF CONTROLLER, CHIEF CONTROLLER-C Primary Care Provider Active Dr. Maggy Tucker , Emergency Provider Active Dr. Lorena Bennett , DO Admit Provider, Other Provider Ac tive Dr. Shakeel Valera MD Attending Provider, Other Provider Active Team Status: Inactive Member Role Status Dates Keren Kwon CHIEF CONTROLLER, CHIEF CONTROLLER-C Primary Care Provider Active Dr. Maggy Tucker , Emergency Provider Active Dr. Lorena Bennett , DO Admit Provider, Other Provider Ac tive Dr. Shakeel Valera MD Attending Provider Active Team Status: Active Member Role Status Dates Keren Kwon CHIEF CONTROLLER, CHIEF CONTROLLER-C Family Provider Active No Primary Care Physician Primary Care Provider Active Team Status: Inactive Member Role Status Dates No Primary Care Physician Primary Care Provider Active Dr. Casey Brewer MD Attending Provider, Referring Pr ovider Active [employer] Relationship Specialty Start Date End Date , PLANT GENERAL MANAGER.DIGITAL SALES MANAGER [address] [place] [address] PCP - General Family Medicine 08/28/18 Universal Banker Relationship Specialty Start Date End Date , PLANT GENERAL MANAGER.DIGITAL SALES MANAGER [address] [place] [address] PCP - General Family Medicine 08/28/18 Universal Banker Relationship Specialty Start Date End Date , PLANT GENERAL MANAGER.DIGITAL SALES MANAGER [address] [place] [address] PCP - General Family Medicine 08/28/18 Universal Banker Relationship Specialty Start Date End Date , PLANT GENERAL MANAGER.DIGITAL SALES MANAGER [address] [place] [address] PCP - General Family Medicine 08/28/18 Universal Banker Relationship Specialty Start Date End Date , PLANT GENERAL MANAGER.DIGITAL SALES MANAGER [address] [facility] [place] [address] PCP - General Family Medicine 08/28/18 Universal Banker Relationship Specialty Start Date End Date Keren Kwon APRN.DIGITAL SALES MANAGER [address] [facility] [place] [address] PCP - General Family Medicine 08/28/18 Kathe Pierre, PLANT GENERAL MANAGER.DIGITAL SALES MANAGER [address] [place] [address] Floor Technician Family Medicine 06/28/24 Mikhail Mancia MD [address] [place] [address] Floor Technician Family Medicine 06/28/24 Universal Banker Relationship Specialty Start Date End Date Keren Kwon, PLANT GENERAL MANAGER.DIGITAL SALES MANAGER [address] [place] [address] PCP - General Family Medicine 08/28/18 Kathe Pierre PLANT GENERAL MANAGER.DIGITAL SALES MANAGER [address] [place] [address] Floor Technician Family Medicine 06/28/24 Mikhail Mancia MD [address] [place] [address] Floor Technician Family Medicine 06/28/24 Universal Banker Relationship Specialty Start Date End Date Keren Kwon APRN.DIGITAL SALES MANAGER [address] [facility] [place] [address] PCP - General Family Medicine 08/28/18 Kathe Pierre PLANT GENERAL MANAGER.DIGITAL SALES MANAGER [address] [place] [address] Floor Technician Family Medicine 06/28/24 Mikhail Mancia MD [address] [place] [address] Floor Technician Family Medicine 06/28/24 Universal Banker Relationship Specialty Start Date End Date Keren Kwon APRN.DIGITAL SALES MANAGER [address] [place] [place] [address] PCP - General Family Medicine 08/28/18 Kathe Pierre APRN.DIGITAL SALES MANAGER [address] [facility] [place] [address] Floor Technician Family Medicine 06/28/24 Mikhail Mancia MD [address] [place] [address] Floor Technician Family Medicine 06/28/24 Universal Banker Relationship Specialty Start Date End Date Keren Kwon APRN.DIGITAL SALES MANAGER [address] [facility] [place] [address] PCP - General Family Medicine 08/28/18 Kathe Pierre PLANT GENERAL MANAGER.DIGITAL SALES MANAGER [address] [facility] [place] [address] Floor Technician Family Medicine 06/28/24 Mikhail Mancia MD [address] [place] [address] Floor Technician Family Medicine 06/28/24 Universal Banker Relationship Specialty Start Date End Date Keren Kwon PLANT GENERAL MANAGER.DIGITAL SALES MANAGER [address] [place] [address] PCP - General Family Medicine 08/28/18 Kathe Pierre, PLANT GENERAL MANAGER.DIGITAL SALES MANAGER [address] [place] [address] Floor Technician Family Medicine 06/28/24 Mikhail Mancia MD [address] [place] [address] Floor Technician Family Medicine 06/28/24 Universal Banker Relationship Specialty Start Date End Date Keren Kwon, PLANT GENERAL MANAGER.DIGITAL SALES MANAGER [address] [facility] [place] [address] PCP - General Family Medicine 08/28/18 Kathe Pierre, PLANT GENERAL MANAGER.DIGITAL SALES MANAGER [address] [place] [address] Floor Technician Family Medicine 06/28/[address]ail M[address] MD [address] [facility] [place] [address] [facility] 06/28/24 Universal Banker Relationship Specialty Start Date End Date Keren Kwon, PLANT GENERAL MANAGER.DIGITAL SALES MANAGER [address] [place] [place] [address] PCP - General Family Medicine 08/28/18 Kathe Pierre, PLANT GENERAL MANAGER.DIGITAL SALES MANAGER [address] [place] [address] Floor Technician Family Medicine 06/28/24 Mikhail Mancia MD [address] [place] [address] Floor Technician Family Medicine 06/28/24 Universal Banker Relationship Specialty Start Date End Date Haagen, Keren, PLANT GENERAL MANAGER.DIGITAL SALES MANAGER [address] [place] [address] PCP - General Family Medicine 08/28/18 Kathe Pierre PLANT GENERAL MANAGER.DIGITAL SALES MANAGER [address] [place] [address] Floor Technician Family Medicine 06/28/24 Mikhail Mancia MD [address] [place] [address] [facility] 06/28/24 Universal Banker Relationship Specialty Start Date End Date Keren Kwon, PLANT GENERAL MANAGER.DIGITAL SALES MANAGER [address] [facility] [place] [address] PCP - General Family Medicine 08/28/18 Kathe Pierre, PLANT GENERAL MANAGER.DIGITAL SALES MANAGER [address] [place] [address] Floor Technician Family Medicine 06/28/24 Mikhail Mancia MD [address] [place] [address] Floor Technician Family Medicine 06/28/24 Universal Banker Relationship Specialty Start Date End Date Keren Kwon, PLANT GENERAL MANAGER.DIGITAL SALES MANAGER [address] [place] [address] PCP - General Family Medicine 08/28/18 Kathe Pierre PLANT GENERAL MANAGER.DIGITAL SALES MANAGER [address] [place] [address] Floor Technician Family Medicine 06/28/24 Mikhail Mancia MD [address] [facility] [place] [address] Floor Technician Family Medicine 06/28/24 Universal Banker Relationship Specialty Start Date End Date Keren Kwon APRN.DIGITAL SALES MANAGER [address] [place] [address] PCP - General Family Medicine 08/28/18 Kathe Pierre APRN.DIGITAL SALES MANAGER [address] [facility] [place] [address] Floor Technician Family Medicine 06/28/24 Mikhail Mancia MD [address] [place] [address] Floor Technician Family Medicine 06/28/24 Universal Banker Relationship Specialty Start Date End Date Keren Kwon APRN.DIGITAL SALES MANAGER [address] [place] [address] PCP - General Family Medicine 08/28/18 Kathe Pierre APRN.DIGITAL SALES MANAGER [address] [place] [address] Floor Technician Family Medicine 06/28/24 Mikhail Mancia MD [address] [facility] [place] [address] Floor Technician Family Medicine 06/28/24 Universal Banker Relationship Specialty Start Date End Date Keren Kwon APRN.DIGITAL SALES MANAGER [address] [place] [address] PCP - General Family Medicine 08/28/18 Kathe Pierre APRN.DIGITAL SALES MANAGER [address] [place] [address] Floor Technician Family Medicine 06/28/24 Mikhail Mancia MD [address] [place] [address] Floor Technician Family Medicine 06/28/24 Universal Banker Relationship Specialty Start Date End Date Keren Kwon APRN.DIGITAL SALES MANAGER [address] [facility] [place] [address] PCP - General Family Medicine 08/28/18 Kathe Pierre PLANT GENERAL MANAGER.DIGITAL SALES MANAGER [address] [facility] [place] [address] Floor Technician Family Medicine 06/28/24 Mikhail Mancia MD [address] [facility] [place] [address] Floor Technician Family Medicine 06/28/24 Universal Banker Relationship Specialty Start Date End Date Keren Kwon, PLANT GENERAL MANAGER.DIGITAL SALES MANAGER [address] [place] [place] [address] PCP - General Family Medicine 08/28/18 Kathe Pierre PLANT GENERAL MANAGER.DIGITAL SALES MANAGER [address] [facility] [place] [address] Floor Technician Family Medicine 06/28/24 Mikhail Mancia MD [address] [place] [address] Floor Technician Family Medicine 06/28/24 Universal Banker Relationship Specialty Start Date End Date Keren Kwon, PLANT GENERAL MANAGER.DIGITAL SALES MANAGER [address] [facility] [place] [address] PCP - General Family Medicine 08/28/18 Kathe Pierre PLANT GENERAL MANAGER.DIGITAL SALES MANAGER [address] [place] [address] Floor Technician Family Medicine 06/28/24 Mikhail Mancia MD [address] [place] [address] Floor Technician Family Medicine 06/28/24 Universal [employer] Relationship Specialty Start Date End Date Keren Kwon APRN.DIGITAL SALES MANAGER [address] [place] [address] PCP - General Family Medicine 08/28/18 Kathe Pierre PLANT GENERAL MANAGER.DIGITAL SALES MANAGER [address] [facility] [place] [address] Floor Technician Family Medicine 06/28/24 Mikhail Mancia MD [address] [facility] [place] [address] [facility] 06/28/24 Universal Banker Relationship Specialty Start Date End Date Keren Kwon APRN.DIGITAL SALES MANAGER [address] [place] [address] PCP - General Family Medicine 08/28/18 Kathe Pierre PLANT GENERAL MANAGER.DIGITAL SALES MANAGER [address] [facility] [place] [address] Floor Technician Family Medicine 06/28/24 Mikhail Mancia MD [address] [facility] [place] [address] Floor Technician Family Medicine 06/28/24 Universal Banker Relationship Specialty Start Date End Date Keren Kwon APRN.DIGITAL SALES MANAGER [address] [place] [address] PCP - General Family Medicine 08/28/18 Kathe Pierre, PLANT GENERAL MANAGER.DIGITAL SALES MANAGER [address] [place] [address] Floor Technician Family Medicine 06/28/24 Mikhail Mancia MD [address] [facility] [place] [address] Floor Technician Family Medicine 06/28/24 Universal Banker Relationship Specialty Start Date End Date Keren Kwon, PLANT GENERAL MANAGER.DIGITAL SALES MANAGER [address] [place] [address] PCP - General Family Medicine 08/28/18 Universal Banker Relationship Specialty Start Date End Date Keren Kwon, PLANT GENERAL MANAGER.DIGITAL SALES MANAGER [address] [place] [address] PCP - General Family Medicine 08/28/18 Kathe Pierre, PLANT GENERAL MANAGER.DIGITAL SALES MANAGER [address] [place] [place] [address] Floor Technician Family Medicine 06/28/24 10/12/24 Mikhail Mancia MD [address] [place] [address] Floor Technician Family Medicine 06/28/24 10/12/24 Universal Banker Relationship Specialty Start Date End Date Keren Kwon APRN.DIGITAL SALES MANAGER [address] [place] [address] PCP - General Family Medicine 08/28/18 Universal Banker Relationship Specialty Start Date End Date Keren Kwon, PLANT GENERAL MANAGER.DIGITAL SALES MANAGER [address] [place] [address] PCP - General Family Medicine 08/28/18 Universal Banker Relationship Specialty Start Date End Date Keren Kwon, PLANT GENERAL MANAGER.DIGITAL SALES MANAGER [address] [place] [address] PCP - General Family Medicine 08/28/18 Goals (unrecognized section and content) Goals may be documented in a n alternate sectionGoals may be documented in an alternate sectionGoals may be documented in an alternate sectionGoals may be documented in an alternate sectionGoals may be documented in an alternate sectionGoals may be documented in an alternate sectionGoals may be documented in an alternate section FOR RECORDS PERTAINING TO PATIENTS WHO ARE OR HAVE BEEN ENROLLED IN A CHEMICAL DEPENDENCY/SUBSTANCEABUSE PROGRAM, SOME INFORMATION MAY BE OMITTED. This clinical summary was aggregated from multiple sources. Caution should be exercised in using it in the provision of clinical care. This summary normalizes information from multiple sources, and as a consequence, information in this document may materially change the coding, format and clinical context of patient data. In addition, data may be omitted in some cases. CLINICAL DECISIONS SHOULD BE BASED ON THE PRIMARY CLINICAL RECORDS. [employer] [facility]. provides no warranty or guarantee of the accuracy or completeness of information in this document.
--- NOTE | 2025-03-03 21:09 | PCM.HP.STD ---
[facility] - [facility] General Date of Admission: 03/03/25 Date of Service: 03/03/25 Chief Complaint: Chest Pain, Headache, Dizziness and Exhaustion. HPI Narrative BETHANY MONTALVO, is a 59 M with a past medical history of essential hypertension; on lisinopril and carvedilol BID, hyperlipidemia; on atorvastatin, obesity (class I); with BMI of 31.1 this admission, AARON, CAD; s/p NSTEMI with subsequent LCX stent (2017) on BASA daily plus prn SL NTG, history of CHF, history of TIA; with known carotid artery disease, former tobacco abuse; with subsequent asthma/COPD, history of EtOH abuse; patient admits to only one drink today because he was nervous but denies chronic EtOH abuse on folate and cyanocobalamin supplements, history of liver steatosis, history of thrombocytopenia, history of medical noncompliance, history of gallbladder polyp, CKD; stage IIIa, depression; with history of suicidal ideation on buspirone TID and trazodone q. HS, muscle spasms; on prn tizanidine, GERD; on omeprazole and OA who presents to [facility] ER complaining of chest pain, headache, dizziness and exhaustion. Mr. Montalvo reports his symptoms began approximately 1 day prior to admission after he worked his first full day of heavy labor in the heat. He states he was drinking warm water and felt worse throughout the day with subsequent headache, dizziness and spinning sensation complicated by intermittent chest pain and nonbloody diarrhea. He denies recent antibiotics or similar prior episodes. He admits to recent decrease in urinary output but he denies dysuria, hematuria or urinary frequency. He also denies associated fever, chills, runny nose, sore throat, ear pain, chest pain, palpitations, heart racing, lower extremity edema, shortness of breath, cough, abdominal pain, nausea, vomiting, arthralgias, myalgias, paresthesias, focal neurologic deficits or rash. In the ER he was noted to have laboratory evidence of severe LUZ MARIA; with elevated serum creatinine of 5.32 mg/dL with BUN of 42 mg/dL and eGFR of 12 mL/min (up from his baseline of 1.49 mg/dL with a BUN of 12 mg/dL and eGFR of 52 mL/min on last evaluation) complicated by elevated total creatinine kinase of 825 units/L due to Myotoxicity after recent strenuous exertion in the heat of the day with Leukocytosis of 15.2 K present on admission with Nonbloody Diarrhea and mild Hyponatremia of 130 mmol/L (down from 137 mmol/L on last evaluation) with a head CT done in the ER that revealed no acute intracranial abnormality. He was then admitted to the PCU for ongoing care for a stay that is expected to extend beyond 2 midnights. [facility] Medical History Personal history of colon polyps, unspecified Family history of malignant neoplasm of colon in father Anxiety Kidney disease GERD (gastroesophageal reflux disease) GI bleed Sleep apnea Former smoker Asthma Irregular heart beat Myocardial infarct TIA (transient ischemic attack) Abdominal pain Alcohol withdrawal Acute dehydration Nausea & vomiting Dehydration Alcoholic hepatitis Thrombocytopenia LUZ MARIA (acute kidney injury) Alcohol withdrawal Carotid artery disease Chronic kidney disease History of non-ST elevation myocardial infarction (NSTEMI) Coronary artery disease COPD (chronic obstructive pulmonary disease) Lung nodule Tobacco use WILSON (dyspnea on exertion) Fatigue Chest pain Heart failure COPD exacerbation Hypoxia Community acquired pneumonia Alcohol intoxication Suicidal ideation Atherosclerosis of coronary artery of [place] heart without angina pectoris Depression NSTEMI (non-ST elevated myocardial infarction) Obesity (BMI 30.0-34.9) Hyperlipidemia Hypertension Alcohol abuse Chest pain Home Medications ?Medication ?Instructions ?Recorded ?Last Taken ?Type omeprazole 20 mg capsule,delayed 20 mg PO DAILY heart burn 06/17/14 01/12/19 10:30 History release 20 MG nitroglycerin 0.4 mg sublingual 0.4 mg sublingual Q5M PRN Chest 12/24/22 Unknown Rx tablet Pain #25 tabs cyclobenzaprine 10 mg tablet 10 mg PO DAILY PRN Pain 10/14/23 Unknown History folic acid 1 mg tablet 1 mg PO DAILY 10/14/23 Unknown History magnesium oxide 400 mg (241.3 mg 400 mg PO DAILY 10/14/23 Unknown History magnesium) tablet thiamine HCl (vitamin B1) 100 mg 100 mg PO DAILY 10/14/23 Unknown History tablet buspirone 7.5 mg tablet 7.5 mg PO TID 09/29/24 Unknown History carvedilol 25 mg tablet 25 mg PO BID 09/29/24 Unknown History lisinopril 10 mg tablet 10 mg PO QDAY 09/29/24 Unknown History trazodone 50 mg tablet 100 mg PO QHS 09/29/24 Unknown History aspirin 81 mg tablet,delayed 81 mg PO DAILY heart #90 tabs 10/27/24 Unknown Rx release atorvastatin 40 mg tablet 40 mg PO QHS #90 tabs 10/27/24 Unknown Rx cyanocobalamin (vitamin B-12) 100 100 mcg PO DAILY 01/28/25 Unknown History mcg tablet (Vitamin B-12) multivitamin (Daily Multi-Vitamin 1 tab PO DAILY 01/28/25 Unknown History tablet) Allergy/AdvReac Type Severity Reaction Status Date / Time pseudoephedrine AdvReac Mild prostate Verified 03/03/25 19:15 infections Family History Mother CAD (coronary artery disease) Father CAD (coronary artery disease) Colon cancer, Onset Age: 53 At 53yrs Brother CAD (coronary artery disease) Myocardial infarction Sister CAD (coronary artery disease) Surgical History Hx of colonoscopy History of coronary artery stent placement Stented coronary artery History of tonsillectomy Hx of eye surgery Social History household members: significant other housing: apartment current occupational status: employed current occupation: [employer] Smoking Status: Former smoker alcohol intake: current alcohol intake frequency: 3 or more drinks per day substance use type: former substance user caffeine: Yes Type: coffee Number of servings: 2 what type of physical activity do you participate in: none ROS ROS Narrative Review of Systems: Constitutional: Patient denies fever or chills. Eyes: Patient denies changes in vision or discharge from eyes. ENT: Patient denies runny nose, sore throat or ear pain. Resp: Patient denies shortness of breath or cough. CV: Patient denies chest pain, palpitations, heart racing or lower extremity edema. GI: Patient admits to nonbloody diarrhea but he denies abdominal pain, nausea vomiting or constipation as per HPI. : Patient admits to decreased urinary output but he denies dysuria or hematuria as per HPI. MSK: Patient denies arthralgias or myalgias. Skin: Patient denies rash, abscess, wounds or jaundice. Psych: Patient denies symptoms of uncontrolled depression or anxiety. Neuro: Patient admits to headache but he denies paresthesias or focal neurologic deficits. Allergy: Patient denies lip swelling, tongue swelling or urticaria. Hematology: Patient denies easy bleeding or easy bruisability. Endocrinology: Patient denies polyuria, polydipsia, polyphagia or cold intolerance. 14 point ROS otherwise negative except for positives noted above in HPI. Vital Signs Vital Signs Vital Signs: 03/03/25 19:12 03/03/25 19:12 03/03/25 19:12 Temperature 98.0 F Temperature Source Temporal Pulse Rate 111 H Respiratory Rate 16 Respiratory Effort Normal Non-Labored Blood Pressure 119/66 83/60 L Blood Pressure Mean 83 67 Pulse Ox 99 Oxygen Delivery Method Room Air 03/03/25 19:26 03/03/25 20:12 03/03/25 20:48 Temperature Temperature Source Pulse Rate 100 101 H Respiratory Rate 18 25 H Respiratory Effort Blood Pressure 98/65 87/55 L 110/71 Blood Pressure Mean 76 65 84 Pulse Ox 98 97 Oxygen Delivery Method Room Air Room Air Weight Weight: 216 lb 8 oz Body Mass Index (BMI) 31.0 Physical Exam Const alert, oriented x3 and no apparent distress Constitutional Narrative: Obese and nontoxic in appearance. General Appearance: cooperative HEENT normocephalic, head/scalp atraumatic and hearing grossly normal bilaterally HEENT Narrative: Mucous membranes dry. Eyes PERRL, EOMs intact bilaterally and conjunctivae normal Neck no lymphadenopathy, supple and no JVD Resp normal respiratory effort, no retractions, no use of accessory muscles and clear to auscultation bilaterally Cardio regular rate and regular rhythm Cardio Narrative: Mild tachycardia noted at ~101 bpm. GI normal to inspection, nondistended, normoactive bowel sounds, soft to palpation, non-tender and non-distended GI Narrative: Obese. Extremity normal to inspection, full ROM and no clubbing, cyanosis or edema Skin Skin Narrative: Patient is evidence of rash, abscess, wounds or jaundice. Neuro oriented x3, CN's II-XII intact bilaterally, moves all extremities and no focal motor deficits Sensorium / Orientation: awake, alert, oriented to person, oriented to place and oriented to time Speech: speech normal Psych affect normal Results Medical Records Data Attestation: I reviewed the patient's medical records Lab / Micro Data Attestation: I reviewed the patient's lab results. 03/03/25 19:25 03/03/25 19:25 Labs: Laboratory Results - last 24 hr 03/03/25 19:25: WBC 15.2 H, RBC 4.52 L, Hgb 14.5, Hct 39.9 L, MCV 88.3, MCH 32.1 H, MCHC 36.3 H, RDW Std Deviation 39.5, RDW Coeff of Rosalee 12.2, Plt Count 156, MPV 10.3, Immature Gran % (Auto) 0.300, Neut % (Auto) 67.7, Lymph % (Auto) 22.6, [place] % (Auto) 8.0, Eos % (Auto) 1.2, Baso % (Auto) 0.2, Absolute Neuts (auto) 10.3 H, Absolute Lymphs (auto) 3.44, Nucleated RBC % 0, Sodium 130 L, Potassium 3.7, Chloride 91 L, Carbon Dioxide 16.4 L, Anion Gap 23 H, BUN 42 H, Creatinine 5.32 H, Estim Creat Clear Calc 17.79 L, Est GFR (MDRD) Non-Af 12 L, BUN/Creatinine Ratio 8.0 L, Glucose 80, Calcium 9.1, Total Creatine Kinase 825 H, Troponin T High Sens 13 Imaging Radiology Impression Brain CT 03/03/25 20:24 IMPRESSION: No acute intracranial abnormality. Reading Location: [facility] Assessment & Plan Assessment/Plan (1) LUZ MARIA (acute kidney injury): (2) Rhabdomyolysis: QUALIFIERS: Rhabdomyolysis type: non-traumatic Qualified Code(s): M62.82 - Rhabdomyolysis (3) Leukocytosis: QUALIFIERS: Leukocytosis type: unspecified Qualified Code(s): D72.829 - Elevated white blood cell count, unspecified (4) Diarrhea: QUALIFIERS: Diarrhea type: presumed infectious Qualified Code(s): R19.7 - Diarrhea, unspecified (5) Adverse drug reaction: QUALIFIERS: Encounter type: initial encounter Qualified Code(s): T50.905A - Adverse effect of unspecified drugs, medicaments and biological substances, initial encounter (6) Hyponatremia: (7) History of non-ST elevation myocardial infarction (NSTEMI): (8) Obesity (BMI 30.0-34.9): (9) Hepatic steatosis: (10) AARON (obstructive sleep apnea): PLAN: Plan 1. Severe LUZ MARIA; in the setting of CKD; stage IIIa with elevated serum creatinine of 5.32 mg/dL with BUN of 42 mg/dL and eGFR of 12 mL/min (up from his baseline of 1.49 mg/dL with a BUN of 12 mg/dL and eGFR of 52 mL/min on last evaluation) - Admit to PCU. Continuous vigorous volume resuscitation begun in ER recheck renal indices daily to follow trend for hopeful improvement. We will avoid potentially nephrotoxic agents. Give ondansetron IV as needed for nausea vomiting. Give acetaminophen as needed for pain or fever. 2. Elevated total creatinine kinase of 825 units/L due to Myotoxicity after recent strenuous exertion in the heat of the day with Chest Pain, Headache, Dizziness and Exhaustion likely primarily causing #1 - Serialize total CK to follow trend. PT/OT and Case Management consult treat on rounds in a.m. for further recommendations with appreciated advance. 3. Leukocytosis of 15.2 K present on admission with Nonbloody Diarrhea exacerbating volume depletion complicating #1 & #2 - Check stool studies and place on enteric precautions. 4. Adverse Drug Reaction to lisinopril also contributing to #1 - Hold lisinopril. Give hydralazine IV prn for systolic blood pressure > 160 mmHg. 5. Hyponatremia of 130 mmol/L (down from 137 mmol/L on last evaluation) - Give NS IVF and then recheck CMP in AM to ensure improvement. 6. CAD; s/p NSTEMI with subsequent LCX stent (2018) on BASA daily plus prn SL NTG adding to the medical complexity of #1 - #5 - Hold BASA in light of #1. Continue prn SL NTG. 7. Obesity (class I); with BMI of 31.1 this admission plus AARON and Hepatic Steatosis - Weight loss will be recommended. Check TSH. Resume nocturnal CPAP. This complicates his case and may hamper recovery. 8. History of EtOH abuse; patient admits to only one drink today because he was nervous but denies chronic EtOH abuse on folate and cyanocobalamin supplements - Noted. Maintain supplementation. 9. Essential hypertension; on lisinopril and carvedilol BID - Hold lisinopril in light of LUZ MARIA outlined on #1. Resume carvedilol as previous. 10. Hyperlipidemia; on atorvastatin - Hold statin with possible superimposed myotoxicity. 11. History of CHF - Stable with no signs of volume overload at this time. 12. History of TIA; with known carotid artery disease - Stable. 13. Former tobacco abuse; with subsequent asthma/COPD - Stable with no evidence of acute flare at this time. Continue scheduled and as needed nebulizers/inhalers. 14. History of thrombocytopenia - Stable with platelet count 100 56K present on admission. 15. History of medical noncompliance - Noted. 16. History of gallbladder polyp - noted. 17. Depression; with history of suicidal ideation on buspirone TID and trazodone q. HS - Maintain home regimen. 18. Muscle spasms; on prn tizanidine - Resume prn tizanidine for muscle spasms. 19. GERD; on omeprazole - Continue PPI. 20. OA - Give acetaminophen prn as outlined in #1. 21. DVT prophylaxis - Heparin 5,000U sq BID plus SCD's. Total time: Approximately (but not less than) 75 minutes. Charges/Coding Visit Charges Inpatient E&M: 35142 Init Hosp L3
--- NOTE | 2025-03-03 21:30 | RAD_ITS ---
PROCEDURE: CHEST 1 VIEW (PORTABLE) 03/03/2025 REASON FOR EXAM: CHEST PAIN TECHNIQUE: Frontal view of the chest. COMPARISON: 01/02/2023 FINDINGS: Lordotic position. Normal heart size. Prominent fat pad. Well inflated lungs. No consolidation, effusion, or pneumothorax. RAD/Chest 1 View (Portable) IMPRESSION: No acute chest findings. Reading Location: [place] [address]
--- NOTE | 2025-03-03 21:30 | CASEMGMT ---
Care Management Face to Face with patient for initial transition planning/care coordination assessment in the ED.? This medical writer introduced self and role at [facility]. Patient alert and oriented. Patient willing to participate in assessment and is able to answer all questions appropriately.? Care providers, pharmacy, and demographics verified. Admitting Diagnosis: Chest Pain Other diagnosis history: ?TIA, LUZ MARIA, CAD, COPD, Hypertension PCP: ?[facility] Specialists: ?[place], [employer] Preferred Pharmacy: [facility] Insurance: [employer] Prescription Benefit: ?yes Living Will/HPOA: ?none LNOK: ?Sisters, Marilia and Irma Living Arrangements: ?patient lives with friend in one story, one bedroom apartment. Patient sleeps on couch.?? Reports being independent with ADLs and IADLs. Transportation: ?patient drives DME: crutches , walker HHC: ?none SNF/Rehab: ?none Community Resources: ?none Behavioral Health History: anxiety, depression, H/O suicidal ideation Patient goals: Patient wishes to discharge home, denies need for home health care at this time. Patient denies any further needs or concerns at this time. Disposition Plan: admission to acute; RN CM/SW to follow for discharge planning needs that may arise. Carmita Sprague, CLINICAL TRIAL COORDINATOR, [employer]
[2025-03-03 21:41] LABS: Alcohol, Blood (Medical)-Serum 117.0 mg/dL (<=10.0)
--- OUTSIDE RECORDS SUMMARY | 2025-03-03 21:42 | XMS RPT_ITS | CCD ---
Author Organization [facility] CliniSyaz Care Team Providers Care Medical Record Consultant Name Role Phone EILEEN, CANDELARIO E Unavailable Unavailable EILEEN, CANDELARIO E Unavailable Unavailable EILEEN, CANDELARIO Unavailable Unavailable EILEEN, CANDELARIO Unavailable Unavailable Desmond Tejeda Unavailable Unavailable EILEEN, CANDELARIO Unavailable Unavailable EILEEN, CANDELARIO Unavailable Unavailable Desmond Tejeda Unavailable Unavailable Haagen DETAIL MANAGER.HOME AND FAMILY LIVING PROFESSOR, [facility] Primary Care Provider Haagen DETAIL MANAGER.HOME AND FAMILY LIVING PROFESSOR, [facility] Primary Care Provider Haagen DETAIL MANAGER.HOME AND FAMILY LIVING PROFESSOR, [facility] Primary Care Provider Haagen DETAIL MANAGER.HOME AND FAMILY LIVING PROFESSOR, [facility] Primary Care Provider Dr. Peam Yang Primary Care Provider Dr. Pema Yang Referring Provider Brayden SOUS CHEF, SOUS CHEF-C Vani Attending Provider Doyle SOUS CHEF, SOUS CHEF-C [facility] Primary Care Provider [phone] Doyle SOUS CHEF, SOUS CHEF-C Keren Referring Provider Dr. Alejandro Leon Attending Provider Brayden GARRISON, SOUS CHEF-C Vani Referring Provider Brayden GARRISON, SOUS CHEF-C Vani Other Provider Dr. Casey Brewer Attending Provider Dr. Alejandro Leon Referring Provider Dr. Alejandro Leon Other Provider Dr. Will Virk Attending Provider Doyle SOUS CHEF, SOUS CHEF-C [facility] Primary Care Provider Haagen SOUS CHEF, SOUS CHEF-C Keren Referring Provider Dr. Maggy Tucker Emergency Provider Dr. Lorena Bennett Admit Provider Dr. Lorena Bennett Attending Provider Dr. Lorena Bennett Other Provider Dr. Shakeel Valera Attending Provider Dr. Shakeel Valera Other Provider Haagen SOUS CHEF, SOUS CHEF-C Keren Primary Care Provider Haagen SOUS CHEF, SOUS CHEF-C Keren Referring Provider Dr. Casey Brewer Attending Provider Haagen DETAIL MANAGER.HOME AND FAMILY LIVING PROFESSOR, Keren Primary Care Provider Haagen DETAIL MANAGER.HOME AND FAMILY LIVING PROFESSOR, Keren Primary Care Provider Suppan DETAIL MANAGER.HOME AND FAMILY LIVING PROFESSOR, Kathe A Unavailable Mikhail Mancia MD Unavailable Suppan DETAIL MANAGER.HOME AND FAMILY LIVING PROFESSOR, Kathe A Unavailable [phone] Suppan DETAIL MANAGER.HOME AND FAMILY LIVING PROFESSOR, Kathe A Unavailable Suppan DETAIL MANAGER.CHRISTIANA, Kathe A Unavailable Mikhail Mancia MD Unavailable Sherine Mobley Attending Unavailable Haagen SOUS CHEF, Keren Primary Care Unavailable Haagen SOUS CHEF, Keren Primary Care Unavailable Shannan Nik Attending Unavailable Shannan, Nik Referring Unavailable Julius Lovell Attending Unavailable Haagen SOUS CHEF, Keren Primary Care Unavailable Haagen SOUS CHEF, Keren Referring Unavailable Friend, Julius Attending Unavailable Haagen SOUS CHEF, Keren Primary Care Unavailable Estrella Avelar Attending Unavailable Haagen SOUS CHEF, Keren Referring Unavailable Haagen SOUS CHEF, Keren Primary Care Unavailable HAAGEN, KEREN Primary [...] DUNCAN Referring Unavailable GARY HUTTON Attending [facility]available [facility] Primary Care Unavailable Allergies Allergy Classification Reported Allergen(s) Allergy Type Date of Onset Reaction(s) Facility (20 sources) pseudoephedrine; Translations: [PSEUDOEPHEDRINE ] Drug Allergy Other: See Comments [facility] Other [place] [facility] Medications Current Medications Medication Drug Class(es) [...] daily as needed. Take 1 tablet by rita th three times daily. carvedilol 25 mg [...] Comment on above: Take [address] [facility] once daily. magnesium oxide 400 mg [...] every 6 hours as needed for Pain. [id number] 200 actuat albuterol 0.09 mg/actuat metered dose [...] on above: Take 1 capsule by mo [facility] once daily. 10 ml lidocaine hydrochloride [...] Comment on above: [facility]. With food. metoprolol [...] October 14, 2023 1:26pm polyethylene glycol 3350 83981 mg powder for oral solution (8 sources) [...] above: 1/2 pill daily X 1 w afognak; then increase to a whole pill daily. [...] Coronary atherosclerosis; Translations: [Atherosclerotic heart disease of wainwright coronary artery without angina pectoris] Onset: 5 [...] Test Name Value Interpretation Reference Range Facility [facility] 02-09-2025 CNOV Office Visit (WOU[facility]) BETHANY MONTALVO ([id number]) 1965 M Date Time Provider Department 02/09/25 [...] No recent use of Pepto-Bismol. - Taking yjkr-xtx-eopgbfd cold and flu medication. - Vomiting early [...] rule out serious conditions. and Recording using Prime Grid software for draft documentation of the visit was discussed with the patient/authorized tax representative; all questions welcomed and answered. Patient/authorized tax representative agreed to proceed Disposition The patient was [...] mouth jenny (more content not included)... Normal [facility] CNOVon 12-11-2024 CN Office Visit ([facility] ) SELVINBETHANY ([id number]) 1965 M Date Time Provider Department 12/11/24 [...] Age of Onset Psychiatry Mother Heart Mother [place] 53 Heart Father [place] 51 Colon Cancer Father other (Heart stent) [...] 03/2014. Cipriano (more content not included)... Normal [facility] Additional Injectionson 03- Juarez Hernández V, DO [...] these instructions. Informed Consent Consent Obtained: Verbal Henderson Protocol SIGN IN TIME OUT [facility] CNOVon 10-07-2024 CNOV Office Visit (FRWS ) BETHANY MONTALVO ([id number]) 1965 M Date Time Provider Department 10/07/24 1:30 PM JUAREZ HERNÁNDEZ V [facility] During your visit today, [...] DATE: October 07, 2024 PCP: Keren Kwon APRN.HOME AND FAMILY LIVING PROFESSOR Subjective Patient ID: Bethany is a 58 [...] Age of Onset Psychiatry Mother Heart Mother [place] 53 Heart Father [place] 51 Colon Cancer Father other (Heart stent) [...] day. traZODone (more content not included)... Normal [facility] Free PSA [Mass/Vol]on 2024 Free PSA/Total PSA [Mass fraction] 14 % Normal [facility] Comment on above: Order Comment: Speci men Type: BLOOD SPECIMENOrdering Facility: [facility] Address: [address] [place] [address] Result Comment: Tota l and free PSA [...] 12.2% 15.8% Performed By: #### 1 0886-0 ####[facility] LABCLIA [id number] [place] [address] [place] Prostate specific Ag [Mass/Vol] 4.14 ng/mL High <2.[address] [facility] Comment on above: Order Comment: Speci men Type: BLOOD SPECIMENOrdering Facility: [facility] Address: [address] [place] [address] Result Comment: Guera delarosa PSA test methodology [...] Med 2003,349:335-42. Performed By: #### 1 0886-0 ####[facility] LABCLIA [id number] [place] [address] [place] Gastroenterology Visit Repor ton 09-29-2024 Gastroenterology Visit Report [facility] Gastroenterology [address] [place] [address] OFFICE VISIT Date of Service: 09/29/24 MR#: [id number] Acct: [id number] Name: BETHANY MONTALVO Rep #: [id number] : 1965 Provider: XUAN cochran Age/Sex: 58/M Location: [facility] Status: Signed Intake Vital Signs 07/23/24 12:07 09/29/24 14:11 Height 5 ft 10 in 5 ft 10 in Weight: 206 lb 8 oz BMI 29.6 BP 110/75 Respiration 16 Pulse 113 H Pulse Oximetry (%) 96 Oxygen Delivery Method room air Intake Visit Reasons: Gastroesophageal reflux disease (GERD) Chief Complaint: SOB and cough Gas Station Attendant Required: No Is patient in pain?: No [...] Note: Has occasional acid reflux. Some diarrhea. [facility] Medical History Personal history of colon polyps, [...] Suicidal ideation Atherosclerosis of coronary artery of wainwright heart without angina pectoris Depression NSTEMI (non-ST [...] apartment current occupational status: employed current occupation: [employer] Smoking Status: Former smoker alcohol intake: current [...] - qu (more content not included)... Normal [facility] CNOVon 09-28-2024 CNOV Office Visit (FAMPWS ) BETHANY MONTALVO ([id number]) 1965 M Date Time Provider Department 09/28/24 3:40 PM [facility] During your visit today, we recorded the following information about you: Pulse Respiration Blood pressure Weight 113/minute 16/minute 122/80 92.1 kg Keren Kwon APRN.HOME AND FAMILY LIVING PROFESSOR 09/29/2024 1:38 PM Signed This is a 58 year old male who presents today with: Patient presents with: Follow Up: 4 week BP HISTORY OF PRESENT ILLNESS: Bethany Montalvo is a 58 year old male. Patient presents with: Follow Up: 4 week BP Elevated alk phos. Fatty liver. Has appt with [place] [facility] tomorrow. Needs referral to GI faxed. [...] Age of Onset Psychiatry Mother Heart Mother [place] 53 Heart Father [place] 51 Colon Cancer Father other (Heart stent) [...] 29.13 kg/m? (more content not included)... [facility] ([id number]) 1965 M Date Time Provider Department 09/28/24 [...] is not normal. Having said that, the [facility] uses a lower cut-off of 2.59, [...] Chris Devlin DNP, CHRISTIANA Department of Urology [facility] Chris Devlin APRN.MARLY VILLEDA 09/28/2024 1:06 PM Signed [facility] PSA/PROSTATE EVALUATION HISTORY AND PHYSICAL EXAM PATIENT: Bethany Montalvo (58 year old) PCP: Keren Kwon APRN.CHRISTIANA REFERRING Provider: Keren Kwon APRN.C* === Consultation requested by Dr. Keren Kwon [address] [facility] [address] for an opinion regarding Elevated PSA and my final recommendations will be co (more content not included)... Normal [facility] UA DIP, URINE (POC)on 2024 BILIRUBIN UA (POCT) Negative Negative [facility] CLARITY UA (POCT) Slightly Cloudy [facility] COLOR UA (POCT) Dark yellow [facility] GLUCOSE UA (POCT) Negative Negative mg/dL [facility] Hemoglobin Ql (U) Negative Negative [facility] KETONE UA (POCT) Negative Negative mg/dL [facility] LEUKOCYTES UA (POCT) Negative [facility] NITRITE [facility]A (POCT) Negative Negative [facility] PH UA (POCT) 5.5 4.5 - 8.0 [facility] Protein Ql (U) Negative Negative mg/dL [facility] SPECIFIC GRAVITY UA (POCT) 1.025 1.005 - 1.030 [facility] UROBILINOGEN UA (POCT) 0.2 Normal E.U./dL [facility] Location:[facility], [address] , [place], [place], [id number] [place] [address] POINT OF CARE [facility] Valdo 09-25-2024 ISAIAS Telephone (UROLWS) BETHANY MONTALVO ([id number]) 1965 M Date Time Provider Department 09/25/24 CHRIS DEVLIN During your visit today, we recorded the following information about you: Lindsay Fonseca LPN 09/25/2024 1:03 PM Signed Called patient regarding appointment on Saturday due to provider having a meeting between [phone]. Patient offered times to come into clinic [...] Encounter Status:Closed by LINDSAY FONSECA on 09/25/24 [facility] CNOVon 08-31-2024 CNOV Office Visit (FAMPWS ) BETHANY MONTALVO ([id number]) 1965 M Date Time Provider Department 08/31/24 3:20 PM KEREN KWON During your visit today, we recorded the following information about you: Pulse Respiration Blood pressure 114/minute 16/minute 153/97 Keren Kwon APRN.HOME AND FAMILY LIVING PROFESSOR 08/31/2024 8:46 PM Signed This is a [...] with psychiatric at the counseling center at [place] Is interested and agreeable to following with a counselor again at [place]. Left knee pain has been a lot [...] Age of Onset Psychiatry Mother Heart Mother [place] 53 Heart Father [place] 51 Colon Cancer Father Social History Tobacco [...] wheezing, COPD, (more content not included)... Normal [facility] 08-28-2024 [facility] Telephone ([facility]) BETHANY MONTALVO ([id number]) 1965 Date Time Provider Department 08/28/24 KEREN KWON [facility] During your visit today, we recorded the following information about you: Keren Kwon APRN.HOME AND FAMILY LIVING PROFESSOR 08/28/2024 3:37 PM Signed Can please let [...] Primary Visit Diagnosis:Hepatosplenomegaly [R16.2] Order(s):CONSULT TO GASTROENTEROLOGY [9079] Order #: [id number]: 1 FUTURE Prescriptions as of 08/31/2024 - [...] Status:Closed by DONNA RICHEY on 08/31/[address] [facility] No Panel Informationon 08-27 IMPRESSION: 1. Fatty liver. Small hypoechoic area in the liver adjacent to the gallbladder probably represents an area of focal fatty sparing. 2. Hepatosplenomegaly Pastry Cook: JOHN Transcribe Date/Time: Aug 27 2024 4:28P Dictated by : CRISTIAN BENZ DO This examination was interpreted and the report reviewed and electronically signed by: CRISTIAN BENZ DO on Aug 27 2024 4:31PM [facility] DIVISION OF RADIOLOGY No Panel InformationOrdered By: Ccf Provider on 08-27-2024 [facility] US ABD RIGHT UPPER QUADRANTo n [...] area of focal fatty sparing. 2. Hepatosplenomegaly Pastry Cook: JOHN Transcribe Date/Time: Aug 27 2024 4:28P Dictated by : CRISTIAN BENZ DO This examination was interpreted and the report reviewed and electronically signed by: CRISTIAN BENZ DO on Aug 27 2024 4:31PM EST [id number] Normal [facility] US ABD SPLEEN - NBon 025 * * *Final Report* * * DATE OF EXAM: Aug 27 2024 2:16PM [facility] 1232 - US ABD SPLEEN -NB / [...] portal vein: Unremarkable DIVISION OF RADIOLOGY Provider, [facility] - 08/27/2024 * * *Final [...] area of focal fatty sparing. 2. Hepatosplenomegaly Pastry Cook: [facility] Transcribe Date/Time: Aug 27 2024 4:28P Dictated by : CRISTIAN BENZ DO This examination was interpreted and the report reviewed and electronically signed by: CRISTIAN BENZ DO on Aug 27 2024 4:31PM EST [facility] Radiology Study observation (narrative) [facility] US ABD SPLEEN -NBon 08-27-19 US [...] area of focal fatty sparing. 2. Hepatosplenomegaly Pastry Cook: [facility] Transcribe Date/Time: Aug 27 2024 4:28P Dictated by : CRISTIAN BENZ DO This examination was interpreted and the report reviewed and electronically signed by: CRISTIAN BENZ DO on Aug 27 2024 4:31PM EST [id number] Normal [facility] US Abdomen RUQon 08-27-2024 * * *Final [...] portal vein: Unremarkable DIVISION OF RADIOLOGY Provider, [facility] - 08/27/2024 * * *Final Report* * * DATE OF EXAM: Aug 27 2024 2:16PM [facility] 1032 - US ABD RIGHT UPPER QUADRANT [...] area of focal fatty sparing. 2. Hepatosplenomegaly Pastry Cook: [facility] Transcribe Date/Time: Aug 27 2024 4:28P Dictated by : CRISTIAN BENZ DO This examination was interpreted and the report reviewed and electronically signed by: CRISTIAN BENZ DO on Aug 27 2024 4:31PM EST [facility] Radiology Study observation (narrative) [facility] CNOVon 08-24-2024 CNOV Office Visit (FAMPWS ) BETHANY MONTALVO ([id number]) 1965 M Date Time Provider Department 08/24/24 11:20 AM KEREN KWON During your visit today, we recorded the following information about you: Pulse Respiration Blood pressure 132/minute 16/minute 179/117 Keren Kwon APRN.HOME AND FAMILY LIVING PROFESSOR 08/24/2024 12:45 PM Signed This is a [...] Age of Onset Psychiatry Mother Heart Mother [place] 53 Heart Father [place] 51 Colon Cancer Father Social History Tobacco [...] knee w (more content not included)... Normal [facility] Valdo 08-12-2024 [facility] Telephone (FAMPWS) BETHANY MONTALVO ([id number]) 1965 M Date Time Provider Department 08/12/24 [facility]EREN K[facility]ON [facility] During your visit today, we recorded the [...] with scheduling Urology appt. HARMONY Forrester Christy, APRN.CHRISTIAAN 08/14/2024 4:44 PM Signed Can please let [...] [R74.8] Order(s):CONSULT TO UROLOGY [9041] Order #: [id number]: 1 FUTURE US ABD RIGHT UPPER QUADRANT [6316023] Order #: [id number] FUTURE predniSONE (DELTASONE) 10 mg tabletTake 4 [...] food. Encounter (more content not included)... Normal [facility] ALKALINE PHOSPHATASE ISOENZY MES (P)on 08-11-2024 ALK PHOS BONE % 27.2 % Normal 10.7-68.[address] [facility] Comment on above: Order Comment: Speci men Type: BLOOD SPECIMENOrdering Facility: [facility] Address: [address] [place] [address] Performed By: #### A LKISOP ####[facility] LABCLIA [id number] [place] [address] [place] ALK PHOS LIVER % 72.8 % Normal 26.0-86.2 [facility] Comment on above: Order Comment: Speci men Type: BLOOD SPECIMENOrdering Facility: [facility] Address: [address] [place] [address] Performed By: #### A LKISOP ####[facility] LABCLIA [id number] [place] [address] [place] BONE FRACTION 39.2 U/L Normal 12.9-52.[address] [facility] Comment on above: Order Comment: Speci men Type: BLOOD SPECIMENOrdering Facility: [facility] Address: [address] [place] [address] Performed By: #### A LKISOP ####[facility] LABCLIA [id number] [place] [address] [place] INTESTINE FRACTION 0.0 U/L Normal 0.0-16.3 [facility] Comment on above: Order Comment: Speci men Type: BLOOD SPECIMENOrdering Facility: [facility] Address: [address] [place] [address] Performed By: #### A LKISOP ####[facility] LABCLIA [id number] [place] [address] [place] LIVER FRACTION 104.8 U/L High 16.0-69.[address] [facility] Comment on above: Order Comment: Speci men Type: BLOOD SPECIMENOrdering Facility: [facility] Address: [address] [place] [address] Performed By: #### A LKISOP ####[facility] LABCLIA [id number] [place] [address] [place] Neutrophils/100 WBC (Bld) 0.0 % Normal 0.0-24.[address] [facility] Comment on above: Order Comment: Speci men Type: BLOOD SPECIMENOrdering Facility: [facility] Address: [address] [place] [address] Performed By: #### A LKISOP ####[facility] LABIA [id number] [place] [address] [place] ALP SerPl-cCncon 08-11-2024 ALP [Catalytic activity/Vol] 144 U/L High 38-[address] [facility] Comment on above: Order Comment: Speci men Type: BLOOD SPECIMENOrdering Facility: [facility] Address: [address] [place] [address] Performed By: #### 6 768-6 ####[facility] LABCLIA [id number] [place] [address] [place] Basic metabolic 2000 panelon 08-11-2024 Anion gap [Moles/Vol] 18 mmol/L High 8-15 [facility] Comment on above: Order Comment: Speci men Type: BLOOD SPECIMENOrdering Facility: [facility] Address: [address] [place] [address] Performed By: #### 1 988-5, 3084-1, 41712-3, 37410-0 ####[facility] LABIA [id number] [place] [address] [place] Calcium [Mass/Vol] 9.0 mg/dL Normal 8.5-10.2 [facility] Comment on above: Order Comment: Speci men Type: BLOOD SPECIMENOrdering Facility: [facility] Address: [address] [place] [address] Performed By: #### 1 988-5, 3084-1, 82835-8, 64348-0 ####[facility] LABIA [id number] [place] [address] [place] Chloride [Moles/Vol] 97 mmol/L Low 98-107 [facility] Comment on above: Order Comment: Speci men Type: BLOOD SPECIMENOrdering Facility: [facility] Address: [address] [place], [place] [address] Performed By: #### 1 988-5, 3084-1, 77650-1, 98306-5 ####[facility] LABCLIA [id number] [place] [address] [place] CO2 [Moles/Vol] 21 mmol/L Low 22-[address] [facility] Comment on above: Order Comment: Speci men Type: BLOOD SPECIMENOrdering Facility: [facility] Address: [address] [place] [address] Performed By: #### 1 988-5, 3084-1, 79993-2, 53918-4 ####[facility] LABIA [id number] [address] [address] [place] Creatinine [Mass/Vol] 1.16 mg/dL Normal 0.73-1.22 [facility] Comment on above: Order Comment: Speci men Type: BLOOD SPECIMENOrdering Facility: [facility] Address: [address] [place] [address] Performed By: #### 1 988-5, 3084-1, 42020-0, 43114-1 ####[facility] [id number] [place] [address] [place] Creatinine and Glomerular filtration rate.predicted panel (S/P/Bld) 73 mL/min/1.73m??? Normal >=[address] [facility] Comment on above: Order Comment: Speci men Type: BLOOD SPECIMENOrdering Facility: [facility] Address: [address] [place] [address] Result Comment: Misty mated Glomerular Filtration Rate [...] GFR. Performed By: #### 1 988-5, 3084-1, 50732-2, 55689-0 ####[facility] LABIA [id number] [place] [address] [place] Glucose [Mass/Vol] 109 mg/dL High 74-99 [facility] Comment on above: Order Comment: Speci men Type: BLOOD SPECIMENOrdering Facility: [facility] Address: [address] [place] [address] Result Comment: The [place] Diabetes Association (ADA) provides guidance for cutoff [...] Standards of Medical Care in Diabetes 2016, [place] [employer]. Diabetes Care. 2016.39(Suppl 1). Performed By: #### 1 988-5, 3084-1, 60167-8, 20531-6 ####[facility] LABCLIA [id number] [place] [address] [place] Potassium [Moles/Vol] 4.6 mmol/L Normal 3.7-5.1 [facility] Comment on above: Order Comment: Speci men Type: BLOOD SPECIMENOrdering Facility: [facility] Address: [address] [place] [address] Performed By: #### 1 988-5, 3084-1, 61976-5, 70523-0 ####[facility] LABIA [id number] [place] [address] [place] Sodium [Moles/Vol] 136 mmol/L Normal 136-144 [facility] Comment on above: Order Comment: Speci men Type: BLOOD SPECIMENOrdering Facility: [facility] Address: [address] [place] [address] Performed By: #### 1 988-5, 3084-1, 47646-4, 70312-4 ####[facility] LABCLIA [id number] [place] [address] [place] Urea nitrogen [Mass/Vol] 9 mg/dL Normal 9-[address] [facility] Comment on above: Order Comment: Speci men Type: BLOOD SPECIMENOrdering Facility: [facility] Address: [address] [place] [address] Performed By: #### 1 988-5, 3084-1, 75082-8, 60282-0 ####[facility] LABCLIA [id number] [place] [address] [place] CBC W Auto Differential pane l (Bld)on 08-11-2024 Basophils (Bld) [#/Vol] 0.03 10*3/uL Normal <0.[address] [facility] Comment on above: Order Comment: Speci men Type: BLOOD SPECIMENOrdering Facility: [facility] Address: [address] [place] [address] Performed By: #### 4 537-7, 12572-2 ####[facility] LABCLIA [id number] [place] [address] [place] Basophils/100 WBC (Bld) 0.4 % Normal [facility] Comment on above: Order Comment: Speci men Type: BLOOD SPECIMENOrdering Facility: [facility] Address: [address] [place] [address] Performed By: #### 4 537-7, 11262-5 ####[facility] LABCLIA [id number] [place] [address] [place] Differential cell count method Nom (Bld) Auto Normal [facility] Comment on above: Order Comment: Speci men Type: BLOOD SPECIMENOrdering Facility: [facility] Address: [address] [place] [address] Performed By: #### 4 537-7, 95213-1 ####[facility] LABCLIA [id number] [place] [address] [place] Eosinophils (Bld) [#/Vol] 0.06 10*3/uL Normal <0.[address] [facility] Comment on above: Order Comment: Speci men Type: BLOOD SPECIMENOrdering Facility: [facility] Address: [address] [place] [address] Performed By: #### 4 537-7, 93179-2 ####[facility] LABCLIA [id number] [place] [address] [place] Eosinophils/100 WBC (Bld) 0.9 % Normal [facility] Comment on above: Order Comment: Speci men Type: BLOOD SPECIMENOrdering Facility: [facility] Address: [address] [place] [address] Performed By: #### 4 537-7, 98084-8 ####[facility] LABCLIA [id number] [place] [address] [place] Erythrocyte distribution width (RBC) [Ratio] 11.4 % Low 11.5-15.[address] [facility] Comment on above: Order Comment: Speci men Type: BLOOD SPECIMENOrdering Facility: [facility] Address: [address] [place] [address] Performed By: #### 4 537-7, 13790-2 ####[facility] LABCLIA [id number] [place] [address] [place] Hematocrit (Bld) [Volume fraction] 43.6 % Normal 39.0-51.[address] [facility] Comment on above: Order Comment: Speci men Type: BLOOD SPECIMENOrdering Facility: [facility] Address: [address] [place] [address] Performed By: #### 4 537-7, 07446-8 ####[facility] LABCLIA [id number] [place] [address] [place] Hemoglobin (Bld) [Mass/Vol] 15.6 g/dL Normal 13.0-17.[address] [facility] Comment on above: Order Comment: Speci men Type: BLOOD SPECIMENOrdering Facility: [facility] Address: [address] [place] [address] Performed By: #### 4 537-7, 91190-9 ####[facility] LABCLIA [id number] [place] [address] [place] Immature granulocytes (Bld) [#/Vol] 10*3/uL Normal <0.[address] [facility] Comment on above: Order Comment: Speci men Type: BLOOD SPECIMENOrdering Facility: [facility] Address: [address] [place] [address] Performed By: #### 4 537-7, 33584-8 ####[facility] LABCLIA [id number] [place] [address] [place] Immature granulocytes/100 WBC (Bld) 0.1 % Normal [facility] Comment on above: Order Comment: Speci men Type: BLOOD SPECIMENOrdering Facility: [facility] Address: [address] [place] [address] Performed By: #### 4 537-7, 55398-4 ####[facility] LABCLIA [id number] [place] [address] [place] Lymphocytes (Bld) [#/Vol] 1.12 10*3/uL Normal 1.00-4.[address] [facility] Comment on above: Order Comment: Speci men Type: BLOOD SPECIMENOrdering Facility: [facility] Address: [address] [place] [address] Performed By: #### 4 537-7, 31032-9 ####[facility] LABCLIA [id number] [place] [address] [place] Lymphocytes/100 WBC (Bld) 16.8 % Normal [facility] Comment on above: Order Comment: Speci men Type: BLOOD SPECIMENOrdering Facility: [facility] Address: [address] [place] [address] Performed By: #### 4 537-7, 01051-4 ####[facility] LABCLIA [id number] [place] [address] [place] MCH (RBC) [Entitic mass] 34.0 pg Normal 26.0-34.[address] [facility] Comment on above: Order Comment: Speci men Type: BLOOD SPECIMENOrdering Facility: [facility] Address: [address] [place] [address] Performed By: #### 4 537-7, 78057-1 ####[facility] LABCLIA [id number] [place] [address] [place] MCHC (RBC) [Mass/Vol] 35.8 g/dL Normal 30.5-36.0 [facility] Comment on above: Order Comment: Speci men Type: BLOOD SPECIMENOrdering Facility: [facility] Address: [address] [place] [address] Performed By: #### 4 537-7, 73399-8 ####[facility] LABCLIA [id number] [place] [address] [place] MCV (RBC) [Entitic vol] 95.0 fL Normal 80.0-100.[address] [facility] Comment on above: Order Comment: Speci men Type: BLOOD SPECIMENOrdering Facility: [facility] Address: [address] [place] [address] Performed By: #### 4 537-7, 98125-5 ####[facility] LABCLIA [id number] [place] [address] [place] Monocytes (Bld) [#/Vol] 0.44 10*3/uL Normal <0.[address] [facility] Comment on above: Order Comment: Speci men Type: BLOOD SPECIMENOrdering Facility: [facility] Address: [address] [place] [address] Performed By: #### 4 537-7, 30089-5 ####[facility] LABCLIA [id number] [place] [address] [place] Monocytes/100 WBC (Bld) 6.6 % Normal [facility] Comment on above: Order Comment: Speci men Type: BLOOD SPECIMENOrdering Facility: [facility] Address: [address] [place] [address] Performed By: #### 4 537-7, 10712-0 ####[facility] LABCLIA [id number] [place] [address] [place] Neutrophils (Bld) [#/Vol] 5.01 10*3/uL Normal 1.45-7.[address] [facility] Comment on above: Order Comment: Speci men Type: BLOOD SPECIMENOrdering Facility: [facility] Address: [address] [place] [address] Performed By: #### 4 537-7, 34647-0 ####[facility] LABCLIA [id number] [place] [address] [place] Neutrophils/100 WBC (Bld) 75.2 % Normal [facility] Comment on above: Order Comment: Speci men Type: BLOOD SPECIMENOrdering Facility: [facility] Address: [address] [place] [address] Performed By: #### 4 537-7, 51586-8 ####[facility] LABCLIA [id number] [place] [address] [place] Nucleated RBC (Bld) [#/Vol] 10*3/uL Normal <0.[address] [facility] Comment on above: Order Comment: Speci men Type: BLOOD SPECIMENOrdering Facility: [facility] Address: [address] [place] [address] Performed By: #### 4 537-7, 23810-9 ####[facility] LABCLIA [id number] [place] [address] [place] Nucleated RBC/100 WBC (Bld) [Ratio] 0.0 /100 WBC Normal [facility] Comment on above: Order Comment: Speci men Type: BLOOD SPECIMENOrdering Facility: [facility] Address: [address] [place] [address] Performed By: #### 4 537-7, 50437-2 ####[facility] LABCLIA [id number] [address] [address] [place] Platelet mean volume (Bld) [Entitic vol] 10.3 fL Normal 9.0-12.[address] [facility] Comment on above: Order Comment: Speci men Type: BLOOD SPECIMENOrdering Facility: [facility] Address: [address] [place] [address] Performed By: #### 4 537-7, 13008-6 ####[facility] LABIA [id number] [place] [address] [place] Platelets (Bld) [#/Vol] 136 10*3/uL Low 150-[address] [facility] Comment on above: Order Comment: Speci men Type: BLOOD SPECIMENOrdering Facility: [facility] Address: [address] [place] [address] Performed By: #### 4 537-7, 07737-3 ####[facility] LABIA [id number] [place] [address] [place] RBC (Bld) [#/Vol] 4.59 10*6/uL Normal 4.20-6.00 [facility] Comment on above: Order Comment: Speci men Type: BLOOD SPECIMENOrdering Facility: [facility] Address: [address] [place] [address] Performed By: #### 4 537-7, 25095-1 ####[facility] LABIA [id number] [place] [address] [place] WBC (Bld) [#/Vol] 6.67 10*3/uL Normal 3.70-11.00 [facility] Comment on above: Order Comment: Speci men Type: BLOOD SPECIMENOrdering Facility: [facility] Address: [address] [place] [address] Performed By: #### 4 537-7, 19178-8 ####[facility] LABIA [id number] [address] [address] [place] CNOVon 08-11-2024 CNOV Office Visit (FAMPWS ) BETHANY MONTALVO ([id number]) 1965 M Date Time Provider Department 08/11/24 1:00 PM KEREN KWON During your visit today, we recorded the following information about you: Temperature Pulse Respiration Blood pressure 99.9 degrees 120/minute 16/minute 162/86 Keren Kwon APRN.HOME AND FAMILY LIVING PROFESSOR 08/11/2024 2:07 PM Signed This is a 58 year old male who presents today with: Patient presents with: ER F/U: [facility] ER f/u 07/23/24 dx: L knee pain HISTORY OF PRESENT ILLNESS: Bethany Montalvo is a 58 year old male. Patient presents with: ER F/U: [facility] ER f/u 07/23/24 dx: L knee [...] Age of Onset Psychiatry Mother Heart Mother [place] 53 Heart Father [place] 51 Colon Cancer Father Social History Tobacco [...] color, te (more content not included)... Normal [facility] CRP SerPl-mCncon 08-11-2024 CRP [Mass/Vol] 0.5 mg/dL Normal <0.[address] [facility] Comment on above: Order Comment: Speci men Type: BLOOD SPECIMENOrdering Facility: [facility] Address: [address] [place] [address] Performed By: #### 1 988-5, 3084-1, 70155-7, 87021-1 ####[facility] LABCLIA [id number] [facility] [id number] [address] [place] ESR Westergren method (Bld) [Velocity]on 08-11-2024 ESR (Bld) [Velocity] 9 mm/h Normal 0-15 [facility] Comment on above: Order Comment: Speci men Type: BLOOD SPECIMENOrdering Facility: [facility] Address: [address] [place] [address] Performed By: #### 4 537-7, 56188-1 ####[facility] LABIA [id number] [place] [address] [place] Free PSA [Mass/Vol]on 2024 Free PSA/Total PSA [Mass fraction] 10 % Normal [facility] Comment on above: Order Comment: Speci men Type: BLOOD SPECIMENOrdering Facility: [facility] Address: [address] [place] [address] Result Comment: Tota l and free PSA [...] 15.8% Performed By: #### 1 988-5, 3084-1, 33796-8, 42216-0 ####[facility] LABCLIA [id number] [place] [address] [place] Prostate specific Ag [Mass/Vol] 4.05 ng/mL High <2.[address] [facility] Comment on above: Order Comment: Speci men Type: BLOOD SPECIMENOrdering Facility: [facility] Address: [address] [place] [address] Result Comment: Tota l PSA test methodology used is the Electrochemiluminescence Immunoassay by [employer]. Total PSA values by differing methodologies [...] 2003,349:335-42. Performed By: #### 1 988-5, 3084-1, 81862-2, 51337-8 ####[facility] LABIA [id number] [place] [address] [place] Osmolality Uron 08-11-2024 Osmolality (U) [Osmolality] 163 mosm/kg Normal 50-[address] [facility] Comment on above: Order Comment: Speci men Type: URINE SPECIMENOrdering Facility: [facility] Address: [address] [place] [address] Performed By: #### 2 695-5 ####[facility]ENTER[facility] [id number] [place] [address] [place] Sodium ?Tm Ur-sCncon 025 Sodium Unsp time (U) [Moles/Vol] 30 mmol/L Normal 14-[address] [facility] Comment on above: Order Comment: Speci men Type: URINE SPECIMENOrdering Facility: [facility] Address: [address] [place] [address] Performed By: #### 3 5678-2 ####[facility] LABIA [id number] [place] [address] [place] Urate SerPl-mCncon 5 Urate [Mass/Vol] 9.9 mg/dL High 4.0-8.1 [facility] Comment on above: Order Comment: Speci men Type: BLOOD SPECIMENOrdering Facility: [facility] Address: [address] [place] [address] Performed By: #### 1 988-5, 3084-1, 53273-8, 50193-4 ####[facility] LABCLIA [id number] [place]OUNA [place] [id number] [address] [place] XR KNEE 4V [...] imaging/MRI can be performed for further evaluation Pastry Cook: JOHN Transcribe Date/Time: Aug 13 2024 4:59P Dictated by : MIN GUTIERREZ MD This examination was interpreted and the report reviewed and electronically signed by: MIN GUTIERREZ MD on Aug 13 2024 5:02PM EST [id number] Normal [facility] CNPNon 08-07-2024 CNPN Telephone (FAMPWS) BETHANY MONTALVO ([id number]) 1965 M Date Time Provider Department 08/07/24 [...] Date Reviewed: 07/13/2024 Reviewed by: Rosa Wade APRN.HOME AND FAMILY LIVING PROFESSOR - Fully Assessed Reason for Visit: Results [95] Primary Visit Diagnosis:Hyponatremia [E87.1] Other Visit Diagnoses:Elevated alkaline phosphatase level [R74.8] Elevated PSA [R97.20] Elevated hemoglobin (HCC) [D58.2] Order(s):BASIC METABOLIC PANEL [SQBMP] Order #: [id number] FUTURE SODIUM RANDOM URINE [SQUNAR] Order #: [id number] FUTURE OSMOLALITY URINE [SQUOSM] Order #: [id number] FUTURE ALK PHOS ISOENZYM BL [SQALKISO] Order #: [id number] FUTURE PROSTATE SPECIFIC ANTIGEN, FREE [SQPSATF] Order #: [id number] FUTURE COMPLETE BLOOD COUNT AND DIFFERENTIAL [SQCBCDIF] Order #: [id number] FUTURE Prescriptions as of 08/07/2024 - busPIRone [...] Status:Closed by DONNA RICHEY on 08/07/[address] [facility] CBC W Auto Differential pane l (Bld)on 08-05-2024 Basophils (Bld) [#/Vol] 0.04 10*3/uL Normal <0.[address] [facility] Comment on above: Order Comment: Speci men Type: BLOOD SPECIMENOrdering Facility: [facility] Address: [address] [place] [address] Performed By: #### 5 7021-8 ####[facility] [id number] [place] [address] [place] Basophils/100 WBC (Bld) 0.4 % Normal [facility] Comment on above: Order Comment: Speci men Type: BLOOD SPECIMENOrdering Facility: [facility] Address: [address] [place] [address] Performed By: #### 5 7021-8 ####[facility] [id number] [place] [address] [place] Differential cell count method Nom (Bld) Auto Normal [facility] Comment on above: Order Comment: Speci men Type: BLOOD SPECIMENOrdering Facility: [facility] Address: [address] [place] [address] Performed By: #### 5 7021-8 ####[facility] [id number] [place] [address] [place] Eosinophils (Bld) [#/Vol] 0.09 10*3/uL Normal <0.[address] [facility] Comment on above: Order Comment: Speci men Type: BLOOD SPECIMENOrdering Facility: [facility] Address: [address] [place] [address] Performed By: #### 5 7021-8 ####[facility]ENTER[facility]IA [id number] [place] [address] [place] Eosinophils/100 WBC (Bld) 0.9 % Normal [facility] Comment on above: Order Comment: Speci men Type: BLOOD SPECIMENOrdering Facility: [facility] Address: [address] [place] [address] Performed By: #### 5 7021-8 ####[facility] [id number] [place] [address] [place] Erythrocyte distribution width (RBC) [Ratio] 11.7 % Normal 11.5-15.[address] [facility] Comment on above: Order Comment: Speci men Type: BLOOD SPECIMENOrdering Facility: [facility] Address: [address] [place] [address] Performed By: #### 5 7021-8 ####[facility] [id number] [place] [address] [place] Hematocrit (Bld) [Volume fraction] 49.8 % Normal 39.0-51.[address] [facility] Comment on above: Order Comment: Speci men Type: BLOOD SPECIMENOrdering Facility: [facility] Address: [address] [place] [address] Performed By: #### 5 7021-8 ####[facility] [id number] [place] [address] [place] Hemoglobin (Bld) [Mass/Vol] 18.0 g/dL High 13.0-17.[address] [facility] Comment on above: Order Comment: Speci men Type: BLOOD SPECIMENOrdering Facility: [facility] Address: [address] [place] [address] Performed By: #### 5 7021-8 ####[facility] [id number] [place] [address] [place] Immature granulocytes (Bld) [#/Vol] 0.08 10*3/uL Normal <0.[address] [facility] Comment on above: Order Comment: Speci men Type: BLOOD SPECIMENOrdering Facility: [facility] Address: [address] [place] [address] Performed By: #### 5 7021-8 ####[facility] MAIKLIA [id number] [place] [address] [place] Immature granulocytes/100 WBC (Bld) 0.8 % Normal [facility] Comment on above: Order Comment: Speci men Type: BLOOD SPECIMENOrdering Facility: [facility] Address: [address] [place] [address] Performed By: #### 5 7021-8 ####[facility]ERKASSANDRALIA [id number] [place] [address] [place] Lymphocytes (Bld) [#/Vol] 1.71 10*3/uL Normal 1.00-4.[address] [facility] Comment on above: Order Comment: Speci men Type: BLOOD SPECIMENOrdering Facility: [facility] Address: [address] [place] [address] Performed By: #### 5 7021-8 ####[facility]ASSANDRALIA [id number] [place] [address] [place] Lymphocytes/100 WBC (Bld) 17.6 % Normal [facility] Comment on above: Order Comment: Speci men Type: BLOOD SPECIMENOrdering Facility: [facility] Address: [address] [place] [address] Performed By: #### 5 7021-8 ####[facility] CENTERLIA [id number] [place] [address] [place] MCH (RBC) [Entitic mass] 33.6 pg Normal 26.0-34.[address] [facility] Comment on above: Order Comment: Speci men Type: BLOOD SPECIMENOrdering Facility: [facility] Address: [address] [place] [address] Performed By: #### 5 7021-8 ####[facility] [id number] [place] [address] [place] MCHC (RBC) [Mass/Vol] 36.1 g/dL High 30.5-36.0 [facility] Comment on above: Order Comment: Speci men Type: BLOOD SPECIMENOrdering Facility: [facility] Address: [address] [place] [address] Performed By: #### 5 7021-8 ####[facility] [id number] [place] [address] [place] MCV (RBC) [Entitic vol] 93.1 fL Normal 80.0-100.[address] [facility] Comment on above: Order Comment: Speci men Type: BLOOD SPECIMENOrdering Facility: [facility] Address: [address] [place] [address] Performed By: #### 5 7021-8 ####[facility] [id number] [place] [address] [place] Monocytes (Bld) [#/Vol] 0.58 10*3/uL Normal <0.[address] [facility] Comment on above: Order Comment: Speci men Type: BLOOD SPECIMENOrdering Facility: [facility] Address: [address] [place] [address] Performed By: #### 5 7021-8 ####[facility] [id number] [place] [address] [place] Monocytes/100 WBC (Bld) 6.0 % Normal [facility] Comment on above: Order Comment: Speci men Type: BLOOD SPECIMENOrdering Facility: [facility] Address: [address] [place] [address] Performed By: #### 5 7021-8 ####[facility]ENTERNCLIA [id number] [place] [address] [place] Neutrophils (Bld) [#/Vol] 7.19 10*3/uL Normal 1.45-7.[address] [facility] Comment on above: Order Comment: Speci men Type: BLOOD SPECIMENOrdering Facility: [facility] Address: [address] [place] [address] Performed By: #### 5 7021-8 ####[facility] [id number] [place] [address] [place] Neutrophils/100 WBC (Bld) 74.3 % Normal [facility] Comment on above: Order Comment: Speci men Type: BLOOD SPECIMENOrdering Facility: [facility] Address: [address] [place] [address] Performed By: #### 5 7021-8 ####[facility] [id number] [place] [address] [place] Nucleated RBC (Bld) [#/Vol] 10*3/uL Normal <0.[address] [facility] Comment on above: Order Comment: Speci men Type: BLOOD SPECIMENOrdering Facility: [facility] Address: [address] [place] [address] Performed By: #### 5 7021-8 ####[facility] [id number] [place] [address] [place] Nucleated RBC/100 WBC (Bld) [Ratio] 0.0 /100 WBC Normal [facility] Comment on above: Order Comment: Speci men Type: BLOOD SPECIMENOrdering Facility: [facility] Address: [address] [place] [address] Performed By: #### 5 7021-8 ####[facility] [id number] [place] [address] [place] Platelet mean volume (Bld) [Entitic vol] 9.5 fL Normal 9.0-12.[address] [facility] Comment on above: Order Comment: Speci men Type: BLOOD SPECIMENOrdering Facility: [facility] Address: [address] [place] [address] Performed By: #### 5 7021-8 ####[facility] RAPHAEL KASEYNCFLAKITAA [id number] [place] [address] [place] Platelets (Bld) [#/Vol] 184 10*3/uL Normal 150-[address] [facility] Comment on above: Order Comment: Speci men Type: BLOOD SPECIMENOrdering Facility: [facility] Address: [address] [place] [address] Performed By: #### 5 7021-8 ####[facility] KASEYNCLIA [id number] [place] [address] [place] RBC (Bld) [#/Vol] 5.35 10*6/uL Normal 4.20-6.00 [facility] Comment on above: Order Comment: Speci men Type: BLOOD SPECIMENOrdering Facility: [facility] Address: [address] [place] [address] Performed By: #### 5 7021-8 ####[facility] MARY CARMENHOLLYWOODNCLIA [id number] [place] [address] [place] WBC (Bld) [#/Vol] 9.69 10*3/uL Normal 3.70-11.00 [facility] Comment on above: Order Comment: Speci men Type: BLOOD SPECIMENOrdering Facility: [facility] Address: [address] [place] [address] Performed By: #### 5 7021-8 ####[facility]CL[facility] [id number] [place] [address] [facility] [place] Comprehensive metabolic 2000 panelon 08-05-2024 Albumin [Mass/Vol] 4.7 g/dL Normal 3.9-4.9 [facility] Comment on above: Order Comment: Speci men Type: BLOOD SPECIMENOrdering Facility: [facility] Address: [address] [place] [address] Performed By: #### 2 4323-8, ####[facility] RAPHAEL MILLTOWNCLIA [id number] [place] [address] [place] ALP [Catalytic activity/Vol] 169 U/L High 38-[address] [facility] Comment on above: Order Comment: Speci men Type: BLOOD SPECIMENOrdering Facility: [facility] Address: [address] [place] [address] Performed By: #### 2 4323-8, ####[facility] MILLTOWNCLIA [id number] [place] [address] [place] ALT [Catalytic activity/Vol] 42 U/L Normal 10-[address] [facility] Comment on above: Order Comment: Speci men Type: BLOOD SPECIMENOrdering Facility: [facility] Address: [address] [place] [address] Performed By: #### 2 4323-8, ####[facility] MILLTOWNCLIA [id number] [place] [address] [place] Anion gap [Moles/Vol] 11 mmol/L Normal 8-15 [facility] Comment on above: Order Comment: Speci men Type: BLOOD SPECIMENOrdering Facility: [facility] Address: [address] [place] [address] Performed By: #### 2 4323-8, ####[facility] MILLTOWNCLIA [id number] [place] [address] [place] AST [Catalytic activity/Vol] 70 U/L High 14-[address] [facility] Comment on above: Order Comment: Speci men Type: BLOOD SPECIMENOrdering Facility: [facility] Address: [address] [place] [address] Performed By: #### 2 4323-8, ####[facility] MILLTOWNCLIA [id number] [place] [address] [place] Bilirubin [Mass/Vol] 0.7 mg/dL Normal 0.2-1.3 [facility] Comment on above: Order Comment: Speci men Type: BLOOD SPECIMENOrdering Facility: [facility] Address: [address] [place] [address] Performed By: #### 2 4323-8, ####[facility] MILLWNCLIA [id number] [place] [address] [place] Calcium [Mass/Vol] 10.3 mg/dL High 8.5-10.2 [facility] Comment on above: Order Comment: Speci men Type: BLOOD SPECIMENOrdering Facility: [facility] Address: [address] [place] [address] Performed By: #### 2 4323-8, ####[facility] P[facility]OLAWKASSANDRALIA [id number] [place] [address] [place] Chloride [Moles/Vol] 94 mmol/L Low 98-107 [facility] Comment on above: Order Comment: Speci men Type: BLOOD SPECIMENOrdering Facility: [facility] Address: [address] [place] [address] Performed By: #### 2 4323-8, ####[facility] MILLTOWNCLIA [id number] [place] [address] [place] CO2 [Moles/Vol] 27 mmol/L Normal 22-[address] [facility] Comment on above: Order Comment: Speci men Type: BLOOD SPECIMENOrdering Facility: [facility] Address: [address] [place] [address] Performed By: #### 2 4323-8, ####[facility] MILLTOWNCLIA [id number] [place] [address] [place] Creatinine [Mass/Vol] 1.26 mg/dL High 0.73-1.22 [facility] Comment on above: Order Comment: Chirag jeffrey Type: BLOOD SPECIMENOrdering Facility: [facility] Address: [address] [place] [address] Performed By: #### 2 4323-8, ####[facility]I [id number] [place] [address] [place] Creatinine and Glomerular filtration rate.predicted panel (S/P/Bld) 67 mL/min/1.73m??? Normal >=[address] [facility] Comment on above: Order Comment: Chirag jeffrey Type: BLOOD SPECIMENOrdering Facility: [facility] Address: [address] [place] [address] Result Comment: Misty mated Glomerular Filtration Rate [...] actual GFR. Performed By: #### 2 4323-8, ####[facility]CLIA [id number] [place] [address] [place] Glucose [Mass/Vol] 112 mg/dL High 74-99 [facility] Comment on above: Order Comment: Chirag jeffrey Type: BLOOD SPECIMENOrdering Facility: [facility] Address: [address] [place] [address] Result Comment: The [place] Diabetes Association (ADA) provides guidance for cutoff [...] Standards of Medical Care in Diabetes 2016, [place] Diabetes Association. Diabetes Care. 2016.39(Suppl 1). Performed By: #### 2 432-8, ####[facility] CENTERLIPrachi [id number] [place] [address] [place] Potassium [Moles/Vol] 4.8 mmol/L Normal 3.7-5.1 [facility] Comment on above: Order Comment: Speci men Type: BLOOD SPECIMENOrdering Facility: [facility] Address: [address] [place], [place] [address] Performed By: #### 2 4323-02, ####[facility] [id number] [place] [address] [place] Protein [Mass/Vol] 8.0 g/dL Normal 6.3-8.0 [facility] Comment on above: Order Comment: Speci men Type: BLOOD SPECIMENOrdering Facility: [facility] Address: [address] [place], [place] [address] Performed By: #### 2 4323-02, ####[facility] [id number] [place] [address] [place] Sodium [Moles/Vol] 132 mmol/L Low 136-144 [facility] Comment on above: Order Comment: Speci men Type: BLOOD SPECIMENOrdering Facility: [facility] Address: [address] [place] [address] Performed By: #### 2 432-, ####[facility] [id number] [place] [address] [place] Urea nitrogen [Mass/Vol] 11 mg/dL Normal 9-[address] [facility] Comment on above: Order Comment: Speci men Type: BLOOD SPECIMENOrdering Facility: [facility] Address: [address] [place] [address] Performed By: #### 2 4323-8, 99337-0 ####[facility] [id number] [place] [address] [place] Folate [facility] 08-05-19 25 Folate [Mass/Vol] ng/mL Normal >4.7 [facility] Comment on above: Order Comment: Speci men Type: BLOOD SPECIMENOrdering Facility: [facility] Address: [address] [place] [address] Result Comment: A re sult of > 20 ng/mL is not necessarily indicative of a pathologic or treatable condition: it reflects a limitation of the test methodology. Assay reference range: 4.8 to 24.2 ng/mL. Suitable for detection of folate deficiency. Reference: Folate III (Folate III) [package insert V 1.0 Jordanian]. [facility], [place], [place]: May 2015. Performed By: #### 2 132-9, 8 ####[facility] LABCLIA [id number] [place] [address] [place]#### 91613-7 ####[facility] LABCLIA [id number] [facility] [place] [address] [place] [facility] [id number] [place] [address] [place] Lipid 1996 panelon 5 Cholesterol [Mass/Vol] 218 mg/dL High <[address] [facility] Comment on above: Order Comment: Speci men Type: BLOOD SPECIMENOrdering Facility: [facility] Address: [address] [place] [address] Result Comment: <200 mg/dL, Desirable 200-239 mg/dL, Borderline high >239 mg/dL, High Performed By: #### 2 132-9, 2283-8 ####[facility] LABCLIA [id number] [place] [address] [place]#### 33836-9 ####[facility] LABCLIA [id number] [address] [id number] [place] [address] [place] Cholesterol in HDL [Mass/Vol] 29 mg/dL Low >[address] [facility] Comment on above: Order Comment: Speci men Type: BLOOD SPECIMENOrdering Facility: [facility] Address: [address] [place] [address] Result Comment: 40-5 9 mg/dL, Acceptable >59 mg/dL, High: Negative risk factor for coronary heart disease <40 mg/dL, Low: Positive risk factor for coronary heart disease Performed By: #### 2 132-9, 2283-8 ####[facility] LABCLIA [id number] [place] [address] [place]#### 38845-8 ####[facility] LABCLIA [id number] [address] [id number] [place] [address] [place] Cholesterol in LDL [Mass/Vol] 124 mg/dL High <[address] [facility] Comment on above: Order Comment: Speci men Type: BLOOD SPECIMENOrdering Facility: [facility] Address: [address] [place] [address] Result Comment: <100 mg/dL, Optimal 100-129 mg/dL, Near optimal/above optimal 130-159 mg/dL, Borderline high 160-189 mg/dL, High >189 mg/dL, Very high Secondary prevention optimal LDL Cholesterol levels are recommended to be < 70 mg/dL Performed By: #### 2 132-9, 228-8 ####[facility] LABCLIA [id number] [address] [place]#### 58819-1 ####[facility] LABCLIA [id number] [address] [id number] [address] STATES [facility] Cholesterol in LDL/Cholesterol in HDL [Mass ratio] 4.28 {ratio} High <2.[address] [facility] Comment on above: Order Comment: Speci men Type: BLOOD SPECIMENOrdering Facility: [facility] Address: [address] [place] [address] Result Comment: Refe venessa: 1. National Cholesterol Education Program ATP III Guideline At-A-Glance Quick Desk Reference: National Heart, Lung, and Blood Low Moor. National Institutes of Health. 2001: NIH Publication No. 01-3305. 2. An International Atherosclerosis Society position paper: global recommendations for the management of dyslipidemia: executive summary, Atherosclerosis. 2014: 232(2):410-413. Performed By: #### 2 132-9, 2283-8 ####[facility] LABCLIA [id number] [place] [address] [place]#### 86267-6 ####[facility] LABCLIA [id number] [address] [id number] [place] [address] [place] Cholesterol in VLDL [Mass/Vol] 65 mg/dL High <[address] [facility] Comment on above: Order Comment: Speci men Type: BLOOD SPECIMENOrdering Facility: [facility] Address: [address] [place] [address] Performed By: #### 2 132-9, 2283-8 ####[facility] LABCLIA [id number] [place] [address] [place]#### 25751-4 ####[facility] LABCLIA [id number] [address] [id number] [place] [address] [place] Cholesterol non HDL [Mass/Vol] 189 mg/dL High <[address] [facility] Comment on above: Order Comment: Speci men Type: BLOOD SPECIMENOrdering Facility: [facility] Address: [address] [place] [address] Result Comment: <130 mg/dL, Optimal 130-159 mg/dL, Near optimal/above optimal 160-189 mg/dL, Borderline high 190-219 mg/dL, High >219 mg/dL, Very high Secondary prevention optimal non HDL Cholesterol levels are recommended to be <100 mg/dL Performed By: #### 2 132-9, 2283-8 ####[facility] LABCLIA [id number] [place] [address] [place]#### 41278-4 ####[facility] LABCLIA [id number] [address] STATES [facility] [id number] [place] [address] [place] Cholesterol.total/Cho lesterol in HDL [Mass ratio] 7.52 {ratio} High <5.[address] [facility] Comment on above: Order Comment: Speci men Type: BLOOD SPECIMENOrdering Facility: [facility] Address: [address] [place] [address] Performed By: #### 2 132-9, 2283-8 ####[facility] LABCLIA [id number] [place] [address] [place]#### 07696-4 ####[facility] LABCLIA [id number] [address] STATES OF [facility] [id number] [place] [address] [place] FASTING TIME 12 hrs Normal [facility] Comment on above: Order Comment: Speci men Type: BLOOD SPECIMENOrdering Facility: [facility] Address: [address] [place] [address] Performed By: #### 2 132-9, 4-8 ####[facility] LABCLIA [id number] [place] [address] [place]#### 74465-2 ####[facility] LABCLIA [id number] [place] [address] [place] [facility] [id number] [place] [address] [place] Triglyceride [Mass/Vol] 324 mg/dL High <[address] [facility] Comment on above: Order Comment: Speci men Type: BLOOD SPECIMENOrdering Facility: [facility] Address: [address] [place] [address] Result Comment: <150 mg/dL, Normal 150-199 mg/dL, Borderline high 200-499 mg/dL, High >499 mg/dL, Very high Performed By: #### 2 132-9, 8 ####[facility] LABCLIA [id number] [place] [address] [place]#### 14858-7 ####[facility] LABCLIA [id number] [place] [address] [place] [facility] [id number] [place] [address] [place] Magnesium SerPl-ncon 08-05 Magnesium [Mass/Vol] 1.8 mg/dL Normal 1.7-2.3 [facility] Comment on above: Order Comment: Speci men Type: BLOOD SPECIMENOrdering Facility: [facility] Address: [address] [place] [address] Performed By: #### 2 4323-8, 68125-1 ####[facility] [id number] [place] [address] [place] PSA/PROSTATE SPECIFIC ANTIGE N SCREENINGon 08-05-2024 Prostate specific Ag [Mass/Vol] 4.82 ng/mL High <2.[address] [facility] Comment on above: Order Comment: Speci men Type: BLOOD SPECIMENOrdering Facility: [facility] Address: [address] [place] [address] Result Comment: Tota l PSA test methodology [...] Med 2003,349:335-42. Performed By: #### P SAS1 ####[facility] LABCLIA [id number] [place] [address] [place] US CAROTID ARTERIES MARY[facility]AS LABon 08-05-2024 US CAROTID ARTERIES [facility] LAB Non-Invasive Vascular Laboratory [facility] Carotid Duplex Bilateral/Complete Date of service/time: 08/05/2024 [...] interpretation criteria are used as recommended by Inters[facility] Accreditation Commission. When compared with the prior [...] Subclavian artery: Patent. Technologist: Lizzie Stephenson [facility] Ordering physician: KEREN KWON Interpreting physician: NEFTALI Luna DO Final CC Node Management Medical Image : [id number] goDynamicsSISUID See Link below for Image Normal [facility] Vit B12 [facility] 15-2 025 Cobalamin (Vitamin B12) [Mass/Vol] 366 pg/mL Normal 232-[address] [facility] Comment on above: Order Comment: Speci men Type: BLOOD SPECIMENOrdering Facility: [facility] Address: [address] [place] [address] Performed By: #### 2 132-9, 2284-8 ####[facility] LABCLIA [id number] [place] [address] [place]#### 71758-3 ####[facility] LABCLIA [id number] [place] [address] [facility] [id number] [place] [address] [facility] Ankle min 3 Viewson 07-23-19 Ankle min 3 Views [facility] Imaging Services [address] [place] [address] Ankle min 3 Views MR#: [id number] Acct: [id number] Name: BETHANY MONTALVO Rep #: [id number] : 1965 M 58 From: Sherwin wells MD PCP: XUAN Armendariz Status: PRE ER Study: Ankle min 3 Views Date of Exam: 07/23/24 Exam# [id number] Ordering Dr: Provider,Junaid P. [id number] STUDY: X-RAY - LEFT ANKLE REASON FOR [...] 13:27 EST Reading Location ID and State: [facility] / [place] , Service support , CC: XUAN Kwon; ED PHYSICIAN PROVIDER Pastry Cook: Signed Normal [facility] Ankle min 3 Views [facility] Imaging Services [address] [place] [address] Ankle min 3 Views MR#: [id number] Acct: [id number] Name: BETHANY MONTALVO Rep #: [id number] : 1965 M 58 From: Sherwin wells MD PCP: XUAN Armendariz Status: PRE ER Study: Ankle min 3 Views Date of Exam: 07/23/24 Exam# [id number] Ordering Dr: Jordan,Junaid P. [id number] STUDY: X-RAY - RIGHT ANKLE REASON FOR [...] 13:19 EST Reading Location ID and State: [facility] / [place] , Service support , CC: XUAN Kwon; ED PHYSICIAN PROVIDER Pastry Cook: Signed Normal [facility] Emergency Department Summary on 07-23-2024 Emergency Department Summary [facility] Medical Records Department [address] [place] [address] Emergency Department Summary 07/23/24 MR#: [id number] Acct: [id number] Name: BETHANY MONTALVO Rep #: [id number] : 1965 58 From: Nik Campbell DO PCP: XUAN Armendariz Status:DEP ER Location: ED HPI History of Present Illness Chief Complaint: Lower Extremity Injury [facility] Medical History Personal history of colon polyps, [...] Suicidal ideation Atherosclerosis of coronary artery of [place] heart without angina pectoris Depression NSTEMI (non-ST [...] apartment current occupational status: employed current occupation: [employer] Smoking Status: Former smoker alcohol intake: current [...] EXAM: Nursing (more content not included)... Normal [facility] Foot min 3 Viewson 5 Foot min 3 Views [facility] Imaging Services [address] [place] [address] Foot min 3 Views MR#: [id number] Acct: [id number] Name: BETHANY MONTALVO Rep #: [id number] : 1965 M 58 From: Sherwin wells MD PCP: XUAN Armendariz Status: PRE ER Study: Foot min 3 Views Date of Exam: 07/23/24 Exam# [id number] Ordering Dr: Junaid Ortega [id number] STUDY: X-RAY - LEFT FOOT CLINICAL: Male, [...] 13:19 EST Reading Location ID and State: [facility] / [place] , Service support , CC: XUAN Kwon; ED PHYSICIAN PROVIDER Pastry Cook: Signed Normal [facility] Foot min 3 Views [facility] Imaging Services [address] [place], [place] [address] Foot min 3 Views MR#: [id number] Acct: [id number] Name: BETHANY MONTALVO Rep #: [id number] : 1965 M 58 From: Sherwin wells MD PCP: XUAN Armendariz Status: PRE ER Study: Foot min 3 Views Date of Exam: 07/23/24 Exam# [id number] Ordering Dr: Jordan,Junaid P. [id number] STUDY: X-RAY - RIGHT FOOT CLINICAL: Male, [...] 13:27 EST Reading Location ID and State: [address] [place] [address] , Service support , CC: XUAN Kwon; ED PHYSICIAN PROVIDER Pastry Cook: Signed Normal [facility] Tibia Fibula 2 Viewson 07-[address] Tibia Fibula [address] [facility] Imaging Services [address] [place], [place] [address] Tibia Fibula 2 Views MR#: [id number] Acct: [id number] Name: BETHANY MONTALVO Rep #: [id number] : 1965 M 58 From: Sherwin wells MD PCP: XUAN Armendariz Status: PRE ER Study: Tibia Fibula 2 Views Date of Exam: 07/23/24 Exam# [id number] Ordering Dr: Junaid Ortega [id number] STUDY: X-RAY - LEFT TIBIA AND FIBULA [...] 13:22 EST Reading Location ID and State: [address] [place] [address] , Service support , CC: SOUS CHEF-Ang Kwon; ED PHYSICIAN PROVIDER Pastry Cook: Signed Normal [facility] Tibia Fibula [address] [facility] Imaging Services [address] [place] [address] Tibia Fibula 2 Views MR#: [id number] Acct: [id number] Name: BETHANY MONTALVO Rep #: [id number] : 1965 M 58 From: Sherwin wells MD PCP: XUAN Armendariz Status: PRE ER Study: Tibia Fibula 2 Views Date of Exam: 07/23/24 Exam# [id number] Ordering Dr: Provider,Ed P. [id number] STUDY: X-RAY - RIGHT TIBIA AND FIBULA [...] 13:22 EST Reading Location ID and State: [address] [place] [address] , Service support , CC: XUAN Kwon; ED PHYSICIAN PROVIDER Pastry Cook: Signed Normal [facility] Toe(s) Min 2 Viewson 025 Toe(s) Min 2 Views [facility] Imaging Services [address] [place] [address] Toe(s) Min 2 Views MR#: [id number] Acct: [id number] Name: BETHANY MONTALVO Rep #: [id number] : 1965 M 58 From: Sherwin wells MD PCP: XUAN Armendariz Status: PRE ER Study: Toe(s) Min 2 Views Date of Exam: 07/23/24 Exam# [id number] Ordering Dr: Jordan,Ed P. [id number] STUDY: X-RAY RIGHT FOOT, GREAT TOE REASON [...] 13:28 EST Reading Location ID and State: [facility] / [place] , Service support , CC: XUAN Kwon; ED PHYSICIAN PROVIDER Pastry Cook: Signed [facility] 07-13-2024 [facility] BETHANY MONTALVO ([id number]) 1965 M Date Time Provider Department 07/13/24 2:30 PM ROSA WADE [facility] During your visit today, we [...] seem more viral in origin and recommended ibmg-ivm-rhsarkp cough and cold medication and follow-up with PCP. - XR CHEST 2V FRONTAL/LAT - COVID AND INFLUENZA A/B AND RSV PCR, ROUTINE Rosa Wade APRN.HOME AND FAMILY LIVING PROFESSOR Allergies As of Date: 07/13/2024 Noted Allergy Reaction SUDAFED (PSEUDOEPHEDRINE) 06/26/2016 14 - Other: See Comments Comments: Prostate infection Date Reviewed: 07/13/2024 Reviewed by: Rosa Wade APRN.HOME AND FAMILY LIVING PROFESSOR - Fully Assessed Reason for Visit: Sore Throat [200] Cmt: ST, bodyaches and nausea x 1 week Primary Visit Diagnosis:Acute cough [R05.1] Order(s):XR CHEST 2V FRONTAL/LAT [[id number]] Order #: [id number] FUTURE COVID AND INFLUENZA A/B AND RSV PCR, ROUTINE [facility]] Order #: [id number]. #:[id number] Prescriptions as of 07/13/2024 - atorvastatin (LIPITOR) [...] Status:Closed by ROSA WADE on 07/13/[address] [facility] COVID AND INFLUENZA A/B AND RSV PCR, ROUTINEon 07-13-2024 SARS-CoV-2 (COVID-19) RNA ABBY+probe Ql (Unsp spec) SARS-COV-2 (AGENT OF COVID-19) RNA: Not detected INFLUENZA A RNA: Not detected INFLUENZA B RNA: Not detected RESPIRATORY SYNCYTIAL VIRUS (RSV) RNA: Not detected Normal [facility] Comment on above: Performed By: #### C VFLRS ####[facility] LABCLIA [id number] [address] [place] XR CHEST 2V [...] tissues: Unremarkable. IMPRESSION: No acute radiographic abnormality. Pastry Cook: PSCB Transcribe Date/Time: Jul 13 2024 2:08P Dictated by : DIPESH STEELE MD This examination was interpreted and the report reviewed and electronically signed by: DIPESH STEELE MD on Jul 13 2024 2:08PM EST [id number] Normal [facility] XR Chest PA and Lateralon IMPRESSION: No acute radiographic abnormality. Pastry Cook: PSCB Transcribe Date/Time: Jul 13 2024 2:08P Dictated by : DIPESH STEELE MD This examination was interpreted and the report reviewed and electronically signed by: DIPESH STEELE MD on Jul 13 2024 2:08PM [facility] DIVISION OF RADIOLOGY * * *Final Report* [...] soft tissues: Unremarkable. DIVISION OF RADIOLOGY Provider, [facility] - 07/13/2024 * * *Final [...] Unremarkable. IMPRESSION IMPRESSION: No acute radiographic abnormality. Pastry Cook: PSCB Transcribe Date/Time: Jul 13 2024 2:08P Dictated by : DIPESH STEELE MD This examination was interpreted and the report reviewed and electronically signed by: DIPESH STEELE MD on Jul 13 2024 2:08PM [facility] Radiology Study observation (narrative) [facility] XR Chest PA and LateralOrder ed By: Ccf Provider on 07-13-2024 [facility] CNOVon 07-09-2024 CNOV Office Visit ([facility] ) BETHANY MONTALVO ([id number]) 1965 M Date Time Provider Department 07/09/24 5:00 PM DESMOND DUNCAN [facility] During your visit today, we recorded the following information about you: Temperature Pulse Respiration Blood pressure 98.4 degrees 98/minute 18/minute 128/78 Weight 97.2 kg Desmond Duncan, GERARDO.HOME AND FAMILY LIVING PROFESSOR 07/09/2024 6:04 PM Signed Subjective HPI Nontoxic-appearing male presents urgent care chief complaint sore throat body aches chills headache cough. Duration of symptoms few days. Associated symptoms listed above. Additionally has had right elbow injury for about 1 week. States he struck his elbow on a rail at work. Presents today for evaluation. Qraag-pxbp-dyszwalh. Denies any other injuries. OTC medications none [...] Age of Onset Psychiatry Mother Heart Mother [place] 53 Heart Father [place] 51 Colon Cancer Father Social History Tobacco [...] pharyngeal swel (more content not included)... Normal [facility] 07-09-2024 [facility] Telephone ([facility]) BETHANY MONTALVO ([id number]) 1965 M Date Time Provider Department 07/09/24 DESMOND DUNCAN [facility] During your visit today, we [...] Date Reviewed: 07/09/2024 Reviewed by: Desmond Duncan APRN.HOME AND FAMILY LIVING PROFESSOR - Fully Assessed Reason for Visit: Results [...] Status:Closed by ARIELA AVELAR on 07/12/[address] [facility] STREP A MOLECULAR (POC)on Procedural Control Valid [facility] Strep A (POCT) Negative Negative [facility] XR ELBOW 3V AP/LAT/OTHER RTo n [...] IMPRESSION: No acute osseous abnormalities are identified. Pastry Cook: JOHN Transcribe Date/Time: Jul 09 2024 5:59P Dictated by : MICHELA KESSLER MD This examination was interpreted and the report reviewed and electronically signed by: MICHELA KESSLER MD on Jul 09 2024 6:01PM EST [id number] Normal [facility] XR Elbow - right AP and Late ral and obliqueon 07-09-2024 IMPRESSION: No acute osseous abnormalities are identified. Pastry Cook: [facility]ITAL[facility] Transcribe Date/Time: Jul 09 2024 5:59P Dictated [...] is identified. DIVISION OF RADIOLOGY [facility] * * *Final Report* [...] IMPRESSION: No acute osseous abnormalities are identified. Pastry Cook: PSCB Transcribe Date/Time: Jul 09 2024 5:59P Dictated by : MICHELA KESSLER MD This examination was interpreted and the report reviewed and electronically signed by: MICHELA KESSLER MD on Jul 09 2024 6:01PM EST [facility] Radiology Study observation (narrative) [facility] XR Elbow - right AP and Late ral and obliqueOrdered By: Ccf Provider on 07-09-2024 [facility] CNOVon 06-22-2024 CNOV Office Visit (GENSWS ) BETHANY MONTALVO ([id number]) 1965 M Date Time Provider Department 06/22/24 4:00 PM ALMA DELIA GARZA GENSWS During your visit today, we recorded the following information about you: Temperature Pulse Blood pressure Weight 98.9 degrees 107/minute 142/92 98.2 kg Height 1.803 m Alma Delia Garza APRN.CNP 06/22/2024 4:31 PM Signed HISTORY AND PHYSICAL Bethany Montalvo : 1965 REFERRING PHYSICIAN: Keren Kwon [address] [facility] [id number] CHIEF COMPLAINT: Patient presents with: Consult: colonoscopy [...] AND colonoscopy 12/[address] Payton at [facility]. Sedation: MAC EGD Impression: -Normal examined [...] Heart Mother (more content not included)... [facility] ([facility]) BETHANY MONTALVO ([id number]) 1965 Date Time Provider Department 06/22/24 ALMA DELIA GARZA GENSWS During your visit today, we recorded the following information about you: Alma Delia Garza APRN.HOME AND FAMILY LIVING PROFESSOR 06/22/2024 4:30 PM Signed Please fax GI consult to Dr. Lovell at [facility]. Thank you, Alma Delia Garza APRN.Jaret Pinto MA 06/23/2024 4:48 PM Signed Faxed as requested. Jaret Paulino MA Allergies As of Date: 06/22/2024 Noted Allergy Reaction SUDAFED (PSEUDOEPHEDRINE) 06/26/2016 14 - Other: See Comments Comments: Prostate infection Date Reviewed: 06/22/2024 Reviewed by: Alma Delia Garza APRN.HOME AND FAMILY LIVING PROFESSOR - Fully Assessed Prescriptions as of 06/23/2024 [...] without esophagitis [K21.9] 11/05/2022 Encounter Status:Closed by JRAET PAULINO on 06/23/24 [facility] CNOVon 06-12-2024 [facility]OV [facility] BETH[facility] MONTALVO ([id number]) 1965 M Date Time Provider Department 06/12/24 2:40 PM KEREN [facility] During your visit today, we [...] CAD: Denies any chest pain/SOB. Following with [employer] [facility]. Last appt in September. GERD: Stable on [...] Age of Onset Psychiatry Mother Heart Mother [place] 53 Heart Father [place] 51 Colon Cancer Father Social History Tobacco [...] I25. (more content not included)... Normal [facility] Basophil percentageOrdered B y: Casey Brewer on 10-14-2023 Bilirubin [Mass/Vol] 0.70 mg/dL 0.20-1.00 [facility] Comment on above: For patients on eltr ombopag therapy, use of Dimension [place] TBIL is not recommended. Chloride [Moles/Vol] 102 mmol/L 98-107 [facility] Glucose [Mass/Vol] 97 mg/dL 74-106 [facility] Hemoglobin (Bld) [Mass/Vol] 14.9 g/dL 13.0-16.5 [facility] Potassium [Moles/Vol] 4.8 mmol/L 3.5-5.1 [facility] Protein [Mass/Vol] 7.3 g/dL 6.4-8.2 [facility] Sodium [Moles/Vol] 137 mmol/L 136-145 [facility] WBC (Bld) [#/Vol] 6.0 10*3/uL 4.4-11.0 [facility] Determination of erythrocyte mean corpuscular volume (MCV)Ordered By: Casey Brewer on 10-14-2023 MCV (RBC) [Entitic vol] 95.4 fL 80-94 [facility] Erythrocyte distribution wid th ratioOrdered By: Caseymanan Brewer on 10-14-2023 Erythrocyte distribution width (RBC) [Ratio] 13.0 % 11.6-14.6 [facility] Erythrocyte distribution wid th standard deviationOrdered By: Caseymanan Brewer on 10-14-2023 Erythrocyte distribution width (RBC) [Entitic vol] 45.4 fL 35.1-43.9 [facility] Hematocrit Auto (Bld) [Volum e fraction]Ordered By: Caseymanan Brewer on 10-14-2023 Hematocrit (Bld) [Volume fraction] 43.3 % 40-54 [facility] Laboratory - Chemistry and C hemistry - challengeOrdered By: Casey Brewer on 10-14-2023 Albumin/Globulin [Mass ratio] 1.1 {ratio} 0.9-2.4 [facility] ALP [Catalytic activity/Vol] 80 U/L 45-117 [facility] ALT [Catalytic activity/Vol] 47 U/L 16-61 [facility] CO2 [Moles/Vol] 32.0 mmol/L 21.0-32.0 [facility] Globulin (S) [Mass/Vol] 3.4 g/dL 2.2-4.2 [facility] Urea nitrogen/Creatinine [Mass ratio] 8.1 mg/mg 10-20 [facility] Laboratory - Hematology and Cell countsOrdered By: Casey Brewer on 10-14-2023 MCH (RBC) [Entitic mass] 32.8 pg 27.0-32.0 [facility] MCHC (RBC) [Mass/Vol] 34.4 g/dL 32-36 [facility] Platelet mean volume (Bld) [Entitic vol] 9.3 fL 6.2-12.0 [facility] Platelets (Bld) [#/Vol] 145 10*3/uL 150-450 [facility] No Panel InformationOrdered By: Casey Brewer on 10-14-2023 Estimated GFR (MDRD) Amer 63 mL/min >60 [facility] Comment on above: GFR Calc Estimated GFR (MDRD) Non-Af Amer 52 mL/min >60 [facility] Comment on above: Non- GFR Calc RBC Auto (Bld) [#/Vol]Ordere d By: Casey Brewer on 10-14-2023 RBC (Bld) [#/Vol] 4.54 10*6/uL 4.6-6.2 [facility] Serum or plasma calcium raina urement (mass/volume)Ordered By: Casey Brewer on 10-14-2023 Calcium [Mass/Vol] 9.4 mg/dL 8.5-10.1 [facility] Serum or plasma creatinine m easurement (mass/volume)Ordered By: Casey Brewer on 10-14-2023 Creatinine [Mass/Vol] 1.49 mg/dL 0.70-1.30 [facility] Comment on above: The validity of the calculated GFR & GFRAA in patients over 70 years has not been determined. Clinical correlation is essential. Serum or plasma urea nitroge n measurement (mass/volume)Ordered By: Casey Brewer on 10-14-2023 Urea nitrogen [Mass/Vol] 12 mg/dL 7-18 [facility] Thin prep Papanicolaou smear with manual screeningOrdered By: Casey Brewer on 10-14-2023 Thin prep Papanicolaou smear with manual screening 3.9 g/dL 3.2-5.0 [facility] Thin prep Papanicolaou smear with manual screening 55 U/L 15-37 [facility] Thin prep Papanicolaou smear with manual screening 3 5-15 [facility] Basophil percentageOrdered B y: Shakeel Valera on 05-16-2023 Basophil percentage 3.1 mg/dL 2.5-4.9 [facility] Chloride [Moles/Vol] 107 mmol/L 98-107 [facility] Glucose [Mass/Vol] 92 mg/dL 74-106 [facility] Potassium [Moles/Vol] 3.7 mmol/L 3.5-5.1 [facility] Sodium [Moles/Vol] 139 mmol/L 136-145 [facility] Laboratory - Chemistry and C hemistry - challengeOrdered By: Shakeel Valera on 05-16-2023 CO2 [Moles/Vol] 27.0 mmol/L 21.0-32.0 [facility] Magnesium [Mass/Vol] 1.6 mg/dL 1.6-2.6 [facility] Urea nitrogen/Creatinine [Mass ratio] 5.1 mg/mg 10-20 [facility] No Panel InformationOrdered By: Shakeel Valera on 05-16-2023 Estimated Creatinine Clearance Calc 86.90 ml/min [facility] Estimated GFR (MDRD) Amer 101 mL/min >60 [facility] Comment on above: GFR Calc Estimated GFR (MDRD) Non-Af Amer 84 mL/min >60 [facility] Comment on above: Non- GFR Calc Serum or plasma calcium raina urement (mass/volume)Ordered By: Shakeel Valera on 05-16-2023 Calcium [Mass/Vol] 7.8 mg/dL 8.5-10.1 [facility] Serum or plasma creatinine m easurement (mass/volume)Ordered By: Shakeel Valera on 05-16-2023 Creatinine [Mass/Vol] 0.98 mg/dL 0.70-1.30 [facility] Comment on above: The validity of the calculated GFR & GFRAA in patients over 70 years has not been determined. Clinical correlation is essential. Serum or plasma urea nitroge n measurement (mass/volume)Ordered By: Shakeel Valera on 05-16-2023 Urea nitrogen [Mass/Vol] 5 mg/dL 7-18 [facility] Thin prep Papanicolaou smear with manual screeningOrdered By: Shakeel Valera on 05-16-2023 Thin prep Papanicolaou smear with manual screening 5 5-15 [facility] Basophil percentageOrdered B y: Shakeel Valera on 05-15-2023 Bilirubin [Mass/Vol] 1.60 mg/dL 0.20-1.00 [facility] Comment on above: For patients on eltr ombopag therapy, use of Dimension [place] TBIL is not recommended. Protein [Mass/Vol] 5.5 g/dL 6.4-8.2 [facility] Laboratory - Chemistry and C hemistry - challengeOrdered By: Shakeel Valera on 05-15-2023 ALP [Catalytic activity/Vol] 118 U/L 45-117 [facility] ALT [Catalytic activity/Vol] 87 U/L 16-61 [facility] Globulin (S) [Mass/Vol] 2.8 g/dL 2.2-4.2 [facility] Serum or plasma albumin raina urement (mass/volume)Ordered By: Shakeel Valera on 05-15-2023 Albumin [Mass/Vol] 2.7 g/dL 3.2-5.0 [facility] Serum or plasma albumin/glob ulin mass ratioOrdered By: Shakeel Valera on 05-15-2023 Albumin/Globulin [Mass ratio] 1.0 {ratio} 0.9-2.4 [facility] Thin prep Papanicolaou smear with manual screeningOrdered By: Shakeel Valera on 05-15-2023 Thin prep Papanicolaou smear with manual screening 85 U/L 15-37 [facility] Absolute lymphocyte countOrd ered By: Lorena Bennett on 05-14-2023 Lymphocytes Auto (Unsp spec) [#/Vol] 1.52 10*3/uL 0.83-4.51 [facility] Basophil percentageOrdered B y: Lorena Bennett on 05-14-2023 Basophils/100 WBC (Bld) 0.4 % 0-1 [facility] Eosinophils/100 WBC (Bld) 1.8 % 0-5 [facility] Neutrophils (Bld) [#/Vol] 2.5 10*3/uL 2.0-7.7 [facility] Neutrophils/100 WBC (Bld) 55.9 % 47-70 [facility] WBC (Bld) [#/Vol] 4.5 10*3/uL 4.4-11.0 [facility] Blood erythrocytes count (nu mber/volume)Ordered By: Lorena Bennett on 05-14-2023 RBC (Bld) [#/Vol] 3.43 10*6/uL 4.6-6.2 [facility] Blood hemoglobin measurement (mass/volume)Ordered By: Lorena Bennett on 05-14-2023 Hemoglobin (Bld) [Mass/Vol] 11.5 g/dL 13.0-16.5 [facility] Blood lymphocytes/100 leukoc ytesOrdered By: Lorena Bennett on 05-14-2023 Lymphocytes/100 WBC (Bld) 34.1 % 19-41 [facility] Blood monocytes/100 leukocyt esOrdered By: Lorena Bennett on 05-14-2023 Monocytes/100 WBC (Bld) 7.6 % 0-10 [facility] Blood platelet adequacy dete ction by light microscopyOrdered By: Lorena Bennett on 05-14-2023 Platelets LM Ql (Bld) MOD DEC ADEQ [facility] Blood platelet mean volumeOr dered By: Lorena Bennett on 05-14-2023 Platelet mean volume (Bld) [Entitic vol] 9.8 fL 6.2-12.0 [facility] Determination of erythrocyte mean corpuscular volume (MCV)Ordered By: Lorena Bennett on 10-24-2023 MCV (RBC) [Entitic vol] 100.9 fL 80-94 [facility] Hematocrit Auto (Bld) [Volum e fraction]Ordered By: Lorena Bennett on 05-14-2023 Hematocrit (Bld) [Volume fraction] 34.6 % 40-54 [facility] Laboratory - Hematology and Cell countsOrdered By: Lorena Bennett on 05-14-2023 Erythrocyte distribution width (RBC) [Entitic vol] 46.6 fL 35.1-43.9 [facility] Erythrocyte distribution width (RBC) [Ratio] 12.7 % 11.6-14.6 [facility] Immature granulocytes/100 WBC (Bld) 0.200 % 0.0-0.9 [facility] Comment on above: IG% - Immature Granu locytes (promyelocytes, myelocytes and metamyelocytes) > 1% indicates that a LEFT SHIFT is Present. MCH (RBC) [Entitic mass] 33.5 pg 27.0-32.0 [facility] Nucleated RBC/100 WBC (Bld) [Ratio] 0 % 0-5 [facility] MCHC Auto (RBC) [Mass/Vol]Or dered By: Lorena Bennett on 05-14-2023 MCHC (RBC) [Mass/Vol] 33.2 g/dL 32-36 [facility] Platelets bldOrdered By: Angeles Bennett on 05-14-2023 Platelets (Bld) [#/Vol] 75 10*3/uL 150-450 [facility] Absolute lymphocyte countOrd ered By: Jaun Sanz on 05-13-2023 Lymphocytes Auto (Unsp spec) [#/Vol] 1.18 10*3/uL 0.83-4.51 [facility] Basophil percentageOrdered B y: Jaun Sanz on 05-13-2023 Lactate [Moles/Vol] 0.4 mmol/L 0.4-2.0 [facility] Basophil percentage 0-5 SEEN /hpf 0-5 [facility] Basophils/100 WBC (Bld) 0.5 % 0-1 [facility] Bilirubin [Mass/Vol] 4.20 mg/dL 0.20-1.00 [facility] Comment on above: For patients on eltr ombopag therapy, use of Dimension [place] TBIL is not recommended. Chloride [Moles/Vol] 101 mmol/L 98-107 [facility] Eosinophils/100 WBC (Bld) 0.3 % 0-5 [facility] Glucose [Mass/Vol] 129 mg/dL 74-106 [facility] Comment on above: Fasting Glucose resu lt greater than or equal to 126 mg/dL suggests DIABETES MELLITUS per A.D.A. criteria. Neutrophils (Bld) [#/Vol] 4.7 10*3/uL 2.0-7.7 [facility] Neutrophils/100 WBC (Bld) 72.9 % 47-70 [facility] Potassium [Moles/Vol] 4.2 mmol/L 3.5-5.1 [facility] Comment on above: Moderate Hemolysis, Result may be falsely increased. Protein [Mass/Vol] 8.3 g/dL 6.4-8.2 [facility] Sodium [Moles/Vol] 138 mmol/L 136-145 [facility] WBC (Bld) [#/Vol] 6.4 10*3/uL 4.4-11.0 [facility] Bilirubin Test strip Ql (U)O rdered By: Jaun Sanz on 05-13-2023 Bilirubin Ql (U) 3 mg/dL Negative [facility] Comment on above: COLOR OF URINE MAY A FFECT DIPSTICK RESULTS. Blood erythrocytes count (nu mber/volume)Ordered By: Jaun Sanz on 05-13-2023 RBC (Bld) [#/Vol] 4.93 10*6/uL 4.6-6.2 [facility] Blood hemoglobin measurement (mass/volume)Ordered By: Jaun Sanz on 05-13-2023 Hemoglobin (Bld) [Mass/Vol] 16.1 g/dL 13.0-16.5 [facility] Blood lymphocytes/100 leukoc ytesOrdered By: Jaun Sanz on 05-13-2023 Lymphocytes/100 WBC (Bld) 18.4 % 19-41 [facility] Blood monocytes/100 leukocyt esOrdered By: Jaun Sanz on 05-13-2023 Monocytes/100 WBC (Bld) 7.6 % 0-10 [facility] Blood platelet mean volumeOr dered By: Jaun Sanz on 05-13-2023 Platelet mean volume (Bld) [Entitic vol] 9.9 fL 6.2-12.0 [facility] Determination of erythrocyte mean corpuscular volume (MCV)Ordered By: Jaun Sanz on 05-13-2023 MCV (RBC) [Entitic vol] 97.0 fL 80-94 [facility] Hematocrit Auto (Bld) [Volum e fraction]Ordered By: Jaun Sanz on 05-13-2023 Hematocrit (Bld) [Volume fraction] 47.8 % 40-54 [facility] Hyaline casts LM.LPF (Urine sed) [#/Area]Ordered By: Jaun Sanz on 05-13-2023 Hyaline casts (Urine sed) [#/Area] /[LPF] 0-5 [facility] Ketones Test strip Ql (U)Ord ered By: Jaun Sanz on 05-13-2023 Ketones Ql (U) 15 mg/dl Negative [facility] Laboratory - Chemistry and C hemistry - challengeOrdered By: Jaun Sanz on 05-13-2023 ALP [Catalytic activity/Vol] 207 U/L 45-117 [facility] ALT [Catalytic activity/Vol] 197 U/L 16-61 [facility] CO2 [Moles/Vol] 23.0 mmol/L 21.0-32.0 [facility] Globulin (S) [Mass/Vol] 4.2 g/dL 2.2-4.2 [facility] Lipase [Catalytic activity/Vol] 56 U/L 13-75 [facility] Comment on above: Please note:LIPASE r evised reference range effective 22. New Lipase methodology. Expected to produce lower values than the previous assay method. NEW Reference Range: 13 - 75 U/L Urea nitrogen/Creatinine [Mass ratio] 5.8 mg/mg 10-20 [facility] Laboratory - Hematology and Cell countsOrdered By: Jaun Sanz on 05-13-2023 Erythrocyte distribution width (RBC) [Entitic vol] 44.6 fL 35.1-43.9 [facility] Erythrocyte distribution width (RBC) [Ratio] 12.4 % 11.6-14.6 [facility] Immature granulocytes/100 WBC (Bld) 0.300 % 0.0-0.9 [facility] Comment on above: IG% - Immature Granu locytes (promyelocytes, myelocytes and metamyelocytes) > 1% indicates that a LEFT SHIFT is Present. MCH (RBC) [Entitic mass] 32.7 pg 27.0-32.0 [facility] Nucleated RBC/100 WBC (Bld) [Ratio] 0 % 0-5 [facility] MCHC Auto (RBC) [Mass/Vol]Or dered By: Jaun Sanz on 05-13-2023 MCHC (RBC) [Mass/Vol] 33.7 g/dL 32-36 [facility] Mucus LM Ql (Urine sed)Order ed By: Jaun Sanz on 05-13-2023 Mucus Ql (Urine sed) 0 SEEN /hpf [facility] Nitrite Test strip Ql (U)Ord ered By: Jaun Sanz on 05-13-2023 Nitrite Ql (U) Negative Negative [facility] No Panel InformationOrdered By: Jaun Sanz on 05-13-2023 Estimated Creatinine Clearance Calc 45.06 ml/min [facility] Estimated GFR (MDRD) Amer 48 mL/min >60 [facility] Comment on above: GFR Calc Estimated GFR (MDRD) Non-Af Amer 39 mL/min >60 [facility] Comment on above: Non- GFR Calc Ethyl Alcohol Level < 3.0 mg/dL [facility] Comment on above: The serum:whole bloo d ethanol ratio is approximately 1.14and varies slightly with hematocrit. Medical Alcohol reference interval and critical value innon-tolerant individuals; 50 - 100 Impairment 100 Intoxication 100 - 250 Severe Poisoning 250 - 400 Deep/possible fatal coma Platelets bldOrdered By: Mary Alice Sanz on 05-13-2023 Platelets (Bld) [#/Vol] 111 10*3/uL 150-450 [facility] Protein Test strip Ql (U)Ord ered By: Jaun Sanz on 05-13-2023 Protein Ql (U) 100 mg/dl Negative [facility] Serum or plasma albumin raina urement (mass/volume)Ordered By: Jaun Sanz on 05-13-2023 Albumin [Mass/Vol] 4.1 g/dL 3.2-5.0 [facility] Serum or plasma albumin/glob ulin mass ratioOrdered By: Jaun Sanz on 05-13-2023 Albumin/Globulin [Mass ratio] 1.0 {ratio} 0.9-2.4 [facility] Serum or plasma calcium raina urement (mass/volume)Ordered By: Jaun Sanz on 05-13-2023 Calcium [Mass/Vol] 9.2 mg/dL 8.5-10.1 [facility] Serum or plasma creatinine m easurement (mass/volume)Ordered By: Jaun Sanz on 05-13-2023 Creatinine [Mass/Vol] 1.89 mg/dL 0.70-1.30 [facility] Comment on above: The validity of the calculated GFR & GFRAA in patients over 70 years has not been determined. Clinical correlation is essential. Serum or plasma urea nitroge n measurement (mass/volume)Ordered By: Jaun Sanz on 05-13-2023 Urea nitrogen [Mass/Vol] 11 mg/dL 7-18 [facility] Squamous epithelial cells de tection in urine sediment by light microscopyOrdered By: Jaun Sanz on 05-13-2023 Epithelial cells.squamous LM Ql (Urine sed) 0 SEEN /hpf 0-5 [facility] Stool enteric pathogen panel by probe and target amplification methodOrdered By: Lorena Bennett on 05-13-2023 Gastrointestinal pathogens panel ABBY+probe (Stl) [facility] Thin prep Papanicolaou smear with manual screeningOrdered By: Jaun Sanz on 05-13-2023 Thin prep Papanicolaou smear with manual screening 255 U/L 15-37 [facility] Comment on above: Moderate Hemolysis, Result may be falsely increased. Thin prep Papanicolaou smear with manual screening 14 5-15 [facility] Urine blood detectionOrdered By: Jaun Sanz on 05-13-2023 RBC Ql (U) 10 /ul Negative [facility] RBC Ql (U) 0 SEEN /hpf 0-5 [facility] Urine clarityOrdered By: Mary Alice Sanz on 05-13-2023 Clarity (U) Clear Clear [facility] Urine color determinationOrd ered By: Jaun Sanz on 05-13-2023 Color (U) SEE COMMENT BELOW Yellow [facility] Comment on above: Visual Urine Color: ORANGE Urine glucose detectionOrder ed By: Jaun Sanz on 05-13-2023 Glucose Ql (U) Normal mg/dl Normal [facility] Urine leukocyte esterase det ection by dipstickOrdered By: Jaun Sanz on 05-13-2023 Leukocyte esterase Test strip Ql (U) 25 /ul Negative [facility] Urine pHOrdered By: Jaun scott on 05-13-2023 pH (U) 5.0 [pH] 5.0 - 8.0 [facility] Urine sediment bacteria coun t by microscopy (number/high power field)Ordered By: Jaun Sanz on 05-13-2023 Bacteria LM.HPF (Urine sed) [#/Area] 0 /[HPF] None Seen [facility] Urine specific gravity measu rementOrdered By: Jaun Sanz on 05-13-2023 Specific gravity (U) [Rel density] 1.020 1.002-1.03 0 [facility] Urobilinogen Auto test strip Ql (U)Ordered By: Jaun Sanz on 05-13-2023 Urobilinogen Ql (U) 8 mg/dl Normal [facility] Absolute lymphocyte countOrd ered By: Casey Brewer on 04-01-2023 Lymphocytes Auto (Unsp spec) [#/Vol] 1.28 10*3/uL 0.83-4.51 [facility] Basophil percentageOrdered B y: Casey Brewer on 04-01-2023 Basophils/100 WBC (Bld) 0.2 % 0-1 [facility] Bilirubin [Mass/Vol] 1.70 mg/dL 0.20-1.00 [facility] Comment on above: For patients on eltr ombopag therapy, use of Dimension [place] TBIL is not recommended. Chloride [Moles/Vol] 100 mmol/L 98-107 [facility] Eosinophils/100 WBC (Bld) 0.8 % 0-5 [facility] Glucose [Mass/Vol] 93 mg/dL 74-106 [facility] Neutrophils (Bld) [#/Vol] 4.5 10*3/uL 2.0-7.7 [facility] Neutrophils/100 WBC (Bld) 71.3 % 47-70 [facility] Potassium [Moles/Vol] 3.5 mmol/L 3.5-5.1 [facility] Protein [Mass/Vol] 7.5 g/dL 6.4-8.2 [facility] Sodium [Moles/Vol] 136 mmol/L 136-145 [facility] WBC (Bld) [#/Vol] 6.3 10*3/uL 4.4-11.0 [facility] Blood erythrocytes count (nu mber/volume)Ordered By: Casey Brewer on 04-01-2023 RBC (Bld) [#/Vol] 4.10 10*6/uL 4.6-6.2 [facility] Blood hemoglobin measurement (mass/volume)Ordered By: Casey Brewer on 04-01-2023 Hemoglobin (Bld) [Mass/Vol] 13.3 g/dL 13.0-16.5 [facility] Blood lymphocytes/100 leukoc ytesOrdered By: Caseymanan Brewer on 04-01-2023 Lymphocytes/100 WBC (Bld) 20.3 % 19-41 [facility] Blood monocytes/100 leukocyt esOrdered By: Caseymanan Brewer on 04-01-2023 Monocytes/100 WBC (Bld) 7.1 % 0-10 [facility] Blood platelet mean volumeOr dered By: Casey Brewer on 04-01-2023 Platelet mean volume (Bld) [Entitic vol] 9.5 fL 6.2-12.0 [facility] Determination of erythrocyte mean corpuscular volume (MCV)Ordered By: Casey Brewer on 04-01-2023 MCV (RBC) [Entitic vol] 98.8 fL 80-94 [facility] Hematocrit Auto (Bld) [Volum e fraction]Ordered By: Caseymanan Brewer on 04-01-2023 Hematocrit (Bld) [Volume fraction] 40.5 % 40-54 [facility] Laboratory - Chemistry and C hemistry - challengeOrdered By: Casey Brewer on 04-01-2023 ALP [Catalytic activity/Vol] 146 U/L 45-117 [facility] ALT [Catalytic activity/Vol] 54 U/L 16-61 [facility] CO2 [Moles/Vol] 27.0 mmol/L 21.0-32.0 [facility] Globulin (S) [Mass/Vol] 3.7 g/dL 2.2-4.2 [facility] Urea nitrogen/Creatinine [Mass ratio] 8.3 mg/mg 10-20 [facility] Laboratory - Hematology and Cell countsOrdered By: Casey Brewer on 04-01-2023 Erythrocyte distribution width (RBC) [Entitic vol] 46.5 fL 35.1-43.9 [facility] Erythrocyte distribution width (RBC) [Ratio] 12.8 % 11.6-14.6 [facility] Immature granulocytes/100 WBC (Bld) 0.300 % 0.0-0.9 [facility] Comment on above: IG% - Immature Granu locytes (promyelocytes, myelocytes and metamyelocytes) > 1% indicates that a LEFT SHIFT is Present. MCH (RBC) [Entitic mass] 32.4 pg 27.0-32.0 [facility] Nucleated RBC/100 WBC (Bld) [Ratio] 0 % 0-5 [facility] MCHC Auto (RBC) [Mass/Vol]Or dered By: Casey Brewer on 04-01-2023 MCHC (RBC) [Mass/Vol] 32.8 g/dL 32-36 [facility] No Panel InformationOrdered By: Casey Brewer on 04-01-2023 Estimated GFR (MDRD) Amer 72 mL/min >60 [facility] Comment on above: GFR Calc Estimated GFR (MDRD) Non-Af Amer 60 mL/min >60 [facility] Comment on above: Non- GFR Calc Thyroid Stimulating Hormone (TSH) 1.08 uIU/mL 0.358-3.74 [facility] Platelets bldOrdered By: Valdemar Brewer on 04-01-2023 Platelets (Bld) [#/Vol] 118 10*3/uL 150-450 [facility] Serum or plasma albumin raina urement (mass/volume)Ordered By: Casey Brewer on 04-01-2023 Albumin [Mass/Vol] 3.8 g/dL 3.2-5.0 [facility] Serum or plasma albumin/glob ulin mass ratioOrdered By: Casey Brewer on 04-01-2023 Albumin/Globulin [Mass ratio] 1.0 {ratio} 0.9-2.4 [facility] Serum or plasma calcium raina urement (mass/volume)Ordered By: Casey Brewer on 04-01-2023 Calcium [Mass/Vol] 9.1 mg/dL 8.5-10.1 [facility] Serum or plasma creatinine m easurement (mass/volume)Ordered By: Casey Brewer on 04-01-2023 Creatinine [Mass/Vol] 1.32 mg/dL 0.70-1.30 [facility] Comment on above: The validity of the calculated GFR & GFRAA in patients over 70 years has not been determined. Clinical correlation is essential. Serum or plasma urea nitroge n measurement (mass/volume)Ordered By: Casey Brewer on 04-01-2023 Urea nitrogen [Mass/Vol] 11 mg/dL 7-18 [facility] Thin prep Papanicolaou smear with manual screeningOrdered By: Casey Brewer on 04-01-2023 Thin prep Papanicolaou smear with manual screening 52 U/L 15-37 [facility] Thin prep Papanicolaou smear with manual screening 9 5-15 [facility] CBC W Auto Differential pane l (Bld)on 01-22-2023 Basophils (Bld) [#/Vol] 0.03 10*3/uL <0.11 k/uL [facility] Basophils/100 WBC (Bld) 0.4 % [facility] Differential cell count method Nom (Bld) Auto [facility] Eosinophils (Bld) [#/Vol] 0.07 10*3/uL <0.46 k/uL [facility] Eosinophils/100 WBC (Bld) 1.0 % [facility] Erythrocyte distribution width (RBC) [Ratio] 13.2 % 11.5 - 15.0 % [facility] Hematocrit (Bld) [Volume fraction] 38.6 % Low 39.0 - 51.0 % [facility] Hemoglobin (Bld) [Mass/Vol] 13.0 g/dL 13.0 - 17.0 g/dL [facility] Immature granulocytes (Bld) [#/Vol] <0.10 k/uL [facility] Immature granulocytes/100 WBC (Bld) 0.3 % [facility] Lymphocytes (Bld) [#/Vol] 1.33 10*3/uL 1.00 - 4.00 k/uL [facility] Lymphocytes/100 WBC (Bld) 19.3 % [facility] MCH (RBC) [Entitic mass] 32.3 pg 26.0 - 34.0 pg [facility] MCHC (RBC) [Mass/Vol] 33.7 g/dL 30.5 - 36.0 g/dL [facility] MCV (RBC) [Entitic vol] 95.8 fL 80.0 - 100.0 fL [facility] Monocytes (Bld) [#/Vol] 0.63 10*3/uL <0.87 k/uL [facility] Monocytes/100 WBC (Bld) 9.2 % [facility] Neutrophils (Bld) [#/Vol] 4.80 10*3/uL 1.45 - 7.50 k/uL [facility] Neutrophils/100 WBC (Bld) 69.8 % [facility] Nucleated RBC (Bld) [#/Vol] <0.01 k/uL [facility] Nucleated RBC/100 WBC (Bld) [Ratio] 0.0 /100 WBC [facility] Platelet mean volume (Bld) [Entitic vol] 10.1 fL 9.0 - 12.7 fL [facility] Platelets (Bld) [#/Vol] 146 10*3/uL Low 150 - 400 k/uL [facility] RBC (Bld) [#/Vol] 4.03 10*6/uL Low 4.20 - 6.00 m/uL [facility] WBC (Bld) [#/Vol] 6.88 10*3/uL 3.70 - 11.00 k/uL [facility] Hepatic function 2000 panelo n 01-22-2023 Albumin [Mass/Vol] 4.4 g/dL 3.9 - 4.9 g/dL [facility] ALP [Catalytic activity/Vol] 136 U/L High 38 - 113 U[facility] ALT [Catalytic activity/Vol] 112 U/L High 10 - 54 U/L [facility] AST [Catalytic activity/Vol] 169 U/L High 14 - 40 U/L [facility] Bilirubin [Mass/Vol] 0.6 mg/dL 0.2 - 1 .3 mg/dL [facility] Bilirubin.conjugated [Mass/Vol] 0.2 mg/dL High <0.2 mg/dL [facility] Protein [Mass/Vol] 6.6 g/dL 6.3 - 8.0 g/dL [facility] MAGNESIUM BLDon 01-22-2023 Magnesium [Mass/Vol] 1.5 mg/dL Low 1.7 - 2 .3 mg/dL [facility] Absolute lymphocyte countOrd ered By: Abdoulaye Wesley on 01-02-2023 Lymphocytes Auto (Unsp spec) [#/Vol] 0.96 10*3/uL 0.83-4.51 [facility] Basophil percentageOrdered B y: Abdoulaye Wesley on 01-02-2023 Basophils/100 WBC (Bld) 0.7 % 0-1 [facility] Chloride [Moles/Vol] 100 mmol/L 98-107 [facility] Eosinophils/100 WBC (Bld) 0.9 % 0-5 [facility] Glucose [Mass/Vol] 110 mg/dL 74-106 [facility] Comment on above: Fasting Glucose resu lt from 100 to 125 mg/dL suggests IMPAIRED HOMEOSTASIS per A.D.A. criteria. Neutrophils (Bld) [#/Vol] 2.9 10*3/uL 2.0-7.7 [facility] Neutrophils/100 WBC (Bld) 68.4 % 47-70 [facility] Potassium [Moles/Vol] 4.6 mmol/L 3.5-5.1 [facility] Comment on above: Moderate Hemolysis, Result may be falsely increased. Sodium [Moles/Vol] 136 mmol/L 136-145 [facility] WBC (Bld) [#/Vol] 4.2 10*3/uL 4.4-11.0 [facility] Blood erythrocytes count (nu mber/volume)Ordered By: Abdoulaye Wesley on 01-02-2023 RBC (Bld) [#/Vol] 4.85 10*6/uL 4.6-6.2 [facility] Blood hemoglobin measurement (mass/volume)Ordered By: Abdoulaye Wesley on 01-02-2023 Hemoglobin (Bld) [Mass/Vol] 15.7 g/dL 13.0-16.5 [facility] Blood lymphocytes/100 leukoc ytesOrdered By: Abdoulaye Wesley on 01-02-2023 Lymphocytes/100 WBC (Bld) 22.7 % 19-41 [facility] Blood monocytes/100 leukocyt esOrdered By: Abdoulaye Wesley on 01-02-2023 Monocytes/100 WBC (Bld) 7.3 % 0-10 [facility] Blood platelet mean volumeOr dered By: Abdoulaye Wesley on 01-02-2023 Platelet mean volume (Bld) [Entitic vol] 9.3 fL 6.2-12.0 [facility] Determination of erythrocyte mean corpuscular volume (MCV)Ordered By: Abdoulaye Wesley on 01-02-2023 MCV (RBC) [Entitic vol] 93.6 fL 80-94 [facility] Hematocrit Auto (Bld) [Volum e fraction]Ordered By: Abdoulaye Wesley on 01-02-2023 Hematocrit (Bld) [Volume fraction] 45.4 % 40-54 [facility] Laboratory - Chemistry and C hemistry - challengeOrdered By: Abdoulaye Wesley on 01-02-2023 CO2 [Moles/Vol] 28.0 mmol/L 21.0-32.0 [facility] Urea nitrogen/Creatinine [Mass ratio] 7.8 mg/mg 10-20 [facility] Laboratory - Hematology and Cell countsOrdered By: Abdoulaye Wesley on 01-02-2023 Erythrocyte distribution width (RBC) [Entitic vol] 42.9 fL 35.1-43.9 [facility] Erythrocyte distribution width (RBC) [Ratio] 12.5 % 11.6-14.6 [facility] Immature granulocytes/100 WBC (Bld) 0.000 % 0.0-0.9 [facility] Comment on above: IG% - Immature Granu locytes (promyelocytes, myelocytes and metamyelocytes) > 1% indicates that a LEFT SHIFT is Present. MCH (RBC) [Entitic mass] 32.4 pg 27.0-32.0 [facility] Nucleated RBC/100 WBC (Bld) [Ratio] 0 % 0-5 [facility] MCHC Auto (RBC) [Mass/Vol]Or dered By: Abdoulaye Wesley on 01-02-2023 MCHC (RBC) [Mass/Vol] 34.6 g/dL 32-36 [facility] No Panel InformationOrdered By: Abdoulaye Wesley on 01-02-2023 Estimated Creatinine Clearance Calc 60.40 ml/min [facility] Estimated GFR (MDRD) Amer 67 mL/min >60 [facility] Comment on above: GFR Calc Estimated GFR (MDRD) Non-Af Amer 55 mL/min >60 [facility] Comment on above: Non- GFR Calc Troponin I High Sensitivity 9 pg/mL 3.0-78.0 [facility] Comment on above: Please Note: New Michelle t Units and Gender Specific Reference Ranges. For more information see Policy Stat Procedure [place] High Sensitivity Troponin (TNIH) and attachments. Platelets bldOrdered By: Jack Wesley on 01-02-2023 Platelets (Bld) [#/Vol] 117 10*3/uL 150-450 [facility] Serum or plasma calcium raina urement (mass/volume)Ordered By: Abdoulaye Wesley on 01-02-2023 Calcium [Mass/Vol] 8.9 mg/dL 8.5-10.1 [facility] Serum or plasma creatinine m easurement (mass/volume)Ordered By: Abdoulaye Wesley on 01-02-2023 Creatinine [Mass/Vol] 1.41 mg/dL 0.70-1.30 [facility] Comment on above: The validity of the calculated GFR & GFRAA in patients over 70 years has not been determined. Clinical correlation is essential. Serum or plasma urea nitroge n measurement (mass/volume)Ordered By: Abdoulaye Wesley on 01-02-2023 Urea nitrogen [Mass/Vol] 11 mg/dL 7-18 [facility] Thin prep Papanicolaou smear with manual screeningOrdered By: Abdoulaye Wesley on 01-02-2023 Thin prep Papanicolaou smear with manual screening 8 - [facility] CBC W Auto Differential pane l (Bld)on 11-05-2022 Basophils (Bld) [#/Vol] <0.11 k/uL [facility] Basophils/100 WBC (Bld) 0.3 % [facility] Differential cell count method Nom (Bld) Auto [facility] Eosinophils (Bld) [#/Vol] 0.11 10*3/uL <0.46 k/uL [facility] Eosinophils/100 WBC (Bld) 1.7 % [facility] Erythrocyte distribution width (RBC) [Ratio] 12.1 % 11.5 - 15.0 % [facility] Hematocrit (Bld) [Volume fraction] 39.4 % 39.0 - 51.0 % [facility] Hemoglobin (Bld) [Mass/Vol] 14.4 g/dL 13.0 - 17.0 g/dL [facility] Immature granulocytes (Bld) [#/Vol] <0.10 k/uL [facility] Immature granulocytes/100 WBC (Bld) 0.2 % [facility] Lymphocytes (Bld) [#/Vol] 1.50 10*3/uL 1.00 - 4.00 k/uL [facility] Lymphocytes/100 WBC (Bld) 23.0 % [facility] MCH (RBC) [Entitic mass] 33.3 pg 26.0 - 34.0 pg [facility] MCHC (RBC) [Mass/Vol] 36.5 g/dL High 30.5 - 36.0 g/dL [facility] MCV (RBC) [Entitic vol] 91.2 fL 80.0 - 100.0 fL [facility] Monocytes (Bld) [#/Vol] 0.53 10*3/uL <0.87 k/uL [facility] Monocytes/100 WBC (Bld) 8.1 % [facility] Neutrophils (Bld) [#/Vol] 4.35 10*3/uL 1.45 - 7.50 k/uL [facility] Neutrophils/100 WBC (Bld) 66.7 % [facility] Nucleated RBC (Bld) [#/Vol] <0.01 k/uL [facility] Nucleated RBC/100 WBC (Bld) [Ratio] 0.0 /100 WBC [facility] Platelet mean volume (Bld) [Entitic vol] 10.0 fL 9.0 - 12.7 fL [facility] Platelets (Bld) [#/Vol] 141 10*3/uL Low 150 - 400 k/uL [facility] RBC (Bld) [#/Vol] 4.32 10*6/uL 4.20 - 6.00 m/uL [facility] WBC (Bld) [#/Vol] 6.52 10*3/uL 3.70 - 11.00 k/uL [facility] HEP C AB IA W/CONF SCRNon HCV Ab Ql (S) Negative Negative [facility] XR FOOT GENERAL 3V AP/LAT/OB L RIGHTon 06-25-2022 [facility] XR Foot - right AP and Later al and obliqueon 06-25-2022 IMPRESSION: No radiographic evidence of acute osseous injury Pastry Cook: [facility] Transcribe Date/Time: Jun 25 2022 6:19P Dictated [...] Joint spaces preserved. DIVISION OF RADIOLOGY Provider, [facility] - 06/25/2022 * * *Final [...] No radiographic evidence of acute osseous injury Pastry Cook: [facility] Transcribe Date/Time: Jun 25 2022 6:19P Dictated by : OMID RENEE MD This examination was interpreted and the report reviewed and electronically signed by: OMID RENEE MD on Jun 25 2022 6:20PM EST [facility] Radiology Study observation (narrative) [facility] XR Foot - right AP and Later al and obliqueOrdered By: Ccf Provider on 06-25-2022 [facility] XR CHEST 2V FRONTAL/LATon [facility] XR Chest PA and Lateralon IMPRESSION: Within normal limits. No acute radiographic abnormality. Pastry Cook: JOHN Transcribe Date/Time: Feb 19 2022 3:43P [...] spine. ZZZ_DO_NOT _USE_DIVIS ION OF RADIOLOGY Provider, [facility] - 02/19/2022 * * *Final [...] Within normal limits. No acute radiographic abnormality. Pastry Cook: JOHN Transcribe Date/Time: Feb 19 2022 3:43P Dictated by : EITAN SCHWARTZ MD This examination was interpreted and the report reviewed and electronically signed by: EITAN SCHWARTZ MD on Feb 19 2022 3:44PM EST [facility] Radiology Study observation (narrative) [facility] XR Chest PA and LateralOrder ed By: Ccf Provider on 02-19-2022 [facility] Absolute lymphocyte counton 11-08-2021 Lymphocytes Auto (Unsp spec) [#/Vol] 2.13 10*3/uL 0.83-4.51 [facility] Work Phone: Basophil percentageon 2021 Basophil percentage 0 SEEN /hpf [facility] Work Phone: Basophils/100 WBC (Bld) 0.4 % 0-1 [facility] Work Phone: Chloride [Moles/Vol] 103 mmol/L 98-107 [facility] Work Phone: Eosinophils/100 WBC (Bld) 1.5 % 0-5 [facility] Work Phone: Glucose [Mass/Vol] 98 mg/dL 74-106 [facility] Work Phone: Neutrophils (Bld) [#/Vol] 5.2 10*3/uL 2.0-7.7 [facility] Work Phone: Neutrophils/100 WBC (Bld) 64.3 % 47-70 [facility] Work Phone: Potassium [Moles/Vol] 5.1 mmol/L 3.5-5.1 [facility] Work Phone: Comment on above: Slight Hemolysis, Re sult may be falsely increased. Sodium [Moles/Vol] 135 mmol/L 136-145 [facility] Work Phone: WBC (Bld) [#/Vol] 8.1 10*3/uL 4.4-11.0 [facility] Work Phone: Bilirubin Test strip Ql (U)o n 11-08-2021 Bilirubin Ql (U) Negative Negative [facility] Work Phone: Blood erythrocytes count (nu mber/volume)on 11-08-2021 RBC (Bld) [#/Vol] 4.39 10*6/uL 4.6-6.2 [facility] Work Phone: [phone] Blood hemoglobin measurement (mass/volume)on 11-08-2021 Hemoglobin (Bld) [Mass/Vol] 14.8 g/dL 13.0-16.5 [facility] Work Phone: Blood lymphocytes/100 leukoc yteson 11-08-2021 Lymphocytes/100 WBC (Bld) 26.5 % 19-41 [facility] Work Phone: Blood monocytes/100 leukocyt eson 11-08-2021 Monocytes/100 WBC (Bld) 7.2 % 0-10 [facility] Work Phone: [phone] Blood platelet mean volumeon 11-08-2021 Platelet mean volume (Bld) [Entitic vol] 9.4 fL 6.2-12.0 [facility] Work Phone: Determination of erythrocyte mean corpuscular volume (MCV)on 11-08-2021 MCV (RBC) [Entitic vol] 95.2 fL 80-94 [facility] Work Phone: [phone] Hematocrit Auto (Bld) [Volum e fraction]on 11-08-2021 Hematocrit (Bld) [Volume fraction] 41.8 % 40-54 [facility] Work Phone: [phone] Ketones Test strip Ql (U)on 11-08-2021 Ketones Ql (U) Negative Negative [facility] Work Phone: Laboratory - Chemistry and C hemistry - challengeon 11-08-2021 CO2 [Moles/Vol] 26.0 mmol/L 21.0-32.0 [facility] Work Phone: [phone] Urea nitrogen/Creatinine [Mass ratio] 9.0 mg/mg 10-20 [facility] Work Phone: [phone] Laboratory - Hematology and Cell countson 11-08-2021 Erythrocyte distribution width (RBC) [Entitic vol] 41.9 fL 35.1-43.9 [facility] Work Phone: Erythrocyte distribution width (RBC) [Ratio] 12.0 % 11.6-14.6 [facility] Work Phone: Immature granulocytes/100 WBC (Bld) 0.100 % 0.0-0.9 [facility] Work Phone: Comment on above: IG% - Immature Granu locytes (promyelocytes, myelocytes and metamyelocytes) > 1% indicates that a LEFT SHIFT is Present. MCH (RBC) [Entitic mass] 33.7 pg 27.0-32.0 [facility] Work Phone: Nucleated RBC/100 WBC (Bld) [Ratio] 0 % 0-5 [facility] Work Phone: MCHC Auto (RBC) [Mass/Vol]on 11-08-2021 MCHC (RBC) [Mass/Vol] 35.4 g/dL 32-36 [facility] Work Phone: Mucus LM Ql (Urine sed)on Mucus Ql (Urine sed) 0 SEEN /hpf [facility] Work Phone: Nitrite Test strip Ql (U)on 11-08-2021 Nitrite Ql (U) Negative Negative [facility] Work Phone: No Panel Informationon 11-08 Estimated Creatinine Clearance Calc 55.89 ml/min [facility] Work Phone: Estimated GFR (MDRD) Amer 60 mL/min >60 [facility] Work Phone: Comment on above: GFR Calc Estimated GFR (MDRD) Non-Af Amer 49 mL/min >60 [facility] Work Phone: Comment on above: Non- GFR Calc Platelets bldon 11-08-2021 Platelets (Bld) [#/Vol] 142 10*3/uL 150-450 [facility] Work Phone: Protein Test strip Ql (U)on 11-08-2021 Protein Ql (U) Negative Negative [facility] Work Phone: Serum or plasma calcium raina urement (mass/volume)on 11-08-2021 Calcium [Mass/Vol] 8.5 mg/dL 8.5-10.1 [facility] Work Phone: Serum or plasma creatinine m easurement (mass/volume)on 11-08-2021 Creatinine [Mass/Vol] 1.56 mg/dL 0.70-1.30 [facility] Work Phone: Comment on above: The validity of the calculated GFR & GFRAA in patients over 70 years has not been determined. Clinical correlation is essential. Serum or plasma urea nitroge n measurement (mass/volume)on 11-08-2021 Urea nitrogen [Mass/Vol] 14 mg/dL 7-18 [facility] Work Phone: Squamous epithelial cells de tection in urine sediment by light microscopyon 11-08-2021 Epithelial cells.squamous LM Ql (Urine sed) 0 SEEN /hpf [facility] Work Phone: Thin prep Papanicolaou smear with manual screeningon 11-08-2021 Thin prep Papanicolaou smear with manual screening 6 5-15 [facility] Work Phone: Urine blood detectionon 10-21 RBC Ql (U) Negative Negative [facility] Work Phone: RBC Ql (U) 0 SEEN /hpf [facility] Work Phone: Urine clarityon 11-08-2021 Clarity (U) Clear Clear [facility] Work Phone: Urine color determinationon 11-08-2021 Color (U) Yellow Yellow [facility] Work Phone: Urine glucose detectionon Glucose Ql (U) Normal mg/dl Normal [facility] Work Phone: Urine leukocyte esterase det ection by dipstickon 11-08-2021 Leukocyte esterase Test strip Ql (U) Negative Negative [facility] Work Phone: Urine pHon 11-08-2021 pH (U) 5.0 [pH] [facility] Work Phone: Urine sediment bacteria coun t by microscopy (number/high power field)on 11-08-2021 Bacteria LM.HPF (Urine sed) [#/Area] 0 /[HPF] None Seen [facility] Work Phone: Urine specific gravity measu rementon 11-08-2021 Specific gravity (U) [Rel density] 1.005 [facility] Work Phone: Urobilinogen Auto test strip Ql (U)on 11-08-2021 Urobilinogen Ql (U) Normal mg/dl Normal [facility] Work Phone: CNCOon 09-26-2017 Erythrocyte distribution width Auto Ratio (RBC) Letter TextBethany MontalvoCleveland Clinic [facility] [address] [address] [place], [place] [address]Pviwy: [phone]# [id number] Rolando Uocdeny68[address] [facility] [address]Yuvh Mr. Montalvo:We have been unsuccessful in reaching you by phone. Please call our office [phone] for further instructions. We have been trying to reach youregarding testing results and medication changes. Thank you.Sincerely,Cardiology Staff Normal [facility] HOSP 09-18-2017 [facility] Medical Advic e (AGCARDWST) ----BETHANY MONTALVO ([id number]) 1965 MDate Time Provider Department09/18/17 CANDELARIO ARELLANO During your visit today, we recorded the following information about you:Candelario Arellano MD 09/19/2017 9:05 AM SignedDoes he have heart rates?Lon Cancino, YONI, RN 09/19/2017 9:06 AM SignedSent via Naked.Tarun Cuello RN, RN 09/20/2017 11:05 AM SignedLeft [...] Status:Closed by TARUN CUELLO on 09/20/17 Normal [facility] CNOVon 09-10-2017 CNOV Office Visit (AGCARDWST) ----BETHANY MONTALVO ([id number]) 1965 MDate Time Provider Department09/10/17 3:30 PM [...] - N/ABeta mandy for ASHD with prior TN or prior LVEFANDlt;40 (NQF 0070) - N/ABeta [...] with treatment plan.This note was generated using InCast voice recognition system, and there may besome [...] edema. Pulses are intact and symmetrical.Records from [facility] were reviewed. Stress test showed no evidence ofischemia. Ejection fraction was normal.Echocardiogram showed normal ejection fraction. There was no evidence of acutecoronary syndrome.Electronically Signed:Candelario Arellano MDBanner [facility]well Medical Centeruary 2017 3:53 PMCC: Marjorie Cain [...] programs in your area.Referring Provider: CANDELARIO ARELLANO [[id number]]Allergies As of Date: 09/10/2017 Noted Allergy ReactionSUDAFED (PSEUDOEPHEDRINE) 06/26/2016 14 - Other: See Comments Comments: Prostate infectionDate Reviewed: 09/10/2017Reviewed by: India Bhatti - Fully AssessedReason for Visit: Follow Up [171]Primary Visit Diagnosis:Essential hypertension [I10] Other Visit Diagnoses:Chest pain, unspecified type [R07.9] Hypertension, essential [I10]Order(s):LIPID PANEL BASIC [SQLIPB] Order #: [id number] FUTURE ALT/SGPT [SQALT] Order #: [id number] FUTURE CK CREATINE KINASE [SQCK] Order #: [id number] FUTURE BASIC METABOLIC PNL [SQBMP] Order #: [id number] FUTUREPrescriptions as of 09/10/2017 Sig: OMEPRAZOLE 20 [...] the following areas and commit to making chcf changes. EAT A WHOLE FOOD, PLANT BASED [...] 09/10/17 [facility] PROGRESSon 09-10-2017 PROGRESS HNO ID: [id number] thor: Candelario Garcia: (none)Author Type: PhysicianType: Progress NotesFiled: 09/10/2017 4:16 PMNote Text:PERTINENT CARDIAC HISTORYChest pain - atypicalSyncope - vasodepressorHTNHLADHERENCE TO GUIDELINESACE-I or ARB for HF with prior LVEF<40 (NQF 0081) - N/AASA or Plavix for ASHD (NQF 0067) - N/ABeta mandy for ASHD with prior TN or prior LVEF<40 (NQF 0070) - N/ABeta [...] with treatment plan.This note was generated using InCast voice recognition system, and theremay be some [...] Trace edema. Pulses are intact andsymmetrical.Records from [facility] were reviewed. Stress test showed noevidence of ischemia. Ejection fraction was normal.Echocardiogram showed normal ejection fraction. There was no evidence ofacute coronary syndrome.Electronically Signed:Candelario Arellano MDFebruary 2017 3:53 PMCC: Redd Tejeda MD [facility] Vital Signs Date Time Vital Sign Value Performing Clinician Facility 02-09-2025 14:12-0400 Body mass index (BMI) [Ratio] 30.46 kg/m2 Gary VALLECILLO Work Phone: [facility] 02-09-2025 14:12040 Body temperature 98.6 [degF] Gary Sandersongg PA Work Phone: [facility] 02-09-2025 14:12040 Body weight 96.3 kg Gary Hutton PA Work Phone: [facility] 02-09-2025 14:12040 Diastolic blood pressure 78 mm[Hg] Gary Absjgg PA Work Phone: [facility] 02-09-2025 14:120400 Heart rate 77 /min Krislyn Aberegg PA Work Phone: [facility] 02-09-2025 14:12-0400 Respiratory rate 16 /min Krislyn Aberegg PA Work Phone: [facility] 02-09-2025 14:12-0400 SaO2% (BldA) [Mass fraction] 98 % Krislyn Aberegg PA Work Phone: [facility] 02-09-2025 14:12-0400 Systolic blood pressure 122 mm[Hg] Krislyn Aberegg PA Work Phone: [facility] 09-28-2024 15:34-0400 Body mass index (BMI) [Ratio] 29.13 kg/m2 Keren Kwon DETAIL MANAGER.HOME AND FAMILY LIVING PROFESSOR Work Phone: [facility] 09-28-2024 15:34-0400 Body weight 92.08 kg Keren Kwon DETAIL MANAGER.HOME AND FAMILY LIVING PROFESSOR Work Phone: [facility] 09-28-2024 15:34-0400 Diastolic blood pressure 80 mm[Hg] Keren Kwon DETAIL MANAGER.HOME AND FAMILY LIVING PROFESSOR Work Phone: [facility] 09-28-2024 15:34-0400 Heart rate 113 /min Keren Kwon DETAIL MANAGER.HOME AND FAMILY LIVING PROFESSOR Work Phone: [facility] 09-28-2024 15:34-0400 Respiratory rate 16 /min Keren Kwon DETAIL MANAGER.HOME AND FAMILY LIVING PROFESSOR Work Phone: [facility] 09-28-2024 15:34-0400 SaO2% (BldA) [Mass fraction] 96 % Keren Kwon DETAIL MANAGER.HOME AND FAMILY LIVING PROFESSOR Work Phone: [facility] 09-28-2024 15:34-0400 Systolic blood pressure 122 mm[Hg] Keren Haagen DETAIL MANAGER.HOME AND FAMILY LIVING PROFESSOR Work Phone: [facility] 09-28-2024 12:32-0400 Body height 177.8 cm Chris Devlin DETAIL MANAGER.HOME AND FAMILY LIVING PROFESSOR, DNP Work Phone: [facility] 09-28-2024 12:32-0400 Body mass index (BMI) [Ratio] 28.84 kg/m2 Chris Devlin APRN.HOME AND FAMILY LIVING PROFESSOR, DNP Work Phone: [facility] 09-28-2024 12:32-0400 Body temperature 96.91 [degF] Chris Devlin APRN.HOME AND FAMILY LIVING PROFESSOR, DNP Work Phone: [facility] 09-28-2024 12:32-0400 Body weight 91.17 kg Chris Devlin APRN.HOME AND FAMILY LIVING PROFESSOR, DNP Work Phone: [facility] 09-28-2024 12:32-0400 Diastolic blood pressure 80 mm[Hg] Chris Devlin APRN.HOME AND FAMILY LIVING PROFESSOR, DNP Work Phone: [facility] 09-28-2024 12:32-0400 Heart rate 80 /min Chris Devlin APRN.HOME AND FAMILY LIVING PROFESSOR, DNP Work Phone: [facility] 09-28-2024 12:32-0400 Respiratory rate 18 /min Chris Devlin APRN.HOME AND FAMILY LIVING PROFESSOR, DNP Work Phone: [facility] 09-28-2024 12:32-0400 SaO2% (BldA) [Mass fraction] 94 % Chris Devlin APRN.HOME AND FAMILY LIVING PROFESSOR, DNP Work Phone: [facility] 09-28-2024 12:32-0400 Systolic blood pressure 118 mm[Hg] Chris Devlin APRN.HOME AND FAMILY LIVING PROFESSOR, DNP Work Phone: [facility] 08-31-2024 15:33-0500 Diastolic blood pressure 97 mm[Hg] Keren Kwon APRN.HOME AND FAMILY LIVING PROFESSOR Work Phone: [facility] 08-31-2024 15:33-0500 Heart rate 114 /min Keren Menchacaagen DETAIL MANAGER.HOME AND FAMILY LIVING PROFESSOR Work Phone: [facility] 08-31-2024 15:33-0500 Systolic blood pressure 153 mm[Hg] Keren Haagen DETAIL MANAGER.HOME AND FAMILY LIVING PROFESSOR Work Phone: [facility] 08-31-2024 15:25-0500 Respiratory rate 16 /min Keren Kwon APRN.HOME AND FAMILY LIVING PROFESSOR Work Phone: [facility] 08-31-2024 15:25-0500 SaO2% (BldA) [Mass fraction] 98 % Keren Haagen DETAIL MANAGER.HOME AND FAMILY LIVING PROFESSOR Work Phone: [facility] 08-24-2024 12:07-0500 Diastolic blood pressure 117 mm[Hg] Keren Haagen DETAIL MANAGER.HOME AND FAMILY LIVING PROFESSOR Work Phone: [facility] Comment on above: [facility] 08-24-2024 12:07-0500 Heart rate 132 /min Keren Haagen DETAIL MANAGER.HOME AND FAMILY LIVING PROFESSOR Work Phone: [facility] 08-24-2024 12:07-0500 Systolic blood pressure 179 mm[Hg] Keren Haagen DETAIL MANAGER.HOME AND FAMILY LIVING PROFESSOR Work Phone: [facility] Comment on above: [facility] 08-24-2024 11:27-0500 Respiratory rate 16 /min Keren Haagen DETAIL MANAGER.HOME AND FAMILY LIVING PROFESSOR Work Phone: [facility] 08-24-2024 11:27-0500 SaO2% (BldA) [Mass fraction] 97 % Keren Haagen DETAIL MANAGER.HOME AND FAMILY LIVING PROFESSOR Work Phone: [facility] 08-11-2024 14:03-0500 Body temperature 99.9 [degF] Keren Haagen DETAIL MANAGER.HOME AND FAMILY LIVING PROFESSOR Work Phone: [facility] 08-11-2024 13:43-0500 Diastolic blood pressure 86 mm[Hg] Keren Haagen DETAIL MANAGER.HOME AND FAMILY LIVING PROFESSOR Work Phone: [facility] 08-11-2024 13:43-0500 Systolic blood pressure 162 mm[Hg] Keren Haagen DETAIL MANAGER.HOME AND FAMILY LIVING PROFESSOR Work Phone: [facility] 08-11-2024 13:03-0500 Heart rate 120 /min Keren Haagen DETAIL MANAGER.HOME AND FAMILY LIVING PROFESSOR Work Phone: [facility] 08-11-2024 13:03-0500 Respiratory rate 16 /min Keren Haagen DETAIL MANAGER.HOME AND FAMILY LIVING PROFESSOR Work Phone: [facility] 08-11-2024 13:03-0500 SaO2% (BldA) [Mass fraction] 98 % Keren Haagen DETAIL MANAGER.HOME AND FAMILY LIVING PROFESSOR Work Phone: [facility] 07-13-2024 13:38-0500 Body mass index (BMI) [Ratio] 29 kg/m2 Rosa Moomaw DETAIL MANAGER.HOME AND FAMILY LIVING PROFESSOR Work Phone: [facility] 07-13-2024 13:38-0500 Body temperature 98.8 [degF] Rosa Moomaw DETAIL MANAGER.HOME AND FAMILY LIVING PROFESSOR Work Phone: [facility] 07-13-2024 13:38-0500 Body weight 94.3 kg Rosa Moomaw DETAIL MANAGER.HOME AND FAMILY LIVING PROFESSOR Work Phone: [facility] 07-13-2024 13:38-0500 Diastolic blood pressure 86 mm[Hg] Rosa Moomaw DETAIL MANAGER.HOME AND FAMILY LIVING PROFESSOR Work Phone: [facility] 07-13-2024 13:38-0500 Heart rate 111 /min Rosa Moomaw DETAIL MANAGER.HOME AND FAMILY LIVING PROFESSOR Work Phone: [facility] 07-13-2024 13:38-0500 Respiratory rate 18 /min Rosa Moomaw DETAIL MANAGER.HOME AND FAMILY LIVING PROFESSOR Work Phone: [facility] 07-13-2024 13:38-0500 SaO2% (BldA) [Mass fraction] 97 % Rosa Moomaw DETAIL MANAGER.HOME AND FAMILY LIVING PROFESSOR Work Phone: [facility] 07-13-2024 13:38-0500 Systolic blood pressure 150 mm[Hg] Rosa Moomaw DETAIL MANAGER.HOME AND FAMILY LIVING PROFESSOR Work Phone: [facility] 07-09-2024 16:56-0500 Body mass index (BMI) [Ratio] 29.89 kg/m2 [facility] DETAIL MANAGER.HOME AND FAMILY LIVING PROFESSOR Work Phone: [facility] 07-09-2024 16:56-0500 Body temperature 98.4 [degF] [facility] DETAIL MANAGER.HOME AND FAMILY LIVING PROFESSOR Work Phone: [facility] 07-09-2024 16:56-0500 Body weight 97.2 kg Des[facility] DETAIL MANAGER.HOME AND FAMILY LIVING PROFESSOR Work Phone: [facility] 07-09-2024 16:56-0500 Diastolic blood pressure 78 mm[Hg] Desmond [facility] DETAIL MANAGER.HOME AND FAMILY LIVING PROFESSOR Work Phone: [facility] 07-09-2024 16:56-0500 Heart rate 98 /min Desmond Zhoujayne DETAIL MANAGER.HOME AND FAMILY LIVING PROFESSOR Work Phone: [facility] 07-09-2024 16:56-0500 Respiratory rate 18 /min Desmond Neidaricardojayne DETAIL MANAGER.HOME AND FAMILY LIVING PROFESSOR Work Phone: [facility] 07-09-2024 16:56-0500 SaO2% (BldA) [Mass fraction] 97 % Desmond Neidaricardojayne DETAIL MANAGER.HOME AND FAMILY LIVING PROFESSOR Work Phone: [facility] 07-09-2024 16:56-0500 Systolic blood pressure 128 mm[Hg] Desmond Carrasquillolejayne DETAIL MANAGER.HOME AND FAMILY LIVING PROFESSOR Work Phone: [facility] 06-22-2024 16:06-0500 Body height 180.3 cm Alma Delia Larry DETAIL MANAGER.HOME AND FAMILY LIVING PROFESSOR Work Phone: [facility] 06-22-2024 16:06-0500 Body mass index (BMI) [Ratio] 30.2 kg/m2 Alma Delia Larry DETAIL MANAGER.HOME AND FAMILY LIVING PROFESSOR Work Phone: [facility] 06-22-2024 16:06-0500 Body temperature 98.91 [degF] Alma Delia Larry DETAIL MANAGER.HOME AND FAMILY LIVING PROFESSOR Work Phone: [facility] 06-22-2024 16:06-0500 Body weight 98.2 kg Alma Delia Larry DETAIL MANAGER.HOME AND FAMILY LIVING PROFESSOR Work Phone: [facility] 06-22-2024 16:06-0500 Diastolic blood pressure 92 mm[Hg] Alma Delia Larry DETAIL MANAGER.HOME AND FAMILY LIVING PROFESSOR Work Phone: [facility] 06-22-2024 16:06-0500 Heart rate 107 /min Alma Delia Larry DETAIL MANAGER.HOME AND FAMILY LIVING PROFESSOR Work Phone: [facility] 06-22-2024 16:06-0500 SaO2% (BldA) [Mass fraction] 94 % Alma Delia Larry DETAIL MANAGER.HOME AND FAMILY LIVING PROFESSOR Work Phone: [facility] 06-22-2024 16:06-0500 Systolic blood pressure 142 mm[Hg] Alma Delia Blair DETAIL MANAGER.HOME AND FAMILY LIVING PROFESSOR Work Phone: [facility] 06-12-2024 14:44-0500 Body mass index (BMI) [Ratio] 30.98 kg/m2 Keren Kwon DETAIL MANAGER.HOME AND FAMILY LIVING PROFESSOR Work Phone: [facility] 06-12-2024 14:44-0500 Body weight 97.07 kg Keren Kwon DETAIL MANAGER.HOME AND FAMILY LIVING PROFESSOR Work Phone: [facility] 06-12-2024 14:44-0500 Diastolic blood pressure 92 mm[Hg] Keren Kwon DETAIL MANAGER.HOME AND FAMILY LIVING PROFESSOR Work Phone: [facility] 06-12-2024 14:44-0500 Heart rate 82 /min Keren Kwon DETAIL MANAGER.HOME AND FAMILY LIVING PROFESSOR Work Phone: [facility] 06-12-2024 14:44-0500 Respiratory rate 16 /min Keren Kwon DETAIL MANAGER.HOME AND FAMILY LIVING PROFESSOR Work Phone: [facility] 06-12-2024 14:44-0500 SaO2% (BldA) [Mass fraction] 96 % Keren Kwon DETAIL MANAGER.HOME AND FAMILY LIVING PROFESSOR Work Phone: [facility] 06-12-2024 14:44-0500 Systolic blood pressure 130 mm[Hg] Keren Kwon DETAIL MANAGER.HOME AND FAMILY LIVING PROFESSOR Work Phone: [facility] 10-14-2023 13:19-0400 Body height 177.8 cm SOUS CHEF-C Keren Kwon SOUS CHEF Work Phone: [facility] 10-14-2023 13:19-0400 Body mass index (BMI) [Ratio] 27.9 kg/m2 SOUS CHEF-C Keren Kwon SOUS CHEF Work Phone: [facility] 10-14-2023 13:19-0400 Body weight 88.45 kg SOUS CHEF-C Keren Kwon SOUS CHEF Work Phone: [facility] 10-14-2023 13:19-0400 Diastolic blood pressure 91 mm[Hg] SOUS CHEF-C Keren Kwon SOUS CHEF Work Phone: [facility] 10-14-2023 13:19-0400 Heart rate 90 /min SOUS CHEF-C Keren Kwon SOUS CHEF Work Phone: [facility] 10-14-2023 13:19-0400 Respiratory rate 18 /min SOUS CHEF-C Keren Nikolaianne SOUS CHEF Work Phone: [facility] 10-14-2023 13:19-0400 Systolic blood pressure 132 mm[Hg] SOUS CHEF-C Keren Kwon SOUS CHEF Work Phone: [facility] 05-16-2023 11:50-0400 Body temperature 98.3 [degF] SOUS CHEF-C Vani Owen SOUS CHEF Work Phone: [facility] 05-16-2023 11:50-0400 Diastolic blood pressure 104 mm[Hg] SOUS CHEF-C Vani Owen SOUS CHEF Work Phone: [facility] 05-16-2023 11:50-0400 Heart rate 88 /min SOUS CHEF-C Vani Owen SOUS CHEF Work Phone: [facility] 05-16-2023 11:50-0400 Respiratory rate 18 /min SOUS CHEF-C Vani Owen SOUS CHEF Work Phone: [facility] 05-16-2023 11:50-0400 SaO2% (BldA) [Mass fraction] 99 % SOUS CHEF-Ang Owen SOUS CHEF Work Phone: [facility] 05-16-2023 11:50-0400 Systolic blood pressure 142 mm[Hg] SOUS CHEF-C Vani Owen SOUS CHEF Work Phone: [facility] 05-14-2023 16:04-0400 Body height 177.8 cm SOUS CHEF-Ang Owen SOUS CHEF Work Phone: [facility] 05-14-2023 16:04-0400 Body weight 87.8 kg SOUS CHEF-Ang Owen SOUS CHEF Work Phone: [facility] 05-13-2023 17:41-0400 Body mass index (BMI) [Ratio] 27.8 kg/m2 SOUS CHEF-C Vani Owen SOUS CHEF Work Phone: [facility] 05-13-2023 16:27-0400 Body temperature 98.7 [degF] SOUS CHEF-C Vani Owen SOUS CHEF Work Phone: [facility] 05-13-2023 16:27-0400 Diastolic blood pressure 94 mm[Hg] SOUS CHEF-C Vani Owen SOUS CHEF Work Phone: [facility] 05-13-2023 16:27-0400 Heart rate 105 /min SOUS CHEF-C Vani Owen SOUS CHEF Work Phone: [facility] 05-13-2023 16:27-0400 Respiratory rate 18 /min SOUS CHEF-C Vani Owen SOUS CHEF Work Phone: [facility] 05-13-2023 16:27-0400 SaO2% (BldA) [Mass fraction] 95 % SOUS CHEF-C Vani Owen SOUS CHEF Work Phone: [facility] 05-13-2023 16:27-0400 Systolic blood pressure 144 mm[Hg] SOUS CHEF-C Vani Owen SOUS CHEF Work Phone: [facility] 05-13-2023 10:52-0400 Body height 177.8 cm SOUS CHEF-C Vani Owen SOUS CHEF Work Phone: [facility] 05-13-2023 10:52-0400 Body mass index (BMI) [Ratio] 28.3 kg/m2 SOUS CHEF-C Vani Owen SOUS CHEF Work Phone: [facility] 05-13-2023 10:52-0400 Body weight 89.49 kg SOUS CHEF-C Vani Owen SOUS CHEF Work Phone: [facility] 04-08-2023 09:32-0400 Body temperature 98.49 [degF] Henry Morrow MD Work Phone: [facility] 04-08-2023 09:32-0400 Body weight 94.26 kg Henry Morrow MD Work Phone: [facility] 04-08-2023 09:32-0400 Diastolic blood pressure 119 mm[Hg] Henry Morrow MD Work Phone: [facility] 04-08-2023 09:32-0400 Heart rate 89 /min Henry Morrow MD Work Phone: [facility] 04-08-2023 09:32-0400 Respiratory rate 20 /min Henry Morrow MD Work Phone: [facility] 04-08-2023 09:32-0400 SaO2% (BldA) [Mass fraction] 98 % Henry Morrow MD Work Phone: [facility] 04-08-2023 09:32-0400 Systolic blood pressure 198 mm[Hg] Henry Morrow MD Work Phone: [facility] 04-01-2023 14:06-0400 Body height 177.[address] Pema Yang Work Phone: [facility] 04-01-2023 14:06-0400 Body mass index (BMI) [Ratio] 29.8 kg/m2 Dr. Pema Yang Work Phone: [facility] 04-01-2023 14:06-0400 Body weight 94.[address] Pema Yang Work Phone: [facility] 04-01-2023 14:06-0400 Diastolic blood pressure 103 mm[Hg] Dr. Pema Yang Work Phone: [facility] 04-01-2023 14:06-0400 Heart rate 91 /min Dr. Pema Yang Work Phone: [facility] 04-01-2023 14:06-0400 Respiratory rate 20 /min Dr. Pmea Yang Work Phone: [facility] 04-01-2023 14:06-0400 Systolic blood pressure 181 mm[Hg] Dr. Pema Yang Work Phone: [facility] 01-21-2023 15:27-0400 Diastolic blood pressure 103 mm[Hg] Keren Kwon APRN.CNP Work Phone: [facility] 01-21-2023 15:27-0400 Heart rate 91 /min Keren Kwon DETAIL MANAGER.HOME AND FAMILY LIVING PROFESSOR Work Phone: [facility] 01-21-2023 15:27-0400 Systolic blood pressure 159 mm[Hg] Keren Kwon DETAIL MANAGER.HOME AND FAMILY LIVING PROFESSOR Work Phone: [facility] 01-21-2023 14:22-0400 Body weight 92.53 kg Keren Kwon DETAIL MANAGER.HOME AND FAMILY LIVING PROFESSOR Work Phone: [facility] 01-21-2023 14:22-0400 Respiratory rate 16 /min Keren Kwon DETAIL MANAGER.HOME AND FAMILY LIVING PROFESSOR Work Phone: [facility] 01-21-2023 14:22-0400 SaO2% (BldA) [Mass fraction] 97 % Keren Kwon DETAIL MANAGER.HOME AND FAMILY LIVING PROFESSOR Work Phone: [facility] 01-09-2023 06:35-0400 Body height 177.[address] Pema Yang Work Phone: [facility] 01-09-2023 06:35-0400 Body mass index (BMI) [Ratio] 28.4 kg/m2 Dr. Pema Yang Work Phone: [facility] 01-09-2023 06:35-0400 Body temperature 97.2 [degF] Dr. Pema Yang Work Phone: [facility] 01-09-2023 06:35-0400 Body weight 89.[address] Pema Yang Work Phone: [facility] 01-09-2023 06:35-0400 Diastolic blood pressure 107 mm[Hg] Dr. Pema Yang Work Phone: [facility] 01-09-2023 06:35-0400 Heart rate 91 /min Dr. Pema Yang Work Phone: [facility] 01-09-2023 06:35-0400 Respiratory rate 18 /min Dr. Pema Yang Work Phone: [facility] 01-09-2023 06:35-0400 SaO2% (BldA) [Mass fraction] 97 % Dr. Pema Yang Work Phone: [facility] 01-09-2023 06:35-0400 Systolic blood pressure 173 mm[Hg] Dr. Pema Yang Work Phone: [facility] 01-02-2023 11:14-0400 Diastolic blood pressure 86 mm[Hg] Dr. Pema Yang Work Phone: [facility] 01-02-2023 11:14-0400 Heart rate 82 /min Dr. Pema Yang Work Phone: [facility] 01-02-2023 11:14-0400 Respiratory rate 16 /min Dr. Pema Yang Work Phone: [facility] 01-02-2023 11:14-0400 SaO2% (BldA) [Mass fraction] 97 % Dr. Pema Yang Work Phone: [facility] 01-02-2023 11:14-0400 Systolic blood pressure 131 mm[Hg] Dr. Pema Yang Work Phone: [facility] 01-02-2023 08:48-0400 Body mass index (BMI) [Ratio] 28.4 kg/m2 Dr. Pema Yang Work Phone: [facility] 01-02-2023 08:48-0400 Body temperature 96.8 [degF] Dr. Pema Yang Work Phone: [facility] 01-02-2023 08:48-0400 Body weight 89.[address] Pema Yang Work Phone: [facility] 12-24-2022 09:20-0400 Body mass index (BMI) [Ratio] 27.9 kg/m2 Dr. Pema Yang Work Phone: [facility] 12-24-2022 09:20-0400 Body weight 88.[address] Pema Yang Work Phone: [facility] 12-24-2022 09:20-0400 Diastolic blood pressure 100 mm[Hg] Dr. Pema Yang Work Phone: [facility] 12-24-2022 09:20-0400 Heart rate 96 /min Dr. Pema Yang Work Phone: [facility] 12-24-2022 09:20-0400 Respiratory rate 18 /min Dr. Pema Yang Work Phone: [facility] 12-24-2022 09:20-0400 SaO2% (BldA) [Mass fraction] 98 % Dr. Pema Yang Work Phone: [facility] 12-24-2022 09:20-0400 Systolic blood pressure 146 mm[Hg] Dr. Pema Yang Work Phone: [facility] 11-05-2022 13:39-0400 Body weight 93.44 kg Keren Haagen DETAIL MANAGER.HOME AND FAMILY LIVING PROFESSOR Work Phone: [facility] 11-05-2022 13:39-0400 Diastolic blood pressure 102 mm[Hg] Keren Haagen DETAIL MANAGER.HOME AND FAMILY LIVING PROFESSOR Work Phone: [facility] 11-05-2022 13:39-0400 Heart rate 76 /min Keren Haagen DETAIL MANAGER.HOME AND FAMILY LIVING PROFESSOR Work Phone: [facility] 11-05-2022 13:39-0400 Respiratory rate 18 /min Keren Haagen DETAIL MANAGER.HOME AND FAMILY LIVING PROFESSOR Work Phone: [facility] 11-05-2022 13:39-0400 SaO2% (BldA) [Mass fraction] 97 % Keren Haagen DETAIL MANAGER.HOME AND FAMILY LIVING PROFESSOR Work Phone: [facility] 11-05-2022 13:39-0400 Systolic blood pressure 158 mm[Hg] Keren Haagen DETAIL MANAGER.HOME AND FAMILY LIVING PROFESSOR Work Phone: [facility] 06-25-2022 17:52-0500 Body temperature 98.49 [degF] Ziggy Itz DETAIL MANAGER.HOME AND FAMILY LIVING PROFESSOR Work Phone: [facility] 06-25-2022 17:52-0500 Body weight 98.88 kg Ziggy Itz DETAIL MANAGER.HOME AND FAMILY LIVING PROFESSOR Work Phone: [facility] 06-25-2022 17:52-0500 Diastolic blood pressure 72 mm[Hg] Ziggy Itz DETAIL MANAGER.HOME AND FAMILY LIVING PROFESSOR Work Phone: [facility] 06-25-2022 17:52-0500 Heart rate 122 /min Ziggy Itz DETAIL MANAGER.HOME AND FAMILY LIVING PROFESSOR Work Phone: [facility] 06-25-2022 17:52-0500 Respiratory rate 20 /min Ziggy Itz DETAIL MANAGER.HOME AND FAMILY LIVING PROFESSOR Work Phone: [facility] 06-25-2022 17:52-0500 SaO2% (BldA) [Mass fraction] 98 % Ziggy Itz DETAIL MANAGER.HOME AND FAMILY LIVING PROFESSOR Work Phone: [facility] 06-25-2022 17:52-0500 Systolic blood pressure 122 mm[Hg] Ziggy Itz DETAIL MANAGER.HOME AND FAMILY LIVING PROFESSOR Work Phone: [facility] 06-05-2022 13:38-0500 Body temperature 98.01 [degF] Rebecca Jaycob DETAIL MANAGER.HOME AND FAMILY LIVING PROFESSOR Work Phone: [facility] 06-05-2022 13:38-0500 Body weight 97.98 kg Rebecca Jayocb DETAIL MANAGER.HOME AND FAMILY LIVING PROFESSOR Work Phone: [facility] 06-05-2022 13:38-0500 Diastolic blood pressure 82 mm[Hg] Rebecca Jaycob DETAIL MANAGER.HOME AND FAMILY LIVING PROFESSOR Work Phone: [facility] 06-05-2022 13:38-0500 Heart rate 92 /min Rebecca Jaycob DETAIL MANAGER.HOME AND FAMILY LIVING PROFESSOR Work Phone: [facility] 06-05-2022 13:38-0500 Respiratory rate 16 /min Rebecca Jaycob DETAIL MANAGER.HOME AND FAMILY LIVING PROFESSOR Work Phone: [facility] 06-05-2022 13:38-0500 SaO2% (BldA) [Mass fraction] 98 % Rebecca Devries DETAIL MANAGER.HOME AND FAMILY LIVING PROFESSOR Work Phone: [facility] 06-05-2022 13:38-0500 Systolic blood pressure 132 mm[Hg] Rebecca Jaycob DETAIL MANAGER.HOME AND FAMILY LIVING PROFESSOR Work Phone: [facility] 02-23-2022 09:18-0400 Body weight 92.99 kg Keren Haagen DETAIL MANAGER.HOME AND FAMILY LIVING PROFESSOR Work Phone: [facility] 02-23-2022 09:18-0400 Diastolic blood pressure 100 mm[Hg] Keren Haagen DETAIL MANAGER.HOME AND FAMILY LIVING PROFESSOR Work Phone: [facility] 02-23-2022 09:18-0400 Heart rate 114 /min Keren Haagen DETAIL MANAGER.HOME AND FAMILY LIVING PROFESSOR Work Phone: [facility] 02-23-2022 09:18-0400 SaO2% (BldA) [Mass fraction] 98 % Keren Kwon DETAIL MANAGER.HOME AND FAMILY LIVING PROFESSOR Work Phone: [facility] 02-23-2022 09:18-0400 Systolic blood pressure 150 mm[Hg] Keren Haagen DETAIL MANAGER.HOME AND FAMILY LIVING PROFESSOR Work Phone: [facility] 02-19-2022 15:00-0400 Body temperature 98.2 [degF] Ziggy Mobley DETAIL MANAGER.HOME AND FAMILY LIVING PROFESSOR Work Phone: [facility] 02-19-2022 15:00-0400 Body weight 92.44 kg Ziggy Mobley DETAIL MANAGER.HOME AND FAMILY LIVING PROFESSOR Work Phone: [facility] 02-19-2022 15:00-0400 Diastolic blood pressure 110 mm[Hg] Ziggy Itz DETAIL MANAGER.HOME AND FAMILY LIVING PROFESSOR Work Phone: [facility] 02-19-2022 15:00-0400 Heart rate 93 /min Ziggy Itz DETAIL MANAGER.HOME AND FAMILY LIVING PROFESSOR Work Phone: [facility] 02-19-2022 15:00-0400 Respiratory rate 21 /min Ziggy Mobley DETAIL MANAGER.HOME AND FAMILY LIVING PROFESSOR Work Phone: [facility] 02-19-2022 15:00-0400 SaO2% (BldA) [Mass fraction] 100 % Ziggy Mobley DETAIL MANAGER.HOME AND FAMILY LIVING PROFESSOR Work Phone: [facility] 02-19-2022 15:00-0400 Systolic blood pressure 150 mm[Hg] Ziggy Mobley DETAIL MANAGER.HOME AND FAMILY LIVING PROFESSOR Work Phone: [facility] 11-15-2021 13:43-0400 Diastolic blood pressure 92 mm[Hg] Keren Haagen DETAIL MANAGER.HOME AND FAMILY LIVING PROFESSOR Work Phone: [facility] 11-15-2021 13:43-0400 Heart rate 97 /min Keren Haagen DETAIL MANAGER.HOME AND FAMILY LIVING PROFESSOR Work Phone: [facility] 11-15-2021 13:43-0400 Respiratory rate 18 /min Keren Haagen DETAIL MANAGER.HOME AND FAMILY LIVING PROFESSOR Work Phone: [facility] 11-15-2021 13:43-0400 SaO2% (BldA) [Mass fraction] 97 % Keren Menchacaagen DETAIL MANAGER.HOME AND FAMILY LIVING PROFESSOR Work Phone: [facility] 11-15-2021 13:43-0400 Systolic blood pressure 118 mm[Hg] Keren Haagen DETAIL MANAGER.HOME AND FAMILY LIVING PROFESSOR Work Phone: [facility] 11-08-2021 17:43-0400 Body height 177.8 cm [facility] Work Phone: 11-08-2021 17:43-0400 Body mass index (BMI) [Ratio] 33 kg/m2 [facility] Work Phone: 11-08-2021 17:43-0400 Body temperature 97.4 [degF] [facility] Work Phone: 11-08-2021 17:43-0400 Body weight 104.32 kg [facility] Work Phone: 11-08-2021 17:43-0400 Diastolic blood pressure 80 mm[Hg] [facility] Work Phone: 11-08-2021 17:43-0400 Heart rate 103 /min [facility] Work Phone: 11-08-2021 17:43-0400 Respiratory rate 18 /min [facility] Work Phone: 11-08-2021 17:43-0400 SaO2% (BldA) [Mass fraction] 97 % [facility] Work Phone: 11-08-2021 17:43-0400 Systolic blood pressure 129 mm[Hg] [facility] Work Phone: 11-01-2021 15:31-0400 Body height 177 cm Keren Haagen DETAIL MANAGER.HOME AND FAMILY LIVING PROFESSOR Work Phone: [facility] 11-01-2021 15:31-0400 Body weight 96.62 kg Keren Haagen DETAIL MANAGER.HOME AND FAMILY LIVING PROFESSOR Work Phone: [facility] 11-01-2021 15:31-0400 Diastolic blood pressure 96 mm[Hg] Keren Haagen DETAIL MANAGER.HOME AND FAMILY LIVING PROFESSOR Work Phone: [facility] 11-01-2021 15:31-0400 Heart rate 103 /min Keren Haagen DETAIL MANAGER.HOME AND FAMILY LIVING PROFESSOR Work Phone: [facility] 11-01-2021 15:31-0400 Respiratory rate 18 /min Keren Haagen DETAIL MANAGER.HOME AND FAMILY LIVING PROFESSOR Work Phone: [facility] 11-01-2021 15:31-0400 SaO2% (BldA) [Mass fraction] 96 % Keren Haagen DETAIL MANAGER.HOME AND FAMILY LIVING PROFESSOR Work Phone: [facility] 11-01-2021 15:31-0400 Systolic blood pressure 118 mm[Hg] Keren Haagen DETAIL MANAGER.HOME AND FAMILY LIVING PROFESSOR Work Phone: [facility] Encounters Encounter Date Encounter Type Care Provider Facility Start: 03-29-2025 ambulatory Julius Lovell Facility :[facility] Start: 02-09-2025 End: 02-09-2025 Patient encounter procedure Gary VALLECILLO Work Phone: [facility] Comment on above: Lower abdominal pain (Primary Dx); Diarrhea, unspecified type Start: 02-09-2025 End: 02-09-2025 ambulatory GARY HUTTON Facility:[facility] Start: 02-01-2025 End: 02-01-2025 Refill Keren Haagen DETAIL MANAGER.HOME AND FAMILY LIVING PROFESSOR Work Phone: [facility] Comment on above: Refill Request Start: 01-19-2025 End: 01-19-2025 Refill Keren Haagen DETAIL MANAGER.HOME AND FAMILY LIVING PROFESSOR Work Phone: [facility] Comment on above: Refill Request Start: 12-22-2024 End: 12-22-2024 Refill Keren Haagen DETAIL MANAGER.HOME AND FAMILY LIVING PROFESSOR Work Phone: [facility] Comment on above: Refill Request Start: 12-11-2024 End: 12-11-2024 ambulatory [facility] Facility:[facility] Start: 11-30-2024 ambulatory Julius Lovell Facility :[facility] Start: 11-24-2024 End: 11-24-2024 Refill Keren Haagen DETAIL MANAGER.HOME AND FAMILY LIVING PROFESSOR Work Phone: [facility] Comment on above: Refill Request Start: 10-08-2024 End: 12-08-2024 Follow-up encounter Chris Devlin APRN.HOME AND FAMILY LIVING PROFESSOR, DNP Work Phone: Urology Start: 10-07-2024 End: 10-07-2024 [facility] Facility:[facility] Start: 10-07-2024 End: 10-07-2024 Patient encounter procedure Juarez Hernández DO Work Phone: [facility] Comment on above: Medial epicondylitis , right elbow (Primary Dx); Elbow pain, right Start: 10-02-2024 End: 10-02-2024 Refill Keren Haagen DETAIL MANAGER.HOME AND FAMILY LIVING PROFESSOR Work Phone: [facility] Comment on above: Refill Request Start: 09-29-2024 End: 09-29-2024 Refill Keren Haagen DETAIL MANAGER.HOME AND FAMILY LIVING PROFESSOR Work Phone: [facility] Comment on above: Refill Request Start: 09-28-2024 End: 09-28-2024 ambulatory [facility] Facility:[facility] Start: 09-28-2024 End: 09-28-2024 Office outpatient visit [...] Chronic insomnia Start: 09-28-2024 End: 09-28-2024 ambulatory [facility] Facility:[facility] Start: 09-25-2024 End: 09-25-2024 Telephone encounter Chris [...] of left knee Start: 08-31-2024 End: 08-31-2024 [facility] Facility:[facility] Start: 08-28-2024 End: 08-31-2024 Telephone encounter Keren Kwon APRN.CNP Work Phone: [facility] [place] Comment on above: Results Start: 08-27-2024 End: 08-27-2024 ambulatory [facility] Facility:[facility] Start: 08-27-2024 End: 08-27-2024 Subsequent hospital visit by physician [facility] Work Phone: Radiology Comment [...] Start: 08-24-2024 End: 08-24-2024 ambulatory KEREN ANNE Facility:[facility] Start: 08-19-2024 End: 08-20-2024 Refill Keren Kwon APRN.HOME AND FAMILY LIVING PROFESSOR Work Phone: Family [facility] [place] Comment on above: Refill Request Start: 08-12-2024 End: 08-21-2024 Telephone encounter Keren Kwon APRN.HOME AND FAMILY LIVING PROFESSOR Work Phone: [facility] [place] Comment on above: Results Start: 08-11-2024 End: 08-11-2024 Subsequent hospital visit by physician [facility] [place] Work Phone: Radiology Comment on above: Acute pain of left k nee [M25.562] Start: 08-11-2024 End: 08-11-2024 Office outpatient visit 25 minutes Keren Kwon APRN.HOME AND FAMILY LIVING PROFESSOR Work Phone: [facility] [place] Comment on above: Acute pain of left k nee (Primary Dx); Moderate hypertension Start: 08-11-2024 End: 08-11-20[facility] Start: 08-07-2024 End: 08-07-2024 Telephone encounter Keren Kwon APRN.HOME AND FAMILY LIVING PROFESSOR Work Phone: [facility] Comment on above: Results Start: 08-05-2024 End: 08-05-2024 ambulatory [facility] Facility:[facility] Start: 07-23-2024 End: 07-23-2024 Emergency department patient visit Keren Kwon NP Facility:[facility] Start: 07-21-2024 End: 07-21-2024 Refill Keren Kwon APRN.HOME AND FAMILY LIVING PROFESSOR Work Phone: [facility] [place] Comment on above: Refill Request Start: 07-13-2024 End: 07-13-2024 ambulatory No Pcp DETAIL MANAGER [facility] Start: 07-13-2024 End: 07-13-2024 Patient encounter procedure No Pcp DETAIL MANAGER [facility] Comment on above: Acute cough (Primary Dx) Start: 07-13-2024 End: 07-13-2024 Subsequent hospital visit by physician [facility] [place] Work Phone: Radiology Comment on above: Acute cough [R05.1] Start: 07-10-2024 End: 07-10-2024 Refill Keren Kwon APRN.CNP Work Phone: [facility] [place] Comment on above: Refill Request Start: 07-09-2024 End: 07-09-2024 Subsequent hospital visit by physician [facility] [place] Work Phone: Radiology Comment on above: Injury of right elbo w, initial encounter [S59.901A] Start: 07-09-2024 End: 07-09-2024 [facility] Facility:[facility] Start: 07-09-2024 End: 07-09-2024 Office outpatient visit 15 minutes Desmond Duncan APRN.HOME AND FAMILY LIVING PROFESSOR Work Phone: [facility] Comment on above: Sore throat (Primary Dx); Injury of right elbow, initial encounter; Viral illness Start: 07-09-2024 End: 07-12-2024 Telephone encounter Desmond Duncan APRN.HOME AND FAMILY LIVING PROFESSOR Work Phone: [facility] Comment on above: Results Start: 06-29-2024 [facility] Start: 06-22-2024 End: 06-22-2024 ambulatory [facility] Facility:[facility] Start: 06-22-2024 End: 06-22-2024 Patient encounter procedure Alma Delia Garza APRN.HOME AND FAMILY LIVING PROFESSOR Work Phone: General Surgery Comment on above: Family hx of colon c ancer (Primary Dx); Screening for colon cancer; Hx of colonic polyps Start: 06-22-2024 End: 06-23-2024 Telephone encounter Alma Delia Garza APRN.HOME AND FAMILY LIVING PROFESSOR Work Phone: General Surgery Start: 06-12-2024 End: 06-12-2024 Office outpatient visit 25 minutes Keren Haagen DETAIL MANAGER.HOME AND FAMILY LIVING PROFESSOR Work Phone: [facility] [place] Comment on above: Coronary artery dise ase due to lipid rich plaque (Primary Dx); Encounter for immunization; Hypertriglyceridemia; GERD without esophagitis; Anxiety and depression; Hypomagnesemia; Chronic alcohol abuse; Chronic insomnia; Acute right-sided low back pain without sciatica; Moderate hypertension; Screening for prostate cancer; Screening for colon cancer; Bilateral carotid artery stenosis Start: 06-12-2024 End: 06-12-2024 ambulatory KEREN KWON Facility:[facility] Start: 10-14-2023 End: 10-14-2023 ambulatory [facility] Keren Kwon S[facility] CHEF Work Phone: [facility] Work Phone: Start: 10-14-2023 End: 10-14-2023 Patient encounter procedure [facility] Keren Kwon S[facility] CHEF Work Phone: [facility] Work Phone: Start: 05-15-2023 Non-patient / Non-visit [facility] Harjinder Owen NP Work Phone: [facility] Work Phone: Start: 05-14-2023 Non-patient / Non-visit [facility] Harjinder Owen S[facility] CHEF Work Phone: [facility] Work Phone: Start: 05-13-2023 Non-patient / Non-visit [facility] Harjinder Owen S[facility] CHEF Work Phone: [facility] Work Phone: Start: 05-13-2023 End: 05-16-2023 Evaluation and management of inpatient [facility] Vani Owen SOUS CHEF Work Phone: [facility] 3 Work Phone: Start: 04-09-2023 Telephone encounter Henry Espinosa MD Work Phone: Urgent Care Comment on above: Results Start: 04-08-2023 End: 04-08-2023 Patient encounter procedure Henry Morrow MD Work Phone: [facility] Comment on above: Influenza-like illne ss (Primary Dx); Hypertension, essential Start: 04-02-2023 Non-patient / Non-visit Dr. Alberto Yang Work Phone: [facility] Start: 04-01-2023 End: 04-01-[address] Pema Yang Work Phone: [facility] Work Phone: Start: 04-01-2023 End: 04-01-[address] Pema Yang Work Phone: [facility] Work Phone: Start: 02-11-2023 Non-patient / Non-visit Dr. Alberto Yang Work Phone: [facility] Start: 02-11-2023 End: 02-11-[address] Pema Yang Work Phone: [facility] Work Phone: Start: 02-11-2023 End: 02-11-[address] Pema Yang Work Phone: [facility] Work Phone: Start: 01-21-2023 End: 01-21-2023 Office outpatient visit 25 minutes Keren Kwon APRN.CNP Work Phone: [facility] Comment on above: Chest pain, unspecif ied type (Primary Dx); 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; Acute right-sided low back pain without sciatica; Hypertension, essential; Thrombocytopenia (HCC); Chronic alcohol abuse Start: 01-17-2023 End: 01-17-[address] Pema Yang Work Phone: [facility] Work Phone: Start: 01-17-2023 End: 01-17-[address] Pema Yang Work Phone: [facility]-Cat Scan, [facility] Work Phone: Start: 01-09-2023 End: 01-09-[address] Pema Yang Work Phone: [facility]-P[facility] Medicine [facility] Work Phone: Start: 01-02-2023 End: 01-02-2023 Emergency department patient visit Dr. Pema Yang Work Phone: [facility]Emer[facility] Work Phone: Start: 12-26-2022 Telephone encounter Keren rodríguez APRN.HOME AND FAMILY LIVING PROFESSOR Work Phone: [facility] Comment on above: Results Start: 12-24-2022 End: 12-24-[address] Pema Yang Work Phone: [facility] Work Phone: Start: 11-05-2022 End: 11-05-2022 Office outpatient visit 25 minutes Keren Kwon APRN.HOME AND FAMILY LIVING PROFESSOR Work Phone: [facility] Comment on above: Hypertension, essent ial (Primary Dx); GERD without esophagitis; Acute right-sided low back pain without sciatica; Anxiety and depression; Hypertriglyceridemia; Chronic alcohol abuse; 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; Renal insufficiency; Special screening examination for viral disease; Chronic insomnia; Bilateral carotid artery stenosis Start: 06-25-2022 End: 06-25-2022 Subsequent hospital visit by physician [facility] Work Phone: Radiology Comment on above: Foot pain, right [M7 9.671] Start: 06-25-2022 End: 06-25-2022 Patient encounter procedure Ziggy Mobley APRN.HOME AND FAMILY LIVING PROFESSOR Work Phone: [facility] Comment on above: Foot pain, right (Pr imary Dx) Start: 06-05-2022 End: 06-05-2022 Patient encounter procedure Rebecca Devries GERARDO.HOME AND FAMILY LIVING PROFESSOR Work Phone: [facility] Comment on above: Body aches (Primary Dx); Flu-like symptoms Start: 03-28-2022 Refill Keren Kwon APRN.HOME AND FAMILY LIVING PROFESSOR Work Phone: [facility] Comment on above: Refill Request Start: 02-23-2022 Telephone encounter Mikhail Mancia MD Work Phone: [facility] Comment on above: Results Start: 02-23-2022 End: 02-23-2022 Office outpatient visit 15 minutes Keren Kwon APRN.HOME AND FAMILY LIVING PROFESSOR Work Phone: [facility] Comment on above: Sinobronchitis (Prim braeden Dx); Anxiety and depression; Hypertension, essential; Hypertriglyceridemia; Chronic alcohol abuse; Chest pain, unspecified type; 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; Chronic insomnia; GERD without esophagitis; Acute right-sided low back pain without sciatica; Dermatitis Start: 02-19-2022 End: 02-19-2022 Subsequent hospital visit by physician [facility] Work Phone: Radiology Comment on above: Acute cough [R05.1] Start: 02-19-2022 End: 02-19-2022 Patient encounter procedure Ziggy King GERARDO.HOME AND FAMILY LIVING PROFESSOR Work Phone: [facility] Comment on above: Acute cough (Primary Dx); Hypertension, essential; URI, acute Start: 11-15-2021 End: 11-15-2021 Patient encounter procedure Keren Kwon APRN.HOME AND FAMILY LIVING PROFESSOR Work Phone: [facility] [place] Comment on above: Upper back pain (Mary danish Dx); Function kidney decreased Start: 11-09-2021 Telephone encounter Rolando Young PA-C Work Phone: [facility] Comment on above: Results report from [facility] ER Start: 11-08-2021 End: 11-08-2021 Emergency department patient visit [facility] Start: 11-08-2021 ambulatory Haris Dawkins RN [facility] Start: 11-08-2021 Patient encounter procedure Haris Dawkins RN NURSE BRAND COORDINATOR Comment on above: Referral Request Start: 11-08-2021 Telephone encounter Keren rodríguez APRN.CHRISTIANA Work Phone: [facility] [place] Comment on above: Results Start: 11-01-2021 End: 11-01-2021 Patient encounter procedure Keren Kwon APRN.CHRISTIANA Work Phone: [facility] [place] Comment on above: Chest pain, unspecif ied [...] disorders Start: 03-18-2018 Ambulatory CANDELARIO ARELLANO Facility :[facility] Start: 09-10-2017 End: 09-10-2017 [facility] Procedures Date Procedure Procedure Detail Performing Clinician Start: 10-07-2024 Injection single tendon origin/insertion Juarez Hernández DO Work Phone: Start: 09-28-2024 Urnls dip stick/tablet rgnt auto w/o microscopy Chris Devlin DETAIL MANAGER.HOME AND FAMILY LIVING PROFESSOR, DNP Work Phone: Start: 08-27-2024 Us abdominal real time w/image limited Keren Kwon APRN.HOME AND FAMILY LIVING PROFESSOR Work Phone: Start: 08-05-2024 Lipid 1996 panel - Serum or Plasma Keren Kwon APRN.HOME AND FAMILY LIVING PROFESSOR Work Phone: Start: 07-13-2024 Radiologic exam chest 2 views Rosa Moomajodie DETAIL MANAGER.HOME AND FAMILY LIVING PROFESSOR Work Phone: Start: 07-09-2024 Radex elbow complete minimum 3 views Desmond Duncan DETAIL MANAGER.HOME AND FAMILY LIVING PROFESSOR Work Phone: Start: 07-09-2024 STREP A MOLECULAR (POC) Rocio Messina DETAIL MANAGER.HOME AND FAMILY LIVING PROFESSOR Work Phone: Start: 05-13-2023 Nucleic acid assay [facility] Vani Owen N P Work Phone: Start: 05-13-2023 US scan of gallbladder [facility] Vani lloyd S[facility] CHEF Work Phone: Start: 05-13-2023 CT of abdomen and pelvis without contrast [facility] Vani Owen [facility] CHEF Work Phone: Start: 02-11-2023 Radionuclide imaging of [...] foot complete minimum 3 views Ziggy Mobley APRN.HOME AND FAMILY LIVING PROFESSOR Work Phone: Start: 02-19-2022 Radiologic exam chest 2 views Ziggy Mobley APRN.HOME AND FAMILY LIVING PROFESSOR Work Phone: Start: 11-08-2021 CT of abdomen and pelvis without contrast Start: 01-12-2019 Colonoscopy Keren Kwon APRN.HOME AND FAMILY LIVING PROFESSOR Work Phone: H/O: surgery Hx of eye surgery History of tonsillectomy History of tonsi llectomy Plan of Treatment Date Care Activity Detail Author Start: 12-30-2031 Pneumococcal vaccination Pneumococcal Vaccine (3 of 3 - PPSV23 or PCV20) [facility] Start: 10-07-2029 Prostate specific antigen measurement Prostate Cancer Screening Discussion [facility] Start: 08-11-2029 Prostate specific antigen measurement Prostate Cancer Screening Discussion [facility] Start: 08-05-2029 Lipid panel Lipid Screening [facility] Start: 08-05-2029 Prostate specific antigen measurement Prostate Cancer Screening Discussion [facility] Start: 11-06-2027 Lipid 1996 panel - Serum or Plasma Lipid Screening [facility] Start: 11-06-2027 Lipid panel Lipid Screening [facility] Start: 11-06-2027 LIPID SCREEN LIPID SCREEN [facility] Start: 08-11-2027 Diabetes Screening Diabetes Screening [facility] Start: 08-05-2027 Diabetes Screening Diabetes Screening [facility] Start: 02-21-2027 LIPID SCREEN LIPID SCREEN [facility] Start: 11-07-2026 LIPID SCREEN LIPID SCREEN [facility] Start: 07-10-2026 Urine microalbumin profile [facility] Start: 12-11-2025 Annual PCP Team Chronic Disease Visit Annual PCP Team Chronic Disease Visit [facility] Start: 11-05-2025 DIABETES SCREEN DIABETES SCREEN [facility] Start: 11-05-2025 Diabetes Screening Diabetes Screening [facility] Start: 09-28-2025 Annual PCP Team Chronic Disease Visit Annual PCP Team Chronic Disease Visit [facility] Start: 08-31-2025 Annual PCP Team Chronic Disease Visit Annual PCP Team Chronic Disease Visit [facility] Start: 08-24-2025 Annual PCP Team Chronic Disease Visit Annual PCP Team Chronic Disease Visit [facility] Start: 08-11-2025 Annual PCP Team Chronic Disease Visit Annual PCP Team Chronic Disease Visit [facility] Start: 08-05-2025 Hepatitis B surface antibody level LDL Cholesterol [facility] Start: 07-09-2025 BP Controlled (<130/80) BP Controlled (<130/80) [facility] Start: 06-14-2025 End: 06-14-2025 Patient encounter procedure 06/14/2025 2:40 PM EST Office Visit Family [facility] [address] [place] [id number] Keren Kwon, DETAIL MANAGER.HOME AND FAMILY LIVING PROFESSOR [address] [place] [address] 6 month follow up/Annual [facility] [place] Comment on above: 6 month follow up/Annual Start: 06-12-2025 Annual PCP Team Chronic Disease Visit Annual PCP Team Chronic Disease Visit [facility] Start: 06-12-2025 HIV screening HIV Screening [facility] Comment on above: Postponed from 1984 (Declined at t his time) Start: 03-22-2025 Influenza [facility] Start: 01-06-2025 LIPID SCREEN LIPID SCREEN [facility] Start: 12-21-2024 End: 03-22-2025 Prostate Specific Ag Free [Mass/volume] in Serum or Plasma PROSTATE SPECIFIC ANTIGEN, FREE Lab Routine Elevated PSA Expected: 12/21/2024, Expires: 03/22/2025 [facility] Work Phone: Comment on above: Expected: 12/21/2024, Expires: Start: 12-11-2024 End: 12-11-2024 Patient encounter procedure 12/11/2024 2:20 PM EDT Office Visit [facility] [place] [address] [place] [address] Keren Kwon, DETAIL MANAGER.HOME AND FAMILY LIVING PROFESSOR [address] [place] [address] Follow up visit. [facility] Comment on above: Follow up visit. Start: 12-01-2024 End: 12-01-2024 Patient encounter procedure 12/01/2024 2:40 PM EDT Office Visit [facility] [place] [address] [place] [address] Keren Kwon, DETAIL MANAGER.HOME AND FAMILY LIVING PROFESSOR [address] [facility] [place] [address] Follow up from injury [facility] [place] Comment on above: Follow up from injury Start: 11-30-2024 End: 11-30-2024 Patient encounter procedure 11/30/2024 1:00 PM EDT Office Visit Urology [address] [place] [address] Chris Devlin, DETAIL MANAGER.HOME AND FAMILY LIVING PROFESSOR, DNP [address] [facility] [place] [address] 1 month f/u- BPH, Elevated PSA Urology Comment on above: 1 month f/u- BPH, Elevated PSA Start: 11-07-2024 DIABETES SCREEN DIABETES SCREEN [facility] Start: 11-02-2024 End: 11-02-2024 Patient encounter procedure 11/02/2024 1:00 PM EDT [facility] [address] [place] [address] Keren Kwon APRN.HOME AND FAMILY LIVING PROFESSOR [address] [place] [address] 3 month follow up Family [facility] Comment on above: 3 month follow up Start: 10-07-2024 End: 10-07-2024 Patient encounter procedure 10/07/2024 1:30 PM EDT Office Visit Family [facility] [place] [address] [address] Juarez Hernández V, DO [address] [place] [address] Elbow pain, right [M25.521] Family [facility] Comment on above: Elbow pain, right [M25.521] Start: 09-29-2024 End: 2024 Prostate Specific Ag Free [Mass/volume] in Serum or Plasma PROSTATE SPECIFIC ANTIGEN, FREE Lab Routine Elevated PSA Expected: 09/29/2024, Expires: 2024 [facility] Comment on above: Expected: 09/29/2024, Expires: Start: 09-28-2024 End: 09-28-2024 Patient encounter procedure Urology Comment on above: Elevated PSA [R97.20] 4 week BP check Elevated PSA. Patien t to come in at 1230. [facility] Start: 08-31-2024 End: 08-31-2024 Patient encounter procedure 08/31/2024 3:20 PM EST Office Visit Family [facility] Masters[facility] [address] [facility] [place] [address] Keren Kwon APRN.HOME AND FAMILY LIVING PROFESSOR [address] [facility] [place] [address] 1 week BP check [facility] Comment on above: 1 week BP check Start: 08-27-2024 End: 08-27-2024 Patient encounter procedure 08/27/2024 1:45 PM EST Appointment Radiology [address] [place] [address] Elevated alkaline phosphatase level [R74.8] Radiology Comment on above: Elevated alkaline phosphatase level [R74 .8] Start: 08-24-2024 End: 08-24-2024 Patient encounter procedure 08/24/2024 11:20 AM EST Office Visit [facility] [address] [place] [address] Keren Kwon APRN.HOME AND FAMILY LIVING PROFESSOR [address] [place] [address] f/u left knee pain [facility] Comment on above: f/u left knee pain Start: 08-11-2024 End: 11-10-2024 C reactive protein [Mass/volume] in Serum or Plasma [facility] Comment on above: Expected: 08/11/2024, Expires: Start: 08-11-2024 End: 11-10-2024 Erythrocyte sedimentation rate [facility] Comment on above: Expected: 08/11/2024, Expires: Start: 08-11-2024 End: 11-10-2024 Urate [Mass/volume] in Serum or Plasma [facility] Comment on above: Expected: 08/11/2024, Expires: Start: 08-11-2024 End: 08-11-2024 Patient encounter procedure 08/11/2024 1:00 PM EST Office Visit [facility] [place] [address] [place] [address] Keren Kwon, DETAIL MANAGER.HOME AND FAMILY LIVING PROFESSOR [address] [place] [address] [facility] 07/23/24 dx: L knee pain after falling from ladder [facility] Comment on above: [facility] 07/23/24 dx: L knee pain after fall ing from ladder Start: 08-07-2024 End: 11-06-2024 ALK PHOS ISOENZYM BL ALK PHOS ISOENZYM BL Lab Routine Elevated alkaline phosphatase level Expected: 08/07/2024, Expires: 11/06/2024 [facility] Comment on above: Expected: 08/07/2024, Expires: Start: 08-07-2024 End: 11-06-2024 Basic metabolic 2000 panel - Serum or Plasma BASIC METABOLIC PANEL Lab Routine Hyponatremia Expected: 08/07/2024, Expires: 11/06/2024 [facility] Work Phone: Comment on above: Expected: 08/07/2024, Expires: Start: 08-07-2024 End: 11-06-2024 CBC W Auto Differential panel - Blood COMPLETE BLOOD COUNT AND DIFFERENTIAL Lab Routine Elevated hemoglobin (HCC) Expected: 08/07/2024, Expires: 11/06/2024 [facility] Comment on above: Expected: 08/07/2024, Expires: Start: 08-07-2024 End: 11-06-2024 Osmolality of Urine OSMOLALITY URINE Lab Routine Hyponatremia Expected: 08/07/2024, Expires: 11/06/2024 [facility] Comment on above: Expected: 08/07/2024, Expires: Start: 08-07-2024 End: 11-06-2024 Prostate Specific Ag Free [Mass/volume] in Serum or Plasma PROSTATE SPECIFIC ANTIGEN, FREE Lab Routine Elevated PSA Expected: 08/07/2024, Expires: 11/06/2024 [facility] Comment on above: Expected: 08/07/2024, Expires: Start: 08-07-2024 End: 11-06-2024 Sodium [Moles/volume] in Urine collected for unspecified duration SODIUM RANDOM URINE Lab Routine Hyponatremia Expected: 08/07/2024, Expires: 11/06/2024 [facility] Comment on above: Expected: 08/07/2024, Expires: Start: 08-05-2024 End: 08-05-2024 Patient encounter procedure 08/05/2024 12:30 PM EST Office Visit [facility] [address] [place] [address] Bilateral carotid artery stenosis [I65.23] [facility] Comment on above: Bilateral carotid artery stenosis [I65.2 3] Start: 07-08-2024 End: 07-08-2024 Patient encounter procedure 07/08/2024 3:30 PM EST Office Visit [facility] [address] [place] [address] Bilateral carotid artery stenosis [I65.23] [facility] Comment on above: Bilateral carotid artery stenosis [I65.2 3] Start: 06-22-2024 End: 06-22-2024 Patient encounter procedure 06/22/2024 4:00 PM EST Office Visit General Surgery [address] [place] [address] Alma Delia Garza APRN.HOME AND FAMILY LIVING PROFESSOR [address] [place] [address] Screening for colon cancer [Z12.11] General Surgery Comment on above: Screening for colon cancer [Z12.11] Start: 06-12-2024 End: 09-11-2024 CBC W Auto Differential panel - Blood COMPLETE BLOOD COUNT AND DIFFERENTIAL Lab Routine Moderate hypertension Expected: 06/12/2024, Expires: 09/11/2024 [facility] Work Phone: Comment on above: Expected: 06/12/2024, Expires: Start: 06-12-2024 End: 09-11-2024 Cobalamin (Vitamin B12) [Mass/volume] in Serum or Plasma VITAMIN B12 Lab Routine Chronic alcohol abuse Expected: 06/12/2024, Expires: 09/11/2024 [facility] Comment on above: Expected: 06/12/2024, Expires: Start: 06-12-2024 End: 09-11-2024 Comprehensive metabolic 2000 panel - Serum or Plasma COMPREHENSIVE METABOLIC PANEL Lab Routine Moderate hypertension Expected: 06/12/2024, Expires: 09/11/2024 [facility] Comment on above: Expected: 06/12/2024, Expires: Start: 06-12-2024 End: 09-11-2024 Folate [Mass/volume] in Serum or Plasma FOLATE, SERUM Lab Routine Chronic alcohol abuse Expected: 06/12/2024, Expires: 09/11/2024 [facility] Comment on above: Expected: 06/12/2024, Expires: Start: 06-12-2024 End: 09-11-2024 Lipid 1996 panel - Serum or Plasma LIPID PANEL BASIC Lab Routine Hypertriglyceridemia Coronary artery disease due to lipid rich plaque Expected: 06/12/2024, Expires: 09/11/2024 [facility] Comment on above: Expected: 06/12/2024, Expires: Start: 06-12-2024 End: 09-11-2024 Magnesium [Mass/volume] in Serum or Plasma MAGNESIUM Lab Routine Hypomagnesemia Chronic alcohol abuse Expected: 06/12/2024, Expires: 09/11/2024 [facility] Comment on above: Expected: 06/12/2024, Expires: Start: 06-12-2024 End: 09-11-2024 PSA/PROSTATE SPECIFIC ANTIGEN SCREENING PSA/PROSTATE SPECIFIC ANTIGEN SCREENING Lab Routine Screening for prostate cancer Expected: 06/12/2024, Expires: 09/11/2024 [facility] Comment on above: Expected: 06/12/2024, Expires: Start: 03-22-2024 Covid-19 Vaccine ( season) Covid-19 Vaccine () [facility] Start: 03-22-2024 Influenza vaccination Influenza Vaccine (#1) [facility] Start: 01-22-2024 ANNUAL PCP TEAM CHRONIC DISEASE VISIT ANNUAL PCP TEAM CHRONIC DISEASE VISIT [facility] Start: 01-13-2024 Colonoscopy COLONOSCOPY [facility] Start: 01-13-2024 COLORECTAL CANCER SCREENING COLORECTAL CANCER SCREENING [facility] Start: 01-13-2024 Screening for malignant neoplasm of colon [facility] Start: 11-06-2023 ANNUAL PCP TEAM CHRONIC DISEASE VISIT ANNUAL PCP TEAM CHRONIC DISEASE VISIT [facility] Start: 11-06-2023 COVID-19 VACCINE (#1) COVID-19 VACCINE (#1) [facility] Comment on above: Postponed from 06/30/1967 (Declined at t his time) Start: 11-06-2023 HEPATITIS B (1 of 3 - 3-dose series) HEPATITIS B (1 of 3 - 3-dose series) [facility] Comment on above: Postponed from 1966 (Declined at t his time) Start: 11-06-2023 Hepatitis B Vaccine (1 of 3 - 3-dose series) Hepatitis B Vaccine (1 of 3 - 3-dose series) [facility] Comment on above: Postponed from 1966 (Declined at t his time) Start: 11-06-2023 HIV SCREENING HIV SCREENING [facility] Comment on above: Postponed from 1984 (Declined at t his time) Start: 11-06-2023 PROSTATE CANCER SCREENING DISCUSSION PROSTATE CANCER SCREENING DISCUSSION [facility] Comment on above: Postponed from 2021 (Declined at t his time) Start: 06-25-2023 BP CONTROLLED (<130/80) BP CONTROLLED (<130/80) [facility] Start: 05-16-2023 Patient discharge [facility] Start: 05-13-2023 Ambulation without limitation [facility] Start: 05-13-2023 Assessment of risk of venous thromboembolism [facility] Start: 05-13-2023 Inhalation therapy procedure [facility] Start: 05-13-2023 Insertion of catheter into peripheral vein [facility] Start: 05-13-2023 Measuring intake and output [facility] Start: 05-13-2023 Oxygen therapy [facility] Start: 05-13-2023 Providing care according to standard [facility] Start: 05-13-2023 Referral to service [facility] Start: 05-13-2023 End: 05-13-2023 [facility] Start: 05-13-2023 Following clinical pathway protocol [facility] Start: 05-13-2023 Verification routine [facility] Start: 05-13-2023 Admission procedure [facility] Start: 05-13-2023 Hospital admission, emergency, from emergency room, medical nature [facility] Start: 05-13-2023 [facility] Start: 05-13-2023 Consultation [facility] Start: 05-13-2023 Patient referral to dietitian [facility] Start: 03-22-2023 Influenza vaccination [facility] Start: 02-23-2023 ANNUAL PCP TEAM CHRONIC DISEASE VISIT ANNUAL PCP TEAM CHRONIC DISEASE VISIT [facility] Start: 01-21-2023 End: 03-23-2023 Cobalamin (Vitamin B12) [Mass/volume] in Serum or Plasma [facility] Work Phone: Comment on above: Expected: 01/21/2023, Expires: 3 Start: 01-21-2023 End: 03-23-2023 Folate [Mass/volume] in Serum or Plasma [facility] Work Phone: Comment on above: Expected: 01/21/2023, Expires: 3 Start: 01-06-2023 DIABETES SCREEN DIABETES SCREEN [facility] Start: 11-15-2022 ANNUAL PCP TEAM CHRONIC DISEASE VISIT ANNUAL PCP TEAM CHRONIC DISEASE VISIT [facility] Start: 11-05-2022 End: 01-05-2023 Comprehensive metabolic 2000 panel - Serum or Plasma [facility] Work Phone: Comment on above: Expected: 11/05/2022, Expires: 3 Start: 11-05-2022 End: 01-05-2023 Lipid 1996 panel - Serum or Plasma [facility] Work Phone: Comment on above: Expected: 11/05/2022, Expires: 3 Start: 11-05-2022 End: 01-05-2023 Magnesium [Mass/volume] in Serum or Plasma [facility] Work Phone: Comment on above: Expected: 11/05/2022, Expires: 3 Start: 11-01-2022 ANNUAL PCP TEAM CHRONIC DISEASE VISIT ANNUAL PCP TEAM CHRONIC DISEASE VISIT [facility] Start: 06-05-2022 End: 06-19-2022 Influenza virus A and B RNA and SARS-CoV-2 (COVID-19) N gene panel - Respiratory specimen by ABBY with probe detection COVID WITH FLUA+B, ROUTINE Microbiology Routine Body aches Flu-like symptoms Expected: 06/05/2022, Expires: 06/19/2022 [facility] Work Phone: Comment on above: Expected: 06/05/2022, Expires: 2 Start: 03-22-2022 Influenza vaccination [facility] Start: 02-08-2022 End: 04-10-2022 CK CREATINE KINASE CK CREATINE KINASE Lab Routine NSTEMI (non-ST elevated myocardial infarction) (HCC) Hypertriglyceridemia Hyperlipidemia, mixed Expected: 02/08/2022, Expires: 04/10/2022 [facility] Work Phone: Comment on above: Expected: 02/08/2022, Expires: 2 Start: 02-08-2022 End: 04-10-2022 LIPID PANEL BASIC LIPID PANEL BASIC Lab Routine NSTEMI (non-ST elevated myocardial infarction) (HCC) Hypertriglyceridemia Hyperlipidemia, mixed Expected: 02/08/2022, Expires: 04/10/2022 [facility] Work Phone: Comment on above: Expected: 02/08/2022, Expires: 2 Start: 2021 PROSTATE CANCER SCREENING DISCUSSION PROSTATE CANCER SCREENING DISCUSSION [facility] Start: 2021 Prostate specific antigen measurement Prostate Cancer Screening Discussion [facility] Start: 11-15-2021 End: 01-15-2022 Comprehensive metabolic 2000 panel - Serum or Plasma COMP METABOLIC PANEL Lab Routine Function kidney decreased Expected: 11/15/2021, Expires: 01/15/2022 [facility] Work Phone: Comment on above: Expected: 11/15/2021, Expires: 2 Start: 11-09-2021 End: 01-09-2022 POTASSIUM BLD POTASSIUM BLD Lab STAT Serum potassium elevated Expected: 11/09/2021, Expires: 01/09/2022 [facility] Work Phone: Comment on above: Expected: 11/09/2021, Expires: 2 Start: 11-01-2021 End: 01-01-2022 CBC W Auto Differential panel - Blood CBC + DIFF Lab Routine Fatigue, unspecified type Expected: 11/01/2021, Expires: 01/01/2022 [facility] Work Phone: Comment on above: Expected: 11/01/2021, Expires: 2 Start: 11-01-2021 End: 01-01-2022 Comprehensive metabolic 2000 panel - Serum or Plasma COMP METABOLIC PANEL Lab Routine Hypertension, essential Renal insufficiency Expected: 11/01/2021, Expires: 01/01/2022 [facility] Work Phone: Comment on above: Expected: 11/01/2021, Expires: 2 Start: 11-01-2021 End: 01-01-2022 FERRITIN BLD FERRITIN BLD Lab Routine Fatigue, unspecified type Expected: 11/01/2021, Expires: 01/01/2022 [facility] Work Phone: Comment on above: Expected: 11/01/2021, Expires: 2 Start: 11-01-2021 End: 01-01-2022 Folate [Mass/volume] in Serum or Plasma FOLATE SERUM Lab Routine Fatigue, unspecified type Chronic alcohol abuse Expected: 11/01/2021, Expires: 01/01/2022 [facility] Work Phone: Comment on above: Expected: 11/01/2021, Expires: 2 Start: 11-01-2021 End: 01-01-2022 Hemoglobin A1c/Hemoglobin.total in Blood HGB A1C Lab Routine Elevated glucose Expected: 11/01/2021, Expires: 01/01/2022 [facility] Work Phone: Comment on above: Expected: 11/01/2021, Expires: 2 Start: 11-01-2021 End: 01-01-2022 IRON + TIBC IRON + TIBC Lab Routine Fatigue, unspecified type Expected: 11/01/2021, Expires: 01/01/2022 [facility] Work Phone: Comment on above: Expected: 11/01/2021, Expires: 2 Start: 11-01-2021 End: 01-01-2022 LIPID PANEL BASIC LIPID PANEL BASIC Lab Routine 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 Expected: 11/01/2021, Expires: 01/01/2022 [facility] Work Phone: Comment on above: Expected: 11/01/2021, Expires: 2 Start: 11-01-2021 End: 01-01-2022 Magnesium [Mass/volume] in Serum or Plasma MAGNESIUM BLD Lab Routine GERD without esophagitis Chronic alcohol abuse Expected: 11/01/2021, Expires: 01/01/2022 [facility] Work Phone: Comment on above: Expected: 11/01/2021, Expires: 2 Start: 11-01-2021 End: 11-01-2022 SARS-CoV-2 (COVID-19) RNA [Presence] in Respiratory specimen by ABBY with probe detection PRE-PROCEDURE & PRE-OPERATIVE COVID Microbiology Routine Chest pain, unspecified type Expected: 11/01/2021, Expires: 11/01/2022 [facility] Work Phone: Comment on above: Expected: 11/01/2021, Expires: 3 Start: 11-01-2021 End: 01-01-2022 Thyrotropin [Units/volume] in Serum or Plasma TSH BLD Lab Routine Fatigue, unspecified type Expected: 11/01/2021, Expires: 01/01/2022 [facility] Work Phone: Comment on above: Expected: 11/01/2021, Expires: 2 Start: 11-01-2021 End: 01-01-2022 VITAMIN B12 BLOOD VITAMIN B12 BLOOD Lab Routine Fatigue, unspecified type Expected: 11/01/2021, Expires: 01/01/2022 [facility] Work Phone: Comment on above: Expected: 11/01/2021, Expires: 2 Start: 05-17-2021 Pneumococcal Vaccine: 50+ (3 of 3 - PCV20 or PCV21) Pneumococcal Vaccine: 50+ (3 of 3 - PCV20 or PCV21) [facility] Start: 11-10-2019 SHINGRIX VACCINE (2 of 2) SHINGRIX VACCINE (2 of 2) [facility] Start: 12-06-2018 FECAL OCCULT BLOOD FECAL OCCULT BLOOD [facility] Start: 12-06-2018 Screening for malignant neoplasm of colon Fecal Occult Blood [facility] Start: 05-17-2017 PNEUMOCOCCAL (2 - PCV) PNEUMOCOCCAL (2 - PCV) [facility] Start: 05-17-2017 Pneumococcal vaccination Pneumococcal Vaccine (2 - PCV) [facility] Start: 12-30-2011 COLOGUARD (FIT-DNA) COLOGUARD (FIT-DNA) [facility] Start: 12-30-[address] COLONOGRAPHY [facility] Start: 12-30-2011 Screening for malignant neoplasm of colon [facility] Start: 12-30-2011 SIGMOIDOSCOPY SIGMOIDOSCOPY [facility] Start: 1985 Hepatitis B Vaccine (1 of 3 - 19+ 3-dose series) Hepatitis B Vaccine (1 of 3 - 19+ 3-dose series) [facility] Start: 1984 BP CONTROLLED (<130/80) BP CONTROLLED (<130/80) [facility] in Start: 1984 HEPATITIS C SCREENING HEPATITIS C SCREENING [facility] Start: 1984 HIV SCREENING HIV SCREENING [facility] Start: 1984 HIV screening HIV Screening [facility] Start: 12-30-1971 COVID-19 VACCINE (1) COVID-19 VACCINE (1) [facility] Start: 06-30-1967 COVID-19 VACCINE (#1) COVID-19 VACCINE (#1) [facility] Start: 1966 HEPATITIS B (1 of 3 - 3-dose series) HEPATITIS B (1 of 3 - 3-dose series) [facility] COVID & INFLUENZA A/ B & RSV PCR, ROUTINE COVID & INFLUENZA A/B & RSV PCR, ROUTINE Microbiology Routine Acute cough 07/13/2024 3:21 PM EST [facility] Work Phone: End: 11-01-2022 ECG COMPLETE ECG COMPLETE ECG Routine Chest pain, unspecified type 1 Occurrences starting 11/01/2021 until 11/01/2022 [facility] Work Phone: Comment on above: 1 Occurrences starting 11/01/2021 until 11/01/2022 Influenza virus A an d B RNA and SARS-CoV-2 (COVID-19) N gene panel - Respiratory specimen by ABBY with probe detection COVID WITH FLUA+B, ROUTINE Microbiology Routine Acute cough Ordered: 02/19/2022 [facility] Work Phone: Comment on above: Ordered: 02/19/2022 Influenza virus A an d B RNA and SARS-CoV-2 (COVID-19) N gene panel - Respiratory specimen by ABBY with probe detection COVID & INFLUENZA A/B NAAT, ROUTINE Microbiology Routine Influenza-like illness 04/08/2023 9:47 AM EDT [facility] Work Phone: Lipid 1996 panel - Serum or Plasma [facility] Measurement of respiratory function [facility] NM CARDIAC PERF STRESS/PHARM NM CARDIAC PERF STRESS/PHARM Radiology Routine Chest pain, unspecified type Encounter for screening for cardiovascular disorders Ordered: 11/01/2021 [facility] Work Phone: Comment on above: Ordered: 11/01/2021 Patient Education [facility] Work Phone: Patient referral [facility] Work Phone: POST VOID RESIDUAL POST VOID RES IDUAL Procedures Routine Elevated PSA BPH with obstruction/lower urinary tract symptoms Ordered: 09/28/2024 [facility] Work Phone: Comment on above: Ordered: 09/28/2024 Radionuclide imaging of perfusion of myocardium under exercise stress [facility] End: 01-25-2024 US ABD RIGHT UPPER QUADRANT US ABD RIGHT UPPER QUADRANT Radiology Routine Elevated liver enzymes 1 Occurrences starting 12/26/2022 until 01/25/2024 [facility] Work Phone: Comment on above: 1 Occurrences starting 12/26/2022 until 01/25/2024 End: 09-13-2025 US Abdomen RUQ US ABD RIGHT UPPER QUADRANT Radiology Routine Elevated alkaline phosphatase level 1 Occurrences starting 08/14/2024 until 09/13/2025 [facility] Work Phone: Comment on above: 1 Occurrences starting 08/14/2024 until 09/13/2025 End: 06-12-2025 US Carotid arteries - bilateral US CAROTID ARTERIES [facility] Lab Routine Bilateral carotid artery stenosis 1 Occurrences starting 06/12/2024 until 06/12/2025 [facility] Comment on above: 1 Occurrences starting 06/12/2024 until 06/12/2025 End: 11-01-2022 US CAROTID ARTERIES [facility] US CAROTID ARTERIES [facility] V[facility] Lab Routine Bilateral carotid artery stenosis 1 Occurrences starting 11/01/2021 until 11/01/2022 [facility] Work Phone: Comment on above: 1 Occurrences starting 11/01/2021 until 11/01/2022 End: 11-06-2023 US CAROTID ARTERIES [facility] US CAROTID ARTERIES [facility] V[facility] Lab Routine Bilateral carotid artery stenosis 1 Occurrences starting 11/05/2022 until 11/06/2023 [facility] Work Phone: Comment on above: 1 Occurrences starting 11/05/2022 until 11/06/2023 [facility] End: 09-10-2025 XR Knee - left 4 Views XR KNEE GENERAL 4V AP BOTH/PA BOTH/LAT/MERC LEFT Radiology Routine Acute pain of left knee 1 Occurrences starting 08/11/2024 until 09/10/2025 [facility] Work Phone: Comment on above: 1 Occurrences starting 08/11/2024 until 09/10/2025 XR Knee - left 4 Views XR KNEE G ENERAL 4V AP BOTH/PA BOTH/LAT/MERC LEFT Radiology Routine Acute pain of left knee 08/11/2024 2:35 PM EST [facility] Immunizations Immunization Date Immunization Notes Care Provider Bolivar ervin 06-12-2024 influenza, seasonal, injectable Keren Kwon DETAIL MANAGER.HOME AND FAMILY LIVING PROFESSOR Work Phone: [facility] 06-12-2024 influenza virus vacc ine, unspecified formulation Keren Kwon DETAIL MANAGER.HOME AND FAMILY LIVING PROFESSOR Work Phone: [facility] 05-14-2023 influenza, injectabl e, quadrivalent, preservative free SOUS CHEF-C Vani Owen SOUS CHEF Work Phone: [facility] 09-15-2019 zoster vaccine recombinant Keren Kwon DETAIL MANAGER.HOME AND FAMILY LIVING PROFESSOR Work Phone: [facility] Work Phone: 06-01-2019 influenza, injectabl e, quadrivalent, preservative free Dr. Pema Yang Work Phone: [facility] 06-01-2019 influenza, seasonal, injectable [facility] 06-01-2019 influenza virus vacc ine, unspecified formulation Henry Morrow MD Work Phone: [facility] 08-28-2018 influenza, injectabl e, quadrivalent, contains preservative Keren Kwon DETAIL MANAGER.HOME AND FAMILY LIVING PROFESSOR Work Phone: [facility] 06-24-2017 Influenza virus vaccine [facility] 07-10-2016 tetanus toxoid, redu adriana diphtheria toxoid, and acellular pertussis vaccine, adsorbed Keren Kwon DETAIL MANAGER.HOME AND FAMILY LIVING PROFESSOR Work Phone: [facility] 05-17-2016 pneumococcal polysaccharide vaccine, 23 valent Ziggy Mobley DETAIL MANAGER.HOME AND FAMILY LIVING PROFESSOR Work Phone: [facility] 04-25-2015 pneumococcal conjuga te vaccine, 13 valent [facility] 05-20-2014 influenza, seasonal, injectable Keren Kwon DETAIL MANAGER.HOME AND FAMILY LIVING PROFESSOR Work Phone: [facility] Work Phone: Payers Date Payer Category Payer Self-pay [id number] 2014 Medicaid [id number] 2014 Medicaid [facility] MEDICAID [id number] 2014-Present [phone] [address] [place] [address] Medicaid [id number] 2014 Medicaid [id number] 2014 Unknown [id number] Unknown [id number] Unknown [id number] Unknown [id number] Unknown [id number] Social History Date Type Detail Facility Start: 07-24-2016 End: 09-28-2024 Tobacco smoking status NHIS Ex-smoker [facility] Start: 12-30-1983 End: 05-30-2014 History of tobacco use Current smoker [facility] Start: 07-24-2016 End: 11-22-2022 Cigarettes smoked current (pack per day) - Reported 0.5 [facility] Start: 07-24-2016 End: 06-12-2024 Tobacco use and exposure User of smokeless tobacco [facility] End: 09-07-2024 History of tobacco use Chews Tobacco [facility] Start: 11-01-2021 End: 02-09-2025 Alcohol intake Current drinker of alcohol (finding) [facility] Start: 12-01-2019 End: 11-05-2022 History SDOH Alcohol Frequency 2 [facility] Start: 12-01-2019 End: 11-05-2022 History SDOH Alcohol Std Drinks 5 [facility] Start: 06-26-2016 History SDOH Alcohol Comment Binge drinking at times, worse with stress. [facility] Start: 12-01-2019 End: 11-05-2022 History SDOH Social Connections Phone 4 [facility] Start: 12-01-2019 End: 11-05-2022 History SDOH Social Connections Get Together 1 [facility] Start: 12-01-2019 End: 11-05-2022 History SDOH Social Connections Confucianism 3 [facility] Start: 12-01-2019 Education 21 [facility] Start: 04-02-2014 End: 06-05-2022 Tobacco Comment Very few, very infrequently. Father smoked in childhood home. [facility] Start: 1965 Sex Assigned At Male [facility] Start: 11-08-2021 End: 10-14-2023 Tobacco smoking status OHIS Unknown if ever smoked [facility] Start: 05-31-2019 Occasional [facility] Start: 05-31-2019 With Family [facility] Start: 10-28-2021 End: 02-20-2022 Exposure to SARS-CoV-2 (event) Not sure [facility] Start: 02-20-2022 End: 11-05-2022 History SDOH Alcohol Frequency 98 [facility] Start: 12-30-1983 End: 05-30-2014 History of tobacco use Cigarette Smoker [facility] Start: 05-26-2022 End: 06-05-2022 Exposure to SARS-CoV-2 (event) Yes [facility] Start: 03-14-2017 Marijuana [facility] Start: 03-14-2017 Non-smoker [facility] Start: 11-05-2022 End: 11-22-2022 Social connection and isolation panel [facility] Do you belong to any clubs or organizations such as roman catholic groups, unions, fraternal or athletic groups, or school groups? No [facility] Are you now , , , , never or living with a partner? Refused [facility] How often to you hav e a drink containing alcohol? 4 or more times a week [facility] How many standard dr inks containing alcohol do you have on a typical day? 3 or 4 [facility] How often do you hav e 6 or more drinks on 1 occasion? Weekly [facility] How hard is it for y ou to pay for the very basics like food, housing, medical care, and heating Not very hard [facility] Adult Depression Screening Assessment 2 [facility] Do you feel stress - tense, restless, nervous, or anxious, or unable to sleep at night because your mind is troubled all the time - these days [OSQ] Rather much [facility] (I/We) worried wheth er (my/our) food would run out before (I/we) got money to buy more. Sometimes true [facility] Start: 10-24-2018 Gender identity Identifies as male gender (finding) [facility] Start: 10-24-2018 Sexual orientation Heterosexual (finding) [facility] Are you now , , , , never or living with a partner? [facility] How hard is it for y ou to pay for the very basics like food, housing, medical care, and heating Hard [facility] (I/We) worried wheth er (my/our) food would run out before (I/we) got money to buy more. Never true [facility] How often to you hav e a drink containing alcohol? 2-4 times a month [facility] How often do you hav e 6 or more drinks on 1 occasion? Monthly [facility] How hard is it for y ou to pay for the very basics like food, housing, medical care, and heating Very hard [facility] Do you feel stress - tense, restless, nervous, or anxious, or unable to sleep at night because your mind is troubled all the time - these days [OSQ] Very much [facility] Start: 09-28-2024 Tobacco use and exposure Former smokeless tobacco user [facility] Goals Date Patient Goal Desired Activity /State Functional Status Date Assessment Result Facility 05-16-2023 Functional status Ambulates [facility] Work Phone: 02-26-2015 Are you deaf, or do you have serious difficulty hearing No 02/26/2015 2:13 PM Nicole Harley LPN No [facility] 02-26-2015 Are you blind, or do you have serious difficulty seeing, even when wearing glasses No 02/26/2015 2:13 PM Nicole Harley LPN No [facility] 02-26-2015 Do you have serious difficulty walking or climbing stairs No 02/26/2015 2:13 PM Nicole Harley LPN No [facility] 02-26-2015 Do you have difficul ty dressing or bathing No 02/26/2015 2:13 PM Nicole Harley LPN No [facility] 02-26-2015 Because of a physica l, mental, or emotional condition, do you have difficulty doing errands alone such as visiting a physician's office or shopping No 02/26/2015 2:13 PM EDNicole Daniel LPN No [facility] Mental Status Date Assessment Result Facility 05-16-2023 Cognitive function Voice/Name [facility] Work Phone: 01-02-2023 Cognitive function Voice/Name [facility] Work Phone: 11-08-2021 Cognitive function Level Of Cons ciousness Awake;Alert;Appropriate;Fol lows Commands [facility] Work Phone: 02-26-2015 Because of a physica l, mental, or emotional condition, do you have serious difficulty concentrating, remembering, or making decisions No 02/26/2015 2:13 PM EDT Nicole Anglin LPN No [facility] Clinical Notes 11-01-2021 to 02-09-2025 Gary Hutton PA - 02/09/2025 2:32 PM EDTTelephone Encounter - Sheela Carrillo RN - 02/01/2025 2:38 PM EDTTelephone Encounter - Sheela Carrillo RN - 02/01/2025 2:38 PM EDTPatient Instructions Note Date & Type Note Facility 02-09-2025 Note HNO ID: [id number] Author: GARY HUTTON PA Service: ? Author Type: Physician Cafe Site Attendant Type: Progress Notes Filed: 02/09/2025 14:34 Note Text: URGENT CARE [facility] Bethany Montalvo is a 59 year old [...] No recent use of Pepto-Bismol. - Taking rusc-zbx-fztnzil cold and flu medication. - Vomiting early [...] out serious conditions. and Recording using ambient [employer] software for draft documentation of the visit was discussed with the patient/authorized tax representative; all questions welcomed and answered. Patient/authorized tax representative agreed to proceed Disposition The patient was other (comment) (sent to er). Procedures [facility] 02-09-2025 History of Present illness Narrative URGENT [...] No recent use of Pepto-Bismol. - Taking ntcb-tph-ocwxfcv cold and flu medication. - Vomiting early [...] rule out serious conditions. and Recording using [employer] software for draft documentation of the visit was discussed with the patient/authorized tax representative; all questions welcomed and answered. Patient/authorized tax representative agreed to proceed Disposition The patient was other (comment) (sent to er). Procedures documented in this encounter [facility] 02-01-2025 Telephone encounter Note The patient [...] once daily as needed. Sheela Carrillo RN [facility] 02-01-2025 Miscellaneous Notes The patient has [...] Sheela Carrillo RN documented in this encounter [facility] 01-19-2025 Telephone encounter Note The patient [...] two times a day. Sheela Carrillo RN [facility] 01-19-2025 Miscellaneous Notes The patient has [...] Sheela Carrillo RN documented in this encounter [facility] 12-22-2024 Telephone encounter Note Prescription Refill [...] Adeline Goss December 22, 2024 9:24 AM [facility] 12-22-2024 Miscellaneous Notes Prescription Refill Information [...] 2024 9:24 AM documented in this encounter [facility] 12-11-2024 Note HNO ID: [id number] Author: KEREN KWON APRN.HOME AND FAMILY LIVING PROFESSOR Service: ? Author Type: Nurse Practitioner Type: [...] Age of Onset Psychiatry Mother Heart Mother [place] 53 Heart Father [place] 51 Colon Cancer Father other (Heart stent) [...] malaise or fe (more content not included)... [facility] 11-24-2024 Telephone encounter Note Prescription Refill Information [...] Adeline Goss November 24, 2024 9:09 AM [facility] 11-24-2024 Miscellaneous Notes Prescription Refill Information [...] mouth two times a day. Adeline Love [facility] November 24, 2024 9:09 AM documented in this encounter [facility] 10-07-2024 Note HNO ID: [id number] Author: JUAREZ HERNÁNDEZ, DO Service: ? Author Type: Physician Type: Progress Notes Filed: 10/07/2024 14:09 Note Text: SERVICE DATE: October 07, 2024 PCP: Keren Kwon APRN.HOME AND FAMILY LIVING PROFESSOR Subjective Patient ID: Bethany is a 58 [...] Age of Onset Psychiatry Mother Heart Mother [place] 53 Heart Father [place] 51 Colon Cancer Father other (Heart stent) [...] and past medical (more content not included)... [facility] 10-07-2024 History of Present illness Narrative Associated Order(s): Additional Injections Post-Procedure Diagnose(s): Medial epicondylitis, right elbow Images from the original note were not included. SERVICE DATE: October 07, 2024 PCP: Keren Kwon APRN.HOME AND FAMILY LIVING PROFESSOR Subjective Patient ID: Bethany is a 58 [...] Age of Onset Psychiatry Mother Heart Mother [place] 53 Heart Father [place] 51 Colon Cancer Father other (Heart stent) [...] these instructions. Informed Consent Consent Obtained: Verbal Henderson Protocol SIGN IN TIME OUT 4 inch [...] X-ray on 07/09/2024. documented in this encounter [facility] 10-07-2024 Note HNO ID: [id number] Author: BETHANY OWENS MA Service: ? Author Type: Regional Dedicated Truck Driver Type: Progress Notes Filed: 10/07/2024 14:09 Note [...] work outside the home. X-ray on 07/09/2024. [facility] 10-02-2024 Telephone encounter Note The patient has [...] Hanna LPN October 02, 2024 9:08 AM [facility] 10-02-2024 Miscellaneous Notes The patient has [...] Hanna LPN October 02, 2024 9:08 AM documented in this encounter [facility] 09-29-2024 Telephone encounter Note Prescription Refill [...] Adeline Goss September 29, 2024 8:29 AM [facility] 09-29-2024 Miscellaneous Notes Prescription Refill Information [...] 2024 8:29 AM documented in this encounter [facility] 09-28-2024 Instructions Keren Kwon APRN.CHRISTIANA - 09/28/2024 4:10 PM EDT Increase the buspar to 7.5 mg three times daily. Increase the trazodone to 100 mg at bedtime. Schedule with ortho. Keep appt with GI. Recheck in 3 months. documented in this encounter [facility] 09-28-2024 Note HNO ID: [id number] Author: KEREN KWON APRN.CHRISTIANA Service: ? Author [...] Age of Onset Psychiatry Mother Heart Mother [place] 53 Heart Father [place] 51 Colon Cancer Father other (Heart stent) [...] tenderness or abnormalities. (more content not included)... [facility] 09-28-2024 History of Present illness Narrative This [...] Age of Onset Psychiatry Mother Heart Mother [place] 53 Heart Father [place] 51 Colon Cancer Father other (Heart stent) [...] with the plan. documented in this encounter [facility] 09-28-2024 History of Present illness Narrative Images from the original note were not included. [facility] PSA/PROSTATE EVALUATION HISTORY AND PHYSICAL EXAM PATIENT: Bethany Montalvo (58 year old) PCP: Keren Kwon APRN.CNP REFERRING Provider: Keren Kwon APRN.C* Consultation requested by Dr. Keren Kwon [address] [facility] [address] for an opinion regarding Elevated PSA and [...] Age of Onset Psychiatry Mother Heart Mother [place] 53 Heart Father [place] 51 Colon Cancer Father other (Heart stent) [...] spray paint and glue briefly, ages [age][address] [facility] in mid to late teens. TO LABS: [...] was discussed with the patient or authorized tax representative. The patient or authorized tax representative has agreed to proceed with the sensitive [...] Chris Devlin DNP, CHRISTIANA Department of Urology [facility] Verified name and date of . [...] Appointment with Chris. documented in this encounter [facility] 09-28-2024 Note HNO ID: [id number] Author: CHRIS DEVLIN APRN.MARLY VILLEDA Service: ? Author Type: Nurse Practitioner Type: Progress Notes Filed: 09/28/2024 13:06 Note Text: [facility] PSA/PROSTATE EVALUATION HISTORY AND PHYSICAL EXAM PATIENT: Bethany Montalvo (58 year old) PCP: Keren Kwon APRN.HOME AND FAMILY LIVING PROFESSOR REFERRING Provider: Keren Kwon APRN.C* Consultation requested by Dr. Keren Kwon [address] [facility] [address] for an opinion regarding Elevated PSA and [...] PAST SURGICAL HISTORY (more content not included)... [facility] 09-28-2024 Instructions Chris Devlin APRN.MARLY VILLEDA - [...] is not normal. Having said that, the [facility] uses a lower cut-off of 2.59, [...] Chris Devlin DNP, CHRISTIANA Department of Urology [facility] documented in this encounter [facility] 09-28-2024 Note HNO ID: [id number] Author: LINDSAY FONSECA LPN Service: ? Author [...] the procedure well. Plan: Appointment with Chris. [facility] 09-25-2024 Telephone encounter Note Noted. Chris Devlin APRN.MARLY VILLEDA [facility] Work Phone: 09-25-2024 Miscellaneous Notes Noted. Chris Devlin APRN.CNP, DNP Called patient regarding appointment on Saturday due to provider having a meeting between [phone]. Patient offered times to come into clinic and will come in at 1230 for appointment. Lindsay Fonseca LPN documented in this encounter [facility] 09-25-2024 Telephone encounter Note Called patient regarding appointment on Saturday due to provider having a meeting between [phone]. Patient offered times to come into clinic and will come in at 1230 for appointment. Lindsay Fonseca LPN [facility] 08-31-2024 Instructions Keren Kwon APRN.CNP - 08/31/2024 4:16 PM EST Start taking 25mg of Carvedilol Make an appointment with counseling center at [place] Follow up in 4 weeks or sooner as needed documented in this encounter [facility] 08-31-2024 Telephone encounter Note Pt notified of results/provider instructions at [facility] today. Donna Richey LPN [facility] 08-31-2024 Miscellaneous Notes Pt notified of [...] evaluation of this. documented in this encounter [facility] 08-31-2024 Note HNO ID: [id number] Author: KEREN KWON APRN.CHRISTIANA Service: ? Author [...] with psychiatric at the counseling center at [place] Is interested and agreeable to following with a counselor again at [place]. Left knee pain has been a lot [...] Age of Onset Psychiatry Mother Heart Mother [place] 53 Heart Father [place] 51 Colon Cancer Father Social History Tobacco [...] reviewed and negativ (more content not included)... [facility] 08-31-2024 History of Present illness Narrative This [...] with psychiatric at the counseling center at [place] Is interested and agreeable to following with a counselor again at [place]. Left knee pain has been a lot [...] Age of Onset Psychiatry Mother Heart Mother [place] 53 Heart Father [place] 51 Colon Cancer Father Social History Tobacco [...] spray paint and glue briefly, ages 8-9[address] [facility] in mid to late teens. TO REVIEW [...] with the plan. documented in this encounter [facility] 08-28-2024 Telephone encounter Note Phoned pt, no answer, unable to leave message d/t voicemail not set up yet. Donna Richey LPN [facility] 08-28-2024 Telephone encounter Note Can please let patient know that I received his ultrasound results. It was consistent with fatty liver. However, it also is showing that his liver and spleen are enlarged. I would like to have him see gastroenterology for further evaluation of this. [facility] 08-27-2024 History of Present illness Narrative [...] PATIENT PRESENTS WITH AN IMPLANTABLE OR ATTACHED TREE LOADER MEAT: No RADIOLOGY DEPARTMENT: Ultrasound PERIPHERAL IV DATA: Not applicable SIGNED BY: Trixei Palencia RDMS August 27, 2024 2:17 PM documented in this encounter [facility] 08-27-2024 Miscellaneous Notes Ultrasound of the liver shows fatty liver. Spleen and liver are slightly enlarged. Please follow diet low in saturated fat by eliminating fried foods and choosing only lean meat/skim dairy products. Also, avoid excessive use of glcx-bpg-fssmnaq products that contain ibuprofen, acetaminophen, naproxen, or alcohol. documented in this encounter [facility] 08-27-2024 Note HNO ID: [id number] Author: TRIXIE PALENCIA RDMS Service: ? Author Type: Metallurgical Engineering Teacher Type: Progress Notes Filed: 08/27/2024 14:17 Note [...] PATIENT PRESENTS WITH AN IMPLANTABLE OR ATTACHED TREE LOADER MEAT: No RADIOLOGY DEPARTMENT: Ultrasound PERIPHERAL IV DATA: Not applicable SIGNED BY: Trixie Palencia RDMS August 27, 2024 2:[address] [facility] 08-27-2024 Progress note Formatting of t his note might be different from the original. Ultrasound of the liver shows fatty liver. Spleen and liver are slightly enlarged. Please follow diet low in saturated fat by eliminating fried foods and choosing only lean meat/skim dairy products. Also, avoid excessive use of plcz-xdp-igtbvcc products that contain ibuprofen, acetaminophen, naproxen, or alcohol. [facility] 08-24-2024 Instructions Keren Kwon APRN.CNP - 08/24/2024 12:13 PM EST Increase the carvedilol to 12.5 mg twice daily. Restart the lisinopril 10 mg daily. Recheck in 1 week. documented in this encounter [facility] 08-24-2024 Note HNO ID: [id number] Author: KEREN KWON APRN.HOME AND FAMILY LIVING PROFESSOR Service: ? Author Type: Nurse Practitioner Type: [...] Age of Onset Psychiatry Mother Heart Mother [place] 53 Heart Father [place] 51 Colon Cancer Father Social History Tobacco [...] Reports significantly improv (more content not included)... [facility] 08-24-2024 History of Present illness Narrative This [...] Age of Onset Psychiatry Mother Heart Mother [place] 53 Heart Father [place] 51 Colon Cancer Father Social History Tobacco [...] Keren Kwon APRN.CHRISTIANA documented in this encounter [facility] 08-21-2024 Telephone encounter Note Pt notified. He verbalized understanding. Donna Richey LPN [facility] 08-21-2024 Miscellaneous Notes Pt notified. He [...] Keren Kwon APRN.CHRISTIANA documented in this encounter [facility] 08-21-2024 Telephone encounter Note I sent in another script for the prednisone. If using a lot of tylenol that could also lead to an elevation in the liver enzymes. However, we should still get the imaging. Please keep appt for Saturday so we can recheck the knee. [facility] 08-20-2024 Telephone encounter Note Called and [...] completed them at least 3 days ago. [facility] 08-20-2024 Miscellaneous Notes Called and scheduled [...] 2024 1:14 PM documented in this encounter [facility] 08-20-2024 Telephone encounter Note Attempted to reach pt by phone and no voicemail set up. Try later. Jaret Love LPN [facility] 08-19-2024 Telephone encounter Note There should be a couple days left of the medication. If the symptoms are returning, we should have him back in because we are likely going to need to move forward with getting an MRI. Keren Kwon APRN.HOME AND FAMILY LIVING PROFESSOR [facility] 08-19-2024 Telephone encounter Note MC message sent. Donna Richey LPN [facility] 08-19-2024 Telephone encounter Note Prescription Refill [...] Richey LPN August 19, 2024 1:14 PM [facility] 08-14-2024 Telephone encounter Note TC to pt, no answer, unable to leave message. [facility] 08-14-2024 Telephone encounter Note Can please let [...] the knee feeling since on the prednisone? [facility] 08-12-2024 Telephone encounter Note Pt notified of results/provider response. He verbalized understanding. Please assist pt with scheduling Urology appt. Donna Richey LPN [facility] 08-12-2024 Telephone encounter Note Can please let [...] tests and the xray results. Keren Kwon APRN.HOME AND FAMILY LIVING PROFESSOR [facility] 08-11-2024 History of Present illness Narrative [...] PATIENT PRESENTS WITH AN IMPLANTABLE OR ATTACHED TREE LOADER MEAT: No RADIOLOGY DEPARTMENT: General X-ray: Exam(s) Completed: Lower Extremity X-Ray(s): Knee, AP / Lat / Tunne / Merchant Left PERIPHERAL IV DATA: Not applicable SIGNED BY: RT Satnam(Herman) August 11, 2024 2:10 PM documented in this encounter [facility] 08-11-2024 Note HNO ID: [id number] Author: WENDY ROBLES RT(R) Service: ? Author Type: Metallurgical Engineering Teacher Type: Progress Notes Filed: 08/11/2024 14:34 Note [...] PATIENT PRESENTS WITH AN IMPLANTABLE OR ATTACHED TREE LOADER MEAT: No RADIOLOGY DEPARTMENT: General X-ray: Exam(s) Completed: Lower Extremity X-Ray(s): Knee, AP / Lat / Tunne / Merchant Left PERIPHERAL IV DATA: Not applicable SIGNED BY: Wendy Robles, RT(R) August 11, 2024 2:[address] [facility] 08-11-2024 Instructions Keren Kwon APRN.CHRISTIANA - 08/11/2024 [...] on this medication. documented in this encounter [facility] 08-11-2024 Note HNO ID: [id number] Author: KEREN KWON APRN.CHRISTIANA Service: ? Author Type: Nurse Practitioner Type: Progress Notes Filed: 08/11/2024 14:07 Note Text: This is a 58 year old male who presents today with: Patient presents with: ER F/U: [facility] ER f/u 07/23/24 dx: L knee pain HISTORY OF PRESENT ILLNESS: Bethany Montalvo is a 58 year old male. Patient presents with: ER F/U: [facility] ER f/u 07/23/24 dx: L knee [...] Age of Onset Psychiatry Mother Heart Mother [place] 53 Heart Father [place] 51 Colon Cancer Father Social History Tobacco [...] and patient guarding (more content not included)... [facility] 08-11-2024 History of Present illness Narrative This is a 58 year old male who presents today with: Patient presents with: ER F/U: [facility] ER f/u 07/23/24 dx: L knee pain HISTORY OF PRESENT ILLNESS: Bethany Montalvo is a 58 year old male. Patient presents with: ER F/U: [facility] ER f/u 07/23/24 dx: L knee [...] Age of Onset Psychiatry Mother Heart Mother [place] 53 Heart Father [place] 51 Colon Cancer Father Social History Tobacco [...] spray paint and glue briefly, ages 8-9[address] [facility] in mid to late teens. TO EXAM: [...] as needed for worsening/no improvement. Keren Kwon APRN.HOME AND FAMILY LIVING PROFESSOR documented in this encounter [facility] 08-07-2024 Telephone encounter Note Pt notified. He verbalized understanding. Donna Richey LPN [facility] 08-07-2024 Miscellaneous Notes Pt notified. He [...] Orders are in. documented in this encounter [facility] 08-07-2024 Telephone encounter Note Can please [...] plants. 5. Limit alcohol. Orders are in. [facility] 07-21-2024 Telephone encounter Note The following approved medication requests have been transmitted electronically. Requested Prescriptions Pending Prescriptions Disp Refills busPIRone (BUSPAR) 5 mg tablet 90 tablet 1 Sig: Take 1 tablet by mouth three times a day as needed. Kathe Pierre APRN.CNP [facility] 07-21-2024 Miscellaneous Notes The following approved [...] you. Melyssa Ruiz. documented in this encounter [facility] 07-21-2024 Telephone encounter Note Change of pharmacy [facility] 07-21-2024 Telephone encounter Note Patient has [...] found Please advise. Thank you. Melyssa Ruiz. [facility] 07-13-2024 History of Present illness Narrative [...] PATIENT PRESENTS WITH AN IMPLANTABLE OR ATTACHED TREE LOADER MEAT: No RADIOLOGY DEPARTMENT: General X-ray: Exam(s) Completed: Chest X-Ray PERIPHERAL IV DATA: Not applicable SIGNED BY: PAOLA Andino) July 13, 2024 2:00 PM documented in this encounter [facility] 07-13-2024 Note HNO ID: [id number] Author: BULMARO PAPPAS RT(Herman) Service: Radiology Author [...] PATIENT PRESENTS WITH AN IMPLANTABLE OR ATTACHED TREE LOADER MEAT: No RADIOLOGY DEPARTMENT: General X-ray: Exam(s) Completed: Chest X-Ray PERIPHERAL IV DATA: Not applicable SIGNED BY: Bulmaro Pappas, RT(R) July 13, 2024 2:[address] [facility] 07-13-2024 Note HNO ID: [id number] Author: ROSA WADE APRN.CHRISTIANA Service: ? Author Type: Nurse Practitioner Type: Progress Notes Filed: 07/13/2024 14:36 Note Text: This note was created using [employer]ove[employer]. Subjective Bethany Montalvo is a 58 year [...] seem more viral in origin and recommended pwgh-gtt-livdjas cough and cold medication and follow-up with PCP. - XR CHEST 2V FRONTAL/LAT - COVID AND INFLUENZA A/B AND RSV PCR, ROUTINE Rosa Wade APRN.CHRISTIANA [facility] 12-23-2024 History of Present illness Narrative This note was created using [employer]. Subjective Bethany Montalvo is a 58 year [...] seem more viral in origin and recommended byxx-wrb-xvmlork cough and cold medication and follow-up with PCP. - XR CHEST 2V FRONTAL/LAT - COVID & INFLUENZA A/B & RSV PCR, ROUTINE Rosa Wade APRN.CHRISTIANA documented in this encounter [facility] 07-13-2024 Note HNO ID: [id number] Author: ?, ?, ? Service: ? Author Type: ? Type: Progress Notes Filed: 07/13/2024 13:34 Note Text: POPULATION HEALTH NAVIGATION OUTREACH Action/[facility] [place] Support: Called pt to schedule an appt [...] Chico Gonzalez July 13, 2024 1:[address] [facility] 07-13-2024 History of Present illness Narrative POPULATION HEALTH NAVIGATION OUTREACH Action/[facility] Support: Called pt to schedule an appt [...] 2024 1:34 PM documented in this encounter [facility] 07-13-2024 Note Patient Outreach (NE TNAV) BETHANY MONTALVO ([id number]) 1965 M Date Time Provider Department 07/13/24 NO PCP NETNAV During your visit today, we recorded the following information about you: Chico Gonzalez 07/13/2024 1:34 PM Signed POPULATION HEALTH NAVIGATION OUTREACH Action/[facility] Support: Called pt to schedule an appt [...] Date Reviewed: 07/09/2024 Reviewed by: Desmond Duncan APRN.HOME AND FAMILY LIVING PROFESSOR - Fully Assessed Prescriptions as of 07/13/2024 [...] Status:Closed by CHICO GONZALEZ Prachi on 07/13/[address] [facility] 07-12-2024 Telephone encounter Note Pt was notified of the results. Pt verbalized understanding. Ariela Avelar MA [facility] 07-12-2024 Miscellaneous Notes Pt was notified [...] with orthopedics if symptoms persist. Desmond Duncan APRN.HOME AND FAMILY LIVING PROFESSOR documented in this encounter [facility] 07-10-2024 Telephone encounter Note Unable to reach pt on 2nd attempt due to no VM being set up. Sear Claire LPN [facility] 07-10-2024 Telephone encounter Note Pharmacy just filled last script. This would be for future. [facility] 07-10-2024 Miscellaneous Notes Pharmacy just filled [...] 2024 11:52 AM documented in this encounter [facility] 07-10-2024 Telephone encounter Note Prescription Refill [...] Estrella Goss July 10, 2024 11:52 AM [facility] 07-09-2024 Telephone encounter Note TC no answer. Unable to leave VM d/t mailbox not set up. Please try again later. ERIC Capone [facility] 07-09-2024 Telephone encounter Note Please inform patient that x-ray is normal. Follow-up with orthopedics if symptoms persist. Desmond Duncan APRN.CNP [facility] 07-09-2024 History of Present illness Narrative [...] PATIENT PRESENTS WITH AN IMPLANTABLE OR ATTACHED TREE LOADER MEAT: No RADIOLOGY DEPARTMENT: General X-ray: Exam(s) Completed: Upper Extremity X-Ray(s): Elbow, right PERIPHERAL IV DATA: Not applicable SIGNED BY: RT Satnam(Herman) July 09, 2024 5:07 PM documented in this encounter [facility] 07-09-2024 Note HNO ID: [id number] Author: WENDY ROBLES RT(Herman) Service: ? Author Type: Metallurgical Engineering Teacher Type: Progress Notes Filed: 07/09/2024 17:16 Note [...] PATIENT PRESENTS WITH AN IMPLANTABLE OR ATTACHED TREE LOADER MEAT: No RADIOLOGY DEPARTMENT: General X-ray: Exam(s) Completed: Upper Extremity X-Ray(s): Elbow, right PERIPHERAL IV DATA: Not applicable SIGNED BY: RT Satnam(R) July 09, 2024 5:[address] [facility] 07-09-2024 Note HNO ID: [id number] Author: DESMOND DUNCAN APRN.HOME AND FAMILY LIVING PROFESSOR Service: ? Author Type: Nurse Practitioner Type: Progress Notes Filed: 07/09/2024 18:04 Note Text: Subjective HPI Nontoxic-appearing male presents urgent care chief complaint sore throat body aches chills headache cough. Duration of symptoms few days. Associated symptoms listed above. Additionally has had right elbow injury for about 1 week. States he struck his elbow on a rail at work. Presents today for evaluation. Dovjf-jwjv-lbsnofdr. Denies any other injuries. OTC medications none [...] Age of Onset Psychiatry Mother Heart Mother [place] 53 Heart Father [place] 51 Colon Cancer Father Social History Tobacco [...] Effort: Pulmonary effort (more content not included)... [facility] 07-09-2024 History of Present illness Narrative Subjective HPI Nontoxic-appearing male presents urgent care chief complaint sore throat body aches chills headache cough. Duration of symptoms few days. Associated symptoms listed above. Additionally has had right elbow injury for about 1 week. States he struck his elbow on a rail at work. Presents today for evaluation. Vbrxh-ushp-vmyobtaa. Denies any other injuries. OTC medications none [...] Age of Onset Psychiatry Mother Heart Mother [place] 53 Heart Father [place] 51 Colon Cancer Father Social History Tobacco [...] of care. This note was generated using InCast software. It may contain errors in wording, punctuation, or spelling. Desmond Duncan APRN.CHRISTIANA documented in this encounter [facility] 06-23-2024 Telephone encounter Note Faxed as requested. Jaret Paulino MA [facility] 06-23-2024 Miscellaneous Notes Faxed as requested. Jaret Paulino MA Please fax GI consult to Dr. Lovell at [facility]. Thank you, Alma Delia Garza APRN.HOME AND FAMILY LIVING PROFESSOR documented in this encounter [facility] 06-22-2024 Telephone encounter Note Please fax GI consult to Dr. Lovell at [facility]. Thank you, Alma Delia Garza APRN.HOME AND FAMILY LIVING PROFESSOR [facility] Work Phone: 06-22-2024 Nurse Note REVIEW [...] N/A Last Colonoscopy: 01/12/2019 Leanna Wilburn RN [facility] 06-22-2024 Nurse Note REVIEW OF SYSTEMS: General: [...] Leanna Wilburn RN documented in this encounter [facility] 06-22-2024 History of Present illness Narrative HISTORY AND PHYSICAL Bethany Montalvo : 1965 REFERRING PHYSICIAN: Keren Prescott [facility] [address] CHIEF COMPLAINT: Patient presents with: Consult: colonoscopy [...] & colonoscopy 12/[address] Payton at [facility]. Sedation: MAC EGD Impression: -Normal examined [...] Age of Onset Psychiatry Mother Heart Mother [place] 53 Heart Father [place] 51 Colon Cancer Father Social History Tobacco [...] entered by the nurse and reviewed by mo Nursing Notes: Leanna Wilburn RN 06/22/2024 4:06 [...] chooses MAC anesthesia. We discussed traveling to [place] for this. He states he wants to stay local. I discussed the risk of under sedation in the ASC d/t his alcohol use and he declined stating he wants to be completely out. I will fax a referral to [facility], if it doesn't work out then we will plan for [facility] in [place]. He is agreeable. Bethany was counseled that [...] Delia Garza APRN.CHRISTIANA documented in this encounter [facility] 06-22-2024 Note HNO ID: [id number] Author: ALMA DELIA GARZA APRN.CNP Service: ? Author Type: Nurse Practitioner Type: Progress Notes Filed: 06/22/2024 16:31 Note Text: HISTORY AND PHYSICAL Bethany Montalvo : 1965 REFERRING PHYSICIAN: Keren Kwon [address] [facility] [address] CHIEF COMPLAINT: Patient presents with: Consult: colonoscopy [...] AND colonoscopy 12/[address] Payton at [facility]. Sedation: MAC EGD Impression: -Normal examined [...] Age of Onset Psychiatry Mother Heart Mother [place] 53 Heart Father [place] 51 Colon Cancer Father Social History Tobacco Use Smoking status: Former Current packs/day: 0.00 Average packs/day: 0.5 packs/day for 30.4 years (15.2 ttl pk-yrs) Types: Cigarettes Start date: 12/30/1983 Quit date: 05/30/2014 Years since quittin (more content not included)... [facility] 06-12-2024 Instructions Keren Kwon APRN.CNP - 06/12/2024 3:29 PM EST Get labs. Schedule w/ gen surgery. Schedule carotid ultrasound. Recheck in 6 months. documented in this encounter [facility] 06-12-2024 Note HNO ID: [id number] Author: KEREN KWON APRN.CNP Service: ? 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 [employer] [facility] [facility] in mid to late teens. TO EXAM: [...] AGE 6MO-64YR, TRIVALENT (more content not included)... [facility] 06-12-2024 History of Present illness Narrative This [...] CAD: Denies any chest pain/SOB. Following with [facility]. Last appt in September. GERD: [...] Age of Onset Psychiatry Mother Heart Mother [place] 53 Heart Father [place] 51 Colon Cancer Father Social History Tobacco [...] as needed for worsening/no improvement. Keren Kwon APRN.HOME AND FAMILY LIVING PROFESSOR documented in this encounter [facility] 05-15-2023 Progress note Note Date/Time May 15, 2023 11:24am [facility] Medical Records Department [address] [place] [address] Progress Note - Hospitalist 05/15/23 1120 MR#: [id number] Acct: [id number] Name: BETHANY MONTALVO Rep #:[id number] : 1965 57 From: Shakeel rendon MD PCP: Keren Kwon SOUS CHEF-C Status:ADM I N Location: [place] [address] Subjective Subjective CIWA score of 2 this [...] (MDRD) Non-Af 74, BUN/Creatinine Ratio 7.3 L, Movnnff09, Calcium 7.7 L, Total Bilirubin 1.60 H, [...] DVT: Ambulation Charges/Coding Visit Charges Inpatient E&M: 56680 Subs Hosp L2 05/15/23 1124 <Electronically signed by Shakeel Valera MD> Cosigner Signature (if applicable): CC: ~ Signed [facility] Work Phone: 1(238) 764-389810-24-2023 Progress note Author Shakeel Valera [facility] May 14, 2023 10:17am Note Date/Time May 14, 2023 1 0:17am [facility] System Medical Records Department [address] [place] [address] Progress Note - Hospitalist 05/14/23 1009 MR#: [id number] Acct: [id number] Name: BETHANY MONTALVO Rep #:[id number] : 1965 57 From: Shakeel rendon MD PCP: Keren Kwon NP-C Status:ADM I N Location: [facility] OV389-4 Subjective Subjective Resting comfortably, no issues overnight. [...] 72.9 H, Lymph % (Auto) 18.4 L, [place] % (Auto) 7.6, Eos % (Auto) 0.3, [...] Clarity Clear, Urine pH 5.0, Ur Specific [place] 1.020, Urine Protein 100 H, Urine Glucose [...] % (Auto) 55.9, Lymph % (Auto) 34.1, [place] % (Auto) 7.6, Eos % (Auto) 1.8, [...] DVT: Ambulation Charges/Coding Visit Charges Inpatient E&M: 30597 Subs Hosp L2 05/14/23 1017 <Electronically signed by Shakeel Valera MD> Cosigner Signature (if applicable): CC: ~ Signed [facility] Work Phone: 1(506) 375-567610-23-2023 History and physical note Author Lorena Bennett [facility] May 13, 2023 8:28pm Note Date/Time May 13, 2023 4 :17pm [facility] System Medical Records Department [address] [place] [address] H&P Exam - Hospitalist 05/13/23 1615 MR#: [id number] Acct: [id number] Name: BETHANY MONTALVO Rep #:[id number] : 1965 57 From: Lornea Bennett DO PCP: XUAN Armendariz Status:ADM I N Location: [facility] [id number] HPI - General General Date of Admission: 05/13/23 Date of Service: 05/13/23 Chief Complaint: Acute alcohol withdrawal/nausea vomiting HPI Narrative BETHANY MONTALVO, is a 57 M who presented to the emergency department at [facility] on 05/13/2023 with about 3 to 4 [...] a temperature of 96.8, heart rate was [id number] however with IV fluids he has trended [...] Anxiety Asthma Atherosclerosis of coronary artery of [place] heart without angina pectoris Chest pain Chest [...] 72.9 H, Lymph % (Auto) 18.4 L, [place] % (Auto) 7.6, Eos % (Auto) 0.3, [...] Clarity Clear, Urine pH 5.0, Ur Specific [place] 1.020, Urine Protein 100 H, Urine Glucose [...] Full code Charges/Coding Visit Charges Inpatient E&M: 63144 Init Hosp L2 05/13/232027 <Electronically signed by Lorena Bennett DO> Cosigner Signature (if applicable): CC: XUAN Kwon; Dr. Lorena Bennett DO~ Signed [facility] Work Phone: 1(325) 158-413110-23-2023 Discharge summary Author [facility] May 13, 2023 5:15pm Note Date/Time May 13, 2023 1 1:19am [facility] Medical Records Department [address] [place] [address] Emergency Department Summary 05/13/23 MR#: [id number] Acct: [id number] Name: BETHANY MONTALVO Rep #:[id number] : 1965 57 From: Jaun GOVEA PCP: XUAN Armendariz Status:ADM I N Location: [facility] [id number] HPI <XUAN Nicole - Last Filed: 05/13/23 [...] muscle cramps and is here for evaluation. [facility] <XUAN Nicole - Last Filed: 05/13/23 16:30> [facility] Medical History Alcohol abuse Alcohol intoxication Atherosclerosis of coronary artery of [place] heart without angina pectoris Chest pain Chest [...] <XUAN Nicole - Last Filed: 05/13/23 16:30> [facility] Lab Data Labs: Laboratory Results - last 24 hr 05/13/23 05/13/23 05/13/23 11:35 13:00 15:50 WBC 6.4 RBC 4.93 Hgb 16.1 Hct 47.8 MCV 97.0 H MCH 32.7 H MCHC 33.7 RDW Std Deviation 44.6 H RDW Coeff of Rosalee 12.4 Plt Count 111 L MPV 9.9 Immature Gran % (Auto) 0.300 Neut % (Auto) 72.9 H Lymph % (Auto) 18.4 L [place] % (Auto) 7.6 Eos % (Auto) 0.3 [...] Clarity Clear Urine pH 5.0 Ur Specific [place] 1.020 Urine Protein 100 H Urine Glucose [...] Tucker, DO - Last Filed: 05/13/23 17:15> [facility] Lab Data Labs: Laboratory Results - last 24 hr 05/13/23 05/13/23 05/13/23 11:35 13:00 15:50 WBC 6.4 RBC 4.93 Hgb 16.1 Hct 47.8 MCV 97.0 H MCH 32.7 H MCHC 33.7 RDW Std Deviation 44.6 H RDW Coeff of Rosalee 12.4 Plt Count 111 L MPV 9.9 Immature Gran % (Auto) 0.300 Neut % (Auto) 72.9 H Lymph % (Auto) 18.4 L [place] % (Auto) 7.6 Eos % (Auto) 0.3 [...] Clarity Clear Urine pH 5.0 Ur Specific [place] 1.020 Urine Protein 100 H Urine Glucose [...] Acidosis, lactic Disposition Disposition: Acute Care Hospital [facility] Discharge Date/Time: 05/13/23 17:11 What to do if you have Problems For any increased pain, shortness of breath, bleeding, nausea or vomiting, chest pain, or any unexpected problems, contact your Primary Care Provider. Call [facility] ([phone]) or report to the closest Emergency Room. Call 911 if necessary. 05/13/23 1630 <Electronically signed by Jaun GOVEA> Cosigner Signature (if applicable): 05/13/23 1715 <Electronically signed by Maggy Tucker DO> CC: XUAN Kwon ~ Signed [facility] Work Phone: 1(624) 641-968509-19-2023 Miscellaneous Notes* Telephone Encounter - India Coleman [...] primary care provideror schedule a visit with [facility]. India Coleman RN [facility] History of Present illness Narrative* Henry [...] cardiology. Henry Morrow MD documented in this encounterBarn[facility]ville Hospital09-12-2023 Procedure [facility]07-03-2023 Instructions* Patient Instructions* Keren wKon APRN.CNP - 01/21/2023 3:12 PM EDT Get labwork. Restart the amlodipine 5 mg daily. Reschedule the stress testing. Recheck in a month. documented in this encounterBarnesville Hospital07-03-2023 History of Present illness Narrative* Keren Kwon APRN.CNP - 01/21/2023 2:49 PM EDT This is a 57 year old male who presents today with: Patient presents with: ER F/U: [facility] ER 01/02/23 dx: viral gastroenteritis; pulmonary nodule HISTORY OF PRESENT ILLNESS: Bethany Montalvo is a 57 year old male. Patient presents with: ER F/U: [facility] ER 01/02/23 dx: viral gastroenteritis; pulmonary [...] CRANIO/MAXILLO-FACIAL SURGERY 1989 orbital blow out fracture/ Gorod ESOPHAGOGASTRODUODENOSCOPY TRANSORAL DIAGNOSTIC 01/12/2019 EGD PTCA SNGL [...] Age of Onset Psychiatry Mother Heart Mother [place] 53 Heart Father [place] 51 Colon Cancer Father Social History Tobacco [...] improvement. Keren Kwon APRN.CHRISTIANA documented in this encounterBarnesville Hospital06-07-2023 Miscellaneous Notes* Telephone Encounter - Richelle Demarco LPN - 12/26/2022 5:40 PM EDT Patient notified of results, verbalizes understanding of instructions. Pt stated he has been drinking above moderate alcohol. And is taking his magnesium daily. Richelle Demarco LPN * Telephone Encounter - Keren [...] week. Orders are in. documented in this encounterBarnesville Hospital04-17-2023 Instructions* Patient Instructions* Keren Kwon APRN.CNP - 11/05/2022 2:12 PM EDT Get fasting labwork. Follow-up with cardiology. Restart lisinopril. Recheck in a month. Schedule carotid ultrasound. Check with insurance re: shingrix and pneumonia shot. documented in this encounterBarnesville Hospital04-17-2023 History of Present illness Narrative* Keren [...] friend. 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 Likes his job -- has been there since last year. Trying to get back on track. Planning on attending AA meetings. CAD Has appt 12/21 with [facility]. No new heartpain/sob. HTN: Patient is [...] Age of Onset Psychiatry Mother Heart Mother [place] 53 Heart Father [place] 51 Colon Cancer Father Social History Tobacco [...] APRN.CHRISTIANA This note was partially generated using InCast voice recognition system. Note was reviewed for accuracy. There may be minor misspellings or grammar miscues with InCast voice recognition. 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 [employer] inmid to late teens. TO ROS Objective [...] TABLET Ziggy Mobley APRN.CNP documented in this encounterBarnesville Hospital11-15-2022 Instructions* Patient Instructions* Rebecca Devries APRN.CNP - 06/05/2022 1:57 PM EST covid test ordered You will be notified in 12-24 hours, results available on [employer] [facility] isolation until covid results are back [...] breath, inability to swallow. documented in this encounterBarnesville Hospital11-15-2022 History of Present illness Narrative* Rebecca Devries APRN.CNP - 06/05/2022 1:56 PM EST Subjective The history is provided by the patient. No speech language pathology assistant was used. HPI Bethany Montalvo is a [...] have confirmed and edited as necessary, the [facility] Review of Systems Constitutional: Positive for [...] in 12-24 hours with results, available [facility] Diagnosis and treatment plan were discussed and questions were answered to the patient's satisfaction. Pt acknowledged understanding of concepts and follow up plan. Specific signs and symptoms that would indicate the need for higher level of care were discussed indetail warranting prompt ER evaluation. Rebecca Devries APRN.CHRISTIANA documented in this encounterBarnesville Hospital09-07-2022 Miscellaneous Notes* Telephone Encounter - Richelle Demarco LPN - 03/28/2022 3:18 PM EDT Patient phones requesting refills as follows: Requested Prescriptions Pending Prescriptions Disp Refills cyclobenzaprine (FLEXERIL) 10 mg tablet 30 tablet 0 Sig: Take 1 tablet by mouth once daily as needed. KRISTEN-02/23/22 Labs-02/21/22 NOV-none med filled 02/23/22 Please review and advise. Richelle Demarco LPN documented in this encounterBarnesville Hospital08-05-2022 Miscellaneous Notes* Telephone Encounter - Natividad Salas Cma - 02/23/2022 9:59 AM EDT Called and lab was added Natividad Salas Cma * Telephone Encounter - Mikhail Mancia MD - 02/23/2022 8:33 AM EDT Ck was normal.. it appears lipid was ordered for same but I do not think it was done? If not done, can it be added on? documented in this encounterBarnesville Hospital08-05-2022 Instructions* Patient Instructions* Keren Kwon APRN.CNP - 02/23/2022 9:42 AM EDT 1. Schedule w/ cardiology. 2. Start the doxycycline -- twice daily X 10 days. 3. Use the cream to the arm twice daily for up to 2 weeks. 4. Recheck in 1 month. documented in this encounterBarnesville Hospital08-05-2022 History of Present illness Narrative* Keren [...] Age of Onset Psychiatry Mother Heart Mother [place] 53 Heart Father [place] 51 Colon Cancer Father Social History Tobacco [...] agrees with the plan. documented in this encounterBarnesville Hospital08-01-2022 History of Present illness Narrative* Bulmaro [...] 19, 2022 3:29 PM documented in this encounterBarnesville Hospital08-01-2022 History of Present illness Narrative* Ziggy Mobley APRN.HOME AND FAMILY LIVING PROFESSOR - 02/19/2022 3:25 PM EDT Subjective HPI [...] Age of Onset Psychiatry Mother Heart Mother [place] 53 Heart Father [place] 51 Colon Cancer Father Social History Tobacco [...] plan Ziggy Mobley APRN.CNP documented in this encounterBarnesville Hospital04-27-2022 Instructions* Patient Instructions* Keren Kwon APRN.CNP - 11/15/2021 2:16 PM EDT 1. Continue the same medications. 2. Get the previously ordered testing/referrals scheduled. 3. Keep advancing fluids and return next week -- well hydrated to repeat labs. 4. Recheck in a month -- sooner if needed. documented in this encounterBarnesville Hospital04-27-2022 History of Present illness Narrative* Keren [...] Age of Onset Psychiatry Mother Heart Mother [place] 53 Heart Father [place] 51 Colon Cancer Father Social History Tobacco [...] needed for worsening/no improvement. Keren Kwon APRN.CHRISTIANA The patient indicates understanding of these issues and agrees with the plan. This note was partially generated using InCast voice recognition system. Note was reviewed for accuracy. There may be minor misspellings or grammar miscues with Dragon voice recognition. documented in this encounterBarnesville Hospital04-22-2022 Miscellaneous Notes* Telephone Encounter - Donna Richey LPN - 11/10/2021 9:38 AM EDT See other phone note from 11/09. Pt notified of provider instructions. He was supposed to return to lab for redraw. No labs drawn at this time. Donna Richey LPN * Telephone Encounter - Richelle Demarco LPN - 11/09/2021 3:13 PM EDT Obtained [facility] reports and put on her desk for tomorrow. She is out today. 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 Paolo Wesley at [facility] regarding patient visit in EMERGENCY DEPARTMENT. He has a potassium of 5.1 in the EMERGENCY DEPARTMENT as well as a creatinine serum of 1.56. He wastreated with IVF and d/c home to follow up with primary care team. FYI to Keren Kwon CNP to address with patient Jared Elias DO documented in this encounterBarnesville Hospital04-21-2022 Miscellaneous Notes* Telephone Encounter - Omega Lennon - 11/09/2021 2:12 PM EDT Patient notified. Patient will be into lab before 5 today to repeat. * Telephone Encounter - Rolando Young PA-C - 11/09/2021 1:29 PM EDT Unfortunately yes. Thanks, Kurt Young PA-C * Telephone Encounter - Omega Lennon [...] 11/09/2021 12:13 PM EDT Please advise from [employer] message: Needs to come in today to [...] vegetables (turnip greens, spinach, [place] lettuce, asparagus, [place] sprouts, broccoli) Beans. Peanuts. [place] seeds. Fresh fruits, fruit juices. Whole grains. [...] other numbers look good. documented in this encounterBarnesville Hospital04-20-2022 Miscellaneous Notes* Telephone Encounter - Haris Dawkins RN - 11/08/2021 7:51 PM EDT Kerrie, from the [place] [facility], is calling seeking whomever is aviation engineer for Keren Kwon. CHRISTIANA Conferenced through to the affiliate line for further assistance. documented in this [facility]04-20-2022 Miscellaneous Notes* Telephone Encounter - Donna Richey [...] treatment. Keren Kwon APRN.CNP documented in this encounterBarnesville Hospital04-13-2022 Instructions* Patient Instructions* Keren Kwon APRN.CNP - 11/01/2021 4:07 PM EDT 1. Get fasting labs. 2. Schedule carotid ultrasound. 3. Schedule stress test. 4. Schedule w/ GI. 5. Schedule with cardiology. 6. Schedule w/ psychiatry. 7. Recheck in 2-3 weeks. 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 Patient presents with: Physical: needs medication refills; c/o [facility] covid effects, had covid 3x's; was not [...] Age of Onset Psychiatry Mother Heart Mother [place] 53 Heart Father [place] 51 Colon Cancer Father Social History Tobacco [...] MG TABLET - CONSULT TO CARDIOLOGY - SC CARDIAC PERF STRESS/PHARM - PRE-PROCEDURE & PRE-OPERATIVE COVID - LEXISCAN 0.4 MG/5 ML INTRAVENOUS SYRINGE - INSERT IV (CA,PR) - IV DISCONTINUE He previously followed with with [facility], however he would like to get established with [place]. Referral placed. We will go ahead and [...] plan. This note was partially generated using InCast voice recognition system. Note was reviewed for accuracy. There may be minor misspellings or grammar miscues with InCast voice recognition. I spent a total of 60 minutes on the date of the service which included preparing to see the patient, [id number] patient care, completing clinical documentation, obtaining and/or reviewing separately obtained history, performing a medically appropriate examination, counseling and educating the pat ient/family/caregiver, ordering medications, tests, or procedures and care coordination (not separately reported). documented in [facility] encounterDunlap [facility] summary Author Shakeel Valera [facility] May 16, 2023 11:11am Note Date/Time May 16, 2023 1 1:08am [facility] Medical Records Department [address] [place] [address] Instructions for Home/Discharge Instructions 05/16/23 1108 MR#: [id number] Acct: [id number] Name: BETHANY MONTALVO Rep #:[id number] : 1965 57 From: Shakeel rendon MD [...] on 05/20/23. Referrals / Follow Up: Haagen,Keren SOUS CHEF, SOUS CHEF-C [Primary Care Provider] - Within 1 Week Disposition Disposition (needs filled in before D/C Order can be placed): Home, Self Care 05/16/23 1111<Electronically signed by Shakeel Valera MD>Shakeel Valera MD CC: XUAN Kwon; Dr. Lorena Bennett, DO ~ Signed [facility] Work Phone: Evaluation note* Diagnosis Chest pain, [...] unspecified cardiovascular conditions documented in this encounter [facility] noteNo assessment information availableWMansfield Hospital Work Phone: Evaluation note* Diagnosis Serum potassium elevated- Primary Hyperpotassemia NSTEMI (non-ST elevated myocardial infarction) (HCC) Acute myocardial infarction, subendocardial infarction, episode of care unspecified Hypertriglyceridemia Pure hyperglyceridemia Hyperlipidemia, mixed Mixed hyperlipidemia documented in this encounter [facility]* Diagnosis Upper back pain- Primary Function kidney decreased Unspecified disorder of kidney and ureter documented in this encounter [facility]* Diagnosis Acute cough- Primary Hypertension, essential Unspecified essential hypertension URI, acute Acute upper respiratory infections of unspecified site documented in this encounter [facility]* Diagnosis Sinobronchitis- Primary Unspecified sinusitis [...] to unspecified cause documented in this encounter [facility]* Diagnosis Anxiety and depression Dysthymic disorder Hypertension, essential Unspecified essential hypertension Hypertriglyceridemia Pure hyperglyceridemia Chronic alcohol abuse Alcohol abuse, unspecified 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 Acute right-sided low back pain without sciatica [facility] Diagnosis Body aches- Primary Generalized pain Flu-like symptoms Other general symptoms [facility] Diagnosis Foot pain, right- Primary Pain in limb [facility] Diagnosis Hypertension, essential- Primary Unspecified essential [...] of cerebral infarction [facility] Diagnosis Chest pain, unspecified type- Primary 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 Acute right-sided low back pain without sciatica Hypertension, essential Unspecified essential hypertension Thrombocytopenia (HCC) Thrombocytopenia, unspecified Chronic alcohol abuse Alcohol abuse, unspecified [facility] Diagnosis Onset Date Resolution Status Chest pain acute WILSON (dyspnea on exertion) [place] Fatigue acute Tobacco use acute Hyperlipidemia chronic Hypertension chronic Stented coronary artery 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 Lung nodule acute COPD (chronic obstructive pulmonary disease) chronic [facility] Work Phone: Evaluation note* Diagnosis Elevated liver enzymes- Primary Other nonspecific abnormal serum enzyme levels Hypomagnesemia Disorders of magnesium metabolism [facility] Diagnosis Onset Date Resolution Status Chest pain acute WILSON (dyspnea on exertion) [place] Hyperlipidemia chronic Hypertension chronic Stented coronary artery 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 COPD (chronic obstructive pulmonary disease) chronic Carotid artery disease chron ic Chronic kidney disease chron ic COPD (chronic obstructive pulmonary disease) chronic Coronary artery disease 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 Hyperlipidemia chronic Hypertension chronic History of non-ST elevation myocardial infarction (NSTEMI) resolved [facility] Work Phone: Evaluation note* Diagnosis Influenza-like illness- Primary Influenza with other respiratory manifestations Hypertension, essential Unspecified essential hypertension [facility] Onset Date Resolution Status Carotid artery disease chron ic Chronic kidney disease chron ic COPD (chronic obstructive pulmonary disease) chronic Coronary artery disease 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 Hyperlipidemia chronic Hypertension chronic History of non-ST elevation myocardial infarction (NSTEMI) resolved Abdominal pain acute Acidosis, lactic acute Acute dehydration acute LUZ MARIA (acute kidney injury) [place] Alcohol withdrawal acute Alcoholic hepatitis acute Dehydration acute Nausea & vomiting acute [facility] Work Phone: Evaluation note* Diagnosis Onset Date Resolution Status Carotid artery disease chron ic Chronic kidney disease chron ic COPD (chronic obstructive pulmonary disease) chronic Coronary artery disease 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 Hyperlipidemia chronic Hypertension chronic History of non-ST elevation myocardial infarction (NSTEMI) resolved Abdominal pain acute Acidosis, lactic acute Acute dehydration acute LUZ MARIA (acute kidney injury) [place] Alcohol withdrawal acute Alcoholic hepatitis acute Dehydration acute Hyperbilirubinemia acute Nausea vomiting and diarrhea acute Transaminitis acute [facility] Work Phone: Evaluation note* Diagnosis Onset Date Resolution Status Noncompliance with medications acute Carotid artery disease chron ic Chronic kidney disease chron ic COPD (chronic obstructive pulmonary disease) chronic 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 artery disease 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 Hyperlipidemia chronic Hypertension chronic Nicotine dependence chronic History of non-ST elevation myocardial infarction (NSTEMI) resolved [facility] Work Phone: Evaluation note* Diagnosis Coronary artery [...] of cerebral infarction [facility] Diagnosis Family hx of colon cancer- Primary Family history of malignant neoplasm of gastrointestinal tract Screening for colon cancer Special screening for malignant neoplasms, colon Hx of colonic polyps Personal history of colonic polyps [facility] Diagnosis Sore throat- Primary Acute pharyngitis Injury of right elbow, initial encounter Viral illness Unspecified viral infection, in conditions classified elsewhere and of unspecified site Injury of right elbow, initial encounter [facility] of right elbow, initial encounter [facility] Diagnosis Anxiety and depression Dysthymic disorder [facility] Diagnosis Acute cough- Primary Acute cough [facility] Diagnosis Acute cough [facility] Diagnosis Anxiety and depression Dysthymic disorder [facility] Diagnosis Hyponatremia- Primary Hyposmolality and/or hyponatremia Elevated alkaline phosphatase level Other nonspecific abnormal serum enzyme levels Elevated PSA Elevated prostate specific antigen (PSA) Elevated hemoglobin (HCC) Other hemoglobinopathies [facility] Diagnosis Acute pain of left knee- Primary Moderate hypertension Unspecified essential hypertension [facility] Diagnosis Acute pain of left knee [facility] Diagnosis Acute pain of left knee [facility] Diagnosis Elevated PSA- Primary Elevated prostate specific antigen (PSA) Elevated alkaline phosphatase level Other nonspecific abnormal serum enzyme levels [facility] Diagnosis Acute pain of left knee- Primary Hx of non-ST elevation myocardial infarction (NSTEMI) Old myocardial infarction Hypertension, unspecified type Elevated alkaline phosphatase level Other nonspecific abnormal serum enzyme levels Elevated PSA Elevated prostate specific antigen (PSA) Acute gout of left knee, unspecified cause Chronic alcohol abuse Alcohol abuse, unspecified [facility] Diagnosis Elevated alkaline phosphatase level Other nonspecific abnormal serum enzyme levels [facility] Diagnosis Hepatosplenomegaly- Primary Other chronic nonalcoholic liver disease [facility] Diagnosis Hypertension, essential- Primary Unspecified essential hypertension Current severe episode of major depressive disorder without psychotic features, unspecified whether recurrent (HCC) Alcohol abuse Alcohol abuse, unspecified Acute pain of left knee [facility] Diagnosis Elevated PSA- Primary Elevated prostate specific antigen (PSA) BPH with obstruction/lower urinary tract symptoms Hypertrophy of prostate with urinary obstruction and other lower urinary tract symptoms (LUTS) ETOH abuse Alcohol abuse, unspecified documented in this encounter [facility] note* Diagnosis Hypertension, essential- Primary Unspecified [...] insomnia Insomnia, unspecified documented in this encounter [facility] note* Diagnosis Hypertension, unspecified type documented in this encounter [facility] note* Diagnosis Acute right-sided low back pain without sciatica documented in this encounter [facility] note* Diagnosis Medial epicondylitis, right elbow- Primary Elbow pain, right Pain in joint, upper arm documented in this encounter [facility] note* Diagnosis Hypomagnesemia Disorders of magnesium metabolism Chronic alcohol abuse Alcohol abuse, unspecified Hypertension, unspecified type documented in this encounter [facility] note* Diagnosis Elevated PSA- Primary Elevated prostate specific antigen (PSA) documented in this encounter [facility] note* Diagnosis Hypertension, unspecified type documented in this encounter [facility] note* Diagnosis Acute right-sided low back pain without sciatica documented in this encounter [facility] note* Diagnosis Lower abdominal pain- Primary Abdominal pain, other specified site Diarrhea, unspecified type documented in this encounter [facility] for referral (narrative)* Diagnostic Procedure Only (Routine) - Pending Review Specialty Diagnoses / Procedures Referred By Contac t Referred To Contact MOLECULAR & FUNCTIONAL IMAGING Diagnoses Chest pain, unspecified type Encounter for screening for cardiovascular disorders Procedures NM CARDIAC PERF STRESS/PHARM MYOCARDIAL SPECT MULTIPLE STUDIES Keren Kwon APRN.CNP [address] [place] [address] Molecular & Functional Imaging [address] [place] [address] Referral ID Status Reason Start Date Expiration Date Visits Requested Visits Authorized [id number] Pending Review Auto-Generat ed Referral 11/01/2021 12/01/2022 1 1 * Consult, Test, Treat (Routine) - Authorized Specialty Diagnoses / Procedures Referred By Contac t Referred To Contact Gastroenterology Diagnoses Diverticulitis Procedures CONSULT TO GASTROENTEROLOGY OFFICE/OUTPATIENT [facility] 60-74 MINUTES Keren Kwon APRN.HOME AND FAMILY LIVING PROFESSOR [address] [place] [address] Referral ID Status Reason Start Date Expiration Date Visits Requested Visits Authorized [id number] Authorized PCP Requested Referral 11/01/2021 11/01/2022 1 1 * Consult, Test, Treat (Routine) - Authorized Specialty Diagnoses / Procedures Referred By Contac t Referred To Contact Cardiology Diagnoses Chest pain, unspecified type 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 Procedures CONSULT TO CARDIOLOGY OFFICE/OUTPATIENT [facility] 60-74 MINUTES Keren Kwon APRN.HOME AND FAMILY LIVING PROFESSOR [address] [place] [address] Referral ID Status Reason Start Date Expiration Date Visits Requested Visits Authorized [id number] Authorized PCP Requested Referral 11/01/2021 11/01/2022 1 1 * Outpatient Procedure (Routine) - Pending Review Specialty Diagnoses / Procedures Referred By Contac t Referred To Contact [facility] Diagnoses Bilateral carotid artery stenosis Procedures US CAROTID ARTERIES [facility]ARY[facility] DUPLEX SCAN EXTRACRANIAL ART COMPL BI STUDY Keren Kwon APRN.HOME AND FAMILY LIVING PROFESSOR [address] [place] [address] [facility] [place] [address] [place] [address] Referral ID Status Reason Start Date Expiration Date Visits Requested Visits Authorized [id number] Pending Review Auto-Generat ed Referral 11/01/2021 11/01/2022 1 1 * Outpatient Procedure (Routine) - Closed Specialty Diagnoses / Procedures Referred By Contac t Referred To Contact [facility] Diagnoses Chest pain, unspecified type Procedures ECG COMPLETE ECG ROUTINE ECG W/LEAST 12 LDS W/I&R Keren Kwon APRN.HOME AND FAMILY LIVING PROFESSOR [address] [place] [address] [facility] [place] [address] [place] [address] Referral ID Status Reason Start Date Expiration Date V isits Requested Visits Authorized [id number] Closed Auto-Generate d Referral 11/01/2021 11/01/2022 1 1 [facility] for referral (narrative)* Diagnostic Procedure Only (Urgent) - Closed Specialty Diagnoses / Procedures Referred By Contac t Referred To Contact XR IMAGING Diagnoses Foot pain, right Procedures XR FOOT GENERAL 3V AP/LAT/OBL RIGHT RADEX FOOT COMPLETE MINIMUM 3 VIEWS Ziggy Mobley APRN.HOME AND FAMILY LIVING PROFESSOR [address] [place] [address] Xr Imaging Referral ID Status Reason Start Date Expiration Date V isits Requested Visits Authorized [id number] Closed Auto-Generate d Referral 06/25/2022 07/25/2023 1 1 [facility] for referral (narrative)* Outpatient Procedure (Routine) - Authorized Specialty Diagnoses / Procedures Referred By Contac t Referred To Contact [facility] Diagnoses Bilateral carotid artery stenosis Procedures US CAROTID ARTERIES MARY[facility] DUPLEX SCAN EXTRACRANIAL ART COMPL BI STUDY Keren Kwon APRN.HOME AND FAMILY LIVING PROFESSOR [address] [place] [address] [facility] [place] [address] [place] [address] Referral ID Status Reason Start Date Expiration Date Visits Requested Visits Authorized [id number] Authorized Auto-Generat ed Referral 11/05/2022 11/05/2023 1 1 * Medication Prior Authorization - Closed Specialty Diagnoses / Procedures Referred By Contac t Referred To Contact Diagnoses 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 Keren Kwon APRN.HOME AND FAMILY LIVING PROFESSOR [address] [place] [address] Referral ID Status Reason Start Date Expiration Date Visits Re quested Visits Authorized [id number] Closed 1 1 [facility] for referral (narrative)* Diagnostic Procedure Only (Routine) - Pending Review Specialty Diagnoses / Procedures Referred By Contac t Referred To Contact US IMAGING Diagnoses Elevated liver enzymes Procedures US ABD RIGHT UPPER QUADRANT US ABDOMINAL REAL TIME W/IMAGE LIMITED Keren Kwon APRN.HOME AND FAMILY LIVING PROFESSOR [address] [place] [address] Us Imaging Referral ID Status Reason Start Date Expiration Date Visits Requested Visits Authorized [id number] Pending Review Auto-Generat ed Referral 12/26/2022 01/25/2024 1 1 [facility] for referral (narrative)* Outpatient Procedure (Routine) - Authorized Specialty Diagnoses / Procedures Referred By Contac t Referred To Contact [facility] Diagnoses Bilateral carotid artery stenosis Procedures US CAROTID ARTERIES MARYANNE VAS LAB DUPLEX SCAN EXTRACRANIAL ART COMPL BI STUDY Keren Kwon APRN.HOME AND FAMILY LIVING PROFESSOR [address] [place] [address] [facility] [place] [address] [place] [address] Referral ID Status Reason Start Date Expiration Date Visits Requested Visits Authorized [id number] Authorized Auto-Generat ed Referral 4 06/12/2025 1 1 * Consult, Test, Treat (Routine) - Authorized Specialty Diagnoses / Procedures Referred By Contac t Referred To Contact General Surgery Diagnoses Screening for colon cancer Procedures CONSULT TO GENERAL SURGERY OFFICE/OUTPATIENT [facility] 60 MINUTES Keren Kwon APRN.HOME AND FAMILY LIVING PROFESSOR [address] [place] [address] Referral ID Status Reason Start Date Expiration Date Visits Requested Visits Authorized [id number] Authorized PCP Requested Referral 06/12/2025 1 1 [facility] for referral (narrative)* Diagnostic Procedure Only (Urgent) - Closed Specialty Diagnoses / Procedures Referred By Contac t Referred To Contact XR IMAGING Diagnoses Injury of right elbow, initial encounter Procedures XR ELBOW SPECIAL VIEWS AP/LAT/OTHER RIGHT RADEX ELBOW COMPLETE MINIMUM 3 VIEWS Desmond Duncan APRN.HOME AND FAMILY LIVING PROFESSOR [address] [place] [address] [place] [address] Referral ID Status Reason Start Date Expiration Date V isits Requested Visits Authorized [id number] Closed Auto-Generate d Referral 07/09/2024 08/08/2025 1 1 [facility] for referral (narrative)* Diagnostic Procedure Only (Routine) - Closed Specialty Diagnoses / Procedures Referred By Contac t Referred To Contact XR IMAGING Diagnoses Acute pain of left knee Procedures XR KNEE GENERAL 4V AP BOTH/PA BOTH/LAT/MERC LEFT RADIOLOGIC EXAM KNEE COMPLETE 4/MORE VIEWS Keren Kwon APRN.HOME AND FAMILY LIVING PROFESSOR [address] [place] [address] [place] [address] Referral ID Status Reason Start Date Expiration Date V isits Requested Visits Authorized [id number] Closed Auto-Generate d Referral 08/11/2024 09/10/2025 1 1 [facility] for referral (narrative)* Diagnostic Procedure Only (Routine) - Authorized Specialty Diagnoses / Procedures Referred By Contac t Referred To Contact US IMAGING Diagnoses Elevated alkaline phosphatase level Procedures US ABD RIGHT UPPER QUADRANT US ABDOMINAL REAL TIME W/IMAGE LIMITED Keren Kwon APRN.HOME AND FAMILY LIVING PROFESSOR [address] [place] [address] [place] [address] Referral ID Status Reason Start Date Expiration Date Visits Requested Visits Authorized [id number] Authorized Auto-Generat ed Referral 08/14/2024 09/13/2025 1 1 * Consult, Test, Treat (Routine) - Authorized Specialty Diagnoses / Procedures Referred By Contac t Referred To Contact Urology Diagnoses Elevated PSA Procedures CONSULT TO UROLOGY OFFICE/OUTPATIENT NEW HIGH MDM 60 MINUTES Keren Kwon APRN.HOME AND FAMILY LIVING PROFESSOR [address] [place] [address] Referral ID Status Reason Start Date Expiration Date Visits Requested Visits Authorized [id number] Authorized PCP Requested Referral 08/12/2024 08/12/2025 1 1 [facility] for referral (narrative)* Diagnostic Procedure Only (Routine) - Closed Specialty Diagnoses / Procedures Referred By Contac t Referred To Contact US IMAGING Diagnoses Elevated alkaline phosphatase level Procedures US ABD RIGHT UPPER QUADRANT US ABDOMINAL REAL TIME W/IMAGE LIMITED Keren Kwon APRN.HOME AND FAMILY LIVING PROFESSOR [address] [place] [address] [place] [address] Referral ID Status Reason Start Date Expiration Date V isits Requested Visits Authorized [id number] Closed Auto-Generate d Referral 08/14/2024 09/13/2025 1 1 [facility] for visit Narrative* Diagnostic Procedure Only (Urgent) - Closed Specialty Diagnoses / Procedures Referred By Contac t Referred To Contact XR IMAGING Diagnoses Foot pain, right Procedures XR FOOT GENERAL 3V AP/LAT/OBL RIGHT RADEX FOOT COMPLETE MINIMUM 3 VIEWS Ziggy Mobley APRN.HOME AND FAMILY LIVING PROFESSOR [address] [place] [address] [place] [address] Referral ID Status Reason Start Date Expiration Date V isits Requested Visits Authorized [id number] Closed Auto-Generate d Referral 06/25/2022 07/25/2023 1 1 [facility] for visit Narrative* Diagnostic Procedure Only (Urgent) - Closed Specialty Diagnoses / Procedures Referred By Contac t Referred To Contact XR IMAGING Diagnoses Injury of right elbow, initial encounter Procedures XR ELBOW SPECIAL VIEWS AP/LAT/OTHER RIGHT RADEX ELBOW COMPLETE MINIMUM 3 VIEWS Desmond Duncan, DETAIL MANAGER.HOME AND FAMILY LIVING PROFESSOR [address] [place] [address] [place] [address] Referral ID Status Reason Start Date Expiration Date V isits Requested Visits Authorized [id number] Closed Auto-Generate d Referral 07/09/2024 08/08/2025 1 1 [facility] Diagnostic Procedure Only (Routine) - Closed Specialty Diagnoses / Procedures Referred By Contac t Referred To Contact XR IMAGING Diagnoses Acute pain of left knee Procedures XR KNEE GENERAL 4V AP BOTH/PA BOTH/LAT/MERC LEFT RADIOLOGIC EXAM KNEE COMPLETE 4/MORE VIEWS Keren Kwon, DETAIL MANAGER.HOME AND FAMILY LIVING PROFESSOR [address] [place] [address] [place] [address] Referral ID Status Reason Start Date Expiration Date V isits Requested Visits Authorized [id number] Closed Auto-Generate d Referral 08/11/2024 09/10/2025 1 1 [facility] Summary Purpose Family History No Family [...] No November 08, 2021 6:00pm Power of Automatic Quilling Machine Operator No November 08 6:00pm Advance Directive Response Recorded Date/ Time Advance Directives No January 12 12:30pm Living Will No January 02, 2023 8:59am Power of Automatic Quilling Machine Operator No January 02 8:59am Advance Directive Response Recorded Date/ Time Advance Directives No January 12 12:30pm Living Will No May 13 11:47am Power of Automatic Quilling Machine Operator No May 13, 2023 11:47am Advance Directive Response Recorded Date/ Time Advance Directives No January 12 12:30pm Living Will No May 13 5:41pm Power of Automatic Quilling Machine Operator No May 13, 2023 5:41pm Chief Complaint [...] LUNG NODULE CHEST PAIN, WILSON, CHEST PAIN, WISLON, Reason for Visit Chest pain WILSON (dyspnea [...] colon cancer Procedures CONSULT TO GASTROENTEROLOGY OFFICE/OUTPATIENT [facility] 60 MINUTES Alma Delia Garza, DETAIL MANAGER.HOME AND FAMILY LIVING PROFESSOR [address] [place] [address] Referral ID Status Reason Start Date Expiration Date Visits Requested Visits Authorized [id number] Authorized PCP Requested Referral 06/22/2024 06/22/2025 1 1 Specialty Diagnoses / Procedures Referred By Contac t Referred To Contact Orthopedics Diagnoses Injury of right elbow, initial encounter Procedures CONSULT TO ORTHOPAEDICS OFFICE/OUTPATIENT [facility] 60 MINUTES Desmond Duncan, DETAIL MANAGER.HOME AND FAMILY LIVING PROFESSOR [address] [place] [address] Referral ID Status Reason Start Date Expiration Date Visits Requested Visits Authorized [id number] Authorized PCP Requested Referral 07/09/2025 1 1 Specialty Diagnoses / Procedures Referred By Contac t Referred To Contact XR IMAGING Diagnoses Injury of right elbow, initial encounter Procedures XR ELBOW SPECIAL VIEWS AP/LAT/OTHER RIGHT RADEX ELBOW COMPLETE MINIMUM 3 VIEWS Desmond Duncan, DETAIL MANAGER.HOME AND FAMILY LIVING PROFESSOR [address] [place] [address] [place] [address] Referral ID Status Reason Start Date Expiration Date V isits Requested Visits Authorized [id number] Closed Auto-Generate d Referral 07/09/2024 08/08/2025 1 1 Specialty Diagnoses / Procedures Referred By Contac t Referred To Contact Cardiology Diagnoses Hx of non-ST elevation myocardial infarction (NSTEMI) Procedures CONSULT TO CARDIOLOGY OFFICE/OUTPATIENT [facility] 60 MINUTES Keren Kwon, DETAIL MANAGER.HOME AND FAMILY LIVING PROFESSOR [address] [place] [address] Referral ID Status Reason Start Date Expiration Date Visits Requested Visits Authorized [id number] Authorized PCP Requested Referral 08/24/2024 08/24/2025 1 1 Additional Source Comments (unrecognized sect ion and content) No Status Records FoundNo Status Records FoundNo Status Records FoundNo Status Records Found INFORMATION SOURCE (unrecogn ized section and content) DATE CREATED AUTHOR 01/10/2018 [facility] DATE CREATED AUTHOR AUTHOR'S ORGANIZ ATION 01/10/2018 [facility] DATE CREATED AUTHOR AUTHOR'S ORGANIZ ATION 02/01/2025 [facility] DATE CREATED AUTHOR AUTHOR'S ORGANIZ ATION 02/11/[address] [facility] Source Comments (unrecognize d section and content) In the event this informatio n is protected by the Federal Confidentiality of Alcohol and Drug Abuse Patient Records regulations: The Federal rules restrict any use of the information to criminally investigate or prosecute any alcohol or drug abuse patient.[facility] event this information is protected by the Federal Confidentiality of Alcohol and Drug Abuse Patient Records regulations: The Federal rules restrict any use of the information to criminally investigate or prosecute any alcohol or drug abuse patient.[facility] the event this information is protected by the Federal Confidentiality of Alcohol and Drug Abuse Patient Records regulations: The Federal rules restrict any use of the information to criminally investigate or prosecute any alcohol or drug abuse patient.[facility] the event this information is protected by the Federal Confidentiality of Alcohol and Drug Abuse Patient Records regulations: The Federal rules restrict any use of the information to criminally investigate or prosecute any alcohol or drug abuse patient.[facility] event this information is protected by the Federal Confidentiality of Alcohol and Drug Abuse Patient Records regulations: The Federal rules restrict any use of the information to criminally investigate or prosecute any alcohol or drug abuse patient.[facility] HospitalIn the event this information is protected by the Federal Confidentiality of Alcohol and Drug Abuse Patient Records regulations: The Federal rules restrict any use of the information to criminally investigate or prosecute any alcohol or drug abuse patient.[facility] HospitalIn the event this information is protected by the Federal Confidentiality of Alcohol and Drug Abuse Patient Records regulations: The Federal rules restrict any use of the information to criminally investigate or prosecute any alcohol or drug abuse patient.[facility] HospitalIn the event this information is protected by the Federal Confidentiality of Alcohol and Drug Abuse Patient Records regulations: The Federal rules restrict any use of the information to criminally investigate or prosecute any alcohol or drug abuse patient.[facility] HospitalIn the event this information is protected by the Federal Confidentiality of Alcohol and Drug Abuse Patient Records regulations: The Federal rules restrict any use of the information to criminally investigate or prosecute any alcohol or drug abuse patient.[facility] HospitalIn the event this information is protected by the Federal Confidentiality of Alcohol and Drug Abuse Patient Records regulations: The Federal rules restrict any use of the information to criminally investigate or prosecute any alcohol or drug abuse patient.[facility] HospitalIn the event this information is protected by the Federal Confidentiality of Alcohol and Drug Abuse Patient Records regulations: The Federal rules restrict any use of the information to criminally investigate or prosecute any alcohol or drug abuse patient.[facility] HospitalIn the event this information is protected by the Federal Confidentiality of Alcohol and Drug Abuse Patient Records regulations: The Federal rules restrict any use of the information to criminally investigate or prosecute any alcohol or drug abuse patient.[facility] HospitalIn the event this information is protected by the Federal Confidentiality of Alcohol and Drug Abuse Patient Records regulations: The Federal rules restrict any use of the information to criminally investigate or prosecute any alcohol or drug abuse patient.[facility] HospitalIn the event this information is protected by the Federal Confidentiality of Alcohol and Drug Abuse Patient Records regulations: The Federal rules restrict any use of the information to criminally investigate or prosecute any alcohol or drug abuse patient.[facility] HospitalIn the event this information is protected by the Federal Confidentiality of Alcohol and Drug Abuse Patient Records regulations: The Federal rules restrict any use of the information to criminally investigate or prosecute any alcohol or drug abuse patient.[facility] HospitalIn the event this information is protected by the Federal Confidentiality of Alcohol and Drug Abuse Patient Records regulations: The Federal rules restrict any use of the information to criminally investigate or prosecute any alcohol or drug abuse patient.[facility] HospitalIn the event this information is protected by the Federal Confidentiality of Alcohol and Drug Abuse Patient Records regulations: The Federal rules restrict any use of the information to criminally investigate or prosecute any alcohol or drug abuse patient.[facility] HospitalIn the event this information is protected by the Federal Confidentiality of Alcohol and Drug Abuse Patient Records regulations: The Federal rules restrict any use of the information to criminally investigate or prosecute any alcohol or drug abuse patient.[facility] HospitalIn the event this information is protected by the Federal Confidentiality of Alcohol and Drug Abuse Patient Records regulations: The Federal rules restrict any use of the information to criminally investigate or prosecute any alcohol or drug abuse patient.[facility] HospitalIn the event this information is protected by the Federal Confidentiality of Alcohol and Drug Abuse Patient Records regulations: The Federal rules restrict any use of the information to criminally investigate or prosecute any alcohol or drug abuse patient.[facility] HospitalIn the event this information is protected by the Federal Confidentiality of Alcohol and Drug Abuse Patient Records regulations: The Federal rules restrict any use of the information to criminally investigate or prosecute any alcohol or drug abuse patient.[facility] HospitalIn the event this information is protected by the Federal Confidentiality of Alcohol and Drug Abuse Patient Records regulations: The Federal rules restrict any use of the information to criminally investigate or prosecute any alcohol or drug abuse patient.[facility] HospitalIn the event this information is protected by the Federal Confidentiality of Alcohol and Drug Abuse Patient Records regulations: The Federal rules restrict any use of the information to criminally investigate or prosecute any alcohol or drug abuse patient.[facility] HospitalIn the event this information is protected by the Federal Confidentiality of Alcohol and Drug Abuse Patient Records regulations: The Federal rules restrict any use of the information to criminally investigate or prosecute any alcohol or drug abuse patient.[facility] HospitalIn the event this information is protected by the Federal Confidentiality of Alcohol and Drug Abuse Patient Records regulations: The Federal rules restrict any use of the information to criminally investigate or prosecute any alcohol or drug abuse patient.[facility] HospitalIn the event this information is protected by the Federal Confidentiality of Alcohol and Drug Abuse Patient Records regulations: The Federal rules restrict any use of the information to criminally investigate or prosecute any alcohol or drug abuse patient.[facility] HospitalIn the event this information is protected by the Federal Confidentiality of Alcohol and Drug Abuse Patient Records regulations: The Federal rules restrict any use of the information to criminally investigate or prosecute any alcohol or drug abuse patient.[facility] HospitalIn the event this information is protected by the Federal Confidentiality of Alcohol and Drug Abuse Patient Records regulations: The Federal rules restrict any use of the information to criminally investigate or prosecute any alcohol or drug abuse patient.[facility] HospitalIn the event this information is protected by the Federal Confidentiality of Alcohol and Drug Abuse Patient Records regulations: The Federal rules restrict any use of the information to criminally investigate or prosecute any alcohol or drug abuse patient.[facility] HospitalIn the event this information is protected by the Federal Confidentiality of Alcohol and Drug Abuse Patient Records regulations: The Federal rules restrict any use of the information to criminally investigate or prosecute any alcohol or drug abuse patient.[facility] HospitalIn the event this information is protected by the Federal Confidentiality of Alcohol and Drug Abuse Patient Records regulations: The Federal rules restrict any use of the information to criminally investigate or prosecute any alcohol or drug abuse patient.[facility] HospitalIn the event this information is protected by the Federal Confidentiality of Alcohol and Drug Abuse Patient Records regulations: The Federal rules restrict any use of the information to criminally investigate or prosecute any alcohol or drug abuse patient.[facility] HospitalIn the event this information is protected by the Federal Confidentiality of Alcohol and Drug Abuse Patient Records regulations: The Federal rules restrict any use of the information to criminally investigate or prosecute any alcohol or drug abuse patient.[facility] HospitalIn the event this information is protected by the Federal Confidentiality of Alcohol and Drug Abuse Patient Records regulations: The Federal rules restrict any use of the information to criminally investigate or prosecute any alcohol or drug abuse patient.[facility] HospitalIn the event this information is protected by the Federal Confidentiality of Alcohol and Drug Abuse Patient Records regulations: The Federal rules restrict any use of the information to criminally investigate or prosecute any alcohol or drug abuse patient.[facility] HospitalIn the event this information is protected by the Federal Confidentiality of Alcohol and Drug Abuse Patient Records regulations: The Federal rules restrict any use of the information to criminally investigate or prosecute any alcohol or drug abuse patient.[facility] HospitalIn the event this information is protected by the Federal Confidentiality of Alcohol and Drug Abuse Patient Records regulations: The Federal rules restrict any use of the information to criminally investigate or prosecute any alcohol or drug abuse patient.[facility] HospitalIn the event this information is protected by the Federal Confidentiality of Alcohol and Drug Abuse Patient Records regulations: The Federal rules restrict any use of the information to criminally investigate or prosecute any alcohol or drug abuse patient.[facility] HospitalIn the event this information is protected by the Federal Confidentiality of Alcohol and Drug Abuse Patient Records regulations: The Federal rules restrict any use of the information to criminally investigate or prosecute any alcohol or drug abuse patient.[facility] HospitalIn the event this information is protected by the Federal Confidentiality of Alcohol and Drug Abuse Patient Records regulations: The Federal rules restrict any use of the information to criminally investigate or prosecute any alcohol or drug abuse patient.[facility] HospitalIn the event this information is protected by the Federal Confidentiality of Alcohol and Drug Abuse Patient Records regulations: The Federal rules restrict any use of the information to criminally investigate or prosecute any alcohol or drug abuse patient.[facility] HospitalIn the event this information is protected by the Federal Confidentiality of Alcohol and Drug Abuse Patient Records regulations: The Federal rules restrict any use of the information to criminally investigate or prosecute any alcohol or drug abuse patient.[facility] HospitalIn the event this information is protected by the Federal Confidentiality of Alcohol and Drug Abuse Patient Records regulations: The Federal rules restrict any use of the information to criminally investigate or prosecute any alcohol or drug abuse patient.[facility] HospitalIn the event this information is protected by the Federal Confidentiality of Alcohol and Drug Abuse Patient Records regulations: The Federal rules restrict any use of the information to criminally investigate or prosecute any alcohol or drug abuse patient.[facility] HospitalIn the event this information is protected by the Federal Confidentiality of Alcohol and Drug Abuse Patient Records regulations: The Federal rules restrict any use of the information to criminally investigate or prosecute any alcohol or drug abuse patient.[facility] HospitalIn the event this information is protected by the Federal Confidentiality of Alcohol and Drug Abuse Patient Records regulations: The Federal rules restrict any use of the information to criminally investigate or prosecute any alcohol or drug abuse patient.[facility] HospitalIn the event this information is protected by the Federal Confidentiality of Alcohol and Drug Abuse Patient Records regulations: The Federal rules restrict any use of the information to criminally investigate or prosecute any alcohol or drug abuse patient.[facility] HospitalIn the event this information is protected by the Federal Confidentiality of Alcohol and Drug Abuse Patient Records regulations: The Federal rules restrict any use of the information to criminally investigate or prosecute any alcohol or drug abuse patient.[facility] HospitalIn the event this information is protected by the Federal Confidentiality of Alcohol and Drug Abuse Patient Records regulations: The Federal rules restrict any use of the information to criminally investigate or prosecute any alcohol or drug abuse patient.[facility] HospitalIn the event this information is protected by the Federal Confidentiality of Alcohol and Drug Abuse Patient Records regulations: The Federal rules restrict any use of the information to criminally investigate or prosecute any alcohol or drug abuse patient.[facility] HospitalIn the event this information is protected by the Federal Confidentiality of Alcohol and Drug Abuse Patient Records regulations: The Federal rules restrict any use of the information to criminally investigate or prosecute any alcohol or drug abuse patient.[facility] Reason for Visit (unrecogniz ed section and content) Reason Comments Physical needs medication ref ills; c/o chcf covid effects, had covid 3x's; was not hospitalized Reason Comments Results Reason Comments Referral Request Reason Comments report from [facility] ER Reason Comments Chest Congestion cough, [...] follow up /refills Reason Comments ER F/U [facility] ER 01/02/23 dx: v iral gastroenteritis; pulmonary nodule Reason Comments Results Reason Comments Cough ST, diarrhea, bodyac hes x2 days Reason Comments Recheck Medication refills Reason Comments Consult colonoscopy Specialty Diagnoses / Procedures Referred By Corbin soler Referred To Contact General Surgery Diagnoses Screening for colon cancer Procedures CONSULT TO GENERAL SURGERY OFFICE/OUTPATIENT [facility] 60 MINUTES Keren Kwon, GERARDO.HOME AND FAMILY LIVING PROFESSOR [address] [place] [address] Referral ID Status Reason Start Date Expiration Date V isits Requested Visits Authorized [id number] Closed PCP Requested Referral 06/12/2024 06/12/2025 1 1 Reason Comments Elbow Injury Right, hit railing a t working, pain x 1 week Sore Throat X 1 week Reason Onset Date Comments Refill Request 07/10/2024 Reason [address]ore Throat ST, bodyaches and na usea x 1 week Reason Onset Date Comments Refill Request 07/21/2024 Reason Comments ER F/U [facility] ER f/u 07/23/24 dx : L [...] ABDOMINAL REAL TIME W/IMAGE LIMITED Keren Kwon, GERARDO.HOME AND FAMILY LIVING PROFESSOR [address] [place] [address] [place] [id number] Referral ID Status Reason Start Date Expiration Date V isits Requested Visits Authorized [id number] Closed Auto-Generate d Referral 08/14/2024 09/13/2025 1 1 Reason Comments Recheck 1 week follow up Reason Comments Appointment Reason Comments Consult Elevated PSA Specialty Diagnoses / Procedures Referred By Contac t Referred To Contact Urology Diagnoses Elevated PSA Procedures CONSULT TO UROLOGY OFFICE/OUTPATIENT [facility] 60 MINUTES Keren Kwon, GERARDO.HOME AND FAMILY LIVING PROFESSOR [address] [place] [address] Phone: tel: fax: Referral ID Status Reason Start Date Expiration Date V isits Requested Visits Authorized [id number] Closed PCP Requested Referral 08/12/2024 08/12/2025 1 1 Reason Comments Follow Up 4 week BP Reason Onset Date Comments Refill Request 09/29/2024 Reason Onset Date Comments Refill Request 10/02/2024 Reason Comments Right elbow pain Specialty Diagnoses / Procedures Referred By Contac t Referred To Contact Orthopedics Diagnoses Elbow pain, right Procedures CONSULT TO ORTHOPAEDICS OFFICE/OUTPATIENT [facility] MDM 60 MINUTES Keren Kwon, DETAIL MANAGER.HOME AND FAMILY LIVING PROFESSOR [address] [place] [address] Phone: tel: fax: Referral ID Status Reason Start Date Expiration Date V isits Requested Visits Authorized [id number] Closed PCP Requested Referral 09/28/2024 09/28/2025 1 1 Reason Onset Date Comments Refill Request 11/24/2024 Reason Onset Date Comments Refill Request 12/22/2024 Reason Onset Date Comments Refill Request 01/19/2025 Reason Onset Date Comments Refill Request 02/01/2025 Reason Comments Flu Like Symptoms Upset stomach, dizzy and nausea, diarrhea x 3 days Care Teams (unrecognized sec tion and content) Medical Record Consultant Relationship Specialty Start Date End Date Keren Kwon, DETAIL MANAGER.HOME AND FAMILY LIVING PROFESSOR [address] [place] [address] PCP - General Family Practice 08/28/18 Medical Record Consultant Relationship Specialty Start Date End Date Keren Kwon, DETAIL MANAGER.HOME AND FAMILY LIVING PROFESSOR [address] [place] [address] PCP - General Family Practice 08/28/18 Medical Record Consultant Relationship Specialty Start Date End Date Keren Kwon, DETAIL MANAGER.HOME AND FAMILY LIVING PROFESSOR [address] [place] [address] PCP - General Family Practice 08/28/18 Medical Record Consultant Relationship Specialty Start Date End Date Keren Kwon, DETAIL MANAGER.HOME AND FAMILY LIVING PROFESSOR [address] [place] [address] PCP - General Family Practice 08/28/18 Medical Record Consultant Relationship Specialty Start Date End Date Keren Kwon, DETAIL MANAGER.HOME AND FAMILY LIVING PROFESSOR [address] [place] [address] PCP - General Family Practice 08/28/18 Medical Record Consultant Relationship Specialty Start Date End Date Keren Kwon, DETAIL MANAGER.HOME AND FAMILY LIVING PROFESSOR [address] [place] [address] PCP - General Family Practice 08/28/18 Medical Record Consultant Relationship Specialty Start Date End Date Keren Kwon, DETAIL MANAGER.HOME AND FAMILY LIVING PROFESSOR [address] [place] [address] PCP - General Family Practice 08/28/18 Medical Record Consultant Relationship Specialty Start Date End Date Haanne, Keren, DETAIL MANAGER.HOME AND FAMILY LIVING PROFESSOR [address] [place] [address] PCP - General Family Practice 08/28/18 Medical Record Consultant Relationship Specialty Start Date End Date Haanne, Keren, DETAIL MANAGER.HOME AND FAMILY LIVING PROFESSOR [address] [place] [address] PCP - General Family Practice 08/28/18 Medical Record Consultant Relationship Specialty Start Date End Date Haanne, Keren, DETAIL MANAGER.HOME AND FAMILY LIVING PROFESSOR [address] [place] [address] PCP - General Family Medicine 08/28/18 Medical Record Consultant Relationship Specialty Start Date End Date Doyle, Keren, DETAIL MANAGER.HOME AND FAMILY LIVING PROFESSOR [address] [place] [address] PCP - General Family Medicine 08/28/18 Medical Record Consultant Relationship Specialty Start Date End Date Nikolai, Keren, DETAIL MANAGER.HOME AND FAMILY LIVING PROFESSOR [address] [place] [address] PCP - General Family Medicine 08/28/18 Medical Record Consultant Relationship Specialty Start Date End Date Keren Kwon, DETAIL MANAGER.HOME AND FAMILY LIVING PROFESSOR [address] [place] [address] PCP - General Family Medicine 08/28/18 Team Status: Active Member Role Status Dates Keren Kwon SOUS CHEF, SOUS CHEF-C Family Provider Active Keren Kwon SOUS CHEF, SOUS CHEF-C Primary Care Provider Active Team Status: Inactive Member Role Status Dates Dr. Pema Yang MD Primary Care Provider, Refer ring Provider Active Min An SOUS CHEF, SOUS CHEF-C Active Vani Owen SOUS CHEF, SOUS CHEF-C Attending Provider Active Team Status: Inactive Member Role Status Dates Keren Kwon SOUS CHEF, SOUS CHEF-C Primary Care Provider, Referri ng Provider Active Dr. Alejandro Leon DO Attending Provider Active Team Status: Inactive Member Role Status Dates Dr. Abdoulaye Wesley MD Attending Provider, Emergency Provider Active Keren Kwon SOUS CHEF, SOUS CHEF-C Primary Care Provider Active Team Status: Inactive Member Role Status Dates Keren Kwon SOUS CHEF, SOUS CHEF-C Primary Care Provider Active Dr. Alejandro Leon , DO Attending Provider, Referring Pro vider Active Medical Record Consultant Relationship Specialty Start Date End Date , DETAIL MANAGER.HOME AND FAMILY LIVING PROFESSOR [address] [place] [address] PCP - General Family Medicine 08/28/18 Team Status: Active Member Role Status Dates Vani Owen SOUS CHEF, SOUS CHEF-C Referring Provider, Other Provi silver Active Keren Kwon SOUS CHEF, SOUS CHEF-C Primary Care Provider Active Dr. Casey Brewer MD Attending Provider Active Team Status: Inactive Member Role Status Dates Vani Owen SOUS CHEF, SOUS CHEF-C Attending Provider, Referring P rovider Active Keren Kwon SOUS CHEF, SOUS CHEF-C Primary Care Provider Active Team Status: Inactive Member Role Status Dates Keren Kwon SOUS CHEF, SOUS CHEF-C Primary Care Provider, Referri ng Provider Active Dr. Casey Brewer MD Attending Provider Active Team Status: Active Member Role Status Dates Keren Kwon SOUS CHEF, SOUS CHEF-C Primary Care Provider Active Dr. Alejandro Leon , Referring Provider, Other Provide r Active Dr. Will Virk MD Attending Provider Active Medical Record Consultant Relationship Specialty Start Date End Date OctN.HOME AND FAMILY LIVING PROFESSOR [address] [place] [address] PCP - General Family Medicine 08/28/18 Medical Record Consultant Relationship Specialty Start Date End Date , DETAIL MANAGER.HOME AND FAMILY LIVING PROFESSOR [address] [place] [address] PCP - General Family Medicine 08/28/18 Team Status: Active Member Role Status Dates Keren Kwon SOUS CHEF, SOUS CHEF-C Primary Care Provider Active Dr. Maggy Tucker DO Emergency Provider Active Dr. Lorena Bennett DO Admit Provider, Attending Provide r Active Team Status: Active Member Role Status Dates Keren Kwon SOUS CHEF, SOUS CHEF-C Primary Care Provider Active Dr. Maggy Tucker , DO Emergency Provider Active Dr. Lorena Bennett , DO Admit Provider, Att ending Provider, Other Provider Active Team Status: Active Member Role Status Dates Keren Kwon SOUS CHEF, SOUS CHEF-C Primary Care Provider Active Dr. Maggy Tucker , Emergency Provider Active Dr. Lorena Bennett , DO Admit Provider, Other Provider Ac tive Dr. Shakeel Valera MD Attending Provider, Other Provider Active Team Status: Inactive Member Role Status Dates Keren Kwon SOUS CHEF, SOUS CHEF-C Primary Care Provider Active Dr. Maggy Tucker , Emergency Provider Active Dr. Lorena Bennett , DO Admit Provider, Other Provider Ac tive Dr. Shakeel Valera MD Attending Provider Active Team Status: Active Member Role Status Dates Keren Kwon SOUS CHEF, SOUS CHEF-C Family Provider Active No Primary Care Physician Primary Care Provider Active Team Status: Inactive Member Role Status Dates No Primary Care Physician Primary Care Provider Active Dr. Casey Brewer MD Attending Provider, Referring Pr ovider Active Medical Record Consultant Relationship Specialty Start Date End Date , DETAIL MANAGER.HOME AND FAMILY LIVING PROFESSOR [address] [place] [address] PCP - General Family Medicine 08/28/18 Medical Record Consultant Relationship Specialty Start Date End Date , DETAIL MANAGER.HOME AND FAMILY LIVING PROFESSOR [address] [place] [address] PCP - General Family Medicine 08/28/18 Medical Record Consultant Relationship Specialty Start Date End Date , DETAIL MANAGER.HOME AND FAMILY LIVING PROFESSOR [address] [place] [address] PCP - General Family Medicine 08/28/18 Medical Record Consultant Relationship Specialty Start Date End Date , DETAIL MANAGER.HOME AND FAMILY LIVING PROFESSOR [address] [place] [address] PCP - General Family Medicine 08/28/18 Medical Record Consultant Relationship Specialty Start Date End Date , DETAIL MANAGER.HOME AND FAMILY LIVING PROFESSOR [address] [facility] [place] [address] PCP - General Family Medicine 08/28/18 Medical Record Consultant Relationship Specialty Start Date End Date Keren Kwon APRN.HOME AND FAMILY LIVING PROFESSOR [address] [facility] [place] [address] PCP - General Family Medicine 08/28/18 Kathe Pierre, DETAIL MANAGER.HOME AND FAMILY LIVING PROFESSOR [address] [place] [address] Assistant Professor Surgical Technology Family Medicine 06/28/24 Mikhail Mancia MD [address] [facility] [place] [address] Assistant Professor Surgical Technology Family Medicine 06/28/24 Medical Record Consultant Relationship Specialty Start Date End Date Keren Kwon, DETAIL MANAGER.HOME AND FAMILY LIVING PROFESSOR [address] [place] [address] PCP - General Family Medicine 08/28/18 Kathe Pierre DETAIL MANAGER.HOME AND FAMILY LIVING PROFESSOR [address] [facility] [place] [address] Assistant Professor Surgical Technology Family Medicine 06/28/24 Mikhail Mancia MD [address] [place] [address] Assistant Professor Surgical Technology Family Medicine 06/28/24 Medical Record Consultant Relationship Specialty Start Date End Date Keren Kwon APRN.HOME AND FAMILY LIVING PROFESSOR [address] [facility] [place] [address] PCP - General Family Medicine 08/28/18 Kathe Pierre DETAIL MANAGER.HOME AND FAMILY LIVING PROFESSOR [address] [place] [address] Assistant Professor Surgical Technology Family Medicine 06/28/24 Mikhail Mancia MD [address] [place] [address] Assistant Professor Surgical Technology Family Medicine 06/28/24 Medical Record Consultant Relationship Specialty Start Date End Date Keren Kwon APRN.HOME AND FAMILY LIVING PROFESSOR [address] [facility] [place] [address] PCP - General Family Medicine 08/28/18 Kathe Pierre APRN.HOME AND FAMILY LIVING PROFESSOR [address] [place] [address] Assistant Professor Surgical Technology Family Medicine 06/28/24 Mikhail Mancia MD [address] [place] [address] Assistant Professor Surgical Technology Family Medicine 06/28/24 Medical Record Consultant Relationship Specialty Start Date End Date Keren Kwon APRN.HOME AND FAMILY LIVING PROFESSOR [address] [facility] [place] [address] PCP - General Family Medicine 08/28/18 Kathe Pierre DETAIL MANAGER.HOME AND FAMILY LIVING PROFESSOR [address] [place] [address] Assistant Professor Surgical Technology Family Medicine 06/28/24 Mikhail Mancia MD [address] [place] [address] Assistant Professor Surgical Technology Family Medicine 06/28/24 Medical Record Consultant Relationship Specialty Start Date End Date Keren Kwon DETAIL MANAGER.HOME AND FAMILY LIVING PROFESSOR [address] [place] [address] PCP - General Family Medicine 08/28/18 Kathe Pierre, DETAIL MANAGER.HOME AND FAMILY LIVING PROFESSOR [address] [facility] [place] [address] Assistant Professor Surgical Technology Family Medicine 06/28/24 Mikhail Mancia MD [address] [place] [address] Assistant Professor Surgical Technology Family Medicine 06/28/24 Medical Record Consultant Relationship Specialty Start Date End Date Keren Kwon, DETAIL MANAGER.HOME AND FAMILY LIVING PROFESSOR [address] [facility] [place] [address] PCP - General Family Medicine 08/28/18 Kathe Pierre, DETAIL MANAGER.HOME AND FAMILY LIVING PROFESSOR [address] [place] [address] Assistant Professor Surgical Technology Family Medicine 06/28/24 Mikhail Mancia MD [address] [facility] [place] [address] Assistant Professor [facility] 06/28/24 Medical Record Consultant Relationship Specialty Start Date End Date Keren Kwon, DETAIL MANAGER.HOME AND FAMILY LIVING PROFESSOR [address] [facility] [place] [address] PCP - General Family Medicine 08/28/18 Kathe Pierre, DETAIL MANAGER.HOME AND FAMILY LIVING PROFESSOR [address] [place] [address] Assistant Professor Surgical Technology Family Medicine 06/28/24 Mikhail Mancia MD [address] [place] [address] Assistant Professor Surgical Technology Family Medicine 06/28/24 Medical Record Consultant Relationship Specialty Start Date End Date Haagen, Keren, DETAIL MANAGER.HOME AND FAMILY LIVING PROFESSOR [address] [place] [address] PCP - General Family Medicine 08/28/18 Kathe Pierre DETAIL MANAGER.HOME AND FAMILY LIVING PROFESSOR [address] [place] [address] Assistant Professor Surgical Technology Family Medicine 06/28/24 Mikhail Mancia MD [address] [facility] [place] [address] Assistant Professor [facility] 06/28/24 Medical Record Consultant Relationship Specialty Start Date End Date Keren Kwon, DETAIL MANAGER.HOME AND FAMILY LIVING PROFESSOR [address] [facility] [place] [address] PCP - General Family Medicine 08/28/18 Kathe Pierre, DETAIL MANAGER.HOME AND FAMILY LIVING PROFESSOR [address] [facility] [place] [address] Assistant Professor Surgical Technology Family Medicine 06/28/24 Mikhail Mancia MD [address] [place] [address] Assistant Professor Surgical Technology Family Medicine 06/28/24 Medical Record Consultant Relationship Specialty Start Date End Date Keren Kwon, DETAIL MANAGER.HOME AND FAMILY LIVING PROFESSOR [address] [place] [address] PCP - General Family Medicine 08/28/18 Kathe Pierre DETAIL MANAGER.HOME AND FAMILY LIVING PROFESSOR [address] [facility] [place] [address] Assistant Professor Surgical Technology Family Medicine 06/28/24 Mikhail Mancia MD [address] [facility] [place] [address] Assistant Professor Surgical Technology Family Medicine 06/28/24 Medical Record Consultant Relationship Specialty Start Date End Date Keren Kwon APRN.HOME AND FAMILY LIVING PROFESSOR [address] [facility] [place] [address] PCP - General Family Medicine 08/28/18 Kathe Pierre APRN.HOME AND FAMILY LIVING PROFESSOR [address] [facility] [place] [address] Assistant Professor Surgical Technology Family Medicine 06/28/24 Mikhail Mancia MD [address] [place] [address] Assistant Professor Surgical Technology Family Medicine 06/28/24 Medical Record Consultant Relationship Specialty Start Date End Date Keren Kwon APRN.HOME AND FAMILY LIVING PROFESSOR [address] [place] [address] PCP - General Family Medicine 08/28/18 Kathe Pierre APRN.HOME AND FAMILY LIVING PROFESSOR [address] [place] [address] Assistant Professor Surgical Technology Family Medicine 06/28/24 Mikhail Mancia MD [address] [facility] [place] [address] Assistant Professor Surgical Technology Family Medicine 06/28/24 Medical Record Consultant Relationship Specialty Start Date End Date Keren Kwon APRN.HOME AND FAMILY LIVING PROFESSOR [address] [facility] [place] [address] PCP - General Family Medicine 08/28/18 Kathe Pierre APRN.HOME AND FAMILY LIVING PROFESSOR [address] [place] [address] Assistant Professor Surgical Technology Family Medicine 06/28/24 Mikhail Mancia MD [address] [facility] [place] [address] Assistant Professor Surgical Technology Family Medicine 06/28/24 Medical Record Consultant Relationship Specialty Start Date End Date Keren Kwon APRN.HOME AND FAMILY LIVING PROFESSOR [address] [facility] [place] [address] PCP - General Family Medicine 08/28/18 Kathe Pierre DETAIL MANAGER.HOME AND FAMILY LIVING PROFESSOR [address] [place] [address] Assistant Professor Surgical Technology Family Medicine 06/28/24 Mikhail Mancia MD [address] [place] [address] Assistant Professor Surgical Technology Family Medicine 06/28/24 Medical Record Consultant Relationship Specialty Start Date End Date Keren Kwon, DETAIL MANAGER.HOME AND FAMILY LIVING PROFESSOR [address] [facility] [place] [address] PCP - General Family Medicine 08/28/18 Kathe Pierre DETAIL MANAGER.HOME AND FAMILY LIVING PROFESSOR [address] [place] [address] Assistant Professor Surgical Technology Family Medicine 06/28/24 Mikhail Mancia MD [address] [place] [address] Assistant Professor Surgical Technology Family Medicine 06/28/24 Medical Record Consultant Relationship Specialty Start Date End Date Keren Kwon, DETAIL MANAGER.HOME AND FAMILY LIVING PROFESSOR [address] [facility] [place] [address] PCP - General Family Medicine 08/28/18 Kathe Pierre DETAIL MANAGER.HOME AND FAMILY LIVING PROFESSOR [address] [place] [address] Assistant Professor Surgical Technology Family Medicine 06/28/24 Mikhail Mancia MD [address] [place] [address] Assistant Professor Surgical Technology Family Medicine 06/28/24 Medical Record Consultant Relationship Specialty Start Date End Date Keren Kwon APRN.HOME AND FAMILY LIVING PROFESSOR [address] [facility] [place] [address] PCP - General Family Medicine 08/28/18 Kathe Pierre DETAIL MANAGER.HOME AND FAMILY LIVING PROFESSOR [address] [facility] [place] [address] Assistant Professor Surgical Technology Family Medicine 06/28/24 Mikhail Mancia MD [address] [facility] [place] [address] Assistant Professor [facility] 06/28/24 Medical Record Consultant Relationship Specialty Start Date End Date Keren Kwon APRN.HOME AND FAMILY LIVING PROFESSOR [address] [facility] [place] [address] PCP - General Family Medicine 08/28/18 Kathe Pierre DETAIL MANAGER.HOME AND FAMILY LIVING PROFESSOR [address] [facility] [place] [address] Assistant Professor Surgical Technology Family Medicine 06/28/24 Mikhail Mancia MD [address] [facility] [place] [address] Assistant Professor Surgical Technology Family Medicine 06/28/24 Medical Record Consultant Relationship Specialty Start Date End Date Keren Kwon APRN.HOME AND FAMILY LIVING PROFESSOR [address] [facility] [place] [address] PCP - General Family Medicine 08/28/18 Kathe Pierre, DETAIL MANAGER.HOME AND FAMILY LIVING PROFESSOR [address] [facility] [place] [address] Assistant Professor Surgical Technology Family Medicine 06/28/24 Mikhail Mancia MD [address] [facility] [place] [address] Assistant Professor Surgical Technology Family Medicine 06/28/24 Medical Record Consultant Relationship Specialty Start Date End Date Keren Kwon, DETAIL MANAGER.HOME AND FAMILY LIVING PROFESSOR [address] [facility] [place] [address] PCP - General Family Medicine 08/28/18 Medical Record Consultant Relationship Specialty Start Date End Date Keren Kwon, DETAIL MANAGER.HOME AND FAMILY LIVING PROFESSOR [address] [facility] [place] [address] PCP - General Family Medicine 08/28/18 Kathe Pierre, DETAIL MANAGER.HOME AND FAMILY LIVING PROFESSOR [address] [place] [address] Assistant Professor Surgical Technology Family Medicine 06/28/24 10/12/24 Mikhail Mancia MD [address] [place] [address] Assistant Professor Surgical Technology Family Medicine 06/28/24 10/12/24 Medical Record Consultant Relationship Specialty Start Date End Date Keren Kwon APRN.HOME AND FAMILY LIVING PROFESSOR [address] [facility] [address] PCP - General Family Medicine 08/28/18 Medical Record Consultant Relationship Specialty Start Date End Date Keren Kwon, DETAIL MANAGER.HOME AND FAMILY LIVING PROFESSOR [address] [place] [address] PCP - General Family Medicine 08/28/18 Medical Record Consultant Relationship Specialty Start Date End Date Keren Kwon, DETAIL MANAGER.HOME AND FAMILY LIVING PROFESSOR [address] [place] [address] PCP - General Family Medicine 08/28/18 Goals [...] BE BASED ON THE PRIMARY CLINICAL RECORDS. [facility]. provides no warranty or guarantee of the accuracy or completeness of information in this document.
--- OUTSIDE RECORDS SUMMARY | 2025-03-03 22:08 | XMS RPT_ITS | CCD ---
Author Organization [facility] Care Team Providers Care Graduation Coach Name Role Phone EILEEN, CANDELARIO E Unavailable Unavailable EILEEN, CANDELARIO E Unavailable Unavailable IELEEN, CANDELARIO Unavailable Unavailable EILEEN, CANDELARIO Unavailable Unavailable Desmond Tejeda Unavailable Unavailable EILEEN, CANDELARIO Unavailable Unavailable EILEEN, CANDELARIO Unavailable Unavailable Desmond Tejeda Unavailable Unavailable Haagen FORTUNE COOKIE MAKER.AGRICULTURAL RESEARCH TECHNICIAN, [facility] Primary Care Provider Haagen FORTUNE COOKIE MAKER.AGRICULTURAL RESEARCH TECHNICIAN, [facility] Primary Care Provider Haagen FORTUNE COOKIE MAKER.AGRICULTURAL RESEARCH TECHNICIAN, [facility] Primary Care Provider Haagen FORTUNE COOKIE MAKER.AGRICULTURAL RESEARCH TECHNICIAN, [facility] Primary Care Provider Dr. Pema Yang Primary Care Provider Dr. Pema Yang Referring Provider Brayden HOSPITALITY AIDE, HOSPITALITY AIDE-C Vani Attending Provider Doyle HOSPITALITY AIDE, HOSPITALITY AIDE-C [facility] Primary Care Provider Doyle HOSPITALITY AIDE, HOSPITALITY AIDE-C Keren Referring Provider Dr. Alejandro Leon Attending Provider Brayden GARRISON, HOSPITALITY AIDE-C Vani Referring Provider Brayden GARRISON, HOSPITALITY AIDE-C Vani Other Provider Dr. Casey Brewer Attending Provider [phone] Dr. Alejandro Leon Referring Provider Dr. Alejandro Leon Other Provider Dr. Will Virk Attending Provider Doyle HOSPITALITY AIDE, HOSPITALITY AIDE-C [facility] Primary Care Provider Haagen HOSPITALITY AIDE, HOSPITALITY AIDE-C Keren Referring Provider Dr. Maggy Tucker Emergency Provider Dr. Lorena Bennett Admit Provider Dr. Lorena Bennett Attending Provider Dr. Lorena Bennett Other Provider Dr. Shakeel Valera Attending Provider Dr. Shakeel Valera Other Provider Haagen HOSPITALITY AIDE, HOSPITALITY AIDE-C Keren Primary Care Provider Haagen HOSPITALITY AIDE, HOSPITALITY AIDE-C Keren Referring Provider Dr. Casey Brewer Attending Provider Haagen FORTUNE COOKIE MAKER.AGRICULTURAL RESEARCH TECHNICIAN, Keren Primary Care Provider Haagen FORTUNE COOKIE MAKER.AGRICULTURAL RESEARCH TECHNICIAN, Keren Primary Care Provider Suppan FORTUNE COOKIE MAKER.AGRICULTURAL RESEARCH TECHNICIAN, Kathe A Unavailable [phone] Mikhail Mancia MD Unavailable Suppan FORTUNE COOKIE MAKER.AGRICULTURAL RESEARCH TECHNICIAN, Kathe A Unavailable Suppan FORTUNE COOKIE MAKER.AGRICULTURAL RESEARCH TECHNICIAN, Kathe A Unavailable Suppan FORTUNE COOKIE MAKER.CHRISTIANA, Kathe A Unavailable Mikhail Mancia MD Unavailable Sherine Mobley Attending Unavailable Haagen HOSPITALITY AIDE, Keren Primary Care Unavailable Haagen HOSPITALITY AIDE, Keren Primary Care Unavailable Shannan Nik Attending Unavailable Shannan, Nik Referring Unavailable Julius Lovell Attending Unavailable Haagen HOSPITALITY AIDE, Keren Primary Care Unavailable Haagen HOSPITALITY AIDE, Keren Referring Unavailable Friend, Julius Attending Unavailable Haagen HOSPITALITY AIDE, Keren Primary Care Unavailable Estrella Avelar Attending Unavailable Haagen HOSPITALITY AIDE, Keren Referring Unavailable Haagen HOSPITALITY AIDE, Keren Primary Care Unavailable HAAGEN, KEREN Primary [...] DUNCAN Referring Unavailable GARY HUTTON Attending Unavailable [facility] Primary Care Unavailable Allergies Allergy Classification Reported Allergen(s) Allergy Type Date of Onset Reaction(s) Facility (20 sources) pseudoephedrine; Translations: [PSEUDOEPHEDRINE ] Drug Allergy Other: See Comments [facility] Other [facility] Rep[facility] Medications Current Medications Medication Drug Class(es) [...] Comment on above: Take 1 tablet by [facility] once daily. magnesium oxide 400 mg oral [...] every 6 hours as needed for Pain. [id number] 200 actuat albuterol 0.09 mg/actuat metered dose [...] on above: Take 1 capsule by mo [facility] once daily. 10 ml lidocaine hydrochloride [...] Comment on above: [facility] tablet [facility] daily. With food. metoprolol tartrate 25 [...] October 14, 2023 1:26pm polyethylene glycol 3350 14085 mg powder for oral solution (8 sources) [...] above: 1/2 pill daily X 1 w [facility]; then increase to a whole pill daily. [...] Coronary atherosclerosis; Translations: [Atherosclerotic heart disease of [place] coronary artery without angina pectoris] Onset: 5 [...] Test Name Value Interpretation Reference Range Facility [facility] 02-09-2025 CNOV Office Visit (WOUCA) BETHANY MONTALVO ([id number]) 1965 M Date Time Provider Department 02/09/25 [...] No recent use of Pepto-Bismol. - Taking vobt-gbr-xyevexp cold and flu medication. - Vomiting early [...] rule out serious conditions. and Recording using Pinion.gg software for draft documentation of the visit was discussed with the patient/authorized phlebotomy services representative; all questions welcomed and answered. Patient/authorized phlebotomy services representative agreed to proceed Disposition The patient [...] (more content not included)... Normal [facility] CNOVon 12-11-2024 CN Office Visit ([facility] ) SELVINBETHANY ([id number]) 1965 M Date Time Provider Department 12/11/24 [...] Age of Onset Psychiatry Mother Heart Mother [place] 53 Heart Father [place] 51 Colon Cancer Father other (Heart stent) [...] (more content not included)... Normal [facility] Additional Injectionson 03- Juarez Hernández V, DO [...] these instructions. Informed Consent Consent Obtained: Verbal Timber Protocol SIGN IN TIME OUT [facility] CNOVon 10-07-2024 CNOV Office Visit (FRWS ) BETHANY MONTALVO ([id number]) 1965 M Date Time Provider Department 10/07/24 1:30 PM JUAREZ HERNÁNDEZ V [facility] During your visit today, we [...] DATE: October 07, 2024 PCP: Keren Kwon APRN.AGRICULTURAL RESEARCH TECHNICIAN Subjective Patient ID: Bethany is a 58 [...] Age of Onset Psychiatry Mother Heart Mother [place] 53 Heart Father [place] 51 Colon Cancer Father other (Heart stent) [...] (more content not included)... Normal [facility] Free PSA [Mass/Vol]on 2024 Free PSA/Total PSA [Mass fraction] 14 % Normal [facility] Comment on above: Order Comment: Speci men Type: BLOOD SPECIMENOrdering Facility: [facility] Address: [address] [place] [address] Result Comment: Tota l and free PSA [...] 12.2% 15.8% Performed By: #### 1 0886-0 ####[facility] LABCLIA [id number] [place] [address] [place] Prostate specific Ag [Mass/Vol] 4.14 ng/mL High <2.60 [facility] Comment on above: Order Comment: Speci men Type: BLOOD SPECIMENOrdering Facility: [facility] Address: [address] [place] [address] Result Comment: Guera delarosa PSA test methodology [...] Med 2003,349:335-42. Performed By: #### 1 0886-0 ####[facility] LABCLIA [id number] [place] [address] [place] Gastroenterology Visit Repor ton 09-29-2024 Gastroenterology Visit Report [facility] Gastroenterology [address] [place] [address] OFFICE VISIT Date of Service: 09/29/24 MR#: [id number] Acct: [id number] Name: BETHANY MONTALVO Rep #: [id number] : 1965 Provider: XUAN cochran Age/Sex: 58/M [place] [facility] [place] Signed Intake Vital Signs 07/23/24 12:07 09/29/24 14:11 Height 5 ft 10 in 5 ft 10 in Weight: 206 lb 8 oz BMI 29.6 BP 110/75 Respiration 16 Pulse 113 H Pulse Oximetry (%) 96 Oxygen Delivery Method room air Intake Visit Reasons: Gastroesophageal reflux disease (GERD) Chief Complaint: SOB and cough Director Of Perioperative Services Required: No Is patient in pain?: No [...] Note: Has occasional acid reflux. Some diarrhea[facility] Medical History Personal history of colon [...] Suicidal ideation Atherosclerosis of coronary artery of [place] heart without angina pectoris Depression NSTEMI (non-ST [...] apartment current occupational status: employed current occupation: [employer] Smoking Status: Former smoker alcohol intake: current [...] - qu (more content not included)... Normal [facility] CNOVon 09-28-2024 CNOV Office Visit (FAMPWS ) BETHANY MONTALVO ([id number]) 1965 M Date Time Provider Department 09/28/24 3:40 PM [facility] During your visit today, we recorded the following information about you: Pulse Respiration Blood pressure Weight 113/minute 16/minute 122/80 92.1 kg Keren Kwon APRN.AGRICULTURAL RESEARCH TECHNICIAN 09/29/2024 1:38 PM Signed This is a 58 year old male who presents today with: Patient presents with: Follow Up: 4 week BP HISTORY OF PRESENT ILLNESS: Bethany Montalvo is a 58 year old male. Patient presents with: Follow Up: 4 week BP Elevated alk phos. Fatty liver. Has appt with [facility] tomorrow. Needs referral to GI faxed. [...] Age of Onset Psychiatry Mother Heart Mother [place] 53 Heart Father [place] 51 Colon Cancer Father other (Heart stent) [...] 29.13 kg/m? (more content not included)... [facility]ALVO ([id number]) 1965 M Date Time Provider Department 09/28/24 [...] is not normal. Having said that, the [facility] uses a lower cut-off of 2.59, [...] Chris Devlin DNP, CHRISTIANA Department of Urology [facility] Chris Devlin APRN.MARLY VILLEDA 09/28/2024 1:06 PM Signed [facility] PSA/PROSTATE EVALUATION HISTORY AND PHYSICAL EXAM PATIENT: Bethany Montalvo (58 year old) PCP: Keren Kwon APRN.CHRISTIANA REFERRING Provider: Keren Kwon APRN.C* === Consultation requested by Dr. Keren Kwon [address] [facility] [address] for an opinion regarding Elevated PSA and my final recommendations will be co (more content not included)... Normal [facility] UA DIP, URINE (POC)on 2024 BILIRUBIN UA (POCT) Negative Negative [facility] CLARITY UA (POCT) Slightly Cloudy Cl [facility] COLOR UA (POCT) Dark yellow [facility] GLUCOSE UA (POCT) Negative Negative mg/dL [facility] Hemoglobin Ql (U) Negative Negative [facility] KETONE UA (POCT) Negative Negative mg/dL [facility] LEUKOCYTES UA (POCT) Negative [facility] NITRITE [facility] (POCT) Negative Negative [facility] PH UA (POCT) 5.5 4.5 - 8.0 [facility] Protein Ql (U) Negative Negative mg/dL [facility] SPECIFIC GRAVITY UA (POCT) 1.025 1.005 - 1.030 [facility] UROBILINOGEN UA (POCT) 0.2 Normal E.U./dL [facility] Location:[facility], [address] , [place], [place], [id number] [place] [address] POINT OF CARE [facility] Valdo 09-25-2024 ISAIAS Telephone (UROLWS) BETHANY MONTALVO ([id number]) 1965 M Date Time Provider Department 09/25/24 CHRIS DEVLIN During your visit today, we recorded the following information about you: Lindsay Fonseca LPN 09/25/2024 1:03 PM Signed Called patient regarding appointment on Saturday due to provider having a meeting between [phone]. Patient offered times to come into clinic [...] Encounter Status:Closed by LINDSAY FONSECA on 09/25/24 [facility] CNOVon 08-31-2024 CNOV Office Visit (FAMPWS ) BETHANY MONTALVO ([id number]) 1965 M Date Time Provider Department 08/31/24 3:20 PM KEREN KWON During your visit today, we recorded the following information about you: Pulse Respiration Blood pressure 114/minute 16/minute 153/97 Keren Kwon APRN.AGRICULTURAL RESEARCH TECHNICIAN 08/31/2024 8:46 PM Signed This is a [...] with psychiatric at the counseling center at [facility] Is interested and agreeable to following with a counselor again at [facility]. Left knee pain has been a lot [...] Age of Onset Psychiatry Mother Heart Mother [place] 53 Heart Father [place] 51 Colon Cancer Father Social History Tobacco [...] (more content not included)... Normal [facility] 08-28-2024 [facility] Telephone ([facility]) BETHANY MONTALVO ([id number]) 1965 Date Time Provider Department 08/28/24 KEREN KWON [facility] During your visit today, we recorded the following information about you: Keren Kwon APRN.AGRICULTURAL RESEARCH TECHNICIAN 08/28/2024 3:37 PM Signed Can please let [...] Primary Visit Diagnosis:Hepatosplenomegaly [R16.2] Order(s):CONSULT TO GASTROENTEROLOGY [9041] Order #: [id number]: 1 FUTURE Prescriptions as of 08/31/2024 - [...] DONNA RICHEY on 08/31/24 Normal [facility] No Panel Informationon 08-27 IMPRESSION: 1. Fatty liver. Small hypoechoic area in the liver adjacent to the gallbladder probably represents an area of focal fatty sparing. 2. Hepatosplenomegaly Jacquard Loom Carpet Weaver: JOHN Transcribe Date/Time: Aug 27 2024 4:28P Dictated by : CRISTIAN BENZ DO This examination was interpreted and the report reviewed and electronically signed by: CRISTIAN BENZ DO on Aug 27 2024 4:31PM [facility] DIVISION OF RADIOLOGY No Panel InformationOrdered By: Ccf Provider on 08-27-2024 [facility] US ABD RIGHT UPPER QUADRANTo n [...] area of focal fatty sparing. 2. Hepatosplenomegaly Jacquard Loom Carpet Weaver: JOHN Transcribe Date/Time: Aug 27 2024 4:28P Dictated by : CRISTIAN BENZ DO This examination was interpreted and the report reviewed and electronically signed by: CRISTIAN BENZ DO on Aug 27 2024 4:31PM EST [id number] Normal [facility] US ABD SPLEEN - NBon 025 * * *Final Report* * * DATE OF EXAM: Aug 27 2024 2:16PM [facility] 1232 - US ABD SPLEEN -NB / [...] area of focal fatty sparing. 2. Hepatosplenomegaly Jacquard Loom Carpet Weaver: [facility] Transcribe Date/Time: Aug 27 2024 4:28P Dictated by : CRISTIAN BENZ DO This examination was interpreted and the report reviewed and electronically signed by: CRISTIAN BENZ DO on Aug 27 2024 4:31PM EST [facility] Radiology Study observation (narrative) [facility] US ABD SPLEEN -NBon 08-27-19 US [...] area of focal fatty sparing. 2. Hepatosplenomegaly Jacquard Loom Carpet Weaver: [facility] Transcribe Date/Time: Aug 27 2024 4:28P Dictated by : CRISTIAN BENZ DO This examination was interpreted and the report reviewed and electronically signed by: CRISTIAN BENZ DO on Aug 27 2024 4:31PM EST [id number] Normal [facility] US Abdomen RUQon 08-27-2024 * * *Final [...] DATE OF EXAM: Aug 27 2024 2:16PM [facility] 1032 - US ABD RIGHT UPPER QUADRANT [...] area of focal fatty sparing. 2. Hepatosplenomegaly Jacquard Loom Carpet Weaver: [facility] Transcribe Date/Time: Aug 27 2024 4:28P Dictated by : CRISTIAN BENZ DO This examination was interpreted and the report reviewed and electronically signed by: CRISTIAN BENZ DO on Aug 27 2024 4:31PM EST [facility] Radiology Study observation (narrative) [facility] CNOVon 08-24-2024 CNOV Office Visit (FAMPWS ) BETHANY MONTALVO ([id number]) 1965 M Date Time Provider Department 08/24/24 11:20 AM KEREN KWON During your visit today, we recorded the following information about you: Pulse Respiration Blood pressure 132/minute 16/minute 179/117 Keren Kwon APRN.AGRICULTURAL RESEARCH TECHNICIAN 08/24/2024 12:45 PM Signed This is a [...] Age of Onset Psychiatry Mother Heart Mother [place] 53 Heart Father [place] 51 Colon Cancer Father Social History Tobacco [...] (more content not included)... Normal [facility] Valdo 08-12-2024 [facility] Telephone (FAMPWS) BETHANY MONTALVO ([id number]) 1965 M Date Time Provider Department 08/12/24 [facility] your visit today, we recorded [...] [R74.8] Order(s):CONSULT TO UROLOGY [9041] Order #: [id number]: 1 FUTURE US ABD RIGHT UPPER QUADRANT [2183131] Order #: [id number] FUTURE predniSONE (DELTASONE) 10 mg tabletTake 4 [...] (more content not included)... Normal [facility] ALKALINE PHOSPHATASE ISOENZY MES (P)on 08-11-2024 ALK PHOS BONE % 27.2 % Normal 10.7-68.3 [facility] Comment on above: Order Comment: Speci men Type: BLOOD SPECIMENOrdering Facility: [facility] Address: [address] [place] [address] Performed By: #### A LKISOP ####[facility] LABCLIA [id number] [place] [address] [place] ALK PHOS LIVER % 72.8 % Normal 26.0-86.2 [facility] Comment on above: Order Comment: Speci men Type: BLOOD SPECIMENOrdering Facility: [facility] Address: [address] [place] [address] Performed By: #### A LKISOP ####[facility] LABCLIA [id number] [place] [address] [place] BONE FRACTION 39.2 U/L Normal 12.9-52.6 [facility] Comment on above: Order Comment: Speci men Type: BLOOD SPECIMENOrdering Facility: [facility] Address: [address] [place] [address] Performed By: #### A LKISOP ####[facility] LABCLIA [id number] [place] [address] [place] INTESTINE FRACTION 0.0 U/L Normal 0.0-16.3 [facility] Comment on above: Order Comment: Speci men Type: BLOOD SPECIMENOrdering Facility: [facility] Address: [address] [place] [address] Performed By: #### A LKISOP ####[facility] LABCLIA [id number] [place] [address] [place] LIVER FRACTION 104.8 U/L High 16.0-69.3 [facility] Comment on above: Order Comment: Speci men Type: BLOOD SPECIMENOrdering Facility: [facility] Address: [address] [place] [address] Performed By: #### A LKISOP ####[facility] LABCLIA [id number] [place] [address] [place] Neutrophils/100 WBC (Bld) 0.0 % Normal 0.0-24.2 [facility] Comment on above: Order Comment: Speci men Type: BLOOD SPECIMENOrdering Facility: [facility] Address: [address] [place] [address] Performed By: #### A LKISOP ####[facility] LABIA [id number] [place] [address] [place] ALP SerPl-cCncon 08-11-2024 ALP [Catalytic activity/Vol] 144 U/L High 38-113 [facility] Comment on above: Order Comment: Speci men Type: BLOOD SPECIMENOrdering Facility: [facility] Address: [address] [place] [address] Performed By: #### 6 768-6 ####[facility] LABCLIA [id number] [place] [id number] [place] Basic metabolic 2000 panelon 08-11-2024 Anion gap [Moles/Vol] 18 mmol/L High 8-15 [facility] Comment on above: Order Comment: Speci men Type: BLOOD SPECIMENOrdering Facility: [facility] Address: [address] [place] [address] Performed By: #### 1 988-5, 3084-1, 24406-9, 91320-4 ####[facility] LABIA [id number] [place] [address] [place] Calcium [Mass/Vol] 9.0 mg/dL Normal 8.5-10.2 [facility] Comment on above: Order Comment: Speci men Type: BLOOD SPECIMENOrdering Facility: [facility] Address: [address] [place] [address] Performed By: #### 1 988-5, 3084-1, 41288-6, 62263-9 ####[facility] LABIA [id number] [place] [address] [place] Chloride [Moles/Vol] 97 mmol/L Low 98-107 [facility] Comment on above: Order Comment: Speci men Type: BLOOD SPECIMENOrdering Facility: [facility] Address: [address] [place], [place] [address] Performed By: #### 1 988-5, 3084-1, 03835-4, 06320-8 ####[facility] LABCLIA [id number] [place] [id number] [place] CO2 [Moles/Vol] 21 mmol/L Low 22-30 [facility] Comment on above: Order Comment: Speci men Type: BLOOD SPECIMENOrdering Facility: [facility] Address: [address] [place] [id number] Performed By: #### 1 988-5, 3084-1, 75493-9, 46395-8 ####[facility] LABIA [id number] [address] [address] [place] Creatinine [Mass/Vol] 1.16 mg/dL Normal 0.73-1.22 [facility] Comment on above: Order Comment: Speci men Type: BLOOD SPECIMENOrdering Facility: [facility] Address: [address] [place] [address] Performed By: #### 1 988-5, 3084-1, 59708-6, 49414-7 ####[facility] [id number] [place] [address] [place] Creatinine and Glomerular filtration rate.predicted panel (S/P/Bld) 73 mL/min/1.73m??? Normal >=60 [facility] Comment on above: Order Comment: Speci men Type: BLOOD SPECIMENOrdering Facility: [facility] Address: [address] [place] [address] Result Comment: Misty mated Glomerular Filtration Rate [...] GFR. Performed By: #### 1 988-5, 3084-1, 55873-1, 47711-8 ####[facility] LABIA [id number] [place] [id number] [place] Glucose [Mass/Vol] 109 mg/dL High 74-99 [facility] Comment on above: Order Comment: Speci men Type: BLOOD SPECIMENOrdering Facility: [facility] Address: [address] [place] [address] Result Comment: The [place] Diabetes Association (ADA) provides guidance for cutoff [...] Standards of Medical Care in Diabetes 2016, [place] [employer] Association. Diabetes Care. 2016.39(Suppl 1). Performed By: #### 1 988-5, 3084-1, 51175-9, 51328-5 ####[facility] LABCLIA [id number] [place] [address] [place] Potassium [Moles/Vol] 4.6 mmol/L Normal 3.7-5.1 [facility] Comment on above: Order Comment: Speci men Type: BLOOD SPECIMENOrdering Facility: [facility] Address: [address] [place] [address] Performed By: #### 1 988-5, 3084-1, 23209-5, 57660-5 ####[facility] LABIA [id number] [place] [address] [place] Sodium [Moles/Vol] 136 mmol/L Normal 136-144 [facility] Comment on above: Order Comment: Speci men Type: BLOOD SPECIMENOrdering Facility: [facility] Address: [address] [place] [address] Performed By: #### 1 988-5, 3084-1, 91305-0, 82327-8 ####[facility] LABCLIA [id number] [place] [address] [place] Urea nitrogen [Mass/Vol] 9 mg/dL Normal 9-24 [facility] Comment on above: Order Comment: Speci men Type: BLOOD SPECIMENOrdering Facility: [facility] Address: [address] [place] [address] Performed By: #### 1 988-5, 3084-1, 31661-2, 76126-5 ####[facility] LABCLIA [id number] [place] [address] [place] CBC W Auto Differential pane l (Bld)on 08-11-2024 Basophils (Bld) [#/Vol] 0.03 10*3/uL Normal <0.11 [facility] Comment on above: Order Comment: Speci men Type: BLOOD SPECIMENOrdering Facility: [facility] Address: [address] [place] [address] Performed By: #### 4 537-7, 11826-4 ####[facility] LABCLIA [id number] [place] [address] [place] Basophils/100 WBC (Bld) 0.4 % Normal [facility] Comment on above: Order Comment: Speci men Type: BLOOD SPECIMENOrdering Facility: [facility] Address: [address] [place] [address] Performed By: #### 4 537-7, 04433-3 ####[facility] LABCLIA [id number] [place] [address] [place] Differential cell count method Nom (Bld) Auto Normal [facility] Comment on above: Order Comment: Speci men Type: BLOOD SPECIMENOrdering Facility: [facility] Address: [address] [place] [address] Performed By: #### 4 537-7, 83067-4 ####[facility] LABCLIA [id number] [place] [address] [place] Eosinophils (Bld) [#/Vol] 0.06 10*3/uL Normal <0.46 [facility] Comment on above: Order Comment: Speci men Type: BLOOD SPECIMENOrdering Facility: [facility] Address: [address] [place] [address] Performed By: #### 4 537-7, 04701-3 ####[facility] LABCLIA [id number] [place] [address] [place] Eosinophils/100 WBC (Bld) 0.9 % Normal [facility] Comment on above: Order Comment: Speci men Type: BLOOD SPECIMENOrdering Facility: [facility] Address: [address] [place] [address] Performed By: #### 4 537-7, 83151-5 ####[facility] LABCLIA [id number] [place] [address] [place] Erythrocyte distribution width (RBC) [Ratio] 11.4 % Low 11.5-15.0 [facility] Comment on above: Order Comment: Speci men Type: BLOOD SPECIMENOrdering Facility: [facility] Address: [address] [place] [address] Performed By: #### 4 537-7, 22454-4 ####[facility] LABCLIA [id number] [place] [address] [place] Hematocrit (Bld) [Volume fraction] 43.6 % Normal 39.0-51.0 [facility] Comment on above: Order Comment: Speci men Type: BLOOD SPECIMENOrdering Facility: [facility] Address: [address] [place] [address] Performed By: #### 4 537-7, 29780-6 ####[facility] LABCLIA [id number] [place] [address] [place] Hemoglobin (Bld) [Mass/Vol] 15.6 g/dL Normal 13.0-17.0 [facility] Comment on above: Order Comment: Speci men Type: BLOOD SPECIMENOrdering Facility: [facility] Address: [address] [place] [address] Performed By: #### 4 537-7, 44616-4 ####[facility] LABCLIA [id number] [place] [address] [place] Immature granulocytes (Bld) [#/Vol] 10*3/uL Normal <0.10 [facility] Comment on above: Order Comment: Speci men Type: BLOOD SPECIMENOrdering Facility: [facility] Address: [address] [place] [address] Performed By: #### 4 537-7, 39177-8 ####[facility] LABCLIA [id number] [place] [address] [place] Immature granulocytes/100 WBC (Bld) 0.1 % Normal [facility] Comment on above: Order Comment: Speci men Type: BLOOD SPECIMENOrdering Facility: [facility] Address: [address] [place] [address] Performed By: #### 4 537-7, 10200-0 ####[facility] LABCLIA [id number] [place] [address] [place] Lymphocytes (Bld) [#/Vol] 1.12 10*3/uL Normal 1.00-4.00 [facility] Comment on above: Order Comment: Speci men Type: BLOOD SPECIMENOrdering Facility: [facility] Address: [address] [place] [address] Performed By: #### 4 537-7, 62933-3 ####[facility] LABCLIA [id number] [place] [address] [place] Lymphocytes/100 WBC (Bld) 16.8 % Normal [facility] Comment on above: Order Comment: Speci men Type: BLOOD SPECIMENOrdering Facility: [facility] Address: [address] [place] [address] Performed By: #### 4 537-7, 16751-7 ####[facility] LABCLIA [id number] [place] [address] [place] MCH (RBC) [Entitic mass] 34.0 pg Normal 26.0-34.0 [facility] Comment on above: Order Comment: Speci men Type: BLOOD SPECIMENOrdering Facility: [facility] Address: [address] [place] [address] Performed By: #### 4 537-7, 82900-6 ####[facility] LABCLIA [id number] [place] [address] [place] MCHC (RBC) [Mass/Vol] 35.8 g/dL Normal 30.5-36.0 [facility] Comment on above: Order Comment: Speci men Type: BLOOD SPECIMENOrdering Facility: [facility] Address: [address] [place] [address] Performed By: #### 4 537-7, 85475-8 ####[facility] LABCLIA [id number] [place] [address] [place] MCV (RBC) [Entitic vol] 95.0 fL Normal 80.0-100.0 [facility] Comment on above: Order Comment: Speci men Type: BLOOD SPECIMENOrdering Facility: [facility] Address: [address] [place] [address] Performed By: #### 4 537-7, 68886-3 ####[facility] LABCLIA [id number] [place] [address] [place] Monocytes (Bld) [#/Vol] 0.44 10*3/uL Normal <0.87 [facility] Comment on above: Order Comment: Speci men Type: BLOOD SPECIMENOrdering Facility: [facility] Address: [address] [place] [address] Performed By: #### 4 537-7, 50232-9 ####[facility] LABCLIA [id number] [place] [address] [place] Monocytes/100 WBC (Bld) 6.6 % Normal [facility] Comment on above: Order Comment: Speci men Type: BLOOD SPECIMENOrdering Facility: [facility] Address: [address] [place] [address] Performed By: #### 4 537-7, 78756-0 ####[facility] LABCLIA [id number] [place] [address] [place] Neutrophils (Bld) [#/Vol] 5.01 10*3/uL Normal 1.45-7.50 [facility] Comment on above: Order Comment: Speci men Type: BLOOD SPECIMENOrdering Facility: [facility] Address: [address] [place] [address] Performed By: #### 4 537-7, 55261-0 ####[facility] LABCLIA [id number] [place] [address] [place] Neutrophils/100 WBC (Bld) 75.2 % Normal [facility] Comment on above: Order Comment: Speci men Type: BLOOD SPECIMENOrdering Facility: [facility] Address: [address] [place] [address] Performed By: #### 4 537-7, 46392-1 ####[facility] LABCLIA [id number] [place] [address] [place] Nucleated RBC (Bld) [#/Vol] 10*3/uL Normal <0.01 [facility] Comment on above: Order Comment: Speci men Type: BLOOD SPECIMENOrdering Facility: [facility] Address: [address] [place] [address] Performed By: #### 4 537-7, 55651-8 ####[facility] LABCLIA [id number] [place] [address] [place] Nucleated RBC/100 WBC (Bld) [Ratio] 0.0 /100 WBC Normal [facility] Comment on above: Order Comment: Speci men Type: BLOOD SPECIMENOrdering Facility: [facility] Address: [address] [place] [address] Performed By: #### 4 537-7, 76096-2 ####[facility] LABCLIA [id number] [address] [address] [place] Platelet mean volume (Bld) [Entitic vol] 10.3 fL Normal 9.0-12.7 [facility] Comment on above: Order Comment: Speci men Type: BLOOD SPECIMENOrdering Facility: [facility] Address: [address] [place] [address] Performed By: #### 4 537-7, 54123-0 ####[facility] LABIA [id number] [place] [address] [place] Platelets (Bld) [#/Vol] 136 10*3/uL Low 150-400 [facility] Comment on above: Order Comment: Speci men Type: BLOOD SPECIMENOrdering Facility: [facility] Address: [address] [place] [address] Performed By: #### 4 537-7, 15520-7 ####[facility] LABIA [id number] [place] [address] [place] RBC (Bld) [#/Vol] 4.59 10*6/uL Normal 4.20-6.00 [facility] Comment on above: Order Comment: Speci men Type: BLOOD SPECIMENOrdering Facility: [facility] Address: [address] [place] [address] Performed By: #### 4 537-7, 13236-9 ####[facility] LABIA [id number] [place] [id number] [place] WBC (Bld) [#/Vol] 6.67 10*3/uL Normal 3.70-11.00 [facility] Comment on above: Order Comment: Speci men Type: BLOOD SPECIMENOrdering Facility: [facility] Address: [address] [place] [address] Performed By: #### 4 537-7, 78240-0 ####[facility] LABIA [id number] [address] [address] [place] CNOVon 08-11-2024 CNOV Office Visit (FAMPWS ) BETHANY MONTALVO ([id number]) 1965 M Date Time Provider Department 08/11/24 1:00 PM KEREN KWON During your visit today, we recorded the following information about you: Temperature Pulse Respiration Blood pressure 99.9 degrees 120/minute 16/minute 162/86 Keren Kwon APRN.AGRICULTURAL RESEARCH TECHNICIAN 08/11/2024 2:07 PM Signed This is a 58 year old male who presents today with: Patient presents with: ER F/U: [facility] ER f/u 07/23/24 dx: L knee pain HISTORY OF PRESENT ILLNESS: Bethany Montalvo is a 58 year old male. Patient presents with: ER F/U: [facility] ER f/u 07/23/24 dx: L knee pain [...] Age of Onset Psychiatry Mother Heart Mother [place] 53 Heart Father [place] 51 Colon Cancer Father Social History Tobacco [...] (more content not included)... Normal [facility] CRP SerPl-mCncon 08-11-2024 CRP [Mass/Vol] 0.5 mg/dL Normal <0.9 [facility] Comment on above: Order Comment: Speci men Type: BLOOD SPECIMENOrdering Facility: [facility] Address: [address] [place] [address] Performed By: #### 1 988-5, 3084-1, 28584-3, 54078-9 ####[facility] LABCLIA [id number] [facility] [id number] [address] [place] ESR Westergren method (Bld) [Velocity]on 08-11-2024 ESR (Bld) [Velocity] 9 mm/h Normal 0-15 [facility] Comment on above: Order Comment: Speci men Type: BLOOD SPECIMENOrdering Facility: [facility] Address: [address] [place] [address] Performed By: #### 4 537-7, 33120-3 ####[facility] LABIA [id number] [place] [address] [place] Free PSA [Mass/Vol]on 2024 Free PSA/Total PSA [Mass fraction] 10 % Normal [facility] Comment on above: Order Comment: Speci men Type: BLOOD SPECIMENOrdering Facility: [facility] Address: [address] [place] [address] Result Comment: Tota l and free PSA [...] 15.8% Performed By: #### 1 988-5, 3084-1, 80415-5, 29628-5 ####[facility] LABCLIA [id number] [place] [address] [place] Prostate specific Ag [Mass/Vol] 4.05 ng/mL High <2.60 [facility] Comment on above: Order Comment: Speci men Type: BLOOD SPECIMENOrdering Facility: [facility] Address: [address] [place] [address] Result Comment: Tota l PSA test methodology used is the Electrochemiluminescence Immunoassay by [employer]. Total PSA values by differing methodologies [...] 2003,349:335-42. Performed By: #### 1 988-5, 3084-1, 03269-5, 26273-3 ####[facility] LABIA [id number] [place] [address] [place] Osmolality Uron 08-11-2024 Osmolality (U) [Osmolality] 163 mosm/kg Normal 50-1200 [facility] Comment on above: Order Comment: Speci men Type: URINE SPECIMENOrdering Facility: [facility] Address: [address] [place] [address] Performed By: #### 2 695-5 ####[facility] [id number] [place] [address] [place] Sodium ?Tm Ur-sCncon 025 Sodium Unsp time (U) [Moles/Vol] 30 mmol/L Normal 14-216 [facility] Comment on above: Order Comment: Speci men Type: URINE SPECIMENOrdering Facility: [facility] Address: [address] [place] [address] Performed By: #### 3 5678-2 ####[facility] LABIA [id number] [place] [address] [place] Urate SerPl-mCncon 5 Urate [Mass/Vol] 9.9 mg/dL High 4.0-8.1 [facility] Comment on above: Order Comment: Speci men Type: BLOOD SPECIMENOrdering Facility: [facility] Address: [address] [place] [address] Performed By: #### 1 988-5, 3084-1, 64757-5, 47591-6 ####[facility] LABCLIA [id number] [place] [place] [address] [place] XR KNEE 4V [...] imaging/MRI can be performed for further evaluation Jacquard Loom Carpet Weaver: JOHN Transcribe Date/Time: Aug 13 2024 4:59P Dictated by : MIN GUTIERREZ MD This examination was interpreted and the report reviewed and electronically signed by: MIN GUTIERREZ MD on Aug 13 2024 5:02PM EST [id number] Normal [facility] CNPNon 08-07-2024 CNPN Telephone (FAMPWS) BETHANY MONTALVO ([id number]) 1965 M Date Time Provider Department 08/07/24 [...] Date Reviewed: 07/13/2024 Reviewed by: Rosa Wade APRN.AGRICULTURAL RESEARCH TECHNICIAN - Fully Assessed Reason for Visit: Results [95] Primary Visit Diagnosis:Hyponatremia [E87.1] Other Visit Diagnoses:Elevated alkaline phosphatase level [R74.8] Elevated PSA [R97.20] Elevated hemoglobin (HCC) [D58.2] Order(s):BASIC METABOLIC PANEL [SQBMP] Order #: [id number] FUTURE SODIUM RANDOM URINE [SQUNAR] Order #: [id number] FUTURE OSMOLALITY URINE [SQUOSM] Order #: [id number] FUTURE ALK PHOS ISOENZYM BL [SQALKISO] Order #: [id number] FUTURE PROSTATE SPECIFIC ANTIGEN, FREE [SQPSATF] Order #: [id number] FUTURE COMPLETE BLOOD COUNT AND DIFFERENTIAL [SQCBCDIF] Order #: [id number] FUTURE Prescriptions as of 08/07/2024 - busPIRone [...] DONNA RICHEY on 08/07/24 Normal [facility] CBC W Auto Differential pane l (Bld)on 08-05-2024 Basophils (Bld) [#/Vol] 0.04 10*3/uL Normal <0.11 [facility] Comment on above: Order Comment: Speci men Type: BLOOD SPECIMENOrdering Facility: [facility] Address: [address] [place] [address] Performed By: #### 5 7021-8 ####[facility] [id number] [place] [address] [place] Basophils/100 WBC (Bld) 0.4 % Normal [facility] Comment on above: Order Comment: Speci men Type: BLOOD SPECIMENOrdering Facility: [facility] Address: [address] [place] [address] Performed By: #### 5 7021-8 ####[facility] [id number] [place] [address] [place] Differential cell count method Nom (Bld) Auto Normal [facility] Comment on above: Order Comment: Speci men Type: BLOOD SPECIMENOrdering Facility: [facility] Address: [address] [place] [address] Performed By: #### 5 7021-8 ####[facility] [id number] [place] [address] [place] Eosinophils (Bld) [#/Vol] 0.09 10*3/uL Normal <0.46 [facility] Comment on above: Order Comment: Speci men Type: BLOOD SPECIMENOrdering Facility: [facility] Address: [address] [place] [address] Performed By: #### 5 7021-8 ####[facility] [id number] [place] [address] [place] Eosinophils/100 WBC (Bld) 0.9 % Normal [facility] Comment on above: Order Comment: Speci men Type: BLOOD SPECIMENOrdering Facility: [facility] Address: [address] [place] [address] Performed By: #### 5 7021-8 ####[facility] [id number] [place] [address] [place] Erythrocyte distribution width (RBC) [Ratio] 11.7 % Normal 11.5-15.0 [facility] Comment on above: Order Comment: Speci men Type: BLOOD SPECIMENOrdering Facility: [facility] Address: [address] [place] [address] Performed By: #### 5 7021-8 ####[facility] [id number] [place] [address] [place] Hematocrit (Bld) [Volume fraction] 49.8 % Normal 39.0-51.0 [facility] Comment on above: Order Comment: Speci men Type: BLOOD SPECIMENOrdering Facility: [facility] Address: [address] [place] [address] Performed By: #### 5 7021-8 ####[facility] [id number] [place] [address] [place] Hemoglobin (Bld) [Mass/Vol] 18.0 g/dL High 13.0-17.0 [facility] Comment on above: Order Comment: Speci men Type: BLOOD SPECIMENOrdering Facility: [facility] Address: [address] [place] [address] Performed By: #### 5 7021-8 ####[facility] [id number] [place] [address] [place] Immature granulocytes (Bld) [#/Vol] 0.08 10*3/uL Normal <0.10 [facility] Comment on above: Order Comment: Speci men Type: BLOOD SPECIMENOrdering Facility: [facility] Address: [address] [place] [address] Performed By: #### 5 7021-8 ####[facility] MAIKLIA [id number] [place] [address] [place] Immature granulocytes/100 WBC (Bld) 0.8 % Normal [facility] Comment on above: Order Comment: Speci men Type: BLOOD SPECIMENOrdering Facility: [facility] Address: [address] [place] [address] Performed By: #### 5 7021-8 ####[facility]ALIA [id number] [place] [address] [place] Lymphocytes (Bld) [#/Vol] 1.71 10*3/uL Normal 1.00-4.00 [facility] Comment on above: Order Comment: Speci men Type: BLOOD SPECIMENOrdering Facility: [facility] Address: [address] [place] [address] Performed By: #### 5 7021-8 ####[facility]AL[facility] [id number] [place] [address] [place] Lymphocytes/100 WBC (Bld) 17.6 % Normal [facility] Comment on above: Order Comment: Speci men Type: BLOOD SPECIMENOrdering Facility: [facility] Address: [address] [place] [address] Performed By: #### 5 7021-8 ####[facility] [id number] [place] [address] [place] MCH (RBC) [Entitic mass] 33.6 pg Normal 26.0-34.0 [facility] Comment on above: Order Comment: Speci men Type: BLOOD SPECIMENOrdering Facility: [facility] Address: [address] [place] [address] Performed By: #### 5 7021-8 ####[facility] [id number] [place] [address] [place] MCHC (RBC) [Mass/Vol] 36.1 g/dL High 30.5-36.0 [facility] Comment on above: Order Comment: Speci men Type: BLOOD SPECIMENOrdering Facility: [facility] Address: [address] [place] [address] Performed By: #### 5 7021-8 ####[facility] [id number] [place] [address] [place] MCV (RBC) [Entitic vol] 93.1 fL Normal 80.0-100.0 [facility] Comment on above: Order Comment: Speci men Type: BLOOD SPECIMENOrdering Facility: [facility] Address: [address] [place] [address] Performed By: #### 5 7021-8 ####[facility] [id number] [place] [address] [place] Monocytes (Bld) [#/Vol] 0.58 10*3/uL Normal <0.87 [facility] Comment on above: Order Comment: Speci men Type: BLOOD SPECIMENOrdering Facility: [facility] Address: [address] [place] [address] Performed By: #### 5 7021-8 ####[facility] [id number] [place] [address] [place] Monocytes/100 WBC (Bld) 6.0 % Normal [facility] Comment on above: Order Comment: Speci men Type: BLOOD SPECIMENOrdering Facility: [facility] Address: [address] [place] [address] Performed By: #### 5 7021-8 ####[facility]ITAL[facility]CL[facility] [id number] [place] [address] [place] Neutrophils (Bld) [#/Vol] 7.19 10*3/uL Normal 1.45-7.50 [facility] Comment on above: Order Comment: Speci men Type: BLOOD SPECIMENOrdering Facility: [facility] Address: [address] [place] [address] Performed By: #### 5 7021-8 ####[facility] [id number] [place] [address] [place] Neutrophils/100 WBC (Bld) 74.3 % Normal [facility] Comment on above: Order Comment: Speci men Type: BLOOD SPECIMENOrdering Facility: [facility] Address: [address] [place] [address] Performed By: #### 5 7021-8 ####[facility] [id number] [place] [address] [place] Nucleated RBC (Bld) [#/Vol] 10*3/uL Normal <0.01 [facility] Comment on above: Order Comment: Speci men Type: BLOOD SPECIMENOrdering Facility: [facility] Address: [address] [place] [address] Performed By: #### 5 7021-8 ####[facility] [id number] [place] [address] [place] Nucleated RBC/100 WBC (Bld) [Ratio] 0.0 /100 WBC Normal [facility] Comment on above: Order Comment: Speci men Type: BLOOD SPECIMENOrdering Facility: [facility] Address: [address] [place] [address] Performed By: #### 5 7021-8 ####[facility] [id number] [place] [address] [place] Platelet mean volume (Bld) [Entitic vol] 9.5 fL Normal 9.0-12.7 [facility] Comment on above: Order Comment: Speci men Type: BLOOD SPECIMENOrdering Facility: [facility] Address: [address] [place] [address] Performed By: #### 5 7021-8 ####[facility] RAPHAEL KASEYNCFLAKITAA [id number] [place] [address] [place] Platelets (Bld) [#/Vol] 184 10*3/uL Normal 150-400 [facility] Comment on above: Order Comment: Speci men Type: BLOOD SPECIMENOrdering Facility: [facility] Address: [address] [place] [address] Performed By: #### 5 7021-8 ####[facility] KASEYNCLIA [id number] [place] [address] [place] RBC (Bld) [#/Vol] 5.35 10*6/uL Normal 4.20-6.00 [facility] Comment on above: Order Comment: Speci men Type: BLOOD SPECIMENOrdering Facility: [facility] Address: [address] [place] [address] Performed By: #### 5 7021-8 ####[facility] MARY CARMENTUXEDO PARKNCLIA [id number] [place] [address] [place] WBC (Bld) [#/Vol] 9.69 10*3/uL Normal 3.70-11.00 [facility] Comment on above: Order Comment: Speci men Type: BLOOD SPECIMENOrdering Facility: [facility] Address: [address] [place] [address] Performed By: #### 5 7021-8 ####[facility]ITAL[facility]CL[facility] [id number] [place] [address] [facility] [place] Comprehensive metabolic 2000 panelon 08-05-2024 Albumin [Mass/Vol] 4.7 g/dL Normal 3.9-4.9 [facility] Comment on above: Order Comment: Speci men Type: BLOOD SPECIMENOrdering Facility: [facility] Address: [address] [place] [address] Performed By: #### 2 4323-8, ####[facility] RAPHAEL MILLTOWNCLIA [id number] [place] [address] [place] ALP [Catalytic activity/Vol] 169 U/L High 38-113 [facility] Comment on above: Order Comment: Speci men Type: BLOOD SPECIMENOrdering Facility: [facility] Address: [address] [place] [address] Performed By: #### 2 4323-8, ####[facility] MILLTOWNCLIA [id number] [place] [address] [place] ALT [Catalytic activity/Vol] 42 U/L Normal 10-54 [facility] Comment on above: Order Comment: Speci men Type: BLOOD SPECIMENOrdering Facility: [facility] Address: [address] [place] [address] Performed By: #### 2 4323-8, ####[facility] MILLTOWNCLIA [id number] [place] [address] [place] Anion gap [Moles/Vol] 11 mmol/L Normal 8-15 [facility] Comment on above: Order Comment: Speci men Type: BLOOD SPECIMENOrdering Facility: [facility] Address: [address] [place] [address] Performed By: #### 2 4323-8, ####[facility] MILLTOWNCLIA [id number] [place] [address] [place] AST [Catalytic activity/Vol] 70 U/L High 14-40 [facility] Comment on above: Order Comment: Speci men Type: BLOOD SPECIMENOrdering Facility: [facility] Address: [address] [place] [address] Performed By: #### 2 4323-8, ####[facility] MILLTOWNCLIA [id number] [place] [address] [place] Bilirubin [Mass/Vol] 0.7 mg/dL Normal 0.2-1.3 [facility] Comment on above: Order Comment: Speci men Type: BLOOD SPECIMENOrdering Facility: [facility] Address: [address] [place] [address] Performed By: #### 2 4323-8, ####[facility] MILLWNCLIA [id number] [place] [address] [place] Calcium [Mass/Vol] 10.3 mg/dL High 8.5-10.2 [facility] Comment on above: Order Comment: Speci men Type: BLOOD SPECIMENOrdering Facility: [facility] Address: [address] [place] [address] Performed By: #### 2 4323-8, ####[facility] P[facility]LLASWKASSANDRALIA [id number] [place] [address] [place] Chloride [Moles/Vol] 94 mmol/L Low 98-107 [facility] Comment on above: Order Comment: Speci men Type: BLOOD SPECIMENOrdering Facility: [facility] Address: [address] [place] [address] Performed By: #### 2 4323-8, ####[facility] MILLTOWNCLIA [id number] [place] [address] [place] CO2 [Moles/Vol] 27 mmol/L Normal 22-30 [facility] Comment on above: Order Comment: Speci men Type: BLOOD SPECIMENOrdering Facility: [facility] Address: [address] [place] [address] Performed By: #### 2 4323-8, ####[facility] MILLTOWNCLIA [id number] [place] [address] [place] Creatinine [Mass/Vol] 1.26 mg/dL High 0.73-1.22 [facility] Comment on above: Order Comment: Chirag jeffrey Type: BLOOD SPECIMENOrdering Facility: [facility] Address: [address] [place] [address] Performed By: #### 2 4323-8, ####[facility] HOSPITALNCLI [id number] [place] [address] [place] Creatinine and Glomerular filtration rate.predicted panel (S/P/Bld) 67 mL/min/1.73m??? Normal >=60 [facility] Comment on above: Order Comment: Chirag jeffrey Type: BLOOD SPECIMENOrdering Facility: [facility] Address: [address] [place] [address] Result Comment: Misty mated Glomerular Filtration Rate [...] actual GFR. Performed By: #### 2 4323-8, ####[facility] HOSPITALNCLIA [id number] [place] [address] [place] Glucose [Mass/Vol] 112 mg/dL High 74-99 [facility] Comment on above: Order Comment: Chirag jeffrey Type: BLOOD SPECIMENOrdering Facility: [facility] Address: [address] [place] [address] Result Comment: The [place] Diabetes Association (ADA) provides guidance for cutoff [...] Standards of Medical Care in Diabetes 2016, [place] Diabetes Association. Diabetes Care. 2016.39(Suppl 1). Performed By: #### 2 432-8, ####[facility] HOSPITALLIPrachi [id number] [place] [address] [place] Potassium [Moles/Vol] 4.8 mmol/L Normal 3.7-5.1 [facility] Comment on above: Order Comment: Speci men Type: BLOOD SPECIMENOrdering Facility: [facility] Address: [address] [place], [place] [address] Performed By: #### 2 4323-02, ####[facility] [id number] [place] [address] [place] Protein [Mass/Vol] 8.0 g/dL Normal 6.3-8.0 [facility] Comment on above: Order Comment: Speci men Type: BLOOD SPECIMENOrdering Facility: [facility] Address: [address] [place], [place] [address] Performed By: #### 2 4323-02, ####[facility] [id number] [place] [address] [place] Sodium [Moles/Vol] 132 mmol/L Low 136-144 [facility] Comment on above: Order Comment: Speci men Type: BLOOD SPECIMENOrdering Facility: [facility] Address: [address] [place] [address] Performed By: #### 2 432-, ####[facility] [id number] [place] [address] [place] Urea nitrogen [Mass/Vol] 11 mg/dL Normal 9-24 [facility] Comment on above: Order Comment: Speci men Type: BLOOD SPECIMENOrdering Facility: [facility] Address: [address] [place] [address] Performed By: #### 2 4323-8, 38247-5 ####[facility] [id number] [place] [address] [place] Folate [facility]19 25 Folate [Mass/Vol] ng/mL Normal >4.7 [facility] Comment on above: Order Comment: Speci men Type: BLOOD SPECIMENOrdering Facility: [facility] Address: [address] [place] [address] Result Comment: A re sult of > 20 ng/mL is not necessarily indicative of a pathologic or treatable condition: it reflects a limitation of the test methodology. Assay reference range: 4.8 to 24.2 ng/mL. Suitable for detection of folate deficiency. Reference: Folate III (Folate III) [package insert V 1.0 Russian]. [facility], [place], [place]: May 2015. Performed By: #### 2 132-9, 8 ####[facility] LABCLIA [id number] [place] [address] [place]#### 80122-3 ####[facility] LABCLIA [id number] [place] [address] [place] [facility] [id number] [place] [address] [place] Lipid 1996 panelon 5 Cholesterol [Mass/Vol] 218 mg/dL High <200 [facility] Comment on above: Order Comment: Speci men Type: BLOOD SPECIMENOrdering Facility: [facility] Address: [address] [place] [address] Result Comment: <200 mg/dL, Desirable 200-239 mg/dL, Borderline high >239 mg/dL, High Performed By: #### 2 132-9, 2283-8 ####[facility] LABCLIA [id number] [place] [address] [place]#### 13391-0 ####[facility] LABCLIA [id number] [address] [id number] [place] [address] [place] Cholesterol in HDL [Mass/Vol] 29 mg/dL Low >39 [facility] Comment on above: Order Comment: Speci men Type: BLOOD SPECIMENOrdering Facility: [facility] Address: [address] [place] [address] Result Comment: 40-5 9 mg/dL, Acceptable >59 mg/dL, High: Negative risk factor for coronary heart disease <40 mg/dL, Low: Positive risk factor for coronary heart disease Performed By: #### 2 132-9, 2283-8 ####[facility] LABCLIA [id number] [place] [address] [place]#### 46585-1 ####[facility] LABCLIA [id number] [address] [id number] [place] [address] [place] Cholesterol in LDL [Mass/Vol] 124 mg/dL High <100 [facility] Comment on above: Order Comment: Speci men Type: BLOOD SPECIMENOrdering Facility: [facility] Address: [address] [place] [address] Result Comment: <100 mg/dL, Optimal 100-129 mg/dL, Near optimal/above optimal 130-159 mg/dL, Borderline high 160-189 mg/dL, High >189 mg/dL, Very high Secondary prevention optimal LDL Cholesterol levels are recommended to be < 70 mg/dL Performed By: #### 2 132-9, 228-8 ####[facility] LABCLIA [id number] [address] [place]#### 55278-7 ####[facility] LABCLIA [id number] [address] [id number] [address] STATES [facility] Cholesterol in LDL/Cholesterol in HDL [Mass ratio] 4.28 {ratio} High <2.54 [facility] Comment on above: Order Comment: Speci men Type: BLOOD SPECIMENOrdering Facility: [facility] Address: [address] [place] [address] Result Comment: Refe venessa: 1. National Cholesterol Education Program ATP III Guideline At-A-Glance Quick Desk Reference: National Heart, Lung, and Blood [place]. National Institutes of Health. 2001: NIH Publication No. 01-3305. 2. An International Atherosclerosis Society position paper: global recommendations for the management of dyslipidemia: executive summary, Atherosclerosis. 2014: 232(2):410-413. Performed By: #### 2 132-9, 2283-8 ####[facility] LABCLIA [id number] [place] [address] [place]#### 71926-3 ####[facility] LABCLIA [id number] [address] [id number] [place] [address] [place] Cholesterol in VLDL [Mass/Vol] 65 mg/dL High <30 [facility] Comment on above: Order Comment: Speci men Type: BLOOD SPECIMENOrdering Facility: [facility] Address: [address] [place] [address] Performed By: #### 2 132-9, 2283-8 ####[facility] LABCLIA [id number] [place] [address] [place]#### 54094-3 ####[facility] LABCLIA [id number] [address] [id number] [place] [address] [place] Cholesterol non HDL [Mass/Vol] 189 mg/dL High <130 [facility] Comment on above: Order Comment: Speci men Type: BLOOD SPECIMENOrdering Facility: [facility] Address: [address] [place] [address] Result Comment: <130 mg/dL, Optimal 130-159 mg/dL, Near optimal/above optimal 160-189 mg/dL, Borderline high 190-219 mg/dL, High >219 mg/dL, Very high Secondary prevention optimal non HDL Cholesterol levels are recommended to be <100 mg/dL Performed By: #### 2 132-9, 2283-8 ####[facility] LABCLIA [id number] [place] [address] [place]#### 61378-8 ####[facility] LABCLIA [id number] [address] STATES [facility] [id number] [place] [address] [place] Cholesterol.total/Cho lesterol in HDL [Mass ratio] 7.52 {ratio} High <5.10 [facility] Comment on above: Order Comment: Speci men Type: BLOOD SPECIMENOrdering Facility: [facility] Address: [address] [place] [address] Performed By: #### 2 132-9, 2283-8 ####[facility] LABCLIA [id number] [place] [address] [place]#### 72629-4 ####[facility] LABCLIA [id number] [address] STATES OF [facility] [id number] [place] [address] [place] FASTING TIME 12 hrs Normal [facility] Comment on above: Order Comment: Speci men Type: BLOOD SPECIMENOrdering Facility: [facility] Address: [address] [place] [address] Performed By: #### 2 132-9, 4-8 ####[facility] LABCLIA [id number] [place] [address] [place]#### 00479-4 ####[facility] LABCLIA [id number] [place] [address] [place] [facility] [id number] [place] [address] [place] Triglyceride [Mass/Vol] 324 mg/dL High <150 [facility] Comment on above: Order Comment: Speci men Type: BLOOD SPECIMENOrdering Facility: [facility] Address: [address] [place] [address] Result Comment: <150 mg/dL, Normal 150-199 mg/dL, Borderline high 200-499 mg/dL, High >499 mg/dL, Very high Performed By: #### 2 132-9, 8 ####[facility] LABCLIA [id number] [place] [address] [place]#### 67598-5 ####[facility] LABCLIA [id number] [place] [address] [place] [facility] [id number] [place] [address] [place] Magnesium SerPl-ncon 08-05 Magnesium [Mass/Vol] 1.8 mg/dL Normal 1.7-2.3 [facility] Comment on above: Order Comment: Speci men Type: BLOOD SPECIMENOrdering Facility: [facility] Address: [address] [place] [address] Performed By: #### 2 4323-8, 36334-3 ####[facility] [id number] [place] [address] [place] PSA/PROSTATE SPECIFIC ANTIGE N SCREENINGon 08-05-2024 Prostate specific Ag [Mass/Vol] 4.82 ng/mL High <2.60 [facility] Comment on above: Order Comment: Speci men Type: BLOOD SPECIMENOrdering Facility: [facility] Address: [address] [place] [address] Result Comment: Tota l PSA test methodology [...] Med 2003,349:335-42. Performed By: #### P SAS1 ####[facility] LABCLIA [id number] [place] [id number] [place] US CAROTID ARTERIES [facility] LABon 08-05-2024 US CAROTID ARTERIES [facility] LAB Non-Invasive Vascular Laboratory [facility] Carotid Duplex Bilateral/Complete Date of service/time: 08/05/2024 [...] interpretation criteria are used as recommended by [employer]. When compared with the prior [...] Subclavian artery: Patent. Technologist: Lizzie Stephenson RV[facility] Ordering physician: KEREN KWON Interpreting physician: NEFTALI Luna DO Final CC NavigatorMD Medical Image : [id number] goDynamicsSISUID See Link below for Image Normal [facility] Vit B12 [facility] 15-2 025 Cobalamin (Vitamin B12) [Mass/Vol] 366 pg/mL Normal 232-1245 [facility] Comment on above: Order Comment: Speci men Type: BLOOD SPECIMENOrdering Facility: [facility] Address: [address] [place] [address] Performed By: #### 2 132-9, 2284-8 ####[facility] LABCLIA [id number] [place] [address] [place]#### 36325-2 ####[facility] LABCLIA [id number] [place] [address] [facility] [id number] [place] [address] [facility] Ankle min 3 Viewson 07-23-19 Ankle min 3 Views [facility] Imaging Services [address] [place] [address] Ankle min 3 Views MR#: [id number] Acct: [id number] Name: BETHANY MONTALVO Rep #: [id number] : 1965 M 58 From: Sherwin wells MD PCP: XUAN Armendariz Status: PRE ER Study: Ankle min 3 Views Date of Exam: 07/23/24 Exam# [id number] Ordering Dr: Provider,Junaid P. [id number] STUDY: X-RAY - LEFT ANKLE REASON FOR [...] 13:27 EST Reading Location ID and State: [facility] / [place] , Service support , CC: XUAN Kwon; ED PHYSICIAN PROVIDER Jacquard Loom Carpet Weaver: Signed Normal [facility] Ankle min 3 Views [facility] Imaging Services [address] [place] [address] Ankle min 3 Views MR#: [id number] Acct: [id number] Name: BETHANY MONTALVO Rep #: [id number] : 1965 M 58 From: Sherwin wells MD PCP: XUAN Armendariz Status: PRE ER Study: Ankle min 3 Views Date of Exam: 07/23/24 Exam# [id number] Ordering Dr: Jordan,Junaid P. [id number] STUDY: X-RAY - RIGHT ANKLE REASON FOR [...] 13:19 EST Reading Location ID and State: [facility] / [place] , Service support , CC: XUAN Kwon; ED PHYSICIAN PROVIDER Jacquard Loom Carpet Weaver: Signed Normal [facility] Emergency Department Summary on 07-23-2024 Emergency Department Summary [facility] Medical Records Department [address] [place] [address] Emergency Department Summary 07/23/24 MR#: [id number] Acct: [id number] Name: BETHANY MONTALVO Rep #: [id number] : 1965 58 From: Nik Campbell DO PCP: XUAN Armendariz Status:DEP ER Location: ED HPI History of Present Illness Chief Complaint: Lower Extremity Injury [facility] Medical History Personal history of colon [...] Suicidal ideation Atherosclerosis of coronary artery of [place] heart without angina pectoris Depression NSTEMI (non-ST [...] apartment current occupational status: employed current occupation: [employer] Smoking Status: Former smoker alcohol intake: current [...] EXAM: Nursing (more content not included)... Normal [facility] Foot min 3 Viewson 5 Foot min 3 Views [facility] Imaging Services [address] [place] [address] Foot min 3 Views MR#: [id number] Acct: [id number] Name: BETHANY MONTALVO Rep #: [id number] : 1965 M 58 From: Sherwin wells MD PCP: XUAN Armendariz Status: PRE ER Study: Foot min 3 Views Date of Exam: 07/23/24 Exam# [id number] Ordering Dr: Junaid Ortega [id number] STUDY: X-RAY - LEFT FOOT CLINICAL: Male, [...] 13:19 EST Reading Location ID and State: [facility] / [place] , Service support , CC: XUAN Kwon; ED PHYSICIAN PROVIDER Jacquard Loom Carpet Weaver: Signed Normal [facility] Foot min 3 Views [facility] Imaging Services [address] [place], [place] [address] Foot min 3 Views MR#: [id number] Acct: [id number] Name: BETHANY MONTALVO Rep #: [id number] : 1965 M 58 From: Sherwin wells MD PCP: XUAN Armendairz Status: PRE ER Study: Foot min 3 Views Date of Exam: 07/23/24 Exam# [id number] Ordering Dr: Jordan,Junaid P. [id number] STUDY: X-RAY - RIGHT FOOT CLINICAL: Male, [...] 13:27 EST Reading Location ID and State: [address] [place] [address] , Service support , CC: XUAN Kwon; ED PHYSICIAN PROVIDER Jacquard Loom Carpet Weaver: Signed Normal [facility] Tibia Fibula 2 Viewson 07-23 Tibia Fibula 2 Views [facility] Imaging Services [address] [place], [place] [address] Tibia Fibula 2 Views MR#: [id number] Acct: [id number] Name: BETHANY MONTALVO Rep #: [id number] : 1965 M 58 From: Sherwin wells MD PCP: XUAN Armendariz Status: PRE ER Study: Tibia Fibula 2 Views Date of Exam: 07/23/24 Exam# [id number] Ordering Dr: Junaid Ortega [id number] STUDY: X-RAY - LEFT TIBIA AND FIBULA [...] 13:22 EST Reading Location ID and State: [address] [place] [address] , Service support , CC: HOSPITALITY AIDE-Ang Kwon; ED PHYSICIAN PROVIDER Jacquard Loom Carpet Weaver: Signed Normal [facility] Tibia Fibula 2 Views [facility] Imaging Services [address] [place] [address] Tibia Fibula 2 Views MR#: [id number] Acct: [id number] Name: BETHANY MONTALVO Rep #: [id number] : 1965 M 58 From: Sherwin wells MD PCP: XUAN Armendariz Status: PRE ER Study: Tibia Fibula 2 Views Date of Exam: 07/23/24 Exam# [id number] Ordering Dr: Provider,Ed P. [id number] STUDY: X-RAY - RIGHT TIBIA AND FIBULA [...] 13:22 EST Reading Location ID and State: [address] [place] [address] , Service support , CC: XUAN Kwon; ED PHYSICIAN PROVIDER Jacquard Loom Carpet Weaver: Signed Normal [facility] Toe(s) Min 2 Viewson 025 Toe(s) Min 2 Views [facility] Imaging Services [address] [place] [address] Toe(s) Min 2 Views MR#: [id number] Acct: [id number] Name: BETHANY MONTALVO Rep #: [id number] : 1965 M 58 From: Sherwin wells MD PCP: XUAN Armendariz Status: PRE ER Study: Toe(s) Min 2 Views Date of Exam: 07/23/24 Exam# [id number] Ordering Dr: Jordan,Ed P. [id number] STUDY: X-RAY RIGHT FOOT, GREAT TOE REASON [...] 13:28 EST Reading Location ID and State: [facility] / [place] , Service support , CC: XUAN Kwon; ED PHYSICIAN PROVIDER Jacquard Loom Carpet Weaver: Signed [facility] 07-13-2024 [facility] BETHANY MONTALVO ([id number]) 1965 M Date Time Provider Department 07/13/24 2:30 PM [facility]A WADE [facility] During your visit today, we recorded [...] seem more viral in origin and recommended bgxo-pah-dpbjzpt cough and cold medication and follow-up with PCP. - XR CHEST 2V FRONTAL/LAT - COVID AND INFLUENZA A/B AND RSV PCR, ROUTINE Rosa Wade APRN.AGRICULTURAL RESEARCH TECHNICIAN Allergies As of Date: 07/13/2024 Noted Allergy Reaction SUDAFED (PSEUDOEPHEDRINE) 06/26/2016 14 - Other: See Comments Comments: Prostate infection Date Reviewed: 07/13/2024 Reviewed by: Rosa Wade APRN.AGRICULTURAL RESEARCH TECHNICIAN - Fully Assessed Reason for Visit: Sore Throat [200] Cmt: ST, bodyaches and nausea x 1 week Primary Visit Diagnosis:Acute cough [R05.1] Order(s):XR CHEST 2V FRONTAL/LAT [3635280] Order #: [id number] FUTURE COVID AND INFLUENZA A/B AND RSV PCR, ROUTINE [facility]] Order #: [id number]. #:[id number] Prescriptions as of 07/13/2024 - atorvastatin (LIPITOR) [...] ROSA WADE on 07/13/24 Normal [facility] COVID AND INFLUENZA A/B AND RSV PCR, ROUTINEon 07-13-2024 SARS-CoV-2 (COVID-19) RNA ABBY+probe Ql (Unsp spec) SARS-COV-2 (AGENT OF COVID-19) RNA: Not detected INFLUENZA A RNA: Not detected INFLUENZA B RNA: Not detected RESPIRATORY SYNCYTIAL VIRUS (RSV) RNA: Not detected Normal [facility] Comment on above: Performed By: #### C VFLRS ####[facility] LABCLIA [id number] [address] [place] XR CHEST 2V [...] tissues: Unremarkable. IMPRESSION: No acute radiographic abnormality. Jacquard Loom Carpet Weaver: PSCB Transcribe Date/Time: Jul 13 2024 2:08P Dictated by : DIPESH STEELE MD This examination was interpreted and the report reviewed and electronically signed by: DIPESH STEELE MD on Jul 13 2024 2:08PM EST [id number] Normal [facility] XR Chest PA and Lateralon IMPRESSION: No acute radiographic abnormality. Jacquard Loom Carpet Weaver: PSCB Transcribe Date/Time: Jul 13 2024 2:08P Dictated by : DIPESH STEELE MD This examination was interpreted and the report reviewed and electronically signed by: DIPESH STEELE MD on Jul 13 2024 2:08PM [facility] DIVISION OF RADIOLOGY * * *Final [...] Unremarkable. IMPRESSION IMPRESSION: No acute radiographic abnormality. Jacquard Loom Carpet Weaver: PSCB Transcribe Date/Time: Jul 13 2024 2:08P Dictated by : DIPESH STEELE MD This examination was interpreted and the report reviewed and electronically signed by: DIPESH STEELE MD on Jul 13 2024 2:08PM [facility] Radiology Study observation (narrative) [facility] XR Chest PA and LateralOrder ed By: Ccf Provider on 07-13-2024 [facility] CNOVon 07-09-2024 CNOV Office Visit ([facility] ) BETHANY MONTALVO ([id number]) 1965 M Date Time Provider Department 07/09/24 5:00 PM DESMOND DUNCAN [facility] During your visit today, we recorded the following information about you: Temperature Pulse Respiration Blood pressure 98.4 degrees 98/minute 18/minute 128/78 Weight 97.2 kg Desmond Duncan, GERARDO.AGRICULTURAL RESEARCH TECHNICIAN 07/09/2024 6:04 PM Signed Subjective HPI Nontoxic-appearing male presents urgent care chief complaint sore throat body aches chills headache cough. Duration of symptoms few days. Associated symptoms listed above. Additionally has had right elbow injury for about 1 week. States he struck his elbow on a rail at work. Presents today for evaluation. Hmdxv-gmkc-rgetunme. Denies any other injuries. OTC medications none [...] Age of Onset Psychiatry Mother Heart Mother [place] 53 Heart Father [place] 51 Colon Cancer Father Social History Tobacco [...] (more content not included)... Normal [facility] 07-09-2024 [facility] Telephone ([facility]) BETHANY MONTALVO ([id number]) 1965 M Date Time Provider Department 07/09/24 DESMOND DUNCAN [facility] During your visit today, we recorded [...] Date Reviewed: 07/09/2024 Reviewed by: Desmond Duncan APRN.AGRICULTURAL RESEARCH TECHNICIAN - Fully Assessed Reason for Visit: Results [...] ARIELA AVELAR on 07/12/24 Normal [facility] STREP A MOLECULAR (POC)on Procedural Control Valid [facility] Strep A (POCT) Negative Negative [facility] XR ELBOW 3V AP/LAT/OTHER RTo n [...] IMPRESSION: No acute osseous abnormalities are identified. Jacquard Loom Carpet Weaver: JOHN Transcribe Date/Time: Jul 09 2024 5:59P Dictated by : MICHELA KESSLER MD This examination was interpreted and the report reviewed and electronically signed by: MICHELA KESSLER MD on Jul 09 2024 6:01PM EST [id number] Normal [facility] XR Elbow - right AP and Late ral and obliqueon 07-09-2024 IMPRESSION: No acute osseous abnormalities are identified. Jacquard Loom Carpet Weaver: [facility] Transcribe Date/Time: Jul 09 2024 5:59P [...] IMPRESSION: No acute osseous abnormalities are identified. Jacquard Loom Carpet Weaver: PSCB Transcribe Date/Time: Jul 09 2024 5:59P Dictated by : MICHELA KESSLER MD This examination was interpreted and the report reviewed and electronically signed by: MICHELA KESSLER MD on Jul 09 2024 6:01PM EST [facility] Radiology Study observation (narrative) [facility] XR Elbow - right AP and Late ral and obliqueOrdered By: Ccf Provider on 07-09-2024 [facility] CNOVon 06-22-2024 CNOV Office Visit (GENSWS ) BETHANY MONTALVO ([id number]) 1965 M Date Time Provider Department 06/22/24 4:00 PM ALMA DELIA GARZA GENSWS During your visit today, we recorded the following information about you: Temperature Pulse Blood pressure Weight 98.9 degrees 107/minute 142/92 98.2 kg Height 1.803 m Alma Delia Garza APRN.CNP 06/22/2024 4:31 PM Signed HISTORY AND PHYSICAL Bethany Montalvo : 1965 REFERRING PHYSICIAN: Keren Kwon [address] [facility] [id number] CHIEF COMPLAINT: Patient presents with: Consult: colonoscopy [...] AND colonoscopy 12/[address] Payton at [facility]. Sedation: MAC EGD Impression: -Normal examined jejunum [...] Heart Mother (more content not included)... [facility] ([facility]) BETHANY MONTALVO ([id number]) 1965 Date Time Provider Department 06/22/24 ALMA DELIA GARZA GENSWS During your visit today, we recorded the following information about you: Alma Delia Garza APRN.AGRICULTURAL RESEARCH TECHNICIAN 06/22/2024 4:30 PM Signed Please fax GI consult to Dr. Lovell at [facility]. Thank you, Alma Delia Garza APRN.Jaret iPnto MA 06/23/2024 4:48 PM Signed Faxed as requested. Jaret Paulino MA Allergies As of Date: 06/22/2024 Noted Allergy Reaction SUDAFED (PSEUDOEPHEDRINE) 06/26/2016 14 - Other: See Comments Comments: Prostate infection Date Reviewed: 06/22/2024 Reviewed by: Alma Delia Garza APRN.AGRICULTURAL RESEARCH TECHNICIAN - Fully Assessed Prescriptions as of 06/23/2024 [...] Encounter Status:Closed by JARET PAULINO on 06/23/24 [facility] CNOVon 06-12-2024 [facility] B[facility]VO ([id number]) 1965 M Date Time Provider Department 06/12/24 2:40 PM [facility] During your visit today, we recorded [...] CAD: Denies any chest pain/SOB. Following with [facility] [employer] [facility]. Last appt in September. GERD: Stable [...] Age of Onset Psychiatry Mother Heart Mother [place] 53 Heart Father [place] 51 Colon Cancer Father Social History Tobacco [...] I25. (more content not included)... Normal [facility]ie Basophil percentageOrdered B y: Casey Brewer on 10-14-2023 Bilirubin [Mass/Vol] 0.70 mg/dL 0.20-1.00 [facility] Comment on above: For patients on eltr ombopag therapy, use of Dimension Coleman TBIL is not recommended. Chloride [Moles/Vol] 102 mmol/L 98-107 [facility] Glucose [Mass/Vol] 97 mg/dL 74-106 [facility] Hemoglobin (Bld) [Mass/Vol] 14.9 g/dL 13.0-16.5 [facility] Potassium [Moles/Vol] 4.8 mmol/L 3.5-5.1 [facility] Protein [Mass/Vol] 7.3 g/dL 6.4-8.2 [facility] Sodium [Moles/Vol] 137 mmol/L 136-145 [facility] WBC (Bld) [#/Vol] 6.0 10*3/uL 4.4-11.0 [facility] Determination of erythrocyte mean corpuscular volume (MCV)Ordered By: Casey Brewer on 10-14-2023 MCV (RBC) [Entitic vol] 95.4 fL 80-94 [facility] Erythrocyte distribution wid th ratioOrdered By: Caseymanan Brewer on 10-14-2023 Erythrocyte distribution width (RBC) [Ratio] 13.0 % 11.6-14.6 [facility] Erythrocyte distribution wid th standard deviationOrdered By: Caseymanan Brewer on 10-14-2023 Erythrocyte distribution width (RBC) [Entitic vol] 45.4 fL 35.1-43.9 [facility] Hematocrit Auto (Bld) [Volum e fraction]Ordered By: Caseymanan Brewer on 10-14-2023 Hematocrit (Bld) [Volume fraction] 43.3 % 40-54 [facility] - Chemistry and C hemistry - challengeOrdered By: Casey Brewer on 10-14-2023 Albumin/Globulin [Mass ratio] 1.1 {ratio} 0.9-2.4 [facility] ALP [Catalytic activity/Vol] 80 U/L 45-117 [facility] ALT [Catalytic activity/Vol] 47 U/L 16-61 [facility] CO2 [Moles/Vol] 32.0 mmol/L 21.0-32.0 [facility] Globulin (S) [Mass/Vol] 3.4 g/dL 2.2-4.2 [facility] Urea nitrogen/Creatinine [Mass ratio] 8.1 mg/mg 10-20 [facility] - Hematology and Cell countsOrdered By: Casey Brewer on 10-14-2023 MCH (RBC) [Entitic mass] 32.8 pg 27.0-32.0 [facility] MCHC (RBC) [Mass/Vol] 34.4 g/dL 32-36 [facility] Platelet mean volume (Bld) [Entitic vol] 9.3 fL 6.2-12.0 [facility] Platelets (Bld) [#/Vol] 145 10*3/uL 150-450 [facility] No Panel InformationOrdered By: Casey Brewer on 10-14-2023 Estimated GFR (MDRD) Amer 63 mL/min >60 [facility] Comment on above: GFR Calc Estimated GFR (MDRD) Non-Af Amer 52 mL/min >60 [facility] Comment on above: Non- GFR Calc RBC Auto (Bld) [#/Vol]Ordere d By: Casey Brewer on 10-14-2023 RBC (Bld) [#/Vol] 4.54 10*6/uL 4.6-6.2 [facility] Serum or plasma calcium raina urement (mass/volume)Ordered By: Casey Brewer on 10-14-2023 Calcium [Mass/Vol] 9.4 mg/dL 8.5-10.1 [facility] Serum or plasma creatinine m easurement (mass/volume)Ordered By: Casey Brewer on 10-14-2023 Creatinine [Mass/Vol] 1.49 mg/dL 0.70-1.30 [facility] Comment on above: The validity of the calculated GFR & GFRAA in patients over 70 years has not been determined. Clinical correlation is essential. Serum or plasma urea nitroge n measurement (mass/volume)Ordered By: Casey Brewer on 10-14-2023 Urea nitrogen [Mass/Vol] 12 mg/dL 7-18 [facility] Thin prep Papanicolaou smear with manual screeningOrdered By: Casey Brewer on 10-14-2023 Thin prep Papanicolaou smear with manual screening 3.9 g/dL 3.2-5.0 [facility] Thin prep Papanicolaou smear with manual screening 55 U/L 15-37 [facility] Thin prep Papanicolaou smear with manual screening 3 5-15 [facility] Basophil percentageOrdered B y: Shakeel Valera on 05-16-2023 Basophil percentage 3.1 mg/dL 2.5-4.9 [facility] Chloride [Moles/Vol] 107 mmol/L 98-107 [facility] Glucose [Mass/Vol] 92 mg/dL 74-106 [facility] Potassium [Moles/Vol] 3.7 mmol/L 3.5-5.1 [facility] Sodium [Moles/Vol] 139 mmol/L 136-145 [facility] Laboratory - Chemistry and C hemistry - challengeOrdered By: Shakeel Valera on 05-16-2023 CO2 [Moles/Vol] 27.0 mmol/L 21.0-32.0 [facility] Magnesium [Mass/Vol] 1.6 mg/dL 1.6-2.6 [facility] Urea nitrogen/Creatinine [Mass ratio] 5.1 mg/mg 10-20 [facility] No Panel InformationOrdered By: Shakeel Valera on 05-16-2023 Estimated Creatinine Clearance Calc 86.90 ml/min [facility] Estimated GFR (MDRD) Amer 101 mL/min >60 [facility] Comment on above: GFR Calc Estimated GFR (MDRD) Non-Af Amer 84 mL/min >60 [facility] Comment on above: Non- GFR Calc Serum or plasma calcium raina urement (mass/volume)Ordered By: Shakeel Valera on 05-16-2023 Calcium [Mass/Vol] 7.8 mg/dL 8.5-10.1 [facility] Serum or plasma creatinine m easurement (mass/volume)Ordered By: Shakeel Valera on 05-16-2023 Creatinine [Mass/Vol] 0.98 mg/dL 0.70-1.30 [facility] Comment on above: The validity of the calculated GFR & GFRAA in patients over 70 years has not been determined. Clinical correlation is essential. Serum or plasma urea nitroge n measurement (mass/volume)Ordered By: Shakeel Valera on 05-16-2023 Urea nitrogen [Mass/Vol] 5 mg/dL 7-18 [facility] Thin prep Papanicolaou smear with manual screeningOrdered By: Shakeel Valera on 05-16-2023 Thin prep Papanicolaou smear with manual screening 5 5-15 [facility] Basophil percentageOrdered B y: Shakeel Valera on 05-15-2023 Bilirubin [Mass/Vol] 1.60 mg/dL 0.20-1.00 [facility] Comment on above: For patients on eltr ombopag therapy, use of Dimension Coleman TBIL is not recommended. Protein [Mass/Vol] 5.5 g/dL 6.4-8.2 [facility] - Chemistry and C hemistry - challengeOrdered By: Shakeel Valera on 05-15-2023 ALP [Catalytic activity/Vol] 118 U/L 45-117 [facility] ALT [Catalytic activity/Vol] 87 U/L 16-61 [facility] Globulin (S) [Mass/Vol] 2.8 g/dL 2.2-4.2 [facility] Serum or plasma albumin raina urement (mass/volume)Ordered By: Shakeel Valera on 05-15-2023 Albumin [Mass/Vol] 2.7 g/dL 3.2-5.0 [facility] Serum or plasma albumin/glob ulin mass ratioOrdered By: Shakeel Valera on 05-15-2023 Albumin/Globulin [Mass ratio] 1.0 {ratio} 0.9-2.4 [facility] Thin prep Papanicolaou smear with manual screeningOrdered By: Shakeel Valera on 05-15-2023 Thin prep Papanicolaou smear with manual screening 85 U/L 15-37 [facility] Absolute lymphocyte countOrd ered By: Lorena Bennett on 05-14-2023 Lymphocytes Auto (Unsp spec) [#/Vol] 1.52 10*3/uL 0.83-4.51 [facility] Basophil percentageOrdered B y: Lorena Bennett on 05-14-2023 Basophils/100 WBC (Bld) 0.4 % 0-1 [facility] Eosinophils/100 WBC (Bld) 1.8 % 0-5 [facility] Neutrophils (Bld) [#/Vol] 2.5 10*3/uL 2.0-7.7 [facility] Neutrophils/100 WBC (Bld) 55.9 % 47-70 [facility] WBC (Bld) [#/Vol] 4.5 10*3/uL 4.4-11.0 [facility] Blood erythrocytes count (nu mber/volume)Ordered By: Lorena Bennett on 05-14-2023 RBC (Bld) [#/Vol] 3.43 10*6/uL 4.6-6.2 [facility] Blood hemoglobin measurement (mass/volume)Ordered By: Lorena Bennett on 05-14-2023 Hemoglobin (Bld) [Mass/Vol] 11.5 g/dL 13.0-16.5 [facility] Blood lymphocytes/100 leukoc ytesOrdered By: Lorena Bennett on 05-14-2023 Lymphocytes/100 WBC (Bld) 34.1 % 19-41 [facility] Blood monocytes/100 leukocyt esOrdered By: Lorena Bennett on 05-14-2023 Monocytes/100 WBC (Bld) 7.6 % 0-10 [facility] Blood platelet adequacy dete ction by light microscopyOrdered By: Lorena Bennett on 05-14-2023 Platelets LM Ql (Bld) MOD DEC ADEQ [facility] Blood platelet mean volumeOr dered By: Lorena Bennett on 05-14-2023 Platelet mean volume (Bld) [Entitic vol] 9.8 fL 6.2-12.0 [facility] Determination of erythrocyte mean corpuscular volume (MCV)Ordered By: Lorena Bennett on 10-24-2023 MCV (RBC) [Entitic vol] 100.9 fL 80-94 [facility] Hematocrit Auto (Bld) [Volum e fraction]Ordered By: Lorena Bennett on 05-14-2023 Hematocrit (Bld) [Volume fraction] 34.6 % 40-54 [facility] - Hematology and Cell countsOrdered By: Lorena Bennett on 05-14-2023 Erythrocyte distribution width (RBC) [Entitic vol] 46.6 fL 35.1-43.9 [facility] Erythrocyte distribution width (RBC) [Ratio] 12.7 % 11.6-14.6 [facility] Immature granulocytes/100 WBC (Bld) 0.200 % 0.0-0.9 [facility] Comment on above: IG% - Immature Granu locytes (promyelocytes, myelocytes and metamyelocytes) > 1% indicates that a LEFT SHIFT is Present. MCH (RBC) [Entitic mass] 33.5 pg 27.0-32.0 [facility] Nucleated RBC/100 WBC (Bld) [Ratio] 0 % 0-5 [facility] MCHC Auto (RBC) [Mass/Vol]Or dered By: Lorena Bennett on 05-14-2023 MCHC (RBC) [Mass/Vol] 33.2 g/dL 32-36 [facility] Platelets bldOrdered By: Angeles Bennett on 05-14-2023 Platelets (Bld) [#/Vol] 75 10*3/uL 150-450 [facility] Absolute lymphocyte countOrd ered By: Jaun Sanz on 05-13-2023 Lymphocytes Auto (Unsp spec) [#/Vol] 1.18 10*3/uL 0.83-4.51 [facility] Basophil percentageOrdered B y: Jaun Sanz on 05-13-2023 Lactate [Moles/Vol] 0.4 mmol/L 0.4-2.0 [facility] Basophil percentage 0-5 SEEN /hpf 0-5 [facility] Basophils/100 WBC (Bld) 0.5 % 0-1 [facility] Bilirubin [Mass/Vol] 4.20 mg/dL 0.20-1.00 [facility] Comment on above: For patients on eltr ombopag therapy, use of Dimension Coleman TBIL is not recommended. Chloride [Moles/Vol] 101 mmol/L 98-107 [facility] Eosinophils/100 WBC (Bld) 0.3 % 0-5 [facility] Glucose [Mass/Vol] 129 mg/dL 74-106 [facility] Comment on above: Fasting Glucose resu lt greater than or equal to 126 mg/dL suggests DIABETES MELLITUS per A.D.A. criteria. Neutrophils (Bld) [#/Vol] 4.7 10*3/uL 2.0-7.7 [facility] Neutrophils/100 WBC (Bld) 72.9 % 47-70 [facility] Potassium [Moles/Vol] 4.2 mmol/L 3.5-5.1 [facility] Comment on above: Moderate Hemolysis, Result may be falsely increased. Protein [Mass/Vol] 8.3 g/dL 6.4-8.2 [facility] Sodium [Moles/Vol] 138 mmol/L 136-145 [facility] WBC (Bld) [#/Vol] 6.4 10*3/uL 4.4-11.0 [facility] Bilirubin Test strip Ql (U)O rdered By: Jaun Sanz on 05-13-2023 Bilirubin Ql (U) 3 mg/dL Negative [facility] Comment on above: COLOR OF URINE MAY A FFECT DIPSTICK RESULTS. Blood erythrocytes count (nu mber/volume)Ordered By: Jaun Sanz on 05-13-2023 RBC (Bld) [#/Vol] 4.93 10*6/uL 4.6-6.2 [facility] Blood hemoglobin measurement (mass/volume)Ordered By: Jaun Sanz on 05-13-2023 Hemoglobin (Bld) [Mass/Vol] 16.1 g/dL 13.0-16.5 [facility] Blood lymphocytes/100 leukoc ytesOrdered By: Jaun Sanz on 05-13-2023 Lymphocytes/100 WBC (Bld) 18.4 % 19-41 [facility] Blood monocytes/100 leukocyt esOrdered By: Jaun Sanz on 05-13-2023 Monocytes/100 WBC (Bld) 7.6 % 0-10 [facility] Blood platelet mean volumeOr dered By: Jaun Sanz on 05-13-2023 Platelet mean volume (Bld) [Entitic vol] 9.9 fL 6.2-12.0 [facility] Determination of erythrocyte mean corpuscular volume (MCV)Ordered By: Jaun Sanz on 05-13-2023 MCV (RBC) [Entitic vol] 97.0 fL 80-94 [facility] Hematocrit Auto (Bld) [Volum e fraction]Ordered By: Jaun Sanz on 05-13-2023 Hematocrit (Bld) [Volume fraction] 47.8 % 40-54 [facility] Hyaline casts LM.LPF (Urine sed) [#/Area]Ordered By: Jaun Sanz on 05-13-2023 Hyaline casts (Urine sed) [#/Area] /[LPF] 0-5 [facility] Ketones Test strip Ql (U)Ord ered By: Jaun Sanz on 05-13-2023 Ketones Ql (U) 15 mg/dl Negative [facility] - Chemistry and C hemistry - challengeOrdered By: Jaun Sanz on 05-13-2023 ALP [Catalytic activity/Vol] 207 U/L 45-117 [facility] ALT [Catalytic activity/Vol] 197 U/L 16-61 [facility] CO2 [Moles/Vol] 23.0 mmol/L 21.0-32.0 [facility] Globulin (S) [Mass/Vol] 4.2 g/dL 2.2-4.2 [facility] Lipase [Catalytic activity/Vol] 56 U/L 13-75 [facility] Comment on above: Please note:LIPASE r evised reference range effective 22. New Lipase methodology. Expected to produce lower values than the previous assay method. NEW Reference Range: 13 - 75 U/L Urea nitrogen/Creatinine [Mass ratio] 5.8 mg/mg 10-20 [facility] - Hematology and Cell countsOrdered By: Jaun Sanz on 05-13-2023 Erythrocyte distribution width (RBC) [Entitic vol] 44.6 fL 35.1-43.9 [facility] Erythrocyte distribution width (RBC) [Ratio] 12.4 % 11.6-14.6 [facility] Immature granulocytes/100 WBC (Bld) 0.300 % 0.0-0.9 [facility] Comment on above: IG% - Immature Granu locytes (promyelocytes, myelocytes and metamyelocytes) > 1% indicates that a LEFT SHIFT is Present. MCH (RBC) [Entitic mass] 32.7 pg 27.0-32.0 [facility] Nucleated RBC/100 WBC (Bld) [Ratio] 0 % 0-5 [facility] MCHC Auto (RBC) [Mass/Vol]Or dered By: Jaun Sanz on 05-13-2023 MCHC (RBC) [Mass/Vol] 33.7 g/dL 32-36 [facility] Mucus LM Ql (Urine sed)Order ed By: Jaun Sanz on 05-13-2023 Mucus Ql (Urine sed) 0 SEEN /hpf [facility] Nitrite Test strip Ql (U)Ord ered By: Jaun Sanz on 05-13-2023 Nitrite Ql (U) Negative Negative [facility] No Panel InformationOrdered By: Jaun Sanz on 05-13-2023 Estimated Creatinine Clearance Calc 45.06 ml/min [facility] Estimated GFR (MDRD) Amer 48 mL/min >60 [facility] Comment on above: GFR Calc Estimated GFR (MDRD) Non-Af Amer 39 mL/min >60 [facility] Comment on above: Non- GFR Calc Ethyl Alcohol Level < 3.0 mg/dL [facility] Comment on above: The serum:whole bloo d ethanol ratio is approximately 1.14and varies slightly with hematocrit. Medical Alcohol reference interval and critical value innon-tolerant individuals; 50 - 100 Impairment 100 Intoxication 100 - 250 Severe Poisoning 250 - 400 Deep/possible fatal coma Platelets bldOrdered By: Mary Alice Sanz on 05-13-2023 Platelets (Bld) [#/Vol] 111 10*3/uL 150-450 [facility] Protein Test strip Ql (U)Ord ered By: Jaun Sanz on 05-13-2023 Protein Ql (U) 100 mg/dl Negative [facility] Serum or plasma albumin raina urement (mass/volume)Ordered By: Jaun Sanz on 05-13-2023 Albumin [Mass/Vol] 4.1 g/dL 3.2-5.0 [facility] Serum or plasma albumin/glob ulin mass ratioOrdered By: Jaun Sanz on 05-13-2023 Albumin/Globulin [Mass ratio] 1.0 {ratio} 0.9-2.4 [facility] Serum or plasma calcium raina urement (mass/volume)Ordered By: Jaun Sanz on 05-13-2023 Calcium [Mass/Vol] 9.2 mg/dL 8.5-10.1 [facility] Serum or plasma creatinine m easurement (mass/volume)Ordered By: Jaun Sanz on 05-13-2023 Creatinine [Mass/Vol] 1.89 mg/dL 0.70-1.30 [facility] Comment on above: The validity of the calculated GFR & GFRAA in patients over 70 years has not been determined. Clinical correlation is essential. Serum or plasma urea nitroge n measurement (mass/volume)Ordered By: Jaun Sanz on 05-13-2023 Urea nitrogen [Mass/Vol] 11 mg/dL 7-18 [facility] Squamous epithelial cells de tection in urine sediment by light microscopyOrdered By: Jaun Sanz on 05-13-2023 Epithelial cells.squamous LM Ql (Urine sed) 0 SEEN /hpf 0-5 [facility] Stool enteric pathogen panel by probe and target amplification methodOrdered By: Lorena Bennett on 05-13-2023 Gastrointestinal pathogens panel ABBY+probe (Stl) [facility] Thin prep Papanicolaou smear with manual screeningOrdered By: Jaun Sanz on 05-13-2023 Thin prep Papanicolaou smear with manual screening 255 U/L 15-37 [facility] Comment on above: Moderate Hemolysis, Result may be falsely increased. Thin prep Papanicolaou smear with manual screening 14 5-15 [facility] Urine blood detectionOrdered By: Jaun Sanz on 05-13-2023 RBC Ql (U) 10 /ul Negative [facility] RBC Ql (U) 0 SEEN /hpf 0-5 [facility] Urine clarityOrdered By: Mary Alice Sanz on 05-13-2023 Clarity (U) Clear Clear [facility] Urine color determinationOrd ered By: Jaun Sanz on 05-13-2023 Color (U) SEE COMMENT BELOW Yellow [facility] Comment on above: Visual Urine Color: ORANGE Urine glucose detectionOrder ed By: Jaun Sanz on 05-13-2023 Glucose Ql (U) Normal mg/dl Normal [facility] Urine leukocyte esterase det ection by dipstickOrdered By: Jaun Sanz on 05-13-2023 Leukocyte esterase Test strip Ql (U) 25 /ul Negative [facility] Urine pHOrdered By: Jaun scott on 05-13-2023 pH (U) 5.0 [pH] 5.0 - 8.0 [facility] Urine sediment bacteria coun t by microscopy (number/high power field)Ordered By: Jaun Sanz on 05-13-2023 Bacteria LM.HPF (Urine sed) [#/Area] 0 /[HPF] None Seen [facility] Urine specific gravity measu rementOrdered By: Jaun Sanz on 05-13-2023 Specific gravity (U) [Rel density] 1.020 1.002-1.03 0 [facility] Urobilinogen Auto test strip Ql (U)Ordered By: Jaun Sanz on 05-13-2023 Urobilinogen Ql (U) 8 mg/dl Normal [facility] Absolute lymphocyte countOrd ered By: Casey Brewer on 04-01-2023 Lymphocytes Auto (Unsp spec) [#/Vol] 1.28 10*3/uL 0.83-4.51 [facility] Basophil percentageOrdered B y: Casey Brewer on 04-01-2023 Basophils/100 WBC (Bld) 0.2 % 0-1 [facility] Bilirubin [Mass/Vol] 1.70 mg/dL 0.20-1.00 [facility] Comment on above: For patients on eltr ombopag therapy, use of Dimension Coleman TBIL is not recommended. Chloride [Moles/Vol] 100 mmol/L 98-107 [facility] Eosinophils/100 WBC (Bld) 0.8 % 0-5 [facility] Glucose [Mass/Vol] 93 mg/dL 74-106 [facility] Neutrophils (Bld) [#/Vol] 4.5 10*3/uL 2.0-7.7 [facility] Neutrophils/100 WBC (Bld) 71.3 % 47-70 [facility] Potassium [Moles/Vol] 3.5 mmol/L 3.5-5.1 [facility] Protein [Mass/Vol] 7.5 g/dL 6.4-8.2 [facility] Sodium [Moles/Vol] 136 mmol/L 136-145 [facility] WBC (Bld) [#/Vol] 6.3 10*3/uL 4.4-11.0 [facility] Blood erythrocytes count (nu mber/volume)Ordered By: Casey Brewer on 04-01-2023 RBC (Bld) [#/Vol] 4.10 10*6/uL 4.6-6.2 [facility] Blood hemoglobin measurement (mass/volume)Ordered By: Casey Brewer on 04-01-2023 Hemoglobin (Bld) [Mass/Vol] 13.3 g/dL 13.0-16.5 [facility] Blood lymphocytes/100 leukoc ytesOrdered By: Caseymanan Brewer on 04-01-2023 Lymphocytes/100 WBC (Bld) 20.3 % 19-41 [facility] Blood monocytes/100 leukocyt esOrdered By: Caseymanan Brewer on 04-01-2023 Monocytes/100 WBC (Bld) 7.1 % 0-10 [facility] Blood platelet mean volumeOr dered By: Casey Brewer on 04-01-2023 Platelet mean volume (Bld) [Entitic vol] 9.5 fL 6.2-12.0 [facility] Determination of erythrocyte mean corpuscular volume (MCV)Ordered By: Casey Brewer on 04-01-2023 MCV (RBC) [Entitic vol] 98.8 fL 80-94 [facility] Hematocrit Auto (Bld) [Volum e fraction]Ordered By: Caseymanan Brewer on 04-01-2023 Hematocrit (Bld) [Volume fraction] 40.5 % 40-54 [facility] - Chemistry and C hemistry - challengeOrdered By: Casey Brewer on 04-01-2023 ALP [Catalytic activity/Vol] 146 U/L 45-117 [facility] ALT [Catalytic activity/Vol] 54 U/L 16-61 [facility] CO2 [Moles/Vol] 27.0 mmol/L 21.0-32.0 [facility] Globulin (S) [Mass/Vol] 3.7 g/dL 2.2-4.2 [facility] Urea nitrogen/Creatinine [Mass ratio] 8.3 mg/mg 10-20 [facility] - Hematology and Cell countsOrdered By: Casey Berwer on 04-01-2023 Erythrocyte distribution width (RBC) [Entitic vol] 46.5 fL 35.1-43.9 [facility] Erythrocyte distribution width (RBC) [Ratio] 12.8 % 11.6-14.6 [facility] Immature granulocytes/100 WBC (Bld) 0.300 % 0.0-0.9 [facility] Comment on above: IG% - Immature Granu locytes (promyelocytes, myelocytes and metamyelocytes) > 1% indicates that a LEFT SHIFT is Present. MCH (RBC) [Entitic mass] 32.4 pg 27.0-32.0 [facility] Nucleated RBC/100 WBC (Bld) [Ratio] 0 % 0-5 [facility] MCHC Auto (RBC) [Mass/Vol]Or dered By: Casey Brewer on 04-01-2023 MCHC (RBC) [Mass/Vol] 32.8 g/dL 32-36 [facility] No Panel InformationOrdered By: Casey Brewer on 04-01-2023 Estimated GFR (MDRD) Amer 72 mL/min >60 [facility] Comment on above: GFR Calc Estimated GFR (MDRD) Non-Af Amer 60 mL/min >60 [facility] Comment on above: Non- GFR Calc Thyroid Stimulating Hormone (TSH) 1.08 uIU/mL 0.358-3.74 [facility] Platelets bldOrdered By: Valdemar Brewer on 04-01-2023 Platelets (Bld) [#/Vol] 118 10*3/uL 150-450 [facility] Serum or plasma albumin raina urement (mass/volume)Ordered By: Casey Brewer on 04-01-2023 Albumin [Mass/Vol] 3.8 g/dL 3.2-5.0 [facility] Serum or plasma albumin/glob ulin mass ratioOrdered By: Casey Brewer on 04-01-2023 Albumin/Globulin [Mass ratio] 1.0 {ratio} 0.9-2.4 [facility] Serum or plasma calcium raina urement (mass/volume)Ordered By: Casey Brewer on 04-01-2023 Calcium [Mass/Vol] 9.1 mg/dL 8.5-10.1 [facility] Serum or plasma creatinine m easurement (mass/volume)Ordered By: Casey Brewer on 04-01-2023 Creatinine [Mass/Vol] 1.32 mg/dL 0.70-1.30 [facility] Comment on above: The validity of the calculated GFR & GFRAA in patients over 70 years has not been determined. Clinical correlation is essential. Serum or plasma urea nitroge n measurement (mass/volume)Ordered By: Casey Brewer on 04-01-2023 Urea nitrogen [Mass/Vol] 11 mg/dL 7-18 [facility] Thin prep Papanicolaou smear with manual screeningOrdered By: Casey Brewer on 04-01-2023 Thin prep Papanicolaou smear with manual screening 52 U/L 15-37 [facility] Thin prep Papanicolaou smear with manual screening 9 5-15 [facility] CBC W Auto Differential pane l (Bld)on 01-22-2023 Basophils (Bld) [#/Vol] 0.03 10*3/uL <0.11 k/uL [facility] Basophils/100 WBC (Bld) 0.4 % [facility] Differential cell count method Nom (Bld) Auto [facility] Eosinophils (Bld) [#/Vol] 0.07 10*3/uL <0.46 k/uL [facility] Eosinophils/100 WBC (Bld) 1.0 % [facility] Erythrocyte distribution width (RBC) [Ratio] 13.2 % 11.5 - 15.0 % [facility] Hematocrit (Bld) [Volume fraction] 38.6 % Low 39.0 - 51.0 % [facility] Hemoglobin (Bld) [Mass/Vol] 13.0 g/dL 13.0 - 17.0 g/dL [facility] Immature granulocytes (Bld) [#/Vol] <0.10 k/uL [facility] Immature granulocytes/100 WBC (Bld) 0.3 % [facility] Lymphocytes (Bld) [#/Vol] 1.33 10*3/uL 1.00 - 4.00 k/uL [facility] Lymphocytes/100 WBC (Bld) 19.3 % [facility] MCH (RBC) [Entitic mass] 32.3 pg 26.0 - 34.0 pg [facility] MCHC (RBC) [Mass/Vol] 33.7 g/dL 30.5 - 36.0 g/dL [facility] MCV (RBC) [Entitic vol] 95.8 fL 80.0 - 100.0 fL [facility] Monocytes (Bld) [#/Vol] 0.63 10*3/uL <0.87 k/uL [facility] Monocytes/100 WBC (Bld) 9.2 % [facility] Neutrophils (Bld) [#/Vol] 4.80 10*3/uL 1.45 - 7.50 k/uL [facility] Neutrophils/100 WBC (Bld) 69.8 % [facility] Nucleated RBC (Bld) [#/Vol] <0.01 k/uL [facility] Nucleated RBC/100 WBC (Bld) [Ratio] 0.0 /100 WBC [facility] Platelet mean volume (Bld) [Entitic vol] 10.1 fL 9.0 - 12.7 fL [facility] Platelets (Bld) [#/Vol] 146 10*3/uL Low 150 - 400 k/uL [facility] RBC (Bld) [#/Vol] 4.03 10*6/uL Low 4.20 - 6.00 m/uL [facility] WBC (Bld) [#/Vol] 6.88 10*3/uL 3.70 - 11.00 k/uL [facility] Hepatic function 2000 panelo n 01-22-2023 Albumin [Mass/Vol] 4.4 g/dL 3.9 - 4.9 g/dL [facility] ALP [Catalytic activity/Vol] 136 U/L High 38 - 113 U/L [facility] ALT [Catalytic activity/Vol] 112 U/L High 10 - 54 U/L [facility] AST [Catalytic activity/Vol] 169 U/L High 14 - 40 U/L [facility] Bilirubin [Mass/Vol] 0.6 mg/dL 0.2 - 1 .3 mg/dL [facility] Bilirubin.conjugated [Mass/Vol] 0.2 mg/dL High <0.2 mg/dL [facility] Protein [Mass/Vol] 6.6 g/dL 6.3 - 8.0 g/dL [facility] MAGNESIUM BLDon 01-22-2023 Magnesium [Mass/Vol] 1.5 mg/dL Low 1.7 - 2 .3 mg/dL [facility] Absolute lymphocyte countOrd ered By: Abdoulaye Wesley on 01-02-2023 Lymphocytes Auto (Unsp spec) [#/Vol] 0.96 10*3/uL 0.83-4.51 [facility] Basophil percentageOrdered B y: Abdoulaye Wesley on 01-02-2023 Basophils/100 WBC (Bld) 0.7 % 0-1 [facility] Chloride [Moles/Vol] 100 mmol/L 98-107 [facility] Eosinophils/100 WBC (Bld) 0.9 % 0-5 [facility] Glucose [Mass/Vol] 110 mg/dL 74-106 [facility] Comment on above: Fasting Glucose resu lt from 100 to 125 mg/dL suggests IMPAIRED HOMEOSTASIS per A.D.A. criteria. Neutrophils (Bld) [#/Vol] 2.9 10*3/uL 2.0-7.7 [facility] Neutrophils/100 WBC (Bld) 68.4 % 47-70 [facility] Potassium [Moles/Vol] 4.6 mmol/L 3.5-5.1 [facility] Comment on above: Moderate Hemolysis, Result may be falsely increased. Sodium [Moles/Vol] 136 mmol/L 136-145 [facility] WBC (Bld) [#/Vol] 4.2 10*3/uL 4.4-11.0 [facility] Blood erythrocytes count (nu mber/volume)Ordered By: Abdoulaye Wesley on 01-02-2023 RBC (Bld) [#/Vol] 4.85 10*6/uL 4.6-6.2 [facility] Blood hemoglobin measurement (mass/volume)Ordered By: Abdoulaye Wesley on 01-02-2023 Hemoglobin (Bld) [Mass/Vol] 15.7 g/dL 13.0-16.5 [facility] Blood lymphocytes/100 leukoc ytesOrdered By: Abdoulaye Wesley on 01-02-2023 Lymphocytes/100 WBC (Bld) 22.7 % 19-41 [facility] Blood monocytes/100 leukocyt esOrdered By: Abdoulaye Wesley on 01-02-2023 Monocytes/100 WBC (Bld) 7.3 % 0-10 [facility] Blood platelet mean volumeOr dered By: Abdoulaye Wesley on 01-02-2023 Platelet mean volume (Bld) [Entitic vol] 9.3 fL 6.2-12.0 [facility] Determination of erythrocyte mean corpuscular volume (MCV)Ordered By: Abdoulaye Wesley on 01-02-2023 MCV (RBC) [Entitic vol] 93.6 fL 80-94 [facility] Hematocrit Auto (Bld) [Volum e fraction]Ordered By: Abdoulaye Wesley on 01-02-2023 Hematocrit (Bld) [Volume fraction] 45.4 % 40-54 [facility] Laboratory - Chemistry and C hemistry - challengeOrdered By: Abdoulaye Wesley on 01-02-2023 CO2 [Moles/Vol] 28.0 mmol/L 21.0-32.0 [facility] Urea nitrogen/Creatinine [Mass ratio] 7.8 mg/mg 10-20 [facility] - Hematology and Cell countsOrdered By: Abdoulaye Wesley on 01-02-2023 Erythrocyte distribution width (RBC) [Entitic vol] 42.9 fL 35.1-43.9 [facility] Erythrocyte distribution width (RBC) [Ratio] 12.5 % 11.6-14.6 [facility] Immature granulocytes/100 WBC (Bld) 0.000 % 0.0-0.9 [facility] Comment on above: IG% - Immature Granu locytes (promyelocytes, myelocytes and metamyelocytes) > 1% indicates that a LEFT SHIFT is Present. MCH (RBC) [Entitic mass] 32.4 pg 27.0-32.0 [facility] Nucleated RBC/100 WBC (Bld) [Ratio] 0 % 0-5 [facility] MCHC Auto (RBC) [Mass/Vol]Or dered By: Abdoulaye Wesley on 01-02-2023 MCHC (RBC) [Mass/Vol] 34.6 g/dL 32-36 [facility] No Panel InformationOrdered By: Abdoulaye Wesley on 01-02-2023 Estimated Creatinine Clearance Calc 60.40 ml/min [facility] Estimated GFR (MDRD) Amer 67 mL/min >60 [facility] Comment on above: GFR Calc Estimated GFR (MDRD) Non-Af Amer 55 mL/min >60 [facility] Comment on above: Non- GFR Calc Troponin I High Sensitivity 9 pg/mL 3.0-78.0 [facility] Comment on above: Please Note: New Michelle t Units and Gender Specific Reference Ranges. For more information see Policy Stat Procedure Coleman High Sensitivity Troponin (TNIH) and attachments. Platelets bldOrdered By: Jack Wesley on 01-02-2023 Platelets (Bld) [#/Vol] 117 10*3/uL 150-450 [facility] Serum or plasma calcium raina urement (mass/volume)Ordered By: Abdoulaye Wesley on 01-02-2023 Calcium [Mass/Vol] 8.9 mg/dL 8.5-10.1 [facility] Serum or plasma creatinine m easurement (mass/volume)Ordered By: Abdoulaye Wesley on 01-02-2023 Creatinine [Mass/Vol] 1.41 mg/dL 0.70-1.30 [facility] Comment on above: The validity of the calculated GFR & GFRAA in patients over 70 years has not been determined. Clinical correlation is essential. Serum or plasma urea nitroge n measurement (mass/volume)Ordered By: Abdoulaye Wesley on 01-02-2023 Urea nitrogen [Mass/Vol] 11 mg/dL 7-18 [facility] Thin prep Papanicolaou smear with manual screeningOrdered By: Abdoulaye Wesley on 01-02-2023 Thin prep Papanicolaou smear with manual screening 8 - [facility] CBC W Auto Differential pane l (Bld)on 11-05-2022 Basophils (Bld) [#/Vol] <0.11 k/uL [facility] Basophils/100 WBC (Bld) 0.3 % [facility] Differential cell count method Nom (Bld) Auto [facility] Eosinophils (Bld) [#/Vol] 0.11 10*3/uL <0.46 k/uL [facility] Eosinophils/100 WBC (Bld) 1.7 % [facility] Erythrocyte distribution width (RBC) [Ratio] 12.1 % 11.5 - 15.0 % [facility] Hematocrit (Bld) [Volume fraction] 39.4 % 39.0 - 51.0 % [facility] Hemoglobin (Bld) [Mass/Vol] 14.4 g/dL 13.0 - 17.0 g/dL [facility] Immature granulocytes (Bld) [#/Vol] <0.10 k/uL [facility] Immature granulocytes/100 WBC (Bld) 0.2 % [facility] Lymphocytes (Bld) [#/Vol] 1.50 10*3/uL 1.00 - 4.00 k/uL [facility] Lymphocytes/100 WBC (Bld) 23.0 % [facility] MCH (RBC) [Entitic mass] 33.3 pg 26.0 - 34.0 pg [facility] MCHC (RBC) [Mass/Vol] 36.5 g/dL High 30.5 - 36.0 g/dL [facility] MCV (RBC) [Entitic vol] 91.2 fL 80.0 - 100.0 fL [facility] Monocytes (Bld) [#/Vol] 0.53 10*3/uL <0.87 k/uL [facility] Monocytes/100 WBC (Bld) 8.1 % [facility] Neutrophils (Bld) [#/Vol] 4.35 10*3/uL 1.45 - 7.50 k/uL [facility] Neutrophils/100 WBC (Bld) 66.7 % [facility] Nucleated RBC (Bld) [#/Vol] <0.01 k/uL [facility] Nucleated RBC/100 WBC (Bld) [Ratio] 0.0 /100 WBC [facility] Platelet mean volume (Bld) [Entitic vol] 10.0 fL 9.0 - 12.7 fL [facility] Platelets (Bld) [#/Vol] 141 10*3/uL Low 150 - 400 k/uL [facility] RBC (Bld) [#/Vol] 4.32 10*6/uL 4.20 - 6.00 m/uL [facility] WBC (Bld) [#/Vol] 6.52 10*3/uL 3.70 - 11.00 k/uL [facility] HEP C AB IA W/CONF SCRNon HCV Ab Ql (S) Negative Negative [facility] XR FOOT GENERAL 3V AP/LAT/OB L RIGHTon 06-25-2022 [facility] XR Foot - right AP and Later al and obliqueon 06-25-2022 IMPRESSION: No radiographic evidence of acute osseous injury [employer] Weaver: [facility] Transcribe Date/Time: Jun 25 2022 6:19P [...] No radiographic evidence of acute osseous injury [employer] [facility] Trans[facility] Date/Time: Jun 25 2022 6:19P Dictated by : OMID RENEE MD This examination was interpreted and the report reviewed and electronically signed by: OMID RENEE MD on Jun 25 2022 6:20PM EST [facility] Radiology Study observation (narrative) [facility] XR Foot - right AP and Later al and obliqueOrdered By: Ccf Provider on 06-25-2022 [facility] XR CHEST 2V FRONTAL/LATon [facility] XR Chest PA and Lateralon IMPRESSION: Within normal limits. No acute radiographic abnormality. [employer]: JOHN Transcribe Date/Time: Feb 19 2022 3:43P [...] Within normal limits. No acute radiographic abnormality. [employer]: JOHN Transcribe Date/Time: Feb 19 2022 3:43P Dictated by : EITAN SCHWARTZ MD This examination was interpreted and the report reviewed and electronically signed by: EITAN SCHWARTZ MD on Feb 19 2022 3:44PM EST [facility] Radiology Study observation (narrative) [facility] XR Chest PA and LateralOrder ed By: Ccf Provider on 02-19-2022 [facility] Absolute lymphocyte counton 11-08-2021 Lymphocytes Auto (Unsp spec) [#/Vol] 2.13 10*3/uL 0.83-4.51 [facility] Work Phone: Basophil percentageon 2021 Basophil percentage 0 SEEN /hpf [facility] Work Phone: Basophils/100 WBC (Bld) 0.4 % 0-1 [facility] Work Phone: Chloride [Moles/Vol] 103 mmol/L 98-107 [facility] Work Phone: Eosinophils/100 WBC (Bld) 1.5 % 0-5 [facility] Work Phone: Glucose [Mass/Vol] 98 mg/dL 74-106 [facility] Work Phone: Neutrophils (Bld) [#/Vol] 5.2 10*3/uL 2.0-7.7 [facility] Work Phone: Neutrophils/100 WBC (Bld) 64.3 % 47-70 [facility] Work Phone: Potassium [Moles/Vol] 5.1 mmol/L 3.5-5.1 [facility] Work Phone: Comment on above: Slight Hemolysis, Re sult may be falsely increased. Sodium [Moles/Vol] 135 mmol/L 136-145 [facility] Work Phone: WBC (Bld) [#/Vol] 8.1 10*3/uL 4.4-11.0 [facility] Work Phone: Bilirubin Test strip Ql (U)o n 11-08-2021 Bilirubin Ql (U) Negative Negative [facility] Work Phone: Blood erythrocytes count (nu mber/volume)on 11-08-2021 RBC (Bld) [#/Vol] 4.39 10*6/uL 4.6-6.2 [facility] Work Phone: [phone] Blood hemoglobin measurement (mass/volume)on 11-08-2021 Hemoglobin (Bld) [Mass/Vol] 14.8 g/dL 13.0-16.5 [facility] Work Phone: Blood lymphocytes/100 leukoc yteson 11-08-2021 Lymphocytes/100 WBC (Bld) 26.5 % 19-41 [facility] Work Phone: Blood monocytes/100 leukocyt eson 11-08-2021 Monocytes/100 WBC (Bld) 7.2 % 0-10 [facility] Work Phone: [phone] Blood platelet mean volumeon 11-08-2021 Platelet mean volume (Bld) [Entitic vol] 9.4 fL 6.2-12.0 [facility] Work Phone: Determination of erythrocyte mean corpuscular volume (MCV)on 11-08-2021 MCV (RBC) [Entitic vol] 95.2 fL 80-94 [facility] Work Phone: [phone] Hematocrit Auto (Bld) [Volum e fraction]on 11-08-2021 Hematocrit (Bld) [Volume fraction] 41.8 % 40-54 [facility] Work Phone: [phone] Ketones Test strip Ql (U)on 11-08-2021 Ketones Ql (U) Negative Negative [facility] Work Phone: Laboratory - Chemistry and C hemistry - challengeon 11-08-2021 CO2 [Moles/Vol] 26.0 mmol/L 21.0-32.0 [facility] Work Phone: [phone] Urea nitrogen/Creatinine [Mass ratio] 9.0 mg/mg 10-20 [facility] Work Phone: [phone] Laboratory - Hematology and Cell countson 11-08-2021 Erythrocyte distribution width (RBC) [Entitic vol] 41.9 fL 35.1-43.9 [facility] Work Phone: Erythrocyte distribution width (RBC) [Ratio] 12.0 % 11.6-14.6 [facility] Work Phone: Immature granulocytes/100 WBC (Bld) 0.100 % 0.0-0.9 [facility] Work Phone: Comment on above: IG% - Immature Granu locytes (promyelocytes, myelocytes and metamyelocytes) > 1% indicates that a LEFT SHIFT is Present. MCH (RBC) [Entitic mass] 33.7 pg 27.0-32.0 [facility] Work Phone: Nucleated RBC/100 WBC (Bld) [Ratio] 0 % 0-5 [facility] Work Phone: MCHC Auto (RBC) [Mass/Vol]on 11-08-2021 MCHC (RBC) [Mass/Vol] 35.4 g/dL 32-36 [facility] Work Phone: Mucus LM Ql (Urine sed)on Mucus Ql (Urine sed) 0 SEEN /hpf [facility] Work Phone: Nitrite Test strip Ql (U)on 11-08-2021 Nitrite Ql (U) Negative Negative [facility] Work Phone: No Panel Informationon 11-08 Estimated Creatinine Clearance Calc 55.89 ml/min [facility] Work Phone: Estimated GFR (MDRD) Amer 60 mL/min >60 [facility] Work Phone: Comment on above: GFR Calc Estimated GFR (MDRD) Non-Af Amer 49 mL/min >60 [facility] Work Phone: Comment on above: Non- GFR Calc Platelets bldon 11-08-2021 Platelets (Bld) [#/Vol] 142 10*3/uL 150-450 [facility] Work Phone: Protein Test strip Ql (U)on 11-08-2021 Protein Ql (U) Negative Negative [facility] Work Phone: Serum or plasma calcium raina urement (mass/volume)on 11-08-2021 Calcium [Mass/Vol] 8.5 mg/dL 8.5-10.1 [facility] Work Phone: Serum or plasma creatinine m easurement (mass/volume)on 11-08-2021 Creatinine [Mass/Vol] 1.56 mg/dL 0.70-1.30 [facility] Work Phone: Comment on above: The validity of the calculated GFR & GFRAA in patients over 70 years has not been determined. Clinical correlation is essential. Serum or plasma urea nitroge n measurement (mass/volume)on 11-08-2021 Urea nitrogen [Mass/Vol] 14 mg/dL 7-18 [facility] Work Phone: Squamous epithelial cells de tection in urine sediment by light microscopyon 11-08-2021 Epithelial cells.squamous LM Ql (Urine sed) 0 SEEN /hpf [facility] Work Phone: Thin prep Papanicolaou smear with manual screeningon 11-08-2021 Thin prep Papanicolaou smear with manual screening 6 5-15 [facility] Work Phone: Urine blood detectionon 10-21 RBC Ql (U) Negative Negative [facility] Work Phone: RBC Ql (U) 0 SEEN /hpf [facility] Work Phone: Urine clarityon 11-08-2021 Clarity (U) Clear Clear [facility] Work Phone: Urine color determinationon 11-08-2021 Color (U) Yellow Yellow [facility] Work Phone: Urine glucose detectionon Glucose Ql (U) Normal mg/dl Normal [facility] Work Phone: Urine leukocyte esterase det ection by dipstickon 11-08-2021 Leukocyte esterase Test strip Ql (U) Negative Negative [facility] Work Phone: Urine pHon 11-08-2021 pH (U) 5.0 [pH] [facility] Work Phone: Urine sediment bacteria coun t by microscopy (number/high power field)on 11-08-2021 Bacteria LM.HPF (Urine sed) [#/Area] 0 /[HPF] None Seen [facility] Work Phone: Urine specific gravity measu rementon 11-08-2021 Specific gravity (U) [Rel density] 1.005 [facility] Work Phone: Urobilinogen Auto test strip Ql (U)on 11-08-2021 Urobilinogen Ql (U) Normal mg/dl Normal [facility] Work Phone: CNCOon 09-26-2017 Erythrocyte distribution width Auto Ratio (RBC) Letter TextBethany MontalvoAshtabula County Medical Center [address] [address] [place], [place] [address]Emhvd: [phone]# [id number] Rolando Cebolrj4578 [facility] [address]Tfij Mr. Montalvo:We have been unsuccessful in reaching you by phone. Please call our office [phone] for further instructions. We have been trying to reach youregarding testing results and medication changes. Thank you.Sincerely,Cardiology Staff [facility] HOSP 09-18-2017 [facility] Medical Advic e (AGCARDWST) ----BETHANY MONTALVO ([id number]) 1965 MDate Time Provider Department09/18/17 CANDELARIO ARELLANO During your visit today, we recorded the following information about you:Candelario Arellano MD 09/19/2017 9:05 AM SignedDoes he have heart rates?Lon Cancino, YONI, RN 09/19/2017 9:06 AM SignedSent via [employer].Tarun Cuello RN, RN 09/20/2017 11:05 AM SignedLeft [...] Status:Closed by TARUN CUELLO on 09/20/17 [facility] CNOVon 09-10-2017 CNOV Office Visit (AGCARDWST) ----BETHANY MONTALVO ([id number]) 1965 MDate Time Provider Department09/10/17 3:30 PM [...] - N/ABeta mandy for ASHD with prior OK or prior LVEFANDlt;40 (NQF 0070) - N/ABeta [...] with treatment plan.This note was generated using [employer] voice recognition system, and there may besome [...] edema. Pulses are intact and symmetrical.Records from [facility] were reviewed. Stress test showed no evidence ofischemia. Ejection fraction was normal.Echocardiogram showed normal ejection fraction. There was no evidence of acutecoronary syndrome.Electronically Signed:Candelario Arellano MDBanner [facility] Centeruary 2017 3:53 PMCC: Marjorie aCin MD 09/10/2017 3:55 PM SignedLIFESTYLE CHANGEA healthy [...] programs in your area.Referring Provider: CANDELARIO ARELLANO [[id number]]Allergies As of Date: 09/10/2017 Noted Allergy ReactionSUDAFED (PSEUDOEPHEDRINE) 06/26/2016 14 - Other: See Comments Comments: Prostate infectionDate Reviewed: 09/10/2017Reviewed by: India Bhatti - Fully AssessedReason for Visit: Follow Up [171]Primary Visit Diagnosis:Essential hypertension [I10] Other Visit Diagnoses:Chest pain, unspecified type [R07.9] Hypertension, essential [I10]Order(s):LIPID PANEL BASIC [SQLIPB] Order #: [id number] FUTURE ALT/SGPT [SQALT] Order #: [id number] FUTURE CK CREATINE KINASE [SQCK] Order #: [id number] FUTURE BASIC METABOLIC PNL [SQBMP] Order #: [id number] FUTUREPrescriptions as of 09/10/2017 Sig: OMEPRAZOLE 20 [...] the following areas and commit to making snf changes. EAT A WHOLE FOOD, PLANT BASED [...] Status:Closed by CANDELARIO ARELLANO MD on 09/10/17 [facility] PROGRESSon 09-10-2017 PROGRESS HNO ID: [id number] thor: Candelario Garcia: (none)Author Type: PhysicianType: Progress NotesFiled: 09/10/2017 4:16 PMNote Text:PERTINENT CARDIAC HISTORYChest pain - atypicalSyncope - vasodepressorHTNHLADHERENCE TO GUIDELINESACE-I or ARB for HF with prior LVEF<40 (NQF 0081) - N/AASA or Plavix for ASHD (NQF 0067) - N/ABeta mandy for ASHD with prior OK or prior LVEF<40 (NQF 0070) - N/ABeta [...] with treatment plan.This note was generated using [employer] voice recognition system, and theremay be some [...] Trace edema. Pulses are intact andsymmetrical.Records from [facility] were reviewed. Stress test showed noevidence of ischemia. Ejection fraction was normal.Echocardiogram showed normal ejection fraction. There was no evidence ofacute coronary syndrome.Electronically Signed:Candelario Arellano MDFebruary 2017 3:53 PMCC: Redd Tejeda MD [facility] Vital Signs Date Time Vital Sign Value Performing Clinician Facility 02-09-2025 14:12-0400 Body mass index (BMI) [Ratio] 30.46 kg/m2 Gary VALLECILLO Work Phone: [facility] 02-09-2025 14:12040 Body temperature 98.6 [degF] Gary Sandersongg PA Work Phone: [facility] 02-09-2025 14:12040 Body weight 96.3 kg Gary Hutton PA Work Phone: [facility] 02-09-2025 14:12040 Diastolic blood pressure 78 mm[Hg] Gary Absjgg PA Work Phone: [facility] 02-09-2025 14:120400 Heart rate 77 /min Krislyn Aberegg PA Work Phone: [facility] 02-09-2025 14:12-0400 Respiratory rate 16 /min Krislyn Aberegg PA Work Phone: [facility] 02-09-2025 14:12-0400 SaO2% (BldA) [Mass fraction] 98 % Krislyn Aberegg PA Work Phone: [facility] 02-09-2025 14:12-0400 Systolic blood pressure 122 mm[Hg] Krislyn Aberegg PA Work Phone: [facility] 09-28-2024 15:34-0400 Body mass index (BMI) [Ratio] 29.13 kg/m2 Keren Kwon [employer].AGRICULTURAL RESEARCH TECHNICIAN Work Phone: [facility] 09-28-2024 15:34-0400 Body weight 92.08 kg Keren Kwon [employer].AGRICULTURAL RESEARCH TECHNICIAN Work Phone: [facility] 09-28-2024 15:34-0400 Diastolic blood pressure 80 mm[Hg] Keren Kwon [employer].AGRICULTURAL RESEARCH TECHNICIAN Work Phone: [facility] 09-28-2024 15:34-0400 Heart rate 113 /min Keren Kwon [employer].AGRICULTURAL RESEARCH TECHNICIAN Work Phone: [facility] 09-28-2024 15:34-0400 Respiratory rate 16 /min Keren Kwno [employer].AGRICULTURAL RESEARCH TECHNICIAN Work Phone: [facility] 09-28-2024 15:34-0400 SaO2% (BldA) [Mass fraction] 96 % Keren Kwon [employer].AGRICULTURAL RESEARCH TECHNICIAN Work Phone: [facility] 09-28-2024 15:34-0400 Systolic blood pressure 122 mm[Hg] Keren Haagen [employer].AGRICULTURAL RESEARCH TECHNICIAN Work Phone: [facility] 09-28-2024 12:32-0400 Body height 177.8 cm Chris Devlin [employer].AGRICULTURAL RESEARCH TECHNICIAN, DNP Work Phone: [facility] 09-28-2024 12:32-0400 Body mass index (BMI) [Ratio] 28.84 kg/m2 Chris Devlin APRN.AGRICULTURAL RESEARCH TECHNICIAN, DNP Work Phone: [facility] 09-28-2024 12:32-0400 Body temperature 96.91 [degF] Chris Devlin APRN.AGRICULTURAL RESEARCH TECHNICIAN, DNP Work Phone: [facility] 09-28-2024 12:32-0400 Body weight 91.17 kg Chris Devlin APRN.AGRICULTURAL RESEARCH TECHNICIAN, DNP Work Phone: [facility] 09-28-2024 12:32-0400 Diastolic blood pressure 80 mm[Hg] Chris Devlin APRN.AGRICULTURAL RESEARCH TECHNICIAN, DNP Work Phone: [facility] 09-28-2024 12:32-0400 Heart rate 80 /min Chris Devlin APRN.AGRICULTURAL RESEARCH TECHNICIAN, DNP Work Phone: [facility] 09-28-2024 12:32-0400 Respiratory rate 18 /min Chris Devlin APRN.AGRICULTURAL RESEARCH TECHNICIAN, DNP Work Phone: [facility] 09-28-2024 12:32-0400 SaO2% (BldA) [Mass fraction] 94 % Chris Devlin APRN.AGRICULTURAL RESEARCH TECHNICIAN, DNP Work Phone: [facility] 09-28-2024 12:32-0400 Systolic blood pressure 118 mm[Hg] Chris Devlin APRN.AGRICULTURAL RESEARCH TECHNICIAN, DNP Work Phone: [facility] 08-31-2024 15:33-0500 Diastolic blood pressure 97 mm[Hg] Keren Kwon APRN.AGRICULTURAL RESEARCH TECHNICIAN Work Phone: [facility] 08-31-2024 15:33-0500 Heart rate 114 /min Keren Menchacaagen [employer].AGRICULTURAL RESEARCH TECHNICIAN Work Phone: [facility] 08-31-2024 15:33-0500 Systolic blood pressure 153 mm[Hg] Keren Haagen [employer].AGRICULTURAL RESEARCH TECHNICIAN Work Phone: [facility] 08-31-2024 15:25-0500 Respiratory rate 16 /min Keren Kwon APRN.AGRICULTURAL RESEARCH TECHNICIAN Work Phone: [facility] 08-31-2024 15:25-0500 SaO2% (BldA) [Mass fraction] 98 % Keren Haagen [employer].AGRICULTURAL RESEARCH TECHNICIAN Work Phone: [facility] 08-24-2024 12:07-0500 Diastolic blood pressure 117 mm[Hg] Keren Haagen [employer].AGRICULTURAL RESEARCH TECHNICIAN Work Phone: [facility] Comment on above: CHARLENE BP 08-24-2024 12:07-0500 Heart rate 132 /min Keren Haagen [employer].AGRICULTURAL RESEARCH TECHNICIAN Work Phone: [facility] 08-24-2024 12:07-0500 Systolic blood pressure 179 mm[Hg] Keren Haagen [employer].AGRICULTURAL RESEARCH TECHNICIAN Work Phone: [facility] Comment on above: CHARLENE BP 08-24-2024 11:27-0500 Respiratory rate 16 /min Keren Haagen [employer].AGRICULTURAL RESEARCH TECHNICIAN Work Phone: [facility] 08-24-2024 11:27-0500 SaO2% (BldA) [Mass fraction] 97 % Keren Haagen [employer].AGRICULTURAL RESEARCH TECHNICIAN Work Phone: [facility] 08-11-2024 14:03-0500 Body temperature 99.9 [degF] Keren Haagen [employer].AGRICULTURAL RESEARCH TECHNICIAN Work Phone: [facility] 08-11-2024 13:43-0500 Diastolic blood pressure 86 mm[Hg] Keren Haagen [employer].AGRICULTURAL RESEARCH TECHNICIAN Work Phone: [facility] 08-11-2024 13:43-0500 Systolic blood pressure 162 mm[Hg] Keren Haagen [employer].AGRICULTURAL RESEARCH TECHNICIAN Work Phone: [facility] 08-11-2024 13:03-0500 Heart rate 120 /min Keren Haagen [employer].AGRICULTURAL RESEARCH TECHNICIAN Work Phone: [facility] 08-11-2024 13:03-0500 Respiratory rate 16 /min Keren Haagen [employer].AGRICULTURAL RESEARCH TECHNICIAN Work Phone: [facility] 08-11-2024 13:03-0500 SaO2% (BldA) [Mass fraction] 98 % Keren Haagen [employer].AGRICULTURAL RESEARCH TECHNICIAN Work Phone: [facility] 07-13-2024 13:38-0500 Body mass index (BMI) [Ratio] 29 kg/m2 Rosa Moomaw [employer].AGRICULTURAL RESEARCH TECHNICIAN Work Phone: [facility] 07-13-2024 13:38-0500 Body temperature 98.8 [degF] Rosa Moomaw [employer].AGRICULTURAL RESEARCH TECHNICIAN Work Phone: [facility] 07-13-2024 13:38-0500 Body weight 94.3 kg Rosa Moomaw [employer].AGRICULTURAL RESEARCH TECHNICIAN Work Phone: [facility] 07-13-2024 13:38-0500 Diastolic blood pressure 86 mm[Hg] Rosa Moomaw [employer].AGRICULTURAL RESEARCH TECHNICIAN Work Phone: [facility] 07-13-2024 13:38-0500 Heart rate 111 /min Rosa Moomaw [employer].AGRICULTURAL RESEARCH TECHNICIAN Work Phone: [facility] 07-13-2024 13:38-0500 Respiratory rate 18 /min Rosa Moomaw [employer].AGRICULTURAL RESEARCH TECHNICIAN Work Phone: [facility] 07-13-2024 13:38-0500 SaO2% (BldA) [Mass fraction] 97 % Rosa Moomaw [employer].AGRICULTURAL RESEARCH TECHNICIAN Work Phone: [facility] 07-13-2024 13:38-0500 Systolic blood pressure 150 mm[Hg] Rosa Moomaw [employer].AGRICULTURAL RESEARCH TECHNICIAN Work Phone: [facility] 07-09-2024 16:56-0500 Body mass index (BMI) [Ratio] 29.89 kg/m2 [facility] [employer].AGRICULTURAL RESEARCH TECHNICIAN Work Phone: [facility] 07-09-2024 16:56-0500 Body temperature 98.4 [degF] [facility] [employer].AGRICULTURAL RESEARCH TECHNICIAN Work Phone: [facility] 07-09-2024 16:56-0500 Body weight 97.2 kg [facility] [employer].AGRICULTURAL RESEARCH TECHNICIAN Work Phone: [facility] 07-09-2024 16:56-0500 Diastolic blood pressure 78 mm[Hg] Desmond Pendlebury [employer].AGRICULTURAL RESEARCH TECHNICIAN Work Phone: [facility] 07-09-2024 16:56-0500 Heart rate 98 /min Desmond Zhoujayne [employer].AGRICULTURAL RESEARCH TECHNICIAN Work Phone: [facility] 07-09-2024 16:56-0500 Respiratory rate 18 /min Desmond Neidaricardojayne [employer].AGRICULTURAL RESEARCH TECHNICIAN Work Phone: [facility] 07-09-2024 16:56-0500 SaO2% (BldA) [Mass fraction] 97 % Desmond Neidaricardojayne [employer].AGRICULTURAL RESEARCH TECHNICIAN Work Phone: [facility] 07-09-2024 16:56-0500 Systolic blood pressure 128 mm[Hg] Desmond Carrasquillolejayne [employer].AGRICULTURAL RESEARCH TECHNICIAN Work Phone: [facility] 06-22-2024 16:06-0500 Body height 180.3 cm Alma Delia Larry [employer].AGRICULTURAL RESEARCH TECHNICIAN Work Phone: [facility] 06-22-2024 16:06-0500 Body mass index (BMI) [Ratio] 30.2 kg/m2 Alma Delia Larry [employer].AGRICULTURAL RESEARCH TECHNICIAN Work Phone: [facility] 06-22-2024 16:06-0500 Body temperature 98.91 [degF] Alma Delia Larry [employer].AGRICULTURAL RESEARCH TECHNICIAN Work Phone: [facility] 06-22-2024 16:06-0500 Body weight 98.2 kg Alma Delia Larry [employer].AGRICULTURAL RESEARCH TECHNICIAN Work Phone: [facility] 06-22-2024 16:06-0500 Diastolic blood pressure 92 mm[Hg] Alma Delia Larry [employer].AGRICULTURAL RESEARCH TECHNICIAN Work Phone: [facility] 06-22-2024 16:06-0500 Heart rate 107 /min Alma Delia Larry [employer].AGRICULTURAL RESEARCH TECHNICIAN Work Phone: [facility] 06-22-2024 16:06-0500 SaO2% (BldA) [Mass fraction] 94 % Alma Delia Larry [employer].AGRICULTURAL RESEARCH TECHNICIAN Work Phone: [facility] 06-22-2024 16:06-0500 Systolic blood pressure 142 mm[Hg] Alma Delia Blair [employer].AGRICULTURAL RESEARCH TECHNICIAN Work Phone: [facility] 06-12-2024 14:44-0500 Body mass index (BMI) [Ratio] 30.98 kg/m2 Keren Kwon [employer].AGRICULTURAL RESEARCH TECHNICIAN Work Phone: [facility] 06-12-2024 14:44-0500 Body weight 97.07 kg Keren Kwon [employer].AGRICULTURAL RESEARCH TECHNICIAN Work Phone: [facility] 06-12-2024 14:44-0500 Diastolic blood pressure 92 mm[Hg] Keren Kwon [employer].AGRICULTURAL RESEARCH TECHNICIAN Work Phone: [facility] 06-12-2024 14:44-0500 Heart rate 82 /min Keren Kwon [employer].AGRICULTURAL RESEARCH TECHNICIAN Work Phone: [facility] 06-12-2024 14:44-0500 Respiratory rate 16 /min Keren Kwon [employer].AGRICULTURAL RESEARCH TECHNICIAN Work Phone: [facility] 06-12-2024 14:44-0500 SaO2% (BldA) [Mass fraction] 96 % Keren Kwon [employer].AGRICULTURAL RESEARCH TECHNICIAN Work Phone: [facility] 06-12-2024 14:44-0500 Systolic blood pressure 130 mm[Hg] Keren Kwon [employer].AGRICULTURAL RESEARCH TECHNICIAN Work Phone: [facility] 10-14-2023 13:19-0400 Body height 177.8 cm HOSPITALITY AIDE-C Keren Kwon HOSPITALITY AIDE Work Phone: [facility] 10-14-2023 13:19-0400 Body mass index (BMI) [Ratio] 27.9 kg/m2 HOSPITALITY AIDE-C Keren Kwon HOSPITALITY AIDE Work Phone: [facility] 10-14-2023 13:19-0400 Body weight 88.45 kg HOSPITALITY AIDE-C Keren Kwon HOSPITALITY AIDE Work Phone: [facility] 10-14-2023 13:19-0400 Diastolic blood pressure 91 mm[Hg] HOSPITALITY AIDE-C Keren Kwon HOSPITALITY AIDE Work Phone: [facility] 10-14-2023 13:19-0400 Heart rate 90 /min HOSPITALITY AIDE-C Keren Kwon HOSPITALITY AIDE Work Phone: [facility] 10-14-2023 13:19-0400 Respiratory rate 18 /min HOSPITALITY AIDE-C Keren Nikolaianne HOSPITALITY AIDE Work Phone: [facility] 10-14-2023 13:19-0400 Systolic blood pressure 132 mm[Hg] HOSPITALITY AIDE-C Keren Kwon HOSPITALITY AIDE Work Phone: [facility] 05-16-2023 11:50-0400 Body temperature 98.3 [degF] HOSPITALITY AIDE-C Vani Owen HOSPITALITY AIDE Work Phone: [facility] 05-16-2023 11:50-0400 Diastolic blood pressure 104 mm[Hg] HOSPITALITY AIDE-C Vani Owne HOSPITALITY AIDE Work Phone: [facility] 05-16-2023 11:50-0400 Heart rate 88 /min HOSPITALITY AIDE-C Vani Owen HOSPITALITY AIDE Work Phone: [facility] 05-16-2023 11:50-0400 Respiratory rate 18 /min HOSPITALITY AIDE-C Vani Owen HOSPITALITY AIDE Work Phone: [facility] 05-16-2023 11:50-0400 SaO2% (BldA) [Mass fraction] 99 % HOSPITALITY AIDE-Ang Owen HOSPITALITY AIDE Work Phone: [facility] 05-16-2023 11:50-0400 Systolic blood pressure 142 mm[Hg] HOSPITALITY AIDE-C Vani Owen HOSPITALITY AIDE Work Phone: [facility] 05-14-2023 16:04-0400 Body height 177.8 cm HOSPITALITY AIDE-Ang Owen HOSPITALITY AIDE Work Phone: [facility] 05-14-2023 16:04-0400 Body weight 87.8 kg HOSPITALITY AIDE-Agn Owen HOSPITALITY AIDE Work Phone: [facility] 05-13-2023 17:41-0400 Body mass index (BMI) [Ratio] 27.8 kg/m2 HOSPITALITY AIDE-C Vani Owen HOSPITALITY AIDE Work Phone: [facility] 05-13-2023 16:27-0400 Body temperature 98.7 [degF] HOSPITALITY AIDE-C Vani Owen HOSPITALITY AIDE Work Phone: [facility] 05-13-2023 16:27-0400 Diastolic blood pressure 94 mm[Hg] HOSPITALITY AIDE-C Vani Owen HOSPITALITY AIDE Work Phone: [facility] 05-13-2023 16:27-0400 Heart rate 105 /min HOSPITALITY AIDE-C Vani Owen HOSPITALITY AIDE Work Phone: [facility] 05-13-2023 16:27-0400 Respiratory rate 18 /min HOSPITALITY AIDE-C Vani Owen HOSPITALITY AIDE Work Phone: [facility] 05-13-2023 16:27-0400 SaO2% (BldA) [Mass fraction] 95 % HOSPITALITY AIDE-C Vani Owen HOSPITALITY AIDE Work Phone: [facility] 05-13-2023 16:27-0400 Systolic blood pressure 144 mm[Hg] HOSPITALITY AIDE-C Vani Owen HOSPITALITY AIDE Work Phone: [facility] 05-13-2023 10:52-0400 Body height 177.8 cm HOSPITALITY AIDE-C Vani Owen HOSPITALITY AIDE Work Phone: [facility] 05-13-2023 10:52-0400 Body mass index (BMI) [Ratio] 28.3 kg/m2 HOSPITALITY AIDE-C Vani Owen HOSPITALITY AIDE Work Phone: [facility] 05-13-2023 10:52-0400 Body weight 89.49 kg HOSPITALITY AIDE-C Vani Owen HOSPITALITY AIDE Work Phone: [facility] 04-08-2023 09:32-0400 Body temperature 98.49 [degF] Henry Morrow MD Work Phone: [facility] 04-08-2023 09:32-0400 Body weight 94.26 kg Henry Morrow MD Work Phone: [facility] 04-08-2023 09:32-0400 Diastolic blood pressure 119 mm[Hg] Henry Morrow MD Work Phone: [facility] 04-08-2023 09:32-0400 Heart rate 89 /min Henry Morrow MD Work Phone: [facility] 04-08-2023 09:32-0400 Respiratory rate 20 /min Henry Morrow MD Work Phone: [facility] 04-08-2023 09:32-0400 SaO2% (BldA) [Mass fraction] 98 % Henry Morrow MD Work Phone: [facility] 04-08-2023 09:32-0400 Systolic blood pressure 198 mm[Hg] Henry Morrow MD Work Phone: [facility] 04-01-2023 14:06-0400 Body height 177.[address] Pema Yang Work Phone: [facility] 04-01-2023 14:06-0400 Body mass index (BMI) [Ratio] 29.8 kg/m2 Dr. Pema Yang Work Phone: [facility] 04-01-2023 14:06-0400 Body weight 94.[address] Pema Yang Work Phone: [facility] 04-01-2023 14:06-0400 Diastolic blood pressure 103 mm[Hg] Dr. Pema Yang Work Phone: [facility] 04-01-2023 14:06-0400 Heart rate 91 /min Dr. Pema Yang Work Phone: [facility] 04-01-2023 14:06-0400 Respiratory rate 20 /min Dr. Pema Yang Work Phone: [facility] 04-01-2023 14:06-0400 Systolic blood pressure 181 mm[Hg] Dr. Pema Yang Work Phone: [facility] 01-21-2023 15:27-0400 Diastolic blood pressure 103 mm[Hg] Keren Kwon APRN.CNP Work Phone: [facility] 01-21-2023 15:27-0400 Heart rate 91 /min Keren Kwon [employer].AGRICULTURAL RESEARCH TECHNICIAN Work Phone: [facility] 01-21-2023 15:27-0400 Systolic blood pressure 159 mm[Hg] Keren Kwon [employer].AGRICULTURAL RESEARCH TECHNICIAN Work Phone: [facility] 01-21-2023 14:22-0400 Body weight 92.53 kg Keren Kwon [employer].AGRICULTURAL RESEARCH TECHNICIAN Work Phone: [facility] 01-21-2023 14:22-0400 Respiratory rate 16 /min Keren Kwon [employer].AGRICULTURAL RESEARCH TECHNICIAN Work Phone: [facility] 01-21-2023 14:22-0400 SaO2% (BldA) [Mass fraction] 97 % Keren Kwon [employer].AGRICULTURAL RESEARCH TECHNICIAN Work Phone: [facility] 01-09-2023 06:35-0400 Body height 177.[address] Pema Yang Work Phone: [facility] 01-09-2023 06:35-0400 Body mass index (BMI) [Ratio] 28.4 kg/m2 Dr. Pema Yang Work Phone: [facility] 01-09-2023 06:35-0400 Body temperature 97.2 [degF] Dr. Pema Yang Work Phone: [facility] 01-09-2023 06:35-0400 Body weight 89.[address] Pema Yang Work Phone: [facility] 01-09-2023 06:35-0400 Diastolic blood pressure 107 mm[Hg] Dr. Pema Yang Work Phone: [facility] 01-09-2023 06:35-0400 Heart rate 91 /min Dr. Pema Yang Work Phone: [facility] 01-09-2023 06:35-0400 Respiratory rate 18 /min Dr. Pema Yang Work Phone: [facility] 01-09-2023 06:35-0400 SaO2% (BldA) [Mass fraction] 97 % Dr. Pema Yang Work Phone: [facility] 01-09-2023 06:35-0400 Systolic blood pressure 173 mm[Hg] Dr. Pema Yang Work Phone: [facility] 01-02-2023 11:14-0400 Diastolic blood pressure 86 mm[Hg] Dr. Pema Yang Work Phone: [facility] 01-02-2023 11:14-0400 Heart rate 82 /min Dr. Pema Yang Work Phone: [facility] 01-02-2023 11:14-0400 Respiratory rate 16 /min Dr. Pema Yang Work Phone: [facility] 01-02-2023 11:14-0400 SaO2% (BldA) [Mass fraction] 97 % Dr. Pema Yang Work Phone: [facility] 01-02-2023 11:14-0400 Systolic blood pressure 131 mm[Hg] Dr. Pema Yang Work Phone: [facility] 01-02-2023 08:48-0400 Body mass index (BMI) [Ratio] 28.4 kg/m2 Dr. Pema Yang Work Phone: [facility] 01-02-2023 08:48-0400 Body temperature 96.8 [degF] Dr. Pema Yang Work Phone: [facility] 01-02-2023 08:48-0400 Body weight 89.[address] Pema Yang Work Phone: [facility] 12-24-2022 09:20-0400 Body mass index (BMI) [Ratio] 27.9 kg/m2 Dr. Pema Yang Work Phone: [facility] 12-24-2022 09:20-0400 Body weight 88.[address] Pema Yang Work Phone: [facility] 12-24-2022 09:20-0400 Diastolic blood pressure 100 mm[Hg] Dr. Pema Yang Work Phone: [facility] 12-24-2022 09:20-0400 Heart rate 96 /min Dr. Pema Yang Work Phone: [facility] 12-24-2022 09:20-0400 Respiratory rate 18 /min Dr. Pema Yang Work Phone: [facility] 12-24-2022 09:20-0400 SaO2% (BldA) [Mass fraction] 98 % Dr. Pema Yang Work Phone: [facility] 12-24-2022 09:20-0400 Systolic blood pressure 146 mm[Hg] Dr. Pema Yang Work Phone: [facility] 11-05-2022 13:39-0400 Body weight 93.44 kg Keren Haagen [employer].AGRICULTURAL RESEARCH TECHNICIAN Work Phone: [facility] 11-05-2022 13:39-0400 Diastolic blood pressure 102 mm[Hg] Keren Haagen [employer].AGRICULTURAL RESEARCH TECHNICIAN Work Phone: [facility] 11-05-2022 13:39-0400 Heart rate 76 /min Keren Haagen [employer].AGRICULTURAL RESEARCH TECHNICIAN Work Phone: [facility] 11-05-2022 13:39-0400 Respiratory rate 18 /min Keren Haagen [employer].AGRICULTURAL RESEARCH TECHNICIAN Work Phone: [facility] 11-05-2022 13:39-0400 SaO2% (BldA) [Mass fraction] 97 % Keren Haagen [employer].AGRICULTURAL RESEARCH TECHNICIAN Work Phone: [facility] 11-05-2022 13:39-0400 Systolic blood pressure 158 mm[Hg] Keren Haagen [employer].AGRICULTURAL RESEARCH TECHNICIAN Work Phone: [facility] 06-25-2022 17:52-0500 Body temperature 98.49 [degF] Ziggy Itz [employer].AGRICULTURAL RESEARCH TECHNICIAN Work Phone: [facility] 06-25-2022 17:52-0500 Body weight 98.88 kg Ziggy Itz [employer].AGRICULTURAL RESEARCH TECHNICIAN Work Phone: [facility] 06-25-2022 17:52-0500 Diastolic blood pressure 72 mm[Hg] Ziggy Itz [employer].AGRICULTURAL RESEARCH TECHNICIAN Work Phone: [facility] 06-25-2022 17:52-0500 Heart rate 122 /min Ziggy Itz [employer].AGRICULTURAL RESEARCH TECHNICIAN Work Phone: [facility] 06-25-2022 17:52-0500 Respiratory rate 20 /min Ziggy Itz [employer].AGRICULTURAL RESEARCH TECHNICIAN Work Phone: [facility] 06-25-2022 17:52-0500 SaO2% (BldA) [Mass fraction] 98 % Ziggy Itz [employer].AGRICULTURAL RESEARCH TECHNICIAN Work Phone: [facility] 06-25-2022 17:52-0500 Systolic blood pressure 122 mm[Hg] Ziggy Itz [employer].AGRICULTURAL RESEARCH TECHNICIAN Work Phone: [facility] 06-05-2022 13:38-0500 Body temperature 98.01 [degF] Rebecca Jaycob [employer].AGRICULTURAL RESEARCH TECHNICIAN Work Phone: [facility] 06-05-2022 13:38-0500 Body weight 97.98 kg Rebecca Jaycob [employer].AGRICULTURAL RESEARCH TECHNICIAN Work Phone: [facility] 06-05-2022 13:38-0500 Diastolic blood pressure 82 mm[Hg] Rebecca Jaycob [employer].AGRICULTURAL RESEARCH TECHNICIAN Work Phone: [facility] 06-05-2022 13:38-0500 Heart rate 92 /min Rebecca Jaycob [employer].AGRICULTURAL RESEARCH TECHNICIAN Work Phone: [facility] 06-05-2022 13:38-0500 Respiratory rate 16 /min Rebecca Jaycob [employer].AGRICULTURAL RESEARCH TECHNICIAN Work Phone: [facility] 06-05-2022 13:38-0500 SaO2% (BldA) [Mass fraction] 98 % Rebecca Devries [employer].AGRICULTURAL RESEARCH TECHNICIAN Work Phone: [facility] 06-05-2022 13:38-0500 Systolic blood pressure 132 mm[Hg] Rebecca Jaycob [employer].AGRICULTURAL RESEARCH TECHNICIAN Work Phone: [facility] 02-23-2022 09:18-0400 Body weight 92.99 kg Keren Haagen [employer].AGRICULTURAL RESEARCH TECHNICIAN Work Phone: [facility] 02-23-2022 09:18-0400 Diastolic blood pressure 100 mm[Hg] Keren Haagen [employer].AGRICULTURAL RESEARCH TECHNICIAN Work Phone: [facility] 02-23-2022 09:18-0400 Heart rate 114 /min Keren Haagen [employer].AGRICULTURAL RESEARCH TECHNICIAN Work Phone: [facility] 02-23-2022 09:18-0400 SaO2% (BldA) [Mass fraction] 98 % Keren Kwon [employer].AGRICULTURAL RESEARCH TECHNICIAN Work Phone: [facility] 02-23-2022 09:18-0400 Systolic blood pressure 150 mm[Hg] Keren Haagen [employer].AGRICULTURAL RESEARCH TECHNICIAN Work Phone: [facility] 02-19-2022 15:00-0400 Body temperature 98.2 [degF] Ziggy Mobley [employer].AGRICULTURAL RESEARCH TECHNICIAN Work Phone: [facility] 02-19-2022 15:00-0400 Body weight 92.44 kg Ziggy Mobley [employer].AGRICULTURAL RESEARCH TECHNICIAN Work Phone: [facility] 02-19-2022 15:00-0400 Diastolic blood pressure 110 mm[Hg] Ziggy Itz [employer].AGRICULTURAL RESEARCH TECHNICIAN Work Phone: [facility] 02-19-2022 15:00-0400 Heart rate 93 /min Ziggy Itz [employer].AGRICULTURAL RESEARCH TECHNICIAN Work Phone: [facility] 02-19-2022 15:00-0400 Respiratory rate 21 /min Ziggy Mobley [employer].AGRICULTURAL RESEARCH TECHNICIAN Work Phone: [facility] 02-19-2022 15:00-0400 SaO2% (BldA) [Mass fraction] 100 % Ziggy Mobley [employer].AGRICULTURAL RESEARCH TECHNICIAN Work Phone: [facility] 02-19-2022 15:00-0400 Systolic blood pressure 150 mm[Hg] Ziggy Mobley [employer].AGRICULTURAL RESEARCH TECHNICIAN Work Phone: [facility] 11-15-2021 13:43-0400 Diastolic blood pressure 92 mm[Hg] Keren Haagen [employer].AGRICULTURAL RESEARCH TECHNICIAN Work Phone: [facility] 11-15-2021 13:43-0400 Heart rate 97 /min Keren Haagen [employer].AGRICULTURAL RESEARCH TECHNICIAN Work Phone: [facility] 11-15-2021 13:43-0400 Respiratory rate 18 /min Keren Haagen [employer].AGRICULTURAL RESEARCH TECHNICIAN Work Phone: [facility] 11-15-2021 13:43-0400 SaO2% (BldA) [Mass fraction] 97 % Keren Menchacaagen [employer].AGRICULTURAL RESEARCH TECHNICIAN Work Phone: [facility] 11-15-2021 13:43-0400 Systolic blood pressure 118 mm[Hg] Keren Haagen [employer].AGRICULTURAL RESEARCH TECHNICIAN Work Phone: [facility] 11-08-2021 17:43-0400 Body height 177.8 cm [facility] Work Phone: 11-08-2021 17:43-0400 Body mass index (BMI) [Ratio] 33 kg/m2 [facility] Work Phone: 11-08-2021 17:43-0400 Body temperature 97.4 [degF] [facility] Work Phone: 11-08-2021 17:43-0400 Body weight 104.32 kg [facility] Work Phone: 11-08-2021 17:43-0400 Diastolic blood pressure 80 mm[Hg] [facility] Work Phone: 11-08-2021 17:43-0400 Heart rate 103 /min [facility] Work Phone: 11-08-2021 17:43-0400 Respiratory rate 18 /min [facility] Work Phone: 11-08-2021 17:43-0400 SaO2% (BldA) [Mass fraction] 97 % [facility] Work Phone: 11-08-2021 17:43-0400 Systolic blood pressure 129 mm[Hg] [facility] Work Phone: 11-01-2021 15:31-0400 Body height 177 cm Keren Haagen [employer]KER.AGRICULTURAL RESEARCH TECHNICIAN Work Phone: [facility] 11-01-2021 15:31-0400 Body weight 96.62 kg Keren Haagen [employer].AGRICULTURAL RESEARCH TECHNICIAN Work Phone: [facility] 11-01-2021 15:31-0400 Diastolic blood pressure 96 mm[Hg] Keren Haagen [employer].AGRICULTURAL RESEARCH TECHNICIAN Work Phone: [facility] 11-01-2021 15:31-0400 Heart rate 103 /min Keren Haagen [employer]KER.AGRICULTURAL RESEARCH TECHNICIAN Work Phone: [facility] 11-01-2021 15:31-0400 Respiratory rate 18 /min Keren Haagen [employer].AGRICULTURAL RESEARCH TECHNICIAN Work Phone: [facility] 11-01-2021 15:31-0400 SaO2% (BldA) [Mass fraction] 96 % Keren Haagen [employer].AGRICULTURAL RESEARCH TECHNICIAN Work Phone: [facility] 11-01-2021 15:31-0400 Systolic blood pressure 118 mm[Hg] Keren Haagen [employer].AGRICULTURAL RESEARCH TECHNICIAN Work Phone: [facility] Encounters Encounter Date Encounter Type Care Provider Facility Start: 03-29-2025 ambulatory Julius Lovell Facility :[facility] Start: 02-09-2025 End: 02-09-2025 Patient encounter procedure Gary VALLECILLO Work Phone: [facility] Comment on above: Lower abdominal pain (Primary Dx); Diarrhea, unspecified type Start: 02-09-2025 End: 02-09-2025 ambulatory GARY HUTTON Facility:[facility] Start: 02-01-2025 End: 02-01-2025 Refill Keren Haagen [employer].AGRICULTURAL RESEARCH TECHNICIAN Work Phone: [facility] Comment on above: Refill Request Start: 01-19-2025 End: 01-19-2025 Refill Keren Haagen [employer].AGRICULTURAL RESEARCH TECHNICIAN Work Phone: [facility] Comment on above: Refill Request Start: 12-22-2024 End: 12-22-2024 Refill Keren Haagen [employer].AGRICULTURAL RESEARCH TECHNICIAN Work Phone: [facility] Comment on above: Refill Request Start: 12-11-2024 End: 12-11-2024 ambulatory [facility] Facility:[facility] Start: 11-30-2024 ambulatory Julius Lovell Facility :[facility] Start: 11-24-2024 End: 11-24-2024 Refill Keren Haagen [employer] COOKIE MAKER.AGRICULTURAL RESEARCH TECHNICIAN Work Phone: [facility] Comment on above: Refill Request Start: 10-08-2024 End: 12-08-2024 Follow-up encounter Chirs Devlin APRN.AGRICULTURAL RESEARCH TECHNICIAN, DNP Work Phone: Urology Start: 10-07-2024 End: 10-07-2024 [facility] Facility:[facility] Start: 10-07-2024 End: 10-07-2024 Patient encounter procedure Juarez Hernández DO Work Phone: [facility] Comment on above: Medial epicondylitis , right elbow (Primary Dx); Elbow pain, right Start: 10-02-2024 End: 10-02-2024 Refill Keren Haagen FORTUNE COOKIE MAKER.AGRICULTURAL RESEARCH TECHNICIAN Work Phone: [facility] Comment on above: Refill Request Start: 09-29-2024 End: 09-29-2024 Refill Keren Haagen FORTUNE COOKIE MAKER.AGRICULTURAL RESEARCH TECHNICIAN Work Phone: [facility] Comment on above: Refill Request Start: 09-28-2024 End: 09-28-2024 ambulatory [facility] Facility:[facility] Start: 09-28-2024 End: 09-28-2024 Office outpatient visit [...] Chronic insomnia Start: 09-28-2024 End: 09-28-2024 ambulatory [facility] Facility:[facility] Start: 09-25-2024 End: 09-25-2024 Telephone encounter Chris [...] of left knee Start: 08-31-2024 End: 08-31-2024 [facility] Facility:[facility] Start: 08-28-2024 End: 08-31-2024 Telephone encounter Keren Kwon APRN.CNP Work Phone: [facility] [place] Comment on above: Results Start: 08-27-2024 End: 08-27-2024 ambulatory [facility] Facility:[facility] Start: 08-27-2024 End: 08-27-2024 Subsequent hospital visit by physician [facility] Work Phone: Radiology Comment [...] Start: 08-24-2024 End: 08-24-2024 ambulatory KEREN ANNE Facility:[facility] Start: 08-19-2024 End: 08-20-2024 Refill Keren Kwon APRN.AGRICULTURAL RESEARCH TECHNICIAN Work Phone: [facility] [place] Comment on above: Refill Request Start: 08-12-2024 End: 08-21-2024 Telephone encounter Keren Kwon APRN.AGRICULTURAL RESEARCH TECHNICIAN Work Phone: [facility] [place] Comment on above: Results Start: 08-11-2024 End: 08-11-2024 Subsequent hospital visit by physician X[facility] [place] Work Phone: Radiology Comment on above: Acute pain of left k nee [M25.562] Start: 08-11-2024 End: 08-11-2024 Office outpatient visit 25 minutes Keren Kwon APRN.AGRICULTURAL RESEARCH TECHNICIAN Work Phone: [facility] [place] Comment on above: Acute pain of left k nee (Primary Dx); Moderate hypertension Start: 08-11-2024 End: 08-11-[address] [facility] Start: 08-07-2024 End: 08-07-2024 Telephone encounter Keren Kwon APRN.AGRICULTURAL RESEARCH TECHNICIAN Work Phone: [facility] Comment on above: Results Start: 08-05-2024 End: 08-05-2024 ambulatory [facility] Facility:[facility] Start: 07-23-2024 End: 07-23-2024 Emergency department patient visit Keren Kwon NP Facility:[facility] Start: 07-21-2024 End: 07-21-2024 Refill Keren Kwon APRN.AGRICULTURAL RESEARCH TECHNICIAN Work Phone: [facility] [place] Comment on above: Refill Request Start: 07-13-2024 End: 07-13-2024 ambulatory No Pcp [employer] [facility] Start: 07-13-2024 End: 07-13-2024 Patient encounter procedure No Pcp [employer] [facility] Comment on above: Acute cough (Primary Dx) Start: 07-13-2024 End: 07-13-2024 Subsequent hospital visit by physician X[facility] [place] Work Phone: Radiology Comment on above: Acute cough [R05.1] Start: 07-10-2024 End: 07-10-2024 Refill Keren Kwon APRN.CNP Work Phone: [facility] [place] Comment on above: Refill Request Start: 07-09-2024 End: 07-09-2024 Subsequent hospital visit by physician [facility] [place] Work Phone: Radiology Comment on above: Injury of right elbo w, initial encounter [S59.901A] Start: 07-09-2024 End: 07-09-2024 [facility] Facility:[facility] Start: 07-09-2024 End: 07-09-2024 Office outpatient visit 15 minutes Desmond Duncan APRN.AGRICULTURAL RESEARCH TECHNICIAN Work Phone: [facility] Comment on above: Sore throat (Primary Dx); Injury of right elbow, initial encounter; Viral illness Start: 07-09-2024 End: 07-12-2024 Telephone encounter Desmond Duncan APRN.AGRICULTURAL RESEARCH TECHNICIAN Work Phone: [facility] Comment on above: Results Start: 06-29-2024 ambulatory [facility] Facility:[facility] [place] Start: 06-22-2024 End: 06-22-2024 ambulatory [facility] Start: 06-22-2024 End: 06-22-2024 Patient encounter procedure Alma Delia Garza APRN.AGRICULTURAL RESEARCH TECHNICIAN Work Phone: General Surgery Comment on above: Family hx of colon c ancer (Primary Dx); Screening for colon cancer; Hx of colonic polyps Start: 06-22-2024 End: 06-23-2024 Telephone encounter Alma Delia Garza APRN.AGRICULTURAL RESEARCH TECHNICIAN Work Phone: General Surgery Start: 06-12-2024 End: 06-12-2024 Office outpatient visit 25 minutes Keren Haagen [employer]OOK[employer] MAKER.AGRICULTURAL RESEARCH TECHNICIAN Work Phone: [facility] [place] Comment on above: Coronary artery dise ase due to lipid rich plaque (Primary Dx); Encounter for immunization; Hypertriglyceridemia; GERD without esophagitis; Anxiety and depression; Hypomagnesemia; Chronic alcohol abuse; Chronic insomnia; Acute right-sided low back pain without sciatica; Moderate hypertension; Screening for prostate cancer; Screening for colon cancer; Bilateral carotid artery stenosis Start: 06-12-2024 End: 06-12-2024 ambulatory KEREN KWON Facility:[facility] Start: 10-14-2023 End: 10-14-2023 ambulatory HOSPITALITY AIDE-C Keren Kwon HOSPITALITY AIDE Work Phone: [facility] Work Phone: Start: 10-14-2023 End: 10-14-2023 Patient encounter procedure HOSPITALITY AIDE-C Keren Kwon HOSPITALITY AIDE Work Phone: [facility] Work Phone: Start: 05-15-2023 Non-patient / Non-visit HOSPITALITY AIDE-C Harjinder Owen NP Work Phone: [facility] Work Phone: Start: 05-14-2023 Non-patient / Non-visit HOSPITALITY AIDE-C Harjinder Owen HOSPITALITY AIDE Work Phone: [facility] Work Phone: Start: 05-13-2023 Non-patient / Non-visit HOSPITALITY AIDE-C Harjinder Owen HOSPITALITY AIDE Work Phone: [facility] Work Phone: Start: 05-13-2023 End: 05-16-2023 Evaluation and management of inpatient HOSPITALITY AIDE-C Vani Owen HOSPITALITY AIDE Work Phone: [facility] 3 Work Phone: Start: 04-09-2023 Telephone encounter Henry Espinosa MD Work Phone: Urgent Care Comment on above: Results Start: 04-08-2023 End: 04-08-2023 Patient encounter procedure Henry Morrow MD Work Phone: [facility] Comment on above: Influenza-like illne ss (Primary Dx); Hypertension, essential Start: 04-02-2023 Non-patient / Non-visit Dr. Alberto Yang Work Phone: [facility] Start: 04-01-2023 End: 04-01-[address] Pema Yang Work Phone: [facility] Work Phone: Start: 04-01-2023 End: 04-01-[address] Pema Yang Work Phone: [facility] Work Phone: Start: 02-11-2023 Non-patient / Non-visit Dr. Alberto Yang Work Phone: [facility] Start: 02-11-2023 End: 02-11-[address] Pema Yang Work Phone: [facility] Work Phone: Start: 02-11-2023 End: 02-11-[address] 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 Pema Yang Work Phone: [facility] Work Phone: Start: 01-17-2023 End: 01-17-[address] Pema Yang Work Phone: [facility]-Cat Scan, [facility] Work Phone: Start: 01-09-2023 End: 01-09-[address] Pema Yang Work Phone: [facility] Work Phone: Start: 01-02-2023 End: 01-02-2023 Emergency department patient visit Dr. Pema Yang Work Phone: [facility] Work Phone: Start: 12-26-2022 Telephone encounter Keren rodríguez APRN.AGRICULTURAL RESEARCH TECHNICIAN Work Phone: [facility] Comment on above: Results Start: 12-24-2022 End: 12-24-[address] Pema Yang Work Phone: [facility] Work Phone: Start: 11-05-2022 End: 11-05-2022 Office outpatient visit 25 minutes Keren Kwon APRN.AGRICULTURAL RESEARCH TECHNICIAN Work Phone: [facility] Comment on above: Hypertension, essent ial (Primary Dx); GERD without esophagitis; Acute right-sided low back pain without sciatica; Anxiety and depression; Hypertriglyceridemia; Chronic alcohol abuse; 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; Renal insufficiency; Special screening examination for viral disease; Chronic insomnia; Bilateral carotid artery stenosis Start: 06-25-2022 End: 06-25-2022 Subsequent hospital visit by physician Xr [facility] Work Phone: Radiology Comment on above: Foot pain, right [M7 9.671] Start: 06-25-2022 End: 06-25-2022 Patient encounter procedure Ziggy Mobley APRN.AGRICULTURAL RESEARCH TECHNICIAN Work Phone: [facility] Comment on above: Foot pain, right (Pr imary Dx) Start: 06-05-2022 End: 06-05-2022 Patient encounter procedure Rebecca Devries GERARDO.AGRICULTURAL RESEARCH TECHNICIAN Work Phone: [facility] Comment on above: Body aches (Primary Dx); Flu-like symptoms Start: 03-28-2022 Refill Keren Kwon APRN.AGRICULTURAL RESEARCH TECHNICIAN Work Phone: [facility] Comment on above: Refill Request Start: 02-23-2022 Telephone encounter Mikhail Mancia MD Work Phone: [facility] Comment on above: Results Start: 02-23-2022 End: 02-23-2022 Office outpatient visit 15 minutes Keren Kwon APRN.AGRICULTURAL RESEARCH TECHNICIAN Work Phone: [facility] Comment on above: Sinobronchitis (Prim braeden Dx); Anxiety and depression; Hypertension, essential; Hypertriglyceridemia; Chronic alcohol abuse; Chest pain, unspecified type; 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; Chronic insomnia; GERD without esophagitis; Acute right-sided low back pain without sciatica; Dermatitis Start: 02-19-2022 End: 02-19-2022 Subsequent hospital visit by physician Xr [facility] Work Phone: Radiology Comment on above: Acute cough [R05.1] Start: 02-19-2022 End: 02-19-2022 Patient encounter procedure Ziggy King GERARDO.AGRICULTURAL RESEARCH TECHNICIAN Work Phone: [facility] Comment on above: Acute cough (Primary Dx); Hypertension, essential; URI, acute Start: 11-15-2021 End: 11-15-2021 Patient encounter procedure Keren Kwon APRN.AGRICULTURAL RESEARCH TECHNICIAN Work Phone: [facility] [place] Comment on above: Upper back pain (Mary danish Dx); Function kidney decreased Start: 11-09-2021 Telephone encounter Rolando Young PA-C Work Phone: [facility] Comment on above: Results report from [facility] Start: 11-08-2021 End: 11-08-2021 Emergency department patient visit [facility] Start: 11-08-2021 ambulatory Haris Dawkins RN [facility] Start: 11-08-2021 Patient encounter procedure Haris Dawkins RN NURSE TRANSPORT COORDINATOR Comment on above: Referral Request Start: 11-08-2021 Telephone encounter Keren rodríguez APRN.[facility] Work Phone: [facility] [place] Comment on above: Results Start: 11-01-2021 End: 11-01-2021 Patient encounter procedure Keren Kwon APRN.[facility] Work Phone: [facility] [place] Comment on above: Chest pain, unspecif ied [...] disorders Start: 03-18-2018 Ambulatory CANDELARIO ARELLANO Facility :[facility] Start: 09-10-2017 End: 09-10-2017 [facility] Procedures Date Procedure Procedure Detail Performing Clinician Start: 10-07-2024 Injection single tendon origin/insertion Juarez Hernández DO Work Phone: Start: 09-28-2024 Urnls dip stick/tablet rgnt auto w/o microscopy Chris Devlin FORT[employer]E COOKIE MAKER.AGRICULTURAL RESEARCH TECHNICIAN, DNP Work Phone: Start: 08-27-2024 Us abdominal real time w/image limited Keren Kwon APRN.AGRICULTURAL RESEARCH TECHNICIAN Work Phone: Start: 08-05-2024 Lipid 1996 panel - Serum or Plasma Keren Kwon APRN.AGRICULTURAL RESEARCH TECHNICIAN Work Phone: Start: 07-13-2024 Radiologic exam chest 2 views Rosa Moomajodie [employer]OOKIE MAKER.AGRICULTURAL RESEARCH TECHNICIAN Work Phone: Start: 07-09-2024 Radex elbow complete minimum 3 views Desmond Duncan [employer]E [employer]OOKIE MAKER.AGRICULTURAL RESEARCH TECHNICIAN Work Phone: Start: 07-09-2024 STREP A MOLECULAR (POC) Rocio Messina [employer]OOKIE MAKER.AGRICULTURAL RESEARCH TECHNICIAN Work Phone: Start: 05-13-2023 Nucleic acid assay HOSPITALITY AIDE-C Vani Owen N P Work Phone: Start: 05-13-2023 US scan of gallbladder HOSPITALITY AIDE-C Vani lloyd HOSPITALITY AIDE Work Phone: Start: 05-13-2023 CT of abdomen and pelvis without contrast HOSPITALITY AIDE-C Vani Owen HOSPITALITY AIDE Work Phone: Start: 02-11-2023 Radionuclide imaging of [...] foot complete minimum 3 views Ziggy Mobley APRN.AGRICULTURAL RESEARCH TECHNICIAN Work Phone: Start: 02-19-2022 Radiologic exam chest 2 views Ziggy Mobley APRN.AGRICULTURAL RESEARCH TECHNICIAN Work Phone: Start: 11-08-2021 CT of abdomen and pelvis without contrast Start: 01-12-2019 Colonoscopy Keren Kwon APRN.AGRICULTURAL RESEARCH TECHNICIAN Work Phone: H/O: surgery Hx of eye surgery History of tonsillectomy History of tonsi llectomy Plan of Treatment Date Care Activity Detail Author Start: 12-30-2031 Pneumococcal vaccination Pneumococcal Vaccine (3 of 3 - PPSV23 or PCV20) [facility] Start: 10-07-2029 Prostate specific antigen measurement Prostate Cancer Screening Discussion [facility] Start: 08-11-2029 Prostate specific antigen measurement Prostate Cancer Screening Discussion [facility] Start: 08-05-2029 Lipid panel Lipid Screening [facility] Start: 08-05-2029 Prostate specific antigen measurement Prostate Cancer Screening Discussion [facility] Start: 11-06-2027 Lipid 1996 panel - Serum or Plasma Lipid Screening [facility] Start: 11-06-2027 Lipid panel Lipid Screening [facility] Start: 11-06-2027 LIPID SCREEN LIPID SCREEN [facility] Start: 08-11-2027 Diabetes Screening Diabetes Screening [facility] Start: 08-05-2027 Diabetes Screening Diabetes Screening [facility] Start: 02-21-2027 LIPID SCREEN LIPID SCREEN [facility] Start: 11-07-2026 LIPID SCREEN LIPID SCREEN [facility] Start: 07-10-2026 Urine microalbumin profile [facility] Start: 12-11-2025 Annual PCP Team Chronic Disease Visit Annual PCP Team Chronic Disease Visit [facility] Start: 11-05-2025 DIABETES SCREEN DIABETES SCREEN [facility] Start: 11-05-2025 Diabetes Screening Diabetes Screening [facility] Start: 09-28-2025 Annual PCP Team Chronic Disease Visit Annual PCP Team Chronic Disease Visit [facility] Start: 08-31-2025 Annual PCP Team Chronic Disease Visit Annual PCP Team Chronic Disease Visit [facility] Start: 08-24-2025 Annual PCP Team Chronic Disease Visit Annual PCP Team Chronic Disease Visit [facility] Start: 08-11-2025 Annual PCP Team Chronic Disease Visit Annual PCP Team Chronic Disease Visit [facility] Start: 08-05-2025 Hepatitis B surface antibody level LDL Cholesterol [facility] Start: 07-09-2025 BP Controlled (<130/80) BP Controlled (<130/80) [facility] Start: 06-14-2025 End: 06-14-2025 Patient encounter procedure 06/14/2025 2:40 PM EST Office Visit Family [facility] [address] [place] [id number] Keren Kwon, [employer] COOKIE MAKER.AGRICULTURAL RESEARCH TECHNICIAN [address] [place] [address] 6 month follow up/Annual [facility] [place] Comment on above: 6 month follow up/Annual Start: 06-12-2025 Annual PCP Team Chronic Disease Visit Annual PCP Team Chronic Disease Visit [facility] Start: 06-12-2025 HIV screening HIV Screening [facility] Comment on above: Postponed from 1984 (Declined at t his time) Start: 03-22-2025 Influenza vaccination Influ[facility] Vaccine (#1[facility] Start: 01-06-2025 LIPID SCREEN LIPID SCREEN [facility] Start: 12-21-2024 End: 03-22-2025 Prostate Specific Ag Free [Mass/volume] in Serum or Plasma PROSTATE SPECIFIC ANTIGEN, FREE Lab Routine Elevated PSA Expected: 12/21/2024, Expires: 03/22/2025 [facility] Work Phone: Comment on above: Expected: 12/21/2024, Expires: Start: 12-11-2024 End: 12-11-2024 Patient encounter procedure 12/11/2024 2:20 PM EDT Office Visit [facility] [place] [address] [place] [address] Keren Kwon, FORT[employer]OOKIE MAKER.AGRICULTURAL RESEARCH TECHNICIAN [address] [place] [address] Follow up visit. [facility] Comment on above: Follow up visit. Start: 12-01-2024 End: 12-01-2024 Patient encounter procedure 12/01/2024 2:40 PM EDT Office Visit [facility] [place] [address] [place] [address] Keren Kwon, FORT[employer] COOKIE MAKER.AGRICULTURAL RESEARCH TECHNICIAN [address] [place] [address] Follow up from injury [facility] [place] Comment on above: Follow up from injury Start: 11-30-2024 End: 11-30-2024 Patient encounter procedure 11/30/2024 1:00 PM EDT Office Visit Urology [address] [place] [address] Chris Devlin, FORT[employer] COOKIE MAKER.AGRICULTURAL RESEARCH TECHNICIAN, DNP [address] [place] [address] 1 month f/u- BPH, Elevated PSA Urology Comment on above: 1 month f/u- BPH, Elevated PSA Start: 11-07-2024 DIABETES SCREEN DIABETES SCREEN [facility] Start: 11-02-2024 End: 11-02-2024 Patient encounter procedure 11/02/2024 1:00 PM EDT [facility] [address] [place] [address] Keren Kwon APRN.AGRICULTURAL RESEARCH TECHNICIAN [address] [place] [address] 3 month follow up Family [facility] Comment on above: 3 month follow up Start: 10-07-2024 End: 10-07-2024 Patient encounter procedure 10/07/2024 1:30 PM EDT Office Visit Family [facility] [place] [address] [place] [address] Juarez Hernández V, DO [address] [place] [address] Elbow pain, right [M25.521] Family [facility] Comment on above: Elbow pain, right [M25.521] Start: 09-29-2024 End: 2024 Prostate Specific Ag Free [Mass/volume] in Serum or Plasma PROSTATE SPECIFIC ANTIGEN, FREE Lab Routine Elevated PSA Expected: 09/29/2024, Expires: 2024 [facility] Comment on above: Expected: 09/29/2024, Expires: Start: 09-28-2024 End: 09-28-2024 Patient encounter procedure Urology Comment on above: Elevated PSA [R97.20] 4 week BP check Elevated PSA. Patien t to come in at 1230. [facility] Start: 08-31-2024 End: 08-31-2024 Patient encounter procedure 08/31/2024 3:20 PM EST Office Visit Family Juanito Masterson [address] [place] [address] Keren Kwon APRN.AGRICULTURAL RESEARCH TECHNICIAN [address] [place] [address] 1 week BP check [facility] Juan[facility] Masterson Comment on above: 1 week BP check Start: 08-27-2024 End: 08-27-2024 Patient encounter procedure 08/27/2024 1:45 PM EST Appointment Radiology [address] [place] [address] Elevated alkaline phosphatase level [R74.8] Radiology Comment on above: Elevated alkaline phosphatase level [R74 .8] Start: 08-24-2024 End: 08-24-2024 Patient encounter procedure 08/24/2024 11:20 AM EST Office Visit [facility] [address] [place] [address] Keren Kwon APRN.AGRICULTURAL RESEARCH TECHNICIAN [address] [address] f/u left knee pain [facility] Comment on above: f/u left knee pain Start: 08-11-2024 End: 11-10-2024 C reactive protein [Mass/volume] in Serum or Plasma [facility] Comment on above: Expected: 08/11/2024, Expires: Start: 08-11-2024 End: 11-10-2024 Erythrocyte sedimentation rate [facility] Comment on above: Expected: 08/11/2024, Expires: Start: 08-11-2024 End: 11-10-2024 Urate [Mass/volume] in Serum or Plasma [facility] Comment on above: Expected: 08/11/2024, Expires: Start: 08-11-2024 End: 08-11-2024 Patient encounter procedure 08/11/2024 1:00 PM EST Office Visit [facility] [place] [address] [place] [address] Keren Kwon, FORT[employer] COOKIE MAKER.AGRICULTURAL RESEARCH TECHNICIAN [address] [place] [address] [facility] 07/23/24 dx: L knee pain after falling from ladder [facility] Comment on above: [facility] 07/23/24 dx: L knee pain after fall ing from ladder Start: 08-07-2024 End: 11-06-2024 ALK PHOS ISOENZYM BL ALK PHOS ISOENZYM BL Lab Routine Elevated alkaline phosphatase level Expected: 08/07/2024, Expires: 11/06/2024 [facility] Comment on above: Expected: 08/07/2024, Expires: Start: 08-07-2024 End: 11-06-2024 Basic metabolic 2000 panel - Serum or Plasma BASIC METABOLIC PANEL Lab Routine Hyponatremia Expected: 08/07/2024, Expires: 11/06/2024 [facility] Work Phone: Comment on above: Expected: 08/07/2024, Expires: Start: 08-07-2024 End: 11-06-2024 CBC W Auto Differential panel - Blood COMPLETE BLOOD COUNT AND DIFFERENTIAL Lab Routine Elevated hemoglobin (HCC) Expected: 08/07/2024, Expires: 11/06/2024 [facility] Comment on above: Expected: 08/07/2024, Expires: Start: 08-07-2024 End: 11-06-2024 Osmolality of Urine OSMOLALITY URINE Lab Routine Hyponatremia Expected: 08/07/2024, Expires: 11/06/2024 [facility] Comment on above: Expected: 08/07/2024, Expires: Start: 08-07-2024 End: 11-06-2024 Prostate Specific Ag Free [Mass/volume] in Serum or Plasma PROSTATE SPECIFIC ANTIGEN, FREE Lab Routine Elevated PSA Expected: 08/07/2024, Expires: 11/06/2024 [facility] Comment on above: Expected: 08/07/2024, Expires: Start: 08-07-2024 End: 11-06-2024 Sodium [Moles/volume] in Urine collected for unspecified duration SODIUM RANDOM URINE Lab Routine Hyponatremia Expected: 08/07/2024, Expires: 11/06/2024 [facility] [facility] Comment on above: Expected: 08/07/2024, Expires: Start: 08-05-2024 End: 08-05-2024 Patient encounter procedure 08/05/2024 12:30 PM EST Office Visit Vasculary Surgery [address] [place] [address] Bilateral carotid artery stenosis [I65.23] [facility] Comment on above: Bilateral carotid artery stenosis [I65.2 3] Start: 07-08-2024 End: 07-08-2024 Patient encounter procedure 07/08/2024 3:30 PM EST Office Visit [facility] [address] [place] [address] Bilateral carotid artery stenosis [I65.23] [facility] Comment on above: Bilateral carotid artery stenosis [I65.2 3] Start: 06-22-2024 End: 06-22-2024 Patient encounter procedure 06/22/2024 4:00 PM EST Office Visit General Surgery [address] [place] [address] Alma Delia Garza APRN.AGRICULTURAL RESEARCH TECHNICIAN [address] [place] [address] Screening for colon cancer [Z12.11] General Surgery Comment on above: Screening for colon cancer [Z12.11] Start: 06-12-2024 End: 09-11-2024 CBC W Auto Differential panel - Blood COMPLETE BLOOD COUNT AND DIFFERENTIAL Lab Routine Moderate hypertension Expected: 06/12/2024, Expires: 09/11/2024 [facility] Work Phone: Comment on above: Expected: 06/12/2024, Expires: Start: 06-12-2024 End: 09-11-2024 Cobalamin (Vitamin B12) [Mass/volume] in Serum or Plasma VITAMIN B12 Lab Routine Chronic alcohol abuse Expected: 06/12/2024, Expires: 09/11/2024 [facility] Comment on above: Expected: 06/12/2024, Expires: Start: 06-12-2024 End: 09-11-2024 Comprehensive metabolic 2000 panel - Serum or Plasma COMPREHENSIVE METABOLIC PANEL Lab Routine Moderate hypertension Expected: 06/12/2024, Expires: 09/11/2024 [facility] Comment on above: Expected: 06/12/2024, Expires: Start: 06-12-2024 End: 09-11-2024 Folate [Mass/volume] in Serum or Plasma FOLATE, SERUM Lab Routine Chronic alcohol abuse Expected: 06/12/2024, Expires: 09/11/2024 [facility] Comment on above: Expected: 06/12/2024, Expires: Start: 06-12-2024 End: 09-11-2024 Lipid 1996 panel - Serum or Plasma LIPID PANEL BASIC Lab Routine Hypertriglyceridemia Coronary artery disease due to lipid rich plaque Expected: 06/12/2024, Expires: 09/11/2024 [facility] Comment on above: Expected: 06/12/2024, Expires: Start: 06-12-2024 End: 09-11-2024 Magnesium [Mass/volume] in Serum or Plasma MAGNESIUM Lab Routine Hypomagnesemia Chronic alcohol abuse Expected: 06/12/2024, Expires: 09/11/2024 [facility] Comment on above: Expected: 06/12/2024, Expires: Start: 06-12-2024 End: 09-11-2024 PSA/PROSTATE SPECIFIC ANTIGEN SCREENING PSA/PROSTATE SPECIFIC ANTIGEN SCREENING Lab Routine Screening for prostate cancer Expected: 06/12/2024, Expires: 09/11/2024 [facility] Comment on above: Expected: 06/12/2024, Expires: Start: 03-22-2024 Covid-19 Vaccine ( season) Covid-19 Vaccine () [facility] Start: 03-22-2024 Influenza vaccination Influenza Vaccine (#1) [facility] Start: 01-22-2024 ANNUAL PCP TEAM CHRONIC DISEASE VISIT ANNUAL PCP TEAM CHRONIC DISEASE VISIT [facility] Start: 01-13-2024 Colonoscopy COLONOSCOPY [facility] Start: 01-13-2024 COLORECTAL CANCER SCREENING COLORECTAL CANCER SCREENING [facility] Start: 01-13-2024 Screening for malignant neoplasm of colon [facility] Start: 11-06-2023 ANNUAL PCP TEAM CHRONIC DISEASE VISIT ANNUAL PCP TEAM CHRONIC DISEASE VISIT [facility] Start: 11-06-2023 COVID-19 VACCINE (#1) COVID-19 VACCINE (#1) [facility] Comment on above: Postponed from 06/30/1967 (Declined at t his time) Start: 11-06-2023 HEPATITIS B (1 of 3 - 3-dose series) HEPATITIS B (1 of 3 - 3-dose series) [facility] Comment on above: Postponed from 1966 (Declined at t his time) Start: 11-06-2023 Hepatitis B Vaccine (1 of 3 - 3-dose series) Hepatitis B Vaccine (1 of 3 - 3-dose series) [facility] Comment on above: Postponed from 1966 (Declined at t his time) Start: 11-06-2023 HIV SCREENING HIV SCREENING [facility] Comment on above: Postponed from 1984 (Declined at t his time) Start: 11-06-2023 PROSTATE CANCER SCREENING DISCUSSION PROSTATE CANCER SCREENING DISCUSSION [facility] Comment on above: Postponed from 2021 (Declined at t his time) Start: 06-25-2023 BP CONTROLLED (<130/80) BP CONTROLLED (<130/80) [facility] Start: 05-16-2023 Patient discharge [facility] Start: 05-13-2023 Ambulation without limitation [facility] Start: 05-13-2023 Assessment of risk of venous thromboembolism [facility] Start: 05-13-2023 Inhalation therapy procedure [facility] Start: 05-13-2023 Insertion of catheter into peripheral vein [facility] Start: 05-13-2023 Measuring intake and output [facility] Start: 05-13-2023 Oxygen therapy [facility] Start: 05-13-2023 Providing care according to standard [facility] Start: 05-13-2023 Referral to service [facility] Start: 05-13-2023 End: 05-13-2023 [facility] Start: 05-13-2023 Following clinical pathway protocol [facility] Start: 05-13-2023 Verification routine [facility] Start: 05-13-2023 Admission procedure [facility] Start: 05-13-2023 Hospital admission, emergency, from emergency room, medical nature [facility] Start: 05-13-2023 [facility] Start: 05-13-2023 Consultation [facility] Start: 05-13-2023 Patient referral to dietitian [facility] Start: 03-22-2023 Influenza vaccination [facility] Start: 02-23-2023 ANNUAL PCP TEAM CHRONIC DISEASE VISIT ANNUAL PCP TEAM CHRONIC DISEASE VISIT [facility] Start: 01-21-2023 End: 03-23-2023 Cobalamin (Vitamin B12) [Mass/volume] in Serum or Plasma [facility] Work Phone: Comment on above: Expected: 01/21/2023, Expires: 3 Start: 01-21-2023 End: 03-23-2023 Folate [Mass/volume] in Serum or Plasma [facility] Work Phone: Comment on above: Expected: 01/21/2023, Expires: 3 Start: 01-06-2023 DIABETES SCREEN DIABETES SCREEN [facility] Start: 11-15-2022 ANNUAL PCP TEAM CHRONIC DISEASE VISIT ANNUAL PCP TEAM CHRONIC DISEASE VISIT [facility] Start: 11-05-2022 End: 01-05-2023 Comprehensive metabolic 2000 panel - Serum or Plasma [facility] Work Phone: Comment on above: Expected: 11/05/2022, Expires: 3 Start: 11-05-2022 End: 01-05-2023 Lipid 1996 panel - Serum or Plasma [facility] Work Phone: Comment on above: Expected: 11/05/2022, Expires: 3 Start: 11-05-2022 End: 01-05-2023 Magnesium [Mass/volume] in Serum or Plasma [facility] Work Phone: Comment on above: Expected: 11/05/2022, Expires: 3 Start: 11-01-2022 ANNUAL PCP TEAM CHRONIC DISEASE VISIT ANNUAL PCP TEAM CHRONIC DISEASE VISIT [facility] Start: 06-05-2022 End: 06-19-2022 Influenza virus A and B RNA and SARS-CoV-2 (COVID-19) N gene panel - Respiratory specimen by ABBY with probe detection COVID WITH FLUA+B, ROUTINE Microbiology Routine Body aches Flu-like symptoms Expected: 06/05/2022, Expires: 06/19/2022 [facility] Work Phone: Comment on above: Expected: 06/05/2022, Expires: 2 Start: 03-22-2022 Influenza vaccination [facility] Start: 02-08-2022 End: 04-10-2022 CK CREATINE KINASE CK CREATINE KINASE Lab Routine NSTEMI (non-ST elevated myocardial infarction) (HCC) Hypertriglyceridemia Hyperlipidemia, mixed Expected: 02/08/2022, Expires: 04/10/2022 [facility] Work Phone: Comment on above: Expected: 02/08/2022, Expires: 2 Start: 02-08-2022 End: 04-10-2022 LIPID PANEL BASIC LIPID PANEL BASIC Lab Routine NSTEMI (non-ST elevated myocardial infarction) (HCC) Hypertriglyceridemia Hyperlipidemia, mixed Expected: 02/08/2022, Expires: 04/10/2022 [facility] Work Phone: Comment on above: Expected: 02/08/2022, Expires: 2 Start: 2021 PROSTATE CANCER SCREENING DISCUSSION PROSTATE CANCER SCREENING DISCUSSION [facility] Start: 2021 Prostate specific antigen measurement Prostate Cancer Screening Discussion [facility] Start: 11-15-2021 End: 01-15-2022 Comprehensive metabolic 2000 panel - Serum or Plasma COMP METABOLIC PANEL Lab Routine Function kidney decreased Expected: 11/15/2021, Expires: 01/15/2022 [facility] Work Phone: Comment on above: Expected: 11/15/2021, Expires: 2 Start: 11-09-2021 End: 01-09-2022 POTASSIUM BLD POTASSIUM BLD Lab STAT Serum potassium elevated Expected: 11/09/2021, Expires: 01/09/2022 [facility] Work Phone: Comment on above: Expected: 11/09/2021, Expires: 2 Start: 11-01-2021 End: 01-01-2022 CBC W Auto Differential panel - Blood CBC + DIFF Lab Routine Fatigue, unspecified type Expected: 11/01/2021, Expires: 01/01/2022 [facility] Work Phone: Comment on above: Expected: 11/01/2021, Expires: 2 Start: 11-01-2021 End: 01-01-2022 Comprehensive metabolic 2000 panel - Serum or Plasma COMP METABOLIC PANEL Lab Routine Hypertension, essential Renal insufficiency Expected: 11/01/2021, Expires: 01/01/2022 [facility] Work Phone: Comment on above: Expected: 11/01/2021, Expires: 2 Start: 11-01-2021 End: 01-01-2022 FERRITIN BLD FERRITIN BLD Lab Routine Fatigue, unspecified type Expected: 11/01/2021, Expires: 01/01/2022 [facility] Work Phone: Comment on above: Expected: 11/01/2021, Expires: 2 Start: 11-01-2021 End: 01-01-2022 Folate [Mass/volume] in Serum or Plasma FOLATE SERUM Lab Routine Fatigue, unspecified type Chronic alcohol abuse Expected: 11/01/2021, Expires: 01/01/2022 [facility] Work Phone: Comment on above: Expected: 11/01/2021, Expires: 2 Start: 11-01-2021 End: 01-01-2022 Hemoglobin A1c/Hemoglobin.total in Blood HGB A1C Lab Routine Elevated glucose Expected: 11/01/2021, Expires: 01/01/2022 [facility] Work Phone: Comment on above: Expected: 11/01/2021, Expires: 2 Start: 11-01-2021 End: 01-01-2022 IRON + TIBC IRON + TIBC Lab Routine Fatigue, unspecified type Expected: 11/01/2021, Expires: 01/01/2022 [facility] Work Phone: Comment on above: Expected: 11/01/2021, Expires: 2 Start: 11-01-2021 End: 01-01-2022 LIPID PANEL BASIC LIPID PANEL BASIC Lab Routine 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 Expected: 11/01/2021, Expires: 01/01/2022 [facility] Work Phone: Comment on above: Expected: 11/01/2021, Expires: 2 Start: 11-01-2021 End: 01-01-2022 Magnesium [Mass/volume] in Serum or Plasma MAGNESIUM BLD Lab Routine GERD without esophagitis Chronic alcohol abuse Expected: 11/01/2021, Expires: 01/01/2022 [facility] Work Phone: Comment on above: Expected: 11/01/2021, Expires: 2 Start: 11-01-2021 End: 11-01-2022 SARS-CoV-2 (COVID-19) RNA [Presence] in Respiratory specimen by ABBY with probe detection PRE-PROCEDURE & PRE-OPERATIVE COVID Microbiology Routine Chest pain, unspecified type Expected: 11/01/2021, Expires: 11/01/2022 [facility] Work Phone: Comment on above: Expected: 11/01/2021, Expires: 3 Start: 11-01-2021 End: 01-01-2022 Thyrotropin [Units/volume] in Serum or Plasma TSH BLD Lab Routine Fatigue, unspecified type Expected: 11/01/2021, Expires: 01/01/2022 [facility] Work Phone: Comment on above: Expected: 11/01/2021, Expires: 2 Start: 11-01-2021 End: 01-01-2022 VITAMIN B12 BLOOD VITAMIN B12 BLOOD Lab Routine Fatigue, unspecified type Expected: 11/01/2021, Expires: 01/01/2022 [facility] Work Phone: Comment on above: Expected: 11/01/2021, Expires: 2 Start: 05-17-2021 Pneumococcal Vaccine: 50+ (3 of 3 - PCV20 or PCV21) Pneumococcal Vaccine: 50+ (3 of 3 - PCV20 or PCV21) [facility] Start: 11-10-2019 SHINGRIX VACCINE (2 of 2) SHINGRIX VACCINE (2 of 2) [facility] Start: 12-06-2018 FECAL OCCULT BLOOD FECAL OCCULT BLOOD [facility] Start: 12-06-2018 Screening for malignant neoplasm of colon Fecal Occult Blood [facility] Start: 05-17-2017 PNEUMOCOCCAL (2 - PCV) PNEUMOCOCCAL (2 - PCV) [facility] Start: 05-17-2017 Pneumococcal vaccination Pneumococcal Vaccine (2 - PCV) [facility] Start: 12-30-2011 COLOGUARD (FIT-DNA) COLOGUARD (FIT-DNA) [facility] Start: 12-30-[address] COLONOGRAPHY [facility] Start: 12-30-2011 Screening for malignant neoplasm of colon [facility] Start: 12-30-2011 SIGMOIDOSCOPY SIGMOIDOSCOPY [facility] Start: 1985 Hepatitis B Vaccine (1 of 3 - 19+ 3-dose series) Hepatitis B Vaccine (1 of 3 - 19+ 3-dose series) [facility] Start: 1984 BP CONTROLLED (<130/80) BP CONTROLLED (<130/80) [facility] in Start: 1984 HEPATITIS C SCREENING HEPATITIS C SCREENING [facility] Start: 1984 HIV SCREENING HIV SCREENING [facility] Start: 1984 HIV screening HIV Screening [facility] Start: 12-30-1971 COVID-19 VACCINE (1) COVID-19 VACCINE (1) [facility] Start: 06-30-1967 COVID-19 VACCINE (#1) COVID-19 VACCINE (#1) [facility] Start: 1966 HEPATITIS B (1 of 3 - 3-dose series) HEPATITIS B (1 of 3 - 3-dose series) [facility] COVID & INFLUENZA A/ B & RSV PCR, ROUTINE COVID & INFLUENZA A/B & RSV PCR, ROUTINE Microbiology Routine Acute cough 07/13/2024 3:21 PM EST [facility] Work Phone: End: 11-01-2022 ECG COMPLETE ECG COMPLETE ECG Routine Chest pain, unspecified type 1 Occurrences starting 11/01/2021 until 11/01/2022 [facility] Work Phone: Comment on above: 1 Occurrences starting 11/01/2021 until 11/01/2022 Influenza virus A an d B RNA and SARS-CoV-2 (COVID-19) N gene panel - Respiratory specimen by ABBY with probe detection COVID WITH FLUA+B, ROUTINE Microbiology Routine Acute cough Ordered: 02/19/2022 [facility] Work Phone: Comment on above: Ordered: 02/19/2022 Influenza virus A an d B RNA and SARS-CoV-2 (COVID-19) N gene panel - Respiratory specimen by ABBY with probe detection COVID & INFLUENZA A/B NAAT, ROUTINE Microbiology Routine Influenza-like illness 04/08/2023 9:47 AM EDT [facility] Work Phone: Lipid 1996 panel - Serum or Plasma [facility] Measurement of respiratory function [facility] NM CARDIAC PERF STRESS/PHARM NM CARDIAC PERF STRESS/PHARM Radiology Routine Chest pain, unspecified type Encounter for screening for cardiovascular disorders Ordered: 11/01/2021 [facility] Work Phone: Comment on above: Ordered: 11/01/2021 Patient Education [facility] Work Phone: Patient referral [facility] Work Phone: POST VOID RESIDUAL POST VOID RES IDUAL Procedures Routine Elevated PSA BPH with obstruction/lower urinary tract symptoms Ordered: 09/28/2024 [facility] Work Phone: Comment on above: Ordered: 09/28/2024 Radionuclide imaging of perfusion of myocardium under exercise stress [facility] End: 01-25-2024 US ABD RIGHT UPPER QUADRANT US ABD RIGHT UPPER QUADRANT Radiology Routine Elevated liver enzymes 1 Occurrences starting 12/26/2022 until 01/25/2024 [facility] Work Phone: Comment on above: 1 Occurrences starting 12/26/2022 until 01/25/2024 End: 09-13-2025 US Abdomen RUQ US ABD RIGHT UPPER QUADRANT Radiology Routine Elevated alkaline phosphatase level 1 Occurrences starting 08/14/2024 until 09/13/2025 [facility] Work Phone: Comment on above: 1 Occurrences starting 08/14/2024 until 09/13/2025 End: 06-12-2025 US Carotid arteries - bilateral US CAROTID ARTERIES [facility] Lab Routine Bilateral carotid artery stenosis 1 Occurrences starting 06/12/2024 until 06/12/2025 [facility] Comment on above: 1 Occurrences starting 06/12/2024 until 06/12/2025 End: 11-01-2022 US CAROTID ARTERIES [facility] US CAROTID ARTERIES [facility] Lab Routine Bilateral carotid artery stenosis 1 Occurrences starting 11/01/2021 until 11/01/2022 [facility] Work Phone: Comment on above: 1 Occurrences starting 11/01/2021 until 11/01/2022 End: 11-06-2023 US CAROTID ARTERIES [facility] US CAROTID ARTERIES [facility] Lab Routine Bilateral carotid artery stenosis 1 Occurrences starting 11/05/2022 until 11/06/2023 [facility] Work Phone: Comment on above: 1 Occurrences starting 11/05/2022 until 11/06/[address] [facility] End: 09-10-2025 XR Knee - left 4 Views XR KNEE GENERAL 4V AP BOTH/PA BOTH/LAT/MERC LEFT Radiology Routine Acute pain of left knee 1 Occurrences starting 08/11/2024 until 09/10/2025 [facility] Work Phone: Comment on above: 1 Occurrences starting 08/11/2024 until 09/10/2025 XR Knee - left 4 Views XR KNEE G ENERAL 4V AP BOTH/PA BOTH/LAT/MERC LEFT Radiology Routine Acute pain of left knee 08/11/2024 2:35 PM EST [facility] Immunizations Immunization Date Immunization Notes Care Provider Bolivar ervin 06-12-2024 influenza, seasonal, injectable Keren Kwon [employer].AGRICULTURAL RESEARCH TECHNICIAN Work Phone: [facility] 06-12-2024 influenza virus vacc ine, unspecified formulation Keren Kwon [employer]OOK[employer] MAKER.AGRICULTURAL RESEARCH TECHNICIAN Work Phone: [facility] 05-14-2023 influenza, injectabl e, quadrivalent, preservative free HOSPITALITY AIDE-C Vani Owen HOSPITALITY AIDE Work Phone: [facility] 09-15-2019 zoster vaccine recombinant Keren Kwon [employer]OOK[employer] MAKER.AGRICULTURAL RESEARCH TECHNICIAN Work Phone: [facility] Work Phone: 06-01-2019 influenza, injectabl e, quadrivalent, preservative free Dr. Pema Yang Work Phone: [facility] 06-01-2019 influenza, seasonal, injectable [facility] 06-01-2019 influenza virus vacc ine, unspecified formulation Henry Morrow MD Work Phone: [facility] 08-28-2018 influenza, injectabl e, quadrivalent, contains preservative Keren Kwon [employer]OOKIE MAKER.AGRICULTURAL RESEARCH TECHNICIAN Work Phone: [facility] 06-24-2017 Influenza virus vaccine [facility] 07-10-2016 tetanus toxoid, redu adriana diphtheria toxoid, and acellular pertussis vaccine, adsorbed Keren Kwon [employer] MAKER.AGRICULTURAL RESEARCH TECHNICIAN Work Phone: [facility] 05-17-2016 pneumococcal polysaccharide vaccine, 23 valent Ziggy Mobley [employer].AGRICULTURAL RESEARCH TECHNICIAN Work Phone: [facility] 04-25-2015 pneumococcal conjuga te vaccine, 13 valent [facility] 05-20-2014 influenza, seasonal, injectable Keren Kwon [employer]OOK[employer] MAKER.AGRICULTURAL RESEARCH TECHNICIAN Work Phone: [facility] Work Phone: Payers Date Payer Category Payer Self-pay [id number] 2014 Medicaid [id number] 2014 Medicaid [facility] MEDICAID [id number] 2014-Present [phone] [address] [place] [address] Medicaid [id number] 2014 Medicaid [id number] 2014 Unknown [id number] Unknown [id number] Unknown [id number] Unknown [id number] Unknown [id number] Social History Date Type Detail Facility Start: 07-24-2016 End: 09-28-2024 Tobacco smoking status NHIS Ex-smoker [facility] Start: 12-30-1983 End: 05-30-2014 History of tobacco use Current smoker [facility] Start: 07-24-2016 End: 11-22-2022 Cigarettes smoked current (pack per day) - Reported 0.5 [facility] Start: 07-24-2016 End: 06-12-2024 Tobacco use and exposure User of smokeless tobacco [facility] End: 09-07-2024 History of tobacco use Chews Tobacco [facility] Start: 11-01-2021 End: 02-09-2025 Alcohol intake Current drinker of alcohol (finding) [facility] Start: 12-01-2019 End: 11-05-2022 History SDOH Alcohol Frequency 2 [facility] Start: 12-01-2019 End: 11-05-2022 History SDOH Alcohol Std Drinks 5 [facility] Start: 06-26-2016 History SDOH Alcohol Comment Binge drinking at times, worse with stress. [facility] Start: 12-01-2019 End: 11-05-2022 History SDOH Social Connections Phone 4 [facility] Start: 12-01-2019 End: 11-05-2022 History SDOH Social Connections Get Together 1 [facility] Start: 12-01-2019 End: 11-05-2022 History SDOH Social Connections Jew 3 [facility] Start: 12-01-2019 Education 21 [facility] Start: 04-02-2014 End: 06-05-2022 Tobacco Comment Very few, very infrequently. Father smoked in childhood home. [facility] Start: 1965 Sex Assigned At Male [facility] Start: 11-08-2021 End: 10-14-2023 Tobacco smoking status ARIS Unknown if ever smoked [facility] Start: 05-31-2019 Occasional [facility] Start: 05-31-2019 With Family [facility] Start: 10-28-2021 End: 02-20-2022 Exposure to SARS-CoV-2 (event) Not sure [facility] Start: 02-20-2022 End: 11-05-2022 History SDOH Alcohol Frequency 98 [facility] Start: 12-30-1983 End: 05-30-2014 History of tobacco use Cigarette Smoker [facility] Start: 05-26-2022 End: 06-05-2022 Exposure to SARS-CoV-2 (event) Yes [facility] Start: 03-14-2017 Marijuana [facility] Start: 03-14-2017 Non-smoker [facility] Start: 11-05-2022 End: 11-22-2022 Social connection and isolation panel [facility] Do you belong to any clubs or organizations such as tenriism groups, unions, fraternal or athletic groups, or school groups? No [facility] Are you now , , , , never or living with a partner? Refused [facility] How often to you hav e a drink containing alcohol? 4 or more times a week [facility] How many standard dr inks containing alcohol do you have on a typical day? 3 or 4 [facility] How often do you hav e 6 or more drinks on 1 occasion? Weekly [facility] How hard is it for y ou to pay for the very basics like food, housing, medical care, and heating Not very hard [facility] Adult Depression Screening Assessment 2 [facility] Do you feel stress - tense, restless, nervous, or anxious, or unable to sleep at night because your mind is troubled all the time - these days [OSQ] Rather much [facility] (I/We) worried wheth er (my/our) food would run out before (I/we) got money to buy more. Sometimes true [facility] Start: 10-24-2018 Gender identity Identifies as male gender (finding) [facility] Start: 10-24-2018 Sexual orientation Heterosexual (finding) [facility] Are you now , , , , never or living with a partner? [facility] How hard is it for y ou to pay for the very basics like food, housing, medical care, and heating Hard [facility] (I/We) worried wheth er (my/our) food would run out before (I/we) got money to buy more. Never true [facility] How often to you hav e a drink containing alcohol? 2-4 times a month [facility] How often do you hav e 6 or more drinks on 1 occasion? Monthly [facility] How hard is it for y ou to pay for the very basics like food, housing, medical care, and heating Very hard [facility] Do you feel stress - tense, restless, nervous, or anxious, or unable to sleep at night because your mind is troubled all the time - these days [OSQ] Very much [facility] Start: 09-28-2024 Tobacco use and exposure Former smokeless tobacco user [facility] Goals Date Patient Goal Desired Activity /State Functional Status Date Assessment Result Facility 05-16-2023 Functional status Ambulates [facility] Work Phone: 02-26-2015 Are you deaf, or do you have serious difficulty hearing No 02/26/2015 2:13 PM Nicole Harley LPN No [facility] 02-26-2015 Are you blind, or do you have serious difficulty seeing, even when wearing glasses No 02/26/2015 2:13 PM Nicole Harley LPN No [facility] 02-26-2015 Do you have serious difficulty walking or climbing stairs No 02/26/2015 2:13 PM Nicole Harley LPN No [facility] 02-26-2015 Do you have difficul ty dressing or bathing No 02/26/2015 2:13 PM Nicole Harley LPN No [facility] 02-26-2015 Because of a physica l, mental, or emotional condition, do you have difficulty doing errands alone such as visiting a physician's office or shopping No 02/26/2015 2:13 PM EDNicole Daniel LPN No [facility] Mental Status Date Assessment Result Facility 05-16-2023 Cognitive function Voice/Name [facility] Work Phone: 01-02-2023 Cognitive function Voice/Name [facility] Work Phone: 11-08-2021 Cognitive function Level Of Cons ciousness Awake;Alert;Appropriate;Fol lows Commands [facility] Work Phone: 02-26-2015 Because of a physica l, mental, or emotional condition, do you have serious difficulty concentrating, remembering, or making decisions No 02/26/2015 2:13 PM EDT Nicole Anglin LPN No [facility] Clinical Notes 11-01-2021 to 02-09-2025 Gary Hutton PA - 02/09/2025 2:32 PM EDTTelephone Encounter - Sheela Carrillo RN - 02/01/2025 2:38 PM EDTTelephone Encounter - Sheela Carrillo RN - 02/01/2025 2:38 PM EDTPatient Instructions Note Date & Type Note Facility 02-09-2025 Note HNO ID: [id number] Author: GARY HUTTON PA Service: ? Author Type: Physician Investor Relations Associate Type: Progress Notes Filed: 02/09/2025 14:34 Note Text: URGENT CARE [facility] Bethany Montalvo is a 59 year [...] No recent use of Pepto-Bismol. - Taking pdqt-ovp-coxrfed cold and flu medication. - Vomiting early [...] out serious conditions. and Recording using ambient Userstorylab software for draft documentation of the visit was discussed with the patient/authorized phlebotomy services representative; all questions welcomed and answered. Patient/authorized phlebotomy services representative agreed to proceed Disposition The patient was other (comment) (sent to er). Procedures [facility] 02-09-2025 History of Present illness Narrative URGENT [...] No recent use of Pepto-Bismol. - Taking qbcq-dzp-wvoeaym cold and flu medication. - Vomiting early [...] rule out serious conditions. and Recording using Pinion.gg software for draft documentation of the visit was discussed with the patient/authorized phlebotomy services representative; all questions welcomed and answered. Patient/authorized phlebotomy services representative agreed to proceed Disposition The patient was other (comment) (sent to er). Procedures documented in this encounter [facility] 02-01-2025 Telephone encounter Note The patient [...] once daily as needed. Sheela Carrillo RN [facility] 02-01-2025 Miscellaneous Notes The patient has [...] Sheela Carrillo RN documented in this encounter [facility] 01-19-2025 Telephone encounter Note The patient [...] two times a day. Sheela Carrillo RN [facility] 01-19-2025 Miscellaneous Notes The patient has [...] Sheela Carrillo RN documented in this encounter [facility] 12-22-2024 Telephone encounter Note Prescription Refill [...] Adeline Goss December 22, 2024 9:24 AM [facility] 12-22-2024 Miscellaneous Notes Prescription Refill Information [...] 2024 9:24 AM documented in this encounter [facility] 12-11-2024 Note HNO ID: [id number] Author: KEREN KWON APRN.AGRICULTURAL RESEARCH TECHNICIAN Service: ? Author Type: Nurse Practitioner Type: [...] Age of Onset Psychiatry Mother Heart Mother [place] 53 Heart Father [place] 51 Colon Cancer Father other (Heart stent) [...] fe (more content not included)... [facility] 11-24-2024 Telephone encounter Note Prescription Refill Information [...] Adeline Goss November 24, 2024 9:09 AM [facility] 11-24-2024 Miscellaneous Notes Prescription Refill Information [...] mouth two times a day. Adeline Love [facility] November 24, 2024 9:09 AM documented in this encounter [facility] 10-07-2024 Note HNO ID: [id number] Author: JUAREZ HERNÁNDEZ, DO Service: ? Author Type: Physician Type: Progress Notes Filed: 10/07/2024 14:09 Note Text: SERVICE DATE: October 07, 2024 PCP: Keren Kwon APRN.AGRICULTURAL RESEARCH TECHNICIAN Subjective Patient ID: Bethany is a 58 [...] Age of Onset Psychiatry Mother Heart Mother [place] 53 Heart Father [place] 51 Colon Cancer Father other (Heart stent) [...] medical (more content not included)... [facility] 10-07-2024 History of Present illness Narrative Associated Order(s): Additional Injections Post-Procedure Diagnose(s): Medial epicondylitis, right elbow Images from the original note were not included. SERVICE DATE: October 07, 2024 PCP: Keren Kwon APRN.AGRICULTURAL RESEARCH TECHNICIAN Subjective Patient ID: Bethany is a 58 [...] Age of Onset Psychiatry Mother Heart Mother [place] 53 Heart Father [place] 51 Colon Cancer Father other (Heart stent) [...] these instructions. Informed Consent Consent Obtained: Verbal Timber Protocol SIGN IN TIME OUT 4 inch [...] X-ray on 07/09/2024. documented in this encounter [facility] 10-07-2024 Note HNO ID: [id number] Author: BETHANY OWENS MA Service: ? Author Type: Bolt Maker Type: Progress Notes Filed: 10/07/2024 14:09 Note [...] the home. X-ray on 07/09/2024. [facility] 10-02-2024 Telephone encounter Note The patient has [...] Hanna LPN October 02, 2024 9:08 AM [facility] 10-02-2024 Miscellaneous Notes The patient has [...] 2024 9:08 AM documented in this encounter [facility] 09-29-2024 Telephone encounter Note Prescription Refill [...] Adeline Goss September 29, 2024 8:29 AM [facility] 09-29-2024 Miscellaneous Notes Prescription Refill Information [...] 2024 8:29 AM documented in this encounter [facility] 09-28-2024 Instructions Keren Kwon APRN.CHRISTIANA - 09/28/2024 4:10 PM EDT Increase the buspar to 7.5 mg three times daily. Increase the trazodone to 100 mg at bedtime. Schedule with ortho. Keep appt with GI. Recheck in 3 months. documented in this encounter [facility] 09-28-2024 Note HNO ID: [id number] Author: KEREN KWON APRN.CHRISTIANA Service: ? Author [...] Age of Onset Psychiatry Mother Heart Mother [place] 53 Heart Father [place] 51 Colon Cancer Father other (Heart stent) [...] abnormalities. (more content not included)... [facility] 09-28-2024 History of Present illness Narrative This [...] Age of Onset Psychiatry Mother Heart Mother [place] 53 Heart Father [place] 51 Colon Cancer Father other (Heart stent) [...] with the plan. documented in this encounter [facility] 09-28-2024 History of Present illness Narrative Images from the original note were not included. [facility] PSA/PROSTATE EVALUATION HISTORY AND PHYSICAL EXAM PATIENT: Bethany Montalvo (58 year old) PCP: Keren Kwon APRN.CNP REFERRING Provider: Keren Kwon APRN.C* Consultation requested by Dr. Keren Kwon [address] [facility] [id number] for an opinion regarding Elevated PSA and [...] Age of Onset Psychiatry Mother Heart Mother [place] 53 Heart Father [place] 51 Colon Cancer Father other (Heart stent) [...] spray paint and glue briefly, ages 7-9. [facility] in mid to late teens. TO [...] was discussed with the patient or authorized phlebotomy services representative. The patient or authorized phlebotomy services representative has agreed to proceed with the [...] Chris Devlin DNP, CHRISTIANA Department of Urology [facility] Verified name and date of . [...] Appointment with Chris. documented in this encounter [facility] 09-28-2024 Note HNO ID: [id number] Author: CHRIS DEVLIN APRN.MARLY VILLEDA Service: ? Author Type: Nurse Practitioner Type: Progress Notes Filed: 09/28/2024 13:06 Note Text: [facility] PSA/PROSTATE EVALUATION HISTORY AND PHYSICAL EXAM PATIENT: Bethany Montalvo (58 year old) PCP: Keren Kwon APRN.AGRICULTURAL RESEARCH TECHNICIAN REFERRING Provider: Keren Kwon APRN.C* Consultation requested by Dr. Keren Kwon [address] [facility] [address] for an opinion regarding Elevated PSA and [...] HISTORY (more content not included)... [facility] 09-28-2024 Instructions Chris Devlin APRN.MARLY VILLEDA - [...] is not normal. Having said that, the [facility] uses a lower cut-off of 2.59, [...] Chris Devlin DNP, CHRISTIANA Department of Urology [facility] documented in this encounter [facility] 09-28-2024 Note HNO ID: [id number] Author: LINDSAY FONSECA LPN Service: ? Author [...] well. Plan: Appointment with Chris. [facility] 09-25-2024 Telephone encounter Note Noted. Chris Devlin APRN.MARLY VILLEDA [facility] Work Phone: 09-25-2024 Miscellaneous Notes Noted. Chris Devlin APRN.CNP, DNP Called patient regarding appointment on Saturday due to provider having a meeting between [phone]. Patient offered times to come into clinic and will come in at 1230 for appointment. Lindsay Fonseca LPN documented in this encounter [facility] 09-25-2024 Telephone encounter Note Called patient regarding appointment on Saturday due to provider having a meeting between [phone]. Patient offered times to come into clinic and will come in at 1230 for appointment. Lindsay Fonseca LPN [facility] 08-31-2024 Instructions Keren Kwon APRN.CNP - 08/31/2024 4:16 PM EST Start taking 25mg of Carvedilol Make an appointment with counseling center at [place] Follow up in 4 weeks or sooner as needed documented in this encounter [facility] 08-31-2024 Telephone encounter Note Pt notified of results/provider instructions at [facility] today. Donna Richey LPN [facility] 08-31-2024 Miscellaneous Notes Pt notified of [...] evaluation of this. documented in this encounter [facility] 08-31-2024 Note HNO ID: [id number] Author: KEREN KWON APRN.CHRISTIANA Service: ? Author [...] with psychiatric at the counseling center at [place] Is interested and agreeable to following with a counselor again at [place]. Left knee pain has been a lot [...] Age of Onset Psychiatry Mother Heart Mother [place] 53 Heart Father [place] 51 Colon Cancer Father Social History Tobacco [...] negativ (more content not included)... [facility] 08-31-2024 History of Present illness Narrative This [...] with psychiatric at the counseling center at [place] Is interested and agreeable to following with a counselor again at [place]. Left knee pain has been a lot [...] Age of Onset Psychiatry Mother Heart Mother [place] 53 Heart Father [place] 51 Colon Cancer Father Social History Tobacco [...] spray paint and glue briefly, ages 7-9. [facility] in mid to late teens. TO [...] with the plan. documented in this encounter [facility] 08-28-2024 Telephone encounter Note Phoned pt, no answer, unable to leave message d/t voicemail not set up yet. Donna Richey LPN [facility] 08-28-2024 Telephone encounter Note Can please let patient know that I received his ultrasound results. It was consistent with fatty liver. However, it also is showing that his liver and spleen are enlarged. I would like to have him see gastroenterology for further evaluation of this. [facility] 08-27-2024 History of Present illness Narrative [...] PATIENT PRESENTS WITH AN IMPLANTABLE OR ATTACHED ENGINE LATHE OPERATOR: No RADIOLOGY DEPARTMENT: Ultrasound PERIPHERAL IV DATA: Not applicable SIGNED BY: Trixie Palencia RDMS August 27, 2024 2:17 PM documented in this encounter [facility] 08-27-2024 Miscellaneous Notes Ultrasound of the liver shows fatty liver. Spleen and liver are slightly enlarged. Please follow diet low in saturated fat by eliminating fried foods and choosing only lean meat/skim dairy products. Also, avoid excessive use of ixuc-rdd-brvrevu products that contain ibuprofen, acetaminophen, naproxen, or alcohol. documented in this encounter [facility] 08-27-2024 Note HNO ID: [id number] Author: TRIXIE PALENCIA RDMS Service: ? Author Type: Client Associate Type: Progress Notes Filed: 08/27/2024 14:17 Note [...] PATIENT PRESENTS WITH AN IMPLANTABLE OR ATTACHED ENGINE LATHE OPERATOR: No RADIOLOGY DEPARTMENT: Ultrasound PERIPHERAL IV DATA: Not applicable SIGNED BY: Trixie Palencia RDMS August 27, 2024 2:17 PM [facility] 08-27-2024 Progress note Formatting of t his note might be different from the original. Ultrasound of the liver shows fatty liver. Spleen and liver are slightly enlarged. Please follow diet low in saturated fat by eliminating fried foods and choosing only lean meat/skim dairy products. Also, avoid excessive use of ggph-ald-tbxczfi products that contain ibuprofen, acetaminophen, naproxen, or alcohol. [facility] 08-24-2024 Instructions Keren Kwon APRN.CNP - 08/24/2024 12:13 PM EST Increase the carvedilol to 12.5 mg twice daily. Restart the lisinopril 10 mg daily. Recheck in 1 week. documented in this encounter [facility] 08-24-2024 Note HNO ID: [id number] Author: KEREN KWON APRN.AGRICULTURAL RESEARCH TECHNICIAN Service: ? Author Type: Nurse Practitioner Type: [...] Age of Onset Psychiatry Mother Heart Mother [place] 53 Heart Father [place] 51 Colon Cancer Father Social History Tobacco [...] improv (more content not included)... [facility] 08-24-2024 History of Present illness Narrative This [...] Age of Onset Psychiatry Mother Heart Mother [place] 53 Heart Father [place] 51 Colon Cancer Father Social History Tobacco [...] Keren Kwon APRN.CHRISTIANA documented in this encounter [facility] 08-21-2024 Telephone encounter Note Pt notified. He verbalized understanding. Donna Richey LPN [facility] 08-21-2024 Miscellaneous Notes Pt notified. He [...] Keren Kwon APRN.CHRISTIANA documented in this encounter [facility] 08-21-2024 Telephone encounter Note I sent in another script for the prednisone. If using a lot of tylenol that could also lead to an elevation in the liver enzymes. However, we should still get the imaging. Please keep appt for Saturday so we can recheck the knee. [facility] 08-20-2024 Telephone encounter Note Called and [...] completed them at least 3 days ago. [facility] 08-20-2024 Miscellaneous Notes Called and scheduled [...] 2024 1:14 PM documented in this encounter [facility] 08-20-2024 Telephone encounter Note Attempted to reach pt by phone and no voicemail set up. Try later. Jaert Love LPN [facility] 08-19-2024 Telephone encounter Note There should be a couple days left of the medication. If the symptoms are returning, we should have him back in because we are likely going to need to move forward with getting an MRI. Keren Kwon APRN.AGRICULTURAL RESEARCH TECHNICIAN [facility] 08-19-2024 Telephone encounter Note MC message sent. Donna Richey LPN [facility] 08-19-2024 Telephone encounter Note Prescription Refill [...] Richey LPN August 19, 2024 1:14 PM [facility] 08-14-2024 Telephone encounter Note TC to pt, no answer, unable to leave message. [facility] 08-14-2024 Telephone encounter Note Can please let [...] the knee feeling since on the prednisone? [facility] 08-12-2024 Telephone encounter Note Pt notified of results/provider response. He verbalized understanding. Please assist pt with scheduling Urology appt. Donna Richey LPN [facility] 08-12-2024 Telephone encounter Note Can please let [...] tests and the xray results. Keren Kwon APRN.AGRICULTURAL RESEARCH TECHNICIAN [facility] 08-11-2024 History of Present illness Narrative [...] PATIENT PRESENTS WITH AN IMPLANTABLE OR ATTACHED ENGINE LATHE OPERATOR: No RADIOLOGY DEPARTMENT: General X-ray: Exam(s) Completed: Lower Extremity X-Ray(s): Knee, AP / Lat / Tunne / Merchant Left PERIPHERAL IV DATA: Not applicable SIGNED BY: RT Satnam(Herman) August 11, 2024 2:10 PM documented in this encounter [facility] 08-11-2024 Note HNO ID: [id number] Author: WENDY ROBLES RT(R) Service: ? Author Type: Client Associate Type: Progress Notes Filed: 08/11/2024 14:34 Note [...] PATIENT PRESENTS WITH AN IMPLANTABLE OR ATTACHED ENGINE LATHE OPERATOR: No RADIOLOGY DEPARTMENT: General X-ray: Exam(s) Completed: Lower Extremity X-Ray(s): Knee, AP / Lat / Tunne / Merchant Left PERIPHERAL IV DATA: Not applicable SIGNED BY: Wendy Robles, RT(R) August 11, 2024 2:10 PM [facility] 08-11-2024 Instructions Keren Kwon APRN.CHRISTIANA - 08/11/2024 [...] on this medication. documented in this encounter [facility] 08-11-2024 Note HNO ID: [id number] Author: KEREN KWON APRN.CHRISTIANA Service: ? Author Type: Nurse Practitioner Type: Progress Notes Filed: 08/11/2024 14:07 Note Text: This is a 58 year old male who presents today with: Patient presents with: ER F/U: [facility] ER f/u 07/23/24 dx: L knee pain HISTORY OF PRESENT ILLNESS: Bethany Montalvo is a 58 year old male. Patient presents with: ER F/U: [facility] ER f/u 07/23/24 dx: L knee pain [...] Age of Onset Psychiatry Mother Heart Mother [place] 53 Heart Father [place] 51 Colon Cancer Father Social History Tobacco [...] guarding (more content not included)... [facility] 08-11-2024 History of Present illness Narrative This is a 58 year old male who presents today with: Patient presents with: ER F/U: [facility] ER f/u 07/23/24 dx: L knee pain HISTORY OF PRESENT ILLNESS: Bethany Montalvo is a 58 year old male. Patient presents with: ER F/U: [facility] ER f/u 07/23/24 dx: L knee pain [...] Age of Onset Psychiatry Mother Heart Mother [place] 53 Heart Father [place] 51 Colon Cancer Father Social History Tobacco [...] spray paint and glue briefly, ages 7-9. [facility] in mid to late teens. TO [...] as needed for worsening/no improvement. Keren Kwon APRN.AGRICULTURAL RESEARCH TECHNICIAN documented in this encounter [facility] 08-07-2024 Telephone encounter Note Pt notified. He verbalized understanding. Donna Richey LPN [facility] 08-07-2024 Miscellaneous Notes Pt notified. He [...] Orders are in. documented in this encounter [facility] 08-07-2024 Telephone encounter Note Can please [...] plants. 5. Limit alcohol. Orders are in. [facility] 07-21-2024 Telephone encounter Note The following approved medication requests have been transmitted electronically. Requested Prescriptions Pending Prescriptions Disp Refills busPIRone (BUSPAR) 5 mg tablet 90 tablet 1 Sig: Take 1 tablet by mouth three times a day as needed. Kathe Pierre APRN.CNP [facility] 07-21-2024 Miscellaneous Notes The following approved [...] you. Melyssa Ruiz. documented in this encounter [facility] 07-21-2024 Telephone encounter Note Change of pharmacy [facility] 07-21-2024 Telephone encounter Note Patient has [...] found Please advise. Thank you. Melyssa Ruiz. [facility] 07-13-2024 History of Present illness Narrative [...] PATIENT PRESENTS WITH AN IMPLANTABLE OR ATTACHED ENGINE LATHE OPERATOR: No RADIOLOGY DEPARTMENT: General X-ray: Exam(s) Completed: Chest X-Ray PERIPHERAL IV DATA: Not applicable SIGNED BY: PAOLA Andino) July 13, 2024 2:00 PM documented in this encounter [facility] 07-13-2024 Note HNO ID: [id number] Author: BULMARO PAPPAS RT(Herman) Service: Radiology Author [...] PATIENT PRESENTS WITH AN IMPLANTABLE OR ATTACHED ENGINE LATHE OPERATOR: No RADIOLOGY DEPARTMENT: General X-ray: Exam(s) Completed: Chest X-Ray PERIPHERAL IV DATA: Not applicable SIGNED BY: Bulmaro Pappas, RT(R) July 13, 2024 2:00 PM [facility] 07-13-2024 Note HNO ID: [id number] Author: ROSA WADE APRN.CHRISTIANA Service: ? Author Type: Nurse Practitioner Type: Progress Notes Filed: 07/13/2024 14:36 Note Text: This note was created using [employer] Element[employer]. Subjective Bethany Montalvo is a 58 year [...] seem more viral in origin and recommended pgos-lcu-eqzzkrb cough and cold medication and follow-up with PCP. - XR CHEST 2V FRONTAL/LAT - COVID AND INFLUENZA A/B AND RSV PCR, ROUTINE Rosa Wade APRN.CHRISTIANA [facility] 12-23-2024 History of Present illness Narrative This note was created using Xcerionter. Subjective Bethany Montalvo is a 58 year [...] seem more viral in origin and recommended htkk-xhv-iozeuzv cough and cold medication and follow-up with PCP. - XR CHEST 2V FRONTAL/LAT - COVID & INFLUENZA A/B & RSV PCR, ROUTINE Rosa Wade APRN.CHRISTIANA documented in this encounter [facility] 07-13-2024 Note HNO ID: [id number] Author: ?, ?, ? Service: ? Author Type: ? Type: Progress Notes Filed: 07/13/2024 13:34 Note Text: POPULATION HEALTH NAVIGATION OUTREACH Action/[facility] [place] Support: Called pt to schedule an appt [...] July 13, 2024 1:34 PM [facility] 07-13-2024 History of Present illness Narrative POPULATION HEALTH NAVIGATION OUTREACH Action/[facility] Support: Called pt to schedule an [...] 2024 1:34 PM documented in this encounter [facility] 07-13-2024 Note Patient Outreach (NE TNAV) BETHANY MONTALVO ([id number]) 1965 M Date Time Provider Department 07/13/24 NO PCP NETNAV During your visit today, we recorded the following information about you: Chico Gonzalez 07/13/2024 1:34 PM Signed POPULATION HEALTH NAVIGATION OUTREACH Action/[facility] Support: Called pt to schedule an [...] Date Reviewed: 07/09/2024 Reviewed by: Desmond Duncan APRN.AGRICULTURAL RESEARCH TECHNICIAN - Fully Assessed Prescriptions as of 07/13/2024 [...] CHICO GONZALEZ Prachi on 07/13/24 [facility] 07-12-2024 Telephone encounter Note Pt was notified of the results. Pt verbalized understanding. Ariela Avelar MA [facility] 07-12-2024 Miscellaneous Notes Pt was notified [...] with orthopedics if symptoms persist. Desmond Duncan APRN.AGRICULTURAL RESEARCH TECHNICIAN documented in this encounter [facility] 07-10-2024 Telephone encounter Note Unable to reach pt on 2nd attempt due to no VM being set up. Sera Claire LPN [facility] 07-10-2024 Telephone encounter Note Pharmacy just filled last script. This would be for future. [facility] 07-10-2024 Miscellaneous Notes Pharmacy just filled [...] 2024 11:52 AM documented in this encounter [facility] 07-10-2024 Telephone encounter Note Prescription Refill [...] Estrella Goss July 10, 2024 11:52 AM [facility] 07-09-2024 Telephone encounter Note TC no answer. Unable to leave VM d/t mailbox not set up. Please try again later. ERIC Capone [facility] 07-09-2024 Telephone encounter Note Please inform patient that x-ray is normal. Follow-up with orthopedics if symptoms persist. Desmond Duncan APRN.CNP [facility] 07-09-2024 History of Present illness Narrative [...] PATIENT PRESENTS WITH AN IMPLANTABLE OR ATTACHED ENGINE LATHE OPERATOR: No RADIOLOGY DEPARTMENT: General X-ray: Exam(s) Completed: Upper Extremity X-Ray(s): Elbow, right PERIPHERAL IV DATA: Not applicable SIGNED BY: RT Satnam(Herman) July 09, 2024 5:07 PM documented in this encounter [facility] 07-09-2024 Note HNO ID: [id number] Author: WENDY ROBLES RT(Herman) Service: ? Author Type: Client Associate Type: Progress Notes Filed: 07/09/2024 17:16 Note [...] PATIENT PRESENTS WITH AN IMPLANTABLE OR ATTACHED ENGINE LATHE OPERATOR: No RADIOLOGY DEPARTMENT: General X-ray: Exam(s) Completed: Upper Extremity X-Ray(s): Elbow, right PERIPHERAL IV DATA: Not applicable SIGNED BY: RT Satnam(R) July 09, 2024 5:07 PM [facility] 07-09-2024 Note HNO ID: [id number] Author: DESMOND DUNCAN APRN.AGRICULTURAL RESEARCH TECHNICIAN Service: ? Author Type: Nurse Practitioner Type: Progress Notes Filed: 07/09/2024 18:04 Note Text: Subjective HPI Nontoxic-appearing male presents urgent care chief complaint sore throat body aches chills headache cough. Duration of symptoms few days. Associated symptoms listed above. Additionally has had right elbow injury for about 1 week. States he struck his elbow on a rail at work. Presents today for evaluation. Awisl-[id number]. Denies any other injuries. OTC medications none [...] Age of Onset Psychiatry Mother Heart Mother [place] 53 Heart Father [place] 51 Colon Cancer Father Social History Tobacco [...] effort (more content not included)... [facility] 07-09-2024 History of Present illness Narrative Subjective HPI Nontoxic-appearing male presents urgent care chief complaint sore throat body aches chills headache cough. Duration of symptoms few days. Associated symptoms listed above. Additionally has had right elbow injury for about 1 week. States he struck his elbow on a rail at work. Presents today for evaluation. Krpnf-wsfk-rzioijaf. Denies any other injuries. OTC medications none [...] Age of Onset Psychiatry Mother Heart Mother [place] 53 Heart Father [place] 51 Colon Cancer Father Social History Tobacco [...] of care. This note was generated using WorldTV software. It may contain errors in wording, punctuation, or spelling. Desmond Duncan APRN.CHRISTIANA documented in this encounter [facility] 06-23-2024 Telephone encounter Note Faxed as requested. Jaret Paulino MA [facility] 06-23-2024 Miscellaneous Notes Faxed as requested. Jaret Paulino MA Please fax GI consult to Dr. Lovell at [facility]. Thank you, Alma Delia Garza APRN.AGRICULTURAL RESEARCH TECHNICIAN documented in this encounter [facility] 06-22-2024 Telephone encounter Note Please fax GI consult to Dr. Lovell at [facility]. Thank you, Alma Delia Garza APRN.AGRICULTURAL RESEARCH TECHNICIAN [facility] Work Phone: 06-22-2024 Nurse Note REVIEW [...] N/A Last Colonoscopy: 01/12/2019 Leanna Wilburn RN [facility] 06-22-2024 Nurse Note REVIEW OF SYSTEMS: General: [...] Leanna Wilburn RN documented in this encounter [facility] 06-22-2024 History of Present illness Narrative HISTORY AND PHYSICAL Bethany Montalvo : 1965 REFERRING PHYSICIAN: Keren Prescott [facility] [address] CHIEF COMPLAINT: Patient presents with: Consult: colonoscopy [...] & colonoscopy 12/[address] Payton at [facility]. Sedation: MAC EGD Impression: -Normal examined jejunum [...] Age of Onset Psychiatry Mother Heart Mother [place] 53 Heart Father [place] 51 Colon Cancer Father Social History Tobacco [...] entered by the nurse and reviewed by or Nursing Notes: Leanna Wilburn RN 06/22/2024 4:06 [...] chooses MAC anesthesia. We discussed traveling to [place] for this. He states he wants to stay local. I discussed the risk of under sedation in the ASC d/t his alcohol use and he declined stating he wants to be completely out. I will fax a referral to [facility], if it doesn't work out then we will plan for [facility] in [place]. He is agreeable. Bethany was counseled that [...] Delia Garza APRN.CHRISTIANA documented in this encounter [facility] 06-22-2024 Note HNO ID: [id number] Author: ALMA DELIA GARZA APRN.CNP Service: ? Author Type: Nurse Practitioner Type: Progress Notes Filed: 06/22/2024 16:31 Note Text: HISTORY AND PHYSICAL Bethany Montalvo : 1965 REFERRING PHYSICIAN: Keren Kwon [address] [facility] [address] CHIEF COMPLAINT: Patient presents with: Consult: colonoscopy [...] AND colonoscopy 12/[address] Payton at [facility]. Sedation: MAC EGD Impression: -Normal examined jejunum [...] Age of Onset Psychiatry Mother Heart Mother [place] 53 Heart Father [place] 51 Colon Cancer Father Social History Tobacco Use Smoking status: Former Current packs/day: 0.00 Average packs/day: 0.5 packs/day for 30.4 years (15.2 ttl pk-yrs) Types: Cigarettes Start date: 12/30/1983 Quit date: 05/30/2014 Years since quittin (more content not included)... [facility] 06-12-2024 Instructions Keren Kwon APRN.CNP - 06/12/2024 3:29 PM EST Get labs. Schedule w/ gen surgery. Schedule carotid ultrasound. Recheck in 6 months. documented in this encounter [facility] 06-12-2024 Note HNO ID: [id number] Author: KEREN KWON APRN.CNP Service: ? 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 [employer] in mid to late teens. TO [...] TRIVALENT (more content not included)... [facility] 06-12-2024 History of Present illness Narrative This [...] CAD: Denies any chest pain/SOB. Following with [facility]. Last appt in September. GERD: [...] Age of Onset Psychiatry Mother Heart Mother [place] 53 Heart Father [place] 51 Colon Cancer Father Social History Tobacco [...] as needed for worsening/no improvement. Keren Kwon APRN.AGRICULTURAL RESEARCH TECHNICIAN documented in this encounter [facility] 05-15-2023 Progress note Note Date/Time May 15, 2023 11:24am [facility] Medical Records Department [address] [place] [address] Progress Note - Hospitalist 05/15/23 1120 MR#: [id number] Acct: [id number] Name: BETHANY MONTALVO Rep #:[id number] : 1965 57 From: Shakeel rendon MD PCP: Keren Kwon HOSPITALITY AIDE-C Status:ADM I N Location: [place] [address] Subjective Subjective CIWA score of 2 this [...] (MDRD) Non-Af 74, BUN/Creatinine Ratio 7.3 L, Bhcfynk97, Calcium 7.7 L, Total Bilirubin 1.60 H, [...] DVT: Ambulation Charges/Coding Visit Charges Inpatient E&M: 08661 Subs Hosp L2 05/15/23 1124 <Electronically signed by Shakeel Valera MD> Cosigner Signature (if applicable): CC: ~ Signed [facility] Work Phone: 1(915) 658-629910-24-2023 Progress note Author Shakeel Valera [facility] May 14, 2023 10:17am Note Date/Time May 14, 2023 1 0:17am [facility] Medical Records Department [address] [place] [address] Progress Note - Hospitalist 05/14/23 1009 MR#: [id number] Acct: [id number] Name: BETHANY MONTALVO Rep #:[id number] : 1965 57 From: Shakeel rendon MD PCP: Keren Kwon NP-C Status:ADM I N [place] [facility] [place]-5 Subjective Subjective Resting comfortably, no issues overnight. [...] 72.9 H, Lymph % (Auto) 18.4 L, [place] % (Auto) 7.6, Eos % (Auto) 0.3, [...] Clarity Clear, Urine pH 5.0, Ur Specific [place] 1.020, Urine Protein 100 H, Urine Glucose [...] % (Auto) 55.9, Lymph % (Auto) 34.1, [place] % (Auto) 7.6, Eos % (Auto) 1.8, [...] DVT: Ambulation Charges/Coding Visit Charges Inpatient E&M: 50991 Subs Hosp L2 05/14/23 1017 <Electronically signed by Shakeel Valera MD> Cosigner Signature (if applicable): CC: ~ Signed [facility] Work Phone: 1(228) 786-790410-23-2023 History and physical note Author Lorena Bennett [facility] May 13, 2023 8:28pm Note Date/Time May 13, 2023 4 :17pm [facility] Medical Records Department [address] [place] [address] H&P Exam - Hospitalist 05/13/23 1615 MR#: [id number] Acct: [id number] Name: BETHANY MONTALVO Rep #:[id number] : 1965 57 From: Lorena Bennett DO PCP: XUAN Armendariz Status:ADM I N [place] [facility] CU553-5 HPI - General General Date of Admission: 05/13/23 Date of Service: 05/13/23 Chief Complaint: Acute alcohol withdrawal/nausea vomiting HPI Narrative BETHANY MONTALVO, is a 57 M who presented to the emergency department at [facility] on 05/13/2023 with about 3 to 4 [...] a temperature of 96.8, heart rate was however with IV fluids he has trended [...] Anxiety Asthma Atherosclerosis of coronary artery of [place] heart without angina pectoris Chest pain Chest [...] 72.9 H, Lymph % (Auto) 18.4 L, [place] % (Auto) 7.6, Eos % (Auto) 0.3, [...] Clarity Clear, Urine pH 5.0, Ur Specific [place] 1.020, Urine Protein 100 H, Urine Glucose [...] Full code Charges/Coding Visit Charges Inpatient E&M: 60264 Init Hosp L2 05/13/232027 <Electronically signed by Lorena Bennett DO> Cosigner Signature (if applicable): CC: XUAN Kwon; Dr. Lorena Bennett DO~ Signed [facility] Work Phone: 1(483) 253-590110-23-2023 Discharge summary Author Maggy [facility] May 13, 2023 5:15pm Note Date/Time May 13, 2023 1 1:19am [facility] Medical Records Department [address] [place] [address] Emergency Department Summary 05/13/23 MR#: [id number] Acct: [id number] Name: BETHANY MONTALVO Rep #:[id number] : 1965 57 From: Jaun GOVEA PCP: XUAN Armendariz Status:ADM I N [place] [facility] [id number] HPI <XUAN Nicole - Last Filed: 05/13/23 [...] muscle cramps and is here for evaluation. [facility] <XUAN Nicole - Last Filed: 05/13/23 16:30> [facility] Medical History Alcohol abuse Alcohol intoxication Atherosclerosis of coronary artery of [place] heart without angina pectoris Chest pain Chest [...] <XUAN Nicole - Last Filed: 05/13/23 16:30> [facility] Lab Data Labs: Laboratory Results [...] 72.9 H Lymph % (Auto) 18.4 L [place] % (Auto) 7.6 Eos % (Auto) 0.3 [...] Clarity Clear Urine pH 5.0 Ur Specific [place] 1.020 Urine Protein 100 H Urine Glucose [...] Tucker, DO - Last Filed: 05/13/23 17:15> [facility] Lab Data Labs: Laboratory Results [...] 72.9 H Lymph % (Auto) 18.4 L [place] % (Auto) 7.6 Eos % (Auto) 0.3 [...] Clarity Clear Urine pH 5.0 Ur Specific [place] 1.020 Urine Protein 100 H Urine Glucose [...] Acidosis, lactic Disposition Disposition: Acute Care Hospital [facility] Discharge Date/Time: 05/13/23 17:11 What to do if you have Problems For any increased pain, shortness of breath, bleeding, nausea or vomiting, chest pain, or any unexpected problems, contact your Primary Care Provider. Call [facility] ([phone]) or report to the closest Emergency Room. Call 911 if necessary. 05/13/23 1630 <Electronically signed by Jaun GOVEA> Cosigner Signature (if applicable): 05/13/23 1715 <Electronically signed by Maggy Tucker DO> CC: XUAN Kwon ~ Signed [facility] Work Phone: 1(581) 927-341109-19-2023 Miscellaneous Notes* Telephone Encounter - India Coleman [...] primary care provideror schedule a visit with [facility]. India Coleman RN [facility] History of Present illness Narrative* Henry [...] cardiology. Henry Morrow MD documented in this encounterMer[facility]-2023 Procedure [facility]07-03-2023 Instructions* Patient Instructions* Keren Kwon APRN.CNP - 01/21/2023 3:12 PM EDT Get labwork. Restart the amlodipine 5 mg daily. Reschedule the stress testing. Recheck in a month. documented in this encounterMer[facility]07-[facility]-2023 History of Present illness Narrative* Keren Kwon APRN.CNP - 01/21/2023 2:49 PM EDT This is a 57 year old male who presents today with: Patient presents with: ER F/U: [facility] ER 01/02/23 dx: viral gastroenteritis; pulmonary nodule HISTORY OF PRESENT ILLNESS: Bethany Montalvo is a 57 year old male. Patient presents with: ER F/U: [facility] ER 01/02/23 dx: viral gastroenteritis; pulmonary nodule [...] Age of Onset Psychiatry Mother Heart Mother [place] 53 Heart Father [place] 51 Colon Cancer Father Social History Tobacco [...] improvement. Keren Kwon APRN.CHRISTIANA documented in this encounterMer[facility]06-07-2023 Miscellaneous Notes* Telephone Encounter - Richelle [...] week. Orders are in. documented in this encounterMer[facility]04-17-2023 Instructions* Patient Instructions* Keren Kwon APRN.CNP - 11/05/2022 2:12 PM EDT Get fasting labwork. Follow-up with cardiology. Restart lisinopril. Recheck in a month. Schedule carotid ultrasound. Check with insurance re: shingrix and pneumonia shot. documented in this encounterMercy [facility]04-17-2023 History of Present illness Narrative* Keren [...] a friend. 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 Likes his job -- has been there since last year. Trying to get back on track. Planning on attending AA meetings. CAD Has appt 12/21 with [facility]. No new heartpain/sob. HTN: Patient is [...] Age of Onset Psychiatry Mother Heart Mother [place] 53 Heart Father [place] 51 Colon Cancer Father Social History Tobacco [...] APRN.CHRISTIANA This note was partially generated using WorldTV voice recognition system. Note was reviewed for accuracy. There may be minor misspellings or grammar miscues with WorldTV voice recognition. 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 [employer] inmid to late teens. TO ROS Objective [...] TABLET Ziggy Mobley APRN.CNP documented in this encounterMercy Health [facility]11-15-2022 Instructions* Patient Instructions* Rebecca Devries APRN.CNP - 06/05/2022 1:57 PM EST covid test ordered You will be notified in 12-24 hours, results available on [facility] until covid results are back [...] breath, inability to swallow. documented in this encounterMercy Health [facility]ard Hospital11-15-2022 History of Present illness Narrative* Rebecca Devries APRN.CNP - 06/05/2022 1:56 PM EST Subjective The history is provided by the patient. No supervisor patching was used. HPI Bethany Montalvo is a [...] have confirmed and edited as necessary, the [facility] Review of Systems Constitutional: Positive [...] in 12-24 hours with results, available on [facility] Diagnosis and treatment plan were discussed and questions were answered to the patient's satisfaction. Pt acknowledged understanding of concepts and follow up plan. Specific signs and symptoms that would indicate the need for higher level of care were discussed indetail warranting prompt ER evaluation. Rebecca Devries APRN.CHRISTIANA documented in this encounterMercy Health [facility]09-07-2022 Miscellaneous Notes* Telephone Encounter - Richelle Demarco LPN - 03/28/2022 3:18 PM EDT Patient phones requesting refills as follows: Requested Prescriptions Pending Prescriptions Disp Refills cyclobenzaprine (FLEXERIL) 10 mg tablet 30 tablet 0 Sig: Take 1 tablet by mouth once daily as needed. KRISTEN-02/23/22 Labs-02/21/22 NOV-none med filled 02/23/22 Please review and advise. Richelle Demarco LPN documented in this encounterMercy Health [facility] Hospital08-05-2022 Miscellaneous Notes* Telephone Encounter - Natividad Salas Cma - 02/23/2022 9:59 AM EDT Called and lab was added Natividad Salas Cma * Telephone Encounter - Mikhail Mancia MD - 02/23/2022 8:33 AM EDT Ck was normal.. it appears lipid was ordered for same but I do not think it was done? If not done, can it be added on? documented in this encounterMercy Health [facility]ard Hospital08-05-2022 Instructions* Patient Instructions* Keren Kwon APRN.CNP - 02/23/2022 9:42 AM EDT 1. Schedule w/ cardiology. 2. Start the doxycycline -- twice daily X 10 days. 3. Use the cream to the arm twice daily for up to 2 weeks. 4. Recheck in 1 month. documented in this encounterMercy Health Willard Hospital08-05-2022 History of Present illness Narrative* Keren Kwno APRN.CNP - 02/23/2022 9:32 AM EDT This [...] Age of Onset Psychiatry Mother Heart Mother [place] 53 Heart Father [place] 51 Colon Cancer Father Social History Tobacco [...] agrees with the plan. documented in this encounterMercy Health [facility] Hospital08-01-2022 History of Present illness Narrative* Bulmaro [...] 19, 2022 3:29 PM documented in this encounterMercy Health [facility] Hospital08-01-2022 History of Present illness Narrative* Ziggy Mobley APRN.AGRICULTURAL RESEARCH TECHNICIAN - 02/19/2022 3:25 PM EDT Subjective HPI [...] Age of Onset Psychiatry Mother Heart Mother [place] 53 Heart Father [place] 51 Colon Cancer Father Social History Tobacco [...] plan Ziggy Mobley APRN.CNP documented in this encounterMercy Health [facility]04-27-2022 Instructions* Patient Instructions* Keren Kwon APRN.CNP - 11/15/2021 2:16 PM EDT 1. Continue the same medications. 2. Get the previously ordered testing/referrals scheduled. 3. Keep advancing fluids and return next week -- well hydrated to repeat labs. 4. Recheck in a month -- sooner if needed. documented in this encounterMercy Health [facility] Hospital04-27-2022 History of Present illness Narrative* Keren [...] Age of Onset Psychiatry Mother Heart Mother [place] 53 Heart Father [place] 51 Colon Cancer Father Social History Tobacco [...] plan. This note was partially generated using WorldTV voice recognition system. Note was reviewed for accuracy. There may be minor misspellings or grammar miscues with Dragon voice recognition. documented in this encounterMercy Health Willard Hospital04-22-2022 Miscellaneous Notes* Telephone Encounter - Donna Richey LPN - 11/10/2021 9:38 AM EDT See other phone note from 11/09. Pt notified of provider instructions. He was supposed to return to lab for redraw. No labs drawn at this time. Donna Richey LPN * Telephone Encounter - Richelle Demarco LPN - 11/09/2021 3:13 PM EDT Obtained [facility] reports and put on her desk for tomorrow. She is out today. Richelle Demarco LPN * Telephone Encounter - Jared Elias DO - 11/09/2021 10:31 AM EDT While extrusion former yesterday evening, was called by Dr. Paolo Wesley at [facility] regarding patient visit in EMERGENCY DEPARTMENT. He has a potassium of 5.1 in the EMERGENCY DEPARTMENT as well as a creatinine serum of 1.56. He wastreated with IVF and d/c home to follow up with primary care team. FYI to Keren Kwon CNP to address with patient Jared Elias DO documented in this encounterMercy Health [facility]ard Hospital04-21-2022 Miscellaneous Notes* Telephone Encounter - Omega [...] 11/09/2021 12:13 PM EDT Please advise from [employer] message: Needs to come in today to [...] vegetables (turnip greens, spinach, [place] lettuce, asparagus, [place] sprouts, broccoli) Beans. Peanuts. [place] seeds. Fresh fruits, fruit juices. Whole grains. [...] other numbers look good. documented in this encounterMercy Health [facility]ard Hospital04-20-2022 Miscellaneous Notes* Telephone Encounter - Haris Dawkins RN - 11/08/2021 7:51 PM EDT Kerrie, from the [facility], is calling seeking whomever is talent development consultant for Keren Kwon. CHRISTIANA Conferenced through to the affiliate line for further assistance. documented in this [facility]04-20-2022 Miscellaneous Notes* Telephone Encounter - Donna [...] treatment. Keren Kwon APRN.CNP documented in this encounterMercy Health [facility]ard Hospital04-13-2022 Instructions* Patient Instructions* Keren Kwon APRN.CNP - 11/01/2021 4:07 PM EDT 1. Get fasting labs. 2. Schedule carotid ultrasound. 3. Schedule stress test. 4. Schedule w/ GI. 5. Schedule with cardiology. 6. Schedule w/ psychiatry. 7. Recheck in 2-3 weeks. 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 Patient presents with: Physical: needs medication refills; c/o snf covid effects, had covid 3x's; was not [...] Age of Onset Psychiatry Mother Heart Mother [place] 53 Heart Father [place] 51 Colon Cancer Father Social History Tobacco [...] MG TABLET - CONSULT TO CARDIOLOGY - MS CARDIAC PERF STRESS/PHARM - PRE-PROCEDURE & PRE-OPERATIVE COVID - LEXISCAN 0.4 MG/5 ML INTRAVENOUS SYRINGE - INSERT IV ([place]) - IV DISCONTINUE He previously followed with with [facility], however he would like to get established with [facility]. Referral placed. We will go [...] plan. This note was partially generated using WorldTV voice recognition system. Note was reviewed for accuracy. There may be minor misspellings or grammar miscues with WorldTV voice recognition. I spent a total of 60 minutes on the date of the service which included preparing to see the patient, [id number] patient care, completing clinical documentation, obtaining and/or reviewing separately obtained history, performing a medically appropriate examination, counseling and educating the pat ient/family/caregiver, ordering medications, tests, or procedures and care coordination (not separately reported). [facility] summary Author Shakeel Valera [facility] May 16, 2023 11:11am Note Date/Time May 16, 2023 1 1:08am [facility] Medical Records Department [address] [place] [address] Instructions for Home/Discharge Instructions 05/16/23 1108 MR#: [id number] Acct: [id number] Name: BETHANY MONTALVO Rep #:[id number] : 1965 57 From: Shakeel rendon MD [...] on 05/20/23. Referrals / Follow Up: Haagen,Keren HOSPITALITY AIDE, HOSPITALITY AIDE-C [Primary Care Provider] - Within 1 Week Disposition Disposition (needs filled in before D/C Order can be placed): Home, Self Care 05/16/23 1111<Electronically signed by Shakeel Valera MD>Shakeel Valera MD CC: XUAN Kwon; Dr. Lorena Bennett, DO ~ Signed [facility] Work Phone: Evaluation note* Diagnosis Chest pain, [...] unspecified cardiovascular conditions documented [facility] this encounter [facility] noteNo assessment information availableWUC Medical Center Work Phone: Evaluation note* Diagnosis Serum potassium elevated- Primary Hyperpotassemia NSTEMI (non-ST elevated myocardial infarction) (HCC) Acute myocardial infarction, subendocardial infarction, episode of care unspecified Hypertriglyceridemia Pure hyperglyceridemia Hyperlipidemia, mixed Mixed hyperlipidemia documented in this encounter [facility]* Diagnosis Upper back pain- Primary Function kidney decreased Unspecified disorder of kidney and ureter documented in this encounter [facility]* Diagnosis Acute cough- Primary Hypertension, essential Unspecified essential hypertension URI, acute Acute upper respiratory infections of unspecified site documented in this encounter [facility]* Diagnosis Sinobronchitis- Primary Unspecified sinusitis [...] to unspecified cause documented [facility] this encounter [facility]* Diagnosis Anxiety and depression Dysthymic disorder Hypertension, essential Unspecified essential hypertension Hypertriglyceridemia Pure hyperglyceridemia Chronic alcohol abuse Alcohol abuse, unspecified 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 Acute right-sided low back pain without sciatica [facility] Diagnosis Body aches- Primary Generalized pain Flu-like symptoms Other general symptoms [facility] Diagnosis Foot pain, right- Primary Pain in limb [facility] Diagnosis Hypertension, essential- Primary Unspecified [...] of cerebral infarction [facility] Diagnosis Chest pain, unspecified type- Primary 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 Acute right-sided low back pain without sciatica Hypertension, essential Unspecified essential hypertension Thrombocytopenia (HCC) Thrombocytopenia, unspecified Chronic alcohol abuse Alcohol abuse, unspecified [facility] Diagnosis Onset Date Resolution Status Chest pain acute WILSON (dyspnea on exertion) [place] Fatigue acute Tobacco use acute Hyperlipidemia chronic Hypertension chronic Stented coronary artery course instructor roberta Lung nodule acute COPD (chronic obstructive pulmonary disease) chronic [facility] Work Phone: Evaluation note* Diagnosis Elevated liver enzymes- Primary Other nonspecific abnormal serum enzyme levels Hypomagnesemia Disorders of magnesium metabolism [facility]* Diagnosis Onset Date Resolution Status Chest pain acute WILSON (dyspnea on exertion) [place] Hyperlipidemia chronic Hypertension chronic Stented coronary artery course instructor roberta COPD (chronic obstructive pulmonary disease) chronic Carotid artery disease chron ic Chronic kidney disease chron ic COPD (chronic obstructive pulmonary disease) chronic Coronary artery disease course instructor roberta Hyperlipidemia chronic Hypertension chronic History of non-ST elevation myocardial infarction (NSTEMI) resolved [facility] Work Phone: Evaluation note* Diagnosis Influenza-like illness- Primary Influenza with other respiratory manifestations Hypertension, essential Unspecified essential hypertension [facility] Onset Date Resolution Status Carotid artery disease chron ic Chronic kidney disease chron ic COPD (chronic obstructive pulmonary disease) chronic Coronary artery disease course instructor roberta Hyperlipidemia chronic Hypertension chronic History of non-ST elevation myocardial infarction (NSTEMI) resolved Abdominal pain acute Acidosis, lactic acute Acute dehydration acute LZU MARIA (acute kidney injury) [place] Alcohol withdrawal acute Alcoholic hepatitis acute Dehydration acute Nausea & vomiting acute [facility] Work Phone: Evaluation note* Diagnosis Onset Date Resolution Status Carotid artery disease chron ic Chronic kidney disease chron ic COPD (chronic obstructive pulmonary disease) chronic Coronary artery disease course instructor roberta Hyperlipidemia chronic Hypertension chronic History of non-ST elevation myocardial infarction (NSTEMI) resolved Abdominal pain acute Acidosis, lactic acute Acute dehydration acute LUZ MARIA (acute kidney injury) [place] Alcohol withdrawal acute Alcoholic hepatitis acute Dehydration acute Hyperbilirubinemia acute Nausea vomiting and diarrhea acute Transaminitis acute [facility] Work Phone: Evaluation note* Diagnosis Onset Date Resolution Status Noncompliance with medications acute Carotid artery disease chron ic Chronic kidney disease chron ic COPD (chronic obstructive pulmonary disease) chronic Coronary artery disease course instructor roberta Hyperlipidemia chronic Hypertension chronic Nicotine dependence chronic History of non-ST elevation myocardial infarction (NSTEMI) resolved [facility] Work Phone: Evaluation note* Diagnosis Coronary artery [...] of cerebral infarction [facility] Diagnosis Family hx of colon cancer- Primary Family history of malignant neoplasm of gastrointestinal tract Screening for colon cancer Special screening for malignant neoplasms, colon Hx of colonic polyps Personal history of colonic polyps [facility] Diagnosis Sore throat- Primary Acute pharyngitis Injury of right elbow, initial encounter Viral illness Unspecified viral infection, in conditions classified elsewhere and of unspecified site Injury of right elbow, initial encounter [facility] Injury of right elbow, initial encounter [facility] Diagnosis Anxiety and depression Dysthymic disorder [facility] Diagnosis Acute cough- Primary Acute cough [facility] Diagnosis Acute cough [facility] Diagnosis Anxiety and depression Dysthymic disorder [facility] Diagnosis Hyponatremia- Primary Hyposmolality and/or hyponatremia Elevated alkaline phosphatase level Other nonspecific abnormal serum enzyme levels Elevated PSA Elevated prostate specific antigen (PSA) Elevated hemoglobin (HCC) Other hemoglobinopathies [facility] Diagnosis Acute pain of left knee- Primary Moderate hypertension Unspecified essential hypertension [facility] Diagnosis Acute pain of left knee [facility] Diagnosis Acute pain of left knee [facility] Diagnosis Elevated PSA- Primary Elevated prostate specific antigen (PSA) Elevated alkaline phosphatase level Other nonspecific abnormal serum enzyme levels [facility] Diagnosis Acute pain of left knee- Primary Hx of non-ST elevation myocardial infarction (NSTEMI) Old myocardial infarction Hypertension, unspecified type Elevated alkaline phosphatase level Other nonspecific abnormal serum enzyme levels Elevated PSA Elevated prostate specific antigen (PSA) Acute gout of left knee, unspecified cause Chronic alcohol abuse Alcohol abuse, unspecified [facility] Diagnosis Elevated alkaline phosphatase level Other nonspecific abnormal serum enzyme levels [facility] Diagnosis Hepatosplenomegaly- Primary Other chronic nonalcoholic liver disease [facility] Diagnosis Hypertension, essential- Primary Unspecified essential hypertension Current severe episode of major depressive disorder without psychotic features, unspecified whether recurrent (HCC) Alcohol abuse Alcohol abuse, unspecified Acute pain of left knee [facility] Diagnosis Elevated PSA- Primary Elevated prostate specific antigen (PSA) BPH with obstruction/lower urinary tract symptoms Hypertrophy of prostate with urinary obstruction and other lower urinary tract symptoms (LUTS) ETOH abuse Alcohol abuse, unspecified documented in this encounter [facility]* Diagnosis Hypertension, essential- Primary Unspecified essential [...] insomnia Insomnia, unspecified documented in this encounter [facility] note* Diagnosis Hypertension, unspecified type documented in this encounter [facility] note* Diagnosis Acute right-sided low back pain without sciatica documented in this encounter [facility] note* Diagnosis Medial epicondylitis, right elbow- Primary Elbow pain, right Pain in joint, upper arm documented in this encounter [facility] note* Diagnosis Hypomagnesemia Disorders of magnesium metabolism Chronic alcohol abuse Alcohol abuse, unspecified Hypertension, unspecified type documented in this encounter [facility] note* Diagnosis Elevated PSA- Primary Elevated prostate specific antigen (PSA) documented in this encounter [facility] note* Diagnosis Hypertension, unspecified type documented in this encounter [facility] note* Diagnosis Acute right-sided low back pain without sciatica documented in this encounter [facility] note* Diagnosis Lower abdominal pain- Primary Abdominal pain, other specified site Diarrhea, unspecified type documented in this encounter [facility] (narrative)* Diagnostic Procedure Only (Routine) - Pending Review Specialty Diagnoses / Procedures Referred By Contac t Referred To Contact MOLECULAR & FUNCTIONAL IMAGING Diagnoses Chest pain, unspecified type Encounter for screening for cardiovascular disorders Procedures NM CARDIAC PERF STRESS/PHARM MYOCARDIAL SPECT MULTIPLE STUDIES Keren Kwon APRN.CNP [address] [place] [address] Molecular [facility] Functional Imaging [address] [place] [address] Referral ID Status Reason Start Date Expiration Date Visits Requested Visits Authorized [id number] Pending Review Auto-Generat ed Referral 11/01/2021 12/01/2022 1 1 * Consult, Test, Treat (Routine) - Authorized Specialty Diagnoses / Procedures Referred By Contac t Referred To Contact Gastroenterology Diagnoses Diverticulitis Procedures CONSULT TO GASTROENTEROLOGY OFFICE/OUTPATIENT [facility] 60-74 MINUTES Keren Kwon APRN.AGRICULTURAL RESEARCH TECHNICIAN [address] [place] [address] Referral ID Status Reason Start Date Expiration Date Visits Requested Visits Authorized [id number] Authorized PCP Requested Referral 11/01/2021 11/01/2022 1 1 * Consult, Test, Treat (Routine) - Authorized Specialty Diagnoses / Procedures Referred By Contac t Referred To Contact Cardiology Diagnoses Chest pain, unspecified type 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 Procedures CONSULT TO CARDIOLOGY OFFICE/OUTPATIENT [facility] 60-74 MINUTES Keren Kwon APRN.AGRICULTURAL RESEARCH TECHNICIAN [address] [place] [address] Referral ID Status Reason Start Date Expiration Date Visits Requested Visits Authorized [id number] Authorized PCP Requested Referral 11/01/2021 11/01/2022 1 1 * Outpatient Procedure (Routine) - Pending Review Specialty Diagnoses / Procedures Referred By Contac t Referred To Contact [facility] Diagnoses Bilateral carotid artery stenosis Procedures US CAROTID ARTERIES MARYAN[facility] DUPLEX SCAN EXTRACRANIAL ART COMPL BI STUDY Keren Kwon APRN.AGRICULTURAL RESEARCH TECHNICIAN [address] [place] [address] [facility] [place] [address] [place] [address] Referral ID Status Reason Start Date Expiration Date Visits Requested Visits Authorized [id number] Pending Review Auto-Generat ed Referral 11/01/2021 11/01/2022 1 1 * Outpatient Procedure (Routine) - Closed Specialty Diagnoses / Procedures Referred By Contac t Referred To Contact [facility] Diagnoses Chest pain, unspecified type Procedures ECG COMPLETE ECG ROUTINE ECG W/LEAST 12 LDS W/I&R Keren Kwon APRN.AGRICULTURAL RESEARCH TECHNICIAN [address] [place] [address] [facility] [place] [address] [place] [address] Referral ID Status Reason Start Date Expiration Date V isits Requested Visits Authorized [id number] Closed Auto-Generate d Referral 11/01/2021 11/01/2022 1 1 [facility] ([facility] Diagnostic Procedure Only (Urgent) - Closed Specialty Diagnoses / Procedures Referred By Contac t Referred To Contact XR IMAGING Diagnoses Foot pain, right Procedures XR FOOT GENERAL 3V AP/LAT/OBL RIGHT RADEX FOOT COMPLETE MINIMUM 3 VIEWS Ziggy Mobley APRN.AGRICULTURAL RESEARCH TECHNICIAN [address] [place] [address] Xr Imaging Referral ID Status Reason Start Date Expiration Date V isits Requested Visits Authorized [id number] Closed Auto-Generate d Referral 06/25/2022 07/25/2023 1 1 [facility] (narrative)* Outpatient Procedure (Routine) - Authorized Specialty Diagnoses / Procedures Referred By Contac t Referred To Contact [facility] Diagnoses Bilateral carotid artery stenosis Procedures US CAROTID ARTERIES MARYANNE [facility] LAB DUPLEX SCAN EXTRACRANIAL ART COMPL BI STUDY Keren Kwon APRN.AGRICULTURAL RESEARCH TECHNICIAN [address] [place] [address] [facility] [place] [address] [place] [address] Referral ID Status Reason Start Date Expiration Date Visits Requested Visits Authorized [id number] Authorized Auto-Generat ed Referral 11/05/2022 11/05/2023 1 1 * Medication Prior Authorization - Closed Specialty Diagnoses / Procedures Referred By Contac t Referred To Contact Diagnoses 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 Keren Kwon APRN.AGRICULTURAL RESEARCH TECHNICIAN [address] [place] [address] Referral ID Status Reason Start Date Expiration Date Visits Re quested Visits Authorized [id number] Closed 1 1 [facility] ([facility]ative)* Diagnostic Procedure Only (Routine) - Pending Review Specialty Diagnoses / Procedures Referred By Contac t Referred To Contact US IMAGING Diagnoses Elevated liver enzymes Procedures US ABD RIGHT UPPER QUADRANT US ABDOMINAL REAL TIME W/IMAGE LIMITED Keren Kwon APRN.AGRICULTURAL RESEARCH TECHNICIAN [address] [place] [address] Us Imaging Referral ID Status Reason Start Date Expiration Date Visits Requested Visits Authorized [id number] Pending Review Auto-Generat ed Referral 12/26/2022 01/25/2024 1 1 [facility] (narrative)* Outpatient Procedure (Routine) - Authorized Specialty Diagnoses / Procedures Referred By Contac t Referred To Contact [facility] Diagnoses Bilateral carotid artery stenosis Procedures US CAROTID ARTERIES MARYANNE VAS LAB DUPLEX SCAN EXTRACRANIAL ART COMPL BI STUDY Keren Kwon APRN.AGRICULTURAL RESEARCH TECHNICIAN [address] [place] [address] [facility] [place] [address] [place] [address] Referral ID Status Reason Start Date Expiration Date Visits Requested Visits Authorized [id number] Authorized Auto-Generat ed Referral 4 06/12/2025 1 1 * Consult, Test, Treat (Routine) - Authorized Specialty Diagnoses / Procedures Referred By Contac t Referred To Contact General Surgery Diagnoses Screening for colon cancer Procedures CONSULT TO GENERAL SURGERY OFFICE/OUTPATIENT [facility] 60 MINUTES Keren Kwon APRN.AGRICULTURAL RESEARCH TECHNICIAN [address] [place] [address] Referral ID Status Reason Start Date Expiration Date Visits Requested Visits Authorized [id number] Authorized PCP Requested Referral 06/12/2025 1 1 [facility] for referral (narrative)* Diagnostic Procedure Only (Urgent) - Closed Specialty Diagnoses / Procedures Referred By Contac t Referred To Contact XR IMAGING Diagnoses Injury of right elbow, initial encounter Procedures XR ELBOW SPECIAL VIEWS AP/LAT/OTHER RIGHT RADEX ELBOW COMPLETE MINIMUM 3 VIEWS Desmond Duncan APRN.AGRICULTURAL RESEARCH TECHNICIAN [address] [place] [address] [place] [address] Referral ID Status Reason Start Date Expiration Date V isits Requested Visits Authorized [id number] Closed Auto-Generate d Referral 07/09/2024 08/08/2025 1 1 [facility] for referral (narrative)* Diagnostic Procedure Only (Routine) - Closed Specialty Diagnoses / Procedures Referred By Contac t Referred To Contact XR IMAGING Diagnoses Acute pain of left knee Procedures XR KNEE GENERAL 4V AP BOTH/PA BOTH/LAT/MERC LEFT RADIOLOGIC EXAM KNEE COMPLETE 4/MORE VIEWS Keren Kwon APRN.AGRICULTURAL RESEARCH TECHNICIAN [address] [place] [address] [place] [address] Referral ID Status Reason Start Date Expiration Date V isits Requested Visits Authorized [id number] Closed Auto-Generate d Referral 08/11/2024 09/10/2025 1 1 [facility] for referral (narrative)* Diagnostic Procedure Only (Routine) - Authorized Specialty Diagnoses / Procedures Referred By Contac t Referred To Contact US IMAGING Diagnoses Elevated alkaline phosphatase level Procedures US ABD RIGHT UPPER QUADRANT US ABDOMINAL REAL TIME W/IMAGE LIMITED Keren Kwon APRN.AGRICULTURAL RESEARCH TECHNICIAN [address] [place] [address] [place] [address] Referral ID Status Reason Start Date Expiration Date Visits Requested Visits Authorized [id number] Authorized Auto-Generat ed Referral 08/14/2024 09/13/2025 1 1 * Consult, Test, Treat (Routine) - Authorized Specialty Diagnoses / Procedures Referred By Contac t Referred To Contact Urology Diagnoses Elevated PSA Procedures CONSULT TO UROLOGY OFFICE/OUTPATIENT NEW HIGH MDM 60 MINUTES Keren Kwon APRN.AGRICULTURAL RESEARCH TECHNICIAN [address] [place] [address] Referral ID Status Reason Start Date Expiration Date Visits Requested Visits Authorized [id number] Authorized PCP Requested Referral 08/12/2024 08/12/2025 1 1 [facility] (narrative)* Diagnostic Procedure Only (Routine) - Closed Specialty Diagnoses / Procedures Referred By Contac t Referred To Contact US IMAGING Diagnoses Elevated alkaline phosphatase level Procedures US ABD RIGHT UPPER QUADRANT US ABDOMINAL REAL TIME W/IMAGE LIMITED Keren Kwon APRN.AGRICULTURAL RESEARCH TECHNICIAN [address] [place] [address] [place] [address] Referral ID Status Reason Start Date Expiration Date V isits Requested Visits Authorized [id number] Closed Auto-Generate d Referral 08/14/2024 09/13/2025 1 1 [facility] Narrative* Diagnostic Procedure Only (Urgent) - Closed Specialty Diagnoses / Procedures Referred By Contac t Referred To Contact XR IMAGING Diagnoses Foot pain, right Procedures XR FOOT GENERAL 3V AP/LAT/OBL RIGHT RADEX FOOT COMPLETE MINIMUM 3 VIEWS Ziggy Mobley APRN.AGRICULTURAL RESEARCH TECHNICIAN [address] [place] [address] [place] [address] Referral ID Status Reason Start Date Expiration Date V isits Requested Visits Authorized [id number] Closed Auto-Generate d Referral 06/25/2022 07/25/2023 1 1 [facility] Narrative* Diagnostic Procedure Only (Urgent) - Closed Specialty Diagnoses / Procedures Referred By Contac t Referred To Contact XR IMAGING Diagnoses Injury of right elbow, initial encounter Procedures XR ELBOW SPECIAL VIEWS AP/LAT/OTHER RIGHT RADEX ELBOW COMPLETE MINIMUM 3 VIEWS Desmond Duncan, FORTUNE COOKIE MAKER.AGRICULTURAL RESEARCH TECHNICIAN [address] [place] [address] [place] [address] Referral ID Status Reason Start Date Expiration Date V isits Requested Visits Authorized [id number] Closed Auto-Generate d Referral 07/09/2024 08/08/2025 1 1 [facility] Diagnostic Procedure Only (Routine) - Closed Specialty Diagnoses / Procedures Referred By Contac t Referred To Contact XR IMAGING Diagnoses Acute pain of left knee Procedures XR KNEE GENERAL 4V AP BOTH/PA BOTH/LAT/MERC LEFT RADIOLOGIC EXAM KNEE COMPLETE 4/MORE VIEWS Keren Kwon, FORTUNE COOKIE MAKER.AGRICULTURAL RESEARCH TECHNICIAN [address] [place] [address] [place] [address] Referral ID Status Reason Start Date Expiration Date V isits Requested Visits Authorized [id number] Closed Auto-Generate d Referral 08/11/2024 09/10/2025 1 1 [facility] Summary Purpose Family History No Family [...] No November 08, 2021 6:00pm Power of Carbon Setter No November 08 6:00pm Advance Directive Response Recorded Date/ Time Advance Directives No January 12 12:30pm Living Will No January 02, 2023 8:59am Power of Carbon Setter No January 02 8:59am Advance Directive Response Recorded Date/ Time Advance Directives No January 12 12:30pm Living Will No May 13 11:47am Power of Carbon Setter No May 13, 2023 11:47am Advance Directive Response Recorded Date/ Time Advance Directives No January 12 12:30pm Living Will No May 13 5:41pm Power of Carbon Setter No May 13, 2023 5:41pm Chief Complaint [...] colon cancer Procedures CONSULT TO GASTROENTEROLOGY OFFICE/OUTPATIENT [facility] 60 MINUTES Alma Delia Garza, FORTUNE COOKIE MAKER.AGRICULTURAL RESEARCH TECHNICIAN [address] [place] [address] Referral ID Status Reason Start Date Expiration Date Visits Requested Visits Authorized [id number] Authorized PCP Requested Referral 06/22/2024 06/22/2025 1 1 Specialty Diagnoses / Procedures Referred By Contac t Referred To Contact Orthopedics Diagnoses Injury of right elbow, initial encounter Procedures CONSULT TO ORTHOPAEDICS OFFICE/OUTPATIENT [facility] 60 MINUTES Desmond Duncan, FORTUNE COOKIE MAKER.AGRICULTURAL RESEARCH TECHNICIAN [address] [place] [address] Referral ID Status Reason Start Date Expiration Date Visits Requested Visits Authorized [id number] Authorized PCP Requested Referral 07/09/2025 1 1 Specialty Diagnoses / Procedures Referred By Contac t Referred To Contact XR IMAGING Diagnoses Injury of right elbow, initial encounter Procedures XR ELBOW SPECIAL VIEWS AP/LAT/OTHER RIGHT RADEX ELBOW COMPLETE MINIMUM 3 VIEWS Desmond Duncan, FORTUNE COOKIE MAKER.AGRICULTURAL RESEARCH TECHNICIAN [address] [facility] [place] [address] [place] [address] Referral ID Status Reason Start Date Expiration Date V isits Requested Visits Authorized [id number] Closed Auto-Generate d Referral 07/09/2024 08/08/2025 1 1 Specialty Diagnoses / Procedures Referred By Contac t Referred To Contact Cardiology Diagnoses Hx of non-ST elevation myocardial infarction (NSTEMI) Procedures CONSULT TO CARDIOLOGY OFFICE/OUTPATIENT [facility] 60 MINUTES Keren Kwon, FORTUNE COOKIE MAKER.AGRICULTURAL RESEARCH TECHNICIAN [address] [place] [address] Referral ID Status Reason Start Date Expiration Date Visits Requested Visits Authorized [id number] Authorized PCP Requested Referral 08/24/2024 08/24/2025 1 1 Additional Source Comments (unrecognized sect ion and content) No Status Records FoundNo Status Records FoundNo Status Records FoundNo Status Records Found INFORMATION SOURCE (unrecogn ized section and content) DATE CREATED AUTHOR 01/10/2018 [facility] DATE CREATED AUTHOR AUTHOR'S ORGANIZ ATION 01/10/2018 [facility] DATE CREATED AUTHOR AUTHOR'S ORGANIZ ATION 02/01/2025 [facility] DATE CREATED AUTHOR AUTHOR'S ORGANIZ ATION 02/11/2025 [facility] Source Comments (unrecognize d section and content) In the event this informatio n is protected by the Federal Confidentiality of Alcohol and Drug Abuse Patient Records regulations: The Federal rules restrict any use of the information to criminally investigate or prosecute any alcohol or drug abuse patient.[facility] the event this information is protected by the Federal Confidentiality of Alcohol and Drug Abuse Patient Records regulations: The Federal rules restrict any use of the information to criminally investigate or prosecute any alcohol or drug abuse patient.[facility] Hospital[facility] the event this information is protected by the Federal Confidentiality of Alcohol and Drug Abuse Patient Records regulations: The Federal rules restrict any use of the information to criminally investigate or prosecute any alcohol or drug abuse patient.[facility] Hospital[facility] the event this information is protected by the Federal Confidentiality of Alcohol and Drug Abuse Patient Records regulations: The Federal rules restrict any use of the information to criminally investigate or prosecute any alcohol or drug abuse patient.[facility] Hospital[facility] the event this information is protected by the Federal Confidentiality of Alcohol and Drug Abuse Patient Records regulations: The Federal rules restrict any use of the information to criminally investigate or prosecute any alcohol or drug abuse patient.[facility] HospitalIn the event this information is protected by the Federal Confidentiality of Alcohol and Drug Abuse Patient Records regulations: The Federal rules restrict any use of the information to criminally investigate or prosecute any alcohol or drug abuse patient.[facility] HospitalIn the event this information is protected by the Federal Confidentiality of Alcohol and Drug Abuse Patient Records regulations: The Federal rules restrict any use of the information to criminally investigate or prosecute any alcohol or drug abuse patient.[facility] HospitalIn the event this information is protected by the Federal Confidentiality of Alcohol and Drug Abuse Patient Records regulations: The Federal rules restrict any use of the information to criminally investigate or prosecute any alcohol or drug abuse patient.[facility] HospitalIn the event this information is protected by the Federal Confidentiality of Alcohol and Drug Abuse Patient Records regulations: The Federal rules restrict any use of the information to criminally investigate or prosecute any alcohol or drug abuse patient.[facility] HospitalIn the event this information is protected by the Federal Confidentiality of Alcohol and Drug Abuse Patient Records regulations: The Federal rules restrict any use of the information to criminally investigate or prosecute any alcohol or drug abuse patient.[facility] HospitalIn the event this information is protected by the Federal Confidentiality of Alcohol and Drug Abuse Patient Records regulations: The Federal rules restrict any use of the information to criminally investigate or prosecute any alcohol or drug abuse patient.[facility] HospitalIn the event this information is protected by the Federal Confidentiality of Alcohol and Drug Abuse Patient Records regulations: The Federal rules restrict any use of the information to criminally investigate or prosecute any alcohol or drug abuse patient.[facility] HospitalIn the event this information is protected by the Federal Confidentiality of Alcohol and Drug Abuse Patient Records regulations: The Federal rules restrict any use of the information to criminally investigate or prosecute any alcohol or drug abuse patient.[facility] HospitalIn the event this information is protected by the Federal Confidentiality of Alcohol and Drug Abuse Patient Records regulations: The Federal rules restrict any use of the information to criminally investigate or prosecute any alcohol or drug abuse patient.[facility] HospitalIn the event this information is protected by the Federal Confidentiality of Alcohol and Drug Abuse Patient Records regulations: The Federal rules restrict any use of the information to criminally investigate or prosecute any alcohol or drug abuse patient.[facility] HospitalIn the event this information is protected by the Federal Confidentiality of Alcohol and Drug Abuse Patient Records regulations: The Federal rules restrict any use of the information to criminally investigate or prosecute any alcohol or drug abuse patient.[facility] HospitalIn the event this information is protected by the Federal Confidentiality of Alcohol and Drug Abuse Patient Records regulations: The Federal rules restrict any use of the information to criminally investigate or prosecute any alcohol or drug abuse patient.[facility] HospitalIn the event this information is protected by the Federal Confidentiality of Alcohol and Drug Abuse Patient Records regulations: The Federal rules restrict any use of the information to criminally investigate or prosecute any alcohol or drug abuse patient.[facility] HospitalIn the event this information is protected by the Federal Confidentiality of Alcohol and Drug Abuse Patient Records regulations: The Federal rules restrict any use of the information to criminally investigate or prosecute any alcohol or drug abuse patient.[facility] HospitalIn the event this information is protected by the Federal Confidentiality of Alcohol and Drug Abuse Patient Records regulations: The Federal rules restrict any use of the information to criminally investigate or prosecute any alcohol or drug abuse patient.[facility] HospitalIn the event this information is protected by the Federal Confidentiality of Alcohol and Drug Abuse Patient Records regulations: The Federal rules restrict any use of the information to criminally investigate or prosecute any alcohol or drug abuse patient.[facility] HospitalIn the event this information is protected by the Federal Confidentiality of Alcohol and Drug Abuse Patient Records regulations: The Federal rules restrict any use of the information to criminally investigate or prosecute any alcohol or drug abuse patient.[facility] HospitalIn the event this information is protected by the Federal Confidentiality of Alcohol and Drug Abuse Patient Records regulations: The Federal rules restrict any use of the information to criminally investigate or prosecute any alcohol or drug abuse patient.[facility] HospitalIn the event this information is protected by the Federal Confidentiality of Alcohol and Drug Abuse Patient Records regulations: The Federal rules restrict any use of the information to criminally investigate or prosecute any alcohol or drug abuse patient.[facility] HospitalIn the event this information is protected by the Federal Confidentiality of Alcohol and Drug Abuse Patient Records regulations: The Federal rules restrict any use of the information to criminally investigate or prosecute any alcohol or drug abuse patient.[facility] HospitalIn the event this information is protected by the Federal Confidentiality of Alcohol and Drug Abuse Patient Records regulations: The Federal rules restrict any use of the information to criminally investigate or prosecute any alcohol or drug abuse patient.[facility] HospitalIn the event this information is protected by the Federal Confidentiality of Alcohol and Drug Abuse Patient Records regulations: The Federal rules restrict any use of the information to criminally investigate or prosecute any alcohol or drug abuse patient.[facility] HospitalIn the event this information is protected by the Federal Confidentiality of Alcohol and Drug Abuse Patient Records regulations: The Federal rules restrict any use of the information to criminally investigate or prosecute any alcohol or drug abuse patient.[facility] HospitalIn the event this information is protected by the Federal Confidentiality of Alcohol and Drug Abuse Patient Records regulations: The Federal rules restrict any use of the information to criminally investigate or prosecute any alcohol or drug abuse patient.[facility] HospitalIn the event this information is protected by the Federal Confidentiality of Alcohol and Drug Abuse Patient Records regulations: The Federal rules restrict any use of the information to criminally investigate or prosecute any alcohol or drug abuse patient.[facility] HospitalIn the event this information is protected by the Federal Confidentiality of Alcohol and Drug Abuse Patient Records regulations: The Federal rules restrict any use of the information to criminally investigate or prosecute any alcohol or drug abuse patient.[facility] HospitalIn the event this information is protected by the Federal Confidentiality of Alcohol and Drug Abuse Patient Records regulations: The Federal rules restrict any use of the information to criminally investigate or prosecute any alcohol or drug abuse patient.[facility] HospitalIn the event this information is protected by the Federal Confidentiality of Alcohol and Drug Abuse Patient Records regulations: The Federal rules restrict any use of the information to criminally investigate or prosecute any alcohol or drug abuse patient.[facility] HospitalIn the event this information is protected by the Federal Confidentiality of Alcohol and Drug Abuse Patient Records regulations: The Federal rules restrict any use of the information to criminally investigate or prosecute any alcohol or drug abuse patient.[facility] HospitalIn the event this information is protected by the Federal Confidentiality of Alcohol and Drug Abuse Patient Records regulations: The Federal rules restrict any use of the information to criminally investigate or prosecute any alcohol or drug abuse patient.[facility] HospitalIn the event this information is protected by the Federal Confidentiality of Alcohol and Drug Abuse Patient Records regulations: The Federal rules restrict any use of the information to criminally investigate or prosecute any alcohol or drug abuse patient.[facility] HospitalIn the event this information is protected by the Federal Confidentiality of Alcohol and Drug Abuse Patient Records regulations: The Federal rules restrict any use of the information to criminally investigate or prosecute any alcohol or drug abuse patient.[facility] HospitalIn the event this information is protected by the Federal Confidentiality of Alcohol and Drug Abuse Patient Records regulations: The Federal rules restrict any use of the information to criminally investigate or prosecute any alcohol or drug abuse patient.[facility] HospitalIn the event this information is protected by the Federal Confidentiality of Alcohol and Drug Abuse Patient Records regulations: The Federal rules restrict any use of the information to criminally investigate or prosecute any alcohol or drug abuse patient.[facility] HospitalIn the event this information is protected by the Federal Confidentiality of Alcohol and Drug Abuse Patient Records regulations: The Federal rules restrict any use of the information to criminally investigate or prosecute any alcohol or drug abuse patient.[facility] HospitalIn the event this information is protected by the Federal Confidentiality of Alcohol and Drug Abuse Patient Records regulations: The Federal rules restrict any use of the information to criminally investigate or prosecute any alcohol or drug abuse patient.[facility] HospitalIn the event this information is protected by the Federal Confidentiality of Alcohol and Drug Abuse Patient Records regulations: The Federal rules restrict any use of the information to criminally investigate or prosecute any alcohol or drug abuse patient.[facility] HospitalIn the event this information is protected by the Federal Confidentiality of Alcohol and Drug Abuse Patient Records regulations: The Federal rules restrict any use of the information to criminally investigate or prosecute any alcohol or drug abuse patient.[facility] HospitalIn the event this information is protected by the Federal Confidentiality of Alcohol and Drug Abuse Patient Records regulations: The Federal rules restrict any use of the information to criminally investigate or prosecute any alcohol or drug abuse patient.[facility] HospitalIn the event this information is protected by the Federal Confidentiality of Alcohol and Drug Abuse Patient Records regulations: The Federal rules restrict any use of the information to criminally investigate or prosecute any alcohol or drug abuse patient.[facility] HospitalIn the event this information is protected by the Federal Confidentiality of Alcohol and Drug Abuse Patient Records regulations: The Federal rules restrict any use of the information to criminally investigate or prosecute any alcohol or drug abuse patient.[facility] HospitalIn the event this information is protected by the Federal Confidentiality of Alcohol and Drug Abuse Patient Records regulations: The Federal rules restrict any use of the information to criminally investigate or prosecute any alcohol or drug abuse patient.[facility] HospitalIn the event this information is protected by the Federal Confidentiality of Alcohol and Drug Abuse Patient Records regulations: The Federal rules restrict any use of the information to criminally investigate or prosecute any alcohol or drug abuse patient.[facility] HospitalIn the event this information is protected by the Federal Confidentiality of Alcohol and Drug Abuse Patient Records regulations: The Federal rules restrict any use of the information to criminally investigate or prosecute any alcohol or drug abuse patient.[facility] HospitalIn the event this information is protected by the Federal Confidentiality of Alcohol and Drug Abuse Patient Records regulations: The Federal rules restrict any use of the information to criminally investigate or prosecute any alcohol or drug abuse patient.[facility] HospitalIn the event this information is protected by the Federal Confidentiality of Alcohol and Drug Abuse Patient Records regulations: The Federal rules restrict any use of the information to criminally investigate or prosecute any alcohol or drug abuse patient.[facility] Reason for Visit (unrecogniz ed section and content) Reason Comments Physical needs medication ref ills; c/o snf covid effects, had covid 3x's; was not hospitalized Reason Comments Results Reason Comments Referral Request Reason Comments report from [facility] ER Reason Comments Chest Congestion cough, sore throat, bodyaches x 2 days Reason Comments urgent care follow up Reason Onset Date Comments Refill Request 03/28/2022 Reason Comments Diarrhea chills, gi upset, he adache and bodyaches x 1 day Reason Comments Pain (foot) x 4 days, hit wall w ith back of foot Reason Comments Recheck Medication follow up /refills Reason Comments ER F/U [facility] ER 01/02/23 dx: v iral gastroenteritis; pulmonary nodule Reason Comments Results Reason Comments Cough ST, diarrhea, bodyac hes x2 days Reason Comments Recheck Medication refills Reason Comments Consult colonoscopy Specialty Diagnoses / Procedures Referred By Corbin solre Referred To Contact General Surgery Diagnoses Screening for colon cancer Procedures CONSULT TO GENERAL SURGERY OFFICE/OUTPATIENT [facility] 60 MINUTES Keren Kwon, GERARDO.AGRICULTURAL RESEARCH TECHNICIAN [address] [place] [address] Referral ID Status Reason Start Date Expiration Date V isits Requested Visits Authorized [id number] Closed PCP Requested Referral 06/12/2024 06/12/2025 1 1 Reason Comments Elbow Injury Right, hit railing a t working, pain x 1 week Sore Throat X 1 week Reason Onset Date Comments Refill Request 07/10/2024 Reason Comments Sore Throat ST, bodyaches and na usea x 1 week Reason Onset Date Comments Refill Request 07/21/2024 Reason Comments ER F/U [facility] ER f/u 07/23/24 dx : L knee pain Reason Onset Date Comments Refill Request 08/19/2024 Reason Comments Results Reason Comments Recheck Follow up L knee gabrielle n Reason Comments Radiology US Specialty Diagnoses / Procedures Referred By Contac t Referred To Contact US IMAGING Diagnoses Elevated alkaline phosphatase level Procedures US ABD RIGHT UPPER QUADRANT US ABDOMINAL REAL TIME W/IMAGE LIMITED Keren Kwon, GERARDO.AGRICULTURAL RESEARCH TECHNICIAN [address] [place] [address] [place] [address] Referral ID Status Reason Start Date Expiration Date V isits Requested Visits Authorized [id number] Closed Auto-Generate d Referral 08/14/2024 09/13/2025 1 1 Reason Comments Recheck 1 week follow up Reason Comments Appointment Reason Comments Consult Elevated PSA Specialty Diagnoses / Procedures Referred By Contac t Referred To Contact Urology Diagnoses Elevated PSA Procedures CONSULT TO UROLOGY OFFICE/OUTPATIENT [facility] 60 MINUTES Keren Kwon, GERARDO.AGRICULTURAL RESEARCH TECHNICIAN [address] [place] [address] Phone: tel: fax: Referral ID Status Reason Start Date Expiration Date V isits Requested Visits Authorized [id number] Closed PCP Requested Referral 08/12/2024 08/12/2025 1 1 Reason Comments Follow Up 4 week BP Reason Onset Date Comments Refill Request 09/29/2024 Reason Onset Date Comments Refill Request 10/02/2024 Reason Comments Right elbow pain Specialty Diagnoses / Procedures Referred By Contac t Referred To Contact Orthopedics Diagnoses Elbow pain, right Procedures CONSULT TO ORTHOPAEDICS OFFICE/OUTPATIENT [facility] MDM 60 MINUTES Keren Kwon, [employer] MAKER.AGRICULTURAL RESEARCH TECHNICIAN [address] [place] [address] Phone: tel: fax: Referral ID Status Reason Start Date Expiration Date V isits Requested Visits Authorized [id number] Closed PCP Requested Referral 09/28/2024 09/28/2025 1 1 Reason Onset Date Comments Refill Request 11/24/2024 Reason Onset Date Comments Refill Request 12/22/2024 Reason Onset Date Comments Refill Request 01/19/2025 Reason Onset Date Comments Refill Request 02/01/2025 Reason Comments Flu Like Symptoms Upset stomach, dizzy and nausea, diarrhea x 3 days Care Teams (unrecognized sec tion and content) Graduation Coach Relationship Specialty Start Date End Date Keren Kwon, [employer]KER.AGRICULTURAL RESEARCH TECHNICIAN [address] [place] [address] PCP - General Family Practice 08/28/18 Graduation Coach Relationship Specialty Start Date End Date Keren Kwon, [employer] MAKER.AGRICULTURAL RESEARCH TECHNICIAN [address] [place] [address] PCP - General Family Practice 08/28/18 Graduation Coach Relationship Specialty Start Date End Date Keren Kwon, [employer] MAKER.AGRICULTURAL RESEARCH TECHNICIAN [address] [place] [address] PCP - General Family Practice 08/28/18 Graduation Coach Relationship Specialty Start Date End Date Keren Kwon, [employer] MAKER.AGRICULTURAL RESEARCH TECHNICIAN [address] [place] [address] PCP - General Family Practice 08/28/18 Graduation Coach Relationship Specialty Start Date End Date Keren Kwon, [employer] MAKER.AGRICULTURAL RESEARCH TECHNICIAN [address] [place] [address] PCP - General Family Practice 08/28/18 Graduation Coach Relationship Specialty Start Date End Date Keren Kwon, [employer] MAKER.AGRICULTURAL RESEARCH TECHNICIAN [address] [place] [address] PCP - General Family Practice 08/28/18 Graduation Coach Relationship Specialty Start Date End Date Keren Kwon, [employer] MAKER.AGRICULTURAL RESEARCH TECHNICIAN [address] [place] [address] PCP - General Family Practice 08/28/18 Graduation Coach Relationship Specialty Start Date End Date Haanne, Keren, [employer] MAKER.AGRICULTURAL RESEARCH TECHNICIAN [address] [place] [address] PCP - General Family Practice 08/28/18 Graduation Coach Relationship Specialty Start Date End Date Haanne, Keren, [employer] MAKER.AGRICULTURAL RESEARCH TECHNICIAN [address] [place] [address] PCP - General Family Practice 08/28/18 Graduation Coach Relationship Specialty Start Date End Date Haanne, Keren, [employer] MAKER.AGRICULTURAL RESEARCH TECHNICIAN [address] [place] [address] PCP - General Family Medicine 08/28/18 Graduation Coach Relationship Specialty Start Date End Date Doyle, Keren, [employer] MAKER.AGRICULTURAL RESEARCH TECHNICIAN [address] [place] [address] PCP - General Family Medicine 08/28/18 Graduation Coach Relationship Specialty Start Date End Date Nikolai, Keren, [employer] MAKER.AGRICULTURAL RESEARCH TECHNICIAN [address] [place] [address] PCP - General Family Medicine 08/28/18 Graduation Coach Relationship Specialty Start Date End Date Keren Kwon, [employer] MAKER.AGRICULTURAL RESEARCH TECHNICIAN [address] [place] [address] PCP - General Family Medicine 08/28/18 Team Status: Active Member Role Status Dates Keren Kwon HOSPITALITY AIDE, HOSPITALITY AIDE-C Family Provider Active Keren Kwon HOSPITALITY AIDE, HOSPITALITY AIDE-C Primary Care Provider Active Team Status: Inactive Member Role Status Dates Dr. Pema Yang MD Primary Care Provider, Refer ring Provider Active Min An HOSPITALITY AIDE, HOSPITALITY AIDE-C Active Vani Owen HOSPITALITY AIDE, HOSPITALITY AIDE-C Attending Provider Active Team Status: Inactive Member Role Status Dates Keren Kwon HOSPITALITY AIDE, HOSPITALITY AIDE-C Primary Care Provider, Referri ng Provider Active Dr. Alejandro Leon DO Attending Provider Active Team Status: Inactive Member Role Status Dates Dr. Abdoulaye Wesley MD Attending Provider, Emergency Provider Active Keren Kwon HOSPITALITY AIDE, HOSPITALITY AIDE-C Primary Care Provider Active Team Status: Inactive Member Role Status Dates Keren Kwon HOSPITALITY AIDE, HOSPITALITY AIDE-C Primary Care Provider Active Dr. Alejandro Leon , DO Attending Provider, Referring Pro vider Active Graduation Coach Relationship Specialty Start Date End Date , [employer].AGRICULTURAL RESEARCH TECHNICIAN [address] [place] [address] PCP - General Family Medicine 08/28/18 Team Status: Active Member Role Status Dates Vani Owen HOSPITALITY AIDE, HOSPITALITY AIDE-C Referring Provider, Other Provi silver Active Keren Kwon HOSPITALITY AIDE, HOSPITALITY AIDE-C Primary Care Provider Active Dr. Casey Brewer MD Attending Provider Active Team Status: Inactive Member Role Status Dates Vani Owen HOSPITALITY AIDE, HOSPITALITY AIDE-C Attending Provider, Referring P rovider Active Keren Kwon HOSPITALITY AIDE, HOSPITALITY AIDE-C Primary Care Provider Active Team Status: Inactive Member Role Status Dates Keren Kwon HOSPITALITY AIDE, HOSPITALITY AIDE-C Primary Care Provider, Referri ng Provider Active Dr. Casey Brewer MD Attending Provider Active Team Status: Active Member Role Status Dates Keren Kwon HOSPITALITY AIDE, HOSPITALITY AIDE-C Primary Care Provider Active Dr. Alejandro Leon , Referring Provider, Other Provide r Active Dr. Will Virk MD Attending Provider Active Graduation Coach Relationship Specialty Start Date End Date OctN.AGRICULTURAL RESEARCH TECHNICIAN [address] [place] [address] PCP - General Family Medicine 08/28/18 Graduation Coach Relationship Specialty Start Date End Date , [employer] MAKER.AGRICULTURAL RESEARCH TECHNICIAN [address] [place] [address] PCP - General Family Medicine 08/28/18 Team Status: Active Member Role Status Dates Keren Kwon HOSPITALITY AIDE, HOSPITALITY AIDE-C Primary Care Provider Active Dr. Maggy Tucker DO Emergency Provider Active Dr. Lorena Bennett DO Admit Provider, Attending Provide r Active Team Status: Active Member Role Status Dates Keren Kwon HOSPITALITY AIDE, HOSPITALITY AIDE-C Primary Care Provider Active Dr. Maggy Tucker , DO Emergency Provider Active Dr. Lorena Bennett , DO Admit Provider, Att ending Provider, Other Provider Active Team Status: Active Member Role Status Dates Keren Kwon HOSPITALITY AIDE, HOSPITALITY AIDE-C Primary Care Provider Active Dr. Maggy Tucker , Emergency Provider Active Dr. Lorena Bennett , DO Admit Provider, Other Provider Ac tive Dr. Shakeel Valera MD Attending Provider, Other Provider Active Team Status: Inactive Member Role Status Dates Keren Kwon HOSPITALITY AIDE, HOSPITALITY AIDE-C Primary Care Provider Active Dr. Maggy Tucker , Emergency Provider Active Dr. Lorena Bennett , DO Admit Provider, Other Provider Ac tive Dr. Shakeel Valera MD Attending Provider Active Team Status: Active Member Role Status Dates Keren Kwon HOSPITALITY AIDE, HOSPITALITY AIDE-C Family Provider Active No Primary Care Physician Primary Care Provider Active Team Status: Inactive Member Role Status Dates No Primary Care Physician Primary Care Provider Active Dr. Casey Brewer MD Attending Provider, Referring Pr ovider Active Graduation Coach Relationship Specialty Start Date End Date , [employer] MAKER.AGRICULTURAL RESEARCH TECHNICIAN [address] [place] [address] PCP - General Family Medicine 08/28/18 Graduation Coach Relationship Specialty Start Date End Date , [employer] MAKER.AGRICULTURAL RESEARCH TECHNICIAN [address] [place] [address] PCP - General Family Medicine 08/28/18 Graduation Coach Relationship Specialty Start Date End Date , [employer] MAKER.AGRICULTURAL RESEARCH TECHNICIAN [address] [place] [address] PCP - General Family Medicine 08/28/18 Graduation Coach Relationship Specialty Start Date End Date , FORTUNE COOKIE MAKER.AGRICULTURAL RESEARCH TECHNICIAN [address] [place] [address] PCP - General Family Medicine 08/28/18 Graduation Coach Relationship Specialty Start Date End Date , FORTUNE COOKIE MAKER.AGRICULTURAL RESEARCH TECHNICIAN [address] [place] [place] [address] PCP - General Family Medicine 08/28/18 Graduation Coach Relationship Specialty Start Date End Date Keren Kwon APRN.AGRICULTURAL RESEARCH TECHNICIAN [address] [place] [place] [address] PCP - General Family Medicine 08/28/18 Kathe Pierre, FORTUNE COOKIE MAKER.AGRICULTURAL RESEARCH TECHNICIAN [address] [place] [address] Scale Reclamation Tender Family Medicine 06/28/24 Mikhail Mancia MD [address] [place] [address] Scale Reclamation Tender Family Medicine 06/28/24 Graduation Coach Relationship Specialty Start Date End Date Keren Kwon, FORTUNE COOKIE MAKER.AGRICULTURAL RESEARCH TECHNICIAN [address] [place] [address] PCP - General Family Medicine 08/28/18 Kathe Pierre FORTUNE COOKIE MAKER.AGRICULTURAL RESEARCH TECHNICIAN [address] [place] [address] Scale Reclamation Tender Family Medicine 06/28/24 Mikhail Mancia MD [address] [place] [address] Scale Reclamation Tender Family Medicine 06/28/24 Graduation Coach Relationship Specialty Start Date End Date Keren Kwon APRN.AGRICULTURAL RESEARCH TECHNICIAN [address] [facility] [place] [address] PCP - General Family Medicine 08/28/18 Kathe Pierre FORTUNE COOKIE MAKER.AGRICULTURAL RESEARCH TECHNICIAN [address] [place] [address] Scale Reclamation Tender Family Medicine 06/28/24 Mikhail Mancia MD [address] [place] [address] Scale Reclamation Tender Family Medicine 06/28/24 Graduation Coach Relationship Specialty Start Date End Date Keren Kwon APRN.AGRICULTURAL RESEARCH TECHNICIAN [address] [facility] [place] [address] PCP - General Family Medicine 08/28/18 Kathe Pierre APRN.AGRICULTURAL RESEARCH TECHNICIAN [address] [place] [address] Scale Reclamation Tender Family Medicine 06/28/24 Mikhail Mancia MD [address] [place] [address] Scale Reclamation Tender Family Medicine 06/28/24 Graduation Coach Relationship Specialty Start Date End Date Keren Kwon APRN.AGRICULTURAL RESEARCH TECHNICIAN [address] [facility] [place] [address] PCP - General Family Medicine 08/28/18 Kathe Pierre FORTUNE COOKIE MAKER.AGRICULTURAL RESEARCH TECHNICIAN [address] [place] [address] Scale Reclamation Tender Family Medicine 06/28/24 Mikhail Mancia MD [address] [place] [address] Scale Reclamation Tender Family Medicine 06/28/24 Graduation Coach Relationship Specialty Start Date End Date Keren Kwon FORTUNE COOKIE MAKER.AGRICULTURAL RESEARCH TECHNICIAN [address] [place] [address] PCP - General Family Medicine 08/28/18 Kathe Pierre, FORTUNE COOKIE MAKER.AGRICULTURAL RESEARCH TECHNICIAN [address] [place] [address] Scale Reclamation Tender Family Medicine 06/28/24 Mikhail Mancia MD [address] [place] [address] Scale Reclamation Tender Family Medicine 06/28/24 Graduation Coach Relationship Specialty Start Date End Date Keren Kwon, FORTUNE COOKIE MAKER.AGRICULTURAL RESEARCH TECHNICIAN [address] [facility] [place] [address] PCP - General Family Medicine 08/28/18 Kathe Pierre, FORTUNE COOKIE MAKER.AGRICULTURAL RESEARCH TECHNICIAN [address] [place] [address] Scale Reclamation Tender Family Medicine 06/28/24 Mikhail Mancia MD [address] [facility] [address] Scale [facility] 06/28/24 Graduation Coach Relationship Specialty Start Date End Date Keren Kwon, FORTUNE COOKIE MAKER.AGRICULTURAL RESEARCH TECHNICIAN [address] [facility] [place] [address] PCP - General Family Medicine 08/28/18 Kathe Pierre, FORTUNE COOKIE MAKER.AGRICULTURAL RESEARCH TECHNICIAN [address] [place] [address] Scale Reclamation Tender Family Medicine 06/28/24 Mikhail Mancia MD [address] [place] [address] Scale Reclamation Tender Family Medicine 06/28/24 Graduation Coach Relationship Specialty Start Date End Date Haagen, Keren, FORT[employer]E COOKIE MAKER.AGRICULTURAL RESEARCH TECHNICIAN [address] [place] [address] PCP - General Family Medicine 08/28/18 Kathe Pierre FORTUNE COOKIE MAKER.AGRICULTURAL RESEARCH TECHNICIAN [address] [place] [address] Scale Reclamation Tender Family Medicine 06/28/24 Mikhail Mancia MD [address] [place] [address] Scale [facility] 06/28/24 Graduation Coach Relationship Specialty Start Date End Date Keren Kwon, FORTUNE COOKIE MAKER.AGRICULTURAL RESEARCH TECHNICIAN [address] [place] [place] [address] PCP - General Family Medicine 08/28/18 Kathe Pierre, FORTUNE COOKIE MAKER.AGRICULTURAL RESEARCH TECHNICIAN [address] [place] [address] Scale Reclamation Tender Family Medicine 06/28/24 Mikhail Mancia MD [address] [place] [address] Scale Reclamation Tender Family Medicine 06/28/24 Graduation Coach Relationship Specialty Start Date End Date Keren Kwon, FORTUNE COOKIE MAKER.AGRICULTURAL RESEARCH TECHNICIAN [address] [place] [address] PCP - General Family Medicine 08/28/18 Kathe Pierre FORTUNE COOKIE MAKER.AGRICULTURAL RESEARCH TECHNICIAN [address] [place] [address] Scale Reclamation Tender Family Medicine 06/28/24 Mikhail Mancia MD [address] [place] [address] Scale Reclamation Tender Family Medicine 06/28/24 Graduation Coach Relationship Specialty Start Date End Date Keren Kwon APRN.AGRICULTURAL RESEARCH TECHNICIAN [address] [place] [address] PCP - General Family Medicine 08/28/18 Kathe Pierre APRN.AGRICULTURAL RESEARCH TECHNICIAN [address] [place] [address] Scale Reclamation Tender Family Medicine 06/28/24 Mikhail Mancia MD [address] [place] [address] Scale Reclamation Tender Family Medicine 06/28/24 Graduation Coach Relationship Specialty Start Date End Date Keren Kwon APRN.AGRICULTURAL RESEARCH TECHNICIAN [address] [place] [address] PCP - General Family Medicine 08/28/18 Kathe Pierre APRN.AGRICULTURAL RESEARCH TECHNICIAN [address] [place] [address] Scale Reclamation Tender Family Medicine 06/28/24 Mikhail Mancia MD [address] [place] [address] Scale Reclamation Tender Family Medicine 06/28/24 Graduation Coach Relationship Specialty Start Date End Date Keren Kwon APRN.AGRICULTURAL RESEARCH TECHNICIAN [address] [place] [address] PCP - General Family Medicine 08/28/18 Kathe Pierre APRN.AGRICULTURAL RESEARCH TECHNICIAN [address] [place] [address] Scale Reclamation Tender Family Medicine 06/28/24 Mikhail Mancia MD [address] [place] [address] Scale Reclamation Tender Family Medicine 06/28/24 Graduation Coach Relationship Specialty Start Date End Date Keren Kwon APRN.AGRICULTURAL RESEARCH TECHNICIAN [address] [place] [address] PCP - General Family Medicine 08/28/18 Kathe Pierre FORTUNE COOKIE MAKER.AGRICULTURAL RESEARCH TECHNICIAN [address] [place] [address] Scale Reclamation Tender Family Medicine 06/28/24 Mikhail Mancia MD [address] [place] [address] Scale Reclamation Tender Family Medicine 06/28/24 Graduation Coach Relationship Specialty Start Date End Date Keren Kwon, FORTUNE COOKIE MAKER.AGRICULTURAL RESEARCH TECHNICIAN [address] [facility] [place] [address] PCP - General Family Medicine 08/28/18 Kathe Pierre FORTUNE COOKIE MAKER.AGRICULTURAL RESEARCH TECHNICIAN [address] [place] [address] Scale Reclamation Tender Family Medicine 06/28/24 Mikhail Mancia MD [address] [place] [address] Scale Reclamation Tender Family Medicine 06/28/24 Graduation Coach Relationship Specialty Start Date End Date Keren Kwon, FORTUNE COOKIE MAKER.AGRICULTURAL RESEARCH TECHNICIAN [address] [facility] [place] [address] PCP - General Family Medicine 08/28/18 Kathe Pierre FORTUNE COOKIE MAKER.AGRICULTURAL RESEARCH TECHNICIAN [address] [place] [address] Scale Reclamation Tender Family Medicine 06/28/24 Mikhail Mancia MD [address] [place] [address] Scale Reclamation Tender Family Medicine 06/28/24 Graduation Coach Relationship Specialty Start Date End Date Keren Kwno APRN.AGRICULTURAL RESEARCH TECHNICIAN [address] [place] [address] PCP - General Family Medicine 08/28/18 Kathe Pierre FORTUNE COOKIE MAKER.AGRICULTURAL RESEARCH TECHNICIAN [address] [place] [address] Scale Reclamation Tender Family Medicine 06/28/24 Mikhail Mancia MD [address] [place] [address] Scale [facility]clamation [facility] 06/28/24 Graduation Coach Relationship Specialty Start Date End Date Keren Kwon APRN.AGRICULTURAL RESEARCH TECHNICIAN [address] [place] [address] PCP - General Family Medicine 08/28/18 Kathe Pierre FORTUNE COOKIE MAKER.AGRICULTURAL RESEARCH TECHNICIAN [address] [place] [address] Scale Reclamation Tender Family Medicine 06/28/24 Mikhail Mancia MD [address] [place] [address] Scale Reclamation Tender Family Medicine 06/28/24 Graduation Coach Relationship Specialty Start Date End Date Keren Kwon APRN.AGRICULTURAL RESEARCH TECHNICIAN [address] [place] [address] PCP - General Family Medicine 08/28/18 Kathe Pierre, FORTUNE COOKIE MAKER.AGRICULTURAL RESEARCH TECHNICIAN [address] [place] [address] Scale Reclamation Tender Family Medicine 06/28/24 Mikhail Mancia MD [address] [place] [address] Scale Reclamation Tender Family Medicine 06/28/24 Graduation Coach Relationship Specialty Start Date End Date Keren Kwon, FORTUNE COOKIE MAKER.AGRICULTURAL RESEARCH TECHNICIAN [address] [place] [address] PCP - General Family Medicine 08/28/18 Graduation Coach Relationship Specialty Start Date End Date Keren Kwon, FORTUNE COOKIE MAKER.AGRICULTURAL RESEARCH TECHNICIAN [address] [place] [address] PCP - General Family Medicine 08/28/18 Kathe Pierre, FORTUNE COOKIE MAKER.AGRICULTURAL RESEARCH TECHNICIAN [address] [place] [address] Scale Reclamation Tender Family Medicine 06/28/24 10/12/24 Mikhail Mancia MD [address] [place] [address] Scale Reclamation Tender Family Medicine 06/28/24 10/12/24 Graduation Coach Relationship Specialty Start Date End Date Keren Kwon APRN.AGRICULTURAL RESEARCH TECHNICIAN [address] [place] [address] PCP - General Family Medicine 08/28/18 Graduation Coach Relationship Specialty Start Date End Date Keren Kwon, FORTUNE COOKIE MAKER.AGRICULTURAL RESEARCH TECHNICIAN [address] [place] [address] PCP - General Family Medicine 08/28/18 Graduation Coach Relationship Specialty Start Date End Date Keren Kwon, FORTUNE COOKIE MAKER.AGRICULTURAL RESEARCH TECHNICIAN [address] [place] [address] PCP - General Family Medicine 08/28/18 Goals [...] BE BASED ON THE PRIMARY CLINICAL RECORDS. [employer] [facility]. provides no warranty or guarantee of the accuracy or completeness of information in this document.
[2025-03-03 22:20] LABS: Mucous, Urine 0 SEEN /hpf (<or=2+); Red Blood Cells-Urine 0 SEEN /hpf (0-5)
[2025-03-03 22:25] LABS: Color, Urine Straw (Yellow); Glucose, Dipstick Normal (Normal); Ketone-Dipstick Negative (Negative); Leukocyte Esterase-Dipstick Negative /ul (Negative); Nitrite-Dipstick Negative (Negative); Occult Blood-Urine Negative /ul (Negative); Protein-Dipstick 15 mg/dl (Negative); Specific Gravity, Urine 1.010 (1.002-1.030); Urine Bilirubin Dipstick Negative (Negative)
[2025-03-03 22:34] LABS: Troponin T High Sens 2 HR 11 ng/L (<=22)
[2025-03-03 22:36] LABS: Magnesium 2.0 mg/dL (1.5-2.2)
[2025-03-03 22:46] LABS: Squamous Epithelial Cells - UA 0-5 SEEN /hpf (0-5)
[2025-03-03] MEDS: 0.9% Saline Lock 10 ML Syringe IV (22:51)
[2025-03-03] MEDS: Heparin Injection (Vial) 5,000 UNIT/ML VIAL 5000 UNIT SC (22:51)
[2025-03-04] VITALS (9 sets, daily range): BP systolic 106–128; BP diastolic 66–79; PULSE 82–94; RESP 16–18; TEMP 36.5–37.3; O2SAT 95–98; BMI 31.5
[2025-03-04 00:04] LABS: Troponin T High Sens 4 HR 11 ng/L (<=22)
[2025-03-04] MEDS: 0.9% Normal Saline (1000mL) 1,000 ML 200 ML IV (03:57)
[2025-03-04 06:48] LABS: Hematocrit 34.5 % (40-54); Hemoglobin 12.0 g/dL (13.0-16.5); Immature Granulocytes Count 0.020 X10^3/uL (0.0-0.0); Mean Corp Hgb Conc 34.8 g/dL (32-36); Mean Corpuscular Volume 90.6 fL (80-94); Mean Platelet Vol. 10.8 fl (6.2-12.0); NRBC Flagged by Analyzer 0 % (0-5); Platelet Count 104 K/mm3 (150-450); RBC Distribution Width CV 12.0 % (11.6-14.6); RBC Distribution Width SD 39.6 fl (35.1-43.9); Red Blood Count 3.81 M/mm3 (4.6-6.2); White Blood Count 7.0 K/mm3 (4.4-11.0)
[2025-03-04 07:26] LABS: CPK Total, Creatine Kinase 484 U/L (24-195)
[2025-03-04 07:27] LABS: AST(SGOT) 32 U/L (<=37); Alanine Aminotransfer ALT/SGPT 19 U/L (<=46); Albumin, Serum 3.8 g/dL (3.5-5.0); Alkaline Phosphatase 85 U/L (40-129); Anion Gap 12 (5-15); BUN 36 mg/dL (4-19); BUN/Creat Ratio 9.7 RATIO (10-20); Calcium,Total 7.8 mg/dL (7.6-11.0); Carbon Dioxide 19.1 mmol/L (21.0-32.0); Chloride 102 mmol/L (98-108); Estimated Creatinine Clearance 25.97 ml/min (50-250); Globulin 2.0 g/dL (2.2-4.2); Glucose 102 mg/dL (70-99); Potassium 4.7 mmol/L (3.3-5.1)
[2025-03-04] MEDS: Heparin Injection (Vial) 5,000 UNIT/ML VIAL 5000 UNIT SC ×2 (08:19→22:56)
[2025-03-04] MEDS: Magnesium Chloride 64 MG Delay Rel.Tablet 128 MG PO (08:19)
[2025-03-04] MEDS: Thiamine Hydrochloride 100 MG Tablet PO (08:30)
--- NOTE | 2025-03-04 10:47 | PCM.PN.HOSP ---
Reason for Visit Chief Complaint: Chest Pain, Headache, Dizziness and Exhaustion. Objective Data Objective Data Vital Signs: Vital Signs Temp Pulse Resp BP Pulse Ox O2 Del Method 98.0 F 83 16 124/66 H 98 Room Air 03/04/25 08:15 03/04/25 08:15 03/04/25 08:15 03/04/25 08:15 03/04/25 08:15 03/04/25 08:30 Oxygen Delivery Method Room Air Weight: 219 lb 12.814 oz Body Mass Index (BMI) 31.5 Intake & Output: Intake and Output for Last 24 Hours 03/02/25 03/03/25 03/04/25 23:59 23:59 23:59 Intake Total 2856.67 / 2856.67 2100 / 2100 Output Total 300 / 300 900 / 900 Balance 2556.67 / 2556.67 1200 / 1200 Lab / Micro Data 03/04/25 06:10 03/04/25 06:10 Labs: Laboratory Results - last 24 hr 03/03/25 19:25: WBC 15.2 H, RBC 4.52 L, Hgb 14.5, Hct 39.9 L, MCV 88.3, MCH 32.1 H, MCHC 36.3 H, RDW Std Deviation 39.5, RDW Coeff of Rosalee 12.2, Plt Count 156, MPV 10.3, Immature Gran % (Auto) 0.300, Neut % (Auto) 67.7, Lymph % (Auto) 22.6, [place] % (Auto) 8.0, Eos % (Auto) 1.2, Baso % (Auto) 0.2, Absolute Neuts (auto) 10.3 H, Absolute Lymphs (auto) 3.44, Nucleated RBC % 0, Sodium 130 L, Potassium 3.7, Chloride 91 L, Carbon Dioxide 16.4 L, Anion Gap 23 H, BUN 42 H, Creatinine 5.32 H, Estim Creat Clear Calc 17.79 L, Est GFR (MDRD) Non-Af 12 L, BUN/Creatinine Ratio 8.0 L, Glucose 80, Calcium 9.1, Magnesium 2.0, Total Creatine Kinase 825 H, Troponin T High Sens 13 03/03/25 21:13: Ethyl Alcohol 117.0 H 03/03/25 21:59: Troponin T Hi Sens 2 Hr 11 03/03/25 22:02: Urine Color Straw, Urine Clarity Clear, Urine pH 6.0, Ur Specific Troy 1.010, Urine Protein 15 H, Urine Glucose (UA) Normal, Urine Ketones Negative, Urine Occult Blood Negative, Urine Nitrite Negative, Urine Bilirubin Negative, Urine Urobilinogen Normal, Ur Leukocyte Esterase Negative, Urine RBC 0 SEEN, Urine WBC 0-5 SEEN, Ur Squamous Epith Cells 0-5 SEEN, Urine Bacteria 0 SEEN, Urine Mucus 0 SEEN 03/03/25 23:30: Troponin T Hi Sens 4Hr 11, TSH 1.110 03/04/25 06:10: WBC 7.0, RBC 3.81 L, Hgb 12.0 L, Hct 34.5 L, MCV 90.6, MCH 31.5, MCHC 34.8, RDW Std Deviation 39.6, RDW Coeff of Rosalee 12.0, Plt Count 104 L, MPV 10.8, Immature Gran % (Auto) 0.300, Neut % (Auto) 62.4, Lymph % (Auto) 28.2, [place] % (Auto) 7.6, Eos % (Auto) 1.4, Baso % (Auto) 0.1, Absolute Neuts (auto) 4.3, Absolute Lymphs (auto) 1.96, Nucleated RBC % 0, Sodium 134, Potassium 4.7, Chloride 102, Carbon Dioxide 19.1 L, Anion Gap 12, BUN 36 H, Creatinine 3.67 H, Estim Creat Clear Calc 25.97 L, Est GFR (MDRD) Non-Af 18 L, BUN/Creatinine Ratio 9.7 L, Glucose 102 H, Calcium 7.8, Phosphorus 3.3, Total Bilirubin 1.04, AST 32, ALT 19, Alkaline Phosphatase 85, Total Creatine Kinase 484 H, Total Protein 5.8 L, Albumin 3.8, Globulin 2.0 L, Albumin/Globulin Ratio 1.9 Micro: Microbiology 03/04/25 08:43 Stool Clostridioides difficile (PCR) - Final Radiography Diagnostic Testing: Radiology Impression Brain CT 03/03/25 20:24 IMPRESSION: No acute intracranial abnormality. Reading Location: [facility] Chest X-Ray 03/03/25 21:30 IMPRESSION: No acute chest findings. Reading Location: [place] [address] Physical Exam Narrative Complaint of nausea and bloating sensation. He also had headache. Had about 4.5 L of IV fluid and 200 mL urine output. Had cough about a week ago and went to urgent care but now it is cleared up. Patient also drinks alcohol though he has cut. Last GI office visit was September 2024. Last hospital admission for alcohol withdrawal was April 2023. Patient having diarrhea. Physical exam General: Alert, Oriented x3, Cooperative HEENT: Atraumatic, PERRLA, EOMI, Normocephalic. Oral: No Gingival or Mucosal Lesions/ Ulcerations Neck: Supple, No JVD, Negative Carotid Bruits Chest wall/Lungs: Air entry diminished in bilateral lung bases. No crepitation/rhonchi Cardiovascular: Regular rate and rhythm, Normal S1,S2, No M/G/R Abdomen: Bowel Sounds Present, Soft, mild tenderness bilateral left more than right. : No dysuria. No renal angle tenderness. No suprapubic tenderness. Extremities: No edema, Capillary Refill Less than 3 Seconds Skin: No rashes, No breakdown Musculoskeletal: No Tenderness to Palpation of Joints or Extremities Neurological: Cranial nerves II-XII grossly intact, DTR 2+/4. No acute focal neurological deficit. Psych/Mental Status: Normal Affect, Appropriate. Assessment & Plan Assessment/Plan (1) LUZ MARIA (acute kidney injury): (2) Rhabdomyolysis: QUALIFIERS: Rhabdomyolysis type: non-traumatic Qualified Code(s): M62.82 - Rhabdomyolysis (3) Leukocytosis: QUALIFIERS: Leukocytosis type: unspecified Qualified Code(s): D72.829 - Elevated white blood cell count, unspecified (4) Diarrhea: QUALIFIERS: Diarrhea type: presumed infectious Qualified Code(s): R19.7 - Diarrhea, unspecified (5) Adverse drug reaction: QUALIFIERS: Encounter type: initial encounter Qualified Code(s): T50.905A - Adverse effect of unspecified drugs, medicaments and biological substances, initial encounter (6) Hyponatremia: (7) History of non-ST elevation myocardial infarction (NSTEMI): (8) Obesity (BMI 30.0-34.9): (9) Hepatic steatosis: (10) AAORN (obstructive sleep apnea): PLAN: Plan 53 gentleman was admitted with symptoms of dizziness, headache, chest pain that started yesterday after he left work. He felt like he had heatstroke as involved 4 days yesterday, heavy labor. He has been drinking water. Was not evaluated yesterday. 1. Severe LUZ MARIA; in the setting of CKD; stage IIIa with elevated serum creatinine of 5.32 mg/dL with BUN of 42 mg/dL and eGFR of 12 mL/min (up from his baseline of 1.49 mg/dL with a BUN of 12 mg/dL and eGFR of 52 mL/min on last evaluation) - Admit to PCU. Patient had about 4.5 to 5 L of IV fluid. Urine is light yellow and adequate. Avoid potentially nephrotoxic medications. Hold lisinopril. 2. Elevated total creatinine kinase of 825 units/L: Patient had concern of heat exhaustion though he does not meet criteria for a true stroke. Follow-up CK shows improvement. 3. Concern for acute alcohol withdrawal with reactive leukocytosis of 15.2 K present on admission with Nonbloody Diarrhea exacerbating volume depletion: Stool studies were negative for C. difficile and enteric pathogen panel. Stool for lactoferrin positive. Most likely noninfectious diarrhea with concern of acute alcohol withdrawal. Patient drinks more than 3 drinks per day mainly beer. Serum alcohol was elevated, 117 on admission. 5. Hyponatremia of 130 mmol/L (down from 137 mmol/L on last evaluation) -repeat sodium is 134. 6. CAD; s/p NSTEMI with subsequent LCX stent (2018) on BASA daily plus prn SL NTG. Hold BASA Continue prn SL NTG. 7. Obesity (class I); with BMI of 31.1 this admission plus AARON and Hepatic Steatosis - Weight loss will be recommended. Check TSH. Resume nocturnal CPAP. This complicates his case and may hamper recovery. 8. History of EtOH abuse; patient admits to only one drink today because he was nervous but denies chronic EtOH abuse on folate and cyanocobalamin supplements - Noted. Maintain supplementation. 9. Essential hypertension; on lisinopril and carvedilol BID: Continue carvedilol. Hold lisinopril 10. Hyperlipidemia; on atorvastatin - Hold statin with possible superimposed myotoxicity. 11. History of CHF - Stable with no signs of volume overload at this time. 12. History of TIA; with known carotid artery disease - Stable. 13. Former tobacco abuse; with subsequent asthma/COPD - Stable with no evidence of acute flare at this time. Continue scheduled and as needed nebulizers/inhalers. 14. History of thrombocytopenia - Stable with platelet count 100 56K present on admission. Depression; with history of suicidal ideation on buspirone TID and trazodone q. HS - Maintain home regimen. GERD; on omeprazole - Continue PPI. Chronic OA - Give acetaminophen prn as outlined in #1. DVT prophylaxis - Heparin 5,000U sq BID plus SCD's. Microbiology Past 72 Hours 03/04/25 08:43 Stool Stool Lactoferrin - Final 03/04/25 08:43 Stool Enteric Bacteriology - Final 03/04/25 08:43 Stool Clostridioides difficile (PCR) - Final Laboratory Results 03/03/25 19:25: WBC 15.2 H, RBC 4.52 L, Hgb 14.5, Hct 39.9 L, MCV 88.3, MCH 32.1 H, MCHC 36.3 H, RDW Std Deviation 39.5, RDW Coeff of Rosalee 12.2, Plt Count 156, MPV 10.3, Immature Gran % (Auto) 0.300, Neut % (Auto) 67.7, Lymph % (Auto) 22.6, [place] % (Auto) 8.0, Eos % (Auto) 1.2, Baso % (Auto) 0.2, Absolute Neuts (auto) 10.3 H, Absolute Lymphs (auto) 3.44, Nucleated RBC % 0, Sodium 130 L, Potassium 3.7, Chloride 91 L, Carbon Dioxide 16.4 L, Anion Gap 23 H, BUN 42 H, Creatinine 5.32 H, Estim Creat Clear Calc 17.79 L, Est GFR (MDRD) Non-Af 12 L, BUN/Creatinine Ratio 8.0 L, Glucose 80, Calcium 9.1, Magnesium 2.0, Total Creatine Kinase 825 H, Troponin T High Sens 13 03/03/25 21:13: Ethyl Alcohol 117.0 H 03/03/25 21:59: Troponin T Hi Sens 2 Hr 11 03/03/25 22:02: Urine Color Straw, Urine Clarity Clear, Urine pH 6.0, Ur Specific [place] 1.010, Urine Protein 15 H, Urine Glucose (UA) Normal, Urine Ketones Negative, Urine Occult Blood Negative, Urine Nitrite Negative, Urine Bilirubin Negative, Urine Urobilinogen Normal, Ur Leukocyte Esterase Negative, Urine RBC 0 SEEN, Urine WBC 0-5 SEEN, Ur Squamous Epith Cells 0-5 SEEN, Urine Bacteria 0 SEEN, Urine Mucus 0 SEEN 03/03/25 23:30: Troponin T Hi Sens 4Hr 11, TSH 1.110 03/04/25 06:10: WBC 7.0, RBC 3.81 L, Hgb 12.0 L, Hct 34.5 L, MCV 90.6, MCH 31.5, MCHC 34.8, RDW Std Deviation 39.6, RDW Coeff of Rosalee 12.0, Plt Count 104 L, MPV 10.8, Immature Gran % (Auto) 0.300, Neut % (Auto) 62.4, Lymph % (Auto) 28.2, [place] % (Auto) 7.6, Eos % (Auto) 1.4, Baso % (Auto) 0.1, Absolute Neuts (auto) 4.3, Absolute Lymphs (auto) 1.96, Nucleated RBC % 0, Sodium 134, Potassium 4.7, Chloride 102, Carbon Dioxide 19.1 L, Anion Gap 12, BUN 36 H, Creatinine 3.67 H, Estim Creat Clear Calc 25.97 L, Est GFR (MDRD) Non-Af 18 L, BUN/Creatinine Ratio 9.7 L, Glucose 102 H, Calcium 7.8, Phosphorus 3.3, Total Bilirubin 1.04, AST 32, ALT 19, Alkaline Phosphatase 85, Total Creatine Kinase 484 H, Total Protein 5.8 L, Albumin 3.8, Globulin 2.0 L, Albumin/Globulin Ratio 1.9 Clinical Impression(s) from Imaging Studies Brain CT 03/03/25 20:24 IMPRESSION: No acute intracranial abnormality. Reading Location: [id number] Chest X-Ray 03/03/25 21:30 IMPRESSION: No acute chest findings. Reading Location: [place] [address] Charges/Coding Visit Charges Inpatient E&M: 69164 Subs Hosp L2
[2025-03-04] MEDS: Lactobacillis Acidophilus 1 CAP PO ×2 (15:47→22:56)
[2025-03-04 18:20] LABS: Prothrombin Time (Protime)PT. 13.5 SECONDS (11.7-14.9)
[2025-03-04] MEDS: 0.9% Saline Lock 10 ML Syringe IV (19:58)
[2025-03-05 03:00] VITALS: BP 110/80; PULSE 86; RESP 16; TEMP 36.9; O2SAT 99
[2025-03-05 04:56] VITALS: BMI 31.3
[2025-03-05 06:40] VITALS: BP 124/82; PULSE 80; RESP 16; TEMP 37.1; O2SAT 98
[2025-03-05] MEDS: Lactobacillis Acidophilus 1 CAP PO (08:31)
[2025-03-05] MEDS: Thiamine Hydrochloride 100 MG Tablet PO (08:31)
[2025-03-05] MEDS: Heparin Injection (Vial) 5,000 UNIT/ML VIAL 5000 UNIT SC (08:32)
[2025-03-05] MEDS: Magnesium Chloride 64 MG Delay Rel.Tablet 128 MG PO (08:33)
--- NOTE | 2025-03-05 09:48 | DCINST_ITS ---
Discharge Instructions DC O2, CPAP, BIPAP needs Home O2 Discharge instructions: No Follow Up Care Test Results: Test results from this visit will be discussed in further detail at your follow- up appointment, if applicable. Discharge Plan Admission Admit Date/Time: 03/03/25 21:48 Primary Reason for Your Visit: LUZ MARIA, mild rhabdomyolysis Attending Provider: Jatin Mcgraw Primary Care Provider: Keren Kwon NP Consulting Providers: Benigno Murillo Discharge Orders/Prescriptions Prescriptions: Continued nitroglycerin 0.4 mg tablet, sublingual 0.4 mg SUBLINGUAL Q5M PRN (Reason: Chest Pain) Qty: 25 3RF trazodone 50 mg tablet 100 mg PO QHS magnesium oxide 400 mg (241.3 mg magnesium) tablet 400 mg PO DAILY thiamine HCl (vitamin B1) 100 mg tablet 100 mg PO DAILY folic acid 1 mg tablet 1 mg PO DAILY buspirone 7.5 mg tablet 7.5 mg PO TID carvedilol 25 mg tablet 25 mg PO BID Rx Instructions: must administer with a meal/food omeprazole 20 MG capsule 20 mg PO DAILY Patient Comments: REFLUX cyclobenzaprine 10 mg tablet 10 mg PO DAILY PRN (Reason: Pain) multivitamin [Daily Multi-Vitamin] Tablet 1 tab PO DAILY cyanocobalamin (vitamin B-12) [Vitamin B-12] 100 mcg tablet 100 mcg PO DAILY aspirin 81 mg tablet,delayed release (DR/EC) 81 mg PO DAILY Qty: 90 3RF Held lisinopril 10 mg tablet 10 mg PO QDAY Hold Instructions: Hold for week follow-up with BMP PCP before resumption. atorvastatin 40 mg tablet 40 mg PO QHS Qty: 90 3RF Hold Instructions: Hold for 7 days Referrals / Follow Up: Keren Kwon NP, [employer] SALES DIRECTOR-C [Primary Care Provider] - Disposition Disposition (needs filled in before D/C Order can be placed): Home, Self Care
--- NOTE | 2025-03-05 09:52 | DS.PCM_ITS ---
Providers Date of Admission: 03/03/25 Date of Discharge: 03/05/25 Primary Care Physician: XUAN Armendariz Reason For Visit: SEVERE LUZ MARIA, MYOTOXICITY AFTER EXERTION IN HEAT, Diagnosis Discharge Diagnosis (1) LUZ MARIA (acute kidney injury): Status: Acute Code(s): N17.9 - Acute kidney failure, unspecified (2) Rhabdomyolysis: Status: Acute Code(s): M62.82 - Rhabdomyolysis Qualifiers: Rhabdomyolysis type: non-traumatic Qualified Code(s): M62.82 - Rhabdomyolysis (3) Leukocytosis: Status: Acute Code(s): D72.829 - Elevated white blood cell count, unspecified Qualifiers: Leukocytosis type: unspecified Qualified Code(s): D72.829 - Elevated white blood cell count, unspecified (4) Diarrhea: Status: Acute Code(s): R19.7 - Diarrhea, unspecified Qualifiers: Diarrhea type: presumed infectious Qualified Code(s): R19.7 - Diarrhea, unspecified (5) Adverse drug reaction: Status: Acute Code(s): T50.905A - Adverse effect of unspecified drugs, medicaments and biological substances, initial encounter Qualifiers: Encounter type: initial encounter Qualified Code(s): T50.905A - Adverse effect of unspecified drugs, medicaments and biological substances, initial encounter (6) Hyponatremia: Status: Acute Code(s): E87.1 - Hypo-osmolality and hyponatremia (7) History of non-ST elevation myocardial infarction (NSTEMI): Status: Resolved Code(s): I25.2 - Old myocardial infarction (8) Obesity (BMI 30.0-34.9): Status: Acute Code(s): E66.811 - Obesity, class 1 (9) Hepatic steatosis: Status: Acute Code(s): K76.0 - Fatty (change of) liver, not elsewhere classified (10) AARON (obstructive sleep apnea): Status: Acute Code(s): G47.33 - Obstructive sleep apnea (adult) (pediatric) Plan 53 gentleman was admitted with symptoms of dizziness, headache, chest pain that started yesterday after he left work. He felt like he had heatstroke as involved 4 days yesterday, heavy labor. He has been drinking water. Was not evaluated yesterday. 1. Severe LUZ MARIA; in the setting of CKD; stage IIIa with elevated serum creatinine of 5.32 mg/dL with BUN of 42 mg/dL and eGFR of 12 mL/min (up from his baseline of 1.49 mg/dL with a BUN of 12 mg/dL and eGFR of 52 mL/min on last evaluation) - Admit to PCU. Patient had about 4.5 to 5 L of IV fluid. Urine is light yellow and adequate. Avoid potentially nephrotoxic medications. Hold lisinopril. 03/05: Creatinine continues to be improved from 3.67-1.76. BUN 25. Potassium 5.3. Advised to continue holding lisinopril for 1 more week. 2. Elevated total creatinine kinase of 825 units/L: Patient had concern of heat exhaustion though he does not meet criteria for a true stroke. Follow-up CK shows improvement. 03/05: CPK improved. 196. Continue to hold atorvastatin. 3. Concern for acute alcohol withdrawal with reactive leukocytosis of 15.2 K present on admission with Nonbloody Diarrhea exacerbating volume depletion: Stool studies were negative for C. difficile and enteric pathogen panel. Stool for lactoferrin positive. Most likely noninfectious diarrhea with concern of acute alcohol withdrawal. Patient drinks more than 3 drinks per day mainly beer. Serum alcohol was elevated, 117 on admission. 03/05: Alcohol withdrawal resolved. Diarrhea has resolved. Stool for C. difficile, enteric pathogen panel and lactoferrin are negative. 5. Hyponatremia of 130 mmol/L (down from 137 mmol/L on last evaluation) -repeat sodium is 134. 03/05: Serum sodium improved to 139, normal. Mild hyperkalemia 5.3. Continue to hold medications lisinopril. 6. CAD; s/p NSTEMI with subsequent LCX stent (2018) on BASA daily plus prn SL NTG. Hold BASA Continue prn SL NTG. 7. Obesity (class I); with BMI of 31.1 this admission plus AARON and Hepatic Steatosis - Weight loss will be recommended. Check TSH. Resume nocturnal CPAP. This complicates his case and may hamper recovery. 8. History of EtOH abuse; patient admits to only one drink today because he was nervous but denies chronic EtOH abuse on folate and cyanocobalamin supplements - Noted. Maintain supplementation. 9. Essential hypertension; on lisinopril and carvedilol BID: Continue carvedilol. Hold lisinopril 10. Hyperlipidemia; on atorvastatin - Hold statin with possible superimposed myotoxicity. 11. History of CHF - Stable with no signs of volume overload at this time. 12. History of TIA; with known carotid artery disease - Stable. 13. Former tobacco abuse; with subsequent asthma/COPD - Stable with no evidence of acute flare at this time. Continue scheduled and as needed nebulizers/inhalers. 14. History of thrombocytopenia - Stable with platelet count 100 56K present on admission. Depression; with history of suicidal ideation on buspirone TID and trazodone q. HS - Maintain home regimen. GERD; on omeprazole - Continue PPI. Chronic OA - Give acetaminophen prn as outlined in #1. DVT prophylaxis - Heparin 5,000U sq BID plus SCD's. Microbiology Past 72 Hours 03/04/25 08:43 Stool Stool Lactoferrin - Final 03/04/25 08:43 Stool Enteric Bacteriology - Final 03/04/25 08:43 Stool Clostridioides difficile (PCR) - Final Laboratory Results 03/03/25 19:25: WBC 15.2 H, RBC 4.52 L, Hgb 14.5, Hct 39.9 L, MCV 88.3, MCH 32.1 H, MCHC 36.3 H, RDW Std Deviation 39.5, RDW Coeff of [place] 12.2, Plt Count 156, MPV 10.3, Immature Gran % (Auto) 0.300, Neut % (Auto) 67.7, Lymph % (Auto) 22.6, [place] % (Auto) 8.0, Eos % (Auto) 1.2, Baso % (Auto) 0.2, Absolute Neuts (auto) 10.3 H, Absolute Lymphs (auto) 3.44, Nucleated RBC % 0, Sodium 130 L, Potassium 3.7, Chloride 91 L, Carbon Dioxide 16.4 L, Anion Gap 23 H, BUN 42 H, Creatinine 5.32 H, Estim Creat Clear Calc 17.79 L, Est GFR (MDRD) Non-Af 12 L, B UN/Creatinine Ratio 8.0 L, Glucose 80, Calcium 9.1, Magnesium 2.0, Total Creatine Kinase 825 H, Troponin T High Sens 13 03/03/25 21:13: Ethyl Alcohol 117.0 H 03/03/25 21:59: Troponin T Hi Sens 2 Hr 11 03/03/25 22:02: Urine Color Straw, Urine Clarity Clear, Urine pH 6.0, Ur Specific [place] 1.010, Urine Protein 15 H, Urine Glucose (UA) Normal, Urine Ketones Negative, Urine Occult Blood Negative, Urine Nitrite Negative, Urine Bilirubin Negative, Urine Urobilinogen Normal, Ur Leukocyte Esterase Negative, Urine RBC 0 SEEN, Urine WBC 0-5 SEEN, Ur Squamous Epith Cells 0-5 SEEN, Urine Bacteria 0 SEEN, Urine Mucus 0 SEEN 03/03/25 23:30: Troponin T Hi Sens 4Hr 11, TSH 1.110 03/04/25 06:10: WBC 7.0, RBC 3.81 L, Hgb 12.0 L, Hct 34.5 L, MCV 90.6, MCH 31.5, MCHC 34.8, RDW Std Deviation 39.6, RDW Coeff of [place] 12.0, Plt Count 104 L, MPV 10.8, Immature Gran % (Auto) 0.300, Neut % (Auto) 62.4, Lymph % (Auto) 28.2, [place] % (Auto) 7.6, Eos % (Auto) 1.4, Baso % (Auto) 0.1, Absolute Neuts (auto) 4.3, Absolute Lymphs (auto) 1.96, Nucleated RBC % 0, Sodium 134, Potassium 4.7, Chloride 102, Carbon Dioxide 19.1 L, Anion Gap 12, BUN 36 H, Creatinine 3.67 H, Estim Creat Clear Calc 25.97 L, Est GFR (MDRD) Non-Af 18 L, BUN/Creatinine Ratio 9.7 L, Glucose 102 H, Calcium 7.8, Phosphorus 3.3, Total Bilirubin 1.04, AST 32, ALT 19, Alkaline Phosphatase 85, Total Creatine Kinase 484 H, Total Protein 5.8 L, Albumin 3.8, Globulin 2.0 L, Albumin/Globulin Ratio 1.9 Clinical Impression(s) from Imaging Studies Brain CT 03/03/25 20:24 IMPRESSION: No acute intracranial abnormality. Reading Location: [facility] Chest X-Ray 03/03/25 21:30 IMPRESSION: No acute chest findings. Reading Location: [facility] Medications at Discharge Home Medications omeprazole 20 mg capsule,delayed release 20 mg PO DAILY heart burn 06/17/14 nitroglycerin 0.4 mg sublingual tablet 0.4 mg sublingual Q5M PRN Chest Pain #25 tabs 12/24/22 cyclobenzaprine 10 mg tablet 10 mg PO DAILY PRN Pain 10/14/23 folic acid 1 mg tablet 1 mg PO DAILY 10/14/23 magnesium oxide 400 mg (241.3 mg magnesium) tablet 400 mg PO DAILY 10/14/23 thiamine HCl (vitamin B1) 100 mg tablet 100 mg PO DAILY 10/14/23 buspirone 7.5 mg tablet 7.5 mg PO TID 09/29/24 carvedilol 25 mg tablet 25 mg PO BID 09/29/24 lisinopril 10 mg tablet 10 mg PO QDAY 09/29/24 Held on 03/05/25. Instructions: Hold for week follow-up with BMP PCP before resumption. trazodone 50 mg tablet 100 mg PO QHS 09/29/24 aspirin 81 mg tablet,delayed release 81 mg PO DAILY heart #90 tabs 10/27/24 atorvastatin 40 mg tablet 40 mg PO QHS #90 tabs 10/27/24 Held on 03/05/25. Instructions: Hold for 7 days cyanocobalamin (vitamin B-12) 100 mcg tablet (Vitamin B-12) 100 mcg PO DAILY 01/28/25 multivitamin (Daily Multi-Vitamin tablet) 1 tab PO DAILY 01/28/25 Physical Exam Narrative Seen and examined. Symptoms of nausea bloating has resolved. Diarrhea has stopped. Enteric pathogen panel and C. difficile are negative. Patient has good urine output. No acute alcohol withdrawal symptoms. Patient wants to go home. Patient also drinks alcohol though he has cut. Last GI office visit was September 2024. Last hospital admission for alcohol withdrawal was April 2023. Patient having diarrhea. Physical exam General: Alert, Oriented x3, Cooperative HEENT: Atraumatic, PERRLA, EOMI, Normocephalic. Oral: No Gingival or Mucosal Lesions/ Ulcerations Neck: Supple, No JVD, Negative Carotid Bruits Chest wall/Lungs: Air entry diminished in bilateral lung bases. No crepitation/rhonchi Cardiovascular: Regular rate and rhythm, Normal S1,S2, No M/G/R Abdomen: Bowel Sounds Present, Soft, mild tenderness bilateral left more than right. : No dysuria. No renal angle tenderness. No suprapubic tenderness. Extremities: No edema, Capillary Refill Less than 3 Seconds Skin: No rashes, No breakdown Musculoskeletal: No Tenderness to Palpation of Joints or Extremities Neurological: Cranial nerves II-XII grossly intact, DTR 2+/4. No acute focal neurological deficit. Psych/Mental Status: Normal Affect, Appropriate. Weight / BMI Weight Weight: 218 lb 7.649 oz Body Mass Index (BMI) 31.3 ABG / Lab / Microbiology Data 03/05/25 06:43 03/05/25 06:43 Laboratory: Laboratory Results - last 24 hr 03/04/25 17:10: PT 13.5, INR 1.0 03/05/25 06:38: Phosphorus 2.5 L 03/05/25 06:43: WBC 4.3 L, RBC 3.81 L, Hgb 11.9 L, Hct 35.2 L, MCV 92.4, MCH 31.2, MCHC 33.8, RDW Std Deviation 41.8, RDW Coeff of [place] 12.4, Plt Count 94 L, MPV 11.3, Immature Gran % (Auto) 0.000, Neut % (Auto) 50.4, Lymph % (Auto) 38.6, [place] % (Auto) 8.9, Eos % (Auto) 1.9, Baso % (Auto) 0.2, Absolute Neuts (auto) 2.2, Absolute Lymphs (auto) 1.65, Nucleated RBC % 0, Platelet Estimate SLT DEC, Sodium 139, Potassium 5.3 H, Chloride 108, Carbon Dioxide 18.8 L, Anion Gap 12, BUN 25 H, Creatinine 1.76 H, Estim Creat Clear Calc 53.99, Est GFR (MDRD) Non-Af 44 L, BUN/Creatinine Ratio 14.3, Glucose 90, Calcium 8.5, Total Creatine Kinase 196 H Microbiology: Microbiology 03/04/25 08:43 Stool Stool Lactoferrin - Final 03/04/25 08:43 Stool Enteric Bacteriology - Final 03/04/25 08:43 Stool Clostridioides difficile (PCR) - Final D/C Instructions DC O2, CPAP, BIPAP Needs Home O2 Discharge instructions: No Meaningful Use Info Meaningful Use Meaningful Use Diagnoses (Choose all that apply): None applicable Discharge Plan Admission Admit Date/Time: 03/03/25 21:48 Primary Reason for Your Visit: LUZ MARIA, mild rhabdomyolysis Attending Provider: Jatin Mcgraw Primary Care Provider: Keren Kwon NP Consulting Providers: Benigno Murillo Discharge Orders/Prescriptions Prescriptions: Continued nitroglycerin 0.4 mg tablet, sublingual 0.4 mg SUBLINGUAL Q5M PRN (Reason: Chest Pain) Qty: 25 3RF trazodone 50 mg tablet 100 mg PO QHS magnesium oxide 400 mg (241.3 mg magnesium) tablet 400 mg PO DAILY thiamine HCl (vitamin B1) 100 mg tablet 100 mg PO DAILY folic acid 1 mg tablet 1 mg PO DAILY buspirone 7.5 mg tablet 7.5 mg PO TID carvedilol 25 mg tablet 25 mg PO BID Rx Instructions: must administer with a meal/food omeprazole 20 MG capsule 20 mg PO DAILY Patient Comments: REFLUX cyclobenzaprine 10 mg tablet 10 mg PO DAILY PRN (Reason: Pain) multivitamin [Daily Multi-Vitamin] Tablet 1 tab PO DAILY cyanocobalamin (vitamin B-12) [Vitamin B-12] 100 mcg tablet 100 mcg PO DAILY aspirin 81 mg tablet,delayed release (DR/EC) 81 mg PO DAILY Qty: 90 3RF Held lisinopril 10 mg tablet 10 mg PO QDAY Hold Instructions: Hold for week follow-up with BMP PCP before resumption. atorvastatin 40 mg tablet 40 mg PO QHS Qty: 90 3RF Hold Instructions: Hold for 7 days Referrals / Follow Up: Keren Kwon NP, [facility] [Primary Care Provider] - 03/09/25 1:20 pm Disposition Disposition (needs filled in before D/C Order can be placed): Home, Self Care Charges/Coding Visit Charges Inpatient E&M: 45220 Disch Hosp >30min
[2025-03-05 10:12] LABS: Hematocrit 35.2 % (40-54); Hemoglobin 11.9 g/dL (13.0-16.5); Immature Granulocytes Count 0.000 X10^3/uL (0.0-0.0); Mean Corp Hgb Conc 33.8 g/dL (32-36); Mean Corpuscular Volume 92.4 fL (80-94); Mean Platelet Vol. 11.3 fl (6.2-12.0); NRBC Flagged by Analyzer 0 % (0-5); POSITIVE COUNT YES; Platelet Count 94 K/mm3 (150-450); RBC Distribution Width CV 12.4 % (11.6-14.6); RBC Distribution Width SD 41.8 fl (35.1-43.9); Red Blood Count 3.81 M/mm3 (4.6-6.2); White Blood Count 4.3 K/mm3 (4.4-11.0)
[2025-03-05 10:15] LABS: Differential Indicated SCAN CRITERIA MET
[2025-03-05 10:26] LABS: CPK Total, Creatine Kinase 196 U/L (24-195)
[2025-03-05 10:27] LABS: Anion Gap 12 (5-15); BUN 25 mg/dL (4-19); BUN/Creat Ratio 14.3 RATIO (10-20); Calcium,Total 8.5 mg/dL (7.6-11.0); Carbon Dioxide 18.8 mmol/L (21.0-32.0); Chloride 108 mmol/L (98-108); Estimated Creatinine Clearance 53.99 ml/min (50-250); Glucose 90 mg/dL (70-99); Potassium 5.3 mmol/L (3.3-5.1)
[2025-03-05 10:30] VITALS: BP 132/68; PULSE 82; RESP 15; TEMP 36.6; O2SAT 99
--- NOTE | 2025-03-05 10:48 | CASEMGMT ---
Social Work SW met w/pt in regard to alcohol use. Pt explains that he was not feeling well on Saturday, was anxious, and had a beer on his way to the hospital. It was his second day back to work after being off for eight months. 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 He states he is not in shape to do this anymore, and he will likely need to find a new job. Pt states he has been in AA since December. He states they had a memorial for his father in December, it's been a year since his father . After that, he decided to start going to AA. Pt states he does find it helpful. Pt does not want any additional resources for his alcohol use at this time. SW also asked pt about his anxiety, pt is already on anxiety medication, though on Saturday it just wasn't working. At this point, pt declining any resources, SW remains available should pt have any social service needs. CONSTANCE White
== END 2025-03-05 11:42 | disposition home or self-care (01) | DRG 469 ==
LOC: ED 19:34 → PCU 22:05
PROVIDERS: Admitting Provider Internal Medicine; Emergency Provider Emergency Medicine; PCP Registered Nurse; Visit Provider Internal Medicine
DX: N17.9 Acute kidney failure, unspecified (principal); M62.82 Rhabdomyolysis; I13.0 Hypertensive heart and chronic kidney disease with heart failure and stage 1 through stage 4 chronic kidney disease, or unspecified chronic kidney disease; J44.9 Chronic obstructive pulmonary disease, unspecified; N18.31 Chronic kidney disease, stage 3a; K76.0 Fatty (change of) liver, not elsewhere classified; F32.A Depression, unspecified; Z68.31 Body mass index [BMI] 31.0-31.9, adult; R19.7 Diarrhea, unspecified; E78.5 Hyperlipidemia, unspecified; I25.10 Atherosclerotic heart disease of native coronary artery without angina pectoris; E87.1 Hypo-osmolality and hyponatremia; I25.2 Old myocardial infarction; K21.9 Gastro-esophageal reflux disease without esophagitis; M19.90 Unspecified osteoarthritis, unspecified site; D72.829 Elevated white blood cell count, unspecified; G47.33 Obstructive sleep apnea (adult) (pediatric); E87.5 Hyperkalemia; M62.838 Other muscle spasm; F10.90 Alcohol use, unspecified, uncomplicated; Z87.891 Personal history of nicotine dependence; Z95.5 Presence of coronary angioplasty implant and graft; Z82.49 Family history of ischemic heart disease and other diseases of the circulatory system; Z79.899 Other long term (current) drug therapy; Z79.82 Long term (current) use of aspirin; T50.905A Adverse effect of unspecified drugs, medicaments and biological substances, initial encounter; E66.811 Obesity, class 1; Z86.73 Personal history of transient ischemic attack (TIA), and cerebral infarction without residual deficits; Y90.5 Blood alcohol level of 100-119 mg/100 ml
CPT/HCPCS: 36415; 70450; 71045; 80048; 80053; 81001; 82077; 82550; 83630; 83735; 84100; 84443; 84484; 85025; 85610; 87493; 87506; 93005; 94668; 97161; 99285; A4216; J2405

== ENCOUNTER 2025-03-10 17:30 | Emergency (ER) | payer MEDICAID, SELFPAY ==
[2017-11-21 12:50] VITALS: BMI 32.3
[2025-03-10 17:30] VITALS: BP 135/91; PULSE 92; RESP 16; TEMP 36.4; O2SAT 94; BMI 30.2
--- NOTE | 2025-03-10 17:34 | ED.RN ---
LEONARDO CHANGED SEE TRIAGE DOCUMENTATION
--- NOTE | 2025-03-10 18:14 | EX.ED.DYSGE1 ---
HPI History of Present Illness Chief Complaint: Abn Labs Detail of Chief Complaint: Abnormal labs Informant: patient Narrative Narrative: Patient presents to the emergency department with concern for abnormal labs and elevated potassium. Patient states that he had follow-up blood work done yesterday after his admission to the hospital from the 13th through the 15 of this month. Patient was admitted for LUZ MARIA and rhabdomyolysis. Patient states that he is feeling better but at times still little lightheaded. He is been eating and drinking normally. Denies fever. [facility] Medical History Personal history of colon polyps, unspecified Family history of malignant neoplasm of colon in father Anxiety Kidney disease GERD (gastroesophageal reflux disease) GI bleed Sleep apnea Former smoker Asthma Irregular heart beat Myocardial infarct TIA (transient ischemic attack) Abdominal pain Alcohol withdrawal Acute dehydration Nausea & vomiting Dehydration Alcoholic hepatitis Thrombocytopenia LUZ MARIA (acute kidney injury) Alcohol withdrawal Carotid artery disease Chronic kidney disease History of non-ST elevation myocardial infarction (NSTEMI) Coronary artery disease COPD (chronic obstructive pulmonary disease) Lung nodule Tobacco use WILSON (dyspnea on exertion) Fatigue Chest pain Heart failure COPD exacerbation Hypoxia Community acquired pneumonia Alcohol intoxication Suicidal ideation Atherosclerosis of coronary artery of [place] heart without angina pectoris Depression NSTEMI (non-ST elevated myocardial infarction) Obesity (BMI 30.0-34.9) Hyperlipidemia Hypertension Alcohol abuse Chest pain Home Medications ?Medication ?Instructions ?Recorded ?Last Taken ?Type omeprazole 20 mg capsule,delayed 20 mg PO DAILY heart burn 06/17/14 01/12/19 10:30 History release 20 MG nitroglycerin 0.4 mg sublingual 0.4 mg sublingual Q5M PRN Chest 12/24/22 Unknown Rx tablet Pain #25 tabs cyclobenzaprine 10 mg tablet 10 mg PO DAILY PRN Pain 10/14/23 Unknown History folic acid 1 mg tablet 1 mg PO DAILY 10/14/23 Unknown History magnesium oxide 400 mg (241.3 mg 400 mg PO DAILY 10/14/23 Unknown History magnesium) tablet thiamine HCl (vitamin B1) 100 mg 100 mg PO DAILY 10/14/23 Unknown History tablet buspirone 7.5 mg tablet 7.5 mg PO TID 09/29/24 Unknown History carvedilol 25 mg tablet 25 mg PO BID 09/29/24 Unknown History lisinopril 10 mg tablet 10 mg PO QDAY 09/29/24 Unknown History Held on 03/05/25. Instructions: Hold for week follow-up with BMP PCP before resumption. trazodone 50 mg tablet 100 mg PO QHS 09/29/24 Unknown History aspirin 81 mg tablet,delayed 81 mg PO DAILY heart #90 tabs 10/27/24 Unknown Rx release atorvastatin 40 mg tablet 40 mg PO QHS #90 tabs 10/27/24 Unknown Rx Held on 03/05/25. Instructions: Hold for 7 days cyanocobalamin (vitamin B-12) 100 100 mcg PO DAILY 01/28/25 Unknown History mcg tablet (Vitamin B-12) multivitamin (Daily Multi-Vitamin 1 tab PO DAILY 01/28/25 Unknown History tablet) Allergy/AdvReac Type Severity Reaction Status Date / Time No Known Allergies Allergy Verified 03/10/25 17:31 Family History Mother CAD (coronary artery disease) Father CAD (coronary artery disease) Colon cancer, Onset Age: 53 At 53yrs Brother CAD (coronary artery disease) Myocardial infarction Sister CAD (coronary artery disease) Surgical History Hx of colonoscopy History of coronary artery stent placement Stented coronary artery History of tonsillectomy Hx of eye surgery Social History household members: significant other housing: apartment current occupational status: employed current occupation: [employer] Smoking Status: Former smoker alcohol intake: current alcohol intake frequency: 3 or more drinks per day substance use type: former substance user caffeine: Yes Type: coffee Number of servings: 2 what type of physical activity do you participate in: none ROS ROS ED Review of Systems ROS Unobtainable: other Constitutional Constitutional ED: Reports lethargy; Denies chills, fever(s), sweats or weight loss Eyes Eyes: Denies blurry vision, change in vision or diplopia ENT ENT ED: Denies rhinorrhea or sore throat Cardiovascular Cardiovascular: Denies chest pain, orthopnea or racing heartbeat Respiratory/Chest Respiratory/Chest: Denies cough, dyspnea, dyspnea on exertion, orthopnea or sputum Gastrointestinal Gastrointestinal: Denies abdominal pain, diarrhea, nausea or vomiting Genitourinary Genitourinary ED: Denies dysuria, hematuria or urinary frequency Musculoskeletal Musculoskeletal: Denies arthralgias, back pain, myalgias or neck pain Integumentary Denies abscess, Abrasions or rash Neurologic Neurologic: Reports other Details: Lightheadedness ; Denies headache(s) or weakness Psychiatric Psychiatric: Denies anxiety, depression or suicidal thoughts Endocrine Endocrinology: Denies polydipsia, polyphagia or polyuria Hematologic/Lymphatic Hematologic/Lymphatic: Denies easy bleeding, easy bruising or lymphadenopathy Allergic/Immunologic Allergic/Immunologic ED: Denies mouth swelling, tongue swelling or urticaria EXAM Physical Exam Const Vital Signs: 03/10/25 17:30 03/10/25 18:32 03/10/25 18:32 Temperature 97.6 F L Temperature Source Temporal Pulse Rate 92 87 Respiratory Rate 16 15 Respiratory Effort Normal Non-Labored Respiratory Pattern Normal Blood Pressure 135/91 H 120/74 Blood Pressure Mean 105 89 Pulse Ox 94 96 Oxygen Delivery Method Room Air 03/10/25 19:00 03/10/25 20:00 Temperature 97.4 F L 97.1 F L Temperature Source Oral Oral Pulse Rate 82 85 Respiratory Rate 17 13 Respiratory Effort Respiratory Pattern Blood Pressure 134/78 H 148/76 H Blood Pressure Mean 96 100 Pulse Ox 99 98 Oxygen Delivery Method Room Air Room Air Positive well nourished and well developed General Appearance ED: well developed and NAD HEENT Reports TM's clear and moist mucous membranes normocephalic and atraumatic; Negative for trauma or tenderness Tympanic Membrane ED: Yes TM's clear Eyes PERRL and EOMs intact bilaterally General Eye ED: Negative for pale conjunctiva or scleral icterus Neck no lymphadenopathy, supple and no JVD General: Negative for tenderness Chest Wall inspection of chest normal and palpation of chest normal Chest: Negative for tenderness Resp normal respiratory effort and clear to auscultation bilaterally Effort and Inspection: Negative for respiratory distress or pain with movement Auscultation: Negative for rhonchi, wheezes or diminished lung sounds Cardio regular rate, regular rhythm, S1 normal heart sound, S2 normal heart sound and no murmurs Peripheral Pulses: pulses 2+ throughout GI normal to inspection, nondistended, normoactive bowel sounds, soft to palpation, non-tender, non-distended and no masses Back/Spine no CVA tenderness and no thoracic nor lumbar tenderness Extremity normal to inspection General Extremety ED: Negative for edema General Extremity: Negative for edema Neuro oriented x3, CN's II-XII intact bilaterally, no sensory deficits noted and gait normal Sensorium / Orientation: awake, alert, oriented to person, oriented to place and oriented to time Motor Exam: strength 5/5 throughout and strength abnormal Psych mental status grossly normal Skin no rashes or lesions noted and no wounds MDM MDM MDM Narrative Medical decision making narrative: Patient presents with concern for hyperkalemia from blood draw yesterday. Sent in by primary care physician. No significant complaints although had recent admission for LUZ MARIA. IV line established. CBC with differential obtained showed white count 7.0 with hemoglobin 14.9 and platelet count of 156. Chemistries unremarkable with a potassium of 4.9. BUN was 16 and creat 1.78. Discussed results with patient. At this point I do not feel any further treatment is indicated. Advised to follow-up with his primary care physician as instructed. Lab Data Attestation: I reviewed the patient's lab results. Labs: Laboratory Results - last 24 hr 03/10/25 18:27 WBC 7.0 RBC 4.63 Hgb 14.9 Hct 41.7 MCV 90.1 MCH 32.2 H MCHC 35.7 RDW Std Deviation 39.8 RDW Coeff of [place] 12.2 Plt Count 156 MPV 10.5 Immature Gran % (Auto) 0.300 Neut % (Auto) 58.4 Lymph % (Auto) 30.5 [place] % (Auto) 9.0 Eos % (Auto) 1.4 Baso % (Auto) 0.4 Absolute Neuts (auto) 4.1 Absolute Lymphs (auto) 2.14 Nucleated RBC % 0 Sodium 136 Potassium 4.9 Chloride 100 Carbon Dioxide 21.9 Anion Gap 14 BUN 16 Creatinine 1.78 H Estim Creat Clear Calc 52.45 Est GFR (MDRD) Non-Af 44 L BUN/Creatinine Ratio 8.9 L Glucose 99 Calcium 9.8 Discharge Plan Triage Chief Complaint: Abn Labs ED Provider: Little Gutierrez Dx/Rx/DC Orders Clinical Impression: At high risk for hyperkalemia, LUZ MARIA (acute kidney injury) Instructions: ED Hyperkalemia Prescriptions: No Action nitroglycerin 0.4 mg tablet, sublingual 0.4 mg SUBLINGUAL Q5M PRN (Reason: Chest Pain) Qty: 25 3RF trazodone 50 mg tablet 100 mg PO QHS magnesium oxide 400 mg (241.3 mg magnesium) tablet 400 mg PO DAILY thiamine HCl (vitamin B1) 100 mg tablet 100 mg PO DAILY folic acid 1 mg tablet 1 mg PO DAILY buspirone 7.5 mg tablet 7.5 mg PO TID carvedilol 25 mg tablet 25 mg PO BID Rx Instructions: must administer with a meal/food lisinopril 10 mg tablet 10 mg PO QDAY omeprazole 20 MG capsule 20 mg PO DAILY Patient Comments: REFLUX cyclobenzaprine 10 mg tablet 10 mg PO DAILY PRN (Reason: Pain) multivitamin [Daily Multi-Vitamin] Tablet 1 tab PO DAILY cyanocobalamin (vitamin B-12) [Vitamin B-12] 100 mcg tablet 100 mcg PO DAILY aspirin 81 mg tablet,delayed release (DR/EC) 81 mg PO DAILY Qty: 90 3RF atorvastatin 40 mg tablet 40 mg PO QHS Qty: 90 3RF Primary Care Provider: Keren Kwon NP Referrals: Keren Kwon NP, [facility] [Primary Care Provider] - Activity Restrictions/Additional Instructions: There was concern for elevated potassium level. Your potassium is normal today and I suspect likely the blood draw from yesterday was a laboratory error. Print Language: Hebrew Disposition Disposition: Home, Self Care
[2025-03-10 18:32] VITALS: BP 120/74; PULSE 87; RESP 15; O2SAT 96
[2025-03-10 18:42] LABS: Hematocrit 41.7 % (40-54); Hemoglobin 14.9 g/dL (13.0-16.5); Immature Granulocytes Count 0.020 X10^3/uL (0.0-0.0); Mean Corp Hgb Conc 35.7 g/dL (32-36); Mean Corpuscular Volume 90.1 fL (80-94); Mean Platelet Vol. 10.5 fl (6.2-12.0); NRBC Flagged by Analyzer 0 % (0-5); Platelet Count 156 K/mm3 (150-450); RBC Distribution Width CV 12.2 % (11.6-14.6); RBC Distribution Width SD 39.8 fl (35.1-43.9); Red Blood Count 4.63 M/mm3 (4.6-6.2); White Blood Count 7.0 K/mm3 (4.4-11.0)
[2025-03-10 19:00] VITALS: BP 134/78; PULSE 82; RESP 17; TEMP 36.3; O2SAT 99
[2025-03-10 19:13] LABS: Anion Gap 14 (5-15); BUN 16 mg/dL (4-19); BUN/Creat Ratio 8.9 RATIO (10-20); Calcium,Total 9.8 mg/dL (7.6-11.0); Carbon Dioxide 21.9 mmol/L (21.0-32.0); Chloride 100 mmol/L (98-108); Estimated Creatinine Clearance 52.45 ml/min (50-250); Glucose 99 mg/dL (70-99); Potassium 4.9 mmol/L (3.3-5.1)
[2025-03-10 20:00] VITALS: BP 148/76; PULSE 85; RESP 13; TEMP 36.2; O2SAT 98
[2025-03-10 20:51] VITALS: BP 138/78; PULSE 68; RESP 16; TEMP 36.5; O2SAT 96
== END 2025-03-10 20:53 | disposition home or self-care (01) ==
PROVIDERS: Emergency Provider Emergency Medicine; PCP Registered Nurse; Visit Provider Emergency Medicine
DX: E87.5 Hyperkalemia (principal); I50.9 Heart failure, unspecified; I13.0 Hypertensive heart and chronic kidney disease with heart failure and stage 1 through stage 4 chronic kidney disease, or unspecified chronic kidney disease; J44.9 Chronic obstructive pulmonary disease, unspecified; I25.10 Atherosclerotic heart disease of native coronary artery without angina pectoris; Z87.891 Personal history of nicotine dependence; N18.9 Chronic kidney disease, unspecified; E78.5 Hyperlipidemia, unspecified; K21.9 Gastro-esophageal reflux disease without esophagitis; R42 Dizziness and giddiness; N17.9 Acute kidney failure, unspecified
CPT/HCPCS: 80048; 85025; 99283; A4216

== ENCOUNTER 2025-03-29 08:43 | Day surgery (SDC) | payer MEDICAID, SELFPAY ==
[2017-11-21 12:50] VITALS: BMI 32.3
--- NOTE | 2025-03-25 17:01 | PAT.ANESEVAL ---
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 When Was Last Pacemaker Check QUESTION #4 FULL TEXT: You/Your Family Experience fever (hyperthermia) with Anesthesia Last Oral Intake Last Oral intake: Last Oral Intake NPO since Meds taken in AM with sips of water? Meds patient instructed to take am of surgery PONV PONV - building maintenance engineer: PONV - building maintenance engineer Female No 03/25/25 16:43 HX of Motion Sickness No 03/25/25 16:43 HX of N/V After Surgery No 03/25/25 16:43 Non-Smoker Yes 03/25/25 16:43 Duration of Surgery greater No 03/25/25 16:43 than 60 minutes Number of Risk Factors 1 03/25/25 16:43 PONV Score Low Risk 03/25/25 16:43 Height & Weight Height & Weight: Anesthesia: Height & Weight Height 5 ft 10 in 09/29/24 14:11 Respiratory Assessment Respiratory Assessment - building maintenance engineer: Respiratory Tract Infection Hx - building maintenance engineer Hx Respiratory Tract Infection No 03/25/25 16:43 STOP Sleep Apnea STOP Sleep Apnea - building maintenance engineer: STOP Sleep Apnea - building maintenance engineer Hx Hypertension Yes: ON MEDS 03/25/25 16:43 Hx Sleep Apnea No 03/25/25 16:43 CPAP No 05/13/23 17:41 BIPAP No 05/13/23 17:41 Do you snore loudly (louder Yes 03/25/25 16:43 than talking or can be heard Do you often feel tired/ Yes 03/25/25 16:43 fatigued/ sleepy during daytime? Has anyone observed you stop Yes 03/25/25 16:43 breathing during sleep? STOP Results Positive 03/25/25 16:43 QUESTION #5 FULL TEXT : Do you snore loudly (louder than talking or can be heard through closed doors)? 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 Specify any problems Hx of Preganancy in last 3 N/A 03/25/25 16:43 Months Nurse Filling Out Transfusion [email or web address] 03/25/25 16:43 & Questions: Date: 03/25/25 03/25/25 16:43 Time: 16:45 03/25/25 16:43 Patient unable to answer at this time (ie. confused, unrespo /Reproduction History /Reproductive History - building maintenance engineer: /Reproductive Hx- building maintenance engineer Hx Now No 03/25/25 16:43 Gestational Age (in weeks): EDC: Hx Hx Para Hx Section SAB No 03/25/25 16:43 PFS Medical History (Updated 03/25/25 @ 16:43 by Melyssa Lepe) Wears glasses Hyponatremia Rhabdomyolysis Personal history of colon polyps, unspecified Family history of malignant neoplasm of colon in father Anxiety Kidney disease GERD (gastroesophageal reflux disease) GI bleed Sleep apnea Former smoker Asthma Irregular heart beat Myocardial infarct TIA (transient ischemic attack) Abdominal pain Alcohol withdrawal Acute dehydration Nausea & vomiting Dehydration Alcoholic hepatitis Thrombocytopenia LUZ [facility]IA (acute kidney injury) Alcohol withdrawal Carotid artery disease Chronic kidney disease History of non-ST elevation myocardial infarction (NSTEMI) Coronary artery disease COPD (chronic obstructive pulmonary disease) Lung nodule Tobacco use WILSON (dyspnea on exertion) Fatigue Chest pain Heart failure COPD exacerbation Hypoxia Community acquired pneumonia Alcohol intoxication Suicidal ideation Atherosclerosis of coronary artery of [place] heart without angina pectoris Depression NSTEMI (non-ST elevated myocardial infarction) Obesity (BMI 30.0-34.9) Hyperlipidemia Hypertension Alcohol abuse Chest pain Home Medications ?Medication ?Instructions ?Recorded ?Last Taken ?Type omeprazole 20 mg capsule,delayed 20 mg PO DAILY heart burn 06/17/14 01/12/19 10:30 History release 20 MG nitroglycerin 0.4 mg sublingual 0.4 mg sublingual Q5M PRN Chest 12/24/22 Unknown Rx tablet Pain #25 tabs cyclobenzaprine 10 mg tablet 10 mg PO DAILY PRN Pain 10/14/23 Unknown History folic acid 1 mg tablet 1 mg PO DAILY 10/14/23 Unknown History magnesium oxide 400 mg (241.3 mg 400 mg PO DAILY 10/14/23 Unknown History magnesium) tablet thiamine HCl (vitamin B1) 100 mg 100 mg PO DAILY 10/14/23 Unknown History tablet buspirone 7.5 mg tablet 7.5 mg PO TID 09/29/24 Unknown History carvedilol 25 mg tablet 25 mg PO BID 09/29/24 Unknown History lisinopril 10 mg tablet 10 mg PO QDAY 09/29/24 Unknown History Held on 03/05/25. Instructions: Hold for week follow-up with BMP PCP before resumption. trazodone 50 mg tablet 100 mg PO QHS 09/29/24 Unknown History aspirin 81 mg tablet,delayed 81 mg PO DAILY heart #90 tabs 10/27/24 Unknown Rx release atorvastatin 40 mg tablet 40 mg PO QHS #90 tabs 10/27/24 Unknown Rx Held on 03/05/25. Instructions: Hold for 7 days cyanocobalamin (vitamin B-12) 100 100 mcg PO DAILY 01/28/25 Unknown History mcg tablet (Vitamin B-12) multivitamin (Daily Multi-Vitamin 1 tab PO DAILY 01/28/25 Unknown History tablet) Allergy/AdvReac Type Severity Reaction Status Date / Time No Known Allergies Allergy Verified 03/25/25 12:03 Family History Mother CAD (coronary artery disease) Father CAD (coronary artery disease) Colon cancer, Onset Age: 53 At 53yrs Brother CAD (coronary artery disease) Myocardial infarction Sister CAD (coronary artery disease) Surgical History (Updated 03/13/25 @ 00:01 by Janki Bolaños) Hx of colonoscopy History of coronary artery stent placement Stented coronary artery History of tonsillectomy Hx of eye surgery Social History household members: significant other housing: apartment current occupational status: employed current occupation: [employer] Smoking Status: Former smoker alcohol intake: current alcohol intake frequency: 3 or more drinks per day substance use type: former substance user caffeine: Yes Type: coffee Number of servings: 2 what type of physical activity do you participate in: none Audit: Pertinent Findings Pertinent Findings EKG Perinent findings: March 03, 2025 sinus tachycardia 107 bpm. Otherwise normal EKG. Stress test pertinent findings: February 11, 2023. EF of 54%. Fixed perfusion defect of the basal lateral wall suggestive of previous nontransmural infarct. Peak exercise EKG with no ischemic changes. Consult pertinent findings: 10/14/2023. Dr. Brewer. 1. Noncompliance with medications-counseled regarding importance of compliance 2. Coronary artery disease-history of NSTEMI. Status post JUSTIN to the left circumflex. Resume aspirin, atorvastatin and carvedilol. 3. Hypertension-resume carvedilol. 4. COPD-per pulmonology/internal medicine. Recommendation Anesthesia Recommendation Anesthesia recommendation: OPTIMIZED for anesthesia
[2025-03-29] VITALS (9 sets, daily range): BP systolic 93–140; BP diastolic 44–103; PULSE 84–100; RESP 14–18; TEMP 36.1–36.6; O2SAT 95–98; BMI 30.3
[2025-03-29] MEDS: Lactated Ringers 1,000 ML 15 ML IV (09:14)
--- NOTE | 2025-03-29 09:22 | PCM.PRE.AN2 ---
ASA Classification* ASA Classification ASA Classification: 3 Assessment & Plan Anesthesia* Anesthesia Assessment Anesthesia Assessment: Discussed sedation and/or anesthesia options, risks, benefits, and alternatives with patient/parents/legal guardian/POA. Questions invited. The patient/parents/legal guardian/POA seems to understand and agrees to proceed with anesthesia plan. Reviewed the physical assessment, medical history, allergy history and patient home medications list prior to surgery/procedure/anesthetic and documented any changes. Performed airway and anesthesia risk assessments. Anesthesia Type Anesthesia Type: MAC History Source History Obtained from:: Patient and Chart Anesthesia Focused Assessment* Temperature: 98 F Pulse Rate: 100 Blood Pressure: 140/103 Respiratory Rate: 14 Pulse Ox: 98 Oxygen Delivery Method: Room Air Airway Assessment Mouth opens: >3 cm Mallampati Score: II Teeth Condition: Chipped/Broken and Missing (Missing front upper left tooth) Neck Range of motion (ROM): Full ROM Labs Anesthesia Preop lab: CBC WBC 7.0 K/mm3 (4.4-11.0) 03/10/25 18:03/10/25 RBC 4.63 M/mm3 (4.6-6.2) 03/10/25 18:27 03/10/25 Hgb 14.9 g/dL (13.0-16.5) 03/10/25 18:03/10/25 Hct 41.7 % (40-54) 03/10/25 18:27 03/10/25 Plt Count 156 K/mm3 (150-450) 03/10/25 18:27 03/10/25 CHEMISTRY Potassium 4.9 mmol/L (3.3-5.1) 03/10/25 18:27 03/10/25 Sodium 136 mmol/L (133-145) 03/10/25 18:03/10/25 Magnesium 2.0 mg/dL (1.5-2.2) 03/03/25 19:03/03/25 Phosphorus 2.5 mg/dL (2.7-4.5) L 03/05/25 06:38 03/05/25 BUN 16 mg/dL (4-19) 03/10/25 18:27 03/10/25 Creatinine 1.78 mg/dL (0.70-1.20) H 03/10/25 18:27 03/10/25 Glucose 99 mg/dL (70-99) 03/10/25 18:27 03/10/25 POC Glucose 105 mg/dL (70-110) 06/24/15 11:48 06/24/15 TSH 1.110 uIU/mL (0.300-4.200) 03/03/25 23:30 03/03/25 COAG PT 13.5 SECONDS (11.7-14.9) 03/04/25 17:10 03/04/25 Pre-Assessment Diagnosis/Proposed Procedure Planned Operative Procedure(s): Colonoscopy,EGD Anesthesia History 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 When Was Last Pacemaker Check QUESTION #4 FULL TEXT: You/Your Family Experience fever (hyperthermia) with Anesthesia Last Oral Intake Last Oral intake: Last Oral Intake NPO since 06:30 03/29/25 09:05 Meds taken in AM with sips of Yes 03/29/25 09:05 water? 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 Has anyone observed you stop Yes 03/25/25 16:43 breathing during sleep? STOP Results Positive 03/25/25 16:43 QUESTION #5 FULL TEXT : Do you snore loudly (louder than talking or can be heard through closed doors)? 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 Specify any problems Hx of Preganancy in last 3 N/A 03/25/25 16:43 Months Nurse Filling Out Transfusion [email or web address] 03/25/25 16:43 & Questions: Date: 03/25/25 03/25/25 16:43 Time: 16:45 03/25/25 16:43 Patient unable to answer at this time (ie. confused, unrespo /Reproduction History /Reproductive History - fiberglass autobody repairer: /Reproductive Hx- fiberglass autobody repairer Hx Now No 03/25/25 16:43 Gestational Age (in weeks): EDC: Hx Hx Para Hx Section SAB No 03/25/25 16:43 Active Medications Active Medications: Current Medications Generic Name Dose Route Start Last Admin Trade Name Freq PRN Reason Stop Dose Admin Lactated Ringer's 1,000 mls @ 15 mls/hr 03/29/25 08:45 03/29/25 09:14 IV 15 mls/hr .Q48H MAGDA Administration PFSH Medical History Wears glasses Hyponatremia Rhabdomyolysis Personal history of colon polyps, unspecified Family history of malignant neoplasm of colon in father Anxiety Kidney disease GERD (gastroesophageal reflux disease) GI bleed Sleep apnea Former smoker Asthma Irregular heart beat Myocardial infarct TIA (transient ischemic attack) Abdominal pain Alcohol withdrawal Acute dehydration Nausea & vomiting Dehydration Alcoholic hepatitis Thrombocytopenia LUZ MARIA (acute kidney injury) Alcohol withdrawal Carotid artery disease Chronic kidney disease History of non-ST elevation myocardial infarction (NSTEMI) Coronary artery disease COPD (chronic obstructive pulmonary disease) Lung nodule Tobacco use WILSON (dyspnea on exertion) Fatigue Chest pain Heart failure COPD exacerbation Hypoxia Community acquired pneumonia Alcohol intoxication Suicidal ideation Atherosclerosis of coronary artery of [place] heart without angina pectoris Depression NSTEMI (non-ST elevated myocardial infarction) Obesity (BMI 30.0-34.9) Hyperlipidemia Hypertension Alcohol abuse Chest pain Home Medications ?Medication ?Instructions ?Recorded ?Last Taken ?Type omeprazole 20 mg capsule,delayed 20 mg PO DAILY heart burn 06/17/14 03/29/25 06:30 History release nitroglycerin 0.4 mg sublingual 0.4 mg sublingual Q5M PRN Chest 12/24/22 Unknown Rx tablet Pain #25 tabs cyclobenzaprine 10 mg tablet 10 mg PO DAILY PRN Pain 10/14/23 Unknown History folic acid 1 mg tablet 1 mg PO DAILY 10/14/23 Unknown History magnesium oxide 400 mg (241.3 mg 400 mg PO DAILY 10/14/23 Unknown History magnesium) tablet thiamine HCl (vitamin B1) 100 mg 100 mg PO DAILY 10/14/23 Unknown History tablet buspirone 7.5 mg tablet 7.5 mg PO TID 09/29/24 03/29/25 06:30 History carvedilol 25 mg tablet 25 mg PO BID 09/29/24 03/28/25 History lisinopril 10 mg tablet 10 mg PO QDAY 09/29/24 Unknown History Held on 03/05/25. Instructions: Hold for week follow-up with BMP PCP before resumption. trazodone 50 mg tablet 100 mg PO QHS 09/29/24 Unknown History aspirin 81 mg tablet,delayed 81 mg PO DAILY heart #90 tabs 10/27/24 03/25/25 Rx release atorvastatin 40 mg tablet 40 mg PO QHS #90 tabs 10/27/24 Unknown Rx Held on 03/05/25. Instructions: Hold for 7 days cyanocobalamin (vitamin B-12) 100 100 mcg PO DAILY 01/28/25 Unknown History mcg tablet (Vitamin B-12) multivitamin (Daily Multi-Vitamin 1 tab PO DAILY 01/28/25 Unknown History tablet) Allergy/AdvReac Type Severity Reaction Status Date / Time No Known Allergies Allergy Verified 03/29/25 09:03 Family History Mother CAD (coronary artery disease) Father CAD (coronary artery disease) Colon cancer, Onset Age: 53 At 53yrs Brother CAD (coronary artery disease) Myocardial infarction Sister CAD (coronary artery disease) Surgical History Hx of colonoscopy History of coronary artery stent placement Stented coronary artery History of tonsillectomy Hx of eye surgery Social History household members: significant other housing: apartment current occupational status: employed current occupation: [employer] Smoking Status: Former smoker alcohol intake: current alcohol intake frequency: 3 or more drinks per day substance use type: former substance user caffeine: Yes Type: coffee Number of servings: 2 what type of physical activity do you participate in: none Review of Systems (Anesthesia) ROS Narrative System reviewed and no additional complaints, except as documented.
--- NOTE | 2025-03-29 09:50 | HP.PCM_ITS ---
HPI - General General Date of Admission: 03/29/25 Date of Service: 03/29/25 Chief Complaint: Varices screening and screening colonoscopy HPI Narrative BETHANY MONTALVO, is a 59 M who presentsDAAVERY MONTALVO, is a 58 M who presents to the office today for 10/14/2023 PLT 145, creat 1.49, AST 55 ABD US 05/13/2023 Hepatomegaly and fatty infiltration of the liver. Small gallbladder polyp. - HB and reflux is well controlled on prilosec 20mg once daily - has been on a PPI for the past 20 years - uncertain if he ever had an EGD in the past - denies dysphagia - occasional caffeine intake - former smoker - quit chew 3 weeks ago - denies any marijuana in the past 3 weeks - IBU PRN - Naproxen PRN - dislocated right elbow - weight is stable - denies any h/o blood transfusion - denies any h/o IVDU - EtOH - 2-3 a day and has binges 6-7 drinks a day - reports this is a higher concentration beer 8% - alcohol consumption dates back 43 years - denies any bruising - family h/o alcohol use (maternal uncles) - liver cirrhosis - 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 [place] Friend, DO) Wears glasses Hyponatremia Rhabdomyolysis Personal history of colon polyps, unspecified Family history of malignant neoplasm of colon in father Anxiety Kidney disease GERD (gastroesophageal reflux disease) GI bleed Sleep apnea Former smoker Asthma Irregular heart beat Myocardial infarct TIA (transient ischemic attack) Abdominal pain Alcohol withdrawal Acute dehydration Nausea & vomiting Dehydration Alcoholic hepatitis Thrombocytopenia LUZ MARIA (acute kidney injury) Alcohol withdrawal Carotid artery disease Chronic kidney disease History of non-ST elevation myocardial infarction (NSTEMI) Coronary artery disease COPD (chronic obstructive pulmonary disease) Lung nodule Tobacco use WILSON (dyspnea on exertion) Fatigue Chest pain Heart failure COPD exacerbation Hypoxia Community acquired pneumonia Alcohol intoxication Suicidal ideation Atherosclerosis of coronary artery of [place] heart without angina pectoris Depression NSTEMI (non-ST elevated myocardial infarction) Obesity (BMI 30.0-34.9) Hyperlipidemia Hypertension Alcohol abuse Chest pain Home Medications ?Medication ?Instructions ?Recorded ?Last Taken ?Type omeprazole 20 mg capsule,delayed 20 mg PO DAILY heart burn 06/17/14 03/29/25 06:30 History release nitroglycerin 0.4 mg sublingual 0.4 mg sublingual Q5M PRN Chest 12/24/22 Unknown Rx tablet Pain #25 tabs cyclobenzaprine 10 mg tablet 10 mg PO DAILY PRN Pain 0 10/14/23 Unknown History folic acid 1 mg tablet 1 mg PO DAILY 10/14/23 Unkno wn History magnesium oxide 400 mg (241.3 mg 400 mg PO DAILY 10/13 Unknown History magnesium) tablet thiamine HCl (vitamin B1) 100 mg 100 mg PO DAILY 10/13 Unknown History tablet buspirone 7.5 mg tablet 7.5 mg PO TID 09/29/2403/29 06:30 History carvedilol 25 mg tablet 25 mg PO BID 09/29/24 History lisinopril 10 mg tablet 10 mg PO QDAY 09/29/24 Unkno wn History Held on 03/05/25. Instructions: Hold for week follow-up with [facility] PCP before resumption. trazodone 50 mg tablet 100 mg PO QHS 09/29/24 Unkno wn History aspirin 81 mg tablet,delayed 81 mg PO DAILY heart #90 tabs 10/27/24 03/25/25 Rx release atorvastatin 40 mg tablet 40 mg PO QHS #90 tabs Unknown Rx Held on 03/05/25. Instructions: Hold for 7 days cyanocobalamin (vitamin B-12) 100 100 mcg PO DAILY 05/15 Unknown History mcg tablet (Vitamin B-12) multivitamin (Daily Multi-Vitamin 1 tab PO DAILY 01/28 Unknown History tablet) Allergy/AdvReac Type Severity Reaction Status Date / Time No Known Allergies Allergy Verified 03/29/25 09:03 Family History Mother CAD (coronary artery disease) Father CAD (coronary artery disease) Colon cancer, Onset Age: 53 At 53yrs Brother CAD (coronary artery disease) Myocardial infarction Sister CAD (coronary artery disease) Surgical History Hx of colonoscopy History of coronary artery stent placement Stented coronary artery History of tonsillectomy Hx of eye surgery Social History household members: significant other housing: apartment current occupational status: employed current occupation: [employer] Smoking Status: Former smoker alcohol intake: current alcohol intake frequency: 3 or more drinks per day substance use type: former substance user caffeine: Yes Type: coffee Number of servings: 2 what type of physical activity do you participate in: none ROS Constitutional Constitutional: Denies fatigue, fever(s), poor appetite, weight gain or weight loss Gastrointestinal Gastrointestinal: Denies belching, bloating, change in bowel habits, change in stool character, chewing difficulty, coffee ground emesis, constipation, cramping, diarrhea, dyspepsia, dysphagia, early satiety, excessive flatus, fecal incontinence, heartburn, hematemesis, hematochezia, hemorrhoids, loose stools, melena, nausea, odynophagia, rectal bleeding, tenesmus, vomiting or weight changes Vital Signs Vital Signs Vital Signs: 03/29/25 09:05 03/29/25 09:05 03/29/25 09:25 Temperature 98 F 98 F Temperature Source Temporal Pulse Rate 100 100 Respiratory Rate 14 14 Respiratory Pattern Normal Blood Pressure 140/103 H 140/103 H Blood Pressure Mean 115 Blood Pressure Source Monitor Blood Pressure Position Sitting Blood Pressure Location Left Arm Pulse Ox 98 98 Oxygen Delivery Method Room Air Room Air Weight Weight: 211 lb 10.3 oz Body Mass Index (BMI) 30.3 Physical Exam Const alert, oriented x3, no apparent distress and healthy appearing General Appearance: cooperative GI normal to inspection, nondistended, normoactive bowel sounds, soft to palpation, non-tender and non-distended Percussion: normal to percussion Rectal Exam: deferred Assessment & Plan Assessment/Plan (1) Heartburn: (2) Alcohol abuse: (3) Encounter for screening colonoscopy: (4) Family history of malignant neoplasm of colon in father: PLAN: Assessment and Plan Assessment and Plan (1) Gastroesophageal reflux disease: Qualifiers: Esophagitis presence: esophagitis presence not specified Qualified Code(s): K21.9 - Gastro-esophageal reflux disease without esophagitis (2) Alcohol abuse: Status: Chronic (3) Gallbladder polyp: Status: Acute (4) Steatosis, liver: Status: Acute (5) Heartburn: Status: Acute (6) Thrombocytopenia: Status: Acute Orders: Orders CBC W/Diff, Automated Today F10.10 - Alcohol abuse, uncomplicated, K76.0 - Fatty (change of) liver, not elsewhere classified, K82.4 - Cholesterolosis of gallbladder, R12 - Heartburn Comprehensive Metabolic Profil Today F10.10 - Alcohol abuse, uncomplicated, K76.0 - Fatty (change of) liver, not elsewhere classified, K82.4 - Cholesterolosis of gallbladder, R12 - Heartburn Hepatitis A AB, Total Today F10.10 - Alcohol abuse, uncomplicated, K76.0 - Fatty (change of) liver, not elsewhere classified, K82.4 - Cholesterolosis of gallbladder, R12 - Heartburn Hepatitis B Core Ab Total Today F10.10 - Alcohol abuse, uncomplicated, K76.0 - Fatty (change of) liver, not elsewhere classified, K82.4 - Cholesterolosis of gallbladder, R12 - Heartburn Hepatitis B Surface Antibody Today F10.10 - Alcohol abuse, uncomplicated, K76.0 - Fatty (change of) liver, not elsewhere classified, K82.4 - Cholesterolosis of gallbladder, R12 - Heartburn Hepatitis B Surface Antigen Today F10.10 - Alcohol abuse, uncomplicated, K76.0 - Fatty (change of) liver, not elsewhere classified, K82.4 - Cholesterolosis of gallbladder, R12 - Heartburn Hepatitis C Antibody Today F10.10 - Alcohol abuse, uncomplicated, K76.0 - Fatty (change of) liver, not elsewhere classified, K82.4 - Cholesterolosis of gallbladder, R12 - Heartburn Miscellaneous Lab Procedure Today F10.10 - Alcohol abuse, uncomplicated, K76.0 - Fatty (change of) liver, not elsewhere classified, K82.4 - Cholesterolosis of gallbladder, R12 - Heartburn Prothrombin Time w/INR Today F10.10 - Alcohol abuse, uncomplicated, K76.0 - Fatty (change of) liver, not elsewhere classified, K82.4 - Cholesterolosis of gallbladder, R12 - Heartburn ABD Limited w/ Elastography Today F10.10 - Alcohol abuse, uncomplicated, K76.0 - Fatty (change of) liver, not elsewhere classified, K82.4 - Cholesterolosis of gallbladder, R12 - Heartburn EGD 12/03/24 R12 - Heartburn Plan 58y/o male presents for consultation for evaluation of liver steatosis. ABD US completed in 2022 revealed liver steatosis and gallbladder polyp. Labs completed September 2023 revealed thrombocytopenia (145) and mildly elevated AST (55). He reports a long history of alcohol abuse and family history of alcoholic cirrhosis. He denies easy bruising, bleeding, pain or confusion. I have ordered additional labs, FibroScan and a repeat abdominal ultrasound. He reports a long history of esophageal reflux which is managed with omeprazole daily. He is scheduled for colonoscopy and we will perform an EGD at the same time. Patient Instructions: Alcohol cessation is encouraged Continue omeprazole daily. Support system for alcohol cessation is encouraged including reestablishing with a counselor and attending AA meetings. Follow-up in the office posttesting to review results. Plan Details Follow Up: 3 Months
--- NOTE | 2025-03-29 10:00 | COLBX_PTH ---
PATIENT: BETHANY MONTALVO LOC: EN U#:[id number] AGE/SX: 59/M ROOM: RE03/29/[address]: Dr. Julius Lovell DO : 1965 BED: DIS: 03/29/2025 SPEC #: [id number] RECD: 03/29/25 13:33 STATUS: MOISES MARY #: [id number] JEN: 03/29/25 10:[address]: Julius Lovell DEPT: SURGICAL PATHOLOGY RECD BY: Lonny Sr ENTERED: 03/29/25 15:25 SP TYPE: COLON BX OTHR DR: Keren Kwon, [employer]-C Tissues: A - Gastric mucous membrane B - Ileum, NOS C - COLON BIOPSY D - Sigmoid colon biopsy Procedures: Immunohistochemical Stains Surgery Specimen Level IV HEADER OPERATION: Colonoscopy, EGD, biopsy PRE-OP DIAGNOSIS: Gastroesophageal reflux disease, alcohol abuse, gallbladder polyp, steatosis, liver, heartburn, thrombocytopenia TISSUE SUBMITTED: A- Gastric body biopsy, B- Terminal ileum biopsy, C- Random colon biopsy, D- Sigmoid polyp biopsy MICROSCOPIC DIAGNOSIS A. Gastric body, biopsy: - Oxyntic mucosa with chronic gastritis. - IHC negative for H. pylori organisms. B. Terminal ileum, biopsy: - Normal villous architecture with mucosal lymphoid aggregates, favor reactive. C. Colon, random, biopsy: - No specific pathologic change. D. Sigmoid colon, polyp, biopsy: - Tubular adenoma. MICROSCOPIC DESCRIPTION Slides are reviewed. Slides are reviewed. All matched controls reacted appropriately. These tests were developed and their performance characteristics determined by [facility]. They may not have been cleared or approved by the U.S. Food and Drug Administration. The FDA has determined that such clearance or approval is not necessary. The above immunohistochemical markers and/or special stains have been reviewed by the Pathologist. GROSS DESCRIPTION A. Received in fixative is one container labeled with the patient's name and designated Gastric body biopsy. The specimen consists of two irregular fragments of light garcia soft tissue that measure 0.3 and 0.5 cm. The specimen is totally submitted in one cassette. B. Received in fixative is one container labeled with the patient's name and designated Terminal ileum biopsy. The specimen consists of one irregular fragment of light garcia soft tissue that measures 0.4 cm. The specimen is totally submitted in one cassette. C. Received in fixative is one container labeled with the patient's name and designated Random colon biopsy. The specimen consists of multiple irregular fragments of light garcia soft tissue that in aggregate measure 1.7 x 0.8 x 0.2 cm in aggregate. The specimen is totally submitted in one cassette. D. Received in fixative is one container labeled with the patient's name and designated Sigmoid polyp biopsy. The specimen consists of two irregular fragments of light garcia soft tissue, each measuring 0.3 cm. The specimen is totally submitted in one cassette. UT 03/29/2025 CPT:16215b7,44288
--- NOTE | 2025-03-29 10:33 | OP.PROVAT_ITS ---
03/29/2025 Keren Kwon Re : Upper GI endoscopy procedure for Rd Garcia Estephaniar Doyle This procedure was performed on Saturday, March 29, 2025. My impressions and recommendations are as follows: Impressions : - Congested mucosa in the gastric body. Biopsied. - Portal hypertensive gastropathy. Biopsied. - Erythematous duodenopathy. Biopsied. Recommendations : - Discharge patient to home. - Resume previous diet. - Continue present medications. - Await pathology results. My findings are described in the full procedure note, which is enclosed. If I can be of further assistance, please feel free to contact me at . Sincerely, Julius Lovell, 03/29/2025 10:32:48 AM This report has been signed electronically.
--- NOTE | 2025-03-29 10:33 | OP.EGD_ITS ---
Patient Name: Rd Garcia Procedure Date: 03/29/2025 10:05 AM Date of : 1965 Age: 59 Procedure: Upper GI endoscopy Indications: Epigastric abdominal pain, Functional Dyspepsia Providers: Julius Lovell DO Referring MD: Keren Kwon Medicines: Monitored Anesthesia Care Patient Profile: This is a 59 year old male. Refer to note in patient chart for documentation of history and physical. Patient has symptoms. Complications: No immediate complications. Procedure: Pre-Anesthesia Assessment: - Prior to the procedure, a History and Physical was performed, and patient medications and allergies were reviewed. The patient is competent. The risks and benefits of the procedure and the sedation options and risks were discussed with the patient. All questions were answered and informed consent was obtained. Patient identification and proposed procedure were verified by the physician in the pre-procedure area. Mental Status Examination: alert and oriented. Airway Examination: normal oropharyngeal airway and neck mobility. Respiratory Examination: clear to auscultation. CV Examination: normal. Prophylactic Antibiotics: The patient does not require prophylactic antibiotics. Prior Anticoagulants: The patient has taken no anticoagulant or antiplatelet agents except for NSAID medication. ASA Grade Assessment: II - A patient with mild systemic disease. After reviewing the risks and benefits, the patient was deemed in satisfactory condition to undergo the procedure. The anesthesia plan was to use monitored anesthesia care (MAC). Immediately prior to administration of medications, the patient was re-assessed for adequacy to receive sedatives. The heart rate, respiratory rate, oxygen saturations, blood pressure, adequacy of pulmonary ventilation, and response to care were monitored throughout the procedure. The physical status of the patient was re-assessed after the procedure. After obtaining informed consent, the endoscope was passed under direct vision. Throughout the procedure, the patient's blood pressure, pulse, and oxygen saturations were monitored continuously. The Colonoscope was introduced through the mouth, and advanced to the third part of the duodenum. Small bowel enteroscopy was deemed necessary. The upper GI endoscopy was accomplished without difficulty. The patient tolerated the procedure well. Scope In: Scope Out: 10:08:20 AM Findings: Patchy mild mucosal changes characterized by congestion were found in the gastric body. Biopsies were taken with a cold forceps for histology. Biopsies were taken with a cold forceps for Helicobacter pylori testing. Verification of patient identification for the specimen was done. Estimated blood loss was minimal. Mild portal hypertensive gastropathy was found in the entire examined stomach. Biopsies were taken with a cold forceps for histology. Verification of patient identification for the specimen was done. Estimated blood loss was minimal. Patchy mildly erythematous mucosa without active bleeding and with no stigmata of bleeding was found in the entire duodenum. Biopsies were taken with a cold forceps for histology. Verification of patient identification for the specimen was done. Estimated blood loss was minimal. Impression: - Congested mucosa in the gastric body. Biopsied. - Portal hypertensive gastropathy. Biopsied. - Erythematous duodenopathy. Biopsied. Recommendation: - Discharge patient to home. - Resume previous diet. - Continue present medications. - Await pathology results. Procedure Code(s): --- Professional --- 48178, Small intestinal endoscopy, enteroscopy beyond second portion of duodenum, not including ileum; with biopsy, single or multiple CPT copyright 2021 [employer]. All rights reserved. The codes documented in this report are preliminary and upon integrated circuit ic layout designer review may be revised to meet current compliance requirements. Julius Lovell DO 03/29/2025 10:32:48 AM This report has been signed electronically. Number of Addenda: 0 Note Initiated On: 03/29/2025 10:05 AM
--- NOTE | 2025-03-29 10:34 | PCM.POST.ANE ---
Anesthesia: Postop Eval I Current Vital Signs Temperature: 97 F Pulse Rate: 89 Blood Pressure: 116/44 Respiratory Rate: 18 Pulse Ox: 95 Oxygen Delivery Method: Room Air Assessment Airway patent: Yes Spontaneous unlabored respirations: Yes Mental status: Asleep nausea: No Vomiting: No Anesthesia Complication: No Fluid Hydration Crystalloid volume administer (ml): 800 Total IV fluid infused: 800 Progress Note Anesthesia document: Postop Eval 1 completed: Yes
--- NOTE | 2025-03-29 10:39 | OP.COLON_ITS ---
Patient Name: Rd Garcia Procedure Date: 03/29/2025 10:08 AM Date of : 1965 Age: 59 Procedure: Colonoscopy Indications: Chronic diarrhea Providers: Julius Lovell DO Referring MD: Keren Kwon Medicines: Monitored Anesthesia Care Patient Profile: This is a 59 year old male. Refer to note in patient chart for documentation of history and physical. Patient has symptoms. Last Colonoscopy: more than 10 years ago. Complications: No immediate complications. Procedure: Pre-Anesthesia Assessment: - Prior to the procedure, a History and Physical was performed, and patient medications and allergies were reviewed. The patient is competent. The risks and benefits of the procedure and the sedation options and risks were discussed with the patient. All questions were answered and informed consent was obtained. Patient identification and proposed procedure were verified by the physician in the pre-procedure area. Mental Status Examination: alert and oriented. Airway Examination: normal oropharyngeal airway and neck mobility. Respiratory Examination: clear to auscultation. CV Examination: normal. Prophylactic Antibiotics: The patient does not require prophylactic antibiotics. Prior Anticoagulants: The patient has taken no anticoagulant or antiplatelet agents except for NSAID medication. ASA Grade Assessment: II - A patient with mild systemic disease. After reviewing the risks and benefits, the patient was deemed in satisfactory condition to undergo the procedure. The anesthesia plan was to use monitored anesthesia care (MAC). Immediately prior to administration of medications, the patient was re-assessed for adequacy to receive sedatives. The heart rate, respiratory rate, oxygen saturations, blood pressure, adequacy of pulmonary ventilation, and response to care were monitored throughout the procedure. The physical status of the patient was re-assessed after the procedure. After I obtained informed consent, the scope was passed under direct vision. Throughout the procedure, the patient's blood pressure, pulse, and oxygen saturations were monitored continuously. The Colonoscope was introduced through the anus and advanced to the terminal ileum. The colonoscopy was performed without difficulty. The patient tolerated the procedure well. The quality of the bowel preparation was good. The terminal ileum, ileocecal valve, appendiceal orifice, and rectum were photographed. Scope In: Scope Withdrawal Time 0 hours 10 minutes 53 seconds Scope Out: 10:23:27 AM Findings: The perianal and digital rectal examinations were normal. Multiple small and large-mouthed diverticula were found in the recto-sigmoid colon and sigmoid colon. A 5 mm polyp was found in the sigmoid colon. The polyp was sessile. The polyp was removed with a hot snare. Resection and retrieval were complete. Verification of patient identification for the specimen was done. Estimated blood loss was minimal. An area of congested mucosa was found in the sigmoid colon, in the descending colon, at the splenic flexure and in the ascending colon. Biopsies were taken with a cold forceps for histology. Verification of patient identification for the specimen was done. Estimated blood loss was minimal. The terminal ileum appeared normal. Biopsies were taken with a cold forceps for histology. Impression: - Diverticulosis in the recto-sigmoid colon and in the sigmoid colon. - One 5 mm polyp in the sigmoid colon, removed with a hot snare. Resected and retrieved. - Congested mucosa in the sigmoid colon, in the descending colon, at the splenic flexure and in the ascending colon. Biopsied. - The examined portion of the ileum was normal. Biopsied. Recommendation: - Discharge patient to home. - Resume previous diet. - Continue present medications. - Await pathology results. - Repeat colonoscopy in 5 years for surveillance. Procedure Code(s): --- Professional --- 83352, Colonoscopy, flexible; with removal of tumor(s), polyp(s), or other lesion(s) by snare technique 46611, 59, Colonoscopy, flexible; with biopsy, single or multiple CPT copyright 2021 [employer]. All rights reserved. The codes documented in this report are preliminary and upon medical lead review may be revised to meet current compliance requirements. Julius Lovell DO 03/29/2025 10:38:33 AM This report has been signed electronically. Number of Addenda: 0 Note Initiated On: 03/29/2025 10:08 AM
--- NOTE | 2025-03-29 10:39 | OP.PROVAT_ITS ---
03/29/2025 Keren Kwon Re : Colonoscopy procedure for Rd Garcia Dear Doyle This procedure was performed on Saturday, March 29, 2025. My impressions and recommendations are as follows: Impressions : - Diverticulosis in the recto-sigmoid colon and in the sigmoid colon. - One 5 mm polyp in the sigmoid colon, removed with a hot snare. Resected and retrieved. - Congested mucosa in the sigmoid colon, in the descending colon, at the splenic flexure and in the ascending colon. Biopsied. - The examined portion of the ileum was normal. Biopsied. Recommendations : - Discharge patient to home. - Resume previous diet. - Continue present medications. - Await pathology results. - Repeat colonoscopy in 5 years for surveillance. My findings are described in the full procedure note, which is enclosed. If I can be of further assistance, please feel free to contact me at . Sincerely, Julius Lovell, 03/29/2025 10:38:33 AM This report has been signed electronically.
--- NOTE | 2025-03-29 11:03 | PCM.POSTANE2 ---
Anesthesia Postop Eval I Sum Postop Eval Completion status Anesthesia document: Postop Eval 1 completed: Yes Anesthesia Postop Eval I Summary Anesthesia Postop Eval I Summary: Anesthesia Postop Eval I: Assessment Summary Airway patent Yes 03/29/25 09:57 [email or web address] Spontaneous unlabored Yes 03/29/25 09:57 [email or web address] respirations Mental status Asleep 03/29/25 09:57 [email or web address] nausea No 03/29/25 09:57 [email or web address] Vomiting No 03/29/25 09:57 [email or web address] Anesthesia Postop Eval I: Fluid Summary Crystalloid volume administer 800 03/29/25 09:57 [email or web address] (ml) Colloids volume administered ( ml) Blood Product volume administered (ml) Total IV fluid infused 800 03/29/25 09:57 [email or web address] Anesthesia Postop Eval I: Summary Notes Anesthesia Complication No 03/29/25 09:57 [email or web address] Anesthesia Complication Comment: Post-operative progress note Anesthesia: Postop Eval II Evaluation Mental status: Awake and Calm Pain Level: 1 nausea: No Vomiting: No Complications Anesthesia Complication: No
== END 2025-03-29 11:25 | disposition home or self-care (01) ==
LOC: EN 08:44 → AC 09:26
PROVIDERS: PCP Registered Nurse; Referring Provider Registered Nurse; Visit Provider Internal Medicine Gastroenterology
PROC: 0DJD8ZZ Inspection of Lower Intestinal Tract, Via Natural or Artificial Opening Endoscopic (ICD-10-PCS; CPT 45378; principal; 2025-03-29 09:55)
DX: Z12.11 Encounter for screening for malignant neoplasm of colon (principal); K76.6 Portal hypertension; I50.9 Heart failure, unspecified; I13.0 Hypertensive heart and chronic kidney disease with heart failure and stage 1 through stage 4 chronic kidney disease, or unspecified chronic kidney disease; J44.9 Chronic obstructive pulmonary disease, unspecified; D12.5 Benign neoplasm of sigmoid colon; K29.50 Unspecified chronic gastritis without bleeding; K52.9 Noninfective gastroenteritis and colitis, unspecified; N18.9 Chronic kidney disease, unspecified; K31.89 Other diseases of stomach and duodenum; D69.6 Thrombocytopenia, unspecified; E78.5 Hyperlipidemia, unspecified; I25.10 Atherosclerotic heart disease of native coronary artery without angina pectoris; F10.10 Alcohol abuse, uncomplicated; K76.0 Fatty (change of) liver, not elsewhere classified; K57.30 Diverticulosis of large intestine without perforation or abscess without bleeding; K82.4 Cholesterolosis of gallbladder; K21.9 Gastro-esophageal reflux disease without esophagitis; Z79.82 Long term (current) use of aspirin; Z79.899 Other long term (current) drug therapy; I25.2 Old myocardial infarction; Z86.73 Personal history of transient ischemic attack (TIA), and cerebral infarction without residual deficits; Z87.891 Personal history of nicotine dependence; Z86.0100 Personal history of colon polyps, unspecified; Z80.0 Family history of malignant neoplasm of digestive organs
CPT/HCPCS: 45385; 45380; 43239; 88305; 88342; J2405

== ENCOUNTER → 2025-05-11 | Outpatient (CLI) | payer MEDICAID, SELFPAY ==
[2017-11-21 12:50] VITALS: BMI 32.3
--- NOTE | 2025-05-11 16:34 | RAD_ITS ---
PROCEDURE: CHEST PA AND LATERAL 05/11/2025 REASON FOR EXAM: PAIN TECHNIQUE: Procedure Code: RADCXR Modality: DX Procedure: CHEST PA AND LATERAL COMPARISON: 03/03/2025 FINDINGS: Lungs/Pleura: Clear. Heart/Mediastinum: Normal in size. Bones/Soft tissues: Degenerative changes of the spine. RAD/Chest PA and Lateral IMPRESSION: No acute cardiopulmonary disease. Reading Location: [id number]
--- OUTSIDE RECORDS SUMMARY | 2025-05-11 16:54 | XMS RPT_ITS | CCD ---
Author Organization [facility] CliniSymd Care Team Providers Care Wellness Nurse Rn Name Role Phone EILEEN, CANDELARIO E Unavailable Unavailable EILEEN, CANDELARIO E Unavailable Unavailable EILEEN, CANDELARIO Unavailable Unavailable EILEEN, CANDELARIO Unavailable Unavailable Desmond Tejeda Unavailable Unavailable EILEEN, CANDELARIO Unavailable Unavailable EILEEN, CANDELARIO Unavailable Unavailable Desmond Tejeda Unavailable Unavailable Haagen GUEST SERVICE TEAM LEADER.GORE STITCHER, [facility] Primary Care Provider Haagen GUEST SERVICE TEAM LEADER.GORE STITCHER, [facility] Primary Care Provider Haagen GUEST SERVICE TEAM LEADER.GORE STITCHER, [facility] Primary Care Provider Haagen GUEST SERVICE TEAM LEADER.GORE STITCHER, [facility] Primary Care Provider Dr. Pema Yang Primary Care Provider Dr. Pema Yang Referring Provider Brayden PARTS PULLER, PARTS PULLER-C Vani Attending Provider Haanne PARTS PULLER, PARTS PULLER-C [facility] Primary Care Provider Doyle PARTS PULLER, PARTS PULLER-C Keren Referring Provider Dr. Alejandro Leon Attending Provider Brayden GARRISON, PARTS PULLER-C Vani Referring Provider Brayden GARRISON, PARTS PULLER-C Vani Other Provider Dr. Casey Brewer Attending Provider Dr. Alejandro Leon Referring Provider Dr. Alejandro Leon Other Provider Dr. Will Virk Attending Provider Doyle PARTS PULLER, PARTS PULLER-C [facility] Primary Care Provider [phone] Haagen PARTS PULLER, PARTS PULLER-C Keren Referring Provider Dr. Maggy Tucker Emergency Provider Dr. Lorena Bennett Admit Provider Dr. Lorena Bennett Attending Provider Dr. Lorena Bennett Other Provider Dr. Shakeel Valera Attending Provider Dr. Shakeel Valera Other Provider Haagen PARTS PULLER, PARTS PULLER-C Keren Primary Care Provider Haagen PARTS PULLER, PARTS PULLER-C Keren Referring Provider Dr. Casey Brewer Attending Provider Haagen GUEST SERVICE TEAM LEADER.GORE STITCHER, [facility] Primary Care Provider Haagen GUEST SERVICE TEAM LEADER.GORE STITCHER, [facility] Primary Care Provider Suppan GUEST SERVICE TEAM LEADER.GORE STITCHER, Kathe A Unavailable Mikhail Mancia MD Unavailable Suppan GUEST SERVICE TEAM LEADER.GORE STITCHER, Kathe A Unavailable [phone] Suppan GUEST SERVICE TEAM LEADER.GORE STITCHER, Kathe A Unavailable [phone] Suppan GUEST SERVICE TEAM LEADER.GORE STITCHER, Kathe A Unavailable [phone] Mikhail Mancia MD Unavailable Haagen PARTS PULLER-C, [facility] Primary Care Provider Dr. Jake Mcdonough DO Emergency Provider Dr. Michela Murillo DO Admit Provider Unavail able Dr. Michela Murillo DO Attending Provider Unav ailable Dr. Michela Murillo DO Other Provider Unavail able Lucien ANSARI, Dr. Steiner Attending Provider Dr. Jatin Mcgraw MD Other Provider Dr. Little Gutierrez DO Emergency Provider KEREN KWON Attending Unavailable [facility], [facility] [place] Primary Care Unavailable HAAGEN, KEREN Referring Unavailable ALMA DELIA GARZA Attending Unavailable HAAGEN, KEREN Primary Care Unavailable HAAGEN, KEREN Primary Care Unavailable HAAGEN, KEREN Primary Care Unavailable DESMOND DUNCAN Referring Unavailable HAAGEN, KEREN Attending Unavailable HAAGEN, KEREN Primary Care Unavailable HAAGEN, KEREN Referring Unavailable HAAGEN, KEREN Referring Unavailable HAAGEN, KEREN Primary Care Unavailable JUAREZ HERNÁNDEZ Attending Unavailable HAAGEN, KEREN Primary Care Unavailable HAAGEN, KEREN Referring Unavailable CHRIS DEVLIN Attending Unavailable HAAGEN, KEREN Primary Care Unavailable GARY HUTTON Attending Unavailable HAAGEN, KEREN Attending Unavailable HAAGEN, KEREN Primary Care Unavailable HAAGEN, KEREN Referring Unavailable HAAGEN, KEREN Primary Care Unavailable HAAGEN, KEREN Attending Unavailable HAAGEN, KEREN Primary Care Unavailable HAAGEN, KEREN Primary Care Unavailable JHON DEVLINEL Referring Unavailable HAAGEN, KEREN Attending Unavailable HAAGEN, KEREN Primary Care Unavailable HAAGEN, KEREN Attending Unavailable HAAGEN, KEREN Primary Care Unavailable HAAGEN, KEREN Referring Unavailable HAAGEN, KEREN Primary Care Unavailable HAAGEN, KEREN Primary Care Unavailable MOOMAW ROSA Referring Unavailable HAAGEN, KEREN Primary Care Unavailable HAAGEN, KEREN Referring Unavailable HAAGEN, KEREN Primary Care Unavailable HAAGEN, KEREN Primary Care Unavailable JHON DEVLINEL Referring Unavailable HAAGEN, KEREN Attending Unavailable HAAGEN, KEREN Primary Care Unavailable HAAGEN, KEREN Referring Unavailable HAAGEN, KEREN Primary Care Unavailable HAAGEN, KEREN Referring Unavailable HAAGEN, KEREN Primary Care Unavailable Dr. Little Gutierrez DO Attending Provider Haagen PARTS PULLER-C, Keren Referring Provider [phone] Dr. Julius Lovell DO Attending Provider Dr. Julius Lovell DO Other Provider [phone] Haagen PARTS PULLER, Keren Primary Care Unavailable Haagen PARTS PULLER, Keren Referring Unavailable Estrella Avelar Attending Unavailable Julius Lovell Consulting Unavailable Haagen PARTS PULLER, Keren Primary Care Unavailable Haagen PARTS PULLER, Keren Referring Unavailable Julius Lovell Attending Unavailable Haagen PARTS PULLER, Keren Primary Care Unavailable Haagen PARTS PULLER, Keren Referring Unavailable Julius Lovell Attending Unavailable Haagen PARTS PULLER, Keren Referring Unavailable Haagen PARTS PULLER, Keren Primary Care Unavailable Nas Julius Attending Unavailable Nik Campbell Referring Unavailable Nik Campbell Attending Unavailable [facility] PARTS PULLER, [facility] Care Unavailable [facility] PARTS PULLER, [facility] [place] Unavailable Little Gutierrez Attending Unavailable agen PARTS PULLER, [facility] Care Unavailable Michela Murillo Consulting Unavailable Michela Murillo Admitting Unavailable Jatin Mcgraw Attending Unavailable Doyle PARTS PULLER, [facility] Care Unavailable Sherine Mobley Attending Unavailable Doyle PARTS PULLER, [facility] [place] Unavailable Michela Murillo Admitting Unavailable Michela Murillo Consulting Unavailable Jatin Mcgraw Attending Unavailable Jatin Mcgraw Consulting Unavailable Michela Murillo Attending Unavailable [facility] PARTS PULLER, [facility] [place] Unavailable [facility] PARTS PULLER, [facility] Referring Unavailable Phu Lockwood Attending Unavailable Allergies Allergy Classification Reported Allergen(s) Allergy Type Date of Onset Reaction(s) Facility (20 sources) pseudoephedrine; Translations: [PSEUDOEPHEDRINE ] Drug Allergy 6 Other: See Comments [facility] Other [facility] Medications Current Medications Medication Drug Class(es) Dates Sig (Normalized) Sig (Original) carvedilol 25 mg oral tablet (20 sources) alpha-Adrenergic Mandy, beta-Adrenergic Mandy Start: 08-31-2024 End: 03-16-2025 take 1 tablet by mouth twice daily at mealtime Carvedilol 25 mg tablet Active 25 mg PO TWICE A DAY September 29, 2024 12:00am must administer with a meal/food Start: 08-24-2024 End: 08-31-2024 take 1 tablet [...] 2 08/11/2024 08/24/2024 Discontinued (Dosage adjustment) Start: 10-14-2023 End: 09-29-2024 take 1 tablet by mouth twice daily at mealtime Carvedilol 3.125 mg tablet Discontinued 3.125 mg PO TWICE A DAY 180 3 October 14, 2023 12:00am September 29, 2024 2:04pm must administer with a meal/food Start: 01-21-2023 End: 06-12-2024 take 1 tablet by mouth twice daily at mealtime Carvedilol 12.5 mg tablet Discontinued 12.5 mg PO TWICE A DAY October 14, 2023 1:25pm October 14, 2023 1:40pm must administer with a meal/food Start: 12-24-2022 End: 10-14-2023 take 6.25 mg by mouth twice daily at mealtime Carvedilol 12.5 mg tablet Discontinued 6.25 mg PO TWICE A DAY December 24, 2022 9:34am October 14, 2023 1:27pm must administer with a meal/food Start: 12-24-2022 [...] Discontinued (Other) Start: 12-31-2019 End: 12-24-2022 take 1 tablet by mouth twice daily at mealtime Carvedilol 12.5 mg tablet Discontinued 12.5 mg PO TWICE A DAY 60 December 31, 2019 12:00am December 24, 2022 9:39am must administer with a meal/food Start: 06-04-2019 End: 12-31-2019 take 1 tablet by mouth twice daily Carvedilol 6.25 MG tablet Discontinued 6.25 mg PO TWICE A DAY 60 0 June 04, 2019 1:00am December 31, 2019 2:56pm Comment on above: Take 1 tablet by rita twice daily. cyclobenzaprine hydrochloride 10 mg oral tablet (20 sources) Muscle Relaxant Start: 06-17-20 End: 03-07-20 take 1 tablet by mouth once daily as needed for pain Cyclobenzaprine 10 mg tablet Active 10 mg PO DAILY as needed for Pain October 14, 2023 1:25pm Comment on above: Take 1 tablet by [...] tablet (20 sources) Start: 11-02-19 End: 11-25-19 take 1 tablet by mouth once daily Folic Acid 1 mg tablet Active 1 mg PO DAILY October 14, 2023 12:00am Comment on above: Take 1 tablet by [...] EACH PO DAILY November 21, 2017 12:00am magnesium oxide 400 mg oral tablet (20 sources) Start: 10-14-2023 take 1 tablet by mouth once daily Magnesium Oxide 400 mg (241.3 mg magnesium) tablet Active 400 mg PO DAILY October 14, 2023 1:26pm Start: 04-01-2023 End: 10-14-2023 take 1 tablet by mouth twice daily Magnesium Oxide 400 mg (241.3 mg magnesium) tablet Discontinued 400 mg PO TWICE A DAY April 01, 2023 [...] on above: Take 1 capsule by mo ut once daily. Take 1 capsule by mo ut three times daily. Multivitamin (Daily Multi-Vitamin) tablet (4 sources) Start: 01-28-2025 Multivitamin (Daily Multi-Vitamin) tablet Active 1 {tbl} PO DAILY January 28, 2025 12:00am nitroglycerin 0.4 mg sublingual tablet (20 sources) Nitrate Vasodilator Start: 03-14-2017 End: 12-24-2022 Nitroglycerin 0.4 mg tablet, sublingual Active 0.4 mg SL Q5M as needed for Chest Pain 13 10December 24, 2022 9:45am Start: 03-14-2017 End: 12-24-2022 Nitroglycerin Active 0.4 MG SL Q5M December 24, 2022 9:45am Comment on above: Dissolve 1 tablet un silver the tongue as needed. FOR CHEST PAIN. IF NO RELIEF CALL 911 omeprazole 20 mg delayed release oral capsule (20 sources) Proton Pump Inhibitor Start: 06-17-2014 End: 06-12-2024 take 1 capsule by mouth once daily Omeprazole 20 MG capsule Active 20 mg PO DAILY June 17, 2014 1:00am heart burn Comment on above: Take 1 capsule by mo ut daily before breakfast. 1/2 hr before meal. predniSONE 10 mg oral tablet (14 sources) Start: 12-11-2024 End: 12-23-2024 predniSONE (DELTASONE) 10 mg tablet Indications: Foot [...] take 1 tablet by mouth once daily Thiamine Hcl (Vitamin B1) 100 mg tablet Active 100 mg PO DAILY October 14, 2023 12:00am Comment on above: Take 1 tablet by rita once daily. traZODone hydrochloride 50 mg oral tablet (20 sources) Serotonin Reuptake Inhibitor Start: 09-30-19 take 2 tablets by mouth at bedtime Trazodone 50 mg tablet Active 100 mg PO AT BEDTIME September 29, 2024 2:05pm Start: 09-28-2024 End: 03-16-2025 take 1 tablet by mouth once daily at bedtime traZODone (DESYREL) 100 mg tablet Indications: Chronic insomnia Take 1 tablet by mouth daily at bedtime. 90 tablet 1 03/16/2025 Active Start: 10-26-2020 End: 09-29-2024 take 1 tablet by mouth at bedtime Trazodone 50 mg tablet Discontinued 50 mg PO AT BEDTIME December 24, 2022 12:00am September 29, 2024 2:06pm Comment on above: Take 1 tablet by rita at bedtime as needed. triamcinolone acetonide 0.001 mg/mg topical ointment (2 sources) Corticosteroid Start: 02-24-20 End: 03-09-20 triamcinolone acetonide (KENALOG) 0.1 % ointment Indications: Dermatitis Apply to affected area twice daily for 14 days. 15 g 0 02/23/2022 03/09/2022 Active Comment on above: Apply to affected ar ea twice daily for 14 days. vitamin b12 0.1 mg oral tablet (4 sources) Vitamin B12 Start: 01-29-20 take 1 tablet by mouth once daily Cyanocobalamin (Vitamin B-12) (Vitamin B-12) 100 mcg tablet Active 100 ug PO DAILY January 28, 2025 12:00am Completed/Discontinued Medications Medication Drug Class(es) Dates Sig [...] every 6 hours as needed for Pain. [id number] 200 actuat albuterol 0.09 mg/actuat metered dose inhaler (20 sources) beta2-Adrenergic Agonist Start: 10-26-2020 End: 04-13-2022 take 2 puff(s) by inhalation every four hours as needed for wheezing albuterol HFA (VENTOLIN HFA) 90 mcg/actuation inhaler Inhale 2 Puffs as instructed every 4 hours as needed for Wheezing/Shortness of Breath. 18 g 1 10/26/2020 11/01/2021 Discontinued (Other) Start: 05-28-2019 End: 10-14-2023 Albuterol Sulfate 90 mcg/act uation HFA aerosol inhaler Discontinued 2 NMA INHALATION Q4H as needed for shortness of breath or wheezing 8.5 6 January 09, 2023 12:00am April 01, 2023 2:10pm administer with spacer Start: 05-28-2019 End: 10-14-2023 take 1 puff(s) by inhalation every four hours Albuterol Sulfate Discontinued 2 PUFF INHALATION Q4H 8.5 January 09, 2023 12:00am April 01, 2023 2:10pm administer with spacer Comment on above: Inhale 2 Puffs as in structed every 4 hours as needed for Wheezing/Shortness of Breath. Amino Acids (11 sources) Start: 11-21-2017 End: 11-23-2017 Amino Acids Discontinued 700 MG PO November 21, 2017 10:26am November 23, 2017 9:07am Start: 11-21-2017 End: 11-23-2017 Amino Acids 700 MG tablet Di scontinued 700 mg PO November 21, 2017 12:00am November 23, 2017 9:07am supplement Start: 11-21-2017 End: 11-23-2017 Amino Acids Discontinued 700 MG PO November 21, 2017 12:00am November 23, 2017 9:07am amLODIPine 5 mg oral tablet (20 sources) Dihydropyridine Calcium Channel Mandy Start: 01-21-2023 End: 06-12-2024 take 1 tablet by mouth once daily Amlodipine 5 mg tablet Discontinued 5 mg PO DAILY October 14, 2023 12:00am October 14, 2023 1:39pm Start: 06-04-2019 End: 10-14-2023 take 1 tablet by mouth once daily Amlodipine 10 MG tablet Discontinued 10 mg PO DAILY 30 0 June 04, 2019 1:00am October 14, 2023 1:24pm Comment on above: Take 1 tablet by rita once daily. amoxicillin 875 mg / clavulanate 125 mg oral tablet (11 sources) Penicillin-class Antibacterial Start: 05-12-20 End: 12-25-19 Amoxicillin-Pot Clavulanate (Augmentin) 875-125 mg tablet Discontinued 1 {tbl} PO TWICE A DAY May 12, 2021 12:00am December 24, 2022 9:35am aspirin 81 mg delayed release oral tablet (20 sources) Platelet Aggregation Inhibitor, Nonsteroidal Anti-inflammatory Drug Start: 06-17-20 End: 10-28-19 take 1 tablet by mouth once daily Aspirin 81 mg tablet,delayed release (DR/EC) Discontinued 81 mg PO DAILY October 14, 2023 1:39pm October 27, 2024 7:57am heart Comment on above: Take 1 tablet by rita th once daily. atorvastatin 40 mg oral tablet (20 sources) HMG-CoA Reductase Inhibitor Start: 10-14-19 End: 10-28-19 take 1 tablet by mouth at bedtime Atorvastatin 40 mg tablet Active 40 mg PO AT BEDTIME 90 October 27, 2024 7:57am On Hold: Hold for 7 days Start: 11-23-2017 End: 06-12-2024 take 1 tablet by mouth at bedtime Atorvastatin 80 mg tablet Discontinued 80 mg PO AT BEDTIME 30 December 20, 2017 11:30am October 14, 2023 1:40pm Start: 03-15-2017 End: 11-23-2017 take 1 tablet by mouth once daily Atorvastatin Calcium 40 MG tablet Discontinued 40 mg PO DAILY November 21, 2017 10:26am November 23, 2017 9:08am cholesterol Comment on above: Take 1 tablet by rita th daily at bedtime. benzocaine 15 mg / menthol 3.6 mg oral lozenge (20 sources) Standardized Chemical Allergen Start: End: Benzocaine-Menthol 15-3.6 mg lozenge Discontinued 1 NMA MUCOUS MEM Q2H as needed September 29, 2024 12:00am January 28, 2025 10:52am benzonatate 100 mg oral capsule (1 source) Non-narcotic Antitussive Start: End: take 2 capsules by mouth three times daily as needed benzonatate (TESSALON PERLE) 100 mg capsule Indications: Viral URI with cough Take 2 capsules by mouth three times daily as needed. 42 capsule 0 09/07/2019 11/01/2021 Discontinued (Other) Comment on above: Take 2 capsules by out three times daily as needed. betamethasone 3 mg/ml / betamethasone acetate 3 mg/ml injectable suspension (2 sources) Corticosteroid Start: End: betamethasone acetate-betamethason e sodium phosphate 6 mg injection (CELESTONE) Start: 10-07-2024 End: 10-07-2024 6 mg, Injection - FOR ORTHO USE ONLY, ONCE, 1 dose, Starting on Sat10/07/24 at 1403, Until Sat10/07/24 at 1403 bisacodyl 5 mg delayed release oral tablet (4 sources) Stimulant Laxative Start: 06-29-2024 End: 01-28-2025 take 1 tablet by mouth once Bisacodyl 5 mg tablet,delayed release (DR/EC) Discontinued 5 mg PO ONCE 8 0 June 29, 2024 1:00am January 28, 2025 10:52am Encounter for screening for malignant neoplasm of colon Encounter for screening for malignant neoplasm of colon colonoscopy prep Take per prep instructions 30 ml bupivacaine hydrochloride 5 mg/ml injection [...] Take 1 tablet by rita once daily. busPIRone hydrochloride 10 mg oral tablet (20 sources) Start: 09-29-2024 End: 01-28-2025 take 7.5 mg by mouth three times daily Buspirone 10 mg tablet Discontinued 7.5 mg PO THREE TIMES A DAY September 29, 2024 2:03pm January 28, 2025 10:52am depression Start: 09-28-2024 End: 03-16-2025 take 1 tablet by mouth three times daily Buspirone 7.5 mg tablet Active 7.5 mg PO THREE TIMES A DAY September 29, 2024 12:00am Start: 10-14-2023 End: 09-29-2024 take 5 mg by mouth three times daily Buspirone 10 mg tablet Discontinued 5 mg PO THREE TIMES A DAY October 14, 2023 1:25pm September 29, 2024 2:06pm depression Start: 10-14-2023 take 5 mg by mouth [...] 09/28/2024 Discontinued Start: 05-28-2019 End: 10-14-2023 take 1 tablet by mouth three times daily Buspirone 10 MG tablet Discontinued 10 mg PO THREE TIMES A DAY May 28, 2019 1:00am October 14, 2023 1:27pm depression Comment on above: Take 1 tablet by rita th three times daily as needed. Take 1 tablet by rita th three times daily. clopidogrel 75 mg oral tablet (20 sources) P2Y12 Platelet Inhibitor Start: 018 End: take 1 tablet by mouth once daily Clopidogrel (Plavix) 75 mg tablet Discontinued 75 mg PO daily 20 07December 20, 2017 11:29am September 29, 2018 1:00pm dicyclomine hydrochloride 10 mg oral capsule (10 sources) Anticholinergic Start: 023 End: take 2 capsules by mouth every six hours as needed for pain Dicyclomine 10 mg capsule Discontinued 20 mg PO EVERY 6 HOURS as needed for abdominal pain January 02, 2023 11:00am October 14, 2023 1:26pm Start: 01-02-2023 End: 10-14-2023 take 20 mg by mouth every six hours Dicyclomine Discontinued 20 MG PO EVERY 6 HOURS January 02, 2023 11:00am October 14, 2023 1:26pm ezetimibe 10 mg oral tablet (20 sources) Dietary Cholesterol Absorption Inhibitor Start: 11-09-2021 End: 06-12-2024 take 1 tablet by mouth once daily Ezetimibe 10 mg tablet Discontinued 10 mg PO DAILY April 01, 2023 12:00am October 14, 2023 1:41pm Comment on above: Take 1 tablet by rita th once daily. famotidine 20 mg oral tablet (11 sources) Histamine-2 Receptor Antagonist Start: 09-29-2018 End: 12-24-2022 take 1 tablet by mouth once daily Famotidine 20 mg tablet Discontinued 20 mg PO DAILY September 29, 2018 12:00am December 24, 2022 9:34am reflux fluticasone propionate 0.05 mg/actuat metered dose nasal [...] / losartan potassium 100 mg oral tablet (11 sources) Thiazide Diuretic, Angiotensin 2 Receptor Mandy Start: 06-17-2016 End: 11-23-2017 Losartan-Hydroch lorothiazide 1 EACH tablet Discontinued 1 NMA PO DAILY June 17, 2016 1:00am November 23, 2017 9:07am blood pressure Start: 06-17-2016 End: 11-23-2017 Losartan-Hydrochlorothiazide Discontinued 1 EACH PO DAILY June 17, 2016 1:00am November 23, 2017 9:07am 2 ml ketorolac tromethamine 30 mg/ml injection (13 sources) Nonsteroidal Anti-inflammatory Drug, Cyclooxygenase Inhibitor Start: [...] ketorolac (Toradol). Start: 05-28-2019 End: 12-31-2019 take 1 tablet by mouth every six hours as needed for pain Ketorolac 10 MG tablet Discontinued 10 mg PO EVERY 6 HOURS as needed for Pain Score 1-04/30 14 0 May 28, 2019 5:11pm December 31, 2019 2:36pm L. gasseri-B. bifidum-B longum (PROBIOTIC COLON SUPPORT) 1.5 billion cell cap (1 source) Start: 07-23-2019 End: 11-01-2021 L. gasseri-B. bifidum-B longum (PROBIOTIC COLON SUPPORT) 1.5 billion cell cap Take by mouth. 0 07/23/2019 11/01/2021 Discontinued (Other) Comment on above: Take by mouth. L.Acidoph,Paracasei, B.Animalis 1 EACH capsule (4 sources) Start: 11-21-2017 End: 10-14-2023 take 1 capsule by mouth once daily L.Acidoph,Paracase i,B.Animalis 1 EACH capsule Discontinued 1 NMA PO DAILY November 21, 2017 12:00am October 14, 2023 1:26pm supplement lansoprazole 30 mg delayed release oral capsule (1 source) Proton Pump Inhibitor Start: 08-24-2020 End: 11-01-2021 take 1 capsule by mouth once daily lansoprazole (PREVACID) 30 mg capsule Indications: GERD without esophagitis Take 1 capsule by mouth once daily. 30 capsule 5 08/24/2020 11/01/2021 Discontinued (Other) Comment on above: Take 1 capsule by [facility]. 10 ml lidocaine hydrochloride 10 mg/ml injection (2 sources) Antiarrhythmic, Amide Local Anesthetic Start: 10-07-2024 End: 10-07-2024 lidocaine (PF) 10 mg/mL (1 %) 2 mL injection (XYLOCAINE) Start: 10-07-2024 End: 10-07-2024 2 mL, Injection - FOR ORTHO USE ONLY, ONCE, 1 dose, Starting on Sat10/07/24 at 1403, Until Sat10/07/24 at 1403 lisinopril 10 mg oral tablet (20 sources) Angiotensin Converting Enzyme Inhibitor Start: 08-24-2024 End: 03-16-2025 take 1 tablet by mouth once daily Lisinopril 10 mg tablet Active 10 mg PO daily September 29, 2024 12:00am On Hold: Hold for week follow-up with BMP PCP before resumption. Start: 12-31-2019 End: 06-12-2024 take 1 tablet by mouth once daily Lisinopril 10 mg tablet Discontinued 10 mg PO DAILY 90 May 30, 2023 9:33am October 14, 2023 1:41pm Start: 06-04-2019 End: 12-31-2019 take 2 tablets by mouth once daily Lisinopril 5 mg tablet Discontinued 10 mg PO DAILY 30 June 04, 2019 12:35pm December 31, 2019 2:37pm Start: 06-04-2019 End: 12-31-2019 take 10 mg by mouth once daily Lisinopril Discontinued 10 MG PO DAILY June 04, 2019 12:35pm December 31, 2019 2:37pm Start: 11-23-2017 End: 06-04-2019 take 1 tablet by mouth once daily Lisinopril 5 mg tablet Discontinued 5 mg PO DAILY 20 07December 20, 2017 11:29am June 04, 2019 12:36pm Comment on above: Take 1 tablet by rita once daily. melatonin 3 mg oral tablet (20 sources) Start: 12-31-2019 End: 12-24-2022 take 1 tablet by mouth at bedtime as needed Melatonin 3 mg tablet Discontinued 3 mg PO BEDTIME as needed December 31, 2019 12:00am December 24, 2022 9:37am Start: 11-21-2017 End: 09-29-2018 take 1 tablet by mouth once daily Melatonin 3 MG tablet Discontinued 3 mg PO DAILY November 21, 2017 12:00am September 29, 2018 12:59pm sleep aid Comment on above: Take by mouth. meloxicam 15 mg oral tablet (1 source) Nonsteroidal Anti-inflammatory Drug Start: End: 2 take 1 tablet by mouth once daily at mealtime meloxicam (MOBIC) 15 mg tablet Indications: Acute right-sided low back pain without sciatica , Right hip pain Take 1 tablet by mouth once daily. With food. 30 tablet 1 10/26/2020 11/01/2021 Discontinued (Other) Comment on above: Take 1 tablet by rita th once daily. With food. metoprolol tartrate 25 mg oral tablet (20 sources) beta-Adrenergic Mandy Start: 1 End: 3 take 1 tablet by mouth twice daily Metoprolol Tartrate 25 mg Tablet Discontinued 25 mg PO TWICE A DAY May 12, 2021 12:00am December 24, 2022 9:37am Start: 09-29-2018 End: 06-04-2019 take 1 tablet by mouth twice daily Metoprolol Tartrate 25 mg tablet Discontinued 25 mg PO TWICE A DAY September 29, 2018 12:59pm June 04, 2019 12:35pm heart rate Start: 11-23-2017 End: 09-29-2018 Metoprolol Tartrate 25 mg ta blet Discontinued 12.5 mg PO TWICE A DAY 60 11 December 20, 2017 11:30am September 29, 2018 1:00pm Start: 11-23-2017 End: 09-29-2018 take 12.5 mg by mouth twice daily Metoprolol Tartrate Discontinued 12.5 MG PO TWICE A DAY 60 December 20, 2017 11:30am September 29, 2018 1:00pm Start: 06-17-2014 End: 11-23-2017 take 2 tablets by mouth twice daily Metoprolol Tartrate 25 MG tablet Discontinued 50 mg PO TWICE A DAY June 17, 2014 1:00am November 23, 2017 9:07am fast heart rate Start: 06-17-2014 End: 11-23-2017 take 50 mg by mouth twice daily Metoprolol Tartrate Di scontinued 50 MG PO TWICE A DAY June 17, 2014 1:00am November 23, 2017 9:07am naltrexone 380 mg injection (11 sources) Opioid Antagonist Start: 01-12-2019 End: 12-24-2022 inject 380 mg by intramuscular injection every month Naltrexone Microspheres 380 MG suspension,extended rel recon Discontinued 380 mg IM EVERY MONTH January 12, 2019 12:00am December 24, 2022 9:37am etoh cessation 24 hr nicotine 0.583 mg/hr transdermal system (11 sources) Cholinergic Nicotinic Agonist Start: 11-23-2017 End: 12-20-2017 apply 14 mg transdermal route once daily Nicotine 14 MG patch Discontinued 14 mg TRANSDERM. DAILY 30 0 November 23, 2017 12:00am December 20, 2017 11:28am [place]-3 Fatty Acids (4 sources) Start: 06-29-2024 End: 09-29-2024 take 1 capsule by mouth once daily [place]-3 Fatty Acids 1,250 mg capsule Discontinued 1250 mg PO daily June 29, 2024 1:00am September 29, 2024 2:06pm ondansetron 4 mg disintegrating oral tablet (20 sources) Serotonin-3 Receptor Antagonist Start: 01-02-2023 End: 04-01-2023 take 2 tablets by mouth every eight hours as needed for nausea Ondansetron 4 mg tablet,disintegrating Discontinued 8 mg PO EVERY 8 HOURS NEEDED as needed for Nausea 20 January 02, 2023 12:00am April 01, 2023 2:12pm Start: 01-02-2023 End: 04-01-2023 take 8 mg by mouth every eight hours as needed Ondansetron Discontinued 8 MG PO EVERY 8 HOURS NEEDED January 02, 2023 12:00am April 01, 2023 2:12pm Start: 05-12-2021 End: 10-14-2023 take 1 tablet by mouth every eight hours as needed for nausea and vomiting Ondansetron 4 mg tablet,disintegrating Discontinued 4 mg PO Q8H as needed for nausea and vomiting 10 0 May 12, 2021 12:00am October 14, 2023 1:26pm polyethylene glycol 3350 72482 mg powder for oral solution (16 sources) Osmotic Laxative Start: 06-29-2024 End: 09-29-2024 take 238 g by mouth once Polyethylene Glycol 3350 17 gram/dose powder Discontinued 238 g PO ONCE 238 0 June 29, 2024 1:00am September 29, 2024 2:06pm Encounter for screening for malignant neoplasm of colon Encounter for screening for malignant neoplasm of colon colonoscopy prep Take per prep instructions Start: 05-12-2019 End: 12-24-2022 Polyethylene Glycol 3350 (Mi ralax) 17 gram/dose Powder Discontinued 17 g PO DAILY May 12, 2021 12:00am December 24, 2022 9:36am Comment on above: Take 17 g by mouth o nce daily. QUEtiapine 50 mg oral tablet (12 sources) Atypical Antipsychotic Start: End: take 1 tablet by mouth twice daily QUEtiapine (SEROQUEL) 50 mg tablet Take 1 tablet by mouth twice daily. 0 11/01/2021 11/01/2021 Discontinued (Other) Start: 09-29-2018 End: 12-24-2022 Quetiapine (Seroquel) 50 mg tablet Discontinued 75 mg PO AT BEDTIME as needed for Insomnia September 29, 2018 12:00am December 24, 2022 9:36am Comment on above: Take 1 tablet by rita twice daily. sertraline 50 mg oral tablet [...] 0 10/26/2020 11/01/2021 Discontinued (Other) Start: 05-28-2019 End: 06-29-2024 Sertraline 100 MG tablet Discontinued 50 mg PO DAILY May 28, 2019 1:00am June 29, 2024 3:06pm depression Start: 05-28-2019 take 50 mg by mouth once daily Sertraline Active 50 MG PO DAILY May 28, 2019 1:00am Comment on above: 1/2 pill daily X 1 w [place]; then increase to a whole pill daily. Take 2 tablets by mo ut once daily. One pill by mouth da kehinde simvastatin 40 mg oral tablet (11 sources) HMG-CoA Reductase Inhibitor Start: 06-17-2016 End: 03-15-2017 Simvastatin 40 MG tablet Discontinued 1 {tbl} PO AT BEDTIME June 17, 2016 1:00am March 15, 2017 10:48am Start: 06-17-2016 End: 03-15-2017 take 1 tablet by mouth at bedtime Simvastatin Discontinued 1 TABLET PO AT BEDTIME June 17, 2016 1:00am March 15, 2017 10:48am ticagrelor 90 mg oral tablet (20 sources) Start: 05-12-2021 End: 12-24-2022 take 1 tablet by mouth twice daily Ticagrelor 90 mg Tablet Discontinued 90 mg PO TWICE A DAY May 12, 2021 12:00am December 24, 2022 9:38am Start: 11-23-2017 End: 12-20-2017 take 1 tablet by mouth twice daily Ticagrelor 90 MG tablet Discontinued 90 mg PO TWICE A DAY 30 0 November 23, 2017 12:00am December 20, 2017 11:21am Problems Active Problems Problem Classification Problem Date Documented Da te Episodic/Chronic Abdominal pain (20 sources) Left lower quadrant pain; Translations: [Left lower quadrant pain] Onset: 5 11-16-2021 Episodic Acute and unspecified renal failure (20 sources) Injury of kidney; Translations: [Acute kidney failure, unspecified] Onset: 5 11-16-2021 Episodic Acute myocardial infarction (20 sources) Myocardial infarction; Translations: [Non-ST elevation (NSTEMI) myocardial infarction] Onset: 8 11-29-2017 Chronic Comment on above: S/P PTCA/JUSTIN to LCx in November 2017; Alcohol-related disorders (20 sources) Persistent alcohol abuse ; Translations: [Alcohol abuse, uncomplicated] Onset: 4 Chronic Alcohol-related disorders (11 sources) Alcohol intoxication; Translations: [Alcohol use, unspecified with intoxication, unspecified] 05-31-2019 Episodic Allergic reactions (1 source) Inflammatory dermatosis; Translations: [Dermatitis, unspecified] Episodic Anxiety disorders (20 sources) Mixed anxiety and depressive disorder; Translations: [Anxiety disorder, unspecified] Onset: 4 Chronic Chronic kidney disease (20 sources) Chronic renal insufficiency; Translations: [Chronic kidney disease, unspecified] 11-16-2021 Chronic Chronic obstructive pulmonary disease and bronchiectasis (20 sources) Acute exacerbation of chronic obstructive airways disease; Translations: [Chronic obstructive pulmonary disease with (acute) exacerbation] 01-09-2023 Chronic Comment on above: very mild Coagulation and hemorrhagic disorders (5 sources) Thrombocytopenic disorder; Translations: [Thrombocytopenia, unspecified] Chronic Coronary atherosclerosis and other heart disease (20 sources) Coronary atherosclerosis; Translations: [Atherosclerotic heart disease of [place] coronary artery without angina pectoris] Onset: 4 05-31-2019 Chronic Comment on above: Drug-eluting stent p lacement to the left circumflex in 2018 Coronary atherosclerosis and other heart disease (20 sources) Drug coated stent in circumflex branch of left coronary artery; Translations: [Presence of coronary angioplasty implant and graft] Onset: 8 Episodic Comment on above: November [id number] [facility] to mid circumflex Deficiency and other anemia (1 source) Increased hemoglobin; Translations: [Other hemoglobinopathies] 08-07-2024 Chronic Deficiency and other anemia (1 source) Other hemoglobinopathies; Translations: [Elevated hemoglobin (HCC)] Onset: 5 Chronic Diabetes mellitus without complication (1 source) Increased glucose level; Translations: [Other abnormal glucose] Episodic Diseases of white blood cells (7 sources) Leukocytosis; Translations: [Elevated white blood cell count, unspecified] Onset: 5 03-04-2025 Chronic Disorders of lipid metabolism (20 sources) Hypertriglyceridemia; Translations: [Pure hyperglyceridemia] Onset: 4 Chronic Diverticulosis and diverticulitis (12 sources) Diverticulitis; Translations: [Diverticulitis of intestine, part unspecified, without perforation or abscess without bleeding] Chronic E Codes: Adverse effects of medical drugs (7 sources) Adverse reaction to drug; Translations: [Adverse effect of unspecified drugs, medicaments and biological substances, initial encounter] Onset: 5 03-04-2025 Episodic Esophageal disorders (20 sources) Gastroesophageal reflux disease without esophagitis; Translations: [Gastro-esophageal reflux disease without esophagitis] Onset: 3 Chronic Essential hypertension (20 sources) Essential (primary) hypertension; Translations: [Essential hypertension] Onset: 7 Chronic Fluid and electrolyte disorders (20 sources) Hyperkalemia; Translations: [Hyperkalemia] Onset: 5 Episodic Gout and other crystal arthropathies (2 sources) Gouty arthritis of left knee; Translations: [Gout, unspecified] Onset: 5 08-24-2024 Chronic Hyperplasia of prostate (1 source) Benign prostatic hypertrophy with outflow obstruction; Translations: [Benign prostatic hyperplasia with lower urinary tract symptoms] 09-28-2024 Chronic Influenza (1 source) Influenza-like illness; Translations: [Influenza due to unidentified influenza virus with other respiratory manifestations] 04-08-2023 Episodic Malaise and fatigue (13 sources) Fatigue; Translations: [Other fatigue] Episodic Miscellaneous mental health disorders (7 sources) Chronic insomnia; Translations: [Psychophysiologic insomnia] Onset: 4 Chronic Mood disorders (14 sources) Depressive disorder; Translations: [Depression] Onset: 5 03-20-2018 Chronic Mood disorders (1 source) Mood disorders; Translations: [Anxiety and depression] Onset: 4 Nausea and vomiting (20 sources) Nausea, vomiting and diarrhea; Translations: [Nausea [...] colonic polyps] 06-22-2024 Episodic Other circulatory disease (8 sources) Disorder of carotid artery; Translations: [Disorder [...] elbow] 10-07-2024 Episodic Other connective tissue disease (6 sources) Rhabdomyolysis; Translations: [Rhabdomyolysis] 03-04-2025 Episodic Other connective tissue disease (1 source) Non-traumatic rhabdomyolysis; Translations: [Rhabdomyolysis] 03-09-2025 Episodic Other connective tissue disease (2 sources) Rhabdomyolysis; Translations: [Non-traumatic rhabdomyolysis] Onset: Episodic Other diseases of kidney and ureters (1 source) Abnormal renal function; Translations: [Disorder of kidney and ureter, unspecified] Episodic Other gastrointestinal disorders (8 sources) Diarrhea; Translations: [Diarrhea, unspecified] 02-09-2025 Episodic Other gastrointestinal disorders (5 sources) Heartburn; Translations: [Heartburn] 09-29-2024 Episodic Other gastrointestinal disorders (2 sources) Diarrhea, unspecified; Translations: [Diarrhea, unspecified type] Onset: Episodic Other gastrointestinal disorders (2 sources) Heartburn; Translations: [Heartburn] Onset: Episodic Other injuries and conditions due to external causes (2 sources) Injury of right elbow region; Translations: [Unspecified injury of right elbow, initial encounter] 07-09-2024 Episodic Other liver diseases (10 sources) Steatosis of liver; Translations: [Fatty (change of) liver, not elsewhere classified] 09-29-2024 Chronic Other liver diseases (2 sources) Fatty (change of) liver, not elsewhere classified; Translations: [Fatty (change of) liver, not elsewhere classified] Onset: Chronic Other liver diseases (1 source) Elevated liver enzymes level; Translations: [Abnormal levels of other serum enzymes] Episodic Other liver diseases (7 sources) Enzyme level - finding; Translations: [Elevated transaminase measurement] 05-13-2023 Episodic Other liver diseases (4 sources) Alkaline phosphatase raised; Translations: [Abnormal levels of other serum enzymes] 08-07-2024 Episodic Other liver diseases (3 sources) Hepatosplenomegaly; Translations: [Hepatomegaly with splenomegaly, not elsewhere classified] 08-29-2024 Episodic Other lower respiratory disease (1 source) Snoring; Translations: [Snoring] Episodic Other lower respiratory disease (11 sources) Hypoxia; Translations: [Hypoxemia] 05-31-2019 Episodic Other lower respiratory disease (1 source) Cough; Translations: [Acute cough] Episodic Other lower respiratory disease (10 sources) Dyspnea on exertion; Translations: [Other forms of dyspnea] 12-24-2022 Episodic Other lower respiratory disease (20 sources) Nodule of lung; Translations: [Solitary pulmonary [...] Episodic Other nutritional; endocrine; and metabolic disorders (17 sources) Obese class I; Translations: [Obesity, unspecified] 03-20-2018 Chronic Other nutritional; endocrine; and metabolic disorders (3 sources) Hypomagnesemia; Translations: [Hypomagnesemia] Chronic Other nutritional; endocrine; and metabolic disorders (6 sources) Hyperbilirubinemia; Translations: [Other disorders of bilirubin metabolism] 05-13-2023 Chronic Other nutritional; endocrine; and metabolic disorders (1 source) Other disorders of bilirubin metabolism; Translations: [Jaundice, unspecified, not of ] 05-16-2023 Chronic Other nutritional; endocrine; and metabolic disorders (1 source) Hypomagnesemia; Translations: [Hypomagnesemia] Onset: 4 Chronic Other screening for suspected conditions (not mental disorders or infectious disease) (20 sources) Patient encounter status; Translations: [Encounter for screening for cardiovascular disorders] Onset: 4 Episodic Other upper respiratory disease (20 sources) Seasonal allergy; Translations: [Other seasonal allergic rhinitis] Onset: 4 02-05-2014 Chronic Other upper respiratory infections (1 source) Chronic sinusitis; Translations: [Chronic sinusitis, unspecified] Chronic Other upper respiratory infections (2 sources) Acute upper respiratory infection; Translations: [Acute upper respiratory infection, unspecified] Episodic Pneumonia (except that caused by tuberculosis or sexually transmitted disease) (11 sources) Community acquired pneumonia; Translations: [Pneumonia, unspecified organism] 05-31-2019 Episodic Residual codes; unclassified (6 sources) Obstructive sleep apnea syndrome; Translations: [Obstructive sleep apnea (adult) (pediatric)] 03-04-2025 Chronic Residual codes; unclassified (1 source) Obstructive sleep apnea (adult) (pediatric); Translations: [Obstructive sleep apnea (adult) (pediatric)] Onset: 5 Chronic Residual codes; unclassified (1 source) Generalized aches and pains; Translations: [Pain, unspecified] Episodic Residual codes; unclassified (1 source) Influenza-like symptoms; Translations: [Other general symptoms and signs] Episodic Residual codes; unclassified (10 sources) Tobacco use and exposure - finding; Translations: [Tobacco use] 12-24-2022 Episodic Comment on above: vap Residual codes; unclassified (2 sources) Tobacco use; Translations: [Tobacco use disorder] 12-24-2022 Episodic Residual codes; unclassified (6 sources) Noncompliance with medication regimen; Translations: [Noncompliance with medication regimen] 10-14-2023 Episodic Residual codes; unclassified (5 sources) History of eye AND/OR adnexa surgery; Translations: [Other specified postprocedural states] 05-24-2023 Episodic Residual codes; unclassified (3 sources) Family history of cancer of colon; Translations: [Family history of malignant neoplasm of digestive organs] 06-22-2024 Episodic Comment on above: At 54yrs Residual codes; unclassified (2 sources) At risk of disease; Translations: [Other specified personal risk factors, not elsewhere classified] 03-10-2025 Episodic Residual codes; unclassified (1 source) Family history of malignant neoplasm of digestive organs; Translations: [Family history of malignant neoplasm of digestive organs] Onset: 5 Episodic Substance-related disorders (6 sources) Nicotine dependence; Translations: [Nicotine dependence, unspecified, uncomplicated] 10-14-2023 Chronic Suicide and intentional self-inflicted injury (11 sources) Suicidal thoughts; Translations: [Suicidal ideations] 05-31-2019 Episodic Unclassified (1 source) Unknown / UNK(Unknown) Onset: 8 Unclassified (1 source) Alcohol use, unspecified, in remission; Translations: [Alcohol use, unspecified, in remission] Onset: 5 Unclassified (1 source) Acute cough; Translations: [Acute cough] Onset: 4 Unclassified (1 source) Acute right-sided low back pain without sciatica; Translations: [Acute right-sided low back pain without sciatica] Onset: 9 Unclassified (1 source) Cough, unspecified; Translations: [Cough, unspecified] Onset: 5 Unclassified (1 source) Obesity, class 1; Translations: [Obesity, class 1] Onset: 5 Viral infection (12 sources) Viral disease; Translations: [Viral infection, unspecified] 05-29-2019 Episodic Past or Other Problems Problem Classification Problem Date Documented Da te Episodic/Chronic Abdominal hernia (20 sources) Inguinal hernia; Translations: [Unilateral inguinal hernia, without obstruction or gangrene, not specified as recurrent] Onset: 07-09-2016 07-09-2016 Episodic Biliary tract disease (5 sources) Polyp of gallbladder; Translations: [Cholesterolosis of gallbladder] Onset: 09-29-2024 09-29-2024 Episodic Immunizations and screening for infectious disease (2 sources) Viral screening status; Translations: [Encounter for screening for other viral diseases] Onset: 06-12-2024 Episodic Other connective tissue disease (1 source) Pain in left foot; Translations: [Foot pain, left] Onset: 12-11-2024 Episodic Other connective tissue disease (1 source) Pain in right leg; Translations: [Pain in right leg] Onset: 08-17-2024 Episodic Other diseases of kidney and ureters (20 sources) Renal impairment; Translations: [Disorder of kidney and ureter, unspecified] Onset: 02-05-2014 Episodic Other injuries and conditions due [...] enzymes; Translations: [Elevated alkaline phosphatase level] Onset: 08-27-2024 Episodic Other non-traumatic joint disorders (6 sources) Pain in left knee; Translations: [Pain in joint, lower leg] Onset: 08-31-2024 08-11-2024 Episodic Other non-traumatic joint disorders (1 source) Pain in right elbow; Translations: [Elbow pain, right] Onset: 10-07-2024 Episodic Spondylosis; intervertebral disc disorders; other back problems (20 sources) Acute low back pain; Translations: [Acute right-sided low back pain without sciatica] Onset: 03-16-2019 Episodic Results Test Name Value Interpretation Reference Range Facility Urgent Care Visit Reporton 1 Urgent Care Visit Report [facility] [address], [address] [place] [address] OFFICE VISIT Date of Service: 05/05/25 MR#: [id number] Acct: [id number] Name: BETHANY MONTALVO Rep #: [id number] : 1965 Provider: AVEL Tracy Age/Sex: 59/M Location: [facility] Status: Signed Intake Vital Signs 03/29/25 09:05 05/05/25 14:31 Height 5 ft 10 in BP 142/94 H Blood Pressure Location Lt brachial Position Sitting Respiration 17 Pulse 110 H Pulse Source NIBP Temp 98.9 F Temp Source Oral Pulse Oximetry (%) 98 Oxygen Delivery Method room air Intake Visit Reasons: CONCERN FOR FLU/COVID Chief Complaint: MENCHACA, BA, cough, fever, weakness, N/V Allergies No Known Allergies Allergy (Verified 05/05/25 14:31) [facility] Medical History (Updated 03/29/25 @ 09:[address] Madrid Friend, DO) Wears glasses Hyponatremia Rhabdomyolysis Personal history of colon polyps, unspecified Family [...] Suicidal ideation Atherosclerosis of coronary artery of [place] heart without angina pectoris Depression NSTEMI (non-ST [...] apartment current occupational status: employed current occupation: [employer] Smoking Status: Former smoker alcohol intake: current alcohol intake frequency: 3 or more drinks per day substance use type: former substance user caffeine: Yes Type: coffee Number of servings: 2 what type of physical activity do you participate in: none HPI HPI Chief Complaint: MENCHACA, BA, cough, fever, weakness, N/V Details: BETHANY MONTALVO, is a 59 M who presents to the office today for initial evaluation at the [facility] for approximately 4-day history of MENCHACA, BA, cough, fever, weakness, N/V. No c/o chills, sore throat, congestion/runny nose, diarrhea. No complaints of chest pain or shortness of breath or dyspnea on exertion. No [id number] products taken to assist. Several close contacts with similar URI complaints. No other associated symptoms and no alleviating/aggravating factors. ROS Const Constitutional: No other (as above) Exam Const General: cooperative, healthy appearing and no acute distress Orientation: alert, awake [facility] Head: normal to inspection Ears: hearing grossly normal bilaterally, external ears normal, TM's normal bilaterally and EAC's normal Nose: external nose normal, nares normal, septum normal and nasal discharge clear Face and sinus: normal facial exam, sinuses nontender and face symmetric Mouth: oral mucosae normal, lip normal, tongue normal and oropharynx normal Throat: posterior oropharynx normal, tonsils normal, uvula midline and no postnasal drainage Eyes General: appearance normal, both eyes and all related structures Neck Neck: normal visual inspection, full ROM, no lymphadenopathy, no meningeal signs and supple Neck mass: No Thyroid: thyroid normal Lymphatic: no lymphadenopathy noted Chest Chest palpation inspection: normal inspection of the chest Resp Effort Inspection: normal respiratory effort, able to speak in complete sentences and cough Quality of cough: wet (Nonproductive in office today) Auscultation: Bilateral: Clear to Auscultation Cardio Palpation: normal PMI Rate: tachycardic Rhythm: regular rhythm Heart Sounds: S1 normal, S2 normal Pulses: radial pulses present GI Inspection: normal to inspection Palpa (more content not included)... Normal [facility] Colonoscopy Reporton 025 Colonoscopy Report [facility] Medical Records Department [address] [place] [address] Colonoscopy Report MR#: [id number] Acct: [id number] Name: BETHANY MONTALVO Rep #: [id number] : 1965 59 From: Julius Lovell DO PCP: XUAN Armendariz [place] [place] Patient Name: Bethany Montalvo Procedure Date: 03/29/2025 10:08 AM Date of : 1965 Age: 59 Procedure: Colonoscopy Indications: Chronic diarrhea Providers: Julius Lovell DO Referring MD: Keren Kwon Medicines: Monitored Anesthesia Care Patient Profile: This is a 59 year old male. Refer to note in patient chart for documentation of history and physical. Patient has symptoms. Last Colonoscopy: more than 10 years ago. Complications: No immediate complications. Procedure: Pre-Anesthesia Assessment: - Prior to the procedure, a History and Physical was performed, and patient medications and allergies were reviewed. The patient is competent. The risks and benefits of the procedure and the sedation options and risks were discussed with the patient. All questions were answered and informed consent was obtained. Patient identification and proposed procedure were verified by the physician in the pre-procedure area. Mental Status Examination: alert and oriented. Airway Examination: normal oropharyngeal airway and neck mobility. Respiratory Examination: clear to auscultation. CV Examination: normal. Prophylactic Antibiotics: The patient does not require prophylactic antibiotics. Prior Anticoagulants: The patient has taken no anticoagulant or antiplatelet agents except for NSAID medication. ASA Grade Assessment: II - A patient with mild systemic disease. After reviewing the risks and benefits, the patient was deemed in satisfactory condition to undergo the procedure. The anesthesia plan was to use monitored anesthesia care (MAC). Immediately prior to administration of medications, the patient was re-assessed for adequacy to receive sedatives. The heart rate, respiratory rate, oxygen saturations, blood pressure, adequacy of pulmonary ventilation, and response to care were monitored throughout the procedure. The physical status of the patient was re-assessed after the procedure. After I obtained informed consent, the scope was passed under direct vision. Throughout the procedure, the patient's blood pressure, pulse, and oxygen saturations were monitored continuously. The Colonoscope was introduced through the anus and advanced to the terminal ileum. The colonoscopy was performed without difficulty. The patient tolerated the procedure well. The quality of the bowel preparation was good. The terminal ileum, ileocecal valve, appendiceal orifice, and rectum were photographed. Scope In: Scope Withdrawal Time 0 hours 10 minutes 53 seconds Scope Out: 10:23:27 AM Findings: The perianal and digital rectal examinations were normal. Multiple small and large-mouthed diverticula were found in the recto-sigmoid colon and sigmoid colon. A 5 mm polyp was found in the sigmoid colon. The polyp was sessile. The polyp was removed with a hot snare. Resection and retrieval were complete. Verification of patient identification for the specimen was done. Estimated blood loss was minimal. An area of congested mucosa was found in the sigmoid colon, in the descending colon, at the splenic flexure and in the ascending colon. Biopsies were taken with a cold forceps for histology. Verification of patient identification for the specimen was done. Estimated blood loss was minimal. The terminal ileum appeared normal. Biopsies were taken with a cold forceps for histology. Impression: - Diverticulosis in the recto-sigmoid colon and in the sigmoid colon. - One 5 mm polyp in the sigmoid colon, removed with a hot snare. Resected and retrieved. - Congested mucosa in the sigmoid colon, in the descending colon, at the splenic flexure and in the ascending colon. Biopsied. - The examined portion of the ileum was normal. Biopsied. Recommendation: - Discharge patient to home. - Resume previous diet. - Continue present medications. - Await pathology results. - Repeat colonoscopy in 5 years for surveillance. Procedure Code(s): --- Professional --- 74972, Colonoscopy, flexible; with removal of tumor(s), polyp(s), or other lesion(s) by snare technique 39121, 59, Colonoscopy, flexible; with biopsy, single or multiple CPT copyright 2021 [employer]. All rights reserved. The codes documented in this report are preliminary and upon lard renderer review may be revised to meet current compliance requirements. Julius Lovell DO 03/29/2025 10:38:33 AM This report has been signed electronically. Number of Addenda: 0 Note Initiated On: 03/29/2025 10:08 AM 03/29/25 1038 Date (more content not included)... Normal [facility] EGD Reporton 03-29-2025 EGD Report [facility] Medical Records Department [address] [facility] [place] [address] EGD Report MR#: [id number] Acct: [id number] Name: BETHANY MONTALVO Rep #: [id number] : 1965 59 From: Julius Lovell DO PCP: XUAN Armendariz [place] [facility] [place] Patient Name: Bethany Montalvo Procedure Date: 03/29/2025 10:05 AM Date of : 1965 Age: 59 Procedure: Upper GI endoscopy Indications: Epigastric abdominal pain, Functional Dyspepsia Providers: Julius Lovell DO Referring MD: Keren Kwon Medicines: Monitored Anesthesia Care Patient Profile: This is a 59 year old male. Refer to note in patient chart for documentation of history and physical. Patient has symptoms. Complications: No immediate complications. Procedure: Pre-Anesthesia Assessment: - Prior to the procedure, a History and Physical was performed, and patient medications and allergies were reviewed. The patient is competent. The risks and benefits of the procedure and the sedation options and risks were discussed with the patient. All questions were answered and informed consent was obtained. Patient identification and proposed procedure were verified by the physician in the pre-procedure area. Mental Status Examination: alert and oriented. Airway Examination: normal oropharyngeal airway and neck mobility. Respiratory Examination: clear to auscultation. CV Examination: normal. Prophylactic Antibiotics: The patient does not require prophylactic antibiotics. Prior Anticoagulants: The patient has taken no anticoagulant or antiplatelet agents except for NSAID medication. ASA Grade Assessment: II - A patient with mild systemic disease. After reviewing the risks and benefits, the patient was deemed in satisfactory condition to undergo the procedure. The anesthesia plan was to use monitored anesthesia care (MAC). Immediately prior to administration of medications, the patient was re-assessed for adequacy to receive sedatives. The heart rate, respiratory rate, oxygen saturations, blood pressure, adequacy of pulmonary ventilation, and response to care were monitored throughout the procedure. The physical status of the patient was re-assessed after the procedure. After obtaining informed consent, the endoscope was passed under direct vision. Throughout the procedure, the patient's blood pressure, pulse, and oxygen saturations were monitored continuously. The Colonoscope was introduced through the mouth, and advanced to the third part of the duodenum. Small bowel enteroscopy was deemed necessary. The upper GI endoscopy was accomplished without difficulty. The patient tolerated the procedure well. Scope In: Scope Out: 10:08:20 AM Findings: Patchy mild mucosal changes characterized by congestion were found in the gastric body. Biopsies were taken with a cold forceps for histology. Biopsies were taken with a cold forceps for Helicobacter pylori testing. Verification of patient identification for the specimen was done. Estimated blood loss was minimal. Mild portal hypertensive gastropathy was found in the entire examined stomach. Biopsies were taken with a cold forceps for histology. Verification of patient identification for the specimen was done. Estimated blood loss was minimal. Patchy mildly erythematous mucosa without active bleeding and with no stigmata of bleeding was found in the entire duodenum. Biopsies were taken with a cold forceps for histology. Verification of patient identification for the specimen was done. Estimated blood loss was minimal. Impression: - Congested mucosa in the gastric body. Biopsied. - Portal hypertensive gastropathy. Biopsied. - Erythematous duodenopathy. Biopsied. Recommendation: - Discharge patient to home. - Resume previous diet. - Continue present medications. - Await pathology results. Procedure Code(s): --- Professional --- 09761, Small intestinal endoscopy, enteroscopy beyond second portion of duodenum, not including ileum; with biopsy, single or multiple CPT copyright 2021 [employer]. All rights reserved. The codes documented in this report are preliminary and upon lard renderer review may be revised to meet current compliance requirements. Julius Lovell DO 03/29/2025 10:32:48 AM This report has been signed electronically. Number of Addenda: 0 Note Initiated On: 03/29/2025 10:05 AM 03/29/25 1033 Date Julius Lovell DO [facility] Signature: Date (if indicated) CC: PARTS PULLER-Ang Kwon; Julius Lovell DO Date Dictated: 03/29/25 1005 Date Transcribed: Briar Shop Supervisor: FRANKLIN Signed Normal [facility] Immunohistochemical Stainson 03-29-2025 Immunohistochemical Stains ----- Patient Age/Sex Location Account Attending Physician ----- BETHANY MONTALVO/M EN [id number] Julius Lovell DO ----- Specimen: [id number] Received: 03/29/25 Status: MOISES Haley Num: [id number] Spec Type: COLON BX Subm Dr: Julius Lovell DO HEADMARICRUZ OPERATION: Colonoscopy, EGD, biopsy PRE-OP DIAGNOSIS: Gastroesophageal reflux disease, alcohol abuse, gallbladder polyp, steatosis, liver, heartburn, thrombocytopenia TISSUE SUBMITTED: A- Gastric body biopsy, B- Terminal ileum biopsy, C- Random colon biopsy, D- Sigmoid polyp biopsy ----- MICROSCOPIC DIAGNOSIS A. Gastric body, biopsy: - Oxyntic mucosa with chronic gastritis. - IHC negative for H. pylori organisms. B. Terminal ileum, biopsy: - Normal villous architecture with mucosal lymphoid aggregates, favor reactive. C. Colon, random, biopsy: - No specific pathologic change. D. Sigmoid colon, polyp, biopsy: - Tubular adenoma. MICROSCOPIC DESCRIPTION Slides are reviewed. Slides are reviewed. All matched controls reacted appropriately. These tests were developed and their performance characteristics determined by [facility]. They may not have been cleared or approved by the U.S. Food and Drug Administration. The FDA has determined that such clearance or approval is not necessary. The above immunohistochemical markers and/or special stains have been reviewed by the Pathologist. GROSS DESCRIPTION A. Received in fixative is one container labeled with the patient's name and designated "Gastric body biopsy." The specimen consists of two irregular fragments of light garcia soft tissue that measure 0.3 and 0.5 cm. The specimen is totally submitted in one cassette. B. Received in fixative is one container labeled with the patient's name and designated "Terminal ileum biopsy." The specimen consists of one irregular fragment of light garcia soft tissue that measures 0.4 cm. The specimen is totally submitted in one cassette. C. Received in fixative is one container labeled with the patient's name and designated "Random colon biopsy." The specimen consists of multiple irregular fragments of light garcia soft tissue that in aggregate measure 1.7 x 0.8 x 0.2 cm in aggregate. The specimen is totally submitted in one cassette. D. Received in fixative is one container labeled with the patient's name and designated ----- Patient Age/Sex Location Account Attending Physician ----- BETHANY MONTALVO/M EN [id number] Julius Lovell DO ----- "Sigmoid polyp biopsy." The specimen consists of two irregular fragments of light garcia soft tissue, each measuring 0.3 cm. The specimen is totally submitted in one cassette. [place] 03/29/2025 [facility]:[id number] ----- Patient Age/Sex Location Account Attending Physician ----- BETHANY MONTALVO 59/M EN [id number] Julius Lovell DO ----- Signed (signature on file) Dr. Lanny Childs MD 04/08/25 1320 ----- [facility] Comment on above: Performed By: #### P JOLYNN ####[facility] [address] [place], [place], [id number] MR/OP.PROVATon 03-29-2025 MR[facility]OP.[facility] Medical Records Department [address] [place] [address] Provation Physician Letter MR#: [id number] Acct: [id number] Name: BETHANY MONTALVO Rep #: [id number] : 1965 59 From: Julius Lovell DO PCP: XUAN Armendariz [place] [facility] [place] 03/29/2025 Keren Kwon Re : Colonoscopy procedure for Bethany Montalvo Collins Kwon This procedure was performed on Saturday, March 29, 2025. My impressions and recommendations are as follows: Impressions : - Diverticulosis in the recto-sigmoid colon and in the sigmoid colon. - One 5 mm polyp in the sigmoid colon, removed with a hot snare. Resected and retrieved. - Congested mucosa in the sigmoid colon, in the descending colon, at the splenic flexure and in the ascending colon. Biopsied. - The examined portion of the ileum was normal. Biopsied. Recommendations : - Discharge patient to home. - Resume previous diet. - Continue present medications. - Await pathology results. - Repeat colonoscopy in 5 years for surveillance. My findings are described in the full procedure note, which is enclosed. If I can be of further assistance, please feel free to contact me at . Sincerely, Julius Lovell DO 03/29/2025 10:38:33 AM This report has been signed electronically. 03/29/25 1038 Date Julius Lovell DO Cosigner Signature: Date (if indicated) CC: PARTS PULLER-C Keren Kwon; Julius Lovell DO Date Dictated: 03/29/25 1008 Date Transcribed: Briar Shop Supervisor: FRANKLIN Signed [facility] MR/OP.[facility] Medical Records Department [address] [place] [address] [facility] [place] [facility] Letter MR#: [id number] Acct: [id number] Name: BETHANY MONTALVO Rep #: [id number] : 1965 59 From: Julius Lovell DO PCP: XUAN Armendariz Status:[place] [facility] [place] 03/29/2025 Keren Kwon Re : Upper GI endoscopy procedure for Bethany Montalvo Collins Kwon This procedure was performed on Saturday, March 29, 2025. My impressions and recommendations are as follows: Impressions : - Congested mucosa in the gastric body. Biopsied. - Portal hypertensive gastropathy. Biopsied. - Erythematous duodenopathy. Biopsied. Recommendations : - Discharge patient to home. - Resume previous diet. - Continue present medications. - Await pathology results. My findings are described in the full procedure note, which is enclosed. If I can be of further assistance, please feel free to contact me at . Sincerely, Julius Lovell DO 03/29/2025 10:32:48 AM This report has been signed electronically. 03/29/25 1033 Date Julius Lovell DO Cosigner Signature: Date (if indicated) CC: PARTS PULLERGeraldo Kwon; Julius Lovell DO Date Dictated: 03/29/25 1005 Date Transcribed: Briar Shop Supervisor: FRANKLIN Signed [facility] MR/POSTOP.[facility] 03-29-2025 MR/POSTOP.[facility] Medical Records Department [address] [place] [address] Anesthesia Postop Eval I 03/29/25 1034 MR#: [id number] Acct: [id number] Name: BETHANY MONTALVO Rep #: [id number] : 1965 59 From: Luis A Lizarraga PCP: XUAN Armendariz Status:REG [facility]C Y Race: C Location: [facility]18-1 ADDENDUM by AMAYA Lizarraga on 03/29/25 at 1036 Addendum signed early by mistake, actual time 1034 03/29/25 1036 Date Luis A Lizarraga cc: * Signed Anesthesia: Postop Eval I Current Vital Signs Temperature: 97 F Pulse Rate: 89 Blood Pressure: 116/44 Respiratory Rate: 18 Pulse Ox: 95 Oxygen Delivery Method: Room Air Assessment Airway patent: Yes Spontaneous unlabored respirations: Yes Mental status: Asleep nausea: No Vomiting: No Anesthesia Complication: No Fluid Hydration Crystalloid volume administer (ml): 800 Total IV fluid infused: 800 Progress Note Anesthesia document: Postop Eval 1 completed: Yes 03/29/25956 Date Luis A Sinclair Signature: Date CC: Signed Normal [facility] MR/PXMIPQFW2ax 03-29-2025 MR/POSTOPAN2 [facility] Medical Records Department [address] [place] [address] Anesthesia Postop Eval II 03/29/25 1103 MR#: [id number] Acct: [id number] Name: BETHANY MONTALVO Rep #: [id number] : 1965 59 From: Silvio Rios MD PCP: XUAN Armendariz [place] [facility] [place] Race: C Location: [place] [address] Anesthesia Postop Eval I Sum Postop Eval Completion status Anesthesia document: Postop Eval 1 completed: Yes Anesthesia Postop Eval I Summary Anesthesia Postop Eval I Summary: Anesthesia Postop Eval I: Assessment Summary Airway patent Yes 03/29/25 09:57 [email or web address] Spontaneous unlabored Yes 03/29/25 09:57 [email or web address] respirations Mental status Asleep 03/29/25 09:57 [email or web address] nausea No 03/29/25 09:57 [email or web address] Vomiting No 03/29/25 09:57 [email or web address] Anesthesia Postop Eval I: Fluid Summary Crystalloid volume administer 800 03/29/25 09:57 [email or web address] (ml) Colloids volume administered ( ml) Blood Product volume administered (ml) Total IV fluid infused 800 03/29/25 09:57 [email or web address] Anesthesia Postop Eval I: Summary Notes Anesthesia Complication No 03/29/25 09:57 [email or web address] Anesthesia Complication Comment: Post-operative progress note Anesthesia: Postop Eval II Evaluation Mental status: Awake and Calm Pain Level: 1 nausea: No Vomiting: No Complications Anesthesia Complication: No 03/29/25 1103 Date Silvio Rios MD Cosignmaricruz Signature: Date CC: Signed Normal [facility] MR/PAT.ELINon 03-25-2025 MR/PAT.[facility] Medical Records Department [address] [place] [address] PAT - Anesthesia 03/25/25 1701 MR#: [id number] Acct: [id number] Name: BETHANY MONTALVO Rep #: [id number] : 1965 59 From: Krishna Olivas MD PCP: XUAN Armendariz Status:PRE [facility] [place] Y Race: C Location: EN Pre-Assessment Diagnosis/Proposed Procedure Planned Operative Procedure(s): Colonoscopy,EGD Anesthesia History Anesthesia History - stock patcher: Anesthesia History - stock patcher Hx Hospitalization Yes: 03-15 [facility] 03/25/25 16:43 RHABDOMYGOLYSIS Any Problems With Anesthesia No 03/25/25 16:43 Cholinesterase deficiency No 03/25/25 16:43 You/Your Family Experience No 03/25/25 16:43 fever (hyperthermia) with Relationship Recent Exposure to Contagious No 01/12/19 12:42 Disease Does patient have nerve No 03/25/25 16:43 stimulator Patient instructed to have device shut off --Does patient have Pacemaker or ICD? When Was Last Pacemaker Check QUESTION #4 FULL TEXT: You/Your Family Experience fever (hyperthermia) with Anesthesia Last Oral Intake Last Oral intake: Last Oral Intake NPO since Meds taken in AM with sips of water? Meds patient instructed to take am of surgery PONV PONV - stock patcher: PONV - stock patcher Female No 03/25/25 16:43 HX of Motion Sickness No 03/25/25 16:43 HX of N/V After Surgery No 03/25/25 16:43 Non-Smoker Yes 03/25/25 16:43 Duration of Surgery greater No 03/25/25 16:43 than 60 minutes Number of Risk Factors 1 03/25/25 16:43 PONV Score Low Risk 03/25/25 16:43 Height Weight Height Weight: Anesthesia: Height Weight Height 5 ft 10 in 09/29/24 14:11 Respiratory Assessment Respiratory Assessment - stock patcher: Respiratory Tract Infection Hx - stock patcher Hx Respiratory Tract Infection No 03/25/25 16:43 STOP Sleep Apnea STOP Sleep Apnea - stock patcher: STOP Sleep Apnea - stock patcher Hx Hypertension Yes: ON MEDS 03/25/25 16:43 Hx Sleep Apnea No 03/25/25 16:43 CPAP No 05/13/23 17:41 BIPAP No 05/13/23 17:41 Do you snore loudly (louder Yes 03/25/25 16:43 than talking or can be heard Do you often feel tired/ Yes 03/25/25 16:43 fatigued/ sleepy during daytime? Has anyone observed you stop Yes 03/25/25 16:43 breathing during sleep? STOP Results Positive 03/25/25 16:43 QUESTION #5 FULL TEXT : Do you snore loudly (louder than talking or can be heard through closed doors)? Tobacco Use History Tobacco Use History - stock patcher: Tobacco Use History - stock patcher Tobacco Use Smoking Status Former smoker 03/25/25 16:43 Hx Tobacco Use No 03/25/25 16:43 Years Smoking Packs Smoked per Day Smoking Cessation Date was No - quit smoking greater 03/25/25 16:43 within the last 15 years than 15 years ago Hx Smoking Cessation Date 07/22/18 03/25/25 16:43 Hx Smoking Cessation No 03/25/25 16:43 Counseling Hematologic Medial History Hematologic Hx - stock patcher: Hematologic Medical Hx - wax blender Hx of Blood Transfusion No 03/25/25 16:43 Hx of Transfusion in last 3 No 03/25/25 16:43 Months Date of Last Transfusion (if within last 3 months) Ever experience any problems No 03/25/25 16:43 with transfusion(s)? Specify any problems Hx of Preganancy in last 3 N/A 03/25/25 16:43 Months Nurse Filling Out Transfusion CASTILLO 03/25/25 16:43 Questions: Date: 03/25/25 03/25/25 16:43 Time: 16:45 03/25/25 16:43 Patient unable to answer at this time (ie. confused, unrespo /Reproduction History /Reproductive History - stock patcher: /Reproductive Hx- stock patcher Hx Now No 03/25/25 16:43 Gestational Age (in weeks): EDC: Hx Hx Para Hx Section SAB No 03/25/25 16:43 [facility] Medical History (Updated 03/25/25 @ 16:43 by Melyssa Lepe) Wears glasses Hyponatremia Rhabdomyolysis Personal history of colon polyps, unspecified Family [...] Lung nodule Tobacco use WILSON (dyspnea on exert (more content not included)... Normal [facility] Absolute lymphocyte countOrd ered By: Little Gutierrez on 03-10-2025 Lymphocytes Auto (Unsp spec) [#/Vol] 2.14 10*3/uL 0.83-4.51 [facility] Absolute neutrophil countOrd ered By: Little Gutierrez on 03-10-2025 Neutrophils (Bld) [#/Vol] 4.1 10*3/uL 2.0-7.7 [facility] Anion gap in Serum or Plasma Ordered By: Little Gutierrez on 03-10-2025 Anion gap [Moles/Vol] 14 mmol/L 5-15 [facility] Automated lymphocyte count a s percentage of total leukocytesOrdered By: Lizbetus Brenad on 03-10-2025 Lymphocytes/100 WBC Auto (Unsp spec) 30.5 % 19-41 [facility] BUN/creatinine ratioOrdered By: Remus Ungur on 03-10-2025 Urea nitrogen/Creatinine [Mass ratio] 8.9 mg/mg Low 10- [facility] Basic Metabolic Profile (BMP )on 03-10-2025 BUN/CRE 8.9 RATIO Low 05-10 [facility] Comment on above: Performed By: #### L 501.3620, L100.0100 #### [facility] [address] [place], [address] Calcium [Mass/Vol] 9.8 mg/dL Normal 7.6-11.0 [facility] Comment on above: Performed By: #### L 501.3620, L100.0100 #### [facility] [address] [place], [address] Chloride [Moles/Vol] 100 mmol/L Normal 98-108 [facility] Comment on above: Performed By: #### L 501.3620, L100.0100 #### [facility] [address] [place], [address] CO2 [Moles/Vol] 21.9 mmol/L Normal 21.0-32.0 [facility] Comment on above: Performed By: #### L 501.3620, L100.0100 #### [facility] [address] [place], [address] Creatinine [Mass/Vol] 1.78 mg/dL High 0.70-1.20 [facility] Comment on above: Performed By: #### L 501.3620, L100.0100 #### [facility] [address] [place], [address] ECRCL 52.45 ml/min Normal 50-250 [facility] Comment on above: Performed By: #### L 501.3620, L100.0100 #### [facility] [address] [place], [address] GAP 14 Normal 5-15 [facility] Comment on above: Performed By: #### L 501.3620, L100.0100 #### [facility] [address] [place], [address] GFR/1.73 sq M.predicted among non-blacks MDRD (S/P/Bld) [Vol rate/Area] 44 mL/min/{1.73_m2} Low >60 [facility] Comment on above: Result Comment: mL/m in/1.73m2 CKD-EPI Creatinine Equation (2020) Performed By: #### L 501.3620, L100.0100 #### [facility] [address] [place], [address] Glucose [Mass/Vol] 99 mg/dL Normal 70-99 [facility] Comment on above: Performed By: #### L 501.3620, L100.0100 #### [facility] [address] [place], [address] Potassium [Moles/Vol] 4.9 mmol/L Normal 3.3-5.1 [facility] Comment on above: Result Comment: Hemo lysis present, Results??could be affected. ?? Performed By: #### L 501.3620, L100.0100 #### [facility] [address] [place], [address] Sodium [Moles/Vol] 136 mmol/L Normal 133-145 [facility] Comment on above: Performed By: #### L 501.3620, L100.0100 #### [facility] [address] [place], [address] Urea nitrogen [Mass/Vol] 16 mg/dL Normal 4-19 [facility] Comment on above: Performed By: #### L 501.3620, L100.0100 #### [facility] [address] [place], [address] Basophil percentageOrdered B y: Little Gutierrez on 03-10-2024 Basophils/100 WBC (Bld) 0.4 % 0-1 [facility] CBC W/Diff, Automatedon 02-20-2024 Absolute Lymph 2.14 X10 3/uL Normal 0.83-4.51 [facility] Comment on above: Performed By: #### L 501.3620, L100.0100 #### [facility] [address] [place], [address] Absolute Neut 4.1 X10 3/uL Normal 2.0-7.7 [facility] Comment on above: Performed By: #### L 501.3620, L100.0100 #### [facility] [address] [place], [address] Basophils/100 WBC (Bld) 0.4 % Normal 0-1 [facility] Comment on above: Performed By: #### L 501.3620, L100.0100 #### [facility] [address] [place], [address] Eosinophils/100 WBC (Bld) 1.4 % Normal 0-5 [facility] Comment on above: Performed By: #### L 501.3620, L100.0100 #### [facility] [address] [place], [address] Erythrocyte distribution width (RBC) [Ratio] 12.2 % Normal 11.6-14.6 [facility] Comment on above: Performed By: #### L 501.3620, L100.0100 #### [facility] [address] [place], [address] Hematocrit (Bld) [Volume fraction] 41.7 % Normal 40-54 [facility] Comment on above: Performed By: #### L 501.3620, L100.0100 #### [facility] [address] [place], [address] Hemoglobin (Bld) [Mass/Vol] 14.9 g/dL Normal 13.0-16.5 [facility] Comment on above: Performed By: #### L 501.3620, L100.0100 #### [facility] [address] [place], [address] IG% 0.300 Normal 0.0-0.9 [facility] Comment on above: Result Comment: IG% - Immature Granulocytes (promyelocytes, myelocytes and metamyelocytes) > 1% indicates that a LEFT SHIFT is Present. Performed By: #### L 501.3620, L100.0100 #### [facility] [address] [place], [address] Lymphocytes/100 WBC (Bld) 30.5 % Normal 19-41 [facility] Comment on above: Performed By: #### L 501.3620, L100.0100 #### [facility] [address] [place], [address] MCH (RBC) [Entitic mass] 32.2 pg High 27.0-32.0 [facility] Comment on above: Performed By: #### L 501.3620, L100.0100 #### [facility] [address] [place], [address] MCHC (RBC) [Mass/Vol] 35.7 g/dL Normal 32-36 [facility] Comment on above: Performed By: #### L 501.3620, L100.0100 #### [facility] [address] [place], [address] MCV (RBC) [Entitic vol] 90.1 fL Normal 80-94 [facility] Comment on above: Performed By: #### L 501.3620, L100.0100 #### [facility] [address] [place], [address] Monocytes/100 WBC (Bld) 9.0 % Normal 0-10 [facility] Comment on above: Performed By: #### L 501.3620, L100.0100 #### [facility] [address] [place], [address] Neutrophils/100 WBC (Bld) 58.4 % Normal 47-70 [facility] Comment on above: Performed By: #### L 501.3620, L100.0100 #### [facility] [address] [place], [address] Nucleated RBC (Bld) [#/Vol] 0 10*3/uL Normal 0-5 [facility] Comment on above: Performed By: #### L 501.3620, L100.0100 #### [facility] [address] [place], [address] Platelet mean volume (Bld) [Entitic vol] 10.5 fL Normal 6.2-12.0 [facility] Comment on above: Performed By: #### L 501.3620, L100.0100 #### [facility] [address] [place], [address] Platelets (Bld) [#/Vol] 156 10*3/uL Normal 150-450 [facility] Comment on above: Performed By: #### L 501.3620, L100.0100 #### [facility] [address] [place], [address] RBC (Bld) [#/Vol] 4.63 10*6/uL Normal 4.6-6.2 [facility] Comment on above: Performed By: #### L 501.3620, L100.0100 #### [facility] [address] [place], [address] RDW SD 39.8 fl Normal 35.1-43.9 [facility] Comment on above: Performed By: #### L 501.3620, L100.0100 #### [facility] [address] [place], [address] WBC (Bld) [#/Vol] 7.0 10*3/uL Normal 4.4-11.0 [facility] Comment on above: Performed By: #### L 501.3620, L100.0100 #### [facility] [address] [place], [address] CNP[facility] BETHANY MONTALVO ([id number]) 1965 Date Time Provider Department 03/10/25 IVONNE ABBOTT [facility] During your visit today, we recorded the following information about you: Ivonne Abbott MD 03/10/2025 7:33 AM Signed Called by lab at 1230 AM with K 6.4 and this was drawn at 216 PM. Attempted to reach pt but no VM set to leave message. This morning reviewed chart and Directed message Keren Kwon CNP who ordered test to get a stat level. Ivonne Abbott MD Allergies As of Date: 03/10/2025 Noted Allergy Reaction SUDAFED (PSEUDOEPHEDRINE) 06/26/2016 14 - Other: See Comments Comments: Prostate infection Date Reviewed: 03/09/2025 Reviewed by: Donna Richey LPN - Fully Assessed Prescriptions as of 03/10/2025 - cyclobenzaprine (FLEXERIL) 10 mg tablet Take [...] daily before breakfast. 1/2 hr before meal. Problem List As Of Date 03/10/2025 Noted Resolved Moderate hypertension [I10] 08/24/2006 Anxiety [...] without esophagitis [K21.9] 11/05/2022 Encounter Status:Closed by IVONNE ABBOTT on 03/10/25 [facility] Carbon dioxide, total [Moles /volume] in Central venous bloodOrdered By: Little Gutierrez on 03-10-2025 CO2 [Moles/Vol] 21.9 mmol/L 21.0-32.0 [facility] Chloride assayOrdered By: Ruthy Gutierrez on 03-10-2025 Chloride [Moles/Vol] 100 mmol/L 98-108 [facility] Emergency Department Summary on 03-10-2025 Emergency Department Summary [facility] Medical Records Department [address] [place] [address] Emergency Department Summary 03/10/25 MR#: [id number] Acct: [id number] Name: BETHANY MONTALVO Rep #: [id number] : 1965 59 From: Little Gutierrez DO PCP: Keren Kwon NP-C Status:DEP ER Location: ED HPI History of Present Illness Chief Complaint: Abn Labs Detail of Chief Complaint: Abnormal labs Informant: patient Narrative Narrative: Patient presents to the emergency department with concern for abnormal labs and elevated potassium. Patient states that he had follow-up blood work done yesterday after his admission to the hospital from the 13th through the 15 of this month. Patient was admitted for LUZ MARIA and rhabdomyolysis. Patient states that he is feeling better but at times still little lightheaded. He is been eating and drinking normally. Denies fever. PFSH PFS Medical History Personal history of colon polyps, [...] Suicidal ideation Atherosclerosis of coronary artery of [place] heart without angina pectoris Depression NSTEMI (non-ST elevated myocardial infarction) Obesity (BMI 30.0-34.9) Hyperlipidemia Hypertension Alcohol abuse Chest pain Home Medications ???Medication ???Instructions ???Recorded ???Last Taken ???Type omeprazole 20 mg capsule,delayed 20 mg PO DAILY heart burn 06/17/14 01/12/19 10:30 History release 20 MG nitroglycerin 0.4 mg sublingual 0.4 mg sublingual Q5M PRN Chest Unknown Rx tablet Pain #25 tabs cyclobenzaprine 10 mg tablet 10 mg PO DAILY PRN Pain 10/14/23 U nknown History folic acid 1 mg tablet 1 mg PO DAILY 10/14/23 Unknown His tory magnesium oxide 400 mg (241.3 mg 400 mg PO DAILY 10/14/23 Unknown H istory magnesium) tablet thiamine HCl (vitamin B1) 100 mg 100 mg PO DAILY 10/14/23 Unknown H istory tablet buspirone 7.5 mg tablet 7.5 mg PO TID 09/29/24 Unknown His tory carvedilol 25 mg tablet 25 mg PO BID 09/29/24 Unknown Hist ory lisinopril 10 mg tablet 10 mg PO QDAY 09/29/24 Unknown His tory Held on 03/05/25. Instructions: Hold for week follow-up with [facility] PCP before resumption. trazodone 50 mg tablet 100 mg PO QHS 09/29/24 Unknown His tory aspirin 81 mg tablet,delayed 81 mg PO DAILY heart #90 tabs 03/15 Unknown Rx release atorvastatin 40 mg tablet 40 mg PO QHS #90 tabs 10/27/24 Unk nown Rx Held on 03/05/25. Instructions: Hold for 7 days cyanocobalamin (vitamin B-12) 100 100 mcg PO DAILY 01/28/25 Unknown History mcg tablet (Vitamin B-12) multivitamin (Daily Multi-Vitamin 1 tab PO DAILY 01/28/25 Unknown H istory tablet) Allergy/AdvReac Type Severity Reaction Status Date / Time No Known Allergies Allergy Verified 03/10/25 17:31 Family History Mother CAD (coronary artery disease) Father CAD (coronary artery disease) Colon cancer, Onset Age: 53 At 53yrs Brother CAD (coronary artery disease) Myocardial infarction Sister CAD (coronary artery disease) Surgical History Hx of colonoscopy History of coronary artery stent placement Stented coronary artery History of tonsillectomy Hx of eye surgery Social History household members: significant other housing: apartment current occupational status: employed current occupation: [employer] Smoking Status: Former smoker alcohol intake: current alcohol intake frequency: 3 or more drinks per day substance use type: former substance user caffeine: Yes Type: coffee Number of servings: 2 what type of physical activity do you participate in: none ROS ROS ED Review of Systems ROS Unobtainable: other Constitutional Constitutional ED: Reports lethargy; Denies chills, fever(s), sweats or weight loss Eyes Eyes: Denies blurry vision, change in vision or diplopia ENT ENT ED: Denies rhinorrhea or sore throat (more content not included)... Normal [facility] Eosinophil percentageOrdered By: Little Gutierrez on 03-10-2025 Eosinophils/100 WBC (Bld) 1.4 % 0-5 [facility] Erythrocyte distribution wid th ratioOrdered By: Little Gutierrez on 03-10-2025 Erythrocyte distribution width (RBC) [Ratio] 12.2 % 11.6-14.6 [facility] Erythrocyte distribution wid th standard deviationOrdered By: Little Gutierrez on 03-10-2025 Erythrocyte distribution width (RBC) [Ratio] 39.8 fl 35.1-43.9 [facility] Glomerular filtration rate ( GFR) estimation/1.73 sq m using serum, plasma, or whole bOrdered By: Little Gutierrez on 03-10-2025 GFR/1.73 sq M.predicted among non-blacks MDRD (S/P/Bld) [Vol rate/Area] 44 mL/min/{1.73_m2} Low >60 [facility] Comment on above: mL/min/1.73m2 CKD-EP I Creatinine Equation (2020) Hematocrit Auto (Bld) [Volum e fraction]Ordered By: Little Gutierrez on 03-10-2025 Hematocrit (Bld) [Volume fraction] 41.7 % 40-54 [facility] Hemoglobin measurementOrdere d By: Little Gutierrez on 03-10-2025 Hemoglobin (Bld) [Mass/Vol] 14.9 g/dL 13.0-16.5 [facility] Immature granulocytes/100 WB C Auto (Bld)Ordered By: Little Gutierrez on 03-10-2025 Immature granulocytes/100 WBC (Bld) 0.300 % 0.0-0.9 [facility] Comment on above: IG% - Immature Granu locytes (promyelocytes, myelocytes and metamyelocytes) > 1% indicates that a LEFT SHIFT is Present. MCV (mean corpuscular volume ) determinationOrdered By: Little Brenda on 03-10-2025 MCV (RBC) [Entitic vol] 90.1 fL 80-94 [facility] Mean corpuscular hemoglobin (MCH) determinationOrdered By: Little Benitoleeroy on 03-10-2025 MCH (RBC) [Entitic mass] 32.2 pg High 27.0-32.0 [facility] Mean corpuscular hemoglobin concentration (MCHC) determinationOrdered By: Little Benitoleeroy on 03-10-2025 MCHC (RBC) [Mass/Vol] 35.7 g/dL 32-36 [facility] Mean platelet volume determi nationOrdered By: Little Benitoleeroy on 03-10-2025 Platelet mean volume (Bld) [Entitic vol] 10.5 fL 6.2-12.0 [facility] Monocyte percentageOrdered B y: Lizbetus Benitoleeroy on 03-10-2025 Monocytes/100 WBC (Bld) 9.0 % 0-10 [facility] Neutrophil percentageOrdered By: Lizbetus Benitoleeroy on 03-10-2025 Neutrophils/100 WBC (Bld) 58.4 % 47-70 [facility] Nucleated red blood cell per centageOrdered By: Little Benitoleeroy on 03-10-2025 Nucleated RBC/100 WBC (Bld) [Ratio] 0 % 0-5 [facility] Platelet countOrdered By: Ruthy Gutierrez on 03-10-2025 Platelets (Bld) [#/Vol] 156 10*3/uL 150-450 [facility] Potassium measurement (mass/ volume)Ordered By: Little Benitoleeroy on 03-10-2025 Potassium (Unsp spec) [Mass/Vol] 4.9 mmol/L 3.3-5.1 [facility] Comment on above: Hemolysis present, R esults could be affected. RBC Auto (Bld) [#/Vol]Ordere d By: Lizbet Brenda on 03-10-2025 RBC (Bld) [#/Vol] 4.63 10*6/uL 4.6-6.2 [facility] Serum creatinine measurement (mass/volume)Ordered By: Little Gutierrez on 03-10-2025 Creatinine [Mass/Vol] 1.78 mg/dL High 0.70-1.20 [facility] Serum glucose measurement (m ass/volume)Ordered By: Remus Gutierrez on 03-10-2025 Glucose [Mass/Vol] 99 mg/dL 70-99 [facility] Serum or plasma calcium raina urement (mass/volume)Ordered By: Remus Gutierrez on 03-10-2025 Calcium [Mass/Vol] 9.8 mg/dL 7.6-11.0 [facility] Serum or plasma urea nitroge n measurement (mass/volume)Ordered By: Little Gutierrez on 03-10-2025 Urea nitrogen [Mass/Vol] 16 mg/dL 4-19 [facility] Sodium levelOrdered By: Akiko Gutierrez on 03-10-2025 Sodium [Moles/Vol] 136 mmol/L 133-145 [facility] White blood cell (WBC) count Ordered By: Little Gutierrez on 03-10-2025 WBC (Bld) [#/Vol] 7.0 10*3/uL 4.4-11.0 [facility] CBC W Auto Differential pane l (Bld)on 03-09-2025 Basophils (Bld) [#/Vol] 0.03 10*3/uL Normal <0.11 [facility] Comment on above: Order Comment: Speci men Type: BLOOD SPECIMENOrdering Facility: [facility] Address: [address] [place] [address] Performed By: #### 5 7021-8 ####[facility]CLIA [id number] [place] [address] [place] Basophils/100 WBC (Bld) 0.4 % Normal [facility] Comment on above: Order Comment: Speci men Type: BLOOD SPECIMENOrdering Facility: [facility] Address: [address] [place] [address] Performed By: #### 5 7021-8 ####[facility]CLIA [id number] [place] Differential cell count method Nom (Bld) Auto Normal [facility] Comment on above: Order Comment: Speci men Type: BLOOD SPECIMENOrdering Facility: [facility] Address: [address] [place] [address] Performed By: #### 5 7021-8 ####[facility] LABCLIA [id number] [place] [address] [place] Eosinophils (Bld) [#/Vol] 0.08 10*3/uL Normal <0.46 [facility] Comment on above: Order Comment: Speci men Type: BLOOD SPECIMENOrdering Facility: [facility] Address: [address] [place] [address] Performed By: #### 5 7021-8 ####[facility] LABIA [id number] [place] [address] [place] Eosinophils/100 WBC (Bld) 0.9 % Normal [facility] Comment on above: Order Comment: Speci men Type: BLOOD SPECIMENOrdering Facility: [facility] Address: [address] [place] [address] Performed By: #### 5 7021-8 ####[facility]CLIA [id number] [place] [address] [place] Erythrocyte distribution width (RBC) [Ratio] 12.2 % Normal 11.5-15.0 [facility] Comment on above: Order Comment: Speci men Type: BLOOD SPECIMENOrdering Facility: [facility] Address: [address] [place] [address] Performed By: #### 5 7021-8 ####[facility]CLIA [id number] [place] [address] [place] Hematocrit (Bld) [Volume fraction] 48.2 % Normal 39.0-51.0 [facility] Comment on above: Order Comment: Speci men Type: BLOOD SPECIMENOrdering Facility: [facility] Address: [address] [place] [address] Performed By: #### 5 7021-8 ####[facility] LABCLIA [id number] [place] [address] [place] Hemoglobin (Bld) [Mass/Vol] 17.0 g/dL Normal 13.0-17.0 [facility] Comment on above: Order Comment: Speci men Type: BLOOD SPECIMENOrdering Facility: [facility] Address: [address] [place] [address] Performed By: #### 5 7021-8 ####[facility] LABCLIA [id number] [place] [address] [place] Immature granulocytes (Bld) [#/Vol] 0.03 10*3/uL Normal <0.10 [facility] Comment on above: Order Comment: Speci men Type: BLOOD SPECIMENOrdering Facility: [facility] Address: [address] [place] [address] Performed By: #### 5 7021-8 ####[facility] LABIA [id number] [place] [address] [place] Immature granulocytes/100 WBC (Bld) 0.4 % Normal [facility] Comment on above: Order Comment: Speci men Type: BLOOD SPECIMENOrdering Facility: [facility] Address: [address] [place] [address] Performed By: #### 5 7021-8 ####[facility] LABCLIA [id number] [place] [address] [place] Lymphocytes (Bld) [#/Vol] 2.02 10*3/uL Normal 1.00-4.00 [facility] Comment on above: Order Comment: Speci men Type: BLOOD SPECIMENOrdering Facility: [facility] Address: [address] [place] [address] Performed By: #### 5 7021-8 ####[facility] LABCLIA [id number] [place] [address] [place] Lymphocytes/100 WBC (Bld) 23.6 % Normal [facility] Comment on above: Order Comment: Speci men Type: BLOOD SPECIMENOrdering Facility: [facility] Address: [address] [place] [address] Performed By: #### 5 7021-8 ####[facility] LABCLIA [id number] [place] [address] [place] MCH (RBC) [Entitic mass] 32.0 pg Normal 26.0-34.0 [facility] Comment on above: Order Comment: Speci men Type: BLOOD SPECIMENOrdering Facility: [facility] Address: [address] [place] [address] Performed By: #### 5 7021-8 ####[facility] LABIA [id number] [place] [address] [place] MCHC (RBC) [Mass/Vol] 35.3 g/dL Normal 30.5-36.0 [facility] Comment on above: Order Comment: Speci men Type: BLOOD SPECIMENOrdering Facility: [facility] Address: [address] [place] [address] Performed By: #### 5 7021-8 ####[facility] LABIA [id number] [place] [address] [place] MCV (RBC) [Entitic vol] 90.8 fL Normal 80.0-100.0 [facility] Comment on above: Order Comment: Speci men Type: BLOOD SPECIMENOrdering Facility: [facility] Address: [address] [place] [address] Performed By: #### 5 7021-8 ####[facility] LABCLIA [id number] [place] [address] [place] Monocytes (Bld) [#/Vol] 0.75 10*3/uL Normal <0.87 [facility] Comment on above: Order Comment: Speci men Type: BLOOD SPECIMENOrdering Facility: [facility] Address: [address] [place] [address] Performed By: #### 5 7021-8 ####[facility] LABCLIA [id number] [place] [id number] [place] Monocytes/100 WBC (Bld) 8.8 % Normal [facility] Comment on above: Order Comment: Speci men Type: BLOOD SPECIMENOrdering Facility: [facility] Address: [address] [place] [address] Performed By: #### 5 7021-8 ####[facility] LABCLIA [id number] [place] [address] [place] Neutrophils (Bld) [#/Vol] 5.66 10*3/uL Normal 1.45-7.50 [facility] Comment on above: Order Comment: Speci men Type: BLOOD SPECIMENOrdering Facility: [facility] Address: [address] [place] [address] Performed By: #### 5 7021-8 ####[facility] LABCLIA [id number] [place] [address] [place] Neutrophils/100 WBC (Bld) 65.9 % Normal [facility] Comment on above: Order Comment: Speci men Type: BLOOD SPECIMENOrdering Facility: [facility] Address: [address] [place] [address] Performed By: #### 5 7021-8 ####[facility] LABCLIA [id number] [address] [address] [place] Nucleated RBC (Bld) [#/Vol] 10*3/uL Normal <0.01 [facility] Comment on above: Order Comment: Speci men Type: BLOOD SPECIMENOrdering Facility: [facility] Address: [address] [place] [address] Performed By: #### 5 7021-8 ####[facility] LABCLIA [id number] [place] [address] [place] Nucleated RBC/100 WBC (Bld) [Ratio] 0.0 /100 WBC Normal [facility] Comment on above: Order Comment: Speci men Type: BLOOD SPECIMENOrdering Facility: [facility] Address: [address] [place] [address] Performed By: #### 5 7021-8 ####[facility] LABCLIA [id number] [place] [address] [place] Platelet mean volume (Bld) [Entitic vol] 11.2 fL Normal 9.0-12.7 [facility] Comment on above: Order Comment: Speci men Type: BLOOD SPECIMENOrdering Facility: [facility] Address: [address] [place] [address] Performed By: #### 5 7021-8 ####[facility] LABCLIA [id number] [place] [address] [place] Platelets (Bld) [#/Vol] 199 10*3/uL Normal 150-400 [facility] Comment on above: Order Comment: Speci men Type: BLOOD SPECIMENOrdering Facility: [facility] Address: [address] [place] [address] Performed By: #### 5 7021-8 ####[facility] LABIA [id number] [place] [address] [place] RBC (Bld) [#/Vol] 5.31 10*6/uL Normal 4.20-6.00 [facility] Comment on above: Order Comment: Speci men Type: BLOOD SPECIMENOrdering Facility: [facility] Address: [address] [place] [address] Performed By: #### 5 7021-8 ####[facility] LABCLIA [id number] [place] [id number] [place] WBC (Bld) [#/Vol] 8.57 10*3/uL Normal 3.70-11.00 [facility] Comment on above: Order Comment: Speci men Type: BLOOD SPECIMENOrdering Facility: [facility] Address: [address] [place] [address] Performed By: #### 5 7021-8 ####[facility] LABCLIA [id number] [address] [place] CK SerPl-cCncon 03-09-2025 CK [Catalytic activity/Vol] 106 U/L Normal 51-298 [facility] Comment on above: Order Comment: Speci men Type: BLOOD SPECIMENOrdering Facility: [facility] Address: [address] [place] [address] Performed By: #### 1 0886-0, 65839-9, 2157-6, 31535-1 ####[facility] LABCLIA [id number] [address] [facility] CNOVon 03-09-2025 CNOV Office Visit (CONPWS ) BETHANY MONTALVO ([id number]) 1965 M Date Time Provider Department 03/09/25 1:20 PM KEREN KWON FAMAnaWS During your visit today, we recorded the following information about you: Pulse Respiration Blood pressure 77/minute 16/minute 120/84 Keren Kwon APRN.[employer] 03/09/2025 1:59 PM Signed Get labwork. Push fluids. Continue to hold the lisinopril and atorvastatin until I get the results of your labwork. Keren Kwon APRN.CNP 03/09/2025 4:49 PM Signed This is a 59 year old male who presents today with: Bethany Montalvo is a 59-year-old male presenting for follow-up after hospitalization for dehydration and rhabdomyolysis, with additional complaints of myalgia, dizziness, and lethargy. He presented to the ER on 03/03/25 and was discharged on 03/05/25. Patient presents today for emergency room follow-up. He presented to [facility] on 03/03/2025 with complaints of dizziness, headache, chest pain that started the previous day at work. 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 Reports the warehouse was hot with no air movement, we have also been having hot weather in the area. He was found to have severe LUZ MARIA in the setting of CKD. His serum creatinine was 5.32 with a BUN of 42. His GFR was 12. He was admitted to PCU. He had 4-1/2 to 5 L of IV fluid. His lisinopril was placed on hold. Upon discharge, his creatinine had continued to improved to 1.76. His potassium was 5.3. His CK eliza to 825. His repeat improved to 196. He was advised to hold his atorvastatin. There was a concern about acute alcohol withdrawal with reactive leukocytosis of 15.2. He has been having nonbloody diarrhea which exacerbated his volume depletion. He had negative stool studies. Patient reports that he has been sober since December, however was having anxiety prior to presenting to the emergency room and stopped to get a beer. They reported on 03/05 that diarrhea had resolved, stool for C. difficile, enteric pathogen panel, and lactoferrin were negative. He also had a CT of the brain which showed no acute intracranial abnormality. He also had a chest x-ray which was negative for any acute findings. He was discharged on 03/05/25. 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 - Discharged on the . - Attempting to stay hydrated with water and Powerade. - Experiencing runny bowel movements; took an OTC antidiarrheal last night with some improvement. - Holding lisinopril and atorvastatin. Although reports took today. Myalgia: - Generalized myalgia, with specific pain in the right arm after a fall. - Describes arm pain as "really bad" but does not believe it is bruised. - Reports stiffness in legs and numbness in the arm. - Taking potassium supplements and eating bananas. Dizziness and Lethargy: - Persistent dizziness and lethargy since starting the [employer] job. - Describes feeling like he needs to sleep all the time. - Reports tingling in fingers and lower back pain. - Denies current alcohol use; has been sober since January 13. PAST MEDICAL HISTORY: PAST MEDICAL HISTORY Diagnosis [...] [Pseudoephedrine] MEDICATIONS Current Outpatient Medications Medication Sig cyclobenzaprine (FLEXERIL) 10 mg tablet Take 1 tablet by mouth once daily as needed. lisinopril (ZESTRIL) 10 mg tablet Take 1 tablet by mouth once daily. carvedilol (COREG) 25 mg tablet Take 1 tablet by mouth two times a day. busPIRone (BUSPAR) 7.5 mg tablet Take 1 tablet by mouth three times a day. magnesium oxide 400 mg magnesium cap Take 1 capsule by mouth three times a day. folic acid 1 mg tablet Take 1 tablet by mouth once daily. thiamine (VITAMIN B1) 100 mg tablet Take 1 (more content not included)... Normal [facility] Comprehensive metabolic 2000 panelon 03-09-2025 Albumin [Mass/Vol] 5.1 g/dL High 3.9-4.9 [facility] Comment on above: Order Comment: Speci men Type: BLOOD SPECIMENOrdering Facility: [facility] Address: [address] [place] [address] Performed By: #### 1 0886-0, 31566-6, 6, ####[facility] LABCLIA [id number] [address] [address] [place] ALP [Catalytic activity/Vol] 132 U/L High 38-113 [facility] Comment on above: Order Comment: Speci men Type: BLOOD SPECIMENOrdering Facility: [facility] Address: [address] [place], [place] [address] Performed By: #### 1 0886-0, 54448-7, 2156-12, ####[facility] LABCLIA [id number] [place] [id number] [place] ALT [Catalytic activity/Vol] 32 U/L Normal 10-54 [facility] Comment on above: Order Comment: Speci men Type: BLOOD SPECIMENOrdering Facility: [facility] Address: [address] [place], [place] [address] Performed By: #### 1 0886-0, 04828-7, 2156-12, ####[facility] LABIA [id number] [place] [id number] [place] Anion gap [Moles/Vol] 12 mmol/L Normal 8-15 [facility] Comment on above: Order Comment: Speci men Type: BLOOD SPECIMENOrdering Facility: [facility] Address: [address] [place], [place] [address] Performed By: #### 1 0886-0, 54208-8, 2156-12, ####[facility] LABIA [id number] [address] [address] [place] AST [Catalytic activity/Vol] 30 U/L Normal 14-40 [facility] Comment on above: Order Comment: Speci men Type: BLOOD SPECIMENOrdering Facility: [facility] Address: [address] [place], [place] [address] Performed By: #### 1 0886-0, 67086-3, 2156-12, ####[facility] LABCLIA [id number] [address] [address] [place] Bilirubin [Mass/Vol] 1.3 mg/dL Normal 0.2-1.3 [facility] Comment on above: Order Comment: Speci men Type: BLOOD SPECIMENOrdering Facility: [facility] Address: [address] [place] [address] Performed By: #### 1 0886-0, 45914-0, 2156-12, ####[facility] LABCLIA [id number] [place] [id number] [place] Calcium [Mass/Vol] 10.5 mg/dL High 8.5-10.2 [facility] Comment on above: Order Comment: Speci men Type: BLOOD SPECIMENOrdering Facility: [facility] Address: [address] [place] [address] Performed By: #### 1 0886-0, 78000-7, 2156-12, ####[facility] LABIA [id number] [place] [id number] [place] Chloride [Moles/Vol] 97 mmol/L Low 98-107 [facility] Comment on above: Order Comment: Speci men Type: BLOOD SPECIMENOrdering Facility: [facility] Address: [address] [place], [place] [address] Performed By: #### 1 0886-0, 84312-3, 2156-12, ####[facility] LABCLIA [id number] [place] [id number] [place] CO2 [Moles/Vol] 22 mmol/L Normal 22-30 [facility] Comment on above: Order Comment: Speci men Type: BLOOD SPECIMENOrdering Facility: [facility] Address: [address] [place] [address] Performed By: #### 1 0886-0, 18164-9, 2156-12, ####[facility] LABIA [id number] [address] [address] [place] Creatinine [Mass/Vol] 1.75 mg/dL High 0.73-1.22 [facility] Comment on above: Order Comment: Speci men Type: BLOOD SPECIMENOrdering Facility: [facility] Address: [address] [place] [address] Performed By: #### 1 0886-0, 00980-9, 2156-12, ####[facility] [id number] [address] [address] [place] eGFRcr SerPlBld CKD-EPI 2020 45 mL/min/1.73m??? Low >=60 [facility] Comment on above: Order Comment: Speci men Type: BLOOD SPECIMENOrdering Facility: [facility] Address: [address] [place] [address] Result Comment: Misty mated Glomerular Filtration Rate [...] reflect actual GFR. Performed By: #### 1 0886-0, 65742-3, 2156-12, ####[facility] LABIA [id number] [address] [address] [place] Glucose [Mass/Vol] 81 mg/dL Normal 74-99 [facility] Comment on above: Order Comment: Speci men Type: BLOOD SPECIMENOrdering Facility: [facility] Address: [address] [place] [address] Result Comment: The [place] Diabetes Association (ADA) provides guidance for cutoff [...] Standards of Medical Care in Diabetes 2016, [place] [employer]. Diabetes Care. 2016.39(Suppl 1). Performed By: #### 1 0886-0, 72947-8, 2156-12, ####[facility] LABIA [id number] [place] [id number] [place] Potassium [Moles/Vol] 6.4 mmol/L Critically high 3.7-5.1 [facility] Comment on above: Order Comment: Speci men Type: BLOOD SPECIMENOrdering Facility: [facility] Address: [address] [place] [address] Performed By: #### 1 0886-0, 03998-2, 2156-12, ####[facility] [id number] [place] [id number] [place] Protein [Mass/Vol] 8.3 g/dL High 6.3-8.0 [facility] Comment on above: Order Comment: Chirag jeffrey Type: BLOOD SPECIMENOrdering Facility: [facility] Address: [address] [place] [address] Performed By: #### 1 0886-0, 54426-0, 2156-12, ####[facility] [id number] [place] [id number] [place] Sodium [Moles/Vol] 131 mmol/L Low 136-144 [facility] Comment on above: Order Comment: Kayleei men Type: BLOOD SPECIMENOrdering Facility: [facility] Address: [address] [place] [address] Performed By: #### 1 0886-0, 21487-6, 2156-12, ####[facility] LABCLIA [id number] [address] [address] [place] Urea nitrogen [Mass/Vol] 19 mg/dL Normal 9-24 [facility] Comment on above: Order Comment: Speci men Type: BLOOD SPECIMENOrdering Facility: [facility] Address: [address] [place] [address] Performed By: #### 1 0886-0, 34124-2, 2156-12, ####[facility] LABCLIA [id number] [place] [address] [place] Free PSA [Mass/Vol]on 2024 Free PSA/Total PSA [Mass fraction] 14 % Normal [facility] Comment on above: Order Comment: Speci men Type: BLOOD SPECIMENOrdering Facility: [facility] Address: [address] [place] [address] Result Comment: Tota l and free PSA [...] 9.1% 12.2% 15.8% Performed By: #### 1 0886-0, 14683-0, 2156-12, ####[facility] LABCLIA [id number] [address] [place] [address] [place] Prostate specific Ag [Mass/Vol] 3.36 ng/mL High <2.60 [facility] Comment on above: Order Comment: Speci men Type: BLOOD SPECIMENOrdering Facility: [facility] Address: [address] [place] [address] Result Comment: Tota l PSA test methodology [...] Lopez M.D., Lindsay Aguilar, M.P.H., Marcelle Garcia ScNegro. Effect of Verification Bias on Screening for Prostate Cancer by Measurement of Prostatic Specific Antigen. N Engl J Med 2003,349:335-42. Performed By: #### 1 0886-0, 91960-5, 2156-12, ####[facility] LABIA [id number] [place] [id number] [place] Magnesium SerPl-mCncon 03-09 Magnesium [Mass/Vol] 1.7 mg/dL Normal 1.7-2.3 [facility] Comment on above: Order Comment: Speci men Type: BLOOD SPECIMENOrdering Facility: [facility] Address: [address] [place] [address] Performed By: #### 1 0886-0, 26217-1, 2156-12, ####[facility] LABIA [id number] [place] [id number] [place] Absolute lymphocyte countOrd ered By: Jatin Mcgraw on 03-05-2025 Lymphocytes Auto (Unsp spec) [#/Vol] 1.65 10*3/uL 0.83-4.51 [facility] Absolute neutrophil countOrd ered By: Jatin Mcgraw on 03-05-2025 Neutrophils (Bld) [#/Vol] 2.2 10*3/uL 2.0-7.7 [facility] Anion gap in Serum or Plasma Ordered By: Jatin Mcgraw on 03-05-2025 Anion gap [Moles/Vol] 12 mmol/L 12-03 [facility] Automated lymphocyte count a s percentage of total leukocytesOrdered By: Jatin Mcgraw on 03-05-2025 Lymphocytes/100 WBC Auto (Unsp spec) 38.6 % [facility] BUN/creatinine ratioOrdered By: Jatin Mcgraw on 03-05-2025 Urea nitrogen/Creatinine [Mass ratio] 14.3 mg/mg 05-10 [facility] Basic Metabolic Profile (BMP )on 03-05-2025 BUN/CRE 14.3 RATIO Normal 05-10 [facility] Comment on above: Performed By: #### L 500.2500 ####[facility] [address] [place], [address] Calcium [Mass/Vol] 8.5 mg/dL Normal 7.6-11.0 [facility] Comment on above: Performed By: #### L 500.2500 ####[facility] [address] [place], [address] Chloride [Moles/Vol] 108 mmol/L Normal 98-108 [facility] Comment on above: Performed By: #### L 500.2500 ####[facility] [address] [place], [address] CO2 [Moles/Vol] 18.8 mmol/L Low 21.0-32.0 [facility] Comment on above: Performed By: #### L 500.2500 ####[facility] [address] [place], [address] Creatinine [Mass/Vol] 1.76 mg/dL High 0.70-1.20 [facility] Comment on above: Performed By: #### L 500.2500 ####[facility] [address] [place], [address] ECRCL 53.99 ml/min Normal 50-250 [facility] Comment on above: Performed By: #### L 500.2500 ####[facility] [address] [place], [address] GAP 12 Normal 5-15 [facility] Comment on above: Performed By: #### L 500.2500 ####[facility] [address] [place], [address] GFR/1.73 sq M.predicted among non-blacks MDRD (S/P/Bld) [Vol rate/Area] 44 mL/min/{1.73_m2} Low >60 [facility] Comment on above: Result Comment: mL/m in/1.73m2 CKD-EPI Creatinine Equation (2020) Performed By: #### L 500.2500 ####[facility] [address] [place], [address] Glucose [Mass/Vol] 90 mg/dL Normal 70-99 [facility] Comment on above: Performed By: #### L 500.2500 ####[facility] [address] [place], [address] Potassium [Moles/Vol] 5.3 mmol/L High 3.3-5.1 [facility] Comment on above: Performed By: #### L 500.2500 ####[facility] [address] [place], [address] Sodium [Moles/Vol] 139 mmol/L Normal 133-145 [facility] Comment on above: Performed By: #### L 500.2500 ####[facility] [address] [place], [address] Urea nitrogen [Mass/Vol] 25 mg/dL High 4-19 [facility] Comment on above: Performed By: #### L 500.2500 ####[facility] [address] [place], [address] Basophil percentageOrdered B y: Jatin Mcgraw on 03-05-2025 Basophils/100 WBC (Bld) 0.2 % 0-1 [facility] CBC W/Diff, Automatedon 02-19 PLT EST SLT DEC Normal ADEQ [facility] Comment on above: Performed By: #### L 501.3620, L100.0100 #### [facility] [address] [place], [address] CPK Total, Creatine Kinaseon 03-05-2025 CPK TOTAL 196 U/L High 24-195 [facility] Comment on above: Performed By: #### L 501.3620, L100.0100 #### [facility] [address] [place], [address] Carbon dioxide, total [Moles /volume] in Central venous bloodOrdered By: Jatin Mcgraw on 03-05-2025 CO2 [Moles/Vol] 18.8 mmol/L Low 21.0-32.0 [facility] Chloride assayOrdered By: Pratik Mcgraw on 03-05-2025 Chloride [Moles/Vol] 108 mmol/L 98-108 [facility] Discharge Instructionon 02-19 Discharge Instruction [facility] Medical Records Department [address] [place] [address] Instructions for Home/Discharge Instructions 03/05/25 0948 MR#: [id number] Acct: [id number] Name: SELVINBETHANY СЕРГЕЙ Rep #: [id number] : 1965 59 From: Jatin Mcgraw MD PCP: XUAN Armendariz Status:ADM IN Discharge Instructions DC O2, CPAP, BIPAP needs Home O2 Discharge instructions: No Follow Up Care Test Results: Test results from this visit will be discussed in further detail at your follow-up appointment, if applicable. Discharge Plan Admission Admit Date/Time: 03/03/25 21:48 Primary Reason for Your Visit: LUZ MARIA, mild rhabdomyolysis Attending Provider: Jatin Mcgraw Primary Care Provider: Keren Kwon [employer] Consulting Providers: Michela Murillo Discharge Orders/Prescriptions Prescriptions: Continued nitroglycerin 0.4 mg tablet, sublingual 0.4 mg SUBLINGUAL Q5M PRN (Reason: Chest Pain) Qty: 25 3RF trazodone 50 mg tablet 100 mg PO QHS magnesium oxide 400 mg (241.3 mg magnesium) tablet 400 mg PO DAILY thiamine HCl (vitamin B1) 100 mg tablet 100 mg PO DAILY folic acid 1 mg tablet 1 mg PO DAILY buspirone 7.5 mg tablet 7.5 mg PO TID carvedilol 25 mg tablet 25 mg PO BID Rx Instructions: must administer with a meal/food omeprazole 20 MG capsule 20 mg PO DAILY Patient Comments: REFLUX cyclobenzaprine 10 mg tablet 10 mg PO DAILY PRN (Reason: Pain) multivitamin [Daily Multi-Vitamin] Tablet 1 tab PO DAILY cyanocobalamin (vitamin B-12) [Vitamin B-12] 100 mcg tablet 100 mcg PO DAILY aspirin 81 mg tablet,delayed release (DR/EC) 81 mg PO DAILY Qty: 90 3RF Held lisinopril 10 mg tablet 10 mg PO QDAY Hold Instructions: Hold for week follow-up with BMP PCP before resumption. atorvastatin 40 mg tablet 40 mg PO QHS Qty: 90 3RF Hold Instructions: Hold for 7 days Referrals / Follow Up: Keren Kwon NP, [employer] [facility] [Primary Care Provider] - Disposition Disposition (needs filled in before D/C Order can be placed): Home, Self Care 03/05/25 1711 Jatin Mcgraw MD CC: [employer] [facility] Keren Kwon; Dr. Michela Murillo DO Signed Normal [facility] Eosinophil percentageOrdered By: Jatin Mcgraw on 03-05-2025 Eosinophils/100 WBC (Bld) 1.9 % 0-5 [facility] Erythrocyte distribution wid th ratioOrdered By: Jatin Mcgraw on 03-05-2025 Erythrocyte distribution width (RBC) [Ratio] 12.4 % 11.6-14.6 [facility] Erythrocyte distribution wid th standard deviationOrdered By: Jatin Mcgraw on 03-05-2025 Erythrocyte distribution width (RBC) [Ratio] 41.8 fl 35.1-43.9 [facility] Glomerular filtration rate ( GFR) estimation/1.73 sq m using serum, plasma, or whole bOrdered By: Jatin Mcgraw on 03-05-2025 GFR/1.73 sq M.predicted among non-blacks MDRD (S/P/Bld) [Vol rate/Area] 44 mL/min/{1.73_m2} Low >60 [facility] Comment on above: mL/min/1.73m2 CKD-EP I Creatinine Equation (2020) Hematocrit Auto (Bld) [Volum e fraction]Ordered By: Jatin Mcgraw on 03-05-2025 Hematocrit (Bld) [Volume fraction] 35.2 % Low 40-54 [facility] Hemoglobin measurementOrdere d By: Jatin Mcgraw on 03-05-2025 Hemoglobin (Bld) [Mass/Vol] 11.9 g/dL Low 13.0-16.5 [facility] Immature granulocytes/100 WB C Auto (Bld)Ordered By: Jatin Mcgraw on 03-05-2025 Immature granulocytes/100 WBC (Bld) 0.000 % 0.0-0.9 [facility] Comment on above: IG% - Immature Granu locytes (promyelocytes, myelocytes and metamyelocytes) > 1% indicates that a LEFT SHIFT is Present. MCV (mean corpuscular volume ) determinationOrdered By: Jatin Mcgraw on 03-05-2025 MCV (RBC) [Entitic vol] 92.4 fL 80-94 [facility] Mean corpuscular hemoglobin (MCH) determinationOrdered By: Jatin Mcgraw on 03-05-2025 MCH (RBC) [Entitic mass] 31.2 pg 27.0-32.0 [facility] Mean corpuscular hemoglobin concentration (MCHC) determinationOrdered By: Jatin Mcgraw on 03-05-2025 MCHC (RBC) [Mass/Vol] 33.8 g/dL 32-36 [facility] Mean platelet volume determi nationOrdered By: Jatin Mcgraw on 03-05-2025 Platelet mean volume (Bld) [Entitic vol] 11.3 fL 6.2-12.0 [facility] Monocyte percentageOrdered B y: Jatin Mcgraw on 03-05-2025 Monocytes/100 WBC (Bld) 8.9 % 0-10 [facility] Neutrophil percentageOrdered By: Jatin Mcgraw on 03-05-2025 Neutrophils/100 WBC (Bld) 50.4 % 47-70 [facility] Nucleated red blood cell per centageOrdered By: Jatin Mcgraw on 03-05-2025 Nucleated RBC/100 WBC (Bld) [Ratio] 0 % 0-5 [facility] Phosphoruson 03-05-2025 Phosphate [Mass/Vol] 2.5 mg/dL Low 2.7-4.5 [facility] Comment on above: Performed By: #### L 501.3620, L100.0100 #### [facility] [address] [place], [address] Platelet countOrdered By: Pratik Mcgraw on 03-05-2025 Platelets (Bld) [#/Vol] 94 10*3/uL Low 150-450 [facility] Platelet estimateOrdered By: Jatin Mcgraw on 03-05-2025 Platelets LM Ql (Bld) SLT DEC ADEQ [facility] Potassium measurement (mass/ volume)Ordered By: Jatin Mcgraw on 03-05-2025 Potassium (Unsp spec) [Mass/Vol] 5.3 mmol/L High 3.3-5.1 [facility] RBC Auto (Bld) [#/Vol]Ordere d By: Jatin Mcgraw on 03-05-2025 RBC (Bld) [#/Vol] 3.81 10*6/uL Low 4.6-6.2 [facility] Serum creatinine measurement (mass/volume)Ordered By: Jatin Mcgraw on 03-05-2025 Creatinine [Mass/Vol] 1.76 mg/dL High 0.70-1.20 [facility] Serum glucose measurement (m ass/volume)Ordered By: Jatin Mcgraw on 03-05-2025 Glucose [Mass/Vol] 90 mg/dL 70-99 [facility] Serum or plasma calcium raina urement (mass/volume)Ordered By: Jatin Mcgraw on 03-05-2025 Calcium [Mass/Vol] 8.5 mg/dL 7.6-11.0 [facility] Serum or plasma creatine kin ase activityOrdered By: Jatin Mcgraw on 03-05-2025 CK [Catalytic activity/Vol] 196 U/L High 24-195 [facility] Serum or plasma urea nitroge n measurement (mass/volume)Ordered By: Jatin Mcgraw on 03-05-2025 Urea nitrogen [Mass/Vol] 25 mg/dL High 4-19 [facility] Sodium levelOrdered By: Ruben Mcgraw on 03-05-2025 Sodium [Moles/Vol] 139 mmol/L 133-145 [facility] White blood cell (WBC) count Ordered By: Jatin Mcgraw on 03-05-2025 WBC (Bld) [#/Vol] 4.3 10*3/uL Low 4.4-11.0 [facility] Bilirubin, totalOrdered By: Michela Noel on 03-04-2025 Bilirubin [Mass/Vol] 1.04 mg/dL 0.00-1.30 [facility] CBC W/Diff, Automatedon 02-19 Absolute Lymph 1.96 X10 3/uL Normal 0.83-4.51 [facility] Comment on above: Performed By: #### L 501.3620, L100.0100 #### [facility] [address] [place], [address] Absolute Neut 4.3 X10 3/uL Normal 2.0-7.7 [facility] Comment on above: Performed By: #### L 501.3620, L100.0100 #### [facility] [address] [place], [address] Basophils/100 WBC (Bld) 0.1 % Normal 0-1 [facility] Comment on above: Performed By: #### L 501.3620, L100.0100 #### [facility] [address] [place], [address] Eosinophils/100 WBC (Bld) 1.4 % Normal 0-5 [facility] Comment on above: Performed By: #### L 501.3620, L100.0100 #### [facility] [address] [place], [address] Erythrocyte distribution width (RBC) [Ratio] 12.0 % Normal 11.6-14.6 [facility] Comment on above: Performed By: #### L 501.3620, L100.0100 #### [facility] [address] [place], [address] Hematocrit (Bld) [Volume fraction] 34.5 % Low 40-54 [facility] Comment on above: Performed By: #### L 501.3620, L100.0100 #### [facility] [address] [place], [address] Hemoglobin (Bld) [Mass/Vol] 12.0 g/dL Low 13.0-16.5 [facility] Comment on above: Performed By: #### L 501.3620, L100.0100 #### [facility] [address] [place], [address] IG% 0.300 Normal 0.0-0.9 [facility] Comment on above: Result Comment: IG% - Immature Granulocytes (promyelocytes, myelocytes and metamyelocytes) > 1% indicates that a LEFT SHIFT is Present. Performed By: #### L 501.3620, L100.0100 #### [facility] [address] [place], [address] Lymphocytes/100 WBC (Bld) 28.2 % Normal 19-41 [facility] Comment on above: Performed By: #### L 501.3620, L100.0100 #### [facility] [address] [place], [address] MCH (RBC) [Entitic mass] 31.5 pg Normal 27.0-32.0 [facility] Comment on above: Performed By: #### L 501.3620, L100.0100 #### [facility] [address] [place], [address] MCHC (RBC) [Mass/Vol] 34.8 g/dL Normal 32-36 [facility] Comment on above: Performed By: #### L 501.3620, L100.0100 #### [facility] [address] [place], [address] MCV (RBC) [Entitic vol] 90.6 fL Normal 80-94 [facility] Comment on above: Performed By: #### L 501.3620, L100.0100 #### [facility] [address] [place], [address] Monocytes/100 WBC (Bld) 7.6 % Normal 0-10 [facility] Comment on above: Performed By: #### L 501.3620, L100.0100 #### [facility] [address] [place], [address] Neutrophils/100 WBC (Bld) 62.4 % Normal 47-70 [facility] Comment on above: Performed By: #### L 501.3620, L100.0100 #### [facility] [address] [place], [address] Nucleated RBC (Bld) [#/Vol] 0 10*3/uL Normal 0-5 [facility] Comment on above: Performed By: #### L 501.3620, L100.0100 #### [facility] [address] [place], [address] Platelet mean volume (Bld) [Entitic vol] 10.8 fL Normal 6.2-12.0 [facility] Comment on above: Performed By: #### L 501.3620, L100.0100 #### [facility] [address] [place], [address] Platelets (Bld) [#/Vol] 104 10*3/uL Low 150-450 [facility] Comment on above: Performed By: #### L 501.3620, L100.0100 #### [facility] [address] [place], [address] RBC (Bld) [#/Vol] 3.81 10*6/uL Low 4.6-6.2 [facility] Comment on above: Performed By: #### L 501.3620, L100.0100 #### [facility] [address] [place], [address] RDW SD 39.6 fl Normal 35.1-43.9 [facility] Comment on above: Performed By: #### L 501.3620, L100.0100 #### [facility] [address] [place], [address] WBC (Bld) [#/Vol] 7.0 10*3/uL Normal 4.4-11.0 [facility] Comment on above: Performed By: #### L 501.3620, L100.0100 #### [facility] [address] [place], [address] CDIFF (PCR)on 03-04-2025 CDIFF Is the patient recei ving laxatives? N New/unexplained onset of 3 or more stools in past 24 hrs? Y Pending 027 027 NAP1-B1 Presumptive Negative *for epidemiolologic???use C. Diff PCR Negative- No toxigenic C. Diff Detected Normal [facility] Comment on above: Performed By: #### M 100.6796, M100.0605, M100.637 ####[facility] [address] [place], [address] CPK Total, Creatine Kinaseon 03-04-2025 CPK TOTAL 484 U/L High 24-195 [facility] Comment on above: Performed By: #### L 501.3620, L100.0100 #### [facility] [address] [place], [address] Clostridium difficile detect ion by polymerase chain reactionOrdered By: Michela Noel on 03-04-2025 C. difficile DNA ABBY+probe Ql (Unsp spec) [facility] Comprehensive Metabolic Prof ilon 03-04-2025 Albumin [Mass/Vol] 3.8 g/dL Normal 3.5-5.0 [facility] Comment on above: Performed By: #### L 501.3620, L100.0100 #### [facility] [address] [place], [address] Albumin/Globulin [Mass ratio] 1.9 {ratio} Normal 0.9-2.4 [facility] Comment on above: Performed By: #### L 501.3620, L100.0100 #### [facility] [address] [place], [address] ALK PHOS 85 U/L Normal 40-129 [facility] Comment on above: Performed By: #### L 501.3620, L100.0100 #### [facility] [address] [place], [address] ALT [Catalytic activity/Vol] 19 U/L Normal <=46 [facility] Comment on above: Performed By: #### L 501.3620, L100.0100 #### [facility] [address] [place], [address] AST [Catalytic activity/Vol] 32 U/L Normal <=37 [facility] Comment on above: Performed By: #### L 501.3620, L100.0100 #### [facility] [address] [place], [address] Bilirubin [Mass/Vol] 1.04 mg/dL Normal 0.00-1.30 [facility] Comment on above: Performed By: #### L 501.3620, L100.0100 #### [facility] [address] [place], [address] BUN/CRE 9.7 RATIO Low 10-20 [facility] Comment on above: Performed By: #### L 501.3620, L100.0100 #### [facility] [address] [place], [address] Calcium [Mass/Vol] 7.8 mg/dL Normal 7.6-11.0 [facility] Comment on above: Performed By: #### L 501.3620, L100.0100 #### [facility] [address] [place], [address] Chloride [Moles/Vol] 102 mmol/L Normal 98-108 [facility] Comment on above: Performed By: #### L 501.3620, L100.0100 #### [facility] [address] [place], [address] CO2 [Moles/Vol] 19.1 mmol/L Low 21.0-32.0 [facility] Comment on above: Performed By: #### L 501.3620, L100.0100 #### [facility] [address] [place], [address] Creatinine [Mass/Vol] 3.67 mg/dL High 0.70-1.20 [facility] Comment on above: Performed By: #### L 501.3620, L100.0100 #### [facility] [address] [place], [address] ECRCL 25.97 ml/min Low 50-250 [facility] Comment on above: Performed By: #### L 501.3620, L100.0100 #### [facility] [address] [place], [address] GAP 12 Normal 5-15 [facility] Comment on above: Performed By: #### L 501.3620, L100.0100 #### [facility] [address] [place], [address] GFR/1.73 sq M.predicted among non-blacks MDRD (S/P/Bld) [Vol rate/Area] 18 mL/min/{1.73_m2} Low >60 [facility] Comment on above: Result Comment: mL/m in/1.73m2 CKD-EPI Creatinine Equation (2020) Performed By: #### L 501.3620, L100.0100 #### [facility] [address] [place], [address] Globulin (S) [Mass/Vol] 2.0 g/dL Low 2.2-4.2 [facility] Comment on above: Performed By: #### L 501.3620, L100.0100 #### [facility] [address] [place], [address] Glucose [Mass/Vol] 102 mg/dL High 70-99 [facility] Comment on above: Performed By: #### L 501.3620, L100.0100 #### [facility] [address] [place], [address] Potassium [Moles/Vol] 4.7 mmol/L Normal 3.3-5.1 [facility] Comment on above: Performed By: #### L 501.3620, L100.0100 #### [facility] [address] [place], [address] Sodium [Moles/Vol] 134 mmol/L Normal 133-145 [facility] Comment on above: Performed By: #### L 501.3620, L100.0100 #### [facility] [address] [place], [address] T PROT 5.8 g/dL Low 5.9-8.4 [facility] Comment on above: Performed By: #### L 501.3620, L100.0100 #### [facility] [address] [place], [address] Urea nitrogen [Mass/Vol] 36 mg/dL High 4-19 [facility] Comment on above: Performed By: #### L 501.3620, L100.0100 #### [facility] [address] [place], [address] ENTERIC PATHOGEN PANEL STOOL on 03-04-2025 EP PANEL Is the patient recei ving laxatives? N New/unexplained onset of 3 or more stools in past 24 hrs? Y Normal Reference Range = Not Detected Nucleic acid amplification test method Not detected for Campylobacter group, Salmonella species, Shigella species, Vibrio Group, Yersinia enterocolitica, EHEC (Shiga Toxin 1, Shiga Toxin 2), Norovirus Gl/Gll, and Rotavirus A. Other common stool pathogens are not detected on this panel include: Aeromonas/Plesiomonas or parasites. Order testing for these organisms separately if suspected. This is an amplified DNA test which makes it both specific and sensitive. CAMPYLOBACTER Not Detected Norovirus Not Detected Rotavirus Not Detected Salmonella Not Detected Shiga Toxin Not Detected Shigella sp. Not Detected VIBRIO Not Detected Yersinia Not Detected Normal [facility] Comment on above: Performed By: #### M 100.6796, M100.0605, M100.637 ####[facility] [address] [place], [address] International normalized rat io (INR) calculationOrdered By: Jatin Mcgraw on 03-04-2025 INR Coag (Bld) [Relative time] 1.0 {INR} [facility] - Chemistry and C hemistry - challengeOrdered By: Michela Noel on 03-04-2025 AST [Catalytic activity/Vol] 32 U/L <38 [facility] Phosphoruson 03-04-2025 Phosphate [Mass/Vol] 3.3 mg/dL Normal 2.7-4.5 [facility] Comment on above: Performed By: #### L 501.3620, L100.0100 #### [facility] [address] [place], [address] Prothrombin Time w/INRon INR Coag (PPP) [Relative time] 1.0 {INR} Normal [facility] Comment on above: Performed By: #### L 501.3620, L100.0100 #### [facility] [address] [place], [place], [address] PT Coag (PPP) [Time] 13.5 s Normal 11.7-14.9 [facility] Comment on above: Performed By: #### L 501.3620, L100.0100 #### [facility] [address] [place], [place], [address] Prothrombin timeOrdered By: Jatin Mcgraw on 03-04-2025 PT Coag (PPP) [Time] 13.5 s 11.7-14.9 [facility] Serum globulin measurementOr dered By: Michela Noel on 03-04-2025 Globulin (S) [Mass/Vol] 2.0 g/dL Low 2.2-4.2 [facility] Serum or plasma alanine omer otransferase (ALT) measurementOrdered By: Michela Noel on 03-04-2025 ALT [Catalytic activity/Vol] 19 U/L <47 [facility] Serum or plasma albumin raina urement (mass/volume)Ordered By: Michela Noel on 03-04-2025 Albumin [Mass/Vol] 3.8 g/dL 3.5-5.0 [facility] Serum or plasma albumin/glob ulin mass ratioOrdered By: Michela Noel on 03-04-2025 Albumin/Globulin [Mass ratio] 1.9 {ratio} 0.9-2.4 [facility] Serum or plasma alkaline amy sphatase measurementOrdered By: Michela Noel on 03-04-2025 ALP [Catalytic activity/Vol] 85 U/L 40-129 [facility] Stool Lactoferrin/WBCon 02-19 WBCST Is the patient recei ving laxatives? N New/unexplained onset of 3 or more stools in past 24 hrs? Y Fecal WBC Lactoferrin A Positive: Fecal WBC Lactoferrin present A Normal [facility] Comment on above: Performed By: #### M 100.6796, M100.0605, M100.637 ####[facility] [address] [place], [address] Stool lactoferrin detection by immunoassayOrdered By: Michela Noel on 03-04-2025 Lactoferrin IA Ql (Stl) [facility] Thyroid Stim Hormone (TSH)on 03-04-2025 TSH 1.110 uIU/mL Normal 0.300-4.20 0 [facility] Comment on above: Performed By: #### L 501.9520 #### [facility] [address] [place], [address] Total proteinOrdered By: Ezekiel Noel on 03-04-2025 Protein [Mass/Vol] 5.8 g/dL Low 5.9-8.4 [facility] Troponin T HS 4 HRon 025 Trop T High Sen 11 ng/L Normal <=22 [facility] Comment on above: Performed By: #### L 499.0043 #### [facility] [address] [place], [address] Absolute lymphocyte countOrd ered By: Jake Mcdonough on 03-03-2025 Lymphocytes Auto (Unsp spec) [#/Vol] 3.44 10*3/uL 0.83-4.51 [facility] Absolute neutrophil countOrd ered By: Jake Mcdonough on 03-03-2025 Neutrophils (Bld) [#/Vol] 10.3 10*3/uL High 2.0-7.7 [facility] Alcohol, Blood (Medical)-Ser umon 03-03-2025 SERUM ETOH 117.0 mg/dL High <=10.0 [facility] Comment on above: Result Comment: This test is for medical purposes only. The legal definition of intoxication varies according to local law. Performed By: #### L 501.9100 #### [facility] [address] [place], [address] Anion gap in Serum or Plasma Ordered By: Jake Mcdonough on 03-03-2025 Anion gap [Moles/Vol] 23 mmol/L High 5-15 [facility] Automated lymphocyte count a s percentage of total leukocytesOrdered By: Jake Mcdonough on 03-03-2025 Lymphocytes/100 WBC Auto (Unsp spec) 22.6 % 19-41 [facility] BUN/creatinine ratioOrdered By: Jake Mcdonough on 03-03-2025 Urea nitrogen/Creatinine [Mass ratio] 8.0 mg/mg Low 10-20 [facility] Basic Metabolic Profile (BMP )on 03-03-2025 BUN/CRE 8.0 RATIO Low 10-20 [facility] Comment on above: Performed By: #### L 100.0100, L500.2500 ####[facility] [address] [place], [address] Calcium [Mass/Vol] 9.1 mg/dL Normal 7.6-11.0 [facility] Comment on above: Performed By: #### L 100.0100, L500.2500 ####[facility] [address] [place], [address] Chloride [Moles/Vol] 91 mmol/L Low 98-108 [facility] Comment on above: Performed By: #### L 100.0100, L500.2500 ####[facility] [address] [place], [address] CO2 [Moles/Vol] 16.4 mmol/L Low 21.0-32.0 [facility] Comment on above: Performed By: #### L 100.0100, L500.2500 ####[facility] [address] [place], [address] Creatinine [Mass/Vol] 5.32 mg/dL High 0.70-1.20 [facility] Comment on above: Performed By: #### L 100.0100, L500.2500 ####[facility] [address] [place], [address] ECRCL 17.79 ml/min Low 50-250 [facility] Comment on above: Performed By: #### L 100.0100, L500.2500 ####[facility] [address] [place], [address] GAP 23 High 5-15 [facility] Comment on above: Performed By: #### L 100.0100, L500.2500 ####[facility] [address] [place], [address] GFR/1.73 sq M.predicted among non-blacks MDRD (S/P/Bld) [Vol rate/Area] 12 mL/min/{1.73_m2} Low >60 [facility] Comment on above: Result Comment: mL/m in/1.73m2 CKD-EPI Creatinine Equation (2020) Performed By: #### L 100.0100, L500.2500 ####[facility] [address] [place], [address] Glucose [Mass/Vol] 80 mg/dL Normal 70-99 [facility] Comment on above: Performed By: #### L 100.0100, L500.2500 ####[facility] [address] [place], [address] Potassium [Moles/Vol] 3.7 mmol/L Normal 3.3-5.1 [facility] Comment on above: Performed By: #### L 100.0100, L500.2500 ####[facility] [address] [place], [address] Sodium [Moles/Vol] 130 mmol/L Low 133-145 [facility] Comment on above: Performed By: #### L 100.0100, L500.2500 ####[facility] [address] [place], [address] Urea nitrogen [Mass/Vol] 42 mg/dL High 4-19 [place] [facility] Comment on above: Performed By: #### L 100.0100, L500.2500 ####[facility] [address] [place], [place], [address] Basophil percentageOrdered B y: Jake Mcdonough on 03-03-2025 Basophils/100 WBC (Bld) 0.2 % 0-1 [facility] Bilirubin Test strip Ql (U)O rdered By: Jake Mcdonough on 03-03-2025 Bilirubin Ql (U) Negative Negative [facility] Brain/Head without Contrasto n 03-03-2025 Brain/Head without Contrast [facility] [address] [place] [address] Brain/Head without Contrast MR#: [id number] Acct: [id number] Name: BETHANY MONTALVO Rep #: [id number] : 1965 M 59 From: Ger Kline MD PCP: XUAN Armendariz Status: REG ER Study: Brain/Head without Contrast Date of Exam: 02/19 10/13 Exam# [id number] Ordering Dr: Jake Mcdonough DO PROCEDURE: BRAIN/HEAD WITHOUT CONTRAST 03/03/2025 REASON FOR EXAM: DIZZY TECHNIQUE: BRAIN/HEAD WITHOUT CONTRAST Coronal and Sagittal reconstruction series were provided. One or more dose reduction techniques were used (e.g., Automated exposure control, adjustment of the mA and/or kV according to patient size, use of iterative reconstruction technique. RADIATION DOSE SUMMARY: CTDlvol: 44.99 mGy DLP: 846.73 mGycm COMPARISON: None. FINDINGS: No acute intracranial hemorrhage, extra-axial collection, mass effect or evidence of acute infarct. Ventricles and subarachnoid spaces are normal in size. Orbital contents are unremarkable. Intact skull base and calvarium. Well-aerated paranasal sinuses. Small amount of nonspecific dependent fluid within the right mastoid air cells. CT/Brain/Head without Contrast IMPRESSION: No acute intracranial abnormality. Reading Location: [facility] CC: XUAN Kwon; Dr. Jake Mcdonough DO [employer] Supervisor: Signed Normal [facility] CBC W/Diff, Automatedon 08-1 -2024 Absolute Lymph 3.44 X10 3/uL Normal 0.83-4.51 [facility] Comment on above: Performed By: #### L 100.0100, L500.2500 #### [facility] [address] [place], [address] Absolute Neut 10.3 X10 3/uL High 2.0-7.7 [facility] Comment on above: Performed By: #### L 100.0100, L500.2500 #### [facility] [address] [place], [address] Basophils/100 WBC (Bld) 0.2 % Normal 0-1 [facility] Comment on above: Performed By: #### L 100.0100, L500.2500 #### [facility] [address] [place], [address] Eosinophils/100 WBC (Bld) 1.2 % Normal 0-5 [facility] Comment on above: Performed By: #### L 100.0100, L500.2500 #### [facility] [address] [place], [address] Erythrocyte distribution width (RBC) [Ratio] 12.2 % Normal 11.6-14.6 [facility] Comment on above: Performed By: #### L 100.0100, L500.2500 #### [facility] [address] [place], [address] Hematocrit (Bld) [Volume fraction] 39.9 % Low 40-54 [facility] Comment on above: Performed By: #### L 100.0100, L500.2500 #### [facility] [address] [place], [address] Hemoglobin (Bld) [Mass/Vol] 14.5 g/dL Normal 13.0-16.5 [facility] Comment on above: Performed By: #### L 100.0100, L500.2500 #### [facility] [address] [place], [address] IG% 0.300 Normal 0.0-0.9 [facility] Comment on above: Result Comment: IG% - Immature Granulocytes (promyelocytes, myelocytes and metamyelocytes) > 1% indicates that a LEFT SHIFT is Present. Performed By: #### L 100.0100, L500.2500 #### [facility] [address] [place], [address] Lymphocytes/100 WBC (Bld) 22.6 % Normal 19-41 [facility] Comment on above: Performed By: #### L 100.0100, L500.2500 #### [facility] [address] [place], [address] MCH (RBC) [Entitic mass] 32.1 pg High 27.0-32.0 [facility] Comment on above: Performed By: #### L 100.0100, L500.2500 #### [facility] [address] [place], [address] MCHC (RBC) [Mass/Vol] 36.3 g/dL High 32-36 [facility] Comment on above: Performed By: #### L 100.0100, L500.2500 #### [facility] [address] [place], [address] MCV (RBC) [Entitic vol] 88.3 fL Normal 80-94 [facility] Comment on above: Performed By: #### L 100.0100, L500.2500 #### [facility] [address] [place], [address] Monocytes/100 WBC (Bld) 8.0 % Normal 0-10 [facility] Comment on above: Performed By: #### L 100.0100, L500.2500 #### [facility] [address] [place], [address] Neutrophils/100 WBC (Bld) 67.7 % Normal 47-70 [facility] Comment on above: Performed By: #### L 100.0100, L500.2500 #### [facility] [address] [place], [address] Nucleated RBC (Bld) [#/Vol] 0 10*3/uL Normal 0-5 [facility] Comment on above: Performed By: #### L 100.0100, L500.2500 #### [facility] Laboratory [address] [place], [address] Platelet mean volume (Bld) [Entitic vol] 10.3 fL Normal 6.2-12.0 [facility] Comment on above: Performed By: #### L 100.0100, L500.2500 #### [facility] Laboratory [address] [place], [address] Platelets (Bld) [#/Vol] 156 10*3/uL Normal 150-450 [facility] Comment on above: Performed By: #### L 100.0100, L500.2500 #### [facility] Laboratory [address] [place], [address] RBC (Bld) [#/Vol] 4.52 10*6/uL Low 4.6-6.2 [facility] Comment on above: Performed By: #### L 100.0100, L500.2500 #### [facility] Laboratory [address] [place], [address] RDW SD 39.5 fl Normal 35.1-43.9 [facility] Comment on above: Performed By: #### L 100.0100, L500.2500 #### [facility] Laboratory [address] [place], [address] WBC (Bld) [#/Vol] 15.2 10*3/uL High 4.4-11.0 [facility] Comment on above: Performed By: #### L 100.0100, L500.2500 #### [facility] Laboratory [address] [place], [address] CPK Total, Creatine Kinaseon 03-03-2025 CPK TOTAL 825 U/L High 24-195 [facility] Comment on above: Performed By: #### L 501.3620, L100.0100 #### [facility] Laboratory [address] [place], [address] Carbon dioxide, total [Moles /volume] in Central venous bloodOrdered By: Jake Mcdonough on 03-03-2025 CO2 [Moles/Vol] 16.4 mmol/L Low 21.0-32.0 [facility] Chest 1 View (Portable)on Chest 1 View (Portable) [facility] Imaging Services [address] [place] [address] Chest 1 View (Portable) MR#: [id number] Acct: [id number] Name: BETHANY MONTALVO Rep #: [id number] : 1965 M 59 From: Miguel Angel Ocampo MD PCP: XUAN Armendariz Status: ADM IN Study: Chest 1 View (Portable) Date of Exam: 03/03/25 Exam# [id number] Ordering Dr: Jake Mcdonough DO PROCEDURE: CHEST 1 VIEW (PORTABLE) 03/03/2025 REASON FOR EXAM: CHEST PAIN TECHNIQUE: Frontal view of the chest. COMPARISON: 01/02/2023 FINDINGS: Lordotic position. Normal heart size. Prominent fat pad. Well inflated lungs. No consolidation, effusion, or pneumothorax. RAD/Chest 1 View (Portable) IMPRESSION: No acute chest findings. Reading Location: RAD-OCAMPO-2 CC: PARTS PULLER-C Keren Kwon; Dr. Jake Mcdonough DO [employer] Supervisor: Signed Normal [facility] Chloride assayOrdered By: Antonio Mcdonough on 03-03-2025 Chloride [Moles/Vol] 91 mmol/L Low 98-108 [facility] Emergency Department Summary on 03-03-2025 Emergency Department Summary [facility] Medical Records Department [address] [place] [address] Emergency Department Summary 03/03/25 MR#: [id number] Acct: [id number] Name: BETHANY MONTALVO Rep #: [id number] : 1965 59 From: Jake Sloan PCP: Keren Kwon NP-C Status:ADM IN Location: [place] [address] HPI History of Present Illness Chief Complaint: Chest Pain Informant: patient Narrative Narrative: Presents to the ED for evaluation of headache, dizziness, chest pain since yesterday after leaving work. He worked his first full day yesterday a lot of heavy labor. States he was warm he was drinking water. He had 1/2-day prior to that. At the end of the day headache with dizziness and spinning. Intermittent chest pain. He states he did not urinate yesterday. Today urinated once. History of coronary disease 1 stent in 2018. No diabetes history. Has history of CKD. He states last couple days has had nonbloody loose stools. No recent antibiotics. Prior similar symptoms: No PFSH PFSH Medical History Personal history of colon polyps, [...] Suicidal ideation Atherosclerosis of coronary artery of [place] heart without angina pectoris Depression NSTEMI (non-ST elevated myocardial infarction) Obesity (BMI 30.0-34.9) Hyperlipidemia Hypertension Alcohol abuse Chest pain Home Medications ???Medication ???Instructions ???Recorded ???Last Taken ???Type omeprazole 20 mg capsule,delayed 20 mg PO DAILY heart burn 06/17/14 01/12/19 10:30 History release 20 MG nitroglycerin 0.4 mg sublingual 0.4 mg sublingual Q5M PRN Chest Unknown Rx tablet Pain #25 tabs cyclobenzaprine 10 mg tablet 10 mg PO DAILY PRN Pain 10/14/23 U nknown History folic acid 1 mg tablet 1 mg PO DAILY 10/14/23 Unknown His tory magnesium oxide 400 mg (241.3 mg 400 mg PO DAILY 10/14/23 Unknown H istory magnesium) tablet thiamine HCl (vitamin B1) 100 mg 100 mg PO DAILY 10/14/23 Unknown H istory tablet buspirone 7.5 mg tablet 7.5 mg PO TID 09/29/24 Unknown His tory carvedilol 25 mg tablet 25 mg PO BID 09/29/24 Unknown Hist ory lisinopril 10 mg tablet 10 mg PO QDAY 09/29/24 Unknown His tory trazodone 50 mg tablet 100 mg PO QHS 09/29/24 Unknown His tory aspirin 81 mg tablet,delayed 81 mg PO DAILY heart #90 tabs 03/15 Unknown Rx release atorvastatin 40 mg tablet 40 mg PO QHS #90 tabs 10/27/24 Unk nown Rx cyanocobalamin (vitamin B-12) 100 100 mcg PO DAILY 01/28/25 Unknown History mcg tablet (Vitamin B-12) multivitamin (Daily Multi-Vitamin 1 tab PO DAILY 01/28/25 Unknown H istory tablet) Allergy/AdvReac Type Severity Reaction Status Date / Time pseudoephedrine AdvReac Mild prostate Verified 03/03/25 19:15 infections Family History Mother CAD (coronary artery disease) Father CAD (coronary artery disease) Colon cancer, Onset Age: 53 At 53yrs Brother CAD (coronary artery disease) Myocardial infarction Sister CAD (coronary artery disease) Surgical History Hx of colonoscopy History of coronary artery stent placement Stented coronary artery History of tonsillectomy Hx of eye surgery Social History household members: significant other housing: apartment current occupational status: employed current occupation: [employer] Smoking Status: Former smoker alcohol intake: current alcohol intake frequency: 3 or more drinks per day substance use type: former substance user caffeine: Yes Type: coffee Number of servings: 2 what type of physical activity do you participate in: none ROS ROS ED Constitutional Constitutional ED: Denies chills, fever(s) or sweats ENT ENT ED: Denies sore throat Cardiovascular Cardiovascular: Denies chest pain, leg edema, palpitations or racing heartbeat Respiratory/Chest Respiratory/Chest: Denies cough, dyspnea or dyspnea (more content not included)... Normal [facility] Eosinophil percentageOrdered By: Jake Mcdonough on 03-03-2025 Eosinophils/100 WBC (Bld) 1.2 % 0-5 [facility] Erythrocyte distribution wid th ratioOrdered By: Jake Mcdonough on 03-03-2025 Erythrocyte distribution width (RBC) [Ratio] 12.2 % 11.6-14.6 [facility] Erythrocyte distribution wid th standard deviationOrdered By: Jake Mcdonough on 03-03-2025 Erythrocyte distribution width (RBC) [Ratio] 39.5 fl 35.1-43.9 [facility] Glomerular filtration rate ( GFR) estimation/1.73 sq m using serum, plasma, or whole bOrdered By: Jake Mcdonough on 03-03-2025 GFR/1.73 sq M.predicted among non-blacks MDRD (S/P/Bld) [Vol rate/Area] 12 mL/min/{1.73_m2} Low >60 [facility] Comment on above: mL/min/1.73m2 CKD-EP I Creatinine Equation (2020) H AND P Exam - Hospital[place] 03-03-2025 H&P Exam - Hospitalist [facility] Medical Records Department [address] [place] [address] H P Exam - Hospitalist 03/03/25 210 MR#: [id number] Acct: [id number] Name: BETHANY MONTALVO Rep #: [id number] : 1965 59 From: Michela Murillo DO PCP: XUAN Armendariz Status:ADM IN Location: [address] [facility] - General General Date of Admission: 03/03/25 Date of Service: 03/03/25 Chief Complaint: Chest Pain, Headache, Dizziness and Exhaustion. HPI Leticia MONTALVO, is a 59 M with a past medical history of essential hypertension; on lisinopril and carvedilol BID, hyperlipidemia; on atorvastatin, obesity (class I); with BMI of 31.1 this admission, AARON, CAD; s/p NSTEMI with subsequent LCX stent (2018) on BASA daily plus prn SL NTG, history of CHF, history of TIA; with known carotid artery disease, former tobacco abuse; with subsequent asthma/COPD, history of EtOH abuse; patient admits to only one drink today because he was nervous but denies chronic EtOH abuse on folate and cyanocobalamin supplements, history of liver steatosis, history of thrombocytopenia, history of medical noncompliance, history of gallbladder polyp, CKD; stage IIIa, depression; with history of suicidal ideation on buspirone TID and trazodone q. HS, muscle spasms; on prn tizanidine, GERD; on omeprazole and OA who presents to [facility] ER complaining of chest pain, headache, dizziness and exhaustion. Mr. Montalvo reports his symptoms began approximately 1 day prior to admission after he worked his first full day of heavy labor in the heat. He states he was drinking warm water and felt worse throughout the day with subsequent headache, dizziness and spinning sensation complicated by intermittent chest pain and nonbloody diarrhea. He denies recent antibiotics or similar prior episodes. He admits to recent decrease in urinary output but he denies dysuria, hematuria or urinary frequency. He also denies associated fever, chills, runny nose, sore throat, ear pain, chest pain, palpitations, heart racing, lower extremity edema, shortness of breath, cough, abdominal pain, nausea, vomiting, arthralgias, myalgias, paresthesias, focal neurologic deficits or rash. In the ER he was noted to have laboratory evidence of severe LUZ MARIA; with elevated serum creatinine of 5.32 mg/dL with BUN of 42 mg/dL and eGFR of 12 mL/min (up from his baseline of 1.49 mg/dL with a BUN of 12 mg/dL and eGFR of 52 mL/min on last evaluation) complicated by elevated total creatinine kinase of 825 units/L due to Myotoxicity after recent strenuous exertion in the heat of the day with Leukocytosis of 15.2 K present on admission with Nonbloody Diarrhea and mild Hyponatremia of 130 mmol/L (down from 137 mmol/L on last evaluation) with a head CT done in the ER that revealed no acute intracranial abnormality. He was then admitted to the PCU for ongoing care for a stay that is expected to extend beyond 2 midnights. [facility] Medical History Personal history of colon polyps, [...] Suicidal ideation Atherosclerosis of coronary artery of [place] heart without angina pectoris Depression NSTEMI (non-ST elevated myocardial infarction) Obesity (BMI 30.0-34.9) Hyperlipidemia Hypertension Alcohol abuse Chest pain Home Medications ???Medication ???Instructions ???Recorded ???Last Taken ???Type omeprazole 20 mg capsule,delayed 20 mg PO DAILY heart burn 06/17/14 01/12/19 10:30 History release 20 MG nitroglycerin 0.4 mg sublingual 0.4 mg sublingual Q5M PRN Chest Unknown Rx tablet Pain #25 tabs cyclobenzaprine 10 mg tablet 10 mg PO DAILY PRN Pain 10/14/23 U nknown History folic acid 1 mg tablet 1 mg PO DAILY 10/14/23 Unknown His tory magnesium oxide 400 mg (241.3 mg 400 mg PO DAILY 10/14/23 Unknown H istory magnesium) tablet thiamine HCl (vitamin B1) 100 mg 100 mg PO DAILY 10/14/23 Unknown H istory tablet buspirone 7.5 mg tablet 7.5 mg PO TID 09/29/24 Unknown His tory carvedilol 25 mg tablet 25 mg PO BID 09/29/24 (more content not included)... Normal [facility] Hematocrit Auto (Bld) [Volum e fraction]Ordered By: Jake Mcdonough on 03-03-2025 Hematocrit (Bld) [Volume fraction] 39.9 % Low 40-54 [facility] Hemoglobin measurementOrdere d By: Jake Mcdonough on 03-03-2025 Hemoglobin (Bld) [Mass/Vol] 14.5 g/dL 13.0-16.5 [facility] Immature granulocytes/100 WB C Auto (Bld)Ordered By: Jake Mcdonough on 03-03-2025 Immature granulocytes/100 WBC (Bld) 0.300 % 0.0-0.9 [facility] Comment on above: IG% - Immature Granu locytes (promyelocytes, myelocytes and metamyelocytes) > 1% indicates that a LEFT SHIFT is Present. Ketones Test strip Ql (U)Ord ered By: Jake Mcdonough on 03-03-2025 Ketones Ql (U) Negative Negative [facility] L501.4021on 03-03-2025 Trop T High Sen 13 ng/L Normal <=22 [facility] Comment on above: Performed By: #### L 501.3620, L100.0100 #### [facility] Laboratory [address] [facility] [facility] [place], [place], [id number] MCV (mean corpuscular volume ) determinationOrdered By: Jake Mcdonough on 03-03-2025 MCV (RBC) [Entitic vol] 88.3 fL 80-94 [facility] Magnesiumon 03-03-2025 Magnesium [Mass/Vol] 2.0 mg/dL Normal 1.5-2.2 [facility] Comment on above: Performed By: #### L 501.3620, L100.0100 #### [facility] Laboratory [address] [facility] [place], [place], [address] Magnesium measurement (mass/ volume)Ordered By: Michela Noel on 03-03-2025 Magnesium (Unsp spec) [Mass/Vol] 2.0 mg/dL 1.5-2.2 [facility] Mean corpuscular hemoglobin (MCH) determinationOrdered By: Jake Mcdonough on 03-03-2025 MCH (RBC) [Entitic mass] 32.1 pg High 27.0-32.0 [facility] Mean corpuscular hemoglobin concentration (MCHC) determinationOrdered By: Jake Mcdonough on 03-03-2025 MCHC (RBC) [Mass/Vol] 36.3 g/dL High 32-36 [facility] Mean platelet volume determi nationOrdered By: Jake Mcdonough on 03-03-2025 Platelet mean volume (Bld) [Entitic vol] 10.3 fL 6.2-12.0 [facility] Microscopic analysis of urin e for red blood cells (RBC)Ordered By: Jake Mcdonough on 03-03-2025 Microscopic analysis of urine for red blood cells (RBC) 0 SEEN /hpf 0-5 [facility] Monocyte percentageOrdered B y: Jake Mcdonough on 03-03-2025 Monocytes/100 WBC (Bld) 8.0 % 0-10 [facility] Mucus LM Ql (Urine sed)Order ed By: Jake Mcdonough on 03-03-2025 Mucus Ql (Urine sed) 0 SEEN /hpf [facility] Neutrophil percentageOrdered By: Jake Mcdonough on 03-03-2025 Neutrophils/100 WBC (Bld) 67.7 % 47-70 [facility] Nitrite Test strip Ql (U)Ord ered By: Jake Mcdonough on 03-03-2025 Nitrite Ql (U) Negative Negative [facility] Nucleated red blood cell per centageOrdered By: Jake Mcdonough on 03-03-2025 Nucleated RBC/100 WBC (Bld) [Ratio] 0 % 0-5 [facility] Platelet countOrdered By: Antonio Mcdonough on 03-03-2025 Platelets (Bld) [#/Vol] 156 10*3/uL 150-450 [facility] Potassium measurement (mass/ volume)Ordered By: Jake Mcdonough on 03-03-2025 Potassium (Unsp spec) [Mass/Vol] 3.7 mmol/L 3.3-5.1 [facility] Protein Test strip Ql (U)Ord ered By: Jake Mcdonough on 03-03-2025 Protein Ql (U) 15 mg/dl High Negative [facility] RBC Auto (Bld) [#/Vol]Ordere d By: Jake Mcdonough on 03-03-2025 RBC (Bld) [#/Vol] 4.52 10*6/uL Low 4.6-6.2 [facility] Serum creatinine measurement (mass/volume)Ordered By: Jake Mcdonough on 03-03-2025 Creatinine [Mass/Vol] 5.32 mg/dL High 0.70-1.20 [facility] Serum glucose measurement (m ass/volume)Ordered By: Jake Mcdonough on 03-03-2025 Glucose [Mass/Vol] 80 mg/dL 70-99 [facility] Serum or plasma calcium raina urement (mass/volume)Ordered By: Jake Mcdonough on 03-03-2025 Calcium [Mass/Vol] 9.1 mg/dL 7.6-11.0 [facility] Serum or plasma creatine kin ase activityOrdered By: Jake Mcdonough on 03-03-2025 CK [Catalytic activity/Vol] 825 U/L High 24-195 [facility] Serum or plasma ethanol raina urement (mass/volume)Ordered By: Jake Mcdonough on 03-03-2025 Ethanol [Mass/Vol] 117.0 mg/dL High <10.1 [facility] Comment on above: This test is for med ical purposes only. The legal definition of intoxication varies according to local law. Serum or plasma urea nitroge n measurement (mass/volume)Ordered By: Jake Mcdonough on 03-03-2025 Urea nitrogen [Mass/Vol] 42 mg/dL High 4-19 [facility] Sodium levelOrdered By: Jake Mcdonough on 03-03-2025 Sodium [Moles/Vol] 130 mmol/L Low 133-145 [facility] Squamous epithelial cells de tection in urine sediment by light microscopyOrdered By: Jake Mcdonough on 03-03-2025 Epithelial cells.squamous LM Ql (Urine sed) 0-5 SEEN /hpf 0-5 [facility] TSH DL <= 0.005 mIU/L QnOrde red By: Michela Noel on 03-03-2025 TSH Qn 1.110 uIU/mL 0.300-4.20 0 [facility] Troponin T HS 2 HRon 025 Trop T High Sen 11 ng/L Normal <=22 [facility] Comment on above: Performed By: #### L 499.0042 #### [facility] Laboratory [address] [place], [address] Troponin T.cardiac [Mass/vol ume] in Serum or Plasma by High sensitivity methodOrdered By: Jake Mcdonough on 03-03-2025 Troponin T.cardiac High sensitivity method [Mass/Vol] 11 ng/L <22 [facility] Troponin T.cardiac High sensitivity method [Mass/Vol] 11 ng/L <22 [facility] Troponin T.cardiac High sensitivity method [Mass/Vol] 13 ng/L <22 [facility] Urinalysis, Completeon 03-03 EPI,SQUAMOUS 0-5 SEEN Normal 0-5 [facility] Comment on above: Order Comment: CLEAN CATCH Performed By: #### L 501.3620, L100.0100 #### [facility] Laboratory [address] [place], [address] WBC 0-5 SEEN Normal 0-5 [facility] Comment on above: Order Comment: CLEAN CATCH Performed By: #### L 501.3620, L100.0100 #### [facility] Laboratory [address] [place], [address] BACTERIA 0 SEEN Normal None Seen [facility] Comment on above: Order Comment: CLEAN CATCH Performed By: #### L 501.3620, L100.0100 #### [facility] Laboratory [address] [place], [address] Mucus Ql (Urine sed) 0 SEEN Normal [facility] Comment on above: Order Comment: CLEAN CATCH Performed By: #### L 501.3620, L100.0100 #### [facility] Laboratory [address] [place], [address] RBC 0 SEEN Normal 0-5 [facility] Comment on above: Order Comment: CLEAN CATCH Performed By: #### L 501.3620, L100.0100 #### [facility] Laboratory [address] [place], [address] Urine clarityOrdered By: Mulugeta Mcdonough on 03-03-2025 Clarity (U) Clear Clear [facility] Urine color determinationOrd ered By: Jake Mcdonough on 03-03-2025 Color (U) Straw Yellow [facility] Urine glucose detectionOrder ed By: Jake Mcdonough on 03-03-2025 Glucose Ql (U) Normal mg/dl Normal [facility] Urine leukocyte esterase det ection by dipstickOrdered By: Jake Mcdonough on 03-03-2025 Leukocyte esterase Test strip Ql (U) Negative Negative [facility] Urine pHOrdered By: Jake Mcdonough on 03-03-2025 pH (U) 6.0 [pH] 5.0 - 8.0 [facility] Urine sediment bacteria coun t by microscopy (number/high power field)Ordered By: Jake Mcdonough on 03-03-2025 Bacteria LM.HPF (Urine sed) [#/Area] 0 /[HPF] None Seen [facility] Urine specific gravity measu rementOrdered By: Jake Mcdonough on 03-03-2025 Specific gravity (U) [Rel density] 1.010 1.002-1.03 0 [facility] Urine urobilinogen measureme ntOrdered By: Jake Mcdonough on 03-03-2025 Urobilinogen Ql (U) Normal mg/dl Normal [facility] White blood cell (WBC) count Ordered By: Jake Mcdonough on 03-03-2025 WBC (Bld) [#/Vol] 15.2 10*3/uL High 4.4-11.0 [facility] White blood cell countOrdere d By: Jake Mcdonough on 03-03-2025 White blood cell count 0-5 SEEN /hpf 0-5 [facility] CNOVon 02-09-2025 CNOV Office Visit (WOUCA) BETHANY MONTALVO ([id number]) 1965 Date Time Provider Department 02/09/25 2:45 PM GARY HUTTON WOEMILY During your visit today, we recorded the following information about you: Temperature Pulse Respiration Blood pressure 98.6 degrees 77/minute 16/minute 122/78 Weight 96.3 kg Gary Hutton PA 02/09/2025 2:34 PM Signed [facility] Subjective Bethany Montalvo is a 59 year [...] No recent use of Pepto-Bismol. - Taking [id number] cold and flu medication. - Vomiting early Saturday morning; none yesterday or today. - Denies eating anything out of the ordinary recently. - Reports dizziness. Abdominal Pain: - Describes abdomen as feeling "tossed and turned." - No appetite. - History of stomach [...] rule out serious conditions. and Recording using [employer] software for draft documentation of the visit was discussed with the patient/authorized sales representative jewelry; all questions welcomed and answered. Patient/authorized sales representative jewelry agreed to proceed Disposition The patient was [...] mouth jenny (more content not included)... Normal [facility] CNOVon 12-11-2024 CNOV Office Visit (FAMPWS ) BETHANY MONTALVO ([id number]) 1965 M Date Time Provider Department 12/11/24 2:20 PM [facility] During your visit today, we recorded the following information about you: Pulse Respiration Blood pressure 72/minute 16/minute 130/82 Keren Kwon APRN.[employer] 12/11/2024 4:39 PM Signed This is a [...] Age of Onset Psychiatry Mother Heart Mother [place] 53 Heart Father [place] 51 Colon Cancer Father other (Heart stent) [...] 03/2014. Cipriano (more content not included)... Normal [facility] Additional Injectionson 09-19 Juarez Hernández V, DO 10/07/2024 2:09 PM [...] these instructions. Informed Consent Consent Obtained: Verbal [place]ale Protocol SIGN IN TIME OUT [facility] CNOVon 10-07-2024 CNOV Office Visit (FRFHWS ) BETHANY MONTALVO ([id number]) 1965 M Date Time Provider Department 10/07/24 1:30 PM JUAREZ HERNÁNDEZWS During your visit today, we recorded the [...] DATE: October 07, 2024 PCP: Keren Kwon APRN.[employer] Subjective Patient ID: Bethany is a 58 [...] Age of Onset Psychiatry Mother Heart Mother [place] 53 Heart Father [place] 51 Colon Cancer Father other (Heart stent) [...] day. traZODone (more content not included)... Normal [facility] Free PSA [Mass/Vol]on 2024 Free PSA/Total PSA [Mass fraction] 14 % Normal [facility] Comment on above: Order Comment: Speci men Type: BLOOD SPECIMENOrdering Facility: [facility] Address: [address] [place] [address] Result Comment: Tota l and free PSA test methodology used is the Electrochemiluminescence Immunoassay by [employer]. Total or free PSA values by differing [...] 15.8% Performed By: #### 1 0886-0 ####[facility] LABCLIA [id number] [place] [address] [place] Prostate specific Ag [Mass/Vol] 4.14 ng/mL High <2.60 [facility] Comment on above: Order Comment: Speci men Type: BLOOD SPECIMENOrdering Facility: [facility] Address: [address] [place] [address] Result Comment: Tota l PSA test methodology used is the Electrochemiluminescence Immunoassay by [employer]. Total PSA values by differing methodologies cannot [...] 2003,349:335-42. Performed By: #### 1 0886-0 ####[facility] LABCLIA [id number] [place] [id number] [place] Gastroenterology Visit Repor ton 09-29-2024 Gastroenterology Visit Report [facility]enter[facility] [address] [facility] [place] [address] OFFICE VISIT Date of Service: 09/29/24 MR#: [id number] Acct: [id number] Name: BETHANY MONTALVO Rep #: [id number] : 1965 Provider: XUAN cochran Age/Sex: 58/M Location: [facility] Status: Signed Intake Vital Signs 07/23/24 12:07 09/29/24 14:11 Height 5 ft 10 in 5 ft 10 in Weight: 206 lb 8 oz BMI 29.6 BP 110/75 Respiration 16 Pulse 113 H Pulse Oximetry (%) 96 Oxygen Delivery Method room air Intake Visit Reasons: Gastroesophageal reflux disease (GERD) Chief Complaint: SOB and cough Basket Filler Required: No Is patient in pain?: No [...] Note: Has occasional acid reflux. Some diarrhea. [facility] Medical History Personal history of colon polyps, [...] Suicidal ideation Atherosclerosis of coronary artery of bill [place] heart without angina pectoris Depression NSTEMI (non-ST [...] apartment current occupational status: employed current occupation: [employer] Smoking Status: Former smoker alcohol intake: current [...] - qu (more content not included)... Normal [facility] CNOVon 09-28-2024 [facility] BETHANY MONTALVO ([id number]) 1965 M Date Time Provider Department 09/28/24 3:40 PM KEREN KWON During your visit today, we recorded the following information about you: Pulse Respiration Blood pressure Weight 113/minute 16/minute 122/80 92.1 kg Keren Kwon APRN.CNP 09/29/2024 1:38 PM Signed This is a 58 year old male who presents today with: Patient presents with: Follow Up: 4 week BP HISTORY OF PRESENT ILLNESS: Bethany Montalvo is a 58 year old male. Patient presents with: Follow Up: 4 week BP Elevated alk phos. Fatty liver. Has appt with [place] tomorrow. Needs referral to GI faxed. [...] Age of Onset Psychiatry Mother Heart Mother [place] 53 Heart Father [place] 51 Colon Cancer Father other (Heart stent) [...] 29.13 kg/m? (more content not included)... Normal [facility] CNOV Office Visit (UROLWS ) BETHANY MONTALVO ([id number]) 1965 M Date Time Provider Department 09/28/24 2:00 PM CHRIS DEVLIN UROLEVAR During your visit today, we recorded the following information about you: Temperature Pulse Respiration Blood pressure 96.9 degrees 80/minute 18/minute 118/80 Weight Height 91.2 kg 1.778 m Lindsay Fonseca LPN 09/28/2024 1:06 PM Signed Verified name and date of . CC Post Void Residual HPI: [facility] [...] PSA is less than 4, it is "normal" and if it is higher than 4 it is "not normal." Having said that, the [facility] uses a lower cut-off of 2.59, [...] Chris Devlin DNP, CHRISTIANA Department of Urology [facility] Chris Devlin APRN.MARLY VILLEDA 09/28/2024 1:06 PM Signed [facility] PSA/PROSTATE EVALUATION HISTORY AND PHYSICAL EXAM PATIENT: Bethany Montalvo (58 year old) PCP: Keren Kwon APRN.CHRISTIANA REFERRING Provider: Keren Kwon APRN.C* === Consultation requested by Dr. Keren Kwon [address] [facility] [address] for an opinion regarding Elevated PSA and my final recommendations will be co (more content not included)... Normal [facility] UA DIP, URINE (POC)on 2024 BILIRUBIN UA (POCT) Negative Negative [facility] CLARITY UA (POCT) Slightly Cloudy Cl [facility] COLOR UA (POCT) Dark yellow [facility] GLUCOSE UA (POCT) Negative Negative mg/dL [facility] Hemoglobin Ql (U) Negative Negative [facility] KETONE UA (POCT) Negative Negative mg/dL [facility] LEUKOCYTES UA (POCT) Negative Negative [facility] NITRITE UA (POCT) Negative Negative [facility] PH UA (POCT) 5.5 4.5 - 8.0 [facility] Protein Ql (U) Negative Negative mg/dL [facility] SPECIFIC GRAVITY UA (POCT) 1.025 1.005 - 1.030 [facility] UROBILINOGEN UA (POCT) 0.2 Normal E.U./dL [facility] Location:[facility], [address], [place], [address] [facility] POINT OF CARE [facility] Valdo 09-25-2024 ISAIAS Telephone (UROLWS) BETHANY MONTALVO ([id number]) 1965 M Date Time Provider Department 09/25/24 CHRIS DEVLIN During your visit today, we recorded the following information about you: Lindsay Fonseca LPN 09/25/2024 1:03 PM Signed Called patient regarding appointment on Saturday due to provider having a meeting between [phone]. Patient offered times to come into clinic and will come in at 1230 for appointment. HARMONY Nino Daniel, APRN.CNP, DNP 09/25/2024 2:36 PM Signed Noted. Chris Devlin APRN.MARLY VILLEDA Allergies As of Date: 09/25/2024 Noted Allergy [...] Encounter Status:Closed by LINDSAY FONSECA on 09/25/24 [facility] CNOVvidal 08-31-2024 CNOV Office Visit (FAMPWS ) BETHANY MONTALVO ([id number]) 1965 M Date Time Provider Department 2/10/25 3:20 PM KEREN KWON During your visit today, we recorded the following information about you: Pulse Respiration Blood pressure 114/minute 16/minute 153/97 Keren Kwon APRN.GORE STITCHER 08/31/2024 8:46 PM Signed This is a [...] with psychiatric at the counseling center at [place] Is interested and agreeable to following with a counselor again at [place]. 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 Meenu in mid to late teens. TO REVIEW [...] wheezing, COPD, (more content not included)... Normal [facility] BETHANY MONTALVO ([id number]) 1965 M Date Time Provider Department 08/28/24 [facility] KWON [facility] During your visit today, we recorded the following information about you: Keren Kwon APRN.GORE STITCHER 08/28/2024 3:37 PM Signed Can please let [...] Primary Visit Diagnosis:Hepatosplenomegaly [R16.2] Order(s):CONSULT TO GASTROENTEROLOGY [9010] Order #: [id number]: 1 FUTURE Prescriptions as of 08/31/2024 - [...] Status:Closed by DONNA RICHEY on 08/31/24 Normal [facility] No Panel Informationon 08-27 IMPRESSION: 1. Fatty liver. Small hypoechoic area in the liver adjacent to the gallbladder probably represents an area of focal fatty sparing. 2. Hepatosplenomegaly Briar [employer] Supervisor[facility] Transcribe Date/Time: Aug 27 2024 4:28P Dictated by : CRISTIAN BENZ DO This examination was interpreted and the report reviewed and electronically signed by: CRISTIAN BENZ DO on Aug 27 2024 4:31PM [facility] DIVISION OF RADIOLOGY No Panel InformationOrdered By: Ccf Provider on 08-27-2024 [facility] US ABD RIGHT UPPER QUADRANTo n 08-27-2024 US ABD RIGHT UPPER QUADRANT * * *Final Report* * * DATE OF EXAM: Aug 27 2024 2:16PM U 1032 - US ABD RIGHT UPPER QUADRANT [...] area of focal fatty sparing. 2. Hepatosplenomegaly Briar [employer] Supervisor: [facility] Transcribe Date/Time: Aug 27 2024 4:28P Dictated by : CRISTIAN BENZ DO This examination was interpreted and the report reviewed and electronically signed by: CRISTIAN BENZ DO on Aug 27 2024 4:31PM EST [id number] Normal [facility] ABD SPLEEN - NBon 025 * * *Final Report* * * DATE OF EXAM: Aug 27 2024 2:16PM [place] [id number] - US ABD SPLEEN -NB / PROCEDURE [...] portal vein: Unremarkable DIVISION OF RADIOLOGY Provider, [facility] - 08/27/2024 * * *Final Report* * * DATE OF EXAM: Aug 27 2024 2:16PM [place] [id number] - ABD SPLEEN -NB / PROCEDURE REASON: Elevated [...] area of focal fatty sparing. 2. Hepatosplenomegaly Briar [employer] Supervisor: [facility] Transcribe Date/Time: Aug 27 2024 4:28P Dictated by : CRISTIAN BENZ DO This examination was interpreted and the report reviewed and electronically signed by: CRISTIAN BENZ DO on Aug 27 2024 4:31PM EST [facility] Radiology Study observation (narrative) [facility] US ABD SPLEEN -NBon 08-27-19 25 US ABD SPLEEN -NB * * *Final [...] area of focal fatty sparing. 2. Hepatosplenomegaly Briar [employer] Supervisor: [facility] Transcribe Date/Time: Aug 27 2024 4:28P Dictated by : CRISTIAN BENZ DO This examination was interpreted and the report reviewed and electronically signed by: CRISTIAN BENZ DO on Aug 27 2024 4:31PM EST [id number] Normal [facility] US Abdomen RUQon 08-27-2024 * * [...] portal vein: Unremarkable DIVISION OF RADIOLOGY Provider, [facility] - 08/27/2024 * * *Final Report* * * DATE OF EXAM: Aug 27 2024 2:16PM [facility] 1032 - US ABD RIGHT UPPER [...] area of focal fatty sparing. 2. Hepatosplenomegaly Briar [employer] Supervisor: JOHN Transcribe Date/Time: Aug 27 2024 4:28P Dictated by : CRISTIAN BENZ DO This examination was interpreted and the report reviewed and electronically signed by: CRISTIAN BENZ DO on Aug 27 2024 4:31PM EST [facility] Radiology Study observation (narrative) [facility] CNOVon 08-24-2024 CNOV Office Visit (FAMPWS ) BETHANY MONTALVO ([id number]) 1965 M Date Time Provider Department 08/24/24 11:20 AM KEREN KWON During your visit today, we recorded the following information about you: Pulse Respiration Blood pressure 132/minute 16/minute 179/117 Keren Kwon APRN.GORE STITCHER 08/24/2024 12:45 PM Signed This is a [...] Age of Onset Psychiatry Mother Heart Mother [place] 53 Heart Father [place] 51 Colon Cancer Father Social History Tobacco [...] knee w (more content not included)... Normal [facility] BETH[facility] MONTALVO ([id number]) 1965 M Date Time Provider Department 08/12/24 KEREN KWON During your visit today, we recorded the following information about you: Keren Kwon APRN.GORE STITCHER 08/12/2024 1:01 PM Addendum Can please let [...] [R74.8] Order(s):CONSULT TO UROLOGY [9041] Order #: [id number]: 1 FUTURE US ABD RIGHT UPPER QUADRANT [[id number]] Order #: [id number] FUTURE predniSONE (DELTASONE) 10 mg tabletTake 4 [...] food. Encounter (more content not included)... Normal [facility] ALKALINE PHOSPHATASE ISOENZY MES (P)on 08-11-2024 ALK PHOS BONE % 27.2 % Normal 10.7-68.3 [facility] Comment on above: Order Comment: Speci men Type: BLOOD SPECIMENOrdering Facility: [facility] Address: [address] [place] [address] Performed By: #### A LKISOP ####[facility] LABCLIA [id number] [place] [address] [place] ALK PHOS LIVER % 72.8 % Normal 26.0-86.2 [facility] Comment on above: Order Comment: Speci men Type: BLOOD SPECIMENOrdering Facility: [facility] Address: [address] [place] [address] Performed By: #### A LKISOP ####[facility] LABCLIA [id number] [place] [address] [place] BONE FRACTION 39.2 U/L Normal 12.9-52.6 [facility] Comment on above: Order Comment: Speci men Type: BLOOD SPECIMENOrdering Facility: [facility] Address: [address] [place] [address] Performed By: #### A LKISOP ####[facility] LABCLIA [id number] [place] [address] [place] INTESTINE FRACTION 0.0 U/L Normal 0.0-16.3 [facility] Comment on above: Order Comment: Speci men Type: BLOOD SPECIMENOrdering Facility: [facility] Address: [address] [place] [address] Performed By: #### A LKISOP ####[facility] LABIA [id number] [place] [address] [place] LIVER FRACTION 104.8 U/L High 16.0-69.3 [facility] Comment on above: Order Comment: Speci men Type: BLOOD SPECIMENOrdering Facility: [facility] Address: [address] [place] [address] Performed By: #### A LKISOP ####[facility] LABIA [id number] [place] [address] [place] Neutrophils/100 WBC (Bld) 0.0 % Normal 0.0-24.2 [facility] Comment on above: Order Comment: Speci men Type: BLOOD SPECIMENOrdering Facility: [facility] Address: [address] [place] [address] Performed By: #### A LKISOP ####[facility] LABIA [id number] [place] [address] [place] ALP SerPl-cCncon 08-11-2024 ALP [Catalytic activity/Vol] 144 U/L High 38-113 [facility] Comment on above: Order Comment: Speci men Type: BLOOD SPECIMENOrdering Facility: [facility] Address: [address] [place] [address] Performed By: #### 6 768-6 ####[facility] LABIA [id number] [place] [address] [place] Basic metabolic 2000 panelon 08-11-2024 Anion gap [Moles/Vol] 18 mmol/L High 8-15 [facility] Comment on above: Order Comment: Speci men Type: BLOOD SPECIMENOrdering Facility: [facility] Address: [address] [place] [address] Performed By: #### 1 988-5, 3084-1, 62467-0, 84536-3 ####[facility] LABCLIA [id number] [place] [address] [place] Calcium [Mass/Vol] 9.0 mg/dL Normal 8.5-10.2 [facility] Comment on above: Order Comment: Speci men Type: BLOOD SPECIMENOrdering Facility: [facility] Address: [address] [place] [address] Performed By: #### 1 988-5, 3084-1, 80571-1, 67054-1 ####[facility] LABCLIA [id number] [place] [address] [place] Chloride [Moles/Vol] 97 mmol/L Low 98-107 [facility] Comment on above: Order Comment: Speci men Type: BLOOD SPECIMENOrdering Facility: [facility] Address: [address] [place] [address] Performed By: #### 1 988-5, 3084-1, 65420-4, 17033-7 ####[facility] LABCLIA [id number] [place] [address] [place] CO2 [Moles/Vol] 21 mmol/L Low 22-30 [facility] Comment on above: Order Comment: Speci men Type: BLOOD SPECIMENOrdering Facility: [facility] Address: [address] [place] [address] Performed By: #### 1 988-5, 3084-1, 96484-0, 59920-8 ####[facility] LABCLIA [id number] [place] [address] [place] Creatinine [Mass/Vol] 1.16 mg/dL Normal 0.73-1.22 [facility] Comment on above: Order Comment: Chirag jeffrey Type: BLOOD SPECIMENOrdering Facility: [facility] Address: [address] [place] [address] Performed By: #### 1 988-5, 3084-1, 83521-3, 80660-7 ####[facility] LABCLIA [id number] [place] [address] [place] Creatinine and Glomerular filtration rate.predicted panel (S/P/Bld) 73 mL/min/1.73m??? Normal >=60 [facility] Comment on above: Order Comment: Chirag jeffrey Type: BLOOD SPECIMENOrdering Facility: [facility] Address: [address] [place] [address] Result Comment: Misty mated Glomerular Filtration Rate [...] GFR. Performed By: #### 1 988-5, 3084-1, 26809-4, 44559-2 ####[facility] LABCLIA [id number] [address] [address] [place] Glucose [Mass/Vol] 109 mg/dL High 74-99 [facility] Comment on above: Order Comment: Chirag jeffrey Type: BLOOD SPECIMENOrdering Facility: [facility] Address: [address] [place] [address] Result Comment: The [place] Diabetes Association (ADA) provides guidance for cutoff [...] Standards of Medical Care in Diabetes 2016, [place] [employer]. Diabetes Care. 2016.39(Suppl 1). Performed By: #### 1 988-5, 3084-1, 82282-2, 10581-5 ####[facility] LABCLIA [id number] [place] [address] [place] Potassium [Moles/Vol] 4.6 mmol/L Normal 3.7-5.1 [facility] Comment on above: Order Comment: Speci men Type: BLOOD SPECIMENOrdering Facility: [facility] Address: [address] [place] [address] Performed By: #### 1 988-5, 3084-1, 82702-7, 73129-2 ####[facility] LABIA [id number] [place] [address] [place] Sodium [Moles/Vol] 136 mmol/L Normal 136-144 [facility] Comment on above: Order Comment: Speci men Type: BLOOD SPECIMENOrdering Facility: [facility] Address: [address] [place] [address] Performed By: #### 1 988-5, 3084-1, 45169-1, 22446-1 ####[facility] LABIA [id number] [place] [address] [place] Urea nitrogen [Mass/Vol] 9 mg/dL Normal 9-24 [facility] Comment on above: Order Comment: Speci men Type: BLOOD SPECIMENOrdering Facility: [facility] Address: [address] [place] [address] Performed By: #### 1 988-5, 3084-1, 62461-7, 72196-3 ####[facility] LABCLIA [id number] [place] [address] [place] CBC W Auto Differential pane l (Bld)on 08-11-2024 Basophils (Bld) [#/Vol] 0.03 10*3/uL Normal <0.11 [facility] Comment on above: Order Comment: Speci men Type: BLOOD SPECIMENOrdering Facility: [facility] Address: [address] [place] [address] Performed By: #### 4 537-7, 71052-8 ####[facility] LABCLIA [id number] [facility] [place] [address] [place] Basophils/100 WBC (Bld) 0.4 % Normal [facility] Comment on above: Order Comment: Speci men Type: BLOOD SPECIMENOrdering Facility: [facility] Address: [address] [place] [address] Performed By: #### 4 537-7, 11250-5 ####[facility] LABCLIA [id number] [place] [address] [place] Differential cell count method Nom (Bld) Auto Normal [facility] Comment on above: Order Comment: Speci men Type: BLOOD SPECIMENOrdering Facility: [facility] Address: [address] [place] [address] Performed By: #### 4 537-7, 43087-9 ####[facility] LABCLIA [id number] [place] [address] [place] Eosinophils (Bld) [#/Vol] 0.06 10*3/uL Normal <0.46 [facility] Comment on above: Order Comment: Speci men Type: BLOOD SPECIMENOrdering Facility: [facility] Address: [address] [place] [address] Performed By: #### 4 537-7, 26656-1 ####[facility] LABCLIA [id number] [facility] [place] [address] [place] Eosinophils/100 WBC (Bld) 0.9 % Normal [facility] Comment on above: Order Comment: Speci men Type: BLOOD SPECIMENOrdering Facility: [facility] Address: [address] [place] [address] Performed By: #### 4 537-7, 93883-6 ####[facility] LABCLIA [id number] [place] [address] [place] Erythrocyte distribution width (RBC) [Ratio] 11.4 % Low 11.5-15.0 [facility] Comment on above: Order Comment: Speci men Type: BLOOD SPECIMENOrdering Facility: [facility] Address: [address] [place] [address] Performed By: #### 4 537-7, 00625-3 ####[facility] LABIA [id number] [place] [address] [place] Hematocrit (Bld) [Volume fraction] 43.6 % Normal 39.0-51.0 [facility] Comment on above: Order Comment: Speci men Type: BLOOD SPECIMENOrdering Facility: [facility] Address: [address] [place] [address] Performed By: #### 4 537-7, 17283-1 ####[facility] LABIA [id number] [place] [address] [place] Hemoglobin (Bld) [Mass/Vol] 15.6 g/dL Normal 13.0-17.0 [facility] Comment on above: Order Comment: Speci men Type: BLOOD SPECIMENOrdering Facility: [facility] Address: [address] [place] [address] Performed By: #### 4 537-7, 69408-2 ####[facility] LABIA [id number] [place] [address] [place] Immature granulocytes (Bld) [#/Vol] 10*3/uL Normal <0.10 [facility] Comment on above: Order Comment: Speci men Type: BLOOD SPECIMENOrdering Facility: [facility] Address: [address] [place] [address] Performed By: #### 4 537-7, 89908-4 ####[facility] LABCLIA [id number] [place] [address] [place] Immature granulocytes/100 WBC (Bld) 0.1 % Normal [facility] Comment on above: Order Comment: Speci men Type: BLOOD SPECIMENOrdering Facility: [facility] Address: [address] [place] [address] Performed By: #### 4 537-7, 96058-0 ####[facility] LABCLIA [id number] [place] [address] [place] Lymphocytes (Bld) [#/Vol] 1.12 10*3/uL Normal 1.00-4.00 [facility] Comment on above: Order Comment: Speci men Type: BLOOD SPECIMENOrdering Facility: [facility] Address: [address] [place] [address] Performed By: #### 4 537-7, 04017-8 ####[facility] LABIA [id number] [place] [address] [place] Lymphocytes/100 WBC (Bld) 16.8 % Normal [facility] Comment on above: Order Comment: Speci men Type: BLOOD SPECIMENOrdering Facility: [facility] Address: [address] [place] [address] Performed By: #### 4 537-7, 61625-8 ####[facility] LABCLIA [id number] [place] [address] [place] MCH (RBC) [Entitic mass] 34.0 pg Normal 26.0-34.0 [facility] Comment on above: Order Comment: Speci men Type: BLOOD SPECIMENOrdering Facility: [facility] Address: [address] [place] [address] Performed By: #### 4 537-7, 26603-2 ####[facility] LABCLIA [id number] [place] [address] [place] MCHC (RBC) [Mass/Vol] 35.8 g/dL Normal 30.5-36.0 [facility] Comment on above: Order Comment: Speci men Type: BLOOD SPECIMENOrdering Facility: [facility] Address: [address] [place] [address] Performed By: #### 4 537-7, 62582-4 ####[facility] LABIA [id number] [place] [address] [place] MCV (RBC) [Entitic vol] 95.0 fL Normal 80.0-100.0 [facility] Comment on above: Order Comment: Speci men Type: BLOOD SPECIMENOrdering Facility: [facility] Address: [address] [place] [address] Performed By: #### 4 537-7, 00304-9 ####[facility] LABIA [id number] [place] [address] [place] Monocytes (Bld) [#/Vol] 0.44 10*3/uL Normal <0.87 [facility] Comment on above: Order Comment: Speci men Type: BLOOD SPECIMENOrdering Facility: [facility] Address: [address] [place] [address] Performed By: #### 4 537-7, 70080-3 ####[facility] LABIA [id number] [place] [address] [place] Monocytes/100 WBC (Bld) 6.6 % Normal [facility] Comment on above: Order Comment: Speci men Type: BLOOD SPECIMENOrdering Facility: [facility] Address: [address] [place] [address] Performed By: #### 4 537-7, 64354-7 ####[facility] LABCLIA [id number] [place] [address] [place] Neutrophils (Bld) [#/Vol] 5.01 10*3/uL Normal 1.45-7.50 [facility] Comment on above: Order Comment: Speci men Type: BLOOD SPECIMENOrdering Facility: [facility] Address: [address] [place] [address] Performed By: #### 4 537-7, 89983-0 ####[facility] LABCLIA [id number] [place] [address] [place] Neutrophils/100 WBC (Bld) 75.2 % Normal [facility] Comment on above: Order Comment: Speci men Type: BLOOD SPECIMENOrdering Facility: [facility] Address: [address] [place] [address] Performed By: #### 4 537-7, 81210-0 ####[facility] LABCLIA [id number] [place] [address] [place] Nucleated RBC (Bld) [#/Vol] 10*3/uL Normal <0.01 [facility] Comment on above: Order Comment: Speci men Type: BLOOD SPECIMENOrdering Facility: [facility] Address: [address] [place] [address] Performed By: #### 4 537-7, 97293-7 ####[facility] LABCLIA [id number] [place] [address] [place] Nucleated RBC/100 WBC (Bld) [Ratio] 0.0 /100 WBC Normal [facility] Comment on above: Order Comment: Speci men Type: BLOOD SPECIMENOrdering Facility: [facility] Address: [address] [place] [address] Performed By: #### 4 537-7, 90891-6 ####[facility] LABCLIA [id number] [place] [address] [place] Platelet mean volume (Bld) [Entitic vol] 10.3 fL Normal 9.0-12.7 [facility] Comment on above: Order Comment: Speci men Type: BLOOD SPECIMENOrdering Facility: [facility] Address: [address] [place] [address] Performed By: #### 4 537-7, 59173-7 ####[facility] LABIA [id number] [place] [address] [place] Platelets (Bld) [#/Vol] 136 10*3/uL Low 150-400 [facility] Comment on above: Order Comment: Speci men Type: BLOOD SPECIMENOrdering Facility: [facility] Address: [address] [place] [address] Performed By: #### 4 537-7, 53274-1 ####[facility] LABIA [id number] [place] [address] [place] RBC (Bld) [#/Vol] 4.59 10*6/uL Normal 4.20-6.00 [facility] Comment on above: Order Comment: Speci men Type: BLOOD SPECIMENOrdering Facility: [facility] Address: [address] [place] [address] Performed By: #### 4 537-7, 05053-9 ####[facility] [id number] [place] [address] [place] WBC (Bld) [#/Vol] 6.67 10*3/uL Normal 3.70-11.00 [facility] Comment on above: Order Comment: Speci men Type: BLOOD SPECIMENOrdering Facility: [facility] Address: [address] [place] [address] Performed By: #### 4 537-7, 04869-2 ####[facility]ENTERIA [id number] [place] [address] [place] CNOVon 08-11-2024 CNOV Office Visit (FAMPWS ) BETHANY MONTALVO ([id number]) 1965 M Date Time Provider Department 08/11/24 1:00 PM KEREN KWON During your visit today, we recorded the following information about you: Temperature Pulse Respiration Blood pressure 99.9 degrees 120/minute 16/minute 162/86 Keren Kwon APRN.GORE STITCHER 08/11/2024 2:07 PM Signed This is a [...] of obvious fracture or dislocations. Refers that "severe" leg pain. Cannot get the leg comfortable. [...] Age of Onset Psychiatry Mother Heart Mother [place] 53 Heart Father [place] 51 Colon Cancer Father Social History Tobacco [...] color, te (more content not included)... Normal [facility] CRP SerPl-mCncon 08-11-2024 CRP [Mass/Vol] 0.5 mg/dL Normal <0.9 [facility] Comment on above: Order Comment: Speci men Type: BLOOD SPECIMENOrdering Facility: [facility] Address: [address] [place] [address] Performed By: #### 1 988-5, 3084-1, 41303-9, 31434-3 ####[facility] LABIA [id number] [place] [address] [place] ESR Westergren method (Bld) [Velocity]on 08-11-2024 ESR (Bld) [Velocity] 9 mm/h Normal 0-15 [facility] Comment on above: Order Comment: Speci men Type: BLOOD SPECIMENOrdering Facility: [facility] Address: [address] [place] [address] Performed By: #### 4 537-7, 39631-8 ####[facility] LABIA [id number] [place] [address] [place] Free PSA [Mass/Vol]on 2024 Free PSA/Total PSA [Mass fraction] 10 % Normal [facility] Comment on above: Order Comment: Speci men Type: BLOOD SPECIMENOrdering Facility: [facility] Address: [address] [place] [address] Result Comment: Tota l and free PSA [...] 15.8% Performed By: #### 1 988-5, 3084-1, 69189-0, 12475-5 ####[facility] LABCLIA [id number] [place] [address] [place] Prostate specific Ag [Mass/Vol] 4.05 ng/mL High <2.60 [facility] Comment on above: Order Comment: Speci men Type: BLOOD SPECIMENOrdering Facility: [facility] Address: [address] [place] [address] Result Comment: Tota l PSA test methodology [...] Benavidez M.D., Ph.D., Mikhail Lopez M.D., Lindsay Aguilar M.PMichelle., Marcelle Garcia Sc.D. Effect of Verification Bias on Screening for Prostate Cancer by Measurement of Prostatic Specific Antigen. N Engl J Med 2003,349:335-42. Performed By: #### 1 988-5, 3084-1, 70855-5, 31175-1 ####[facility] LABIA [id number] [place] [address] [place] Osmolality Uron 08-11-2024 Osmolality (U) [Osmolality] 163 mosm/kg Normal 50-1200 [facility] Comment on above: Order Comment: Speci men Type: URINE SPECIMENOrdering Facility: [facility] Address: [address] [place] [address] Performed By: #### 2 695-5 ####[facility] [id number] [place] [address] [place] Sodium ?Tm Ur-sCncon 025 Sodium Unsp time (U) [Moles/Vol] 30 mmol/L Normal 14-216 [facility] Comment on above: Order Comment: Speci men Type: URINE SPECIMENOrdering Facility: [facility] Address: [address] [place] [address] Performed By: #### 3 5678-2 ####[facility] [id number] [place] [address] [place] Urate SerPl-mCncon 5 Urate [Mass/Vol] 9.9 mg/dL High 4.0-8.1 [facility] Comment on above: Order Comment: Speci men Type: BLOOD SPECIMENOrdering Facility: [facility] Address: [address] [place] [address] Performed By: #### 1 988-5, 3084-1, 84413-0, 05525-3 ####[facility] LABIA [id number] [address] [place] [address] [place] XR KNEE 4V [...] imaging/MRI can be performed for further evaluation [employer] Supervisor: JOHN Transcribe Date/Time: Aug 13 2024 4:59P Dictated by : MIN GUTIERREZ MD This examination was interpreted and the report reviewed and electronically signed by: MIN GUTIERREZ MD on Aug 13 2024 5:02PM EST [id number] Normal [facility] BETH[facility] MONTALVO ([id number]) 1965 M Date Time Provider Department 08/07/24 KEREN KWON During your visit today, we recorded the following information about you: Keren Kwon APRN.GORE STITCHER 08/07/2024 3:34 PM Signed Can please let [...] Date Reviewed: 07/13/2024 Reviewed by: Rosa Wade APRN.GORE STITCHER - Fully Assessed Reason for Visit: Results [95] Primary Visit Diagnosis:Hyponatremia [E87.1] Other Visit Diagnoses:Elevated alkaline phosphatase level [R74.8] Elevated PSA [R97.20] Elevated hemoglobin (HCC) [D58.2] Order(s):BASIC METABOLIC PANEL [SQBMP] Order #: [id number] FUTURE SODIUM RANDOM URINE [SQUNAR] Order #: [id number] FUTURE OSMOLALITY URINE [SQUOSM] Order #: [id number] FUTURE ALK PHOS ISOENZYM BL [SQALKISO] Order #: [id number] FUTURE PROSTATE SPECIFIC ANTIGEN, FREE [SQPSATF] Order #: [id number] FUTURE COMPLETE BLOOD COUNT AND DIFFERENTIAL [SQCBCDIF] Order #: [id number] FUTURE Prescriptions as of 08/07/2024 - busPIRone [...] Status:Closed by DONNA RICHEY on 08/07/24 Normal [facility] CBC W Auto Differential pane l (Bld)on 08-05-2024 Basophils (Bld) [#/Vol] 0.04 10*3/uL Normal <0.11 [facility] Comment on above: Order Comment: Speci men Type: BLOOD SPECIMENOrdering Facility: [facility] Address: [address] [place] [address] Performed By: #### 5 7021-8 ####[facility] SUSANWNCLIA [id number] [place] [address] [place] Basophils/100 WBC (Bld) 0.4 % Normal [facility] Comment on above: Order Comment: Speci men Type: BLOOD SPECIMENOrdering Facility: [facility] Address: [address] [place] [address] Performed By: #### 5 7021-8 ####[facility] MARY CARMENPETERSBURGNCLIA [id number] [place] [address] [place] Differential cell count method Nom (Bld) Auto Normal [facility] Comment on above: Order Comment: Speci men Type: BLOOD SPECIMENOrdering Facility: [facility] Address: [address] [place] [address] Performed By: #### 5 7021-8 ####[facility] MARY CARMENWNCLIA [id number] [place] [address] [place] Eosinophils (Bld) [#/Vol] 0.09 10*3/uL Normal <0.46 [facility] Comment on above: Order Comment: Speci men Type: BLOOD SPECIMENOrdering Facility: [facility] Address: [address] [place] [address] Performed By: #### 5 7021-8 ####[facility] MILLTOWNCLIA [id number] [place] [address] [place] Eosinophils/100 WBC (Bld) 0.9 % Normal [facility] Comment on above: Order Comment: Speci men Type: BLOOD SPECIMENOrdering Facility: [facility] Address: [address] [place] [address] Performed By: #### 5 7021-8 ####[facility] MILLWNCLIA [id number] [place] [address] [place] Erythrocyte distribution width (RBC) [Ratio] 11.7 % Normal 11.5-15.0 [facility] Comment on above: Order Comment: Speci men Type: BLOOD SPECIMENOrdering Facility: [facility] Address: [address] [place] [address] Performed By: #### 5 7021-8 ####[facility] [id number] [place] [address] [place] Hematocrit (Bld) [Volume fraction] 49.8 % Normal 39.0-51.0 [facility] Comment on above: Order Comment: Speci men Type: BLOOD SPECIMENOrdering Facility: [facility] Address: [address] [place] [address] Performed By: #### 5 7021-8 ####[facility] [id number] [place] [address] [place] Hemoglobin (Bld) [Mass/Vol] 18.0 g/dL High 13.0-17.0 [facility] Comment on above: Order Comment: Speci men Type: BLOOD SPECIMENOrdering Facility: [facility] Address: [address] [place] [address] Performed By: #### 5 7021-8 ####[facility] [id number] [place] [address] [place] Immature granulocytes (Bld) [#/Vol] 0.08 10*3/uL Normal <0.10 [facility] Comment on above: Order Comment: Speci men Type: BLOOD SPECIMENOrdering Facility: [facility] Address: [address] [place] [address] Performed By: #### 5 7021-8 ####[facility] [id number] [place] [address] [place] Immature granulocytes/100 WBC (Bld) 0.8 % Normal [facility] Comment on above: Order Comment: Speci men Type: BLOOD SPECIMENOrdering Facility: [facility] Address: [address] [place] [address] Performed By: #### 5 7021-8 ####[facility] [id number] [place] [address] [place] Lymphocytes (Bld) [#/Vol] 1.71 10*3/uL Normal 1.00-4.00 [facility] Comment on above: Order Comment: Speci men Type: BLOOD SPECIMENOrdering Facility: [facility] Address: [address] [place] [address] Performed By: #### 5 7021-8 ####[facility] [id number] [place] [address] [place] Lymphocytes/100 WBC (Bld) 17.6 % Normal [facility] Comment on above: Order Comment: Speci men Type: BLOOD SPECIMENOrdering Facility: [facility] Address: [address] [place] [address] Performed By: #### 5 7021-8 ####[facility] [id number] [place] [address] [place] MCH (RBC) [Entitic mass] 33.6 pg Normal 26.0-34.0 [facility] Comment on above: Order Comment: Speci men Type: BLOOD SPECIMENOrdering Facility: [facility] Address: [address] [place] [address] Performed By: #### 5 7021-8 ####[facility] [id number] [place] [address] [place] MCHC (RBC) [Mass/Vol] 36.1 g/dL High 30.5-36.0 [facility] Comment on above: Order Comment: Speci men Type: BLOOD SPECIMENOrdering Facility: [facility] Address: [address] [place] [address] Performed By: #### 5 7021-8 ####[facility] MARY CARMENPETERSBURGJOSE [id number] [place] [address] [place] MCV (RBC) [Entitic vol] 93.1 fL Normal 80.0-100.0 [facility] Comment on above: Order Comment: Speci men Type: BLOOD SPECIMENOrdering Facility: [facility] Address: [address] [place] [address] Performed By: #### 5 7021-8 ####[facility] [id number] [place] [address] [place] Monocytes (Bld) [#/Vol] 0.58 10*3/uL Normal <0.87 [facility] Comment on above: Order Comment: Speci men Type: BLOOD SPECIMENOrdering Facility: [facility] Address: [address] [place] [address] Performed By: #### 5 7021-8 ####[facility] [id number] [place] [address] [place] Monocytes/100 WBC (Bld) 6.0 % Normal [facility] Comment on above: Order Comment: Speci men Type: BLOOD SPECIMENOrdering Facility: [facility] Address: [address] [place] [address] Performed By: #### 5 7021-8 ####[facility] [id number] [place] [address] [place] Neutrophils (Bld) [#/Vol] 7.19 10*3/uL Normal 1.45-7.50 [facility] Comment on above: Order Comment: Speci men Type: BLOOD SPECIMENOrdering Facility: [facility] Address: [address] [place] [address] Performed By: #### 5 7021-8 ####[facility] [id number] [place] [address] [place] Neutrophils/100 WBC (Bld) 74.3 % Normal [facility] Comment on above: Order Comment: Speci men Type: BLOOD SPECIMENOrdering Facility: [facility] Address: [address] [place] [address] Performed By: #### 5 7021-8 ####[facility] [id number] [place] [address] [place] Nucleated RBC (Bld) [#/Vol] 10*3/uL Normal <0.01 [facility] Comment on above: Order Comment: Speci men Type: BLOOD SPECIMENOrdering Facility: [facility] Address: [address] [place] [address] Performed By: #### 5 7021-8 ####[facility] [id number] [place] [address] [place] Nucleated RBC/100 WBC (Bld) [Ratio] 0.0 /100 WBC Normal [facility] Comment on above: Order Comment: Speci men Type: BLOOD SPECIMENOrdering Facility: [facility] Address: [address] [place] [address] Performed By: #### 5 7021-8 ####[facility] [id number] [place] [address] [place] Platelet mean volume (Bld) [Entitic vol] 9.5 fL Normal 9.0-12.7 [facility] Comment on above: Order Comment: Speci men Type: BLOOD SPECIMENOrdering Facility: [facility] Address: [address] [place] [address] Performed By: #### 5 7021-8 ####[facility] [id number] [place] [address] [place] Platelets (Bld) [#/Vol] 184 10*3/uL Normal 150-400 [facility] Comment on above: Order Comment: Speci men Type: BLOOD SPECIMENOrdering Facility: [facility] Address: [address] [place] [address] Performed By: #### 5 7021-8 ####[facility]ENTERWNCLIA [id number] [place] [address] [place] RBC (Bld) [#/Vol] 5.35 10*6/uL Normal 4.20-6.00 [facility] Comment on above: Order Comment: Speci men Type: BLOOD SPECIMENOrdering Facility: [facility] Address: [address] [place] [address] Performed By: #### 5 7021-8 ####[facility] [id number] [place] [address] [place] WBC (Bld) [#/Vol] 9.69 10*3/uL Normal 3.70-11.00 [facility] Comment on above: Order Comment: Speci men Type: BLOOD SPECIMENOrdering Facility: [facility] Address: [address] [place] [address] Performed By: #### 5 7021-8 ####[facility] [id number] [place] [address] [place] Comprehensive metabolic 2000 panelon 08-05-2024 Albumin [Mass/Vol] 4.7 g/dL Normal 3.9-4.9 [facility] Comment on above: Order Comment: Speci men Type: BLOOD SPECIMENOrdering Facility: [facility] Address: [address] [place] [address] Performed By: #### 1 9123-9, 10159-5 ####[facility] [id number] [place] [address] [place] ALP [Catalytic activity/Vol] 169 U/L High 38-113 [facility] Comment on above: Order Comment: Speci men Type: BLOOD SPECIMENOrdering Facility: [facility] Address: [address] [place] [address] Performed By: #### 1 9123-9, 65295-1 ####[facility] MARY CARMENTOWNCLIA [id number] [place] [address] [place] ALT [Catalytic activity/Vol] 42 U/L Normal 10-54 [facility] Comment on above: Order Comment: Speci men Type: BLOOD SPECIMENOrdering Facility: [facility] Address: [address] [place] [address] Performed By: #### 1 9123-9, 53855-5 ####[facility]CL[facility] [id number] [place] [address] [place] Anion gap [Moles/Vol] 11 mmol/L Normal 8-15 [facility] Comment on above: Order Comment: Speci men Type: BLOOD SPECIMENOrdering Facility: [facility] Address: [address] [place] [address] Performed By: #### 1 9123-9, 31988-8 ####[facility] [id number] [place] [address] [place] AST [Catalytic activity/Vol] 70 U/L High 14-40 [facility] Comment on above: Order Comment: Speci men Type: BLOOD SPECIMENOrdering Facility: [facility] Address: [address] [place] [address] Performed By: #### 1 9123-9, 13745-4 ####[facility] [id number] [place] [address] [place] Bilirubin [Mass/Vol] 0.7 mg/dL Normal 0.2-1.3 [facility] Comment on above: Order Comment: Speci men Type: BLOOD SPECIMENOrdering Facility: [facility] Address: [address] [place] [address] Performed By: #### 1 9123-9, 22112-6 ####[facility] CHEVYA [id number] [place] [address] [place] Calcium [Mass/Vol] 10.3 mg/dL High 8.5-10.2 [facility] Comment on above: Order Comment: Speci men Type: BLOOD SPECIMENOrdering Facility: [facility] Address: [address] [place] [address] Performed By: #### 1 9123-9, 51907-4 ####[facility] [id number] [place] [address] [place] Chloride [Moles/Vol] 94 mmol/L Low 98-107 [facility] Comment on above: Order Comment: Speci men Type: BLOOD SPECIMENOrdering Facility: [facility] Address: [address] [place] [address] Performed By: #### 1 9123-9, 90323-8 ####[facility] [id number] [place] [address] [place] CO2 [Moles/Vol] 27 mmol/L Normal 22-30 [facility] Comment on above: Order Comment: Speci men Type: BLOOD SPECIMENOrdering Facility: [facility] Address: [address] [place] [address] Performed By: #### 1 9123-9, 36641-2 ####[facility]CL[facility] [id number] [place] [address] [place] Creatinine [Mass/Vol] 1.26 mg/dL High 0.73-1.22 [facility] Comment on above: Order Comment: Speci men Type: BLOOD SPECIMENOrdering Facility: [facility] Address: [address] [place] [address] Performed By: #### 1 9123-9, 52246-4 ####[facility]ENTERWNCLIA [id number] [place] [address] [place] Creatinine and Glomerular filtration rate.predicted panel (S/P/Bld) 67 mL/min/1.73m??? Normal >=60 [facility] Comment on above: Order Comment: Chirag jeffrey Type: BLOOD SPECIMENOrdering Facility: [facility] Address: [address] [place] [address] Result Comment: Misty mated Glomerular Filtration Rate [...] reflect actual GFR. Performed By: #### 1 9123-9, 45903-3 ####[facility]CL[facility] [id number] [place] [address] [place] Glucose [Mass/Vol] 112 mg/dL High 74-99 [facility] Comment on above: Order Comment: Chirag jeffrey Type: BLOOD SPECIMENOrdering Facility: [facility] Address: [address] [place] [address] Result Comment: The [place] Diabetes Association (ADA) provides guidance for cutoff [...] Standards of Medical Care in Diabetes 2016, [place] [employer]. Diabetes Care. 2016.39(Suppl 1). Performed By: #### 1 9123-9, 01972-6 ####[facility] [id number] [place] [address] [place] Potassium [Moles/Vol] 4.8 mmol/L Normal 3.7-5.1 [facility] Comment on above: Order Comment: Speci men Type: BLOOD SPECIMENOrdering Facility: [facility] Address: [address] [place] [address] Performed By: #### 1 9123-9, ####[facility] MILLWNCLIA [id number] [place] [address] [place] Protein [Mass/Vol] 8.0 g/dL Normal 6.3-8.0 [facility] Comment on above: Order Comment: Speci men Type: BLOOD SPECIMENOrdering Facility: [facility] Address: [address] [place] [address] Performed By: #### 1 9123-9, ####[facility] COASTKASSANDRALIA [id number] [place] [address] [place] Sodium [Moles/Vol] 132 mmol/L Low 136-144 [facility] Comment on above: Order Comment: Speci men Type: BLOOD SPECIMENOrdering Facility: [facility] Address: [address] [place] [address] Performed By: #### 1 9123-9, 80821-1 ####[facility]ENTERWKASSANDRALIA [id number] [place] [address] [place] Urea nitrogen [Mass/Vol] 11 mg/dL Normal 9-24 [facility] Comment on above: Order Comment: Speci men Type: BLOOD SPECIMENOrdering Facility: [facility] Address: [address] [place] [address] Performed By: #### 1 9123-9, ####[facility]CL[facility] [id number] [place] [address] [place] Folate SerPl-mCncon 08-05-19 25 Folate [Mass/Vol] ng/mL Normal >4.7 [facility] Comment on above: Order Comment: Speci men Type: BLOOD SPECIMENOrdering Facility: [facility] Address: [address] [place] [address] Result Comment: A re sult of > 20 ng/mL is not necessarily indicative of a pathologic or treatable condition: it reflects a limitation of the test methodology. Assay reference range: 4.8 to 24.2 ng/mL. Suitable for detection of folate deficiency. Reference: Folate III (Folate III) [package insert V 1.0 Faroese]. [facility], [place], [place]: May 2015. Performed By: #### 2 132-9, 4-8 ####[facility] LABCLIA [id number] [address] [place]#### [address]-3 ####[facility] [id number] [address] [id number] [place] [address] [place] Lipid 1996 panelon 5 Cholesterol [Mass/Vol] 218 mg/dL High <200 [facility] Comment on above: Order Comment: Speci men Type: BLOOD SPECIMENOrdering Facility: [facility] Address: [address] [place] [address] Result Comment: <200 mg/dL, Desirable 200-239 mg/dL, Borderline high >239 mg/dL, High Performed By: #### 2 132-9, 2284-8 ####[facility] [id number] [place] [address] [place]#### 19850-4 ####[facility] LABCLIA [id number] [address] [id number] [place] [address] [place] Cholesterol in HDL [Mass/Vol] 29 mg/dL Low >39 [facility] Comment on above: Order Comment: Speci men Type: BLOOD SPECIMENOrdering Facility: [facility] Address: [address] [place] [address] Result Comment: 40-5 9 mg/dL, Acceptable >59 mg/dL, High: Negative risk factor for coronary heart disease <40 mg/dL, Low: Positive risk factor for coronary heart disease Performed By: #### 2 132-9, 2283-8 ####[facility] LABCLIA [id number] [place] [address] [place]#### 72482-9 ####[facility] LABCLIA [id number] [place] [address] [place] [facility] [id number] [place] [address] [place] Cholesterol in LDL [Mass/Vol] 124 mg/dL High <100 [facility] Comment on above: Order Comment: Speci men Type: BLOOD SPECIMENOrdering Facility: [facility] Address: [address] [place] [address] Result Comment: <100 mg/dL, Optimal 100-129 mg/dL, Near optimal/above optimal 130-159 mg/dL, Borderline high 160-189 mg/dL, High >189 mg/dL, Very high Secondary prevention optimal LDL Cholesterol levels are recommended to be < 70 mg/dL Performed By: #### 2 132-9, 2284-02 ####[facility] LABCLIA [id number] [place] [address] [place]#### 36624-6 ####[facility] LABCLIA [id number] [place] [address] [place] [facility] [id number] [place] [address] [place] Cholesterol in LDL/Cholesterol in HDL [Mass ratio] 4.28 {ratio} High <2.54 [facility] Comment on above: Order Comment: Speci men Type: BLOOD SPECIMENOrdering Facility: [facility] Address: [address] [place] [address] Result Comment: Alexei clifford: 1. National Cholesterol Education Program ATP III Guideline At-A-Glance Quick Desk Reference: National Heart, Lung, and Blood [place]. National Institutes of Health. 2001: NIH Publication No. 01-3305. 2. An International Atherosclerosis Society position paper: global recommendations for the management of dyslipidemia: executive summary, Atherosclerosis. 2014: 232(2):410-413. Performed By: #### 2 132-9, 2284-02 ####[facility] LABCLIA [id number] [place] [address] [place]#### 87744-5 ####[facility] LABCLIA [id number] [address] STATES [facility] [id number] [place] [address] [place] Cholesterol in VLDL [Mass/Vol] 65 mg/dL High <30 [facility] Comment on above: Order Comment: Speci men Type: BLOOD SPECIMENOrdering Facility: [facility] Address: [address] [place] [address] Performed By: #### 2 132-9, 2284-02 ####[facility] LABCLIA [id number] [place] [address] [place]#### 64275-3 ####[facility] LABCLIA [id number] [address] STATES OF [facility] [id number] [place] [address] [place] Cholesterol non HDL [Mass/Vol] 189 mg/dL High <130 [facility] Comment on above: Order Comment: Speci men Type: BLOOD SPECIMENOrdering Facility: [facility] Address: [address] [place] [address] Result Comment: <130 mg/dL, Optimal 130-159 mg/dL, Near optimal/above optimal 160-189 mg/dL, Borderline high 190-219 mg/dL, High >219 mg/dL, Very high Secondary prevention optimal non HDL Cholesterol levels are recommended to be <100 mg/dL Performed By: #### 2 132-9, 8 ####[facility] LABCLIA [id number] [place] [address] [place]#### 92857-3 ####[facility] LABCLIA [id number] [address] STATES [facility] [id number] [place] [address] [place] Cholesterol.total/Cho lesterol in HDL [Mass ratio] 7.52 {ratio} High <5.10 [facility] Comment on above: Order Comment: Speci men Type: BLOOD SPECIMENOrdering Facility: [facility] Address: [address] [place] [address] Performed By: #### 2 132-9, 2284-02 ####[facility] LABCLIA [id number] [place] [address] [place]#### 95813-3 ####[facility] LABCLIA [id number] [id number] [place] [address] [place] FASTING TIME 12 hrs Normal [facility] Comment on above: Order Comment: Speci men Type: BLOOD SPECIMENOrdering Facility: [facility] Address: [address] [place] [address] Performed By: #### 2 132-9, 2284-8 ####[facility] LABCLIA [id number] [address] [address] [place]#### 03855-6 ####[facility] LABCLIA [id number] [address] [address] [place] [facility] [id number] [place] [address] [place] Triglyceride [Mass/Vol] 324 mg/dL High <150 [facility] Comment on above: Order Comment: Speci men Type: BLOOD SPECIMENOrdering Facility: [facility] Address: [address] [place] [address] Result Comment: <150 mg/dL, Normal 150-199 mg/dL, Borderline high 200-499 mg/dL, High >499 mg/dL, Very high Performed By: #### 2 132-9, 2284-02 ####[facility] LABCLIA [id number] [place] [id number] [place]#### 51191-0 ####[facility] LABCLIA [id number] [place] [id number] [place] [facility] [id number] [place] [address] [place] Magnesium SerPl-mCncon 08-05 Magnesium [Mass/Vol] 1.8 mg/dL Normal 1.7-2.3 [facility] Comment on above: Order Comment: Speci men Type: BLOOD SPECIMENOrdering Facility: [facility] Address: [address] [place] [address] Performed By: #### 1 9123-9, 82092-6 ####[facility] [id number] [place] [address] [place] PSA/PROSTATE SPECIFIC ANTIGE N SCREENINGon 08-05-2024 Prostate specific Ag [Mass/Vol] 4.82 ng/mL High <2.60 [facility] Comment on above: Order Comment: Speci men Type: BLOOD SPECIMENOrdering Facility: [facility] Address: [address] [place] [address] Result Comment: Guera delarosa PSA test methodology [...] these factors. REFERENCE: Darryn Bertrand M.D., M.P.H., Valetnino Benavidez M.D., Ph.D., Mikhail Lopez M.D., Lindsay Aguilar, M.P.H., Marcelle Garcia, Sc.D. Effect of Verification Bias on Screening for Prostate Cancer by Measurement of Prostatic Specific Antigen. N Engl J Med 2003,349:335-42. Performed By: #### P SAS1 ####[facility] LABCLIA [id number] [place] [address] [place] US CAROTID ARTERIES [facility] LABon 08-05-2024 US CAROTID ARTERIES [facility] Non-Invasive Vascular Laboratory [facility] Carotid Duplex Bilateral/Complete Date of service/time: 08/05/2024 [...] interpretation criteria are used as recommended by Intersocietal Accreditation Commission. When compared with the prior [...] noted. Subclavian artery: Patent. Technologist: Lizzie Stephenson RVT, RDMS Ordering physician: KEREN KWON Interpreting physician: NEFTALI Luna DO Final CC [employer] Medical Image : [id number] goDynamicsSISUID See Link below for Image Normal [facility] Vit B12 [facility] High[facility]sl-ncon 025 Cobalamin (Vitamin B12) [Mass/Vol] 366 pg/mL Normal 232-1245 [facility] Comment on above: Order Comment: Speci men Type: BLOOD SPECIMENOrdering Facility: [facility] Address: [address] [place] [address] Performed By: #### 2 132-9, 2284-8 ####[facility] LABCLIA [id number] [place] [address] [place]#### 80828-5 ####[facility] LABCLIA [id number] [place] [address] [place] [facility] [id number] [place] [address] [place] Ankle min 3 Viewson 07-23-19 25 Ankle min 3 Views [facility] Imaging Services [address] [place] [address] Ankle min 3 Views MR#: [id number] Acct: [id number] Name: BETHANY MONTALVO Rep #: [id number] : 1965 M 58 From: Sherwin wells MD PCP: XUAN Armendariz Status: PRE ER Study: Ankle min 3 Views Date of Exam: 07/23/24 Exam# [id number] Ordering Dr: Provider,Ed P. [id number] STUDY: X-RAY - LEFT ANKLE REASON FOR [...] 13:27 EST Reading Location ID and State: [facility] / [place] , Service support , CC: XUAN Kwon; ED PHYSICIAN PROVIDER [employer] Supervisor: Signed Normal [facility] 3 [facility] [address] [place] [address] [phone] Ankle min 3 Views MR#: [id number] Acct: [id number] Name: BETHANY MONTALVO Rep #: [id number] : 1965 M 58 From: Sherwin wells MD PCP: XUAN Armendraiz Status: PRE ER Study: Ankle min 3 Views Date of Exam: 07/23/24 Exam# [id number] Ordering Dr: Junaid Ortega [id number] STUDY: X-RAY - RIGHT ANKLE REASON FOR [...] 13:19 EST Reading Location ID and State: [address] [place] [address] , Service support , CC: XUAN Kwon; ED PHYSICIAN PROVIDER [employer] Supervisor: Signed Normal [facility] Emergency Department Summary on 07-23-2024 Emergency Department Summary [facility] Medical Records Department [address] [place] [address] Emergency Department Summary 07/23/24 MR#: [id number] Acct: [id number] Name: BETHANY MONTALVO Rep #: [id number] : 1965 58 From: Nik Campbell DO PCP: XUAN Armendariz Status:DEP ER Location: ED HPI History of Present Illness Chief Complaint: Lower Extremity Injury PFSH PFSH Medical History Personal history of colon polyps, [...] Suicidal ideation Atherosclerosis of coronary artery of [place] heart without angina pectoris Depression NSTEMI (non-ST [...] apartment current occupational status: employed current occupation: [employer] Smoking Status: Former smoker alcohol intake: current [...] EXAM: Nursing (more content not included)... Normal [facility] Foot min 3 Viewson 5 Foot min [address] [facility] Imaging Services [address] [place] [address] [phone] Foot min 3 Views MR#: [id number] Acct: [id number] Name: BETHANY MONTALVO Rep #: [id number] : 1965 M 58 From: Sherwin wells MD PCP: XUAN Armendariz Status: PRE ER Study: Foot min 3 Views Date of Exam: 07/23/24 Exam# [id number] Ordering Dr: Junaid Ortega [id number] STUDY: X-RAY - LEFT FOOT CLINICAL: Male, [...] 13:19 EST Reading Location ID and State: [facility] / [place] , Service support , CC: XUAN Kwon; ED PHYSICIAN PROVIDER [employer] Supervisor: Signed Normal [facility] Foot min 3 Views [facility] Imaging Services [address] [place] [address] [phone] Foot min 3 Views MR#: [id number] Acct: [id number] Name: BETHANY MONTALVO Rep #: [id number] : 1965 M 58 From: Sherwin wells MD PCP: XUAN Armendariz Status: PRE ER Study: Foot min 3 Views Date of Exam: 07/23/24 Exam# [id number] Ordering Dr: Junaid Ortega [id number] STUDY: X-RAY - RIGHT FOOT CLINICAL: Male, [...] 13:27 EST Reading Location ID and State: [address] [place] [address] , Service support , CC: XUAN Kwon; ED PHYSICIAN PROVIDER [employer] Supervisor: Signed Normal [facility] Tibia Fibula 2 Viewson 07-23 Tibia Fibula 2 Views [facility] Imaging Services [address] [place], [place] [address] Tibia Fibula 2 Views MR#: [id number] Acct: [id number] Name: BETHANY MONTALVO Rep #: [id number] : 1965 M 58 From: Sherwin wells MD PCP: XUAN Armendariz Status: PRE ER Study: Tibia Fibula 2 Views Date of Exam: 07/23/24 Exam# [id number] Ordering Dr: Provider,Ed P. [id number] STUDY: X-RAY - LEFT TIBIA AND FIBULA [...] 13:22 EST Reading Location ID and State: [address] [place] [address] , Service support , CC: XUAN Kwon; ED PHYSICIAN PROVIDER [employer] Supervisor: Signed Normal [facility] Tibia Fibula 2 Views [facility] Imaging Services [address] [place] [address] [phone] Tibia Fibula 2 Views MR#: [id number] Acct: [id number] Name: BETHANY MONTALVO Rep #: [id number] : 1965 M 58 From: Sherwin wells MD PCP: XUAN Armendariz Status: PRE ER Study: Tibia Fibula 2 Views Date of Exam: 07/23/24 Exam# [id number] Ordering Dr: JordanEd P. [id number] STUDY: X-RAY - RIGHT TIBIA AND FIBULA [...] 13:22 EST Reading Location ID and State: [facility] / [place] , Service support , CC: XUAN Kwon; ED PHYSICIAN PROVIDER [employer] Supervisor: Signed Normal [facility] Toe(s) Min 2 Viewson 025 Toe(s) Min [address] [facility] Imaging Services [address] [place], [place] [address] Toe(s) Min 2 Views MR#: [id number] Acct: [id number] Name: BETHANY MONTALVO Rep #: [id number] : 1965 M 58 From: Sherwin wells MD PCP: XUAN Armendariz Status: PRE ER Study: Toe(s) Min 2 Views Date of Exam: 07/23/24 Exam# [id number] Ordering Dr: Junaid Ortega P. [id number] STUDY: X-RAY RIGHT FOOT, GREAT TOE REASON [...] Signed: Sherwin Iyer MD at 13:28 EST , CC: XUAN Kwon; ED PHYSICIAN PROVIDER [employer] Supervisor: [facility]igned [facility] (UCTR ) BETHANY MONTALVO ([id number]) 1965 M Date Time Provider Department 07/13/24 2:30 PM ROSA WADE [facility] During your visit today, we recorded [...] seem more viral in origin and recommended eadn-axw-rtykcag cough and cold medication and follow-up with PCP. - XR CHEST 2V FRONTAL/LAT - COVID AND INFLUENZA A/B AND RSV PCR, ROUTINE Rosa Wade APRN.CNP Allergies As of Date: 07/13/2024 Noted Allergy Reaction SUDAFED (PSEUDOEPHEDRINE) 06/26/2016 14 - Other: See Comments Comments: Prostate infection Date Reviewed: 07/13/2024 Reviewed by: Rosa Wade APRN.CNP - Fully Assessed Reason for Visit: Sore Throat [200] Cmt: ST, bodyaches and nausea x 1 week Primary Visit Diagnosis:Acute cough [R05.1] Order(s):XR CHEST 2V FRONTAL/LAT [1045205] Order #: [id number] FUTURE COVID AND INFLUENZA A/B AND RSV PCR, ROUTINE [SQCVFLRS] Order #: [id number]. #:[id number] Prescriptions as of 07/13/2024 - atorvastatin (LIPITOR) [...] Status:Closed by ROSA WADE on 07/13/24 Normal [facility] COVID AND INFLUENZA A/B AND RSV PCR, ROUTINEon 07-13-2024 SARS-CoV-2 (COVID-19) RNA ABBY+probe Ql (Unsp spec) SARS-COV-2 (AGENT OF COVID-19) RNA: Not detected INFLUENZA A RNA: Not detected INFLUENZA B RNA: Not detected RESPIRATORY SYNCYTIAL VIRUS (RSV) RNA: Not detected Normal [facility] Comment on above: Performed By: #### C VFLRS ####[facility] LABCLIA [id number] [address] OF [place] XR CHEST 2V FRONTAL/LATon XR [...] tissues: Unremarkable. IMPRESSION: No acute radiographic abnormality. [employer] Supervisor: JOHN Transcribe Date/Time: Jul 13 2024 2:08P Dictated by : DIPESH STEELE MD This examination was interpreted and the report reviewed and electronically signed by: DIPESH STEELE MD on Jul 13 2024 2:08PM EST [id number] Normal [facility] XR Chest PA and Lateralon IMPRESSION: No acute radiographic abnormality. [employer] Supervisor: PSCB Transcribe Date/Time: Jul 13 2024 2:08P Dictated by : DIPESH STEELE MD This examination was interpreted and the report reviewed and electronically signed by: DIPESH STEELE MD on Jul 13 2024 2:08PM EST DIVISION OF RADIOLOGY * * *Final [...] soft tissues: Unremarkable. DIVISION OF RADIOLOGY [facility] * * *Final Report* * [...] Unremarkable. IMPRESSION IMPRESSION: No acute radiographic abnormality. [employer] Supervisor: JOHN Transcribe Date/Time: Jul 13 2024 2:08P Dictated by : DIPESH STEELE MD This examination was interpreted and the report reviewed and electronically signed by: DIPESH STEELE MD on Jul 13 2024 2:08PM [facility] Radiology Study observation (narrative) [facility] XR Chest PA and LateralOrder ed By: Ccf Provider on 07-13-2024 [facility] CNOVon 07-09-2024 CNOV Office Visit (UCWSTR ) BETHANY MONTALVO ([id number]) 1965 M Date Time Provider Department 07/09/24 5:00 PM DESMOND DUNCAN [facility] During your visit today, we recorded the following information about you: Temperature Pulse Respiration Blood pressure 98.4 degrees 98/minute 18/minute 128/78 Weight 97.2 kg Desmond Duncan APRN.GORE STITCHER 07/09/2024 6:04 PM Signed Subjective HPI Nontoxic-appearing male presents urgent care chief complaint sore throat body aches chills headache cough. Duration of symptoms few days. Associated symptoms listed above. Additionally has had right elbow injury for about 1 week. States he struck his elbow on a rail at work. Presents today for evaluation. Bmqku-jnud-sbeiuedr. Denies any other injuries. OTC medications none [...] Age of Onset Psychiatry Mother Heart Mother [place] 53 Heart Father [place] 51 Colon Cancer Father Social History Tobacco [...] pharyngeal swel (more content not included)... Normal [facility] 07-09-2024 [facility] Telephone (UCTR) BETHANY MONTALVO ([id number]) 1965 Date Time Provider Department 07/09/24 DESMOND DUNCAN [facility] During your visit today, we recorded the following information about you: Desmond Duncan APRN.CNP 07/09/2024 6:03 PM Signed Please inform patient that x-ray is normal. Follow-up with orthopedics if symptoms persist. Desmond Duncan APRN.Yoanna Jones OCCA 07/09/2024 6:26 PM Signed TC no answer. Unable to leave d/t mailbox not set up. Please try [...] Date Reviewed: 07/09/2024 Reviewed by: Desmond Duncan APRN.GORE STITCHER - Fully Assessed Reason for Visit: Results [...] Encounter Status:Closed by ARIELA AVELAR on 07/12/24 [facility] STREP A MOLECULAR (POC)on Procedural Control Valid [facility] Strep A (POCT) Negative Negative [facility] XR ELBOW 3V AP/LAT/OTHER RTo n 07-09-2024 [...] IMPRESSION: No acute osseous abnormalities are identified. [employer] Supervisor: [facility] Transcribe Date/Time: Jul 09 2024 5:59P Dictated by : MICHELA KESSLER MD This examination was interpreted and the report reviewed and electronically signed by: MICHELA KESSLER MD on Jul 09 2024 6:01PM EST [id number] Normal [facility] XR Elbow - right AP and Late ral and obliqueon 07-09-2024 IMPRESSION: No acute osseous abnormalities are identified. [employer] Supervisor: JOHN Transcribe Date/Time: Jul 09 2024 5:59P [...] effusion is identified. DIVISION OF RADIOLOGY Provider, [facility] Yannick [facility] - 07/09/2024 * * *Final Report* * [...] IMPRESSION: No acute osseous abnormalities are identified. [employer] Supervisor: JOHN Transcribe Date/Time: Jul 09 2024 5:59P Dictated by : MICHELA KESSLER MD This examination was interpreted and the report reviewed and electronically signed by: MICHELA KESSLER MD on Jul 09 2024 6:01PM EST [facility] Radiology Study observation (narrative) [facility] XR Elbow - right AP and Late ral and obliqueOrdered By: Ccf Provider on 07-09-2024 [facility] CNOVon 06-22-2024 CNOV Office Visit (GENSWS ) BETHANY MONTALVO ([id number]) 1965 [place] Date Time Provider Department 06/22/24 4:00 PM ALMA DELIA GARZA GENSWS During your visit today, we recorded the following information about you: Temperature Pulse Blood pressure Weight 98.9 degrees 107/minute 142/92 98.2 kg Height 1.803 m Alma Delia Garza APRN.CHRISTIANA 06/22/2024 4:31 PM Signed HISTORY AND PHYSICAL Bethany Montalvo : 1965 REFERRING PHYSICIAN: Keren Kwon [address] [facility] [address] CHIEF COMPLAINT: Patient presents with: Consult: colonoscopy [...] Heart Mother (more content not included)... Normal [facility] Valdo 06-22-2024 [facility] Telephone (GripeOS) BETHANY MONTALVO ([id number]) 1965 M Date Time Provider Department 06/22/24 ALMA DELIA GARZA During your visit today, we recorded the following information about you: Alma Delia Garza APRN.CNP 06/22/2024 4:30 PM Signed Please fax GI consult to Dr. Lovell at [facility]. Thank you, Alma Delia Garza APRN.Jaret Pinto MA 06/23/2024 4:48 PM Signed Faxed as requested. Jaret Paulino MA Allergies As of Date: 06/22/2024 Noted Allergy Reaction SUDAFED (PSEUDOEPHEDRINE) 06/26/2016 14 - Other: See Comments Comments: Prostate infection Date Reviewed: 06/22/2024 Reviewed by: Alma Delia Garza APRN.CNP - Fully Assessed Prescriptions as of 06/23/2024 [...] Encounter Status:Closed by JARET PAULINO on 06/23/24 [facility] CNOVon 06-12-2024 CNOV Office Visit (NOHEMYWS ) BETHANY MONTALVO [place] ([id number]) 1965 M Date Time Provider Department 06/12/24 2:40 PM KEREN KWON During your visit today, we recorded the following information about you: Pulse Respiration Blood pressure Weight 82/minute 16/minute 130/92 97.1 kg Keren Kwon APRN.CNP 06/12/2024 5:54 PM Signed This is a [...] CAD: Denies any chest pain/SOB. Following with [facility]. Last appt in September. GERD: [...] Age of Onset Psychiatry Mother Heart Mother [place] 53 Heart Father [place] 51 Colon Cancer Father Social History Tobacco [...] I25.10, I25. (more content not included)... Normal [facility] Basophil percentageOrdered B y: Casey Brewer on 10-14-2023 Bilirubin [Mass/Vol] 0.70 mg/dL 0.20-1.00 [facility] Comment on above: For patients on eltr ombopag therapy, use of [facility] [place] TBIL is not recommended. Chloride [Moles/Vol] 102 mmol/L 98-107 [facility] Glucose [Mass/Vol] 97 mg/dL 74-106 [facility] Hemoglobin (Bld) [Mass/Vol] 14.9 g/dL 13.0-16.5 [facility] Potassium [Moles/Vol] 4.8 mmol/L 3.5-5.1 [facility] Protein [Mass/Vol] 7.3 g/dL 6.4-8.2 [facility] Sodium [Moles/Vol] 137 mmol/L 136-145 [facility] WBC (Bld) [#/Vol] 6.0 10*3/uL 4.4-11.0 [facility] Determination of erythrocyte mean corpuscular volume (MCV)Ordered By: [facility] on 10-14-2023 MCV (RBC) [Entitic vol] 95.4 fL 80-94 [facility] Erythrocyte distribution wid th ratioOrdered By: [facility] on 10-14-2023 Erythrocyte distribution width (RBC) [Ratio] 13.0 % 11.6-14.6 [facility] Erythrocyte distribution wid th standard deviationOrdered By: [facility] on 10-14-2023 Erythrocyte distribution width (RBC) [Entitic vol] 45.4 fL 35.1-43.9 [facility] Hematocrit Auto (Bld) [Volum e fraction]Ordered By: [facility] on 10-14-2023 Hematocrit (Bld) [Volume fraction] 43.3 % 40-54 [facility] Laboratory - Chemistry and C hemistry - challengeOrdered By: [facility] on 10-14-2023 Albumin/Globulin [Mass ratio] 1.1 {ratio} 0.9-2.4 [facility] ALP [Catalytic activity/Vol] 80 U/L 45-117 [facility] ALT [Catalytic activity/Vol] 47 U/L 16-61 [facility] CO2 [Moles/Vol] 32.0 mmol/L 21.0-32.0 [facility] Globulin (S) [Mass/Vol] 3.4 g/dL 2.2-4.2 [facility] Urea nitrogen/Creatinine [Mass ratio] 8.1 mg/mg 10-20 [facility] Laboratory - Hematology and Cell countsOrdered By: Casey Brewer on 10-14-2023 [facility] (RBC) [Entitic mass] 32.8 pg 27.0-32.0 [facility] MCHC (RBC) [Mass/Vol] 34.4 g/dL 32-36 [facility] Platelet mean volume (Bld) [Entitic vol] 9.3 fL 6.2-12.0 [facility] Platelets (Bld) [#/Vol] 145 10*3/uL 150-450 [facility] No Panel InformationOrdered By: Casey Brewer on 10-14-2023 Estimated GFR (MDRD) Amer 63 mL/min >60 [facility] Comment on above: GFR Calc Estimated GFR (MDRD) Non-Af Amer 52 mL/min >60 [facility] Comment on above: Non- GFR Calc RBC Auto (Bld) [#/Vol]Ordere d By: Casey Brewer on 10-14-2023 RBC (Bld) [#/Vol] 4.54 10*6/uL 4.6-6.2 [facility] Serum or plasma calcium raina urement (mass/volume)Ordered By: Casey Brewer on 10-14-2023 Calcium [Mass/Vol] 9.4 mg/dL 8.5-10.1 [facility] Serum or plasma creatinine m easurement (mass/volume)Ordered By: Casey Brewer on 10-14-2023 Creatinine [Mass/Vol] 1.49 mg/dL 0.70-1.30 [facility] Comment on above: The validity of the calculated GFR & GFRAA in patients over 70 years has not been determined. Clinical correlation is essential. Serum or plasma urea nitroge n measurement (mass/volume)Ordered By: Casey Brewer on 10-14-2023 Urea nitrogen [Mass/Vol] 12 mg/dL 7-18 [facility] Thin prep Papanicolaou smear with manual screeningOrdered By: Casey Brewer on 10-14-2023 Thin prep Papanicolaou smear with manual screening 3.9 g/dL 3.2-5.0 [facility] Thin prep Papanicolaou smear with manual screening 55 U/L 15-37 [facility] Thin prep Papanicolaou smear with manual screening 3 5-15 [facility] Basophil percentageOrdered B y: Shakeel Valera on 05-16-2023 Basophil percentage 3.1 mg/dL 2.5-4.9 [facility] Chloride [Moles/Vol] 107 mmol/L 98-107 [facility] Glucose [Mass/Vol] 92 mg/dL 74-106 [facility] Potassium [Moles/Vol] 3.7 mmol/L 3.5-5.1 [facility] Sodium [Moles/Vol] 139 mmol/L 136-145 [facility] Laboratory - Chemistry and C hemistry - challengeOrdered By: Shakeel Valera on 05-16-2023 CO2 [Moles/Vol] 27.0 mmol/L 21.0-32.0 [facility] Magnesium [Mass/Vol] 1.6 mg/dL 1.6-2.6 [facility] Urea nitrogen/Creatinine [Mass ratio] 5.1 mg/mg 10-20 [facility] No Panel InformationOrdered By: Shakeel Valera on 05-16-2023 Estimated Creatinine Clearance Calc 86.90 ml/min [facility] Estimated GFR (MDRD) Amer 101 mL/min >60 [facility] Comment on above: GFR Calc Estimated GFR (MDRD) Non-Af Amer 84 mL/min >60 [facility] Comment on above: Non- GFR Calc Serum or plasma calcium raina urement (mass/volume)Ordered By: Shakeel Valera on 05-16-2023 Calcium [Mass/Vol] 7.8 mg/dL 8.5-10.1 [facility] Serum or plasma creatinine m easurement (mass/volume)Ordered By: Shakeel Valera on 05-16-2023 Creatinine [Mass/Vol] 0.98 mg/dL 0.70-1.30 [facility] Comment on above: The validity of the calculated GFR & GFRAA in patients over 70 years has not been determined. Clinical correlation is essential. Serum or plasma urea nitroge n measurement (mass/volume)Ordered By: Shakeel Valera on 05-16-2023 Urea nitrogen [Mass/Vol] 5 mg/dL 7-18 [facility] Thin prep Papanicolaou smear with manual screeningOrdered By: Shakeel Valera on 05-16-2023 Thin prep Papanicolaou smear with manual screening 5 5-15 [facility] Basophil percentageOrdered B y: Shakeel Valera on 05-15-2023 Bilirubin [Mass/Vol] 1.60 mg/dL 0.20-1.00 [facility] Comment on above: For patients on eltr ombopag therapy, use of [employer] [place] TBIL is not recommended. Protein [Mass/Vol] 5.5 g/dL 6.4-8.2 [facility] Laboratory - Chemistry and C hemistry - challengeOrdered By: Shakeel Valera on 05-15-2023 ALP [Catalytic activity/Vol] 118 U/L 45-117 [facility] ALT [Catalytic activity/Vol] 87 U/L 16-61 [facility] Globulin (S) [Mass/Vol] 2.8 g/dL 2.2-4.2 [facility] Serum or plasma albumin raina urement (mass/volume)Ordered By: Shakeel Valera on 05-15-2023 Albumin [Mass/Vol] 2.7 g/dL 3.2-5.0 [facility] Serum or plasma albumin/glob ulin mass ratioOrdered By: Shakeel Valera on 05-15-2023 Albumin/Globulin [Mass ratio] 1.0 {ratio} 0.9-2.4 [facility] Thin prep Papanicolaou smear with manual screeningOrdered By: Shakeel Valera on 05-15-2023 Thin prep Papanicolaou smear with manual screening 85 U/L 15-37 [facility] Absolute lymphocyte countOrd ered By: Lorena Bennett on 05-14-2023 Lymphocytes Auto (Unsp spec) [#/Vol] 1.52 10*3/uL 0.83-4.51 [facility] Basophil percentageOrdered B y: Lorena Bennett on 05-14-2023 Basophils/100 WBC (Bld) 0.4 % 0-1 [facility] Eosinophils/100 WBC (Bld) 1.8 % 0-5 [facility] Neutrophils (Bld) [#/Vol] 2.5 10*3/uL 2.0-7.7 [facility] Neutrophils/100 WBC (Bld) 55.9 % 47-70 [facility] WBC (Bld) [#/Vol] 4.5 10*3/uL 4.4-11.0 [facility] Blood erythrocytes count (nu mber/volume)Ordered By: Lorena Bennett on 05-14-2023 RBC (Bld) [#/Vol] 3.43 10*6/uL 4.6-6.2 [facility] Blood hemoglobin measurement (mass/volume)Ordered By: Lorena Bennett on 05-14-2023 Hemoglobin (Bld) [Mass/Vol] 11.5 g/dL 13.0-16.5 [facility] Blood lymphocytes/100 leukoc ytesOrdered By: Lorena Bennett on 05-14-2023 Lymphocytes/100 WBC (Bld) 34.1 % 19-41 [facility] Blood monocytes/100 leukocyt esOrdered By: Lorena Bennett on 05-14-2023 Monocytes/100 WBC (Bld) 7.6 % 0-10 [facility] Blood platelet adequacy dete ction by light microscopyOrdered By: Lorena Bennett on 05-14-2023 Platelets LM Ql (Bld) MOD DEC ADEQ [facility] Blood platelet mean volumeOr dered By: Lorena Bennett on 05-14-2023 Platelet mean volume (Bld) [Entitic vol] 9.8 fL 6.2-12.0 [facility] Determination of erythrocyte mean corpuscular volume (MCV)Ordered By: Lorena Bennett on 05-14-2023 MCV (RBC) [Entitic vol] 100.9 fL 80-94 [facility] Hematocrit Auto (Bld) [Volum e fraction]Ordered By: Lorena Bennett on 05-14-2023 Hematocrit (Bld) [Volume fraction] 34.6 % 40-54 [facility] Laboratory - Hematology and Cell countsOrdered By: Lorena Bennett on 05-14-2023 Erythrocyte distribution width (RBC) [Entitic vol] 46.6 fL 35.1-43.9 [facility] Erythrocyte distribution width (RBC) [Ratio] 12.7 % 11.6-14.6 [facility] Immature granulocytes/100 WBC (Bld) 0.200 % 0.0-0.9 [facility] Comment on above: IG% - Immature Granu locytes (promyelocytes, myelocytes and metamyelocytes) > 1% indicates that a LEFT SHIFT is Present. MCH (RBC) [Entitic mass] 33.5 pg 27.0-32.0 [facility] Nucleated RBC/100 WBC (Bld) [Ratio] 0 % 0-5 [facility] MCHC Auto (RBC) [Mass/Vol]Or dered By: Lorena Bennett on 05-14-2023 MCHC (RBC) [Mass/Vol] 33.2 g/dL 32-36 [facility] Platelets bldOrdered By: Angeles Bennett on 05-14-2023 Platelets (Bld) [#/Vol] 75 10*3/uL 150-450 [facility] Absolute lymphocyte countOrd ered By: Jaun Sanz on 05-13-2023 Lymphocytes Auto (Unsp spec) [#/Vol] 1.18 10*3/uL 0.83-4.51 [facility] Basophil percentageOrdered B y: Jaun Sanz on 05-13-2023 Lactate [Moles/Vol] 0.4 mmol/L 0.4-2.0 [facility] Basophil percentage 0-5 SEEN /hpf 0-5 [facility] Basophils/100 WBC (Bld) 0.5 % 0-1 [facility] Bilirubin [Mass/Vol] 4.20 mg/dL 0.20-1.00 [facility] Comment on above: For patients on eltr ombopag therapy, use of [employer] TBIL is not recommended. Chloride [Moles/Vol] 101 mmol/L 98-107 [facility] Eosinophils/100 WBC (Bld) 0.3 % 0-5 [facility] Glucose [Mass/Vol] 129 mg/dL 74-106 [facility] Comment on above: Fasting Glucose resu lt greater than or equal to 126 mg/dL suggests DIABETES MELLITUS per A.D.A. criteria. Neutrophils (Bld) [#/Vol] 4.7 10*3/uL 2.0-7.7 [facility] Neutrophils/100 WBC (Bld) 72.9 % 47-70 [facility] Potassium [Moles/Vol] 4.2 mmol/L 3.5-5.1 [facility] Comment on above: Moderate Hemolysis, Result may be falsely increased. Protein [Mass/Vol] 8.3 g/dL 6.4-8.2 [facility] Sodium [Moles/Vol] 138 mmol/L 136-145 [facility] WBC (Bld) [#/Vol] 6.4 10*3/uL 4.4-11.0 [facility] Bilirubin Test strip Ql (U)O rdered By: Jaun Sanz on 05-13-2023 Bilirubin Ql (U) 3 mg/dL Negative [facility] Comment on above: COLOR OF URINE MAY A FFECT DIPSTICK RESULTS. Blood erythrocytes count (nu mber/volume)Ordered By: Jaun Sanz on 05-13-2023 RBC (Bld) [#/Vol] 4.93 10*6/uL 4.6-6.2 [facility] Blood hemoglobin measurement (mass/volume)Ordered By: Jaun Sanz on 05-13-2023 Hemoglobin (Bld) [Mass/Vol] 16.1 g/dL 13.0-16.5 [facility] Blood lymphocytes/100 leukoc ytesOrdered By: Jaun Sanz on 05-13-2023 Lymphocytes/100 WBC (Bld) 18.4 % 19-41 [facility] Blood monocytes/100 leukocyt esOrdered By: Jaun Sazn on 05-13-2023 Monocytes/100 WBC (Bld) 7.6 % 0-10 [facility] Blood platelet mean volumeOr dered By: Jaun Sanz on 05-13-2023 Platelet mean volume (Bld) [Entitic vol] 9.9 fL 6.2-12.0 [facility] Determination of erythrocyte mean corpuscular volume (MCV)Ordered By: Jaun Sanz on 05-13-2023 MCV (RBC) [Entitic vol] 97.0 fL 80-94 [facility] Hematocrit Auto (Bld) [Volum e fraction]Ordered By: Jaun Sanz on 05-13-2023 Hematocrit (Bld) [Volume fraction] 47.8 % 40-54 [facility] Hyaline casts LM.LPF (Urine sed) [#/Area]Ordered By: Jaun Sanz on 05-13-2023 Hyaline casts (Urine sed) [#/Area] /[LPF] 0-5 [facility] Ketones Test strip Ql (U)Ord ered By: Jaun Sanz on 05-13-2023 Ketones Ql (U) 15 mg/dl Negative [facility] Laboratory - Chemistry and C hemistry - challengeOrdered By: Jaun Sanz on 05-13-2023 ALP [Catalytic activity/Vol] 207 U/L 45-117 [facility] ALT [Catalytic activity/Vol] 197 U/L 16-61 [facility] CO2 [Moles/Vol] 23.0 mmol/L 21.0-32.0 [facility] Globulin (S) [Mass/Vol] 4.2 g/dL 2.2-4.2 [facility] Lipase [Catalytic activity/Vol] 56 U/L 13-75 [facility] Comment on above: Please note:LIPASE r evised reference range effective 22. New Lipase methodology. Expected to produce lower values than the previous assay method. NEW Reference Range: 13 - 75 U/L Urea nitrogen/Creatinine [Mass ratio] 5.8 mg/mg 10-20 [facility] Laboratory - Hematology and Cell countsOrdered By: Jaun Sanz on 05-13-2023 Erythrocyte distribution width (RBC) [Entitic vol] 44.6 fL 35.1-43.9 [facility] Erythrocyte distribution width (RBC) [Ratio] 12.4 % 11.6-14.6 [facility] Immature granulocytes/100 WBC (Bld) 0.300 % 0.0-0.9 [facility] Comment on above: IG% - Immature Granu locytes (promyelocytes, myelocytes and metamyelocytes) > 1% indicates that a LEFT SHIFT is Present. MCH (RBC) [Entitic mass] 32.7 pg 27.0-32.0 [facility] Nucleated RBC/100 WBC (Bld) [Ratio] 0 % 0-5 [facility] MCHC Auto (RBC) [Mass/Vol]Or dered By: Jaun Sanz on 05-13-2023 MCHC (RBC) [Mass/Vol] 33.7 g/dL 32-36 [facility] Mucus LM Ql (Urine sed)Order ed By: Jaun Sanz on 05-13-2023 Mucus Ql (Urine sed) 0 SEEN /hpf [facility] Nitrite Test strip Ql (U)Ord ered By: Jaun Sanz on 05-13-2023 Nitrite Ql (U) Negative Negative [facility] No Panel InformationOrdered By: Jaun Sanz on 05-13-2023 Estimated Creatinine Clearance Calc 45.06 ml/min [facility] Estimated GFR (MDRD) Amer 48 mL/min >60 [facility] Comment on above: GFR Calc Estimated GFR (MDRD) Non-Af Amer 39 mL/min >60 [facility] Comment on above: Non- GFR Calc Ethyl Alcohol Level < 3.0 mg/dL [facility] Comment on above: The serum:whole bloo d ethanol ratio is approximately 1.14and varies slightly with hematocrit. Medical Alcohol reference interval and critical value innon-tolerant individuals; 50 - 100 Impairment 100 Intoxication 100 - 250 Severe Poisoning 250 - 400 Deep/possible fatal coma Platelets bldOrdered By: Mary Alice Sanz on 05-13-2023 Platelets (Bld) [#/Vol] 111 10*3/uL 150-450 [facility] Protein Test strip Ql (U)Ord ered By: Jaun Sanz on 05-13-2023 Protein Ql (U) 100 mg/dl Negative [facility] Serum or plasma albumin raina urement (mass/volume)Ordered By: Jaun Sanz on 05-13-2023 Albumin [Mass/Vol] 4.1 g/dL 3.2-5.0 [facility] Serum or plasma albumin/glob ulin mass ratioOrdered By: Jaun Sanz on 05-13-2023 Albumin/Globulin [Mass ratio] 1.0 {ratio} 0.9-2.4 [facility] Serum or plasma calcium raina urement (mass/volume)Ordered By: Jaun Sanz on 05-13-2023 Calcium [Mass/Vol] 9.2 mg/dL 8.5-10.1 [facility] Serum or plasma creatinine m easurement (mass/volume)Ordered By: Jaun Sanz on 05-13-2023 Creatinine [Mass/Vol] 1.89 mg/dL 0.70-1.30 [facility] Comment on above: The validity of the calculated GFR & GFRAA in patients over 70 years has not been determined. Clinical correlation is essential. Serum or plasma urea nitroge n measurement (mass/volume)Ordered By: Jaun Sanz on 05-13-2023 Urea nitrogen [Mass/Vol] 11 mg/dL 7-18 [facility] Squamous epithelial cells de tection in urine sediment by light microscopyOrdered By: Jaun Sanz on 05-13-2023 Epithelial cells.squamous LM Ql (Urine sed) 0 SEEN /hpf 0-5 [facility] Stool enteric pathogen panel by probe and target amplification methodOrdered By: Lorena Bennett on 05-13-2023 Gastrointestinal pathogens panel ABBY+probe (Stl) [facility] Thin prep Papanicolaou smear with manual screeningOrdered By: Jaun Sanz on 05-13-2023 Thin prep Papanicolaou smear with manual screening 255 U/L 15-37 [facility] Comment on above: Moderate Hemolysis, Result may be falsely increased. Thin prep Papanicolaou smear with manual screening 14 5-15 [facility] Urine blood detectionOrdered By: Jaun Sanz on 05-13-2023 RBC Ql (U) 10 /ul Negative [facility] RBC Ql (U) 0 SEEN /hpf 0-5 [facility] Urine clarityOrdered By: Mary Alice Sanz on 05-13-2023 Clarity (U) Clear Clear [facility] Urine color determinationOrd ered By: Jaun Sanz on 05-13-2023 Color (U) SEE COMMENT BELOW Yellow [facility] Comment on above: Visual Urine Color: ORANGE Urine glucose detectionOrder ed By: Jaun Sanz on 05-13-2023 Glucose Ql (U) Normal mg/dl Normal [facility] Urine leukocyte esterase det ection by dipstickOrdered By: Jaun Sanz on 05-13-2023 Leukocyte esterase Test strip Ql (U) 25 /ul Negative [facility] Urine pHOrdered By: Jaun scott on 05-13-2023 pH (U) 5.0 [pH] 5.0 - 8.0 [facility] Urine sediment bacteria coun t by microscopy (number/high power field)Ordered By: Jaun Sanz on 05-13-2023 Bacteria LM.HPF (Urine sed) [#/Area] 0 /[HPF] None Seen [facility] Urine specific gravity measu rementOrdered By: Jaun Sanz on 05-13-2023 Specific gravity (U) [Rel density] 1.020 1.002-1.03 0 [facility] Urobilinogen Auto test strip Ql (U)Ordered By: Jaun Sanz on 05-13-2023 Urobilinogen Ql (U) 8 mg/dl Normal [facility] Absolute lymphocyte countOrd ered By: Casey Brewer on 04-01-2023 Lymphocytes Auto (Unsp spec) [#/Vol] 1.28 10*3/uL 0.83-4.51 [facility] Basophil percentageOrdered B y: Casey Brewer on 04-01-2023 Basophils/100 WBC (Bld) 0.2 % 0-1 [facility] Bilirubin [Mass/Vol] 1.70 mg/dL 0.20-1.00 [facility] Comment on above: For patients on eltr ombopag therapy, use of [employer] TBIL is not recommended. Chloride [Moles/Vol] 100 mmol/L 98-107 [facility] Eosinophils/100 WBC (Bld) 0.8 % 0-5 [facility] Glucose [Mass/Vol] 93 mg/dL 74-106 [facility] Neutrophils (Bld) [#/Vol] 4.5 10*3/uL 2.0-7.7 [facility] Neutrophils/100 WBC (Bld) 71.3 % 47-70 [facility] Potassium [Moles/Vol] 3.5 mmol/L 3.5-5.1 [facility] Protein [Mass/Vol] 7.5 g/dL 6.4-8.2 [facility] Sodium [Moles/Vol] 136 mmol/L 136-145 [facility] WBC (Bld) [#/Vol] 6.3 10*3/uL 4.4-11.0 [facility] Blood erythrocytes count (nu mber/volume)Ordered By: Casey Brewer on 04-01-2023 RBC (Bld) [#/Vol] 4.10 10*6/uL 4.6-6.2 [facility] Blood hemoglobin measurement (mass/volume)Ordered By: Casey Brewer on 04-01-2023 Hemoglobin (Bld) [Mass/Vol] 13.3 g/dL 13.0-16.5 [facility] Blood lymphocytes/100 leukoc ytesOrdered By: Caseydelfino Brewer on 04-01-2023 Lymphocytes/100 WBC (Bld) 20.3 % 19-41 [facility] Blood monocytes/100 leukocyt esOrdered By: Caseydelfino Brewer on 04-01-2023 Monocytes/100 WBC (Bld) 7.1 % 0-10 [facility] Blood platelet mean volumeOr dered By: Casey Brewer on 04-01-2023 Platelet mean volume (Bld) [Entitic vol] 9.5 fL 6.2-12.0 [facility] Determination of erythrocyte mean corpuscular volume (MCV)Ordered By: Caseydelfino Brewer on 04-01-2023 MCV (RBC) [Entitic vol] 98.8 fL 80-94 [facility] Hematocrit Auto (Bld) [Volum e fraction]Ordered By: Caseydelfino Brewer on 04-01-2023 Hematocrit (Bld) [Volume fraction] 40.5 % 40-54 [facility] Laboratory - Chemistry and C hemistry - challengeOrdered By: Casey Brewer on 04-01-2023 ALP [Catalytic activity/Vol] 146 U/L 45-117 [facility] ALT [Catalytic activity/Vol] 54 U/L 16-61 [facility] CO2 [Moles/Vol] 27.0 mmol/L 21.0-32.0 [facility] Globulin (S) [Mass/Vol] 3.7 g/dL 2.2-4.2 [facility] Urea nitrogen/Creatinine [Mass ratio] 8.3 mg/mg 10-20 [facility] Laboratory - Hematology and Cell countsOrdered By: Casey Brewer on 04-01-2023 Erythrocyte distribution width (RBC) [Entitic vol] 46.5 fL 35.1-43.9 [facility] Erythrocyte distribution width (RBC) [Ratio] 12.8 % 11.6-14.6 [facility] Immature granulocytes/100 WBC (Bld) 0.300 % 0.0-0.9 [facility] Comment on above: IG% - Immature Granu locytes (promyelocytes, myelocytes and metamyelocytes) > 1% indicates that a LEFT SHIFT is Present. MCH (RBC) [Entitic mass] 32.4 pg 27.0-32.0 [facility] Nucleated RBC/100 WBC (Bld) [Ratio] 0 % 0-5 [facility] MCHC Auto (RBC) [Mass/Vol]Or dered By: Casey Brewer on 04-01-2023 MCHC (RBC) [Mass/Vol] 32.8 g/dL 32-36 [facility] No Panel InformationOrdered By: Casey Brewer on 04-01-2023 Estimated GFR (MDRD) Amer 72 mL/min >60 [facility] Comment on above: GFR Calc Estimated GFR (MDRD) Non-Af Amer 60 mL/min >60 [facility] Comment on above: Non- GFR Calc Thyroid Stimulating Hormone (TSH) 1.08 uIU/mL 0.358-3.74 [facility] Platelets bldOrdered By: Valdemar Brewer on 04-01-2023 Platelets (Bld) [#/Vol] 118 10*3/uL 150-450 [facility] Serum or plasma albumin raina urement (mass/volume)Ordered By: Casey Brewer on 04-01-2023 Albumin [Mass/Vol] 3.8 g/dL 3.2-5.0 [facility] Serum or plasma albumin/glob ulin mass ratioOrdered By: Casey Brewer on 04-01-2023 Albumin/Globulin [Mass ratio] 1.0 {ratio} 0.9-2.4 [facility] Serum or plasma calcium raina urement (mass/volume)Ordered By: Casey Brewer on 04-01-2023 Calcium [Mass/Vol] 9.1 mg/dL 8.5-10.1 [facility] Serum or plasma creatinine m easurement (mass/volume)Ordered By: Casey Brewer on 04-01-2023 Creatinine [Mass/Vol] 1.32 mg/dL 0.70-1.30 [facility] Comment on above: The validity of the calculated GFR & GFRAA in patients over 70 years has not been determined. Clinical correlation is essential. Serum or plasma urea nitroge n measurement (mass/volume)Ordered By: Casey Brewer on 04-01-2023 Urea nitrogen [Mass/Vol] 11 mg/dL 7-18 [facility] Thin prep Papanicolaou smear with manual screeningOrdered By: Casey Brewer on 04-01-2023 Thin prep Papanicolaou smear with manual screening 52 U/L 15 [facility] Thin prep Papanicolaou smear with manual screening 9 5-15 [facility] CBC W Auto Differential pane l (Bld)on 01-22-2023 Basophils (Bld) [#/Vol] 0.03 10*3/uL <0.11 k/uL [facility] Basophils/100 WBC (Bld) 0.4 % [facility] Differential cell count method Nom (Bld) Auto [facility] Eosinophils (Bld) [#/Vol] 0.07 10*3/uL <0.46 k/uL [facility] Eosinophils/100 WBC (Bld) 1.0 % [facility] Erythrocyte distribution width (RBC) [Ratio] 13.2 % 11.5 - 15.0 % [facility] Hematocrit (Bld) [Volume fraction] 38.6 % Low 39.0 - 51.0 % [facility] Hemoglobin (Bld) [Mass/Vol] 13.0 g/dL 13.0 - 17.0 g/dL [facility] Immature granulocytes (Bld) [#/Vol] <0.10 k/uL [facility] Immature granulocytes/100 WBC (Bld) 0.3 % [facility] Lymphocytes (Bld) [#/Vol] 1.33 10*3/uL 1.00 - 4.00 k/uL [facility] Lymphocytes/100 WBC (Bld) 19.3 % [facility] MCH (RBC) [Entitic mass] 32.3 pg 26.0 - 34.0 pg [facility] MCHC (RBC) [Mass/Vol] 33.7 g/dL 30.5 - 36.0 g/dL [facility] MCV (RBC) [Entitic vol] 95.8 fL 80.0 - 100.0 fL [facility] Monocytes (Bld) [#/Vol] 0.63 10*3/uL <0.87 k/uL [facility] Monocytes/100 WBC (Bld) 9.2 % [facility] Neutrophils (Bld) [#/Vol] 4.80 10*3/uL 1.45 - 7.50 k/uL [facility] Neutrophils/100 WBC (Bld) 69.8 % [facility] Nucleated RBC (Bld) [#/Vol] <0.01 k/uL [facility] Nucleated RBC/100 WBC (Bld) [Ratio] 0.0 /100 WBC [facility] Platelet mean volume (Bld) [Entitic vol] 10.1 fL 9.0 - 12.7 fL [facility] Platelets (Bld) [#/Vol] 146 10*3/uL Low 150 - 400 k/uL [facility] RBC (Bld) [#/Vol] 4.03 10*6/uL Low 4.20 - 6.00 m/uL [facility] WBC (Bld) [#/Vol] 6.88 10*3/uL 3.70 - 11.00 k/uL [facility] Hepatic function 2000 panelo n 01-22-2023 Albumin [Mass/Vol] 4.4 g/dL 3.9 - 4.9 g/dL [facility] ALP [Catalytic activity/Vol] 136 U/L High 38 - 113 U/L [facility] ALT [Catalytic activity/Vol] 112 U/L High 10 - 54 U/L [facility] AST [Catalytic activity/Vol] 169 U/L High 14 - 40 U/L [facility] Bilirubin [Mass/Vol] 0.6 mg/dL 0.2 - 1 .3 mg/dL [facility] Bilirubin.conjugated [Mass/Vol] 0.2 mg/dL High <0.2 mg/dL [facility] Protein [Mass/Vol] 6.6 g/dL 6.3 - 8.0 g/dL [facility] MAGNESIUM BLDon 01-22-2023 Magnesium [Mass/Vol] 1.5 mg/dL Low 1.7 - 2 .3 mg/dL [facility] Absolute lymphocyte countOrd ered By: Abdoulaye Wesley on 01-02-2023 Lymphocytes Auto (Unsp spec) [#/Vol] 0.96 10*3/uL 0.83-4.51 [facility] Basophil percentageOrdered B y: Abdoulaye Wesley on 01-02-2023 Basophils/100 WBC (Bld) 0.7 % 0-1 [facility] Chloride [Moles/Vol] 100 mmol/L 98-107 [facility] Eosinophils/100 WBC (Bld) 0.9 % 0-5 [facility] Glucose [Mass/Vol] 110 mg/dL 74-106 [facility] Comment on above: Fasting Glucose resu lt from 100 to 125 mg/dL suggests IMPAIRED HOMEOSTASIS per A.D.A. criteria. Neutrophils (Bld) [#/Vol] 2.9 10*3/uL 2.0-7.7 [facility] Neutrophils/100 WBC (Bld) 68.4 % 47-70 [facility] Potassium [Moles/Vol] 4.6 mmol/L 3.5-5.1 [facility] Comment on above: Moderate Hemolysis, Result may be falsely increased. Sodium [Moles/Vol] 136 mmol/L 136-145 [facility] WBC (Bld) [#/Vol] 4.2 10*3/uL 4.4-11.0 [facility] Blood erythrocytes count (nu mber/volume)Ordered By: Abdoulaye Wesley on 01-02-2023 RBC (Bld) [#/Vol] 4.85 10*6/uL 4.6-6.2 [facility] Blood hemoglobin measurement (mass/volume)Ordered By: Abdoulaye Wesley on 01-02-2023 Hemoglobin (Bld) [Mass/Vol] 15.7 g/dL 13.0-16.5 [facility] Blood lymphocytes/100 leukoc ytesOrdered By: Abdoulaye Wesley on 01-02-2023 Lymphocytes/100 WBC (Bld) 22.7 % 19-41 [facility] Blood monocytes/100 leukocyt esOrdered By: Abdoulaye Wesley on 01-02-2023 Monocytes/100 WBC (Bld) 7.3 % 0-10 [facility] Blood platelet mean volumeOr dered By: Abdoulaye Wesley on 01-02-2023 Platelet mean volume (Bld) [Entitic vol] 9.3 fL 6.2-12.0 [facility] Determination of erythrocyte mean corpuscular volume (MCV)Ordered By: Abdoulaye Wesley on 01-02-2023 MCV (RBC) [Entitic vol] 93.6 fL 80-94 [facility] Hematocrit Auto (Bld) [Volum e fraction]Ordered By: Abdoulaye Wesley on 01-02-2023 Hematocrit (Bld) [Volume fraction] 45.4 % 40-54 [facility] Laboratory - Chemistry and C hemistry - challengeOrdered By: Abdoulaye Wesley on 01-02-2023 CO2 [Moles/Vol] 28.0 mmol/L 21.0-32.0 [facility] Urea nitrogen/Creatinine [Mass ratio] 7.8 mg/mg 10-20 [facility] Laboratory - Hematology and Cell countsOrdered By: Abdoulaye Wesley on 01-02-2023 Erythrocyte distribution width (RBC) [Entitic vol] 42.9 fL 35.1-43.9 [facility] Erythrocyte distribution width (RBC) [Ratio] 12.5 % 11.6-14.6 [facility] Immature granulocytes/100 WBC (Bld) 0.000 % 0.0-0.9 [facility] Comment on above: IG% - Immature Granu locytes (promyelocytes, myelocytes and metamyelocytes) > 1% indicates that a LEFT SHIFT is Present. MCH (RBC) [Entitic mass] 32.4 pg 27.0-32.0 [facility] Nucleated RBC/100 WBC (Bld) [Ratio] 0 % 0-5 [facility] MCHC Auto (RBC) [Mass/Vol]Or dered By: Abdoulaye Wesley on 01-02-2023 MCHC (RBC) [Mass/Vol] 34.6 g/dL 32-36 [facility] No Panel InformationOrdered By: Abdoulaye Wesley on 01-02-2023 Estimated Creatinine Clearance Calc 60.40 ml/min [facility] Estimated GFR (MDRD) Amer 67 mL/min >60 [facility] Comment on above: GFR Calc Estimated GFR (MDRD) Non-Af Amer 55 mL/min >60 [facility] Comment on above: Non- GFR Calc Troponin I High Sensitivity 9 pg/mL 3.0-78.0 [facility] Comment on above: Please Note: New Michelle t Units and Gender Specific Reference Ranges. For more information see Policy Stat Procedure [place] High Sensitivity Troponin (TNIH) and attachments. Platelets bldOrdered By: Jack Wesley on 01-02-2023 Platelets (Bld) [#/Vol] 117 10*3/uL 150-450 [facility] Serum or plasma calcium raina urement (mass/volume)Ordered By: Abdoulaye Wesley on 01-02-2023 Calcium [Mass/Vol] 8.9 mg/dL 8.5-10.1 [facility] Serum or plasma creatinine m easurement (mass/volume)Ordered By: Abdoulaye Wesley on 01-02-2023 Creatinine [Mass/Vol] 1.41 mg/dL 0.70-1.30 [facility] Comment on above: The validity of the calculated GFR & GFRAA in patients over 70 years has not been determined. Clinical correlation is essential. Serum or plasma urea nitroge n measurement (mass/volume)Ordered By: Abdoulaye Wesley on 01-02-2023 Urea nitrogen [Mass/Vol] 11 mg/dL 7-18 [facility] Thin prep Papanicolaou smear with manual screeningOrdered By: Abdoulaye Wesley on 01-02-2023 Thin prep Papanicolaou smear with manual screening 8 5-15 [facility] CBC W Auto Differential pane l (Bld)on 11-05-2022 Basophils (Bld) [#/Vol] <0.11 k/uL [facility] Basophils/100 WBC (Bld) 0.3 % [facility] Differential cell count method Nom (Bld) Auto [facility] Eosinophils (Bld) [#/Vol] 0.11 10*3/uL <0.46 k/uL [facility] Eosinophils/100 WBC (Bld) 1.7 % [facility] Erythrocyte distribution width (RBC) [Ratio] 12.1 % 11.5 - 15.0 % [facility] Hematocrit (Bld) [Volume fraction] 39.4 % 39.0 - 51.0 % [facility] Hemoglobin (Bld) [Mass/Vol] 14.4 g/dL 13.0 - 17.0 g/dL [facility] Immature granulocytes (Bld) [#/Vol] <0.10 k/uL [facility] Immature granulocytes/100 WBC (Bld) 0.2 % [facility] Lymphocytes (Bld) [#/Vol] 1.50 10*3/uL 1.00 - 4.00 k/uL [facility] Lymphocytes/100 WBC (Bld) 23.0 % [facility] MCH (RBC) [Entitic mass] 33.3 pg 26.0 - 34.0 pg [facility] MCHC (RBC) [Mass/Vol] 36.5 g/dL High 30.5 - 36.0 g/dL [facility] MCV (RBC) [Entitic vol] 91.2 fL 80.0 - 100.0 fL [facility] Monocytes (Bld) [#/Vol] 0.53 10*3/uL <0.87 k/uL [facility] Monocytes/100 WBC (Bld) 8.1 % [facility] Neutrophils (Bld) [#/Vol] 4.35 10*3/uL 1.45 - 7.50 k/uL [facility] Neutrophils/100 WBC (Bld) 66.7 % [facility] Nucleated RBC (Bld) [#/Vol] <0.01 k/uL [facility] Nucleated RBC/100 WBC (Bld) [Ratio] 0.0 /100 WBC [facility] Platelet mean volume (Bld) [Entitic vol] 10.0 fL 9.0 - 12.7 fL [facility] Platelets (Bld) [#/Vol] 141 10*3/uL Low 150 - 400 k/uL [facility] RBC (Bld) [#/Vol] 4.32 10*6/uL 4.20 - 6.00 m/uL [facility] WBC (Bld) [#/Vol] 6.52 10*3/uL 3.70 - 11.00 k/uL [facility] HEP C AB IA W/CONF SCRNon HCV Ab Ql (S) Negative Negative [facility] XR FOOT GENERAL 3V AP/LAT/OB L RIGHTon 06-25-2022 [facility] XR Foot - right AP and Later al and obliqueon 06-25-2022 IMPRESSION: No radiographic evidence of acute osseous injury [employer] Super[employer]: [facility] Transcribe Date/Time: Jun 25 2022 6:19P Dictated by : OMID RENEE MD This examination was interpreted and the report reviewed and electronically signed by: OMID RENEE MD on Jun 25 2022 6:20PM [facility] DIVISION OF RADIOLOGY * * *Final Report* [...] Joint spaces preserved. DIVISION OF RADIOLOGY Provider, [facility] - 06/25/2022 * * *Final [...] No radiographic evidence of acute osseous injury [employer] Supervisor: [facility] Transcribe Date/Time: Jun 25 2022 6:19P Dictated by : OMID RENEE MD This examination was interpreted and the report reviewed and electronically signed by: OMID RENEE MD on Jun 25 2022 6:20PM EST [facility] Radiology Study observation (narrative) [facility] XR Foot - right AP and Later al and obliqueOrdered By: Ccf Provider on 06-25-2022 [facility] XR CHEST 2V FRONTAL/LATon [facility] XR Chest PA and Lateralon IMPRESSION: Within normal limits. No acute radiographic abnormality. [employer] Supervisor: [facility] Transcribe Date/Time: Feb 19 2022 3:43P Dictated [...] spine. ZZZ_DO_NOT _USE_DIVIS ION OF RADIOLOGY Provider, [facility] - 02/19/2022 * * *Final Report* * [...] Within normal limits. No acute radiographic abnormality. [employer]: [facility] Transcribe Date/Time: Feb 19 2022 3:43P Dictated by : EITAN SCHWARTZ MD This examination was interpreted and the report reviewed and electronically signed by: EITAN SCHWARTZ MD on Feb 19 2022 3:44PM EST [facility] Radiology Study observation (narrative) [facility] XR Chest PA and LateralOrder ed By: Ccf Provider on 02-19-2022 [facility] Absolute lymphocyte counton 11-08-2021 Lymphocytes Auto (Unsp spec) [#/Vol] 2.13 10*3/uL 0.83-4.51 [facility] Work Phone: Basophil percentageon 2021 Basophil percentage 0 SEEN /hpf [facility] Work Phone: Basophils/100 WBC (Bld) 0.4 % 0-1 [facility] Work Phone: Chloride [Moles/Vol] 103 mmol/L 98-107 [facility] Work Phone: Eosinophils/100 WBC (Bld) 1.5 % 0-5 [facility] Work Phone: Glucose [Mass/Vol] 98 mg/dL 74-106 [facility] Work Phone: Neutrophils (Bld) [#/Vol] 5.2 10*3/uL 2.0-7.7 [facility] Work Phone: Neutrophils/100 WBC (Bld) 64.3 % 47-70 [facility] Work Phone: Potassium [Moles/Vol] 5.1 mmol/L 3.5-5.1 [facility] Work Phone: Comment on above: Slight Hemolysis, Re sult may be falsely increased. Sodium [Moles/Vol] 135 mmol/L 136-145 [facility] Work Phone: WBC (Bld) [#/Vol] 8.1 10*3/uL 4.4-11.0 [facility] Work Phone: Bilirubin Test strip Ql (U)o n 11-08-2021 Bilirubin Ql (U) Negative Negative [facility] Work Phone: Blood erythrocytes count (nu mber/volume)on 11-08-2021 RBC (Bld) [#/Vol] 4.39 10*6/uL 4.6-6.2 [facility] Work Phone: Blood hemoglobin measurement (mass/volume)on 11-08-2021 Hemoglobin (Bld) [Mass/Vol] 14.8 g/dL 13.0-16.5 [facility] Work Phone: Blood lymphocytes/100 leukoc yteson 11-08-2021 Lymphocytes/100 WBC (Bld) 26.5 % 19-41 [facility] Work Phone: Blood monocytes/100 leukocyt eson 11-08-2021 Monocytes/100 WBC (Bld) 7.2 % 0-10 [facility] Work Phone: Blood platelet mean volumeon 11-08-2021 Platelet mean volume (Bld) [Entitic vol] 9.4 fL 6.2-12.0 [facility] Work Phone: Determination of erythrocyte mean corpuscular volume (MCV)on 11-08-2021 MCV (RBC) [Entitic vol] 95.2 fL 80-94 [facility] Work Phone: [phone] Hematocrit Auto (Bld) [Volum e fraction]on 11-08-2021 Hematocrit (Bld) [Volume fraction] 41.8 % 40-54 [facility] Work Phone: [phone] Ketones Test strip Ql (U)on 11-08-2021 Ketones Ql (U) Negative Negative [facility] Work Phone: Laboratory - Chemistry and C hemistry - challengeon 11-08-2021 CO2 [Moles/Vol] 26.0 mmol/L 21.0-32.0 [facility] Work Phone: [phone] Urea nitrogen/Creatinine [Mass ratio] 9.0 mg/mg 10- [facility] Work Phone: [phone] Laboratory - Hematology and Cell countson 11-08-2021 Erythrocyte distribution width (RBC) [Entitic vol] 41.9 fL 35.1-43.9 [facility] Work Phone: [phone] Erythrocyte distribution width (RBC) [Ratio] 12.0 % 11.6-14.6 [facility] Work Phone: Immature granulocytes/100 WBC (Bld) 0.100 % 0.0-0.9 [facility] Work Phone: Comment on above: IG% - Immature Granu locytes (promyelocytes, myelocytes and metamyelocytes) > 1% indicates that a LEFT SHIFT is Present. MCH (RBC) [Entitic mass] 33.7 pg 27.0-32.0 [facility] Work Phone: Nucleated RBC/100 WBC (Bld) [Ratio] 0 % 0-5 [facility] Work Phone: MCHC Auto (RBC) [Mass/Vol]on 11-08-2021 MCHC (RBC) [Mass/Vol] 35.4 g/dL 32-36 [facility] Work Phone: Mucus LM Ql (Urine sed)on Mucus Ql (Urine sed) 0 SEEN /hpf [facility] Work Phone: Nitrite Test strip Ql (U)on 11-08-2021 Nitrite Ql (U) Negative Negative [facility] Work Phone: No Panel Informationon 11-08 Estimated Creatinine Clearance Calc 55.89 ml/min [facility] Work Phone: Estimated GFR (MDRD) Amer 60 mL/min >60 [facility] Work Phone: Comment on above: GFR Calc Estimated GFR (MDRD) Non-Af Amer 49 mL/min >60 [facility] Work Phone: Comment on above: Non- GFR Calc Platelets bldon 11-08-2021 Platelets (Bld) [#/Vol] 142 10*3/uL 150-450 [facility] Work Phone: Protein Test strip Ql (U)on 11-08-2021 Protein Ql (U) Negative Negative [facility] Work Phone: Serum or plasma calcium raina urement (mass/volume)on 11-08-2021 Calcium [Mass/Vol] 8.5 mg/dL 8.5-10.1 [facility] Work Phone: Serum or plasma creatinine m easurement (mass/volume)on 11-08-2021 Creatinine [Mass/Vol] 1.56 mg/dL 0.70-1.30 [facility] Work Phone: Comment on above: The validity of the calculated GFR & GFRAA in patients over 70 years has not been determined. Clinical correlation is essential. Serum or plasma urea nitroge n measurement (mass/volume)on 11-08-2021 Urea nitrogen [Mass/Vol] 14 mg/dL 7-18 [facility] Work Phone: Squamous epithelial cells de tection in urine sediment by light microscopyon 11-08-2021 Epithelial cells.squamous LM Ql (Urine sed) 0 SEEN /hpf [facility] Work Phone: Thin prep Papanicolaou smear with manual screeningon 11-08-2021 Thin prep Papanicolaou smear with manual screening 6 5-15 [facility] Work Phone: Urine blood detectionon 10-21 RBC Ql (U) Negative Negative [facility] Work Phone: RBC Ql (U) 0 SEEN /hpf [facility] Work Phone: Urine clarityon 11-08-2021 Clarity (U) Clear Clear [facility] Work Phone: Urine color determinationon 11-08-2021 Color (U) Yellow Yellow [facility] Work Phone: Urine glucose detectionon Glucose Ql (U) Normal mg/dl Normal [facility] Work Phone: Urine leukocyte esterase det ection by dipstickon 11-08-2021 Leukocyte esterase Test strip Ql (U) Negative Negative [facility] Work Phone: Urine pHon 11-08-2021 pH (U) 5.0 [pH] [facility] Work Phone: Urine sediment bacteria coun t by microscopy (number/high power field)on 11-08-2021 Bacteria LM.HPF (Urine sed) [#/Area] 0 /[HPF] None Seen [facility] Work Phone: Urine specific gravity measu rementon 11-08-2021 Specific gravity (U) [Rel density] 1.005 [facility] Work Phone: Urobilinogen Auto test strip Ql (U)on 11-08-2021 Urobilinogen Ql (U) Normal mg/dl Normal [facility] Work Phone: CNCOon 09-26-2017 Erythrocyte distribution width Auto Ratio (RBC) Letter TextDaarmin MontalvoHealthsouth - [facility]estebna [address] [address]Mzxbp: [phone]# [id number] Rolando [id number] [facility] [address]Cctr Mr. Montalvo:We have been unsuccessful in reaching you by phone. Please call our office [phone] for further instructions. We have been trying to reach youregarding testing results and medication changes. Thank you.Sincerely,Cardiology Staff [facility] HOSPon 09-18-2017 HOSP Get Medical Advic e (AGCARDWST) ----BETH[facility] MONTALVO ([id number]) 1965 [facility] CANDELARIO ARELLANO AGCARDWST During your visit today, we recorded the following information about you:Candelario Arellano MD 09/19/2017 9:05 AM SignedDoes he have heart rates?Lon Cancino, RN, RN 09/19/2017 9:06 AM SignedSent via [employer].Tarun Cuello, RN, RN 09/20/2017 11:05 AM SignedLeft generic msg for patient to return call. See result note 09-18 as well.Tarun Cuello, RN, RN 09/25/2017 3:54 PM SignedPatient submitted heart rates, I have been unsuccessful getting him to call usregarding his result note.Candelario Arellano MD 09/25/2017 4:11 PM SignedBlood pressure and pulse are both high. Increase metoprolol to 100 milligramsin the morning and 50 in the evening. Call us with vital signs again in 2 weeks.Lon Cancino, RN, RN 09/25/2017 4:18 PM SignedLeft generic [...] Status:Closed by TARUN CUELLO on 09/20/17 [facility] CNOVon 09-10-2017 CNOV Office Visit (AGCARDWST) ----BETHANY MONTALVO ([id number]) 1965 MDate Time Provider Department09/10/17 3:30 PM [...] - N/ABeta mandy for ASHD with prior NV or prior LVEFANDlt;40 (NQF 0070) - N/ABeta [...] recently, but he has been drinking more. Theo check lipid profile, basic profile. I've asked him to check bloodpressures twice daily for the next week and call. We've can add a small dose ofLasix which will help with his volume and blood pressure.I will see him in 6 months or as needed.Written and verbal health teaching given to patient, patient verbalizesunderstanding and agrees with treatment plan.This note was generated using [employer] voice recognition system, and there may besome [...] edema. Pulses are intact and symmetrical.Records from [facility] were reviewed. Stress test showed no evidence ofischemia. Ejection fraction was normal.Echocardiogram showed normal ejection fraction. There was no evidence of acutecoronary syndrome.Electronically Signed:Candelario Arellano MDFeuary 2017 3:53 PMCC: Marjorie Cain MD 09/10/2017 [...] programs in your area.Referring Provider: CANDELARIO ARELLANO [[id number]]Allergies As of Date: 09/10/2017 Noted Allergy ReactionSUDAFED (PSEUDOEPHEDRINE) 06/26/2016 14 - Other: See Comments Comments: Prostate infectionDate Reviewed: 09/10/2017Reviewed by: India Bhatti - Fully AssessedReason for Visit: Follow Up [171]Primary Visit Diagnosis:Essential hypertension [I10] Other Visit Diagnoses:Chest pain, unspecified type [R07.9] Hypertension, essential [I10]Order(s):LIPID PANEL BASIC [SQLIPB] Order #: [id number] FUTURE ALT/SGPT [SQALT] Order #: [id number] FUTURE CK CREATINE KINASE [SQCK] Order #: [id number] FUTURE BASIC METABOLIC PNL [SQBMP] Order #: [id number] FUTUREPrescriptions as of 09/10/2017 Sig: OMEPRAZOLE 20 [...] way you eat. This is not a "diet". It is a way of life that [...] 09/10/17 [facility] PROGRESSon 09-10-2017 PROGRESS HNO ID: [id number] thor: Candelario Garcia: (none)Author Type: PhysicianType: Progress NotesFiled: 09/10/2017 4:16 PMNote Text:PERTINENT CARDIAC HISTORYChest pain - atypicalSyncope - vasodepressorHTNHLADHERENCE TO GUIDELINESACE-I or ARB for HF with prior LVEF<40 (NQF 0081) - N/AASA or Plavix for ASHD (NQF 0067) - N/ABeta mandy for ASHD with prior NV or prior LVEF<40 (NQF 0070) - N/ABeta [...] with treatment plan.This note was generated using [employer] voice recognition system, and theremay be some [...] SIGNS: BP 140/110 Pulse 64 Ht 5' 9" (1.75m) Wt 232 lb 6.4 oz(105.4kg) BMI [...] Trace edema. Pulses are intact andsymmetrical.Records from [facility] were reviewed. Stress test showed noevidence of ischemia. Ejection fraction was normal.Echocardiogram showed normal ejection fraction. There was no evidence ofacute coronary syndrome.Electronically Signed:Candelario Arellano MDbruary 2017 3:53 PMCC: Redd Tejeda MD [facility] Vital Signs Date Time Vital Sign Value Performing Clinician Facility 03-29-2025 10:50-0400 Body temperature 97.7 [degF] [employer] Work Phone: [facility] 03-29-2025 10:50-0400 Diastolic blood pressure 73 mm[Hg] [employer] Work Phone: [facility] 03-29-2025 10:50-0400 Heart rate 84 /min [facility] [employer] Work Phone: [facility] 03-29-2025 10:50-0400 Respiratory rate 16 /min [employer] [facility] Work Phone: [facility] 03-29-2025 10:50-0400 SaO2% (BldA) [Mass fraction] 97 % [employer] Work Phone: [facility] 03-29-2025 10:50-0400 Systolic blood pressure 132 mm[Hg] [facility] [employer] Work Phone: [facility] 03-29-2025 09:05-0400 Body height 177.8 cm [facility] [employer] Work Phone: [phone] [place] [address] 03-29-2025 09:05-0400 Body mass index (BMI) [Ratio] 30.3 kg/m2 [employer] Work Phone: [phone] [place] [address] 03-29-2025 09:05-0400 Body weight 96 kg [employer] Work Phone: [phone] [place] [address] 03-10-2025 20:51-0400 Body temperature 97.7 [degF] [employer] Work Phone: [phone] [place] [address] 03-10-2025 20:51-0400 Diastolic blood pressure 78 mm[Hg] [employer] Work Phone: 3(234)610-072777 [place] [address] 03-10-2025 20:51-0400 Heart rate 68 /min Keren Kwon [employer] Work Phone: 4(616)758-535077 [place] [address] 03-10-2025 20:51-0400 Respiratory rate 16 /min Keren Kwon [employer] Work Phone: 1(654)230-749277 [place] [address] 03-10-2025 20:51-0400 SaO2% (BldA) [Mass fraction] 96 % Keren Kwon [employer] Work Phone: 1(464)912-883477 [place] [address] 03-10-2025 20:51-0400 Systolic blood pressure 138 mm[Hg] Keren Kwon [employer] Work Phone: 5(312)[phone] [place] [address] 03-10-2025 17:30-0400 Body height 177.8 cm Keren Kwon [employer] Work Phone: 4(870)986-190777 [place] [address] 03-10-2025 17:30-0400 Body mass index (BMI) [Ratio] 30.2 kg/m2 Keren Kwon [employer] Work Phone: 8(448)398-659277 [place] [address] 03-10-2025 17:30-0400 Body weight 95.43 kg Keren Kwon [employer] Work Phone: 9(606)[phone] [place] [address] 03-09-2025 13:17-0400 Diastolic blood pressure 84 mm[Hg] Keren Kown [employer]UEST SERVICE TEAM LEADER.G[employer]ER Work Phone: [facility] 03-09-2025 13:17-0400 Heart rate 77 /min Keren Kwon GUEST SERVICE TEAM LEADER.G[employer]ITCHER Work Phone: [facility] 03-09-2025 13:17-0400 Respiratory rate 16 /min Keren Kwon GUEST SERVICE TEAM LEADER.G[employer] STITCHER Work Phone: [facility] 03-09-2025 13:17-0400 SaO2% (BldA) [Mass fraction] 96 % Keren Kwon GUEST SERVICE TEAM LEADER.G[employer] STITCHER Work Phone: [facility] 03-09-2025 13:17-0400 Systolic blood pressure 120 mm[Hg] Keren Kwon GUEST SERVICE TEAM LEADER.GORE STITCHER Work Phone: [facility] 03-05-2025 10:30-0400 Body temperature 97.9 [degF] Keren Kwon [employer] Work Phone: [facility] 03-05-2025 10:30-0400 Diastolic blood pressure 68 mm[Hg] Keren Menchacaagen [employer] Work Phone: [facility] 03-05-2025 10:30-0400 Heart rate 82 /min Keren Kwon [employer] Work Phone: [facility] 03-05-2025 10:30-0400 Respiratory rate 15 /min Keren Haagen [employer] Work Phone: [facility] 03-05-2025 10:30-0400 SaO2% (BldA) [Mass fraction] 99 % Keren Haagen [employer] Work Phone: [facility] 03-05-2025 10:30-0400 Systolic blood pressure 132 mm[Hg] Keren Haagen [employer] Work Phone: [facility] 03-05-2025 04:56-0400 Body mass index (BMI) [Ratio] 31.3 kg/m2 Keren Haagen [employer] Work Phone: [facility] 03-05-2025 04:56-0400 Body weight 99.1 kg Keren Haagen [employer] Work Phone: [facility] 03-04-2025 11:25-0400 Body height 177.8 cm Keren Haagen [employer] Work Phone: [facility] 03-03-2025 22:00-0400 Diastolic blood pressure 68 mm[Hg] Keren Haagen [employer] Work Phone: [facility] 03-03-2025 22:00-0400 Heart rate 100 /min Keren Haagen [employer] Work Phone: 7(351)265-650477 [place] [address] 03-03-2025 22:00-0400 Respiratory rate 18 /min Keren Haagen [employer] Work Phone: [facility] 03-03-2025 22:00-0400 SaO2% (BldA) [Mass fraction] 98 % Keren Haagen [employer] Work Phone: 6(934)721-261677 [place] [address] 03-03-2025 22:00-0400 Systolic blood pressure 103 mm[Hg] Keren Haagen [employer] Work Phone: 8(805)767-714077 [place] [address] 03-03-2025 21:11-0400 Body temperature 98.4 [degF] Keren Haagen [employer] Work Phone: 1(971)[phone] [place] [address] 03-03-2025 19:12-0400 Body height 177.8 cm Keren Haagen [employer] Work Phone: [facility] 03-03-2025 19:12-0400 Body mass index (BMI) [Ratio] 31 kg/m2 Keren Haagen [employer] Work Phone: 2(684)729-422387 [place] [address] 03-03-2025 19:12-0400 Body weight 98.2 kg Keren Haagen [employer] Work Phone: [facility] 02-09-2025 14:12-0400 Body mass index (BMI) [Ratio] 30.46 kg/m2 Gary VALLECILLO Work Phone: [facility] 02-09-2025 14:12-0400 Body temperature 98.6 [degF] Krislyn Aberegg PA Work Phone: [facility] 02-09-2025 14:12-0400 Body weight 96.3 kg Krislyn Aberegg PA Work Phone: [facility] 02-09-2025 14:12-0400 Diastolic blood pressure 78 mm[Hg] Krislyn Aberegg PA Work Phone: [facility] 02-09-2025 14:12-0400 Heart rate 77 /min Krislyn Aberegg PA Work Phone: [facility] 02-09-2025 14:12-0400 Respiratory rate 16 /min Krislyn Aberegg PA Work Phone: [facility] 02-09-2025 14:12-0400 SaO2% (BldA) [Mass fraction] 98 % Krislyn Aberegg PA Work Phone: [facility] 02-09-2025 14:12-0400 Systolic blood pressure 122 mm[Hg] Krislyn Aberegg PA Work Phone: [facility] 09-28-2024 15:34-0400 Body mass index (BMI) [Ratio] 29.13 kg/m2 Keren Haanne GUEST SERVICE TEAM LEADER.G[employer] STITCHER Work Phone: [facility] 09-28-2024 15:34-0400 Body weight 92.08 kg Keren Kwon GUEST SERVICE TEAM LEADER.G[employer] STITCHER Work Phone: [facility] 09-28-2024 15:34-0400 Diastolic blood pressure 80 mm[Hg] Keren Haagen GUEST SERVICE TEAM LEADER.G[employer] STITCHER Work Phone: [facility] 09-28-2024 15:34-0400 Heart rate 113 /min Keern Haagen GUEST SERVICE TEAM LEADER.G[employer] STITCHER Work Phone: [facility] 09-28-2024 15:34-0400 Respiratory rate 16 /min Keren Haagen GUEST SERVICE TEAM LEADER.G[employer] STITCHER Work Phone: [facility] 09-28-2024 15:34-0400 SaO2% (BldA) [Mass fraction] 96 % Keren Kwon APRN.GORE STITCHER Work Phone: [facility] 09-28-2024 15:34-0400 Systolic blood pressure 122 mm[Hg] Keren Kwon APRN.GORE STITCHER Work Phone: [facility] 09-28-2024 12:32-0400 Body height 177.8 cm Chris Devlin APRN.GORE STITCHER, DNP Work Phone: [facility] 09-28-2024 12:32-0400 Body mass index (BMI) [Ratio] 28.84 kg/m2 Chris Devlin APRN.GORE STITCHER, DNP Work Phone: [facility] 09-28-2024 12:32-0400 Body temperature 96.91 [degF] Chris Devlin APRN.GORE STITCHER, DNP Work Phone: [facility] 09-28-2024 12:32-0400 Body weight 91.17 kg Chris Devlin APRN.GORE STITCHER, DNP Work Phone: [facility] 09-28-2024 12:32-0400 Diastolic blood pressure 80 mm[Hg] Chris Devlin APRN.GORE STITCHER, DNP Work Phone: [facility] 09-28-2024 12:32-0400 Heart rate 80 /min Chris Devlin APRN.GORE STITCHER, DNP Work Phone: [facility] 09-28-2024 12:32-0400 Respiratory rate 18 /min Chris Devlin APRN.GORE STITCHER, DNP Work Phone: [facility] 09-28-2024 12:32-0400 SaO2% (BldA) [Mass fraction] 94 % Chris Devlin APRN.GORE STITCHER, DNP Work Phone: [facility] 09-28-2024 12:32-0400 Systolic blood pressure 118 mm[Hg] Chris Devlin APRN.GORE STITCHER, DNP Work Phone: [facility] 08-31-2024 15:33-0500 Diastolic blood pressure 97 mm[Hg] Keren Haagen GUEST SERVICE TEAM LEADER.GORE STITCHER Work Phone: [facility] 08-31-2024 15:33-0500 Heart rate 114 /min Keren Haagen GUEST SERVICE TEAM LEADER.GORE STITCHER Work Phone: [facility] 08-31-2024 15:33-0500 Systolic blood pressure 153 mm[Hg] Keren Haagen GUEST SERVICE TEAM LEADER.GORE STITCHER Work Phone: [facility] 08-31-2024 15:25-0500 Respiratory rate 16 /min Keren Haagen GUEST SERVICE TEAM LEADER.GORE STITCHER Work Phone: [facility] 08-31-2024 15:25-0500 SaO2% (BldA) [Mass fraction] 98 % Keren Haagen GUEST SERVICE TEAM LEADER.GORE STITCHER Work Phone: [facility] 08-24-2024 12:07-0500 Diastolic blood pressure 117 mm[Hg] Keren Haagen GUEST SERVICE TEAM LEADER.GORE STITCHER Work Phone: [facility] Comment on above: CHARLENE BP 08-24-2024 12:07-0500 Heart rate 132 /min Keren Haagen GUEST SERVICE TEAM LEADER.GORE STITCHER Work Phone: [facility] 08-24-2024 12:07-0500 Systolic blood pressure 179 mm[Hg] Keren Haagen GUEST SERVICE TEAM LEADER.GORE STITCHER Work Phone: [facility] Comment on above: CHARLENE BP 08-24-2024 11:27-0500 Respiratory rate 16 /min Keren Haagen GUEST SERVICE TEAM LEADER.GORE STITCHER Work Phone: [facility] 08-24-2024 11:27-0500 SaO2% (BldA) [Mass fraction] 97 % Keren Haagen GUEST SERVICE TEAM LEADER.GORE STITCHER Work Phone: [facility] 08-11-2024 14:03-0500 Body temperature 99.9 [degF] Keren Haagen GUEST SERVICE TEAM LEADER.GORE STITCHER Work Phone: [facility] 08-11-2024 13:43-0500 Diastolic blood pressure 86 mm[Hg] Keren Haagen GUEST SERVICE TEAM LEADER.GORE STITCHER Work Phone: [facility] 08-11-2024 13:43-0500 Systolic blood pressure 162 mm[Hg] Keren Haagen GUEST SERVICE TEAM LEADER.GORE STITCHER Work Phone: [facility] 08-11-2024 13:03-0500 Heart rate 120 /min Keren Haagen GUEST SERVICE TEAM LEADER.GORE STITCHER Work Phone: [facility] 08-11-2024 13:03-0500 Respiratory rate 16 /min Keren Haagen GUEST SERVICE TEAM LEADER.GORE STITCHER Work Phone: [facility] 08-11-2024 13:03-0500 SaO2% (BldA) [Mass fraction] 98 % Keren Haagen GUEST SERVICE TEAM LEADER.GORE STITCHER Work Phone: [facility] 07-13-2024 13:38-0500 Body mass index (BMI) [Ratio] 29 kg/m2 Rosa Moomaw GUEST SERVICE TEAM LEADER.GORE STITCHER Work Phone: [facility] 07-13-2024 13:38-0500 Body temperature 98.8 [degF] Rosa Moomaw GUEST SERVICE TEAM LEADER.GORE STITCHER Work Phone: [facility] 07-13-2024 13:38-0500 Body weight 94.3 kg Rosa Moomaw GUEST SERVICE TEAM LEADER.GORE STITCHER Work Phone: [facility] 07-13-2024 13:38-0500 Diastolic blood pressure 86 mm[Hg] Rosa Moomaw GUEST SERVICE TEAM LEADER.GORE STITCHER Work Phone: [facility] 07-13-2024 13:38-0500 Heart rate 111 /min Rosa Moomaw GUEST SERVICE TEAM LEADER.GORE STITCHER Work Phone: [facility] 07-13-2024 13:38-0500 Respiratory rate 18 /min Rosa Moomaw GUEST SERVICE TEAM LEADER.GORE STITCHER Work Phone: [facility] 07-13-2024 13:38-0500 SaO2% (BldA) [Mass fraction] 97 % Rosa Moomaw GUEST SERVICE TEAM LEADER.GORE STITCHER Work Phone: [facility] 07-13-2024 13:38-0500 Systolic blood pressure 150 mm[Hg] Rosa Moomaw GUEST SERVICE TEAM LEADER.GORE STITCHER Work Phone: [facility] 07-09-2024 16:56-0500 Body mass index (BMI) [Ratio] 29.89 kg/m2 Desmond Duncan GUEST SERVICE TEAM LEADER.G[employer] STITCHER Work Phone: [facility] 07-09-2024 16:56-0500 Body temperature 98.4 [degF] Desmond Duncan GUEST SERVICE TEAM LEADER.GORE STITCHER Work Phone: [facility] 07-09-2024 16:56-0500 Body weight 97.2 kg Desmond Duncan GUEST SERVICE TEAM LEADER.GORE STITCHER Work Phone: [facility] 07-09-2024 16:56-0500 Diastolic blood pressure 78 mm[Hg] Desmond Duncan GUEST SERVICE TEAM LEADER.GORE STITCHER Work Phone: [facility] 07-09-2024 16:56-0500 Heart rate 98 /min Desmond Duncan GUEST SERVICE TEAM LEADER.GORE STITCHER Work Phone: [facility] 07-09-2024 16:56-0500 Respiratory rate 18 /min Desmond Duncan GUEST SERVICE TEAM LEADER.GORE STITCHER Work Phone: [facility] 07-09-2024 16:56-0500 SaO2% (BldA) [Mass fraction] 97 % Desmond Duncan GUEST SERVICE TEAM LEADER.GORE STITCHER Work Phone: [facility] 07-09-2024 16:56-0500 Systolic blood pressure 128 mm[Hg] Desmond Duncan GUEST SERVICE TEAM LEADER.GORE STITCHER Work Phone: [facility] 06-22-2024 16:06-0500 Body height 180.3 cm Alma Delia Garza GUEST SERVICE TEAM LEADER.GORE STITCHER Work Phone: [facility] 06-22-2024 16:06-0500 Body mass index (BMI) [Ratio] 30.2 kg/m2 Alma Delia Larry GUEST SERVICE TEAM LEADER.GORE STITCHER Work Phone: [facility] 06-22-2024 16:06-0500 Body temperature 98.91 [degF] Alma Delia Garaz GUEST SERVICE TEAM LEADER.G[employer] STITCHER Work Phone: [facility] 06-22-2024 16:06-0500 Body weight 98.2 kg Alma Delia Larry GUEST SERVICE TEAM LEADER.GORE STITCHER Work Phone: [facility] 06-22-2024 16:06-0500 Diastolic blood pressure 92 mm[Hg] Alma Delia Larry GUEST SERVICE TEAM LEADER.GORE STITCHER Work Phone: [facility] 06-22-2024 16:06-0500 Heart rate 107 /min Alma Delia Larry GUEST SERVICE TEAM LEADER.GORE STITCHER Work Phone: [facility] 06-22-2024 16:06-0500 SaO2% (BldA) [Mass fraction] 94 % Alma Delia Larry GUEST SERVICE TEAM LEADER.GORE STITCHER Work Phone: [facility] 06-22-2024 16:06-0500 Systolic blood pressure 142 mm[Hg] Alma Delia Larry GUEST SERVICE TEAM LEADER.GORE STITCHER Work Phone: [facility] 06-12-2024 14:44-0500 Body mass index (BMI) [Ratio] 30.98 kg/m2 Keren Haagen GUEST SERVICE TEAM LEADER.GORE STITCHER Work Phone: [facility] 06-12-2024 14:44-0500 Body weight 97.07 kg Kerne Haagen GUEST SERVICE TEAM LEADER.GORE STITCHER Work Phone: [facility] 06-12-2024 14:44-0500 Diastolic blood pressure 92 mm[Hg] Keren Haagen GUEST SERVICE TEAM LEADER.GORE STITCHER Work Phone: [facility] 06-12-2024 14:44-0500 Heart rate 82 /min Keren Haagen GUEST SERVICE TEAM LEADER.GORE STITCHER Work Phone: [facility] 06-12-2024 14:44-0500 Respiratory rate 16 /min Keren Haagen GUEST SERVICE TEAM LEADER.GORE STITCHER Work Phone: [facility] 06-12-2024 14:44-0500 SaO2% (BldA) [Mass fraction] 96 % Keren Haagen GUEST SERVICE TEAM LEADER.GORE STITCHER Work Phone: [facility] 06-12-2024 14:44-0500 Systolic blood pressure 130 mm[Hg] Keren Haagen GUEST SERVICE TEAM LEADER.GORE STITCHER Work Phone: [facility] 10-14-2023 13:19-0400 Body height 177.8 cm [employer]S [employer] Keren Kwon [employer]S P[employer]ER Work Phone: [facility] 10-14-2023 13:19-0400 Body mass index (BMI) [Ratio] 27.9 kg/m2 [employer] Keren Kwon [employer]S PULLER Work Phone: [facility] 10-14-2023 13:19-0400 Body weight 88.45 kg [employer] P[employer]-C Keren Kwon PARTS PULLER Work Phone: [facility] 10-14-2023 13:19-0400 Diastolic blood pressure 91 mm[Hg] [employer] P[employer]-C Keren Kwon PARTS PULLER Work Phone: [facility] 10-14-2023 13:19-0400 Heart rate 90 /min [employer] Keren Kwon PARTS PULLER Work Phone: [facility] 10-14-2023 13:19-0400 Respiratory rate 18 /min [employer] Keren Kwon PARTS PULLER Work Phone: [facility] 10-14-2023 13:19-0400 Systolic blood pressure 132 mm[Hg] [employer] P[employer]C Keren Kwon PARTS PULLER Work Phone: [facility] 05-16-2023 11:50-0400 Body temperature 98.3 [degF] [employer] P[employer]C Vani Owen PARTS P[employer]ER Work Phone: [facility] 05-16-2023 11:50-0400 Diastolic blood pressure 104 mm[Hg] [employer]C Vani Owen [employer]S P[employer]ER Work Phone: [facility] 05-16-2023 11:50-0400 Heart rate 88 /min [employer] Vani Owen [employer]S P[employer]ER Work Phone: [facility] 05-16-2023 11:50-0400 Respiratory rate 18 /min [employer] Vani Owen [employer]S P[employer]ER Work Phone: [facility] 05-16-2023 11:50-0400 SaO2% (BldA) [Mass fraction] 99 % [employer] Vani Owen [employer]S P[employer]ER Work Phone: [facility] 05-16-2023 11:50-0400 Systolic blood pressure 142 mm[Hg] [employer]C Vani Owen [employer]S P[employer]ER Work Phone: [facility] 05-14-2023 16:04-0400 Body height 177.8 cm [employer] P[employer]C Vani Owen [employer]S P[employer]ER Work Phone: [facility] 05-14-2023 16:04-0400 Body weight 87.8 kg [employer] Vani Owen [employer]S P[employer]ER Work Phone: [facility] 05-13-2023 17:41-0400 Body mass index (BMI) [Ratio] 27.8 kg/m2 [employer] Vani Owen [employer]S P[employer]ER Work Phone: [facility] 05-13-2023 16:27-0400 Body temperature 98.7 [degF] [employer] Vani Owen PARTS P[employer]ER Work Phone: [facility] 05-13-2023 16:27-0400 Diastolic blood pressure 94 mm[Hg] [employer]C Vani Owen [employer]S PULLER Work Phone: [facility] 05-13-2023 16:27-0400 Heart rate 105 /min [employer] Vani Owen PARTS PULLER Work Phone: [facility] 05-13-2023 16:27-0400 Respiratory rate 18 /min [employer] Vani Owen [employer]S P[employer]ER Work Phone: [facility] 05-13-2023 16:27-0400 SaO2% (BldA) [Mass fraction] 95 % [employer] Vani Owen [employer]S P[employer]ER Work Phone: [facility] 05-13-2023 16:27-0400 Systolic blood pressure 144 mm[Hg] [employer]C Vani Owen [employer]S P[employer]ER Work Phone: [facility] 05-13-2023 10:52-0400 Body height 177.8 cm [employer] P[employer]C Vani Owen PARTS PULLER Work Phone: [facility] 05-13-2023 10:52-0400 Body mass index (BMI) [Ratio] 28.3 kg/m2 [employer] Vani Owen [employer]S P[employer]ER Work Phone: [facility] 05-13-2023 10:52-0400 Body weight 89.49 kg XUAN Owen NP Work Phone: [facility] 04-08-2023 09:32-0400 Body temperature 98.49 [degF] Henry Morrow MD Work Phone: [facility] 04-08-2023 09:32-0400 Body weight 94.26 kg Henry Morrow MD Work Phone: [facility] 04-08-2023 09:32-0400 Diastolic blood pressure 119 mm[Hg] Henry Morrow MD Work Phone: [facility] 04-08-2023 09:32-0400 Heart rate 89 /min Henry Morrow MD Work Phone: [facility] 04-08-2023 09:32-0400 Respiratory rate 20 /min Henry Morrow MD Work Phone: [facility] 04-08-2023 09:32-0400 SaO2% (BldA) [Mass fraction] 98 % Henry Morrow MD Work Phone: [facility] 04-08-2023 09:32-0400 Systolic blood pressure 198 mm[Hg] Henry Morrow MD Work Phone: [facility] 04-01-2023 14:06-0400 Body height 177.[address] Pema Yang Work Phone: [facility] 04-01-2023 14:06-0400 Body mass index (BMI) [Ratio] 29.8 kg/m2 Dr. Pema Yang Work Phone: [facility] 04-01-2023 14:06-0400 Body weight 94.[address] Pema Yang Work Phone: [facility] 04-01-2023 14:06-0400 Diastolic blood pressure 103 mm[Hg] Dr. Pema Yang Work Phone: [facility] 04-01-2023 14:06-0400 Heart rate 91 /min Dr. Pema Yang Work Phone: [facility] 04-01-2023 14:06-0400 Respiratory rate 20 /min Dr. Pema Yang Work Phone: [facility] 04-01-2023 14:06-0400 Systolic blood pressure 181 mm[Hg] Dr. Pema Yang Work Phone: [facility] 01-21-2023 15:27-0400 Diastolic blood pressure 103 mm[Hg] Keren Kwon GUEST SERVICE TEAM LEADER.GORE STITCHER Work Phone: [facility] 01-21-2023 15:27-0400 Heart rate 91 /min Keren Kwon GUEST SERVICE TEAM LEADER.GORE STITCHER Work Phone: [facility] 01-21-2023 15:27-0400 Systolic blood pressure 159 mm[Hg] Keren Kwon GUEST SERVICE TEAM LEADER.GORE STITCHER Work Phone: [facility] 01-21-2023 14:22-0400 Body weight 92.53 kg Keren Kwon GUEST SERVICE TEAM LEADER.GORE STITCHER Work Phone: [facility] 01-21-2023 14:22-0400 Respiratory rate 16 /min Keren Kwon GUEST SERVICE TEAM LEADER.GORE STITCHER Work Phone: [facility] 01-21-2023 14:22-0400 SaO2% (BldA) [Mass fraction] 97 % Kreen Kwon GUEST SERVICE TEAM LEADER.GORE STITCHER Work Phone: [facility] 01-09-2023 06:35-0400 Body height 177.[address] Pema Yang Work Phone: [facility] 01-09-2023 06:35-0400 Body mass index (BMI) [Ratio] 28.4 kg/m2 Dr. Pema Yang Work Phone: [facility] 01-09-2023 06:35-0400 Body temperature 97.2 [degF] Dr. Pema Yang Work Phone: 7(470)866-072493 [place] [address] 01-09-2023 06:35-0400 Body weight 89.[address] Pema Yang Work Phone: [facility] 01-09-2023 06:35-0400 Diastolic blood pressure 107 mm[Hg] Dr. Pema Yang Work Phone: [facility] 01-09-2023 06:35-0400 Heart rate 91 /min Dr. Pema Yang Work Phone: 8(448)637-057693 [place] [address] 01-09-2023 06:35-0400 Respiratory rate 18 /min Dr. Pema Yang Work Phone: 8(782)407-776593 [place] [address] 01-09-2023 06:35-0400 SaO2% (BldA) [Mass fraction] 97 % Dr. Pema Yang Work Phone: 0(889)[phone] [place] [address] 01-09-2023 06:35-0400 Systolic blood pressure 173 mm[Hg] Dr. Pema Yang Work Phone: 2(462)076-414093 [place] [address] 01-02-2023 11:14-0400 Diastolic blood pressure 86 mm[Hg] Dr. Pema Yang Work Phone: [facility] 01-02-2023 11:14-0400 Heart rate 82 /min Dr. Pema Yang Work Phone: [facility] 01-02-2023 11:14-0400 Respiratory rate 16 /min Dr. Pema Yang Work Phone: [facility] 01-02-2023 11:14-0400 SaO2% (BldA) [Mass fraction] 97 % Dr. Pema Yang Work Phone: 2(933)025-923393 [place] [address] 01-02-2023 11:14-0400 Systolic blood pressure 131 mm[Hg] Dr. Pema Yang Work Phone: 8(864)[phone] [place] [address] 01-02-2023 08:48-0400 Body mass index (BMI) [Ratio] 28.4 kg/m2 Dr. Pema Yang Work Phone: [facility] 01-02-2023 08:48-0400 Body temperature 96.8 [degF] Dr. Pema Yang Work Phone: [facility] 01-02-2023 08:48-0400 Body weight 89.[address] Pema Yang Work Phone: [facility] 12-24-2022 09:20-0400 Body mass index (BMI) [Ratio] 27.9 kg/m2 Dr. Pema Yang Work Phone: [facility] 12-24-2022 09:20-0400 Body weight 88.[address] Pema Yang Work Phone: [facility] 12-24-2022 09:20-0400 Diastolic blood pressure 100 mm[Hg] Dr. Pema Yang Work Phone: [facility] 12-24-2022 09:20-0400 Heart rate 96 /min Dr. Pema Yang Work Phone: [facility] 12-24-2022 09:20-0400 Respiratory rate 18 /min Dr. Pema Yang Work Phone: [facility] 12-24-2022 09:20-0400 SaO2% (BldA) [Mass fraction] 98 % Dr. Pema Yang Work Phone: [facility] 12-24-2022 09:20-0400 Systolic blood pressure 146 mm[Hg] Dr. Pema Yang Work Phone: [facility] 11-05-2022 13:39-0400 Body weight 93.44 kg Keren Kwon GUE[employer] SERVICE TEAM LEADER.G[employer]ITCHER Work Phone: [facility] 11-05-2022 13:39-0400 Diastolic blood pressure 102 mm[Hg] Keren Kwon GUEST SERVICE TEAM LEADER.GORE STITCHER Work Phone: [facility] 11-05-2022 13:39-0400 Heart rate 76 /min Keren Kwon GUEST SERVICE TEAM LEADER.GORE STITCHER Work Phone: [facility] 11-05-2022 13:39-0400 Respiratory rate 18 /min Keren Haagen GUEST SERVICE TEAM LEADER.GORE STITCHER Work Phone: [facility] 11-05-2022 13:39-0400 SaO2% (BldA) [Mass fraction] 97 % Keren Haagen GUEST SERVICE TEAM LEADER.GORE STITCHER Work Phone: [facility] 11-05-2022 13:39-0400 Systolic blood pressure 158 mm[Hg] Keren Haagen GUEST SERVICE TEAM LEADER.GORE STITCHER Work Phone: [facility] 06-25-2022 17:52-0500 Body temperature 98.49 [degF] Ziggy Itz GUEST SERVICE TEAM LEADER.GORE STITCHER Work Phone: [facility] 06-25-2022 17:52-0500 Body weight 98.88 kg Ziggy Itz GUEST SERVICE TEAM LEADER.GORE STITCHER Work Phone: [facility] 06-25-2022 17:52-0500 Diastolic blood pressure 72 mm[Hg] Ziggy Itz GUEST SERVICE TEAM LEADER.GORE STITCHER Work Phone: [facility] 06-25-2022 17:52-0500 Heart rate 122 /min Ziggy Itz GUEST SERVICE TEAM LEADER.GORE STITCHER Work Phone: [facility] 06-25-2022 17:52-0500 Respiratory rate 20 /min Ziggy Itz GUEST SERVICE TEAM LEADER.GORE STITCHER Work Phone: [facility] 06-25-2022 17:52-0500 SaO2% (BldA) [Mass fraction] 98 % Ziggy Itz GUEST SERVICE TEAM LEADER.GORE STITCHER Work Phone: [facility] 06-25-2022 17:52-0500 Systolic blood pressure 122 mm[Hg] Ziggy Itz GUEST SERVICE TEAM LEADER.GORE STITCHER Work Phone: [facility] 06-05-2022 13:38-0500 Body temperature 98.01 [degF] Rebecca Jaycob GUEST SERVICE TEAM LEADER.GORE STITCHER Work Phone: [facility] 06-05-2022 13:38-0500 Body weight 97.98 kg Rebecca Jaycob GUEST SERVICE TEAM LEADER.GORE STITCHER Work Phone: [facility] 06-05-2022 13:38-0500 Diastolic blood pressure 82 mm[Hg] Rebecca Mercedesk GUEST SERVICE TEAM LEADER.GORE STITCHER Work Phone: [facility] 06-05-2022 13:38-0500 Heart rate 92 /min Rebecca Devries GUEST SERVICE TEAM LEADER.GORE STITCHER Work Phone: [facility] 06-05-2022 13:38-0500 Respiratory rate 16 /min Rebecca Devries GUEST SERVICE TEAM LEADER.GORE STITCHER Work Phone: [facility] 06-05-2022 13:38-0500 SaO2% (BldA) [Mass fraction] 98 % Rebecca Devries GUEST SERVICE TEAM LEADER.GORE STITCHER Work Phone: [facility] 06-05-2022 13:38-0500 Systolic blood pressure 132 mm[Hg] Rebecca Mercedesk GUEST SERVICE TEAM LEADER.GORE STITCHER Work Phone: [facility] 02-23-2022 09:18-0400 Body weight 92.99 kg Keren Kwon GUEST SERVICE TEAM LEADER.GORE STITCHER Work Phone: [facility] 02-23-2022 09:18-0400 Diastolic blood pressure 100 mm[Hg] Keren Haagen GUEST SERVICE TEAM LEADER.GORE STITCHER Work Phone: [facility] 02-23-2022 09:18-0400 Heart rate 114 /min Keren Kwon GUEST SERVICE TEAM LEADER.GORE STITCHER Work Phone: [facility] 02-23-2022 09:18-0400 SaO2% (BldA) [Mass fraction] 98 % Keren Kwon GUEST SERVICE TEAM LEADER.GORE STITCHER Work Phone: [facility] 02-23-2022 09:18-0400 Systolic blood pressure 150 mm[Hg] Keren Haagen GUEST SERVICE TEAM LEADER.GORE STITCHER Work Phone: [facility] 02-19-2022 15:00-0400 Body temperature 98.2 [degF] Ziggy Mobley GUEST SERVICE TEAM LEADER.GORE STITCHER Work Phone: [facility] 02-19-2022 15:00-0400 Body weight 92.44 kg Ziggy Itz GUEST SERVICE TEAM LEADER.GORE STITCHER Work Phone: [facility] 02-19-2022 15:00-0400 Diastolic blood pressure 110 mm[Hg] Ziggy Itz GUEST SERVICE TEAM LEADER.GORE STITCHER Work Phone: [facility] 02-19-2022 15:00-0400 Heart rate 93 /min Ziggy Itz GUEST SERVICE TEAM LEADER.GORE STITCHER Work Phone: [facility] 02-19-2022 15:00-0400 Respiratory rate 21 /min Ziggy Itz GUEST SERVICE TEAM LEADER.GORE STITCHER Work Phone: [facility] 02-19-2022 15:00-0400 SaO2% (BldA) [Mass fraction] 100 % Ziggy Itz GUEST SERVICE TEAM LEADER.GORE STITCHER Work Phone: [facility] 02-19-2022 15:00-0400 Systolic blood pressure 150 mm[Hg] Ziggy Itz GUEST SERVICE TEAM LEADER.GORE STITCHER Work Phone: [facility] 11-15-2021 13:43-0400 Diastolic blood pressure 92 mm[Hg] Keren Haagen GUEST SERVICE TEAM LEADER.GORE STITCHER Work Phone: [facility] 11-15-2021 13:43-0400 Heart rate 97 /min Keren Haagen GUEST SERVICE TEAM LEADER.GORE STITCHER Work Phone: [facility] 11-15-2021 13:43-0400 Respiratory rate 18 /min Keren Haagen GUEST SERVICE TEAM LEADER.GORE STITCHER Work Phone: [facility] 11-15-2021 13:43-0400 SaO2% (BldA) [Mass fraction] 97 % Keren Haagen GUEST SERVICE TEAM LEADER.GORE STITCHER Work Phone: [facility] 11-15-2021 13:43-0400 Systolic blood pressure 118 mm[Hg] Keren Haagen GUEST SERVICE TEAM LEADER.GORE STITCHER Work Phone: [facility] 11-08-2021 17:43-0400 Body height 177.8 cm [facility] Work Phone: 11-08-2021 17:43-0400 Body mass index (BMI) [Ratio] 33 kg/m2 [facility] Work Phone: 11-08-2021 17:43-0400 Body temperature 97.4 [degF] [facility] Work Phone: 11-08-2021 17:43-0400 Body weight 104.32 kg [facility] Work Phone: 11-08-2021 17:43-0400 Diastolic blood pressure 80 mm[Hg] [facility] Work Phone: 11-08-2021 17:43-0400 Heart rate 103 /min [facility] Work Phone: 11-08-2021 17:43-0400 Respiratory rate 18 /min [facility] Work Phone: 11-08-2021 17:43-0400 SaO2% (BldA) [Mass fraction] 97 % [facility] Work Phone: 11-08-2021 17:43-0400 Systolic blood pressure 129 mm[Hg] [facility] Work Phone: 11-01-2021 15:31-0400 Body height 177 cm Keren Haagen GUEST SERVICE TEAM LEADER.GORE STITCHER Work Phone: [facility] 11-01-2021 15:31-0400 Body weight 96.62 kg Keren Haagen GUEST SERVICE TEAM LEADER.GORE STITCHER Work Phone: [facility] 11-01-2021 15:31-0400 Diastolic blood pressure 96 mm[Hg] Keren Haagen GUEST SERVICE TEAM LEADER.GORE STITCHER Work Phone: [facility] 11-01-2021 15:31-0400 Heart rate 103 /min Keren Haagen GUEST SERVICE TEAM LEADER.GORE STITCHER Work Phone: [facility] 11-01-2021 15:31-0400 Respiratory rate 18 /min Keren Haagen GUEST SERVICE TEAM LEADER.GORE STITCHER Work Phone: [facility] 11-01-2021 15:31-0400 SaO2% (BldA) [Mass fraction] 96 % Keren Haagen GUEST SERVICE TEAM LEADER.GORE STITCHER Work Phone: [facility] 11-01-2021 15:31-0400 Systolic blood pressure 118 mm[Hg] Keren Kwon APRN.CNP Work Phone: [facility] Encounters Encounter Date Encounter Type Care Provider Facility Start: 05-05-2025 End: 05-05-2025 ambulatory Keren Kwon PARTS PULLER Facility:[facility] Start: 03-29-2025 ambulatory Julius Lovell Facility :[facility] Start: 03-29-2025 Non-patient / Non-visit Julius Gilliam nd DO -[facility] Start: 03-29-2025 End: 03-29-2025 Admission to same day surgery center Julius Lovell DO -Endoscopy Work Phone: Start: 03-29-2025 End: 03-29-2025 ambulatory Keren Kwon PARTS PULLER-C Work Phone: -Endoscopy Start: 03-16-2025 End: 03-16-2025 Refill Keren Kwon APRN.CNP Work Phone: [facility] [place] Comment on above: Refill Request Start: 03-10-2025 End: 03-10-2025 Emergency department patient visit Keren Kwon PARTS PULLER-Ang Work Phone: -Emergency Department Work Phone: Start: 03-10-2025 End: 03-10-2025 Follow-up encounter Keren Kwon APRN.CNP Work Phone: [facility] [place] Start: 03-10-2025 End: 03-10-2025 Telephone encounter Ivonne Abbott MD Work Phone: Internal Med/Marine Fisheries Technician [place] Start: 03-09-2025 End: 03-09-2025 ambulatory KEREN KWON Facility:[facility] Start: 03-09-2025 End: 03-09-2025 Office outpatient visit 25 minutes Keren Kwon APRN.CNP Work Phone: [facility] [place] Comment on above: Non-traumatic rhabdo myolysis (Primary Dx); LUZ MARIA (acute kidney injury); Alcohol use, unspecified, in remission; Diarrhea, unspecified type; Dehydration Start: 03-09-2025 End: 03-09-2025 ambulatory [facility] Facility:[facility] Start: 03-07-2025 End: 03-08-2025 Refill Keren Haagen GUEST SERVICE TEAM LEADER.GORE STITCHER Work Phone: [facility] Comment on above: Refill Request Start: 03-05-2025 Non-patient / Non-visit Dr. Jatin Mcgraw MD -[facility] Work Phone: Start: 03-04-2025 Non-patient / Non-visit Dr. Jatin Mcgraw MD -[facility] Work Phone: Start: 03-03-2025 ambulatory Keren Kwon PARTS PULLER Facil ity:[facility] Start: 03-03-2025 End: 03-05-2025 Evaluation and management of inpatient Dr. Michela Murillo [facility] Work Phone: Start: 02-09-2025 End: 02-09-2025 Patient encounter procedure Gary VALLECILLO Work Phone: [facility] [place] Comment on above: Lower abdominal pain (Primary Dx); Diarrhea, unspecified type Start: 02-09-2025 End: 02-09-2025 [facility] Start: 02-01-2025 End: 02-01-2025 Refill Keren Haagen GUEST SERVICE TEAM LEADER.GORE STITCHER Work Phone: [facility] Comment on above: Refill Request Start: 01-19-2025 End: 01-19-2025 Refill Keren Haagen GUEST SERVICE TEAM LEADER.GORE STITCHER Work Phone: [facility] Comment on above: Refill Request Start: 12-22-2024 End: 12-22-2024 Refill Keren Haagen GUEST SERVICE TEAM LEADER.GORE STITCHER Work Phone: [facility] Comment on above: Refill Request Start: 12-11-2024 End: 12-11-2024 [facility] Facility:[facility] Start: 11-30-2024 ambulatory Keren anne PARTS PULLER Facil ity:[facility] Start: 11-24-2024 End: 11-24-2024 Refill Keren Haagen GERARDO.CHRISTIANA Work Phone: [facility] [place] Comment on above: Refill Request Start: 10-08-2024 End: 12-08-2024 Follow-up encounter Chris Devlin APRN.CNP, DNP Work Phone: Urology Start: 10-07-2024 End: 10-07-2024 ambulatory [facility] Facility:[facility] Start: 10-07-2024 End: 10-07-2024 Patient encounter procedure Juarez Hernández DO Work Phone: [facility] [place] Comment on above: Medial epicondylitis , right elbow (Primary Dx); Elbow pain, right Start: 10-02-2024 End: 10-02-2024 Refill Keren Haagen GUEST SERVICE TEAM LEADER.CHRISTIANA Work Phone: Family [facility] [place] Comment on above: Refill Request Start: 09-29-2024 End: 09-29-2024 Refill Keren Nikolaiagen GERARDO.CHRISTIANA Work Phone: [facility] [place] Comment on above: Refill Request Start: 09-28-2024 End: 09-28-2024 [facility] Facility:[facility] Start: 09-28-2024 End: 09-28-2024 Office outpatient [...] depression; Chronic insomnia Start: 09-28-2024 End: 09-28-2024 [facility] Start: 09-25-2024 End: 09-25-2024 Telephone encounter Chris Devlin APRN.CNP, DNP Work Phone: Urology Comment on above: Appointment Start: 08-31-2024 End: 08-31-2024 Office outpatient visit 25 minutes Keren Kwon APRN.GORE STITCHER Work Phone: [facility] [place] Comment on above: Hypertension, essent ial (Primary Dx); Current severe episode of major depressive disorder without psychotic features, unspecified whether recurrent (HCC); Alcohol abuse; Acute pain of left knee Start: 08-31-2024 End: 08-31-2024 ambulatory [facility] Facility:[facility] Start: 08-28-2024 End: 08-31-2024 Telephone encounter Keren Kwon APRN.GORE STITCHER Work Phone: [facility] [place] Comment on above: Results Start: 08-27-2024 End: 08-27-2024 ambulatory [facility] Facility:[facility] Start: 08-27-2024 End: 08-27-2024 Subsequent hospital visit by physician [facility] Work Phone: Radiology Comment on above: Elevated alkaline ph osphatase level [R74.8] Start: 08-24-2024 End: 08-24-2024 Office outpatient visit 25 minutes Keren Kwon APRN.GORE STITCHER Work Phone: [facility] [place] Comment on above: Acute pain of left k nee (Primary Dx); Hx of non-ST elevation myocardial infarction (NSTEMI); Hypertension, unspecified type; Elevated alkaline phosphatase level; Elevated PSA; Acute gout of left knee, unspecified cause; Chronic alcohol abuse Start: 08-24-2024 End: 08-24-2024 ambulatory [facility] Facility:[facility] Start: 08-19-2024 End: 08-20-2024 Refill Keren Kwon APRN.GORE STITCHER Work Phone: [facility] [place] Comment on above: Refill Request Start: 08-12-2024 End: 08-21-2024 Telephone encounter Keren Kwon APRN.GORE STITCHER Work Phone: [facility] [place] Comment on above: Results Start: 08-11-2024 End: 08-11-2024 Subsequent hospital visit by physician Maylin [facility] [place] Work Phone: Radiology Comment on above: Acute pain of left k nee [M25.562] Start: 08-11-2024 End: 08-11-2024 Office outpatient visit 25 minutes Keren Kwon GUEST SERVICE TEAM LEADER.GORE STITCHER Work Phone: [facility] Comment on above: Acute pain of left k nee (Primary Dx); Moderate hypertension Start: 08-11-2024 End: 08-11-2024 ambulatory [facility] Facility:[facility] Start: 08-07-2024 End: 08-07-2024 Telephone encounter Keren Kwon GUEST SERVICE TEAM LEADER.GORE STITCHER Work Phone: [facility] Comment on above: Results Start: 08-05-2024 End: 08-05-2024 ambulatory [facility] Facility:[facility] Start: 07-23-2024 End: 07-23-2024 Emergency department patient visit [facility] Facility:[facility] Start: 07-21-2024 End: 07-21-2024 Refill Keren Nikolaiagen GUEST SERVICE TEAM LEADER.GORE STITCHER Work Phone: [facility] Comment on above: Refill Request Start: 07-13-2024 End: 07-13-2024 ambulatory No Pcp GUEST SERVICE TEAM LEADER [facility] Start: 07-13-2024 End: 07-13-2024 Patient encounter procedure No Pcp GUEST SERVICE TEAM LEADER [facility] Comment on above: Acute cough (Primary Dx) Start: 07-13-2024 End: 07-13-2024 Subsequent hospital visit by physician Maylin [facility] Work Phone: Radiology Comment on above: Acute cough [R05.1] Start: 07-10-2024 End: 07-10-2024 Refill Keren Haagen GUEST SERVICE TEAM LEADER.GORE STITCHER Work Phone: [facility] Comment on above: Refill Request Start: 07-09-2024 End: 07-09-2024 Subsequent hospital visit by physician Xr [facility] Work Phone: Radiology Comment on above: Injury of right elbo w, initial encounter [S59.901A] Start: 07-09-2024 End: 07-09-2024 ambulatory [facility] Facility:[facility] Start: 07-09-2024 End: 07-09-2024 Office outpatient visit 15 minutes Desmond Duncan APRN.GORE STITCHER Work Phone: [facility] Comment on above: Sore throat (Primary Dx); Injury of right elbow, initial encounter; Viral illness Start: 07-09-2024 End: 07-12-2024 Telephone encounter Desmond Duncan APRN.GORE STITCHER Work Phone: [facility] Comment on above: Results Start: 06-29-2024 ambulatory Keren Kwon [employer]S PULLER Facil ity:[facility] Start: 06-22-2024 End: 06-22-2024 ambulatory [facility] Facility:[facility] Start: 06-22-2024 End: 06-22-2024 Patient encounter procedure Alma Delia Garza APRN.GORE STITCHER Work Phone: General Surgery Comment on above: Family hx of colon c ancer (Primary Dx); Screening for colon cancer; Hx of colonic polyps Start: 06-22-2024 End: 06-23-2024 Telephone encounter Alma Delia Garza APRN.GORE STITCHER Work Phone: General Surgery Start: 06-12-2024 End: 06-12-2024 Office outpatient visit 25 minutes Keren Kwon APRN.GORE STITCHER Work Phone: [facility] Comment on above: Coronary artery dise ase due to lipid rich plaque (Primary Dx); Encounter for immunization; Hypertriglyceridemia; GERD without esophagitis; Anxiety and depression; Hypomagnesemia; Chronic alcohol abuse; Chronic insomnia; Acute right-sided low back pain without sciatica; Moderate hypertension; Screening for prostate cancer; Screening for colon cancer; Bilateral carotid artery stenosis Start: 06-12-2024 End: 06-12-2024 [facility] Start: 10-14-2023 End: 10-14-2023 ambulatory [employer]S P[employer]ER-C Keren Kwon PARTS PULLER Work Phone: [facility] Work Phone: Start: 10-14-2023 End: 10-14-2023 Patient encounter procedure PARTS PULLER-Ang Kwon PARTS PULLER Work Phone: [facility] Work Phone: Start: 05-15-2023 Non-patient / Non-visit [employer] [facility]-C Harjinder Owen PARTS PULLER Work Phone: [facility] Work Phone: Start: 05-14-2023 Non-patient / Non-visit [employer]-C Harjinder Owen PARTS PULLER Work Phone: [facility] Work Phone: Start: 05-13-2023 Non-patient / Non-visit [employer]-C Harjinder Owen PARTS PULLER Work Phone: [facility] Work Phone: Start: 05-13-2023 End: 05-16-2023 Evaluation and management of inpatient [employer]S PULLER-C Vani Owen PARTS PULLER Work Phone: [facility]-Medical Surgical 3 Work Phone: Start: 04-09-2023 Telephone encounter Henry Espinosa MD Work Phone: Urgent Care Comment on above: Results Start: 04-08-2023 End: 04-08-2023 Patient encounter procedure Henry Morrow MD Work Phone: [facility] Comment on above: Influenza-like illne ss (Primary Dx); Hypertension, essential Start: 04-02-2023 Non-patient / Non-visit Dr. Alberto Yang Work Phone: [facility] Start: 04-01-2023 End: 04-01-[address] Pema Yang Work Phone: [facility] Work Phone: Start: 04-01-2023 End: 04-01-[address] Pema Yang Work Phone: [facility] Work Phone: Start: 02-11-2023 Non-patient / Non-visit Dr. Alberto Yang Work Phone: [facility] Start: 02-11-2023 End: 02-11-[address] Pema Yang Work Phone: [facility] Work Phone: Start: 02-11-2023 End: 02-11-[address] Pema Yang Work Phone: [facility]Cardiovascul [facility] Services Work Phone: Start: 01-21-2023 End: 01-21-2023 Office outpatient visit 25 minutes Keren Kwon APRN.GORE STITCHER Work Phone: [facility] Comment on above: Chest pain, unspecif ied type (Primary Dx); 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; Acute right-sided low back pain without sciatica; Hypertension, essential; Thrombocytopenia (HCC); Chronic alcohol abuse Start: 01-17-2023 End: 01-17-[address] Pema Yang Work Phone: [facility] Work Phone: Start: 01-17-2023 End: 01-17-[address] Pema Yang Work Phone: [facility] Work Phone: Start: 01-09-2023 End: 01-09-[address] Pema Yang Work Phone: [facility]-Pulmonary Medicine [facility] Work Phone: Start: 01-02-2023 End: 01-02-2023 Emergency department patient visit Dr. Pema Yang Work Phone: [facility]-Emergency Department Work Phone: Start: 12-26-2022 Telephone encounter Keren rodríguez APRN.GORE STITCHER Work Phone: [facility] Comment on above: Results Start: 12-24-2022 End: 12-24-[address] Pema Yang Work Phone: [facility] Work Phone: Start: 11-05-2022 End: 11-05-2022 Office outpatient visit 25 minutes Keren Kwon APRN.GORE STITCHER Work Phone: Family [facility] [place] Comment on above: Hypertension, essent ial (Primary Dx); GERD without esophagitis; Acute right-sided low back pain without sciatica; Anxiety and depression; Hypertriglyceridemia; Chronic alcohol abuse; 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; Renal insufficiency; Special screening examination for viral disease; Chronic insomnia; Bilateral carotid artery stenosis Start: 06-25-2022 End: 06-25-2022 Subsequent hospital visit by physician Xr [facility] [place] Work Phone: Radiology Comment on above: Foot pain, right [M7 9.671] Start: 06-25-2022 End: 06-25-2022 Patient encounter procedure Ziggy Mobley APRN.GORE STITCHER Work Phone: [facility] Comment on above: Foot pain, right (Pr imary Dx) Start: 06-05-2022 End: 06-05-2022 Patient encounter procedure Rebecca Devries APRN.GORE STITCHER Work Phone: [facility] Comment on above: Body aches (Primary Dx); Flu-like symptoms Start: 03-28-2022 Refill Keren Kwon APRN.GORE STITCHER Work Phone: Family [facility] [place] Comment on above: Refill Request Start: 02-23-2022 Telephone encounter Mikhail Mancia MD Work Phone: Family [facility] Comment on above: Results Start: 02-23-2022 End: 02-23-2022 Office outpatient visit 15 minutes Keren Kwon APRN.GORE STITCHER Work Phone: Family [facility] [place] Comment on above: Sinobronchitis (Prim braeden Dx); Anxiety and depression; Hypertension, essential; Hypertriglyceridemia; Chronic alcohol abuse; Chest pain, unspecified type; 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; Chronic insomnia; GERD without esophagitis; Acute right-sided low back pain without sciatica; Dermatitis Start: 02-19-2022 End: 02-19-2022 [facility] Comment on above: Acute cough [R05.1] Start: 02-19-2022 End: 02-19-2022 Patient encounter procedure Ziggy Mobley APRN.CNP Work Phone: [facility] Comment on above: Acute cough (Primary Dx); Hypertension, essential; URI, acute Start: 11-15-2021 End: 11-15-2021 Patient encounter procedure Keren Kwon APRN.GORE STITCHER Work Phone: [facility] [place] Comment on above: Upper back pain (Mary danish Dx); Function kidney decreased Start: 11-09-2021 Telephone encounter M Kar Young PA-C Work Phone: [facility] Comment on above: Results report from [facility] Start: 11-08-2021 End: 11-08-2021 Emergency department patient visit [facility]Emergency Department Start: 11-08-2021 ambulatory Haris Dawkins RN [facility] Start: 11-08-2021 Patient encounter procedure Haris Dawkins RN NURSE RUBBER MOULDING MACHINE OPERATOR Comment on above: Referral Request Start: 11-08-2021 Telephone encounter Keren rodríguez APRN.GORE STITCHER Work Phone: Family [facility] Comment on above: Results Start: 11-01-2021 End: 11-01-2021 Patient encounter procedure Keren Kwon APRN.GORE STITCHER Work Phone: [facility] Comment on above: Chest pain, unspecif [...] disorders Start: 03-18-2018 Ambulatory CANDELARIO ARELLANO Facility :[facility] Start: 09-10-2017 End: 09-10-2017 Ambulatory CANDELARIO ARELLANO [facility] Procedures Date Procedure Procedure Detail Performing Clinician Start: 03-29-2025 Colonoscopy Keren Kwon [employer]ER-C Work Phone: Start: 03-10-2025 Estimated creatinine clearance Keren Menchacaagen [employer] P[employer]ER-C Work Phone: Start: 03-05-2025 Estimated creatinine clearance Keren Menchacaagen [employer] P[employer]ER-C Work Phone: Start: 03-05-2025 Serum inorganic phosphate measurement Keren Haagen [employer]S PULLER-C Work Phone: Start: 03-04-2025 Clostridium difficile detection Keren Menchacaagen PARTS PULLER-C Work Phone: Start: 03-04-2025 Lactoferrin measurement Keren Kwon N P-C Work Phone: Start: 03-04-2025 Nucleic acid assay Keren Menchacaagen [employer]S P[employer]ER-C Work Phone: Start: 03-04-2025 Iadna-dna/rna gi pthgn multiplex probe tq 6-11 Keren Menchacaagen [employer]S P[employer]ER-C Work Phone: Start: 03-03-2025 Urnls dip stick/tablet reagent auto microscopy Keren Haagen [employer]S P[employer]ER[employer]C Work Phone: Start: 03-03-2025 Plain chest X-ray Keren Kwon [employer]S P[employer]ER-C Work Phone: Start: 03-03-2025 CT of head without contrast Keren Menchacaagen [employer]S P[employer]ER-C Work Phone: Start: 03-03-2025 Estimated creatinine clearance Keren Menchacaagen [employer]S P[employer]ER[employer]C Work Phone: Start: 10-07-2024 Injection single tendon origin/insertion Juarez Hernández DO Work Phone: Start: 09-28-2024 Urnls dip stick/tablet rgnt auto w/o microscopy Chris Devlin GUEST SERVICE TEAM LEADER.GORE STITCHER, DNP Work Phone: Start: 02-06-2025 Us abdominal real time w/image limited Keren Kwon GUEST SERVICE TEAM LEADER.GORE STITCHER Work Phone: Start: 08-05-2024 Lipid 1996 panel - Serum or Plasma Keren Kwon GUEST SERVICE TEAM LEADER.GORE STITCHER Work Phone: Start: 07-13-2024 Radiologic exam chest 2 views Rosa Wade GUEST SERVICE TEAM LEADER.GORE STITCHER Work Phone: Start: 07-09-2024 Radex elbow complete minimum 3 views Desmond Perla GUEST SERVICE TEAM LEADER.GORE STITCHER Work Phone: Start: 07-09-2024 STREP A MOLECULAR (POC) Rocio Messina GUEST SERVICE TEAM LEADER.GORE STITCHER Work Phone: Start: 05-13-2023 Nucleic acid assay [employer] P[employer]ER[employer] Vani Le P Work Phone: Start: 05-13-2023 US scan of gallbladder [employer]S P[employer]ER[employer]C Vani lloyd PARTS PULLER Work Phone: Start: 05-13-2023 CT of abdomen and pelvis without contrast [employer]S P[employer]ER[employer]C Vnai Owen PARTS PULLER Work Phone: Start: 02-11-2023 Radionuclide imaging of [...] foot complete minimum 3 views Ziggy Mobley GUEST SERVICE TEAM LEADER.GORE STITCHER Work Phone: Start: 02-19-2022 Radiologic exam chest 2 views Ziggy Mobley GUEST SERVICE TEAM LEADER.GORE STITCHER Work Phone: Start: 11-08-2021 CT of abdomen and pelvis without contrast Start: 01-12-2019 Saw Kwon APRN.GORE STITCHER Work Phone: H/O: surgery Hx of eye surgery History of tonsillectomy History of tonsi llectomy Plan of Treatment Date Care Activity Detail Author Start: 12-30-2031 Pneumococcal vaccination Pneumococcal Vaccine (3 of 3 - PPSV23 or PCV20) [facility] Start: 03-09-2030 Prostate specific antigen measurement Prostate Cancer Screening Discussion [facility] Start: 10-07-2029 Prostate specific antigen measurement Prostate Cancer Screening Discussion [facility] Start: 08-11-2029 Prostate specific antigen measurement Prostate Cancer Screening Discussion [facility] Start: 08-05-2029 Lipid panel Lipid Screening [facility] Start: 08-05-2029 Prostate specific antigen measurement Prostate Cancer Screening Discussion [facility] Start: 03-09-2028 Diabetes Screening Diabetes Screening [facility] Start: 11-06-2027 Lipid 1996 panel - Serum or Plasma Lipid Screening [facility] Start: 11-06-2027 Lipid panel Lipid Screening [facility] Start: 11-06-2027 LIPID SCREEN LIPID SCREEN [facility] Start: 08-11-2027 Diabetes Screening Diabetes Screening [facility] Start: 08-05-2027 Diabetes Screening Diabetes Screening [facility] Start: 02-21-2027 LIPID SCREEN LIPID SCREEN [facility] Start: 11-07-2026 LIPID SCREEN LIPID SCREEN [facility] Start: 07-10-2026 Urine microalbumin profile [facility] Start: 03-09-2026 Annual PCP Team Chronic Disease Visit Annual PCP Team Chronic Disease Visit [facility] Start: 12-11-2025 Annual PCP Team Chronic Disease Visit Annual PCP Team Chronic Disease Visit [facility] Start: 11-05-2025 DIABETES SCREEN DIABETES SCREEN [facility] Start: 11-05-2025 Diabetes Screening Diabetes Screening [facility] Start: 09-28-2025 Annual PCP Team Chronic Disease Visit Annual PCP Team Chronic Disease Visit [facility] Start: 08-31-2025 Annual PCP Team Chronic Disease Visit Annual PCP Team Chronic Disease Visit [facility] Start: 08-24-2025 Annual PCP Team Chronic Disease Visit Annual PCP Team Chronic Disease Visit [facility] Start: 08-11-2025 Annual PCP Team Chronic Disease Visit Annual PCP Team Chronic Disease Visit [facility] Start: 08-05-2025 Hepatitis B surface antibody level LDL Cholesterol [facility] Start: 07-09-2025 BP Controlled (<130/80) BP Controlled (<130/80) [facility] Start: 06-14-2025 End: 06-14-2025 Patient encounter procedure 06/14/2025 2:40 PM EST Office Visit Family [facility] [place] [address] [place] [address] Keren Kwon APRN.GORE STITCHER [address] [place], [place] [id number] 6 month follow up/Annual Family [facility] Comment on above: 6 month follow up/Annual Start: 06-12-2025 Annual PCP Team Chronic Disease Visit Annual PCP Team Chronic Disease Visit [facility] Start: 06-12-2025 HIV screening HIV Screening [facility] Comment on above: Postponed from 1984 (Declined at t his time) Start: 03-29-2025 Patient discharge [facility] Start: 03-22-2025 Influenza vaccination Influenza Vaccine (#1) [facility] Start: 03-10-2025 End: 06-09-2025 Basic metabolic 2000 panel - Serum or Plasma BASIC METABOLIC PANEL Lab STAT Hyperkalemia Expected: 03/10/2025, Expires: 06/09/2025 [facility] Work Phone: Comment on above: Expected: 03/10/2025, Expires: Start: 03-09-2025 End: 06-08-2025 Creatine kinase [Enzymatic activity/volume] in Serum or Plasma [facility] Work Phone: Comment on above: Expected: 03/09/2025, Expires: Start: 03-09-2025 End: 03-09-2025 Patient encounter procedure 03/09/2025 1:20 PM EDT Office Visit [facility] Juanito Masterson [address] [facility] [place] [id number] Keren Kwon, GERARDO.GORE STITCHER [address] [place], [place] [id number] [facility] progressive care unit severe LUZ MARIA, 03/03-03/05 Family Juanito Masterson Comment on above: [facility] progressive care unit severe LUZ MARIA, -03/05 Start: 03-05-2025 Patient discharge [facility] Start: 03-04-2025 Notification of physician [facility] Start: 03-04-2025 Provision of activity privileges [facility] Start: 03-04-2025 Vital signs measurements [facility] Start: 03-03-2025 Application of intermittent pneumatic compression device [facility] Start: 03-03-2025 Following clinical pathway protocol [facility] Start: 03-03-2025 Assessment of risk of venous thromboembolism [facility] Start: 03-03-2025 Continuous positive airway pressure ventilation treatment [facility] Start: 03-03-2025 Incentive spirometry [facility] Start: 03-03-2025 Insertion of catheter into peripheral vein [facility] Start: 03-03-2025 Measuring intake and output [facility] Start: 03-03-2025 Oxygen therapy [facility] Start: 03-03-2025 Providing care according to standard [facility] Start: 03-03-2025 Provision of activity privileges [facility] Start: 03-03-2025 Referral to occupational therapist [facility] Start: 03-03-2025 Referral to service [facility] Start: 03-03-2025 Clostridioides difficile DNA [Presence] in Unspecified specimen by ABBY with probe detection [facility] Start: 03-03-2025 Lactoferrin [Presence] in Stool by Immunoassay [facility] Start: 03-03-2025 Nucleic acid assay [facility] Start: 03-03-2025 Verification routine [facility] Start: 03-03-2025 Admission procedure [facility] Start: 03-03-2025 End: 03-03-2025 [facility] Start: 03-03-2025 Hospital admission, emergency, from emergency room, medical nature [facility] Start: 03-03-2025 End: 03-03-2025 [facility] Start: 03-03-2025 Patient referral to dietitian [facility] Start: 01-06-2025 LIPID SCREEN LIPID SCREEN [facility] Start: 12-21-2024 End: 03-22-2025 Prostate Specific Ag Free [Mass/volume] in Serum or Plasma PROSTATE SPECIFIC ANTIGEN, FREE Lab Routine Elevated PSA Expected: 12/21/2024, Expires: 03/22/2025 [facility] Work Phone: Comment on above: Expected: 12/21/2024, Expires: Start: 12-11-2024 End: 12-11-2024 Patient encounter procedure 12/11/2024 2:20 PM EDT Office Visit [facility] [place] [address] [facility] [place] [address] Keren Kwon, GUEST SERVICE TEAM LEADER.GORE STITCHER [address] [place] [address] Follow up visit. Family [facility] Comment on above: Follow up visit. Start: 12-01-2024 End: 12-01-2024 Patient encounter procedure 12/01/2024 2:40 PM EDT Office Visit [facility] [place] [address] [place] [address] Keren Kwon, GUEST SERVICE TEAM LEADER.GORE STITCHER [address] [place] [address] Follow up from injury [facility] Comment on above: Follow up from injury Start: 11-30-2024 End: 11-30-2024 Patient encounter procedure 11/30/2024 1:00 PM EDT Office Visit Urology [address] [place] [address] Chris Devlin APRN.GORE STITCHER, DNP [address] [place] [address] 1 month f/u- BPH, Elevated PSA Urology Comment on above: 1 month f/u- BPH, Elevated PSA Start: 11-07-2024 DIABETES SCREEN DIABETES SCREEN [facility] Start: 11-02-2024 End: 11-02-2024 Patient encounter procedure 11/02/2024 1:00 PM EDT Office Visit [facility] [place] [address] [place] [address] Keren Kwon, GUEST SERVICE TEAM LEADER.GORE STITCHER [address] [place] [address] 3 month follow up Family Juanito Masterson Comment on above: 3 month follow up Start: 10-07-2024 End: 10-07-2024 Patient encounter procedure 10/07/2024 1:30 PM EDT Office Visit Family Juanito Masterson [address] [place], [place] [phone] Juarez Hernández V, DO [address] [place] [address] Elbow pain, right [M25.521] [facility] [place] Comment on above: Elbow pain, right [M25.521] Start: 09-29-2024 End: 2024 Prostate Specific Ag Free [Mass/volume] in Serum or Plasma PROSTATE SPECIFIC ANTIGEN, FREE Lab Routine Elevated PSA Expected: 09/29/2024, Expires: 2024 [facility] Comment on above: Expected: 09/29/2024, Expires: Start: 09-28-2024 End: 09-28-2024 Patient encounter procedure Urology Comment on above: Elevated PSA [R97.20] 4 week BP check Elevated PSA. Patien t to come in at 1230. [facility] Start: 08-31-2024 End: 08-31-2024 Patient encounter procedure 08/31/2024 3:20 PM EST Office Visit [facility] Juanito Masterson [address] [facility] [place] [address] Keren Kwon APRN.GORE STITCHER [address] [place] [address] 1 week BP check [facility] Juanito Masterson Comment on above: 1 week BP check Start: 08-27-2024 End: 08-27-2024 Patient encounter procedure 08/27/2024 1:45 PM EST Appointment Radiology [address] [place] [address] Elevated alkaline phosphatase level [R74.8] Radiology Comment on above: Elevated alkaline phosphatase level [R74 .8] Start: 08-24-2024 End: 08-24-2024 Patient encounter procedure 08/24/2024 11:20 AM EST [facility] [address] [place] [address] Keren Kwon, GERARDO.GORE STITCHER [address] [place] [address] f/u left knee pain [facility] Comment on above: f/u left knee pain Start: 08-11-2024 End: 11-10-2024 C reactive protein [Mass/volume] in Serum or Plasma [facility] Comment on above: Expected: 08/11/2024, Expires: Start: 08-11-2024 End: 11-10-2024 Erythrocyte sedimentation rate [facility] Comment on above: Expected: 08/11/2024, Expires: Start: 08-11-2024 End: 11-10-2024 Urate [Mass/volume] in Serum or Plasma [facility] Comment on above: Expected: 08/11/2024, Expires: Start: 08-11-2024 End: 08-11-2024 Patient encounter procedure 08/11/2024 1:00 PM EST Office Visit [facility] [place] [address] [place] [address] Keren Kwon, GERARDO.GORE STITCHER [address] [place] [address] [facility] ER 07/23/24 dx: L knee pain after falling from ladder [facility] Comment on above: [facility] ER 07/23/24 dx: L knee pain after fall ing from ladder Start: 08-07-2024 End: 11-06-2024 ALK PHOS ISOENZYM BL ALK PHOS ISOENZYM BL Lab Routine Elevated alkaline phosphatase level Expected: 08/07/2024, Expires: 11/06/2024 [facility] Comment on above: Expected: 08/07/2024, Expires: Start: 08-07-2024 End: 11-06-2024 Basic metabolic 2000 panel - Serum or Plasma BASIC METABOLIC PANEL Lab Routine Hyponatremia Expected: 08/07/2024, Expires: 11/06/2024 [facility] Work Phone: Comment on above: Expected: 08/07/2024, Expires: Start: 08-07-2024 End: 11-06-2024 CBC W Auto Differential panel - Blood COMPLETE BLOOD COUNT AND DIFFERENTIAL Lab Routine Elevated hemoglobin (HCC) Expected: 08/07/2024, Expires: 11/06/2024 [facility] Comment on above: Expected: 08/07/2024, Expires: Start: 08-07-2024 End: 11-06-2024 Osmolality of Urine OSMOLALITY URINE Lab Routine Hyponatremia Expected: 08/07/2024, Expires: 11/06/2024 [facility] Comment on above: Expected: 08/07/2024, Expires: Start: 08-07-2024 End: 11-06-2024 Prostate Specific Ag Free [Mass/volume] in Serum or Plasma PROSTATE SPECIFIC ANTIGEN, FREE Lab Routine Elevated PSA Expected: 08/07/2024, Expires: 11/06/2024 [facility] Comment on above: Expected: 08/07/2024, Expires: Start: 08-07-2024 End: 11-06-2024 Sodium [Moles/volume] in Urine collected for unspecified duration SODIUM RANDOM URINE Lab Routine Hyponatremia Expected: 08/07/2024, Expires: 11/06/2024 [facility] Comment on above: Expected: 08/07/2024, Expires: Start: 08-05-2024 End: 08-05-2024 Patient encounter procedure 08/05/2024 12:30 PM EST Office Visit [facility] [address] [place] [address] Bilateral carotid artery stenosis [I65.23] [facility] Comment on above: Bilateral carotid artery stenosis [I65.2 3] Start: 07-08-2024 End: 07-08-2024 Patient encounter procedure 07/08/2024 3:30 PM EST Office Visit [facility] [address] [place] [address] Bilateral carotid artery stenosis [I65.23] [facility] Comment on above: Bilateral carotid artery stenosis [I65.2 3] Start: 06-22-2024 End: 06-22-2024 Patient encounter procedure 06/22/2024 4:00 PM EST Office Visit General Surgery [address] [place] [address] Alma Delia Garza APRN.GORE STITCHER [address] [place] [address] Screening for colon cancer [Z12.11] General Surgery Comment on above: Screening for colon cancer [Z12.11] Start: 06-12-2024 End: 09-11-2024 CBC W Auto Differential panel - Blood COMPLETE BLOOD COUNT AND DIFFERENTIAL Lab Routine Moderate hypertension Expected: 06/12/2024, Expires: 09/11/2024 [facility] Work Phone: Comment on above: Expected: 06/12/2024, Expires: Start: 06-12-2024 End: 09-11-2024 Cobalamin (Vitamin B12) [Mass/volume] in Serum or Plasma VITAMIN B12 Lab Routine Chronic alcohol abuse Expected: 06/12/2024, Expires: 09/11/2024 [facility] Comment on above: Expected: 06/12/2024, Expires: Start: 06-12-2024 End: 09-11-2024 Comprehensive metabolic 2000 panel - Serum or Plasma COMPREHENSIVE METABOLIC PANEL Lab Routine Moderate hypertension Expected: 06/12/2024, Expires: 09/11/2024 [facility] Comment on above: Expected: 06/12/2024, Expires: Start: 06-12-2024 End: 09-11-2024 Folate [Mass/volume] in Serum or Plasma FOLATE, SERUM Lab Routine Chronic alcohol abuse Expected: 06/12/2024, Expires: 09/11/2024 [facility] Comment on above: Expected: 06/12/2024, Expires: Start: 06-12-2024 End: 09-11-2024 Lipid 1996 panel - Serum or Plasma LIPID PANEL BASIC Lab Routine Hypertriglyceridemia Coronary artery disease due to lipid rich plaque Expected: 06/12/2024, Expires: 09/11/2024 [facility] Comment on above: Expected: 06/12/2024, Expires: Start: 06-12-2024 End: 09-11-2024 Magnesium [Mass/volume] in Serum or Plasma MAGNESIUM Lab Routine Hypomagnesemia Chronic alcohol abuse Expected: 06/12/2024, Expires: 09/11/2024 [facility] Comment on above: Expected: 06/12/2024, Expires: 5 Start: 06-12-2024 End: 09-11-2024 PSA/PROSTATE SPECIFIC ANTIGEN SCREENING PSA/PROSTATE SPECIFIC ANTIGEN SCREENING Lab Routine Screening for prostate cancer Expected: 06/12/2024, Expires: 09/11/2024 [facility] Comment on above: Expected: 06/12/2024, Expires: Start: 03-22-2024 Covid-19 Vaccine () Covid-19 Vaccine () [facility] Start: 03-22-2024 Influenza vaccination Influenza Vaccine (#1) [facility] Start: 01-22-2024 ANNUAL PCP TEAM CHRONIC DISEASE VISIT ANNUAL PCP TEAM CHRONIC DISEASE VISIT [facility] Start: 01-13-2024 Colonoscopy COLONOSCOPY [facility] Start: 01-13-2024 COLORECTAL CANCER SCREENING COLORECTAL CANCER SCREENING [facility] Start: 01-13-2024 Screening for malignant neoplasm of colon [facility] Start: 11-06-2023 ANNUAL PCP TEAM CHRONIC DISEASE VISIT ANNUAL PCP TEAM CHRONIC DISEASE VISIT [facility] Start: 11-06-2023 COVID-19 VACCINE (#1) COVID-19 VACCINE (#1) [facility] Comment on above: Postponed from 06/30/1967 (Declined at t his time) Start: 11-06-2023 HEPATITIS B (1 of 3 - 3-dose series) HEPATITIS B (1 of 3 - 3-dose series) [facility] Comment on above: Postponed from 1966 (Declined at t his time) Start: 11-06-2023 Hepatitis B Vaccine (1 of 3 - 3-dose series) Hepatitis B Vaccine (1 of 3 - 3-dose series) [facility] Comment on above: Postponed from 1966 (Declined at t his time) Start: 11-06-2023 HIV SCREENING HIV SCREENING [facility] Comment on above: Postponed from 1984 (Declined at t his time) Start: 11-06-2023 PROSTATE CANCER SCREENING DISCUSSION PROSTATE CANCER SCREENING DISCUSSION [facility] Comment on above: Postponed from 2021 (Declined at t his time) Start: 06-25-2023 BP CONTROLLED (<130/80) BP CONTROLLED (<130/80) [facility] Start: 05-16-2023 Patient discharge [facility] Start: 05-13-2023 Ambulation without limitation [facility] Start: 05-13-2023 Assessment of risk of venous thromboembolism [facility] Start: 05-13-2023 Inhalation therapy procedure [facility] Start: 05-13-2023 Insertion of catheter into peripheral vein [facility] Start: 05-13-2023 Measuring intake and output [facility] Start: 05-13-2023 Oxygen therapy [facility] Start: 05-13-2023 Providing care according to standard [facility] Start: 05-13-2023 Referral to service [facility] Start: 05-13-2023 End: 05-13-2023 [facility] Start: 05-13-2023 Following clinical pathway protocol [facility] Start: 05-13-2023 Verification routine [facility] Start: 05-13-2023 Admission procedure [facility] Start: 05-13-2023 Hospital admission, emergency, from emergency room, medical nature [facility] Start: 05-13-2023 [facility] Start: 05-13-2023 Consultation [facility] Start: 05-13-2023 Patient referral to dietitian [facility] Start: 03-22-2023 Influenza vaccination [facility] Start: 02-23-2023 ANNUAL PCP TEAM CHRONIC DISEASE VISIT ANNUAL PCP TEAM CHRONIC DISEASE VISIT [facility] Start: 01-21-2023 End: 03-23-2023 Cobalamin (Vitamin B12) [Mass/volume] in Serum or Plasma [facility] Work Phone: Comment on above: Expected: 01/21/2023, Expires: Start: 01-21-2023 End: 03-23-2023 Folate [Mass/volume] in Serum or Plasma [facility] Work Phone: Comment on above: Expected: 01/21/2023, Expires: 3 Start: 01-06-2023 DIABETES SCREEN DIABETES SCREEN [facility] Start: 11-15-2022 ANNUAL PCP TEAM CHRONIC DISEASE VISIT ANNUAL PCP TEAM CHRONIC DISEASE VISIT [facility] Start: 11-05-2022 End: 01-05-2023 Comprehensive metabolic 2000 panel - Serum or Plasma [facility] Work Phone: Comment on above: Expected: 11/05/2022, Expires: 3 Start: 11-05-2022 End: 01-05-2023 Lipid 1996 panel - Serum or Plasma [facility] Work Phone: Comment on above: Expected: 11/05/2022, Expires: 3 Start: 11-05-2022 End: 01-05-2023 Magnesium [Mass/volume] in Serum or Plasma [facility] Work Phone: Comment on above: Expected: 11/05/2022, Expires: 3 Start: 11-01-2022 ANNUAL PCP TEAM CHRONIC DISEASE VISIT ANNUAL PCP TEAM CHRONIC DISEASE VISIT [facility] Start: 06-05-2022 End: 06-19-2022 Influenza virus A and B RNA and SARS-CoV-2 (COVID-19) N gene panel - Respiratory specimen by ABBY with probe detection COVID WITH FLUA+B, ROUTINE Microbiology Routine Body aches Flu-like symptoms Expected: 06/05/2022, Expires: 06/19/2022 [facility] Work Phone: Comment on above: Expected: 06/05/2022, Expires: 2 Start: 03-22-2022 Influenza vaccination [facility] Start: 02-08-2022 End: 04-10-2022 CK CREATINE KINASE CK CREATINE KINASE Lab Routine NSTEMI (non-ST elevated myocardial infarction) (HCC) Hypertriglyceridemia Hyperlipidemia, mixed Expected: 02/08/2022, Expires: 04/10/2022 [facility] Work Phone: Comment on above: Expected: 02/08/2022, Expires: 2 Start: 02-08-2022 End: 04-10-2022 LIPID PANEL BASIC LIPID PANEL BASIC Lab Routine NSTEMI (non-ST elevated myocardial infarction) (HCC) Hypertriglyceridemia Hyperlipidemia, mixed Expected: 02/08/2022, Expires: 04/10/2022 [facility] Work Phone: Comment on above: Expected: 02/08/2022, Expires: 2 Start: 2021 PROSTATE CANCER SCREENING DISCUSSION PROSTATE CANCER SCREENING DISCUSSION [facility] Start: 2021 Prostate specific antigen measurement Prostate Cancer Screening Discussion [facility] Start: 11-15-2021 End: 01-15-2022 Comprehensive metabolic 2000 panel - Serum or Plasma COMP METABOLIC PANEL Lab Routine Function kidney decreased Expected: 11/15/2021, Expires: 01/15/2022 [facility] Work Phone: Comment on above: Expected: 11/15/2021, Expires: 2 Start: 11-09-2021 End: 01-09-2022 POTASSIUM BLD POTASSIUM BLD Lab STAT Serum potassium elevated Expected: 11/09/2021, Expires: 01/09/2022 [facility] Work Phone: Comment on above: Expected: 11/09/2021, Expires: 2 Start: 11-01-2021 End: 01-01-2022 CBC W Auto Differential panel - Blood CBC + DIFF Lab Routine Fatigue, unspecified type Expected: 11/01/2021, Expires: 01/01/2022 [facility] Work Phone: Comment on above: Expected: 11/01/2021, Expires: 2 Start: 11-01-2021 End: 01-01-2022 Comprehensive metabolic 2000 panel - Serum or Plasma COMP METABOLIC PANEL Lab Routine Hypertension, essential Renal insufficiency Expected: 11/01/2021, Expires: 01/01/2022 [facility] Work Phone: Comment on above: Expected: 11/01/2021, Expires: 2 Start: 11-01-2021 End: 01-01-2022 FERRITIN BLD FERRITIN BLD Lab Routine Fatigue, unspecified type Expected: 11/01/2021, Expires: 01/01/2022 [facility] Work Phone: Comment on above: Expected: 11/01/2021, Expires: 2 Start: 11-01-2021 End: 01-01-2022 Folate [Mass/volume] in Serum or Plasma FOLATE SERUM Lab Routine Fatigue, unspecified type Chronic alcohol abuse Expected: 11/01/2021, Expires: 01/01/2022 [facility] Work Phone: Comment on above: Expected: 11/01/2021, Expires: 2 Start: 11-01-2021 End: 01-01-2022 Hemoglobin A1c/Hemoglobin.total in Blood HGB A1C Lab Routine Elevated glucose Expected: 11/01/2021, Expires: 01/01/2022 [facility] Work Phone: Comment on above: Expected: 11/01/2021, Expires: 2 Start: 11-01-2021 End: 01-01-2022 IRON + TIBC IRON + TIBC Lab Routine Fatigue, unspecified type Expected: 11/01/2021, Expires: 01/01/2022 [facility] Work Phone: Comment on above: Expected: 11/01/2021, Expires: 2 Start: 11-01-2021 End: 01-01-2022 LIPID PANEL BASIC LIPID PANEL BASIC Lab Routine 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 Expected: 11/01/2021, Expires: 01/01/2022 [facility] Work Phone: Comment on above: Expected: 11/01/2021, Expires: 2 Start: 11-01-2021 End: 01-01-2022 Magnesium [Mass/volume] in Serum or Plasma MAGNESIUM BLD Lab Routine GERD without esophagitis Chronic alcohol abuse Expected: 11/01/2021, Expires: 01/01/2022 [facility] Work Phone: Comment on above: Expected: 11/01/2021, Expires: 2 Start: 11-01-2021 End: 11-01-2022 SARS-CoV-2 (COVID-19) RNA [Presence] in Respiratory specimen by ABBY with probe detection PRE-PROCEDURE & PRE-OPERATIVE COVID Microbiology Routine Chest pain, unspecified type Expected: 11/01/2021, Expires: 11/01/2022 [facility] Work Phone: Comment on above: Expected: 11/01/2021, Expires: 3 Start: 11-01-2021 End: 01-01-2022 Thyrotropin [Units/volume] in Serum or Plasma TSH BLD Lab Routine Fatigue, unspecified type Expected: 11/01/2021, Expires: 01/01/2022 [facility] Work Phone: Comment on above: Expected: 11/01/2021, Expires: 2 Start: 11-01-2021 End: 01-01-2022 VITAMIN B12 BLOOD VITAMIN B12 BLOOD Lab Routine Fatigue, unspecified type Expected: 11/01/2021, Expires: 01/01/2022 [facility] Work Phone: Comment on above: Expected: 11/01/2021, Expires: 2 Start: 05-17-2021 Pneumococcal Vaccine: 50+ (3 of 3 - PCV20 or PCV21) Pneumococcal Vaccine: 50+ (3 of 3 - PCV20 or PCV21) [facility] Start: 11-10-2019 SHINGRIX VACCINE (2 of 2) SHINGRIX VACCINE (2 of 2) [facility] Start: 12-06-2018 FECAL OCCULT BLOOD FECAL OCCULT BLOOD [facility] Start: 12-06-2018 Screening for malignant neoplasm of colon Fecal Occult Blood [facility] Start: 05-17-2017 PNEUMOCOCCAL (2 - PCV) PNEUMOCOCCAL (2 - PCV) [facility] Start: 05-17-2017 Pneumococcal vaccination Pneumococcal Vaccine (2 - PCV) [facility] Start: 12-30-2011 COLOGUARD (FIT-DNA) COLOGUARD (FIT-DNA) [facility] Start: 12-30-[address] COLONOGRAPHY [facility] Start: 12-30-2011 Screening for malignant neoplasm of colon [facility] Start: 12-30-2011 SIGMOIDOSCOPY SIGMOIDOSCOPY [facility] Start: 1985 Hepatitis B Vaccine (1 of 3 - 19+ 3-dose series) Hepatitis B Vaccine (1 of 3 - 19+ 3-dose series) [facility] Start: 1984 BP CONTROLLED (<130/80) BP CONTROLLED (<130/80) [facility] Start: 1984 HEPATITIS C SCREENING HEPATITIS C SCREENING [facility] Start: 1984 HIV SCREENING HIV SCREENING [facility] Start: 1984 HIV screening HIV Screening [facility] Start: 12-30-1971 COVID-19 VACCINE (1) COVID-19 VACCINE (1) [facility] Start: 06-30-1967 COVID-19 VACCINE (#1) COVID-19 VACCINE (#1) [facility] Start: 1966 HEPATITIS B (1 of 3 - 3-dose series) HEPATITIS B (1 of 3 - 3-dose series) [facility] Bilirubin measuremen t, urine [facility] COVID & INFLUENZA A/ B & RSV PCR, ROUTINE COVID & INFLUENZA A/B & RSV PCR, ROUTINE Microbiology Routine Acute cough 07/13/2024 3:21 PM EST [facility] Work Phone: End: 11-01-2022 ECG COMPLETE ECG COMPLETE ECG Routine Chest pain, unspecified type 1 Occurrences starting 11/01/2021 until 11/01/2022 [facility] Work Phone: Comment on above: 1 Occurrences starting 11/01/2021 until 11/01/2022 Hemoglobin [Presence ] in Urine [facility] Influenza virus A an d B RNA and SARS-CoV-2 (COVID-19) N gene panel - Respiratory specimen by ABBY with probe detection COVID WITH FLUA+B, ROUTINE Microbiology Routine Acute cough Ordered: 02/19/2022 [facility] Work Phone: Comment on above: Ordered: 02/19/2022 Influenza virus A an d B RNA and SARS-CoV-2 (COVID-19) N gene panel - Respiratory specimen by ABBY with probe detection COVID & INFLUENZA A/B NAAT, ROUTINE Microbiology Routine Influenza-like illness 04/08/2023 9:47 AM EDT [facility] Work Phone: Lipid 1996 panel - Serum or Plasma [facility] Magnesium measurement [facility] Measurement of keton es in urine using dipstick [facility] Measurement of respiratory function [facility] Microscopic urinalysis [facility] NM CARDIAC PERF STRESS/PHARM NM CARDIAC PERF STRESS/PHARM Radiology Routine Chest pain, unspecified type Encounter for screening for cardiovascular disorders Ordered: 11/01/2021 [facility] Work Phone: Comment on above: Ordered: 11/01/2021 Ova OR parasites identification [facility] Patient Education [facility] Work Phone: Patient referral [facility] Work Phone: pH of Urine [facility] POST VOID RESIDUAL POST VOID RES IDUAL Procedures Routine Elevated PSA BPH with obstruction/lower urinary tract symptoms Ordered: 09/28/2024 [facility] Work Phone: Comment on above: Ordered: 09/28/2024 Radionuclide imaging of perfusion of myocardium under exercise stress [facility] Specific gravity of Urine [facility] Troponin T.cardiac [Mass/volume] in Serum or Plasma by High sensitivity method [facility] Troponin T.cardiac [Mass/volume] in Serum or Plasma by High sensitivity method [facility] Urine blood test [facility] Urine dipstick for glucose [facility] Urine dipstick for leukocyte esterase [facility] Urine dipstick for nitrite [facility] Urine dipstick for protein [facility] Urine examination [facility] Urine microscopy: epithelial cells [facility] Urine Microscopy: wh ite cells [facility] Urobilinogen [Presen ce] in Urine [facility] End: 01-25-2024 US ABD RIGHT UPPER QUADRANT US ABD RIGHT UPPER QUADRANT Radiology Routine Elevated liver enzymes 1 Occurrences starting 12/26/2022 until 01/25/2024 [facility] Work Phone: Comment on above: 1 Occurrences starting 12/26/2022 until 01/25/2024 End: 09-13-2025 US Abdomen RUQ US ABD RIGHT UPPER QUADRANT Radiology Routine Elevated alkaline phosphatase level 1 Occurrences starting 08/14/2024 until 09/13/2025 [facility] Work Phone: Comment on above: 1 Occurrences starting 08/14/2024 until 09/13/2025 End: 06-12-2025 US Carotid arteries - bilateral US CAROTID ARTERIES [facility] V[facility] Lab Routine Bilateral carotid artery stenosis 1 Occurrences starting 06/12/2024 until 06/12/2025 [facility] Comment on above: 1 Occurrences starting 06/12/2024 until 06/12/2025 End: 11-01-2022 US CAROTID ARTERIES [facility] US CAROTID ARTERIES [facility] V[facility] Lab Routine Bilateral carotid artery stenosis 1 Occurrences starting 11/01/2021 until 11/01/2022 [facility] Work Phone: Comment on above: 1 Occurrences starting 11/01/2021 until 11/01/2022 End: 11-06-2023 US CAROTID ARTERIES [facility] US CAROTID ARTERIES [facility] Vascular Lab Routine Bilateral carotid artery stenosis 1 Occurrences starting 11/05/2022 until 11/06/2023 [facility] Work Phone: Comment on above: 1 Occurrences starting 11/05/2022 until 11/06/2023 [facility] End: 09-10-2025 XR Knee - left 4 Views XR KNEE GENERAL 4V AP BOTH/PA BOTH/LAT/MERC LEFT Radiology Routine Acute pain of left knee 1 Occurrences starting 08/11/2024 until 09/10/2025 [facility] Work Phone: Comment on above: 1 Occurrences starting 08/11/2024 until 09/10/2025 XR Knee - left 4 Views XR KNEE G ENERAL 4V AP BOTH/PA BOTH/LAT/MERC LEFT Radiology Routine Acute pain of left knee 08/11/2024 2:35 PM EST [facility] Immunizations Immunization Date Immunization Notes Care Provider Bolivar ervin 06-12-2024 influenza, injectabl e, quadrivalent, preservative free Keren Haagen [employer] Work Phone: [facility] 06-12-2024 influenza, seasonal, injectable Keren Haagen [employer]ICE TE[employer]ADER[employer] Work Phone: [facility] 06-12-2024 influenza virus vacc ine, unspecified formulation Keren Haagen [employer] SERVICE TEAM LEADER.[employer] Work Phone: [facility] 05-14-2023 influenza, injectabl e, quadrivalent, preservative free [employer] Vani Owen [employer]ER Work Phone: [facility] 09-15-2019 zoster vaccine recombinant Keren Haagen GUEST SERVICE TEAM LEADER.[employer] Work Phone: [facility] Work Phone: 06-01-2019 influenza, injectabl e, quadrivalent, preservative free Dr. Pema Yang Work Phone: [facility] 06-01-2019 influenza, seasonal, injectable [facility] 06-01-2019 influenza, seasonal, injectable, preservative free Keren Haagen [employer] Work Phone: [facility] 06-01-2019 influenza virus vacc ine, unspecified formulation Henry Morrow MD Work Phone: [facility] 08-28-2018 influenza, injectabl e, quadrivalent, contains preservative Keren Haagen [employer]ST SERVICE TE[employer] LEADER[employer] Work Phone: [facility] 08-28-2018 influenza, injectabl e, quadrivalent, preservative free Keren Haagen [employer] Work Phone: [facility] 06-24-2017 Influenza virus vaccine [facility] 07-10-2016 tetanus toxoid, redu adriana diphtheria toxoid, and acellular pertussis vaccine, adsorbed Keren Haagen G[employer] SERVICE TE[employer] LEADER[employer] Work Phone: [facility] 05-17-2016 pneumococcal polysaccharide vaccine, 23 valent Ziggy Mobley [employer]UE[employer] SERVICE TEAM LEADER[employer] Work Phone: [facility] 04-25-2015 pneumococcal conjuga te vaccine, 13 valent [facility] 05-20-2014 influenza, injectabl e, quadrivalent, preservative free Keren Haagen [employer] Work Phone: [facility] 05-20-2014 influenza, seasonal, injectable Keren Kwon [employer] SERVICE TEAM LEADER.[employer] Work Phone: [facility] Work Phone: Payers Date Payer Category Payer Self-pay [id number] 2014 Medicaid [id number] 2014 [facility] MEDICAID [id number] 2014-Present [phone] [address] [place] [address] Medicaid [id number] 2014 Medicaid [id number] 2014 Unknown [id number] Unknown [id number] Unknown [id number] Unknown [id number] Unknown [id number] Unknown [id number] Unknown [id number] Unknown [id number] Unknown [id number] Unknown [id number] Unknown [id number] Unknown [id number] Unknown [id number] Social History Date Type Detail Facility Start: 07-24-2016 End: 03-25-2025 Tobacco smoking status NHIS Ex-smoker [facility] Start: 12-30-1983 End: 05-30-2014 History of tobacco use Current smoker [facility] Start: 07-24-2016 End: 11-22-2022 Cigarettes smoked current (pack per day) - Reported 0.5 [facility] Start: 07-24-2016 End: 06-12-2024 Tobacco use and exposure User of smokeless tobacco [facility] End: 09-07-2024 History of tobacco use Chews Tobacco [facility] Start: 11-01-2021 End: 03-09-2025 Alcohol intake Current drinker of alcohol (finding) [facility] Start: 12-01-2019 End: 11-05-2022 History SDOH Alcohol Frequency 2 [facility] Start: 12-01-2019 End: 11-05-2022 History SDOH Alcohol Std Drinks 5 [facility] Start: 06-26-2016 History SDOH Alcohol Comment Binge drinking at times, worse with stress. [facility] Start: 12-01-2019 End: 11-05-2022 History SDOH Social Connections Phone 4 [facility] Start: 12-01-2019 End: 11-05-2022 History SDOH Social Connections Get Together 1 [facility] Start: 12-01-2019 End: 11-05-2022 History SDOH Social Connections Druze 3 [facility] Start: 12-01-2019 Education 21 [facility] Start: 04-02-2014 End: 06-05-2022 Tobacco Comment Very few, very infrequently. Father smoked in childhood home. [facility] Start: 1965 Sex Assigned At Male [facility] Start: 11-08-2021 End: 10-14-2023 Tobacco smoking status KYIS Unknown if ever smoked [facility] Start: 05-31-2019 Occasional [facility] Start: 05-31-2019 With Family [facility] Start: 10-28-2021 End: 02-20-2022 Exposure to SARS-CoV-2 (event) Not sure [facility] Start: 02-20-2022 End: 11-05-2022 History SDOH Alcohol Frequency 98 [facility] Start: 12-30-1983 End: 05-30-2014 History of tobacco use Cigarette Smoker [facility] Start: 05-26-2022 End: 06-05-2022 Exposure to SARS-CoV-2 (event) Yes [facility] Start: 03-14-2017 Marijuana [facility] Start: 03-14-2017 Non-smoker [facility] Start: 11-05-2022 End: 11-22-2022 Social connection and isolation panel [facility] Do you belong to any clubs or organizations such as adventist groups, unions, fraternal or athletic groups, or school groups? No [facility] Are you now , , , , never or living with a partner? Refused [facility] How often to you hav e a drink containing alcohol? 4 or more times a week [facility] How many standard dr inks containing alcohol do you have on a typical day? 3 or 4 [facility] How often do you hav e 6 or more drinks on 1 occasion? Weekly [facility] How hard is it for y ou to pay for the very basics like food, housing, medical care, and heating Not very hard [facility] Start: 06-22-2012 Adult Depression Screening Assessment 2 [facility] Do you feel stress - tense, restless, nervous, or anxious, or unable to sleep at night because your mind is troubled all the time - these days [OSQ] Rather much [facility] (I/We) worried sayth er (my/our) food would run out before (I/we) got money to buy more. Sometimes true [facility] Start: 10-24-2018 Gender identity Identifies as male gender (finding) [facility] Start: 10-24-2018 Sexual orientation Heterosexual (finding) [facility] Are you now , , , , never or living with a partner? [facility] How hard is it for y ou to pay for the very basics like food, housing, medical care, and heating [facility] (I/We) worried nicole er (my/our) food would run out before (I/we) got money to buy more. Never true [facility] How often to you hav e a drink containing alcohol? 2-4 times a month [facility] How often do you hav e 6 or more drinks on 1 occasion? Monthly [facility] How hard is it for y ou to pay for the very basics like food, housing, medical care, and heating Very hard [facility] Do you feel stress - tense, restless, nervous, or anxious, or unable to sleep at night because your mind is troubled all the time - these days [OSQ] Very much [facility] Start: 09-28-2024 Tobacco use and exposure Former smokeless tobacco user [facility] Goals Date Patient Goal Desired Activity /State Functional Status Date Assessment Result Facility 03-05-2025 Functional status Ambulates [facility] Work Phone: 05-16-2023 Functional status Ambulates [facility] Work Phone: 02-26-2015 Are you deaf, or do you have serious difficulty hearing No 02/26/2015 2:13 PM Nicole Harley LPN No [facility] 02-26-2015 Are you blind, or do you have serious difficulty seeing, even when wearing glasses No 02/26/2015 2:13 PM Nicole Harley LPN No [facility] 02-26-2015 Do you have serious difficulty walking or climbing stairs No 02/26/2015 2:13 PM Nicole Harley LPN No [facility] 02-26-2015 Do you have difficul ty dressing or bathing No 02/26/2015 2:13 PM Nicole Harley LPN No [facility] 02-26-2015 Because of a physica l, mental, or emotional condition, do you have difficulty doing errands alone such as visiting a physician's office or shopping No 02/26/2015 2:13 PM Nicole Harley LPN No [facility] Mental Status Date Assessment Result Facility 03-29-2025 Cognitive function Light Pain [facility] Work Phone: 03-10-2025 Cognitive function Level Of Cons ciousness Awake;Alert;Appropriate;Fol lows Commands [facility] Work Phone: 03-05-2025 Cognitive function Voice/Name [facility] Work Phone: 03-03-2025 Cognitive function Voice/Name [facility] Work Phone: 05-16-2023 Cognitive function Voice/Name [facility] Work Phone: 01-02-2023 Cognitive function Voice/Name [facility] Work Phone: 11-08-2021 Cognitive function Level Of Cons ciousness Awake;Alert;Appropriate;Fol lows Commands [facility] Work Phone: 02-26-2015 Because of a physica l, mental, or emotional condition, do you have serious difficulty concentrating, remembering, or making decisions No 02/26/2015 2:13 PM EDT Nicole Anglin LPN No [facility] Clinical Notes 11-01-2021 to 03-29-2025 Note Date & Type Note Facility 03-29-2025 Consult note [facility] 03-29-2025 Consult note Note Date/Time March 29, 2025 9:30am [facility] Medical Records Department [address] [place] [address] Pre-Anesthesia Evaluation 03/29/25 0922 MR#: [id number] Acct: [id number] Name: BETHANY MONTALVO Rep #:[id number] : [id number] 59 From: Silvio Hinkle PCP: XUAN Armendariz Status:REG S DC Y Race: C Location: [place] [address] ASA Classification* ASA Classification ASA Classification: 3 Assessment & Plan Anesthesia* Anesthesia Assessment Anesthesia Assessment: Discussed sedation and/or anesthesia options, risks, benefits, and alternatives with patient/parents/legal guardian/POA. Questions invited. The patient/parents/legal guardian/POA seems to understand and agrees to proceedwith anesthesia plan. Reviewed the physical assessment, medical history, allergy history and patient home medications list prior to surgery/procedure/anesthetic and documented any changes. Performed airway and anesthesia risk assessments. Anesthesia Type Anesthesia Type: MAC History Source History Obtained from:: Patient and Chart Anesthesia Focused Assessment* Temperature: 98 F Pulse Rate: 100 Blood Pressure: 140/103 Respiratory Rate: 14 Pulse Ox: 98 Oxygen Delivery Method: Room Air Airway Assessment Mouth opens: >3 cm Mallampati Score: II Teeth Condition: Chipped/Broken and Missing (Missing front upper left tooth) Neck Range of motion (ROM): Full ROM Labs Anesthesia Preop lab: CBC WBC 7.0 K/mm3 (4.4-11.0) 03/10/25 18:03/10/25 RBC 4.63 M/mm3 (4.6-6.2) 03/10/25 18:03/10/25 Hgb 14.9 g/dL (13.0-16.5) 03/10/25 18:03/10/25 Hct 41.7 % (40-54) 03/10/25 18:03/10/25 Plt Count 156 K/mm3 (150-450) 03/10/25 18:27 03/10/25 CHEMISTRY Potassium 4.9 mmol/L (3.3-5.1) 03/10/25 18:03/10/25 Sodium 136 mmol/L (133-145) 03/10/25 18:27 03/10/25 Magnesium 2.0 mg/dL (1.5-2.2) 03/03/25 19:25 03/03/25 Phosphorus 2.5 mg/dL (2.7-4.5) L 03/05/25 06:38 03/05/25 BUN 16 mg/dL (4-19) 03/10/25 18:27 03/10/25 Creatinine 1.78 mg/dL (0.70-1.20) H 03/10/25 18: Glucose 99 mg/dL (70-99) 03/10/25 18:03/10/25 POC Glucose 105 mg/dL (70-110) 06/24/15 11:48 06/24/15 TSH 1.110 uIU/mL (0.300-4.200) 03/03/25 23:30 02/19 10/13 COAG PT 13.5 SECONDS (11.7-14.9) 03/04/25 17:10 Pre-Assessment Diagnosis/Proposed Procedure Planned Operative Procedure(s): Colonoscopy,EGD Anesthesia History 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 When Was Last Pacemaker Check QUESTION #4 FULL TEXT: You/Your Family Experience fever (hyperthermia) with Anesthesia Last Oral Intake Last Oral intake: Last Oral Intake NPO since 06:30 03/29/25 09:05 Meds taken in AM with sips of Yes 03/29/25 09:05 water? Meds patient instructed to take am of surgery PONV PONV - stock patcher: PONV - stock patcher Female No 03/25/25 16:43 HX of Motion Sickness No 03/25/25 16:43 HX of N/V After Surgery No 03/25/25 16:43 Non-Smoker Yes 03/25/25 16:43 Duration of Surgery greater No 03/25/25 16:43 than 60 minutes Number of Risk Factors 1 03/25/25 16:43 PONV Score Low Risk 03/25/25 16:43 Height & Weight Height & Weight: Anesthesia: Height & Weight Height 5 ft 10 in 03/29/25 09:05 Weight: 96 kg 03/29/25 09:05 Body Mass Index (BMI) 30.3 03/29/25 09:05 Respiratory Assessment Respiratory Assessment - stock patcher: Respiratory Tract Infection Hx - stock patcher Hx Respiratory Tract Infection No 03/25/25 16:43 STOP Sleep Apnea STOP Sleep Apnea - stock patcher: STOP Sleep Apnea - stock patcher Hx Hypertension Yes: ON MEDS 03/25/25 16:43 Hx Sleep Apnea No 03/25/25 16:43 CPAP No 03/03/25 22:20 BIPAP No 03/03/25 22:20 Do you snore loudly (louder Yes 03/25/25 16:43 than talking or can be heard Do you often feel tired/ Yes 03/25/25 16:43 fatigued/ sleepy during daytime? Has anyone observed you stop Yes 03/25/25 16:43 breathing during sleep? STOP Results Positive 03/25/25 16:43 QUESTION #5 FULL TEXT : Do you snore loudly (louder than talking or can be heard through closed doors)? Tobacco Use History Tobacco Use History - stock patcher: Tobacco Use History - stock patcher Tobacco Use Smoking Status Former smoker 03/25/25 16:43 Hx Tobacco Use No 03/25/25 16:43 Years Smoking Packs Smoked per Day Smoking Cessation Date was No - quit smoking greater 03/25/25 16:43 within the last 15 years than 15 years ago Hx Smoking Cessation Date 07/22/18 03/25/25 16:43 Hx Smoking Cessation No 03/25/25 16:43 Counseling Hematologic Medial History Hematologic Hx - stock patcher: Hematologic Medical Hx - wax blender Hx of Blood Transfusion No 03/25/25 16:43 Hx of Transfusion in last 3 No 03/25/25 16:43 Months Date of Last Transfusion (if within last 3 months) Ever experience any problems No 03/25/25 16:43 with transfusion(s)? Specify any problems Hx of Preganancy in last 3 N/A 03/25/25 16:43 Months Nurse Filling Out Transfusion CASTILLO 03/25/25 16:43 & Questions: Date: 03/25/25 03/25/25 16:43 Time: 16:45 03/25/25 16:43 Patient unable to answer at this time (ie. confused, unrespo /Reproduction History /Reproductive History - stock patcher: /Reproductive Hx- stock patcher Hx Now No 03/25/25 16:43 Gestational Age (in weeks): EDC: Hx Hx Para Hx Section SAB No 03/25/25 16:43 Active Medications Active Medications: Current Medications Generic Name Dose Route Start Last Admin Trade Name Freq PRN Reason Stop Dose Admin Lactated Ringer's 1,000 mls @ 15 mls/hr 03/29/25 08:45 03/29/25 09:14 IV 15 mls/hr .Q48H MAGDA Administration PFSH Medical History Wears glasses Hyponatremia Rhabdomyolysis Personal history of colon polyps, unspecified Family history of malignant neoplasm of colon in father Anxiety Kidney disease GERD (gastroesophageal reflux disease) GI bleed Sleep apnea Former smoker Asthma Irregular heart beat Myocardial infarct TIA (transient ischemic attack) Abdominal pain Alcohol withdrawal Acute dehydration Nausea & vomiting Dehydration Alcoholic hepatitis Thrombocytopenia LUZ MARIA (acute kidney injury) Alcohol withdrawal Carotid artery disease Chronic kidney disease History of non-ST elevation myocardial infarction (NSTEMI) Coronary artery disease COPD (chronic obstructive pulmonary disease) Lung nodule Tobacco use WILSON (dyspnea on exertion) Fatigue Chest pain Heart failure COPD exacerbation Hypoxia Community acquired pneumonia Alcohol intoxication Suicidal ideation Atherosclerosis of coronary artery of bill [place]ore[place] heart without angina pectoris Depression NSTEMI (non-ST elevated myocardial infarction) Obesity (BMI 30.0-34.9) Hyperlipidemia Hypertension Alcohol abuse Chest pain Home Medications ?Medication ?Instructions ?Recorded ?Last Taken ?Type omeprazole 20 mg capsule,delayed 20 mg PO DAILY heart burn 06/17/14 03/29/25 06:30 History release nitroglycerin 0.4 mg sublingual 0.4 mg sublingual Q5M PRN Chest 12/24/22 Unknown Rx tablet Pain #25 tabs cyclobenzaprine 10 mg tablet 10 mg PO DAILY PRN Pain 0 10/14/23 Unknown History folic acid 1 mg tablet 1 mg PO DAILY 10/14/23 Unkno wn History magnesium oxide 400 mg (241.3 mg 400 mg PO DAILY 10/13 Unknown History magnesium) tablet thiamine HCl (vitamin B1) 100 mg 100 mg PO DAILY 10/13 Unknown History tablet buspirone 7.5 mg tablet 7.5 mg PO TID 09/29/2403/29 06:30 History carvedilol 25 mg tablet 25 mg PO BID 09/29/24 History lisinopril 10 mg tablet 10 mg PO QDAY 09/29/24 Unkno wn History Held on 03/05/25. Instructions: Hold for week follow-up with BMP PCP before resumption. trazodone 50 mg tablet 100 mg PO QHS 09/29/24 Unkno wn History aspirin 81 mg tablet,delayed 81 mg PO DAILY heart #90 tabs 10/27/24 03/25/25 Rx release atorvastatin 40 mg tablet 40 mg PO QHS #90 tabs Unknown Rx Held on 03/05/25. Instructions: Hold for 7 days cyanocobalamin (vitamin B-12) 100 100 mcg PO DAILY 05/15 Unknown History mcg tablet (Vitamin B-12) multivitamin (Daily Multi-Vitamin 1 tab PO DAILY 01/28 Unknown History tablet) Allergy/AdvReac Type Severity Reaction Status Date / Time No Known Allergies Allergy Verified 03/29/25 09:03 Family History Mother CAD (coronary artery disease) Father CAD (coronary artery disease) Colon cancer, Onset Age: 53 At 53yrs Brother CAD (coronary artery disease) Myocardial infarction Sister CAD (coronary artery disease) Surgical History Hx of colonoscopy History of coronary artery stent placement Stented coronary artery History of tonsillectomy Hx of eye surgery Social History household members: significant other housing: apartment current occupational status: employed current occupation: [employer] Smoking Status: Former smoker alcohol intake: current alcohol intake frequency: 3 or more drinks per day substance use type: former substance user caffeine: Yes Type: coffee Number of servings: 2 what type of physical activity do you participate in: none Review of Systems (Anesthesia) ROS Narrative System reviewed and no additional complaints, except as documented. 03/29/25929 <Electronically signed by Silvio Rios MD> Date _ Silvio Rios MD Cosigner Signature: Date CC: ~ Signed [facility] Work Phone: [phone] Procedure note [facility] Medical Records Department [address] [place] [address] Colonoscopy Report MR#: [id number] Acct: [id number] Name: BETHNAY MONTALVO Rep #:[id number] : 1965 59 From: Julius Lovell DO PCP: XUAN Armendariz Status:REG S DC Patient Name: Bethany Montalvo Procedure Date: 03/29/2025 10:08 AM Date of : 1965 Age: 59 Procedure: Colonoscopy Indications: Chronic diarrhea Providers: Julius Lovell DO Referring MD: Keren Kwon Medicines: Monitored Anesthesia Care Patient Profile: This is a 59 year old male. Refer to note in patient chart for documentation of history and physical. Patient has symptoms. Last Colonoscopy: more than 10 years ago. Complications: No immediate complications. Procedure: Pre-Anesthesia Assessment: - Prior to the procedure, a History and Physical was performed, and patient medications and allergies were reviewed. The patient is competent. The risks and benefits of the procedure and the sedation options and risks were discussed with the patient. All questions were answered and informed consent was obtained. Patient identification and proposed procedure were verified by the physician in the pre-procedure area. Mental Status Examination: alert and oriented. Airway Examination: normal oropharyngeal airway and neck mobility. Respiratory Examination: clear to auscultation. CV Examination: normal. Prophylactic Antibiotics: The patient does not require prophylactic antibiotics. Prior Anticoagulants: The patient has taken no anticoagulant or antiplatelet agents except for NSAID medication. ASA Grade Assessment: II - A patient with mild systemic disease. After reviewing the risks and benefits, the patient was deemed in satisfactory condition to undergo the procedure. The anesthesia plan was to use monitored anesthesia care (MAC). Immediately prior to administration of medications, the patient was re-assessed for adequacy to receive sedatives. The heart rate, respiratory rate, oxygen saturations, blood pressure, adequacy of pulmonary ventilation, and response to care were monitored throughout the procedure. The physical status of the patient was re-assessed after the procedure. After I obtained informed consent, the scope was passed under direct vision. Throughout the procedure, the patient's blood pressure, pulse, and oxygen saturations were monitored continuously. The Colonoscope was introduced through the anus and advanced to the terminal ileum. The colonoscopy was performed without difficulty. The patient tolerated the procedure well. The quality of the bowel preparation was good. The terminal ileum, ileocecal valve, appendiceal orifice, and rectum were photographed. Scope In: Scope Withdrawal Time 0 hours 10 minutes 53 seconds Scope Out: 10:23:27 AM Findings: The perianal and digital rectal examinations were normal. Multiple small and large-mouthed diverticula were found in the recto-sigmoid colon and sigmoid colon. A 5 mm polyp was found in the sigmoid colon. The polyp was sessile. The polyp was removed with a hot snare. Resection and retrieval were complete. Verification of patient identification for the specimen was done. Estimated blood loss was minimal. An area of congested mucosa was found in the sigmoid colon, in the descending colon, at the splenic flexure and in the ascending colon. Biopsies were taken with a cold forceps for histology. Verification of patient identification for the specimen was done. Estimated blood loss was minimal. The terminal ileum appeared normal. Biopsies were taken with a cold forceps for histology. Impression: - Diverticulosis in the recto-sigmoid colon and in the sigmoid colon. - One 5 mm polyp in the sigmoid colon, removed with a hot snare. Resected and retrieved. - Congested mucosa in the sigmoid colon, in the descending colon, at the splenic flexure and in the ascending colon. Biopsied. - The examined portion of the ileum was normal. Biopsied. Recommendation: - Discharge patient to home. - Resume previous diet. - Continue present medications. - Await pathology results. - Repeat colonoscopy in 5 years for surveillance. Procedure Code(s): --- Professional --- 88236, Colonoscopy, flexible; with removal of tumor(s), polyp(s), or other lesion(s) by snare technique 96874, 59, Colonoscopy, flexible; with biopsy, single or multiple CPT copyright 2021 [employer]. All rights reserved. The codes documented in this report are preliminary and upon lard renderer review may be revised to meet current compliance requirements. Julius Lovell DO 03/29/2025 10:38:33 AM This report has been signed electronically. Number of Addenda: 0 Note Initiated On: 03/29/2025 10:08 AM 03/29/25 1038 Date _ Julius Lovell DO Cosigner Signature: Date (if indicated) CC: PARTS PULLER-C Keren Kwon; Julius Lovell DO ~ Date Dictated: 03/29/25 1008 Date Transcribed: Briar Shop Supervisor: RF Signed [facility]09-08-2025 Procedure note [facility] Medical Records Department [address] [place] [address] Provation Physician Letter MR#: [id number] Acct: [id number] Name: BETHANY MONTALVO Rep #:[id number] : 1965 59 From: Julius Lovell DO PCP: XUAN Armendariz Status:REG S DC 03/29/2025 Keren Kwon Re : Colonoscopy procedure for Bethany Montalvo Collins Kwon This procedure was performed on Saturday, March 29, 2025. My impressions and recommendations are as follows: Impressions : - Diverticulosis in the recto-sigmoid colon and in the sigmoid colon. - One 5 mm polyp in the sigmoid colon, removed with a hot snare. Resected and retrieved. - Congested mucosa in the sigmoid colon, in the descending colon, at the splenic flexure and in the ascending colon. Biopsied. - The examined portion of the ileum was normal. Biopsied. Recommendations : - Discharge patient to home. - Resume previous diet. - Continue present medications. - Await pathology results. - Repeat colonoscopy in 5 years for surveillance. My findings are described in the full procedure note, which is enclosed. If I can be of further assistance, please feel free to contact me at . Sincerely, Julius Lovell DO 03/29/2025 10:38:33 AM This report has been signed electronically. 03/29/25 1038 Date _ Julius Friend DO Cosigner Signature: Date (if indicated) CC: DO Edward Bryant Date Dictated: 03/29/25 1008 Date Transcribed: Briar Shop Supervisor: RF Signed [facility]09-08-2025 Consult note [facility] Medical Records Department [address] [place] [address] Anesthesia Postop Eval I 03/29/25 1034 MR#: [id number] Acct: [id number] Name: BETHANY MONTALVO Rep #:[id number] : 1965 59 From: Luis A Lizarraga PCP: XUAN Armendariz Status:REG S DC Y Race: C Location: [place] [address] ADDENDUM by AMAYA Lizarraga on 03/29/25 at 1036 Addendum signed early by mistake, actual time 1034 03/29/25 1036 > Date _ Luis A Lizarraga cc: ~* Signed Anesthesia: Postop Eval I Current Vital Signs Temperature: 97 F Pulse Rate: 89 Blood Pressure: 116/44 Respiratory Rate: 18 Pulse Ox: 95 Oxygen Delivery Method: Room Air Assessment Airway patent: Yes Spontaneous unlabored respirations: Yes Mental status: Asleep nausea: No Vomiting: No Anesthesia Complication: No Fluid Hydration Crystalloid volume administer (ml): 800 Total IV fluid infused: 800 Progress Note Anesthesia document: Postop Eval 1 completed: Yes 03/29/25 0957 > Date _ Luis A Sinclair Signature: Date CC: ~ Signed [facility]09-08-2025 Procedure note [facility] Medical Records Department [address] [place] [address] EGD Report MR#: [id number] Acct: [id number] Name: BETHANY MONTALVO Rep #:[id number] : 1965 59 From: Julius Lovell DO PCP: XUAN Armendariz Status:REG S DC Patient Name: Bethany Montalvo Procedure Date: 03/29/2025 10:05 AM Date of : 1965 Age: 59 Procedure: Upper GI endoscopy Indications: Epigastric abdominal pain, Functional Dyspepsia Providers: Julius Lovell DO Referring MD: Keren Kwon Medicines: Monitored Anesthesia Care Patient Profile: This is a 59 year old male. Refer to note in patient chart for documentation of history and physical. Patient has symptoms. Complications: No immediate complications. Procedure: Pre-Anesthesia Assessment: - Prior to the procedure, a History and Physical was performed, and patient medications and allergies were reviewed. The patient is competent. The risks and benefits of the procedure and the sedation options and risks were discussed with the patient. All questions were answered and informed consent was obtained. Patient identification and proposed procedure were verified by the physician in the pre-procedure area. Mental Status Examination: alert and oriented. Airway Examination: normal oropharyngeal airway and neck mobility. Respiratory Examination: clear to auscultation. CV Examination: normal. Prophylactic Antibiotics: The patient does not require prophylactic antibiotics. Prior Anticoagulants: The patient has taken no anticoagulant or antiplatelet agents except for NSAID medication. ASA Grade Assessment: II - A patient with mild systemic disease. After reviewing the risks and benefits, the patient was deemed in satisfactory condition to undergo the procedure. The anesthesia plan was to use monitored anesthesia care (MAC). Immediately prior to administration of medications, the patient was re-assessed for adequacy to receive sedatives. The heart rate, respiratory rate, oxygen saturations, blood pressure, adequacy of pulmonary ventilation, and response to care were monitored throughout the procedure. The physical status of the patient was re-assessed after the procedure. After obtaining informed consent, the endoscope was passed under direct vision. Throughout the procedure, the patient's blood pressure, pulse, and oxygen saturations were monitored continuously. The Colonoscope was introduced through the mouth, and advanced to the third part of the duodenum. Small bowel enteroscopy was deemed necessary. The upper GI endoscopy was accomplished without difficulty. The patient tolerated the procedure well. Scope In: Scope Out: 10:08:20 AM Findings: Patchy mild mucosal changes characterized by congestion were found in the gastric body. Biopsies were taken with a cold forceps for histology. Biopsies were taken with a cold forceps for Helicobacter pylori testing. Verification of patient identification for the specimen was done. Estimated blood loss was minimal. Mild portal hypertensive gastropathy was found in the entire examined stomach. Biopsies were taken with a cold forceps for histology. Verification of patient identification for the specimen was done. Estimated blood loss was minimal. Patchy mildly erythematous mucosa without active bleeding and with no stigmata of bleeding was found in the entire duodenum. Biopsies were taken with a cold forceps for histology. Verification of patient identification for the specimen was done. Estimated blood loss was minimal. Impression: - Congested mucosa in the gastric body. Biopsied. - Portal hypertensive gastropathy. Biopsied. - Erythematous duodenopathy. Biopsied. Recommendation: - Discharge patient to home. - Resume previous diet. - Continue present medications. - Await pathology results. Procedure Code(s): --- Professional --- 03019, Small intestinal endoscopy, enteroscopy beyond second portion of duodenum, not including ileum; with biopsy, single or multiple CPT copyright 2021 [employer]. All rights reserved. The codes documented in this report are preliminary and upon lard renderer review may be revised to meet current compliance requirements. Julius Lovell DO 03/29/2025 10:32:48 AM This report has been signed electronically. Number of Addenda: 0 Note Initiated On: 03/29/2025 10:05 AM 03/29/25 1033 Date _ Julius Bello Signature: Date (if indicated) CC: XUAN Lovell DO ~ Date Dictated: 03/29/25 1005 Date Transcribed: Briar Shop Supervisor: FRANKLIN Signed [facility]09-08-2025 Procedure note [facility] Medical Records Department [address] [place] [address] Provation Physician Letter MR#: [id number] Acct: [id number] Name: BETHANY MONTALVO Rep #:[id number] : 1965 59 From: Julius Lovell DO PCP: XUAN Armendariz Status:REG S DC 03/29/2025 Keren Kwon Re : Upper GI endoscopy procedure for Bethany Montalvo Dear Doyle This procedure was performed on Saturday, March 29, 2025. My impressions and recommendations are as follows: Impressions : - Congested mucosa in the gastric body. Biopsied. - Portal hypertensive gastropathy. Biopsied. - Erythematous duodenopathy. Biopsied. Recommendations : - Discharge patient to home. - Resume previous diet. - Continue present medications. - Await pathology results. My findings are described in the full procedure note, which is enclosed. If I can be of further assistance, please feel free to contact me at . Sincerely, Julius Lovell DO 03/29/2025 10:32:48 AM This report has been signed electronically. 03/29/25 1033 Date _ Julius Tafoyaignmaricruz Signature: Date (if indicated) CC: XUAN Lovell DO ~ Date Dictated: 03/29/25 1005 Date Transcribed: Briar Shop Supervisor: FRANKLIN Signed [facility]09-08-2025 History and physical note [facility] Medical Records Department [address] [place] [address] History & Physical Exam 03/29/25 0950 MR#: [id number] Acct: [id number] Name: BETHANY MONTALVO Rep #:[id number] : 1965 59 From: Julius Lovell DO PCP: XUAN Armendariz Status:REG S DC Location: [place] [address] HPI - General General Date of Admission: 03/29/25 Date of Service: 03/29/25 Chief Complaint: Varices screening and screening colonoscopy HPI Narrative BETHANY MONTALVO, is a 59 M who presentsDAARMIN MONTALVO, is a 58 M who presents [...] occasional caffeine intake - former smoker - quit chew 3 weeks ago - denies any marijuana in the past 3 weeks - IBU PRN - Naproxen PRN - dislocated right elbow - weight is stable - denies any h/o blood transfusion - denies any h/o IVDU - EtOH - 2-3 a day and has binges 6-7 drinks a day - reports this is a higher concentration beer 8% - alcohol consumption dates back 43 years - denies any bruising - family h/o alcohol use (maternal uncles) - liver cirrhosis - 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 [place] Friend, ) Wears glasses Hyponatremia Rhabdomyolysis Personal history of colon polyps, unspecified Family history of malignant neoplasm of colon in father Anxiety Kidney disease GERD (gastroesophageal reflux disease) GI bleed Sleep apnea Former smoker Asthma Irregular heart beat Myocardial infarct TIA (transient ischemic attack) Abdominal pain Alcohol withdrawal Acute dehydration Nausea & vomiting Dehydration Alcoholic hepatitis Thrombocytopenia LUZ MARIA (acute kidney injury) Alcohol withdrawal Carotid artery disease Chronic kidney disease History of non-ST elevation myocardial infarction (NSTEMI) Coronary artery disease COPD (chronic obstructive pulmonary disease) Lung nodule Tobacco use WILSON (dyspnea on exertion) Fatigue Chest pain Heart failure COPD exacerbation Hypoxia Community acquired pneumonia Alcohol intoxication Suicidal ideation Atherosclerosis of coronary artery of [place] heart without angina pectoris Depression NSTEMI (non-ST elevated myocardial infarction) Obesity (BMI 30.0-34.9) Hyperlipidemia Hypertension Alcohol abuse Chest pain Home Medications ?Medication ?Instructions ?Recorded ?Last Taken ?Type omeprazole 20 mg capsule,delayed 20 mg PO DAILY heart burn 06/17/14 03/29/25 06:30 History release nitroglycerin 0.4 mg sublingual 0.4 mg sublingual Q5M PRN Chest 12/24/22 Unknown Rx tablet Pain #25 tabs cyclobenzaprine 10 mg tablet 10 mg PO DAILY PRN Pain 0 10/14/23 Unknown History folic acid 1 mg tablet 1 mg PO DAILY 10/14/23 Unkno wn History magnesium oxide 400 mg (241.3 mg 400 mg PO DAILY 10/13 Unknown History magnesium) tablet thiamine HCl (vitamin B1) 100 mg 100 mg PO DAILY 10/13 Unknown History tablet buspirone 7.5 mg tablet 7.5 mg PO TID 09/29/2403/29 06:30 History carvedilol 25 mg tablet 25 mg PO BID 09/29/24 History lisinopril 10 mg tablet 10 mg PO QDAY 09/29/24 Unkno wn History Held on 03/05/25. Instructions: Hold for week follow-up with BMP PCP before resumption. trazodone 50 mg tablet 100 mg PO QHS 09/29/24 Unkno wn History aspirin 81 mg tablet,delayed 81 mg PO DAILY heart #90 tabs 10/27/24 03/25/25 Rx release atorvastatin 40 mg tablet 40 mg PO QHS #90 tabs Unknown Rx Held on 03/05/25. Instructions: Hold for 7 days cyanocobalamin (vitamin B-12) 100 100 mcg PO DAILY 05/15 Unknown History mcg tablet (Vitamin B-12) multivitamin (Daily Multi-Vitamin 1 tab PO DAILY 01/28 Unknown History tablet) Allergy/AdvReac Type Severity Reaction Status Date / Time No Known Allergies Allergy Verified 03/29/25 09:03 Family History Mother CAD (coronary artery disease) Father CAD (coronary artery disease) Colon cancer, Onset Age: 53 At 53yrs Brother CAD (coronary artery disease) Myocardial infarction Sister CAD (coronary artery disease) Surgical History Hx of colonoscopy History of coronary artery stent placement Stented coronary artery History of tonsillectomy Hx of eye surgery Social History household members: significant other housing: apartment current occupational status: employed current occupation: [employer] Smoking Status: Former smoker alcohol intake: current alcohol intake frequency: 3 or more drinks per day substance use type: former substance user caffeine: Yes Type: coffee Number of servings: 2 what type of physical activity do you participate in: none ROS Constitutional Constitutional: Denies fatigue, fever(s), poor appetite, weight gain or weight loss Gastrointestinal Gastrointestinal: Denies belching, bloating, change in bowel habits, change in stool character, chewing difficulty, coffee ground emesis, constipation, cramping, diarrhea, dyspepsia, dysphagia, earlysatiety, excessive flatus, fecalincontinence, heartburn, hematemesis, hematochezia, hemorrhoids, loose stools, melena, nausea, odynophagia, rectal bleeding, tenesmus, vomiting or weight changes Vital Signs Vital Signs Vital Signs: 03/29/25 09:05 03/29/25 09:05 03/29/25 09:25 Temperature 98 F 98 F Temperature Source Temporal Pulse Rate 100 100 Respiratory Rate 14 14 Respiratory Pattern Normal Blood Pressure 140/103 H 140/103 H Blood Pressure Mean 115 Blood Pressure Source Monitor Blood Pressure Position Sitting Blood Pressure Location Left Arm Pulse Ox 98 98 Oxygen Delivery Method Room Air Room Air Weight Weight: 211 lb 10.3 oz Body Mass Index (BMI) 30.3 Physical Exam Const alert, oriented x3, no apparent distress and healthy appearing General Appearance: cooperative GI normal to inspection, nondistended, normoactive bowel sounds, soft to palpation,non-tender and non-distended Percussion: normal to percussion Rectal Exam: deferred Assessment & Plan Assessment/Plan (1) Heartburn: (2) Alcohol abuse: (3) Encounter for screening colonoscopy: (4) Family history of malignant neoplasm of colon in father: PLAN: Assessment and Plan Assessment and Plan (1) Gastroesophageal reflux disease: Qualifiers: Esophagitis presence: esophagitis presence not specified Qualified Code(s): K21.9 - Gastro-esophageal reflux disease without esophagitis (2) Alcohol abuse: Status: Chronic (3) Gallbladder polyp: Status: Acute (4) Steatosis, liver: Status: Acute (5) Heartburn: Status: Acute (6) Thrombocytopenia: Status: Acute Orders: Orders CBC W/Diff, Automated Today F10.10 - Alcohol abuse, uncomplicated, K76.0 - Fatty (change of) liver,not elsewhere classified, K82.4 - Cholesterolosis of gallbladder, R12 - Heartburn Comprehensive Metabolic Profil Today F10.10 - Alcohol abuse, uncomplicated, K76.0 - Fatty (change of) liver, not elsewhere classified, K82.4 - Cholesterolosis of gallbladder, R12 - Heartburn Hepatitis A AB, Total Today F10.10 - Alcohol abuse, uncomplicated, K76.0 - Fatty (change of) liver,not elsewhere classified, K82.4 - Cholesterolosis of gallbladder, R12 - Heartburn Hepatitis B Core Ab Total Today F10.10 - Alcohol abuse, uncomplicated, K76.0 - Fatty (change of) liver, not elsewhere classified, K82.4 - Cholesterolosis of gallbladder, R12 - Heartburn Hepatitis B Surface Antibody Today F10.10 - Alcohol abuse, uncomplicated, K76.0- Fatty (change of) liver, not elsewhere classified, K82.4 - Cholesterolosis of gallbladder, R12 - Heartburn Hepatitis B Surface Antigen Today F10.10 - Alcohol abuse, uncomplicated, K76.0 - Fatty (change of) liver, not elsewhere classified, K82.4 - Cholesterolosis of gallbladder, R12 - Heartburn Hepatitis C Antibody Today F10.10 - Alcohol abuse, uncomplicated, K76.0 - Fatty(change of) liver, not elsewhere classified, K82.4 - Cholesterolosis of gallbladder, R12 - Heartburn Miscellaneous Lab Procedure Today F10.10 - Alcohol abuse, uncomplicated, K76.0 - Fatty (change of) liver, not elsewhere classified, K82.4 - Cholesterolosis of gallbladder, R12 - Heartburn Prothrombin Time w/INR Today F10.10 - Alcohol abuse, uncomplicated, K76.0 - Fatty (change of) liver, not elsewhere classified, K82.4 - Cholesterolosis of gallbladder, R12 - Heartburn ABD Limited w/ Elastography Today F10.10 - Alcohol abuse, uncomplicated, K76.0 - Fatty (change of) liver, not elsewhere classified, K82.4 - Cholesterolosis of gallbladder, R12 - Heartburn EGD 12/03/24 R12 - Heartburn Plan 58y/o male presents for consultation for evaluation of liver steatosis. ABD US completed in 2022 revealed liver steatosis and gallbladder polyp. Labs completed September 2023 revealed thrombocytopenia (145) and mildly elevated AST (55). He reports a long history of alcohol abuse and family history of alcoholic cirrhosis. He denies easy bruising, bleeding, pain or confusion. I have ordered additional labs, FibroScan and a repeat abdominal ultrasound. He reports a long history of esophageal reflux which is managed with omeprazole daily. He is scheduled for colonoscopy and we will perform an EGD at the same time. Patient Instructions: Alcohol cessation is encouraged Continue omeprazole daily. Support system for alcohol cessation is encouraged including reestablishing witha counselor and attending AA meetings. Follow-up in the office posttesting to review results. Plan Details Follow Up: 3 Months 03/29/25 0952 Cosigner Signature (if applicable): CC: XUAN Kwon; Julius Lovell DO~ Signed [facility]09-08-2025 [facility] Medical Records Department [address] [place] [id number] History Physical Exam 03/29/25 0950 MR#: [id number] Acct: [id number] Name: BETHANY MONTALVO Rep #: [id number] : 1965 59 From: Julius Lovell DO PCP: XUAN Armendariz [place] [facility] [place]: [place] [address] HPI - General General Date of Admission: 03/29/25 Date of Service: 03/29/25 Chief Complaint: Varices screening and screening colonoscopy HPI Narrative BETHANY MONTALVO, is a 59 M who presentsDAARMIN MONTALVO is a 58 M who presents to [...] occasional caffeine intake - former smoker - quit chew 3 weeks ago - denies any marijuana in the past 3 weeks - IBU PRN - Naproxen PRN - dislocated right elbow - weight is stable - denies any h/o blood transfusion - denies any h/o IVDU - EtOH - 2-3 a day and has binges 6-7 drinks a day - reports this is a higher concentration beer 8% - alcohol consumption dates back 43 years - denies any bruising - family h/o alcohol use (maternal uncles) - liver cirrhosis - 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 Madrid Friend, DO) Wears glasses Hyponatremia Rhabdomyolysis Personal history of colon polyps, unspecified Family [...] Suicidal ideation Atherosclerosis of coronary artery of [place] heart without angina pectoris Depression NSTEMI (non-ST elevated myocardial infarction) Obesity (BMI 30.0-34.9) Hyperlipidemia Hypertension Alcohol abuse Chest pain Home Medications ???Medication ???Instructions ???Recorded ???Last Taken ???Type omeprazole 20 mg capsule,delayed 20 mg PO DAILY heart burn 06/17/14 03/29/25 06:30 History release nitroglycerin 0.4 mg sublingual 0.4 mg sublingual Q5M PRN Chest Unknown Rx tablet Pain #25 tabs cyclobenzaprine 10 mg tablet 10 mg PO DAILY PRN Pain 10/14/23 U nknown History folic acid 1 mg tablet 1 mg PO DAILY 10/14/23 Unknown His tory magnesium oxide 400 mg (241.3 mg 400 mg PO DAILY 10/14/23 Unknown H istory magnesium) tablet thiamine HCl (vitamin B1) 100 mg 100 mg PO DAILY 10/14/23 Unknown H istory tablet buspirone 7.5 mg tablet 7.5 mg PO TID 09/29/24 03/29/25 06 :30 History carvedilol 25 mg tablet 25 mg PO BID 09/29/24 03/28/25 His tory lisinopril 10 mg tablet 10 mg PO QDAY 09/29/24 Unknown His tory Held on 03/05/25. Instructions: Hold for week follow-up with BMP PCP before resumption. trazodone 50 mg tablet 100 mg PO QHS 09/29/24 Unknown His tory aspirin 81 mg tablet,delayed 81 mg PO DAILY heart #90 tabs 04/0 03/1503/25/25 Rx release atorvastatin 40 mg tablet 40 mg PO QHS #90 tabs 10/27/24 Unk nown Rx Held on 03/05/25. Instructions: Hold for 7 days cyanocobalamin (vitamin B-12) 100 100 mcg PO DAILY 01/28/25 Unknown History mcg tablet (Vitamin B-12) multivitamin (Daily Multi-Vitamin 1 tab PO DAILY 01/28/25 Unknown H istory tablet) Allergy/AdvReac Type Severity Reaction Status Date / Time No Known Allergies Allergy Verified 03/29/25 09:03 Family History Mother CAD (coronary artery disease) Father CAD (coronary artery disease) Colon cancer, Onset Age: 53 At 53yrs Brother CAD (coronary artery disease) Myocardial infarction Sister CAD (coronary artery disease) Surgical History Hx of colo (more content not included)...[facility]09-08-2025 Consult note [facility] Medical Records Department [address] [place] [address] Pre-Anesthesia Evaluation 03/29/25921 MR#: [id number] Acct: [id number] Name: BETHANY MONTALVO Rep #:[id number] : 1965 59 From: Silvio Hinkle PCP: Keren Kwon, [employer]-C Status:REG S DC Y Race: C Location: [place] [address] ASA Classification* ASA Classification ASA Classification: 3 Assessment & Plan Anesthesia* Anesthesia Assessment Anesthesia Assessment: Discussed sedation and/or anesthesia options, risks, benefits, and alternatives with patient/parents/legal guardian/POA. Questions invited. The patient/parents/legal guardian/POA seems to understand and agrees to proceedwith anesthesia plan. Reviewed the physical assessment, medical history, allergy history and patient home medications list prior to surgery/procedure/anesthetic and documented any changes. Performed airway and anesthesia risk assessments. Anesthesia Type Anesthesia Type: MAC History Source History Obtained from:: Patient and Chart Anesthesia Focused Assessment* Temperature: 98 F Pulse Rate: 100 Blood Pressure: 140/103 Respiratory Rate: 14 Pulse Ox: 98 Oxygen Delivery Method: Room Air Airway Assessment Mouth opens: >3 cm Mallampati Score: II Teeth Condition: Chipped/Broken and Missing (Missing front upper left tooth) Neck Range of motion (ROM): Full ROM Labs Anesthesia Preop lab: CBC WBC 7.0 K/mm3 (4.4-11.0) 03/10/25 18:03/10/25 RBC 4.63 M/mm3 (4.6-6.2) 03/10/25 18:27 03/10/25 Hgb 14.9 g/dL (13.0-16.5) 03/10/25 18:03/10/25 Hct 41.7 % (40-54) 03/10/25 18:03/10/25 Plt Count 156 K/mm3 (150-450) 03/10/25 18:27 03/10/25 CHEMISTRY Potassium 4.9 mmol/L (3.3-5.1) 03/10/25 18:03/10/25 Sodium 136 mmol/L (133-145) 03/10/25 18:27 03/10/25 Magnesium 2.0 mg/dL (1.5-2.2) 03/03/25 19:25 03/03/25 Phosphorus 2.5 mg/dL (2.7-4.5) L 03/05/25 06:38 03/05/25 BUN 16 mg/dL (4-19) 03/10/25 18:27 03/10/25 Creatinine 1.78 mg/dL (0.70-1.20) H 03/10/25 18:27 Glucose 99 mg/dL (70-99) 03/10/25 18:27 03/10/25 POC Glucose 105 mg/dL (70-110) 06/24/15 11:48 06/24/15 TSH 1.110 uIU/mL (0.300-4.200) 03/03/25 23:30 02/19 10/13 COAG PT 13.5 SECONDS (11.7-14.9) 03/04/25 17:10 Pre-Assessment Diagnosis/Proposed Procedure Planned Operative Procedure(s): Colonoscopy,EGD Anesthesia History 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 When Was Last Pacemaker Check QUESTION #4 FULL TEXT: You/Your Family Experience fever (hyperthermia) with Anesthesia Last Oral Intake Last Oral intake: Last Oral Intake NPO since 06:30 03/29/25 09:05 Meds taken in AM with sips of Yes 03/29/25 09:05 water? Meds patient instructed to take am of surgery PONV PONV - stock patcher: PONV - stock patcher Female No 03/25/25 16:43 HX of Motion Sickness No 03/25/25 16:43 HX of N/V After Surgery No 03/25/25 16:43 Non-Smoker Yes 03/25/25 16:43 Duration of Surgery greater No 03/25/25 16:43 than 60 minutes Number of Risk Factors 1 03/25/25 16:43 PONV Score Low Risk 03/25/25 16:43 Height & Weight Height & Weight: Anesthesia: Height & Weight Height 5 ft 10 in 03/29/25 09:05 Weight: 96 kg 03/29/25 09:05 Body Mass Index (BMI) 30.3 03/29/25 09:05 Respiratory Assessment Respiratory Assessment - stock patcher: Respiratory Tract Infection Hx - stock patcher Hx Respiratory Tract Infection No 03/25/25 16:43 STOP Sleep Apnea STOP Sleep Apnea - stock patcher: STOP Sleep Apnea - stock patcher Hx Hypertension Yes: ON MEDS 03/25/25 16:43 Hx Sleep Apnea No 03/25/25 16:43 CPAP No 03/03/25 22:20 BIPAP No 03/03/25 22:20 Do you snore loudly (louder Yes 03/25/25 16:43 than talking or can be heard Do you often feel tired/ Yes 03/25/25 16:43 fatigued/ sleepy during daytime? Has anyone observed you stop Yes 03/25/25 16:43 breathing during sleep? STOP Results Positive 03/25/25 16:43 QUESTION #5 FULL TEXT : Do you snore loudly (louder than talking or can be heard through closeddoors)? Tobacco Use History Tobacco Use History - stock patcher: Tobacco Use History - stock patcher Tobacco Use Smoking Status Former smoker 03/25/25 16:43 Hx Tobacco Use No 03/25/25 16:43 Years Smoking Packs Smoked per Day Smoking Cessation Date was No - quit smoking greater 03/25/25 16:43 within the last 15 years than 15 years ago Hx Smoking Cessation Date 07/22/18 03/25/25 16:43 Hx Smoking Cessation No 03/25/25 16:43 Counseling Hematologic Medial History Hematologic Hx - stock patcher: Hematologic Medical Hx - wax blender Hx of Blood Transfusion No 03/25/25 16:43 Hx of Transfusion in last 3 No 03/25/25 16:43 Months Date of Last Transfusion (if within last 3 months) Ever experience any problems No 03/25/25 16:43 with transfusion(s)? Specify any problems Hx of Preganancy in last 3 N/A 03/25/25 16:43 Months Nurse Filling Out Transfusion CASTILLO 03/25/25 16:43 & Questions: Date: 03/25/25 03/25/25 16:43 Time: 16:45 03/25/25 16:43 Patient unable to answer at this time (ie. confused, unrespo /Reproduction History /Reproductive History - stock patcher: /Reproductive Hx- stock patcher Hx Now No 03/25/25 16:43 Gestational Age (in weeks): EDC: Hx Hx Para Hx Section SAB No 03/25/25 16:43 Active Medications Active Medications: Current Medications Generic Name Dose Route Start Last Admin Trade Name Freq PRN Reason Stop Dose Admin Lactated Ringer's 1,000 mls @ 15 mls/hr 03/29/25 08:45 03/29/25 09:14 IV 15 mls/hr .Q48H MAGDA Administration PFSH Medical History Wears glasses Hyponatremia Rhabdomyolysis Personal history of colon polyps, unspecified Family history of malignant neoplasm of colon in father Anxiety Kidney disease GERD (gastroesophageal reflux disease) GI bleed Sleep apnea Former smoker Asthma Irregular heart beat Myocardial infarct TIA (transient ischemic attack) Abdominal pain Alcohol withdrawal Acute dehydration Nausea & vomiting Dehydration Alcoholic hepatitis Thrombocytopenia LUZ MARIA (acute kidney injury) Alcohol withdrawal Carotid artery disease Chronic kidney disease History of non-ST elevation myocardial infarction (NSTEMI) Coronary artery disease COPD (chronic obstructive pulmonary disease) Lung nodule Tobacco use WILSON (dyspnea on exertion) Fatigue Chest pain Heart failure COPD exacerbation Hypoxia Community acquired pneumonia Alcohol intoxication Suicidal ideation Atherosclerosis of coronary artery of [place] heart without angina pectoris Depression NSTEMI (non-ST elevated myocardial infarction) Obesity (BMI 30.0-34.9) Hyperlipidemia Hypertension Alcohol abuse Chest pain Home Medications ?Medication ?Instructions ?Recorded ?Last Taken ?Type omeprazole 20 mg capsule,delayed 20 mg PO DAILY heart burn 06/17/14 03/29/25 06:30 History release nitroglycerin 0.4 mg sublingual 0.4 mg sublingual Q5M PRN Chest 12/24/22 Unknown Rx tablet Pain #25 tabs cyclobenzaprine 10 mg tablet 10 mg PO DAILY PRN Pain 0 3/25/24 Unknown History folic acid 1 mg tablet 1 mg PO DAILY 10/14/23 Unkno wn History magnesium oxide 400 mg (241.3 mg 400 mg PO DAILY 10/13 Unknown History magnesium) tablet thiamine HCl (vitamin B1) 100 mg 100 mg PO DAILY 10/13 Unknown History tablet buspirone 7.5 mg tablet 7.5 mg PO TID 09/29/2403/29 06:30 History carvedilol 25 mg tablet 25 mg PO BID 09/29/24 History lisinopril 10 mg tablet 10 mg PO QDAY 09/29/24 Unkno wn History Held on 03/05/25. Instructions: Hold for week follow-up with BMP PCP before resumption. trazodone 50 mg tablet 100 mg PO QHS 09/29/24 Unkno wn History aspirin 81 mg tablet,delayed 81 mg PO DAILY heart #90 tabs 10/27/24 03/25/25 Rx release atorvastatin 40 mg tablet 40 mg PO QHS #90 tabs Unknown Rx Held on 03/05/25. Instructions: Hold for 7 days cyanocobalamin (vitamin B-12) 100 100 mcg PO DAILY 05/15 Unknown History mcg tablet (Vitamin B-12) multivitamin (Daily Multi-Vitamin 1 tab PO DAILY 01/28 Unknown History tablet) Allergy/AdvReac Type Severity Reaction Status Date / Time No Known Allergies Allergy Verified 03/29/25 09:03 Family History Mother CAD (coronary artery disease) Father CAD (coronary artery disease) Colon cancer, Onset Age: 53 At 53yrs Brother CAD (coronary artery disease) Myocardial infarction Sister CAD (coronary artery disease) Surgical History Hx of colonoscopy History of coronary artery stent placement Stented coronary artery History of tonsillectomy Hx of eye surgery Social History household members: significant other housing: apartment current occupational status: employed current occupation: [employer] Smoking Status: Former smoker alcohol intake: current alcohol intake frequency: 3 or more drinks per day substance use type: former substance user caffeine: Yes Type: coffee Number of servings: 2 what type of physical activity do you participate in: none Review of Systems (Anesthesia) ROS Narrative System reviewed and no additional complaints, except as documented. 03/29/25929 > Date _ Silvio Rios MD Cosigner Signature: Date CC: ~ Signed [facility]08-26-2025 Telephone encounter Note* Telephone Encounter - Adeline Gusman - 03/16/2025 9:00 AM EDT Prescription Refill Information The patient has been identified by name and date of : Yes Caregiver verified no other encounters exist for this prescription request: Yes Caregiver confirmed with patient/requestor that no other refills are due, in the near future, with this provider at this time: Yes The last office visit in the department: 03-09-25 Does the patient have a future office visit with this provider/department: Yes Requested Prescriptions Pending Prescriptions Disp Refills carvedilol (COREG) 25 mg tablet 60 tablet 1 Sig: Take 1 tablet by mouth two times a day. busPIRone (BUSPAR) 7.5 mg tablet 90 tablet 2 Sig: Take 1 tablet by mouth three times a day. traZODone (DESYREL) 100 mg tablet 90 tablet 1 Sig: Take 1 tablet by mouth daily at bedtime. lisinopril (ZESTRIL) 10 mg tablet 30 tablet 1 Sig: Take 1 tablet by mouth once daily. Adeline Goss March 16, 2025 9:01 AM [facility]08-26-2025 Miscellaneous Notes* Telephone Encounter - Adeline Gusman - 03/16/2025 9:00 AM EDT Prescription Refill Information The patient has been identified by name and date of : Yes Caregiver verified no other encounters exist for this prescription request: Yes Caregiver confirmed with patient/requestor that no other refills are due, in the near future, with this provider at this time: Yes The last office visit in the department: 03-09-25 Does the patient have a future office visit with this provider/department: Yes Requested Prescriptions Pending Prescriptions Disp Refills carvedilol (COREG) 25 mg tablet 60 tablet 1 Sig: Take 1 tablet by mouth two times a day. busPIRone (BUSPAR) 7.5 mg tablet 90 tablet 2 Sig: Take 1 tablet by mouth three times a day. traZODone (DESYREL) 100 mg tablet 90 tablet 1 Sig: Take 1 tablet by mouth daily at bedtime. lisinopril (ZESTRIL) 10 mg tablet 30 tablet 1 Sig: Take 1 tablet by mouth once daily. Adeline Goss March 16, 2025 9:01 AM documented in [facility] encounter[facility] Telephone encounter Note * Telephone Encounter - Keren Kwon APRN.CNP - 03/10/2025 4:54 PM EDT Phone call to pt emergency contact, Anju. She was able to get patient on phone. Aware that he missed calls, but thought we were someone else calling. Advised patient that his potassium level was very high when we checked it yesterday and that it really needs to be rechecked DESIREE. He is going to [facility] ER to have rechecked. Phone call to [facility] (Dr. Shafer) and report given. [facility]08-20-2025 Miscellaneous Notes* Telephone Encounter - Keren Kwon APRN.CNP - 03/10/2025 4:54 PM EDT Phone call to pt emergency contact, Anju. She was able to get patient on phone. Aware that he missed calls, but thought we were someone else calling. Advised patient that his potassium level was very high when we checked it yesterday and that it really needs to be rechecked DESIREE. [facility] Phone call to [facility] (Dr. Shafer) and report given. * Telephone Encounter - Donna Richey LPN - 03/10/2025 4:44 PM EDT Phoned pt, no answer, no voicemail. Donna Richey LPN * Telephone Encounter - Donna Richey LPN - 03/10/2025 1:18 PM EDT Phoned pt, no answer, unable to leave message d/t voicemail box is not set up. Donna Richey LPN * Telephone Encounter - Keren Kwon APRN.CNP - 03/10/2025 12:39 PM EDT Can we please try to contact again. If he is not able to come in soon to complete, then he will need to go to the ER to have this rechecked. * Telephone Encounter - Donna Richey LPN - 03/10/2025 9:15 AM EDT Phoned pt, no answer, unable to leave message d/t voicemail box is not set up yet. * Telephone Encounter - Keren Kwon APRN.CNP - 03/10/2025 7:52 AM EDT Can we please call patient and let him know that we received his lab results. His potassium is too high. He needs to come back in this morning and have this rechecked. documented in this encounterOhio[facility]08-[facility]-2025 Telephone encounter Note * Telephone Encounter - Donna Richey LPN - 03/10/2025 4:44 PM EDT Phoned pt, no answer, no voicemail. Donna Richey LPN [facility]08-20-2025 Telephone encounter Note* Telephone Encounter - Donna Richey LPN - 03/10/2025 1:18 PM EDT Phoned pt, no answer, unable to leave message d/t voicemail box is not set up. Donna Richey LPN [facility]08-20-2025 Telephone encounter Note* Telephone Encounter - Keren Kwon APRN.CNP - 03/10/2025 12:39 PM EDT Can we please try to contact again. If he is not able to come in soon to complete, then he will need to go to the ER to have this rechecked. [facility]08-20-2025 Telephone encounter Note* Telephone Encounter - Donna Richey LPN - 03/10/2025 9:15 AM EDT Phoned pt, no answer, unable to leave message d/t voicemail box is not set up yet. [address]20-2025 Telephone encounter Note* Telephone Encounter - Keren Kwon APRN.CNP - 03/10/2025 7:52 AM EDT Can we please call patient and let him know that we received his lab results. His potassium is too high. He needs to come back in this morning and have this rechecked. [facility]08-20-2025 Telephone encounter Note* Telephone Encounter - Ivonne Abbott MD - 03/10/2025 7:31 AM EDT Called by lab at 1230 AM with K 6.4 and this was drawn at 216 PM. Attempted to reach pt but no VM set to leave message. This morning reviewed chart and Directed message Keren Kwon CNP who ordered test to get a stat level. Ivonne Abbott MD [facility] Work Phone: 1(782) 893-216808-20-2025 Miscellaneous Notes* Telephone Encounter - Ivonne Abbott MD - 03/10/2025 7:31 AM EDT Called by lab at 1230 AM with K 6.4 and this was drawn at 216 PM. Attempted to reach pt but no VM set to leave message. This morning reviewed chart and Directed message Keren Kwon CNP who ordered test to get a stat level. Ivonne Abbott MD documented in this encounterOhiohealth [facility]08-19-2025 Hospital Discharge instructionsAdditional Instructions There was concern for elevated potassium level. Your potassium is normal today and I suspect likely the blood draw from yesterday was a laboratory error.[facility] Work Phone: 1(449) 753-399708-19-2025 NoteHNO ID: [id number] Author: KEREN KWON APRN.CNP Service: ? Author Type: Nurse Practitioner Type: Progress Notes Filed: 03/09/2025 16:49 Note Text: This is a 59 year old male who presents today with: Bethany Montalvo is a 59-year-old male presenting for follow-up after hospitalization for dehydration and rhabdomyolysis, with additional complaints of myalgia, dizziness, and lethargy. He presented to the ER on 03/03/25 and was discharged on 03/05/25. Patient presents today for emergency room follow-up. He presented to [facility] on 03/03/2025 with complaints of dizziness, headache, chest pain that started the previous day at work. 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 Reports the warehouse was hot with no air movement, we have also been having hot weather in the area. He was found to have severe LUZ MARIA in the setting of CKD. His serum creatinine was 5.32 with a BUN of 42. His GFR was 12. He was admitted to PCU. He had 4-1/2 to 5 L of IV fluid. His lisinopril was placed on hold. Upon discharge, his creatinine had continued to improved to 1.76. His potassium was 5.3. His CK eliza to 825. His repeat improved to 196. He was advised to hold his atorvastatin. There was a concern about acute alcohol withdrawal with reactive leukocytosis of 15.2. He has been having nonbloody diarrhea which exacerbated his volume depletion. He had negative stool studies. Patient reports that he has been sober since December, however was having anxiety prior to presenting to the emergency room and stopped to get a beer. They reported on 03/05 that diarrhea had resolved, stool for C. difficile, enteric pathogen panel, and lactoferrin were negative. He also had a CT of the brain which showed no acute intracranial abnormality. He also had a chest x-ray which was negative for any acute findings. He was discharged on 03/05/25. 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 - Discharged on the . - Attempting to stay hydrated with water and Powerade. - Experiencing runny bowel movements; took an OTC antidiarrheal last night with some improvement. - Holding lisinopril and atorvastatin. Although reports took today. Myalgia: - Generalized myalgia, with specific pain in the right arm after a fall. - Describes arm pain as "really bad" but does not believe it is bruised. - Reports stiffness in legs and numbness in the arm. - Taking potassium supplements and eating bananas. Dizziness and Lethargy: - Persistent dizziness and lethargy since starting the [employer] job. - Describes feeling like he needs to sleep all the time. - Reports tingling in fingers and lower back pain. - Denies current alcohol use; has been sober since January 13. PAST MEDICAL HISTORY: PAST MEDICAL HISTORY Diagnosis [...] [Pseudoephedrine] MEDICATIONS Current Outpatient Medications Medication Sig cyclobenzaprine (FLEXERIL) 10 mg tablet Take 1 tablet by mouth once daily as needed. lisinopril (ZESTRIL) 10 mg tablet Take 1 tablet by mouth once daily. carvedilol (COREG) 25 mg tablet Take 1 tablet by mouth two times a day. busPIRone (BUSPAR) 7.5 mg tablet Take 1 tablet by mouth three times a day. magnesium oxide 400 mg magnesium cap Take 1 capsule by mouth three times a day. folic acid 1 mg tablet Take 1 tablet by mouth once daily. thiamine (VITAMIN B1) 100 mg tablet Take 1 tablet by mouth once daily. traZODone (DESYREL) 100 mg tablet Take 1 tablet by mouth daily at bedtime. benzocaine-menthol (CEPACOL) 15-3.6 mg lozg Use 1 Lozenge as instructed every 2 hours as needed. atorvastatin (LIPITOR) 40 mg tablet Take 1 tablet by mouth daily at bedtime. aspirin, enteric coated (ECOTRIN LOW STRENGTH) 81 mg EC tablet Take 1 tablet by mouth once daily. omeprazole (PRILOSEC) 20 mg capsule José Antonio (more content not included)...[facility]08-19-2025 History of Present illness Narrative* Keren Kwon APRN.GORE STITCHER - 03/09/2025 4:34 PM EDT This is a 59 year old male who presents today with: Bethany Montalvo is a 59-year-old male presenting for follow-up after hospitalization for dehydration and rhabdomyolysis, with additional complaints of myalgia, dizziness, and lethargy. He presented to the ER on 03/03/25 and was discharged on 03/05/25. Patient presents today for emergency room follow-up. He presented to [facility] on 03/03/2025 with complaints of dizziness, headache, chest pain that started the previous day at work. 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 He was found to have severe LUZ MARIA in the setting of CKD. His serum creatinine was 5.32 with a BUN of 42. His GFR was 12. He was admitted to PCU. He had 4-1/2 to 5 L of IV fluid. His lisinopril was placed on hold. Upon discharge, his creatinine had continued to improved to 1.76. His potassium was 5.3. His CK eliza to 825. His repeat improved to 196. He was advised to hold his atorvastatin. There was a concern about acute alcohol withdrawal with reactive leukocytosis of 15.2. He has been having nonbloody diarrhea which exacerbated his volume depletion. He had negative stool studies. Patient reports that he has been sober since December, however was having anxiety prior to presenting to the emergency room and stopped to get a beer. They reported on 03/05 that diarrhea had resolved, stool for C. difficile, enteric pathogen panel, and lactoferrin were negative. He also had a CT of the brain which showed no acute intracranial abnormality. He also had a chest x-ray which was negative for any acute findings. He was discharged on 03/05/25. 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 - Discharged on the . - Attempting to stay hydrated with water and Powerade. - Experiencing runny bowel movements; took an OTC antidiarrheal last night with some improvement. - Holding lisinopril and atorvastatin. Although reports took today. Myalgia: - Generalized myalgia, with specific pain in the right arm after a fall. - Describes arm pain as "really bad" but does not believe it is bruised. - Reports stiffness in legs and numbness in the arm. - Taking potassium supplements and eating bananas. 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 - Describes feeling like he needs to sleep all the time. - Reports tingling in fingers and lower back pain. - Denies current alcohol use; has been sober since January 13. PAST MEDICAL HISTORY: PAST MEDICAL HISTORY Diagnosis Date Alcohol abuse Anxiety and depression 07/09/2016 Bilateral carotid artery stenosis 01/14/2020 40-59% bilateral. Chronic alcohol abuse Chronic insomnia Coronary artery disease due to lipid rich plaque CSF abnormal Current severe episode of major depressive disorder without psychotic features, unspecified whetherrecurrent (HCC) Essential hypertension GERD (gastroesophageal reflux disease) [...] [Pseudoephedrine] MEDICATIONS Current Outpatient Medications Medication Sig cyclobenzaprine (FLEXERIL) 10 mg tablet Take 1 tablet by mouth once daily as needed. lisinopril (ZESTRIL) 10 mg tablet Take 1 tablet by mouth once daily. carvedilol (COREG) 25 mg tablet Take 1 tablet by mouth two times a day. busPIRone (BUSPAR) 7.5 mg tablet Take 1 tablet by mouth three times a day. magnesium oxide 400 mg magnesium cap Take 1 capsule by mouth three times a day. folic acid 1 mg tablet Take 1 tablet by mouth once daily. thiamine (VITAMIN B1) 100 mg tablet Take 1 tablet by mouth once daily. traZODone (DESYREL) 100 mg tablet Take 1 [...] Age of Onset Psychiatry Mother Heart Mother NV 53 Heart Father NV 51 Colon Cancer Father other (Heart stent) Sister No Known Problems Sister No Known Problems Sister Heart Brother other (Transgender) Brother No Known Problems Brother No Known Problems Maternal Grandmother No Known Problems Maternal Grandfather No Known Problems Paternal Grandmother No Known Problems Paternal Grandfather EXAM: BP 120/84 Pulse 77 Resp 16 SpO2 96% PHYSICAL EXAM: General Appearance: Well appearing, alert, [...] Good capillary refill. . Neurologic: Gait normal. ASSESSMENT/PLAN 1. Non-traumatic rhabdomyolysis (M62.82) 2. LUZ MARIA (acute kidney injury) (N17.9) 3. Dehydration (E86.0) - Recent hospitalization for non-traumatic rhabdomyolysis and LUZ MARIA secondary to severe dehydration from strenuous work in a hot warehouse environment. - Ordered labs to reassess kidney function (creatinine), CK, potassium, magnesium, and CBC. - Advised to continue holding the atorvastatin and lisinopril until lab results are reviewed. - Educated on the importance of maintaining adequate hydration to support muscle healing and prevent further kidney injury. - Advised to avoid potassium supplements until lab results are available. 4. 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 5. Diarrhea, unspecified type (R19.7) - Recent episode of diarrhea managed with [id number] medication. Discussed treatment plan and patient voices understanding. Patient's questions answered appropriately. Medications and potential side effects were discussed and patient voices understanding. Return to the office as scheduled or as needed for worsening/no improvement. Keren Kwon APRN.CNP Recording using [employer] software for draft documentation of the visit was discussed with the patient/authorized sales representative jewelry; all questions welcomed and answered. Patient/authorized sales representative jewelry agreed to proceed documented in this encounter[facility] Instructions* Patient Instructions* Keren Kwon APRN.CNP - 03/09/2025 1:59 PM EDT Get labwork. Push fluids. Continue to hold the lisinopril and atorvastatin until I get the results of your labwork. documented in this encounterOhio[facility]08-18-2025 Telephone encounter Note * Telephone Encounter - Donna Richey LPN - 03/08/2025 10:59 AM EDT Prescription Refill Information The patient has been identified by name and date of : Yes Caregiver verified no other encounters exist for this prescription request: Yes Caregiver confirmed with patient/requestor that no other refills are due, in the near future, with this provider at this time: Yes The last office visit in the department: 12/11/24 Does the patient have a future office visit with this provider/department: Yes, 03/09/25 Requested Prescriptions Pending Prescriptions Disp Refills cyclobenzaprine (FLEXERIL) 10 mg tablet 30 tablet 3 Sig: Take 1 tablet by mouth once daily as needed. Pt requesting rx to go to [facility], rx on 02/01/25 was sent to [facility]. Donna Richey LPN March 08, 2025 10:59 AM [facility]08-18-2025 Miscellaneous Notes* Telephone Encounter - Donna Richey LPN - 03/08/2025 10:59 AM EDT Prescription Refill Information The patient has been identified by name and date of : Yes Caregiver verified no other encounters exist for this prescription request: Yes Caregiver confirmed with patient/requestor that no other refills are due, in the near future, with this provider at this time: Yes The last office visit in the department: 12/11/24 Does the patient have a future office visit with this provider/department: Yes, 03/09/25 Requested Prescriptions Pending Prescriptions Disp Refills cyclobenzaprine (FLEXERIL) 10 mg tablet 30 tablet 3 Sig: Take 1 tablet by mouth once daily as needed. Pt requesting rx to go to [facility], rx on 02/01/25 was sent to [facility]. Donna Richey LPN March 08, 2025 10:59 AM documented in this encounterOhiohealth [facility] Hospital08-15-2025 Discharge summary [facility] Medical Records Department [address] [place] [address] Instructions for Home/Discharge Instructions 03/05/25 0948 MR#: [id number] Acct: [id number] Name: BETHANY MONTALVO Rep #:[id number] : 1965 59 From: Jatin Hinkle PCP: XUAN Armendariz Status:ADM I N Discharge Instructions DC O2, CPAP, BIPAP needs Home O2 Discharge instructions: No Follow Up Care Test Results: Test results from this visit will be discussed in further detail at your follow- up appointment, if applicable. Discharge Plan Admission Admit Date/Time: 03/03/25 21:48 Primary Reason for Your Visit: LUZ MARIA, mild rhabdomyolysis Attending Provider: Jatin Mcgraw Primary Care Provider: Keren Kwon NP Consulting Providers: Michela Murillo Discharge Orders/Prescriptions Prescriptions: Continued nitroglycerin 0.4 mg tablet, sublingual 0.4 mg SUBLINGUAL Q5M PRN (Reason: Chest Pain) Qty: 25 3RF trazodone 50 mg tablet 100 mg PO QHS magnesium oxide 400 mg (241.3 mg magnesium) tablet 400 mg PO DAILY thiamine HCl (vitamin B1) 100 mg tablet 100 mg PO DAILY folic acid 1 mg tablet 1 mg PO DAILY buspirone 7.5 mg tablet 7.5 mg PO TID carvedilol 25 mg tablet 25 mg PO BID Rx Instructions: must administer with a meal/food omeprazole 20 MG capsule 20 mg PO DAILY Patient Comments: REFLUX cyclobenzaprine 10 mg tablet 10 mg PO DAILY PRN (Reason: Pain) multivitamin [Daily Multi-Vitamin] Tablet 1 tab PO DAILY cyanocobalamin (vitamin B-12) [Vitamin B-12] 100 mcg tablet 100 mcg PO DAILY aspirin 81 mg tablet,delayed release (DR/EC) 81 mg PO DAILY Qty: 90 3RF Held lisinopril 10 mg tablet 10 mg PO QDAY Hold Instructions: Hold for week follow-up with BMP PCP before resumption. atorvastatin 40 mg tablet 40 mg PO QHS Qty: 90 3RF Hold Instructions: Hold for 7 days Referrals / Follow Up: Keren Kwon NP, [facility] [Primary Care Provider] - Disposition Disposition (needs filled in before D/C Order can be placed): Home, Self Care 03/05/25 0952Jatin Mcgraw MD CC: XUAN Kwon; Dr. Michela Murillo, DO ~ Signed [facility]08-15-2025 [facility] Medical Records Department [address] [place] [address] Discharge Summary 03/05/25 0952 MR#: [id number] Acct: [id number] Name: BETHANY MONTALVO Rep #: [id number] : 1965 59 From: Jatin Mcgraw MD PCP: XUAN Armendariz Status:DIS [id number] Prov[facility] Date of Admission: 03/03/25 Date of Discharge: 03/05/25 Primary Care Physician: XUAN Armendariz Reason For Visit: SEVERE LUZ MARIA, MYOTOXICITY AFTER EXERTION IN HEAT, Diagnosis Discharge Diagnosis (1) LUZ MARIA (acute kidney injury): Status: Acute Code(s): N17.9 - Acute kidney failure, unspecified (2) Rhabdomyolysis: Status: Acute Code(s): M62.82 - Rhabdomyolysis Qualifiers: Rhabdomyolysis type: non-traumatic Qualified Code(s): M62.82 - Rhabdomyolysis (3) Leukocytosis: Status: Acute Code(s): D72.829 - Elevated white blood cell count, unspecified Qualifiers: Leukocytosis type: unspecified Qualified Code(s): D72.829 - Elevated white blood cell count, unspecified (4) Diarrhea: Status: Acute Code(s): R19.7 - Diarrhea, unspecified Qualifiers: Diarrhea type: presumed infectious Qualified Code(s): R19.7 - Diarrhea, unspecified (5) Adverse drug reaction: Status: Acute Code(s): T50.905A - Adverse effect of unspecified drugs, medicaments and biological substances, initial encounter Qualifiers: Encounter type: initial encounter Qualified Code(s): T50.905A - Adverse effect of unspecified drugs, medicaments and biological substances, initial encounter (6) Hyponatremia: Status: Acute Code(s): E87.1 - Hypo-osmolality and hyponatremia (7) History of non-ST elevation myocardial infarction (NSTEMI): Status: Resolved Code(s): I25.2 - Old myocardial infarction (8) Obesity (BMI 30.0-34.9): Status: Acute Code(s): E66.811 - Obesity, class 1 (9) Hepatic steatosis: Status: Acute Code(s): K76.0 - Fatty (change of) liver, not elsewhere classified (10) AARON (obstructive sleep apnea): Status: Acute Code(s): G47.33 - Obstructive sleep apnea (adult) (pediatric) Plan 53 gentleman was admitted with symptoms of dizziness, headache, chest pain that started yesterday after he left work. He felt like he had heatstroke as involved 4 days yesterday, heavy labor. He has been drinking water. Was not evaluated yesterday. 1. Severe LUZ MARIA; in the setting of CKD; stage IIIa with elevated serum creatinine of 5.32 mg/dL with BUN of 42 mg/dL and eGFR of 12 mL/min (up from his baseline of 1.49 mg/dL with a BUN of 12 mg/dL and eGFR of 52 mL/min on last evaluation) - Admit to PCU. Patient had about 4.5 to 5 L of IV fluid. Urine is light yellow and adequate. Avoid potentially nephrotoxic medications. Hold lisinopril. 03/05: Creatinine continues to be improved from 3.67-1.76. BUN 25. Potassium 5.3. Advised to continue holding lisinopril for 1 more week. 2. Elevated total creatinine kinase of 825 units/L: Patient had concern of heat exhaustion though he does not meet criteria for a true stroke. Follow-up CK shows improvement. 03/05: CPK improved. 196. Continue to hold atorvastatin. 3. Concern for acute alcohol withdrawal with reactive leukocytosis of 15.2 K present on admission with Nonbloody Diarrhea exacerbating volume depletion: Stool studies were negative for C. difficile and enteric pathogen panel. Stool for lactoferrin positive. Most likely noninfectious diarrhea with concern of acute alcohol withdrawal. Patient drinks more than 3 drinks per day mainly beer. Serum alcohol was elevated, 117 on admission. 03/05: Alcohol withdrawal resolved. Diarrhea has resolved. Stool for C. difficile, enteric pathogen panel and lactoferrin are negative. 5. Hyponatremia of 130 mmol/L (down from 137 mmol/L on last evaluation) -repeat sodium is 134. 03/05: Serum sodium improved to 139, normal. Mild hyperkalemia 5.3. Continue to hold medications lisinopril. 6. CAD; s/p NSTEMI with subsequent LCX stent (2017) on BASA daily plus prn SL NTG. Hold BASA Continue prn SL NTG. 7. Obesity (class I); with BMI of 31.1 this admission plus AARON and Hepatic Steatosis - Weight loss will be recommended. Check TSH. Resume nocturnal CPAP. This complicates his case and may hamper recovery. 8. History of EtOH abuse; patient admits to only one drink today because he was nervous but denies chronic EtOH abuse on folate and cyanocobalamin supplements - Noted. Maintain supplementation. 9. Essential hypertension; on lisinopril and carvedilol BID: Continue carvedilol. Hold lisinopril 10. Hyperlipidemia; on atorvastatin - Hold statin with possible superimposed myotoxicity. 11. History of CHF - Stable with no signs of volume overload at this time. 12. History of TIA; with known carotid artery disease - Stable. 13. Former tobacco abuse; with subsequent asthma/COPD - Stable with no evidence of acute flare at this time. Continue scheduled and as n (more content not included)...[facility]08-14-2025 Progress note Author Jatin Mcgraw [facility] Note Date/Time March 04, 2025 3: 34pm [facility] Medical Records Department [address] [place] [address] Progress Note - Hospitalist 03/04/25 1047 MR#: [id number] Acct: [id number] Name: BETHANY MONTALVO Rep #:[id number] : 1965 59 From: Jatin Hinkle PCP: XUAN Armendariz Status:ADM I N Location: [place] [address] Reason for Visit Chief Complaint: Chest Pain, Headache, Dizziness and Exhaustion. Objective Data Objective Data Vital Signs: Vital Signs Temp Pulse Resp BP Pulse Ox O2 Del Method 98.0 F 83 16 124/66 H 98 Room Air 03/04/25 08:15 03/04/25 08:15 03/04/25 08:15 03/04/25 08:15 03/04/25 08:15 03/04/25 08:30 Oxygen Delivery Method Room Air Weight: 219 lb 12.814 oz Body Mass Index (BMI) 31.5 Intake & Output: Intake and Output for Last 24 Hours 03/02/25 03/03/25 03/04/25 23:59 23:59 23:59 Intake Total 2856.67 / 2856.67 2100 / 2100 Output Total 300 / 300 900 / 900 Balance 2556.67 / 2556.67 1200 / 1200 Lab / Micro Data 03/04/25 06:10 03/04/25 06:10 Labs: Laboratory Results - last 24 hr 03/03/25 19:25: WBC 15.2 H, RBC 4.52 L, Hgb 14.5, Hct 39.9 L, MCV 88.3, MCH 32.1H, MCHC 36.3 H, RDW Std Deviation 39.5, RDW Coeff of Rosalee 12.2, Plt Count 156, MPV 10.3, Immature Gran % (Auto) 0.300, Neut % (Auto) 67.7, Lymph % (Auto) 22.6,Archuleta % (Auto) 8.0, Eos % (Auto) 1.2, Baso % (Auto) 0.2, Absolute Neuts (auto) 10.3 H, Absolute Lymphs (auto) 3.44, Nucleated RBC % 0, Sodium 130 L, Potassium 3.7, Chloride 91 L, Carbon Dioxide 16.4 L, Anion Gap 23 H, BUN 42 H, Creatinine 5.32 H, Estim Creat Clear Calc 17.79 L, Est GFR (MDRD) Non-Af 12 L, BUN/Creatinine Ratio 8.0 L, Glucose 80, Calcium 9.1, Magnesium 2.0, Total Creatine Kinase 825 H, Troponin T High Sens 13 03/03/25 21:13: Ethyl Alcohol 117.0 H 03/03/25 21:59: Troponin T Hi Sens 2 Hr 11 03/03/25 22:02: Urine Color Straw, Urine Clarity Clear, Urine pH 6.0, Ur Specific Weston 1.010, Urine Protein 15 H, Urine Glucose (UA) Normal, Urine Ketones Negative, Urine Occult Blood Negative, Urine Nitrite Negative, Urine Bilirubin Negative, Urine Urobilinogen Normal, Ur Leukocyte Esterase Negative, Urine RBC 0 SEEN, Urine WBC 0-5 SEEN, Ur Squamous Epith Cells 0-5 SEEN, Urine Bacteria 0 SEEN, Urine Mucus 0 SEEN 03/03/25 23:30: Troponin T Hi Sens 4Hr 11, TSH 1.110 03/04/25 06:10: WBC 7.0, RBC 3.81 L, Hgb 12.0 L, Hct 34.5 L, MCV 90.6, MCH 31.5,MCHC 34.8, RDW Std Deviation 39.6, RDW Coeff of Rosalee 12.0, Plt Count 104 L, MPV 10.8, Immature Gran % (Auto) 0.300, Neut % (Auto) 62.4, Lymph % (Auto) 28.2, Archuleta % (Auto) 7.6, Eos % (Auto) 1.4, Baso % (Auto) 0.1, Absolute Neuts (auto) 4.3, Absolute Lymphs (auto) 1.96, Nucleated RBC % 0, Sodium 134, Potassium 4.7, Chloride 102, Carbon Dioxide 19.1 L, Anion Gap 12, BUN 36 H, Creatinine 3.67 H, Estim Creat Clear Calc 25.97 L, Est GFR (MDRD) Non-Af 18 L, BUN/Creatinine Ratio9.7 L, Glucose 102 H, Calcium 7.8, Phosphorus 3.3, Total Bilirubin 1.04, AST 32,ALT 19, Alkaline Phosphatase 85, Total Creatine Kinase 484 H, Total Protein 5.8 L, Albumin 3.8, Globulin 2.0 L, Albumin/Globulin Ratio 1.9 Micro: Microbiology 03/04/25 08:43 Stool Clostridioides difficile (PCR) - Final Radiography Diagnostic Testing: Radiology Impression Brain CT 03/03/25 20:24 IMPRESSION: No acute intracranial abnormality. Reading Location: [facility] Chest X-Ray 03/03/25 21:30 IMPRESSION: No acute chest findings. Reading Location: [place] [address] Physical Exam Narrative Complaint of nausea and bloating sensation. He also had headache. Had about 4.5 L of IV fluid and 200 mL urine output. Had cough about a week ago and went to urgent care but now it is cleared up. Patient also drinks alcohol though he has cut. Last GI office visit was September 2024. Last hospital admission for alcohol withdrawal was April 2023. Patienthaving diarrhea. Physical exam General: Alert, Oriented x3, Cooperative HEENT: Atraumatic, PERRLA, EOMI, Normocephalic. Oral: No Gingival or Mucosal Lesions/ Ulcerations Neck: Supple, No JVD, Negative Carotid Bruits Chest wall/Lungs: Air entry diminished in bilateral lung bases. No crepitation/rhonchi Cardiovascular: Regular rate and rhythm, Normal S1,S2, No M/G/R Abdomen: Bowel Sounds Present, Soft, mild tenderness bilateral left more than right. : No dysuria. No renal angle tenderness. No suprapubic tenderness. Extremities: No edema, Capillary Refill Less than 3 Seconds Skin: No rashes, No breakdown Musculoskeletal: No Tenderness to Palpation of Joints or Extremities Neurological: Cranial nerves II-XII grossly intact, DTR 2+/4. No acute focal neurological deficit. Psych/Mental Status: Normal Affect, Appropriate. Assessment & Plan Assessment/Plan (1) LUZ MARIA (acute kidney injury): (2) Rhabdomyolysis: QUALIFIERS: Rhabdomyolysis type: non-traumatic Qualified Code(s):M62.82 - Rhabdomyolysis (3) Leukocytosis: QUALIFIERS: Leukocytosis type: unspecified Qualified Code(s): D72.829 - Elevated white blood cell count, unspecified (4) Diarrhea: QUALIFIERS: Diarrhea type: presumed infectious Qualified Code(s):R19.7 - Diarrhea, unspecified (5) Adverse drug reaction: QUALIFIERS: Encounter type: initial encounter Qualified Code(s): T50.905A - Adverse effect of unspecified drugs, medicaments and biological substances, initial encounter (6) Hyponatremia: (7) History of non-ST elevation myocardial infarction (NSTEMI): (8) Obesity (BMI 30.0-34.9): (9) Hepatic steatosis: (10) AARON (obstructive sleep apnea): PLAN: Plan 53 gentleman was admitted with symptoms of dizziness, headache, chest pain that started yesterday after he left work. He felt like he had heatstroke as involved 4 days yesterday, heavy labor. He has been drinking water. Was not evaluated yesterday. 1. Severe LUZ MARIA; in the setting of CKD; stage IIIa with elevated serum creatinineof 5.32 mg/dL with BUN of 42 mg/dL and eGFR of 12 mL/min (up from his baseline of 1.49 mg/dL with a BUN of 12 mg/dL and eGFR of 52 mL/min on last evaluation) -Admit to PCU. Patient had about 4.5 to 5 L of IV fluid. Urine is light yellow and adequate. Avoid potentially nephrotoxic medications. Hold lisinopril. 2. Elevated total creatinine kinase of 825 units/L: Patient had concern of heatexhaustion though he does not meet criteria for a true stroke. Follow-up CK shows improvement. 3. Concern for acute alcohol withdrawal with reactive leukocytosis of 15.2 K present on admission with Nonbloody Diarrhea exacerbating volume depletion: Stool studies were negative for C. difficile and enteric pathogen panel. Stool for lactoferrin positive. Most likely noninfectious diarrhea with concern of acute alcohol withdrawal. Patient drinks more than 3 drinks per day mainly beer. Serum alcohol was elevated, 117 on admission. 5. Hyponatremia of 130 mmol/L (down from 137 mmol/L on last evaluation) - repeatsodium is 134. 6. CAD; s/p NSTEMI with subsequent LCX stent (2018) on BASA daily plus prn SL NTG. Hold BASA Continue prn SL NTG. 7. Obesity (class I); with BMI of 31.1 this admission plus AARON and Hepatic Steatosis - Weight loss will be recommended. Check TSH. Resume nocturnal CPAP. This complicates his case and may hamper recovery. 8. History of EtOH abuse; patient admits to only one drink today because he wasnervous but denies chronic EtOH abuse on folate and cyanocobalamin supplements -Noted. Maintain supplementation. 9. Essential hypertension; on lisinopril and carvedilol BID: Continue carvedilol. Hold lisinopril 10. Hyperlipidemia; on atorvastatin - Hold statin with possible superimposed myotoxicity. 11. History of CHF - Stable with no signs of volume overload at this time. 12. History of TIA; with known carotid artery disease - Stable. 13. Former tobacco abuse; with subsequent asthma/COPD - Stable with no evidenceof acute flare at this time. Continue scheduled and as needed nebulizers/inhalers. 14. History of thrombocytopenia - Stable with platelet count 100 56K present onadmission. Depression; with history of suicidal ideation on buspirone TID and trazodone q.HS - Maintain home regimen. GERD; on omeprazole - Continue PPI. Chronic OA - Give acetaminophen prn as outlined in #1. DVT prophylaxis - Heparin 5,000U sq BID plus SCD's. Microbiology Past 72 Hours 03/04/25 08:43 Stool Stool Lactoferrin - Final 03/04/25 08:43 Stool Enteric Bacteriology - Final 03/04/25 08:43 Stool Clostridioides difficile (PCR) - Final Laboratory Results 03/03/25 19:25: WBC 15.2 H, RBC 4.52 L, Hgb 14.5, Hct 39.9 L, MCV 88.3, MCH 32.1H, MCHC 36.3 H, RDW Std Deviation 39.5, RDW Coeff of Rosalee 12.2, Plt Count 156, MPV 10.3, Immature Gran % (Auto) 0.300, Neut % (Auto) 67.7, Lymph % (Auto) 22.6,Archuleta % (Auto) 8.0, Eos % (Auto) 1.2, Baso % (Auto) 0.2, Absolute Neuts (auto) 10.3 H, Absolute Lymphs (auto) 3.44, Nucleated RBC % 0, Sodium 130 L, Potassium 3.7, Chloride 91 L, Carbon Dioxide 16.4 L, Anion Gap 23 H, BUN 42 H, Creatinine 5.32 H, Estim Creat Clear Calc 17.79 L, Est GFR (MDRD) Non-Af 12 L, BUN/Creatinine Ratio 8.0 L, Glucose 80, Calcium 9.1, Magnesium 2.0, Total Creatine Kinase 825 H, Troponin T High Sens 13 03/03/25 21:13: Ethyl Alcohol 117.0 H 03/03/25 21:59: Troponin T Hi Sens 2 Hr 11 03/03/25 22:02: Urine Color Straw, Urine Clarity Clear, Urine pH 6.0, Ur Specific Weston 1.010, Urine Protein 15 H, Urine Glucose (UA) Normal, Urine Ketones Negative, Urine Occult Blood Negative, Urine Nitrite Negative, Urine Bilirubin Negative, Urine Urobilinogen Normal, Ur Leukocyte Esterase Negative, Urine RBC 0 SEEN, Urine WBC 0-5 SEEN, Ur Squamous Epith Cells 0-5 SEEN, Urine Bacteria 0 SEEN, Urine Mucus 0 SEEN 03/03/25 23:30: Troponin T Hi Sens 4Hr 11, TSH 1.110 03/04/25 06:10: WBC 7.0, RBC 3.81 L, Hgb 12.0 L, Hct 34.5 L, MCV 90.6, MCH 31.5,MCHC 34.8, RDW Std Deviation 39.6, RDW Coeff of Rosalee 12.0, Plt Count 104 L, MPV 10.8, Immature Gran % (Auto) 0.300, Neut % (Auto) 62.4, Lymph % (Auto) 28.2, Archuleta % (Auto) 7.6, Eos % (Auto) 1.4, Baso % (Auto) 0.1, Absolute Neuts (auto) 4.3, Absolute Lymphs (auto) 1.96, Nucleated RBC % 0, Sodium 134, Potassium 4.7, Chloride 102, Carbon Dioxide 19.1 L, Anion Gap 12, BUN 36 H, Creatinine 3.67 H, Estim Creat Clear Calc 25.97 L, Est GFR (MDRD) Non-Af 18 L, BUN/Creatinine Ratio9.7 L, Glucose 102 H, Calcium 7.8, Phosphorus 3.3, Total Bilirubin 1.04, AST 32,ALT 19, Alkaline Phosphatase 85, Total Creatine Kinase 484 H, Total Protein 5.8 L, Albumin 3.8, Globulin 2.0 L, Albumin/Globulin Ratio 1.9 Clinical Impression(s) from Imaging Studies Brain CT 03/03/25 20:24 IMPRESSION: No acute intracranial abnormality. Reading Location: [id number] Chest X-Ray 03/03/25 21:30 IMPRESSION: No acute chest findings. Reading Location: [place] [address] Charges/Coding Visit Charges Inpatient E&M: 39876 Subs Hosp L2 03/04/25 1534 <Electronically signed by Jatin Mcgraw MD> Cosigner Signature (if applicable): CC: ~ Signed [facility] Work Phone: [phone] Progress note [facility] Medical Records Department [address] [place] [id number] Progress Note - Hospitalist 03/04/25 1047 MR#: [id number] Acct: [id number] Name: BETHANY MONTALVO Rep #:[id number] : 1965 59 From: Jatin Hinkle PCP: XUAN Armendariz Status:ADM I N Location: [place] [address] Reason for Visit Chief Complaint: Chest Pain, Headache, Dizziness and Exhaustion. Objective Data Objective Data Vital Signs: Vital Signs Temp Pulse Resp BP Pulse Ox O2 Del Method 98.0 F 83 16 124/66 H 98 Room Air 03/04/25 08:15 03/04/25 08:15 03/04/25 08:15 03/04/25 08:15 03/04/25 08:15 03/04/25 08:30 Oxygen Delivery Method Room Air Weight: 219 lb 12.814 oz Body Mass Index (BMI) 31.5 Intake & Output: Intake and Output for Last 24 Hours 03/02/25 03/03/25 03/04/25 23:59 23:59 23:59 Intake Total 2856.67 / 2856.67 2100 / 2100 Output Total 300 / 300 900 / 900 Balance 2556.67 / 2556.67 1200 / 1200 Lab / Micro Data 03/04/25 06:10 03/04/25 06:10 Labs: Laboratory Results - last 24 hr 03/03/25 19:25: WBC 15.2 H, RBC 4.52 L, Hgb 14.5, Hct 39.9 L, MCV 88.3, MCH 32.1H, MCHC 36.3 H, RDWStd Deviation 39.5, RDW Coeff of Rosalee 12.2, Plt Count 156, MPV 10.3, Immature Gran % (Auto) 0.300, Neut % (Auto) 67.7, Lymph % (Auto) 22.6,Archuleta % (Auto) 8.0, Eos % (Auto) 1.2, Baso % (Auto) 0.2, Absolute Neuts (auto) 10.3 H, Absolute Lymphs (auto) 3.44, Nucleated RBC % 0, Sodium 130 L, Potassium 3.7, Chloride 91 L, Carbon Dioxide 16.4 L, Anion Gap 23 H, BUN 42 H, Creatinine 5.32 H, Estim Creat Clear Calc 17.79 L, Est GFR (MDRD) Non-Af 12 L, BUN/Creatinine Ratio 8.0 L, Glucose 80, Calcium 9.1, Magnesium 2.0, Total Creatine Kinase 825 H, Troponin T High Sens 13 03/03/25 21:13: Ethyl Alcohol 117.0 H 03/03/25 21:59: Troponin T Hi Sens 2 Hr 11 03/03/25 22:02: Urine Color Straw, Urine Clarity Clear, Urine pH 6.0, Ur Specific Weston 1.010, Urine Protein 15 H, Urine Glucose (UA) Normal, Urine Ketones Negative, Urine Occult Blood Negative, Urine Nitrite Negative, Urine Bilirubin Negative, Urine Urobilinogen Normal, Ur Leukocyte Esterase Negative, Urine RBC 0 SEEN, Urine WBC 0-5 SEEN, Ur Squamous Epith Cells 0-5 SEEN, Urine Bacteria 0 SEEN, Urine Mucus 0 SEEN 03/03/25 23:30: Troponin T Hi Sens 4Hr 11, TSH 1.110 03/04/25 06:10: WBC 7.0, RBC 3.81 L, Hgb 12.0 L, Hct 34.5 L, MCV 90.6, MCH 31.5,MCHC 34.8, RDW Std Deviation 39.6, RDW Coeff of Rosalee 12.0, Plt Count 104 L, MPV 10.8, Immature Gran % (Auto) 0.300, Neut% (Auto) 62.4, Lymph % (Auto) 28.2, Archuleta % (Auto) 7.6, Eos % (Auto) 1.4, Baso % (Auto) 0.1, Absolute Neuts (auto) 4.3, Absolute Lymphs (auto) 1.96, Nucleated RBC % 0, Sodium 134, Potassium 4.7, Chloride 102, Carbon Dioxide 19.1 L, Anion Gap 12, BUN 36 H, Creatinine 3.67 H, Estim Creat Clear Calc 25.97 L, Est GFR (MDRD) Non-Af 18 L, BUN/Creatinine Ratio9.7 L, Glucose 102 H, Calcium 7.8, Phosphorus3.3, Total Bilirubin 1.04, AST 32,ALT 19, Alkaline Phosphatase 85, Total Creatine Kinase 484 H, Total Protein 5.8 L, Albumin 3.8, Globulin 2.0 L, Albumin/Globulin Ratio 1.9 Micro: Microbiology 03/04/25 08:43 Stool Clostridioides difficile (PCR) - Final Radiography Diagnostic Testing: Radiology Impression Brain CT 03/03/25 20:24 IMPRESSION: No acute intracranial abnormality. Reading Location: [facility] Chest X-Ray 03/03/25 21:30 IMPRESSION: No acute chest findings. Reading Location: [place] [address] Physical Exam Narrative Complaint of nausea and bloating sensation. He also had headache. Had about 4.5 L of IV fluid and 200 mL urine output. Had cough about a week ago and went to urgent care but now it is cleared up. Patient also drinks alcohol though he has cut. Last GI office visit was September 2024. Last hospital admission for alcohol withdrawal was April 2023. Patienthaving diarrhea. Physical exam General: Alert, Oriented x3, Cooperative HEENT: Atraumatic, PERRLA, EOMI, Normocephalic. Oral: No Gingival or Mucosal Lesions/ Ulcerations Neck: Supple, No JVD, Negative Carotid Bruits Chest wall/Lungs: Air entry diminished in bilateral lung bases. No crepitation/rhonchi Cardiovascular: Regular rate and rhythm, Normal S1,S2, No M/G/R Abdomen: Bowel Sounds Present, Soft, mild tenderness bilateral left more than right. : No dysuria. No renal angle tenderness. No suprapubic tenderness. Extremities: No edema, Capillary Refill Less than 3 Seconds Skin: No rashes, No breakdown Musculoskeletal: No Tenderness to Palpation of Joints or Extremities Neurological: Cranial nerves II-XII grossly intact, DTR 2+/4. No acute focal neurological deficit. Psych/Mental Status: Normal Affect, Appropriate. Assessment & Plan Assessment/Plan (1) LUZ MARIA (acute kidney injury): (2) Rhabdomyolysis: QUALIFIERS: Rhabdomyolysis type: non-traumatic Qualified Code(s):M62.82 - Rhabdomyolysis (3) Leukocytosis: QUALIFIERS: Leukocytosis type: unspecified Qualified Code(s): D72.829 - Elevated white blood cell count, unspecified (4) Diarrhea: QUALIFIERS: Diarrhea type: presumed infectious Qualified Code(s):R19.7 - Diarrhea, unspecified (5) Adverse drug reaction: QUALIFIERS: Encounter type: initial encounter Qualified Code(s): T50.905A - Adverse effect of unspecified drugs, medicaments and biological substances, initial encounter (6) Hyponatremia: (7) History of non-ST elevation myocardial infarction (NSTEMI): (8) Obesity (BMI 30.0-34.9): (9) Hepatic steatosis: (10) AARON (obstructive sleep apnea): PLAN: Plan 53 gentleman was admitted with symptoms of dizziness, headache, chest pain that started yesterday after he left work. He felt like he had heatstroke as involved 4 days yesterday, heavy labor. He has been drinking water. Was not evaluated yesterday. 1. Severe LUZ MARIA; in the setting of CKD; stage IIIa with elevated serum creatinineof 5.32 mg/dL with BUN of 42 mg/dL and eGFR of 12 mL/min (up from his baseline of 1.49 mg/dL with a BUN of 12 mg/dL and eGFR of 52 mL/min on last evaluation) -Admit to PCU. Patient had about 4.5 to 5 L of IV fluid. Urineis light yellow and adequate. Avoid potentially nephrotoxic medications. Hold lisinopril. 2. Elevated total creatinine kinase of 825 units/L: Patient had concern of heatexhaustion though hedoes not meet criteria for a true stroke. Follow-up CK shows improvement. 3. Concern for acute alcohol withdrawal with reactive leukocytosis of 15.2 K present on admission with Nonbloody Diarrhea exacerbating volume depletion: Stool studies were negative for C. difficile and enteric pathogen panel. Stool for lactoferrin positive. Most likely noninfectious diarrhea with concern of acute alcohol withdrawal. Patient drinks more than 3 drinks per day mainly beer. Serum alcohol was elevated, 117 on admission. 5. Hyponatremia of 130 mmol/L (down from 137 mmol/L on last evaluation) - repeatsodium is 134. 6. CAD; s/p NSTEMI with subsequent LCX stent (2018) on BASA daily plus prn SL NTG. Hold BASA Continue prn SL NTG. 7. Obesity (class I); with BMI of 31.1 this admission plus AARON and Hepatic Steatosis - Weight loss will be recommended. Check TSH. Resume nocturnal CPAP. This complicates his case and may hamper recovery. 8. History of EtOH abuse; patient admits to only one drink today because he wasnervous but denies chronic EtOH abuse on folate and cyanocobalamin supplements -Noted. Maintain supplementation. 9. Essential hypertension; on lisinopril and carvedilol BID: Continue carvedilol. Hold lisinopril 10. Hyperlipidemia; on atorvastatin - Hold statin with possible superimposed myotoxicity. 11. History of CHF - Stable with no signs of volume overload at this time. 12. History of TIA; with known carotid artery disease - Stable. 13. Former tobacco abuse; with subsequent asthma/COPD - Stable with no evidenceof acute flare at this time. Continue scheduled and as needed nebulizers/inhalers. 14. History of thrombocytopenia - Stable with platelet count 100 56K present onadmission. Depression; with history of suicidal ideation on buspirone TID and trazodone q.HS - Maintain home regimen. GERD; on omeprazole - Continue PPI. Chronic OA - Give acetaminophen prn as outlined in #1. DVT prophylaxis - Heparin 5,000U sq BID plus SCD's. Microbiology Past 72 Hours 03/04/25 08:43 Stool Stool Lactoferrin - Final 03/04/25 08:43 Stool Enteric Bacteriology - Final 03/04/25 08:43 Stool Clostridioides difficile (PCR) - Final Laboratory Results 03/03/25 19:25: WBC 15.2 H, RBC 4.52 L, Hgb 14.5, Hct 39.9 L, MCV 88.3, MCH 32.1H, MCHC 36.3 H, RDWStd Deviation 39.5, RDW Coeff of Rosalee 12.2, Plt Count 156, MPV 10.3, Immature Gran % (Auto) 0.300, Neut % (Auto) 67.7, Lymph % (Auto) 22.6,Archuleta % (Auto) 8.0, Eos % (Auto) 1.2, Baso % (Auto) 0.2, Absolute Neuts (auto) 10.3 H, Absolute Lymphs (auto) 3.44, Nucleated RBC % 0, Sodium 130 L, Potassium 3.7, Chloride 91 L, Carbon Dioxide 16.4 L, Anion Gap 23 H, BUN 42 H, Creatinine 5.32 H, Estim Creat Clear Calc 17.79 L, Est GFR (MDRD) Non-Af 12 L, BUN/Creatinine Ratio 8.0 L, Glucose 80, Calcium 9.1, Magnesium 2.0, Total Creatine Kinase 825 H, Troponin T High Sens 13 03/03/25 21:13: Ethyl Alcohol 117.0 H 03/03/25 21:59: Troponin T Hi Sens 2 Hr 11 03/03/25 22:02: Urine Color Straw, Urine Clarity Clear, Urine pH 6.0, Ur Specific Weston 1.010, Urine Protein 15 H, Urine Glucose (UA) Normal, Urine Ketones Negative, Urine Occult Blood Negative, Urine Nitrite Negative, Urine Bilirubin Negative, Urine Urobilinogen Normal, Ur Leukocyte Esterase Negative, Urine RBC 0 SEEN, Urine WBC 0-5 SEEN, Ur Squamous Epith Cells 0-5 SEEN, Urine Bacteria 0 SEEN, Urine Mucus 0 SEEN 03/03/25 23:30: Troponin T Hi Sens 4Hr 11, TSH 1.110 03/04/25 06:10: WBC 7.0, RBC 3.81 L, Hgb 12.0 L, Hct 34.5 L, MCV 90.6, MCH 31.5,MCHC 34.8, RDW Std Deviation 39.6, RDW Coeff of Rosalee 12.0, Plt Count 104 L, MPV 10.8, Immature Gran % (Auto) 0.300, Neut% (Auto) 62.4, Lymph % (Auto) 28.2, Archuleta % (Auto) 7.6, Eos % (Auto) 1.4, Baso % (Auto) 0.1, Absolute Neuts (auto) 4.3, Absolute Lymphs (auto) 1.96, Nucleated RBC % 0, Sodium 134, Potassium 4.7, Chloride 102, Carbon Dioxide 19.1 L, Anion Gap 12, BUN 36 H, Creatinine 3.67 H, Estim Creat Clear Calc 25.97 L, Est GFR (MDRD) Non-Af 18 L, BUN/Creatinine Ratio9.7 L, Glucose 102 H, Calcium 7.8, Phosphorus3.3, Total Bilirubin 1.04, AST 32,ALT 19, Alkaline Phosphatase 85, Total Creatine Kinase 484 H, Total Protein 5.8 L, Albumin 3.8, Globulin 2.0 L, Albumin/Globulin Ratio 1.9 Clinical Impression(s) from Imaging Studies Brain CT 03/03/25 20:24 IMPRESSION: No acute intracranial abnormality. Reading Location: [id number] Chest X-Ray 03/03/25 21:30 IMPRESSION: No acute chest findings. Reading Location: [facility] Charges/Coding Visit Charges Inpatient E&M: 34106 Subs Hosp L2 03/04/25 1538 Cosigner Signature (if applicable): CC: ~ Signed [facility]08-14-2025 History and physical note Author Michela Noel [facility] Note Date/Time March 04, 2025 6: 42am [facility] Medical Records Department [address] [place] [address] H&P Exam - Hospitalist 03/03/252108 MR#: [id number] Acct: [id number] Name: BETHANY MONTALVO Rep #:[id number] : 1965 59 From: Michela Coronado DO PCP: Keren Kwon, [facility] Status:ADM I N Location: [place] [address] HPI - General General Date of Admission: 03/03/25 Date of Service: 03/03/25 Chief Complaint: Chest Pain, Headache, Dizziness and Exhaustion. HPI Narrative BETHANY MONTALVO, is a 59 M with a past medical history of essential hypertension;on lisinopril and carvedilol BID, hyperlipidemia; on atorvastatin, obesity (class I); with BMI of 31.1 this admission, AARON, CAD; s/p NSTEMI with subsequentLCX stent (2017) on BASA daily plus prn SL NTG, history of CHF, history of TIA; with known carotid artery disease, former tobacco abuse; with subsequent asthma/COPD, history of EtOH abuse; patient admits to only one drink today because he was nervous but denies chronic EtOH abuse on folate and cyanocobalamin supplements, history of liver steatosis, history of thrombocytopenia, history of medical noncompliance, history of gallbladder polyp, CKD; stage IIIa, depression; with history of suicidal ideation on buspirone TID and trazodone q. HS, muscle spasms; on prn tizanidine, GERD; on omeprazole and OA who presents to [facility] ER complaining of chest pain, headache, dizziness and exhaustion. Mr. Montalvo reports his symptoms began approximately 1 day prior to admission after he worked his first full day of heavy labor in the heat. He states he wasdrinking warm water and felt worse throughout the day with subsequent headache, dizziness and spinning sensation complicated by intermittent chest pain and nonbloody diarrhea. He denies recent antibiotics or similar prior episodes. Headmits to recent decrease in urinary output but he denies dysuria, hematuria or urinary frequency. He also denies associated fever, chills, runny nose, sore throat, ear pain, chest pain, palpitations, heart racing, lower extremity edema,shortness of breath, cough, abdominal pain, nausea, vomiting, arthralgias, myalgias, paresthesias, focal neurologic deficits or rash. In the ER he was noted to have laboratory evidence of severe LUZ MARIA; with elevated serum creatinine of 5.32 mg/dL with BUN of 42 mg/dL and eGFR of 12 mL/min (up from his baseline of 1.49 mg/dL with a BUN of 12 mg/dL and eGFR of 52 mL/min on last evaluation) complicated by elevated total creatinine kinase of 825 units/L due to Myotoxicity after recent strenuous exertion in the heat of the day with Leukocytosis of 15.2 K present on admission with Nonbloody Diarrhea and mild Hyponatremia of 130 mmol/L (down from 137 mmol/L on last evaluation) with a headCT done in the ER that revealed no acute intracranial abnormality. He was then admitted to the PCU for ongoing care for a stay that is expected to extend beyond 2 midnights. [facility] Medical History Personal history of colon polyps, unspecified Family history of malignant neoplasm of colon in father Anxiety Kidney disease GERD (gastroesophageal reflux disease) GI bleed Sleep apnea Former smoker Asthma Irregular heart beat Myocardial infarct TIA (transient ischemic attack) Abdominal pain Alcohol withdrawal Acute dehydration Nausea & vomiting Dehydration Alcoholic hepatitis Thrombocytopenia LUZ MARIA (acute kidney injury) Alcohol withdrawal Carotid artery disease Chronic kidney disease History of non-ST elevation myocardial infarction (NSTEMI) Coronary artery disease COPD (chronic obstructive pulmonary disease) Lung nodule Tobacco use WILSON (dyspnea on exertion) Fatigue Chest pain Heart failure COPD exacerbation Hypoxia Community acquired pneumonia Alcohol intoxication Suicidal ideation Atherosclerosis of coronary artery of [place] heart without angina pectoris Depression NSTEMI (non-ST elevated myocardial infarction) Obesity (BMI 30.0-34.9) Hyperlipidemia Hypertension Alcohol abuse Chest pain Home Medications ?Medication ?Instructions ?Recorded ?Last Taken ?Type omeprazole 20 mg capsule,delayed 20 mg PO DAILY heart burn 06/17/14 01/12/19 10:30 History release 20 MG nitroglycerin 0.4 mg sublingual 0.4 mg sublingual Q5M PRN Chest 12/24/22 Unknown Rx tablet Pain #25 tabs cyclobenzaprine 10 mg tablet 10 mg PO DAILY PRN Pain 0 10/14/23 Unknown History folic acid 1 mg tablet 1 mg PO DAILY 10/14/23 Unkno wn History magnesium oxide 400 mg (241.3 mg 400 mg PO DAILY 10/13 Unknown History magnesium) tablet thiamine HCl (vitamin B1) 100 mg 100 mg PO DAILY 10/13 Unknown History tablet buspirone 7.5 mg tablet 7.5 mg PO TID 09/29/24 Unkno wn History carvedilol 25 mg tablet 25 mg PO BID 09/29/24 Unknow n History lisinopril 10 mg tablet 10 mg PO QDAY 09/29/24 Unkno wn History trazodone 50 mg tablet 100 mg PO QHS 09/29/24 Unkno wn History aspirin 81 mg tablet,delayed 81 mg PO DAILY heart #90 tabs 10/27/24 Unknown Rx release atorvastatin 40 mg tablet 40 mg PO QHS #90 tabs Unknown Rx cyanocobalamin (vitamin B-12) 100 100 mcg PO DAILY 05/15 Unknown History mcg tablet (Vitamin B-12) multivitamin (Daily Multi-Vitamin 1 tab PO DAILY 01/28 Unknown History tablet) Allergy/AdvReac Type Severity Reaction Status Date / Time pseudoephedrine AdvReac Mild prostate Verified 03/03/25 19:15 infections Family History Mother CAD (coronary artery disease) Father CAD (coronary artery disease) Colon cancer, Onset Age: 53 At 53yrs Brother CAD (coronary artery disease) Myocardial infarction Sister CAD (coronary artery disease) Surgical History Hx of colonoscopy History of coronary artery stent placement Stented coronary artery History of tonsillectomy Hx of eye surgery Social History household members: significant other housing: apartment current occupational status: employed current occupation: [employer] Smoking Status: Former smoker alcohol intake: current alcohol intake frequency: 3 or more drinks per day substance use type: former substance user caffeine: Yes Type: coffee Number of servings: 2 what type of physical activity do you participate in: none ROS ROS Narrative Review of Systems: Constitutional: Patient denies fever or chills. Eyes: Patient denies changes in vision or discharge from eyes. ENT: Patient denies runny nose, sore throat or ear pain. Resp: Patient denies shortness of breath or cough. CV: Patient denies chest pain, palpitations, heart racing or lower extremity edema. GI: Patient admits to nonbloody diarrhea but he denies abdominal pain, nausea vomiting or constipation as per HPI. : Patient admits to decreased urinary output but he denies dysuria or hematuria as per HPI. MSK: Patient denies arthralgias or myalgias. Skin: Patient denies rash, abscess, wounds or jaundice. Psych: Patient denies symptoms of uncontrolled depression or anxiety. Neuro: Patient admits to headache but he denies paresthesias or focal neurologicdeficits. Allergy: Patient denies lip swelling, tongue swelling or urticaria. Hematology: Patient denies easy bleeding or easy bruisability. Endocrinology: Patient denies polyuria, polydipsia, polyphagia or cold intolerance. 14 point ROS otherwise negative except for positives noted above in HPI. Vital Signs Vital Signs Vital Signs: 03/03/25 19:12 03/03/25 19:12 03/03/25 19:12 Temperature 98.0 F Temperature Source Temporal Pulse Rate 111 H Respiratory Rate 16 Respiratory Effort Normal Non-Labored Blood Pressure 119/66 83/60 L Blood Pressure Mean 83 67 Pulse Ox 99 Oxygen Delivery Method Room Air 03/03/25 19:26 03/03/25 20:12 03/03/25 20:48 Temperature Temperature Source Pulse Rate 100 101 H Respiratory Rate 18 25 H Respiratory Effort Blood Pressure 98/65 87/55 L 110/71 Blood Pressure Mean 76 65 84 Pulse Ox 98 97 Oxygen Delivery Method Room Air Room Air Weight Weight: 216 lb 8 oz Body Mass Index (BMI) 31.0 Physical Exam Const alert, oriented x3 and no apparent distress Constitutional Narrative: Obese and nontoxic in appearance. General Appearance: cooperative HEENT normocephalic, head/scalp atraumatic and hearing grossly normal bilaterally HEENT Narrative: Mucous membranes dry. Eyes PERRL, EOMs intact bilaterally and conjunctivae normal Neck no lymphadenopathy, supple and no JVD Resp normal respiratory effort, no retractions, no use of accessory muscles and clearto auscultation bilaterally Cardio regular rate and regular rhythm Cardio Narrative: Mild tachycardia noted at ~101 bpm. GI normal to inspection, nondistended, normoactive bowel sounds, soft to palpation,non-tender and non-distended GI Narrative: Obese. Extremity normal to inspection, full ROM and no clubbing, cyanosis or edema Skin Skin Narrative: Patient is evidence of rash, abscess, wounds or jaundice. Neuro oriented x3, CN's II-XII intact bilaterally, moves all extremities and no focal motor deficits Sensorium / Orientation: awake, alert, oriented to person, oriented to place andoriented to time Speech: speech normal Psych affect normal Results Medical Records Data Attestation: I reviewed the patient's medical records Lab / Micro Data Attestation: I reviewed the patient's lab results. 03/03/25 19:25 03/03/25 19:25 Labs: Laboratory Results - last 24 hr 03/03/25 19:25: WBC 15.2 H, RBC 4.52 L, Hgb 14.5, Hct 39.9 L, MCV 88.3, MCH 32.1H, MCHC 36.3 H, RDW Std Deviation 39.5, RDW Coeff of Rosalee 12.2, Plt Count 156, MPV 10.3, Immature Gran % (Auto) 0.300, Neut % (Auto) 67.7, Lymph % (Auto) 22.6,Archuleta % (Auto) 8.0, Eos % (Auto) 1.2, Baso % (Auto) 0.2, Absolute Neuts (auto) 10.3 H, Absolute Lymphs (auto) 3.44, Nucleated RBC % 0, Sodium 130 L, Potassium 3.7, Chloride 91 L, Carbon Dioxide 16.4 L, Anion Gap 23 H, BUN 42 H, Creatinine 5.32 H, Estim Creat Clear Calc 17.79 L, Est GFR (MDRD) Non-Af 12 L, BUN/Creatinine Ratio 8.0 L, Glucose 80, Calcium 9.1, Total Creatine Kinase 825 H,Troponin T High Sens 13 Imaging Radiology Impression Brain CT 03/03/25 20:24 IMPRESSION: No acute intracranial abnormality. Reading Location: [id number] Assessment & Plan Assessment/Plan (1) LUZ MARIA (acute kidney injury): (2) Rhabdomyolysis: QUALIFIERS: Rhabdomyolysis type: non-traumatic Qualified Code(s):M62.82 - Rhabdomyolysis (3) Leukocytosis: QUALIFIERS: Leukocytosis type: unspecified Qualified Code(s): D72.829 - Elevated white blood cell count, unspecified (4) Diarrhea: QUALIFIERS: Diarrhea type: presumed infectious Qualified Code(s):R19.7 - Diarrhea, unspecified (5) Adverse drug reaction: QUALIFIERS: Encounter type: initial encounter Qualified Code(s): T50.905A - Adverse effect of unspecified drugs, medicaments and biological substances, initial encounter (6) Hyponatremia: (7) History of non-ST elevation myocardial infarction (NSTEMI): (8) Obesity (BMI 30.0-34.9): (9) Hepatic steatosis: (10) AARON (obstructive sleep apnea): PLAN: Plan 1. Severe LUZ MARIA; in the setting of CKD; stage IIIa with elevated serum creatinineof 5.32 mg/dL with BUN of 42 mg/dL and eGFR of 12 mL/min (up from his baseline of 1.49 mg/dL with a BUN of 12 mg/dL and eGFR of 52 mL/min on last evaluation) -Admit to PCU. Continuous vigorous volume resuscitation begun in ER recheck renal indices daily to follow trend for hopeful improvement. We will avoid potentially nephrotoxic agents. Give ondansetron IV as needed for nausea vomiting. Give acetaminophen as needed for pain or fever. 2. Elevated total creatinine kinase of 825 units/L due to Myotoxicity after recent strenuous exertion in the heat of the day with Chest Pain, Headache, Dizziness and Exhaustion likely primarily causing #1 - Serialize total CK to follow trend. PT/OT and Case Management consult treat on rounds in a.m. for further recommendations with appreciated advance. 3. Leukocytosis of 15.2 K present on admission with Nonbloody Diarrhea exacerbating volume depletion complicating #1 & #2 - Check stool studies and place on enteric precautions. 4. Adverse Drug Reaction to lisinopril also contributing to #1 - Hold lisinopril. Give hydralazine IV prn for systolic blood pressure > 160 mmHg. 5. Hyponatremia of 130 mmol/L (down from 137 mmol/L on last evaluation) - Give NS IVF and then recheck CMP in AM to ensure improvement. 6. CAD; s/p NSTEMI with subsequent LCX stent (2018) on BASA daily plus prn SL NTG adding to the medical complexity of #1 - #5 - Hold BASA in light of #1. Continue prn SL NTG. 7. Obesity (class I); with BMI of 31.1 this admission plus AARON and Hepatic Steatosis - Weight loss will be recommended. Check TSH. Resume nocturnal CPAP. This complicates his case and may hamper recovery. 8. History of EtOH abuse; patient admits to only one drink today because he wasnervous but denies chronic EtOH abuse on folate and cyanocobalamin supplements -Noted. Maintain supplementation. 9. Essential hypertension; on lisinopril and carvedilol BID - Hold lisinopril in light of LUZ MARIA outlined on #1. Resume carvedilol as previous. 10. Hyperlipidemia; on atorvastatin - Hold statin with possible superimposed myotoxicity. 11. History of CHF - Stable with no signs of volume overload at this time. 12. History of TIA; with known carotid artery disease - Stable. 13. Former tobacco abuse; with subsequent asthma/COPD - Stable with no evidenceof acute flare at this time. Continue scheduled and as needed nebulizers/inhalers. 14. History of thrombocytopenia - Stable with platelet count 100 56K present onadmission. 15. History of medical noncompliance - Noted. 16. History of gallbladder polyp - noted. 17. Depression; with history of suicidal ideation on buspirone TID and trazodone q. HS - Maintain home regimen. 18. Muscle spasms; on prn tizanidine - Resume prn tizanidine for muscle spasms. 19. GERD; on omeprazole - Continue PPI. 20. OA - Give acetaminophen prn as outlined in #1. 21. DVT prophylaxis - Heparin 5,000U sq BID plus SCD's. Total time: Approximately (but not less than) 75 minutes. Charges/Coding Visit Charges Inpatient E&M: 45538 Init Hosp L3 03/04/25 0642 <Electronically signed by Michela Murillo DO> Cosigner Signature (if applicable): CC: XUAN Kwon; Dr. Michela Murillo DO~ Signed [facility] Work Phone: [phone] 565-986908-14-2025 History and physical note [facility] Medical Records Department [address] [place] [address] H&P Exam - Hospitalist 03/03/252108 MR#: [id number] Acct: [id number] Name: BETHANY MONTALVO Rep #:[id number] : 1965 59 From: Michela Coronado DO PCP: Keren Kwon, [facility] Status:ADM I N Location: [place] [address] HPI - General General Date of Admission: 03/03/25 Date of Service: 03/03/25 Chief Complaint: Chest Pain, Headache, Dizziness and Exhaustion. HPI Narrative BETHANY MONTALVO, is a 59 M with a past medical history of essential hypertension;on lisinopril and carvedilol BID, hyperlipidemia; on atorvastatin, obesity (class I); with BMI of 31.1 this admission, AARON, CAD; s/p NSTEMI with subsequentLCX stent (2017) on BASA daily plus prn SL NTG, history of CHF, h istory of TIA; with known carotid artery disease, former tobacco abuse; with subsequent asthma/COPD, history of EtOH abuse; patient admits to only one drink today because he was nervous but denies chronic EtOH abuse on folate and cyanocobalamin supplements, history of liver steatosis, history of thr ombocytopenia, history of medical noncompliance, history of gallbladder polyp, CKD; stage IIIa, depression; with history of suicidal ideation on buspirone TID and trazodone q. HS, muscle spasms; on prn tizanidine, GERD; on omeprazole and OA who presents to [facility] ER complaining of chest pain, headache, dizziness and exhaustion. Mr. Montalvo reports his symptoms began approximately 1 day prior to admission after he worked his first full day of heavy labor in the heat. He states he wasdrinking warm water and felt worse throughout the day with subsequent headache, dizziness and spinning sensation complicated by intermittent chest pain and nonbloody diarrhea. He denies recent antibiotics or similar prior episodes. Headmits to recent decrease in urinary output but he denies dysuria, hematuria or urinary frequency. He also denies associated fever, chills, runny nose, sore throat, ear pain, chest pain, palpitations, heart racing, lower extremity edema,shortness of breath, cough, abdominal pain, nausea, vomiting, arthralgias, myalgias, paresthesias, focal neurologic deficits or rash. In the ER he was noted to have laboratory evidence of severe LUZ MARIA; with elevated serum creatinine of 5.32 mg/dL with BUN of 42 mg/dL and eGFR of 12 mL/min (up from his baseline of 1.49 mg/dL with a BUN of 12 mg/dL and eGFR of 52 mL/min onlast evaluation) complicated by elevated total creatinine kinase of 825 units/L due to Myotoxicity after recent strenuous exertion in the heat of the day with Leukocytosis of 15.2 K present on admission with Nonbloody Diarrhea and mild Hyponatremia of 130 mmol/L (down from 137 mmol/L on last evaluation) with a headCT done in the ER that revealed no acute intracranial abnormality. He was then admitted to the PCU for ongoing care for a stay that is expected to extend beyond 2 midnights. [facility] Medical History Personal history of colon polyps, unspecified Family history of malignant neoplasm of colon in father Anxiety Kidney disease GERD (gastroesophageal reflux disease) GI bleed Sleep apnea Former smoker Asthma Irregular heart beat Myocardial infarct TIA (transient ischemic attack) Abdominal pain Alcohol withdrawal Acute dehydration Nausea & vomiting Dehydration Alcoholic hepatitis Thrombocytopenia LUZ MARIA (acute kidney injury) Alcohol withdrawal Carotid artery disease Chronic kidney disease History of non-ST elevation myocardial infarction (NSTEMI) Coronary artery disease COPD (chronic obstructive pulmonary disease) Lung nodule Tobacco use WILSON (dyspnea on exertion) Fatigue Chest pain Heart failure COPD exacerbation Hypoxia Community acquired pneumonia Alcohol intoxication Suicidal ideation Atherosclerosis of coronary artery of bill moore[place] slough heart without angina pectoris Depression NSTEMI (non-ST elevated myocardial infarction) Obesity (BMI 30.0-34.9) Hyperlipidemia Hypertension Alcohol abuse Chest pain Home Medications ?Medication ?Instructions ?Recorded ?Last Taken ?Type omeprazole 20 mg capsule,delayed 20 mg PO DAILY heart burn 06/17/14 01/12/19 10:30 History release 20 MG nitroglycerin 0.4 mg sublingual 0.4 mg sublingual Q5M PRN Chest 12/24/22 Unknown Rx tablet Pain #25 tabs cyclobenzaprine 10 mg tablet 10 mg PO DAILY PRN Pain 0 10/14/23 Unknown History folic acid 1 mg tablet 1 mg PO DAILY 10/14/23 Unkno wn History magnesium oxide 400 mg (241.3 mg 400 mg PO DAILY 10/13 Unknown History magnesium) tablet thiamine HCl (vitamin B1) 100 mg 100 mg PO DAILY 10/13 Unknown History tablet buspirone 7.5 mg tablet 7.5 mg PO TID 09/29/24 Unkno wn History carvedilol 25 mg tablet 25 mg PO BID 09/29/24 Unknow n History lisinopril 10 mg tablet 10 mg PO QDAY 09/29/24 Unkno wn History trazodone 50 mg tablet 100 mg PO QHS 09/29/24 Unkno wn History aspirin 81 mg tablet,delayed 81 mg PO DAILY heart #90 tabs 10/27/24 Unknown Rx release atorvastatin 40 mg tablet 40 mg PO QHS #90 tabs Unknown Rx cyanocobalamin (vitamin B-12) 100 100 mcg PO DAILY 05/15 Unknown History mcg tablet (Vitamin B-12) multivitamin (Daily Multi-Vitamin 1 tab PO DAILY 01/28 Unknown History tablet) Allergy/AdvReac Type Severity Reaction Status Date / Time pseudoephedrine AdvReac Mild prostate Verified 03/03/25 19:15 infections Family History Mother CAD (coronary artery disease) Father CAD (coronary artery disease) Colon cancer, Onset Age: 53 At 53yrs Brother CAD (coronary artery disease) Myocardial infarction Sister CAD (coronary artery disease) Surgical History Hx of colonoscopy History of coronary artery stent placement Stented coronary artery History of tonsillectomy Hx of eye surgery Social History household members: significant other housing: apartment current occupational status: employed current occupation: [employer] Smoking Status: Former smoker alcohol intake: current alcohol intake frequency: 3 or more drinks per day substance use type: former substance user caffeine: Yes Type: coffee Number of servings: 2 what type of physical activity do you participate in: none ROS ROS Narrative Review of Systems: Constitutional: Patient denies fever or chills. Eyes: Patient denies changes in vision or discharge from eyes. ENT: Patient denies runny nose, sore throat or ear pain. Resp: Patient denies shortness of breath or cough. CV: Patient denies chest pain, palpitations, heart racing or lower extremity edema. GI: Patient admits to nonbloody diarrhea but he denies abdominal pain, nausea vomiting or constipation as per HPI. : Patient admits to decreased urinary output but he denies dysuria or hematuria as per HPI. MSK: Patient denies arthralgias or myalgias. Skin: Patient denies rash, abscess, wounds or jaundice. Psych: Patient denies symptoms of uncontrolled depression or anxiety. Neuro: Patient admits to headache but he denies paresthesias or focal neurologicdeficits. Allergy: Patient denies lip swelling, tongue swelling or urticaria. Hematology: Patient denies easy bleeding or easy bruisability. Endocrinology: Patient denies polyuria, polydipsia, polyphagia or cold intolerance. 14 point ROS otherwise negative except for positives noted above in HPI. Vital Signs Vital Signs Vital Signs: 03/03/25 19:12 03/03/25 19:12 03/03/25 19:12 Temperature 98.0 F Temperature Source Temporal Pulse Rate 111 H Respiratory Rate 16 Respiratory Effort Normal Non-Labored Blood Pressure 119/66 83/60 L Blood Pressure Mean 83 67 Pulse Ox 99 Oxygen Delivery Method Room Air 03/03/25 19:26 03/03/25 20:12 03/03/25 20:48 Temperature Temperature Source Pulse Rate 100 101 H Respiratory Rate 18 25 H Respiratory Effort Blood Pressure 98/65 87/55 L 110/71 Blood Pressure Mean 76 65 84 Pulse Ox 98 97 Oxygen Delivery Method Room Air Room Air Weight Weight: 216 lb 8 oz Body Mass Index (BMI) 31.0 Physical Exam Const alert, oriented x3 and no apparent distress Constitutional Narrative: Obese and nontoxic in appearance. General Appearance: cooperative HEENT normocephalic, head/scalp atraumatic and hearing grossly normal bilaterally HEENT Narrative: Mucous membranes dry. Eyes PERRL, EOMs intact bilaterally and conjunctivae normal Neck no lymphadenopathy, supple and no JVD Resp normal respiratory effort, no retractions, no use of accessory muscles and clearto auscultation bilaterally Cardio regular rate and regular rhythm Cardio Narrative: Mild tachycardia noted at ~101 bpm. GI normal to inspection, nondistended, normoactive bowel sounds, soft to palpation,non-tender and non-distended GI Narrative: Obese. Extremity normal to inspection, full ROM and no clubbing, cyanosis or edema Skin Skin Narrative: Patient is evidence of rash, abscess, wounds or jaundice. Neuro oriented x3, CN's II-XII intact bilaterally, moves all extremities and no focal motor deficits Sensorium / Orientation: awake, alert, oriented to person, oriented to place andoriented to time Speech: speech normal Psych affect normal Results Medical Records Data Attestation: I reviewed the patient's medical records Lab / Micro Data Attestation: I reviewed the patient's lab results. 03/03/25 19:25 03/03/25 19:25 Labs: Laboratory Results - last 24 hr 03/03/25 19:25: WBC 15.2 H, RBC 4.52 L, Hgb 14.5, Hct 39.9 L, MCV 88.3, MCH 32.1H, MCHC 36.3 H, RDWStd Deviation 39.5, RDW Coeff of Rosalee 12.2, Plt Count 156, MPV 10.3, Immature Gran % (Auto) 0.300, Neut % (Auto) 67.7, Lymph % (Auto) 22.6,Archuleta % (Auto) 8.0, Eos % (Auto) 1.2, Baso % (Auto) 0.2, Absolute Neuts (auto) 10.3 H, Absolute Lymphs (auto) 3.44, Nucleated RBC % 0, Sodium 130 L, Potassium 3.7, Chloride 91 L, Carbon Dioxide 16.4 L, Anion Gap 23 H, BUN 42 H, Creatinine 5.32 H, Estim Creat Clear Calc 17.79 L, Est GFR (MDRD) Non-Af 12 L, BUN/Creatinine Ratio 8.0 L, Glucose 80, Calcium 9.1, Total Creatine Kinase 825 H,Troponin T High Sens 13 Imaging Radiology Impression Brain CT 03/03/25 20:24 IMPRESSION: No acute intracranial abnormality. Reading Location: [facility] Assessment & Plan Assessment/Plan (1) LUZ MARIA (acute kidney injury): (2) Rhabdomyolysis: QUALIFIERS: Rhabdomyolysis type: non-traumatic Qualified Code(s):M62.82 - Rhabdomyolysis (3) Leukocytosis: QUALIFIERS: Leukocytosis type: unspecified Qualified Code(s): D72.829 - Elevated white blood cell count, unspecified (4) Diarrhea: QUALIFIERS: Diarrhea type: presumed infectious Qualified Code(s):R19.7 - Diarrhea, unspecified (5) Adverse drug reaction: QUALIFIERS: Encounter type: initial encounter Qualified Code(s): T50.905A - Adverse effect of unspecified drugs, medicaments and biological substances, initial encounter (6) Hyponatremia: (7) History of non-ST elevation myocardial infarction (NSTEMI): (8) Obesity (BMI 30.0-34.9): (9) Hepatic steatosis: (10) AARON (obstructive sleep apnea): PLAN: Plan 1. Severe LUZ MARIA; in the setting of CKD; stage IIIa with elevated serum creatinineof 5.32 mg/dL with BUN of 42 mg/dL and eGFR of 12 mL/min (up from his baseline of 1.49 mg/dL with a BUN of 12 mg/dL and eGFR of 52 mL/min on last evaluation) -Admit to PCU. Continuous vigorous volume resuscitation begun in ER recheck renal indices daily to follow trend for hopeful improvement. We will avoid potentiallynephrotoxic agents. Give ondansetron IV as needed for nausea vomiting. Give acetaminophen as neededfor pain or fever. 2. Elevated total creatinine kinase of 825 units/L due to Myotoxicity after recent strenuous exertion in the heat of the day with Chest Pain, Headache, Dizziness and Exhaustion likely primarily causing #1 - Serialize total CK to follow trend. PT/OT and Case Management consult treat on rounds in a.m. for further recommendations with appreciated advance. 3. Leukocytosis of 15.2 K present on admission with Nonbloody Diarrhea exacerbating volume depletion complicating #1 & #2 - Check stool studies and place on enteric precautions. 4. Adverse Drug Reaction to lisinopril also contributing to #1 - Hold lisinopril. Give hydralazine IV prn for systolic blood pressure > 160 mmHg. 5. Hyponatremia of 130 mmol/L (down from 137 mmol/L on last evaluation) - Give NS IVF and then recheck CMP in AM to ensure improvement. 6. CAD; s/p NSTEMI with subsequent LCX stent (2018) on BASA daily plus prn SL NTG adding to the medical complexity of #1 - #5 - Hold BASA in light of #1. Continue prn SL NTG. 7. Obesity (class I); with BMI of 31.1 this admission plus AARON and Hepatic Steatosis - Weight loss will be recommended. Check TSH. Resume nocturnal CPAP. This complicates his case and may hamper recovery. 8. History of EtOH abuse; patient admits to only one drink today because he wasnervous but denies chronic EtOH abuse on folate and cyanocobalamin supplements -Noted. Maintain supplementation. 9. Essential hypertension; on lisinopril and carvedilol BID - Hold lisinopril in light of LUZ MARIA outlined on #1. Resume carvedilol as previous. 10. Hyperlipidemia; on atorvastatin - Hold statin with possible superimposed myotoxicity. 11. History of CHF - Stable with no signs of volume overload at this time. 12. History of TIA; with known carotid artery disease - Stable. 13. Former tobacco abuse; with subsequent asthma/COPD - Stable with no evidenceof acute flare at this time. Continue scheduled and as needed nebulizers/inhalers. 14. History of thrombocytopenia - Stable with platelet count 100 56K present onadmission. 15. History of medical noncompliance - Noted. 16. History of gallbladder polyp - noted. 17. Depression; with history of suicidal ideation on buspirone TID and trazodone q. HS - Maintain home regimen. 18. Muscle spasms; on prn tizanidine - Resume prn tizanidine for muscle spasms. 19. GERD; on omeprazole - Continue PPI. 20. OA - Give acetaminophen prn as outlined in #1. 21. DVT prophylaxis - Heparin 5,000U sq BID plus SCD's. Total time: Approximately (but not less than) 75 minutes. Charges/Coding Visit Charges Inpatient E&M: 03094 Init Hosp 03/04/25 0642 Cosigner Signature (if applicable): CC: XUAN Kwon; Dr. Michela Murillo, DO~ Signed [facility]08-14-2025 Discharge summary Author Jake Mcdonough [facility] Note Date/Time March 03, 2025 11 :23pm [facility] Medical Records Department [address] [place] [address] Emergency Department Summary 03/03/25 MR#: [id number] Acct: [id number] Name: BETHANY MONTALVO Rep #:[id number] : 1965 59 From: Jake Sloan PCP: XUAN Armendariz Status:ADM I N Location: [place] [address] HPI History of Present Illness Chief Complaint: Chest Pain Informant: patient Narrative Narrative: Presents to the ED for evaluation of headache, dizziness, chest pain since yesterday after leaving work. He worked his first full day yesterday a lot of heavy labor. States he was warm he was drinking water. He had 1/2-day prior tothat. At the end of the day headache with dizziness and spinning. Intermittentchest pain. He states he did not urinate yesterday. Today urinated once. History of coronary disease 1 stent in 2018. No diabetes history. Has history of CKD. He states last couple days has had nonbloody loose stools. No recent antibiotics. Prior similar symptoms: No PFSH PFSH Medical History Personal history of colon polyps, unspecified Family history of malignant neoplasm of colon in father Anxiety Kidney disease GERD (gastroesophageal reflux disease) GI bleed Sleep apnea Former smoker Asthma Irregular heart beat Myocardial infarct TIA (transient ischemic attack) Abdominal pain Alcohol withdrawal Acute dehydration Nausea & vomiting Dehydration Alcoholic hepatitis Thrombocytopenia LUZ MARIA (acute kidney injury) Alcohol withdrawal Carotid artery disease Chronic kidney disease History of non-ST elevation myocardial infarction (NSTEMI) Coronary artery disease COPD (chronic obstructive pulmonary disease) Lung nodule Tobacco use WILSON (dyspnea on exertion) Fatigue Chest pain Heart failure COPD exacerbation Hypoxia Community acquired pneumonia Alcohol intoxication Suicidal ideation Atherosclerosis of coronary artery of [place] heart without angina pectoris Depression NSTEMI (non-ST elevated myocardial infarction) Obesity (BMI 30.0-34.9) Hyperlipidemia Hypertension Alcohol abuse Chest pain Home Medications ?Medication ?Instructions ?Recorded ?Last Taken ?Type omeprazole 20 mg capsule,delayed 20 mg PO DAILY heart burn 06/17/14 01/12/19 10:30 History release 20 MG nitroglycerin 0.4 mg sublingual 0.4 mg sublingual Q5M PRN Chest 12/24/22 Unknown Rx tablet Pain #25 tabs cyclobenzaprine 10 mg tablet 10 mg PO DAILY PRN Pain 0 10/14/23 Unknown History folic acid 1 mg tablet 1 mg PO DAILY 10/14/23 Unkno wn History magnesium oxide 400 mg (241.3 mg 400 mg PO DAILY 10/13 Unknown History magnesium) tablet thiamine HCl (vitamin B1) 100 mg 100 mg PO DAILY 10/13 Unknown History tablet buspirone 7.5 mg tablet 7.5 mg PO TID 09/29/24 Unkno wn History carvedilol 25 mg tablet 25 mg PO BID 09/29/24 Unknow n History lisinopril 10 mg tablet 10 mg PO QDAY 09/29/24 Unkno wn History trazodone 50 mg tablet 100 mg PO QHS 09/29/24 Unkno wn History aspirin 81 mg tablet,delayed 81 mg PO DAILY heart #90 tabs 10/27/24 Unknown Rx release atorvastatin 40 mg tablet 40 mg PO QHS #90 tabs Unknown Rx cyanocobalamin (vitamin B-12) 100 100 mcg PO DAILY 05/15 Unknown History mcg tablet (Vitamin B-12) multivitamin (Daily Multi-Vitamin 1 tab PO DAILY 01/28 Unknown History tablet) Allergy/AdvReac Type Severity Reaction Status Date / Time pseudoephedrine AdvReac Mild prostate Verified 03/03/25 19:15 infections Family History Mother CAD (coronary artery disease) Father CAD (coronary artery disease) Colon cancer, Onset Age: 53 At 53yrs Brother CAD (coronary artery disease) Myocardial infarction Sister CAD (coronary artery disease) Surgical History Hx of colonoscopy History of coronary artery stent placement Stented coronary artery History of tonsillectomy Hx of eye surgery Social History household members: significant other housing: apartment current occupational status: employed current occupation: [employer] Smoking Status: Former smoker alcohol intake: current alcohol intake frequency: 3 or more drinks per day substance use type: former substance user caffeine: Yes Type: coffee Number of servings: 2 what type of physical activity do you participate in: none ROS ROS ED Constitutional Constitutional ED: Denies chills, fever(s) or sweats ENT ENT ED: Denies sore throat Cardiovascular Cardiovascular: Denies chest pain, leg edema, palpitations or racing heartbeat Respiratory/Chest Respiratory/Chest: Denies cough, dyspnea or dyspnea on exertion Gastrointestinal Gastrointestinal: Denies abdominal pain, diarrhea, nausea or vomiting Genitourinary Genitourinary ED: Reports other Details: Decreased urine output ; Denies dysuria, hematuria or urinary frequency Musculoskeletal Musculoskeletal: Denies back pain, extremity pain or neck pain Integumentary Denies rash or wounds Neurologic Neurologic: Reports headache(s) and other Details: Dizziness ; Denies paresthesias or weakness EXAM Physical Exam Const Vital Signs: 03/03/25 19:12 03/03/25 19:12 03/03/25 19:12 Temperature 98.0 F Temperature Source Temporal Pulse Rate 111 H Respiratory Rate 16 Respiratory Effort Normal Non-Labored Blood Pressure 119/66 83/60 L Blood Pressure Mean 83 67 Pulse Ox 99 Oxygen Delivery Method Room Air 03/03/25 19:26 03/03/25 20:12 03/03/25 20:48 Temperature Temperature Source Pulse Rate 100 101 H Respiratory Rate 18 25 H Respiratory Effort Blood Pressure 98/65 87/55 L 110/71 Blood Pressure Mean 76 65 84 Pulse Ox 98 97 Oxygen Delivery Method Room Air Room Air 03/03/25 21:00 03/03/25 21:11 Temperature 98.4 F Temperature Source Pulse Rate 96 96 Respiratory Rate 25 H 25 H Respiratory Effort Blood Pressure 110/68 110/68 Blood Pressure Mean 82 82 Pulse Ox 97 99 Oxygen Delivery Method Room Air Positive well nourished and well developed General Appearance ED: well developed and NAD HEENT Reports dry mucous membranes HEENT Narrative: Mild dry mucosal membranes normocephalic and atraumatic Mouth ED: Yes dry mucous membranes Mouth: dry mucous membranes Eyes General Eye ED: Yes normal appearance of both eyes Neck full ROM Chest Wall Chest: Negative for tenderness Resp normal respiratory effort and normal air movement Effort and Inspection: symmetric chest movement; Negative for respiratory distress Cardio regular rhythm and no murmurs Rate: tachycardic Peripheral Pulses: pulses 2+ throughout GI normal to inspection, nondistended, normoactive bowel sounds and non-tender Palpation: Negative for guarding or rebound tenderness present Extremity normal to inspection General Extremety ED: Negative for edema or tenderness General Extremity: Negative for edema Neuro oriented x3, CN's II-XII intact bilaterally and no sensory deficits noted Sensorium / Orientation: awake and alert Skin no rashes or lesions noted and no wounds MDM MDM MDM Narrative Medical decision making narrative: Interventions / MDM: Differential diagnosis: Acute kidney injury, dehydration, rhabdomyolysis, alcohol use Diagnosis considered but do not suspect: N/A My EKG interpretation: Sinus rate of 107, no ST or T wave changes. QTc 461. Imaging independently reviewed and interpreted by myself: CT brain: No acute process. Chest x-ray 1 view: No acute process also read by radiology. External documents reviewed: Creatinine in September 2023 was 1.49. Test considered but not ordered:N/A ED course: Patient history is concerning for heat exhaustion leading to vertigo symptoms headache. Presenting blood pressure in the 70s heart rate 107. 2 L offluid was ordered. Will check labs and cardiac enzymes. EKG with no acute concerns. CT angiogram head and neck due to vertiginous symptoms which started over 24 hours ago. Will give IV Reglan. 2024: Creatinine returned at 5.32 GFR of 12. His angiogram was canceled will order noncontrast CT brain. Fluids are running. Added CPK for possible rhabdomyolysis with his heat exhaustion. 2049: After 2 L of fluids systolic pressure 110. CK returned at 825, however with acute kidney injury, will run continuous fluid at 200 cc/h. Initial troponin was 13, repeat pending. I discussed with hospitalist Dr. Meyers for admission. He did request alcohol be added. From discussion with nursing earlier patient reported took 1 drink as he was nervous of coming in. Patient admitted to PCU. Re-evaluation: stable Disposition discussed with patient/family/significant other: Patient Case discussed with consulting clinician: Hospitalist This note was generated with [employer] dictation software. It may contain incorrectwords, spelling, and punctuation that were not noted in checking the note beforesigning. Lab Data Attestation: I reviewed the patient's lab results. Labs: Laboratory Results - last 24 hr 03/03/25 03/03/25 19:25 21:13 WBC 15.2 H RBC 4.52 L Hgb 14.5 Hct 39.9 L MCV 88.3 MCH 32.1 H MCHC 36.3 H RDW Std Deviation 39.5 RDW Coeff of Rosalee 12.2 Plt Count 156 MPV 10.3 Immature Gran % (Auto) 0.300 Neut % (Auto) 67.7 Lymph % (Auto) 22.6 Archuleta % (Auto) 8.0 Eos % (Auto) 1.2 Baso % (Auto) 0.2 Absolute Neuts (auto) 10.3 H Absolute Lymphs (auto) 3.44 Nucleated RBC % 0 Sodium 130 L Potassium 3.7 Chloride 91 L Carbon Dioxide 16.4 L Anion Gap 23 H BUN 42 H Creatinine 5.32 H Estim Creat Clear Calc 17.79 L Est GFR (MDRD) Non-Af 12 L BUN/Creatinine Ratio 8.0 L Glucose 80 Calcium 9.1 Magnesium 2.0 Total Creatine Kinase 825 H Troponin T High Sens 13 Ethyl Alcohol 117.0 H Radiography Diagnostic Testing: Clinical Impression(s) from Imaging Studies Brain CT 03/03/25 20:24 IMPRESSION: No acute intracranial abnormality. Reading Location: [id number] Chest X-Ray 03/03/25 21:30 IMPRESSION: No acute chest findings. Reading Location: [place] [address] Discharge Plan Disposition Disposition: Acute Care Hospital [facility] Discharge Date/Time: 03/03/25 22:07 What to do if you have Problems For any increased pain, shortness of breath, bleeding, nausea or vomiting, chestpain, or any unexpected problems, contact your Primary Care Provider. Call [facility] ([phone]) or report to the closest Emergency Room. Call 911 if necessary. 03/03/256 <Electronically signed by Jake Sloan> Cosigner Signature (if applicable): CC: XUAN Kwon ~ Signed [facility] Work Phone: 1(221) 706-438208-13-2025 Evaluation note* Diagnosis Onset Date Resolution Status Admit Date Adverse drug reaction acute Aug ust 2024 9:48pm LUZ MARIA (acute kidney injury) acute March 03, 2025 9:48pm Diarrhea acute March 03, 2 025 9:48pm Hepatic steatosis acute March 03, 2025 9:48pm Hyponatremia acute March 03, 2025 9:48pm Leukocytosis acute March 03, 2025 9:48pm Obesity (BMI 30.0-34.9) acute A ugust 2024 9:48pm AARON (obstructive sleep apnea) acute March 03, 2025 9:48pm Rhabdomyolysis acute February 9:48pm History of non-ST elevation myocardial infarction (NSTEMI) resolved A ugust 2024 9:48pm [facility] Work Phone: 1(788) 488-727808-13-2025 Evaluation note* Diagnosis Onset Date Resolution Status Admit Date Adverse drug reaction acute Feb 9:48pm Hepatic steatosis acute March 03, 2025 9:48pm Leukocytosis acute March 03, 2025 9:48pm Obesity (BMI 30.0-34.9) acute A ugust 2024 9:48pm AARON (obstructive sleep apnea) acute March 03, 2025 9:48pm LUZ MARIA (acute kidney injury) resolved March 03, 2025 9:48pm Diarrhea resolved March 03, 2 025 9:48pm History of non-ST elevation myocardial infarction (NSTEMI) resolved A ugust 2024 9:48pm Hyponatremia inactive March 03, 2025 9:48pm Rhabdomyolysis inactive February 9:48pm Encounter for screening colonoscopy acute March 29, 2 025 8:43am Family history of malignant neoplasm of colon in father acute Mar 8:43am Heartburn acute March 29, 2025 8:43am Alcohol abuse chronic March 292024 8:43am [facility] Work Phone: 1(208) 831-931608-13-2025 Discharge summary [facility] Medical Records Department [address] [place] [address] Emergency Department Summary 03/03/25 MR#: [id number] Acct: [id number] Name: BETHANY MONTALVO Rep #:[id number] : 1965 59 From: Jake Sloan PCP: XUAN Armendariz Status:ADM I N Location: [place] [address] HPI History of Present Illness Chief Complaint: Chest Pain Informant: patient Narrative Narrative: Presents to the ED for evaluation of headache, dizziness, chest pain since yesterday after leaving work. He worked his first full day yesterday a lot of heavy labor. States he was warm he was drinking water. He had 1/2-day prior tothat. At the end of the day headache with dizziness and spinning. Int ermittentchest pain. He states he did not urinate yesterday. Today urinated once. History of coronary disease 1 stent in 2018. No diabetes history. Has history of CKD. He states last couple days has had nonbloody loose stools. No recent antibiotics. Prior similar symptoms: No PFSH PFSH Medical History Personal history of colon polyps, unspecified Family history of malignant neoplasm of colon in father Anxiety Kidney disease GERD (gastroesophageal reflux disease) GI bleed Sleep apnea Former smoker Asthma Irregular heart beat Myocardial infarct TIA (transient ischemic attack) Abdominal pain Alcohol withdrawal Acute dehydration Nausea & vomiting Dehydration Alcoholic hepatitis Thrombocytopenia LUZ MARIA (acute kidney injury) Alcohol withdrawal Carotid artery disease Chronic kidney disease History of non-ST elevation myocardial infarction (NSTEMI) Coronary artery disease COPD (chronic obstructive pulmonary disease) Lung nodule Tobacco use WILSON (dyspnea on exertion) Fatigue Chest pain Heart failure COPD exacerbation Hypoxia Community acquired pneumonia Alcohol intoxication Suicidal ideation Atherosclerosis of coronary artery of [place] heart without angina pectoris Depression NSTEMI (non-ST elevated myocardial infarction) Obesity (BMI 30.0-34.9) Hyperlipidemia Hypertension Alcohol abuse Chest pain Home Medications ?Medication ?Instructions ?Recorded ?Last Taken ?Type omeprazole 20 mg capsule,delayed 20 mg PO DAILY heart burn 06/17/14 01/12/19 10:30 History release 20 MG nitroglycerin 0.4 mg sublingual 0.4 mg sublingual Q5M PRN Chest 12/24/22 Unknown Rx tablet Pain #25 tabs cyclobenzaprine 10 mg tablet 10 mg PO DAILY PRN Pain 0 10/14/23 Unknown History folic acid 1 mg tablet 1 mg PO DAILY 10/14/23 Unkno wn History magnesium oxide 400 mg (241.3 mg 400 mg PO DAILY 10/13 Unknown History magnesium) tablet thiamine HCl (vitamin B1) 100 mg 100 mg PO DAILY 10/13 Unknown History tablet buspirone 7.5 mg tablet 7.5 mg PO TID 09/29/24 Unkno wn History carvedilol 25 mg tablet 25 mg PO BID 09/29/24 Unknow n History lisinopril 10 mg tablet 10 mg PO QDAY 09/29/24 Unkno wn History trazodone 50 mg tablet 100 mg PO QHS 09/29/24 Unkno wn History aspirin 81 mg tablet,delayed 81 mg PO DAILY heart #90 tabs 10/27/24 Unknown Rx release atorvastatin 40 mg tablet 40 mg PO QHS #90 tabs Unknown Rx cyanocobalamin (vitamin B-12) 100 100 mcg PO DAILY 05/15 Unknown History mcg tablet (Vitamin B-12) multivitamin (Daily Multi-Vitamin 1 tab PO DAILY 01/28 Unknown History tablet) Allergy/AdvReac Type Severity Reaction Status Date / Time pseudoephedrine AdvReac Mild prostate Verified 03/03/25 19:15 infections Family History Mother CAD (coronary artery disease) Father CAD (coronary artery disease) Colon cancer, Onset Age: 53 At 53yrs Brother CAD (coronary artery disease) Myocardial infarction Sister CAD (coronary artery disease) Surgical History Hx of colonoscopy History of coronary artery stent placement Stented coronary artery History of tonsillectomy Hx of eye surgery Social History household members: significant other housing: apartment current occupational status: employed current occupation: [employer] Smoking Status: Former smoker alcohol intake: current alcohol intake frequency: 3 or more drinks per day substance use type: former substance user caffeine: Yes Type: coffee Number of servings: 2 what type of physical activity do you participate in: none ROS ROS ED Constitutional Constitutional ED: Denies chills, fever(s) or sweats ENT ENT ED: Denies sore throat Cardiovascular Cardiovascular: Denies chest pain, leg edema, palpitations or racing heartbeat Respiratory/Chest Respiratory/Chest: Denies cough, dyspnea or dyspnea on exertion Gastrointestinal Gastrointestinal: Denies abdominal pain, diarrhea, nausea or vomiting Genitourinary Genitourinary ED: Reports other Details: Decreased urine output ; Denies dysuria, hematuria or urinary frequency Musculoskeletal Musculoskeletal: Denies back pain, extremity pain or neck pain Integumentary Denies rash or wounds Neurologic Neurologic: Reports headache(s) and other Details: Dizziness ; Denies paresthesias or weakness EXAM Physical Exam Const Vital Signs: 03/03/25 19:12 03/03/25 19:12 03/03/25 19:12 Temperature 98.0 F Temperature Source Temporal Pulse Rate 111 H Respiratory Rate 16 Respiratory Effort Normal Non-Labored Blood Pressure 119/66 83/60 L Blood Pressure Mean 83 67 Pulse Ox 99 Oxygen Delivery Method Room Air 03/03/25 19:26 03/03/25 20:12 03/03/25 20:48 Temperature Temperature Source Pulse Rate 100 101 H Respiratory Rate 18 25 H Respiratory Effort Blood Pressure 98/65 87/55 L 110/71 Blood Pressure Mean 76 65 84 Pulse Ox 98 97 Oxygen Delivery Method Room Air Room Air 03/03/25 21:00 03/03/25 21:11 Temperature 98.4 F Temperature Source Pulse Rate 96 96 Respiratory Rate 25 H 25 H Respiratory Effort Blood Pressure 110/68 110/68 Blood Pressure Mean 82 82 Pulse Ox 97 99 Oxygen Delivery Method Room Air Positive well nourished and well developed General Appearance ED: well developed and NAD HEENT Reports dry mucous membranes HEENT Narrative: Mild dry mucosal membranes normocephalic and atraumatic Mouth ED: Yes dry mucous membranes Mouth: dry mucous membranes Eyes General Eye ED: Yes normal appearance of both eyes Neck full ROM Chest Wall Chest: Negative for tenderness Resp normal respiratory effort and normal air movement Effort and Inspection: symmetric chest movement; Negative for respiratory distress Cardio regular rhythm and no murmurs Rate: tachycardic Peripheral Pulses: pulses 2+ throughout GI normal to inspection, nondistended, normoactive bowel sounds and non-tender Palpation: Negative for guarding or rebound tenderness present Extremity normal to inspection General Extremety ED: Negative for edema or tenderness General Extremity: Negative for edema Neuro oriented x3, CN's II-XII intact bilaterally and no sensory deficits noted Sensorium / Orientation: awake and alert Skin no rashes or lesions noted and no wounds MDM MDM MDM Narrative Medical decision making narrative: Interventions / MDM: Differential diagnosis: Acute kidney injury, dehydration, rhabdomyolysis, alcohol use Diagnosis considered but do not suspect: N/A My EKG interpretation: Sinus rate of 107, no ST or T wave changes. QTc 461. Imaging independently reviewed and interpreted by myself: CT brain: No acute process. Chest x-ray 1view: No acute process also read by radiology. External documents reviewed: Creatinine in September 2023 was 1.49. Test considered but not ordered:N/A ED course: Patient history is concerning for heat exhaustion leading to vertigo symptoms headache. Presenting blood pressure in the 70s heart rate 107. 2 L offluid was ordered. Will check labs and cardiac enzymes. EKG with no acute concerns. CT angiogram head and neck due to vertiginous symptoms which started over 24 hours ago. Will give IV Reglan. 2024: Creatinine returned at 5.32 GFR of 12. His angiogram was canceled will order noncontrast CT brain. Fluids are running. Added CPK for possible rhabdomyolysis with his heat exhaustion. 2049: After 2 L of fluids systolic pressure 110. CK returned at 825, however with acute kidney injury, will run continuous fluid at 200 cc/h. Initial troponin was 13, repeat pending. I discussed with hospitalist Dr. Meyers for admission. He did request alcohol be added. From discussion with nursing earlier patient reported took 1 drink as he was nervous of coming in. Patient admitted to PCU. Re-evaluation: stable Disposition discussed with patient/family/significant other: Patient Case discussed with consulting clinician: Hospitalist This note was generated with [employer] dictation software. It may contain incorrectwords, spelling, and punctuation that were not noted in checking the note beforesigning. Lab Data Attestation: I reviewed the patient's lab results. Labs: Laboratory Results - last 24 hr 03/03/25 03/03/25 19:25 21:13 WBC 15.2 H RBC 4.52 L Hgb 14.5 Hct 39.9 L MCV 88.3 MCH 32.1 H MCHC 36.3 H RDW Std Deviation 39.5 RDW Coeff of Rosalee 12.2 Plt Count 156 MPV 10.3 Immature Gran % (Auto) 0.300 Neut % (Auto) 67.7 Lymph % (Auto) 22.6 Archuleta % (Auto) 8.0 Eos % (Auto) 1.2 Baso % (Auto) 0.2 Absolute Neuts (auto) 10.3 H Absolute Lymphs (auto) 3.44 Nucleated RBC % 0 Sodium 130 L Potassium 3.7 Chloride 91 L Carbon Dioxide 16.4 L Anion Gap 23 H BUN 42 H Creatinine 5.32 H Estim Creat Clear Calc 17.79 L Est GFR (MDRD) Non-Af 12 L BUN/Creatinine Ratio 8.0 L Glucose 80 Calcium 9.1 Magnesium 2.0 Total Creatine Kinase 825 H Troponin T High Sens 13 Ethyl Alcohol 117.0 H Radiography Diagnostic Testing: Clinical Impression(s) from Imaging Studies Brain CT 03/03/25 20:24 IMPRESSION: No acute intracranial abnormality. Reading Location: [facility] Chest X-Ray 03/03/25 21:30 IMPRESSION: No acute chest findings. Reading Location: [place] [address] Discharge Plan Disposition Disposition: Acute Care Hospital [facility] Discharge Date/Time: 03/03/25 22:07 What to do if you have Problems For any increased pain, shortness of breath, bleeding, nausea or vomiting, chestpain, or any unexpected problems, contact your Primary Care Provider. Call [facility] ([phone]) or report tothe closest Emergency Room. Call 911 if necessary. 03/03/252322 Cosigner Signature (if applicable): CC: XUAN Kwon ~ Signed [facility]08-13-2025 Radiology Diagnostic study note [facility] Imaging Services [address] [place], [place] [address] Chest 1 View (Portable) MR#: [id number] Acct: [id number] Name: BETHANY MONTALVO Rep #: [id number] : 1965 M 59 From: Margie Ocampo MD PCP: XUAN Armendariz Status: ADM I N Study:Chest 1 View (Portable) Date of Exam: 03/03/25 Exam# [id number] Ordering Dr: Jake Mcdonough DO PROCEDURE: CHEST 1 VIEW (PORTABLE) 03/03/2025 REASON FOR EXAM: CHEST PAIN TECHNIQUE: Frontal view of the chest. COMPARISON: 01/02/2023 FINDINGS: Lordotic position. Normal heart size. Prominent fat pad. Well inflated lungs. No consolidation, effusion, or pneumothorax. RAD/Chest 1 View (Portable) IMPRESSION: No acute chest findings. Reading Location: [place] [address] CC: PARTS PULLERGeraldo Kwon; Dr. Jake Mcdonough DO ~ [employer]ar [employer] Supervisor: Signed [facility]08-13-2025 Radiology Diagnostic study note [facility] Imaging Services [address] [place], [place] [address] Brain/Head without Contrast MR#: [id number] Acct: [id number] Name: BETHANY MONTALVO Rep #: [id number] : 1965 M 59 From: Brendon Kline MD PCP: XUAN Armendariz Status: REG E R Study:Brain/Head without Contrast Date of Exa m: 03/03/25 Exam# [id number] Ordering Dr: Jake Mcdonough DO PROCEDURE: BRAIN/HEAD WITHOUT CONTRAST 03/03/2025 REASON FOR EXAM: DIZZY TECHNIQUE: BRAIN/HEAD WITHOUT CONTRAST Coronal and Sagittal reconstruction series were provided. One or more dose reduction techniques were used (e.g., Automated exposure control, adjustment of the mA and/or kV according to patient size, use of iterative reconstruction technique. RADIATION DOSE SUMMARY: CTDlvol: 44.99 mGy DLP: 846.73 mGycm COMPARISON: None. FINDINGS: No acute intracranial hemorrhage, extra-axial collection, mass effect or evidence of acute infarct. Ventricles and subarachnoid spaces are normal in size. Orbital contents are unremarkable. Intact skull base and calvarium. Well-aerated paranasal sinuses. Small amount of nonspecific dependent fluid within the right mastoid air cells. CT/Brain/Head without Contrast IMPRESSION: No acute intracranial abnormality. Reading Location: [facility] CC: XUAN Kwon; Dr. Jake Mcdonough DO ~ [employer] Supervisor: Signed [facility]07-22-2025 NoteHNO ID: [id number] Author: GARY HUTTON PA Service: ? Author Type: Physician Tyre Finisher And Examiner Type: Progress Notes Filed: 02/09/2025 14:34 Note Text: [facility] Subjective Bethany Montalvo is a 59 year [...] No recent use of Pepto-Bismol. - Taking clmt-lyo-yzbenvi cold and flu medication. - Vomiting early Saturday morning; none yesterday or today. - Denies eating anything out of the ordinary recently. - Reports dizziness. Abdominal Pain: - Describes abdomen as feeling "tossed and turned." - No appetite. - History of stomach [...] rule out serious conditions. and Recording using [employer] software for draft documentation of the visit was discussed with the patient/authorized sales representative jewelry; all questions welcomed and answered. Patient/authorized sales representative jewelry agreed to proceed Disposition The patient was other (comment) (sent to er). [facility] History of Present illness Narrative* Gary Hutton PA - 02/09/2025 2:32 PM EDT [facility] Lu Bethany Mnotalvo is a 59 year old male. Patient [...] No recent use of Pepto-Bismol. - Taking sepg-qia-kkbtdeq cold and flu medication. - Vomiting early Saturday morning; none yesterday or today. - Denies eating anything out of the ordinary recently. - Reports dizziness. Abdominal Pain: - Describes abdomen as feeling "tossed and turned." - No appetite. - History of stomach [...] out serious conditions. and Recording using ambient [employer] software for draft documentation ofthe visit was discussed with the patient/authorized sales representative jewelry; all questions welcomed and answered. Patient/authorized sales representative jewelry agreed to proceed Disposition The patient was other (comment) (sent to er). [facility] Telephone encounter Note * Telephone Encounter - Sheela Carrillo RN - 02/01/2025 2:38 PM EDT The patient has been identified by name [...] once daily as needed. Sheela Carrillo RN [facility]07-14-2025 Miscellaneous Notes* Telephone Encounter - Sheela Carrillo RN - 02/01/2025 2:38 PM EDT The patient has been identified by name [...] needed. Sheela Carrillo RN documented in this encounterOhio[facility]07-[facility]-2025 Telephone encounter Note * Telephone Encounter - Sheela Carrillo RN - 01/19/2025 4:40 PM EDT The patient has been identified by name [...] two times a day. Sheela Carrillo RN [facility]07-01-2025 Miscellaneous Notes* Telephone Encounter - Sheela Carrillo RN - 01/19/2025 4:40 PM EDT The patient has been identified by name [...] day. Sheela Carrillo RN documented in this encounterOhio[facility]06-[facility]-2025 Telephone encounter Note * Telephone Encounter - Adeline Gusman - 12/22/2024 9:24 AM EDT Prescription Refill Information The patient has been [...] Adeline Goss December 22, 2024 9:24 AM [facility]06-03-[facility] Miscellaneous Notes* Telephone Encounter - Adeline Gusman - 12/22/2024 9:24 AM EDT Prescription Refill Information The patient has been [...] 22, 2024 9:24 AM documented in this encounterOhio[facility]05-23-2025 NoteHNO ID: [id number] Author: KEREN KWON APRN.GORE STITCHER Service: ? Author Type: Nurse Practitioner Type: [...] Age of Onset Psychiatry Mother Heart Mother [place] 53 Heart Father [place] 51 Colon Cancer Father other (Heart stent) [...] loss, malaise or fe (more content not included)...[facility] Telephone encounter Note* Telephone Encounter - Adeline Gusman - 11/24/2024 9:08 AM EDT Prescription Refill Information The patient has been [...] Adeline Goss November 24, 2024 9:09 AM [facility]05-06-20[facility] Miscellaneous Notes* Telephone Encounter - Adeline Gusman - 11/24/2024 9:08 AM EDT Prescription Refill Information The patient has been [...] Adeline Goss November 24, 2024 9:09 AM documented in this encounterOhio[facility]03-19-2025 NoteHNO ID: [id number] Author: JUAREZ HERNÁNDEZ, DO Service: ? Author Type: Physician Type: Progress Notes Filed: 10/07/2024 14:09 Note Text: SERVICE DATE: October 07, 2024 PCP: Keren Kwon APRN.GORE STITCHER Subjective Patient ID: Bethany is a 58 [...] Age of Onset Psychiatry Mother Heart Mother NV 53 Heart Father NV 51 Colon Cancer Father other (Heart stent) [...] history and past medical (more content not included)...[facility]03-19-2025 History of Present illness Narrative* Juarez Hernández V, DO - 10/07/2024 2:01 PM EDT Associated Order(s): Additional Injections Post-Procedure Diagnose(s): Medial epicondylitis, right elbow Images from the original note were not included. SERVICE DATE: October 07, 2024 PCP: Keren Kwon APRN.GORE STITCHER Subjective Patient ID: Bethany is a 58 [...] major depressive disorder without psychotic features, unspecified whetherrecurrent (HCC) Essential hypertension GERD (gastroesophageal reflux disease) [...] Age of Onset Psychiatry Mother Heart Mother NV 53 Heart Father NV 51 Colon Cancer Father other (Heart stent) [...] 7-9. Whippets inmid to late teens. TO ALLERGIES Allergen Reactions [...] palpation as well as with elbow and forearmrotation. Review of x-ray from July 09, 2024 [...] these instructions. Informed Consent Consent Obtained: Verbal Seale Protocol SIGN IN TIME OUT 4 inch x 12 inch fiberglass padded splint applied with Yossi wrap. Patient instructed to keep the splint in place over the next 4 days. He may remove for cleaning. FOLLOW-UP: No follow-ups on file. SIGNATURE: Juarez Hernández DO PATIENT NAME: Bethany Montalvo DATE: October 07, 2024 TIME: 2:01 PM * Bethany Owens MA - 10/07/2024 1:20 PM EDT AMB ROOMING INTAKE FLOWSHEET DATA Pain Pain [...] home. X-ray on 07/09/2024. documented in this encounterOhio[facility]03-19-2025 NoteHNO ID: [id number] Author: BETHANY OWENS MA Service: ? Author Type: Marriage Performer Type: Progress Notes Filed: 10/07/2024 14:09 Note [...] not work outside the home. X-ray on 07/09/2024.[facility]03-14-2025 Telephone encounter Note* Telephone Encounter - Danya Hanna LPN - 10/02/2024 9:08 AM EDT The patient has been identified by name [...] Hanna LPN October 02, 2024 9:08 AM [facility]03-14-20[facility] Miscellaneous Notes* Telephone Encounter - Danya Hanna LPN - 10/02/2024 9:08 AM EDT The patient has been identified by name [...] 02, 2024 9:08 AM documented in this encounterOhiohealth [facility] Hospital03-11-2025 Telephone encounter Note * Telephone Encounter - Adeline Gusman - 09/29/2024 8:29 AM EDT Prescription Refill Information The patient has been [...] Adeline Goss September 29, 2024 8:29 AM [facility]03-11-2025 Miscellaneous Notes* Telephone Encounter - Adeline Gusman - 09/29/2024 8:29 AM EDT Prescription Refill Information The patient has been [...] 29, 2024 8:29 AM documented in this encounterOhiohealth [facility] Hospital03-10-2025 Instructions* Patient Instructions* Keren Kwon APRN.CNP - 09/28/2024 4:10 PM EDT Increase the buspar to 7.5 mg three times daily. Increase the trazodone to 100 mg at bedtime. Schedule with ortho. Keep appt with GI. Recheck in 3 months. documented in this encounterOhiohealth Berger Hospital03-10-2025 NoteHNO ID: [id number] Author: KEREN KWON APRN.CNP Service: ? Author [...] alk phos. Fatty liver. Has appt with [facility] tomorrow. Needs referral to GI faxed. [...] Age of Onset Psychiatry Mother Heart Mother NV 53 Heart Father NV 51 Colon Cancer Father other (Heart stent) [...] lesions, tenderness or abnormalities. (more content not included)...[facility]03-10-2025 History of Present illness Narrative* Keren Kwon APRN.GORE STITCHER - 09/28/2024 3:51 PM EDT This is a 58 year old male who presents today with: Patient presents with: Follow Up: 4 week BP HISTORY OF PRESENT ILLNESS: Bethany Montalvo is a 58 year old male. Patient presents with: Follow Up: 4 week BP Elevated alk phos. Fatty liver. Has appt with [facility] tomorrow. Needs referral to GI faxed. [...] major depressive disorder without psychotic features, unspecified whetherrecurrent (HCC) Essential hypertension GERD (gastroesophageal reflux disease) [...] Age of Onset Psychiatry Mother Heart Mother NV 53 Heart Father NV 51 Colon Cancer Father other (Heart stent) [...] inmid to late teens. TO EXAM: BP 122/80 [...] agrees with the plan. documented in this encounterOhiohealth [facility]03-10-2025 History of Present illness Narrative* Chris Devlin APRN.CNP, DNP - 09/28/2024 2:00 PM EDT Images from the original note were not included. [facility] PSA/PROSTATE EVALUATION HISTORY AND PHYSICAL EXAM PATIENT: Bethany Montalvo (58 year old) PCP: Keren Kwon APRN.CNP REFERRING Provider: Keren Kwon APRN.C* Consultation requested by Dr. Keren Kwon [address] [facility] [address] for an opinion regarding Elevated PSA and [...] of 10%. Prior studies include PSA of 4.82in 2024 No prior Bx or MRI of [...] again less than two hours after you finishedurinating? SCORE: 4- More than half the time [...] up to urinate from the time you wentto bed at night until the time you [...] major depressive disorder without psychotic features, unspecified whetherrecurrent (HCC) Essential hypertension GERD (gastroesophageal reflux disease) [...] Age of Onset Psychiatry Mother Heart Mother NV 53 Heart Father NV 51 Colon Cancer Father other (Heart stent) [...] 7-9. Whippets inmid to late teens. TO LABS: Latest Ref [...] with the patient or authorized sales representative jewelry. The patient or authorized sales representative jewelry has agreed to proceed with the sensitive examination. (Sensitive examination includes inspection and/or palpation of the breasts, pelvis, prostate and anorectal regions) VITALS: BP 118/80 (BP Site: Left Arm, BP Position: Sitting, BP Cuff Size: Regular Adult) Pulse 80 Temp 36.1 C (96.9 F) (Temporal) Resp 18 Ht 177.8 cm (5' 10") Wt 91.2 kg (201 lb) SpO2 94% [...] of 10%. Prior studies include PSA of 4.82in 2024 No prior Bx or MRI of prostate Discussed the implications/etiologies of elevated PSA. Discussed possible causes of elevated PSA: including BPH, recent ejaculation, normal aging, prostatitis (infection/inflammation), UTI, Urinary retention and prostate cancer. Talked about approaches which would include surveillance with PSA rechecks at regular intervals, MRI of prostate followed by biopsy, or standard TRUS Bx. After discussingthe pros and cons of each approach we [...] BH therapy. follow up with PCP Chris Devlin, DNP, GORE STITCHER [facility] * Lindsay Fonseca LPN - 09/28/2024 12:28 PM EDT Verified name and date of . CC [...] Plan: Appointment with Chris. documented in this encounterOhiohealth Berger Hospital03-10-2025 NoteHNO ID: [id number] Author: CHRIS DEVLIN APRN.MARLY VILLEDA Service: ? Author Type: Nurse Practitioner Type: Progress Notes Filed: 09/28/2024 13:06 Note Text: [facility] PSA/PROSTATE EVALUATION HISTORY AND PHYSICAL EXAM PATIENT: Bethany Montalvo (58 year old) PCP: Keren Kwon APRN.CHRISTIANA REFERRING Provider: Keren Kwon APRN.C* Consultation requested by Dr. Keren Kwon [address] [facility] [address] for an opinion regarding Elevated PSA and [...] 01/29/2019 PAST SURGICAL HISTORY (more content not included)...[facility]03-10-2025 Instructions * Patient Instructions* Chris Devlin APRN.GORE STITCHER, DNP - 09/28/2024 12:33 PM EDT Check a Free PSA blood test. No ejaculation or strenuous exercise 48 hours prior to PSA blood test.Will send MC message with result Pending PSA [...] PSA is less than 4, it is "normal" and if it is higher than 4 it is "not normal." Having said that, the [facility] uses a lower cut-off of 2.59, [...] and maintaining your health. Chris Devlin DNP, CNP Department [facility] Urology [facility] documented in this encounterOhiohealth [facility] Hospital03-10-2025 NoteHNO ID: [id number] Author: LINDSAY FONSECA LPN Service: ? Author [...] tolerated the procedure well. Plan: Appointment with Chris.[facility]03-07-2025 Telephone encounter Note* Telephone Encounter - Chris Devlin APRN.CNP, DNP - 09/25/2024 2:36 PM EST Noted. Chris Devlin APRN.CNP, DNP [facility] Work Phone: 1(681) 222-976003-07-2025 Miscellaneous Notes* Telephone Encounter - Chris Devlin APRN.CNP, DNP - 09/25/2024 2:36 PM EST Noted. Chris Devlin APRN.CNP, DNP * Telephone Encounter - Lindsay Fonseca LPN - 09/25/2024 1:02 PM EST Called patient regarding appointment on Saturday due to provider having a meeting between [phone]. Patient offered times to come into clinic and will come in at 1230 for appointment. Lindsay Fonseca LPN documented in this encounterOhiohealth [facility] Hospital03-07-2025 Telephone encounter Note * Telephone Encounter - Lindsay Fonseca LPN - 09/25/2024 1:02 PM EST Called patient regarding appointment on Saturday due to provider having a meeting between [phone]. Patient offered times to come into clinic and will come in at 1230 for appointment. Lindsay Fonseca LPN [facility]02-10-2025 Instructions* Patient Instructions* Keren Kwon APRN.CHRISTIANA - 08/31/2024 4:16 PM EST Start taking 25mg of Carvedilol Make an appointment with counseling center at [place] Follow up in 4 weeks or sooner as needed documented in this encounterOhiohealth [facility] Hospital02-10-2025 Telephone encounter Note * Telephone Encounter - Donna Richey LPN - 08/31/2024 3:35 PM EST Pt notified of results/provider instructions at today. Donna Richey LPN [facility]02-10-2025 Miscellaneous Notes* Telephone Encounter - Donna Richey LPN - 08/31/2024 3:35 PM EST Pt notified of results/provider instructions at [facility] today. Donna Richey LPN * Telephone Encounter - Donna Richey LPN - 08/28/2024 4:03 PM EST Phoned pt, no answer, unable to leave message d/t voicemail not set up yet. Donna Richey LPN * Telephone Encounter - Keren Kwon APRN.CHRISTIANA - 08/28/2024 3:30 PM EST Can please let patient know that I received his ultrasound results. It was consistent with fatty liver. However, it also is showing that his liver and spleen are enlarged. I would like to have him see gastroenterology for further evaluation of this. documented in this encounterOhiohealth [facility] Hospital02-10-2025 NoteHNO ID: [id number] Author: KEREN KWON APRN.CHRISTIANA Service: ? Author [...] with psychiatric at the counseling center at [place] Is interested and agreeable to following with a counselor again at [place]. Left knee pain has been a lot [...] Age of Onset Psychiatry Mother Heart Mother NV 53 Heart Father NV 51 Colon Cancer Father Social History Tobacco [...] other reviewed and negativ (more content not included)...[facility]02-10[facility]20[facility] History of Present illness Narrative* Keren Kwon APRN.GORE STITCHER - 08/31/2024 3:30 PM EST This is a 58 year old male who presents today with: Patient presents with: Recheck: 1 week follow up HISTORY OF PRESENT ILLNESS: Bethany Rolando Montalvo is a 58 year old male. [...] with psychiatric at the counseling center at [place] Is interested and agreeable to following with a counselor again at [place]. Left knee pain has been a lot [...] Age of Onset Psychiatry Mother Heart Mother NV 53 Heart Father NV 51 Colon Cancer Father Social History Tobacco [...] 7-9. Whippets inmid to late teens. TO REVIEW OF SYSTEMS [...] agrees with the plan. documented in this encounterOhiohealth [facility] Hospital02-07-2025 Telephone encounter Note * Telephone Encounter - Donna Richey LPN - 08/28/2024 4:03 PM EST Phoned pt, no answer, unable to leave message d/t voicemail not set up yet. Donna Richey LPN [facility]02-07-2025 Telephone encounter Note* Telephone Encounter - Keren Kwon APRN.CNP - 08/28/2024 3:30 PM EST Can please let patient know that I received his ultrasound results. It was consistent with fatty liver. However, it also is showing that his liver and spleen are enlarged. I would like to have him see gastroenterology for further evaluation of this. [facility]02-[facility] History of Present illness Narrative* Trixie Palencia RDMS - 08/27/2024 1:45 PM EST Radiology Service Progress Note PATIENT [...] PATIENT PRESENTS WITH AN IMPLANTABLE OR ATTACHED PARTS CLASSIFIER: No RADIOLOGY DEPARTMENT: Ultrasound PERIPHERAL IV DATA: Not applicable SIGNED BY: Trixie Palencia RDMS August 27, 2024 2:17 PM documented in this encounterOhiohealth Berger Hospital02-06-2025 Miscellaneous Notes* Result Encounter Note - Kathe Pierre APRN.CNP - 08/27/2024 1:45 PM EST Ultrasound of the liver shows fatty liver. Spleen and liver are slightly enlarged. Please follow diet low in saturated fat by eliminating fried foods and choosing only lean meat/skim dairy products. Also, avoid excessive use of sqik-gra-qhnucdh products that contain ibuprofen, acetaminophen, naproxen, or alcohol. documented in this encounterOhiohealth Berger Hospital02-06-2025 NoteHNO ID: [id number] Author: TRIXIE PALENCIA RDMS Service: ? Author Type: Filling And Packing Supervisor Type: Progress Notes Filed: 08/27/2024 14:17 Note [...] PATIENT PRESENTS WITH AN IMPLANTABLE OR ATTACHED PARTS CLASSIFIER: No RADIOLOGY DEPARTMENT: Ultrasound PERIPHERAL IV DATA: Not applicable SIGNED BY: Trixie Palencia RDMS August 27, 2024 2:17 [facility]02-06-2025 Progress note* Result Encounter Note - Kathe Pierre APRN.CNP - 08/27/2024 1:45 PM EST Ultrasound of the liver shows fatty liver. Spleen and liver are slightly enlarged. Please follow diet low in saturated fat by eliminating fried foods and choosing only lean meat/skim dairy products. Also, avoid excessive use of jfou-yht-xxkuvqh products that contain ibuprofen, acetaminophen, naproxen, or alcohol. [facility]02-03-[facility] Instructions* Patient Instructions* Keren Kwon APRN.CHRISTIANA - 08/24/2024 12:13 PM EST Increase the carvedilol to 12.5 mg twice daily. Restart the lisinopril 10 mg daily. Recheck in 1 week. documented in this encounterOhiohealth Berger Hospital02-03-2025 NoteHNO ID: [id number] Author: KEREN KWON APRN.CHRISTIANA Service: ? Author [...] Age of Onset Psychiatry Mother Heart Mother NV 53 Heart Father NV 51 Colon Cancer Father Social History Tobacco [...] prednisone. Reports significantly improv (more content not included)...[facility]02-03[facility] History of Present illness Narrative* Keren Kwon APRN.GORE STITCHER - 08/24/2024 11:51 AM EST This is a 58 year old male [...] Age of Onset Psychiatry Mother Heart Mother NV 53 Heart Father NV 51 Colon Cancer Father Social History Tobacco [...] inmid to late teens. TO EXAM: BP 174/100 [...] as needed for worsening/no improvement. Keren Kwon APRN.GORE STITCHER documented in this encounterOhiohealth Berger Hospital01-31-2025 Telephone encounter Note * Telephone Encounter - Donna Richey LPN - 08/21/2024 3:31 PM EST Pt notified. He verbalized understanding. Donna Richey LPN [facility]01-31-2025 Miscellaneous Notes* Telephone Encounter - Donna Richey LPN - 08/21/2024 3:31 PM EST Pt notified. He verbalized understanding. Donna Richey LPN * Telephone Encounter - Keren Kwon APRN.CHRISTIANA - 08/21/2024 3:20 PM EST I sent in another script for the prednisone. If using a lot of tylenol that could also lead to an elevation in the liver enzymes. However, we should still get the imaging. Please keep appt for Saturday so we can recheck the knee. * Telephone Encounter - Donna Richey LPN - 08/19/2024 4:36 PM EST MC message sent. Donna Richey LPN * Telephone Encounter - Donna Rcihey LPN - 08/14/2024 4:52 PM EST TC to pt, no answer, unable to leave message. * Telephone Encounter - Keren Kwon APRN.CHRISTIANA - 08/14/2024 4:39 PM EST Can please let patient know that I received the additional lab results and xray results. His alk phos elevation is coming from his liver. I would like to have him get a liver ultrasound toview his liver. His knee xray is also back. They did see an area that could represent an area that is a healing fracture. How is the knee feeling since on the prednisone? * Telephone Encounter - Donna Richey LPN - 08/12/2024 1:46 PM EST Pt notified of results/provider response. He verbalized understanding. Please assist pt with scheduling Urology appt. Donna Richey LPN * Telephone Encounter - Keren Kwon APRN.CNP - 08/12/2024 12:53 PM EST Can please let patient know that I received most of his labs back. His uric acid level is elevated, so it does make it suspicious that he is having a flare of gout. The prednisone should help with this. His PSA continues to be elevated. We do need to send him to urology to have this further evaluated.The referral is placed, please help schedule. I'm still waiting on one of the lab tests and the xray results. Keren Kwon APRN.CHRISTIANA documented in this encounterOhiohealth [facility] Hospital01-31-2025 Telephone encounter Note * Telephone Encounter - Keren Kwon APRN.CNP - 08/21/2024 3:20 PM EST I sent in another script for the prednisone. If using a lot of tylenol that could also lead to an elevation in the liver enzymes. However, we should still get the imaging. Please keep appt for Saturday so we can recheck the knee. [facility]01-30-[facility] Telephone encounter Note* Telephone Encounter - Richelle Soni RN - 08/20/2024 7:24 PM EST Called and scheduled pt for Thursday 08/24 at 1120 am with Keren Kwon. Pt states he was done with his "bubble pack" of Prednisone at least 3 days ago. [...] completed them at least 3 days ago. [facility]01-30-[facility] Miscellaneous Notes* Telephone Encounter - Richelle Soni RN - 08/20/2024 7:24 PM EST Called and scheduled pt for Thursday 08/24 at 1120 am with Keren Kwon. Pt states he was done with his "bubble pack" of Prednisone at least 3 days ago. [...] completed them at least 3 days ago. * Telephone Encounter - Jaret Love LPN - 08/20/2024 10:46 AM EST Attempted to reach pt by phone and no voicemail set up. Try later. Jaret Love LPN * Telephone Encounter - Keren Kwon APRN.CNP - 08/19/2024 6:18 PM EST There should be a couple days left of the medication. If the symptoms are returning, we should havehim back in because we are likely going to need to move forward with getting an MRI. Keren Kwon APRN.CHRISTIANA * Telephone Encounter - Donna Richey LPN - 08/19/2024 1:14 PM EST Prescription Refill Information The patient has been [...] 19, 2024 1:14 PM documented in this encounterOhiohealth [facility] Hospital01-30-2025 Telephone encounter Note * Telephone Encounter - Jaret Love LPN - 08/20/2024 10:46 AM EST Attempted to reach pt by phone and no voicemail set up. Try later. Jaret Love LPN [facility]01-29-2025 Telephone encounter Note* Telephone Encounter - Keren Kwon APRN.CNP - 08/19/2024 6:18 PM EST There should be a couple days left of the medication. If the symptoms are returning, we should havehim back in because we are likely going to need to move forward with getting an MRI. Keren Kwon APRN.CHRISTIANA [facility]01-29-2025 Telephone encounter Note* Telephone Encounter - Donna Richey LPN - 08/19/2024 4:36 PM EST MC message sent. Donna Richey LPN [facility]01-29-20[facility] Telephone encounter Note* Telephone Encounter - Donna Richey LPN - 08/19/2024 1:14 PM EST Prescription Refill Information The patient has been [...] Richey LPN August 19, 2024 1:14 PM [facility]01-24-2025 Telephone encounter Note* Telephone Encounter - Donna Richey LPN - 08/14/2024 4:52 PM EST TC to pt, no answer, unable to leave message. [facility]01-24-2025 Telephone encounter Note* Telephone Encounter - Keren Kwon APRN.GORE STITCHER - 08/14/2024 4:39 PM EST Can please let patient know that I received the additional lab results and xray results. His alk phos elevation is coming from his liver. I would like to have him get a liver ultrasound toview his liver. His knee xray is also back. They did see an area that could represent an area that is a healing fracture. How is the knee feeling since on the prednisone? [facility]01-22-2025 Telephone encounter Note* Telephone Encounter - Donna Richey LPN - 08/12/2024 1:46 PM EST Pt notified of results/provider response. He verbalized understanding. Please assist pt with scheduling Urology appt. Donna Richey LPN [facility]01-22-2025 Telephone encounter Note* Telephone Encounter - Keren Kwon APRN.CNP - 08/12/2024 12:53 PM EST Can please let patient know that I received most of his labs back. His uric acid level is elevated, so it does make it suspicious that he is having a flare of gout. The prednisone should help with this. His PSA continues to be elevated. We do need to send him to urology to have this further evaluated.The referral is placed, please help schedule. I'm still waiting on one of the lab tests and the xray results. Keren Kwon APRN.GORE STITCHER [facility]01-21-2025 History of Present illness Narrative* Wendy Robles RT(R) - 08/11/2024 2:20 PM EST Radiology Service Progress Note PATIENT [...] PATIENT PRESENTS WITH AN IMPLANTABLE OR ATTACHED PARTS CLASSIFIER: No RADIOLOGY DEPARTMENT: General X-ray: Exam(s) Completed: Lower Extremity X- Ray(s): Knee, AP / Lat / Tunne / Merchant Left PERIPHERAL IV DATA: Not applicable SIGNED BY: RT Satnam(R) August 11, 2024 2:10 PM documented in this encounterOhiohealth Berger Hospital01-21-2025 NoteHNO ID: [id number] Author: WENDY ROBLES RT(R) Service: ? Author Type: Filling And Packing Supervisor Type: Progress Notes Filed: 08/11/2024 14:34 Note [...] PATIENT PRESENTS WITH AN IMPLANTABLE OR ATTACHED PARTS CLASSIFIER: No RADIOLOGY DEPARTMENT: General X-ray: Exam(s) Completed: Lower Extremity X-Ray(s): Knee, AP / Lat / Tunne / Merchant Left PERIPHERAL IV DATA: Not applicable SIGNED BY: RT Satnam(R) August 11, 2024 2:10 [facility]01-21-2025 Instructions* Patient Instructions* Keren Kwon APRN.CNP - 08/11/2024 1:31 PM EST Get the xray. Get the labs. Start the prednisone. The prednisone taper will be 4 tablets for 3 days; 3 tablets for 3 days; 2 tablets for 3 days; then1 tablet for 3 days. Please do no use other anti-inflammatories (like ibuprofen, aleve, naproxen, etc) while you are on this medication. documented in this encounterOhiohealth [facility] Hospital01-21-2025 NoteHNO ID: [id number] Author: KEREN KWON APRN.CNP Service: ? Author [...] of obvious fracture or dislocations. Refers that "severe" leg pain. Cannot get the leg comfortable. [...] Age of Onset Psychiatry Mother Heart Mother NV 53 Heart Father NV 51 Colon Cancer Father Social History Tobacco [...] spray paint and glue briefly, ages 7-9. Me[place] in mid to late teens. TO EXAM: [...] and patient guarding (more content not included)... [facility]01-21[facility] History of Present illness Narrative* Keren Kwon APRN.[facility] - 08/11/2024 1:09 PM EST This is a 58 year old male [...] of obvious fracture or dislocations. Refers that "severe" leg pain. Cannot get the leg comfortable. [...] Age of Onset Psychiatry Mother Heart Mother NV 53 Heart Father NV 51 Colon Cancer Father Social History Tobacco [...] inmid to late teens. TO EXAM: BP 162/86 [...] improvement. Keren Kwon APRN.CHRISTIANA documented in this encounterOhiohealth [facility] Hospital01-17-2025 Telephone encounter Note * Telephone Encounter - Donna Richey LPN - 08/07/2024 4:04 PM EST Pt notified. He verbalized understanding. Donna Richey LPN [facility]01-17-2025 Miscellaneous Notes* Telephone Encounter - Donna Richey LPN - 08/07/2024 4:04 PM EST Pt notified. He verbalized understanding. Donna Richey LPN * Telephone Encounter - Keren Kwon APRN.CHRISTIANA - 08/07/2024 3:22 PM EST Can please let patient know that I [...] and fried foods). Trade saturated fat found inmeats for healthier fat found in plants. 5. Limit alcohol. Orders are in. documented in this encounterOhiohealth [facility] Hospital01-17-2025 Telephone encounter Note * Telephone Encounter - Keren Kwon APRN.CNP - 08/07/2024 3:22 PM EST Can please let patient know that I [...] and fried foods). Trade saturated fat found inmeats for healthier fat found in plants. 5. Limit alcohol. Orders are in. [facility]12-31-2024 Telephone encounter Note* Telephone Encounter - Kathe Pierre APRN.CNP - 07/21/2024 3:17 PM EST The following approved medication requests have been transmitted electronically. Requested Prescriptions Pending Prescriptions Disp Refills busPIRone (BUSPAR) 5 mg tablet 90 tablet 1 Sig: Take 1 tablet by mouth three times a day as needed. Kathe Pierre APRN.CNP [facility]12-31-2024 Miscellaneous Notes* Telephone Encounter - Kathe Pierre APRN.CNP - 07/21/2024 3:17 PM EST The following approved medication requests have been transmitted electronically. Requested Prescriptions Pending Prescriptions Disp Refills busPIRone (BUSPAR) 5 mg tablet 90 tablet 1 Sig: Take 1 tablet by mouth three times a day as needed. Kathe Pierre APRN.CNP * Telephone Encounter - Kathe Guillen LPN - 07/21/2024 10:40 AM EST Change of pharmacy * Telephone Encounter - Melyssa Ruiz - 07/21/2024 10:18 AM EST Patient has been identified by name and [...] Thank you. Melyssa Ruiz. documented in this encounterOhio[facility] Hospital12-31-2024 Telephone encounter Note * Telephone Encounter - Kathe Guillen LPN - 07/21/2024 10:40 AM EST Change of pharmacy [facility]12-31-2024 Telephone encounter Note* Telephone Encounter - Melyssa Ruiz - 07/21/2024 10:18 AM EST Patient has been identified by name and [...] found Please advise. Thank you. Melyssa Ruiz. [facility]12-23-2024 History of Present illness Narrative* Bulmaro Pappas RT(Herman) - 07/13/2024 2:00 PM EST Radiology Service Progress Note PATIENT [...] PATIENT PRESENTS WITH AN IMPLANTABLE OR ATTACHED PARTS CLASSIFIER: No RADIOLOGY DEPARTMENT: General X-ray: Exam(s) Completed: Chest X-Ray PERIPHERAL IV DATA: Not applicable SIGNED BY: RT Thu(Herman) July 13, 2024 2:00 PM documented in this encounterOhiohealth Berger Hospital12-23-2024 NoteHNO ID: [id number] Author: BULMARO PAPPAS RT(R) Service: Radiology Author Type: Technologist Type: Progress [...] PATIENT PRESENTS WITH AN IMPLANTABLE OR ATTACHED PARTS CLASSIFIER: No RADIOLOGY DEPARTMENT: General X-ray: Exam(s) Completed: Chest X-Ray PERIPHERAL IV DATA: Not applicable SIGNED BY: RT Thu(R) July 13, 2024 2:00 [facility]12-23-2024 NoteHNO ID: [id number] Author: ROSA WADE APRN.GORE STITCHER Service: ? Author Type: Nurse Practitioner Type: Progress Notes Filed: 07/13/2024 14:36 Note Text: This note was created using [employer]. Subjective Bethany Montalvo is a 58 year [...] seem more viral in origin and recommended eypx-iuo-fptabty cough and cold medication and follow-up with PCP. - XR CHEST 2V FRONTAL/LAT - COVID AND INFLUENZA A/B AND RSV PCR, ROUTINE Rosa Wade APRN.[facility] History of Present illness Narrative* Rosa Wade APRN.CHRISTIANA - 07/13/2024 1:43 PM EST This note was created using [employer]. Subjective Bethany Montalvo is a 58 year [...] seem more viral in origin and recommended zjvc-zqt-eirwyqj cough and cold medication and follow-up with PCP. - XR CHEST 2V FRONTAL/LAT - COVID & INFLUENZA A/B & RSV PCR, ROUTINE Rosa Wade APRN.CHRISTIANA documented in this encounterOhiohealth Berger Hospital12-23-2024 NoteHNO ID: [id number] Author: ?, ?, ? Service: ? Author Type: ? Type: Progress Notes Filed: 07/13/2024 13:34 Note Text: POPULATION HEALTH NAVIGATION OUTREACH Action/[facility] Support: Called pt to schedule an [...] Signature: Chico Gonzalez July 13, 2024 1:34 [facility]12-23-2024 History of Present illness Narrative* Chico Gonzalez - 07/13/2024 1:34 PM EST POPULATION HEALTH NAVIGATION OUTREACH Action/[facility] Support: Called pt to schedule an [...] name and : No Navigation Signature: Chico Gonzaelz July 13, 2024 1:34 PM documented in this encounterOhiohealth Berger Hospital12-23-2024 NotePatient Outreach (NETNAV) BETHANY MONTALVO ([id number]) 1965 M Date Time Provider Department 07/13/24 NO PCP NETNAV During your visit today, we recorded the following information about you: Chico Gonzalez 07/13/2024 1:34 PM Signed POPULATION HEALTH NAVIGATION OUTREACH Action/[facility] [place] Support: Called pt to schedule an appt [...] Date Reviewed: 07/09/2024 Reviewed by: Desmond Duncan APRN.GORE STITCHER - Fully Assessed Prescriptions as of 07/13/2024 [...] [K21.9] 11/05/2022 Encounter Status:Closed by CHICO GONZALEZ on 07/13/24[facility] Telephone encounter Note* Telephone Encounter - Ariela Avelar MA - 07/12/2024 3:04 PM EST Pt was notified of the results. Pt verbalized understanding. Ariela Avelar MA [facility]12-22-2024 Miscellaneous Notes* Telephone Encounter - Ariela Avelar MA - 07/12/2024 3:04 PM EST Pt was notified of the results. Pt verbalized understanding. Ariela Avelar MA * Telephone Encounter - Sera Claire LPN - 07/10/2024 7:21 PM EST Unable to reach pt on 2nd attempt due to no VM being set up. Sera Claire LPN * Telephone Encounter - Yoanna Mccormack OCCA - 07/09/2024 6:25 PM EST TC no answer. Unable to leave VM d/t mailbox not set up. Please try again later. ERIC Capone * Telephone Encounter - Desmond Duncan APRN.GORE STITCHER - 07/09/2024 6:03 PM EST Please inform patient that x-ray is normal. Follow-up with orthopedics if symptoms persist. Desmond Duncan APRN.GORE STITCHER documented in this encounterOhiohealth Berger Hospital12-20-2024 Telephone encounter Note * Telephone Encounter - Sera Claire LPN - 07/10/2024 7:21 PM EST Unable to reach pt on 2nd attempt due to no VM being set up. Sera Claire LPN [facility]12-20-2024 Telephone encounter Note* Telephone Encounter - Estrella Wright - 07/10/2024 11:52 AM EST Pharmacy just filled last script. This would be for future[facility]12-20-2024 Miscellaneous Notes* Telephone Encounter - Estrella Wright - 07/10/2024 11:52 AM EST Pharmacy just filled last script. This would be for future[facility] * Telephone Encounter - Estrella Wright - 07/10/2024 11:51 AM EST Prescription Refill Information The patient has been [...] 10, 2024 11:52 AM documented in this encounterOhiohealth Berger Hospital12-20-2024 Telephone encounter Note * Telephone Encounter - Estrella Wright - 07/10/2024 11:51 AM EST Prescription Refill Information The patient has been [...] three times a day as needed. Estrella Ag [facility] July 10, 2024 11:52 AM [facility]12-19-2024 Telephone encounter Note* Telephone Encounter - Yoanna Mccormack OCCA - 07/09/2024 6:25 PM EST TC no answer. Unable to leave VM d/t mailbox not set up. Please try again later. ERIC Capone [facility]12-19-2024 Telephone encounter Note* Telephone Encounter - Desmond Duncan APRN.CNP - 07/09/2024 6:03 PM EST Please inform patient that x-ray is normal. Follow-up with orthopedics if symptoms persist. Desmond Duncan APRN.GORE STITCHER [facility]12-19-2024 History of Present illness Narrative* Wendy Robles RT(R) - 07/09/2024 5:20 PM EST Radiology Service Progress Note PATIENT [...] PATIENT PRESENTS WITH AN IMPLANTABLE OR ATTACHED PARTS CLASSIFIER: No RADIOLOGY DEPARTMENT: General X-ray: Exam(s) Completed: Upper Extremity X- Ray(s): Elbow, right PERIPHERAL IV DATA: Not applicable SIGNED BY: RT Satnam(R) July 09, 2024 5:07 PM documented in this encounterOhiohealth Berger Hospital12-19-2024 NoteHNO ID: [id number] Author: WENDY ROBLES RT(Herman) Service: ? Author Type: Filling And Packing Supervisor Type: Progress Notes Filed: 07/09/2024 17:16 Note [...] PATIENT PRESENTS WITH AN IMPLANTABLE OR ATTACHED PARTS CLASSIFIER: No RADIOLOGY DEPARTMENT: General X-ray: Exam(s) Completed: Upper Extremity X-Ray(s): Elbow, right PERIPHERAL IV DATA: Not applicable SIGNED BY: Wendy Robles, RT(R) July 09, 2024 5:07 [facility]12-19-2024 NoteHNO ID: [id number] Author: DESMOND DUNCAN APRN.GORE STITCHER Service: ? Author Type: Nurse Practitioner Type: Progress Notes Filed: 07/09/2024 18:04 Note Text: Subjective HPI Nontoxic-appearing male presents urgent care chief complaint sore throat body aches chills headache cough. Duration of symptoms few days. Associated symptoms listed above. Additionally has had right elbow injury for about 1 week. States he struck his elbow on a rail at work. Presents today for evaluation. Nnzcp-ornm-caxhxsbh. Denies any other injuries. OTC medications none [...] Age of Onset Psychiatry Mother Heart Mother NV 53 Heart Father NV 51 Colon Cancer Father Social History Tobacco [...] spray paint and glue briefly, ages 7-9. [facility] mid to late teens. TO BP [...] Pulmonary: Effort: Pulmonary effort (more content not included)...[facility]12-[facility] History of Present illness Narrative* Desmond Duncan APRN.[facility] - 07/09/2024 5:04 PM EST Subjective HPI Nontoxic-appearing male presents urgent care chief complaint sore throat body aches chills headachecough. Duration of symptoms few days. Associated symptoms listed above. Additionally has had right elbow injury for about 1 week. States he struck his elbow on a rail at work. Presents today for evaluation. Pxkkh-jeqr-poikcdhw. Denies any other injuries. OTC medications none [...] Age of Onset Psychiatry Mother Heart Mother NV 53 Heart Father NV 51 Colon Cancer Father Social History Tobacco [...] 7-9. Whippets inmid to late teens. TO BP 128/78 (BP [...] of care. This note was generated using [employer] software. It may contain errors in wording, punctuation, or spelling. Desmond Duncan APRN.CHRISTIANA documented in this encounterOhiohealth Berger Hospital12-03-2024 Telephone encounter Note * Telephone Encounter - Jaret Paulino MA - 06/23/2024 4:48 PM EST Faxed as requested. Jaret Paulino MA [facility]12-03-2024 Miscellaneous Notes* Telephone Encounter - Jaret Paulino MA - 06/23/2024 4:48 PM EST Faxed as requested. Jaret Paulino MA * Telephone Encounter - Alma Delia Garza APRN.CNP - 06/22/2024 4:29 PM EST Please fax GI consult to Dr. Lovell at [facility]. Thank you, Alma Delia Garza APRN.CNP documented in this encounterOhiohealth Berger Hospital12-02-2024 Telephone encounter Note * Telephone Encounter - Alma Delia Garza APRN.GORE STITCHER - 06/22/2024 4:29 PM EST Please fax GI consult to Dr. Lovell at [facility]. Thank you, Alma Delia Garza APRN.GORE STITCHER [facility] Work Phone: 1(474) 628-314412-02-2024 Nurse Note* Leanna Wilburn, YONI - 06/22/2024 4:02 PM EST REVIEW OF SYSTEMS: General: The patient NOTES fatigue, denies weight loss, NOTES weight gain, denies feeling hot, and denies feelings of cold. Eyes: The patient denies glaucoma, NOTES eye injury/surgery, does wear glasses or contacts. Ear/Nose/Throat: The patient NOTES allergies, denies hayfever, denies ear infections, and denies bloody noses. Cardiovascular: The patient denies chest pain, NOTES heart disease, NOTES high blood pressure,NOTEScardiac stent, NOTES prior heart attack, denies irregular heart beat, NOTES high cholesterol, NOTESpoor circulation, denies heart failure, other cardiac issues, denies claudication, NOTES cold feet,denies peripheral arterial stent. Respiratory: The patient denies [...] back pain/injury, denies back problems, denies sciatica, deniesknee/foot trouble, denies arthritis, or denies gout. When was patient's last Mammogram screening? N/A Last Colonoscopy: 01/12/2019 Leanna Wilburn RN [facility]12-02-2024 Nurse Note* Leanna Wilburn RN - 06/22/2024 4:02 PM EST REVIEW OF SYSTEMS: General: The patient NOTES fatigue, denies weight loss, NOTES weight gain, denies feeling hot, and denies feelings of cold. Eyes: The patient denies glaucoma, NOTES eye injury/surgery, does wear glasses or contacts. Ear/Nose/Throat: The patient NOTES allergies, denies hayfever, denies ear infections, and denies bloody noses. Cardiovascular: The patient denies chest pain, NOTES heart disease, NOTES high blood pressure,NOTEScardiac stent, NOTES prior heart attack, denies irregular heart beat, NOTES high cholesterol, NOTESpoor circulation, denies heart failure, other cardiac issues, denies claudication, NOTES cold feet,denies peripheral arterial stent. Respiratory: The patient denies [...] back pain/injury, denies back problems, denies sciatica, deniesknee/foot trouble, denies arthritis, or denies gout. When was patient's last Mammogram screening? N/A Last Colonoscopy: 01/12/2019 Leanna Wilburn RN documented in this encounterOhiohealth Berger Hospital12-02-2024 History of Present illness Narrative* Alma Delia Garza APRN.GORE STITCHER - 06/22/2024 4:00 PM EST HISTORY AND PHYSICAL Bethany Montalvo : 1965 REFERRING PHYSICIAN: Keren Prescott [facility] [address] CHIEF COMPLAINT: Patient presents with: Consult: colonoscopy [...] his partner was discharged early from rehab maurice ankle fx and he is her primary [...] testing for H. Pylori. Biopsies from the gastro- esophageal junction showed mild chronic inflammation, negative for intestinal goblet cells, negative for dysplasia. Terminal ileum biopsy showedsmall bowel mucosa with mild chronic nonspecific inflammation in the lamina propria. Random colonicbiopsies showed mild chronic nonspecific inflammation in the [...] Age of Onset Psychiatry Mother Heart Mother NV 53 Heart Father NV 51 Colon Cancer Father Social History Tobacco [...] 7-9. Whippets inmid to late teens. TO REVIEW OF SYMPTOMS: The review of systems data was entered by the nurse and reviewed by ct Nursing Notes: Leanna Wilburn RN 06/22/2024 4:06 [...] pain, NOTES heart disease, NOTES high blood pressure,NOTEScardiac stent, NOTES prior heart attack, denies irregular heart beat, NOTES high cholesterol, NOTESpoor circulation, denies heart failure, other cardiac issues, denies claudication, NOTES cold feet,denies peripheral arterial stent. Respiratory: The patient denies [...] back pain/injury, denies back problems, denies sciatica, deniesknee/foot trouble, denies arthritis, or denies gout. When was patient's last Mammogram screening? N/A Last Colonoscopy: 01/12/2019 Leanna Wilburn RN PHYSICAL EXAMINATION: General: The patient is 58 year old, male well nourished, well hydrated in no acute distress. The patient is oriented to time, place, and person. VITALS: Blood pressure 142/92, pulse 107, temperature 37.2 C (98.9 F), height 180.3 cm (5' 11"), weight 98.2 kg (216 lb 8 oz), SpO2 94%. Body mass index is 30.2 kg/m . HEENT: Normal cephalic, ataumatic, pupils are equally round, sclera are anicteric, mucous membranesare moist, oropharynx is clear. Neck has no [...] Will plan for lower endoscopy. We discussed therisks and benefits of the planned endoscopy. I [...] wishes. I have explained that with IV conscioussedation there is no anesthesia provider available and [...] chooses MAC anesthesia. We discussed traveling to [place] for this. He states he wants to stay local. I discussed the risk of under sedation in the ASC d/t his alcohol use and he declined stating he wants to be completely out. I will fax a referral to [facility], if it doesn't work out then we will plan for [facility] in [place].He is agreeable. Bethany was counseled that if there are changes in his/her medical condition, to let the office knowif surgery should proceed. If there are changes [...] and updated as necessary. Alma Delia Garza APRN.CNP documented in this encounterOhiohealth [facility] Hospital12-02-2024 NoteHNO ID: [id number] Author: ALMA DELIA GARZA APRN.CNP Service: ? Author Type: Nurse Practitioner Type: Progress Notes Filed: 06/22/2024 16:31 Note Text: HISTORY AND PHYSICAL Bethany Montalvo : 1965 REFERRING PHYSICIAN: Keren Kwon [address] [facility] [address] CHIEF COMPLAINT: Patient presents with: Consult: colonoscopy [...] Age of Onset Psychiatry Mother Heart Mother NV 53 Heart Father NV 51 Colon Cancer Father Social History Tobacco Use Smoking status: Former Current packs/day: 0.00 Average packs/day: 0.5 packs/day for 30.4 years (15.2 ttl pk-yrs) Types: Cigarettes Start date: 12/30/1983 Quit date: 05/30/2014 Years since quittin (more content not included)...[facility] 06-12-2024 Instructions* Patient Instructions* Keren Kwon APRN.GORE STITCHER - 06/12/2024 3:29 PM EST Get labs. Schedule w/ gen surgery. Schedule carotid ultrasound. Recheck in 6 months. documented in this encounterOhiohealth Berger Hospital11-22-2024 NoteHNO ID: [id number] Author: KEREN KWON APRN.GORE STITCHER Service: ? Author Type: Nurse Practitioner Type: [...] CAD: Denies any chest pain/SOB. Following with [employer]. Last appt in September. GERD: Stable on [...] Age of Onset Psychiatry Mother Heart Mother NV 53 Heart Father NV 51 Colon Cancer Father Social History Tobacco [...] AGE 6MO-64YR, TRIVALENT (more content not included)... [facility] History of Present illness Narrative* Keren Kwon, GERARDO.GORE STITCHER - 06/12/2024 3:04 PM EST This is a 58 year old male [...] CAD: Denies any chest pain/SOB. Following with [facility]. Last appt in September. GERD: [...] Age of Onset Psychiatry Mother Heart Mother NV 53 Heart Father NV 51 Colon Cancer Father Social History Tobacco [...] inmid to late teens. TO EXAM: BP 130/92 [...] as needed for worsening/no improvement. Keren Kwon APRN.GORE STITCHER documented in this encounterOhiohealth Berger Hospital10-25-2023 Progress note Author Shakeel Valera [facility] May 15, 2023 11:24am Note Date/Time May 15, 2023 1 1:24am [facility] Medical Records Department [address] [place] [address] Progress Note - Hospitalist 05/15/23 1120 MR#: [id number] Acct: [id number] Name: BETHANY MONTALVO Rep #:[id number] : 1965 57 From: Shakeel rendon MD PCP: Keren Kwon [employer] PULLERLubnaC Status:ADM I N Location: [place] [address] Subjective Subjective CIWA score of 2 this [...] (MDRD) Non-Af 74, BUN/Creatinine Ratio 7.3 L, Pcwdclb92, Calcium 7.7 L, Total Bilirubin 1.60 H, [...] ? We will have him follow-up with [facility] for discharge planning ? Continue with his home mental health 2. CAD status post stent/HTN/HLD ? Blood pressures are stable ? Can resume his home blood pressure medications ? Can likely resume his lisinopril if necessary ? We will monitor and make adjustments as necessary 3. GERD ? Stable ? Continue with PPI DVT: Ambulation Charges/Coding Visit Charges Inpatient E&M: 53748 Subs Hosp L2 05/15/23 1124 <Electronically signed by Shakeel Valera MD> Cosigner Signature (if applicable): CC: ~ Signed [facility] Work Phone: 1(400) 327-238810-24-2023 Progress note Author Shakeel Valera [facility] May 14, 2023 10:17am Note Date/Time May 14, 2023 1 0:17am [facility] Medical Records Department [address] [place] [address] Progress Note - Hospitalist 05/14/23 1009 MR#: [id number] Acct: [id number] Name: BETHANY MONTALVO Rep #:[id number] : 1965 57 From: Shakeel rendon MD PCP: WILLIAM ArmendarizC Status:ADM I N Location: [place] [address] Subjective Subjective Resting comfortably, no issues overnight. [...] 72.9 H, Lymph % (Auto) 18.4 L, Archuleta % (Auto) 7.6, Eos % (Auto) 0.3, [...] Clarity Clear, Urine pH 5.0, Ur Specific Weston 1.020, Urine Protein 100 H, Urine Glucose [...] % (Auto) 55.9, Lymph % (Auto) 34.1, Archuleta % (Auto) 7.6, Eos % (Auto) 1.8, [...] DVT: Ambulation Charges/Coding Visit Charges Inpatient E&M: 88658 Subs Hosp L2 05/14/23 1017 <Electronically signed by Shakeel Valera MD> Cosigner Signature (if applicable): CC: ~ Signed [facility] Work Phone: 1(670) 215-680410-23-2023 History and physical note Author Lorena Bennett [facility] May 13, 2023 8:28pm Note Date/Time May 13, 2023 4 :17pm [facility] Medical Records Department [address] [place] [address] H&P Exam - Hospitalist 05/13/23 1615 MR#: [id number] Acct: [id number] Name: BETHANY MONTALVO Rep #:[id number] : 1965 57 From: Lorena Bennett DO PCP: XUAN Armendariz Status:ADM I N Location: [facility] [id number] HPI - General General Date of Admission: 05/13/23 Date of Service: 05/13/23 Chief Complaint: Acute alcohol withdrawal/nausea vomiting HPI Narrative BETHANY MONTALVO, is a 57 M who presented to the emergency department at [facility] on 05/13/2023 with about 3 to 4 [...] a temperature of 96.8, heart rate was [id number] however with IV fluids he has trended [...] of liver and a small gallbladder polyp. [facility] Medical History Alcohol abuse Alcohol intoxication Anxiety Asthma Atherosclerosis of coronary artery of [place] heart without angina pectoris Chest pain Chest [...] 72.9 H, Lymph % (Auto) 18.4 L, Archuleta % (Auto) 7.6, Eos % (Auto) 0.3, [...] Clarity Clear, Urine pH 5.0, Ur Specific Weston 1.020, Urine Protein 100 H, Urine Glucose [...] Full code Charges/Coding Visit Charges Inpatient E&M: 66542 Init Hosp L2 05/13/232027 <Electronically signed by Lorena Bennett DO> Cosigner Signature (if applicable): CC: XUAN Kwon; Dr. Lorena Bennett DO~ Signed [facility] Work Phone: [phone]) 904-693710-23-2023 Discharge summary Author Maggy Tucker [facility] May 13, 2023 5:15pm Note Date/Time May 13, 2023 1 1:19am [facility] Medical Records Department [address] [place] [address] Emergency Department Summary 05/13/23 MR#: [id number] Acct: [id number] Name: BETHANY MONTALVO Rep #:[id number] : 1965 57 From: Jaun GOVEA PCP: XUAN Armendariz Status:ADM I N Location: [place] [address] HPI <XUAN Nicole - Last Filed: 05/13/23 [...] muscle cramps and is here for evaluation. PFSH <XUAN Nicole - Last Filed: 05/13/23 16:30> PFS Medical History Alcohol abuse Alcohol intoxication Atherosclerosis of coronary artery of [place] heart without angina pectoris Chest pain Chest [...] <XUAN Nicole - Last Filed: 05/13/23 16:30> [facility] Lab Data Labs: Laboratory Results - last 24 hr 05/13/23 05/13/23 05/13/23 11:35 13:00 15:50 WBC 6.4 RBC 4.93 Hgb 16.1 Hct 47.8 MCV 97.0 H MCH 32.7 H MCHC 33.7 RDW Std Deviation 44.6 H RDW Coeff of Rosalee 12.4 Plt Count 111 L MPV 9.9 Immature Gran % (Auto) 0.300 Neut % (Auto) 72.9 H Lymph % (Auto) 18.4 L Archuleta % (Auto) 7.6 Eos % (Auto) 0.3 [...] Clarity Clear Urine pH 5.0 Ur Specific Weston 1.020 Urine Protein 100 H Urine Glucose [...] Tucker, DO - Last Filed: 05/13/23 17:15> [facility] Lab Data Labs: Laboratory Results - last 24 hr 05/13/23 05/13/23 05/13/23 11:35 13:00 15:50 WBC 6.4 RBC 4.93 Hgb 16.1 Hct 47.8 MCV 97.0 H MCH 32.7 H MCHC 33.7 RDW Std Deviation 44.6 H RDW Coeff of Rosalee 12.4 Plt Count 111 L MPV 9.9 Immature Gran % (Auto) 0.300 Neut % (Auto) 72.9 H Lymph % (Auto) 18.4 L Archuleta % (Auto) 7.6 Eos % (Auto) 0.3 [...] Clarity Clear Urine pH 5.0 Ur Specific Weston 1.020 Urine Protein 100 H Urine Glucose [...] problems, contact your Primary Care Provider. Call [facility] ([phone]) or report to the closest Emergency Room. Call 911 if necessary. 05/13/23 1630 <Electronically signed by Jaun GOVEA> Cosigner Signature (if applicable): 05/13/23 1715 <Electronically signed by Maggy Tucker DO> CC: XUAN Kwon ~ Signed [facility] Work Phone: [phone]) 308-982609-19-2023 Miscellaneous Notes* Telephone Encounter - India Coleman [...] primary care provideror schedule a visit with [facility]." India Coleman RN documented in this encounterOhiohealth Berger [facility] History of Present illness Narrative* Henry [...] being recorded and sent to cardiology. Henry Mororw MD documented in this encounterOhiohealth Berger Hospital09-12-2023 Procedure [facility]07-03[facility] Instructions* Patient Instructions* Keren Kwon APRN.CNP - 01/21/2023 3:12 PM EDT Get labwork. Restart the amlodipine 5 mg daily. Reschedule the stress testing. Recheck in a month. documented in this encounterOhiohealth Berger Hospital07-03-2023 History of Present illness Narrative* Keren Kwon APRN.GORE STITCHER - 01/21/2023 2:49 PM EDT This is [...] Age of Onset Psychiatry Mother Heart Mother NV 53 Heart Father NV 51 Colon Cancer Father Social History Tobacco [...] improvement. Keren Kwon APRN.CHRISTIANA documented in this encounterOhiohealth Berger Hospital06-07-2023 Miscellaneous Notes* Telephone Encounter - Richelle [...] week. Orders are in. documented in this encounterOhiohealth Berger Hospital04-17-2023 Instructions* Patient Instructions* Keren Kwon APRN.CHRISTIANA - 11/05/2022 2:12 PM EDT Get fasting labwork. Follow-up with cardiology. Restart lisinopril. Recheck in a month. Schedule carotid ultrasound. Check with insurance re: shingrix and pneumonia shot. documented in this encounterOhiohealth Berger Hospital04-17-2023 History of Present illness Narrative* Keren Kwon APRN.CNP - 11/05/2022 1:42 PM EDT This is [...] a friend. 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 Likes his job -- has been there since last year. Trying to get back on track. Planning on attending AA meetings. CAD Has appt 12/21 with [facility]. No new heartpain/sob. HTN: Patient is [...] Age of Onset Psychiatry Mother Heart Mother NV 53 Heart Father NV 51 Colon Cancer Father Social History Tobacco [...] as needed for worsening/no improvement. Keren Kwon APRN.GORE STITCHER This note was partially generated using [employer] recognition system. Note was reviewed for accuracy. There may be minor misspellings or grammar miscues with [employer] voice recognition. documented in this encounterOhiohealth Berger Hospital12-05-2022 History of Present illness Narrative* Bulmaro [...] 25, 2022 6:06 PM documented in this encounterOhiohealth Berger Hospital12-05-2022 History of Present illness Narrative* Ziggy Mobley APRN.GORE STITCHER - 06/25/2022 6:04 PM EST Images from [...] Age of Onset Psychiatry Mother Heart Mother NV 53 Heart Father NV 51 Colon Cancer Father Social History Tobacco [...] 7-9. Whippets inmid to late teens. TO ROS Objective [...] TABLET Ziggy Mobley APRN.CNP documented in this encounterOhiohealth Berger Hospital11-15-2022 Instructions* Patient Instructions* Rebecca Devries APRN.CNP - 06/05/2022 1:57 PM EST covid test ordered You will be notified in 12-24 hours, results available on [facility] until covid results are back [...] breath, inability to swallow. documented in this encounterOhiohealth Berger Hospital11-15-2022 History of Present illness Narrative* Rebecca Devries APRN.CNP - 06/05/2022 1:56 PM EST Subjective The history is provided by the patient. No dye range operator was used. HPI Bethany Montalvo is a [...] have confirmed and edited as necessary, the [facility] Review of Systems Constitutional: Positive for chills, [...] in 12-24 hours with results, available on [facility] Diagnosis and treatment plan were discussed and questions were answered to the patient's satisfaction. Pt acknowledged understanding of concepts and follow up plan. Specific signs and symptoms that would indicate the need for higher level of care were discussed indetail warranting prompt ER evaluation. Rebecca Devries APRN.CHRISTIANA documented in this encounterOhiohealth Berger Hospital09-07-2022 Miscellaneous Notes* Telephone Encounter - Richelle Demarco LPN - 03/28/2022 3:18 PM EDT Patient phones requesting refills as follows: Requested Prescriptions Pending Prescriptions Disp Refills cyclobenzaprine (FLEXERIL) 10 mg tablet 30 tablet 0 Sig: Take 1 tablet by mouth once daily as needed. KRISTEN-02/23/22 Labs-02/21/22 NOV-none med filled 02/23/22 Please review and advise. Richelle Demarco LPN documented in this encounterOhiohealth Berger Hospital08-05-2022 Miscellaneous Notes* Telephone Encounter - Natividad Salas Cma - 02/23/2022 9:59 AM EDT Called and lab was added Natividad Salas Cma * Telephone Encounter - Mikhail Mancia MD - 02/23/2022 8:33 AM EDT Ck was normal.. it appears lipid was ordered for same but I do not think it was done? If not done, can it be added on? documented in this encounterOhiohealth Berger Hospital08-05-2022 Instructions* Patient Instructions* Keren Kwon APRN.CHRISTIANA - 02/23/2022 9:42 AM EDT 1. Schedule w/ cardiology. 2. Start the doxycycline -- twice daily X 10 days. 3. Use the cream to the arm twice daily for up to 2 weeks. 4. Recheck in 1 month. documented in this encounterOhiohealth Berger Hospital08-05-2022 History of Present illness Narrative* Keren Kwon APRN.CNP - 02/23/2022 9:32 AM EDT This is a 56 year old male who presents today with: Patient presents with: urgent care follow up HISTORY OF PRESENT ILLNESS: Behtany Montalvo is a 56 year old male. [...] Age of Onset Psychiatry Mother Heart Mother NV 53 Heart Father NV 51 Colon Cancer Father Social History Tobacco [...] as needed for worsening/no improvement. Keren Kwon APRN.GORE STITCHER The patient indicates understanding of these issues and agrees with the plan. documented in this encounterOhiohealth Berger Hospital08-01-2022 History of Present illness Narrative* Bulmaro [...] 19, 2022 3:29 PM documented in this encounterOhiohealth Berger Hospital08-01-2022 History of Present illness Narrative* Ziggy Mobley APRN.GORE STITCHER - 02/19/2022 3:25 PM EDT Subjective HPI [...] Age of Onset Psychiatry Mother Heart Mother NV 53 Heart Father NV 51 Colon Cancer Father Social History Tobacco [...] MG TABLET Agrees to plan Ziggy Mobley APRN.CHRISTIANA documented in this encounterOhiohealth Berger Hospital04-27-2022 Instructions* Patient Instructions* Keren Kwon APRN.CNP - 11/15/2021 2:16 PM EDT 1. Continue the same medications. 2. Get the previously ordered testing/referrals scheduled. 3. Keep advancing fluids and return next week -- well hydrated to repeat labs. 4. Recheck in a month -- sooner if needed. documented in this encounterOhiohealth Berger Hospital04-27-2022 History of Present illness Narrative* Keren [...] Age of Onset Psychiatry Mother Heart Mother NV 53 Heart Father NV 51 Colon Cancer Father Social History Tobacco [...] plan. This note was partially generated using [employer] voice recognition system. Note was reviewed for accuracy. There may be minor misspellings or grammar miscues with [employer] voice recognition. 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 Paolo Wesley at [facility] regarding patient visit in EMERGENCY DEPARTMENT. He has a potassium of 5.1 in the EMERGENCY DEPARTMENT as well as a creatinine serum of 1.56. He wastreated with IVF and d/c home to follow up with primary care team. FYI to Keren Kwon CNP to address with patient Jared Delarosa DO Curt documented in this encounterOhiohealth Berger Hospital04-21-2022 Miscellaneous Notes* Telephone Encounter - Omega [...] 11/09/2021 12:13 PM EDT Please advise from [employer] message: Needs to come in today to [...] vegetables (turnip greens, spinach, milton lettuce, asparagus, Dresher sprouts, broccoli) Beans. Peanuts. [place] seeds. Fresh fruits, fruit juices. Whole grains. [...] other numbers look good. documented in this encounterOhiohealth Berger Hospital04-20-2022 Miscellaneous Notes* Telephone Encounter - Haris Dawkins RN - 11/08/2021 7:51 PM EDT Kerrie, from the [facility], is calling seeking whomever is backshoe person for Keren Kwon. CHRISTIANA Conferenced through to the affiliate line for further assistance. documented in this encounterOhiohealth Berger Hospital04-20-2022 Miscellaneous Notes* Telephone Encounter - Donna Richey LPN - 11/08/2021 4:01 PM EDT TC to pt, notified of provider instructions. He verbalized understanding. Donna Richey LPN * Telephone Encounter - Keren Kwon APRN.CNP - 11/08/2021 3:57 PM EDT Can please let patient know that I received a recheck potassium level. It is still critically high.He needs to go to the emergency room as soon as possible (now) for treatment. Keren Kwon APRN.CNP documented in this encounterOhiohealth Berger Hospital04-13-2022 Instructions* Patient Instructions* Keren Kwon APRN.CNP - 11/01/2021 4:07 PM EDT 1. Get fasting labs. 2. Schedule carotid ultrasound. 3. Schedule stress test. 4. Schedule w/ GI. 5. Schedule with cardiology. 6. Schedule w/ psychiatry. 7. Recheck in 2-3 weeks. 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 Referral placed. We will go ahead and [...] 3 weeks. Sooner if needed. Keren Kwon APRN.GORE STITCHER The patient indicates understanding of these issues and agrees with the plan. This note was partially generated using [employer] voice recognition system. Note was reviewed for accuracy. There may be minor misspellings or grammar miscues with [employer] voice recognition. I spent a total of 60 minutes on the date of the service which included preparing to see the patient, [id number] patient care, completing clinical documentation, obtaining and/or reviewing separately obtained history, performing a medically appropriate examination, counseling and educating the pat ient/family/caregiver, ordering medications, tests, or procedures and care coordination (not separately reported). documented in this encounterOhiohealth Berger HospitalConsult note Author Luis A Lizarraga [facility] Note Date/Time March 29, 2025 10:36am [facility] Medical Records Department [address] [place] [address] Anesthesia Postop Eval I 03/29/25 1034 MR#: [id number] Acct: [id number] Name: BETHANY MONTALVO Rep #:[id number] : 1965 59 From: Luis A Lizarraga PCP: Keren Kwon PARTS PULLER-C Status:REG S DC Y Race: C Location: [place] [address] ADDENDUM by AMAYA Lizarraga on 03/29/25 at 1036 Addendum signed early by mistake, actual time 1034 03/29/25 1036 <Electronically signed by Luis A Lizarraga > Date _ Luis A Lizarraga cc: ~* Signed Anesthesia: Postop Eval I Current Vital Signs Temperature: 97 F Pulse Rate: 89 Blood Pressure: 116/44 Respiratory Rate: 18 Pulse Ox: 95 Oxygen Delivery Method: Room Air Assessment Airway patent: Yes Spontaneous unlabored respirations: Yes Mental status: Asleep nausea: No Vomiting: No Anesthesia Complication: No Fluid Hydration Crystalloid volume administer (ml): 800 Total IV fluid infused: 800 Progress Note Anesthesia document: Postop Eval 1 completed: Yes 03/29/25 0957 <Electronically signed by Luis A Lizarraga > Date _ Luis A Sinclair Signature: Date CC: ~ Signed [facility] Work Phone: Consult note Author Silvio Rios [facility] Note Date/Time March 29, 2025 11:25am [facility] Medical Records Department [address] [place] [address] Anesthesia Postop Eval II 03/29/25 1103 MR#: [id number] Acct: [id number] Name: BETHANY MONTALVO Rep #:[id number] : 1965 59 From: Silvio Hinkle PCP: WILLIAM ArmendarizC Status:REG S DC Y Race: C Location: [place] [address] Anesthesia Postop Eval I Sum Postop Eval Completion status Anesthesia document: Postop Eval 1 completed: Yes Anesthesia Postop Eval I Summary Anesthesia Postop Eval I Summary: Anesthesia Postop Eval I: Assessment Summary Airway patent Yes 03/29/25 09:57 [email or web address] Spontaneous unlabored Yes 03/29/25 09:57 [email or web address] respirations Mental status Asleep 03/29/25 09:57 [email or web address] nausea No 03/29/25 09:57 [email or web address] Vomiting No 03/29/25 09:57 [email or web address] Anesthesia Postop Eval I: Fluid Summary Crystalloid volume administer 800 03/29/25 09:57 [email or web address] (ml) Colloids volume administered ( ml) Blood Product volume administered (ml) Total IV fluid infused 800 03/29/25 09:57 [email or web address] Anesthesia Postop Eval I: Summary Notes Anesthesia Complication No 03/29/25 09:57 [email or web address] Anesthesia Complication Comment: Post-operative progress note Anesthesia: Postop Eval II Evaluation Mental status: Awake and Calm Pain Level: 1 nausea: No Vomiting: No Complications Anesthesia Complication: No 03/29/25 1103 <Electronically signed by Silvio Rios MD> Date _ Silvio Rios MD Cosigner Signature: Date CC: ~ Signed [facility] Work Phone: Discharge summary Author Shakeel Valera [facility] May 16, 2023 11:11am Note Date/Time May 16, 2023 1 1:08am [facility] Medical Records Department [address] [place] [address] Instructions for Home/Discharge Instructions 05/16/23 1108 MR#: [id number] Acct: [id number] Name: BETHANY MONTALVO Rep #:[id number] : 1965 57 From: Shakeel rendon MD [...] Resume on 05/20/23. Referrals / Follow Up: Keren Kwon NP, MELI-C [Primary Care Provider] - Within 1 Week Disposition Disposition (needs filled in before D/C Order can be placed): Home, Self Care 05/16/23 1111<Electronically signed by Shakeel Valera MD>Shakeel Valera MD CC: XUAN Kwon; Dr. Lorena Bennett, DO ~ Signed [facility] Work Phone: Discharge summary Author Jatin Mcgraw [facility] Note Date/Time March 05, 2025 9: 52am [facility] Medical Records Department [address] [place] [id number] Instructions for Home/Discharge Instructions 03/05/25 0948 MR#: [id number] Acct: [id number] Name: BETHANY MONTALVO Rep #:[id number] : 1965 59 From: Jatin Hinkle PCP: XUAN Armendariz Status:ADM I N Discharge Instructions DC O2, CPAP, BIPAP needs Home O2 Discharge instructions: No Follow Up Care Test Results: Test results from this visit will be discussed in further detail at your follow- up appointment, if applicable. Discharge Plan Admission Admit Date/Time: 03/03/25 21:48 Primary Reason for Your Visit: LUZ MARIA, mild rhabdomyolysis Attending Provider: Jatin Mcgraw Primary Care Provider: Keren Kwon PARTS PULLER Consulting Providers: Michela Murillo Discharge Orders/Prescriptions Prescriptions: Continued nitroglycerin 0.4 mg tablet, sublingual 0.4 mg SUBLINGUAL Q5M PRN (Reason: Chest Pain) Qty: 25 3RF trazodone 50 mg tablet 100 mg PO QHS magnesium oxide 400 mg (241.3 mg magnesium) tablet 400 mg PO DAILY thiamine HCl (vitamin B1) 100 mg tablet 100 mg PO DAILY folic acid 1 mg tablet 1 mg PO DAILY buspirone 7.5 mg tablet 7.5 mg PO TID carvedilol 25 mg tablet 25 mg PO BID Rx Instructions: must administer with a meal/food omeprazole 20 MG capsule 20 mg PO DAILY Patient Comments: REFLUX cyclobenzaprine 10 mg tablet 10 mg PO DAILY PRN (Reason: Pain) multivitamin [Daily Multi-Vitamin] Tablet 1 tab PO DAILY cyanocobalamin (vitamin B-12) [Vitamin B-12] 100 mcg tablet 100 mcg PO DAILY aspirin 81 mg tablet,delayed release (DR/EC) 81 mg PO DAILY Qty: 90 3RF Held lisinopril 10 mg tablet 10 mg PO QDAY Hold Instructions: Hold for week follow-up with BMP PCP before resumption. atorvastatin 40 mg tablet 40 mg PO QHS Qty: 90 3RF Hold Instructions: Hold for 7 days Referrals / Follow Up: Keren Kwon NP, PARTS PULLER-C [Primary Care Provider] - Disposition Disposition (needs filled in before D/C Order can be placed): Home, Self Care 03/05/25 0952<Electronically signed by Jatin Mcgraw MD>Jatin Mcgraw MD CC: WILLIAMC Keren Kwon; Dr. Michela Murillo DO ~ Signed [facility] Work Phone: Evaluation note* Diagnosis Chest pain, [...] unspecified cardiovascular conditions documented in this encounter [facility] HospitalEvaluation noteNo assessment information availableWChildren's Hospital for Rehabilitation Work Phone: Evaluation note* Diagnosis Serum potassium elevated- Primary Hyperpotassemia NSTEMI (non-ST elevated myocardial infarction) (HCC) Acute myocardial infarction, subendocardial infarction, episode of care unspecified Hypertriglyceridemia Pure hyperglyceridemia Hyperlipidemia, mixed Mixed hyperlipidemia documented in this encounter [facility] HospitalEvalunem[facility] [place] note* Diagnosis Upper back pain- Primary Function kidney decreased Unspecified disorder of kidney and ureter documented in this encounter [facility]Evaluation note* Diagnosis Acute cough- Primary Hypertension, essential Unspecified essential hypertension URI, acute Acute upper respiratory infections of unspecified site documented in this encounter [facility]Evaluation note* Diagnosis Sinobronchitis- Primary Unspecified sinusitis [...] to unspecified cause documented in this encounter [facility]* Diagnosis Anxiety and depression Dysthymic disorder Hypertension, essential Unspecified essential hypertension Hypertriglyceridemia Pure hyperglyceridemia Chronic alcohol abuse Alcohol abuse, unspecified 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 Acute right-sided low back pain without sciatica documented in this encounter [facility]* Diagnosis Body aches- Primary Generalized pain Flu-like symptoms Other general symptoms documented in this encounter [facility]* Diagnosis Foot pain, right- Primary Pain in limb documented in this encounter [facility]* Diagnosis Hypertension, essential- Primary Unspecified essential [...] of cerebral infarction documented [facility] this encounter [facility]* Diagnosis Chest pain, unspecified type- Primary 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 Acute right-sided low back pain without sciatica Hypertension, essential Unspecified essential hypertension Thrombocytopenia (HCC) Thrombocytopenia, unspecified Chronic alcohol abuse Alcohol abuse, unspecified documented in this encounter [facility]* Diagnosis Onset Date Resolution Status Chest pain acute WILSON (dyspnea on exertion) ac mi'kmaq Fatigue acute Tobacco use acute Hyperlipidemia chronic Hypertension chronic 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 Lung nodule acute COPD (chronic obstructive pulmonary disease) chronic [facility] Work Phone: Evaluation note* Diagnosis Elevated liver enzymes- Primary Other nonspecific abnormal serum enzyme levels Hypomagnesemia Disorders of magnesium metabolism documented in this encounter [facility]Evalun[facility] [place] note* Diagnosis Onset Date Resolution Status Chest pain acute WILSON (dyspnea on exertion) ac mi'kmaq Hyperlipidemia chronic Hypertension chronic 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 COPD (chronic obstructive pulmonary disease) chronic Carotid artery disease chron ic Chronic kidney disease chron ic COPD (chronic obstructive pulmonary disease) chronic Coronary artery disease 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 Hyperlipidemia chronic Hypertension chronic History of non-ST elevation myocardial infarction (NSTEMI) resolved [facility] Work Phone: Evaluation note* Diagnosis Influenza-like illness- Primary Influenza with other respiratory manifestations Hypertension, essential Unspecified essential hypertension documented [facility] this encounter [facility]* Diagnosis Onset Date Resolution Status Carotid artery disease chron ic Chronic kidney disease chron ic COPD (chronic obstructive pulmonary disease) chronic Coronary artery disease 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 Hyperlipidemia chronic Hypertension chronic History of non-ST elevation myocardial infarction (NSTEMI) resolved Abdominal pain acute Acidosis, lactic acute Acute dehydration acute LUZ MARIA (acute kidney injury) ac mi'kmaq Alcohol withdrawal acute Alcoholic hepatitis acute Dehydration acute Nausea & vomiting acute [facility] Work Phone: Evaluation note* Diagnosis Onset Date Resolution Status Carotid artery disease chron ic Chronic kidney disease chron ic COPD (chronic obstructive pulmonary disease) chronic Coronary artery disease 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 Hyperlipidemia chronic Hypertension chronic History of non-ST elevation myocardial infarction (NSTEMI) resolved Abdominal pain acute Acidosis, lactic acute Acute dehydration acute LUZ MARIA (acute kidney injury) ac mi'kmaq Alcohol withdrawal acute Alcoholic hepatitis acute Dehydration acute Hyperbilirubinemia acute Nausea vomiting and diarrhea acute Transaminitis acute [facility] Work Phone: Evaluation note* Diagnosis Onset Date Resolution Status Noncompliance with medications acute Carotid artery disease chron ic Chronic kidney disease chron ic COPD (chronic obstructive pulmonary disease) chronic Coronary artery disease 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 Hyperlipidemia chronic Hypertension chronic Nicotine dependence chronic History of non-ST elevation myocardial infarction (NSTEMI) resolved [facility] Work Phone: Evaluation note* Diagnosis Coronary artery [...] of cerebral infarction documented [facility] this encounter [facility]* Diagnosis Family hx of colon cancer- Primary Family history of malignant neoplasm of gastrointestinal tract Screening for colon cancer Special screening for malignant neoplasms, colon Hx of colonic polyps Personal history of colonic polyps documented [facility] this encounter [facility]* Diagnosis Sore throat- Primary Acute pharyngitis Injury of right elbow, initial encounter Viral illness Unspecified viral infection, in conditions classified elsewhere and of unspecified site Injury of right elbow, initial encounter [facility] Injury of right elbow, initial encounter [facility] Diagnosis Anxiety and depression Dysthymic disorder [facility]* Diagnosis Acute cough- Primary Acute cough [facility]* Diagnosis Acute cough [facility]* Diagnosis Anxiety and depression Dysthymic disorder [facility]* Diagnosis Hyponatremia- Primary Hyposmolality and/or hyponatremia Elevated alkaline phosphatase level Other nonspecific abnormal serum enzyme levels Elevated PSA Elevated prostate specific antigen (PSA) Elevated hemoglobin (HCC) Other hemoglobinopathies [facility]* Diagnosis Acute pain of left knee- Primary Moderate hypertension Unspecified essential hypertension [facility] Acute pain of left knee [facility] pain of left knee [facility] Diagnosis Elevated PSA- Primary Elevated prostate specific antigen (PSA) Elevated alkaline phosphatase level Other nonspecific abnormal serum enzyme levels [facility] [place] [facility] Diagnosis Acute pain of left knee- Primary Hx of non-ST elevation myocardial infarction (NSTEMI) Old myocardial infarction Hypertension, unspecified type Elevated alkaline phosphatase level Other nonspecific abnormal serum enzyme levels Elevated PSA Elevated prostate specific antigen (PSA) Acute gout of left knee, unspecified cause Chronic alcohol abuse Alcohol abuse, unspecified [facility] [place] [facility]* Diagnosis Elevated alkaline phosphatase level Other nonspecific abnormal serum enzyme levels [facility] [place] [facility]* Diagnosis Hepatosplenomegaly- Primary Other chronic nonalcoholic liver disease [facility] [place] [facility]* Diagnosis Hypertension, essential- Primary Unspecified essential hypertension Current severe episode of major depressive disorder without psychotic features, unspecified whether recurrent (HCC) Alcohol abuse Alcohol abuse, unspecified Acute pain of left knee [facility] [place] [facility]* Diagnosis Elevated PSA- Primary Elevated prostate specific antigen (PSA) BPH with obstruction/lower urinary tract symptoms Hypertrophy of prostate with urinary obstruction and other lower urinary tract symptoms (LUTS) ETOH abuse Alcohol abuse, unspecified [facility] [place] [facility]* Diagnosis Hypertension, essential- Primary Unspecified essential [...] insomnia Insomnia, unspecified [facility] [place] [facility]* Diagnosis Hypertension, unspecified type [facility] Diagnosis Acute right-sided low back pain without sciatica documented [facility] [place] [facility]* Diagnosis Medial epicondylitis, right elbow- Primary Elbow pain, right Pain in joint, upper arm [facility]* Diagnosis Hypomagnesemia Disorders of magnesium metabolism Chronic alcohol abuse Alcohol abuse, unspecified Hypertension, unspecified type [facility] Diagnosis Elevated PSA- Primary Elevated prostate specific antigen (PSA) [facility] Diagnosis Hypertension, unspecified type [facility] Diagnosis Acute right-sided low back pain without sciatica [facility]* Diagnosis Lower abdominal pain- Primary Abdominal pain, other specified site Diarrhea, unspecified type [facility]* Diagnosis Non-traumatic rhabdomyolysis- Primary LUZ MARIA (acute kidney injury) Acute kidney failure, unspecified Alcohol use, unspecified, in remission Diarrhea, unspecified type Dehydration [facility]* Diagnosis Hyperkalemia- Primary Hyperpotassemia [facility]* Diagnosis Anxiety and depression Dysthymic disorder Chronic insomnia Insomnia, unspecified Hypertension, unspecified type [facility] Author Julius Lovell [facility] Note Date/Time March 29, 2025 9:52am [facility] Medical Records Department [address] [place] [address] History & Physical Exam 03/29/25 0950 MR#: [id number] Acct: [id number] Name: BETHANY MONTALVO Rep #:[id number] : 1965 59 From: Julius Lovell DO PCP: XUAN Armendariz Status:REG S SD Location: [place] [address] HPI - General General Date of Admission: 03/29/25 Date of Service: 03/29/25 Chief Complaint: Varices screening and screening colonoscopy HPI Narrative BETHANY MONTALVO, is a 59 M who presentsDARREDU MONTALVO, is a 58 M who presents [...] occasional caffeine intake - former smoker - quit chew 3 weeks ago - denies any marijuana in the past 3 weeks - IBU PRN - Naproxen PRN - dislocated right elbow - weight is stable - denies any h/o blood transfusion - denies any h/o IVDU - EtOH - 2-3 a day and has binges 6-7 drinks a day - reports this is a higher concentration beer 8% - alcohol consumption dates back 43 years - denies any bruising - family h/o alcohol use (maternal uncles) - liver cirrhosis - 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 [place] Friend, DO) Wears glasses Hyponatremia Rhabdomyolysis Personal history of colon polyps, unspecified Family history of malignant neoplasm of colon in father Anxiety Kidney disease GERD (gastroesophageal reflux disease) GI bleed Sleep apnea Former smoker Asthma Irregular heart beat Myocardial infarct TIA (transient ischemic attack) Abdominal pain Alcohol withdrawal Acute dehydration Nausea & vomiting Dehydration Alcoholic hepatitis Thrombocytopenia LUZ MARIA (acute kidney injury) Alcohol withdrawal Carotid artery disease Chronic kidney disease History of non-ST elevation myocardial infarction (NSTEMI) Coronary artery disease COPD (chronic obstructive pulmonary disease) Lung nodule Tobacco use WILSON (dyspnea on exertion) Fatigue Chest pain Heart failure COPD exacerbation Hypoxia Community acquired pneumonia Alcohol intoxication Suicidal ideation Atherosclerosis of coronary artery of [place] heart without angina pectoris Depression NSTEMI (non-ST elevated myocardial infarction) Obesity (BMI 30.0-34.9) Hyperlipidemia Hypertension Alcohol abuse Chest pain Home Medications ?Medication ?Instructions ?Recorded ?Last Taken ?Type omeprazole 20 mg capsule,delayed 20 mg PO DAILY heart burn 06/17/14 03/29/25 06:30 History release nitroglycerin 0.4 mg sublingual 0.4 mg sublingual Q5M PRN Chest 12/24/22 Unknown Rx tablet Pain #25 tabs cyclobenzaprine 10 mg tablet 10 mg PO DAILY PRN Pain 0 10/14/23 Unknown History folic acid 1 mg tablet 1 mg PO DAILY 10/14/23 Unkno wn History magnesium oxide 400 mg (241.3 mg 400 mg PO DAILY 10/13 Unknown History magnesium) tablet thiamine HCl (vitamin B1) 100 mg 100 mg PO DAILY 10/13 Unknown History tablet buspirone 7.5 mg tablet 7.5 mg PO TID 09/29/2403/29 06:30 History carvedilol 25 mg tablet 25 mg PO BID 09/29/24 History lisinopril 10 mg tablet 10 mg PO QDAY 09/29/24 Unkno wn History Held on 03/05/25. Instructions: Hold for week follow-up with BMP PCP before resumption. trazodone 50 mg tablet 100 mg PO QHS 09/29/24 Unkno wn History aspirin 81 mg tablet,delayed 81 mg PO DAILY heart #90 tabs 10/27/24 03/25/25 Rx release atorvastatin 40 mg tablet 40 mg PO QHS #90 tabs Unknown Rx Held on 03/05/25. Instructions: Hold for 7 days cyanocobalamin (vitamin B-12) 100 100 mcg PO DAILY 05/15 Unknown History mcg tablet (Vitamin B-12) multivitamin (Daily Multi-Vitamin 1 tab PO DAILY 01/28 Unknown History tablet) Allergy/AdvReac Type Severity Reaction Status Date / Time No Known Allergies Allergy Verified 03/29/25 09:03 Family History Mother CAD (coronary artery disease) Father CAD (coronary artery disease) Colon cancer, Onset Age: 53 At 53yrs Brother CAD (coronary artery disease) Myocardial infarction Sister CAD (coronary artery disease) Surgical History Hx of colonoscopy History of coronary artery stent placement Stented coronary artery History of tonsillectomy Hx of eye surgery Social History household members: significant other housing: apartment current occupational status: employed current occupation: [employer] Smoking Status: Former smoker alcohol intake: current alcohol intake frequency: 3 or more drinks per day substance use type: former substance user caffeine: Yes Type: coffee Number of servings: 2 what type of physical activity do you participate in: none ROS Constitutional Constitutional: Denies fatigue, fever(s), poor appetite, weight gain or weight loss Gastrointestinal Gastrointestinal: Denies belching, bloating, change in bowel habits, change in stool character, chewing difficulty, coffee ground emesis, constipation, cramping, diarrhea, dyspepsia, dysphagia, early satiety, excessive flatus, fecalincontinence, heartburn, hematemesis, hematochezia, hemorrhoids, loose stools, melena, nausea, odynophagia, rectal bleeding, tenesmus, vomiting or weight changes Vital Signs Vital Signs Vital Signs: 03/29/25 09:05 03/29/25 09:05 03/29/25 09:25 Temperature 98 F 98 F Temperature Source Temporal Pulse Rate 100 100 Respiratory Rate 14 14 Respiratory Pattern Normal Blood Pressure 140/103 H 140/103 H Blood Pressure Mean 115 Blood Pressure Source Monitor Blood Pressure Position Sitting Blood Pressure Location Left Arm Pulse Ox 98 98 Oxygen Delivery Method Room Air Room Air Weight Weight: 211 lb 10.3 oz Body Mass Index (BMI) 30.3 Physical Exam Const alert, oriented x3, no apparent distress and healthy appearing General Appearance: cooperative GI normal to inspection, nondistended, normoactive bowel sounds, soft to palpation,non-tender and non-distended Percussion: normal to percussion Rectal Exam: deferred Assessment & Plan Assessment/Plan (1) Heartburn: (2) Alcohol abuse: (3) Encounter for screening colonoscopy: (4) Family history of malignant neoplasm of colon in father: PLAN: Assessment and Plan Assessment and Plan (1) Gastroesophageal reflux disease: Qualifiers: Esophagitis presence: esophagitis presence not specified Qualified Code(s): K21.9 - Gastro-esophageal reflux disease without esophagitis (2) Alcohol abuse: Status: Chronic (3) Gallbladder polyp: Status: Acute (4) Steatosis, liver: Status: Acute (5) Heartburn: Status: Acute (6) Thrombocytopenia: Status: Acute Orders: Orders CBC W/Diff, Automated Today F10.10 - Alcohol abuse, uncomplicated, K76.0 - Fatty (change of) liver, not elsewhere classified, K82.4 - Cholesterolosis of gallbladder, R12 - Heartburn Comprehensive Metabolic Profil Today F10.10 - Alcohol abuse, uncomplicated, K76.0 - Fatty (change of) liver, not elsewhere classified, K82.4 - Cholesterolosis of gallbladder, R12 - Heartburn Hepatitis A AB, Total Today F10.10 - Alcohol abuse, uncomplicated, K76.0 - Fatty (change of) liver, not elsewhere classified, K82.4 - Cholesterolosis of gallbladder, R12 - Heartburn Hepatitis B Core Ab Total Today F10.10 - Alcohol abuse, uncomplicated, K76.0 - Fatty (change of) liver, not elsewhere classified, K82.4 - Cholesterolosis of gallbladder, R12 - Heartburn Hepatitis B Surface Antibody Today F10.10 - Alcohol abuse, uncomplicated, K76.0- Fatty (change of) liver, not elsewhere classified, K82.4 - Cholesterolosis of gallbladder, R12 - Heartburn Hepatitis B Surface Antigen Today F10.10 - Alcohol abuse, uncomplicated, K76.0 - Fatty (change of) liver, not elsewhere classified, K82.4 - Cholesterolosis of gallbladder, R12 - Heartburn Hepatitis C Antibody Today F10.10 - Alcohol abuse, uncomplicated, K76.0 - Fatty(change of) liver, not elsewhere classified, K82.4 - Cholesterolosis of gallbladder, R12 - Heartburn Miscellaneous Lab Procedure Today F10.10 - Alcohol abuse, uncomplicated, K76.0 - Fatty (change of) liver, not elsewhere classified, K82.4 - Cholesterolosis of gallbladder, R12 - Heartburn Prothrombin Time w/INR Today F10.10 - Alcohol abuse, uncomplicated, K76.0 - Fatty (change of) liver, not elsewhere classified, K82.4 - Cholesterolosis of gallbladder, R12 - Heartburn ABD Limited w/ Elastography Today F10.10 - Alcohol abuse, uncomplicated, K76.0 - Fatty (change of) liver, not elsewhere classified, K82.4 - Cholesterolosis of gallbladder, R12 - Heartburn EGD 12/03/24 R12 - Heartburn Plan 58y/o male presents for consultation for evaluation of liver steatosis. ABD US completed in 2022 revealed liver steatosis and gallbladder polyp. Labs completed September 2023 revealed thrombocytopenia (145) and mildly elevated AST (55). He reports a long history of alcohol abuse and family history of alcoholic cirrhosis. He denies easy bruising, bleeding, pain or confusion. I have ordered additional labs, FibroScan and a repeat abdominal ultrasound. He reports a long history of esophageal reflux which is managed with omeprazole daily. He is scheduled for colonoscopy and we will perform an EGD at the same time. Patient Instructions: Alcohol cessation is encouraged Continue omeprazole daily. Support system for alcohol cessation is encouraged including reestablishing witha counselor and attending AA meetings. Follow-up in the office posttesting to review results. Plan Details Follow Up: 3 Months 03/29/25 0952 <Electronically signed by Julius Lovell DO> Cosigner Signature (if applicable): CC: XUAN Kwon; Julius Lovell DO~ Signed [facility] Work Phone: Hospital Discharge instructionsAdditional Instructions Date of Dis[facility]: [facility]/25[facility] Work Phone: Reason for referral (narrative)* Diagnostic Procedure Only (Routine) - Pending Review Specialty Diagnoses / Procedures Referred By Corbin soler Referred To Contact MOLECULAR & FUNCTIONAL IMAGING Diagnoses Chest pain, unspecified type Encounter for screening for cardiovascular disorders Procedures NM CARDIAC PERF STRESS/PHARM MYOCARDIAL SPECT MULTIPLE STUDIES Keren Kwon APRN.GORE STITCHER [address] [place] [address] Molecular & Functional Imaging [address] [place] [address] Referral ID Status Reason Start Date Expiration Date Visits Requested Visits Authorized [id number] Pending Review Auto-Generat ed Referral 11/01/2021 12/01/2022 1 1 * Consult, Test, Treat (Routine) - Authorized Specialty Diagnoses / Procedures Referred By Corbin t Referred To Contact Gastroenterology Diagnoses Diverticulitis Procedures CONSULT TO GASTROENTEROLOGY OFFICE/OUTPATIENT [facility] 60-74 MINUTES Keren Kwon APRN.GORE STITCHER [address] [place] [address] Referral ID Status Reason Start Date Expiration Date Visits Requested Visits Authorized [id number] Authorized PCP Requested Referral 11/01/2021 11/01/2022 1 1 * Consult, Test, Treat (Routine) - Authorized Specialty Diagnoses / Procedures Referred By Contbenito t Referred To Contact Cardiology Diagnoses Chest pain, unspecified type 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 Procedures CONSULT TO CARDIOLOGY OFFICE/OUTPATIENT NEW HIGH MDM 60-74 MINUTES Keren Kwon APRN.G[employer] STITCHER [address] [place] [address] Referral ID Status Reason Start Date Expiration Date Visits Requested Visits Authorized [id number] Authorized PCP Requested Referral 11/01/2021 11/01/2022 1 1 * Outpatient Procedure (Routine) - Pending Review Specialty Diagnoses / Procedures Referred By Contac t Referred To Contact [facility] [place] Diagnoses Bilateral carotid artery stenosis Procedures US CAROTID ARTERIES MARYANNE V[facility] LAB DUPLEX SCAN EXTRACRANIAL ART COMPL BI STUDY Keren Kwon APRN.GORE STITCHER [address] [place] [address] [facility] [address] [address] Referral ID Status Reason Start Date Expiration Date Visits Requested Visits Authorized [id number] Pending Review Auto-Generat ed Referral 11/01/2021 11/01/2022 1 1 * Outpatient Procedure (Routine) - Closed Specialty Diagnoses / Procedures Referred By Contac t Referred To Contact [facility] [place] Diagnoses Chest pain, unspecified type Procedures ECG COMPLETE ECG ROUTINE ECG W/LEAST 12 LDS W/I&R Keren Kwon APRN.GORE STITCHER [address] [place] [address] [facility] [place] [address] [place] [address] Referral ID Status Reason Start Date Expiration Date V isits Requested Visits Authorized [id number] Closed Auto-Generate d Referral 11/01/2021 11/01/2022 1 1 [facility] for referral (narrative)* Diagnostic Procedure Only (Urgent) - Closed Specialty Diagnoses / Procedures Referred By Contac t Referred To Contact XR IMAGING Diagnoses Foot pain, right Procedures XR FOOT GENERAL 3V AP/LAT/OBL RIGHT RADEX FOOT COMPLETE MINIMUM 3 VIEWS Ziggy Mobley APRN.GORE STITCHER [address] [place] [address] Xr Imaging Referral ID Status Reason Start Date Expiration Date V isits Requested Visits Authorized [id number] Closed Auto-Generate d Referral 06/25/2022 07/25/2023 1 1 [facility] for referral (narrative)* Outpatient Procedure (Routine) - Authorized Specialty Diagnoses / Procedures Referred By Contac t Referred To Contact [facility] Diagnoses Bilateral carotid artery stenosis Procedures US CAROTID ARTERIES MARYANNE VAS LAB DUPLEX SCAN EXTRACRANIAL ART COMPL BI STUDY Keren Kwon APRN.GORE STITCHER [address] [place] [address] [facility] [place] [address] [place] [address] Referral ID Status Reason Start Date Expiration Date Visits Requested Visits Authorized [id number] Authorized Auto-Generat ed Referral 11/05/2022 11/05/2023 1 1 * Medication Prior Authorization - Closed Specialty Diagnoses / Procedures Referred By Contac t Referred To Contact Diagnoses 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 Keren Kwon APRN.GORE STITCHER [address] [place] [address] Referral ID Status Reason Start Date Expiration Date Visits Re quested Visits Authorized [id number] Closed 1 1 [facility] for referral (narrative)* Diagnostic Procedure Only (Routine) - Pending Review Specialty Diagnoses / Procedures Referred By Contac t Referred To Contact US IMAGING Diagnoses Elevated liver enzymes Procedures US ABD RIGHT UPPER QUADRANT US ABDOMINAL REAL TIME W/IMAGE LIMITED Keren Kwon APRN.GORE STITCHER [address] [place] [address] Us Imaging Referral ID Status Reason Start Date Expiration Date Visits Requested Visits Authorized [id number] Pending Review Auto-Generat ed Referral 12/26/2022 01/25/2024 1 1 [facility] for referral (narrative)* Outpatient Procedure (Routine) - Authorized Specialty Diagnoses / Procedures Referred By Contac t Referred To Contact [facility] Diagnoses Bilateral carotid artery stenosis Procedures US CAROTID ARTERIES MARYANNE VAS LAB DUPLEX SCAN EXTRACRANIAL ART COMPL BI STUDY Keren Kwon APRN.GORE STITCHER [address] [place] [address] [facility] [place] [address] [place] [id number] Referral ID Status Reason Start Date Expiration Date Visits Requested Visits Authorized [id number] Authorized Auto-Generat ed Referral 4 06/12/2025 1 1 * Consult, Test, Treat (Routine) - Authorized Specialty Diagnoses / Procedures Referred By Contac t Referred To Contact General Surgery Diagnoses Screening for colon cancer Procedures CONSULT TO GENERAL SURGERY OFFICE/OUTPATIENT [facility] 60 MINUTES Keren Kwon APRN.GORE STITCHER [address] [place] [address] Referral ID Status Reason Start Date Expiration Date Visits Requested Visits Authorized [id number] Authorized PCP Requested Referral 4 06/12/2025 1 1 [facility] for referral (narrative)* Diagnostic Procedure Only (Urgent) - Closed Specialty Diagnoses / Procedures Referred By Contac t Referred To Contact XR IMAGING Diagnoses Injury of right elbow, initial encounter Procedures XR ELBOW SPECIAL VIEWS AP/LAT/OTHER RIGHT RADEX ELBOW COMPLETE MINIMUM 3 VIEWS Desmond Duncan APRN.GORE STITCHER [address] [place] [address] Xr Imaging [facility] Referral ID Status Reason Start Date Expiration Date V isits Requested Visits Authorized [id number] Closed Auto-Generate d Referral 07/09/2024 08/08/2025 1 1 [facility] for referral (narrative)* Diagnostic Procedure Only (Routine) - Closed Specialty Diagnoses / Procedures Referred By Contac t Referred To Contact XR IMAGING Diagnoses Acute pain of left knee Procedures XR KNEE GENERAL 4V AP BOTH/PA BOTH/LAT/MERC LEFT RADIOLOGIC EXAM KNEE COMPLETE 4/MORE VIEWS Keren Kwon APRN.GORE STITCHER [address] [place] [address] [place] [address] Referral ID Status Reason Start Date Expiration Date V isits Requested Visits Authorized [id number] Closed Auto-Generate d Referral 08/11/2024 09/10/2025 1 1 [facility] for referral (narrative)* Diagnostic Procedure Only (Routine) - Authorized Specialty Diagnoses / Procedures Referred By Contac t Referred To Contact US IMAGING Diagnoses Elevated alkaline phosphatase level Procedures US ABD RIGHT UPPER QUADRANT US ABDOMINAL REAL TIME W/IMAGE LIMITED Keren Kwon APRN.GORE STITCHER [address] [place] [address] [place] [address] Referral ID Status Reason Start Date Expiration Date Visits Requested Visits Authorized [id number] Authorized Auto-Generat ed Referral 08/14/2024 09/13/2025 1 1 * Consult, Test, Treat (Routine) - Authorized Specialty Diagnoses / Procedures Referred By Contac t Referred To Contact Urology Diagnoses Elevated PSA Procedures CONSULT TO UROLOGY OFFICE/OUTPATIENT NEW HIGH MDM 60 MINUTES Keren Kwon APRN.GORE STITCHER [address] [place] [address] Referral ID Status Reason Start Date Expiration Date Visits Requested Visits Authorized [id number] Authorized PCP Requested Referral 08/12/2024 08/12/2025 1 1 [facility] for referral (narrative)* Diagnostic Procedure Only (Routine) - Closed Specialty Diagnoses / Procedures Referred By Contac t Referred To Contact US IMAGING Diagnoses Elevated alkaline phosphatase level Procedures US ABD RIGHT UPPER QUADRANT US ABDOMINAL REAL TIME W/IMAGE LIMITED Keren Kwon APRN.GORE STITCHER [address] [place] [address] [place] [address] Referral ID Status Reason Start Date Expiration Date V isits Requested Visits Authorized [id number] Closed Auto-Generate d Referral 08/14/2024 09/13/2025 1 1 [facility] for referral (narrative)No reason for referral information [facility] Work Phone: Reason for visit Narrative* Diagnostic Procedure Only (Urgent) - Closed Specialty Diagnoses / Procedures Referred By Contac t Referred To Contact XR IMAGING Diagnoses Foot pain, right Procedures XR FOOT GENERAL 3V AP/LAT/OBL RIGHT RADEX FOOT COMPLETE MINIMUM 3 VIEWS Ziggy Mobley GUEST SERVICE TEAM LEADER.GORE STITCHER [address] [place] [address] [place] [address] Referral ID Status Reason Start Date Expiration Date V isits Requested Visits Authorized [id number] Closed Auto-Generate d Referral 06/25/2022 07/25/2023 1 1 [facility] for visit Narrative* Diagnostic Procedure Only (Urgent) - Closed Specialty Diagnoses / Procedures Referred By Contac t Referred To Contact XR IMAGING Diagnoses Injury of right elbow, initial encounter Procedures XR ELBOW SPECIAL VIEWS AP/LAT/OTHER RIGHT RADEX ELBOW COMPLETE MINIMUM 3 VIEWS Desmond Duncan GUEST SERVICE TEAM LEADER.GORE STITCHER [address] [place] [address] [place] [address] Referral ID Status Reason Start Date Expiration Date V isits Requested Visits Authorized [id number] Closed Auto-Generate d Referral 07/09/2024 08/08/2025 1 1 [facility] for visit Narrative* Diagnostic Procedure Only (Routine) - Closed Specialty Diagnoses / Procedures Referred By Contac t Referred To Contact XR IMAGING Diagnoses Acute pain of left knee Procedures XR KNEE GENERAL 4V AP BOTH/PA BOTH/LAT/MERC LEFT RADIOLOGIC EXAM KNEE COMPLETE 4/MORE VIEWS Keren Kwon, GUEST SERVICE TEAM LEADER.GORE STITCHER [address] [facility] [place] [id number] [place] [id number] Referral ID Status Reason Start Date Expiration Date V isits Requested Visits Authorized [id number] Closed Auto-Generate d Referral 08/11/2024 09/10/2025 1 1 [facility] Summary Purpose Family History No Family History Records Found Relationship Condition Age at Onset Recorded Date/T diallo mother Coronary artery disease Unknown father Coronary artery disease Unknown brother Coronary artery disease Unknown Myocardial infarction Unknown sister Coronary artery disease Unknown Relationship Condition Age at Onset Recorded Date/T diallo mother Coronary artery disease Unknown father Coronary artery disease Unknown Malignant neoplasm of colon 53 brother Coronary artery disease Unknown Myocardial infarction Unknown sister Coronary artery disease Unknown Advance Directives No Advanced Directives Records Found Advance Directive Response Recorded Date/ Time Advance Directives No January 12 12:30pm Living Will No November 08, 2021 6:00pm Power of Criminal Intelligence Analyst No November 08 6:00pm Advance Directive Response Recorded Date/ Time Advance Directives No January 12 12:30pm Living Will No January 02, 2023 8:59am Power of Criminal Intelligence Analyst No January 02 8:59am Advance Directive Response Recorded Date/ Time Advance Directives No January 12 12:30pm Living Will No May 13 11:47am Power of Criminal Intelligence Analyst No May 13, 2023 11:47am Advance Directive Response Recorded Date/ Time Advance Directives No January 12 12:30pm Living Will No May 13 5:41pm Power of Criminal Intelligence Analyst No May 13, 2023 5:41pm Advance Directive Response Recorded Date/ Time Do you have a Healthcare Power of Criminal Intelligence Analyst? No March 03, 2025 7:12pm Advance Directives No January 12 12:30pm Advance Directive Response Recorded Date/ Time Do you have a Healthcare Power of Criminal Intelligence Analyst? No March 03, 2025 10:20pm Advance Directives No January 12 12:30pm Advance Directive Response Recorded Date/ Time Do you have a Healthcare Power of Criminal Intelligence Analyst? No March 03, 2025 10:20pm Do you have a Healthcare Power of Criminal Intelligence Analyst? No March 10, 2025 6:32pm Advance Directives No January 12 12:30pm Advance Directive Response Recorded Date/ Time Do you have a Healthcare Power of Criminal Intelligence Analyst? No March 03, 2025 10:20pm Do you have a Healthcare Power of Criminal Intelligence Analyst? No March 25, 2025 4:43pm Do you have a Healthcare Power of Criminal Intelligence Analyst? No March 10, 2025 6:32pm Advance Directives No January 12 12:30pm Chief Complaint and Reason for Visit Chief Complaint HIGH K Chief Complaint OVERDUE VISIT PREV. AKBAR COMPLAINT Lung Nodule LUNG NODULE Reason for Visit Chest pain WILSON (dyspnea on exertion) Fatigue Tobacco use Hyperlipidemia Hypertension Stented coronary artery Lung nodule COPD (chronic obstructive pulmonary disease) Chief Complaint OVERDUE VISIT PREVSanjeev WEBBER COMPLAINT Lung Nodule LUNG NODULE CHEST PAIN, WILSON, CHEST PAIN, WILSON, Reason for Visit Chest pain WILSON (dyspnea on exertion) Fatigue Tobacco use Hyperlipidemia Hypertension Stented coronary artery Lung nodule COPD (chronic obstructive pulmonary disease) Chief Complaint OVERDUE VISIT PREVSanjeev WEBBER COMPLAINT Lung Nodule LUNG NODULE CHEST PAIN, [...] non-ST elevation myocardial infarction (NSTEMI) Chief Complaint Admit Date SEVERE LUZ MARIA, MYOTOXICITY AFTER EXERTION I N HEAT, March 03, 2025 9:48pm Chief Complaint Admit Date SEVERE LUZ MARIA, MYOTOXICITY AFTER EXERTION I N HEAT, March 03, 2025 9:48pm SEVERE LUZ MARIA, MYOTOXICITY AFTER EXERTION I N HEAT, March 04, 2025 10:47am Reason for Visit Admit Date Adverse drug reaction March 03, 2025 9:48pm LUZ MARIA (acute kidney injury) March 03, 9:48pm Diarrhea March 03, 2025 9: 48pm Hepatic steatosis March 03, 2025 9: 48pm Hyponatremia March 03, 2025 9: 48pm Leukocytosis March 03, 2025 9: 48pm Obesity (BMI 30.0-34.9) March 03 9:48pm AARON (obstructive sleep apnea) February 9:48pm Rhabdomyolysis March 03, 2025 9: 48pm History of non-ST elevation myocardial i nfarction (NSTEMI) March 03, 2025 9:48pm Chief Complaint Admit Date SEVERE LUZ MARIA, MYOTOXICITY AFTER EXERTION I N HEAT, March 03, 2025 9:48pm SEVERE LUZ MARIA, MYOTOXICITY AFTER EXERTION I N HEAT, March 04, 2025 10:47am SEVERE LUZ MARIA, MYOTOXICITY AFTER EXERTION I N HEAT, March 05, 2025 9:52am ABNORMAL LABS March 10, 2025 5: 30pm Reason for Visit Admit Date Adverse drug reaction March 03, 2025 9:48pm Hepatic steatosis March 03, 2025 9: 48pm Leukocytosis March 03, 2025 9: 48pm Obesity (BMI 30.0-34.9) March 03 9:48pm AARON (obstructive sleep apnea) February 9:48pm LUZ MARIA (acute kidney injury) March 03, 025 9:48pm Diarrhea March 03, 2025 9: 48pm History of non-ST elevation myocardial i nfarction (NSTEMI) March 03, 2025 9:48pm Hyponatremia March 03, 2025 9: 48pm Rhabdomyolysis March 03, 2025 9: 48pm Encounter for screening colonoscopy Sept 2024 8:43am Family history of malignant neoplasm of colon in father March 29, 2025 8:43am Heartburn March 29, 2025 8:43am Alcohol abuse March 29, 2025 8:43am Health Concerns Infection Onset Date Last Indicated Resolved Time COVID-19 Rule-Out 06/05/2022 06/05/2022 Reason for Referral Specialty Diagnoses / Procedures Referred By Contac t Referred To Contact Gastroenterology Diagnoses Screening for colon cancer Procedures CONSULT TO GASTROENTEROLOGY OFFICE/OUTPATIENT [facility] 60 MINUTES Alma Delia Garza, GUEST SERVICE TEAM LEADER.GORE STITCHER [address] [place] [address] Referral ID Status Reason Start Date Expiration Date Visits Requested Visits Authorized [id number] Authorized PCP Requested Referral 06/22/2024 06/22/2025 1 1 Specialty Diagnoses / Procedures Referred By Contac t Referred To Contact Orthopedics Diagnoses Injury of right elbow, initial encounter Procedures CONSULT TO ORTHOPAEDICS OFFICE/OUTPATIENT [facility] 60 MINUTES Desmond Duncan, GUEST SERVICE TEAM LEADER.GORE STITCHER [address] [place] [address] Referral ID Status Reason Start Date Expiration Date Visits Requested Visits Authorized [id number] Authorized PCP Requested Referral 07/09/2025 1 1 Specialty Diagnoses / Procedures Referred By Contac t Referred To Contact XR IMAGING Diagnoses Injury of right elbow, initial encounter Procedures XR ELBOW SPECIAL VIEWS AP/LAT/OTHER RIGHT RADEX ELBOW COMPLETE MINIMUM 3 VIEWS Desmond Duncan, GUEST SERVICE TEAM LEADER.GORE STITCHER [address] [place] [address] [place] [id number] Referral ID Status Reason Start Date Expiration Date V isits Requested Visits Authorized [id number] Closed Auto-Generate d Referral 07/09/2024 08/08/2025 1 1 Specialty Diagnoses / Procedures Referred By Corbin t Referred To Contact Cardiology Diagnoses Hx of non-ST elevation myocardial infarction (NSTEMI) Procedures CONSULT TO CARDIOLOGY OFFICE/OUTPATIENT [facility] MDM 60 MINUTES Keren Kwon APRN.GORE STITCHER [address] [place] [address] Referral ID Status Reason Start Date Expiration Date Visits Requested Visits Authorized [id number] Authorized PCP Requested Referral 08/24/2024 08/24/2025 1 1 Additional Source Comments (unrecognized sect ion and content) No Status Records FoundNo Status Records FoundNo Status Records FoundNo Status Records FoundNo Status Records Found INFORMATION SOURCE (unrecogn ized section and content) DATE CREATED AUTHOR 01/10/2018 [facility] DATE CREATED AUTHOR AUTHOR'S ORGANIZ ATION 01/10/2018 [facility] DATE CREATED AUTHOR AUTHOR'S ORGANIZ ATION 03/11/2025 [facility] nt DATE CREATED AUTHOR AUTHOR'S ORGANIZ ATION 03/15/2025 [facility] DATE CREATED AUTHOR AUTHOR'S ORGANIZ ATION 05/07/2025 [facility] Source Comments (unrecognize d section and content) In the event this informatio n is protected by the Federal Confidentiality of Alcohol and Drug Abuse Patient Records regulations: The Federal rules restrict any use of the information to criminally investigate or prosecute any alcohol or drug abuse patient.[facility] the event this information is protected by the Federal Confidentiality of Alcohol and Drug Abuse Patient Records regulations: The Federal rules restrict any use of the information to criminally investigate or prosecute any alcohol or drug abuse patient.[facility] HospitalIn the event this information is protected by the Federal Confidentiality of Alcohol and Drug Abuse Patient Records regulations: The Federal rules restrict any use of the information to criminally investigate or prosecute any alcohol or drug abuse patient.[facility] HospitalIn the event this information is protected by the Federal Confidentiality of Alcohol and Drug Abuse Patient Records regulations: The Federal rules restrict any use of the information to criminally investigate or prosecute any alcohol or drug abuse patient.[facility] HospitalIn the event this information is protected by the Federal Confidentiality of Alcohol and Drug Abuse Patient Records regulations: The Federal rules restrict any use of the information to criminally investigate or prosecute any alcohol or drug abuse patient.[facility] HospitalIn the event this information is protected by the Federal Confidentiality of Alcohol and Drug Abuse Patient Records regulations: The Federal rules restrict any use of the information to criminally investigate or prosecute any alcohol or drug abuse patient.[facility] HospitalIn the event this information is protected by the Federal Confidentiality of Alcohol and Drug Abuse Patient Records regulations: The Federal rules restrict any use of the information to criminally investigate or prosecute any alcohol or drug abuse patient.[facility] HospitalIn the event this information is protected by the Federal Confidentiality of Alcohol and Drug Abuse Patient Records regulations: The Federal rules restrict any use of the information to criminally investigate or prosecute any alcohol or drug abuse patient.[facility] HospitalIn the event this information is protected by the Federal Confidentiality of Alcohol and Drug Abuse Patient Records regulations: The Federal rules restrict any use of the information to criminally investigate or prosecute any alcohol or drug abuse patient.[facility] HospitalIn the event this information is protected by the Federal Confidentiality of Alcohol and Drug Abuse Patient Records regulations: The Federal rules restrict any use of the information to criminally investigate or prosecute any alcohol or drug abuse patient.[facility] HospitalIn the event this information is protected by the Federal Confidentiality of Alcohol and Drug Abuse Patient Records regulations: The Federal rules restrict any use of the information to criminally investigate or prosecute any alcohol or drug abuse patient.[facility] HospitalIn the event this information is protected by the Federal Confidentiality of Alcohol and Drug Abuse Patient Records regulations: The Federal rules restrict any use of the information to criminally investigate or prosecute any alcohol or drug abuse patient.[facility] HospitalIn the event this information is protected by the Federal Confidentiality of Alcohol and Drug Abuse Patient Records regulations: The Federal rules restrict any use of the information to criminally investigate or prosecute any alcohol or drug abuse patient.[facility] HospitalIn the event this information is protected by the Federal Confidentiality of Alcohol and Drug Abuse Patient Records regulations: The Federal rules restrict any use of the information to criminally investigate or prosecute any alcohol or drug abuse patient.[facility] HospitalIn the event this information is protected by the Federal Confidentiality of Alcohol and Drug Abuse Patient Records regulations: The Federal rules restrict any use of the information to criminally investigate or prosecute any alcohol or drug abuse patient.[facility] HospitalIn the event this information is protected by the Federal Confidentiality of Alcohol and Drug Abuse Patient Records regulations: The Federal rules restrict any use of the information to criminally investigate or prosecute any alcohol or drug abuse patient.[facility] HospitalIn the event this information is protected by the Federal Confidentiality of Alcohol and Drug Abuse Patient Records regulations: The Federal rules restrict any use of the information to criminally investigate or prosecute any alcohol or drug abuse patient.[facility] HospitalIn the event this information is protected by the Federal Confidentiality of Alcohol and Drug Abuse Patient Records regulations: The Federal rules restrict any use of the information to criminally investigate or prosecute any alcohol or drug abuse patient.[facility] HospitalIn the event this information is protected by the Federal Confidentiality of Alcohol and Drug Abuse Patient Records regulations: The Federal rules restrict any use of the information to criminally investigate or prosecute any alcohol or drug abuse patient.[facility] HospitalIn the event this information is protected by the Federal Confidentiality of Alcohol and Drug Abuse Patient Records regulations: The Federal rules restrict any use of the information to criminally investigate or prosecute any alcohol or drug abuse patient.[facility] HospitalIn the event this information is protected by the Federal Confidentiality of Alcohol and Drug Abuse Patient Records regulations: The Federal rules restrict any use of the information to criminally investigate or prosecute any alcohol or drug abuse patient.[facility] HospitalIn the event this information is protected by the Federal Confidentiality of Alcohol and Drug Abuse Patient Records regulations: The Federal rules restrict any use of the information to criminally investigate or prosecute any alcohol or drug abuse patient.[facility] HospitalIn the event this information is protected by the Federal Confidentiality of Alcohol and Drug Abuse Patient Records regulations: The Federal rules restrict any use of the information to criminally investigate or prosecute any alcohol or drug abuse patient.[facility] HospitalIn the event this information is protected by the Federal Confidentiality of Alcohol and Drug Abuse Patient Records regulations: The Federal rules restrict any use of the information to criminally investigate or prosecute any alcohol or drug abuse patient.[facility] HospitalIn the event this information is protected by the Federal Confidentiality of Alcohol and Drug Abuse Patient Records regulations: The Federal rules restrict any use of the information to criminally investigate or prosecute any alcohol or drug abuse patient.[facility] HospitalIn the event this information is protected by the Federal Confidentiality of Alcohol and Drug Abuse Patient Records regulations: The Federal rules restrict any use of the information to criminally investigate or prosecute any alcohol or drug abuse patient.[facility] HospitalIn the event this information is protected by the Federal Confidentiality of Alcohol and Drug Abuse Patient Records regulations: The Federal rules restrict any use of the information to criminally investigate or prosecute any alcohol or drug abuse patient.[facility] HospitalIn the event this information is protected by the Federal Confidentiality of Alcohol and Drug Abuse Patient Records regulations: The Federal rules restrict any use of the information to criminally investigate or prosecute any alcohol or drug abuse patient.[facility] HospitalIn the event this information is protected by the Federal Confidentiality of Alcohol and Drug Abuse Patient Records regulations: The Federal rules restrict any use of the information to criminally investigate or prosecute any alcohol or drug abuse patient.[facility] HospitalIn the event this information is protected by the Federal Confidentiality of Alcohol and Drug Abuse Patient Records regulations: The Federal rules restrict any use of the information to criminally investigate or prosecute any alcohol or drug abuse patient.[facility] HospitalIn the event this information is protected by the Federal Confidentiality of Alcohol and Drug Abuse Patient Records regulations: The Federal rules restrict any use of the information to criminally investigate or prosecute any alcohol or drug abuse patient.[facility] HospitalIn the event this information is protected by the Federal Confidentiality of Alcohol and Drug Abuse Patient Records regulations: The Federal rules restrict any use of the information to criminally investigate or prosecute any alcohol or drug abuse patient.[facility] HospitalIn the event this information is protected by the Federal Confidentiality of Alcohol and Drug Abuse Patient Records regulations: The Federal rules restrict any use of the information to criminally investigate or prosecute any alcohol or drug abuse patient.[facility] HospitalIn the event this information is protected by the Federal Confidentiality of Alcohol and Drug Abuse Patient Records regulations: The Federal rules restrict any use of the information to criminally investigate or prosecute any alcohol or drug abuse patient.[facility] HospitalIn the event this information is protected by the Federal Confidentiality of Alcohol and Drug Abuse Patient Records regulations: The Federal rules restrict any use of the information to criminally investigate or prosecute any alcohol or drug abuse patient.[facility] HospitalIn the event this information is protected by the Federal Confidentiality of Alcohol and Drug Abuse Patient Records regulations: The Federal rules restrict any use of the information to criminally investigate or prosecute any alcohol or drug abuse patient.[facility] HospitalIn the event this information is protected by the Federal Confidentiality of Alcohol and Drug Abuse Patient Records regulations: The Federal rules restrict any use of the information to criminally investigate or prosecute any alcohol or drug abuse patient.[facility] HospitalIn the event this information is protected by the Federal Confidentiality of Alcohol and Drug Abuse Patient Records regulations: The Federal rules restrict any use of the information to criminally investigate or prosecute any alcohol or drug abuse patient.[facility] HospitalIn the event this information is protected by the Federal Confidentiality of Alcohol and Drug Abuse Patient Records regulations: The Federal rules restrict any use of the information to criminally investigate or prosecute any alcohol or drug abuse patient.[facility] HospitalIn the event this information is protected by the Federal Confidentiality of Alcohol and Drug Abuse Patient Records regulations: The Federal rules restrict any use of the information to criminally investigate or prosecute any alcohol or drug abuse patient.[facility] ClinicIn the event this information is protected by the Federal Confidentiality of Alcohol and Drug Abuse Patient Records regulations: The Federal rules restrict any use of the information to criminally investigate or prosecute any alcohol or drug abuse patient.[facility] HospitalIn the event this information is protected by the Federal Confidentiality of Alcohol and Drug Abuse Patient Records regulations: The Federal rules restrict any use of the information to criminally investigate or prosecute any alcohol or drug abuse patient.[facility] HospitalIn the event this information is protected by the Federal Confidentiality of Alcohol and Drug Abuse Patient Records regulations: The Federal rules restrict any use of the information to criminally investigate or prosecute any alcohol or drug abuse patient.[facility] HospitalIn the event this information is protected by the Federal Confidentiality of Alcohol and Drug Abuse Patient Records regulations: The Federal rules restrict any use of the information to criminally investigate or prosecute any alcohol or drug abuse patient.[facility] HospitalIn the event this information is protected by the Federal Confidentiality of Alcohol and Drug Abuse Patient Records regulations: The Federal rules restrict any use of the information to criminally investigate or prosecute any alcohol or drug abuse patient.[facility] HospitalIn the event this information is protected by the Federal Confidentiality of Alcohol and Drug Abuse Patient Records regulations: The Federal rules restrict any use of the information to criminally investigate or prosecute any alcohol or drug abuse patient.[facility] HospitalIn the event this information is protected by the Federal Confidentiality of Alcohol and Drug Abuse Patient Records regulations: The Federal rules restrict any use of the information to criminally investigate or prosecute any alcohol or drug abuse patient.[facility] HospitalIn the event this information is protected by the Federal Confidentiality of Alcohol and Drug Abuse Patient Records regulations: The Federal rules restrict any use of the information to criminally investigate or prosecute any alcohol or drug abuse patient.[facility] HospitalIn the event this information is protected by the Federal Confidentiality of Alcohol and Drug Abuse Patient Records regulations: The Federal rules restrict any use of the information to criminally investigate or prosecute any alcohol or drug abuse patient.[facility] HospitalIn the event this information is protected by the Federal Confidentiality of Alcohol and Drug Abuse Patient Records regulations: The Federal rules restrict any use of the information to criminally investigate or prosecute any alcohol or drug abuse patient.[facility] HospitalIn the event this information is protected by the Federal Confidentiality of Alcohol and Drug Abuse Patient Records regulations: The Federal rules restrict any use of the information to criminally investigate or prosecute any alcohol or drug abuse patient.[facility] HospitalIn the event this information is protected by the Federal Confidentiality of Alcohol and Drug Abuse Patient Records regulations: The Federal rules restrict any use of the information to criminally investigate or prosecute any alcohol or drug abuse patient.[facility] HospitalIn the event this information is protected by the Federal Confidentiality of Alcohol and Drug Abuse Patient Records regulations: The Federal rules restrict any use of the information to criminally investigate or prosecute any alcohol or drug abuse patient.[facility] HospitalIn the event this information is protected by the Federal Confidentiality of Alcohol and Drug Abuse Patient Records regulations: The Federal rules restrict any use of the information to criminally investigate or prosecute any alcohol or drug abuse patient.[facility] HospitalIn the event this information is protected by the Federal Confidentiality of Alcohol and Drug Abuse Patient Records regulations: The Federal rules restrict any use of the information to criminally investigate or prosecute any alcohol or drug abuse patient.[facility] HospitalIn the event this information is protected by the Federal Confidentiality of Alcohol and Drug Abuse Patient Records regulations: The Federal rules restrict any use of the information to criminally investigate or prosecute any alcohol or drug abuse patient.[facility] Reason for Visit (unrecogniz ed section [...] cancer Procedures CONSULT TO GENERAL SURGERY OFFICE/OUTPATIENT [facility] 60 MINUTES Keren Kwon, GUEST SERVICE TEAM LEADER.GORE STITCHER [address] [place] [address] Referral ID Status Reason Start Date Expiration Date V isits Requested Visits Authorized [id number] Closed PCP Requested Referral 06/12/2024 06/12/2025 1 [...] ABDOMINAL REAL TIME W/IMAGE LIMITED Keren Kwon, GERARDO.GORE STITCHER [address] [place] [address] [place] [address] Referral ID Status Reason Start Date Expiration Date V isits Requested Visits Authorized [id number] Closed Auto-Generate d Referral 08/14/2024 09/13/2025 1 1 Reason Comments Recheck 1 week follow up Reason Comments Appointment Reason Comments Consult Elevated PSA Specialty Diagnoses / Procedures Referred By Contac t Referred To Contact Urology Diagnoses Elevated PSA Procedures CONSULT TO UROLOGY OFFICE/OUTPATIENT NEW [facility] MDM 60 MINUTES Keren Kwon, GERARDO.GORE STITCHER [address] [place] [address] Phone: tel: fax: Referral ID Status Reason Start Date Expiration Date V isits Requested Visits Authorized [id number] Closed PCP Requested Referral 08/12/2024 08/12/2025 1 1 Reason Comments Follow Up 4 week BP Reason Onset Date Comments Refill Request 09/29/2024 Reason Onset Date Comments Refill Request 10/02/2024 Reason Comments Right elbow pain Specialty Diagnoses / Procedures Referred By Contac t Referred To Contact Orthopedics Diagnoses Elbow pain, right Procedures CONSULT TO ORTHOPAEDICS OFFICE/OUTPATIENT NEW [facility] MDM 60 MINUTES Keren Kwon, GUEST SERVICE TEAM LEADER.GORE STITCHER [address] [place] [address] Phone: tel: fax: Referral ID Status Reason Start Date Expiration Date V isits Requested Visits Authorized [id number] Closed PCP Requested Referral 09/28/2024 09/28/2025 1 1 Reason Onset Date Comments Refill Request 11/24/2024 Reason Onset Date Comments Refill Request 12/22/2024 Reason Onset Date Comments Refill Request 01/19/2025 Reason Onset Date Comments Refill Request 02/01/2025 Reason Comments Flu Like Symptoms Upset stomach, dizzy and nausea, diarrhea x 3 days Reason Onset Date Comments Refill Request 03/07/2025 Reason Comments Hospital F/U [facility] follow up 03/03- dx: LUZ MARIA Reason Onset Date Comments Refill Request 03/16/2025 Care Teams (unrecognized sec tion and content) Wellness Nurse Rn Relationship Specialty Start Date End Date Keren Kwon, GUEST SERVICE TEAM LEADER.GORE STITCHER [address] [place] [address] PCP - General Family Practice 08/28/18 Wellness Nurse Rn Relationship Specialty Start Date End Date Keren Kwon, GUEST SERVICE TEAM LEADER.GORE STITCHER [address] [place] [address] PCP - General Family Practice 08/28/18 Wellness Nurse Rn Relationship Specialty Start Date End Date Keren Kwon, GUEST SERVICE TEAM LEADER.GORE STITCHER [address] [place] [address] PCP - General Family Practice 08/28/18 Wellness Nurse Rn Relationship Specialty Start Date End Date Keren Kwon, GUEST SERVICE TEAM LEADER.GORE STITCHER [address] [place] [address] PCP - General Family Practice 08/28/18 Wellness Nurse Rn Relationship Specialty Start Date End Date Keren Kwon, GUEST SERVICE TEAM LEADER.GORE STITCHER [address] [place] [address] PCP - General Family Practice 08/28/18 Wellness Nurse Rn Relationship Specialty Start Date End Date Keren Kwon, GUEST SERVICE TEAM LEADER.GORE STITCHER [address] [place] [address] PCP - General Family Practice 08/28/18 Wellness Nurse Rn Relationship Specialty Start Date End Date Keren Kwon, GUEST SERVICE TEAM LEADER.GORE STITCHER [address] [place] [address] PCP - General Family Practice 08/28/18 Wellness Nurse Rn Relationship Specialty Start Date End Date Keren Kwon, GUEST SERVICE TEAM LEADER.GORE STITCHER [address] [place] [address] PCP - General Family Practice 08/28/18 Wellness Nurse Rn Relationship Specialty Start Date End Date Keren Kwon, GUEST SERVICE TEAM LEADER.GORE STITCHER [address] [place] [address] PCP - General Family Practice 08/28/18 Wellness Nurse Rn Relationship Specialty Start Date End Date Keren Kwon, GUEST SERVICE TEAM LEADER.GORE STITCHER [address] [place] [address] PCP - General Family Medicine 08/28/18 Wellness Nurse Rn Relationship Specialty Start Date End Date Keren Kwon, GUEST SERVICE TEAM LEADER.GORE STITCHER [address] [place] [address] PCP - General Family Medicine 08/28/18 Wellness Nurse Rn Relationship Specialty Start Date End Date Keren Kwon, GUEST SERVICE TEAM LEADER.GORE STITCHER [address] [place] [address] PCP - General Family Medicine 08/28/18 Wellness Nurse Rn Relationship Specialty Start Date End Date Keren Kwon, GUEST SERVICE TEAM LEADER.GORE STITCHER [address] [place] [address] PCP - General Family Medicine 08/28/18 Team Status: Active Member Role Status Dates Keren Kwon PARTS PULLER, PARTS PULLER-C Family Provider Active Keren Kwon PARTS PULLER, PARTS PULLER-C Primary Care Provider Active Team Status: Inactive Member Role Status Dates Dr. Pema Yang MD Primary Care Provider, Refer ring Provider Active Min An PARTS PULLER, PARTS PULLER-C Active Vani Owen PARTS PULLER, PARTS PULLER-C Attending Provider Active Team Status: Inactive Member Role Status Dates Keren Kwon PARTS PULLER, PARTS PULLER-C Primary Care Provider, Referri ng Provider Active Dr. Alejandro Leon , Attending Provider Active Team Status: Inactive Member Role Status Dates Dr. Abdoulaye Wesley MD Attending Provider, Emergency Provider Active Keren Kwon PARTS PULLER, PARTS PULLER-C Primary Care Provider Active Team Status: Inactive Member Role Status Dates Keren Kwon PARTS PULLER, PARTS PULLER-C Primary Care Provider Active Dr. Alejandro Leon DO Attending Provider, Referring Pro vider Active Wellness Nurse Rn Relationship Specialty Start Date End Date Keren Kwon, GUEST SERVICE TEAM LEADER.GORE STITCHER [address] [place] [address] PCP - General Family Medicine 08/28/18 Team Status: Active Member Role Status Dates Vani Owen PARTS PULLER, PARTS PULLER-C Referring Provider, Other Provi silver Active Keren Kwon PARTS PULLER, PARTS PULLER-C Primary Care Provider Active Dr. Casey Brewer MD Attending Provider Active Team Status: Inactive Member Role Status Dates Vani Owen PARTS PULLER, PARTS PULLER-C Attending Provider, Referring P rovider Active Keern Kwon PARTS PULLER, PARTS PULLER-C Primary Care Provider Active Team Status: Inactive Member Role Status Dates Keren Kwon PARTS PULLER, PARTS PULLER-C Primary Care Provider, Referri ng Provider Active Dr. Casey Brewer MD Attending Provider Active Team Status: Active Member Role Status Dates Keren Kwon PARTS PULLER, PARTS PULLER-C Primary Care Provider Active Dr. Alejandro Leon , DO Referring Provider, Other Provide r Active Dr. Will Virk MD Attending Provider Active Wellness Nurse Rn Relationship Specialty Start Date End Date Keren Kwon, GUEST SERVICE TEAM LEADER.GORE STITCHER [address] [place] [address] PCP - General Family Medicine 08/28/18 Wellness Nurse Rn Relationship Specialty Start Date End Date NikolaiConory, GUEST SERVICE TEAM LEADER.GORE STITCHER [address] [place] [address] PCP - General Family Medicine 08/28/18 Team Status: Active Member Role Status Dates Keren Kwon PARTS PULLER, PARTS PULLER-C Primary Care Provider Active Dr. Maggy Tucker , Emergency Provider Active Dr. Lorena Bennett , DO Admit Provider, Attending Provide r Active Team Status: Active Member Role Status Dates Keren Kwon PARTS PULLER, PARTS PULLER-C Primary Care Provider Active Dr. Maggy Tucker , Emergency Provider Active Dr. Lorena Bennett , DO Admit Provider, Att ending Provider, Other Provider Active Team Status: Active Member Role Status Dates Keren Kwon PARTS PULLER, PARTS PULLER-C Primary Care Provider Active Dr. Maggy Tucker , Emergency Provider Active Dr. Lorena Bennett , DO Admit Provider, Other Provider Ac tive Dr. Shakeel Valera MD Attending Provider, Other Provider Active Team Status: Inactive Member Role Status Dates Keren Kwon PARTS PULLER, PARTS PULLER-C Primary Care Provider Active Dr. Maggy Tucker DO Emergency Provider Active Dr. Lorena Bennett DO Admit Provider, Other Provider Ac tive Dr. Shakeel Valera MD Attending Provider Active Team Status: Active Member Role Status Dates Keren Kwon PARTS PULLER, PARTS PULLER-C Family Provider Active No Primary Care Physician Primary Care Provider Active Team Status: Inactive Member Role Status Dates No Primary Care Physician Primary Care Provider Active Dr. Casey Brewer MD Attending Provider, Referring Pr ovider Active Wellness Nurse Rn Relationship Specialty Start Date End Date , GUEST SERVICE TEAM LEADER.GORE STITCHER [address] [place] [address] PCP - General Family Medicine 08/28/18 Wellness Nurse Rn Relationship Specialty Start Date End Date , GUEST SERVICE TEAM LEADER.GORE STITCHER [address] [place] [address] PCP - General Family Medicine 08/28/18 Wellness Nurse Rn Relationship Specialty Start Date End Date , GUEST SERVICE TEAM LEADER.GORE STITCHER [address] [place] [address] PCP - General Family Medicine 08/28/18 Wellness Nurse Rn Relationship Specialty Start Date End Date , GUEST SERVICE TEAM LEADER.GORE STITCHER [address] [place] [address] PCP - General Family Medicine 08/28/18 Wellness Nurse Rn Relationship Specialty Start Date End Date , Keren, GUEST SERVICE TEAM LEADER.GORE STITCHER [address] [place] [address] PCP - General Family Medicine 08/28/18 Wellness Nurse Rn Relationship Specialty Start Date End Date , Keren, GUEST SERVICE TEAM LEADER.GORE STITCHER [address] [place] [address] PCP - General Family Medicine 08/28/18 Kathe Pierre, GUEST SERVICE TEAM LEADER.GORE STITCHER [address] [facility] [place] [address] Salesperson [employer] Family Medicine 06/28/24 Mikhail Mancia MD [address] [facility] [place] [address] Salesperson [employer] Family Medicine 06/28/24 Wellness Nurse Rn Relationship Specialty Start Date End Date Keren Kwon APRN.GORE STITCHER [address] [facility] [place] [address] PCP - General Family Medicine 08/28/18 Kathe Pierre, GUEST SERVICE TEAM LEADER.GORE STITCHER [address] [place] [address] Salesperson [employer] [facility] 06/28/24 Mikhail Mancia MD [address] [facility] [place] [address] Salesperson [employer] Family [facility] 06/28/24 Wellness Nurse Rn Relationship Specialty Start Date End Date Keren Kwon, GUEST SERVICE TEAM LEADER.GORE STITCHER [address] [place] [address] PCP - General Family Medicine 08/28/18 Kathe Pierre, GUEST SERVICE TEAM LEADER.GORE STITCHER [address] [facility] [place] [address] Salesperson [employer] [facility] 06/28/24 Mikhail Mancia MD [address] [place] [address] Salesperson [employer] Family [facility] 06/28/24 Wellness Nurse Rn Relationship Specialty Start Date End Date Keren Kwon, GUEST SERVICE TEAM LEADER.GORE STITCHER [address] [place] [address] PCP - General Family Medicine 08/28/18 Kathe Pierre, GUEST SERVICE TEAM LEADER.GORE STITCHER [address] [facility] [place] [address] Salesperson [employer] Family [facility] 06/28/24 Mikhail Mancia MD [address] [facility] [place] [address] Salesperson [employer] [facility] 06/28/24 Wellness Nurse Rn Relationship Specialty Start Date End Date Keren Kwon, GUEST SERVICE TEAM LEADER.GORE STITCHER [address] [facility] [place] [address] PCP - General Family Medicine 08/28/18 Kathe Pierre, GUEST SERVICE TEAM LEADER.GORE STITCHER [address] [facility] [place] [address] Salesperson [employer] Family [facility] 06/28/24 Mikhail Mancia MD [address] [facility] [place] [address] Salesperson [employer] Family [facility] 06/28/24 Wellness Nurse Rn Relationship Specialty Start Date End Date Keren Kwon, GUEST SERVICE TEAM LEADER.GORE STITCHER [address] [facility] [place] [address] PCP - General Family Medicine 08/28/18 Kathe Pierre, GUEST SERVICE TEAM LEADER.GORE STITCHER [address] [facility] [place] [address] Salesperson [employer] [facility] 06/28/24 Mikhail Mancia MD [address] [place] [address] Salesperson [employer] Family Medicine 06/28/24 Wellness Nurse Rn Relationship Specialty Start Date End Date Keren Kwon APRN.GORE STITCHER [address] [place] [address] PCP - General Family Medicine 08/28/18 Kathe Pierre APRN.GORE STITCHER [address] [place] [address] Salesperson [employer] Family Medicine 06/28/24 Mikhail Mancia MD [address] [place] [address] [facility] 06/28/24 Wellness Nurse Rn Relationship Specialty Start Date End Date Keren Kwon APRN.GORE STITCHER [address] [place] [address] PCP - General Family Medicine 08/28/18 Kathe Pierre APRN.GORE STITCHER [address] [place] [address] Salesperson [employer] Family Medicine 06/28/24 Mikhail Mancia MD [address] [place] [address] [facility]person [facility] 06/28/24 Wellness Nurse Rn Relationship Specialty Start Date End Date Keren Kwon APRN.GORE STITCHER [address] [place] [address] PCP - General Family Medicine 08/28/18 Kathe Pierre APRN.GORE STITCHER [address] [place] [address] Salesperson [employer] Family Medicine 06/28/24 Mikhail Mancia MD [address] [facility] [place] [address] Salesperson [employer] Family [facility] 06/28/24 Wellness Nurse Rn Relationship Specialty Start Date End Date Keren Kwon APRN.GORE STITCHER [address] [place] [address] PCP - General Family Medicine 08/28/18 Kathe Pierre APRN.GORE STITCHER [address] [place] [address] Salesperson [employer] Family Medicine 06/28/24 Mikhail Mancia MD [address] [place] [address] Salesperson [employer] Family Medicine 06/28/24 Wellness Nurse Rn Relationship Specialty Start Date End Date Keren Kwon APRN.GORE STITCHER [address] [facility] [place] [address] PCP - General Family Medicine 08/28/18 Kathe Pierre GUEST SERVICE TEAM LEADER.GORE STITCHER [address] [place] [address] Salesperson [employer] Family Medicine 06/28/24 Mikhail Mancia MD [address] [place] [address] Salesperson [employer] Family [facility] 06/28/24 Wellness Nurse Rn Relationship Specialty Start Date End Date Keren Kwon APRN.GORE STITCHER [address] [place] [address] PCP - General Family Medicine 08/28/18 Kathe Pierre, GUEST SERVICE TEAM LEADER.GORE STITCHER [address] [facility] [place] [address] Salesperson [employer] Family Medicine 06/28/24 Mikhail Mancia MD [address] [facility] [place] [address] Salesperson [employer] Family [facility] 06/28/24 Wellness Nurse Rn Relationship Specialty Start Date End Date Keren Kwon APRN.GORE STITCHER [address] [facility] [place] [address] PCP - General Family Medicine 08/28/18 Kathe Pierre, GUEST SERVICE TEAM LEADER.GORE STITCHER [address] [place] [address] Salesperson [employer] Family Medicine 06/28/24 Mikhail Mancia MD [address] [facility] [place] [address] [facility]person [facility] 06/28/24 Wellness Nurse Rn Relationship Specialty Start Date End Date Keren Kown, GUEST SERVICE TEAM LEADER.GORE STITCHER [address] [facility] [place] [address] PCP - General Family Medicine 08/28/18 Kathe Pierre GUEST SERVICE TEAM LEADER.GORE STITCHER [address] [facility] [place] [address] [facility] Family Medicine 06/28/24 Mikhail Mancia MD [address] [facility] [place] [address] Salesperson [employer] Family Medicine 06/28/24 Wellness Nurse Rn Relationship Specialty Start Date End Date Keren Kwon, GUEST SERVICE TEAM LEADER.GORE STITCHER [address] [place] [address] PCP - General Family Medicine 08/28/18 Kathe Pierre, GUEST SERVICE TEAM LEADER.GORE STITCHER [address] [place] [address] Salesperson [employer] [facility] 06/28/24 Mikhail Mancia MD [address] [place] [address] Salesperson [employer] Family Medicine 06/28/24 Wellness Nurse Rn Relationship Specialty Start Date End Date Keren Kwon, GUEST SERVICE TEAM LEADER.GORE STITCHER [address] [place] [address] PCP - General Family Medicine 08/28/18 Kathe Pierre, GUEST SERVICE TEAM LEADER.GORE STITCHER [address] [facility] [place] [address] Salesperson [employer] Family Medicine 06/28/24 Mikhail Mancia MD [address] [place] [address] Salesperson [employer] Family Medicine 06/28/24 Wellness Nurse Rn Relationship Specialty Start Date End Date Keren Kwon, GUEST SERVICE TEAM LEADER.GORE STITCHER [address] [place] [address] PCP - General Family Medicine 08/28/18 Kathe Pierre, GUEST SERVICE TEAM LEADER.GORE STITCHER [address] [place] [address] Salesperson [employer] Family Medicine 06/28/24 Mikhail Mancia MD [address] [place] [address] Salesperson [employer] Family Medicine 06/28/24 Wellness Nurse Rn Relationship Specialty Start Date End Date Keren Kwon APRN.GORE STITCHER [address] [place] [address] PCP - General Family Medicine 08/28/18 Kathe Pierre APRN.GORE STITCHER [address] [place] [address] Salesperson [employer] Family Medicine 06/28/24 Mikhail Mancia MD [address] [place] [address] Salesperson [employer] Family Medicine 06/28/24 Wellness Nurse Rn Relationship Specialty Start Date End Date Keren Kwon APRN.GORE STITCHER [address] [place] [address] PCP - General Family Medicine 08/28/18 Kathe Pierre APRN.GORE STITCHER [address] [place] [address] Salesperson [employer] Family Medicine 06/28/24 Mikhail Mancia MD [address] [place] [address] Salesperson [employer] Family Medicine 06/28/24 Wellness Nurse Rn Relationship Specialty Start Date End Date Keren Kwon GUEST SERVICE TEAM LEADER.GORE STITCHER [address] [place] [address] PCP - General Family Medicine 08/28/18 Kathe Pierre APRN.GORE STITCHER [address] [place] [address] Salesperson [employer] Family Medicine 06/28/24 Mikhail Mancia MD [address] [place], [place] [address] Salesperson [employer] Family Medicine 06/28/24 Wellness Nurse Rn Relationship Specialty Start Date End Date Keren Kwon APRN.GORE STITCHER [address] [place] [address] PCP - General Family Medicine 08/28/18 Wellness Nurse Rn Relationship Specialty Start Date End Date Keren Kwon APRN.GORE STITCHER [address] [place] [address] PCP - General Family Medicine 08/28/18 Kathe Pierre GUEST SERVICE TEAM LEADER.GORE STITCHER [address] [place] [address] Salesperson [employer] Family Medicine 06/28/24 10/12/24 Mikhail Mancia MD [address] [place] [address] Salesperson [employer] Family Medicine 06/28/24 10/12/24 Wellness Nurse Rn Relationship Specialty Start Date End Date Keren Kwon, GUEST SERVICE TEAM LEADER.GORE STITCHER [address] [place] [address] PCP - General Family Medicine 08/28/18 Wellness Nurse Rn Relationship Specialty Start Date End Date Keren Kwon GUEST SERVICE TEAM LEADER.GORE STITCHER [address] [place] [address] PCP - General Family Medicine 08/28/18 Wellness Nurse Rn Relationship Specialty Start Date End Date Keren Kwon, GUEST SERVICE TEAM LEADER.GORE STITCHER [address] [place] [address] PCP - General Family Medicine 08/28/18 Team Status: Active Member Role/Relationship Status Dates Keren Kwon PARTS PULLER, PARTS PULLER-C Primary Care Provider Active Team Status: Active Member Role/Relationship Status Dates Keren Kwon PARTS PULLER, PARTS PULLER-C Primary Care Provider Active Start: March 03, 2025 Dr. Jake Mcdonough DO Emergency Provider Active Start : March 03, 2025 Dr. Michela Murillo DO Admit Provider Active Start: March 03, 2025 Dr. Michela Murillo DO Attending Provider Active Start: March 03, 2025 Team Status: Inactive Member Role/Relationship Status Dates Keren Kwon PARTS PULLER, PARTS PULLER-C Primary Care Provider Active Start: March 03, 2025 End: March 05, 2025 Dr. Jake Mcdonough DO Emergency Provider Active Start : March 03, 2025 End: March 05, 2025 Dr. Michela Murillo DO Admit Provider Active Start: March 03, 2025 End: March 05, 2025 Dr. Michela Murillo DO Other Provider Active Start: March 03, 2025 End: March 05, 2025 Dr. Jatin Mcgraw MD Attending Provider Active Start: March 03, 2025 End: March 05, 2025 Team Status: Active Member Role/Relationship Status Dates Keren Kwon PARTS PULLER, PARTS PULLER-C Primary Care Provider Active Start: March 04, 2025 Dr. Jake Mcdonough DO Emergency Provider Active Start : March 04, 2025 Dr. Michela Murillo DO Admit Provider Active Start: March 04, 2025 Dr. Michela Murillo DO Other Provider Active Start: March 04, 2025 Dr. Jatin Mcgraw MD Attending Provider Active Start: March 04, 2025 Dr. Jatin Mcgraw MD Other Provider Active Sta rt: March 04, 2025 Wellness Nurse Rn Relationship Specialty Start Date End Date Keren Kwon APRN.GORE STITCHER [address] [place] [address] PCP - General Family Medicine 08/28/18 Team Status: Active Member Role/Relationship Status Dates Keren Kwon PARTS PULLER, PARTS PULLER-C Primary Care Provider Active Start: March 05, 2025 Dr. Jake Mcdonough , Emergency Provider Active Start : March 05, 2025 Dr. Michela Murillo , Admit Provider Active Start: March 05, 2025 Dr. Michela Murillo , Other Provider Active Start: March 05, 2025 Dr. Jatin Mcgraw MD Attending Provider Active Start: March 05, 2025 Dr. Jatin Mcgraw MD Other Provider Active Sta rt: March 05, 2025 Team Status: Inactive Member Role/Relationship Status Dates Keren Kwon PARTS PULLER, PARTS PULLER-C Primary Care Provider Active Start: March 10, 2025 End: March 10, 2025 Dr. Little Gutierrez DO Emergency Provider Active S tart: March 10, 2025 End: March 10, 2025 Wellness Nurse Rn Relationship Specialty Start Date End Date Keren Kwon APRN.GORE STITCHER [address] [place] [address] PCP - General Family Medicine 08/28/18 Team Status: Inactive Member Role/Relationship Status Dates Keren Kwon PARTS PULLER, PARTS PULLER-C Primary Care Provider Active Start: March 10, 2025 End: March 10, 2025 Dr. Little Gutierrez DO Attending Provider Active S tart: March 10, 2025 End: March 10, 2025 Dr. Little Gutierrez DO Emergency Provider Active S tart: March 10, 2025 End: March 10, 2025 Team Status: Inactive Member Role/Relationship Status Dates Keren Kwon PARTS PULLER, PARTS PULLER-C Primary Care Provider Active Start: March 29, 2025 End: March 29, 2025 Keren Kwon PARTS PULLER, PARTS PULLER-C Referring Provider Active Start: March 29, 2025 End: March 29, 2025 Dr. Julius Lovell DO Attending Provider Active Start: March 29, 2025 End: March 29, 2025 Team Status: Active Member Role/Relationship Status Dates Keren Kwon PARTS PULLER, PARTS PULLER-C Primary Care Provider Active Start: March 29, 2025 Keren Kwon PARTS PULLER, PARTS PULLER-C Referring Provider Active Start: March 29, 2025 Dr. Julius Lovell DO Attending Provider Active Start: March 29, 2025 Dr. Madrid Friend , DO Other Provider Active St art: March 29, 2025 Goals (unrecognized section and content) Goals may [...] BE BASED ON THE PRIMARY CLINICAL RECORDS. [facility] [email or web address] [facility]. provides no warranty or guarantee of the accuracy or completeness of information in this document.
== END | disposition home or self-care (01) ==
LOC: MTRAD 16:31
PROVIDERS: PCP Registered Nurse; Referring Provider Physician Assistant; Visit Provider Physician Assistant
DX: R06.02 Shortness of breath (principal)
CPT/HCPCS: 71046

== ENCOUNTER 2025-05-20 09:45 | Emergency (ER) | payer MEDICAID, SELFPAY ==
[2017-11-21 12:50] VITALS: BMI 32.3
[2025-05-20] VITALS (7 sets, daily range): BP systolic 122–143; BP diastolic 86–108; PULSE 89–106; RESP 10–25; TEMP 36.7–36.9; O2SAT 95–100; BMI 28.3
--- NOTE | 2025-05-20 10:22 | RAD_ITS ---
PROCEDURE: RAD/Chest PA and Lateral
--- NOTE | 2025-05-20 10:22 | EKG12_ITS ---
Test Reason : SOB
--- NOTE | 2025-05-20 10:36 | EX.ED.DYSGE1 ---
HPI History of Present Illness Chief Complaint: General Illness Narrative Narrative: Patient is a 59-year-old male past medical history of hyponatremia, anxiety, GERD, AARON, TIA, alcohol use, thrombocytopenia, chronic kidney disease, CAD, COPD who presented to the emergency department the chief complaint of overall not feeling well. He states that he was diagnosed with COVID earlier in the month and notes that he has been feeling unwell and progressively worsening as time went on. He states that in triage note that his cat brought in a chipmunk and is concerned that he is inhaling ammonia he states that he lives alone. He states that given that he is feeling worse he decided to come here to be further evaluated. [facility] Medical History Wears glasses Hyponatremia Rhabdomyolysis Personal history of colon polyps, unspecified Family history of malignant neoplasm of colon in father Anxiety Kidney disease GERD (gastroesophageal reflux disease) GI bleed Sleep apnea Former smoker Asthma Irregular heart beat Myocardial infarct TIA (transient ischemic attack) Abdominal pain Alcohol withdrawal Acute dehydration Nausea & vomiting Dehydration Alcoholic hepatitis Thrombocytopenia LUZ MARIA (acute kidney injury) Alcohol withdrawal Carotid artery disease Chronic kidney disease History of non-ST elevation myocardial infarction (NSTEMI) Coronary artery disease COPD (chronic obstructive pulmonary disease) Lung nodule Tobacco use WILSON (dyspnea on exertion) Fatigue Chest pain Heart failure COPD exacerbation Hypoxia Community acquired pneumonia Alcohol intoxication Suicidal ideation Atherosclerosis of coronary artery of [place] heart without angina pectoris Depression NSTEMI (non-ST elevated myocardial infarction) Obesity (BMI 30.0-34.9) Hyperlipidemia Hypertension Alcohol abuse Chest pain Home Medications ?Medication ?Instructions ?Recorded ?Last Taken ?Type omeprazole 20 mg capsule,delayed 20 mg PO DAILY heart burn 06/17/14 03/29/25 06:30 History release nitroglycerin 0.4 mg sublingual 0.4 mg sublingual Q5M PRN Chest 12/24/22 Unknown Rx tablet Pain #25 tabs cyclobenzaprine 10 mg tablet 10 mg PO DAILY PRN Pain 10/14/23 Unknown History folic acid 1 mg tablet 1 mg PO DAILY 10/14/23 Unknown History magnesium oxide 400 mg (241.3 mg 400 mg PO DAILY 10/14/23 Unknown History magnesium) tablet thiamine HCl (vitamin B1) 100 mg 100 mg PO DAILY 10/14/23 Unknown History tablet buspirone 7.5 mg tablet 7.5 mg PO TID 09/29/24 03/29/25 06:30 History carvedilol 25 mg tablet 25 mg PO BID 09/29/24 03/28/25 History lisinopril 10 mg tablet 10 mg PO QDAY 09/29/24 Unknown History Held on 03/05/25. Instructions: Hold for week follow-up with [facility] PCP before resumption. trazodone 50 mg tablet 100 mg PO QHS 09/29/24 Unknown History aspirin 81 mg tablet,delayed 81 mg PO DAILY heart #90 tabs 10/27/24 03/25/25 Rx release atorvastatin 40 mg tablet 40 mg PO QHS #90 tabs 10/27/24 Unknown Rx Held on 03/05/25. Instructions: Hold for 7 days cyanocobalamin (vitamin B-12) 100 100 mcg PO DAILY 01/28/25 Unknown History mcg tablet (Vitamin B-12) multivitamin (Daily Multi-Vitamin 1 tab PO DAILY 01/28/25 Unknown History tablet) benzonatate 200 mg capsule 200 mg PO TID PRN cough #20 caps 05/05/25 Unknown Rx dexamethasone 6 mg tablet 6 mg PO DAILY #5 tabs 05/05/25 Unknown Rx ondansetron HCl 4 mg tablet 4 mg PO Q8H PRN nausea and 05/05/25 Unknown Rx vomiting #7 tabs azithromycin 250 mg tablet See Rx Instructions PO .COMPLEX #6 05/11/25 Unknown Rx tabs dexamethasone 6 mg tablet 6 mg PO DAILY #5 tabs 05/11/25 Unknown Rx cephalexin 500 mg capsule 500 mg PO BID #10 caps 05/20/25 Unknown Rx ondansetron 4 mg disintegrating 4 mg PO Q6H PRN nausea and 05/20/25 Unknown Rx tablet vomiting #20 tabs Allergy/AdvReac Type Severity Reaction Status Date / Time No Known Allergies Allergy Verified 05/20/25 09:49 Family History Mother CAD (coronary artery disease) Father CAD (coronary artery disease) Colon cancer, Onset Age: 53 At 53yrs Brother CAD (coronary artery disease) Myocardial infarction Sister CAD (coronary artery disease) Surgical History Hx of colonoscopy History of coronary artery stent placement Stented coronary artery History of tonsillectomy Hx of eye surgery Social History household members: significant other housing: apartment current occupational status: employed current occupation: [employer] Smoking Status: Former smoker alcohol intake: current alcohol intake frequency: 3 or more drinks per day substance use type: former substance user caffeine: Yes Type: coffee Number of servings: 2 what type of physical activity do you participate in: none ROS ROS ED ROS Narrative Constitutional: Complains of diffuse bodyaches and chills denies any fevers, headaches, dizziness Eyes: Denies double vision blurry vision Cardiovascular: Denies chest pain or palpitations Respiratory: Complains of cough Abdomen: Denies nausea vomit diarrhea : Denies urinary symptoms Neurological: Denies numbness, weakness, tingling Musculoskeletal: Denies back pain Skin: Denies any rashes or lesions EXAM Physical Exam Narrative Exam Narrative: General: Patient was lying in bed did appear to be uncomfortable and not feeling well overall Head: Atraumatic, normocephalic Eyes: PERRL bilaterally, EOMI bilaterally, no conjunctival injection noted Neck: Soft, supple, trachea midline Cardiovascular: Patient tachycardic with a regular rhythm Respiratory: Clear to auscultation bilaterally Abdomen: Soft, nondistended, no tenderness to palpation Extremities: +5/5 strength noted to bilateral lower extremities Neurological: Patient following commands knew that he was at [facility] years 2024 Skin: Warm, dry, intact no rashes or lesions noted Const Vital Signs: 05/20/25 09:46 05/20/25 10:43 05/20/25 10:43 Temperature 98.1 F Temperature Source Oral Pulse Rate 106 H Respiratory Rate 22 H Respiratory Effort Normal Non-Labored Respiratory Pattern Normal Blood Pressure 133/108 H Blood Pressure Mean 116 Pulse Ox 100 100 Oxygen Delivery Method Room Air Room Air 05/20/25 10:45 05/20/25 11:00 05/20/25 12:00 Temperature 98.2 F 98.1 F 98.4 F Temperature Source Oral Oral Oral Pulse Rate 92 96 90 Respiratory Rate 13 25 H 10 L Respiratory Effort Respiratory Pattern Blood Pressure 122/88 H 136/86 H 134/90 H Blood Pressure Mean 99 102 104 Pulse Ox 100 100 100 Oxygen Delivery Method Room Air Room Air Room Air MDM MDM MDM Narrative Medical decision making narrative: Patient is a 59-year-old male who presents to the emergency department the chief complaint of generalized not feeling well. On the differential diagnose includes but not limited to pneumonia, pneumothorax, COPD exacerbation, upper respiratory infection secondary viral etiology, electrolyte normality, ACS. Once workup is obtained and reviewed he will be reevaluated. Patient will be given 30 cc/kg bolus of IV fluids based on ideal body weight cell 2500 mL were ordered at 10:25 AM. Patient's CBC was reviewed and showed no evidence of leukocytosis white blood count normal at 10.6, he was 16.1, platelet count was noted be 112. Patient's INR normal at 1, PT of 13.6. Patient sodium was 129, potassium was 5.2, creatinine was 1.44 he is underlying chronic kidney disease this appears to be around his baseline lactic acid normal at 1.5. Patient's total bilirubin noted be elevated at 4.06 AST and ALT elevated 94 and 168 respectively with a elevated alk phosphatase to 264 these have been elevated in the past but today is worse than normal. Patient does not have any tenderness to palpation on exam however. Patient's urinalysis reviewed and showed positive nitrates 25 leukocyte esterase 2+ bacteria however 0-5 white cells noted he does not have any urinary symptoms however we will give him a gram of Rocephin urine will be sent for culture he is spilling bilirubin and urobilinogen into his urine as well. This has happened in the past as well. I did add on a ultrasound of his right upper quadrant as well as a CT abdomen pelvis. Patient is EKG reviewed which showed sinus rhythm rate 97 bpm with FL interval of 146. This was compared to EKG from 03/03/2025 and was largely unchanged. Patient's ultrasound was reviewed which did not show any acute findings diffuse fatty infiltration of the liver liver measuring 17.[address] ab pelvis IV contrast reviewed and showed diffuse fatty infiltration of the liver small gallbladder polyp versus tiny gallstones however an ultrasound neither 1 of these were noted. Pancreatic calcifications in keeping with chronic pancreatitis. Sigmoid diverticulosis. Small bilateral inguinal hernias containing fat slightly worse on the right side diffuse bladder wall thickening. He does have a history of alcoholic hepatitis I discussed these results with the patient and he states that he is feeling much better and he would like to go home at this point in time. He will be given a prescription for Keflex and advised to follow-up on urine culture with his doctor. He will be given a prescription for Zofran ODT for nausea and vomiting. He was advised to have his liver enzymes repeated middle and next week by his primary care physician he is agreeable to this plan all question concerns answered he is discharged home in stable condition Lab Data Labs: Laboratory Results - last 24 hr 05/20/25 05/20/25 10:30 11:47 WBC 10.6 RBC 5.05 Hgb 16.1 Hct 46.0 MCV 91.1 MCH 31.9 MCHC 35.0 RDW Std Deviation 41.7 RDW Coeff of [place] 12.6 Plt Count 112 L MPV 9.3 Immature Gran % (Auto) 0.800 Neut % (Auto) 78.0 H Lymph % (Auto) 13.3 L [place] % (Auto) 6.9 Eos % (Auto) 0.8 Baso % (Auto) 0.2 Absolute Neuts (auto) 8.3 H Absolute Lymphs (auto) 1.41 Nucleated RBC % 0 PT 13.6 INR 1.0 APTT 23.7 L Sodium 129 L Potassium 5.2 H Chloride 92 L Carbon Dioxide 25.1 Anion Gap 12 BUN 29 H Creatinine 1.44 H Estim Creat Clear Calc 62.92 Est GFR (MDRD) Non-Af 56 L BUN/Creatinine Ratio 20.2 H Glucose 101 H Lactic Acid 1.5 Calcium 9.4 Total Bilirubin 4.06 H AST 94 H ALT 168 H Alkaline Phosphatase 264 H Total Protein 7.0 Albumin 4.2 Globulin 2.8 Albumin/Globulin Ratio 1.5 Urine Color [place] Urine Clarity Clear Urine pH 6.5 Ur Specific [place] 1.010 Urine Protein 30 H Urine Glucose (UA) Normal Urine Ketones 5 H Urine Occult Blood Negative Urine Nitrite Positive H Urine Bilirubin 3 H Urine Urobilinogen 8 H Ur Leukocyte Esterase 25 H Urine RBC 0 SEEN Urine WBC 0-5 SEEN Ur Squamous Epith Cells 0 SEEN Urine Bacteria 2+ Urine Mucus 0 SEEN Radiography Diagnostic Testing: Clinical Impression(s) from Imaging Studies Chest X-Ray 05/20/25 10:22 IMPRESSION: Lungs appear clear throughout, and unchanged. No evidence of pulmonary edema. No pleural effusion or pneumothorax is seen. The cardiomediastinal silhouette is within the normal range, and unchanged. Mild thoracic spine degenerative changes are seen. No acute osseous change is evident Reading Location: [facility]--1 Abdomen Ultrasound 05/20/25 11:22 IMPRESSION: Diffuse fatty infiltration of the liver. The liver measures 17.2 cm. No evidence of gallstones. Reading Location: [facility] Abdomen/Pelvis CT 05/20/25 11:22 IMPRESSION: Diffuse fatty infiltration of the liver. Small gallbladder polyps versus tiny gallstones along the dependent portion the gallbladder lumen. Pancreatic calcifications in keeping with chronic pancreatitis. Sigmoid diverticulosis. Small bilateral inguinal hernias containing fat slightly worse on the right side. Diffuse bladder wall thickening. Reading Location: [facility] Discharge Plan Triage Chief Complaint: General Illness ED Provider: Pedro Lizarraga Dx/Rx/DC Orders Clinical Impression: Cough, Transaminitis, History of alcoholic hepatitis Prescriptions: New ondansetron 4 mg tablet,disintegrating 4 mg PO Q6H PRN (Reason: nausea and vomiting) Qty: 20 0RF cephalexin 500 mg capsule 500 mg PO BID Qty: 10 0RF No Action nitroglycerin 0.4 mg tablet, sublingual 0.4 mg SUBLINGUAL Q5M PRN (Reason: Chest Pain) Qty: 25 3RF trazodone 50 mg tablet 100 mg PO QHS magnesium oxide 400 mg (241.3 mg magnesium) tablet 400 mg PO DAILY thiamine HCl (vitamin B1) 100 mg tablet 100 mg PO DAILY folic acid 1 mg tablet 1 mg PO DAILY buspirone 7.5 mg tablet 7.5 mg PO TID carvedilol 25 mg tablet 25 mg PO BID Rx Instructions: must administer with a meal/food lisinopril 10 mg tablet 10 mg PO QDAY ondansetron 4 mg disintegrating tablet 4 mg tablet,disintegrating 0RF benzonatate 200 mg capsule 200 mg PO TID PRN (Reason: cough) Qty: 20 0RF ondansetron HCl 4 mg tablet 4 mg PO Q8H PRN (Reason: nausea and vomiting) Qty: 7 0RF dexamethasone 6 mg tablet 6 mg PO DAILY Qty: 5 0RF azithromycin 250 mg tablet See Rx Instructions PO .COMPLEX Qty: 6 0RF Rx Instructions: For 250 mg dose pack: take 500 mg today (day 1), then 250 mg for 4 days (days 2-5) PO dexamethasone 6 mg tablet 6 mg PO DAILY Qty: 5 0RF omeprazole 20 MG capsule 20 mg PO DAILY Patient Comments: REFLUX cyclobenzaprine 10 mg tablet 10 mg PO DAILY PRN (Reason: Pain) multivitamin [Daily Multi-Vitamin] Tablet 1 tab PO DAILY cyanocobalamin (vitamin B-12) [Vitamin B-12] 100 mcg tablet 100 mcg PO DAILY aspirin 81 mg tablet,delayed release (DR/EC) 81 mg PO DAILY Qty: 90 3RF atorvastatin 40 mg tablet 40 mg PO QHS Qty: 90 3RF Primary Care Provider: Keren Kwon NP Referrals: Keren Kwon NP, [facility] [Primary Care Provider, Medical] Activity Restrictions/Additional Instructions: Use prescriptions as prescribed. Take antibiotics as prescribed. Follow-up your doctor in outpatient setting. Have your liver enzymes repeated in the middle of next week. Your ultrasound and your CT did not show any acute findings. Return with worsening symptoms or any other concerns Print Language: Argentine Disposition Disposition: Home, Self Care
[2025-05-20] MEDS: 0.9% Normal Saline (1000mL) 1,000 ML 999 ML IV ×2 (10:41→12:53)
[2025-05-20 10:46] LABS: Hematocrit 46.0 % (40-54); Hemoglobin 16.1 g/dL (13.0-16.5); Immature Granulocytes Count 0.080 X10^3/uL (0.0-0.0); Mean Corp Hgb Conc 35.0 g/dL (32-36); Mean Corpuscular Volume 91.1 fL (80-94); Mean Platelet Vol. 9.3 fl (6.2-12.0); NRBC Flagged by Analyzer 0 % (0-5); Platelet Count 112 K/mm3 (150-450); RBC Distribution Width CV 12.6 % (11.6-14.6); RBC Distribution Width SD 41.7 fl (35.1-43.9); Red Blood Count 5.05 M/mm3 (4.6-6.2); White Blood Count 10.6 K/mm3 (4.4-11.0)
[2025-05-20 10:54] LABS: Prothrombin Time (Protime)PT. 13.6 SECONDS (11.7-14.9)
[2025-05-20 10:55] LABS: Partial Thromboplast Time 23.7 Seconds (24.1-36.2)
[2025-05-20 11:13] LABS: AST(SGOT) 94 U/L (<=37); Alanine Aminotransfer ALT/SGPT 168 U/L (<=46); Albumin, Serum 4.2 g/dL (3.5-5.0); Alkaline Phosphatase 264 U/L (40-129); Anion Gap 12 (5-15); BUN 29 mg/dL (4-19); BUN/Creat Ratio 20.2 RATIO (10-20); Calcium,Total 9.4 mg/dL (7.6-11.0); Carbon Dioxide 25.1 mmol/L (21.0-32.0); Chloride 92 mmol/L (98-108); Estimated Creatinine Clearance 62.92 ml/min (50-250); Globulin 2.8 g/dL (2.2-4.2); Glucose 101 mg/dL (70-99); Potassium 5.2 mmol/L (3.3-5.1)
--- NOTE | 2025-05-20 11:22 | US_ITS ---
PROCEDURE: US/Abdomen Limited
--- NOTE | 2025-05-20 11:22 | CT_ITS ---
PROCEDURE: CT/Abdomen/Pelvis W IV Cont ONLY
[2025-05-20 11:53] LABS: Mucous, Urine 0 SEEN /hpf (<or=2+); Red Blood Cells-Urine 0 SEEN /hpf (0-5); Squamous Epithelial Cells - UA 0 SEEN /hpf (0-5)
[2025-05-20 12:11] LABS: Color, Urine Amber (Yellow); Glucose, Dipstick Normal (Normal); Ketone-Dipstick 5 mg/dl (Negative); Leukocyte Esterase-Dipstick 25 /ul (Negative); Nitrite-Dipstick Positive (Negative); Occult Blood-Urine Negative /ul (Negative); Protein-Dipstick 30 mg/dl (Negative); Specific Gravity, Urine 1.010 (1.002-1.030); Urine Bilirubin Dipstick 3 mg/dL (Negative)
== END 2025-05-20 14:18 | disposition home or self-care (01) ==
PROVIDERS: Emergency Provider Emergency Medicine; PCP Registered Nurse; Visit Provider Emergency Medicine
DX: R74.01 Elevation of levels of liver transaminase levels (principal); I13.0 Hypertensive heart and chronic kidney disease with heart failure and stage 1 through stage 4 chronic kidney disease, or unspecified chronic kidney disease; I50.9 Heart failure, unspecified; J44.9 Chronic obstructive pulmonary disease, unspecified; I25.10 Atherosclerotic heart disease of native coronary artery without angina pectoris; E78.5 Hyperlipidemia, unspecified; Z87.891 Personal history of nicotine dependence; F41.9 Anxiety disorder, unspecified; N18.9 Chronic kidney disease, unspecified; Z86.73 Personal history of transient ischemic attack (TIA), and cerebral infarction without residual deficits; I25.2 Old myocardial infarction; K21.9 Gastro-esophageal reflux disease without esophagitis; Z79.899 Other long term (current) drug therapy; F32.A Depression, unspecified; Z79.82 Long term (current) use of aspirin; Z95.5 Presence of coronary angioplasty implant and graft; R05.9 Cough, unspecified; Z86.19 Personal history of other infectious and parasitic diseases
CPT/HCPCS: 71046; 74177; 76705; 80053; 81001; 83605; 85025; 85610; 85730; 87040; 87086; 87088; 93005; 96361; 96365; 99284; Q9967